=== PATIENT | male | born 1960 | race Caucasian/White ===

== ENCOUNTER 2023-12-09 15:27 | Outpatient (OUT) | payer SELFPAY | END 2023-12-09 15:28 | disposition home or self-care (01) | LOC: PST 15:28 | PROVIDERS: Visit Provider Urology | DX: Z01.818 Encounter for other preprocedural examination (principal); R33.9 Retention of urine, unspecified; D64.9 Anemia, unspecified; I25.10 Atherosclerotic heart disease of native coronary artery without angina pectoris; I12.9 Hypertensive chronic kidney disease with stage 1 through stage 4 chronic kidney disease, or unspecified chronic kidney disease; N18.9 Chronic kidney disease, unspecified; E11.22 Type 2 diabetes mellitus with diabetic chronic kidney disease ==

== ENCOUNTER 2023-12-19 07:04 | Day surgery (SDC) | payer MEDICARE, SELFPAY ==
[2023-12-19] VITALS (14 sets, daily range): BP systolic 132–175; BP diastolic 59–84; PULSE 68–94; RESP 15–21; TEMP 36–36.1; O2SAT 93–97; BMI 31.8
--- NOTE | 2023-12-19 07:00 | ECG_ITS ---
[facility] Test Date: 2023-12-19 Pat Name: MIKAYLA MORRIS Department: Room: - Gender: Male [employer]: : 1960 Requested By: JORGE HERNANDEZ Order Number: [id number] Reading MD: MAGDALENA LOPEZ Measurements Intervals [place] Rate: 71 P: 19 RI: 133 QRS: -65 QRSD: 143 T: 26 QT: 422 QTc: 459 Interpretive Statements SINUS RHYTHM RIGHT BUNDLE BRANCH BLOCK [120+ ms QRS DURATION, UPRIGHT V1, 40+ ms S IN I/aVL/V4/V5/V6] LEFT ANTERIOR FASCICULAR BLOCK [QRS AXIS <= -45, QR IN I, RS IN II] MINIMAL VOLTAGE CRITERIA FOR LVH, CONSIDER NORMAL VARIANT [MEETS CRITERIA IN ONE OF: R(aVL), S(V1), R(V5), R(V5/V6)+S(V1)] WARNING: DATA QUALITY MAY AFFECT INTERPRETATION No previous ECG available for comparison Electronically Signed On 12-19-2023 21:23:42 EST by MAGDALENA LOPEZ
--- OUTSIDE RECORDS SUMMARY | 2023-12-19 07:15 | XMS_ITS | CCD ---
Author Name Unknown Address [address] [place] [address] Organization [facility] Care Team Providers Care Screener Perfumer Name Role Phone Isis Rincon Perdomo Primary Care Provider Elijah Leon Primary Care Provider Jet Calvillo Unavailable Greyson Dominguez Primary Care Provider Elijah Leon Primary Care Provider [phone] Greyson Dominguez MD Primary Care Provider Greyson Dominguez MD Primary Care Provider Greyson Dominguez MD Primary Care Provider GREYSON DOMINGUEZ Primary Care Unavaila RANDY Mercado Attending Unavailab le Jet Calvillo DPM Unavailable Greyson Dominguez MD Primary Care Provider Greyson Dominguez MD Primary Care Provider Jet Calvillo DPM Unavailable Greyson Dominguez MD Primary Care Provider FATMATA COSBY Attending Unavailable GREYSON DOMINGUEZ Primary Care Unavaila FATMATA Burnette Admitting Unavailable FATMATA COSBY Attending Unavailable GREYSON DOMINGUEZ Primary Care Unavaila ble SHAFIEK, BOLES Admitting Unavailable SHAFIEK, BOLES Attending Unavailable ALBERTO, GREYSON BHATTI Primary Care Unavaila ble JET CALVILLO Referring Unavailable ALBERTO, GREYSON BHATTI Primary Care Unavaila ble [facility] Consulting Abdulkadir FAIRBANKS, RIANA LOPEZ Admitting Unavaila ble CODI, JOHNATHAN HILTON Attending Unavailable MIREYA, JORGE FERRIS Consulting Unavailable KUSURILEY, RAKESH LUCIA Consulting Unavailable SHAFIEK, BOLES Admitting Unavailable SHAFIEK, BOLES Attending Unavailable ALBERTO, GREYSON BHATTI Primary Care Unavaila ble SHAFIEK, BOLES Admitting Unavailable SHAFIEK, BOLES Attending Unavailable ALBERTO, GREYSON BHATTI Primary Care Unavaila ble SHAFIEK, BOLES Admitting Unavailable SHAFIEK, BOLES Attending Unavailable ALBERTO, GREYSON BHATTI Primary Care Unavaila ble SHAFIEK, BOLES Admitting Unavailable SHAFIEK, BOLES Attending Unavailable ALBERTO, GREYSON BHATTI Primary Care Unavaila ble SHAFIEK, BOLES Admitting Unavailable SHAFIEK, BOLES Attending Unavailable ALBERTO, GREYSON BHATTI Primary Care Unavaila ble KATHY, ASOK Referring Unavailable ALBERTO, GREYSON Primary Care Unavailable STOYA MAGDALENA~[id number], [facility] MAGDALENA~[id number] TANJA Attending Unavailable ALBERTO, GREYSON Primary Care Unavailable ALBERTO, GREYSON Primary Care Unavailable MAGDALENA MCCULLOUGH Attending Unavailable KATHY, ASOK Attending Unavailable ALBERTO, GREYSON Primary Care Unavailable Greyson Dominguez MD Primary Care Provider Greyson Dominguez MD Primary Care Provider CAROL SANON Attending Unavailabl DO PAUL Arguelles Emergency Provider [phone] GREYSON DOMINGUEZ Primary Care Provider [phone] DO PAUL HOWELL Emergency Provider GREYSON DOMINGUEZ Primary Care Provider [phone] DO CRISTIAN NYE Emergency Provider [phone] MD MARILIN BUCKLEY Other Provider Greyson Dominguez MD Primary Care Provider ZACHERY COOMBS Attending Unavailable BLAIR WILLINGHAM Admitting Unavailable ALBERTO, GREYSON Primary Care Unavailable BLADE, FLSAH C Consulting Unavailable BLADE, FLASH C Consulting Unavailable LEON, DEREN Consulting Unavailable LEON, DEREN Consulting Unavailable SAMAYOA-VINCENT, BRENDA E Consulting Unava ilable SAMAYOA-VINCENT, BRENDA E Consulting Unava ilable WUBISHET, TIN M Consulting Unavailable WUBISHET, TIN M Consulting Unavailable LEON, DEREN Referring Unavailable ALBERTO, GREYSON Primary Care Unavailable SUDHA MONSONUGBENGA F Referring Unavailable ALBERTO, GREYSON Primary Care Unavailable [facility], [facility] U Referring Unavailable ALBERTO, GREYSON Primary Care Unavailable ALBERTO, GREYSON Primary Care Unavailable Maureen HUITRONRA Admitting Unavailable NASREEN, MARCH U Attending Unavailable AMADO ALEXIS Referring Unavaila SHIN Rodriguez Consulting Unavailable SHIN EASON Consulting Unavailable URVASHI DONOVAN Consulting Unavailable URVASHI DONOVAN Consulting Unavailable DO JENSIE CORRALES Emergency Provider [phone] Zogolden DPJet Scott Unavailable Alberto GAMEZ, Greyson Bhatti Primary Care Provider PCP, NONE Referring Unavailable LOUIS POWER Attending Unavailable SHIN QUEEN Attending Unavailable GREYSON DOMINGUEZ Primary Care Unavaila anil Urban MD, Dr Farr Attending Physician [phone] Unavailable Primary Care Provider UnavailCRISTIAN Hu Attending Unavailable BESSIE, [facility] Primary Care Unavailable PAUL HOWELL Attending Unavailable PAUL HOWELL Primary Care Unavailable Micheal URBAN YORDAN Referring Unavailable URBANMicheal YORDAN Attending Unavailable URBANMicheal Attending Unavailable URBANMicheal Attending Unavailable URBAN L YORDAN Attending Unavailable URBANMicheal Attending Unavailable MARILIN BUCKLEY Attending Unavailable MARILIN BUCKLEY Referring Unavailable URBANMicheal Referring Unavailable URBANMicheal Attending Unavailable Micheal URBAN YORDAN Referring Unavailable URBANMicheal Attending Unavailable JENISE CORRALES Attending Unavailable CASH, HUM Primary Care Unavailable 2, SCRIPTING Attending Unavailable Daanthony, Elza Attending Unavailable SAUD BALDWIN Attending Unavailable EMELY Bean Attending Unavailable EMELY Bean Attending Unavailable EMELY Bean Attending Unavailable EMELY Bean Attending Unavailable MEGHA PARK Attending Unavailable MEGHA PARK Attending Unavailable MEGHA PARK Attending Unavailable MYA CARDENAS Attending Unavailable RICARDA, STEVEI A Primary Care Physician [phone] Ricarda, Itri A Unavailable Ricarda, Dr. Koroma A Primary Care Unavailable Dr. Koby Guillen Referring Unavailable Miki Bauer Attending Unavailable Jayme De Referring Unavailable Jayme De Attending Unavailable Dr. Lauren Chowdary Primary Care Unavailable Ricarda, Dr. Koroma A Primary Care Unavailable Micki Johnston Unavailable Unavailable Lauren Chowdary MD Primary Care Provider MIKI BAUER Attending Unavailable RICARDA, LAUREN A Primary Care Unavailable MIKI BAUER Attending Unavailable RICARDA, ITRI A Primary Care Unavailable JAYME DE Attending Unavailable RICARDA, LAUREN A Primary Care Unavailable MIKI BAUER Attending Unavailable RICARDA, STEVEI A Primary Care Unavailable NONE, XXXX Referring Unavailable Tanya Rubin X Attending Unavailable Scottie Bashar X Admitting Unavailable Kaden LOPSE Referring Unavailable Kaden OLPES Attending Unavailable Kaden LOPES Admitting Unavailable Akkina, Jose Referring Unavailable Akkina Jose Attending Unavailable Akkina, Jose Admitting Unavailable Al-Marrawi, Celid Yaser Attending Unavailabl e Al-Marrawi, Celid Yaser Attending Unavailabl e Al-Marrawi, Mhd Yaser Attending Unavailabl e Al-Marrawi, Mhd Yaser Admitting Unavailabl e Al-Marrawi, Mhd Yaser Referring Unavailabl e Al-Marrawi, Mhd Yaser Admitting Unavailabl e Al-Marrawi, Mhd Yaser Attending Unavailabl e Al-Marrawi, Mhd Yaser Attending Unavailabl e Al-Marrawi, Mhd Yaser Admitting Unavailabl e Kaden LOPES Attending Unavailable Corina RENNER Attending Unavailable Mark, Giang Consulting Unavailable William BAER Admitting Unavailable MD Padmaja Flores Consulting Unavailable Flores, Padmaja Consulting Unavailable Flores, Padmaja Consulting Unavailable Flores, Giang Consulting Unavailable Flores, Giang Consulting Unavailable Flores, Giang Consulting Unavailable Flores, Giang Consulting Unavailable Flores, Giang Consulting Unavailable Flores, Giang Consulting Unavailable Pako Moandrewhaf Consulting Unavailable MD Jayme De Consulting Unavailab le Traboulthea, Cosmef Consulting Unavailable Trabouldeepthii, Mourhaf Consulting Unavailable Trabouldeepthii, Mourhaf Consulting Unavailable Trabouldeepthii, Mourhaf Consulting Unavailable Traboulthea, Cosmef Consulting Unavailable Trabcara, Cosmef Consulting Unavailable Trabouldeepthii, Moandrewhaf Consulting Unavailable Jolene Gleason Attending Unavailable Kaden LOPES Attending Unavailable Paul Yanes Attending Unavailable Rebekah Patle Admitting Unavailable Akkina, Jose Consulting Unavailable MD Jose Cantu Consulting Unavailable Akkina, Jose Consulting Unavailable Akkina, Jose Consulting Unavailable Akkina, Jose Consulting Unavailable Akkina, Jose Consulting Unavailable Akkina, Jose Consulting Unavailable Akkina, Jose Consulting Unavailable Akkina, Jose Consulting Unavailable Rafi Castrejon Consulting Unavailable Masoud Castrejon Consulting Unavailable Lucía, Rafi S Consulting Unavailable Lucía, Rafi S Consulting Unavailable Blank, Rafi S Consulting Unavailable Blank, Rafi S Consulting Unavailable Blank, Rafi S Consulting Unavailable Blank, Rafi S Consulting Unavailable Blank, Rafi S Consulting Unavailable Lucía, Rafi Robles Consulting Unavailable Paul BENNETT Attending Unavailable Paul BENNETT Admitting Unavailable Rafi Blackman Consulting Unavailable DO Luisito KELLEY Admitting Unavailabl William Craig Attending Unavailable DO Rafi Blackman Consulting Unavailable BAKARI STOVER Consulting Unavailable Yehuda, Rafi Duffy Consulting Unavailable Blackman, Rafi T Consulting Unavailable Blackman, Rafi T Consulting Unavailable Blackman, Rafi T Consulting Unavailable Blackman, Rafi T Consulting Unavailable Blackman, Rafi T Consulting Unavailable Blackman, Rafi T Consulting Unavailable Blackman, Rafi T Consulting Unavailable Yehuda, Rafi Duffy Consulting Unavailable Giorgio Villasenor Attending Unavailable Brian Perla Attending Unavailabl e NONE, XXXX Referring Unavailable Al-Brian Quiñones Attending Unavailabl e Al-Marrazhanna, Brian Rivas Attending Unavailabl e KURUPMATEOEE K Admitting Unavailable KURUPMIKI K Attending Unavailable RICARDA, ITRI A Primary Care Unavailable KURUP MIKI K Admitting Unavailable KURUP, MIKI K Attending Unavailable LAUREN CHODWARY Primary Care Unavailable Allergies Allergy Classification Reported Allergen(s) Allergy Type Date of Onset Reaction(s) Facility Anti-Epileptic Agents (1 source) Phenytoin Drug Allergy 6 Low blood pressure, Rash, Unknown [facility] (20 sources) Phenytoin; Translations: [PHENYTOIN] Drug Allergy 6 Rash, Low blood pressure, Unknown, Unknown (qualifier value), Other [facility] (9 sources) Phenytoin; Translations: [PHENYTOIN SODIUM] Drug Allergy 5 [facility] (1 source) Phenytoin; Translations: [PHENYTOIN SODIUM EXTENDED] Drug Allergy 2 [facility] Repository (5 sources) Valproate; Translations: [DIVALPROEX] Drug Allergy 2 Unknown, Other [facility] (2 sources) Phenytoin; Translations: [Dilantin] Drug Allergy 2 Unknown [facility] Work Phone: (2 sources) Valproate; Translations: [Depakote] Drug Allergy 2 Unknown Dept of [facility] Work Phone: (1 source) Phenytoin Drug Allergy 2 [facility] Repository (13 sources) Valproate; Translations: [divalproex sodium] Drug Allergy Unknown (qualifier value) [facility] Medications Current Medications Medication Drug Class(es) Dates Sig (Normalized) Sig (Original) acetaminophen 325 mg oral tablet (20 sources) Start: 10-11-2023 take 2 tablets by mouth every six hours as needed acetaminophen 325 mg Tab 650 mg = 2 tab(s), Oral, q6hr, PRN Other (see comment), Refills(s) 0 Start Date: 10/11/23 Status: Ordered Start: 03-03-2023 take 2 tablets by mo uth every four hours as needed for pain acetaminophen 325 mg Tab 650 mg = 2 tab(s), Oral, q4hr, PRN Pain/Fever, Refills(s) 0 Start Date: 03/03/23 Status: Ordered Start: 12-12-2022 take 650 mg by mouth every six hours as needed for pain Acetaminophen Oral (discharge) [id number] RxNorm 2022-12-12 Oral 650 milligram every 6 hours prn fever or pain Active Start: 09-11-2022 End: 09-14-2022 take 4 g rectal route every twenty-four hours 650 mg, rectal, Every 4 hours PRN, general discomfort or temperature greater than 100.4 degrees F. *Do not exceed 4 grams in 24 hours*, Starting on Sat09/11/22 at 0338 Give DE if unable to administer by mouth or feeding tube. Start: 09-11-2022 End: 09-14-2022 take 4 g by mouth every twenty-four hours 650 mg, oral, Every 4 hours PRN, fever, general discomfort or temperature greater than 100.4 degrees F. May give rectal suppository if npo. *Do not exceed 4 grams in 24 hours*, Starting on Sat09/11/22 at 0338 Start: 09-11-2022 End: 09-14-2022 take 4 g by mouth every twenty-four hours 650 mg, oral, Every 4 hours PRN, general discomfort or temperature greater than 100.4 degrees F. May give rectal suppository if npo. *Do not exceed 4 grams in 24 hours*, Starting on Sat09/11/22 at 0338 Start: 09-10-2022 End: 09-10-2022 acetaminophen (Tylenol) tabl et 1,000 mg Start: 09-08-2022 take 2 capsules by m outh every six hours Acetaminophen (Tylenol) 325 mg Capsule Active 650 MG PO Q6H September 07, 2022 11:00pm Start: 05-02-2022 End: 06-29-2022 take 4 g rectal route every twenty-four hours 650 mg, rectal, Every 4 hours PRN, general discomfort or temperature greater than 100.4 degrees F. *Do not exceed 4 grams in 24 hours*, Starting on Sat05/02/22 at 2144 Give DE if unable to administer by mouth or feeding tube. Start: 05-02-2022 End: 06-29-2022 take 4 g by mouth every twenty-four hours 650 mg, oral, Every 4 hours PRN, fever, general discomfort or temperature greater than 100.4 degrees F. May give rectal suppository if npo. *Do not exceed 4 grams in 24 hours*, Starting on Sat05/02/22 at 2144 Start: 05-02-2022 End: 06-29-2022 take 4 g by mouth every twenty-four hours 650 mg, oral, Every 4 hours PRN, general discomfort or temperature greater than 100.4 degrees F. May give rectal suppository if npo. *Do not exceed 4 grams in 24 hours*, Starting on Sat05/02/22 at 2144 Start: 05-02-2022 End: 05-02-2022 take 650 mg by mouth once 650 mg, oral, Once, On Sat at 0025, For 1 dose Start: 01-09-2022 End: 01-17-2022 take 1 tablet by mouth every four hours as needed for pain and headache 650 mg, Oral, Every 4 hours PRN, mild pain, fever 100.4 F or greater, headaches, Starting on Sat01/09/22 at 1634 Start: 10-19-2020 End: 10-22-2020 take 1 tablet by mouth every four hours as needed 650 mg, Oral, Every 4 hours PRN, mild pain, fever 100.4 F or greater, headaches, Starting Sat10/19/20 at 1853 Start: 10-19-2020 End: 10-19-2020 acetaminophen (TYLENOL) tabl et 975 mg Start: 07-26-2020 End: 08-06-2020 take 1 tablet by mouth every four hours as needed 650 mg, Oral, Every 4 hours PRN, mild pain, fever 100.4 F or greater, headaches, Starting Sat07/26/20 at 1405 take 1 tablet by angela th every eight hours for pain acetaminophen (Tylenol 8 HOUR) 650 mg ER tablet Take 650 mg by mouth every 8 (eight) hours if needed for mild pain. Do not crush, chew, or split. 0 Active End: 01-17-2022 take 2 tablets by mouth every six hours as needed for pain and fever acetaminophen (TYLENOL) 325 MG tablet Take 650 mg by mouth every 6 (six) hours as needed for pain or fever . 0 Active acetaminophen 325 mg / HYDROcodone bitartrate 5 mg oral tablet (20 sources) Opioid Agonist Start: 03-03-2023 End: 05-03-2023 [place] 325 mg-5 mg oral tablet 1 tab(s), Oral, q4hr for pain for 3 day(s), 12 tab(s), Refill(s) 0 Start Date: 03/03/23 Stop Date: 03/06/23 Status: Ordered Start: 12-12-2022 take 1 tablet by angela th every four hours as needed for pain Hydrocodone-Acetaminophen Oral 5 mg-325 mg (discharge) [id number] RxNorm 2022-12-12 Oral 1 tablet every 4 hours prn pain Active Start: 09-10-2022 End: 09-14-2022 take 1 tablet by mouth every six hours as needed 1 tablet, oral, Every 6 hours PRN, sever e pain, moderate pain, Starting on 09/10/22 at 1310 Start: 09-08-2022 End: 09-14-2022 take 1 tablet by mouth every four hours Hydrocodone-Acetaminophen ([place]) 5-325 mg Tablet Active 1 TAB PO Q4H September 07, 2022 11:00pm Start: 05-04-2022 End: 05-16-2022 take 1 tablet by mouth twice daily as needed for pain 1 tablet, oral, 2 times daily PRN, sever e pain, Starting on Sat05/04/22 at 1547 Start: 05-15-2021 End: 05-02-2022 Start: 01-05-2021 HYDROcodone-ac etaminophen ([place]) 5-325 mg tablet Start: 08-15-2020 End: 08-15-2020 take 1 tablet by mouth every four hours as needed HYDROcodone-acetaminophen (NORCO) 5-325 mg per tablet 1 tablet Start: 07-26-2020 End: 01-17-2022 take 1 tablet by mouth every six hours for pain HYDROcodone-acetaminophen ([place]) 5-325 mg tablet Indications: Amputation, below knee, unilateral, traumatic, right, initial encounter Take 1 tablet by mouth every 6 (six) hours if needed for moderate pain. 20 tablet 0 05/15/2021 Active End: 10-17-2020 take 1 tablet by mouth every twenty-four hours HYDROcodone-acetaminophen (NORCO) 5-325 mg per tablet 1 Unspecified daily . 0 10/17/2020 Discontinued (Error) acetaminophen 325 mg / oxyCODONE hydrochloride 5 mg oral tablet (17 sources) Opioid Agonist Start: 01-17-2022 End: 09-10-2022 take 1 tablet by mouth every six hours as needed for pain oxyCODONE-acetaminophen (PERCOCET) 5-325 mg per tablet Take 1 tablet by mouth every 6 (six) hours as needed for pain . 0 01/17/2022 Active Start: 01-17-2022 oxyCODONE-acet aminophen (PERCOCET) 5-325 mg per tablet Start: 01-17-2022 aluminum hydroxide 80 mg/ml / magnesium hydroxide 80 mg/ml / simethicone 8 mg/ml oral suspension (5 sources) Start: 09-08-2022 take 1 mL by mouth once daily Alum-Mag Hydroxide-Simeth (Mag-Al Plus Extra Strength) 400-400-40 mg/5 mL Suspension Active 30 ML PO Daily September 07, 2022 11:00pm Start: 01-09-2022 End: 01-17-2022 take 30 mL by mouth every four hours as needed 30 mL, Oral, Every 4 hours PRN, indigestion, Starting on Sat01/09/22 at 1634 Start: 07-27-2020 End: 08-06-2020 aluminum-magnesium hydroxide-simethicone (MAALOX PLUS) 200-200-20 mg/5 mL suspension 30 mL amLODIPine 5 mg oral tablet (20 sources) Dihydropyridine Calcium Channel Alan Start: 09-08-2022 take 1 tablet by mouth once daily Amlodipine (Norvasc) 5 mg Tablet Active 5 MG PO Daily September 07, 2022 11:00pm Start: 05-02-2022 End: 06-29-2022 take 10 mg by mouth once daily 10 mg, oral, Daily RT, First dose on Sat05/03/22 at 0800 Start: 08-15-2020 End: 08-15-2020 amLODIPine (NORVASC) tablet 10 mg Start: 08-04-2020 End: 09-10-2022 take 1 tablet by mouth once daily amLODIPine (Norvasc) 10 mg tablet Take 10 mg by mouth 1 (one) time each day. 0 08/07/2020 09/10/2022 Discontinued (Pharmacy Med Rec) amoxicillin 500 mg oral capsule (6 sources) Penicillin-class Antibacterial Start: 10-11-2023 End: 10-21-2023 take 1 capsule by mouth three times daily amoxicillin 500 mg Cap 500 mg = 1 cap(s), Oral, TID, X 10 day(s), Refills(s) 0 Start Date: 10/11/23 Stop Date: 10/21/23 Status: Ordered Start: 03-29-2022 amoxicillin (A MOXIL) 500 MG capsule Artificial Tears (12 sources) Start: 03-03-2023 Artificial Tea rs 1 drop(s), OPTH, QID, Refill(s) 0 Start Date: 03/03/23 Status: Ordered aspirin 81 mg delayed release oral tablet (20 sources) Platelet Aggregation Inhibitor, Nonsteroidal Anti-inflammatory Drug Start: 03-03-2023 take 1 tablet by mouth once daily aspirin 81 mg Oral EC Tab 81 mg = 1 tab(s), Oral, Daily, Refills(s) 0 Start Date: 03/03/23 Status: Ordered Start: 12-12-2022 take 81 mg by mouth once daily Aspirin Oral (discharge) [id number] RxNorm 2022-12-12 Oral 81 milligram daily Active Start: 09-08-2022 take 81 mg by mouth once Aspir in Active 81 MG PO Once September 07, 2022 11:00pm Start: 05-02-2022 End: 06-29-2022 take 81 mg by mouth once daily 81 mg, oral, Daily, Fir st dose on Sat05/03/22 at 0900 Do not crush, chew, or split. Start: 01-09-2022 End: 01-17-2022 take 81 mg by mouth once daily 81 mg, Oral, Daily, Fir st dose on Sat01/09/22 at 1700 DO NOT CRUSH OR CHEW. Start: 10-31-2020 aspirin 81 mg chewable tablet aspirin 81 mg chewable tablet 81 mg. 0 10/31/2020 Active 0 10/31/2020 Active atorvastatin 80 mg oral tablet (20 sources) HMG-CoA Reductase Inhibitor Start: 03-01-2023 take 1 tablet by mouth at bedtime atorvastatin 80 mg Tab 80 mg = 1 tab(s), Oral, Bedtime, # 90 tab(s), Refills(s) 0 Start Date: 03/01/23 Status: Ordered Start: 12-12-2022 take 80 mg by mouth once daily Lipitor Oral (discharge) [id number] RxNorm 2022-12-12 Oral 80 milligram daily Active Start: 01-09-2022 End: 01-17-2022 take 80 mg by mouth once daily 80 mg, Oral, Nightly, F irst dose on Sat01/09/22 at 2100 Start: 01-03-2021 take 1 tablet by angela th at bedtime Atorvastatin (Lipitor) 80 mg Tablet Active 80 MG PO Bedtime September 07, 2022 11:00pm Start: 10-19-2020 End: 10-22-2020 take 80 mg by mouth once daily 80 mg, Oral, Nightly, F irst dose on Sat10/19/20 at 2100 Start: 08-15-2020 End: 08-15-2020 atorvastatin (LIPITOR) table t 20 mg End: 11-12-2023 take 1 tablet by mouth once daily atorvastatin (Lipitor) 10 mg tablet Take 1 tablet (10 mg) by mouth once daily. 0 11/12/2023 Discontinued (Other) End: 08-15-2020 take 1 tablet by mouth once daily atorvastatin (LIPITOR) 20 MG tablet Take 20 mg by mouth daily. 0 08/15/2020 Discontinued (Error) bisacodyl 10 mg rectal suppository (20 sources) Stimulant Laxative Start: 10-06-2023 take 10 mg rectal route once daily as needed for constipation Dulcolax 10 mg Supp 10 mg = 1 supp, Rectal, Daily, PRN for constipation, # 10 supp, Refills(s) 0 Start Date: 10/06/23 Status: Ordered Start: 01-18-2022 End: 01-18-2022 take 30 mL rectal route once bisacodyL (FLEET BISACODY L) 10 mg/30 mL enema Insert 30 mL (10 mg total) into the rectum 1 (one) time for 1 dose. 30 mL 0 01/18/2022 01/18/2022 Start: 07-27-2020 End: 08-06-2020 bisacodyL (DULCOLAX) supposi tory 10 mg take 10 mg rectal ro ludwin every twenty-four hours as needed bisacodyL (FLEET) 10 mg/30 mL Enem Insert 10 mg into the rectum once as needed . 0 Active blood-glucose meter Misc (20 sources) Start: 08-06-2020 blood-glucose meter Misc Check your sugars up to 4 times a day . 1 each 0 08/06/2020 Start: 08-06-2020 blood-glucose meter Misc Check your sugars up to 4 times a day . 1 each 0 08/06/2020 Active carboxymethylcellulose sodium 10 mg/ml ophthalmic solution (3 sources) Start: 09-08-2022 Carboxymethylcellulose Sodium Active 1 DRP OPTH 2 times per day September 07, 2022 11:00pm cefdinir 300 mg oral capsule (1 source) Cephalosporin Antibacterial Start: 03-04-2023 End: 03-16-2023 take 1 capsule by mouth every twelve hours cefdinir 300 mg Cap 300 mg = 1 cap(s), Oral, q12hr, X 12 day(s), # 24 cap(s), Refills(s) 0 Start Date: 03/04/23 Stop Date: 03/16/23 Status: Ordered cephalexin 500 mg oral capsule (20 sources) Cephalosporin Antibacterial Start: 10-15-2021 End: 10-22-2021 take 1 capsule by mouth four times daily cephalexin (KEFLEX) 500 mg capsule Take 1 capsule (500 mg total) by mouth 4 (four) times a day for 7 days. 28 each 0 10/15/2021 10/22/2021 Active Start: 10-22-2020 End: 11-02-2020 take 1 capsule by mouth twice daily cephALEXin (KEFLEX) 500 MG capsule Take 1 (one) capsule (500 mg total) by mouth 2 (two) times a day for 11 days . 22 capsule 0 10/22/2020 11/02/2020 Active Start: 10-22-2020 End: 10-22-2020 cephALEXin (KEFLEX) capsule 500 mg Start: 10-17-2020 End: 10-24-2020 take 1 capsule by mouth three times daily cephALEXin (KEFLEX) 500 MG capsule Take 1 (one) capsule (500 mg total) by mouth 3 (three) times a day for 7 days . 21 capsule 0 10/17/2020 10/19/2020 Discontinued Start: 08-06-2020 End: 09-05-2020 take 1 capsule by mouth four times daily cephALEXin (KEFLEX) 500 MG capsule Take 1 (one) capsule (500 mg total) by mouth 4 (four) times a day . 120 capsule 0 08/06/2020 09/05/2020 Active ciprofloxacin 500 mg oral tablet (2 sources) Quinolone Antimicrobial Start: 10-11-2023 End: 10-21-2023 take 1 tablet by mouth twice daily ciprofloxacin 500 mg Tab 500 mg = 1 tab(s), Oral, BID, X 10 day(s), # 20 tab(s), Refills(s) 0 Start Date: 10/11/23 Stop Date: 10/21/23 Status: Ordered clotrimazole 10 mg/ml topical cream (1 source) Azole Antifungal Start: 03-01-2023 End: 03-06-2023 clotrimazole Top 1% Crm 1 manuel, Topical, BID, 60 gram, Refill(s) 0 Start Date: 03/01/23 Stop Date: 03/06/23 Status: Ordered cyanocobalamin, vitamin B-12, (VITAMIN B-12 ORAL) (20 sources) take 1 tablet by mouth once daily cyanocobalamin, vitamin B-12, (VITAMIN B-12 ORAL) Take 1 tablet by mouth daily . 0 Active take 1 tablet by mouth once marlyn y cyanocobalamin, vitamin B-12, (VITAMIN B-12 ORAL) Take 1 tablet by mouth daily . 0 Suspended cyclobenzaprine hydrochloride 5 mg oral tablet (11 sources) Muscle Relaxant Start: 05-05-2023 take 1 tablet by mouth twice daily as needed for muscle spasms cyclobenzaprine 5 mg Tab 5 mg, Oral, BID, PRN Spasm, Refills(s) 0 Start Date: 05/05/23 Status: Ordered take 0.5 tablet by m out three times daily as needed for muscle spasms cyclobenzaprine (Flexeril) 10 mg tablet Take 0.5 tablets (5 mg) by mouth 3 times a day as needed for muscle spasms. 0 Active Cymbalta 30 mg Cap-DR (12 sources) Start: 03-01-2023 take 1 capsule by mouth once daily Cymbalta 30 mg Cap-DR = 1 cap(s), Oral, Daily, Refills(s) 0 Start Date: 03/01/23 Status: Ordered Cymbalta 60 mg Cap-DR (12 sources) Start: 03-01-2023 take 1 capsule by mouth once daily Cymbalta 60 mg Cap-DR = 1 cap(s), Oral, Daily, (do not crush or chew), # 30 cap(s), Refills(s) 0 Start Date: 03/01/23 Status: Ordered dextran 70 1 mg/ml / glycerin 2 mg/ml / hypromellose 3 mg/ml ophthalmic solution (1 source) Plasma Volume Controls Project Engineer, Non-Standardized Chemical Allergen Start: 03-03-2023 take 1 drop(s) into the eye(s) four times daily artificial tears, dextran-hypomel- glycerin, 0.1-0.3-0.2 % ophthalmic solution 1 drop(s), OPTH, QID, Refill(s) 0 0 03/03/2023 Active diclofenac sodium 0.01 mg/mg topical gel (19 sources) Nonsteroidal Anti-inflammatory Drug Start: 01-18-2022 End: 09-10-2022 diclofenac (VOLTAREN) 1 % topical gel docusate sodium 100 mg oral capsule (20 sources) Start: 03-01-2023 take 1 capsule by mouth twice daily docusate sodium 100 mg Cap 100 mg = 1 cap(s), Oral, BID, # 20 cap(s), Refills(s) 0 Start Date: 03/01/23 Status: Ordered Start: 12-12-2022 take 100 mg by mouth twice kayla ly Docusate Sodium Oral (discharge) [id number] RxNorm 2022-12-12 Oral 100 milligram 2 times per day Active Start: 09-08-2022 End: 09-14-2022 take 100 mg by mouth twice daily as needed for constipation 100 mg, oral, 2 times daily PRN, constipation prevention, Starting on Sat09/11/22 at 0338 Bowel Regimen - for prevention of constipation. Start: 05-31-2022 End: 06-29-2022 take 100 mg by mouth twice daily for constipation 100 mg, oral, 2 times daily, First dose (after last modification) on Sat05/31/22 at 0900 Bowel Regimen - for prevention of constipation. take 1 capsule by mo uth in the morning docusate sodium (Colace) 50 mg capsule Take 50 mg by mouth in the morning and 50 mg before bedtime. 0 Active doxycycline hyclate 100 mg oral tablet (4 sources) Tetracycline-class Drug Start: 07-03-2021 End: 05-02-2022 take 1 tablet by mouth twice daily doxycycline hyclate (VIBRA-TABS) 100 MG tablet Take 1 (one) tablet (100 mg total) by mouth 2 (two) times a day for 10 days . 20 tablet 0 01/17/2022 01/27/2022 Active DULoxetine 60 mg delayed release oral capsule (20 sources) Serotonin and Norepinephrine Reuptake Inhibitor Start: 03-01-2023 take 1 capsule by mouth once daily DULoxetine (Cymbalta) [address] capsule = 1 cap(s), Oral, Daily, (do not crush or chew), # 30 cap(s), Refills(s) 0 0 03/01/2023 Active Start: 12-12-2022 take 60 mg by mouth twice marlyn y Duloxetine Oral Delayed Release (discharge) [id number] RxNorm 2022-12-12 Oral Delayed Release 60 milligram 2 times per day Active Start: 05-02-2022 End: 06-29-2022 take 90 mg by mouth once daily 90 mg, oral, Nightly, F irst dose on Sat05/02/22 at 2200 Do not crush or chew. Start: 01-09-2022 End: 01-17-2022 take 90 mg by mouth at bedtime 90 mg, Oral, At bedtime , First dose on Sat01/09/22 at 2100 DO NOT CRUSH OR CHEW. Start: 12-31-2021 take 1 capsule by mo sdh once daily DULoxetine (Cymbalta) [address] capsule = 1 cap(s), Oral, Daily, Refills(s) 0 0 03/01/2023 Active End: 11-12-2023 take 1 capsule by mouth in the morning DULoxetine (Cymbalta) [address] capsule Take 20 mg by mouth in the morning and 20 mg before bedtime. Do not crush or chew. . 0 11/12/2023 Discontinued (Other) End: 05-02-2022 take 1 capsule by mouth once daily Cymbalta 60 MG Oral Capsule Delayed Release Particles TAKE 1 CAPSULE Daily Quantity: 0 Refills: 0 Ordered: 25-Apr-2023 DO Active DULoxetine 30 mg CDRS Take 30 mg by mouth at bedtime Along with 60 mg to make 90mg at bedtime . 0 Active End: 09-10-2022 take 3 capsules by mouth once daily DULoxetine (Cymbalta) [address] capsule Take 90 mg by mouth every night. 0 09/10/2022 Discontinued (Pharmacy Med Rec) ferrous sulfate 325 mg delayed release oral tablet (20 sources) Start: 05-05-2023 take 1 tablet by mouth once daily ferrous sulfate 325 mg oral enteric coated tablet 325 mg, Oral, Daily, Refills(s) 0 Start Date: 05/05/23 Status: Ordered Start: 05-03-2022 End: 06-29-2022 take 325 mg by mouth once daily at breakfast 325 mg, oral, Daily with breakfast, First dose on Blanca 05/03/22 at 0800 Do not crush, chew, or split. Indications: iron deficiency anemia Start: 01-14-2022 End: 02-26-2022 take 1 tablet by mouth once daily ferrous sulfate 325 (65 FE) MG tablet Take 1 tablet by mouth daily . 0 01/17/2022 Active End: 09-10-2022 take 1 tablet by mouth once daily ferrous sulfate 325 mg (65 mg iron) tablet Indications: iron deficiency anemia Take 65 mg by mouth 1 (one) time each day. 0 09/10/2022 Discontinued (Pharmacy Med Rec) fosfomycin 3000 mg powder for oral solution (1 source) Start: 04-30-2023 End: 04-30-2023 fosfomycin 3 g Oral Pwdr 3 gm, 1 EA, Oral, Once, 1 EA, Refill(s) 0, Give 1 dose on 04/30/2023 Start Date: 04/30/23 Stop Date: 04/30/23 Status: Ordered gabapentin 300 mg oral capsule (20 sources) Anti-epileptic Agent Start: 03-01-2023 take 1 capsule by mouth once daily at bedtime gabapentin 300 mg Cap 300 mg = 1 cap(s), Oral, Once a day (at bedtime), # 30 cap(s), Refills(s) 0 Start Date: 03/01/23 Status: Ordered Start: 05-06-2022 End: 05-18-2022 take 300 mg by mouth three times daily 300 mg, oral, 3 times daily, First dose (after last modification) on 05/06/22 at 2100 Start: 05-15-2021 End: 11-12-2023 take 100 mg by mouth once daily 100 mg, oral, Daily, F irst dose on 05/19/22 at 0900 Start: 10-22-2020 End: 09-14-2022 take 300 mg by mouth at bedtime Gabapentin Active 300 MG PO Bedtime September 07, 2022 11:00pm Start: 10-19-2020 End: 10-21-2020 take 300 mg by mouth every eight hours 300 mg, Oral, Every 8 hours scheduled, First dose on Sat10/19/20 at 2200 Start: 08-15-2020 End: 08-15-2020 gabapentin (NEURONTIN) capsu le 300 mg Start: 07-30-2020 End: 10-22-2020 gabapentin (NEURONTIN) 300 M G capsule Take 1 (one) capsule (300 mg total) by mouth every 8 (eight) hours (Days supply per fill: 30) . 90 capsule 0 08/06/2020 10/22/2020 Discontinued (Reorder) Gabapentin 300 M G TABS TAKE 1 TABLET Bedtime Quantity: 0 Refills: 0 Ordered: 25-Apr-2023 DO Active take 1 capsule by [facility] at bedtime gabapentin (NEURONTIN) 300 MG capsule Take 300 mg by mouth at bedtime . 0 Active glipiZIDE er 10 mg 24 hr extended release oral tablet (20 sources) Sulfonylurea Start: 12-31-2021 glipiZIDE (GLU COTROL XL) 10 mg 24 hr tablet Start: 01-03-2021 End: 09-10-2022 take 1 tablet by mouth once daily glipiZIDE XL (Glucotrol XL) 10 mg 24 hr tablet Take 10 mg by mouth 1 (one) time each day. 0 01/03/2021 09/10/2022 Discontinued (Pharmacy Med Rec) Start: 01-03-2021 glipiZIDE XL ( Glucotrol XL) 10 mg 24 hr tablet Start: 08-06-2020 End: 08-06-2020 take 1 tablet by mouth once daily in the morning glipiZIDE (GLUCOTROL XL) 10 MG 24 hr tablet Take 1 (one) tablet (10 mg total) by mouth every morning . 30 tablet 0 08/06/2020 08/06/2020 Discontinued (Stop Taking at Discharge) Glycerin (Adult) Suppository (discharge) (1 source) Start: 12-12-2022 Glycerin (Adult) Suppository (discharge) 0 RxNorm 2022-12-12 Suppository 1 suppository daily prn constipation Active 12 hr guaiFENesin 600 mg extended release oral tablet (18 sources) End: 09-10-2022 take 1 tablet by mouth twice daily as needed for congestion, then take 1 tablet by mouth every twelve hours as needed for congestion guaiFENesin (MUCINEX) 600 mg 12 hr tablet Take 600 mg by mouth 2 (two) times a day as needed for congestion . 0 Active hydrocortisone 10 mg/ml topical cream (18 sources) Corticosteroid End: 09-10-2022 hydrocortisone 1 % cream Apply topically 2 (two) times a day . 0 Active hypromellose 25 mg/ml ophthalmic solution (1 source) Start: 12-12-2022 take 1 drop(s) into the eye(s) twice daily as needed Artificial Tear (Gonioscopic) Ophthalmic Drops (discharge) [id number] RxNorm 2022-12-12 Ophthalmic Drops 1 drop 2 times per day prn dry eyes Active NovoLog (20 sources) Insulin Analog Start: 05-05-2023 NovoLog 6 unit(s), SubCutaneous, TIDAC, Hold for glucose less than 150, Refills(s) 0 Start Date: 05/05/23 Status: Ordered Start: 05-05-2023 NovoLog 6 unit (s), SubCutaneous, TIDAC, Refills(s) 0 Start Date: 05/05/23 Status: Ordered Start: 12-12-2022 Insulin Aspart Subcutaneous (discharge) [id number] RxNorm 2022-12-12 Subcutaneous 0 6 unites before meals/3x daily Active Parameters: 6 unites before meals/3x daily Start: 09-11-2022 End: 09-14-2022 0-14 Units, subcutaneous, 3 times daily with meals, First dose on Sat09/11/22 at 0800 Allow 4 hours between insulin aspart (NovoLOG) doses unless cleared by physician. Glucose results greater than 30 minutes old are considered invalid for administration of sliding scale or mealtime insulin. BG < 60 instructions: follow hypoglycemia protocol BG 60-150 instructions: 0 BG 151-200: 4 BG 201-250: 6 BG 251-300: 8 BG 301-350: 10 BG 351-400: 12 BG 401-450: 14 BG > 450 instructions: call MD Start: 09-11-2022 End: 09-14-2022 0-7 Units, subcutaneous, Nig htly, First dose on Sat09/11/22 at 0345 Bedtime average dose regimen (8 pm-12 am). Allow 4 hours between insulin aspart (NovoLOG) doses unless cleared by physician. Glucose results greater than 30 minutes old are considered invalid for administration of sliding scale or mealtime insulin. BG < 60 instructions: follow hypoglycemia protocol BG 60-150 instructions: 0 BG 151-200: 0 BG 201-250: 3 BG 251-300: 4 BG 301-350: 5 BG 351-400: 6 BG 401-450: 7 BG > 450 instructions: call Start: 09-10-2022 End: 09-11-2022 insulin aspart (NovoLOG) 100 unit/mL (3 mL) injection 0-6 Units Start: 09-08-2022 Insulin Aspart U-100 (Novolog Penfill U-100 Insulin) 100 unit/mL Cartridge Active 0 - 12 UNIT SQ Before meals and at bedtime September 07, 2022 11:00pm sliding scale coverage Start: 05-02-2022 End: 06-29-2022 0-14 Units, subcutaneous, 3 times daily with meals, First dose on Sat05/02/22 at 2200 Allow 4 hours between insulin aspart (NovoLOG) doses unless cleared by physician. Glucose results greater than 30 minutes old are considered invalid for administration of sliding scale or mealtime insulin. BG < 60 instructions: follow hypoglycemia protocol BG 60-150 instructions: 0 BG 151-200: 4 BG 201-250: 6 BG 251-300: 8 BG 301-350: 10 BG 351-400: 12 BG 401-450: 14 BG > 450 instructions: call Start: 05-02-2022 End: 06-29-2022 0-7 Units, subcutaneous, Nig htly, First dose on Sat05/02/22 at 2200 Bedtime average dose regimen (8 pm-12 am). Allow 4 hours between insulin aspart (NovoLOG) doses unless cleared by physician. Glucose results greater than 30 minutes old are considered invalid for administration of sliding scale or mealtime insulin. BG < 60 instructions: follow hypoglycemia protocol BG 60-150 instructions: 0 BG 151-200: 0 BG 201-250: 3 BG 251-300: 4 BG 301-350: 5 BG 351-400: 6 BG 401-450: 7 BG > 450 instructions: call Start: 03-14-2022 NovoLOG U-100 Insulin aspart 100 unit/mL injection Inject under the skin See administration instructions. Per Sliding Scale before meals and bedtime: 000-159 = 0 units 160-199 = 2 units 200-249 = 4 units 250-299 = 6 units 300-349 = 8 units 350-399 = 10 units If over 400 = 12 units and call PA 0 03/14/2022 Active Start: 03-14-2022 Start: 02-17-2022 NovoLOG U-100 Insulin aspart 100 unit/mL injection Insulin Glargine (20 sources) Insulin Analog Start: 10-11-2023 inject 10 [IU] by subcutaneous injection once daily insulin glargine 10 unit(s), SubCutaneous, Daily, Refills(s) 0 Start Date: 10/11/23 Status: Ordered Start: 10-11-2023 End: 10-11-2023 insulin glargine 100 units/m L SubQ Kaitlyn 10 mL 10 unit(s) = 0.1 mL, Injection-Insulin, SubCutaneous, Start date 10/11/23 9:00:00 AM EST, 10/06/23 11:04:00 EST Start Date: 10/11/23 Stop Date: 10/11/23 Status: Completed Start: 05-05-2023 inject 10 [IU] by gan bcutaneous injection once daily insulin glargine (Lantus U-100 Insulin) 100 unit/mL injection 10 unit(s), SubCutaneous, Daily, Refills(s) 0 0 05/05/2023 Active Start: 05-05-2023 inject 10 [IU] by gan bcutaneous injection once daily Lantus 100 units/mL Injection-Insulin 10 unit(s), SubCutaneous, Daily, Refills(s) 0 Start Date: 05/05/23 Status: Ordered Start: 03-01-2023 inject 10 [IU] by gan bcutaneous injection once daily Lantus Solostar Pen 100 units/mL subcutaneous solution 10 unit(s), SubCutaneous, Daily, May uptitrate as tolerated - prior dosing was 65u daily, # 15 mL, Refills(s) 3 Start Date: 03/01/23 Status: Ordered Start: 12-12-2022 Insulin Glargi ne Subcutaneous 100 unit/mL (discharge) [id number] RxNorm 2022-12-12 Subcutaneous 0 65 units every morning Active Parameters: 65 units every morning Start: 09-08-2022 inject 55 [IU] by gan bcutaneous injection once daily in the morning Insulin Glargine Active 55 UNIT SQ Every morning September 07, 2022 11:00pm Start: 01-15-2022 End: 01-17-2022 insulin glargine (LANTUS) in jection 24 Units Start: 01-09-2022 End: 01-15-2022 22 Units, Subcutaneous, Nigh tly, First dose on Sat01/09/22 at 2100 Do not hold basal insulin without notifying physician. If patient NPO and BG < 100 before procedure, administer half of the glargine insulin (Lantus) dose; if BG is >100 administer full dose. Do not mix with other insulins in a syringe. Do NOT hold basal insulin without notifying physician Start: 10-22-2020 End: 05-02-2022 insulin glargine (Lantus Kaitlyn ostar U-100 Insulin) 100 unit/mL (3 mL) injection pen Inject 22 Units under the skin daily. 0 10/22/2020 Active Start: 10-22-2020 End: 01-15-2022 insulin glargine (Basaglar K wikPen U-100 Insulin) 100 unit/mL (3 mL) InPn Inject 20 (twenty) Units under the skin nightly . 6 mL 0 10/22/2020 01/15/2022 Discontinued Start: 10-19-2020 End: 10-22-2020 insulin glargine (LANTUS) in jection 20 Units Start: 08-15-2020 End: 08-15-2020 insulin glargine (LANTUS) in jection 50 Units Start: 08-06-2020 End: 10-22-2020 inject 50 [IU] by subcutaneous injection once daily, then inject 100 [IU] by subcutaneous injection insulin glargine (Basaglar KwikPen U-100 Insulin) 100 unit/mL (3 mL) InPn Inject 50 (fifty) Units under the skin nightly . 15 mL 0 08/06/2020 10/22/2020 Discontinued (Reorder) Start: 07-26-2020 End: 08-06-2020 50 Units, Subcutaneous, Nigh tly, First dose on Sat07/26/20 at 2100 Do not hold basal insulin without notifying physician. If patient NPO and BG < 100 before procedure, administer half of the glargine insulin (Lantus) dose; if BG is >100 administer full dose. Do not mix with other insulins in a syringe. Do NOT hold basal insulin without notifying physician End: 08-06-2020 insulin glargine (Lantus,Chayo glee) 100 unit/mL injection Inject 55 Units under the skin 1 (one) time each day. 0 Active End: 07-26-2020 inject 30 [IU] by subcutaneous injection once daily insulin glargine (LANTUS) 100 unit/mL injection Inject 30 Units under the skin nightly. 0 07/26/2020 Discontinued (Error) insulin isophane, human 70 unt/ml / insulin, regular, human 30 unt/ml injectable suspension (1 source) Insulin insulin NPH and regular human (NovoLIN) 100 unit/mL (70-30) injection Inject under the skin 2 (two) times a day before meals. 0 Active isopropyl alcohol 0.7 ml/ml medicated pad (20 sources) Start: 0 alcohol swabs PadM Check your sugars up to 4 times a day . 100 each 11 08/06/2020 Active 24 hr isosorbide mononitrate 30 mg extended release oral tablet (13 sources) Nitrate Vasodilator Start: 3 take 1 tablet by mouth once daily in the morning isosorbide mononitrate 30 mg ER Tab 30 mg = 1 tab(s), Oral, qAM, # 30 tab(s), Refills(s) 0 Start Date: 03/26/23 Status: Ordered isosorbide dinitrate 30 mg oral tablet (1 source) Nitrate Vasodilator End: 4 isosorbide dinitrate (Isordil) 30 mg tablet Take 30 mg by mouth in the morning and 30 mg at noon and 30 mg in the evening and 30 mg before bedtime. 0 11/12/2023 Discontinued (Other) lamoTRIgine 25 mg oral tablet (9 sources) Mood Stabilizer, Anti-epileptic Agent Start: 3 take 25 mg by mouth twice daily lamotrigine 25 mg, Oral, BID, Refills(s) 0 Start Date: 10/06/23 Status: Ordered Lidocaine (20 sources) Antiarrhythmic, Amide Local Anesthetic Start: lidocaine 4% patch 1 patch(es), Topical, BID, Refill(s) 0 Start Date: 03/01/23 Status: Ordered Start: 12-12-2022 Lidocaine Topi franky Patch 4 % (discharge) [id number] RxNorm 2022-12-12 Topical Patch 0 apply 1 patch daily to lower back for pain Active Parameters: apply 1 patch daily to lower back for pain Start: 09-11-2022 End: 09-14-2022 1 application, Topical, As needed, mild pain, Starting on Sat09/11/22 at 0338 Apply as needed prior to IV initiation. Apply 30 minutes prior to procedure, but not more than 1 hour prior to procedure. Max dose 2.5 grams of cream per application site. Max application time 4 hours. Start: 09-10-2022 End: 09-14-2022 apply 1 dose topically once daily 1 patch, topical (to p), Administer over 12 Hours, Daily, First dose on 09/10/22 at 1315 Apply to affected area Start: 09-08-2022 apply 1 dose topically once da ashish Lidocaine Active 1 PATCH TOP Daily September 07, 2022 11:00pm Start: 05-02-2022 End: 06-29-2022 1 application, Topical, As needed, mild pain, Starting on Sat05/02/22 at 2144 Apply as needed prior to IV initiation. Apply 30 minutes prior to procedure, but not more than 1 hour prior to procedure. Max dose 2.5 grams of cream per application site. Max application time 4 hours. Start: 02-20-2022 End: 06-29-2022 apply 1 dose topically once daily 1 patch, topical (to p), Administer over 12 Hours, Daily, First dose on Sat05/03/22 at 0900 Apply to affected area Start: 02-12-2022 lidocaine (LMX ) 4 % cream Start: 01-29-2022 lidocaine (XYL OCAINE) 4 % (40 mg/mL) external solution Start: 10-15-2021 End: 10-15-2021 lidocaine 2 % mucosal jelly Start: 10-17-2020 End: 10-17-2020 lidocaine HCL (UROJET) 2 % applicator 1 application Lidocaine HCl 4 % PTCH USE DIRECTED Quantity: 0 Refills: 0 Ordered: 25-Apr-2023 DO Active apply 1 dose transde rmal route once, then apply 1 dose transdermal route every twelve hours lidocaine (LIDODERM) 5 % patch Place 1 patch on the skin every 12 (twelve) hours Remove & Discard patch within 12 hours or as directed by MD- to back . 0 Active lisinopril 20 mg oral tablet (2 sources) Angiotensin Converting Enzyme Inhibitor Start: 03-01-2023 lisinopril 20 mg Tab 20 mg = 1 tab(s), Oral, Daily, Hold this medication until 03/05 and resume if Cr is stable, # 30 tab(s), Refills(s) 0 Start Date: 03/01/23 Status: Ordered loperamide hydrochloride 2 mg oral tablet (20 sources) Opioid Agonist Start: 05-05-2023 loperamide (Im odium A-D) 2 mg tablet Take by mouth 4 (four) times a day as needed for diarrhea. 0 05/05/2023 Active Start: 05-05-2023 Immodium A-D 2 mg Tab 4 mg = 2 tab(s), Oral, q6hr, PRN Loose stool, Refills(s) 0 Start Date: 05/05/23 Status: Ordered take 1 tablet by angela four times daily as needed for diarrhea loperamide (IMODIUM A-D) 2 mg tablet Take 2 mg by mouth 4 (four) times a day as needed for diarrhea Max 4 tablets in 24 hours . 0 Active End: 09-10-2022 take 1 capsule by mouth every six hours as needed loperamide (Imodium) 2 mg capsule Take 2 mg by mouth every 6 (six) hours if needed. Do not exceed 4 tablets in 24 hours 0 09/10/2022 Discontinued (Pharmacy Med Rec) LORazepam 0.5 mg oral tablet (9 sources) Benzodiazepine Start: 10-11-2023 End: 10-14-2023 take 1 tablet by mouth twice daily as needed Ativan 0.5 mg Tab 0.5 mg = 1 tab(s), Oral, BID, PRN Agitation, X 3 day(s), # 6 tab(s), Refills(s) 0 Start Date: 10/11/23 Stop Date: 10/14/23 Status: Ordered Start: 12-12-2022 take 1 mg by mouth e very eight hours as needed for anxiety Ativan Oral (discharge) [id number] RxNorm 2022-12-12 Oral 1 milligram every 8 hours prn anxiety Active Start: 09-10-2022 End: 09-14-2022 take 1 tablet by mouth every eight hours for anxiety LORazepam (Ativan) 1 mg tablet Indications: PTSD (post-traumatic stress disorder) Take 1 tablet (1 mg total) by mouth every 8 (eight) hours if needed for anxiety. 30 tablet 0 09/14/2022 Active Start: 09-08-2022 take 1 tablet by angela th three times daily Lorazepam (Ativan) 1 mg Tablet Active 1 MG PO 3 times per day September 07, 2022 11:00pm take 1 tablet by angela th every six hours as needed LORazepam (Ativan) 0.5 mg tablet Take 1 tablet (0.5 mg) by mouth every 6 hours if needed for anxiety. 0 Active losartan potassium 100 mg oral tablet (17 sources) Angiotensin 2 Receptor Alan Start: 12-12-2022 take 100 mg by mouth once daily Losartan Oral (discharge) [id number] RxNo 2022-12-12 Oral 100 milligram daily Active Start: 09-08-2022 take 100 mg by mouth once marlyn y Losartan Active 100 MG PO Daily September 07, 2022 11:00pm Start: 07-27-2020 End: 05-02-2022 losartan (COZAAR) tablet 25 mg End: 09-14-2022 take 2 tablets by mouth once daily losartan (Cozaar) 50 mg tablet Indications: hold for sbp 120 and below Take 100 mg by mouth 1 (one) time each day. 0 09/14/2022 Discontinued (Stop Taking at Discharge) magnesium gluconate 550 mg oral tablet (1 source) Start: 12-12-2022 take 30 mL by mouth every twenty-four hours as needed for constipation Magnesium Oral (discharge) [id number] RxNorm 2022-12-12 Oral 400 milligram daily Active Parameters: 400 mg/5 ml give 30 ml every 24 hrs as needed for constipation Indication: constipation melatonin 5 mg oral tablet (20 sources) Start: 03-01-2023 take 1 tablet by angela th once daily at bedtime Melatonin 5 mg oral tablet 5 mg = 1 tab(s), Oral, Once a day (at bedtime), # 60 tab(s), Refills(s) 0 Start Date: 03/01/23 Status: Ordered Start: 12-12-2022 take 5 mg by mouth o nce daily at bedtime Melatonin Oral (discharge) [id number] RxNorm 2022-12-12 Oral 5 milligram every day at bedtime Active Start: 05-02-2022 End: 06-29-2022 take 6 mg by mouth once daily 6 mg, oral, Nightly, Fir st dose on Sat05/02/22 at 2200 Start: 01-10-2022 End: 09-10-2022 melatonin Tab 5 mg End: 11-12-2023 melatonin tablet Take by angela . 0 11/12/2023 Discontinued (Other) metFORMIN hydrochloride 500 mg oral tablet (7 sources) Biguanide Start: 03-01-2023 take 1 tablet by mouth twice daily metformin 500 mg Tab 500 mg = 1 tab(s), Oral, BID, # 60 tab(s), Refills(s) 0 Start Date: 03/01/23 Status: Ordered Start: 12-12-2022 take 500 mg by mouth twice daily Metformin Oral (discharge) [id number] RxNorm 2022-12-12 Oral 500 milligram 2 times per day Active Start: 09-08-2022 End: 09-14-2022 take 500 mg by mouth twice daily Metformin Active 500 MG PO 2 times per day September 07, 2022 11:00pm multivitamin-minerals (Centrum Silver) 0.4 mg-300 mcg- 250 mcg tablet (1 source) take 1 tablet by mouth once daily multivitamin-minerals (Centrum Silver) 0.4 mg-300 mcg- 250 mcg tablet Take 1 tablet by mouth 1 (one) time each day. 0 Active Multivitamins Oral Tablet (discharge) (1 source) Star t: 06-23 take 1 tablet by mouth once daily Multivitamins Oral Tablet (discharge) 0 RxNorm 2022-12-12 Oral Tablet 1 tablet daily Active NIFEdipine 30 mg oral tablet (9 sources) Dihydropyridine Calcium Channel Alan Star t: 120 06-23 take 1 tablet by mouth once daily NIFEdipine 30 mg ER Tab 30 mg = 1 tab(s), Oral, Daily, Refills(s) 0 Start Date: 10/11/23 Status: Ordered take 1 tablet by angela th once daily before mealtime NIFEdipine ER (Adalat CC) 30 mg 24 hr tablet Take 1 tablet (30 mg) by mouth once daily in the morning. Take before meals. Do not crush, chew, or split. 0 Active NOVOLOG U-100 INSULIN ASPART SUBQ (1 source) Start: 05-05-2023 NOVOLOG U-100 INSULIN ASPART SUBQ 6 unit(s), SubCutaneous, TIDAC, Refills(s) 0 0 05/05/2023 Active nystatin 100 unt/mg topical powder (11 sources) Polyene Antifungal Start: 05-08-2023 nystatin To p 100,000 units/g Pwdr 1 manuel, Topical, BID, 30 gm, Refill(s) 0 Start Date: 05/08/23 Status: Ordered nystatin (Mycost atin) cream Apply topically 2 (two) times a day. 0 Active omeprazole 20 mg oral tablet (5 sources) Proton Pump Inhibitor Start: 04-25-2023 take 20 mg by mouth once daily omeprazole 20 mg, Oral, Daily, Refills(s) 0 Start Date: 04/25/23 Status: Ordered Start: 04-25-2023 End: 11-12-2023 take 1 capsule by mouth once daily omeprazole (PriLOSEC) [address] capsule 20 mg, Oral, Daily, Refills(s) 0 0 04/25/2023 11/12/2023 Discontinued (Other) polyethylene glycol 3350 05128 mg powder for oral solution (20 sources) Osmotic Laxative Start: 12-12-2022 take 17 g by mouth once daily as needed for constipation Polyethylene Glycol Oral (discharge) [id number] RxNorm 2022-12-12 Oral 17 gram daily prn constipation Active Start: 09-10-2022 End: 09-14-2022 17 g, oral, Daily, First dos e on 09/10/22 at 1315 Start: 09-08-2022 Polyethylene G lycol 3350 (Miralax) 17 gram Powder In Packet Active 17 G PO 2 times per day September 07, 2022 11:00pm Start: 05-03-2022 End: 06-29-2022 17 g, oral, Daily PRN, const ipation, Starting on 06/03/22 at 1315 Start: 01-18-2022 End: 01-25-2022 polyethylene glycol (MIRALAX ) 17 gram packet Take 17 g by mouth 1 (one) time each day for 7 days. You can use 2-3 times daily until you have multiple large formed bowel movements then can cut back to once daily. 7 each 0 01/18/2022 01/25/2022 Active prednisoLONE acetate 10 mg/ml ophthalmic suspension (8 sources) Corticosteroid Start: 10-06-2023 prednisoLONE O pth acetate 1% Susp 5 mL 1 drop(s), Eye-Left, QID, Refill(s) 0, As prev. ordered Start Date: 10/06/23 Status: Ordered promethazine hydrochloride 25 mg oral tablet (6 sources) Phenothiazine Start: 04-25-2023 End: 11-12-2023 take 25 mg by mouth every six hours as needed for nausea promethazine 25 mg, Oral, q6hr, PRN as needed for nausea/vomiting, Refills(s) 0 Start Date: 04/25/23 Status: Ordered End: 11-12-2023 take 12.5 mg rectal route every six hours as needed promethazine (Phenergan) 12.5 mg suppository Insert 1 suppository (12.5 mg) into the rectum every 6 hours if needed for nausea or vomiting. 0 11/12/2023 Discontinued (Other) Senna Leaves (8 sources) Start: 10-06-2023 Senna 8.6 mg o ral tablet 8.6 mg, 1 tab(s), Oral, Daily for constipation, 100 tab(s), Refill(s) 0 Start Date: 10/06/23 Status: Ordered sodium chloride 0.154 meq/ml nasal spray (20 sources) Start: 03-01-2023 sodium chlorid e nasal 0.9% spray 1 spray(s), Nasal, BID, 45 mL, Refill(s) 0 Start Date: 03/01/23 Status: Ordered Start: 03-01-2023 sodium chlorid e 0.9 % aerosol,spray 1 spray(s), Nasal, BID, 45 mL, Refill(s) 0 0 03/01/2023 Active Start: 09-11-2022 End: 09-14-2022 3-15 mL, intravenous, As nee ded, line care, each shift and as needed, Starting on Sat09/11/22 at 0338 Start: 09-10-2022 End: 09-14-2022 sodium chloride 0.9 % bolus 250 mL Start: 05-03-2022 End: 05-03-2022 Starting on Sat05/03/22 at 2 014, For 1 dose Created by cabinet override Start: 05-02-2022 End: 06-29-2022 3-15 mL, intravenous, As nee ded, line care, each shift and as needed, Starting on Sat05/02/22 at 2144 Start: 05-02-2022 End: 06-29-2022 250 mL, intravenous, at 20 m L/hr, KVO, Line Care, Starting on Sat05/02/22 at 2144 If no maintenance IV fluid ordered, run a 250 mL bag of 0.9% NaCl with all IVPB. Start: 01-09-2022 End: 01-17-2022 sodium chloride (PF) (NS) fl ush 5 mL Start: 10-19-2020 End: 10-22-2020 sodium chloride (PF) (NS) fl ush 5 mL Start: 08-14-2020 End: 08-15-2020 sodium chloride (NS) 0.9 % b ladder irrigation solution 3,000 mL Start: 08-14-2020 End: 08-15-2020 sodium chloride (PF) (NS) fl ush 5 mL Start: 08-02-2020 End: 08-06-2020 sodium chloride (PF) (NS) fl ush 5 mL Start: 07-31-2020 End: 08-01-2020 sodium chloride 0.9% (NS) Start: 07-27-2020 End: 07-28-2020 sodium chloride 0.9 % (NS) infusion - ADS Override Pull Start: 07-26-2020 End: 07-27-2020 take 75 mL intravenous route every hour 75 mL/hr, Intravenous, Continuous, Starting Sat07/26/20 at 1500, For 24 hours Start: 07-26-2020 End: 07-26-2020 sodium chloride (PF) (NS) fl ush 5 mL sodium phosphate, dibasic 59 .3 mg/ml / sodium phosphate, monobasic 161 mg/ml enema (6 sources) Start: 12-12-2022 Fleet Enema (d ischarge) [id number] RxNorm 2022-12-12 Enema 118 milliliter daily prn constipation Active Start: 09-08-2022 Sodium Phospha jase (Fleet Enema) 19-7 gram/118 mL Enema Active 118 ML RECT Daily September 07, 2022 11:00pm sodium phosphate s (Fleet Enema) 19-7 gram/118 mL enema enema Insert 1 enema into the rectum See administration instructions. Insert 1 applicator rectally as needed for constipation. Administer if no BM in 12 hours following the glycerin suppository. Assess bowel sounds. If no results from enema go to Step #4. 0 Active sodium phosphate,mono-dibasic (ENEMA RECT) (2 sources) sodium phosphate,mono-dibasic (ENEMA RECT) Insert 1 enema into the rectum if needed (Constipation). Administer if no BM in 12 hours following glycerin suppository. Assess bowel sounds, if no results from enema go to step #4. 0 Active sulfamethoxazole 800 mg / trimethoprim 160 mg oral tablet (4 sources) Dihydrofolate Reductase Inhibitor Antibacterial, Sulfonamide Antimicrobial Star t: 09-04 End: 09-04 take 1 tablet by mouth once daily sulfamethoxazole-trimethop rim (Bactrim DS) 800-160 mg tablet Take 1 tablet by mouth 1 (one) time each day for 7 days. 7 tablet 0 09/14/2022 09/21/2022 Active Start: 09-14-2022 End: 09-14-2022 sulfamethoxazole-trimethopri m (Bactrim DS) 800-160 mg per tablet 160 mg Start: 06-22-2021 End: 05-02-2022 Start: 06-22-2021 sulfamethoxazo le-trimethoprim (Bactrim DS) 800-160 mg tablet vitamin b12 0.5 mg oral tablet (20 sources) Vitamin B12 Start: 03-01-2023 take 1 tablet by mouth once daily cyanocobalamin 500 mcg oral tablet 500 mcg = 1 tab(s), Oral, Daily, # 30 tab(s), Refills(s) 0 Start Date: 03/01/23 Status: Ordered Start: 12-12-2022 take 500 mg by mouth once daily Cyanocobalamin Oral (discharge) [id number] RxNorm 2022-12-12 Oral 500 microgram daily Active Start: 09-08-2022 End: 09-14-2022 take 500 ug by mouth once daily Cyanocobalamin (Vitamin B-12) Active 500 MCG PO Daily September 07, 2022 11:00pm Start: 10-27-2020 End: 06-29-2022 take 1 tablet by mouth once daily cyanocobalamin (VITAMIN B-12) 500 mcg tablet Take 1 tablet by mouth daily. 0 10/27/2020 Active Start: 07-26-2020 End: 08-06-2020 take 1000 ug by mouth once daily 1,000 mcg, Oral, Daily, First dose on Sat07/26/20 at 1500 Cyanocobalamin T ABS TAKE 1 TABLET DAILY DIRECTED. Quantity: 0 Refills: 0 Ordered: 25-Apr-2023 DO Active Completed/Discontinued Medications Medication Drug Class(es) Dates Sig (Normalized) Sig (Original) acetaminophen 250 mg / aspirin 250 mg / caffeine 65 mg oral tablet (20 sources) Platelet Aggregation Inhibitor, Nonsteroidal Anti-inflammatory Drug, Central Nervous System Stimulant, Methylxanthine End: 05-02-2022 End: 01-15-2022 take 1 tablet by mouth every six hours as needed for pain kvojudj-juxuxvnoldumn-zvsoyfvb (EXCEDRIN MIGRAINE) 250-250-65 mg per tablet Take 1 tablet by mouth every 6 (six) hours as needed for pain. 0 01/15/2022 Discontinued albuterol 0.83 mg/ml inhalant solution (1 source) beta2-Adrenergic Agonist Start: 10-21-2020 End: 10-22-2020 take 2.5 mg by inhalation every six hours as needed albuterol (PROVENTIL) 2.5 mg /3 mL (0.083 %) nebulizer solution 2.5 mg aluminum chloride 200 mg/ml topical solution (1 source) End: 07-26-2020 aluminum chloride (DRYSOL) 20 % external solution Apply topically as needed. 0 07/26/2020 Discontinued 20 ml aminophylline 25 mg/ml injection (1 source) Start: 10-21-2020 End: 10-22-2020 aminophylline injection 125 mg ascorbic acid 500 mg oral tablet (20 sources) Vitamin C Start: 07-26-2020 End: 05-02-2022 take 500 mg by mouth once daily 500 mg, Oral, Daily, First dose on Sat07/26/20 at 1500 take 2 tablets by mouth once kayla ly ascorbic acid (Vitamin C) 500 mg tablet Take 1,000 mg by mouth 1 (one) time each day. 0 Active calcium chloride 0.0014 meq/ ml / potassium chloride 0.004 meq/ml / sodium chloride 0.103 meq/ml / sodium lactate 0.028 meq/ml injectable solution (5 sources) Start: 01-12-2022 End: 01-13-2022 lactated Ringers infusion Start: 01-12-2022 End: 01-12-2022 lactated Ringers infusion - ADS Override Pull Start: 10-19-2020 End: 10-19-2020 lactated ringers bolus 2,052 mL Start: 08-05-2020 End: 08-06-2020 lactated Ringers infusion Start: 07-29-2020 End: 07-31-2020 lactated Ringers infusion ceFAZolin 2000 mg injection (4 sources) Cephalosporin Antibacterial Start: 01-09-2022 End: 01-16-2022 take 2000 mg intravenously every eight hours 2,000 mg, Intravenous, at 100 mL/hr, Every 8 hours, First dose on Sat01/09/22 at 2200 Indication: Skin/Soft Tissue Infection Start: 01-09-2022 End: 01-09-2022 ceFAZolin (ANCEF) IVPB 2 g (premix) Start: 10-19-2020 End: 10-22-2020 take 2000 mg intravenous route every eight hours ceFAZolin (ANCEF) IVPB 2 g (premix) cefTRIAXone (Rocephin) 1 g in sodium chloride 0.9 % 60 mL IVPB (1 source) Start: 09-12-2022 End: 09-13-2022 cefTRIAXone (Rocephin) 1 g in sodium chloride 0.9 % 60 mL IVPB cholecalciferol 0.025 mg oral tablet (3 sources) Vitamin D End: 05-02-2022 citalopram 20 mg oral tablet (3 sources) Serotonin Reuptake Inhibitor Start: 02-17-2021 End: 05-02-2022 Start: 02-17-2021 citalopram (Ce Shannan) 20 mg tablet Start: 01-07-2021 citalopram (Ce Shannan) 40 mg tablet collagenase 0.25 unt/mg topical ointment (5 sources) Collagen-specific Enzyme Start: 09-10-2022 End: 09-14-2022 collagenase 250 unit/gram ointment Start: 05-03-2022 End: 05-25-2022 apply 1 dose topically once daily Topical, Daily, First dose on [place] 05/03/22 at 1145 Start: 01-29-2021 End: 05-02-2022 End: 01-17-2022 collagenase (SANTYL) ointmen t Apply 1 application topically at bedtime Left foot . 0 01/17/2022 Discontinued (Stop Taking at Discharge) diphenhydrAMINE hydrochloride 25 mg oral tablet (1 source) Histamine-1 Receptor Antagonist Start: 07-27-2020 End: 08-06-2020 take 25 mg by mouth every six hours as needed diphenhydrAMINE (BENADRYL) oral solid 25 mg docusate sodium 50 mg / sennosides, chcf 8.6 mg oral tablet (13 sources) Start: 01-09-2022 End: 01-17-2022 take 1 tablet by mouth twice daily 1 tablet, Oral, 2 times daily, First dose on Sat01/09/22 at 2100 NOT for abdominal surgery patients. &nbsp ;Hold for loose stools. Do Not Crush or Chew if administering orally due to bitter taste. May be crushed if given via tube. Start: 07-26-2020 End: 09-05-2020 take 1 tablet by mouth twice daily senna-docusate (SENNA-S) 8.6-50 mg Take 1 (one) tablet by mouth 2 (two) times a day . 60 tablet 0 08/06/2020 08/15/2020 Discontinued doxazosin 4 mg oral tablet (10 sources) alpha-Adrenergic Alan Start: 09-01-2020 End: 05-02-2022 Drug or medicament (substance) (1 source) End: 05-02-2022 0.4 ml enoxaparin sodium 100 mg/ml prefilled syringe (6 sources) Low Molecular Weight Heparin Start: 05-22-2022 End: 06-29-2022 inject 40 mg by subcutaneous injection once daily 40 mg, subcutaneou s, Nightly, First dose on Sat05/22/22 at 2100 HIGH ALERT MEDICATION* * Start: 01-13-2022 End: 01-17-2022 enoxaparin (LOVENOX) syringe 40 mg Start: 01-10-2022 End: 01-11-2022 enoxaparin (LOVENOX) syringe 40 mg Start: 08-06-2020 End: 08-06-2020 enoxaparin (LOVENOX) syringe 40 mg Start: 07-30-2020 End: 08-04-2020 enoxaparin (LOVENOX) syringe 40 mg Start: 07-26-2020 End: 07-28-2020 enoxaparin (LOVENOX) syringe 40 mg ergocalciferol 1.25 mg oral capsule (20 sources) Provitamin D2 Compound Start: 03-01-2023 take 1 capsule by mouth once daily ergocalciferol 50,000 intl units Cap 50,000 International_Unit = 1 cap(s), Oral, Daily, # 4 cap(s), Refills(s) 0 Start Date: 03/01/23 Status: Ordered Start: 03-01-2023 ergocalciferol 50,000 intl units Cap 50,000 International_Unit = 1 cap(s), Oral, Saturday, # 4 cap(s), Refills(s) 0 Start Date: 03/01/23 Status: Ordered Start: 12-12-2022 take 1250 mg by mout h every week Ergocalciferol Oral (discharge) [id number] RxNorm 2022-12-12 Oral 1250 microgram every week Active Start: 09-15-2022 End: 09-14-2022 take 97959 [IU] by mouth every week 50,000 Units, oral, Weekly, First dose on Sat09/15/22 at 0900 Start: 09-08-2022 take 1250 ug by mout h every week Ergocalciferol (Vitamin D2) Active 1250 MCG PO Every Week September 07, 2022 11:00pm Start: 05-05-2022 End: 06-29-2022 take 28193 [IU] by mouth every week 50,000 Units, oral, Weekly, First dose on 05/05/22 at 0900 take 1 capsule by [facility] every week ergocalciferol (Vitamin D-2) 1.25 MG (07214 UT) capsule Take 1.25 mg by mouth 1 (one) time per week. 0 Active ergocalciferol ( VITAMIN D-2) 1,250 mcg (50,000 unit) capsule Take 50,000 Units by mouth every 7 (seven) days. 0 Active 2 ml famotidine 10 mg/ml injection (1 source) Histamine-2 Receptor Antagonist Start: 08-05-2020 End: 08-05-2020 20 mg, Intravenous, Once, 08/05/20 at 1245, For 1 dose, Pre-Procedure Aseptically dilute dose of famotidine injection with 0.9% NaCl to a total volume of either 5 ml or 10 ml and inject over 2 minutes. Start: 08-05-2020 End: 08-05-2020 20 mg, Intravenous, Once, Fr i 08/05/20 at 1245, For 1 dose, Pre-Procedure Aseptically dilute dose of famotidine injection with 0.9% NaCl to a total volume of either 5 ml or 10 ml and inject over 2 minutes. flu vacc [id number] 6mos up(PF) (FLUZONE QUAD/FLULAVAL QUAD/FLUARIX QUAD) syringe 0.5 mL (1 source) Start: 07-26-2020 End: 07-26-2020 inject 0.5 mL by intramuscular injection every twenty-four hours as needed flu vacc [id number] 6mos up(PF) (FLUZONE QUAD/FLULAVAL QUAD/FLUARIX QUAD) syringe 0.5 mL flurbiprofen sodium 0.3 mg/ml ophthalmic solution (7 sources) Nonsteroidal Anti-inflammatory Drug Start: 04-16-2022 End: 09-10-2022 1 drop, Both Eyes, 2 times daily, First dose on Sat05/02/22 at 2200 Indications: pain Start: 03-23-2022 flurbiprofen ( OCUFEN) 0.03 % ophthalmic solution 4 ml furosemide 10 mg/ml injection (4 sources) Loop Diuretic Start: 09-11-2022 End: 09-12-2022 furosemide (Lasix) injection 20 mg Start: 09-10-2022 End: 09-10-2022 furosemide (Lasix) injection 20 mg End: 01-17-2022 take 1 tablet by mouth twice daily furosemide (LASIX) 20 MG tablet Take 20 mg by mouth 2 (two) times a day . 0 01/17/2022 Discontinued (Stop Taking at Discharge) glimepiride 2 mg oral tablet (1 source) Sulfonylurea Start: 05-03-2022 End: 06-29-2022 take 2 mg by mouth once daily at breakfast 2 mg, oral, Daily with breakfast, First dose on [place] 05/03/22 at 0800 Glucose (1 source) Start: 09-11-2022 End: 09-14-2022 dextrose 50% solution 25 mL glycerin 2000 mg rectal suppository (14 sources) Non-Standardized Chemical Allergen Start: 09-10-2022 End: 09-14-2022 2 g (1 suppository), rectal, Daily PRN, constipation, Starting on 09/10/22 at 1313 Insert 1 suppository rectally as needed for constipation. Administer if no bowel movement within 12 hours after Milk of Magnesia Start: 09-08-2022 Glycerin (Adul t) Active 1 SUPP RECT Daily September 07, 2022 11:00pm Start: 09-08-2022 Glycerin (Adul t) Active 1 SUPP RECT Daily September 08, 2022 12:00am Start: 01-18-2022 End: 01-28-2022 glycerin (adult) suppository Insert 1 suppository (2 g total) into the rectum 1 (one) time each day if needed for constipation for up to 10 days. 10 each 0 01/18/2022 01/28/2022 Active glycerin 2 mg/ml / hypromellose 2 mg/ml / polyethylene glycol 400 10 mg/ml ophthalmic solution (2 sources) Non-Standardized Chemical Allergen End: 09-10-2022 peg [id number] n 1-0.2-0.2 % drops Indications: dry eye Administer 1 drop into both eyes if needed. 0 09/10/2022 Discontinued (Pharmacy Med Rec) haloperidol 1 mg oral tablet (5 sources) Typical Antipsychotic Start: 09-10-2022 End: 09-14-2022 take 0.5 mg by mouth three times daily 0.5 mg, oral, 3 times daily, First dose on Sat09/10/22 at 1600 Start: 09-08-2022 take 0.5 mg by mouth three times daily Haloperidol Active 0.5 MG PO 3 times per day September 07, 2022 11:00pm 1 ml heparin sodium, porcine 5000 unt/ml injection (1 source) Unfractionated Heparin, Anti-coagulant Start: 09-11-2022 End: 09-14-2022 inject 5000 [IU] by subcutaneous injection every twelve hours 5,000 Units, subcutaneous, Every 12 hours, First dose on Sat09/11/22 at 0345 HIGH ALERT MEDICATION Indications: Prophylaxis of Venous Thromboembolism hydrALAZINE hydrochloride 25 mg oral tablet (1 source) Arteriolar Vasodilator Start: 07-31-2020 End: 08-06-2020 take 1 tablet by mouth every six hours as needed hydrALAZINE (APRESOLINE) tablet 25 mg hydrOXYzine hydrochloride 25 mg oral tablet (4 sources) Antihistamine Start: 01-11-2022 End: 01-17-2022 hydrOXYzine (ATARAX) tablet 25 mg Start: 11-25-2020 End: 05-02-2022 Start: 11-25-2020 hydrOXYzine HC L (Atarax) 25 mg tablet ibuprofen 400 mg oral tablet (1 source) Nonsteroidal Anti-inflammatory Drug Start: 05-04-2022 End: 06-29-2022 take 400 mg by mouth every eight hours as needed for pain 400 mg, oral, Every 8 hours PRN, moderate pain, mild pain, Starting on Sat05/04/22 at 0428 3 ml insulin detemir 100 unt/ml pen injector (1 source) Insulin Analog Start: 05-03-2022 End: 06-29-2022 inject 22 [IU] by subcutaneous injection once daily in the morning 22 Units, subcutaneous, Every morning, First dose on Sat05/03/22 at 0700 Insulin Lispro (20 sources) Insulin Analog Start: 10-10-2023 End: 10-10-2023 Insulin Lispro Sliding Scale 0-10 Unit(s), Injection-Insu mao, SubCutaneous, Start date 10/10/23 4:30:00 PM EST Start Date: 10/10/23 Stop Date: 10/10/23 Status: Completed Start: 10-10-2023 End: 10-10-2023 Insulin Lispro Sliding Scale 0-10 Unit(s), Injection-Insulin, SubCutaneous, Start date 10/10/23 11:30:00 AM EST Start Date: 10/10/23 Stop Date: 10/10/23 Status: Completed Start: 04-26-2023 End: 04-26-2023 HumaLOG Sliding Scale 0-10 U nits, Injection-Insulin, SubCutaneous, Start date 04/26/23 16:30:00 EDT Start Date: 04/26/23 Stop Date: 04/26/23 Status: Completed Start: 04-25-2023 End: 04-25-2023 HumaLOG Sliding Scale 0-10 U nits, Injection-Insulin, SubCutaneous, Start date 04/25/23 21:00:00 EDT Start Date: 04/25/23 Stop Date: 04/25/23 Status: Completed Start: 03-03-2023 End: 03-03-2023 HumaLOG Sliding Scale 0-10 U nits, Injection-Insulin, SubCutaneous, Start date 03/03/23 21:00:00 EDT Start Date: 03/03/23 Stop Date: 03/03/23 Status: Completed Start: 03-03-2023 insulin lispro 0-10 Units, SubCutaneous, QIDACHS, Refills(s) 0 Start Date: 03/03/23 Status: Ordered Start: 03-03-2023 End: 03-03-2023 HumaLOG Sliding Scale 0-10 U nits, Injection-Insulin, SubCutaneous, Start date 03/03/23 11:30:00 EDT Start Date: 03/03/23 Stop Date: 03/03/23 Status: Completed Start: 03-02-2023 End: 03-02-2023 HumaLOG Sliding Scale 0-10 U nits, Injection-Insulin, SubCutaneous, Start date 03/02/23 16:30:00 EDT Start Date: 03/02/23 Stop Date: 03/02/23 Status: Completed Start: 01-15-2022 End: 01-17-2022 insulin lispro (AdmeLOG,Bianca LOG) injection 0-30 Units Start: 01-09-2022 End: 01-17-2022 inject 1 dose by subcutaneous injection once daily 0-15 Units, Subcutaneous, At bedtime, First dose on Sat01/09/22 at 2100 For Nightly Insulin Dose Coverage, use: CORRECTIVE (Only) for BG greater than 300 Nightly CORRECTIVE Dose Method: Specific Corrective Dose Nightly Specific CORRECTIVE dose (units of insulin): 2 For Downtime Calculator, use: Insulin SC NIGHTtime Start: 01-09-2022 End: 01-15-2022 inject 1 dose by subcutaneous injection three times daily before mealtime 0-30 Units, Subcutaneous, 3 times daily before meals, First dose on Sat01/09/22 at 1635 Dose should be given 10-15 minutes before a meal. If poor oral intake, nausea or blood glucose value < 80 before meal, give of the dose (rounded up to nearest unit) immediately after meal completed. If patient skipping meal, hold base prandial dose and continue to use corrective insulin as ordered. Once diet resumed, total base prandial + corrective doses may be given. Prandial Insulin Dosing Method: NO Prandial Dose - Corrective Scale ONLY Corrective Insulin Regimen (select desired scale to cover BG result): Conservative Scale For Downtime Calculator, use: Insulin SC MEALtime PREprandial Start: 10-19-2020 End: 10-22-2020 insulin lispro (HumaLOG) inj ection 0-15 Units Start: 08-16-2020 End: 05-02-2022 Start: 08-16-2020 End: 01-15-2022 insulin lispro (HumaLOG Kwik Pen Insulin) 100 unit/mL InPn For blood sugar 141-180 give 2 units subcutaneoulsy, for 181-220 give 4 units, for 221-260 give 6 units, and for 261-300 give 8 units. . 18 mL 0 08/16/2020 01/15/2022 Discontinued Start: 08-15-2020 End: 08-15-2020 insulin lispro (HumaLOG) inj ection 0-30 Units Start: 08-04-2020 End: 08-06-2020 insulin lispro (HumaLOG) inj ection 0-30 Units Start: 07-26-2020 End: 08-06-2020 inject 1 dose by subcutaneous injection once daily 0-15 Units, Subcutaneous, At bedtime, First dose on 9/22/20 at 2100 For Nightly Insulin Dose Coverage, use: CORRECTIVE (Only) for BG greater than 300 Nightly CORRECTIVE Dose Method: Specific Corrective Dose Nightly Specific CORRECTIVE dose (units of insulin): 2 For Downtime Calculator, use: Insulin SC NIGHTtime Start: 07-26-2020 End: 08-04-2020 inject 1 dose by subcutaneous injection three times daily before mealtime 0-30 Units, Subcutaneous, 3 times daily before meals, First dose on Sat07/26/20 at 1630 Dose should be given 10-15 minutes before a meal. If poor oral intake, nausea or blood glucose value < 80 before meal, give of the dose (rounded up to nearest unit) immediately after meal completed. If patient skipping meal, hold base prandial dose and continue to use corrective insulin as ordered. Once diet resumed, total base prandial + corrective doses may be given. Prandial Insulin Dosing Method: NO Prandial Dose - Corrective Scale ONLY Corrective Insulin Regimen (select desired scale to cover BG result): Normal Sensitivity Scale For Downtime Calculator, use: Insulin SC MEALtime PREprandial 5 ml iron sucrose 20 mg/ml injection (1 source) Parenteral Iron Replacement Start: 09-10-2022 End: 09-14-2022 iron sucrose (Venofer) injection 200 mg 1 ml ketorolac tromethamine 30 mg/ml injection (1 source) Nonsteroidal Anti-inflammatory Drug, Cyclooxygenase Inhibitor Start: 10-15-2021 End: 10-15-2021 ketorolac (TORADOL) injection 15 mg ammonium lactate 120 mg/ml topical cream (2 sources) Start: 09-10-2022 End: 09-14-2022 ammonium lactate (Amlactin) 12 % cream Start: 06-18-2022 End: 06-29-2022 apply 1 dose topically once daily Topical, Daily, Firs t dose on 06/18/22 at 1445 lactulose 667 mg/ml oral solution (1 source) Osmotic Laxative Start: 09-11-2022 End: 09-14-2022 lactulose 20 gram/30 mL oral solution 10 g linezolid 600 mg oral tablet (2 sources) Oxazolidinone Antibacterial Start: 01-23-2021 End: 05-02-2022 Start: 01-23-2021 linezolid (Zyv ox) 600 mg tablet magnesium citrate 58.2 mg/ml oral solution (1 source) Start: 01-18-2022 End: 01-18-2022 magnesium citrate solution 296 mL magnesium hydroxide 80 mg/ml oral suspension (20 sources) Start: 09-11-2022 End: 09-14-2022 take 30 mL by mouth once daily as needed for constipation 30 mL, oral, Daily PRN, constipation, Starting on Sat09/11/22 at 0338 1st line for treatment of constipation - give scheduled if no bowel movement in past 24 hours Start: 05-02-2022 End: 06-29-2022 take 30 mL by mouth once daily as needed for constipation 30 mL, oral, Daily PRN, constipation, Starting on Sat05/02/22 at 2144 1st line for treatment of constipation - give scheduled if no bowel movement in past 24 hours Start: 07-27-2020 End: 08-06-2020 magnesium hydroxide (MOM) 40 0 mg/5 mL suspension 2,400 mg magnesium hydrox paty (Milk of Magnesia) 400 mg/5 mL suspension Use as directed 0 Active Milk of Magnesia 400 MG/5ML Oral Suspension USE DIRECTED. Quantity: 0 Refills: 0 Ordered: 25-Apr-2023 DO Active magnesium hydrox paty (Milk of Magnesia) 400 mg/5 mL suspension Take 30 mL by mouth 1 (one) time each day if needed for constipation. Give if no BM in 3 days. Do not give more than 3 consecutive doses. Assess bowel sounds, if no results from MOM in 12 hours go to step #2. 0 Active metFORMIN hydrochloride 1000 mg / SITagliptin 50 mg oral tablet (16 sources) Biguanide, Dipeptidyl Peptidase 4 Inhibitor Start: 01-03-2021 End: 05-02-2022 Start: 01-03-2021 End: 01-15-2022 take 1 tablet by mouth once daily Janumet 50-1,000 mg tablet Take 1 tablet by mouth 1 (one) time each day. 0 01/03/2021 Active End: 08-06-2020 take 1 tablet by mouth twice daily sitagliptan-metFORMIN (JANUMET) 50-1,000 mg per tablet Take 1 tablet by mouth 2 (two) times a day. 0 08/06/2020 Discontinued (Stop Taking at Discharge) methocarbamol 500 mg oral tablet (1 source) Muscle Relaxant Start: 07-30-2020 End: 08-06-2020 methocarbamoL (ROBAXIN) tablet 500 mg 2 ml metoclopramide 5 mg/ml injection (1 source) Dopamine-2 Receptor Antagonist Start: 08-05-2020 End: 08-05-2020 10 mg, Intravenous, Once, 08/05/20 at 1245, For 1 dose, Pre-Procedure Start: 08-05-2020 End: 08-05-2020 10 mg, Intravenous, Once, Fr i 08/05/20 at 1245, For 1 dose, Pre-Procedure 24 hr metoprolol succinate 25 mg extended release oral tablet (20 sources) beta-Adrenergic Alan Start: 10-11-2023 End: 10-11-2023 metoprolol 25 mg ER Tab 25 mg = 1 tab(s), Tab-ER, Oral, Start date 10/11/23 9:00:00 AM EST, 10/06/23 11:05:00 EST Start Date: 10/11/23 Stop Date: 10/11/23 Status: Completed Start: 04-27-2023 End: 11-12-2023 take 1 tablet by mouth every twenty-four hours metoprolol succinate XL (Toprol-XL) 25 mg 24 hr tablet Take by mouth. Do not crush or chew. 0 04/27/2023 11/12/2023 Discontinued (Other) Start: 04-27-2023 End: 10-10-2023 take 1 tablet by mouth twice daily metoprolol 25 mg ER Tab 25 mg = 1 tab(s), Oral, BID, # 30 tab(s), Refills(s) 0, other reason (Rx) Start Date: 04/27/23 Status: Ordered Start: 04-27-2023 take 1 tablet by mouth once da ashish metoprolol 25 mg ER Tab 25 mg = 1 tab(s), Oral, Daily, # 30 tab(s), Refills(s) 0, other reason (Rx) Start Date: 04/27/23 Status: Ordered Start: 12-12-2022 End: 03-04-2023 metoprolol 100 mg ER Tab 100 mg = 1 tab(s), Tab-ER, Oral, Start date 03/04/23 9:00:00 EDT, Hold for sbp 110 or less or HR 55 or less, 03/01/23 15:31:00 EDT Start Date: 03/04/23 Stop Date: 03/04/23 Status: Completed Start: 09-08-2022 take 1 tablet by mouth once da ashish Metoprolol Succinate (Toprol Xl) 50 mg Tablet Extended Release 24 Hr Active 50 MG PO Daily September 07, 2022 11:00pm take 1 tablet by angela th twice daily metoprolol tartrate (Lopressor) 25 mg tablet Take 1 tablet (25 mg) by mouth 2 times a day. 0 Active metroNIDAZOLE 500 mg oral tablet (3 sources) Nitroimidazole Antimicrobial Start: 01-11-2022 End: 01-16-2022 metroNIDAZOLE (FLAGYL) tablet 500 mg Start: 01-09-2022 End: 01-11-2022 take 500 mg intravenously every eight hours 500 mg, Intravenous, at 200 mL/hr, Every 8 hours, First dose on Sat01/09/22 at 2200 DO NOT REFRIGERATE Indication: Other: (specify) Indication: diabetic foot infection midodrine hydrochloride 5 mg oral tablet (4 sources) alpha-Adrenergic Agonist Start: 12-13-2020 End: 05-02-2022 Start: 12-13-2020 midodrine (Pro amatine) 5 mg tablet Naloxone (7 sources) Opioid Antagonist Start: 09-11-2022 End: 09-14-2022 0.4 mg, intravenous, As need ed, respiratory depression, Starting on Sat09/11/22 at 0338 0.4 mg (1 mL) IVP over 30 seconds for respiratory rate less than 8 per minute: NOTIFY PHYSICIAN immediately. Repea t every 2 minutes as needed up to 10 mg total. Start: 05-02-2022 End: 06-29-2022 0.4 mg, intravenous, As need ed, respiratory depression, Starting on Sat05/02/22 at 2144 0.4 mg (1 mL) IVP over 30 seconds for respiratory rate less than 8 per minute: NOTIFY PHYSICIAN immediately. Repeat every 2 minutes as needed up to 10 mg total. Start: 01-17-2022 End: 02-26-2022 naloxone (NARCAN) 4 mg/actua tion Epes Administer 1 spray into one nostril for known or suspected opioid overdose. If patient worsens or does not respond, may repeat in 2-3 minutes. . 2 each 0 01/17/2022 02/26/2022 Discontinued (Discontinued by another clinician) naloxone (NARCAN) injection 0.1 mg (4 sources) Start: 01-12-2022 End: 01-17-2022 naloxone (NARCAN) injection 0.1 mg Start: 10-19-2020 End: 10-22-2020 naloxone (NARCAN) injection 0.1 mg Start: 08-05-2020 End: 08-06-2020 naloxone (NARCAN) injection 0.1 mg Start: 07-26-2020 End: 08-06-2020 naloxone (NARCAN) injection 0.1 mg nitrofurantoin, macrocrystals 50 mg oral capsule (3 sources) Nitrofuran Antibacterial End: 05-02-2022 nitroglycerin 0.4 mg sublingual tablet (2 sources) Nitrate Vasodilator Start: 09-11-2022 End: 09-14-2022 0.4 mg, sublingual, Every 5 min PRN, chest pain, Starting on Sat09/11/22 at 0338 Give every 5 minutes as needed for chest pain to a maximum of 3 doses. Notify MD and obtain EKG if no relief after 3 doses or chest pain recurs. HOLD and notify MD if SBP less than 90 mmHg. Do not give if nitroglycerin infusion running concurrently. Do not give within 24 hours of sildenafil citrate (Viagra) or vardenafil (Levitra) use, or within 48 hours of tadalafil (Cialis) use. Start: 05-02-2022 End: 06-29-2022 0.4 mg, sublingual, Every 5 min PRN, chest pain, Starting on Sat05/02/22 at 2144 Give every 5 minutes as needed for chest pain to a maximum of 3 doses. Notify MD and obtain EKG if no relief after 3 doses or chest pain recurs. HOLD and notify MD if SBP less than 90 mmHg. Do not give if nitroglycerin infusion running concurrently. Do not give within 24 hours of sildenafil citrate (Viagra) or vardenafil (Levitra) use, or within 48 hours of tadalafil (Cialis) use. 2 ml ondansetron 2 mg/ml injection (20 sources) Serotonin-3 Receptor Antagonist Start: 09-10-2022 End: 09-14-2022 4 mg, intravenous, Every 8 hours PRN, nausea, vomiting, Starting on Sat09/11/22 at 0338 [address] Line. If inadequate response within 60 minutes, proceed to next-line agent or contact provider if no further options ordered. Start: 05-02-2022 End: 06-29-2022 4 mg, intravenous, Every 8 h ours PRN, nausea, vomiting, Starting on Sat05/02/22 at 2144 1[address] Line. If inadequate response within 60 minutes, proceed to next-line agent or contact provider if no further options ordered. Start: 05-02-2022 End: 05-02-2022 take 4 mg by mouth once 4 mg, oral, Once, On 04/05 at 1520, For 1 dose Start: 01-18-2022 End: 09-10-2022 ondansetron ODT (ZOFRAN-ODT) 4 mg dispersible tablet Start: 07-26-2020 End: 08-06-2020 take 4 mg intravenous route every six hours as needed 4 mg, Intravenous, Every 6 hours PRN, nausea, vomiting, Starting Sat07/26/20 at 1405 ondansetron (ZOFRAN-ODT) disintegrating tablet 4 mg (2 sources) Start: 01-09-2022 End: 01-17-2022 take 1 tablet by mouth every six hours as needed for nausea and vomiting ondansetron (ZOFRAN-ODT) disintegrating tablet 4 mg Start: 10-19-2020 End: 10-22-2020 take 1 tablet by mouth every six hours as needed ondansetron (ZOFRAN-ODT) disintegrating tablet 4 mg oxybutynin chloride 5 mg oral tablet (20 sources) Cholinergic Muscarinic Antagonist Start: 05-02-2022 End: 06-29-2022 take 5 mg by mouth twice daily 5 mg, oral, 2 times daily, First dose on Sat05/02/22 at 2200 Start: 05-02-2022 End: 05-02-2022 take 10 mg by mouth once 10 mg, oral, Once, On Sat at 1520, For 1 dose Start: 12-31-2021 oxybutynin XL (DITROPAN-XL) 10 mg 24 hr tablet Start: 12-08-2020 oxybutynin XL (Ditropan-XL) 10 mg 24 hr tablet Start: 09-13-2020 End: 09-10-2022 take 1 tablet by mouth once daily oxybutynin XL (Ditropan-XL) 10 mg 24 hr tablet Take 10 mg by mouth 1 (one) time each day. 0 12/08/2020 09/10/2022 Discontinued (Pharmacy Med Rec) End: 09-13-2020 take 1 tablet by mouth three times daily oxybutynin (DITROPAN) 5 MG tablet Take 5 mg by mouth 3 (three) times a day . 0 09/13/2020 Discontinued oxyCODONE hydrochloride 5 mg oral tablet (3 sources) Opioid Agonist Start: 01-09-2022 End: 01-17-2022 take 5-10 mg by mouth every four hours as needed oxyCODONE (ROXICODONE) immediate release tablet 5-10 mg Start: 10-19-2020 End: 10-22-2020 take 1 tablet by mouth every six hours as needed oxyCODONE (ROXICODONE) immediate release tablet 5 mg Oxygen (2 sources) Start: 09-11-2022 End: 09-14-2022 inhalation, See admin instru ctions, Starting on Sat09/11/22 at 0338 Device: Nasal Cannula Rate in liters per minute: 2 Lpm Titrate to keep O2 Sat greater than or equal to: 90% Start: 05-02-2022 End: 06-29-2022 inhalation, See admin instru ctions, Starting on Sat05/02/22 at 2144 Device: Nasal Cannula Rate in liters per minute: 2 Lpm Titrate to keep O2 Sat greater than or equal to: 90% phenazopyridine hydrochloride 100 mg oral tablet (3 sources) Start: 10-19-2020 End: 10-21-2020 take 200 mg by mouth three times daily 200 mg, Oral, 3 times daily, First dose on Sat10/19/20 at 2100, For 48 hours Start: 10-17-2020 End: 10-22-2020 take 1 tablet by mouth three times daily phenazopyridine (PYRIDIUM) 200 MG tablet Take 1 (one) tablet (200 mg total) by mouth 3 (three) times a day for 3 days . 9 tablet 0 10/17/2020 10/22/2020 Discontinued (Stop Taking at Discharge) piperacillin 3000 mg / tazobactam 375 mg injection (2 sources) Penicillin-class Antibacterial, beta Lactamase Inhibitor Start: 01-16-2022 End: 01-17-2022 take 3.375 g intravenously every eight hours piperacillin-tazobactam (ZOSYN) IVPB 3.375 g (premix) Start: 07-26-2020 End: 08-06-2020 take 3.375 g intravenous route every eight hours piperacillin-tazobactam (ZOSYN) IVPB 3.375 g (premix) piperacillin-tazobactam (ZOS YN) 4.5 g in sodium chloride (NS) 0.9% 100 mL MBP (1 source) Start: 07-26-2020 End: 07-26-2020 piperacillin-tazobactam (ZOS YN) 4.5 g in sodium chloride (NS) 0.9% 100 mL MBP polyvinyl alcohol 0.014 ml/m l ophthalmic solution (2 sources) Start: 09-10-2022 End: 09-14-2022 1 drop, Both Eyes, 2 times daily PRN, dry eyes, Starting on Sat09/10/22 at 1310 predniSONE 20 mg oral tablet (2 sources) Start: 07-03-2021 End: 05-02-2022 Start: 07-03-2021 predniSONE (De ltasone) 20 mg tablet regadenoson (LEXISCAN) injection 0.4 mg (1 source) Start: 10-21-2020 End: 10-22-2020 regadenoson (LEXISCAN) injection 0.4 mg remove patch (4 sources) Start: 03-03-2023 remove patch 1 patch(es), Topical, Daily, 0 Start Date: 03/03/23 Status: Ordered rosuvastatin calcium 20 mg oral tablet (20 sources) HMG-CoA Reductase Inhibitor Start: 09-10-2022 End: 09-14-2022 take 40 mg by mouth once daily 40 mg, oral, Daily, First dose on Sat09/10/22 at 1315 Start: 05-03-2022 End: 06-29-2022 take 40 mg by mouth once daily 40 mg, oral, Daily, Fir st dose on [place] 05/03/22 at 0900 Start: 08-06-2020 End: 01-15-2022 take 1 tablet by mouth once daily in the evening rosuvastatin (Crestor) 40 MG tablet Take 1 (one) tablet (40 mg total) by mouth every evening . 30 tablet 0 08/06/2020 01/15/2022 Discontinued End: 08-06-2020 ROSUVASTATIN CALCIUM (CRESTO R ORAL) Take by mouth every evening. 0 08/06/2020 Discontinued ROSUVASTATIN FRANKY CIUM (CRESTOR ORAL) Take by mouth every evening. 0 Suspended sennosides, chcf 8.6 mg oral tablet (1 source) Start: 01-09-2022 End: 01-17-2022 take 1 tablet by mouth twice daily as needed for constipation 8.6 mg (1 tablet), Oral, 2 times daily PRN, constipation, Starting on Sat01/09/22 at 1634 simvastatin 40 mg oral tablet (1 source) HMG-CoA Reductase Inhibitor End: 07-26-2020 take 1 tablet by mouth every twenty-four hours simvastatin (ZOCOR) 40 MG tablet 1 Unspecified daily . 0 07/26/2020 Discontinued (Error) SITagliptin 50 mg oral tablet (20 sources) Dipeptidyl Peptidase 4 Inhibitor Start: 05-02-2022 End: 06-29-2022 take 100 mg by mouth once daily 100 mg, oral, Daily, First dose on [place] 05/03/22 at 0900 Indications: type 2 diabetes mellitus take 2 tablets by mo [facility] once daily sitagliptin (JANUVIA) 50 MG tablet Take 100 mg by mouth daily . 0 Active End: 09-10-2022 take 1 tablet by mouth once daily SITagliptin (Januvia) 100 mg tablet Indications: type 2 diabetes mellitus Take 100 mg by mouth 1 (one) time each day. 0 09/10/2022 Discontinued (Pharmacy Med Rec) [facility] daily SITagliptin (JANUVIA) 50 mg tablet Take 50 mg by mouth daily. 0 Active sodium zirconium cyclosilicate 75545 mg powder for oral suspension (1 source) Start: 09-10-2022 End: 09-10-2022 sodium zirconium cyclosilicate (Lokelma) packet 5 g tamsulosin hydrochloride 0.4 mg oral capsule (1 source) alpha-Adrenergic Alan End: 07-26-2020 tamsulosin (FLOMAX) 0.4 mg capsule tamsulosin 0.4 mg capsule 0 07/26/2020 Discontinued (Error) technetium (Tc-99m) sestamibi (CARDIOLITE) injection 29.1 millicurie (1 source) Start: 10-21-2020 End: 10-21-2020 technetium (Tc-99m) sestamibi (CARDIOLITE) injection 29.1 millicurie technetium (Tc-99m) sestamibi (CARDIOLITE) injection 9.5 millicurie (1 source) Start: 10-21-2020 End: 10-21-2020 technetium (Tc-99m) sestamibi (CARDIOLITE) injection 9.5 millicurie tiZANidine 2 mg oral tablet (19 sources) Central alpha-2 Adrenergic Agonist Start: 12-31-2021 End: 09-10-2022 take 1 tablet by mouth twice daily tiZANidine (Zanaflex) 2 mg tablet Indications: muscle spasm Take 2 mg by mouth 2 (two) times a day. 0 03/01/2022 09/10/2022 Discontinued (Pharmacy Med Rec) 24 hr tolterodine tartrate 2 mg extended release oral capsule (2 sources) Cholinergic Muscarinic Antagonist Start: 01-09-2022 End: 01-17-2022 take 2 mg by mouth once daily 2 mg, Oral, Daily, First dose on e 01/09/22 at 1635 DO NOT CRUSH OR CHEW. Start: 10-20-2020 End: 10-22-2020 take 2 mg by mouth once daily 2 mg, Oral, Daily, First dose on [place] 10/20/20 at 0900 DO NOT CRUSH OR CHEW. traZODone hydrochloride 50 mg oral tablet (2 sources) Serotonin Reuptake Inhibitor Start: 01-16-2022 End: 01-16-2022 traZODone (DESYREL) tablet 50 mg Start: 07-26-2020 End: 08-06-2020 take 50 mg by mouth once daily as needed for sleep 50 mg, Oral, Nightly PRN, sleep, Starting 07/26/20 at 1405 [] May repeat times 1 in 30 minutes if still awake. 24 hr divalproex sodium 500 mg extended release oral tablet (3 sources) Mood Stabilizer, Anti-epileptic Agent Start: 05-06-2022 End: 06-30-2023 take 1 tablet by mouth once daily divalproex (Depakote ER) 500 mg 24 hr tablet Take 1 tablet (500 mg total) by mouth 1 (one) time each day. Do not crush, chew, or split. 30 tablet 1 06/30/2022 09/10/2022 Discontinued (Pharmacy Med Rec) 250 ml vancomycin 5 mg/ml injection (3 sources) Glycopeptide Antibacterial Start: 01-13-2022 End: 01-15-2022 take 1250 mg intravenously every twenty-four hours vancomycin (VANCOCIN) 1250 mg in sterile water 250 mL IVPB (Xellia) Start: 01-09-2022 End: 01-12-2022 vancomycin (VANCOCIN) 1500 m g in sterile water 300 mL IVPB (Xellia) vancomycin (VANCOCIN) 1,500 mg in sodium chloride 0.9 % (NS) 500 mL IVPB (1 source) Start: 07-26-2020 End: 07-26-2020 vancomycin (VANCOCIN) 1,500 mg in sodium chloride 0.9 % (NS) 500 mL IVPB vancomycin (VANCOCIN) 1000 mg in sodium chloride (NS) 0.9% 250mL (vialmate) (1 source) Start: 01-15-2022 End: 01-17-2022 take 1000 mg intravenously every twenty-four hours vancomycin (VANCOCIN) 1000 mg in sodium chloride (NS) 0.9% 250mL (vialmate) vancomycin (VANCOCIN) 1250 mg in sodium chloride 0.9% (NS) 250 mL IVPB (2 sources) Start: 08-01-2020 End: 08-03-2020 take 1250 mg intravenous route every twenty-four hours vancomycin (VANCOCIN) 1250 mg in sodium chloride 0.9% (NS) 250 mL IVPB Start: 07-26-2020 End: 07-31-2020 take 1250 mg intravenous route every twelve hours vancomycin (VANCOCIN) 1250 mg in sodium chloride 0.9% (NS) 250 mL IVPB vancomycin per pharmacy 1 ea ch (1 source) Start: 07-26-2020 End: 07-26-2020 vancomycin per pharmacy 1 ea (1 source) Start: 05-02-2022 End: 06-29-2022 [Order 1 Start] Name: dextro se 50% solution 25 mL Signed Summary: 25 mL, intravenous, As needed, low blood sugar, blood glucose less than 60 mg/dL and IV access is available, Starting on Sat05/02/22 at 2144 For the patient who cannot eat or who has altered mentation or is unconscious. Recheck glucose every 30 minutes until above 70. Notify physician. [Order 1 End] [Order 2 Start] Name: glucagon injection 1 mg Signed Summary: 1 mg, intravenous, As needed, blood glucose less than 60 mg/dL, IV access is available, and dextrose 50% is unavailable, Starting on Sat05/02/22 at 2144 For the patient who cannot eat or who has altered mentation or is unconscious. Recheck glucose every 30 minutes until above 70. Notify physician. May repeat every 15 minutes as needed. If patient is not responding to treatment with glucagon, contact provider or pharmacy for other options. [Order 2 End] [Order 3 Start] Name: glucagon injection 1 mg Signed Summary: 1 mg, subcutaneous, As needed, blood glucose less than 60 mg/dL and no IV access, Starting on Sat05/02/22 at 2144 For the patient who cannot eat or who has altered mentation or is unconscious. After glucagon administration, start IV access. Notify physician. Re-assess glucose level every hour until two consecutive readings greater than 60 mg/dL. If persistently below 70 mg/dL after treatment, notify physician. [Order 3 End] Problems Active Problems Problem Classification Problem Date Documented Date Episodic/Chronic Acquired foot deformities (1 source) Left foot drop; Translations: [Foot drop, left foot] Episodic Acute and unspecified renal failure (13 sources) Acute injury of kidney; Translations: [Acute kidney failure, unspecified] Onset: 09-10-20 Resolved : 09-14-20 Episodic Acute cerebrovascular disease (18 sources) Cerebrovascular accident; Translations: [Cerebral infarction, unspecified] Onset: 05-02-20 Resolved : 09-14-20 22 05-02-2021 Chronic Administrative/socia l admission (4 sources) Lives in a assisted; Translations: [Problems related to living in residential institution] Onset: 11-12-19 24 11-12-2023 Episodic Anxiety disorders (18 sources) Posttraumatic stress disorder; Translations: [Post-traumatic stress disorder, unspecified] Onset: 05-02-20 Chronic Attention-deficit, conduct, and disruptive behavior disorders (1 source) Problem behavior; Translations: [Other symptoms and signs involving appearance and behavior] Episodic Cardiac dysrhythmias (1 source) Cardiac arrhythmia; Translations: [Cardiac arrhythmia, unspecified] Onset: 08-20-2008-20-2023 Chronic Chronic kidney disease (20 sources) Chronic kidney disease stage 3; Translations: [Chronic kidney disease, stage III (moderate)] Onset: 05-29-20 Chronic Chronic kidney disease (2 sources) Chronic kidney disease; Translations: [Chronic kidney disease, stage 3a (CMS/HCC)] Onset: 08-21-20 Chronic ulcer of skin (20 sources) Chronic ulcer of foot; Translations: [Non-pressure chronic ulcer of other part of left foot with unspecified severity] Onset: 05-02-20 Resolved : 05-15-2005-15-2021 Chronic Conduction disorders (14 sources) Liqlc-Qbemkzzne-Akocu pattern; Translations: [Pre-excitation syndrome] Onset: 05-02-20 Resolved : 09-14-2005-02-2021 Chronic Coronary atherosclerosis and other heart disease (13 sources) Coronary atherosclerosis; Translations: [Atherosclerotic heart disease of [place] coronary artery without angina pectoris] Onset: 03-01-20 Chronic Deficiency and other anemia (1 source) Anemia; Translations: [Anemia in other chronic diseases classified elsewhere] Onset: 04-25-20 Chronic Deficiency and other anemia (20 sources) Anemia; Translations: [Anemia, unspecified] Onset: 05-03-2005-15-2021 Episodic Deficiency and other anemia (4 sources) Chronic anemia; Translations: [Anemia, unspecified] Onset: 05-03-20 Episodic Deficiency and other anemia (1 source) Normocytic anemia; Translations: [Anemia, unspecified] Episodic Diabetes mellitus with complications (20 sources) Type 2 diabetes mellitus with ulcer; Translations: [Type 2 diabetes mellitus with foot ulcer] Onset: 02-08-20 Resolved : 09-14-20 Chronic Diabetes mellitus without complication (20 sources) Type 2 diabetes mellitus; Translations: [Type 2 diabetes mellitus without complications] Onset: 05-02-20 21 05-15-2021 Chronic Diabetes mellitus without complication (2 sources) Hyperglycemia; Translations: [Hyperglycemia, unspecified] 09-22-2022 Episodic Disorders of lipid metabolism (20 sources) Hypercholesterolemia; Translations: [Pure hypercholesterolemia, unspecified] Onset: 10-15-20 Resolved : 09-14-2007-25-2021 Chronic Esophageal disorders (20 sources) Gastroesophageal reflux disease; Translations: [Gastro-esophageal reflux disease without esophagitis] Onset: 05-03-20 Resolved : 09-14-2005-15-2021 Chronic Essential hypertension (20 sources) Hypertensive disorder; Translations: [Essential (primary) hypertension] Onset: 01-18-2005-15-2021 Chronic Fever of unknown origin (1 source) Fever; Translations: [Fever, unspecified] Onset: 03-02-20 Episodic Fluid and electrolyte disorders (14 sources) Hyponatremia; Translations: [Hypo-osmolality and or hyponatremia] Onset: 07-26-20 Resolved : 09-14-2007-25-2021 Episodic Genitourinary symptoms and ill-defined conditions (11 sources) Urogenital finding; Translations: [Presence of urogenital implants] Onset: 10-19-20 Resolved : 09-14-2007-25-2021 Chronic Genitourinary symptoms and ill-defined conditions (20 sources) Shin hematuria; Translations: [Retention of urine] Onset: 08-15-20 Resolved : 09-14-2008-15-2020 Episodic Impulse control disorders, NEC (1 source) Impulse control disorder Onset: 09-26-20 Chronic Impulse control disorders, NEC (1 source) Homicidal thoughts Onset: 09-24-20 Episodic Intestinal obstruction without hernia (1 source) Fecal impaction; Translations: [Fecal impaction] Episodic Mood disorders (20 sources) Depressive disorder; Translations: [Major depressive disorder, single episode, unspecified] Onset: 08-08-20 Resolved : 09-14-2005-02-2021 Chronic Nausea and vomiting (2 sources) Nausea; Translations: [Nausea] Onset: 03-01-2009-22-2022 Episodic Open wounds of extremities (20 sources) Amputated below knee; Translations: [Complete traumatic amputation at level between knee and ankle, unspecified lower leg, initial encounter] Onset: 08-03-20 Resolved : 09-14-20 22 07-25-2021 Chronic Open wounds of extremities (16 sources) Open wound of foot; Translations: [Open wound of right foot] Onset: 07-26-20 Resolved : 05-15-20 21 05-15-2021 Episodic Other aftercare (2 sources) Long-term current use of drug therapy; Translations: [Other long term care pharmacist (current) drug therapy] Onset: 03-01-20 Episodic Other aftercare (2 sources) Other custodial (current) drug therapy; Translations: [Other long term care pharmacist (current) drug therapy] Onset: 12-02-19 Episodic Other bone disease and musculoskeletal deformities (2 sources) Acquired absence of right leg below knee; Translations: [Acquired absence of right leg below knee (HC CODE)] Onset: 07-28-20 Chronic Other bone disease and musculoskeletal deformities (3 sources) Amputated right lower limb below knee; Translations: [Acquired absence of right leg below knee] Onset: 03-01-20 Chronic Other circulatory disease (1 source) H/O: artificial organ/tissue; Translations: [Presence of other vascular implants and grafts] Onset: 03-01-20 Chronic Other circulatory disease (1 source) Elevated blood pressure; Translations: [Elevated blood pressure reading] Episodic Other circulatory disease (6 sources) Orthostatic hypotension; Translations: [Orthostatic hypotension] Onset: 05-02-20 Resolved : 09-14-20 22 05-15-2021 Episodic Other circulatory disease (4 sources) History of cerebrovascular disease; Translations: [Personal history of transient ischemic attack (TIA), and cerebral infarction without residual deficits] Onset: 07-25-20 21 07-25-2021 Episodic Other circulatory disease (1 source) History of transient ischemic attack; Translations: [Personal history of transient ischemic attack (TIA), and cerebral infarction without residual deficits] Onset: 03-01-20 Episodic Other circulatory disease (1 source) Low blood pressure; Translations: [Hypotension, unspecified] Onset: 04-25-20 Episodic Other connective tissue disease (1 source) Muscle atrophy Onset: 10-22-20 Episodic Other diseases of bladder and urethra (4 sources) Overactive bladder; Translations: [Overactive bladder] Onset: 09-13-20 Resolved : 09-14-2007-25-2021 Chronic Other diseases of bladder and urethra (20 sources) Neurogenic bladder; Translations: [Neuromuscular dysfunction of bladder, unspecified] Onset: 07-25-20 21 07-25-2021 Chronic Other diseases of bladder and urethra (2 sources) Neurogenic dysfunction of the urinary bladder; Translations: [Neuromuscular dysfunction of bladder, unspecified] Onset: 03-01-20 Chronic Other diseases of bladder and urethra (1 source) Hypertrophy of bladder; Translations: [Bladder wall thickening] Episodic Other diseases of bladder and urethra (1 source) Mass of urinary bladder; Translations: [Mass of urinary bladder] Episodic Other diseases of kidney and ureters (1 source) Hydroureteronephrosis ; Translations: [Hydroureteronephrosis] Episodic Other diseases of kidney and ureters (2 sources) Renal impairment; Translations: [Disorder of kidney and ureter, unspecified] 09-09-2022 Episodic Other ear and sense organ disorders (1 source) Impacted cerumen, bilateral; Translations: [Impacted cerumen, bilateral] Onset: 10-15-20 Episodic Other eye disorders (2 sources) Hemorrhage of left vitreous body; Translations: [Vitreous hemorrhage] Onset: 08-21-20 23 08-21-2023 Chronic Other eye disorders (1 source) Hemorrhage of right vitreous body; Translations: [Vitreous hemorrhage, right eye] Onset: 09-13-2009-13-2023 Chronic Other eye disorders (2 sources) Vitreous hemorrhage, right eye; Translations: [Vitreous hemorrhage, right eye (CMS/HCC)] Onset: 09-13-20 Chronic Other injuries and conditions due to external causes (1 source) Local infection of wound; Translations: [Other injury of unspecified body region, initial encounter] Episodic Other injuries and conditions due to external causes (9 sources) Systemic inflammatory response syndrome; Translations: [Systemic inflammatory response syndrome (SIRS) of non-infectious origin without acute organ dysfunction] Onset: 10-05-20 Episodic Other nutritional; endocrine; and metabolic disorders (20 sources) Obesity; Translations: [Obesity, unspecified] Onset: 02-25-20 15 05-15-2021 Chronic Other nutritional; endocrine; and metabolic disorders (1 source) Morbid obesity Onset: 10-22-20 Chronic Other nutritional; endocrine; and metabolic disorders (1 source) H/O: diabetes mellitus; Translations: [H/O diabetes mellitus] Episodic Other screening for suspected conditions (not mental disorders or infectious disease) (20 sources) Electrocardiogram abnormal; Translations: [Abnormal electrocardiogram [ECG] [EKG]] Onset: 07-26-20 Resolved : 09-14-2010-21-2020 Episodic Other screening for suspected conditions (not mental disorders or infectious disease) (1 source) Elevated C-reactive protein; Translations: [Elevated C-reactive protein (CRP)] Peripheral and visceral atherosclerosis (14 sources) Peripheral vascular disease, unspecified; Translations: [Peripheral vascular disease, unspecified] Onset: 08-21-20 Chronic Personality disorders (6 sources) 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; 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] Onset: 09-08-20 Chronic Residual codes; unclassified (16 sources) Obstructive sleep apnea syndrome; Translations: [Obstructive sleep apnea (adult) (pediatric)] Onset: 01-18-2005-15-2021 Chronic Residual codes; unclassified (2 sources) Sleep apnea; Translations: [Sleep apnea, unspecified] Chronic Residual codes; unclassified (2 sources) Dependence on wheelchair; Translations: [Dependence on wheelchair] Onset: 11-12-1911-12-2023 Chronic Residual codes; unclassified (2 sources) Obstructive sleep apnea (adult) (pediatric); Translations: [Obstructive sleep apnea (adult) (pediatric)] Onset: 08-20-20 Chronic Residual codes; unclassified (2 sources) Dependence on wheelchair; Translations: [Dependence on wheelchair] Onset: 11-12-19 Chronic Residual codes; unclassified (1 source) Hallucinations; Translations: [Hallucinations, unspecified] 09-22-2022 Episodic Residual codes; unclassified (1 source) Patient encounter status; Translations: [Other specified health status] Onset: 04-25-20 Episodic Residual codes; unclassified (1 source) Device in situ; Translations: [Presence of other specified devices] Onset: 10-05-20 Episodic Retinal detachments; defects; vascular occlusion; and retinopathy (2 sources) Retinal edema; Translations: [Retinal edema] Onset: 09-13-20 Chronic Spondylosis; intervertebral disc disorders; other back problems (4 sources) Cervico-occipital neuralgia; Translations: [Occipital neuralgia] Onset: 05-06-20 Episodic Superficial injury; contusion (1 source) Abrasion, left foot, initial encounter; Translations: [Abrasion of skin of left foot] Onset: 03-01-20 Episodic Unclassified (20 sources) Open wound of left foot; Translations: [Open wound of left foot] Onset: 07-26-20 20 07-26-2020 Unclassified (4 sources) Protein level - finding; Translations: [Elevated troponin] Onset: 10-21-20 20 10-21-2020 Unclassified (1 source) Acute respiratory distress syndrome due to COVID-19 Onset: 11-27-19 Unclassified (10 sources) Amputated right lower limb below knee 05-06-2023 Unclassified (8 sources) History of amputation of right leg through tibia and fibula 10-05-2023 Past or Other Problems Problem Classification Problem Date Documented Date Episodic/Chronic Attention-deficit, conduct, and disruptive behavior disorders (4 sources) Aggressive behavior; Translations: [Other symptoms and signs involving appearance and behavior] Onset: 05-02-2022 Resolved: 09-14-2022 Episodic Bacterial infection; unspecified site (11 sources) Infection due to ESBL bacteria; Translations: [Bacteremia] Onset: 04-25-2023 04-29-2023 Episodic Comment on above: ESBL Proteus mirabil is in urine 04/25/2023 Blindness and vision defects (1 source) Visual hallucinations; Translations: [Visual hallucinations] Onset: 09-22-2022 Episodic Complication of device; implant or graft (3 sources) Disorders of urogenital prostheses or implants; Translations: [Unspecified complication of genitourinary prosthetic device, implant and graft, initial encounter] Onset: 04-26-2023 Episodic Fracture of lower limb (4 sources) Open fracture of calcaneus; Translations: [Unspecified fracture of right calcaneus, initial encounter for open fracture] Onset: 05-02-2021 Resolved: 05-15-2021 05-15-2021 Episodic Gangrene (4 sources) Gangrene of right foot; Translations: [Gangrene, not elsewhere classified] Onset: 05-02-2021 Resolved: 05-15-2021 05-15-2021 Episodic Genitourinary congenital anomalies (4 sources) Hypospadias, penile; Translations: [Hypospadias, penile] Onset: 08-15-2020 Resolved: 09-14-2022 07-25-2021 Chronic Headache; including migraine (3 sources) Chronic daily headache; Translations: [Chronic daily headache] Onset: 05-06-2022 Resolved: 05-28-2022 Episodic Infective arthritis and osteomyelitis (except that caused by tuberculosis or sexually transmitted disease) (5 sources) Osteomyelitis; Translations: [Osteomyelitis, unspecified] Onset: 05-02-2021 Resolved: 05-03-2021 05-03-2021 Chronic Malaise and fatigue (4 sources) Asthenia; Translations: [Weakness] Onset: 10-19-2020 Resolved: 09-14-2022 07-25-2021 Episodic Nonspecific chest pain (20 sources) Chest pain; Translations: [Chest pain, unspecified] Onset: 10-21-2020 Resolved: 09-14-2022 10-21-2020 Episodic Other aftercare (3 sources) Follow-up status; Translations: [Encounter for change or removal of nonsurgical wound dressing] Onset: 10-20-2020 Resolved: 09-14-2022 07-25-2021 Episodic Other bone disease and musculoskeletal deformities (20 sources) Absence of toe; Translations: [Amputated toe of right foot] Onset: 08-03-2016 08-03-2016 Episodic Other circulatory disease (3 sources) Elevated blood-pressure reading without diagnosis of hypertension; Translations: [Elevated blood-pressure reading, without diagnosis of hypertension] Onset: 07-26-2020 Resolved: 09-14-2022 07-25-2021 Episodic Other circulatory disease (8 sources) History of cerebrovascular accident; Translations: [Personal history of transient ischemic attack (TIA), and cerebral infarction without residual deficits] Onset: 11-01-2020 11-28-2021 Episodic Other diseases of kidney and ureters (3 sources) Hydronephrosis; Translations: [Unspecified hydronephrosis] Onset: 08-15-2020 Resolved: 09-14-2022 07-25-2021 Episodic Other ear and sense organ disorders (3 sources) Impacted cerumen; Translations: [Impacted cerumen, unspecified ear] Onset: 07-25-2021 Resolved: 09-14-2022 07-25-2021 Episodic Other ear and sense organ disorders (1 source) Impacted cerumen in right ear; Translations: [Impacted cerumen, right ear] Episodic Other endocrine disorders (4 sources) Hypoglycemia; Translations: [Hypoglycemia, unspecified] Onset: 05-03-2021 Resolved: 05-15-2021 05-15-2021 Chronic Other fractures (7 sources) Compression fracture of thoracic vertebra; Translations: [Wedge compression fracture of unspecified thoracic vertebra, initial encounter for closed fracture] Onset: 04-25-2021 11-28-2021 Episodic Other hematologic conditions (5 sources) Protein level - finding; Translations: [Other specified abnormalities of plasma proteins] Onset: 10-21-2020 07-25-2021 Episodic Other hematologic conditions (8 sources) Raised cardiac enzyme or marker; Translations: [Other specified abnormalities of plasma proteins] Onset: 10-21-2020 Resolved: 09-14-2022 10-21-2020 Episodic Other injuries and conditions due to external causes (3 sources) At risk for falls ; Translations: [History of falling] Onset: 10-27-2020 07-25-2021 Episodic Other nervous system disorders (4 sources) Neuropathy; Translations: [Polyneuropathy, unspecified] Onset: 07-25-2021 Resolved: 09-14-2022 Chronic Other nervous system disorders (3 sources) Abnormal gait; Translations: [Unspecified abnormalities of gait and mobility] Onset: 07-25-2021 Resolved: 09-14-2022 07-25-2021 Episodic Other nervous system disorders (3 sources) Impaired cognition; Translations: [Other symptoms and signs involving cognitive functions and awareness] Onset: 07-25-2021 Resolved: 09-14-2022 07-25-2021 Episodic Other nervous system disorders (3 sources) Impairment of balance; Translations: [Other abnormalities of gait and mobility] Onset: 07-25-2021 Resolved: 09-14-2022 07-25-2021 Episodic Other nutritional; endocrine; and metabolic disorders (3 sources) H/O: Disorder; Translations: [Personal history of other endocrine, nutritional and metabolic disease] Onset: 07-26-2020 Resolved: 09-14-2022 07-25-2021 Episodic Residual codes; unclassified (3 sources) At risk of venous thromboembolus; Translations: [Other specified personal risk factors, not elsewhere classified] Onset: 11-02-2020 Resolved: 09-14-2022 07-25-2021 Episodic Residual codes; unclassified (3 sources) Postprocedural state finding; Translations: [Other specified postprocedural states] Onset: 08-15-2020 Resolved: 09-14-2022 07-25-2021 Episodic Residual codes; unclassified (3 sources) Urinary catheter in situ; Translations: [Presence of other specified devices] Onset: 05-02-2022 Resolved: 05-28-2022 Episodic Retinal detachments; defects; vascular occlusion; and retinopathy (4 sources) Traction detachment of left retina; Translations: [Traction detachment of retina] Onset: 08-20-2023 08-21-2023 Episodic Screening and history of mental health and substance abuse codes (1 source) Encounter for general psychiatric examination, requested by authority; Translations: [Encounter for general psychiatric examination, requested by authority] Onset: 09-09-2022 Episodic Septicemia (except in labor) (17 sources) Sepsis; Translations: [Sepsis, unspecified organism] Onset: 10-19-2020 Resolved: 09-14-2022 10-19-2020 Episodic Skin and subcutaneous tissue infections (4 sources) Cellulitis; Translations: [Cellulitis, unspecified] Onset: 07-26-2020 Resolved: 09-14-2022 07-25-2021 Episodic Unclassified (1 source) Never smoked tobacco; Translations: [Never a smoker] Unclassified (1 source) Onset: 11-12-2023 11-12-2023 Urinary tract infections (11 sources) Pyelonephritis; Translations: [Tubulointerstitial nephritis] Onset: 10-19-2020 Resolved: 09-14-2022 07-25-2021 Episodic Results Test Name Value Interpretation Reference Range Facility Consent for Treatmenton Consent for Treatment [id number]#1.00TIF F Normal [facility] Office/Cl inic Noteon 12-13-2023 Heart and Vascular Office/Clinic Note Normal [facility] Comment on above: Result Comment: Elec tronically Signed By: Scottie GAMEZ, Tanya Malone\.br\Date and Time Signed: 12/13/23 13:23 EST Physician Orderon 12-13-2023 Physician Order [id number]#1.00TI FF Normal [facility] Physician Order [id number]#1.00TIF F Normal [facility] Reference Laboratory Testing Ordered By: Maira Galdamez on 12-13-2023 [facility] 24 h Invalid Interpretation Code [facility] [place] [place] SendOutsSS Urine Vol/Per Ref Labon [facility] 24 hour(s) Invalid Interpretation Code [facility] Comment on above: Order Comment: Order added by Discern Expert Performed By: #### 9 [id number] ####[id number] [place] [address] Urine Vol/Per Ref LabOrdered By: Maira Galdamez on 12-13-2023 Specimen volume Unsp time (U) 1150 mL Invalid Interpretation Code [facility] [place] SendOutsSS Comment on above: Order Comment: Order added by Discern Expert Performed By: #### 9 [id number] ####[facility] [address] [place] [address] Immunoglobs. A/E/G/Mon 12-11 IgA Quant duplt test Invalid Interpretation Code [facility] Comment on above: Order Comment: Pleas e fax results to [facility] [phone]. Performed By: #### 2 641370, 4950923, 78785900, 8416669, 65985369, 146186061, 36789452 ####[facility] [address] [place] [address] IgG Quant duplt test Invalid Interpretation Code [facility] Comment on above: Order Comment: Pleas e fax results to [facility] [phone]. Performed By: #### 2 410516, 1989615, 52111301, 3144651, 78650798, 815200604, 61875575 ####[facility] [address] [place] [address] IgM Quant dulpt test Invalid Interpretation Code [facility] Comment on above: Order Comment: Pleas e fax results to [address] [place] [address]. Performed By: #### 2 264870, 5664548, 16463748, 5363340, 23227617, 677093679, 02988538 ####[facility] [address] [place] [address] Consent for Treatmenton 0 Consent for Treatment [id number]#1.00TIF F Normal [facility] Free K+L Lt Chains,Qn,Son Immunoglobulin light chains.kappa.free (S) [Mass/Vol] 114.0 mg/L High 3.3-19.4 [facility] Comment on above: Order Comment: Pleas e fax results to [place] [address]. Performed By: #### 2 632662, 0085365, 25506543, 6247063, 59344702, 886291919, 15715189 ####[facility] [address] [place] [address] Immunoglobulin light chains.kappa.free/Immun oglobulin light chains.lambda.free (S) [Mass ratio] 2.34 High 0.26-1.65 [facility] Comment on above: Order Comment: Pleas e fax results to [place] [address]. Result Comment: Perf ormed at: [facility] [address] [place], [place] [id number] PhD Darryl Ramirez Performed By: #### 2 187432, 0880702, 42387236, 4940312, 80449955, 395732020, 38235857 ####[facility] [address] [place] [address] Immunoglobulin light chains.lambda.free [Mass/Vol] 48.8 mg/L High 5.7-26.3 [facility] Comment on above: Order Comment: Pleas e fax results to [facility] [phone]. Performed By: #### 2 954987, 3504457, 95170671, 2407433, 75013416, 706137414, 70969663 ####[facility] [address] [place] [address] TARAN and PE, Serumon 12-10-19 24 Albumin [Mass/Vol] 3.4 g/dL Invalid Interpretation Code 2.9-4.4 [facility] Comment on above: Order Comment: Pleas e fax results to [facility] [phone]. Performed By: #### 2 000823, 2728099, 95183093, 3735130, 99988698, 081333050, 48025356 ####[address] [address] Albumin/Globulin [Mass ratio] 1.0 {ratio} Invalid Interpretation Code 0.7-1.7 [facility] Comment on above: Order Comment: Pleas e fax results to [facility] [phone]. Performed By: #### 2 364349, 2602684, 67058382, 9965796, 46620610, 987799094, 38010884 ####[facility] [address] [place] [address] Alpha 1 globulin Elph [Mass/Vol] 0.2 g/dL Invalid Interpretation Code 0.0-0.4 [facility] Comment on above: Order Comment: Pleas e fax results to [facility] [phone]. Performed By: #### 2 475692, 0995696, 40908890, 7316833, 33025047, 665863410, 86358016 ####[facility] [address] [place] [address] Alpha 2 globulin Elph [Mass/Vol] 1.0 g/dL Invalid Interpretation Code 0.4-1.0 [facility] Comment on above: Order Comment: Pleas e fax results to [place] [address]. Performed By: #### 2 641382, 5012341, 12956411, 7983236, 38615033, 473103684, 56770282 ####[facility] [address] [place] [address] Beta globulin Elph [Mass/Vol] 1.0 g/dL Invalid Interpretation Code 0.7-1.3 [facility] Comment on above: Order Comment: Pleas e fax results to [place] [address]. Performed By: #### 2 742557, 4339553, 59925631, 2593494, 16726814, 575480815, 39151276 ####[facility] [address] [place] [address] Gamma globulin Elph [Mass/Vol] 1.4 g/dL Invalid Interpretation Code 0.4-1.8 [facility] Comment on above: Order Comment: Pleas e fax results to [place] [address]. Performed By: #### 2 890009, 6989473, 32348059, 3184116, 06735264, 647477084, 48429718 ####[facility] [address] [place] [address] Globulin (S) [Mass/Vol] 3.5 g/dL Invalid Interpretation Code 2.2-3.9 [facility] Comment on above: Order Comment: Pleas e fax results to [place] [address]. Performed By: #### 2 616644, 8891591, 03211593, 2268123, 17790646, 438956091, 37166026 ####[facility] [address] [place] [address] IgA [Mass/Vol] 346 mg/dL Invalid Interpretation Code 61-437 [facility] Comment on above: Order Comment: Pleas e fax results to [place] [address]. Performed By: #### 2 429600, 0213821, 15215276, 7980014, 78629777, 336276371, 37178707 ####[facility] [address] [place] [address] IgG [Mass/Vol] 1375 mg/dL Invalid Interpretation Code 635-5553 [facility] Comment on above: Order Comment: Pleas e fax results to [facility] [phone]. Performed By: #### 2 556432, 2980789, 17363265, 4662856, 02417578, 971426748, 74214670 ####[facility] [address] [place] [address] IgM [Mass/Vol] 92 mg/dL Invalid Interpretation Code 20-172 [facility] Comment on above: Order Comment: Pleas e fax results to [facility] [phone]. Performed By: #### 2 127900, 1075954, 02797594, 2700622, 90869597, 545266395, 88963730 ####[facility] [address] [place] [address] Interpretation IEP [Interp] Comment Invalid Interpretation Code [facility] Comment on above: Order Comment: Pleas e fax results to [facility] [phone]. Result Comment: No m onoclonality detected. Performed By: #### 2 160248, 2939077, 54388808, 4792287, 47193199, 940373179, 94493788 ####[facility] [address] [place] [address] Laboratory comment Heri (Report) Comment Invalid Interpretation Code [facility] Comment on above: Order Comment: Pleas e fax results to [facility] [phone]. Result Comment: Prot ein electrophoresis scan will follow via computer, mail, orcourier delivery.Performed at: [facility] [place], [place] [id number] PhD Darryl Ramirez Performed By: #### 2 910578, 3483441, 12881201, 1958812, 73322715, 421225724, 95523616 ####[facility] [address] [place] [address] Protein [Mass/Vol] 6.9 g/dL Invalid Interpretation Code 6.0-8.5 [facility] Comment on above: Order Comment: Pleas e fax results to [facility] [phone]. Performed By: #### 2 502961, 4341870, 02774566, 1739434, 87922928, 862062217, 79893428 ####[facility] [address] [place] [address] Protein.monoclonal Elph [Mass/Vol] Not Observed Invalid Interpretation Code Not Observed [facility] Comment on above: Order Comment: Pleas e fax results to [facility] [phone]. Performed By: #### 2 462758, 8426469, 44197105, 8764638, 75153354, 066082998, 94425609 ####[facility] [address] [place] [address] Immunoglobs. A/E/G/Mon 12-10 IgE Qn 34 International_Unit/mL Invalid Interpretation Code 6-495 [facility] Comment on above: Order Comment: Pleas e fax results to [facility] [phone]. Result Comment: Perf ormed at: [facility] [address] [id number] MD Guy Allen Performed By: #### 2 726557, 4356072, 70890985, 8852334, 86759154, 443335242, 67749626 ####[facility] [address] [place] [address] Oncology Noteon 12-10-2023 Oncology Note Normal [facility] Comment on above: Result Comment: Elec tronically Signed By: Memo WALKER, Carol Garcia.br\Date and Time Signed: 12/10/23 14:45 EST Oncology Progress Noteon Oncology Progress Note Normal [facility] Physician Orderon 12-10-2023 Physician Order [id number]#1.00TI FF Normal [facility] Outside Cardiovascularon Outside Cardiovascular [id number]#1.00TIF F Normal [facility] Outside Labson 12-09-2023 Outside Labs [id number]#1.00TIF F Normal [facility] Consultation Noteon 12-07-19 Consultation Note [id number]#1.00TIF F Normal [facility] Recordson 12-06 Penitentiary Records [id number]#1.00TIF F [facility] CBC w/ Auto Diffon 4 Basophil Absolute 0.0 E9/L Normal 0.0-0.2 [facility] Comment on above: Performed By: #### 2 552764, 8006021, 56596442, 8492254, 91682288, 060112648, 97460720 ####[facility] [address] [place] [address] Basophils/100 WBC (Bld) 0.3 % Normal 0.0-2.0 F [facility] Comment on above: Performed By: #### 2 447168, 3152417, 61353314, 6269037, 01595576, 053486986, 95472723 ####[facility] [address] [place] [address] Eos Absolute 0.3 E9/L Normal 0.0-0.5 [facility] Comment on above: Performed By: #### 2 687483, 6737341, 34310751, 6979349, 02862511, 521628265, 63640003 ####[facility] [address] [place] [address] Eosinophils/100 WBC (Bld) 4.2 % Normal 0.0-8.0 [facility] Comment on above: Performed By: #### 2 136330, 2441123, 06941205, 8909671, 58936490, 030748423, 52208119 ####[facility] [address] [place] [address] Erythrocyte distribution width (RBC) [Ratio] 13.5 % Normal 10.9-14.2 [facility] Comment on above: Performed By: #### 2 099657, 1259484, 92435292, 4087127, 67805655, 962680369, 60299617 ####[address] [place] [address] Hematocrit (Bld) [Volume fraction] 29.0 % Low 37.7-49.0 [facility] Comment on above: Performed By: #### 2 124798, 8999588, 92892845, 9425808, 28654360, 442310450, 61707290 ####[address] [place] [address] Hemoglobin (Bld) [Mass/Vol] 9.9 g/dL Low 13.5-17.5 [facility] Comment on above: Performed By: #### 2 893029, 1893591, 22992185, 8197342, 15777536, 399877269, 35731908 ####[address] [place] [address] Lymph Absolute 1.3 E9/L Normal 1.0-4.0 [facility] Comment on above: Performed By: #### 2 964402, 6334861, 20747022, 0025372, 78429954, 760876453, 07825754 ####[address] [place] [address] Lymphocytes/100 WBC (Bld) 17.5 % Normal 14.0-50.0 [facility] Comment on above: Performed By: #### 2 559278, 8025453, 29110403, 8770635, 62592722, 928885339, 48299996 ####[address] [place] [address] MCH (RBC) [Entitic mass] 31.0 pg Normal 27.0-34.0 [facility] Comment on above: Performed By: #### 2 441462, 5514287, 10452604, 3953718, 84718180, 826886850, 90816770 ####[address] [place] [address] MCHC (RBC) [Mass/Vol] 34.1 g/dL Normal 31.4-36.0 [facility] Comment on above: Performed By: #### 2 094152, 4048427, 10160269, 0990661, 32102948, 723455635, 18737015 ####[address] [address] MCV (RBC) [Entitic vol] 91.0 fL Normal 80.0-100.0 F [facility] Comment on above: Performed By: #### 2 388735, 2850010, 07229321, 7880334, 94213945, 081536301, 57759708 ####[address] [address] Rhea Absolute 0.6 E9/L Normal 0.2-1.0 [facility] Comment on above: Performed By: #### 2 897662, 4826065, 29186139, 3329778, 44951022, 821530155, 87639840 ####[address] [address] Monocytes/100 WBC (Bld) 8.3 % Normal 4.0-14.0 F [facility] Comment on above: Performed By: #### 2 067571, 4883221, 10219664, 9088786, 09927279, 220122173, 37412165 ####[address] [address] Neutro Absolute 5.3 E9/L Normal 2.0-7.5 [facility] Comment on above: Performed By: #### 2 832661, 2397748, 25525046, 6655293, 84903318, 539284455, 17145419 ####[facility] [address] [place] [address] Neutro Auto 69.7 % Normal 36.0-75.0 [facility] Comment on above: Performed By: #### 2 790279, 7649509, 02160655, 4471540, 77328717, 359780672, 73712108 ####[facility] [address] [place] [address] Platelet 306.0 E9/L Normal 150.0-500.0 [facility] Comment on above: Performed By: #### 2 579585, 3138374, 46343543, 3610449, 97370075, 687485454, 66352976 ####[facility] [address] [place] [address] Platelet mean volume (Bld) [Entitic vol] 6.3 fL Low 6.4-10.8 [facility] Comment on above: Performed By: #### 2 333575, 5948429, 89589386, 9170072, 32309532, 805165837, 03956259 ####[address] [place] [address] RBC 3.2 E12/L Low 4.3-5.9 [facility] Comment on above: Performed By: #### 2 790569, 1453285, 17275657, 1770833, 98961809, 010171359, 53560907 ####[facility] [address] [place] [address] WBC 7.6 E9/L Normal 4.0-11.0 [facility] Comment on above: Performed By: #### 2 347380, 9523332, 51317229, 3565247, 19431865, 027436165, 77455470 ####[facility] [address] [place] [address] CHEMISTRYOrdered By: SYSTEM SYSTEM on 12-04-2023 Albumin [Mass/Vol] 3.5 g/dL Normal 3.3 - 5.0 gm/dL Remisol Chem Albumin/Globulin [Mass ratio] 0.9 {ratio} Low 1.1 - 2.2 [facility] Chem Alk Phos 115 [iU]/d High 21 - 98 Int._Unit/L Remisol Chem ALT 9 [iU]/d Normal 6 - 46 Int._Unit/L Remisol Chem Anion gap [Moles/Vol] 10 mmol/L Normal 6 - 16 mEq/L R emisol Chem AST 12 [iU]/d Normal 5 - 43 Int._Unit/L Remisol Chem Bili Total 0.3 mg/dL Normal 0.0 - 1.1 mg/dL [facility] Chem Calcium [Mass/Vol] 8.9 mg/dL Normal 8.9 - 11. 1 mg/dL Rem[facility] Chem Chloride [Moles/Vol] 108 mmol/L Normal 101 - 1 11 mmol/L Rem[facility] Chem CO2 [Moles/Vol] 26 mmol/L Normal 21 - 31 mmol/L [facility] Chem Creatinine [Mass/Vol] 2.0 mg/dL High 0.5 - 1.3 mg/dL Remisol Chem eGFR 37 mL/min/1.73 m2 Low >=59mL/min /1 .73 m2 Remisol Chem Globulin (S) [Mass/Vol] 3.9 g/dL Normal 1.4 - 4.0 gm/dL [facility] Chem Glucose [Mass/Vol] 163 mg/dL Normal 55 - 199 mg/dL Rem[facility] Chem Potassium [Moles/Vol] 5.0 mmol/L Normal 3.5 - 5.3 mmol/L Remisol Chem Protein [Mass/Vol] 7.4 g/dL Normal 6.0 - 7.8 gm/dL Rem[facility] Chem Sodium [Moles/Vol] 139 mmol/L Normal 135 - 145 mmol/L Remisol Chem Urea nitrogen [Mass/Vol] 42 mg/dL High 5 - 21 mg/dL Remisol Chem Urea nitrogen/Creatinine [Mass ratio] 21 mg/mg High 10 - 20 Rem[facility] Chem CHEMISTRYOrdered By: Narcisa elizabeth on 12-04-2023 LDH 132 [iU]/d Normal 93 - 218 Int._Unit/L Remisol Chem CMPon 12-04-2023 Albumin [Mass/Vol] 3.5 g/dL Normal 3.3-5.0 [facility] Comment on above: Order Comment: Pleas e fax results to [facility] Hematology Oncology [phone]. Performed By: #### 2 741448, 9122440, 27320091, 7086612, 49156480, 148676137, 39086459 ####[facility] [address] [place] [address] Albumin/Globulin [Mass ratio] 0.9 {ratio} Low 1.1-2.2 [facility] Comment on above: Order Comment: Pleas e fax results to [facility] [phone]. Performed By: #### 2 391172, 0594798, 01210851, 1834334, 94611421, 053432285, 09710548 ####[facility] [address] [place] [address] Alk Phos 115 Int._Unit/L High 21-98 [facility] Comment on above: Order Comment: Pleas e fax results to [facility]ematology Oncology [phone]. Performed By: #### 2 327808, 8539553, 00553198, 2941770, 73014736, 535979187, 95724964 ####[facility] [address] [place] [address] ALT 9 Int._Unit/L Normal 6-46 [facility] Comment on above: Order Comment: Pleas e fax results to [facility] [phone]. Performed By: #### 2 735918, 4087837, 60466272, 9354309, 84962577, 326670072, 23772816 ####[facility] [address] [place] [address] Anion gap [Moles/Vol] 10 mmol/L Normal 6-16 [facility] Comment on above: Order Comment: Pleas e fax results to [facility] [phone]. Performed By: #### 2 207595, 4201832, 10512136, 5093901, 19555443, 359443076, 27722007 ####[facility] [address] [place] [address] AST 12 Int._Unit/L Normal 5-43 [facility] Comment on above: Order Comment: Pleas e fax results to [place] [address]. Performed By: #### 2 590411, 0642571, 63233147, 1097209, 40535336, 209834652, 37679627 ####[facility] [address] [place] [address] Bili Total 0.3 mg/dL Normal 0.0-1.1 [facility] Comment on above: Order Comment: Pleas e fax results to [place] [address]. Performed By: #### 2 439368, 8035289, 24656086, 6787684, 40025698, 875876584, 92516908 ####[facility] [address] [place] [address] BUN/Creat Ratio 21 No Units High 10-20 [facility] Comment on above: Order Comment: Pleas e fax results to [place] [address]. Performed By: #### 2 378964, 2796017, 32589455, 1006387, 59132198, 763200750, 85636312 ####[facility] [address] [place] [address] Calcium [Mass/Vol] 8.9 mg/dL Normal 8.9-11.1 [facility] Comment on above: Order Comment: Pleas e fax results to [place] [address]. Performed By: #### 2 747369, 2253709, 55900094, 1242846, 84338739, 818551529, 42276825 ####[facility] [address] [place] [address] Chloride [Moles/Vol] 108 mmol/L Normal 101-111 [facility] Comment on above: Order Comment: Pleas e fax results to [facility] [phone]. Performed By: #### 2 652507, 0002599, 30854968, 8322061, 43867219, 079087959, 50132784 ####[facility] [address] [place] [address] CO2 [Moles/Vol] 26 mmol/L Normal 21-31 [facility] Comment on above: Order Comment: Pleas e fax results to [facility] [phone]. Performed By: #### 2 425531, 6979035, 07645493, 7034736, 90336215, 876851912, 11695274 ####[facility] [address] [place] [address] Creatinine [Mass/Vol] 2.0 mg/dL High 0.5-1.3 [facility] Comment on above: Order Comment: Pleas e fax results to [place] [address]. Performed By: #### 2 948520, 8819510, 63736476, 6717879, 22432545, 450196514, 16826987 ####[facility] [address] [place] [address] Globulin (S) [Mass/Vol] 3.9 g/dL Normal 1.4-4.0 F [facility] Comment on above: Order Comment: Pleas e fax results to [facility] [phone]. Performed By: #### 2 920073, 6283801, 05383870, 7824619, 43928642, 674800384, 17608466 ####[facility] [address] [place] [address] Glucose [Mass/Vol] 163 mg/dL Normal 55-199 [facility] Comment on above: Order Comment: Pleas e fax results to [facility] [phone]. Performed By: #### 2 102220, 0318765, 72773830, 2984022, 43681829, 760410862, 95654777 ####[facility] [address] [place] [address] Potassium [Moles/Vol] 5.0 mmol/L Normal 3.5-5.3 [facility] Comment on above: Order Comment: Pleas e fax results to [facility] [phone]. Performed By: #### 2 944065, 1156954, 59131396, 2461060, 23653237, 239994529, 71153911 ####[facility] [address] [place] [address] Protein [Mass/Vol] 7.4 g/dL Normal 6.0-7.8 [facility] Comment on above: Order Comment: Pleas e fax results to [place] [address]. Performed By: #### 2 792719, 0392881, 46397766, 4333206, 76822259, 345821422, 65584918 ####[facility] [address] [place] [address] Sodium [Moles/Vol] 139 mmol/L Normal 135-145 [facility] Comment on above: Order Comment: Pleas e fax results to [place] [address]. Performed By: #### 2 387132, 9993555, 30100760, 7254957, 39478296, 097598244, 12237060 ####[facility] [address] [place] [address] Urea nitrogen [Mass/Vol] 42 mg/dL High 5-21 [facility] Comment on above: Order Comment: Pleas e fax results to [place] [address]. Performed By: #### 2 264170, 1944092, 31756254, 7844286, 55416023, 998026649, 46574623 ####[facility] [address] [place] [address] Consent for Treatmenton 11-06 Consent for Treatment [id number]#1.00TIF F Normal [facility] HEMATOLOGYOrdered By: SYSTEM SYSTEM on 12-04-2023 Basophil Absolute 0.0 E9/L Normal 0.0 - 0.2 E9/L Rem[facility] Heme Basophils/100 WBC (Bld) 0.3 % Normal 0.0 - 2.0 % [facility] Heme Eos Absolute 0.3 E9/L Normal 0.0 - 0.5 E9/L [facility] Heme Eosinophils/100 WBC (Bld) 4.2 % Normal 0.0 - 8.0 % Rem[facility] Heme Erythrocyte distribution width (RBC) [Ratio] 13.5 % Normal 10.9 - 14.2 % [facility] Heme Hematocrit (Bld) [Volume fraction] 29.0 % Low 37.7 - 49.0 % [facility] Heme Hemoglobin (Bld) [Mass/Vol] 9.9 g/dL Low 13.5 - 17.5 gm/dL [facility] Heme Lymph Absolute 1.3 E9/L Normal 1.0 - 4.0 E9/L [facility] Heme Lymphocytes/100 WBC (Bld) 17.5 % Normal 14.0 - 50.0 % [facility] Heme MCH (RBC) [Entitic mass] 31.0 pg Normal 27.0 - 34.0 pg [facility] Heme MCHC (RBC) [Mass/Vol] 34.1 g/dL Normal 31.4 - 36.0 gm/dL [facility] Heme MCV (RBC) [Entitic vol] 91.0 fL Normal 80.0 - 100.0 fL Rem[facility] Heme Rhea Absolute 0.6 E9/L Normal 0.2 - 1.0 E9/L [facility] Heme Monocytes/100 WBC (Bld) 8.3 % Normal 4.0 - 14.0 % [facility] Heme Neutro Absolute 5.3 E9/L Normal 2.0 - 7.5 E9/L [facility] Heme Neutro Auto 69.7 % Normal 36.0 - 75.0 % [facility] Platelet 306.0 E9/L Normal 150.0 - 500.0 E9/L [facility] Heme Platelet mean volume (Bld) [Entitic vol] 6.3 fL Low 6.4 - 10.8 fL Rem[facility] Heme RBC 3.2 E12/L Low 4.3 - 5.9 E12/L [facility] Heme WBC 7.6 E9/L Normal 4.0 - 11.0 E9/L Rem[facility] Heme LDHon 12-04-2023 LDH 132 Int._Unit/L Normal 93-218 [facility] Comment on above: Order Comment: Senait walsh fax results to [facility] H[facility]ology Oncology [phone]. Performed By: #### 2 461987, 0029723, 07003013, 2861178, 29701339, 030288374, 66879203 ####[facility] [address] [place] [address] Penitentiary Recordson 12-04 Penitentiary Records [id number]#1.00TIF F Normal [facility] Penitentiary Records [id number]#1.00TIF F Normal [facility] Physician Orderon 12-04-2023 Physician Order [id number]#1.00TIF F Normal [facility] eGFRon 12-04-2023 eGFR 37 mL/min/1.73 m2 Low >=59 [facility] Comment on above: Order Comment: Order added by Discern Expert. Performed By: #### 2 100975, 4982551, 34753836, 5783767, 73140494, 071851171, 52800399 ####[facility] [address] [place] [address] Renal Function Panelon 11-26 Albumin [Mass/Vol] 3.5 g/dL Normal 3.5-4.6 [facility] Comment on above: Order Comment: CALL doctor L0314 tel. [phone], Fax results to [facility] CALL doctor L0314 tel. [phone], Fax results to [facility] Performed By: #### R ENAL #### [facility] [address] [place] [address] Anion gap [Moles/Vol] 12 mmol/L Normal 9-15 [facility] Comment on above: Order Comment: CALL doctor L0314 tel. [phone], Fax results to [facility] CALL doctor L0314 tel. [phone], Fax results to [facility] Performed By: #### R ENAL #### [facility] [address] [place] [address] Calcium [Mass/Vol] 8.7 mg/dL Normal 8.5-9.9 [facility] Comment on above: Order Comment: CALL doctor L0314 tel. [phone], Fax results to [facility] CALL doctor L0314 tel. [phone], [facility]ax [facility] to [facility] Performed By: #### R ENAL #### [facility] [address] [place] [address] Chloride [Moles/Vol] 107 mmol/L Normal 95-107 [facility] Comment on above: Order Comment: CALL doctor L0314 tel. [phone], Fax results to [facility] CALL doctor L0314 tel. [phone], Fax results to [facility] Performed By: #### R ENAL #### [facility] [address] [place] [address] CO2 [Moles/Vol] 21 mmol/L Normal 20-31 [facility] Comment on above: Order Comment: CALL doctor L0314 tel. [phone], Fax results to [facility] CALL doctor L0314 tel. [phone], Fax results to [facility] Performed By: #### R ENAL #### [facility] [address] [place] [address] Creatinine [Mass/Vol] 2.20 mg/dL Critically high 0.70-1.20 [facility] Comment on above: Order Comment: CALL doctor L0314 tel. [phone], Fax results to [facility] CALL doctor L0314 tel. [phone], Fax results to [facility] Performed By: #### R ENAL #### [facility] [address] [place] [address] GFR 33.0 Low >60 [facility] Comment on above: Order Comment: CALL doctor L0314 tel. [phone], Fax results to [facility] CALL doctor L0314 tel. [phone], Fax results to [facility] Result Comment: Pedi atric calculator link https://www.kidney.org/professionals/kdoqi/gfr_calculatorped Effective Aug 06, 2022 These results are not intended for use in patients <18 years of age. eGFR results are calculated without a race factor using the 2020 CKD-EPI equation. Careful clinical correlation is recommended, particularly when comparing to results calculated using previous equations. The CKD-EPI equation is less accurate in patients with extremes of muscle mass, extra-renal metabolism of creatinine, excessive creatinine ingestion, or following therapy that affects renal tubular secretion. Performed By: #### R ENAL #### [facility] [address] [place] [address] Glucose [Mass/Vol] 181 mg/dL Critically high 70-99 M [facility] Comment on above: Order Comment: CALL doctor L0314 tel. [phone], Fax results to [facility] CALL doctor L0314 tel. [phone], Fax results to [facility] Performed By: #### R ENAL #### [facility] [address] [place] [address] Phosphate [Mass/Vol] 3.8 mg/dL Normal 2.3-4.8 [facility] Comment on above: Order Comment: CALL doctor L0314 tel. [phone], Fax results to [facility] CALL doctor L0314 tel. [phone], Fax results to [facility] Performed By: #### R ENAL #### [facility] [address] [place] [address] Potassium [Moles/Vol] 5.0 mmol/L Critically high 3.4-4.9 [facility] Comment on above: Order Comment: CALL doctor L0314 tel. [phone], Fax results to [facility] CALL doctor L0314 tel. [phone], [facility]ax [facility] to [facility] Performed By: #### R ENAL #### [facility] [address] [place] [address] Sodium [Moles/Vol] 140 mmol/L Normal 135-144 [facility] Comment on above: Order Comment: CALL doctor L0314 tel. [phone], Fax results to [facility] CALL doctor L0314 tel. [phone], Fax results to [facility] Performed By: #### R ENAL #### [facility] [address] [place] [address] Urea nitrogen [Mass/Vol] 42 mg/dL Critically high 8-23 [facility] Comment on above: Order Comment: CALL doctor L0314 tel. [phone], Fax results to [facility] CALL doctor L0314 tel. [phone], Fax results to [facility] Performed By: #### R ENAL #### [facility] [address] [place] [address] Formson 11-22-2023 Forms [id number]#1.00TIFF Normal [facility] Consent for Procedure/Surger yon 11-21-2023 Consent for Procedure/Surgery [id number]#1.00TIF F Normal [facility] Consent for Procedure/Surger yon 11-19-2023 Consent for Procedure/Surgery [id number]#1.00TI FF [facility] Consent for Treatmenton 11-04 Consent for Treatment [id number]#1.00TIF F [facility] IntraOperative Documentson 0 11-19-2023 IntraOperative Documents [id number]#1.00TI FF [facility] Main OR Intraoperative Recor don 11-19-2023 Main OR Intraoperative Record Normal [facility] Main OR Preoperative Recordo n 11-19-2023 Main OR Preoperative Record Normal [facility] Operative Reporton Operative Report Normal [facility] Comment on above: Result Comment: Elec tronically Signed By: DAVID GAMEZ, Kaden Carrillo.br\Date and Time Signed: 11/19/23 09:18 EST Patient Educationon 11-19-19 Patient Education Normal [facility] Outside Labson 11-18-2023 Outside Labs [id number]#1.00TI FF Normal [facility] Outside Labson 11-11-2023 Outside Labs [id number] 2021 [id number]#1.00TIF F Normal [facility] Outside Labs [id number]#1.00TI FF Normal [facility] Outside Labs [id number] 2021 [id number]#1.00TIF F Normal [facility] XR Bone Survey Completeon XR Bone Survey Complete Normal F [facility] Consent for Treatmenton Consent for Treatment [id number]#1.00TIF F Normal [facility] Outside Labson 11-07-2023 Outside Labs [id number] 2021 [id number]#1.00TIF F Normal [facility] Auto Diffon 11-06-2023 Basophils/100 WBC (Bld) 0.2 % Normal 0.0-2.0 F [facility] Comment on above: Order Comment: Order Added by Discern Expert. Performed By: #### 2 191373, 0618026, 70458419, 4024807 ####[facility] [address] [place] [address] Basophils/Leukocytes Auto (Bld) [Pure # fraction] 0.0 E9/L Normal 0.0-0.2 [facility] Comment on above: Order Comment: Order Added by Discern Expert. Performed By: #### 2 610761, 3547247, 73944521, 9492990 ####[facility] [address] [place] [address] Eosinophils/100 WBC (Bld) 5.8 % Normal 0.0-8.0 [facility] Comment on above: Order Comment: Order Added by Discern Expert. Performed By: #### 2 853905, 5904095, 48547336, 2076168 ####[facility] [address] [place] [address] Eosinophils/Leukocytes Auto (Bld) [Pure # fraction] 0.6 E9/L High 0.0-0.5 [facility] Comment on above: Order Comment: Order Added by Discern Expert. Performed By: #### 2 126949, 1428830, 80412678, 8969183 ####[facility] [address] [place] [address] Lymphocytes/100 WBC (Bld) 20.6 % Normal 14.0-50.0 [facility] Comment on above: Order Comment: Order Added by Discern Expert. Performed By: #### 2 994845, 9423522, 48698939, 9690932 ####[facility] [address] [place] [address] Lymphocytes/Leukocytes Auto (Bld) [Pure # fraction] 2.0 E9/L Normal 1.0-4.0 [facility] Comment on above: Order Comment: Order Added by Discern Expert. Performed By: #### 2 746498, 8187026, 52515475, 6182146 ####[facility] [address] [place] [address] Monocytes/100 WBC (Bld) 9.8 % Normal 4.0-14.0 [facility] Comment on above: Order Comment: Order Added by Discern Expert. Performed By: #### 2 286236, 1636339, 62384367, 6216288 ####[facility] [address] [place] [address] Monocytes/Leukocytes Auto (Bld) [Pure # fraction] 0.9 E9/L Normal 0.2-1.0 [facility] Comment on above: Order Comment: Order Added by Jimenez Expert. Performed By: #### 2 709631, 6759124, 52770132, 0827394 ####[facility] [address] [place] [address] Neutrophils/100 WBC (Bld) 63.6 % Normal 36.0-75.0 [facility] Comment on above: Order Comment: Order Added by Discern Expert. Performed By: #### 2 136083, 4123174, 37895458, 7764346 ####[facility] [address] [place] [address] Neutrophils/Leukocytes Auto (Bld) [Pure # fraction] 6.1 E9/L Normal 2.0-7.5 [facility] Comment on above: Order Comment: Order Added by Discern Expert. Performed By: #### 2 681558, 7545089, 39838993, 3349213 ####[address] [place] [address] CBC w/ Auto Diffon Erythrocyte distribution width (RBC) [Ratio] 13.3 % Normal 10.9-14.2 [facility] Comment on above: Performed By: #### 2 996533, 8015810, 71476874, 4224016 ####[address] [address] Hematocrit (Bld) [Volume fraction] 27.9 % Low 37.7-49.0 [facility] Comment on above: Performed By: #### 2 259086, 1394833, 58831818, 7646150 ####[address] [place] [address] Hemoglobin (Bld) [Mass/Vol] 9.6 g/dL Low 13.5-17.5 [facility] Comment on above: Performed By: #### 2 660097, 0507941, 71728892, 3908128 ####[address] [place] [address] MCH (RBC) [Entitic mass] 30.9 pg Normal 27.0-34.0 [facility] Comment on above: Performed By: #### 2 342200, 8561509, 93956619, 9910521 ####[address] [place] [address] MCHC (RBC) [Mass/Vol] 34.3 g/dL Normal 31.4-36.0 [facility] Comment on above: Performed By: #### 2 378400, 8357534, 75349231, 3274973 ####[address] [place] [address] MCV (RBC) [Entitic vol] 89.9 fL Normal 80.0-100.0 F [facility] Comment on above: Performed By: #### 2 303787, 2135833, 12653724, 3677369 ####[facility] [address] [place] [address] Platelet mean volume (Bld) [Entitic vol] 6.1 fL Low 6.4-10.8 [facility] Comment on above: Performed By: #### 2 011458, 3139039, 77488442, 0014517 ####[facility] [address] [place] [address] Platelets (Bld) [#/Vol] 291.0 E9/L Normal 150.0-500.0 [facility] Comment on above: Performed By: #### 2 662640, 0013560, 65992920, 9873867 ####[facility] [address] [place] [address] RBC (Bld) [#/Vol] 3.1 E12/L Low 4.3-5.9 [facility] Comment on above: Performed By: #### 2 917125, 7291579, 82015564, 7680523 ####[facility] [address] [place] [address] WBC corrected for nucl RBC Auto (Bld) [#/Vol] 9.6 E9/L Normal 4.0-11.0 [facility] Comment on above: Performed By: #### 2 212540, 8657323, 77534266, 2578953 ####[facility] [address] [place] [address] CHEMISTRYOrdered By: SYSTEM SYSTEM on 11-06-2023 Albumin [Mass/Vol] 3.6 g/dL Normal 3.3 - 5.0 gm/dL Remisol Chem Albumin/Globulin [Mass ratio] 1.0 {ratio} Low 1.1 - 2.2 Remisol Chem Alk Phos 95 [iU]/d Normal 21 - 98 Int._Unit/L Remisol Chem ALT 14 [iU]/d Normal 6 - 46 Int._Unit/L Remisol Chem Anion gap [Moles/Vol] 12 mmol/L Normal 6 - 16 mEq/L R emisol Chem AST 14 [iU]/d Normal 5 - 43 Int._Unit/L Remisol Chem Bili Total 0.3 mg/dL Normal 0.0 - 1.1 mg/dL Rem[facility] Chem Calcium [Mass/Vol] 8.7 mg/dL Low 8.9 - 11. 1 mg/dL Rem[facility] Chem Chloride [Moles/Vol] 108 mmol/L Normal 101 - 1 11 mmol/L Remisol Chem CO2 [Moles/Vol] 21 mmol/L Normal 21 - 31 mmol/L Remisol Chem Creatinine [Mass/Vol] 2.3 mg/dL High 0.5 - 1.3 mg/dL Remisol Chem eGFR 31 mL/min/1.73 m2 Low >=59mL/min /1 .73 m2 Remisol Chem Globulin (S) [Mass/Vol] 3.5 g/dL Normal 1.4 - 4.0 gm/dL Rem[facility] Chem Glucose [Mass/Vol] 215 mg/dL High 55 - 199 mg/dL Rem[facility] Chem Potassium [Moles/Vol] 4.7 mmol/L Normal 3.5 - 5.3 mmol/L Remisol Chem Protein [Mass/Vol] 7.1 g/dL Normal 6.0 - 7.8 gm/dL Rem[facility] Chem Sodium [Moles/Vol] 136 mmol/L Normal 135 - 145 mmol/L Remisol Chem Urea nitrogen [Mass/Vol] 52 mg/dL High 5 - 21 mg/dL Remisol Chem Urea nitrogen/Creatinine [Mass ratio] 23 mg/mg High 10 - 20 Remisol Chem CMPon 11-06-2023 Albumin/Globulin [Mass ratio] 1.0 {ratio} Low 1.1-2.2 [facility] Comment on above: Performed By: #### 2 483668, 6477793, 94020022, 1202623 ####[facility] [address] [place] [address] Globulin (S) [Mass/Vol] 3.5 g/dL Normal 1.4-4.0 F [facility] Comment on above: Performed By: #### 2 911185, 5554088, 51941228, 1350536 ####[facility] [address] [place] [address] Protein [Mass/Vol] 7.1 g/dL Normal 6.0-7.8 [facility] Comment on above: Performed By: #### 2 876364, 1528005, 73116954, 5597213 ####[facility] [address] [place] [address] Albumin [Mass/Vol] 3.6 g/dL Normal 3.3-5.0 [facility] Comment on above: Performed By: #### 2 735188, 6454451, 87881716, 4170445 ####[facility] [address] [place] [address] Alk Phos 95 Int._Unit/L Normal 21-98 [facility] Comment on above: Performed By: #### 2 418156, 6961500, 87038455, 3102191 ####[facility] [address] [place] [address] ALT 14 Int._Unit/L Normal 6-46 [facility] Comment on above: Performed By: #### 2 632824, 9600232, 66436911, 2410396 ####[facility] [address] [place] [address] Anion gap [Moles/Vol] 12 mmol/L Normal 6-16 [facility] Comment on above: Performed By: #### 2 621019, 5268194, 91806466, 2539033 ####[facility] [address] [place] [address] AST 14 Int._Unit/L Normal 5-43 [facility] Comment on above: Performed By: #### 2 309787, 2994054, 40438737, 7587100 ####[facility] [address] [place] [address] Bili Total 0.3 mg/dL Normal 0.0-1.1 [facility] Comment on above: Performed By: #### 2 513766, 4292930, [id number], [id number] ####[facility] [address] [place] [address] BUN/Creat Ratio 23 No Units High 10-20 [facility] Comment on above: Performed By: #### 2 283855, 9211777, 82153084, 2296293 ####[facility] [address] [place] [address] Calcium [Mass/Vol] 8.7 mg/dL Low 8.9-11.1 [facility] Comment on above: Performed By: #### 2 212732, 9249244, 55802608, 2691050 ####[facility] [address] [place] [address] Chloride [Moles/Vol] 108 mmol/L Normal 101-111 [facility] Comment on above: Performed By: #### 2 180552, 3307599, 39155278, 8893495 ####[facility] [address] [place] [address] CO2 [Moles/Vol] 21 mmol/L Normal 21-31 [facility] Comment on above: Performed By: #### 2 495204, 8191562, 36576976, 8641867 ####[facility] [address] [place] [address] Creatinine [Mass/Vol] 2.3 mg/dL High 0.5-1.3 [facility] Comment on above: Performed By: #### 2 823636, 0253217, 97120305, 7298620 ####[facility] [address] [place] [address] Glucose [Mass/Vol] 215 mg/dL High 55-199 [facility] Comment on above: Performed By: #### 2 170383, 2822406, 30846946, 3141957 ####[facility] [address] [place] [address] Potassium [Moles/Vol] 4.7 mmol/L Normal 3.5-5.3 [facility] Comment on above: Performed By: #### 2 217767, 4372718, 12039049, 3659668 ####[facility] [address] [place] [address] Sodium [Moles/Vol] 136 mmol/L Normal 135-145 [facility] Comment on above: Performed By: #### 2 058261, 4174063, 27273779, 2436143 ####[facility] [address] [place] [address] Urea nitrogen [Mass/Vol] 52 mg/dL High 5-21 [facility] Comment on above: Performed By: #### 2 232038, 3233096, 06543300, 9316264 ####[facility] [address] [place] [address] Consent for Treatmenton Consent for Treatment [id number]#1.00TIF F Normal [facility] HEMATOLOGYOrdered By: SYSTEM SYSTEM on 11-06-2023 Basophils/100 WBC (Bld) 0.2 % Normal 0.0 - 2.0 % [facility] Basophils/Leukocytes Auto (Bld) [Pure # fraction] 0.0 E9/L Normal 0.0 - 0.2 E9/L [facility] Eosinophils/100 WBC (Bld) 5.8 % Normal 0.0 - 8.0 % [facility] Eosinophils/Leukocytes Auto (Bld) [Pure # fraction] 0.6 E9/L High 0.0 - 0.5 E9/L [facility] Lymphocytes/100 WBC (Bld) 20.6 % Normal 14.0 - 50.0 % [facility] Lymphocytes/Leukocytes Auto (Bld) [Pure # fraction] 2.0 E9/L Normal 1.0 - 4.0 E9/L [facility] Monocytes/100 WBC (Bld) 9.8 % Normal 4.0 - 14.0 % [facility] Monocytes/Leukocytes Auto (Bld) [Pure # fraction] 0.9 E9/L Normal 0.2 - 1.0 E9/L [facility] Neutrophils/100 WBC (Bld) 63.6 % Normal 36.0 - 75.0 % [facility] Neutrophils/Leukocytes Auto (Bld) [Pure # fraction] 6.1 E9/L Normal 2.0 - 7.5 E9/L [facility] HEMATOLOGYOrdered By: Saud Harrington on 11-06-2023 Erythrocyte distribution width (RBC) [Ratio] 13.3 % Normal 10.9 - 14.2 % [facility] Hematocrit (Bld) [Volume fraction] 27.9 % Low 37.7 - 49.0 % [facility] Hemoglobin (Bld) [Mass/Vol] 9.6 g/dL Low 13.5 - 17.5 gm/dL [facility] MCH (RBC) [Entitic mass] 30.9 pg Normal 27.0 - 34.0 pg [facility] MCHC (RBC) [Mass/Vol] 34.3 g/dL Normal 31.4 - 36.0 gm/dL [facility] MCV (RBC) [Entitic vol] 89.9 fL Normal 80.0 - 100.0 fL [facility] Platelet mean volume (Bld) [Entitic vol] 6.1 fL Low 6.4 - 10.8 fL [facility] Platelets (Bld) [#/Vol] 291.0 E9/L Normal 150. 0 - 500.0 E9/L [facility] RBC (Bld) [#/Vol] 3.1 E12/L Low 4.3 - 5.9 E12/L [facility] WBC corrected for nucl RBC Auto (Bld) [#/Vol] 9.6 E9/L Normal 4.0 - 11.0 E9/L [facility] [place] [facility] Physician Orderon 11-06-2023 Physician Order [id number]#1.00TI FF Normal [facility] eGFRon 11-06-2023 eGFR 31 mL/min/1.73 m2 Low >=59 [facility] Comment on above: Order Comment: Order added by Discern Expert. Performed By: #### 2 544151, 6638115, 92011247, 5344933 ####[facility] [address] [place] [address] ONC - Otheron 10-31-2023 ONC - Other [id number]#1.00TIF F [facility] Insurance Correspondenceon 1 12-26-2022 Insurance Correspondence [id number]#1.00TIF F [facility] Physician Orderon 10-25-2023 Physician Order [id number]#1.00TIF F [facility] Insurance Correspondenceon 1 12-24-2022 Insurance Correspondence [id number]#1.00TIF F [facility] Insurance Correspondence Off iceon 10-23-2023 Insurance Correspondence Office [id number]#1.00TIFF [facility] Inpatient Clinical Summaryon 10-17-[address] [facility] Inpatient Patient Summaryon 10-17-2023 Inpatient Patient Summary Normal [facility] C Blood Charcoalon 3 Blood Culture Charcoal Normal [facility] Comment on above: Performed By: #### 1 [id number] ####[facility] [address] [place] [address] Blood Culture Charcoal Normal [facility] Comment on above: Performed By: #### 1 5156314 ####[facility] [address] [place] [address] Outside Labson 10-16-2023 Outside Labs [id number]#1.00TI FF Normal [facility] Oncology Progress Noteon Oncology Progress Note Normal [facility] Comment on above: Result Comment: dupl icate Oncology Progress Note Normal [facility] Physician Orderon 10-14-2023 Physician Order [id number]#1.00TI FF Normal [facility] C Blood Charcoalon 3 Blood Culture Charcoal Normal [facility] Comment on above: Performed By: #### 1 2493064 ####[facility] [address] [place] [address] Auto Diffon 10-11-2023 Basophils/100 WBC (Bld) 0.3 % Normal 0.0-2.0 [facility] Comment on above: Order Comment: Order Added by Discern Expert. Performed By: #### 1 8826506, 4175105, 7412536, 7592583 ####[address] [place] [address] Basophils/Leukocytes Auto (Bld) [Pure # fraction] 0.0 E9/L Normal 0.0-0.2 [facility] Comment on above: Order Comment: Order Added by Discern Expert. Performed By: #### 1 1729090, 0761172, 0921807, 2609060 ####[address] [address] Eosinophils/100 WBC (Bld) 4.8 % Normal 0.0-8.0 [facility] Comment on above: Order Comment: Order Added by Discern Expert. Performed By: #### 1 6255554, 9251421, 6401075, 5052488 ####[address] [address] Eosinophils/Leukocytes Auto (Bld) [Pure # fraction] 0.5 E9/L Normal 0.0-0.5 [facility] Comment on above: Order Comment: Order Added by Discern Expert. Performed By: #### 1 5184876, 3179919, 6972501, 4465715 ####[address] [address] Lymphocytes/100 WBC (Bld) 22.9 % Normal 14.0-50.0 [facility] Comment on above: Order Comment: Order Added by Discern Expert. Performed By: #### 1 3522642, 4970245, 6946186, 4370466 ####[address] [place] [address] Lymphocytes/Leukocytes Auto (Bld) [Pure # fraction] 2.3 E9/L Normal 1.0-4.0 [facility] Comment on above: Order Comment: Order Added by Discern Expert. Performed By: #### 1 8336241, 5107297, 4436120, 2675031 ####[facility] [address] [place] [address] Monocytes/100 WBC (Bld) 11.1 % Normal 4.0-14.0 [facility] Comment on above: Order Comment: Order Added by Discern Expert. Performed By: #### 1 8966647, 7674176, 0715648, 2277468 ####[facility] [address] [place] [address] Monocytes/Leukocytes Auto (Bld) [Pure # fraction] 1.1 E9/L High 0.2-1.0 [facility] Comment on above: Order Comment: Order Added by Jimenez Expert. Performed By: #### 1 1104104, 6397146, 8267560, 8531871 ####[address] [place] [address] Neutrophils/100 WBC (Bld) 60.9 % Normal 36.0-75.0 [facility] Comment on above: Order Comment: Order Added by Jimenez Expert. Performed By: #### 1 3498712, 9640023, 9484228, 7846101 ####[facility] [address] [place] [address] Neutrophils/Leukocytes Auto (Bld) [Pure # fraction] 6.1 E9/L Normal 2.0-7.5 [facility] Comment on above: Order Comment: Order Added by Discern Expert. Performed By: #### 1 8096451, 1398233, 5011427, 2784043 ####[facility] [address] [place] [address] BMPon 10-11-2023 Anion gap [Moles/Vol] 9 mmol/L Normal 6-16 [facility] Comment on above: Performed By: #### 1 3355521, 1622505, 5001725, 5777626 ####[facility] [address] [place] [address] Calcium [Mass/Vol] 8.2 mg/dL Low 8.9-11.1 [facility] Comment on above: Performed By: #### 1 8634893, 6937592, 1666080, 4313907 ####[facility] [address] [place] [address] Chloride [Moles/Vol] 108 mmol/L Normal 101-111 [facility] Comment on above: Performed By: #### 1 7476473, 7078534, 4681394, 2156484 ####[facility] [address] [place] [address] CO2 [Moles/Vol] 24 mmol/L Normal 21-31 [facility] Comment on above: Performed By: #### 1 6940129, 9792117, 0922301, 1860849 ####[facility] [address] [place] [address] Creatinine [Mass/Vol] 2.0 mg/dL High 0.5-1.3 [facility] Comment on above: Performed By: #### 1 1762894, 1745332, 9052904, 5004679 ####[facility] [address] [place] [address] Glucose [Mass/Vol] 171 mg/dL Normal 55-199 [facility] Comment on above: Result Comment: If t his glucose result represents a fasting glucose, interpretation should refer to the following reference range: 55-99 mg/dL Performed By: #### 1 7770261, 8625625, 8138004, 3379552 ####[facility] [address] [place] [address] Potassium [Moles/Vol] 4.4 mmol/L Normal 3.5-5.3 [facility] Comment on above: Performed By: #### 1 7902065, 8674935, 0972234, 9271324 ####[facility] [address] [place] [address] Sodium [Moles/Vol] 137 mmol/L Normal 135-145 [facility] Comment on above: Performed By: #### 1 7824588, 7100821, 4822808, 0199865 ####[facility] [address] [place] [address] Urea nitrogen [Mass/Vol] 32 mg/dL High 5-21 [facility] Comment on above: Performed By: #### 1 4846745, 0732695, 0469581, 3337133 ####[facility] [address] [place] [address] Urea nitrogen/Creatinine [Mass ratio] 16 No Units Normal 10-20 [facility] Comment on above: Performed By: #### 1 3511900, 1709012, 2652286, 0563356 ####[facility] [address] [place] [address] CBC w/ Auto Diffon 3 Erythrocyte distribution width (RBC) [Ratio] 13.1 % Normal 10.9-14.2 [facility] Comment on above: Performed By: #### 1 6570907, 2101477, 6858189, 5439858 ####[facility] [address] [place] [address] Hematocrit (Bld) [Volume fraction] 24.7 % Low 37.7-49.0 [facility] Comment on above: Performed By: #### 1 6241690, 2987619, 5156615, 3564792 ####[facility] [address] [place] [address] Hemoglobin (Bld) [Mass/Vol] 8.8 g/dL Low 13.5-17.5 [facility] Comment on above: Performed By: #### 1 7037137, 5511101, 7190509, 5443600 ####[facility] [address] [place] [address] MCH (RBC) [Entitic mass] 32.0 pg Normal 27.0-34.0 [facility] Comment on above: Performed By: #### 1 2698066, 8118904, 7995821, 6186481 ####[facility] [address] [place] [address] MCHC (RBC) [Mass/Vol] 35.8 g/dL Normal 31.4-36.0 [facility] Comment on above: Performed By: #### 1 7546732, 9421343, 3541502, 2405032 ####[facility] [address] [place] [address] MCV (RBC) [Entitic vol] 89.3 fL Normal 80.0-100.0 F [facility] Comment on above: Performed By: #### 1 5416164, 4982309, 0394672, 6834003 ####[facility] [address] [place] [address] Platelet mean volume (Bld) [Entitic vol] 6.7 fL Normal 6.4-10.8 [facility] Comment on above: Performed By: #### 1 6474538, 6264555, 8557710, 5645954 ####[place] [address] Platelets (Bld) [#/Vol] 241.0 E9/L Normal 150.0-500.0 [facility] Comment on above: Performed By: #### 1 4297830, 6203885, 9723433, 3840046 ####[address] RBC (Bld) [#/Vol] 2.8 E12/L Low 4.3-5.9 [facility] Comment on above: Performed By: #### 1 3206470, 8697033, 7116845, 2207863 ####[facility] [address] [place] [address] WBC corrected for nucl RBC Auto (Bld) [#/Vol] 10.1 E9/L Normal 4.0-11.0 [facility] Comment on above: Performed By: #### 1 6472657, 5043323, 5439691, 3969069 ####[facility] [address] [place] [address] CHEMISTRYOrdered By: Lab ROP User on 10-11-2023 Glucose [Mass/Vol] 155 mg/dL High 55 - 99 mg/dL [facility] [place] POC Subsection Comment on above: Result Comment: Eleno king RN/ POC Username AVNI PITT Invalid Interpretation Code [facility] [place] POC Subsection Sodium [Moles/Vol] 079122150160 mmol/L Invalid Interpretation Code [facility] [place] POC Subsection Sodium [Moles/Vol] 167275276 mmol/L Invalid Interpretation Code [facility] [place] POC Subsection CHEMISTRYOrdered By: Sandie ceron on 10-11-2023 Anion gap [Moles/Vol] 9 mmol/L Normal 6 - 16 mEq/L [facility] Remisol Calcium [Mass/Vol] 8.2 mg/dL Low 8.9 - 11. 1 mg/dL [facility] [place] Remisol Chloride [Moles/Vol] 108 mmol/L Normal 101 - 1 11 mmol/L [facility] [place] Remisol CO2 [Moles/Vol] 24 mmol/L Normal 21 - 31 mmol/L [facility] [place] Remisol Creatinine [Mass/Vol] 2.0 mg/dL High 0.5 - 1.3 mg/dL [facility] [place] Remisol Glucose [Mass/Vol] 171 mg/dL Normal 55 - 199 mg/dL [facility] [place] Remisol Comment on above: Interpretive Data: I f this glucose result represents a fasting glucose, interpretation should refer to the following reference range: 55-99 mg/dL Potassium [Moles/Vol] 4.4 mmol/L Normal 3.5 - 5.3 mmol/L [facility] [place] Remisol Sodium [Moles/Vol] 137 mmol/L Normal 135 - 145 mmol/L [facility] [place] Remisol Urea nitrogen [Mass/Vol] 32 mg/dL High 5 - 21 mg/dL [facility] [place] Remisol Urea nitrogen/Creatinine [Mass ratio] 16 mg/mg Normal 10 - 20 [facility] [place] Remisol CHEMISTRYOrdered By: SYSTEM SYSTEM on 10-11-2023 GFR/1.73 sq M.predicted among non-blacks MDRD (S/P/Bld) [Vol rate/Area] 37 mL/min/1.73 m2 Low >=59mL/min/1 .73 m2 [facility] [place] Chem S Comment on above: Interpretive Data: C hronic kidney disease could be indicated at eGFR's of less than 60 mL/min/1.73m2. Kidney failure is indicated at less than 15 mL/min/1.73m2. Capillary Glucose POCon 12-0 Glucose [Mass/Vol] 155 mg/dL High 55-99 [facility] Comment on above: Result Comment: Eleno king RN/MD Performed By: #### 2 [id number] ####[facility] [address] [place] [address] Coding Queryon 10-11-2023 Coding Query Normal [facility] Discharge Instructionson Discharge Instructions [id number]#1.00TIF F Normal [facility] Discharge Note-Nursingon Discharge Note-Nursing Normal Fi [facility] HEMATOLOGYOrdered By: SYSTEM SYSTEM on 10-11-2023 Basophils/100 WBC (Bld) 0.3 % Normal 0.0 - 2.0 % [facility] Basophils/Leukocytes Auto (Bld) [Pure # fraction] 0.0 E9/L Normal 0.0 - 0.2 E9/L [facility] Eosinophils/100 WBC (Bld) 4.8 % Normal 0.0 - 8.0 % [facility] Eosinophils/Leukocytes Auto (Bld) [Pure # fraction] 0.5 E9/L Normal 0.0 - 0.5 E9/L [facility] Lymphocytes/100 WBC (Bld) 22.9 % Normal 14.0 - 50.0 % [facility] Lymphocytes/Leukocytes Auto (Bld) [Pure # fraction] 2.3 E9/L Normal 1.0 - 4.0 E9/L [facility] Monocytes/100 WBC (Bld) 11.1 % Normal 4.0 - 14.0 % [facility] Monocytes/Leukocytes Auto (Bld) [Pure # fraction] 1.1 E9/L High 0.2 - 1.0 E9/L [facility] Neutrophils/100 WBC (Bld) 60.9 % Normal 36.0 - 75.0 % [facility] Neutrophils/Leukocytes Auto (Bld) [Pure # fraction] 6.1 E9/L Normal 2.0 - 7.5 E9/L [facility] HEMATOLOGYOrdered By: Monet Cantu on 10-11-2023 Erythrocyte distribution width (RBC) [Ratio] 13.1 % Normal 10.9 - 14.2 % [facility] Hematocrit (Bld) [Volume fraction] 24.7 % Low 37.7 - 49.0 % [facility] Hemoglobin (Bld) [Mass/Vol] 8.8 g/dL Low 13.5 - 17.5 gm/dL [facility] MCH (RBC) [Entitic mass] 32.0 pg Normal 27.0 - 34.0 pg [facility] MCHC (RBC) [Mass/Vol] 35.8 g/dL Normal 31.4 - 36.0 gm/dL [facility] MCV (RBC) [Entitic vol] 89.3 fL Normal 80.0 - 100.0 fL [facility] Platelet mean volume (Bld) [Entitic vol] 6.7 fL Normal 6.4 - 10.8 fL [facility] Platelets (Bld) [#/Vol] 241.0 E9/L Normal 150. 0 - 500.0 E9/L [facility] RBC (Bld) [#/Vol] 2.8 E12/L Low 4.3 - 5.9 E12/L [facility] WBC corrected for nucl RBC Auto (Bld) [#/Vol] 10.1 E9/L Normal 4.0 - 11.0 E9/L [facility] Insurance Correspondenceon 1 12-12-2022 Insurance Correspondence [id number]#1.00TI FF [facility] Insurance Correspondence Off iceon 10-11-2023 Insurance Correspondence Office [id number]#1.00TIF F [facility] Interdisciplinary Note - Reza e Manageron 10-11-2023 Interdisciplinary Note - Parking Lot Manager [facility] Comment on above: Result Comment: Elec tronically Signed By: Pat Reich\.br\Date and Time Signed: 10/11/23 10:53 EST Interdisciplinary Note - Hilario singon 10-11-2023 Interdisciplinary Note - Nursing [facility] Medication Listson Medication Lists [id number]#1.00TIF F [facility] Medication Lists [id number]#1.00TIF F [facility] Monitor Recordon 10-11-2023 Monitor Record [id number]#1.00TI FF [facility] Monitor Record [id number]#1.00TI FF [facility] Monitor Record [id number]#1.00TI FF [facility] Prescriptions/Work Noteson 1 12-12-2022 Prescriptions/Work Notes [id number]#1.00TIF F [facility] Progress Note-Nurseon 2022 Progress Note-Nurse Normal [facility] Progress Note-Physicianon Progress Note-Physician Normal [facility] Comment on above: Result Comment: Elec tronically Signed By: Ayad DE LA CRUZ, Monet Kwon\.br\Date and Time Signed: 10/09/23 14:10 EST\.br\Electronically Co-Signed By: Ted Sepulveda MD\.br\Date and Time Co-Signed: 10/11/23 15:34 EST Transfer Documentson 023 Transfer Documents [id number]#1.00TIF F [facility] Transfer Documents [id number]#1.00TIF F [facility] Transfer Documents [id number]#1.00TIF F [facility] eGFRon 10-11-2023 GFR/1.73 sq M.predicted among non-blacks MDRD (S/P/Bld) [Vol rate/Area] 37 mL/min/1.73 m2 Low >=59 [facility] Comment on above: Order Comment: Order added by Discern Expert. 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 Kidney failure is indicated at less than 15 mL/min/1.73m2. Performed By: #### 1 9621919, 1145433, 8692737, 6546478 ####[facility] [address] [place] [address] BMPon 10-10-2023 Anion gap [Moles/Vol] 6 mmol/L Normal 6-16 [facility] Comment on above: Performed By: #### 2 664920, 50391250, 310566864 ####[facility] [address] [place] [address] Calcium [Mass/Vol] 8.4 mg/dL Low 8.9-11.1 [facility] Comment on above: Performed By: #### 2 737863, 11806543, 719782739 ####[facility] [address] [place] [address] Chloride [Moles/Vol] 112 mmol/L High 101-111 [facility] Comment on above: Performed By: #### 2 574425, 12177966, 434110011 ####[facility] [address] [place] [address] CO2 [Moles/Vol] 24 mmol/L Normal 21-31 [facility] Comment on above: Performed By: #### 2 856096, 52839747, 171824069 ####[facility] [address] [place] [address] Creatinine [Mass/Vol] 2.1 mg/dL High 0.5-1.3 [facility] Comment on above: Performed By: #### 2 470776, 77678799, 800894765 ####[facility] [address] [place] [address] Glucose [Mass/Vol] 168 mg/dL Normal 55-199 [facility] Comment on above: Result Comment: If t his glucose result represents a fasting glucose, interpretation should refer to the following reference range: 55-99 mg/dL Performed By: #### 2 610681, 12026324, 206293213 ####[facility] [address] [place] [address] Potassium [Moles/Vol] 4.0 mmol/L Normal 3.5-5.3 [facility] Comment on above: Performed By: #### 2 321026, 14444587, 597847820 ####[facility] [address] [place] [address] Sodium [Moles/Vol] 138 mmol/L Normal 135-145 [facility] Comment on above: Performed By: #### 2 625935, 59505592, 975072873 ####[facility] [address] [place] [address] Urea nitrogen [Mass/Vol] 32 mg/dL High 5-21 [facility] Comment on above: Performed By: #### 2 290391, 29386876, 333460925 ####[facility] [address] [place] [address] Urea nitrogen/Creatinine [Mass ratio] 15 No Units Normal 10-20 [facility] Comment on above: Performed By: #### 2 094650, 55412033, 251855301 ####[facility] [address] [place] [address] CHEMISTRYOrdered By: Lab ROP User on 10-10-2023 Glucose [Mass/Vol] 177 mg/dL High 55 - 99 mg/dL [facility] POC Subsection POC Username JOSELYN ASHTON Invalid Interpretation Code [facility] [place] POC Subsection Sodium [Moles/Vol] 681174544360 mmol/L Invalid Interpretation Code [facility] [place] POC Subsection Sodium [Moles/Vol] 328259708 mmol/L Invalid Interpretation Code [facility] [facility] POC Subsection Glucose [Mass/Vol] 201 mg/dL High 55 - 99 mg/dL [facility] [place] POC Subsection Comment on above: Result Comment: Eleno king RN/ POC Username PUJA ARREOLA Invalid Interpretation Code [facility] [place] POC Subsection Sodium [Moles/Vol] 680515181372 mmol/L Invalid Interpretation Code [facility] [place] POC Subsection Sodium [Moles/Vol] 001948700 mmol/L Invalid Interpretation Code [facility] [place] POC Subsection CHEMISTRYOrdered By: SYSTEM SYSTEM on 10-10-2023 Cobalamin (Vitamin B12) [Mass/Vol] 466 pg/mL Normal 50 - 1500 pg/mL [facility] Remisol Ferritin [Mass/Vol] 451 ng/mL High 24 - 336 ng/mL [facility] Remisol Comment on above: Interpretive Data: N ORMALS MEN <30 YRS 16-132 ng/mL MEN >30 YRS 8-338 ng/mL WOMEN (PREMEN) 6-104 ng/mL WOMEN (POSTMEN) 12-210 ng/mL Folate [Mass/Vol] 11.6 ng/mL Normal >=6.7ng/mL [facility] Remisol Iron [Mass/Vol] 52 ug/dL Normal 35 - 153 mcg/dL [facility] Remisol Iron binding capacity [Mass/Vol] 213 ug/dL Low 250 - 400 mcg/dL [facility] LDH [Catalytic activity/Vol] 128 [iU]/d Normal 93 - 218 Int._Unit/L [facility]isol Transferrin [Mass/Vol] 152 mg/dL Low 200 - 370 mg/dL [facility] Anion gap [Moles/Vol] 6 mmol/L Normal 6 - 16 mEq/L [facility] Calcium [Mass/Vol] 8.4 mg/dL Low 8.9 - 11. 1 mg/dL [facility] Chloride [Moles/Vol] 112 mmol/L High 101 - 1 11 mmol/L [facility] CO2 [Moles/Vol] 24 mmol/L Normal 21 - 31 mmol/L [facility] Creatinine [Mass/Vol] 2.1 mg/dL High 0.5 - 1.3 mg/dL [facility] Remisol GFR/1.73 sq M.predicted among non-blacks MDRD (S/P/Bld) [Vol rate/Area] 35 mL/min/1.73 m2 Low >=59mL/min/1 .73 m2 [facility] Comment on above: Interpretive Data: C hronic kidney disease could be indicated at eGFR's of less than 60 mL/min/1.73m2. Kidney failure is indicated at less than 15 mL/min/1.73m2. Glucose [Mass/Vol] 168 mg/dL Normal 55 - 199 mg/dL [facility] [facility] [place] Comment on above: Interpretive Data: I f this glucose result represents a fasting glucose, interpretation should refer to the following reference range: 55-99 mg/dL Potassium [Moles/Vol] 4.0 mmol/L Normal 3.5 - 5.3 mmol/L [facility] [place] Remisol Sodium [Moles/Vol] 138 mmol/L Normal 135 - 145 mmol/L [facility] [place] [facility] Urea nitrogen [Mass/Vol] 32 mg/dL High 5 - 21 mg/dL [facility] [place] [facility] Urea nitrogen/Creatinine [Mass ratio] 15 mg/mg Normal 10 - 20 [facility] [place] [facility] CHEMISTRYOrdered By: Bonny Nails se on 10-10-2023 HbA1c (Bld) [Mass fraction] 8.4 % High <=5.9% [facility] [place] ChemAutoSS Capillary Glucose POCon 12-0 Glucose [Mass/Vol] 177 mg/dL High 55-99 [facility] Comment on above: Performed By: #### 2 [id number] ####[facility] [address] [place] [address] Glucose [Mass/Vol] 201 mg/dL High 55-99 [facility] Comment on above: Result Comment: Eleno ALEXIS Performed By: #### 2 [id number] ####[facility] [address] [place] [address] Glucose [Mass/Vol] 136 mg/dL High 55-99 [facility] Comment on above: Result Comment: Eleno ALEXIS Performed By: #### 2 [id number] ####[facility] [address] [place] [address] Glucose [Mass/Vol] 155 mg/dL High 55-99 [facility] Comment on above: Result Comment: Eleno ALEXIS Performed By: #### 2 [id number] ####[facility] [address] [place] [address] Ferritinon 10-10-2023 Ferritin [Mass/Vol] 451 ng/mL High 24-336 [facility] Comment on above: Result Comment: NORM ALS MEN <30 YRS 16-132 ng/mL MEN >30 YRS 8-338 ng/mL WOMEN (PREMEN) 6-104 ng/mL WOMEN (POSTMEN) 12-210 ng/mL Performed By: #### 2 960567, 8519893, 48396850, 1951926, 2797296, 3835302, 7923625 ####[facility] [address] [place] [address] Folateon 10-10-2023 Folate [Mass/Vol] 11.6 ng/mL Normal >=6.7 [facility] Comment on above: Performed By: #### 2 898850, 2497608, 75476391, 0707604, 4446332, 7014188, 0909688 ####[facility] [address] [place] [address] HEMATOLOGYOrdered By: Louis Trevizo on 10-10-2023 Reticulocytes/100 RBC (Bld) 1.3 % Normal 0.5 - 1.5 % [facility] [place] [facility] Comment on above: Result Comment: This Reticulocyte Count Has Been Corrected For Anemia Rc 10/10/2023 10:36:03 EST [id number] 10-10-2023 HbA1c (Bld) [Mass fraction] 8.4 % High <=5.9 [facility] Comment on above: Performed By: #### 2 773587, 23731435, [id number] ####[facility] [address] [place] [address] Interdisciplinary Note - Reza e Manageron 10-10-2023 Interdisciplinary Note - Parking Lot Manager Normal [facility] Comment on above: Result Comment: Elec tronically Signed By: Pat Reich\.br\Date and Time Signed: 10/10/23 13:58 EST Interdisciplinary Note - [place] n 10-10-2023 Interdisciplinary Note - OT Normal [facility] Interdisciplinary Note - PTo n 10-10-2023 Interdisciplinary Note - PT Normal [facility] Ironon 10-10-2023 Iron [Mass/Vol] 52 microgram/dL Normal 35-153 [facility] Comment on above: Performed By: #### 2 532856, 8522263, 07749542, 5622491, 9955184, 8617603, 3003225 ####[facility] [address] [place] [address] LDHon 10-10-2023 LDH [Catalytic activity/Vol] 128 Int._Unit/L Normal 93-218 [facility] Comment on above: Performed By: #### 2 950720, 4103265, 08519725, 3632664, 3751069, 8595711, 4753258 ####[facility] [address] [place] [address] Message from Medicareon 120 Message from Medicare [id number]#1.00T IFF Normal [facility] Monitor Recordon 10-10-2023 Monitor Record [id number] [id number]#1.00TI FF Normal [facility] Monitor Record [id number] [id number]#1.00TI FF Normal [facility] Monitor Record [id number] [id number]#1.00TI FF Normal [facility] Monitor Record [id number]#1.00TI FF Normal [facility] Progress Note-Physicianon Progress Note-Physician Normal [facility] Comment on above: Result Comment: Elec tronically Signed By: Rima MARIN\.br\Date and Time Signed: 10/10/23 12:57 EST\.br\Electronically Co-Signed By: Paul Yanes DO\.br\Date and Time Co-Signed: 10/10/23 14:25 EST Progress Note-Physician Normal [facility] Comment on above: Result Comment: Elec tronically Signed By: Ted Sepulveda MD\.br\Date and Time Signed: 10/10/23 11:39 EST Retic Counton 10-10-2023 Reticulocytes/100 RBC (Bld) 1.3 % Normal 0.5-1.5 [facility] Comment on above: Result Comment: This Reticulocyte Count Has Been Corrected For AnemiaRc 10/10/2023 10:36:03 EST Performed By: #### 2 645829, 9820547, 09212401, 7437226, 6653163, 6002723, 8495777 ####[facility] [address] [place] [address] TIBC Calculatedon 10-10-2023 Iron binding capacity [Mass/Vol] 213 microgram/dL Low 250-400 [facility] Comment on above: Performed By: #### 2 936522, 9734884, 81297336, 5376942, 8899229, 4960710, 1033418 ####[facility] [address] [place] [address] Transferrin [Mass/Vol] 152 mg/dL Low 200-370 [facility] Comment on above: Performed By: #### 2 533913, 1974996, 99193540, 0891696, 2011476, 9359658, 2248977 ####[facility] [address] [place] [address] Vit B12on 10-10-2023 Cobalamin (Vitamin B12) [Mass/Vol] 466 pg/mL Normal 50-1500 [facility] Comment on above: Performed By: #### 2 835797, 4321843, 00721176, 6655123, 4842462, 3567106, 5035462 ####[facility] [address] [place] [address] eGFRon 10-10-2023 GFR/1.73 sq M.predicted among non-blacks MDRD (S/P/Bld) [Vol rate/Area] 35 mL/min/1.73 m2 Low >=59 [facility] Comment on above: Order Comment: Order added by Discern Expert. 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 Kidney failure is indicated at less than 15 mL/min/1.73m2. Performed By: #### 2 748515, 31886395, 312873158 ####[address] [place] [address] Auto Diffon 10-09-2023 Basophils/100 WBC (Bld) 0.3 % Normal 0.0-2.0 [facility] Comment on above: Order Comment: Order Added by Discern Expert. Performed By: #### 2 258967, 0583944, 1165914, 67996698 ####[address] [address] Basophils/Leukocytes Auto (Bld) [Pure # fraction] 0.0 E9/L Normal 0.0-0.2 [facility] Comment on above: Order Comment: Order Added by Discern Expert. Performed By: #### 2 219914, 5226560, 9508551, 45823415 ####[address] [address] Eosinophils/100 WBC (Bld) 3.3 % Normal 0.0-8.0 [facility] Comment on above: Order Comment: Order Added by Discern Expert. Performed By: #### 2 207105, 3480910, 2245772, 73117440 ####[address] [address] Eosinophils/Leukocytes Auto (Bld) [Pure # fraction] 0.3 E9/L Normal 0.0-0.5 [facility] Comment on above: Order Comment: Order Added by Discern Expert. Performed By: #### 2 452498, 6411839, 8471246, 72431989 ####[address] [address] Lymphocytes/100 WBC (Bld) 14.6 % Normal 14.0-50.0 [facility] Comment on above: Order Comment: Order Added by Discern Expert. Performed By: #### 2 291910, 9114191, 7676194, 30599608 ####[address] [address] Lymphocytes/Leukocytes Auto (Bld) [Pure # fraction] 1.3 E9/L Normal 1.0-4.0 [facility] Comment on above: Order Comment: Order Added by Discern Expert. Performed By: #### 2 886129, 4496030, 9136463, 78229797 ####[facility] [address] [place] [address] Monocytes/100 WBC (Bld) 10.8 % Normal 4.0-14.0 [facility] Comment on above: Order Comment: Order Added by Discern Expert. Performed By: #### 2 931657, 3642016, 9033547, 98197915 ####[facility] [address] [place] [address] Monocytes/Leukocytes Auto (Bld) [Pure # fraction] 1.0 E9/L Normal 0.2-1.0 [facility] Comment on above: Order Comment: Order Added by Jimenez Expert. Performed By: #### 2 293427, 9795198, 0257770, 84513092 ####[address] [place] [address] Neutrophils/100 WBC (Bld) 71.0 % Normal 36.0-75.0 [facility] Comment on above: Order Comment: Order Added by Jimenez Expert. Performed By: #### 2 463964, 5186638, 6998613, 84195186 ####[facility] [address] [place] [address] Neutrophils/Leukocytes Auto (Bld) [Pure # fraction] 6.5 E9/L Normal 2.0-7.5 [facility] Comment on above: Order Comment: Order Added by Discern Expert. Performed By: #### 2 910703, 1026310, 8265954, 32519297 ####[facility] [address] [place] [address] BMPon 10-09-2023 Anion gap [Moles/Vol] 5 mmol/L Low 6-16 [facility] Comment on above: Performed By: #### 2 973260, 0997518, 2581966, 57306184 ####[facility] [address] [place] [address] Calcium [Mass/Vol] 8.4 mg/dL Low 8.9-11.1 [facility] Comment on above: Performed By: #### 2 661552, 9330858, 2346992, 56954688 ####[facility] [address] [place] [address] Chloride [Moles/Vol] 110 mmol/L Normal 101-111 [facility] Comment on above: Performed By: #### 2 523508, 5447193, 3998694, 24424875 ####[facility] [address] [facility] [place] [address] CO2 [Moles/Vol] 26 mmol/L Normal 21-31 [facility] Comment on above: Performed By: #### 2 174978, 5034210, 3526418, 48144256 ####[facility] [address] [place] [address] Creatinine [Mass/Vol] 1.8 mg/dL High 0.5-1.3 [facility] Comment on above: Performed By: #### 2 196596, 9467666, 0842075, 55422998 ####[facility] [address] [facility] [place] [address] Glucose [Mass/Vol] 162 mg/dL Normal 55-199 [facility] Comment on above: Result Comment: If t his glucose result represents a fasting glucose, interpretation should refer to the following reference range: 55-99 mg/dL Performed By: #### 2 703984, 0173003, 0612952, 77269449 ####[facility] [address] [place] [address] Potassium [Moles/Vol] 4.2 mmol/L Normal 3.5-5.3 [facility] Comment on above: Performed By: #### 2 137787, 7418339, 7106170, 73238288 ####[facility] [address] [place] [address] Sodium [Moles/Vol] 137 mmol/L Normal 135-145 [facility] Comment on above: Performed By: #### 2 419245, 2853861, 8239414, 15993082 ####[facility] [address] [place] [address] Urea nitrogen [Mass/Vol] 29 mg/dL High 5-21 [facility] Comment on above: Performed By: #### 2 866999, 4123354, 8514483, 76080755 ####[facility] [address] [place] [address] Urea nitrogen/Creatinine [Mass ratio] 16 No Units Normal 10-20 [facility] Comment on above: Performed By: #### 2 072119, 7444523, 3168006, 10701451 ####[facility] [address] [place] [address] C Blood Charcoalon 3 Blood Culture Charcoal Normal [facility] Comment on above: Performed By: #### 1 2810698 ####[facility] [address] [place] [address] C Woundon 3 Wound Culture Normal [facility] Comment on above: Performed By: #### 2 674166 ####[facility] [address] [place] [address] CBC w/ Auto Diffon 3 Erythrocyte distribution width (RBC) [Ratio] 12.9 % Normal 10.9-14.2 [facility] Comment on above: Performed By: #### 2 731087, 0279869, 8477435, 95289262 ####[facility] [address] [place] [address] Hematocrit (Bld) [Volume fraction] 24.1 % Low 37.7-49.0 [facility] Comment on above: Performed By: #### 2 036550, 7274867, 0710196, 24243274 ####[facility] [address] [place] [address] Hemoglobin (Bld) [Mass/Vol] 8.4 g/dL Low 13.5-17.5 [facility] Comment on above: Performed By: #### 2 625342, 3089011, 1448464, 14554682 ####[address] [place] [address] MCH (RBC) [Entitic mass] 31.0 pg Normal 27.0-34.0 [facility] Comment on above: Performed By: #### 2 566914, 8497248, 3434526, 36929597 ####[address] MCHC (RBC) [Mass/Vol] 34.9 g/dL Normal 31.4-36.0 [facility] Comment on above: Performed By: #### 2 401629, 9571874, 7897272, 64112770 ####[address] [address] MCV (RBC) [Entitic vol] 88.8 fL Normal 80.0-100.0 F [facility] Comment on above: Performed By: #### 2 031215, 7793530, 4036396, 16811692 ####[address] [address] Platelet mean volume (Bld) [Entitic vol] 7.4 fL Normal 6.4-10.8 [facility] Comment on above: Performed By: #### 2 563141, 0126133, 1197371, 86213421 ####[address] [address] Platelets (Bld) [#/Vol] 219.0 E9/L Normal 150.0-500.0 [facility] Comment on above: Performed By: #### 2 537469, 1972443, 8915700, 82563708 ####[address] [address] RBC (Bld) [#/Vol] 2.7 E12/L Low 4.3-5.9 [facility] Comment on above: Performed By: #### 2 475795, 2019063, 4329765, 82079618 ####[facility] [address] [place] [address] WBC corrected for nucl RBC Auto (Bld) [#/Vol] 9.1 E9/L Normal 4.0-11.0 [facility] Comment on above: Performed By: #### 2 136672, 7008737, 6680042, 19698566 ####[facility] [address] [place] [address] CHEMISTRYOrdered By: SYSTEM SYSTEM on 10-09-2023 Anion gap [Moles/Vol] 5 mmol/L Low 6 - 16 mEq/L [facility] Calcium [Mass/Vol] 8.4 mg/dL Low 8.9 - 11. 1 mg/dL [facility] Chloride [Moles/Vol] 110 mmol/L Normal 101 - 1 11 mmol/L [facility] CO2 [Moles/Vol] 26 mmol/L Normal 21 - 31 mmol/L [facility] Creatinine [Mass/Vol] 1.8 mg/dL High 0.5 - 1.3 mg/dL [facility] GFR/1.73 sq M.predicted among non-blacks MDRD (S/P/Bld) [Vol rate/Area] 42 mL/min/1.73 m2 Low >=59mL/min/1 .73 m2 [facility] [place] [facility] Comment on above: Interpretive Data: C hronic kidney disease could be indicated at eGFR's of less than 60 mL/min/1.73m2. Kidney failure is indicated at less than 15 mL/min/1.73m2. Glucose [Mass/Vol] 162 mg/dL Normal 55 - 199 mg/dL [facility] [place] [facility] Comment on above: Interpretive Data: I f this glucose result represents a fasting glucose, interpretation should refer to the following reference range: 55-99 mg/dL Potassium [Moles/Vol] 4.2 mmol/L Normal 3.5 - 5.3 mmol/L [facility] Sodium [Moles/Vol] 137 mmol/L Normal 135 - 145 mmol/L [facility] Urea nitrogen [Mass/Vol] 29 mg/dL High 5 - 21 mg/dL [facility] Urea nitrogen/Creatinine [Mass ratio] 16 mg/mg Normal 10 - 20 [facility] Capillary Glucose POCon 12-0 Glucose [Mass/Vol] 212 mg/dL High 55-99 [facility] Comment on above: Result Comment: Eleno ALEXIS Performed By: #### 2 [id number] ####[facility] [address] [place] [address] Glucose [Mass/Vol] 200 mg/dL High 55-99 [facility] Comment on above: Result Comment: Eleno ALEXIS Performed By: #### 2 74714360 ####[address] [place] [address] Glucose [Mass/Vol] 152 mg/dL High 55-99 [facility] Comment on above: Result Comment: Eleno ALEXIS Performed By: #### 2 78394587 ####[address] [address] Glucose [Mass/Vol] 152 mg/dL High 55-99 [facility] Comment on above: Result Comment: Eleno ALEXIS Performed By: #### 2 89065089 ####[address] [address] Copper Lvlon 10-09-2023 Copper [Mass/Vol] 109 microgram/dL Invalid Interpretation Code 69-132 [facility] Comment on above: Result Comment: This test was developed and its performance characteristicsdetermined by [employer] It has not been cleared or approvedby the Food and Drug Administration.Detection Limit = 5Performed at: Lab[address] [id number] MD Guy Allen Performed By: #### 2 372729, 70567663, 0757940, 5373722, 1447267, 4008243, 56153736, 3095209, 5234650, 2259523, 5699613, 8815413, 9708204, 36559633, 15751376, 157050223, 82968326, 35760936 ####[facility] [address] [place] [address] HEMATOLOGYOrdered By: SYSTEM SYSTEM on 10-09-2023 Basophils/100 WBC (Bld) 0.3 % Normal 0.0 - 2.0 % [facility] Basophils/Leukocytes Auto (Bld) [Pure # fraction] 0.0 E9/L Normal 0.0 - 0.2 E9/L [facility] Eosinophils/100 WBC (Bld) 3.3 % Normal 0.0 - 8.0 % [facility]eAuto[facility] Eosinophils/Leukocytes Auto (Bld) [Pure # fraction] 0.3 E9/L Normal 0.0 - 0.5 E9/L [facility] Lymphocytes/100 WBC (Bld) 14.6 % Normal 14.0 - 50.0 % [facility]eAuto[facility] Lymphocytes/Leukocytes Auto (Bld) [Pure # fraction] 1.3 E9/L Normal 1.0 - 4.0 E9/L [facility]eAuto[facility] Monocytes/100 WBC (Bld) 10.8 % Normal 4.0 - 14.0 % [facility]eAuto[facility] Monocytes/Leukocytes Auto (Bld) [Pure # fraction] 1.0 E9/L Normal 0.2 - 1.0 E9/L [facility] Neutrophils/100 WBC (Bld) 71.0 % Normal 36.0 - 75.0 % [facility] Neutrophils/Leukocytes Auto (Bld) [Pure # fraction] 6.5 E9/L Normal 2.0 - 7.5 E9/L [facility] HEMATOLOGYOrdered By: Brandon Cyr on 10-09-2023 Erythrocyte distribution width (RBC) [Ratio] 12.9 % Normal 10.9 - 14.2 % [facility] Hematocrit (Bld) [Volume fraction] 24.1 % Low 37.7 - 49.0 % [facility] Hemoglobin (Bld) [Mass/Vol] 8.4 g/dL Low 13.5 - 17.5 gm/dL [facility] MCH (RBC) [Entitic mass] 31.0 pg Normal 27.0 - 34.0 pg [facility] MCHC (RBC) [Mass/Vol] 34.9 g/dL Normal 31.4 - 36.0 gm/dL [facility] MCV (RBC) [Entitic vol] 88.8 fL Normal 80.0 - 100.0 fL [facility]eAuto[facility] Platelet mean volume (Bld) [Entitic vol] 7.4 fL Normal 6.4 - 10.8 fL [facility] [place] [facility] Platelets (Bld) [#/Vol] 219.0 E9/L Normal 150. 0 - 500.0 E9/L [facility] [place] [facility] RBC (Bld) [#/Vol] 2.7 E12/L Low 4.3 - 5.9 E12/L [facility] [place] [facility] WBC corrected for nucl RBC Auto (Bld) [#/Vol] 9.1 E9/L Normal 4.0 - 11.0 E9/L [facility] [place] [facility] Interdisciplinary Note - Reza e Manageron 10-09-2023 Interdisciplinary Note - Parking Lot Manager Normal [facility] Comment on above: Result Comment: Elec tronically Signed By: Monet Vasques\.br\Date and Time Signed: 10/09/23 13:00 EST Monitor Recordon 10-09-2023 Monitor Record [id number]#1.00TI FF Normal [facility] Monitor Record [id number] [id number]#1.00TI FF Normal [facility] Monitor Record [id number] [id number]#1.00TI FF Normal [facility] Monitor Record [id number] [id number]#1.00TI FF Normal [facility] Progress Note-Physicianon Progress Note-Physician Normal [facility] Comment on above: Result Comment: Elec tronically Signed By: Mary Soria MD\.br\Date and Time Signed: 10/09/23 11:49 EST eGFRon 10-09-2023 GFR/1.73 sq M.predicted among non-blacks MDRD (S/P/Bld) [Vol rate/Area] 42 mL/min/1.73 m2 Low >=59 [facility] Comment on above: Order Comment: Order added by Discern Expert. 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 Kidney failure is indicated at less than 15 mL/min/1.73m2. Performed By: #### 2 889002, 6375137, 1697907, 99974629 ####[facility] [address] [place] [address] BMPon 10-08-2023 Creatinine [Mass/Vol] 2.1 mg/dL High 0.5-1.3 [facility] Comment on above: Performed By: #### 1 0798179, 1650311, 22630513 ####[facility] [address] [place] [address] Urea nitrogen [Mass/Vol] 33 mg/dL High 5-21 [facility] Comment on above: Performed By: #### 1 8672300, 4336705, 57043700 ####[facility] [address] [address] Urea nitrogen/Creatinine [Mass ratio] 16 No Units Normal 10-20 [facility] Comment on above: Performed By: #### 1 3354528, 2677181, 49058004 ####[facility] [address] [place] [address] Anion gap [Moles/Vol] 9 mmol/L Normal 6-16 [facility] Comment on above: Performed By: #### 1 4257398, 8402782, 57154550 ####[facility] [address] [place] [address] Calcium [Mass/Vol] 8.5 mg/dL Low 8.9-11.1 [facility] Comment on above: Performed By: #### 1 6135912, 1346230, 37479156 ####[facility] [address] [place] [address] Chloride [Moles/Vol] 109 mmol/L Normal 101-111 [facility] Comment on above: Performed By: #### 1 3530038, 8987562, 56162655 ####[facility] [address] [place] [address] CO2 [Moles/Vol] 23 mmol/L Normal 21-31 [facility] Comment on above: Performed By: #### 1 8082309, 9224263, 19641443 ####[facility] [address] [place] [address] Glucose [Mass/Vol] 171 mg/dL Normal 55-199 [facility] Comment on above: Result Comment: If t his glucose result represents a fasting glucose, interpretation should refer to the following reference range: 55-99 mg/dL Performed By: #### 1 1604524, 1711091, 02269044 ####[facility] [address] [facility] [place] [address] Potassium [Moles/Vol] 4.4 mmol/L Normal 3.5-5.3 [facility] Comment on above: Performed By: #### 1 3144288, 5258982, 70976069 ####[facility] [address] [place] [address] Sodium [Moles/Vol] 137 mmol/L Normal 135-145 [facility] Comment on above: Performed By: #### 1 9392040, 1864583, 83581182 ####[facility] [address] [facility] [place] [address] Capillary Glucose POCon 12-0 Glucose [Mass/Vol] 185 mg/dL High 55-99 [facility] Comment on above: Result Comment: Eleno ALEXIS Performed By: #### 2 24553324 ####[facility] [address] [facility] [place] [address] Glucose [Mass/Vol] 194 mg/dL High 55-99 [facility] Comment on above: Result Comment: Eleno ALEXIS Performed By: #### 2 64172413 ####[facility] [address] [facility] [place] [address] Glucose [Mass/Vol] 187 mg/dL High 55-99 [facility] Comment on above: Result Comment: Eleno ALEXIS Performed By: #### 2 06518341 ####[facility] [address] [place] [address] Glucose [Mass/Vol] 153 mg/dL High 55-99 [facility] Comment on above: Result Comment: Eleno king RN/ Performed By: #### 2 15615731 ####[facility] [address] [place] [address] Glucose [Mass/Vol] 155 mg/dL High 55-99 [facility] Comment on above: Result Comment: Eleno king RN/ Performed By: #### 2 88488059 ####[facility] [address] [place] [address] Coding Queryon 10-08-2023 Coding Query Normal [facility] Coding Query Normal [facility] Coding Query Normal [facility] Consultation Noteon 10-08-20 Consultation Note Normal [facility] Comment on above: Result Comment: Elec tronically Signed By: Rafi Castrejon M.D\.br\Date and Time Signed: 10/08/23 14:58 EST Consultation Note Normal [facility] Comment on above: Result Comment: Elec tronically Signed By: Derick GAMEZ, Ted\.br\Date and Time Signed: 10/08/23 11:51 EST HEMATOLOGYOrdered By: Sandie rosales on 10-08-2023 Hematocrit (Bld) [Volume fraction] 23.4 % Low 37.7 - 49.0 % [facility] [place] [facility] Hemoglobin (Bld) [Mass/Vol] 8.0 g/dL Low 13.5 - 17.5 gm/dL [facility] [place] [facility] Hct & Hgbon 10-08-2023 Hematocrit (Bld) [Volume fraction] 23.4 % Low 37.7-49.0 [facility] Comment on above: Performed By: #### 1 1645941, 7505873, 47767282 ####[facility] [address] [place] [address] Hemoglobin (Bld) [Mass/Vol] 8.0 g/dL Low 13.5-17.5 [facility] Comment on above: Performed By: #### 1 5205760, 4837492, 16388954 ####[facility] [address] [place] [address] Insurance Correspondence Off iceon 10-08-2023 Insurance Correspondence Office [id number]#1.00TI FF [facility] Interdisciplinary Note - Reza e Manageron 10-08-2023 Interdisciplinary Note - Parking Lot Manager P tis asleep in bed, previously rounded with Tamika CARRION . pt has positive blood cultures and ID to see today. PT is from [facility] and plan to return at [place], No family present. contact information provided and white board updated. [facility] Comment on above: Result Comment: Elec tronically Signed By: Christine Palm RN\.br\Date and Time Signed: 10/08/23 11:05 EST Monitor Recordon 10-08-2023 Monitor Record [id number] 2019 [id number]#1.00TI FF [facility] Monitor Record [id number] 2019 [id number]#1.00TI FF [facility] Monitor Record [id number] 2019 [id number]#1.00TI FF [facility] Monitor Record [id number] 2019 [id number]#1.00TI FF [facility] Progress Note-Physicianon Progress Note-Physician [facility] Comment on above: Result Comment: Elec tronically Signed By: Nany DELATORRE\.br\Date and Time Signed: 10/06/23 11:31 EST\.br\Electronically Co-Signed By: Nany DELATORRE\.br\Date and Time Co-Signed: 10/08/23 14:24 EST\.br\Electronically Co-Signed By: Paul Yanes DO\.br\Date and Time Co-Signed: 10/08/23 15:22 EST Result Comment: Elec tronically Signed By: Nany DELATORRE\.br\Date and Time Signed: 10/08/23 14:23 EST\.br\Electronically Co-Signed By: Nany DELATORRE\.br\Date and Time Co-Signed: 10/08/23 14:26 EST\.br\Electronically Co-Signed By: Nany DELATORRE\.br\Date and Time Co-Signed: 10/08/23 14:27 EST\.br\Electronically Co-Signed By: Paul Yanes DO\.br\Date and Time Co-Signed: 10/08/23 15:22 EST eGFRon 10-08-2023 GFR/1.73 sq M.predicted among non-blacks MDRD (S/P/Bld) [Vol rate/Area] 35 mL/min/1.73 m2 Low >=59 [facility] Comment on above: Order Comment: Order added by Discern Expert. 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 Kidney failure is indicated at less than 15 mL/min/1.73m2. Performed By: #### 1 2603242, 6572885, 08393116 ####[facility] [address] [place] [address] AMIKACIN:SUSC:PT:ISOLATE:ORD QN:MICOrdered By: Kristan Gudino on 10-07-2023 Amikacin STEPHIE [Susc] 1+ Pseudomonas aeruginosa 2+ Enterococcus faecalis Scant growth of Proteus mirabilis 1+ Gram Positive Rods resembling diphtheroids [facility] Amikacin STEPHIE [Susc]Ordered B y: Kristan Gudino on 10-07-2023 Enterococcus faecalis Enterococcus faecalis [facility] GS 1+ White Blood Cells Occasional Gram Negative Rods Occasional Gram Positive Cocci [facility] Proteus mirabilis Proteus mirabilis [facility] Pseudomonas aeruginosa Pseudomonas aeruginosa [facility] BMPon 10-07-2023 Creatinine [Mass/Vol] 2.5 mg/dL High 0.5-1.3 [facility] Comment on above: Performed By: #### 2 936882, 18026906, 6745699, 9089088, 7289415973, 53480097 ####[facility] [address] [place] [address] Anion gap [Moles/Vol] 8 mmol/L Normal 6-16 [facility] Comment on above: Performed By: #### 2 610671, 97898472, 7576328, 7291430, 0829037301, 12091624 ####[facility] [address] [place] [address] Calcium [Mass/Vol] 8.0 mg/dL Low 8.9-11.1 [facility] Comment on above: Performed By: #### 2 604252, 77494632, 1474247, 0469459, 5420904779, 31846056 ####[facility] [address] [place] [address] Chloride [Moles/Vol] 112 mmol/L High 101-111 [facility] Comment on above: Performed By: #### 2 606482, 74213017, 9020715, 0852740, 2066737845, 41218115 ####[facility] [address] [place] [address] CO2 [Moles/Vol] 21 mmol/L Normal 21-31 [facility] Comment on above: Performed By: #### 2 878961, 79282742, 9152155, 1361676, 0825216615, 29167395 ####[facility] [address] [place] [address] Glucose [Mass/Vol] 233 mg/dL High 55-199 [facility] Comment on above: Result Comment: If t his glucose result represents a fasting glucose, interpretation should refer to the following reference range: 55-99 mg/dL Performed By: #### 2 224366, 90446274, 3711279, 9686856, 6519314249, 50019930 ####[facility] [address] [place] [address] Potassium [Moles/Vol] 4.6 mmol/L Normal 3.5-5.3 [facility] Comment on above: Performed By: #### 2 870485, 21439849, 6222159, 7026776, 1538359063, 27489461 ####[facility] [address] [place] [address] Sodium [Moles/Vol] 136 mmol/L Normal 135-145 [facility] Comment on above: Performed By: #### 2 359447, 58317099, 7688194, 3436543, 2425960756, 89388522 ####[facility] [address] [place] [address] Urea nitrogen [Mass/Vol] 45 mg/dL High 5-21 [facility] Comment on above: Performed By: #### 2 963744, 25955942, 8385579, 7978803, 1887443401, 53947511 ####[facility] [address] [place] [address] Urea nitrogen/Creatinine [Mass ratio] 18 No Units Normal 10-20 [facility] Comment on above: Performed By: #### 2 725862, 26090934, 7218711, 0287077, 3754848028, 47508676 ####[facility] [address] [place] [address] C Urineon 10-07-2023 Bacteria identified Cx Nom (U) Normal [facility] Comment on above: Performed By: #### 1 9416133, 7032909 ####[facility] [address] [place] [address] CBC w/Indiceson 10-07-2023 Erythrocyte distribution width (RBC) [Ratio] 13.4 % Normal 10.9-14.2 [facility] Comment on above: Performed By: #### 2 301635, 31667555, 6993381, 2099737, 8838607779, 39211349 ####[facility] [address] [place] [address] Hematocrit (Bld) [Volume fraction] 22.4 % Low 37.7-49.0 [facility] Comment on above: Performed By: #### 2 757702, 69957249, 7215015, 3294227, 5601908635, 25819875 ####[facility] [address] [place] [address] Hemoglobin (Bld) [Mass/Vol] 7.7 g/dL Low 13.5-17.5 [facility] Comment on above: Performed By: #### 2 087302, 23753840, 9716364, 8500289, 4407603350, 44870617 ####[facility] [address] [place] [address] MCH (RBC) [Entitic mass] 31.3 pg Normal 27.0-34.0 [facility] Comment on above: Performed By: #### 2 436866, 91555776, 3128812, 5653223, 8893989177, 25548415 ####[address] [place] [address] MCHC (RBC) [Mass/Vol] 34.3 g/dL Normal 31.4-36.0 [facility] Comment on above: Performed By: #### 2 782080, 44032614, 5796419, 5309792, 8695164759, 08346382 ####[address] [address] MCV (RBC) [Entitic vol] 91.2 fL Normal 80.0-100.0 [facility] Comment on above: Performed By: #### 2 080295, 70381822, 4463288, 0858018, 4192445372, 00504655 ####[address] [address] Platelet mean volume (Bld) [Entitic vol] 6.9 fL Normal 6.4-10.8 [facility] Comment on above: Performed By: #### 2 405474, 60156245, 2386670, 4482725, 7284655559, 96363148 ####[address] [place] [address] Platelets (Bld) [#/Vol] 168.0 E9/L Normal 150.0-500.0 [facility] Comment on above: Performed By: #### 2 870012, 01571605, 6886844, 5195907, 8046703584, 13905024 ####[facility] [address] [place] [address] RBC (Bld) [#/Vol] 2.5 E12/L Low 4.3-5.9 [facility] Comment on above: Performed By: #### 2 245554, 47247624, 2299168, 8744541, 0263455126, 27694725 ####[facility] [address] [place] [address] WBC corrected for nucl RBC Auto (Bld) [#/Vol] 13.4 E9/L High 4.0-11.0 [facility] Comment on above: Performed By: #### 2 330862, 62249756, 1253761, 8981095, 9250117968, 53164443 ####[facility] [address] [address] CHEMISTRYOrdered By: SYSTEM SYSTEM on 10-07-2023 CRP [Mass/Vol] 14.7 mg/dL High <=1.9mg/dL [facility]isol Procalcitonin [Mass/Vol] 66.56 ng/mL High 0.00 - 0.50 ng/mL [facility] Comment on above: Interpretive Data: < 0.5 ng/mL Low risk of severe sepsis and/or shock >2.0 ng/mL High risk of severe sepsis and/or shock Concentrations under 0.5 ng/mL do not exclude local infections or systemic infections in their initial stages (e.g.. under six hours from onset of illness). PCT concentrations between 0.5 and 2.0 ng/mL should be interpreted with consideration of the patient's history. In this range, it is recommended to retest PCT within 6 to 24 hours. CRPon 10-07-2023 CRP [Mass/Vol] 14.7 mg/dL High <=1.9 [facility] Comment on above: Performed By: #### 2 738686, 26763104, 3625898, 1335681, 7978935827, 43577942 ####[facility] [address] [place] [address] Capillary Glucose POCon 12-0 Glucose [Mass/Vol] 201 mg/dL High 55-99 [facility] Comment on above: Result Comment: Eleno ALEXIS Performed By: #### 2 55196424 ####[facility] [address] [place] [address] Glucose [Mass/Vol] 160 mg/dL High 55-99 [facility] Comment on above: Result Comment: Eleno ALEXIS Performed By: #### 2 23522051 ####[facility] [address] [place] [address] Glucose [Mass/Vol] 153 mg/dL High 55-99 [facility] Comment on above: Result Comment: Eleno ALEXIS Performed By: #### 2 51524393 ####[facility] [address] [place] [address] Glucose [Mass/Vol] 207 mg/dL High 55-99 [facility] Comment on above: Result Comment: Eleno ALEXIS Performed By: #### 2 06015514 ####[facility] [address] [place] [address] HEMATOLOGYOrdered By: Brandon Dill on 10-07-2023 Erythrocyte distribution width (RBC) [Ratio] 13.4 % Normal 10.9 - 14.2 % [facility] HemeAutoSS ESR (Bld) [Velocity] 100 mm/h High 0 - 19 mm/hr [facility] HemeAutoSS MCH (RBC) [Entitic mass] 31.3 pg Normal 27.0 - 34.0 pg [facility] HemeAutoSS MCHC (RBC) [Mass/Vol] 34.3 g/dL Normal 31.4 - 36.0 gm/dL [facility] HemeAutoSS MCV (RBC) [Entitic vol] 91.2 fL Normal 80.0 - 100.0 fL [facility] HemeAutoSS Platelet mean volume (Bld) [Entitic vol] 6.9 fL Normal 6.4 - 10.8 fL [facility] HemeAutoSS Platelets (Bld) [#/Vol] 168.0 E9/L Normal 150. 0 - 500.0 E9/L [facility] HemeAutoSS RBC (Bld) [#/Vol] 2.5 E12/L Low 4.3 - 5.9 E12/L [facility] [place] HemeAutoSS WBC corrected for nucl RBC Auto (Bld) [#/Vol] 13.4 E9/L High 4.0 - 11.0 E9/L [facility] [place] HemeAutoSS Hct & Hgbon 10-07-2023 Hematocrit (Bld) [Volume fraction] 22.9 % Low 37.7-49.0 [facility] Comment on above: Performed By: #### 1 5990718 ####[address] [address] Hemoglobin (Bld) [Mass/Vol] 7.6 g/dL Low 13.5-17.5 [facility] Comment on above: Performed By: #### 1 8462993 ####[address] [address] Hematocrit (Bld) [Volume fraction] 22.2 % Low 37.7-49.0 [facility] Comment on above: Performed By: #### 1 2368513 ####[address] [address] Hemoglobin (Bld) [Mass/Vol] 7.6 g/dL Low 13.5-17.5 [facility] Comment on above: Performed By: #### 1 4164046 ####[address] [address] Immunoglobs. A/E/G/Mon 10-07 IgA Quant duplt test Invalid Interpretation Code [facility] Comment on above: Performed By: #### 2 120224, 38693122, 9297447, 5319701, 1547568, 6068611, 37612282, 5757086, 9986298, 4549669, 3443942, 3864959, 5818661, 53675798, 01501099, 650898446, 13700824, 56607462 ####[address] [address] IgG Quant duplt test Invalid Interpretation Code [facility] Comment on above: Performed By: #### 2 806883, 59959920, 8979573, 3499911, 2895280, 3788480, 02033915, 6818102, 9825820, 2654111, 3325126, 0060582, 9354165, 96439646, 90997218, 654388986, 09170464, 69608942 ####[facility] [address] [place] [address] IgM Quant duplt test Invalid Interpretation Code [facility] Comment on above: Performed By: #### 2 192868, 42561584, 7675120, 5867327, 7273804, 8221897, 59286055, 0054074, 7808460, 7964764, 9653408, 3818270, 3704852, 18469992, 15334792, 099240268, 03128823, 06894252 ####[facility] [address] [place] [address] Insurance Correspondence Off iceon 10-07-2023 Insurance Correspondence Office [id number]#1.00TI FF [facility] Interdisciplinary Note - Reza e Manageron 10-07-2023 Interdisciplinary Note - Parking Lot Manager [facility] Comment on above: Result Comment: Elec tronically Signed By: Arpita WALKER, Christine\.br\Date and Time Signed: 10/07/23 11:23 EST Interdisciplinary Note - Hilario singon 10-07-2023 Interdisciplinary Note - Nursing [facility] Interdisciplinary Note - Soc ial Workeron 10-07-2023 Interdisciplinary Note - Hosiery Repairer [facility] Message from Medicareon 0 Message from Medicare 170... [id number]#1.00TI FF Normal [facility] Message from Medicare [id number]#1.00TI FF [facility] Monitor Recordon 10-07-2023 Monitor Record [id number]#1.00TI FF Normal [facility] Monitor Record [id number] 2009 [id number]#1.00TI FF Normal [facility] Monitor Record [id number] 2009 [id number]#1.00TI FF Normal [facility] Monitor Record [id number] 2009 [id number]#1.00TI FF Normal [facility] No Panel InformationOrdered By: ANGPROCESSSERVER MICROBIOLOGY on 10-07-2023 Blood Culture Charcoal No growth at 3 da ys. Final to follow at [address] [facility] Procalcitoninon 10-07-2023 Procalcitonin [Mass/Vol] 66.56 ng/mL High .00-.50 [facility] Comment on above: Result Comment: <0.5 ng/mL Low risk of severe sepsis and/or shock>2.0 ng/mL High risk of severe sepsis and/or shockConcentrations under 0.5 ng/mL do not exclude local infections or systemic infections in their initial stages (e.g.. under six hours from onset of illness). PCT concentrations between 0.5 and 2.0 ng/mL should be interpreted with consideration of the patient's history. In this range, it is recommended to retest PCT within 6 to 24 hours. Performed By: #### 2 561512, 55240147, 6607878, 4680004, 0106059566, 55840235 ####[facility] [address] [place] [address] Progress Note-Physicianon Progress Note-Physician Normal [facility] Comment on above: Result Comment: Elec tronically Signed By: Nany DELATORRE\.br\Date and Time Signed: 10/07/23 17:21 EST\.br\Electronically Co-Signed By: Paul Yanes DO\.br\Date and Time Co-Signed: 10/07/23 19:21 EST Sed Rate Automatedon 023 ESR (Bld) [Velocity] 100 mm/h High 0-19 [facility] Comment on above: Performed By: #### 2 709901, 94312284, 8811521, 5523725, 8013712932, 04351480 ####[facility] [address] [place] [address] US Renalon 10-07-2023 US Renal Normal [facility] XR Foot 3+ Views Lefton 12-0 XR Foot 3+ Views Left Normal [facility] eGFRon 10-07-2023 GFR/1.73 sq M.predicted among non-blacks MDRD (S/P/Bld) [Vol rate/Area] 28 mL/min/1.73 m2 Low >=59 [facility] Comment on above: Order Comment: Order added by Discern Expert. 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 Kidney failure is indicated at less than 15 mL/min/1.73m2. Performed By: #### 2 841995, 26605256, 5250764, 5200163, 2485155840, 94756401 ####[facility] [address] [place] [address] BMPon 10-06-2023 Creatinine [Mass/Vol] 3.1 mg/dL High 0.5-1.3 [facility] Comment on above: Performed By: #### 2 177928, 11525890 ####[facility] [address] [place] [address] Urea nitrogen [Mass/Vol] 53 mg/dL High 5-21 [facility] Comment on above: Performed By: #### 2 146625, 51481366 ####[facility] [address] [place] [address] Urea nitrogen/Creatinine [Mass ratio] 17 No Units Normal 10-20 [facility] Comment on above: Performed By: #### 2 194799, 61551211 ####[facility] [address] [place] [address] Anion gap [Moles/Vol] 8 mmol/L Normal 6-16 [facility] Comment on above: Performed By: #### 2 186400, 75475510 ####[facility] [address] [address] Calcium [Mass/Vol] 8.1 mg/dL Low 8.9-11.1 [facility] Comment on above: Performed By: #### 2 580131, 11165708 ####[facility] [address] [place] [address] Chloride [Moles/Vol] 112 mmol/L High 101-111 [facility] Comment on above: Performed By: #### 2 264924, 52980065 ####[facility] [address] [place] [address] CO2 [Moles/Vol] 22 mmol/L Normal 21-31 [facility] Comment on above: Performed By: #### 2 749194, 46351408 ####[facility] [address] [place] [address] Glucose [Mass/Vol] 210 mg/dL High 55-199 [facility] Comment on above: Result Comment: If t his glucose result represents a fasting glucose, interpretation should refer to the following reference range: 55-99 mg/dL Performed By: #### 2 463799, 00780674 ####[facility] [address] [place] [address] Potassium [Moles/Vol] 5.4 mmol/L High 3.5-5.3 [facility] Comment on above: Performed By: #### 2 216911, 24880151 ####[facility] [address] [place] [address] Sodium [Moles/Vol] 137 mmol/L Normal 135-145 [facility] Comment on above: Performed By: #### 2 560516, 81078012 ####[facility] [address] [place] [address] Capillary Glucose POCon 12-0 3-202 Glucose [Mass/Vol] 316 mg/dL High 55-99 [facility] Comment on above: Result Comment: Eleno king RN/ Performed By: #### 2 44372367 ####[facility] [address] [place] [address] Glucose [Mass/Vol] 250 mg/dL High 55-99 [facility] Comment on above: Result Comment: Eleno king RN/ Performed By: #### 2 10864623 ####[facility] [address] [place] [address] Glucose [Mass/Vol] 208 mg/dL High 55-99 [facility] Comment on above: Result Comment: Eleno king RN/ Performed By: #### 2 43705712 ####[facility] [address] [place] [address] Glucose [Mass/Vol] 207 mg/dL High 55-99 [facility] Comment on above: Result Comment: Eleno king RN/ Performed By: #### 2 88262197 ####[facility] [address] [place] [address] Interdisciplinary Note - Reza e Manageron 10-06-2023 Interdisciplinary Note - Parking Lot Manager [facility] Comment on above: Result Comment: Elec tronically Signed By: Pat Reich\.br\Date and Time Signed: 10/06/23 13:12 EST Interdisciplinary Note - Hilario singon 10-06-2023 Interdisciplinary Note - Nursing This nurse was not able to complete the patient adult history assessment at time. The patient is too drowsy and unable to answer questions properly. This nurse will let the patient rest and continue to monitor. Normal [facility] Monitor Recordon 10-06-2023 Monitor Record [id number] 1999 [id number]#1.00TI FF Normal [facility] Monitor Record [id number] 1999 [id number]#1.00TI FF [facility] Progress Note-Nurseon 2022 Progress Note-Nurse [facility] eGFRon 10-06-2023 GFR/1.73 sq M.predicted among non-blacks MDRD (S/P/Bld) [Vol rate/Area] 22 mL/min/1.73 m2 Low >=59 [facility] Comment on above: Order Comment: Order added by Discern Expert. 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 Kidney failure is indicated at less than 15 mL/min/1.73m2. Performed By: #### 2 233795, 04189773 ####[facility] [address] [place] [address] Auto Diffon 10-05-2023 Basophils/100 WBC (Bld) 0.1 % Normal 0.0-2.0 [facility] Comment on above: Order Comment: Order Added by Discern Expert. Performed By: #### 2 901190, 7220992, 30909400, 6101742, 53954432, 1693225, 9388121, 5593264, 29215501, 9894280, 1959622, 7241620 ####[facility] [address] [place] [address] Basophils/Leukocytes Auto (Bld) [Pure # fraction] 0.0 E9/L Normal 0.0-0.2 [facility] Comment on above: Order Comment: Order Added by Discern Expert. Performed By: #### 2 051897, 9733109, 85201803, 5500934, 33789713, 1846472, 1800160, 2836509, 47232886, 0270284, 6562861, 3606346 ####[facility] [address] [place] [address] Eosinophils/100 WBC (Bld) 0.4 % Normal 0.0-8.0 [facility] Comment on above: Order Comment: Order Added by Discern Expert. Performed By: #### 2 813583, 4249630, 19938870, 0622517, 47040385, 5357601, 1742116, 6694409, 73601505, 5322494, 0561584, 4752511 ####[facility] [address] [place] [address] Eosinophils/Leukocytes Auto (Bld) [Pure # fraction] 0.0 E9/L Normal 0.0-0.5 [facility] Comment on above: Order Comment: Order Added by Discern Expert. Performed By: #### 2 436281, 8243564, 11494696, 2369824, 16121192, 4031363, 8975536, 8112407, 60909115, 0847561, 6976465, 8836276 ####[facility] [address] [place] [address] Lymphocytes/100 WBC (Bld) 3.5 % Low 14.0-50.0 [facility] Comment on above: Order Comment: Order Added by Discern Expert. Performed By: #### 2 000496, 6392483, 10204634, 0236017, 62149066, 2815227, 1706920, 9785342, 12327286, 5544779, 0867415, 3153281 ####[address] [address] Lymphocytes/Leukocytes Auto (Bld) [Pure # fraction] 0.2 E9/L Low 1.0-4.0 [facility] Comment on above: Order Comment: Order Added by Discern Expert. Performed By: #### 2 907657, 6589581, 88682108, 4774782, 53926065, 4860867, 0373600, 1365098, 64243831, 6140759, 7934918, 6679278 ####[address] [place] [address] Monocytes/100 WBC (Bld) 0.8 % Low 4.0-14.0 [facility] Comment on above: Order Comment: Order Added by Discern Expert. Performed By: #### 2 085067, 8479395, 10010855, 9099474, 29020872, 4573251, 4848163, 9271393, 67054433, 9350781, 8191569, 1064052 ####[facility] [address] [place] [address] Monocytes/Leukocytes Auto (Bld) [Pure # fraction] 0.0 E9/L Low 0.2-1.0 [facility] Comment on above: Order Comment: Order Added by Discern Expert. Performed By: #### 2 778357, 7841037, 60442134, 3478883, 90975211, 2855468, 1809008, 7371910, 76738521, 6162368, 2408092, 4778438 ####[facility] [address] [place] [address] Neutrophils/100 WBC (Bld) 95.2 % High 36.0-75.0 [facility] Comment on above: Order Comment: Order Added by Discern Expert. Performed By: #### 2 198979, 9192643, 13554232, 8820026, 27369220, 8974783, 3589056, 0952706, 12955237, 6783777, 8094603, 0399064 ####[facility] [address] [place] [address] Neutrophils/Leukocytes Auto (Bld) [Pure # fraction] 5.3 E9/L Normal 2.0-7.5 [facility] Comment on above: Order Comment: Order Added by Discern Expert. Performed By: #### 2 027518, 0337043, 32346833, 5013335, 33919597, 0122549, 5825268, 4998439, 47871466, 8888466, 0215693, 7617698 ####[facility] [address] [place] [address] CBC w/ Auto Diffon 3 Erythrocyte distribution width (RBC) [Ratio] 13.4 % Normal 10.9-14.2 [facility] Comment on above: Performed By: #### 2 972551, 5428393, 22975855, 4594905, 12200361, 1067652, 9194837, 6041577, 24270396, 0956543, 5994865, 9605985 ####[facility] [address] [place] [address] Hematocrit (Bld) [Volume fraction] 30.3 % Low 37.7-49.0 [facility] Comment on above: Performed By: #### 2 683838, 9224587, 44018899, 6333470, 97288367, 5536810, 7834880, 1288286, 49033223, 3396813, 5413392, 9439206 ####[facility] [address] [place] [address] Hemoglobin (Bld) [Mass/Vol] 10.1 g/dL Low 13.5-17.5 [facility] Comment on above: Performed By: #### 2 417527, 5891906, 65403390, 4212691, 42644714, 0721477, 5809203, 3376318, 00751162, 3422681, 9309826, 8981452 ####[address] [place] [address] MCH (RBC) [Entitic mass] 30.7 pg Normal 27.0-34.0 [facility] Comment on above: Performed By: #### 2 304055, 0627961, 40127845, 7561708, 86649597, 4966973, 5847320, 8122392, 51942635, 0911521, 4102168, 9582911 ####[facility] [address] [place] [address] MCHC (RBC) [Mass/Vol] 33.3 g/dL Normal 31.4-36.0 [facility] Comment on above: Performed By: #### 2 162857, 8353869, 12935730, 5978765, 35223260, 8115826, 6776879, 6509596, 22989150, 9652086, 7597362, 4070699 ####[facility] [address] [place] [address] MCV (RBC) [Entitic vol] 92.2 fL Normal 80.0-100.0 [facility] Comment on above: Performed By: #### 2 306301, 4964282, 62042954, 2431482, 27217322, 8020825, 6137785, 0596217, 88400398, 9576181, 6952029, 1312217 ####[facility] [address] [place] [address] Platelet mean volume (Bld) [Entitic vol] 6.7 fL Normal 6.4-10.8 [facility] Comment on above: Performed By: #### 2 [id number], [id number], [id number], 8588812, 51507453, 9161911, 0196659, 1957525, 99351644, 4638005, 3057310, 1802146 ####[facility] [id number] [place] [address] Platelets (Bld) [#/Vol] 259.0 E9/L Normal 150.0-500.0 [facility] Comment on above: Performed By: #### 2 645710, 5194699, 16643960, 0033532, 40369782, 1313685, 4277277, 3561789, [id number], 2208743, 3567833, 9438314 ####[address] [address] RBC (Bld) [#/Vol] 3.3 E12/L Low 4.3-5.9 [facility] Comment on above: Performed By: #### 2 312541, 2323035, 03226796, 9023736, 73648908, 9775976, 9624887, 3383872, 25490103, 0852633, 0411600, 9713371 ####[address] [place] [address] WBC corrected for nucl RBC Auto (Bld) [#/Vol] 5.6 E9/L Normal 4.0-11.0 [facility] Comment on above: Performed By: #### 2 509705, 3249434, 22434936, 6492211, 97407180, 7310567, 6371219, 3917247, 40616247, 8389052, 3232438, 3824971 ####[address] [address] CEFEPIME:SUSC:PT:ISOLATE:ORD QN:MICOrdered By: Kristan Gudino on 10-05-2023 Cefepime STEPHIE [Susc] Staphylococcus epidermidis and Providencia stuartii In 1 of 1 blood culture bottles drawn. Isolated from pediatric bottle Preliminary gram stain result of gram positive cocci in clusters Result called to Nany AZUL by RONNA and results read back for confirmation on 10/06/2023 12:22:24 Gram negative rods called to Tamika Azar 10/07/2023 10:18:[address] [facility] CEFEPIME:SUSC:PT:ISOLATE:ORD QN:MICOrdered By: Rashida Yao on 10-05-2023 Cefepime STEPHIE [Susc] >100,000 cfu/ml Providencia rettgeri [facility] CHEMISTRYOrdered By: SYSTEM SYSTEM on 10-05-2023 Lactate [Mass/Vol] 1.8 mmol/L Normal 0.5 - 2.2 mmol/L [facility] Remisol Albumin [Mass/Vol] 3.2 g/dL Low 3.3 - 5.0 gm/dL [facility] Albumin/Globulin [Mass ratio] 0.8 {ratio} Low 1.1 - 2.2 [facility] ALP [Catalytic activity/Vol] 117 [iU]/d High 21 - 98 Int._Unit/L [facility] ALT No additional P-5'-P [Catalytic activity/Vol] 15 [iU]/d Normal 6 - 46 Int._Unit/L [facility] AST [Catalytic activity/Vol] 24 [iU]/d Normal 5 - 43 Int._Unit/L [facility] Bilirubin [Mass/Vol] 0.8 mg/dL Normal 0.0 - 1 .1 mg/dL [facility] Cobalamin (Vitamin B12) [Mass/Vol] 455 pg/mL Normal 50 - 1500 pg/mL [facility] Ferritin [Mass/Vol] 516 ng/mL High 24 - 336 ng/mL [facility] Comment on above: Interpretive Data: N ORMALS MEN <30 YRS 16-132 ng/mL MEN >30 YRS 8-338 ng/mL WOMEN (PREMEN) 6-104 ng/mL WOMEN (POSTMEN) 12-210 ng/mL Folate [Mass/Vol] 11.6 ng/mL Normal >=6.7ng/mL [facility] Globulin (S) [Mass/Vol] 4.0 g/dL Normal 1.4 - 4.0 gm/dL [facility] Iron [Mass/Vol] 32 ug/dL Low 35 - 153 mcg/dL [facility] Iron binding capacity [Mass/Vol] 239 ug/dL Low 250 - 400 mcg/dL [facility] Lactate [Mass/Vol] 3.1 mmol/L High 0.5 - 2.2 mmol/L [facility] Protein [Mass/Vol] 7.2 g/dL Normal 6.0 - 7.8 gm/dL [facility] Transferrin [Mass/Vol] 171 mg/dL Low 200 - 370 mg/dL [facility] Troponin I.cardiac [Mass/Vol] 19.40 pg/mL Normal 15.90 - 38.40 pg/mL [facility] Comment on above: Interpretive Data: T he 95% CI (Confidence Interval) PPV (Positive Predictive Value) for myocardial infarction in females is 38 pg/mL, in males 51 pg/mL. The results should be used in conjunction with clinical conditions of myocardial infarction. (Access High Sensitivity Troponin I Instructions For Use, Cindi Salem, June 2018) CMPon 10-05-2023 Albumin [Mass/Vol] 3.2 g/dL Low 3.3-5.0 [facility] Comment on above: Performed By: #### 2 457698, 4691728, 72578670, 8897674, 87526883, 3513444, 3812893, 0043163, 53161689, 9469629, 4846620, 1226496 ####[facility] [address] [place] [address] Albumin/Globulin (S) [Mass conc ratio] 0.8 Low 1.1-2.2 [facility] Comment on above: Performed By: #### 2 632232, 0774134, 77679555, 5767762, 88898775, 7629072, 3848021, 9985685, 08752815, 2600385, 0919324, 9341978 ####[facility] [address] [place] [address] ALP [Catalytic activity/Vol] 117 Int._Unit/L High 21-98 [facility] Comment on above: Performed By: #### 2 693921, 4994981, 25660066, 3033086, 30361732, 6592337, 1431094, 3067922, 25224661, 8665068, 1531398, 9195213 ####[facility] [address] [place] [address] ALT No additional P-5'-P [Catalytic activity/Vol] 15 Int._Unit/L Normal 6-46 [facility] Comment on above: Performed By: #### 2 607472, 0898280, 63939348, 3947591, 02111051, 0542998, 6727951, 5789081, 00035834, 1014219, 1149218, 5045694 ####[address] [address] AST [Catalytic activity/Vol] 24 Int._Unit/L Normal 5-43 [facility] Comment on above: Performed By: #### 2 632390, 1929933, 65913800, 5058090, 99075484, 8583390, 7593489, 5971626, 73758685, 0922415, 4051926, 3055014 ####[facility] [address] [place] [address] Bilirubin [Mass/Vol] 0.8 mg/dL Normal 0.0-1.1 [facility] Comment on above: Performed By: #### 2 816056, 5683988, 19517531, 0060089, 07892214, 8218355, 9322268, 7104208, 98570994, 5155350, 8153838, 8071031 ####[facility] [address] [place] [address] Creatinine [Mass/Vol] 3.1 mg/dL High 0.5-1.3 [facility] Comment on above: Performed By: #### 2 935389, 3622600, 79552561, 5063680, 97240580, 1128662, 8573063, 9991219, 65508626, 0238969, 3888867, 5270954 ####[facility] [address] [place] [address] Globulin (S) [Mass/Vol] 4.0 g/dL Normal 1.4-4.0 [facility] Comment on above: Performed By: #### 2 403055, 4753866, 34967869, 6962090, 31388180, 1016191, 3575213, 2229138, 57076192, 9143644, 7917351, 0737605 ####[facility] [address] [place] [address] Protein [Mass/Vol] 7.2 g/dL Normal 6.0-7.8 [facility] Comment on above: Performed By: #### 2 679660, 3210194, 68783645, 5577359, 52284507, 6174566, 9335334, 0867766, 26039033, 9912717, 1764634, 1916209 ####[facility] [address] [place] [address] Urea nitrogen [Mass/Vol] 52 mg/dL High 5-21 [facility] Comment on above: Performed By: #### 2 017960, 7471718, 48003432, 4514734, 15415775, 4562129, 5973697, 1313553, 43049549, 0298422, 4709694, 3879236 ####[facility] [address] [place] [address] Urea nitrogen/Creatinine [Mass ratio] 17 No Units Normal 10-20 [facility] Comment on above: Performed By: #### 2 075164, 8550064, 41494712, 3183765, 35351511, 5205603, 7636730, 4025972, 26332977, 6975317, 1998554, 4261972 ####[facility] [address] [place] [address] Anion gap [Moles/Vol] 14 mmol/L Normal 6-16 [facility] Comment on above: Performed By: #### 2 049503, 9127919, 11121243, 5740667, 45464237, 0036440, 7089034, 9634238, 90502621, 6969785, 8694774, 1132434 ####[facility] [address] [place] [address] Calcium [Mass/Vol] 8.6 mg/dL Low 8.9-11.1 [facility] Comment on above: Performed By: #### 2 259508, 2023100, 35151856, 4106575, 37556768, 5492062, 6116920, 0920230, 96545932, 2188994, 3455109, 4772770 ####[facility] [address] [place] [address] Chloride [Moles/Vol] 107 mmol/L Normal 101-111 [facility] Comment on above: Performed By: #### 2 450550, 8475983, 33541364, 2120767, 20726891, 7855548, 6552736, 1319071, 48443797, 7887790, 6073627, 2740314 ####[facility] [address] [place] [address] CO2 [Moles/Vol] 20 mmol/L Low 21-31 [facility] Comment on above: Performed By: #### 2 901532, 9446336, 26353851, 2419507, 87493114, 2686056, 7141332, 0516896, 20376723, 7478080, 1532839, 5902584 ####[facility] [address] [place] [address] Glucose [Mass/Vol] 247 mg/dL High 55-199 [facility] Comment on above: Result Comment: If t his glucose result represents a fasting glucose, interpretation should refer to the following reference range: 55-99 mg/dL Performed By: #### 2 853830, 6809400, 90480128, 6936421, 61642463, 3101504, 8860510, 4186601, 53050173, 8407476, 2814213, 1741174 ####[facility] [address] [place] [address] Potassium [Moles/Vol] 5.1 mmol/L Normal 3.5-5.3 [facility] Comment on above: Performed By: #### 2 952750, 8755226, 06103664, 4555327, 01834038, 2818831, 1474108, 6470597, 26417694, 9118998, 1460754, 5705748 ####[facility] [address] [place] [address] Sodium [Moles/Vol] 136 mmol/L Normal 135-145 [facility] Comment on above: Performed By: #### 2 228128, 5747650, 50887387, 3579529, 77714616, 3260721, 1477760, 4523416, 74894189, 6836123, 4653266, 5883917 ####[facility] [address] [place] [address] COAGULATIONOrdered By: Fernando Coy on 10-05-2023 aPTT Coag (PPP) [Time] 28.4 s Normal 25.1 - 36.5 second(s) [facility] Comment on above: Interpretive Data: P arameter 15 days - 4 weeks 1 - 5 months 6 - 11 months 1 - 5 years 6 - 10 years 11 - 17 years PTT Mean: 35.4 (27.6-45.6) Mean: 33.5 (24.8-40.7) Mean: 32.4 (25.1-40.7) Mean: 31.6 (24.0-39.2) Mean: 31.6 (26.9-38.7) Mean: 31.0 (24.6-38.4) Pediatric Reference ranges were obtained from a study by Mikey Franco et al. prepared from 1437 samples obtained at 7 different centers using the same coagulation reagent and instrumentation as [facility] [place]. Currently there are no coagulation studies available worldwide for children to 14 days, and no normal ranges. Heparin therapeutic range (represented by Anti-Factor Xa activity of 0.2 - 0.4 U/mL) corresponds to PTT of 56.6 - 109.0 sec. INR Coag (PPP) [Relative time] 1.1 {INR} Invalid Interpretation Code [facility] [place] [facility] Comment on above: Interpretive Data: I NR results are specifically intended to assess patients stabilized on long-term Anticoagulation therapy suggested INR s Less Intensive Anticoagulation 2.0 3.0 Conventional Range 3.0 4.5 PT Coag (PPP) [Time] 12.4 s Normal 9.4 - 1 2.5 second(s) [facility] [place] [facility] Comment on above: Interpretive Data: 1 5 days - 4 weeks 1 - 5 months 6 -11 months 1-5 years 6-10 years 11 -17 years Mean: 11.2 (9.5-12.6) Mean: 11.0 (9.7-12.8) Mean: 11.0 (9.8-13.0) Mean: 11.3 (9.9-13.4) Mean: 11.7 (10.0-14.6) Mean: 11.8 (10.0 - 14.1) Pediatric Reference ranges were obtained from a study by Mikey Franco et al. prepared from 1437 samples obtained at 7 different centers using the same coagulation reagent and instrumentation as [facility] [place]. Currently there are no coagulation studies available worldwide for children to 14 days, and no normal ranges. CT Pelvis w/o Contraston CT Pelvis w/o Contrast Normal [facility] Capillary Glucose POCon Glucose [Mass/Vol] 192 mg/dL High 55-99 [facility] Comment on above: Result Comment: Eleno ALEXIS Performed By: #### 2 [id number] ####[facility] [address] [place] [address] Glucose [Mass/Vol] 196 mg/dL High 55-99 [facility] Comment on above: Result Comment: Eleno ALEXIS Performed By: #### 2 [id number] ####[facility] [address] [place] [address] Glucose [Mass/Vol] 214 mg/dL High 55-99 [facility] Comment on above: Result Comment: Eleno king RN/ Performed By: #### 2 [id number] ####[facility] [address] [place] [address] Cefepime STEPHIE [Susc]Ordered B y: Kristan Gudino on 10-05-2023 [facility] Staphylococcus epidermidis Staphylococcus epidermidis [facility] Cefepime STEPHIE [Susc]Ordered B y: Rashida Yao on 10-05-2023 [facility]i [facility] Consent for Treatmenton Consent for Treatment [id number] IFF Normal [facility] Consultation Noteon 10-05-20 Consultation Note Normal [facility] Comment on above: Result Comment: Elec tronically Signed By: DAVID GAMEZ, Kaden Lee\.br\Date and Time Signed: 10/05/23 11:57 EST ED Clinical Summaryon 2022 ED Clinical Summary Normal [facility] ED Note-Nursingon 10-05-2023 ED Note-Nursing This RN went to [facility] pt with IM abx. Pt c/o feeling cold and shivering, looking pale. Pt. noted to be tachycardic. Temp checked- 39.[address] Valdes made aware. Normal [facility] ED Note-Nursing Dr. Collins to room t o attempt deflating catheter balloon without success. Dr. Lopes to consult patient in ED. Patient tolerated well. Patient continues to c/o pain 06/13. Normal [facility] ED Note-Nursing Dr. Lopes to return call. [facility] updated on poc at this time. Normal [facility] ED Note-Nursing Patient arrived with catheter in place, with no urine output in bag. RN x2 and ED physician attempted to deflate balloon, and reinsert. Unable to aspirate any saline out of balloon, unable to advance or pull back on catheter. Normal [facility] ED Note-Physicianon 10-05-20 ED Note-Physician Normal [facility] Comment on above: Result Comment: Elec tronically Signed By: Randy Valdes DO\.br\Date and Time Signed: 10/05/23 14:44 EST ED Patient Education Noteon 10-05-2023 ED Patient Education Note Normal [facility] ED Patient Summaryon 023 ED Patient Summary Normal [facility] Ferritinon 10-05-2023 Ferritin [Mass/Vol] 516 ng/mL High 24-336 [facility] Comment on above: Result Comment: NORM ALS MEN <30 YRS 16-132 ng/mL MEN >30 YRS 8-338 ng/mL WOMEN (PREMEN) 6-104 ng/mL WOMEN (POSTMEN) 12-210 ng/mL Performed By: #### 2 113583, 3948207, 51951022, 8038473, 01060414, 7448824, 0853716, 7636284, 71449512, 0330259, 3736002, 2824854 ####[facility] [address] [place] [address] Folateon 10-05-2023 Folate [Mass/Vol] 11.6 ng/mL Normal >=6.7 [facility] Comment on above: Performed By: #### 2 265527, 2030833, 83693901, 3180976, 05924839, 3244818, 1349143, 2298457, 76606062, 6169007, 3744592, 0000448 ####[facility] [address] [place] [address] HEMATOLOGYOrdered By: SYSTEM SYSTEM on 10-05-2023 Basophils/100 WBC (Bld) 0.1 % Normal 0.0 - 2.0 % [facility] HemeAutoSS Basophils/Leukocytes Auto (Bld) [Pure # fraction] 0.0 E9/L Normal 0.0 - 0.2 E9/L [facility] HemeAutoSS Eosinophils/100 WBC (Bld) 0.4 % Normal 0.0 - 8.0 % [facility] HemeAutoSS Eosinophils/Leukocytes Auto (Bld) [Pure # fraction] 0.0 E9/L Normal 0.0 - 0.5 E9/L [facility] HemeAutoSS Lymphocytes/100 WBC (Bld) 3.5 % Low 14.0 - 50.0 % [facility] HemeAutoSS Lymphocytes/Leukocytes Auto (Bld) [Pure # fraction] 0.2 E9/L Low 1.0 - 4.0 E9/L [facility] [facility] HemeAutoSS Monocytes/100 WBC (Bld) 0.8 % Low 4.0 - 14.0 % [facility] [place] HemeAutoSS Monocytes/Leukocytes Auto (Bld) [Pure # fraction] 0.0 E9/L Low 0.2 - 1.0 E9/L [facility] HemeAutoSS Neutrophils/100 WBC (Bld) 95.2 % High 36.0 - 75.0 % [facility] [place] HemeAutoSS Neutrophils/Leukocytes Auto (Bld) [Pure # fraction] 5.3 E9/L Normal 2.0 - 7.5 E9/L [facility] HemeAutoSS Influenza A&B Agon 3 Influenzae A Ag Negative Normal Negative [facility] Comment on above: Performed By: #### 1 [id number], [id number] ####[facility] [address] [place] [address] Influenzae B Ag Negative Normal Negative [facility] Comment on above: Result Comment: Test sensitivity and specificity vary for age group, specimen type, antigen types, and prevalence of disease. Test results must be evaluated in conjunction with other clinical data available to the physician. Individuals who received nasally administered Influenza A vaccine may have positive test results up to 3 days after vaccination. Performed By: #### 1 [id number], [id number] ####[facility] [address] [place] [address] Ironon 10-05-2023 Iron [Mass/Vol] 32 microgram/dL Low 35-153 [facility] Comment on above: Performed By: #### 2 948047, 5094728, 63831959, 2377077, 73089860, 8369424, 1197638, 7547945, 84143093, 9039463, 0025275, 0716894 ####[facility] [address] [place] [address] Lactic Acidon 10-05-2023 Lactate [Mass/Vol] 1.8 mmol/L Normal 0.5-2.2 [facility] Comment on above: Order Comment: Order added by EKS Rule. (FT_LACTIC_ACID_REFLEX) Adds reflex Lactic Acid 4 hours after initial if result is greater than or equal to 2.0. Performed By: #### 2 515860 ####[facility] [address] [place] [address] Lactate [Mass/Vol] 3.1 mmol/L High 0.5-2.2 [facility] Comment on above: Performed By: #### 2 326609, 3582050, 52692583, 2939894, 37518647, 1837513, 6364812, 4002595, 68953111, 2354860, 9769441, 9240994 ####[facility] [address] [place] [address] MICRO OTHER TESTSOrdered By: Johnathan Coy on 10-05-2023 Influenzae A Ag Negative (10/05/23 2:10 PM) Normal Negative [facility] Influenzae B Ag Negative 1 (10/05/23 2:10 PM) Normal Negative [facility] Comment on above: Interpretive Data: T est sensitivity and specificity vary for age group, specimen type, antigen types, and prevalence of disease. Test results must be evaluated in conjunction with other clinical data available to the physician. Individuals who received nasally administered Influenza A vaccine may have positive test results up to 3 days after vaccination. Rapid COV Int NEG Ctl Pass (10/05/23 2:10 PM) Normal [facility] Rapid COV Int POS Ctl Pass (10/05/23 2:10 PM) Normal [facility] SARS-CoV+SARS-CoV-2 (COVID-19) Ag IA.rapid Ql (Resp) Not Detected 18 (10/05/23 2:10 PM) Normal Not Detected [facility] Comment on above: Interpretive Data: Samuel he [employer] Veritor System for Rapid Detection of SARS-CoV-2 is a chromatographic digital immunoassay intended for the direct and qualitative detection of SARS-CoV-2 nucleocapsid antigens in nasal swabs from individuals who are suspected of COVID-19 by their healthcare provider within the first five days of the onset of symptoms. Negative results should be treated as presumptive, do not rule out SARS-CoV-2 infection and should not be used as the sole basis for treatment or patient management decisions, including infection control decisions. Negative results should be considered in the context of a patient s recent exposures, history and the presence of clinical signs and symptoms consistent with COVID-19, and confirmed with a molecular assay, if necessary, for patient management. For in vitro diagnostic use. In the [place], only for use under an Emergency Use Authorization. In the [place], this test has not been FDA cleared or approved; this test has been authorized by FDA under an EUA for use by authorized laboratories; use by laboratories certified under the CLIA, 42 U.S.C. 263a, that meet requirements to perform moderate, high, or waived complexity tests and at the Point of Care (POC), i.e., in patient care settings operating under a CLIA Certificate of Waiver, Certificate of Compliance, or Certificate of Accreditation. This test has been authorized only for the detection of proteins from SARS-CoV-2, not for any other viruses or pathogens; and, in the [facility], this test is only authorized for the duration of the declaration that circumstances exist justifying the authorization of emergency use of in vitro diagnostics for detection and/or diagnosis of the virus that causes COVID-19 under Section 564(b)(1) of the Act, 21 U.S.C. 360bbb-3(b)(1), unless the authorization is terminated or revoked sooner. No Panel InformationOrdered By: ANGPROCESSSERVER MICROBIOLOGY on 10-05-2023 Blood Culture Charcoal No growth at 6 da ys. Final to follow at [address] [facility] Recordson 10-05 [facility] Records [id number] FF Normal [facility] PT & PTTon 10-05-2023 aPTT Coag (PPP) [Time] 28.4 second(s) Normal 25.1-36.5 [facility] Comment on above: Result Comment: Para meter 15 days - 4 weeks 1 - 5 months 6 - 11 months 1 - 5 years 6 - 10 years 11 - 17 years PTT Mean: 35.4 (27.6-45.6) Mean: 33.5 (24.8-40.7) Mean: 32.4 (25.1-40.7) Mean: 31.6 (24.0-39.2) Mean: 31.6 (26.9-38.7) Mean: 31.0 (24.6-38.4) Pediatric Reference ranges were obtained from a study by Mikey Franco et al. prepared from 1437 samples obtained at 7 different centers using the same coagulation reagent and instrumentation as [facility]. Currently there are no coagulation studies available worldwide for children to 14 days, and no normal ranges. Heparin therapeutic range (represented by Anti-Factor Xa activity of 0.2 - 0.4 U/mL) corresponds to PTT of 56.6 - 109.0 sec. Performed By: #### 2 289634, 9315100, 26195925, 7774179, 36897064, 3188248, 2401152, 0896593, 75903393, 8937963, 9308472, 5740450 ####[facility] [address] [place] [address] INR Coag (PPP) [Relative time] 1.1 {INR} Invalid Interpretation Code [facility] Comment on above: Result Comment: INR results are specifically intended to assess patients stabilized on long-term Anticoagulation therapy suggested INR?s ?Less Intensive Anticoagulation? 2.0 ? 3.0Conventional Range 3.0 ? 4.5 Performed By: #### 2 825736, 3399909, 08438526, 6748030, 32102608, 1297146, 7872417, 5606872, 70502687, 5033257, 7978691, 7655729 ####[facility] [address] [place] [address] PT Coag (PPP) [Time] 12.4 second(s) Normal 9.4-12.5 [facility] Comment on above: Result Comment: 15 d ays - 4 weeks 1 - 5 months 6 -11 months 1-5 years 6-10 years 11 -17 years Mean: 11.2 (9.5-12.6) Mean: 11.0 (9.7-12.8) Mean: 11.0 (9.8-13.0) Mean: 11.3 (9.9-13.4) Mean: 11.7 (10.0-14.6) Mean: 11.8 (10.0 - 14.1) Pediatric Reference ranges were obtained from a study by Mikey Franco et al. prepared from 1437 samples obtained at 7 different centers using the same coagulation reagent and instrumentation as [facility]. Currently there are no coagulation studies available worldwide for children to 14 days, and no normal ranges. Performed By: #### 2 017884, 3357731, 53086114, 7484849, 56596958, 5928093, 2325843, 7928359, 97644392, 9769833, 4775736, 4487846 ####[address] [place] [address] Pre-Arrival Noteon 3 Pre-Arrival Note Normal [facility] RAD - Preliminary Cat Scan R eporton 10-05-2023 RAD - Preliminary Cat Scan Report [id number] FF Normal [facility] Rapid COVID Antigen ([facility])on 10-05-2023 Rapid COV Int NEG Ctl Pass Normal [facility] Comment on above: Performed By: #### 1 [id number], [id number] ####[address] [place] [address] Rapid COV Int POS Ctl Pass Normal [facility] Comment on above: Performed By: #### 1 [id number], [id number] ####[address] [place] [address] SARS-CoV+SARS-CoV-2 (COVID-19) Ag IA.rapid Ql (Resp) Not detected Normal Not Detected [facility] Comment on above: Result Comment: The [employer]? System for Rapid Detection of SARS-CoV-2 is a chromatographic digital immunoassay intended for the direct and qualitative detection of SARS-CoV-2 nucleocapsid antigens in nasal swabs from individuals who are suspected of COVID-19 by their healthcare provider within the first five days of the onset of symptoms. Negative results should be treated as presumptive, do not rule out SARS-CoV-2 infection and should not be used as the sole basis for treatment or patient management decisions, including infection control decisions. Negative results should be considered in the context of a patient?s recent exposures, history and the presence of clinical signs and symptoms consistent with COVID-19, and confirmed with a molecular assay, if necessary, for patient management. For in vitro diagnostic use. In the [facility], only for use under an Emergency Use Authorization. In the [place], this test has not been FDA cleared or approved; this test has been authorized by FDA under an EUA for use by authorized laboratories; use by laboratories certified under the CLIA, 42 U.S.C. ?263a, that meet requirements to perform moderate, high, or waived complexity tests and at the Point of Care (POC), i.e., in patient care settings operating under a CLIA Certificate of Waiver, Certificate of Compliance, or Certificate of Accreditation.This test has been authorized only for the detection of proteins from SARS-CoV-2, not for any other viruses or pathogens; and, in the [facility], this test is only authorized for the duration of the declaration that circumstances exist justifying the authorization of emergency use of in vitro diagnostics for detection and/or diagnosis of the virus that causes COVID-19 under Section 564(b)(1) of the Act, 21 U.S.C. ? 360bbb-3(b)(1), unless the authorization is terminated or revoked sooner. Performed By: #### 1 [id number], [id number] ####[facility] [address] [place] [address] TIBC Calculatedon 10-05-2023 Iron binding capacity [Mass/Vol] 239 microgram/dL Low 250-400 [facility] Comment on above: Performed By: #### 2 434076, 8235389, 71363701, 1370874, 21447579, 2344517, 0494535, 9794874, 95167995, 5278630, 1806410, 5694483 ####[facility] [address] [place] [address] Transferrin [Mass/Vol] 171 mg/dL Low 200-370 [facility] Comment on above: Performed By: #### 2 187630, 0446062, 16802018, 3937659, 70271347, 8729053, 2796014, 4695362, 82702088, 7844616, 9436075, 2309703 ####[address] [place] [address] Troponinon 10-05-2023 Troponin I.cardiac [Mass/Vol] 19.40 pg/mL Normal 15.90-38.40 [facility] Comment on above: Result Comment: The 95% CI (Confidence Interval) PPV (Positive Predictive Value) for myocardial infarction in females is 38 pg/mL, in males 51 pg/mL. The results should be used in conjunction with clinical conditions of myocardial infarction.(Access High Sensitivity Troponin I Instructions For Use, [employer], June 2018) Performed By: #### 2 980710, 6471895, 01015532, 5425958, 83718672, 7650305, 9460411, 1261065, 30703048, 9304812, 8654140, 9232061 ####[address] [address] UA With Cult Reflexon 2022 Bacteria LM Ql (Urine sed) 3+ /HPF Abnormal Trace [facility] Comment on above: Performed By: #### 1 7633397, 9579731 ####[address] [address] Bilirubin Ql (U) Negative Normal Negative [facility] Comment on above: Performed By: #### 1 0628234, 3056608 ####[address] [address] Clarity (U) CLOUDY Abnormal Clear [facility] Comment on above: Performed By: #### 1 7866490, 2891231 ####[address] [address] Color (U) STRAW Abnormal Yellow [facility] Comment on above: Performed By: #### 1 4968356, 3492554 ####[address] [address] Epithelial cells.squamous LM.HPF (Urine sed) [#/Area] 0-2 Normal 0-2 [facility] Comment on above: Performed By: #### 1 0447369, 4037298 ####[facility] [address] [place] [address] Glucose Test strip (U) [Mass/Vol] 2+ Abnormal Negative [facility] Comment on above: Performed By: #### 1 8786905, 9122252 ####[facility] [address] [place] [address] Hemoglobin Ql (U) 2+ Abnormal Negative [facility] Comment on above: Performed By: #### 1 6757314, 0975352 ####[address] [address] Ketones (U) [Mass/Vol] Negative Normal Negative [facility] Comment on above: Performed By: #### 1 3261499, 0408923 ####[address] [address] Fernwood.plasma/[place]. RBC (Bld) [Mass ratio] 4-20 Normal 0-3 [facility] Comment on above: Performed By: #### 1 0578627, 7977046 ####[address] [address] Nitrite Ql (U) Negative Normal Negative [facility] Comment on above: Performed By: #### 1 1013840, 7701710 ####[address] [address] pH (U) 8.5 [pH] Invalid Interpretation Code 5.0-9.0 [facility] Comment on above: Performed By: #### 1 9572684, 8131660 ####[address] [address] Protein (U) [Mass/Vol] 2+ Abnormal Negative [facility] Comment on above: Performed By: #### 1 6144549, 1939213 ####[address] [address] Specific gravity (U) [Rel density] 1.015 Invalid Interpretation Code 1.005-1.030 [facility] Comment on above: Performed By: #### 1 1762266, 3808936 ####[place] [address] Type of Urine collection method Todd Normal [facility] Comment on above: Performed By: #### 1 8872433, 6949420 ####[place] [address] Urobilinogen Qn (U) 0.2 {Génesis'U}/dL Normal 0.0-1.0 [facility] Comment on above: Performed By: #### 1 6842539, 9557470 ####[place] [address] WBC Auto Ql (U) 3+ Abnormal Negative [facility] Comment on above: Performed By: #### 1 2180312, 2102312 ####[place] [address] WBC LM.HPF (Urine sed) [#/Area] /[HPF] Abnormal 0-5 [facility] Comment on above: Performed By: #### 1 1671480, 8083929 ####[place] [address] URINALYSISOrdered By: Malcolm Coy on 10-05-2023 Bacteria LM Ql (Urine sed) 3+ /HPF Invalid Interpretation Code Trace/HPF [facility] UA Auto SS Bilirubin Ql (U) Negative (10/05/23 12:19 PM) Normal Negative [facility] UA Auto SS Clarity (U) Cloudy *ABN* (10/05/23 12:19 PM) Invalid Interpretation Code Clear [facility] UA Auto SS Color (U) Straw *ABN* (10/05/23 12:19 PM) Invalid Interpretation Code Yellow [facility] UA Auto SS Epithelial cells.squamous LM.HPF (Urine sed) [#/Area] 0-2 /HPF Normal 0-2/HPF [facility] UA Auto SS Glucose Test strip (U) [Mass/Vol] 2+ *ABN* (10/05/23 12:19 PM) Invalid Interpretation Code Negative [facility] UA Auto SS Hemoglobin Ql (U) 2+ *ABN* (10/05/23 12:19 PM) Invalid Interpretation Code Negative [facility] UA Auto SS Ketones (U) [Mass/Vol] Negative (10/05/23 12:19 PM) Normal Negative [facility] UA Auto SS Fernwood.plasma/[place]. RBC (Bld) [Mass ratio] 4-20 /HPF Normal 0-3/HPF [facility] UA Auto SS Nitrite Ql (U) Negative (10/05/23 12:19 PM) Normal Negative [facility] UA Auto SS pH (U) 8.5 *NA* (10/05/23 12:19 PM) Invalid Interpretation Code 5.0 - 9.0 [facility] UA Auto SS Protein (U) [Mass/Vol] 2+ *ABN* (10/05/23 12:19 PM) Invalid Interpretation Code Negative [facility] UA Auto SS Specific gravity (U) [Rel density] 1.015 *NA* (10/05/23 12:19 PM) Invalid Interpretation Code 1.005 - 1.030 [facility] UA Auto SS UA Spec Desc Todd (10/05/23 12:19 PM) Normal [facility] UA Auto SS Urobilinogen Qn (U) 0.1114989 {Génesis'U}/dL Normal 0.0 - 1.0 EU/dL [facility] UA Auto SS WBC Auto Ql (U) 3+ *ABN* (10/05/23 12:19 PM) Invalid Interpretation Code Negative [facility] UA Auto SS WBC LM.HPF (Urine sed) [#/Area] /[HPF] Invalid Interpretation Code 0-5/HPF [facility] UA Auto SS Vit B12on 10-05-2023 Cobalamin (Vitamin B12) [Mass/Vol] 455 pg/mL Normal 50-1500 [facility] Comment on above: Performed By: #### 2 676322, 7409172, 14022722, 7877350, 81701459, 7791711, 5184018, 7152638, 59073912, 7856920, 0144391, 6692707 ####[facility] [address] [place] [address] XR Chest Single Viewon 10-05 XR Chest Single View Normal [facility] eGFRon 10-05-2023 GFR/1.73 sq M.predicted among non-blacks MDRD (S/P/Bld) [Vol rate/Area] 22 mL/min/1.73 m2 Low >=59 [facility] Comment on above: Order Comment: Order added by Discern Expert. 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 Kidney failure is indicated at less than 15 mL/min/1.73m2. Performed By: #### 2 776743, 5572332, 78073105, 8888949, 74217433, 0550832, 6223350, 0845813, 89262065, 6432232, 7697649, 6020464 ####[facility] [address] [place] [address] Erythropoiet Lvlon 3 Erythropoietin (EPO) Qn 9.2 mIU/mL Invalid Interpretation Code 2.6-18.5 [facility] Comment on above: Result Comment: [employer] DxI 800 Immunoassay SystemValues obtained with different assay methods or kits cannot be usedinterchangeably. Results cannot be interpreted as absolute evidenceof the presence or absence of malignant disease.Performed at: [facility] [id number] PhD Darryl Ramirez Performed By: #### 2 700451, 68388679, 5783643, 3192479, 9014729, 1374027, 82178466, 9503707, 8928363, 9597243, 9517073, 1869924, 5136603, 63183428, 74723147, 246611105, 96750126, 93799857 ####[facility] [address] [place] [address] Free K+L Lt Chains,Qn,Son Immunoglobulin light chains.kappa.free (S) [Mass/Vol] 117.9 mg/L High 3.3-19.4 [facility] Comment on above: Performed By: #### 2 911290, 28900355, 2119435, 6201534, 3170133, 4581296, 22398574, 3239825, 1000319, 1584297, 5595804, 3341363, 6321925, 19147202, 36298124, 430563235, 28521117, 71157893 ####[address] [place] [address] Immunoglobulin light chains.kappa.free/Immun oglobulin light chains.lambda.free (S) [Mass ratio] 1.85 High 0.26-1.65 [facility] Comment on above: Result Comment: Perf ormed at: [facility] [address] [place], [place] [id number] PhD Darryl Ramirez Performed By: #### 2 925509, 89167639, 8751655, 4265150, 8127201, 4551212, 58000112, 1373962, 1453566, 3322380, 4759689, 9789999, 9478646, 45926734, 75825116, 662164300, 70688861, 03421727 ####[address] [place] [address] Immunoglobulin light chains.lambda.free [Mass/Vol] 63.6 mg/L High 5.7-26.3 [facility] Comment on above: Performed By: #### 2 055056, 27844980, 7008501, 2996580, 3562186, 2544521, 20686875, 9315995, 4630761, 2823507, 3733197, 9316631, 5573378, 19240493, 47254926, 478695873, 77385274, 69493938 ####[address] [place] [address] TARAN and PE, Serumon 10-04-20 23 Albumin [Mass/Vol] 3.0 g/dL Invalid Interpretation Code 2.9-4.4 [facility] Comment on above: Performed By: #### 2 400064, 31242680, 9409256, 4182245, 1152951, 0915128, 95140117, 2481616, 5199724, 3645962, 2028511, 9659780, 1691161, 29094495, 25354628, 663597265, 50732893, 15199105 ####[address] [place] [address] Albumin/Globulin [Mass ratio] 0.8 {ratio} Invalid Interpretation Code 0.7-1.7 [facility] Comment on above: Performed By: #### 2 670046, 44553835, 3860981, 4010827, 6516886, 1811025, 22787272, 7096938, 7942302, 6887229, 3925269, 0515341, 2821906, 57115227, 75101516, 256143981, 69674115, 24844822 ####[address] [address] Alpha 1 globulin Elph [Mass/Vol] 0.2 g/dL Invalid Interpretation Code 0.0-0.4 [facility] Comment on above: Performed By: #### 2 553996, 19718568, 3683217, 5625496, 3072875, 0686001, 49970031, 4791562, 4016737, 4486215, 0490595, 9079119, 0152456, 14318654, 07930817, 806327507, 83190837, 76721095 ####[address] [address] Alpha 2 globulin Elph [Mass/Vol] 1.0 g/dL Invalid Interpretation Code 0.4-1.0 [facility] Comment on above: Performed By: #### 2 173481, 30971179, 6072051, 0580503, 4397580, 1305845, 92734914, 0589874, 9585613, 5744171, 1457709, 5585210, 1114065, 64040092, 92197671, 732649622, 61804209, 64901357 ####[address] [address] Beta globulin Elph [Mass/Vol] 1.0 g/dL Invalid Interpretation Code 0.7-1.3 [facility] Comment on above: Performed By: #### 2 845882, 48007773, 3533582, 7926393, 3479896, 7578448, 37180024, 5537655, 6952227, 9935394, 5478183, 5042465, 8171567, 95944796, 26949241, 524811856, 74993341, 81722873 ####[facility] [address] [place] [address] Gamma globulin Elph [Mass/Vol] 1.5 g/dL Invalid Interpretation Code 0.4-1.8 [facility] Comment on above: Performed By: #### 2 064463, 70158040, 7105854, 2127293, 1995208, 2294343, 13201198, 0058338, 1347213, 3891034, 5565070, 7265354, 5389685, 66679329, 29404140, 343246555, 00201372, 21475524 ####[facility] [address] [place] [address] Globulin (S) [Mass/Vol] 3.8 g/dL Invalid Interpretation Code 2.2-3.9 [facility] Comment on above: Performed By: #### 2 862741, 29470663, 4430007, 3991972, 1390168, 0919870, 70496913, 4082776, 3342051, 4463039, 2165094, 6508196, 0645796, 08494180, 32676267, 696914015, 09216585, 94570087 ####[facility] [address] [place] [address] IgA [Mass/Vol] 370 mg/dL Invalid Interpretation Code 61-437 [facility] Comment on above: Performed By: #### 2 863093, 69848158, 6330763, 6290870, 5238850, 3660813, 62991496, 3131716, 3338034, 9509976, 8121148, 4966588, 2198492, 96664987, 43680558, 857056570, 45462745, 78143881 ####[facility] [address] [place] [address] IgG [Mass/Vol] 1580 mg/dL Invalid Interpretation Code 605-5182 [facility] Comment on above: Performed By: #### 2 795737, 11771309, 0955375, 6077410, 9554410, 0841360, 19707442, 6988613, 8128749, 0488829, 7910970, 8010676, 6044908, 11465660, 23271154, 485522837, 03090334, 78357340 ####[facility] [address] [place] [address] IgM [Mass/Vol] 98 mg/dL Invalid Interpretation Code 20172 [facility] Comment on above: Performed By: #### 2 494688, 96871539, 8399693, 5974881, 8512598, 6252526, 98641699, 9504684, 9125309, 1084659, 4509023, 3988187, 7958187, 89652638, 47165770, 666086363, 15991675, 28282006 ####[facility] [address] [place] [address] Interpretation IEP [Interp] Comment Invalid Interpretation Code [facility] Comment on above: Result Comment: No m onoclonality detected. Performed By: #### 2 606942, 83220662, 5930132, 6828245, 5211964, 7619663, 48483275, 1978369, 4562300, 0029599, 9821871, 0269580, 8540744, 69910179, 77085811, 107240596, 65808581, 97478689 ####[facility] [address] [place] [address] Laboratory comment Heri (Report) Comment Invalid Interpretation Code [facility] Comment on above: Result Comment: Prot ein electrophoresis scan will follow via computer, mail, orcourier delivery.Performed at: [facility] [place], [place] [id number] PhD Darryl Ramirez Performed By: #### 2 149846, 60084466, 3650429, 8342808, 6042388, 3164323, 32038644, 9540742, 7674809, 3759743, 3918953, 0780858, 0356461, 44901238, 94490631, 047695848, 23313251, 68082796 ####[facility] [address] [place] [address] Protein [Mass/Vol] 6.8 g/dL Invalid Interpretation Code 6.0-8.5 [facility] Comment on above: Performed By: #### 2 424412, 50659177, 1622321, 9052858, 4649146, 0496138, 74478702, 0718444, 3362664, 3867209, 1278911, 3885423, 7050220, 53590151, 25152992, 871956151, 38327041, 18146521 ####[facility] [address] [place] [address] Protein.monoclonal Elph [Mass/Vol] Not Observed Invalid Interpretation Code Not Observed [facility] Comment on above: Performed By: #### 2 615098, 09050990, 4032566, 3475687, 8830565, 1189839, 34192676, 5614230, 5152684, 7713424, 2734954, 4981036, 1580711, 58526279, 18009045, 503052430, 79160609, 74023219 ####[facility] [address] [place] [address] Immunoglobs. A/E/G/Mon 10-04 IgE Qn 45 International_Unit/mL Invalid Interpretation Code 6-495 [facility] Comment on above: Result Comment: Perf ormed at: [facility] [address] [id number] MD Guy Allen Performed By: #### 2 363454, 21517722, 7406540, 5171424, 2384445, 2032707, 63565333, 8931173, 4670108, 3577575, 3498925, 3115590, 2346727, 59049720, 39446446, 870826218, 71021405, 35872604 ####[facility] [address] [place] [address] Consenton 10-03-2023 Consent [id number] [id number]#1.00TI FF Normal [facility] ONC - Otheron 10-03-2023 ONC - Other [id number] [id number]#1.00TI FF Normal [facility] .Manual Abson 09-30-2023 Basophils/Leukocytes Manual cnt (Bld) [Pure # fraction] 0.1 E9/L Normal 0.0-0.2 [facility] Comment on above: Performed By: #### 2 420736, 05392270, 4171412, 5268186, 9422901, 5987295, 89995845, 4974393, 6681219, 4286899, 1192422, 8737009, 9737797, 86871022, 90217603, 986072861, 42618398, 95390047 ####[facility] [address] [place] [address] Eosinophils/Leukocytes Manual cnt (Bld) [Pure # fraction] 0.3 E9/L Normal 0.0-0.5 [facility] Comment on above: Performed By: #### 2 932337, 71198505, 0385672, 4419739, 0205355, 1778689, 41725258, 3408627, 0795719, 5136226, 6694859, 0758442, 7803148, 23407216, 42557003, 764676654, 82979862, 93045873 ####[address] [place] [address] Lymphocytes/Leukocytes Manual cnt (Bld) [Pure # fraction] 1.5 E9/L Normal 1.0-4.0 [facility] Comment on above: Performed By: #### 2 585229, 41512570, 4933578, 4163277, 6360763, 7648672, 34443864, 7192612, 2506137, 7192522, 7000492, 1920233, 5073855, 58319686, 63564622, 414421712, 11488913, 04871741 ####[address] [place] [address] Monocytes/Leukocytes Manual cnt (Bld) [Pure # fraction] 0.6 E9/L Normal 0.2-1.0 [facility] Comment on above: Performed By: #### 2 115778, 04411515, 2762891, 6835720, 0532603, 6525753, 84454375, 2342132, 0648460, 4068455, 8123348, 9821236, 0362946, 30587041, 59246152, 230479350, 13329202, 66899672 ####[address] [address] Neutrophils/Leukocytes Auto (Bld) [Pure # fraction] 4.4 E9/L Normal 2.0-7.5 [facility] Comment on above: Performed By: #### 2 877279, 04118741, 5625803, 7421833, 9431761, 6280755, 74389868, 3889706, 6350652, 6501555, 5549593, 7237934, 3279858, 43136975, 95885241, 124203580, 75095127, 06949695 ####[address] [address] CBC w/ Auto Diffon 3 Erythrocyte distribution width (RBC) [Ratio] 13.1 % Normal 10.9-14.2 [facility] Comment on above: Performed By: #### 2 337013, 87833544, 7084598, 0540916, 0379207, 6080662, 78783069, 6359118, 8927227, 9635329, 5285225, 1123774, 4115125, 95446980, 03776168, 943070114, 79850187, 22120459 ####[facility] [address] [place] [address] Hematocrit (Bld) [Volume fraction] 28.4 % Low 37.7-49.0 [facility] Comment on above: Performed By: #### 2 886468, 58988155, 0130005, 3133326, 4642830, 2845693, 70814677, 8821691, 2648558, 0325697, 2648089, 6272874, 8569169, 79153903, 21711803, 107545867, 70131987, 96955663 ####[facility] [address] [place] [address] Hemoglobin (Bld) [Mass/Vol] 9.8 g/dL Low 13.5-17.5 [facility] Comment on above: Performed By: #### 2 555600, 79552862, 3136523, 9648827, 1486800, 2093372, 93987274, 2828153, 4964448, 1304352, 0294772, 8336208, 5134060, 08132091, 70975277, 707034732, 69174570, 55285942 ####[facility] [address] [place] [address] MCH (RBC) [Entitic mass] 31.1 pg Normal 27.0-34.0 [facility] Comment on above: Performed By: #### 2 540549, 14529446, 2996269, 1902870, 4750024, 3044012, 12512455, 8201764, 4858562, 7930307, 1748915, 5136995, 9651369, 89037222, 66827636, 157302747, 93185915, 69300876 ####[facility] [address] [place] [address] MCHC (RBC) [Mass/Vol] 34.3 g/dL Normal 31.4-36.0 [facility] Comment on above: Performed By: #### 2 683274, 85404532, 8513434, 6912527, 6727826, 3971927, 32904297, 5585658, 3914769, 5272963, 7492911, 2168749, 5525627, 09032847, 85103148, 320877690, 59905127, 54983549 ####[address] [place] [address] MCV (RBC) [Entitic vol] 90.7 fL Normal 80.0-100.0 [facility] Comment on above: Performed By: #### 2 275645, 79087550, 2975295, 0404809, 6095545, 4184862, 70916432, 4359475, 1003405, 2274182, 3956392, 3597807, 6128701, 00383151, 77128678, 665393629, 76878179, 06295199 ####[address] [address] Platelet mean volume (Bld) [Entitic vol] 6.7 fL Normal 6.4-10.8 [facility] Comment on above: Performed By: #### 2 791523, 40035975, 7467933, 4859311, 9482630, 2235149, 52331043, 1945407, 0835473, 0104203, 8103674, 3194655, 0115801, 68598943, 61422477, 385284154, 10514954, 73407707 ####[address] [address] Platelets (Bld) [#/Vol] 279.0 E9/L Normal 150.0-500.0 [facility] Comment on above: Performed By: #### 2 362068, 03665638, 7088987, 4447801, 1215861, 4080225, 01837620, 1090864, 5282533, 9105186, 1449156, 7213410, 1972490, 14722684, 22084474, 711596372, 93198455, 05304656 ####[address] [place] [address] RBC (Bld) [#/Vol] 3.1 E12/L Low 4.3-5.9 [facility] Comment on above: Performed By: #### 2 504312, 08235302, 0353329, 0332806, 6364234, 3803861, 46741609, 8872135, 3273228, 7103624, 2616232, 0111982, 3630831, 34038827, 70028572, 181385003, 67791053, 40577967 ####[facility] [address] [place] [address] WBC corrected for nucl RBC Auto (Bld) [#/Vol] 6.9 E9/L Normal 4.0-11.0 [facility] Comment on above: Performed By: #### 2 436742, 74533273, 4139964, 2262438, 2585491, 1814517, 72259211, 0100788, 8873853, 5452074, 5333328, 3363797, 4539339, 57443924, 89880559, 462595374, 11685515, 95981580 ####[address] [address] CMPon 09-30-2023 Albumin [Mass/Vol] 3.2 g/dL Low 3.3-5.0 [facility] Comment on above: Performed By: #### 2 358269, 24128815, 0299766, 3995610, 4412889, 5756180, 88891443, 9786607, 6991988, 8353845, 1115673, 2380871, 5390565, 50056277, 01921862, 449855548, 64212168, 21242636 ####[address] [place] [address] Albumin/Globulin (S) [Mass conc ratio] 0.8 Low 1.1-2.2 [facility] Comment on above: Performed By: #### 2 904561, 45914102, 6927616, 7172274, 9775367, 0119784, 02717260, 6793230, 7167702, 5094281, 0572816, 4726668, 8559599, 81595710, 15847428, 470902157, 45184081, 79399079 ####[facility] [address] [place] [address] ALP [Catalytic activity/Vol] 104 Int._Unit/L High 21-98 [facility] Comment on above: Performed By: #### 2 334508, 53303865, 9901712, 8076469, 9020237, 2209847, 91305709, 5404073, 6073181, 3591800, 0780401, 4934100, 1513007, 71499829, 98611134, 280388592, 75237536, 97320303 ####[address] [address] ALT No additional P-5'-P [Catalytic activity/Vol] 16 Int._Unit/L Normal 6-46 [facility] Comment on above: Performed By: #### 2 442116, 66020546, 0520295, 9892952, 9418076, 4424220, 72478118, 3943265, 0058684, 3679946, 3065490, 0915760, 3067554, 83456116, 59089870, 406112927, 27642814, 46956573 ####[address] [address] Anion gap [Moles/Vol] 13 mmol/L Normal 6-16 [facility] Comment on above: Performed By: #### 2 776103, 11215464, 4625693, 5166688, 0857556, 5922609, 72032405, 4821233, 6221699, 7573385, 9074840, 8018381, 1539636, 75520869, 72906292, 598331859, 41127634, 61238145 ####[address] [address] AST [Catalytic activity/Vol] 19 Int._Unit/L Normal 5-43 [facility] Comment on above: Performed By: #### 2 437077, 80552124, 7225224, 8201724, 2934114, 2366057, 11257312, 0553242, 6014364, 4218658, 9216874, 4541600, 1238618, 24057175, 33810154, 502212405, 44628860, 57698621 ####[facility] [address] [place] [address] Bilirubin [Mass/Vol] 0.5 mg/dL Normal 0.0-1.1 [facility] Comment on above: Performed By: #### 2 941553, 72472832, 7015518, 2062962, 7230661, 6125215, 28746044, 6245987, 6381680, 1477082, 5238208, 5030999, 8014091, 04370939, 96341767, 799992940, 95531546, 68295889 ####[address] [place] [address] Calcium [Mass/Vol] 8.9 mg/dL Normal 8.9-11.1 [facility] Comment on above: Performed By: #### 2 142725, 68688455, 1562411, 3854057, 7809643, 7824333, 21345401, 0286304, 9932923, 5655794, 2698701, 4196813, 2632846, 98976838, 05056174, 466362408, 32206448, 28675027 ####[address] [place] [address] Chloride [Moles/Vol] 105 mmol/L Normal 101-111 [facility] Comment on above: Performed By: #### 2 077785, 34554719, 5220576, 8736630, 9293701, 5918513, 12479740, 9018653, 3118848, 7078481, 7175350, 8094722, 4619277, 25892782, 26223587, 985816834, 91694146, 34836789 ####[facility] [address] [place] [address] CO2 [Moles/Vol] 26 mmol/L Normal 21-31 [facility] Comment on above: Performed By: #### 2 785832, 95210249, 9448197, 6443062, 9175318, 4827916, 59968135, 8236494, 6373640, 4010575, 4270274, 8563144, 3360630, 77716790, 83563453, 470169000, 72033877, 43020007 ####[facility] [address] [place] [address] Creatinine [Mass/Vol] 2.0 mg/dL High 0.5-1.3 [facility] Comment on above: Performed By: #### 2 504603, 64658513, 5186843, 9714675, 2295192, 5718648, 36111677, 6951772, 1375729, 3782200, 6089781, 9681230, 0106334, 06801589, 03461440, 549417813, 98722874, 72196072 ####[facility] [address] [place] [address] Globulin (S) [Mass/Vol] 4.0 g/dL Normal 1.4-4.0 [facility] Comment on above: Performed By: #### 2 172327, 25978538, 3692430, 7476337, 8858724, 3877566, 84444976, 1301504, 0838909, 5255167, 9918462, 9124639, 5379388, 26937241, 73426902, 627693085, 59499671, 58762558 ####[facility] [address] [place] [address] Glucose [Mass/Vol] 228 mg/dL High 55-199 [facility] Comment on above: Result Comment: If t his glucose result represents a fasting glucose, interpretation should refer to the following reference range: 55-99 mg/dL Performed By: #### 2 107676, 78514624, 5569319, 0824040, 4256194, 3198064, 32075033, 2736568, 1193623, 5841277, 7082300, 3124991, 6067055, 56798399, 98885570, 685471636, 81666437, 83400554 ####[facility] [address] [place] [address] Potassium [Moles/Vol] 5.6 mmol/L High 3.5-5.3 [facility] Comment on above: Performed By: #### 2 804191, 94282956, 2903761, 5554738, 6056196, 2845550, 21228623, 9353989, 7179335, 6501976, 5475177, 8854369, 6575352, 70275264, 86740440, 219427998, 71219453, 43179076 ####[address] [place] [address] Protein [Mass/Vol] 7.2 g/dL Normal 6.0-7.8 [facility] Comment on above: Performed By: #### 2 228381, 31717037, 8033887, 1633213, 6510502, 2258005, 88634682, 7338143, 3527848, 9671723, 7791132, 8755377, 7810735, 65405566, 31630970, 588926205, 32771157, 84922498 ####[facility] [address] [place] [address] Sodium [Moles/Vol] 138 mmol/L Normal 135-145 [facility] Comment on above: Performed By: #### 2 217548, 93051160, 8523392, 0255490, 4766569, 2563533, 20024919, 3319078, 3939825, 9958726, 6341578, 7512388, 3024167, 59049748, 87242813, 707944371, 56887916, 43981092 ####[facility] [address] [place] [address] Urea nitrogen [Mass/Vol] 46 mg/dL High 5-21 [facility] Comment on above: Performed By: #### 2 616716, 20243370, 0867189, 6672421, 8382244, 7628582, 30676544, 8207490, 1167917, 8784486, 3478916, 7592462, 7020838, 11236626, 84304121, 357438482, 60788829, 25022490 ####[facility] [address] [place] [address] Urea nitrogen/Creatinine [Mass ratio] 23 No Units High 10-20 [facility] Comment on above: Performed By: #### 2 473710, 89221879, 3353421, 1186963, 7914731, 6915780, 29117146, 1614538, 6201598, 2099649, 2717625, 5673231, 1918157, 13202005, 12210777, 254558115, 86840993, 69966448 ####[facility] [address] [place] [address] Consent for Treatmenton 09-05 Consent for Treatment [id number]#1.00TIF F [facility] Consent for Treatment [id number]#1.00TIF F Normal [facility] Ferritinon 09-30-2023 Ferritin [Mass/Vol] 374 ng/mL High 24-336 [facility] Comment on above: Result Comment: NORM ALS MEN <30 YRS 16-132 ng/mL MEN >30 YRS 8-338 ng/mL WOMEN (PREMEN) 6-104 ng/mL WOMEN (POSTMEN) 12-210 ng/mL Performed By: #### 2 735978, 69610297, 7483514, 0845394, 9872131, 1970176, 56224726, 1732562, 3076605, 0231742, 6565668, 7988493, 9765924, 88055505, 67916660, 847578258, 62142246, 83472949 ####[facility] [address] [place] [address] Folateon 09-30-2023 Folate [Mass/Vol] 9.1 ng/mL Normal >=6.7 [facility] Comment on above: Performed By: #### 2 099567, 06278769, 5871988, 1399504, 2865113, 0552625, 84387057, 5074106, 0573642, 1581040, 9686193, 0681609, 1754875, 52014842, 20223355, 110122310, 31884156, 57029172 ####[address] [place] [address] Ironon 09-30-2023 Iron [Mass/Vol] 88 microgram/dL Normal 35-153 [facility] Comment on above: Performed By: #### 2 163809, 37949023, 9468733, 8420278, 0856539, 5194493, 67886979, 0054789, 0671870, 5605676, 1243341, 9989357, 1985720, 71528960, 99096090, 853286761, 42028617, 83807259 ####[address] [place] [address] Iron Saturationon 09-30-2023 Iron binding capacity [Mass/Vol] 246 microgram/dL Low 250-400 [facility] Comment on above: Performed By: #### 2 861056, 30054087, 2784759, 5644249, 5752411, 5675873, 80889574, 1108818, 8347729, 3668829, 9957782, 4867744, 7495143, 81170592, 64594308, 681402249, 48283435, 31760231 ####[address] [place] [address] Iron saturation [Mass fraction] 36 % Normal 20-50 [facility] Comment on above: Performed By: #### 2 700066, 12380340, 5005448, 4701574, 5851666, 7967751, 57993618, 2642326, 5252200, 7724195, 4944144, 5729395, 9315914, 34266541, 38721896, 103278513, 41201871, 06687511 ####[address] [place] [address] LDHon 09-30-2023 LDH [Catalytic activity/Vol] 122 Int._Unit/L Normal 93-218 [facility] Comment on above: Performed By: #### 2 855967, 18533377, 7961761, 9898901, 9465232, 0983913, 89474970, 7621344, 5699677, 7700773, 8951670, 3492285, 8394590, 39413112, 20358840, 449462946, 83424528, 36263359 ####[address] [address] Manual Diffon 09-30-2023 Band form neutrophils/100 WBC (Bld) 0 % Normal 0-10 [facility] Comment on above: Order Comment: Order Added by Discern Expert. Performed By: #### 2 874461, 98356853, 4147248, 9551242, 5558727, 9435440, 98062985, 9539112, 6732661, 8527261, 4792290, 7814270, 3807978, 67959864, 36449186, 215138097, 77767817, 75219528 ####[address] [place] [address] Basophils/100 WBC (Bld) 1 % Normal 0-2 [facility] Comment on above: Order Comment: Order Added by Discern Expert. Performed By: #### 2 008064, 38613029, 9621059, 1036516, 9111215, 8338076, 40206639, 4589431, 7599926, 0454125, 9467613, 8620144, 4651841, 03105361, 10081454, 923300580, 94276290, 81847326 ####[address] [place] [address] Eosinophils/100 WBC (Bld) 5 % Normal 0-8 [facility] Comment on above: Order Comment: Order Added by Discern Expert. Performed By: #### 2 702933, 23497306, 8273348, 0224832, 9850981, 2616057, 09810393, 8448929, 9841662, 5149674, 3120356, 3497631, 8124916, 61697890, 32726018, 364560465, 67432528, 81196644 ####[facility] [address] [place] [address] Lymphocytes/100 WBC (Bld) 20 % Normal 14-50 [facility] Comment on above: Order Comment: Order Added by Discern Expert. Performed By: #### 2 881045, 06625397, 4374420, 3615761, 0670951, 1851985, 16010550, 9783625, 6768336, 3924110, 1246191, 3215600, 6053319, 72591526, 22659565, 561513334, 69085407, 61035349 ####[facility] [address] [place] [address] Monocytes/100 WBC (Bld) 8 % Normal 4-14 [facility] Comment on above: Order Comment: Order Added by Discern Expert. Performed By: #### 2 288894, 49319407, 7688355, 9954230, 6515838, 6557509, 16146440, 9455675, 7669608, 2340058, 5600074, 9786328, 0265968, 59037817, 37298995, 774710725, 68917699, 82634654 ####[facility] [address] [place] [address] Morphology Heri (Bld) [Interp] Normal Normal [facility] Comment on above: Order Comment: Order Added by Discern Expert. Performed By: #### 2 693444, 54824639, 9346617, 3146043, 1731297, 0514997, 11006823, 3804073, 0824930, 1726268, 4503318, 2348927, 9360915, 50200008, 39085428, 392641039, 44839041, 77209828 ####[facility] [address] [place] [address] Segmented neutrophils/100 WBC (Bld) 64 % Normal 36-75 [facility] Comment on above: Order Comment: Order Added by Discern Expert. Performed By: #### 2 576702, 46562294, 7732422, 0531547, 7321055, 2473317, 42794305, 3894094, 6158265, 4719184, 1493346, 9169132, 2516229, 15771075, 22669000, 988841481, 72795537, 95994876 ####[facility] [address] [place] [address] Variant lymphocytes LM Ql (Bld) 2 % High <=0 [facility] Comment on above: Order Comment: Order Added by Discern Expert. Performed By: #### 2 630126, 53130112, 7536691, 6948678, 5777395, 2855418, 14024982, 9125802, 9284437, 0293380, 4443015, 2797997, 1752993, 18844536, 99857479, 097627962, 30908679, 63104795 ####[facility] [address] [place] [address] Oncology Noteon 09-30-2023 Oncology Note Normal [facility] Comment on above: Result Comment: Elec tronically Signed By: Jaylene WALKER, Savanna Robles\.br\Date and Time Signed: 09/30/23 16:47 EST Oncology Progress Noteon Oncology Progress Note Normal [facility] Outside Progress Noteon 09-05 Outside Progress Note [id number]#1.00TI FF Normal [facility] Retic Counton 09-30-2023 Reticulocytes/100 RBC (Bld) 0.7 % Normal 0.5-1.5 [facility] Comment on above: Result Comment: This Reticulocyte Count Has Been Corrected For Anemia Performed By: #### 2 450493, 87981047, 0756498, 8136101, 0548445, 6521557, 50795092, 9579041, 3137662, 3748225, 1320264, 6259610, 1573566, 12411356, 29084518, 748535747, 45943278, 59955920 ####[facility] [address] [place] [address] Transferrinon 09-30-2023 Transferrin [Mass/Vol] 176 mg/dL Low 200-370 [facility] Comment on above: Performed By: #### 2 948788, 66008969, 4685797, 2549308, 3439064, 7271978, 06041746, 7285167, 5745913, 4779426, 8407193, 6608020, 3992493, 79963705, 15498072, 554003624, 34301861, 19624633 ####[facility] [address] [place] [address] Vit B12on 09-30-2023 Cobalamin (Vitamin B12) [Mass/Vol] 526 pg/mL Normal 50-1500 [facility] Comment on above: Performed By: #### 2 550371, 69203110, 3159212, 4139745, 8939599, 5552037, 92904958, 9290622, 3965678, 8992931, 5214175, 9259122, 5930844, 68963045, 72769700, 802907209, 51656990, 58343505 ####[facility] [address] [place] [address] eGFRon 09-30-2023 GFR/1.73 sq M.predicted among non-blacks MDRD (S/P/Bld) [Vol rate/Area] 37 mL/min/1.73 m2 Low >=59 [facility] Comment on above: Order Comment: Order added by Discern Expert. 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 Kidney failure is indicated at less than 15 mL/min/1.73m2. Performed By: #### 2 667947, 46650766, 2612544, 8651037, 6075921, 4724664, 68814123, 8335393, 0818795, 9011328, 2168959, 4235436, 8332989, 41061193, 91993527, 904233847, 96746162, 23692029 ####[facility] [address] [place] [address] Consent for Treatmenton Consent for Treatment [id number]#1.00TIF F Normal [facility] US Renalon 09-06-2023 US Renal Normal [facility] Physician Orderon 08-21-2023 Physician Order [id number]#1.00TIF F Normal [facility] Physician Order [id number]#1.00TIF F [facility] Glucose Test strip manual (B ld) [Mass/Vol]on 08-20-2023 Glucose [Mass/Vol] 168 mg/dL High 74-99 [facility] Comment on above: Performed By: #### 2 341-6 #### JEF Burton ([id number]) [facility] ([facility]) [address] [place] [address] Glucose [Mass/Vol] 166 mg/dL High 74-99 [facility] Comment on above: Performed By: #### 2 341-6 #### JEF Burton ([id number]) [facility] ([facility]) [address] [place] [address] Ophthalmic Eye Examon 2022 Ophthalmic Eye Exam DOCUMENT REVIEWED BY : Miki Bauer DOCUMENT SIGNED ELECTRONICALLY BY Miki Bauer ON 07/22/2023 10:33:[address], [address] THIS DOCUMENT WAS CREATED ON: 07/22/2023 10:33:34 AM BY: Miki Man performed [id number] Exam Date: Saturday, July 22, 2023 PATIENT NAME: MIKAYLA PAPPAS DATE: 1960 AGE: 62 GENDER: Male RACE: PRIMARY CARE PHYSICIAN: Lauren Chowdary History Chief Complaint/Reason For Visit: 62yom new pt ref by [facility] due to retina hem OS. pt states unable to see out of left eye. HISTORY OF PRESENT ILLNESS: HPI was performed by Dr. Miki Bauer and scribed by Jc Bauer PAST MEDICAL HISTORY: OCULAR: Retina hem. PROCEDURES : none. SURGERIES: History of Lower extremity amputation above knee; History of Ablation SOCIAL HISTORY: ALCOHOL: No alcohol use STREET DRUGS: No illicit drug use DIET: No caffeine use FAMILY HISTORY: MOTHER: Family history of Hypertension, benign Father,Sibling:Family history of diabetes mellitus CURRENT MEDICATIONS: Colace 100 MG Oral Capsule - Capsule, TAKE 1 CAPSULE TWICE DAILY.[Reported] , Evaluate Cyanocobalamin TABS (No longer available) - Each, Tablet, TAKE 1 TABLET DAILY DIRECTED.[Reported] , Evaluate Cymbalta 30 MG Oral Capsule Delayed Release Particles - Capsule, Capsule Delayed Release Particles, TAKE 1 CAPSULE Daily[Reported] , Evaluate Cymbalta 60 MG Oral Capsule Delayed Release Particles - Capsule, Capsule Delayed Release Particles, TAKE 1 CAPSULE Daily[Reported] , Evaluate Ergocalciferol 1.25 MG (23871 UT) Oral Capsule - Capsule, TAKE 1 CAPSULE Daily[Reported] , Evaluate Gabapentin 300 MG TABS (No longer available) - Each, Tablet, TAKE 1 TABLET Bedtime[Reported] , Evaluate Isosorbide Mononitrate ER 30 MG Oral Tablet Extended Release 24 Hour - #90 Tablet, Tablet Extended Release 24 Hour, TAKE 1 TABLET DAILY.[Reported] , Evaluate: 19-Apr-2024 Lantus 100 UNIT/ML Subcutaneous Solution - 10 ML Vial, Solution, USE DIRECTED.[Reported] , Evaluate Lidocaine HCl 4 % PTCH (No longer available) - Each, Patch, USE DIRECTED[Reported] , Evaluate Lipitor 80 MG Oral Tablet - Tablet, TAKE 1 TABLET AT BEDTIME.[Reported] , Evaluate Lisinopril 20 MG Oral Tablet - #90 Tablet, TAKE 1 TABLET DAILY.[Reported] , Evaluate: 19-Apr-2024 metFORMIN HCl - 500 MG Oral Tablet - Tablet, TAKE 1 TABLET TWICE DAILY WITH MEALS.[Reported] , Evaluate Metoprolol Succinate ER 100 MG Oral Tablet Extended Release 24 Hour - #90 Tablet, Tablet Extended Release 24 Hour, Take 1 tablet daily[Reported] , Evaluate: 19-Apr-2024 Milk of Magnesia 400 MG/5ML Oral Suspension - Milliliter, Suspension, USE DIRECTED.[Reported] , Evaluate NovoLOG 100 UNIT/ML Injection Solution - 10 ML Vial, Solution, USE DIRECTED[Reported] , Evaluate Omeprazole 20 MG Oral Capsule Delayed Release - #90 Capsule, Capsule Delayed Release, TAKE 1 CAPSULE Daily[Reported] , Evaluate: 19-Apr-2024 Promethazine HCl - 25 MG Oral Tablet - Tablet, TAKE 1 TABLET EVERY 6 TO 8 HOURS NEEDED NAUSEA.[Reported] , Evaluate ALLERGIES: Depakote, Dilantin REVIEW OF SYSTEMS: GENERAL:HTN DM 2 18 yrs CARDIOVASCULAR:HTN ENDOCRINE:Diab All other Review Of Systems negative Exam ORIENTATION, MOOD AND AFFECT: Alert AND oriented x3 RIGHT EYE LEFT EYE UNCORRECTED VA CF@1' CF@1' PRESSURE METHOD: Tonopen Tonopen PRESSURES: 16 16 DATE-TIME: 07/22/2023 9:53:59 AM 07/22/2023 9:53:59 AM 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 [email or web address] CONFRONTATION VF Full to count fingers Full to count fingers EXTERNAL EYE EXAM: LID: Good Position Good Position PUPIL: PERRL/no APD PERRL/no APD ADNEXA: Normal Normal MUSCLE BALANCE: Ortho OCULAR MOTILITY: Full ANTERIOR SEGMENT EXAM: TEARFILM: Good Good CONJUNCTIVA: White and quiet White and quiet CORNEA: Clear Clear ANTERIOR CHAMBER: Deep and quiet Deep and quiet IRIS: Round and reactive Round and reactive LENS: Clear Clear ANTERIOR VITREOUS: Clear Clear FUNDUS EXAM: DILATION and NUMBING DROPS: Derick 2.5% AND Mydriacyl 1% OU 07/22/2023 09:51:42 AM CUP TO DISC: .3 .3 OPTIC DISC: Mackay and sharp Mackay and sharp VITREOUS: Clear Clear MACULA: edema vit hemorrahge no view haze 4+ VESSELS: Normal PERIPHERY: PRP dot blot edema 360 Impression 1 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 Infections, discomfort form sutures (more content not included)... Normal [facility] Insurance Correspondence Off iceon 06-11-2023 Insurance Correspondence Office [id number]#1.00CD :127 [facility] Coding Summary.on 06-04-2023 Coding Summary. [id number]#1.00CD :127 [facility] Insurance Correspondenceon 0 05-15-2023 Insurance Correspondence [id number]#1.00CD :127 [facility] Insurance Correspondence [id number]#1.00CD :127 [facility] Coding Queryon 05-12-[address] [facility] Blood Bank Slipon 05-09-2023 Blood Bank Slip [id number]#1.00C D:127 [facility] Consent for Blood Transfusio non 05-09-2023 Consent for Blood Transfusion [id number]#1.00C D:127 [facility] Discharge Instructionson Discharge Instructions [id number]#1.00C D:127 [facility] Message from Medicareon Message from Medicare [id number]#1.00C D:127 Normal [facility] Message from Medicare [id number]#1.00C D:127 Normal [facility] Progress Note-Physicianon Progress Note-Physician Normal F [facility] Comment on above: Result Comment: Elec tronically Signed By: MD Lockhart Ahmad F\.br\Date and Time Signed: 05/09/23 18:42 EDT Progress Note-Physician Normal F [facility] Comment on above: Result Comment: Elec tronically Signed By: MD Lockhart Ahmad F\.br\Date and Time Signed: 05/09/23 18:39 EDT Transfer Documentson 023 Transfer Documents [id number]#1.00C D:127 Normal [facility] Auto Diffon 05-08-2023 Basophils/100 WBC (Bld) 0.4 % Normal 0.0-2.0 [facility] Comment on above: Order Comment: Order Added by Discern Expert. Performed By: #### 2 554530, 3413948, 6313649, 8392182, 4932533, 81327197 ####[facility] [address] [place] [address] Basophils/Leukocytes Auto (Bld) [Pure # fraction] 0.0 E9/L Normal 0.0-0.2 [facility] Comment on above: Order Comment: Order Added by Discern Expert. Performed By: #### 2 761070, 8227097, 5421347, 5115780, 6100912, 74163082 ####[facility] [address] [place] [address] Eosinophils/100 WBC (Bld) 6.9 % Normal 0.0-8.0 [facility] Comment on above: Order Comment: Order Added by Discern Expert. Performed By: #### 2 363421, 0125851, 1263936, 7272033, 6549428, 85820780 ####[address] [address] Eosinophils/Leukocytes Auto (Bld) [Pure # fraction] 0.5 E9/L Normal 0.0-0.5 [facility] Comment on above: Order Comment: Order Added by Discern Expert. Performed By: #### 2 543360, 2863495, 7690088, 4086354, 6096804, 57043282 ####[address] [address] Lymphocytes/100 WBC (Bld) 14.8 % Normal 14.0-50.0 [facility] Comment on above: Order Comment: Order Added by Discern Expert. Performed By: #### 2 086122, 3072717, 8706306, 6095559, 1656977, 40852636 ####[address] [address] Lymphocytes/Leukocytes Auto (Bld) [Pure # fraction] 1.2 E9/L Normal 1.0-4.0 [facility] Comment on above: Order Comment: Order Added by Discern Expert. Performed By: #### 2 641707, 4160137, 9362920, 3186549, 2177558, 63721422 ####[address] [address] Monocytes/100 WBC (Bld) 12.2 % Normal 4.0-14.0 [facility] Comment on above: Order Comment: Order Added by Discern Expert. Performed By: #### 2 622939, 2873440, 5596436, 9923335, 8931626, 61361475 ####[address] [place] [address] Monocytes/Leukocytes Auto (Bld) [Pure # fraction] 1.0 E9/L Normal 0.2-1.0 [facility] Comment on above: Order Comment: Order Added by Discern Expert. Performed By: #### 2 430376, 6865092, 0943660, 7554389, 3148820, 77755610 ####[address] [place] [address] Neutrophils/100 WBC (Bld) 65.7 % Normal 36.0-75.0 [facility] Comment on above: Order Comment: Order Added by Discern Expert. Performed By: #### 2 433014, 5739561, 6312166, 1018715, 3223902, 26042895 ####[address] [place] [address] Neutrophils/Leukocytes Auto (Bld) [Pure # fraction] 5.2 E9/L Normal 2.0-7.5 [facility] Comment on above: Order Comment: Order Added by Discern Expert. Performed By: #### 2 686260, 8512486, 3000887, 7056750, 8951837, 52244735 ####[address] [address] BUNon 05-08-2023 Urea nitrogen [Mass/Vol] 26 mg/dL High 5-21 [facility] Comment on above: Performed By: #### 2 468460, 8697379, 0584290, 8666202, 6808600, 25393316 ####[address] [place] [address] CBC w/ Auto Diffon Erythrocyte distribution width (RBC) [Ratio] 14.1 % Normal 10.9-14.2 [facility] Comment on above: Performed By: #### 2 427818, 3138985, 9343794, 8502808, 7151327, 46836865 ####[address] [place] [address] Hematocrit (Bld) [Volume fraction] 25.7 % Low 37.7-49.0 [facility] Comment on above: Performed By: #### 2 322386, 9020652, 3894422, 8791064, 9823126, 92096060 ####[address] [place] [address] Hemoglobin (Bld) [Mass/Vol] 8.7 g/dL Low 13.5-17.5 [facility] Comment on above: Performed By: #### 2 232945, 3856429, 2075130, 7152090, 9202636, 82620689 ####[facility] [address] [place] [address] MCH (RBC) [Entitic mass] 30.6 pg Normal 27.0-34.0 [facility] Comment on above: Performed By: #### 2 663044, 1256266, 1670332, 9969722, 5352304, 53948976 ####[facility] [address] [place] [address] MCHC (RBC) [Mass/Vol] 33.8 g/dL Normal 31.4-36.0 [facility] Comment on above: Performed By: #### 2 326344, 1395120, 3536427, 9865119, 6290513, 39926763 ####[address] [address] MCV (RBC) [Entitic vol] 90.5 fL Normal 80.0-100.0 F [facility] Comment on above: Performed By: #### 2 063919, 1367794, 4709969, 1562104, 3238251, 96918290 ####[address] [address] Platelet mean volume (Bld) [Entitic vol] 7.0 fL Normal 6.4-10.8 [facility] Comment on above: Performed By: #### 2 841212, 0789102, 9023648, 4053535, 1440931, 58077836 ####[facility] [address] [place] [address] Platelets (Bld) [#/Vol] 227.0 E9/L Normal 150.0-500.0 [facility] Comment on above: Performed By: #### 2 908154, 5131454, 8823931, 5874132, 0968828, 95446199 ####[address] [address] RBC (Bld) [#/Vol] 2.8 E12/L Low 4.3-5.9 [facility] Comment on above: Performed By: #### 2 071661, 0331164, 1744013, 4814892, 5821355, 59122658 ####[facility] [address] [place] [address] WBC corrected for nucl RBC Auto (Bld) [#/Vol] 7.8 E9/L Normal 4.0-11.0 [facility] Comment on above: Performed By: #### 2 394676, 2976764, 1566298, 3541325, 8326911, 89027464 ####[facility] [address] [place] [address] Capillary Glucose POCon Glucose [Mass/Vol] 245 mg/dL High 55-99 [facility] Comment on above: Result Comment: Eleno king RN/ Performed By: #### 2 11429370 ####[facility] [address] [place] [address] Glucose [Mass/Vol] 163 mg/dL High 55-99 [facility] Comment on above: Result Comment: Eleno ALEXIS Performed By: #### 2 21625951 ####[facility] [address] [place] [address] Creatinineon 05-08-2023 Creatinine [Mass/Vol] 1.7 mg/dL High 0.5-1.3 [facility] Comment on above: Performed By: #### 2 325019, 8153754, 1029271, 0510021, 2549075, 50468606 ####[facility] [address] [place] [address] Discharge Note-Nursingon Discharge Note-Nursing Normal [facility] Inpatient Clinical Summaryon 05-08-2023 Inpatient Clinical Summary Normal [facility] Inpatient Patient Summaryon 05-08-2023 Inpatient Patient Summary Normal [facility] Insurance Correspondence Off iceon 05-08-2023 Insurance Correspondence Office [id number]#1.00CD: 127 Normal [facility] Interdisciplinary Note - Reza e Manageron 05-08-2023 Interdisciplinary Note - Parking Lot Manager Normal [facility] Comment on above: Result Comment: Elec tronically Signed By: Pat Reich\.br\Date and Time Signed: 05/08/23 13:38 EDT IntraOperative Documentson 0 05-08-2023 IntraOperative Documents [id number]#1.00C D:127 Normal [facility] Lyteson 05-08-2023 Anion gap [Moles/Vol] 12 mmol/L Normal 6-16 [facility] Comment on above: Performed By: #### 2 304081, 2555887, 9117735, 9806785, 2819647, 66527071 ####[facility] [address] [place] [address] Chloride [Moles/Vol] 105 mmol/L Normal 101-111 [facility] Comment on above: Performed By: #### 2 983219, 2056094, 3723618, 8366509, 5246799, 88963241 ####[facility] [address] [place] [address] CO2 [Moles/Vol] 25 mmol/L Normal 21-31 [facility] Comment on above: Performed By: #### 2 447325, 1014339, 4132152, 9701018, 4938832, 50366212 ####[facility] [address] [address] Potassium [Moles/Vol] 4.6 mmol/L Normal 3.5-5.3 [facility] Comment on above: Performed By: #### 2 [id number], [id number], [id number], [id number], [id number], [id number] ####[facility] [id number] [address] Sodium [Moles/Vol] 137 mmol/L Normal 135-145 [facility] Comment on above: Performed By: #### 2 [id number], [id number], [id number], [id number], [id number], [id number] ####[facility] [id number] [place] [address] Progress Note-Physicianon Progress Note-Physician Normal F [facility] Comment on above: Result Comment: Elec tronically Signed By: KEYUR GAMEZ, William\.br\Date and Time Signed: 05/08/23 11:41 EDT eGFRon 05-08-2023 GFR/1.73 sq M.predicted among non-blacks MDRD (S/P/Bld) [Vol rate/Area] 45 mL/min/1.73 m2 Low >=59 [facility] Comment on above: Order Comment: Order added by Discern Expert. 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 Kidney failure is indicated at less than 15 mL/min/1.73m2. Performed By: #### 2 896593, 1275899, 4886044, 6023677, 0977478, 68141077 ####[facility] [address] [place] [address] Auto Diffon 05-07-2023 Basophils/100 WBC (Bld) 0.3 % Normal 0.0-2.0 [facility] Comment on above: Order Comment: Order Added by Discern Expert. Performed By: #### 2 451750, 9101081, 7666535, 6123362, 9260490, 70368222 ####[facility] [address] [place] [address] Basophils/Leukocytes Auto (Bld) [Pure # fraction] 0.0 E9/L Normal 0.0-0.2 [facility] Comment on above: Order Comment: Order Added by Discern Expert. Performed By: #### 2 040148, 8633269, 5760896, 8624458, 8882051, 01805920 ####[facility] [address] [place] [address] Eosinophils/100 WBC (Bld) 4.3 % Normal 0.0-8.0 [facility] Comment on above: Order Comment: Order Added by Discern Expert. Performed By: #### 2 131448, 4579247, 3220313, 2181498, 5926215, 57312789 ####[facility] [address] [place] [address] Eosinophils/Leukocytes Auto (Bld) [Pure # fraction] 0.4 E9/L Normal 0.0-0.5 [facility] Comment on above: Order Comment: Order Added by Discern Expert. Performed By: #### 2 635581, 7552400, 0971641, 8919862, 7870830, 85369506 ####[facility] [address] [place] [address] Lymphocytes/100 WBC (Bld) 14.7 % Normal 14.0-50.0 [facility] Comment on above: Order Comment: Order Added by Jimenez Expert. Performed By: #### 2 120828, 0281886, 7931434, 4966873, 5059687, 55439024 ####[facility] [address] [place] [address] Lymphocytes/Leukocytes Auto (Bld) [Pure # fraction] 1.4 E9/L Normal 1.0-4.0 [facility] Comment on above: Order Comment: Order Added by Jimenez Expert. Performed By: #### 2 855816, 4691639, 0190477, 8604475, 0315987, 02688962 ####[facility] [address] [place] [address] Monocytes/100 WBC (Bld) 9.6 % Normal 4.0-14.0 [facility] Comment on above: Order Comment: Order Added by Jimenez Expert. Performed By: #### 2 549072, 7666980, 1106941, 4956913, 6884889, 85773371 ####[facility] [address] [place] [address] Monocytes/Leukocytes Auto (Bld) [Pure # fraction] 0.9 E9/L Normal 0.2-1.0 [facility] Comment on above: Order Comment: Order Added by Discern Expert. Performed By: #### 2 962407, 0833644, 8396672, 5649929, 2014449, 19557799 ####[address] [place] [address] Neutrophils/100 WBC (Bld) 71.1 % Normal 36.0-75.0 [facility] Comment on above: Order Comment: Order Added by Discern Expert. Performed By: #### 2 622279, 6407516, 7178827, 6761533, 8355597, 94392529 ####[facility] [address] [place] [address] Neutrophils/Leukocytes Auto (Bld) [Pure # fraction] 6.7 E9/L Normal 2.0-7.5 [facility] Comment on above: Order Comment: Order Added by Discern Expert. Performed By: #### 2 634171, 9884431, 0923113, 8787883, 1041243, 32006090 ####[address] [address] BUNon 05-07-2023 Urea nitrogen [Mass/Vol] 26 mg/dL High 5-21 [facility] Comment on above: Performed By: #### 2 968294, 4665832, 2623880, 5685482, 1153980, 65771987 ####[address] [place] [address] CBC w/ Auto Diffon Erythrocyte distribution width (RBC) [Ratio] 14.2 % Normal 10.9-14.2 [facility] Comment on above: Performed By: #### 2 165834, 6326406, 5282636, 1093896, 2814282, 49601156 ####[address] [place] [address] Hematocrit (Bld) [Volume fraction] 26.2 % Low 37.7-49.0 [facility] Comment on above: Performed By: #### 2 392066, 4198226, 8483955, 1527828, 3377744, 73061669 ####[facility] [address] [place] [address] Hemoglobin (Bld) [Mass/Vol] 8.8 g/dL Low 13.5-17.5 [facility] Comment on above: Performed By: #### 2 575388, 9252302, 8879585, 3368676, 7713349, 11006033 ####[address] [address] MCH (RBC) [Entitic mass] 30.7 pg Normal 27.0-34.0 [facility] Comment on above: Performed By: #### 2 793390, 2733948, 9134331, 8780095, 9391089, 42160515 ####[address] [address] MCHC (RBC) [Mass/Vol] 33.7 g/dL Normal 31.4-36.0 [facility] Comment on above: Performed By: #### 2 440322, 3485747, 1606822, 5630757, 6475708, 42132630 ####[address] [address] MCV (RBC) [Entitic vol] 90.9 fL Normal 80.0-100.0 [facility] Comment on above: Performed By: #### 2 568912, 6767189, 5939150, 4236049, 0727148, 29850760 ####[address] [address] Platelet mean volume (Bld) [Entitic vol] 7.0 fL Normal 6.4-10.8 [facility] Comment on above: Performed By: #### 2 821433, 4376717, 7075075, 7585112, 3269739, 59775999 ####[facility] [address] [place] [address] Platelets (Bld) [#/Vol] 213.0 E9/L Normal 150.0-500.0 [facility] Comment on above: Performed By: #### 2 905407, 2971919, 1095004, 9948012, 8193989, 36505369 ####[facility] [address] [place] [address] RBC (Bld) [#/Vol] 2.9 E12/L Low 4.3-5.9 [facility] Comment on above: Performed By: #### 2 848646, 2671173, 1133633, 5364557, 3879188, 64109732 ####[address] [address] WBC corrected for nucl RBC Auto (Bld) [#/Vol] 9.4 E9/L Normal 4.0-11.0 [facility] Comment on above: Performed By: #### 2 552297, 5231652, 3463200, 1063418, 0658544, 05861665 ####[address] [address] Capillary Glucose POCon 07-0 Glucose [Mass/Vol] 318 mg/dL High 55-99 [facility] Comment on above: Result Comment: Eleno ALEXIS Performed By: #### 2 01469450 ####[address] [address] Glucose [Mass/Vol] 171 mg/dL High 55-99 [facility] Comment on above: Result Comment: Eleno ALEXIS Performed By: #### 2 94581228 ####[address] [address] Glucose [Mass/Vol] 198 mg/dL High 55-99 [facility] Comment on above: Result Comment: Dominique debbie Meter Performed By: #### 2 55484432 ####[address] [place] [address] Glucose [Mass/Vol] 227 mg/dL High 55-99 [facility] Comment on above: Result Comment: Eleno ALEXIS Performed By: #### 2 84520279 ####[address] [place] [address] Coding Queryon 05-07-2023 Coding Query Normal [facility] Creatinineon 05-07-2023 Creatinine [Mass/Vol] 1.9 mg/dL High 0.5-1.3 [facility] Comment on above: Performed By: #### 2 731359, 3747476, 4274245, 2340585, 7762205, 50763599 ####[facility] [address] [place] [address] Interdisciplinary Note - Reza e Manageron 05-07-2023 Interdisciplinary Note - Parking Lot ManagerManager Medicare Rights form discussed with sister Scott. Pt is in bed sleeping. Normal [facility] Comment on above: Result Comment: Elec tronically Signed By: Monet Vasques\.mirela\Date and Time Signed: 05/07/23 11:50 EDT Lyteson 05-07-2023 Anion gap [Moles/Vol] 10 mmol/L Normal 6-16 [facility] Comment on above: Performed By: #### 2 010463, 8349046, 8716297, 3783695, 3382371, 26347295 ####[facility] [address] [place] [address] Chloride [Moles/Vol] 107 mmol/L Normal 101-111 [facility] Comment on above: Performed By: #### 2 733380, 5084433, 5990427, 8190611, 5444175, 13315821 ####[facility] [address] [place] [address] CO2 [Moles/Vol] 22 mmol/L Normal 21-31 [facility] Comment on above: Performed By: #### 2 071592, 1522575, 8108245, 1584535, 7676312, 50076982 ####[facility] [address] [place] [address] Potassium [Moles/Vol] 5.0 mmol/L Normal 3.5-5.3 [facility] Comment on above: Performed By: #### 2 320743, 8462020, 2170807, 1500421, 4174864, 27320104 ####[facility] [address] [place] [address] Sodium [Moles/Vol] 134 mmol/L Low 135-145 [facility] Comment on above: Performed By: #### 2 572998, 7854173, 9081620, 7122955, 1695755, 50699717 ####[facility] [address] [place] [address] Progress Note-Physicianon Progress Note-Physician Normal [facility] Comment on above: Result Comment: Elec tronically Signed By: Rafi Blackman DO\.br\Date and Time Signed: 05/07/23 13:46 EDT Progress Note-Physician Normal [facility] Comment on above: Result Comment: Elec tronically Signed By: William BAER MD\.br\Date and Time Signed: 05/07/23 09:18 EDT eGFRon 05-07-2023 GFR/1.73 sq M.predicted among non-blacks MDRD (S/P/Bld) [Vol rate/Area] 40 mL/min/1.73 m2 Low >=59 [facility] Comment on above: Order Comment: Order added by Discern Expert. 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 Kidney failure is indicated at less than 15 mL/min/1.73m2. Performed By: #### 2 926343, 0260070, 0370304, 8795897, 0964485, 01308714 ####[facility] [address] [place] [address] BMPon 05-06-2023 Anion gap [Moles/Vol] 7 mmol/L Normal 6-16 [facility] Comment on above: Performed By: #### 2 798575, 6556999, 87057788 ####[facility] [address] [place] [address] Calcium [Mass/Vol] 8.0 mg/dL Low 8.9-11.1 [facility] Comment on above: Performed By: #### 2 378996, 3550556, 71845086 ####[facility] [address] [place] [address] Chloride [Moles/Vol] 109 mmol/L Normal 101-111 [facility] Comment on above: Performed By: #### 2 099039, 4414799, 69535124 ####[facility] [address] [place] [address] CO2 [Moles/Vol] 22 mmol/L Normal 21-31 [facility] Comment on above: Performed By: #### 2 041710, 8921161, 05189248 ####[facility] [address] [place] [address] Creatinine [Mass/Vol] 1.7 mg/dL High 0.5-1.3 [facility] Comment on above: Performed By: #### 2 219128, 7854171, 07482292 ####[facility] [address] [place] [address] Glucose [Mass/Vol] 199 mg/dL Normal 55-199 [facility] Comment on above: Result Comment: If t his glucose result represents a fasting glucose, interpretation should refer to the following reference range: 55-99 mg/dL Performed By: #### 2 029638, 8558508, 01425514 ####[facility] [address] [place] [address] Potassium [Moles/Vol] 5.3 mmol/L Normal 3.5-5.3 [facility] Comment on above: Performed By: #### 2 800024, 1157067, 11204489 ####[facility] [address] [place] [address] Sodium [Moles/Vol] 133 mmol/L Low 135-145 [facility] Comment on above: Performed By: #### 2 129959, 6044553, 13914249 ####[facility] [address] [place] [address] Urea nitrogen [Mass/Vol] 27 mg/dL High 5-21 [facility] Comment on above: Performed By: #### 2 620466, 1357620, 49256420 ####[facility] [address] [place] [address] Urea nitrogen/Creatinine [Mass ratio] 16 No Units Normal 10-20 [facility] Comment on above: Performed By: #### 2 442838, 3156839, 94583003 ####[facility] [address] [place] [address] CBC w/Indiceson 05-06-2023 Erythrocyte distribution width (RBC) [Ratio] 14.5 % High 10.9-14.2 [facility] Comment on above: Performed By: #### 2 904116, 1185071, 42166994 ####[facility] [address] [place] [address] Hematocrit (Bld) [Volume fraction] 27.7 % Low 37.7-49.0 [facility] Comment on above: Performed By: #### 2 586823, 5405136, 49589971 ####[facility] [address] [place] [address] Hemoglobin (Bld) [Mass/Vol] 9.5 g/dL Low 13.5-17.5 [facility] Comment on above: Performed By: #### 2 426147, 7617255, 85981468 ####[facility] [address] [place] [address] MCH (RBC) [Entitic mass] 30.8 pg Normal 27.0-34.0 [facility] Comment on above: Performed By: #### 2 560060, 8042958, 93746695 ####[facility] [address] [place] [address] MCHC (RBC) [Mass/Vol] 34.1 g/dL Normal 31.4-36.0 [facility] Comment on above: Performed By: #### 2 975128, 1992820, 52717214 ####[facility] [address] [place] [address] MCV (RBC) [Entitic vol] 90.3 fL Normal 80.0-100.0 [facility] Comment on above: Performed By: #### 2 184028, 5983950, 97741828 ####[facility] [address] [place] [address] Platelet mean volume (Bld) [Entitic vol] 7.3 fL Normal 6.4-10.8 [facility] Comment on above: Performed By: #### 2 589016, 3580684, 12729327 ####[address] [address] Platelets (Bld) [#/Vol] 225.0 E9/L Normal 150.0-500.0 [facility] Comment on above: Performed By: #### 2 084947, 7872455, 40107696 ####[address] [address] RBC (Bld) [#/Vol] 3.1 E12/L Low 4.3-5.9 [facility] Comment on above: Performed By: #### 2 164982, 5214352, 64524394 ####[address] [address] WBC corrected for nucl RBC Auto (Bld) [#/Vol] 11.6 E9/L High 4.0-11.0 [facility] Comment on above: Performed By: #### 2 960762, 1274841, 97777635 ####[address] [address] Capillary Glucose POCon 07-0 -2022 Glucose [Mass/Vol] 291 mg/dL High 55-99 [facility] Comment on above: Result Comment: Eleno ALEXIS Performed By: #### 2 15053271 ####[facility] [address] [place] [address] Glucose [Mass/Vol] 278 mg/dL High 55-99 [facility] Comment on above: Result Comment: Eleno king RN/ Performed By: #### 2 73996065 ####[facility] [address] [place] [address] Glucose [Mass/Vol] 208 mg/dL High 55-99 [facility] Comment on above: Result Comment: Eleno king RN/ Performed By: #### 2 15793595 ####[facility] [address] [place] [address] Glucose [Mass/Vol] 195 mg/dL High 55-99 [facility] Comment on above: Result Comment: Dominique debbie Meter Performed By: #### 2 78505409 ####[facility] [address] [place] [address] Glucose [Mass/Vol] 230 mg/dL High 55-99 [facility] Comment on above: Result Comment: Dominique debbie Meter Performed By: #### 2 27514789 ####[facility] [address] [place] [address] Consent for Anesthesiaon Consent for Anesthesia [id number]#1.00CD: 127 Normal [facility] Consent for Procedure/Surger yon 05-06-2023 Consent for Procedure/Surgery [id number]#1.00CD: 127 Normal [facility] Consultation Noteon 05-06-20 23 Consultation Note Normal [facility] Comment on above: Result Comment: Elec tronically Signed By: Rafi Blackman DO\.br\Date and Time Signed: 05/06/23 09:39 EDT Ferritinon 05-06-2023 Ferritin [Mass/Vol] 1010 ng/mL High 24-336 [facility] Comment on above: Result Comment: NORM ALS MEN <30 YRS 16-132 ng/mL MEN >30 YRS 8-338 ng/mL WOMEN (PREMEN) 6-104 ng/mL WOMEN (POSTMEN) 12-210 ng/mL Performed By: #### 2 019016, 3120902, 1571149, 1060259, 1756882, 01363900, 4528950, 0664236, 2658204, 0150939, 45906745, 0121673 ####[facility] [address] [place] [address] Folateon 05-06-2023 Folate [Mass/Vol] 8.3 ng/mL Normal >=6.7 [facility] Comment on above: Performed By: #### 2 365350, 7490158, 1520614, 2547268, 4263904, 39869737, 9120672, 6701494, 1612734, 4121118, 40629494, 2569726 ####[facility] [address] [place] [address] Insurance Correspondence Off iceon 05-06-2023 Insurance Correspondence Office [id number]#1.00CD: 127 Normal [facility] Insurance Correspondence Office [id number]#1.00CD :127 Normal [facility] Interdisciplinary Note - Reza e Manageron 05-06-2023 Interdisciplinary Note - Parking Lot Manager [facility] Comment on above: Result Comment: Elec tronically Signed By: Pat Reich\.br\Date and Time Signed: 05/06/23 15:49 EDT Interdisciplinary Note - Hilario singon 05-06-2023 Interdisciplinary Note - Nursing [facility] Interdisciplinary Note - Everett n 05-06-2023 Interdisciplinary Note - OT [facility] Interdisciplinary Note - PTo n 05-06-2023 Interdisciplinary Note - PT [facility] Interdisciplinary Note - Soc ial Workeron 05-06-2023 Interdisciplinary Note - Hosiery Repairer System generated consult for advance directives received. Patient just completed advance directives at [facility] [place] on 04/26/23. These documents reflect his current wishes. SW will remain available. Normal [facility] IntraOperative Documentson 0 05-06-2023 IntraOperative Documents [id number]#1.00CD: 127 Normal [facility] Main OR Intraoperative Recor don 05-06-2023 Main OR Intraoperative Record Normal [facility] Operative Reporton Operative Report Normal [facility] Comment on above: Result Comment: Elec tronically Signed By: Rafi Blackman DO\.br\Date and Time Signed: 05/06/23 09:39 EDT Progress Note-Physicianon Progress Note-Physician Normal [facility] Comment on above: Result Comment: Elec tronically Signed By: KEYUR GAMEZ, William\.br\Date and Time Signed: 05/06/23 13:22 EDT Progress Note-Physician Normal F [facility] Comment on above: Result Comment: Elec tronically Signed By: Rafi Blackman DO\.br\Date and Time Signed: 05/06/23 07:20 EDT Vit B12on 05-06-2023 Cobalamin (Vitamin B12) [Mass/Vol] 821 pg/mL Normal 50-1500 [facility] Comment on above: Performed By: #### 2 271866, 2534237, 3416486, 6170571, 8992903, 39544927, 5820701, 1528115, 9565893, 8377761, 71893237, 0608288 ####[facility] [address] [place] [address] eGFRon 05-06-2023 GFR/1.73 sq M.predicted among non-blacks MDRD (S/P/Bld) [Vol rate/Area] 45 mL/min/1.73 m2 Low >=59 [facility] Comment on above: Order Comment: Order added by Discern Expert. 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 Kidney failure is indicated at less than 15 mL/min/1.73m2. Performed By: #### 2 364738, 5931476, 31951841 ####[facility] [address] [place] [address] ABO/Rhon 05-05-2023 ABO/Rh Positive Invalid Interpretation Code [facility] Comment on above: Performed By: #### 2 747884, 27660293, 70718819, 10236408 ####[facility] [address] [facility] [place] [address] ABO/Rh History Checkon 05-05 ABO/Rh History Check Type verified by se cond s Normal [facility] Comment on above: Performed By: #### 2 416323, 74130881, 18801723, 29945326 ####[facility] [address] [facility] [place] [address] ABO/Rh Retypeon 05-05-2023 ABO/Rh Retype Interp Positive Invalid Interpretation Code [facility] Comment on above: Performed By: #### 1 7208676 ####[facility] [address] [facility] [place] [address] ABSCon 05-05-2023 ABSC Gel Interp Negative Normal [facility] Comment on above: Performed By: #### 2 984017, 44940007, 91561937, 91343450 ####[facility] [address] [place] [address] Auto Diffon 05-05-2023 Basophils/100 WBC (Bld) 0.1 % Normal 0.0-2.0 [facility] Comment on above: Order Comment: Order Added by Discern Expert. Performed By: #### 1 4520121, 4855091, 4184157, 2734994, 2262767, 3976858, 8517719, 39364999, 3977239 ####[facility] [address] [place] [address] Basophils/Leukocytes Auto (Bld) [Pure # fraction] 0.0 E9/L Normal 0.0-0.2 [facility] Comment on above: Order Comment: Order Added by Discern Expert. Performed By: #### 1 1599733, 4875982, 1026954, 6847793, 9523614, 1348907, 8636008, 01640530, 7897818 ####[facility] [address] [place] [address] Eosinophils/100 WBC (Bld) 0.2 % Normal 0.0-8.0 [facility] Comment on above: Order Comment: Order Added by Discern Expert. Performed By: #### 1 7065543, 8709687, 6938906, 9889532, 0617188, 8146881, 2213753, 07025431, 4709400 ####[address] [place] [address] Eosinophils/Leukocytes Auto (Bld) [Pure # fraction] 0.0 E9/L Normal 0.0-0.5 [facility] Comment on above: Order Comment: Order Added by Discern Expert. Performed By: #### 1 8966961, 8671043, 2420188, 2699542, 7176025, 0379951, 4353361, 40828627, 9347121 ####[address] [place] [address] Lymphocytes/100 WBC (Bld) 5.3 % Low 14.0-50.0 [facility] Comment on above: Order Comment: Order Added by Discern Expert. Performed By: #### 1 2392564, 6679799, 2820321, 4846823, 6970616, 6908927, 1662463, 35254562, 3547405 ####[address] [address] Lymphocytes/Leukocytes Auto (Bld) [Pure # fraction] 0.9 E9/L Low 1.0-4.0 [facility] Comment on above: Order Comment: Order Added by Discern Expert. Performed By: #### 1 3141815, 5700515, 2941674, 4755785, 3003686, 1815614, 3315396, 16152625, 6808577 ####[address] [place] [address] Monocytes/100 WBC (Bld) 4.8 % Normal 4.0-14.0 [facility] Comment on above: Order Comment: Order Added by Discern Expert. Performed By: #### 1 3810502, 7778545, 2252253, 2863383, 9123658, 3416056, 5398060, 57555231, 7754103 ####[address] [place] [address] Monocytes/Leukocytes Auto (Bld) [Pure # fraction] 0.8 E9/L Normal 0.2-1.0 [facility] Comment on above: Order Comment: Order Added by Discern Expert. Performed By: #### 1 7626073, 4749200, 9214693, 4658239, 7716662, 7572478, 7752218, 11511122, 9875866 ####[facility] [address] [place] [address] Neutrophils/100 WBC (Bld) 89.6 % High 36.0-75.0 [facility] Comment on above: Order Comment: Order Added by Discern Expert. Performed By: #### 1 7601417, 9866936, 9267564, 1257688, 6557576, 8268102, 3297968, 31519740, 7095689 ####[address] [place] [address] Neutrophils/Leukocytes Auto (Bld) [Pure # fraction] 14.6 E9/L High 2.0-7.5 [facility] Comment on above: Order Comment: Order Added by Discern Expert. Performed By: #### 1 3094164, 5713357, 5420496, 5480295, 3538245, 0364241, 6386467, 18633940, 8139123 ####[facility] [address] [place] [address] BMPon 05-05-2023 Anion gap [Moles/Vol] 8 mmol/L Normal 6-16 [facility] Comment on above: Performed By: #### 2 266387, 5873725, 4772567, 6095923, 6619068, 68434191, 4447542, 5927483, 7572941, 6660235, 78668982, 7142409 ####[address] [place] [address] Calcium [Mass/Vol] 8.5 mg/dL Low 8.9-11.1 [facility] Comment on above: Performed By: #### 2 392879, 4578684, 3530592, 9874782, 2685181, 30050570, 1100188, 4346729, 5529932, 1004380, 69800004, 0449145 ####[facility] [address] [place] [address] Chloride [Moles/Vol] 110 mmol/L Normal 101-111 [facility] Comment on above: Performed By: #### 2 475318, 9034919, 5496257, 1035139, 3111911, 21197620, 2917843, 1033164, 6533825, 7253996, 76783028, 4651534 ####[facility] [address] [place] [address] CO2 [Moles/Vol] 24 mmol/L Normal 21-31 [facility] Comment on above: Performed By: #### 2 705822, 4515435, 4913519, 8348418, 0305235, 30742164, 2979197, 9119483, 9410026, 5412033, 86755446, 4336019 ####[facility] [address] [place] [address] Creatinine [Mass/Vol] 1.7 mg/dL High 0.5-1.3 [facility] Comment on above: Performed By: #### 2 458893, 0407128, 5039353, 0263334, 8503427, 53585025, 2118669, 5342257, 2133814, 3237826, 14880327, 4551672 ####[facility] [address] [place] [address] Glucose [Mass/Vol] 188 mg/dL Normal 55-199 [facility] Comment on above: Result Comment: If t his glucose result represents a fasting glucose, interpretation should refer to the following reference range: 55-99 mg/dL Performed By: #### 2 686199, 7826710, 9226682, 2561707, 7584498, 55409899, 7679193, 6085404, 2336031, 6096342, 92181571, 0748916 ####[facility] [address] [place] [address] Potassium [Moles/Vol] 5.9 mmol/L High 3.5-5.3 [facility] Comment on above: Performed By: #### 2 914397, 7111521, 3921328, 6625581, 1912375, 80128336, 5956122, 3024052, 8486748, 1960003, 85009763, 4822689 ####[facility] [address] [place] [address] Sodium [Moles/Vol] 136 mmol/L Normal 135-145 [facility] Comment on above: Performed By: #### 2 673032, 0459039, 9506548, 4242382, 0934173, 78045358, 7348016, 5574262, 5187939, 5542812, 49362400, 1439934 ####[facility] [address] [place] [address] Urea nitrogen [Mass/Vol] 30 mg/dL High 5-21 [facility] Comment on above: Performed By: #### 2 [id number], [id number], 0554768, 9455975, 9096632, [id number], 1355085, 4844191, 3805484, 5723152, [id number], [id number] ####[facility] [id number] [place] [address] Urea nitrogen/Creatinine [Mass ratio] 18 No Units Normal 10-20 [facility] Comment on above: Performed By: #### 2 [id number], [id number], [id number], 7003638, 8491368, 47857101, 9015902, 2657696, 7440174, 6920974, 01976119, 0187180 ####[facility] [address] [place] [address] Creatinine [Mass/Vol] 1.7 mg/dL High 0.5-1.3 [facility] Comment on above: Performed By: #### 1 7828701, 6743244, 7492669, 7794931, 3865819, 0218663, 9369121, 45015654, 7539027 ####[facility] [address] [place] [address] Urea nitrogen [Mass/Vol] 33 mg/dL High 5-21 [facility] Comment on above: Performed By: #### 1 1445093, 8753798, 3718250, 8525721, 4128344, 9737147, 0720628, 66190428, 1105256 ####[facility] [address] [place] [address] Urea nitrogen/Creatinine [Mass ratio] 19 No Units Normal 10-20 [facility] Comment on above: Performed By: #### 1 0965267, 2773053, 4575464, 6009143, 7929643, 6701595, 4973626, 50464936, 0359117 ####[facility] [address] [place] [address] Anion gap [Moles/Vol] 12 mmol/L Normal 6-16 [facility] Comment on above: Performed By: #### 1 0361439, 8134316, 2574337, 2872250, 0942295, 7157185, 3553406, 90294616, 3926205 ####[facility] [address] [place] [address] Calcium [Mass/Vol] 8.8 mg/dL Low 8.9-11.1 [facility] Comment on above: Performed By: #### 1 5214860, 9591637, 5185042, 9374690, 2554697, 4386685, 1893121, 97973335, 6558459 ####[facility] [address] [place] [address] Chloride [Moles/Vol] 106 mmol/L Normal 101-111 [facility] Comment on above: Performed By: #### 1 7320240, 3414684, 4619639, 5489937, 5054505, 2323122, 8847090, 82017145, 1287758 ####[facility] [address] [place] [address] CO2 [Moles/Vol] 22 mmol/L Normal 21-31 [facility] Comment on above: Performed By: #### 1 3377494, 5094085, 2160318, 3315438, 9368857, 0068827, 9412245, 23035628, 4267700 ####[facility] [address] [place] [address] Glucose [Mass/Vol] 239 mg/dL High 55-199 [facility] Comment on above: Result Comment: If t his glucose result represents a fasting glucose, interpretation should refer to the following reference range: 55-99 mg/dL Performed By: #### 1 6811966, 3020006, 5214403, 6770305, 9728201, 9987398, 7120773, 66373135, 6324233 ####[facility] [address] [place] [address] Potassium [Moles/Vol] 5.5 mmol/L High 3.5-5.3 [facility] Comment on above: Performed By: #### 1 9763465, 3633164, 6608653, 5204565, 7922543, 1260478, 3777484, 92599245, 9543509 ####[facility] [address] [place] [address] Sodium [Moles/Vol] 134 mmol/L Low 135-145 [facility] Comment on above: Performed By: #### 1 4214119, 3384526, 7851881, 1026841, 1150068, 7091215, 5308251, 54176899, 1459632 ####[facility] [address] [place] [address] Blood Bank ID#on 05-05-2023 BBID# [id number] Invalid Interpretation Code [facility] Comment on above: Performed By: #### 2 947377, 98797114, 45986895, 52236281 ####[facility] [address] [place] [address] CBC w/ Auto Diffon 3 Erythrocyte distribution width (RBC) [Ratio] 13.3 % Normal 10.9-14.2 [facility] Comment on above: Performed By: #### 1 1699281, 8868390, 3954464, 8758295, 8040625, 5430557, 0606750, 73962964, 1514175 ####[address] [place] [address] Hematocrit (Bld) [Volume fraction] 23.1 % Low 37.7-49.0 [facility] Comment on above: Performed By: #### 1 5472360, 4222627, 3862829, 6295795, 9267391, 8947249, 0937053, 38793590, 3927060 ####[address] [address] Hemoglobin (Bld) [Mass/Vol] 7.9 g/dL Low 13.5-17.5 [facility] Comment on above: Performed By: #### 1 4744032, 3046538, 5317675, 5412642, 4079283, 3332640, 6929009, 25890121, 7211743 ####[address] [address] MCH (RBC) [Entitic mass] 31.3 pg Normal 27.0-34.0 [facility] Comment on above: Performed By: #### 1 1154383, 7607764, 8794074, 6661141, 0173435, 2394704, 3446607, 70009217, 9804360 ####[address] [address] MCHC (RBC) [Mass/Vol] 34.2 g/dL Normal 31.4-36.0 [facility] Comment on above: Performed By: #### 1 5165295, 3502529, 4467942, 7639220, 8525055, 0674595, 1438404, 90936583, 4128479 ####[address] [place] [address] MCV (RBC) [Entitic vol] 91.6 fL Normal 80.0-100.0 [facility] Comment on above: Performed By: #### 1 8538923, 4943938, 9168895, 2894461, 2512328, 7535411, 3377075, 73247068, 4661254 ####[address] [place] [address] Platelet mean volume (Bld) [Entitic vol] 6.5 fL Normal 6.4-10.8 [facility] Comment on above: Performed By: #### 1 7069103, 2576278, 4118001, 5016735, 7168760, 4712275, 4284288, 39505922, 5280433 ####[address] [address] Platelets (Bld) [#/Vol] 315.0 E9/L Normal 150.0-500.0 [facility] Comment on above: Performed By: #### 1 9737076, 6745004, 9328546, 4182125, 3320623, 8014407, 1839566, 63215476, 3233243 ####[address] [address] RBC (Bld) [#/Vol] 2.5 E12/L Low 4.3-5.9 [facility] Comment on above: Performed By: #### 1 4736527, 1212017, 8598657, 1264591, 3500005, 2761631, 4378998, 93248859, 1359400 ####[address] [address] WBC corrected for nucl RBC Auto (Bld) [#/Vol] 16.2 E9/L High 4.0-11.0 [facility] Comment on above: Performed By: #### 1 4311950, 9101926, 4946721, 9941560, 6285976, 6223229, 4476505, 58951547, 6472377 ####[address] [address] CBC w/Indiceson 05-05-2023 Erythrocyte distribution width (RBC) [Ratio] 14.5 % High 10.9-14.2 [facility] Comment on above: Performed By: #### 2 702813, 8617096, 7047326, 2207433, 4528527, 95727392, 1397011, 1157686, 5475154, 8538846, 23193377, 3107964 ####[facility] [address] [place] [address] Hematocrit (Bld) [Volume fraction] 26.0 % Low 37.7-49.0 [facility] Comment on above: Performed By: #### 2 159952, 1522784, 5144074, 3176401, 0195600, 93709210, 5197874, 6682022, 4809404, 0509168, 76053880, 3931299 ####[facility] [address] [place] [address] Hemoglobin (Bld) [Mass/Vol] 9.0 g/dL Low 13.5-17.5 [facility] Comment on above: Performed By: #### 2 322579, 2156376, 6933362, 8358402, 9925093, 84451552, 8735620, 3776937, 2218873, 5231021, 30997122, 2473058 ####[facility] [address] [place] [address] MCH (RBC) [Entitic mass] 31.3 pg Normal 27.0-34.0 [facility] Comment on above: Performed By: #### 2 792010, 8078123, 4607431, 3419731, 7285839, 62237185, 0907630, 5647205, 1955234, 3938769, 12822681, 2201401 ####[facility] [address] [place] [address] MCHC (RBC) [Mass/Vol] 34.8 g/dL Normal 31.4-36.0 [facility] Comment on above: Performed By: #### 2 948756, 1516690, 0180721, 9960334, 8777317, 84985416, 1989609, 0445049, 4523503, 8925256, 14036150, 4765598 ####[facility] [address] [place] [address] MCV (RBC) [Entitic vol] 90.1 fL Normal 80.0-100.0 [facility] Comment on above: Performed By: #### 2 810174, 5636225, 0958023, 4965693, 2367912, 96035669, 2349106, 0999482, 2967261, 6051528, 19961275, 2551824 ####[facility] [address] [place] [address] Platelet mean volume (Bld) [Entitic vol] 6.7 fL Normal 6.4-10.8 [facility] Comment on above: Performed By: #### 2 611721, 1587202, 8481392, 5176260, 1303096, 88569912, 6697829, 9301856, 5354969, 4644063, 56540392, 1646390 ####[address] [address] Platelets (Bld) [#/Vol] 279.0 E9/L Normal 150.0-500.0 [facility] Comment on above: Performed By: #### 2 321792, 7282820, 9391744, 8028212, 0621225, 40972126, 3377068, 4022393, 3818902, 2092362, 97091289, 4062043 ####[facility] [address] [place] [address] RBC (Bld) [#/Vol] 2.9 E12/L Low 4.3-5.9 [facility] Comment on above: Performed By: #### 2 801915, 9733456, 1214812, 0690539, 2427568, 10740701, 4038558, 1002393, 1761909, 9088791, 37170271, 5838432 ####[facility] [address] [place] [address] WBC corrected for nucl RBC Auto (Bld) [#/Vol] 10.8 E9/L Normal 4.0-11.0 [facility] Comment on above: Performed By: #### 2 109274, 8483142, 4210824, 5184699, 8160612, 41114725, 0412791, 5976178, 3956304, 5232356, 84583424, 0562630 ####[facility] [address] [place] [address] CT Abdomen/Pelvis w/o Contra ston 05-05-2023 CT Abdomen/Pelvis w/o Contrast Normal [facility] CT Chest w/o Contraston CT Chest w/o Contrast Normal [facility] CT Head or Brain w/o Contras ton 05-05-2023 CT Head or Brain w/o Contrast Normal [facility] CT Spine Cervical w/o Contra ston 05-05-2023 CT Spine Cervical w/o Contrast Normal [facility] Capillary Glucose POCon Glucose [Mass/Vol] 239 mg/dL High 55-99 [facility] Comment on above: Result Comment: Eleno ALEXIS Performed By: #### 2 71899143 ####[facility] [address] [place] [address] Glucose [Mass/Vol] 185 mg/dL High 55-99 [facility] Comment on above: Result Comment: Eleno ALEXIS Performed By: #### 2 00456605 ####[facility] [address] [place] [address] Glucose [Mass/Vol] 167 mg/dL High 55-99 [facility] Comment on above: Result Comment: Eleno ALEXIS Performed By: #### 2 00867969 ####[facility] [address] [place] [address] Consent for Treatmenton Consent for Treatment [id number]#1.00CD :127 Normal [facility] ED Clinical Summaryon 2022 ED Clinical Summary Normal [facility] ED Note-Physicianon 05-05-20 ED Note-Physician Normal [facility] Comment on above: Result Comment: Elec tronically Signed By: Hubert Collins DO\Date and Time Signed: 05/05/23 00:47 EDT ED Patient Education Noteon 05-05-2023 ED Patient Education Note Normal [facility] ED Patient Summaryon 023 ED Patient Summary Normal [facility] ED Traumaon 05-05-2023 ED Trauma [id number]#1.00CD: 127 Normal [facility] Ethanolon 05-05-2023 Ethanol [Mass/Vol] mg/dL Normal <=7 [facility] Comment on above: Performed By: #### 2 776391 ####[facility] [address] [place] [address] Hep Func Panelon 05-05-2023 Bilirubin.indirect [Mass or moles/Vol] UTC Abnormal 0.1-0.9 [facility] Comment on above: Result Comment: Resu lt verified by Discern Rule. Performed result UTC (Unable to Calculate) was sent as an Alpha code due the inability to calculate a valid numeric value. Performed By: #### 1 1540229, 3352409, 7806742, 0207440, 5261445, 4445352, 5372219, 05787356, 1633499 ####[facility] [address] [place] [address] Albumin [Mass/Vol] 3.0 g/dL Low 3.3-5.0 [facility] Comment on above: Performed By: #### 1 3576305, 5787347, 0490468, 8170861, 4342067, 9845058, 7009376, 29208644, 3778465 ####[facility] [address] [place] [address] Albumin/Globulin (S) [Mass conc ratio] 0.7 Low 1.1-2.2 [facility] Comment on above: Performed By: #### 1 4193766, 9383504, 6289180, 2203621, 8562896, 3321264, 4459577, 87352602, 0422870 ####[address] [place] [address] ALP [Catalytic activity/Vol] 94 Int._Unit/L Normal 21-98 [facility] Comment on above: Performed By: #### 1 2130790, 8769899, 1934278, 4604723, 1183937, 6522080, 1596909, 89071222, 2610283 ####[address] [place] [address] ALT No additional P-5'-P [Catalytic activity/Vol] 17 Int._Unit/L Normal 6-46 [facility] Comment on above: Performed By: #### 1 5319408, 6005117, 0998761, 6603313, 8747834, 8286367, 5440519, 03316045, 8913126 ####[address] [address] AST [Catalytic activity/Vol] 23 Int._Unit/L Normal 5-43 [facility] Comment on above: Performed By: #### 1 8579921, 3003831, 6233374, 2146445, 4848850, 5621825, 1747038, 94758774, 0757132 ####[address] [place] [address] Bilirubin [Mass/Vol] 0.5 mg/dL Normal 0.0-1.1 [facility] Comment on above: Performed By: #### 1 3896819, 5665801, 5834661, 3613076, 3499372, 5355775, 8409738, 85499576, 6558485 ####[address] [place] [address] Globulin (S) [Mass/Vol] 4.5 g/dL High 1.4-4.0 [facility] Comment on above: Performed By: #### 1 5290658, 1900242, 0548142, 9898769, 8298165, 2253457, 8326730, 24745719, 0630678 ####[facility] [address] [place] [address] Protein [Mass/Vol] 7.5 g/dL Normal 6.0-7.8 [facility] Comment on above: Performed By: #### 1 7030309, 6593935, 6372860, 3440172, 1012533, 8934943, 3057406, 20672581, 4228544 ####[facility] [address] [place] [address] Bilirubin.direct [Mass/Vol] mg/dL Normal 0.1-0.4 [facility] Comment on above: Performed By: #### 1 4121478, 0917144, 6795350, 4015669, 6918856, 9029618, 4001366, 90214495, 4741267 ####[facility] [address] [place] [address] Interdisciplinary Note - Reza e Manageron 05-05-2023 Interdisciplinary Note - Parking Lot Manager Normal [facility] Comment on above: Result Comment: Elec tronically Signed By: Monet Vasques\.br\Date and Time Signed: 05/05/23 12:59 EDT Ironon 05-05-2023 Iron [Mass/Vol] 60 microgram/dL Normal 35-153 [facility] Comment on above: Performed By: #### 2 945402, 1195486, 2168762, 7679832, 4713215, 27752554, 6679997, 5928433, 7712950, 8271716, 44316102, 0628951 ####[facility] [address] [place] [address] Iron Saturationon 05-05-2023 Iron binding capacity [Mass/Vol] 214 microgram/dL Low 250-400 [facility] Comment on above: Performed By: #### 2 281583, 4292584, 8672250, 3216055, 1783996, 19219248, 1988160, 3711153, 2073565, 2579166, 92024233, 9911921 ####[facility] [address] [place] [address] Iron saturation [Mass fraction] 28 % Normal 20-50 [facility] Comment on above: Performed By: #### 2 174567, 0153351, 6544284, 1079955, 2366901, 73990809, 9696181, 0765445, 5085730, 3862464, 54183759, 3452209 ####[facility] [address] [place] [address] Lactic Acidon 05-05-2023 Lactate [Mass/Vol] 1.6 mmol/L Normal 0.5-2.2 [facility] Comment on above: Performed By: #### 1 4358124, 1902544, 0499322, 0727528, 0069423, 1401362, 1713814, 99805205, 6950615 ####[facility] [address] [place] [address] Lipase Levelon 05-05-2023 Lipase [Catalytic activity/Vol] 27 U/L Normal 13-58 [facility] Comment on above: Performed By: #### 1 4734464, 3347195, 6128303, 3962507, 6400835, 7877466, 9711361, 08668464, 0743189 ####[facility] [address] [place] [address] Magnesiumon 05-05-2023 Magnesium [Mass/Vol] 1.9 mg/dL Normal 1.3-2.4 [facility] Comment on above: Performed By: #### 2 405614, 0839138, 3231643, 5393931, 7778203, 93531948, 8136168, 3992320, 7234905, 7766099, 73143742, 0518246 ####[facility] [address] [place] [address] Main OR PACU I Recordon 07-0 Main OR PACU I Record Normal [facility] Monitor Recordon 05-05-2023 Monitor Record [id number]#1.00CD: 127 Normal [facility] Monitor Record [id number]#1.00CD: 127 Normal [facility] Operative Reporton Operative Report Normal [facility] Comment on above: Result Comment: Elec tronically Signed By: Rafi Blackman DO.mirela\Date and Time Signed: 05/05/23 13:40 EDT PT & PTTon 05-05-2023 aPTT Coag (PPP) [Time] 30.1 second(s) Normal 25.1-36.5 [facility] Comment on above: Result Comment: Para meter 15 days - 4 weeks 1 - 5 months 6 - 11 months 1 - 5 years 6 - 10 years 11 - 17 years PTT Mean: 35.4 (27.6-45.6) Mean: 33.5 (24.8-40.7) Mean: 32.4 (25.1-40.7) Mean: 31.6 (24.0-39.2) Mean: 31.6 (26.9-38.7) Mean: 31.0 (24.6-38.4) Pediatric Reference ranges were obtained from a study by Mikey Franco et al. prepared from 1437 samples obtained at 7 different centers using the same coagulation reagent and instrumentation as [facility] [place]. Currently there are no coagulation studies available worldwide for children to 14 days, and no normal ranges. Heparin therapeutic range (represented by Anti-Factor Xa activity of 0.2 - 0.4 U/mL) corresponds to PTT of 56.6 - 109.0 sec. Performed By: #### 1 5638009, 5259178, 6713485, 6426874, 9785956, 7403282, 2339802, 68577317, 3508878 ####[facility] [address] [place] [address] INR Coag (PPP) [Relative time] 1.1 {INR} Invalid Interpretation Code [facility] Comment on above: Result Comment: INR results are specifically intended to assess patients stabilized on long-term Anticoagulation therapy suggested INR?s ?Less Intensive Anticoagulation? 2.0 ? 3.0Conventional Range 3.0 ? 4.5 Performed By: #### 1 5753919, 0362599, 8591783, 6597096, 0903655, 4911564, 7396410, 52889639, 1225262 ####[facility] [address] [place] [address] PT Coag (PPP) [Time] 12.3 second(s) Normal 9.4-12.5 [facility] Comment on above: Result Comment: 15 d ays - 4 weeks 1 - 5 months 6 -11 months 1 ? 5 years 6 ? 10 years 11 -17 years Mean: 11.2 (9.5 ? 12.6) Mean: 11.0 (9.7 ? 12.8) Mean: 11.0 (9.8 ? 13.0) Mean: 11.3 (9.9 ? 13.4) Mean: 11.7 (10.0 ? 14.6) Mean: 11.8 (10.0 - 14.1) Pediatric Reference ranges were obtained from a study by Mikey Franco et al. prepared from 1437 samples obtained at 7 different centers using the same coagulation reagent and instrumentation as [facility] [place]. Currently there are no coagulation studies available worldwide for children to 14 days, and no normal ranges. Performed By: #### 1 1995942, 4915286, 1318023, 8811504, 0475877, 8813342, 5420304, 44440980, 9610380 ####[facility] [address] [place] [address] Pre-Arrival Noteon 3 Pre-Arrival Note Normal [facility] Progress Note-Physicianon Progress Note-Physician Normal [facility] Comment on above: Result Comment: Elec tronically Signed By: Corina RENNER MD\.br\Date and Time Signed: 05/05/23 09:33 EDT Progress Note-Physician Normal [facility] Comment on above: Result Comment: Elec tronically Signed By: Rafi Blackman DO\.br\Date and Time Signed: 05/05/23 07:50 EDT RAD - Preliminary Cat Scan R eporton 05-05-2023 RAD - Preliminary Cat Scan Report [id number]#1.00CD: 127 Normal [facility] RCOon 05-05-2023 # of Units 2 Invalid Interpretation Code [facility] Comment on above: Order Comment: antic ipated intraoperative blood loss in patient with known CAD and chronic anemia. Performed By: #### 1 2176014 ####[facility] [address] [place] [address] Date Required [id number] Invalid Interpretation Code [facility] Comment on above: Order Comment: antic ipated intraoperative blood loss in patient with known CAD and chronic anemia. Performed By: #### 1 4586805 ####[facility] [address] [place] [address] Order to Transfuse Yes Normal [facility] Comment on above: Order Comment: antic ipated intraoperative blood loss in patient with known CAD and chronic anemia. Performed By: #### 1 3409144 ####[facility] [address] [place] [address] Product Type None Required Invalid Interpretation Code [facility] Comment on above: Order Comment: antic ipated intraoperative blood loss in patient with known CAD and chronic anemia. Performed By: #### 1 0124723 ####[facility] [address] [place] [address] Retic Counton 05-05-2023 Reticulocytes/100 RBC (Bld) 1.0 % Normal 0.5-1.5 [facility] Comment on above: Result Comment: This Reticulocyte Count Has Been Corrected For Anemia Performed By: #### 2 376676, 6110485, 0114620, 8153487, 8425579, 68355526, 3532602, 1248765, 1891853, 5125985, 80511285, 9164728 ####[facility] [address] [place] [address] TSH With T4fr Reflexon 05-05 TSH Qn 2.36 m[IU]/L Normal 0.34-5.60 [facility] Comment on above: Order Comment: pt lozano s blood running will check back later [id number] 05/05/2023 06:09:08 EDT Performed By: #### 2 768448, 9202117, 9975046, 2589124, 9847397, 75510240, 1245967, 4703709, 2381876, 2551063, 69760012, 8113256 ####[facility] [address] [place] [address] Transferrinon 05-05-2023 Transferrin [Mass/Vol] 153 mg/dL Low 200-370 Fi [facility] Comment on above: Order Comment: Trans jennifer order added by Discern Rule: gl_ftmc_add_iron_trans . Performed By: #### 2 803178, 3011327, 0771819, 8548399, 5312865, 49388494, 2223730, 0454323, 2384740, 9246761, 95696186, 6565317 ####[facility] [address] [place] [address] Troponinon 05-05-2023 Troponin I.cardiac [Mass/Vol] 21.80 pg/mL Normal 15.90-38.40 [facility] Comment on above: Result Comment: The 95% CI (Confidence Interval) PPV (Positive Predictive Value) for myocardial infarction in females is 38 pg/mL, in males 51 pg/mL. The results should be used in conjunction with clinical conditions of myocardial infarction.(Access High Sensitivity Troponin I Instructions For Use, [employer], June 2018) Performed By: #### 1 2736182, 4929887, 5691962, 7251538, 5622146, 4851263, 7718676, 57458734, 7035368 ####[address] [place] [address] U Drug Screenon 05-05-2023 Opiates Screen Ql (U) Positive Abnormal Negative Fis [facility] Comment on above: Result Comment: Nega tive Cutoff: <300 ng/mL Performed By: #### 2 673414 ####[facility] [address] [place] [address] Amphetamines Screen method >1000 ng/mL Ql (U) Negative Normal Negative [facility] Comment on above: Result Comment: Nega tive Cutoff: <1000 ng/mL Performed By: #### 2 610773 ####[facility] [address] [place] [address] Barbiturates Screen Ql (U) Negative Normal Negative [facility] Comment on above: Result Comment: Nega tive Cutoff: <200 ng/mL Performed By: #### 2 605402 ####[facility] [address] [facility] [place] [address] Benzodiazepines Ql (U) Negative Normal Negative Fi [facility] Comment on above: Result Comment: Nega tive Cutoff: <200 ng/mL Performed By: #### 2 522078 ####[facility] [address] [place] [address] Cocaine Ql (U) Negative Normal Negative [facility] Comment on above: Result Comment: Nega tive Cutoff: <300 ng/mL Performed By: #### 2 521694 ####[facility] [address] [place] [address] Phencyclidine Screen method >25 ng/mL Ql (U) Negative Normal Negative [facility] Comment on above: Result Comment: Nega tive Cutoff: <25 ng/mLThese drug screen results are to be used for medical (i.e., treatment) purposes only. Unconfirmed drug screening results must not be used for non-medical purposes (e.g., employment testing, legal testing). Performed By: #### 2 374200 ####[facility] [address] [place] [address] Tetrahydrocannabinol Screen method >50 ng/mL Ql (U) Negative Normal Negative [facility] Comment on above: Result Comment: Nega tive Cutoff: <50 ng/mL Performed By: #### 2 332450 ####[facility] [address] [place] [address] XR Hip 1 View Left + Pelviso n 05-05-2023 XR Hip 1 View Left + Pelvis Normal [facility] XR Hip 2-3 Views Left + Pelv abdiaziz 05-05-2023 XR Hip 2-3 Views Left + Pelvis Normal [facility] eGFRon 05-05-2023 GFR/1.73 sq M.predicted among non-blacks MDRD (S/P/Bld) [Vol rate/Area] 45 mL/min/1.73 m2 Low >=59 [facility] Comment on above: Order Comment: Order added by Discern Expert. 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 Kidney failure is indicated at less than 15 mL/min/1.73m2. Performed By: #### 2 562717, 3535926, 5180862, 9632016, 9087740, 81775931, 3130260, 4962947, 8317485, 2696217, 65693870, 7100993 ####[facility] [address] [place] [address] GFR/1.73 sq M.predicted among non-blacks MDRD (S/P/Bld) [Vol rate/Area] 45 mL/min/1.73 m2 Low >=59 [facility] Comment on above: Order Comment: Order added by Discern Expert. 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 Kidney failure is indicated at less than 15 mL/min/1.73m2. Performed By: #### 1 0525622, [id number], [id number], [id number], [id number], [id number] ####[facility] [address] [place] [address] C Blood Charcoalon 3 Blood Culture Charcoal Normal [facility] Comment on above: Performed By: #### [id number] ####[facility] [address] [place] [address] Blood Culture Charcoal Normal [facility] Comment on above: Performed By: #### 1 [id number] ####[facility] [address] [place] [address] Outside Recordson 04-28-2023 Outside Records [id number]: 127 Normal [facility] Auto Diffon 04-27-2023 Basophils/100 WBC (Bld) 0.3 % Normal 0.0-2.0 [facility] Comment on above: Order Comment: Order Added by Discern Expert. Performed By: #### 2 783350, 0265711, 8502891, 20116774, 5721019 ####[facility] [address] [place] [address] Basophils/Leukocytes Auto (Bld) [Pure # fraction] 0.0 E9/L Normal 0.0-0.2 [facility] Comment on above: Order Comment: Order Added by Discern Expert. Performed By: #### 2 958824, 8101611, 8429765, 35474641, 3143230 ####[address] [place] [address] Eosinophils/100 WBC (Bld) 4.9 % Normal 0.0-8.0 [facility] Comment on above: Order Comment: Order Added by Discern Expert. Performed By: #### 2 618977, 3913033, 6584031, 46313205, 6305378 ####[address] [address] Eosinophils/Leukocytes Auto (Bld) [Pure # fraction] 0.4 E9/L Normal 0.0-0.5 [facility] Comment on above: Order Comment: Order Added by Discern Expert. Performed By: #### 2 327586, 9751869, 1709750, 00319608, 2476864 ####[address] [address] Lymphocytes/100 WBC (Bld) 21.6 % Normal 14.0-50.0 [facility] Comment on above: Order Comment: Order Added by Discern Expert. Performed By: #### 2 052345, 3084199, 9312645, 78612854, 1796149 ####[address] [place] [address] Lymphocytes/Leukocytes Auto (Bld) [Pure # fraction] 2.0 E9/L Normal 1.0-4.0 [facility] Comment on above: Order Comment: Order Added by Discern Expert. Performed By: #### 2 214860, 4320979, 1442255, 04507459, 6318897 ####[facility] [address] [place] [address] Monocytes/100 WBC (Bld) 9.2 % Normal 4.0-14.0 [facility] Comment on above: Order Comment: Order Added by Discern Expert. Performed By: #### 2 040107, 9179630, 2029793, 11644551, 2160573 ####[facility] [address] [place] [address] Monocytes/Leukocytes Auto (Bld) [Pure # fraction] 0.8 E9/L Normal 0.2-1.0 [facility] Comment on above: Order Comment: Order Added by Jimenez Expert. Performed By: #### 2 064706, 9830573, 1052214, 32055711, 9907295 ####[address] [address] Neutrophils/100 WBC (Bld) 64.0 % Normal 36.0-75.0 [facility] Comment on above: Order Comment: Order Added by Jimenez Expert. Performed By: #### 2 326092, 5648739, 5412148, 40977013, 8456138 ####[address] [place] [address] Neutrophils/Leukocytes Auto (Bld) [Pure # fraction] 5.8 E9/L Normal 2.0-7.5 [facility] Comment on above: Order Comment: Order Added by Jimenez Expert. Performed By: #### 2 289372, 3562519, 5714534, 24975588, 5903586 ####[address] [place] [address] BMPon 04-27-2023 Creatinine [Mass/Vol] 1.7 mg/dL High 0.5-1.3 [facility] Comment on above: Performed By: #### 2 084900, 3770866, 0967876, 47436804, 4753928 ####[facility] [address] [place] [address] Anion gap [Moles/Vol] 10 mmol/L Normal 6-16 [facility] Comment on above: Performed By: #### 2 020500, 9901887, 3940333, 61659255, 5312035 ####[facility] [address] [place] [address] Calcium [Mass/Vol] 8.4 mg/dL Low 8.9-11.1 [facility] Comment on above: Performed By: #### 2 485309, 5016213, 8471706, 85627779, 2550863 ####[facility] [address] [place] [address] Chloride [Moles/Vol] 111 mmol/L Normal 101-111 [facility] Comment on above: Performed By: #### 2 947023, 2889338, 8843527, 21373373, 0239122 ####[facility] [address] [facility] [place] [address] CO2 [Moles/Vol] 22 mmol/L Normal 21-31 [facility] Comment on above: Performed By: #### 2 993616, 8562273, 1273721, 61906587, 5946018 ####[facility] [address] [facility] [place] [address] Glucose [Mass/Vol] 156 mg/dL Normal 55-199 [facility] Comment on above: Result Comment: If t his glucose result represents a fasting glucose, interpretation should refer to the following reference range: 55-99 mg/dL Performed By: #### 2 469784, 4032472, 5469803, 14776311, 7488238 ####[facility] [address] [place] [address] Potassium [Moles/Vol] 4.9 mmol/L Normal 3.5-5.3 [facility] Comment on above: Performed By: #### 2 492821, 9388230, 9963349, 43363030, 5846712 ####[facility] [address] [place] [address] Sodium [Moles/Vol] 138 mmol/L Normal 135-145 [facility] Comment on above: Performed By: #### 2 156638, 7505086, 7231808, 44516655, 0310252 ####[facility] [address] [place] [address] Urea nitrogen [Mass/Vol] 42 mg/dL High 5-21 [facility] Comment on above: Performed By: #### 2 228524, 7645256, 4086727, 36629611, 2927259 ####[facility] [address] [place] [address] Urea nitrogen/Creatinine [Mass ratio] 25 No Units High 10-20 [facility] Comment on above: Performed By: #### 2 712058, 2677638, 0603716, 53657534, 1084485 ####[facility] [address] [place] [address] C Urineon 04-27-2023 Bacteria identified Cx Nom (U) Normal [facility] Comment on above: Performed By: #### 1 0767020, 7055186 ####[facility] [address] [place] [address] CBC w/ Auto Diffon Erythrocyte distribution width (RBC) [Ratio] 13.3 % Normal 10.9-14.2 [facility] Comment on above: Performed By: #### 2 002145, 9502377, 3195855, 72511384, 8853946 ####[facility] [address] [place] [address] Hematocrit (Bld) [Volume fraction] 23.0 % Low 37.7-49.0 [facility] Comment on above: Performed By: #### 2 676003, 5890695, 4602495, 34482837, 1160043 ####[facility] [address] [place] [address] Hemoglobin (Bld) [Mass/Vol] 8.1 g/dL Low 13.5-17.5 [facility] Comment on above: Performed By: #### 2 787043, 2821735, 6019330, 64510829, 2367504 ####[facility] [address] [place] [address] MCH (RBC) [Entitic mass] 31.9 pg Normal 27.0-34.0 [facility] Comment on above: Performed By: #### 2 786456, 5952865, 3620765, 17445556, 3933107 ####[facility] [address] [place] [address] MCHC (RBC) [Mass/Vol] 35.3 g/dL Normal 31.4-36.0 [facility] Comment on above: Performed By: #### 2 217215, 4034130, 3023551, 18230801, 3830430 ####[address] [address] MCV (RBC) [Entitic vol] 90.4 fL Normal 80.0-100.0 [facility] Comment on above: Performed By: #### 2 143707, 7284829, 6867919, 45208683, 0104266 ####[facility] [address] [place] [address] Platelet mean volume (Bld) [Entitic vol] 6.9 fL Normal 6.4-10.8 [facility] Comment on above: Performed By: #### 2 325994, 6907060, 3257942, 01425762, 5273354 ####[facility] [address] [place] [address] Platelets (Bld) [#/Vol] 372.0 E9/L Normal 150.0-500.0 [facility] Comment on above: Performed By: #### 2 970014, 3289978, 0548498, 12255412, 2382170 ####[facility] [address] [place] [address] RBC (Bld) [#/Vol] 2.5 E12/L Low 4.3-5.9 [facility] Comment on above: Performed By: #### 2 267473, 3145884, 3599999, 29728980, 0359336 ####[facility] [address] [place] [address] WBC corrected for nucl RBC Auto (Bld) [#/Vol] 9.1 E9/L Normal 4.0-11.0 [facility] Comment on above: Performed By: #### 2 331843, 6103444, 0183258, 11115368, 7069880 ####[facility] [address] [place] [address] CHEMISTRYOrdered By: Lab ROP User on 04-27-2023 Glucose [Mass/Vol] 166 mg/dL High 55 - 99 mg/dL [facility] POC Subsection Comment on above: Result Comment: Dominique debbie Meter POC Device SN [id number] Invalid Interpretation Code [facility] POC Subsection POC User ID [id number] Invalid Interpretation Code [facility] [place] [facility] POC Subsection POC Username LEONEL MULLINS Invalid Interpretation Code [facility] [place] POC Subsection CHEMISTRYOrdered By: SYSTEM SYSTEM on 04-27-2023 Anion gap [Moles/Vol] 10 mmol/L Normal 6 - 16 mEq/L F C Remisol Calcium [Mass/Vol] 8.4 mg/dL Low 8.9 - 11. 1 mg/dL [facility] Remisol Chloride [Moles/Vol] 111 mmol/L Normal 101 - 1 11 mmol/L [facility] [facility] Remisol CO2 [Moles/Vol] 22 mmol/L Normal 21 - 31 mmol/L [facility] [place] Remisol GFR/1.73 sq M.predicted among non-blacks MDRD (S/P/Bld) [Vol rate/Area] 45 mL/min/1.73 m2 Low >=59mL/min/1 .73 m2 [facility] Chem S Glucose [Mass/Vol] 156 mg/dL Normal 55 - 199 mg/dL FT Remisol Magnesium [Mass/Vol] 1.7 mg/dL Normal 1.3 - 2 .4 mg/dL [facility] Remisol Potassium [Moles/Vol] 4.9 mmol/L Normal 3.5 - 5.3 mmol/L [facility] Remisol Sodium [Moles/Vol] 138 mmol/L Normal 135 - 145 mmol/L FT Remisol Urea nitrogen [Mass/Vol] 42 mg/dL High 5 - 21 mg/dL FT Remisol Urea nitrogen/Creatinine [Mass ratio] 25 mg/mg High 10 - 20 [facility] [place] Remisol CHEMISTRYOrdered By: Bertin Cyr on 04-27-2023 Creatinine [Mass/Vol] 1.7 mg/dL High 0.5 - 1.3 mg/dL [facility] Remisol Capillary Glucose POCon 04-05 Glucose [Mass/Vol] 166 mg/dL High 55-99 [facility] Comment on above: Result Comment: Dominique debbie Meter Performed By: #### 2 [id number] ####[facility] [address] [place] [address] HEMATOLOGYOrdered By: SYSTEM SYSTEM on 04-27-2023 Basophils/100 WBC (Bld) 0.3 % Normal 0.0 - 2.0 % [facility] HemeAutoSS Basophils/Leukocytes Auto (Bld) [Pure # fraction] 0.0 E9/L Normal 0.0 - 0.2 E9/L [facility]Auto[facility] Eosinophils/100 WBC (Bld) 4.9 % Normal 0.0 - 8.0 % [facility]eAuto[facility] Eosinophils/Leukocytes Auto (Bld) [Pure # fraction] 0.4 E9/L Normal 0.0 - 0.5 E9/L [facility]eAuto[facility] Lymphocytes/100 WBC (Bld) 21.6 % Normal 14.0 - 50.0 % [facility]eAuto[facility] Lymphocytes/Leukocytes Auto (Bld) [Pure # fraction] 2.0 E9/L Normal 1.0 - 4.0 E9/L [facility]eAuto[facility] Monocytes/100 WBC (Bld) 9.2 % Normal 4.0 - 14.0 % [facility]Auto[facility] Monocytes/Leukocytes Auto (Bld) [Pure # fraction] 0.8 E9/L Normal 0.2 - 1.0 E9/L [facility] Neutrophils/100 WBC (Bld) 64.0 % Normal 36.0 - 75.0 % [facility]eAuto[facility] Neutrophils/Leukocytes Auto (Bld) [Pure # fraction] 5.8 E9/L Normal 2.0 - 7.5 E9/L [facility] HemeAutoSS HEMATOLOGYOrdered By: Monet Cantu on 04-27-2023 Erythrocyte distribution width (RBC) [Ratio] 13.3 % Normal 10.9 - 14.2 % [facility]eAuto[facility] Hematocrit (Bld) [Volume fraction] 23.0 % Low 37.7 - 49.0 % [facility]eAutoSS Hemoglobin (Bld) [Mass/Vol] 8.1 g/dL Low 13.5 - 17.5 gm/dL [facility]Auto[facility] MCH (RBC) [Entitic mass] 31.9 pg Normal 27.0 - 34.0 pg [facility]eAuto[facility] MCHC (RBC) [Mass/Vol] 35.3 g/dL Normal 31.4 - 36.0 gm/dL [facility]eAuto[facility] MCV (RBC) [Entitic vol] 90.4 fL Normal 80.0 - 100.0 fL [facility]Auto[facility] Platelet mean volume (Bld) [Entitic vol] 6.9 fL Normal 6.4 - 10.8 fL [facility] HemeAutoSS Platelets (Bld) [#/Vol] 372.0 E9/L Normal 150. 0 - 500.0 E9/L [facility] HemeAutoSS RBC (Bld) [#/Vol] 2.5 E12/L Low 4.3 - 5.9 E12/L [facility]eAuto[facility] WBC corrected for nucl RBC Auto (Bld) [#/Vol] 9.1 E9/L Normal 4.0 - 11.0 E9/L [facility] HemeAutoSS Inpatient Clinical Summaryon 04-27-2023 Inpatient Clinical Summary Normal [facility] Inpatient Patient Summaryon 04-27-2023 Inpatient Patient Summary Normal [facility] Inpatient Patient Summary Normal [facility] Inpatient Patient Summary Normal [facility] Interdisciplinary Note - Reza e Manageron 04-27-2023 Interdisciplinary Note - Parking Lot Manager Normal [facility] Comment on above: Result Comment: Elec tronically Signed By: Aripta WALKER, Christine\.mirela\Date and Time Signed: 04/27/23 13:14 EDT Magnesiumon 04-27-2023 Magnesium [Mass/Vol] 1.7 mg/dL Normal 1.3-2.4 [facility] Comment on above: Performed By: #### 2 200161, 7134910, 4538539, 04375881, 9784667 ####[facility] [address] [place] [address] Monitor Recordon 04-27-2023 Monitor Record [id number] :127 Normal [facility] eGFRon 04-27-2023 GFR/1.73 sq M.predicted among non-blacks MDRD (S/P/Bld) [Vol rate/Area] 45 mL/min/1.73 m2 Low >=59 [facility] Comment on above: Order Comment: Order added by Discern Expert. 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 Kidney failure is indicated at less than 15 mL/min/1.73m2. Performed By: #### 2 695386, 4766038, 7043047, 88769933, 3016869 ####[facility] [address] [place] [address] Auto Diffon 04-26-2023 Basophils/100 WBC (Bld) 0.2 % Normal 0.0-2.0 [facility] Comment on above: Order Comment: Order Added by Discern Expert. Performed By: #### 2 961887, 3271804, 2003987, 3104784, 53875074 ####[facility] [address] [place] [address] Basophils/Leukocytes Auto (Bld) [Pure # fraction] 0.0 E9/L Normal 0.0-0.2 [facility] Comment on above: Order Comment: Order Added by Discern Expert. Performed By: #### 2 837840, 6612248, 1673981, 4575222, 27962456 ####[facility] [address] [place] [address] Eosinophils/100 WBC (Bld) 4.9 % Normal 0.0-8.0 [facility] Comment on above: Order Comment: Order Added by Discern Expert. Performed By: #### 2 165922, 2584665, 2803794, 8853574, 98490124 ####[address] [place] [address] Eosinophils/Leukocytes Auto (Bld) [Pure # fraction] 0.5 E9/L Normal 0.0-0.5 [facility] Comment on above: Order Comment: Order Added by Discern Expert. Performed By: #### 2 241506, 4272799, 6993031, 3788793, 73517332 ####[address] [address] Lymphocytes/100 WBC (Bld) 15.9 % Normal 14.0-50.0 [facility] Comment on above: Order Comment: Order Added by Discern Expert. Performed By: #### 2 153633, 8874925, 8175933, 1853832, 41672505 ####[address] [address] Lymphocytes/Leukocytes Auto (Bld) [Pure # fraction] 1.6 E9/L Normal 1.0-4.0 [facility] Comment on above: Order Comment: Order Added by Discern Expert. Performed By: #### 2 441818, 4996635, 0105034, 8039417, 68069990 ####[address] [address] Monocytes/100 WBC (Bld) 9.8 % Normal 4.0-14.0 [facility] Comment on above: Order Comment: Order Added by Discern Expert. Performed By: #### 2 880219, 4690854, 9453523, 4669256, 65068395 ####[address] [place] [address] Monocytes/Leukocytes Auto (Bld) [Pure # fraction] 1.0 E9/L Normal 0.2-1.0 [facility] Comment on above: Order Comment: Order Added by Discern Expert. Performed By: #### 2 052886, 6079929, 6957608, 6045106, 60384750 ####[address] [address] Neutrophils/100 WBC (Bld) 69.2 % Normal 36.0-75.0 [facility] Comment on above: Order Comment: Order Added by Discern Expert. Performed By: #### 2 466006, 7496658, 0010994, 0003216, 27809201 ####[facility] [address] [place] [address] Neutrophils/Leukocytes Auto (Bld) [Pure # fraction] 6.8 E9/L Normal 2.0-7.5 [facility] Comment on above: Order Comment: Order Added by Discern Expert. Performed By: #### 2 682346, 9294999, 6956693, 9878121, 69454291 ####[facility] [address] [place] [address] BMPon 04-26-2023 Anion gap [Moles/Vol] 6 mmol/L Normal 6-16 [facility] Comment on above: Performed By: #### 2 731190, 0580115, 9312490, 2391893, 49138147 ####[facility] [address] [place] [address] Calcium [Mass/Vol] 8.4 mg/dL Low 8.9-11.1 [facility] Comment on above: Performed By: #### 2 738540, 2917005, 0879535, 3808978, 95246071 ####[facility] [address] [place] [address] Chloride [Moles/Vol] 111 mmol/L Normal 101-111 [facility] Comment on above: Performed By: #### 2 001217, 2043902, 4206074, 4366868, 64226200 ####[facility] [address] [place] [address] CO2 [Moles/Vol] 22 mmol/L Normal 21-31 [facility] Comment on above: Performed By: #### 2 558057, 5455095, 6719946, 2740309, 13224409 ####[facility] [address] [place] [address] Creatinine [Mass/Vol] 2.5 mg/dL High 0.5-1.3 [facility] Comment on above: Performed By: #### 2 311534, 7485855, 7134842, 3352085, 79801296 ####[facility] [address] [place] [address] Glucose [Mass/Vol] 196 mg/dL Normal 55-199 [facility] Comment on above: Result Comment: If t his glucose result represents a fasting glucose, interpretation should refer to the following reference range: 55-99 mg/dL Performed By: #### 2 526044, 4918222, 7831409, 0627844, 84473017 ####[facility] [address] [place] [address] Potassium [Moles/Vol] 6.0 mmol/L Abnormal 3.5-5.3 [facility] Comment on above: Result Comment: Crit ical Result verified by repeat analysis\Critical Result S_K:6.0 Called to NOE OLIVERA AT 3S by FELIX DILL And Read Back For Confirmation at: 04/26/2023 07:35 Performed By: #### 2 732682, 7602749, 0134801, 4601794, 29887818 ####[facility] [address] [place] [address] Sodium [Moles/Vol] 133 mmol/L Low 135-145 [facility] Comment on above: Performed By: #### 2 692464, 8312145, 6140139, 4901120, 38320322 ####[facility] [address] [place] [address] Urea nitrogen [Mass/Vol] 59 mg/dL High 5-21 [facility] Comment on above: Performed By: #### 2 284227, 1207864, 6894134, 4773455, 61850384 ####[facility] [address] [place] [address] Urea nitrogen/Creatinine [Mass ratio] 24 No Units High 10-20 [facility] Comment on above: Performed By: #### 2 100134, 3497525, 7884344, 5893462, 63318986 ####[facility] [address] [place] [address] Blood Gas Art, with Lorna Chinchilla, [place] 04-26-2023 a/A Ratio Art 71.70 % Normal >=0.80 [facility] Comment on above: Performed By: #### 4 80031918 ####[facility] [address] [place] [address] AaDO2 Art 29.9 mmHg High 5.0-15.0 [facility] Comment on above: Performed By: #### 4 74421940 ####[facility] [address] [place] [address] Allens Test Positive Normal [facility] Comment on above: Performed By: #### 4 88665538 ####[facility] [address] [place] [address] Base Excess Arterial -4.4 mmol/L Low >=2.8 [facility] Comment on above: Performed By: #### 4 92659808 ####[facility] [address] [place] [address] cCa2+ Art 4.94 mg/dL Normal 4.40-5.30 [facility] Comment on above: Performed By: #### 4 99835334 ####[facility] [address] [place] [address] cCl- Art 113.0 mmol/L High 101.0-111.0 [facility] Comment on above: Performed By: #### 4 85150958 ####[facility] [address] [place] [address] cGlu Art 216 mg/dL High 55-99 [facility] Comment on above: Performed By: #### 4 20180073 ####[facility] [address] [place] [address] cK+ Art 5.2 mmol/L Normal 3.5-5.3 [facility] Comment on above: Performed By: #### 4 21725183 ####[facility] [address] [place] [address] cLac Art .4 mmol/L Low .5-2.2 [facility] Comment on above: Performed By: #### 4 35149028 ####[facility] [address] [place] [address] fountain attendant+ Art 141.0 mmol/L Normal 135.0-145.0 [facility] Comment on above: Performed By: #### 4 00918026 ####[facility] [address] [place] [address] Drawn by randi moreno Invalid Interpretation Code [facility] Comment on above: Performed By: #### 4 65349782 ####[address] [place] [address] FCOHb Art 1.2 % Low 1.5-4.9 [facility] Comment on above: Result Comment: Refe rence rangeNonsmoker <1.5%Smoker <5.0%Heavy Smoker <9.0% Performed By: #### 4 70519374 ####[facility] [address] [place] [address] FIO2 BG 21.0 Invalid Interpretation Code [facility] Comment on above: Performed By: #### 4 30721331 ####[facility] [address] [place] [address] FMetHb Art 0.7 % Normal 0.0-1.9 [facility] Comment on above: Performed By: #### 4 78994594 ####[facility] [address] [place] [address] FO2Hb Art 94.4 % Normal 93.0-100.0 [facility] Comment on above: Performed By: #### 4 91757978 ####[facility] [address] [place] [address] HCO3 (Bld) [Moles/Vol] 20.7 mmol/L Low 22.0-26.0 F [facility] Comment on above: Performed By: #### 4 55025245 ####[facility] [address] [place] [address] Hemoglobin (Bld) [Mass/Vol] 7.8 g/dL Low 12.0-17.0 [facility] Comment on above: Performed By: #### 4 32644861 ####[address] [address] Oxygen saturation in Blood 96.3 % Normal 95.0-100.0 [facility] Comment on above: Performed By: #### 4 59533893 ####[address] [address] P CO2 Arterial 34.7 mmHg Low 35.0-45.0 [facility] Comment on above: Performed By: #### 4 70162318 ####[address] [address] P O2 Arterial 75.9 mmHg Low 80.0-100.0 [facility] Comment on above: Performed By: #### 4 83974450 ####[address] [address] pH Arterial 7.376 Normal 7.350-7.450 [facility] Comment on above: Performed By: #### 4 91307216 ####[address] [address] Sample Site R Radial Normal [facility] Comment on above: Performed By: #### 4 00058131 ####[address] [address] Sample Type Arterial Draw Normal [facility] Comment on above: Performed By: #### 4 94012147 ####[address] [address] CBC w/ Auto Diffon 3 Erythrocyte distribution width (RBC) [Ratio] 13.3 % Normal 10.9-14.2 [facility] Comment on above: Performed By: #### 2 797894, 3621179, 0376765, 4693856, 58785734 ####[facility] [address] [place] [address] Hematocrit (Bld) [Volume fraction] 21.7 % Low 37.7-49.0 [facility] Comment on above: Performed By: #### 2 910568, 9206971, 2085337, 5212666, 49222397 ####[facility] [address] [place] [address] Hemoglobin (Bld) [Mass/Vol] 7.6 g/dL Low 13.5-17.5 [facility] Comment on above: Performed By: #### 2 599777, 7314185, 4938597, 0464996, 04091115 ####[address] [address] MCH (RBC) [Entitic mass] 31.6 pg Normal 27.0-34.0 [facility] Comment on above: Performed By: #### 2 410184, 2796833, 3202409, 3801648, 66360806 ####[facility] [address] [place] [address] MCHC (RBC) [Mass/Vol] 34.8 g/dL Normal 31.4-36.0 [facility] Comment on above: Performed By: #### 2 167298, 9974177, 5979206, 0881552, 03112925 ####[address] [place] [address] MCV (RBC) [Entitic vol] 90.6 fL Normal 80.0-100.0 [facility] Comment on above: Performed By: #### 2 587697, 8541228, 5955289, 1144515, 96325781 ####[address] [place] [address] Platelet mean volume (Bld) [Entitic vol] 6.9 fL Normal 6.4-10.8 [facility] Comment on above: Performed By: #### 2 381781, 9079719, 5764433, 7336584, 70596830 ####[facility] [place] [address] Platelets (Bld) [#/Vol] 327.0 E9/L Normal 150.0-500.0 [facility] Comment on above: Performed By: #### 2 102564, 4404346, 9627864, 2754943, 12604930 ####[facility] [address] [place] [address] RBC (Bld) [#/Vol] 2.4 E12/L Low 4.3-5.9 [facility] Comment on above: Performed By: #### 2 586368, 2624282, 7643985, 2205873, 65087786 ####[facility] [address] [place] [address] WBC corrected for nucl RBC Auto (Bld) [#/Vol] 9.9 E9/L Normal 4.0-11.0 [facility] Comment on above: Performed By: #### 2 231944, 9915496, 4110108, 0067719, 20553358 ####[facility] [address] [place] [address] CHEMISTRYOrdered By: Lab ROP User on 04-26-2023 Glucose [Mass/Vol] 243 mg/dL High 55 - 99 mg/dL [facility] [place] Subsection POC Device SN [id number] Invalid Interpretation Code [facility] [place] [facility] Subsection POC User ID [id number] Invalid Interpretation Code [facility] [place] Subsection POC Username ALLYN STARR Invalid Interpretation Code [facility] [place] Subsection Glucose [Mass/Vol] 238 mg/dL High 55 - 99 mg/dL [facility] [place] Subsection Comment on above: Result Comment: Eleno king RN/ POC Device SN [id number] Invalid Interpretation Code [facility] [place] P[place] Subsection POC User ID [id number] Invalid Interpretation Code [facility] [place] POC Subsection POC Username JOSE M WEBB Invalid Interpretation Code [facility] [place] POC Subsection CHEMISTRYOrdered By: SYSTEM SYSTEM on 04-26-2023 Potassium [Moles/Vol] 5.1 mmol/L Normal 3.5 - 5.3 mmol/L [facility] [place] Remisol Anion gap [Moles/Vol] 6 mmol/L Normal 6 - 16 mEq/L F [facility] Remisol Calcium [Mass/Vol] 8.4 mg/dL Low 8.9 - 11. 1 mg/dL [facility] Chloride [Moles/Vol] 111 mmol/L Normal 101 - 1 11 mmol/L [facility] CO2 [Moles/Vol] 22 mmol/L Normal 21 - 31 mmol/L [facility] Creatinine [Mass/Vol] 2.5 mg/dL High 0.5 - 1.3 mg/dL [facility] GFR/1.73 sq M.predicted among non-blacks MDRD (S/P/Bld) [Vol rate/Area] 29 mL/min/1.73 m2 Low >=59mL/min/1 .73 m2 [facility] [place] Chem S Glucose [Mass/Vol] 196 mg/dL Normal 55 - 199 mg/dL [facility] Magnesium [Mass/Vol] 1.9 mg/dL Normal 1.3 - 2 .4 mg/dL [facility] [place] Remisol Potassium [Moles/Vol] 6.0 mmol/L Invalid Interpretation Code 3.5 - 5.3 mmol/L [facility] [place] Remisol Comment on above: Result Comment: Crit ical Result verified by repeat analysis\Critical Result S_K:6.0 Called to NOE OLIVERA AT 3S by FELIX DILL And Read Back For Confirmation at: 04/26/2023 07:35 Sodium [Moles/Vol] 133 mmol/L Low 135 - 145 mmol/L [facility] [place] Remisol Urea nitrogen [Mass/Vol] 59 mg/dL High 5 - 21 mg/dL [facility] [place] Remisol Urea nitrogen/Creatinine [Mass ratio] 24 mg/mg High 10 - 20 [facility] Capillary Glucose POCon 04-05 Glucose [Mass/Vol] 243 mg/dL High 55-99 [facility] Comment on above: Performed By: #### 2 [id number] ####[facility] [address] [place] [address] Glucose [Mass/Vol] 238 mg/dL High 55-99 [facility] Comment on above: Result Comment: Eleno king RN/ Performed By: #### 2 [id number] ####[facility] [address] [place] [address] Glucose [Mass/Vol] 199 mg/dL High 55-99 [facility] Comment on above: Result Comment: Eleno king RN/ Performed By: #### 2 [id number] ####[facility] [address] [place] [address] Glucose [Mass/Vol] 185 mg/dL High 55-99 [facility] Comment on above: Result Comment: Eleno king RN/ Performed By: #### 2 [id number] ####[facility] [address] [place] [address] FT Blood GasesOrdered By: Mirela Moreno on 04-26-2023 a/A Ratio Art 71.70 % Normal >=0.80% [facility] Resp Auto SS AaDO2 Art 29.9 mm[Hg] High 5.0 - 15.0 mmHg [facility] Resp Auto SS Allens Test Positive (04/26/23 11:12 AM) Normal [facility] Resp Auto SS Base Excess Arterial -4.4 mmol/L Low >=2.8mmol/L FT Resp Auto SS cCa2+ Art 4.94 mg/dL Normal 4.40 - 5.30 mg/dL [facility] Resp Auto SS cCl- Art 113.0 mmol/L High 101.0 - 111.0 mmol/L [facility] Resp Auto SS cGlu Art 216 mg/dL High 55 - 99 mg/dL [facility] Resp Auto SS cK+ Art 5.2 mmol/L Normal 3.5 - 5.3 mmol/L [facility] Resp Auto SS cLac Art 0.4 mmol/L Low 0.5 - 2.2 mmol/L [facility] Resp Auto SS fountain attendant+ Art 141.0 mmol/L Normal 135.0 - 145.0 mmol/L [facility] Resp Auto SS Drawn by randi moreno Invalid Interpretation Code [facility] Resp Auto SS FCOHb Art 1.2 % Low 1.5 - 4.9 % [facility] Resp Auto SS FIO2 BG 21.0 Invalid Interpretation Code [facility] Resp Auto SS FMetHb Art 0.7 % Normal 0.0 - 1.9 % [facility] Resp Auto SS FO2Hb Art 94.4 % Normal 93.0 - 100.0 % [facility] Resp Auto SS HCO3 (Bld) [Moles/Vol] 20.7 mmol/L Low 22.0 - 26.0 mmol/L [facility] [place] Resp Auto SS Hemoglobin (Bld) [Mass/Vol] 7.8 g/dL Low 12.0 - 17.0 gm/dL [facility] Resp Auto SS P CO2 Arterial 34.7 mm[Hg] Low 35.0 - 45.0 mmHg [facility] Resp Auto SS P O2 Arterial 75.9 mm[Hg] Low 80.0 - 100.0 mmHg [facility] Resp Auto SS pH Arterial 7.376 Normal 7.350 - 7.450 [facility] [place] Resp Auto SS Sample Site R Radial (04/26/23 11:12 AM) Normal [facility] [place] Resp Auto SS Sample Type Arterial Draw (04/26/23 11:12 AM) Normal [facility] [place] Resp Auto SS HEMATOLOGYOrdered By: SYSTEM SYSTEM on 04-26-2023 Basophils/100 WBC (Bld) 0.2 % Normal 0.0 - 2.0 % [facility] HemeAutoSS Basophils/Leukocytes Auto (Bld) [Pure # fraction] 0.0 E9/L Normal 0.0 - 0.2 E9/L [facility] HemeAutoSS Eosinophils/100 WBC (Bld) 4.9 % Normal 0.0 - 8.0 % [facility] HemeAutoSS Eosinophils/Leukocytes Auto (Bld) [Pure # fraction] 0.5 E9/L Normal 0.0 - 0.5 E9/L [facility] HemeAutoSS Lymphocytes/100 WBC (Bld) 15.9 % Normal 14.0 - 50.0 % [facility] HemeAutoSS Lymphocytes/Leukocytes Auto (Bld) [Pure # fraction] 1.6 E9/L Normal 1.0 - 4.0 E9/L [facility] HemeAutoSS Monocytes/100 WBC (Bld) 9.8 % Normal 4.0 - 14.0 % [facility] HemeAutoSS Monocytes/Leukocytes Auto (Bld) [Pure # fraction] 1.0 E9/L Normal 0.2 - 1.0 E9/L [facility] HemeAutoSS Neutrophils/100 WBC (Bld) 69.2 % Normal 36.0 - 75.0 % [facility] HemeAutoSS Neutrophils/Leukocytes Auto (Bld) [Pure # fraction] 6.8 E9/L Normal 2.0 - 7.5 E9/L [facility] HemeAutoSS HEMATOLOGYOrdered By: Monet Cantu on 04-26-2023 Erythrocyte distribution width (RBC) [Ratio] 13.3 % Normal 10.9 - 14.2 % [facility] HemeAutoSS Hematocrit (Bld) [Volume fraction] 21.7 % Low 37.7 - 49.0 % [facility] HemeAutoSS Hemoglobin (Bld) [Mass/Vol] 7.6 g/dL Low 13.5 - 17.5 gm/dL [facility] HemeAutoSS MCH (RBC) [Entitic mass] 31.6 pg Normal 27.0 - 34.0 pg [facility] HemeAutoSS MCHC (RBC) [Mass/Vol] 34.8 g/dL Normal 31.4 - 36.0 gm/dL [facility] HemeAutoSS MCV (RBC) [Entitic vol] 90.6 fL Normal 80.0 - 100.0 fL [facility] HemeAutoSS Platelet mean volume (Bld) [Entitic vol] 6.9 fL Normal 6.4 - 10.8 fL [facility] HemeAutoSS Platelets (Bld) [#/Vol] 327.0 E9/L Normal 150. 0 - 500.0 E9/L [facility] HemeAutoSS RBC (Bld) [#/Vol] 2.4 E12/L Low 4.3 - 5.9 E12/L [facility] HemeAutoSS WBC corrected for nucl RBC Auto (Bld) [#/Vol] 9.9 E9/L Normal 4.0 - 11.0 E9/L [facility] [place] HemeAutoSS Insurance Correspondence Off iceon 04-26-2023 Insurance Correspondence Office [id number]#1.00CD :127 Normal [facility] Interdisciplinary Note - Reza e Manageron 04-26-2023 Interdisciplinary Note - Parking Lot Manager Normal [facility] Comment on above: Result Comment: Elec tronically Signed By: Arpita WALKER, Christine\.mirela\Date and Time Signed: 04/26/23 10:50 EDT Interdisciplinary Note - Everett n 04-26-2023 Interdisciplinary Note - OT Normal [facility] Interdisciplinary Note - PTo n 04-26-2023 Interdisciplinary Note - PT Normal [facility] Interdisciplinary Note - Soc ial Workeron 04-26-2023 Interdisciplinary Note - Hosiery Repairer Normal [facility] Magnesiumon 04-26-2023 Magnesium [Mass/Vol] 1.9 mg/dL Normal 1.3-2.4 [facility] Comment on above: Performed By: #### 2 664999, 7748323, 1615238, 8646204, 93478325 ####[facility] [address] [place] [address] Message from Medicareon 04-05 Message from Medicare [id number]#1.00CD: 127 Normal [facility] Monitor Recordon 04-26-2023 Monitor Record [id number]#1.00CD :127 Normal [facility] Monitor Record [id number]#1.00CD :127 Normal [facility] Monitor Record [id number]#1.00CD :127 Normal [facility] Monitor Record [id number]#1.00CD :127 Normal [facility] Monitor Record [id number]#1.00CD :127 Normal [facility] Potassiumon 04-26-2023 Potassium [Moles/Vol] 5.1 mmol/L Normal 3.5-5.3 [facility] Comment on above: Performed By: #### 2 [id number] ####[facility] [address] [place] [address] Progress Note-Physicianon Progress Note-Physician Normal F [facility] Comment on above: Result Comment: Elec tronically Signed By: SABRINA GAMEZ, Paul Hung\.br\Date and Time Signed: 04/26/23 11:05 EDT eGFRon 04-26-2023 GFR/1.73 sq M.predicted among non-blacks MDRD (S/P/Bld) [Vol rate/Area] 29 mL/min/1.73 m2 Low >=59 [facility] Comment on above: Order Comment: Order added by Discern Expert. 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 Kidney failure is indicated at less than 15 mL/min/1.73m2. Performed By: #### 2 484270, 2738726, 7167940, 8766817, 03536988 ####[facility] [address] [place] [address] Auto Diffon 04-25-2023 Basophils/100 WBC (Bld) 0.4 % Normal 0.0-2.0 F [facility] Comment on above: Order Comment: Order Added by Discern Expert. Performed By: #### 2 298640, 1792438, 0448923, 29824657, 1097612, 82299926, 4846219, 8305737, 4538662, 8308071, 5846880, 57133394, 19706898 ####[address] [place] [address] Basophils/Leukocytes Auto (Bld) [Pure # fraction] 0.0 E9/L Normal 0.0-0.2 [facility] Comment on above: Order Comment: Order Added by Discern Expert. Performed By: #### 2 815479, 4070246, 1457415, 67325402, 7535022, 89922626, 6360273, 3688119, 8356873, 0715912, 4789801, 91239216, 66333255 ####[facility] [address] [place] [address] Eosinophils/100 WBC (Bld) 2.6 % Normal 0.0-8.0 [facility] Comment on above: Order Comment: Order Added by Discern Expert. Performed By: #### 2 627914, 6949857, 1607517, 30126306, 8679223, 74675810, 4372935, 8821980, 4787450, 9926126, 7308547, 92788228, 43494081 ####[facility] [address] [place] [address] Eosinophils/Leukocytes Auto (Bld) [Pure # fraction] 0.3 E9/L Normal 0.0-0.5 [facility] Comment on above: Order Comment: Order Added by Discern Expert. Performed By: #### 2 946963, 4907399, 1802843, 14650788, 0660931, 03156108, 5601385, 9463097, 7562847, 8741455, 0151811, 29401106, 52947035 ####[address] [place] [address] Lymphocytes/100 WBC (Bld) 12.3 % Low 14.0-50.0 [facility] Comment on above: Order Comment: Order Added by Discern Expert. Performed By: #### 2 876291, 1009199, 6103388, 08519775, 5443112, 91988867, 3309100, 5941067, 2778890, 0516210, 1445821, 90287342, 82695342 ####[address] [place] [address] Lymphocytes/Leukocytes Auto (Bld) [Pure # fraction] 1.4 E9/L Normal 1.0-4.0 [facility] Comment on above: Order Comment: Order Added by Discern Expert. Performed By: #### 2 951132, 1565513, 7177167, 59704570, 4785838, 58229057, 3142890, 4309584, 4474348, 4905624, 7567172, 20354676, 09686059 ####[address] [place] [address] Monocytes/100 WBC (Bld) 10.4 % Normal 4.0-14.0 F [facility] Comment on above: Order Comment: Order Added by Discern Expert. Performed By: #### 2 959558, 1300775, 0216155, 57562895, 4781201, 59122868, 9939998, 2471323, 8512358, 5804717, 2762266, 83051710, 19666580 ####[address] [place] [address] Monocytes/Leukocytes Auto (Bld) [Pure # fraction] 1.2 E9/L High 0.2-1.0 [facility] Comment on above: Order Comment: Order Added by Discern Expert. Performed By: #### 2 271761, 8957658, 7790011, 72146261, 6867429, 08395945, 6506103, 7439809, 4775372, 5729874, 5390053, 09696237, 24875341 ####[facility] [address] [place] [address] Neutrophils/100 WBC (Bld) 74.3 % Normal 36.0-75.0 [facility] Comment on above: Order Comment: Order Added by Discern Expert. Performed By: #### 2 371340, 8652722, 3539994, 27480160, 2259021, 13238690, 2698890, 5336194, 1717381, 2795099, 7132238, 40375145, 52835392 ####[address] [place] [address] Neutrophils/Leukocytes Auto (Bld) [Pure # fraction] 8.6 E9/L High 2.0-7.5 [facility] Comment on above: Order Comment: Order Added by Discern Expert. Performed By: #### 2 863663, 8901051, 6767977, 88724290, 1941708, 23379272, 3232170, 2567832, 7790986, 9263633, 9615884, 19994608, 96928933 ####[facility] [address] [place] [address] BMPon 04-25-2023 Creatinine [Mass/Vol] 2.9 mg/dL High 0.5-1.3 [facility] Comment on above: Performed By: #### 2 292586, 1788060, 4556072, 73900695, 0685139, 12226597, 7582363, 1786703, 0273155, 0786063, 7478170, 83345467, 24298647 ####[facility] [address] [place] [address] Urea nitrogen [Mass/Vol] 67 mg/dL High - [facility] Comment on above: Performed By: #### 2 762048, 1421742, 8199056, 79664356, 3958561, 65552802, 9206355, 3269878, 3525092, 8784423, 7038342, 71184698, 77744101 ####[facility] [address] [place] [address] Urea nitrogen/Creatinine [Mass ratio] 23 No Units High 10-20 [facility] Comment on above: Performed By: #### 2 996688, 2237148, 5132747, 48209552, 8639067, 33275859, 3088904, 4582880, 7614781, 7003854, 0667526, 42465170, 93781134 ####[facility] [address] [place] [address] Anion gap [Moles/Vol] 13 mmol/L Normal 6-16 [facility] Comment on above: Performed By: #### 2 543410, 3772504, 0883487, 19950569, 9657795, 25828857, 9925398, 1533989, 4372135, 7193222, 0976130, 08249174, 77321715 ####[facility] [address] [place] [address] Calcium [Mass/Vol] 8.3 mg/dL Low 8.9-11.1 [facility] Comment on above: Performed By: #### 2 536529, 3303696, 0558668, 67682828, 8331183, 84120477, 3637625, 0061301, 1126332, 4086103, 1132482, 48967814, 20516227 ####[facility] [address] [place] [address] Chloride [Moles/Vol] 107 mmol/L Normal 101-111 [facility] Comment on above: Performed By: #### 2 145911, 6197634, 8623356, 71071988, 9581891, 04121332, 7666626, 8803226, 7351575, 7448880, 7318398, 54998048, 67366846 ####[facility] [address] [place] [address] CO2 [Moles/Vol] 18 mmol/L Low 21-31 [facility] Comment on above: Performed By: #### 2 223080, 3084994, 3455590, 86956040, 2594156, 12307001, 1303116, 6337558, 4951161, 0104038, 2221584, 54679424, 60862083 ####[facility] [address] [place] [address] Glucose [Mass/Vol] 245 mg/dL High 55-199 [facility] Comment on above: Result Comment: If t his glucose result represents a fasting glucose, interpretation should refer to the following reference range: 55-99 mg/dL Performed By: #### 2 193729, 9257683, 1379287, 77730977, 6492672, 15005355, 8752550, 9717259, 9819492, 8108721, 5129853, 47706617, 18001354 ####[facility] [address] [place] [address] Potassium [Moles/Vol] 5.3 mmol/L Normal 3.5-5.3 [facility] Comment on above: Performed By: #### 2 841529, 2040678, 0086888, 27627728, 2714541, 28666636, 6107095, 7927729, 7016206, 8918497, 6382011, 73377126, 86648788 ####[facility] [address] [place] [address] Sodium [Moles/Vol] 133 mmol/L Low 135-145 [facility] Comment on above: Performed By: #### 2 269141, 5211573, 8168042, 20515893, 6561297, 01195714, 4196468, 0662167, 4536797, 4440378, 3759958, 13638823, 82889481 ####[facility] [address] [place] [address] CBC w/ Auto Diffon 3 Erythrocyte distribution width (RBC) [Ratio] 13.4 % Normal 10.9-14.2 [facility] Comment on above: Performed By: #### 2 852316, 4490034, 8904422, 06911398, 2829967, 44530347, 2089668, 2091608, 7146354, 0063261, 2891635, 43324462, 37708777 ####[facility] [address] [place] [address] Hematocrit (Bld) [Volume fraction] 22.2 % Low 37.7-49.0 [facility] Comment on above: Performed By: #### 2 003413, 8547548, 6710108, 53916900, 6360126, 43066080, 4906730, 3166305, 3440123, 9641959, 5595684, 34599802, 49075321 ####[address] [address] Hemoglobin (Bld) [Mass/Vol] 7.4 g/dL Low 13.5-17.5 [facility] Comment on above: Performed By: #### 2 799914, 7445959, 9408214, 91531968, 9754284, 85643705, 4182252, 4604597, 1639357, 3758866, 9849451, 00081919, 34741395 ####[facility] [address] [place] [address] MCH (RBC) [Entitic mass] 30.9 pg Normal 27.0-34.0 [facility] Comment on above: Performed By: #### 2 953496, 5855630, 3264392, 45974153, 3219945, 03886783, 3989208, 2743028, 8508490, 3095550, 9181257, 54547492, 46567987 ####[address] [place] [address] MCHC (RBC) [Mass/Vol] 33.3 g/dL Normal 31.4-36.0 [facility] Comment on above: Performed By: #### 2 093045, 6046492, 6237224, 58005715, 8204419, 15897864, 6244639, 2226391, 5022117, 5671512, 6103966, 18802068, 90709030 ####[facility] [address] [place] [address] MCV (RBC) [Entitic vol] 92.6 fL Normal 80.0-100.0 F [facility] Comment on above: Performed By: #### 2 345742, 3246751, 6068574, 65513666, 8227735, 41958523, 7131126, 4210485, 1071569, 2438037, 1687939, 34549169, 46967119 ####[facility] [address] [place] [address] Platelet mean volume (Bld) [Entitic vol] 7.0 fL Normal 6.4-10.8 [facility] Comment on above: Performed By: #### 2 756484, 7609852, 9070360, 54243754, 0128867, 90779303, 3029309, 3821181, 9415992, 5570981, 3396591, 88475776, 30572219 ####[facility] [address] [place] [address] Platelets (Bld) [#/Vol] 366.0 E9/L Normal 150.0-500.0 [facility] Comment on above: Performed By: #### 2 187298, 3352795, 0396802, 63867543, 0465244, 86405292, 2462371, 3443027, 2115610, 6231003, 9141308, 59360270, 62659856 ####[facility] [address] [place] [address] RBC (Bld) [#/Vol] 2.4 E12/L Low 4.3-5.9 [facility] Comment on above: Performed By: #### 2 122323, 5280487, 7724309, 47247546, 2372108, 52225003, 6384343, 1884089, 9807884, 0055909, 3062108, 87017145, 96194434 ####[facility] [address] [place] [address] WBC corrected for nucl RBC Auto (Bld) [#/Vol] 11.6 E9/L High 4.0-11.0 [facility] Comment on above: Performed By: #### 2 847833, 3271621, 7573286, 56288060, 1619623, 88558433, 5435029, 3045750, 8891768, 5382280, 3126702, 94944534, 12324095 ####[facility] [address] [place] [address] CEFTAZIDIME:SUSC:PT:ISOLATE: ORDQN:MICOrdered By: Kristan Gudino on 04-25-2023 cefTAZidime STEPHIE [Susc] >100,000 cfu/ml P roteus mirabilis ESBL ESBL Result called to Dr. Bennett by [facility] and results read back for confirmation on 04/27/2023 08:25:[address] [facility] CHEMISTRYOrdered By: SYSTEM SYSTEM on 04-25-2023 Troponin I.cardiac [Mass/Vol] 10.80 pg/mL Low 15.90 - 38.40 pg/mL FT Remisol Troponin I.cardiac [Mass/Vol] 12.20 pg/mL Low 15.90 - 38.40 pg/mL [facility] LDH [Catalytic activity/Vol] 122 [iU]/d Normal 93 - 218 Int._Unit/L [facility] Remisol Troponin I.cardiac [Mass/Vol] 11.70 pg/mL Low 15.90 - 38.40 pg/mL [facility] Remisol Anion gap [Moles/Vol] 13 mmol/L Normal 6 - 16 mEq/L F [facility] Remisol Calcium [Mass/Vol] 8.3 mg/dL Low 8.9 - 11. 1 mg/dL [facility]isol Chloride [Moles/Vol] 107 mmol/L Normal 101 - 1 11 mmol/L [facility] CO2 [Moles/Vol] 18 mmol/L Low 21 - 31 mmol/L [facility] Remisol Cobalamin (Vitamin B12) [Mass/Vol] 1100 pg/mL Normal 50 - 1500 pg/mL [facility] Remisol Creatinine [Mass/Vol] 2.9 mg/dL High 0.5 - 1.3 mg/dL [facility] Ferritin [Mass/Vol] 788 ng/mL High 24 - 336 ng/mL [facility] Folate [Mass/Vol] 9.7 ng/mL Normal >=6.7ng/mL [facility] Remisol GFR/1.73 sq M.predicted among non-blacks MDRD (S/P/Bld) [Vol rate/Area] 24 mL/min/1.73 m2 Low >=59mL/min/1 .73 m2 [facility] Chem S Glucose [Mass/Vol] 245 mg/dL High 55 - 199 mg/dL [facility] Remisol Iron [Mass/Vol] 49 ug/dL Normal 35 - 153 mcg/dL [facility] Rem[facility] Iron binding capacity [Mass/Vol] 198 ug/dL Low 250 - 400 mcg/dL [facility]isol Lactate [Mass/Vol] 1.2 mmol/L Normal 0.5 - 2.2 mmol/L [facility] Sodium [Moles/Vol] 133 mmol/L Low 135 - 145 mmol/L [facility]isol Transferrin [Mass/Vol] 141 mg/dL Low 200 - 370 mg/dL [facility]isol TSH Qn 2.18 m[IU]/L Normal 0.34 - 5.60 mcIU/mL [facility] Urea nitrogen [Mass/Vol] 67 mg/dL High 5 - 21 mg/dL [facility] Urea nitrogen/Creatinine [Mass ratio] 23 mg/mg High 10 - [address] [facility] [address] Abdomen/Pelvis w/o Contra ston 04-25-2023 CT Abdomen/Pelvis w/o Contrast Normal [facility] Capillary Glucose POCon 04-05 Glucose [Mass/Vol] 155 mg/dL High 55-99 [facility] Comment on above: Result Comment: Eleno king RN/ Performed By: #### 2 [id number] ####[facility] [address] [place] [address] Glucose [Mass/Vol] 166 mg/dL High 55-99 [facility] Comment on above: Result Comment: Eleno king RN/ Performed By: #### 2 [id number] ####[facility] [address] [place] [address] Consent for Treatmenton 04-05 Consent for Treatment [id number]#1.00CD: 127 Normal [facility] ED Clinical Summaryon 2022 ED Clinical Summary Normal [facility] ED Note-Physicianon 04-25-20 23 ED Note-Physician Normal [facility] Comment on above: Result Comment: Elec tronically Signed By: Carter Osborn PA-C\.br\Date and Time Signed: 04/25/23 14:36 EDT\.br\Electronically Co-Signed By: Zoe Sanon M.D.\.br\Date and Time Co-Signed: 04/25/23 15:00 EDT ED Patient Education Noteon 04-25-2023 ED Patient Education Note Normal [facility] ED Patient Summaryon 023 ED Patient Summary Normal [facility] Ferritinon 04-25-2023 Ferritin [Mass/Vol] 788 ng/mL High 24-336 [facility] Comment on above: Result Comment: NORM ALS MEN <30 YRS 16-132 ng/mL MEN >30 YRS 8-338 ng/mL WOMEN (PREMEN) 6-104 ng/mL WOMEN (POSTMEN) 12-210 ng/mL Performed By: #### 2 437575, 2917567, 4396818, 98521168, 2366789, 17119770, 4990528, 3932569, 5263375, 9310419, 5301282, 16420790, 54868496 ####[facility] [address] [place] [address] Folateon 04-25-2023 Folate [Mass/Vol] 9.7 ng/mL Normal >=6.7 [facility] Comment on above: Performed By: #### 2 197949, 9191108, 3101386, 70808906, 8222431, 74436609, 8054406, 8844621, 5990880, 9930254, 8187103, 32398797, 10935049 ####[facility] [address] [place] [address] HEMATOLOGYOrdered By: SYSTEM SYSTEM on 04-25-2023 Basophils/100 WBC (Bld) 0.4 % Normal 0.0 - 2.0 % [facility] HemeAutoSS Basophils/Leukocytes Auto (Bld) [Pure # fraction] 0.0 E9/L Normal 0.0 - 0.2 E9/L [facility] Eosinophils/100 WBC (Bld) 2.6 % Normal 0.0 - 8.0 % [facility] Eosinophils/Leukocytes Auto (Bld) [Pure # fraction] 0.3 E9/L Normal 0.0 - 0.5 E9/L [facility] Lymphocytes/100 WBC (Bld) 12.3 % Low 14.0 - 50.0 % [facility] Lymphocytes/Leukocytes Auto (Bld) [Pure # fraction] 1.4 E9/L Normal 1.0 - 4.0 E9/L [facility] Monocytes/100 WBC (Bld) 10.4 % Normal 4.0 - 14.0 % [facility] Monocytes/Leukocytes Auto (Bld) [Pure # fraction] 1.2 E9/L High 0.2 - 1.0 E9/L [facility] Neutrophils/100 WBC (Bld) 74.3 % Normal 36.0 - 75.0 % [facility] Neutrophils/Leukocytes Auto (Bld) [Pure # fraction] 8.6 E9/L High 2.0 - 7.5 E9/L [facility] HEMATOLOGYOrdered By: Thai Colby on 04-25-2023 Erythrocyte distribution width (RBC) [Ratio] 13.4 % Normal 10.9 - 14.2 % [facility] Hematocrit (Bld) [Volume fraction] 22.2 % Low 37.7 - 49.0 % [facility] Hemoglobin (Bld) [Mass/Vol] 7.4 g/dL Low 13.5 - 17.5 gm/dL [facility] MCH (RBC) [Entitic mass] 30.9 pg Normal 27.0 - 34.0 pg [facility] MCHC (RBC) [Mass/Vol] 33.3 g/dL Normal 31.4 - 36.0 gm/dL [facility] MCV (RBC) [Entitic vol] 92.6 fL Normal 80.0 - 100.0 fL [facility] Platelet mean volume (Bld) [Entitic vol] 7.0 fL Normal 6.4 - 10.8 fL [facility] Platelets (Bld) [#/Vol] 366.0 E9/L Normal 150. 0 - 500.0 E9/L [facility] RBC (Bld) [#/Vol] 2.4 E12/L Low 4.3 - 5.9 E12/L [facility] Reticulocytes/100 RBC (Bld) 1.2 % Normal 0.5 - 1.5 % [facility] Comment on above: Result Comment: This Reticulocyte Count Has Been Corrected For Anemia WBC corrected for nucl RBC Auto (Bld) [#/Vol] 11.6 E9/L High 4.0 - 11.0 E9/L [facility] Ironon 04-25-2023 Iron [Mass/Vol] 49 microgram/dL Normal 35-153 [facility] Comment on above: Performed By: #### 2 [id number], [id number], [id number], [id number], [id number], [id number], [id number], [id number], [id number], [id number], [id number], [id number], [id number] ####[id number] [place] [address] LDHon 04-25-2023 LDH [Catalytic activity/Vol] 122 Int._Unit/L Normal 93-218 [facility] Comment on above: Order Comment: add o n if possible Performed By: #### 2 [id number] ####[id number] [place] [address] Lactic Acidon 04-25-2023 Lactate [Mass/Vol] 1.2 mmol/L Normal 0.5-2.2 [facility] Comment on above: Performed By: #### 2 995063, 5192830, 5851549, 56710114, 8939099, 48419703, 1521064, 8619632, 0812878, 6094829, 1149191, 61626721, 65397039 ####[facility] [address] [place] [address] No Panel InformationOrdered By: [facility] MICRO[facility] on 04-25-2023 Blood Culture Charcoal No growth at 2 da ys. Final to follow at [address] [facility] Blood Culture Charcoal No growth at 2 da ys. Final to follow at [address] 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 Prescriptions will not be filled unless you are compliant with your follow up appointments or have a follow up appointment scheduled as per instruction of your physician. Refills should be requested at the time of your visit. Heart cath discussed with patient NTG Follow up in months Sent to ER The provider reviewed the following test(s) and result(s) with the patient: pharmacologic stress test Chief Complaint MIKAYLA PAPPAS is being seen for [facility] d/c march. History of Present Illness Patient is here for follow-up from recent hospitalization to review the results of his recent stress test. Patient is known to have history of Rqyhu-Vtybhayft-Uyvkl with prior ablation in [place]. He has a history of bipolar disorder and he is not a very good historian. He reports previous history of coronary artery disease and PCI but details lacking. He was in the hospital recently for some chest pain and his stress test shows an area of mild inferior wall ischemia elected for medical therapy considering his renal dysfunction. The patient brought from a local assisted. On presentation he appears somehow lethargic and minimally responsive. He was complaining of aches and pain. Accompanied staff indicated that the patient was given a [place] prior to his office visit. Patient blood pressure noted to be 80/60. The patient complaining of pain around his Todd catheter. Difficult to obtain information from the physician because of his general condition and the impact of [place]. Several blood pressure were taken the patient remains in the 80/60. We elected to send the patient to the emergency room considering unexplained hypotension. Assessment 1. Previous evaluation for chest pain with positive stress test for mild area of inferior wall ischemia. I reviewed treatment option with the patient during recent hospitalization and today and I elected for conservative management considering his renal dysfunction and the size of the ischemia in addition the patient is very inactive 2. Symptomatic hypotension of unclear etiology 3. Prior history of stroke 4. History of Cnkgs-Xpnkvynvk-Lvvvp and prior ablation in the [place] detail is lacking 5. Bilateral above-knee amputation 6. Diabetes mellitus 7. Hyperlipidemia 8. Bipolar disorder Plan 1. Concerning the patient has symptomatic hypotension we elected to send him to the emergency room. I discussed the case with the emergency room staff and the squad was called and the patient was transported in stable condition 2. I did review the results of his stress test and treatment option with him briefly and I continue to recommend conservative management considering his comorbidities and renal dysfunction and the size of ischemia 3. Follow-up after discharge Surgical History Problems History of Ablation History of Lower extremity amputation above knee Current Meds Medication NameInstruction Colace 100 MG Oral CapsuleTAKE 1 CAPSULE TWICE DAILY. Cyanocobalamin TABSTAKE 1 TABLET DAILY DIRECTED. Cymbalta 30 MG Oral Capsule Delayed Release ParticlesTAKE 1 CAPSULE Daily Cymbalta 60 MG Oral Capsule Delayed Release ParticlesTAKE 1 CAPSULE Daily Ergocalciferol 1.25 MG (37293 UT) Oral CapsuleTAKE 1 CAPSULE Daily Gabapentin 300 MG TABSTAKE 1 TABLET Bedtime Isosorbide Mononitrate ER 30 MG Oral Tablet Extended Release 24 HourTAKE 1 TABLET DAILY. Lantus 100 UNIT/ML Subcutaneous SolutionUSE DIRECTED. Lidocaine HCl 4 % PTCHUSE DIRECTED Lipitor 80 MG Oral TabletTAKE 1 TABLET AT BEDTIME. Lisinopril 20 MG Oral TabletTAKE 1 TABLET DAILY. metFORMIN HCl - 500 MG Oral TabletTAKE 1 TABLET TWICE DAILY WITH MEALS. Metoprolol Succinate ER 100 MG Oral Tablet Extended Release 24 HourTake 1 tablet daily Milk of Magnesia 400 MG/5ML Oral SuspensionUSE DIRECTED. NovoLOG 100 UNIT/ML Injection SolutionUSE DIRECTED Omeprazole 20 MG Oral Capsule Delayed ReleaseTAKE 1 CAPSULE Daily Promethazine HCl - 25 MG Oral TabletTAKE 1 TABLET EVERY 6 TO 8 HOURS NEEDED NAUSEA. Allergies Medication Depakote Adverse Reaction; Recorded By: Aleena Rice; 04/25/2023 10:42:38 AM Dilantin Adverse Reaction; Recorded By: Aleena Rice; 04/25/2023 10:42:38 AM Social History Problems Never a smoker No alcohol use No caffeine use No illicit drug use Review of Systems Constitution[employer] (more content not included)... Normal [facility] Pre-Arrival Noteon 3 Pre-Arrival Note Normal [facility] Retic Counton 04-25-2023 Reticulocytes/100 RBC (Bld) 1.2 % Normal 0.5-1.5 [facility] Comment on above: Result Comment: This Reticulocyte Count Has Been Corrected For Anemia Performed By: #### 2 080911, 4294287, 8806755, 42261111, 1975632, 12036581, 9850776, 9968770, 9330349, 6013732, 8053180, 02490588, 86768915 ####[facility] [address] [place] [address] TIBC Calculatedon 04-25-2023 Iron binding capacity [Mass/Vol] 198 microgram/dL Low 250-400 [facility] Comment on above: Performed By: #### 2 501488, 0369445, 7766393, 65025253, 1069564, 41866136, 6438874, 9098013, 0974189, 6374962, 0473658, 58575522, 05246576 ####[facility] [address] [place] [address] Transferrin [Mass/Vol] 141 mg/dL Low 200-370 [facility] Comment on above: Performed By: #### 2 592583, 0426968, 3870226, 29158810, 2519454, 92904961, 4507409, 8169817, 5417503, 9351268, 3948346, 19065502, 41411634 ####[facility] [address] [place] [address] TSH With T4fr Reflexon 04-25 TSH Qn 2.18 m[IU]/L Normal 0.34-5.60 [facility] Comment on above: Performed By: #### 2 210251, 0306800, 3003021, 99637431, 1928391, 41347247, 4304821, 7884675, 6494100, 9896470, 3209660, 78103033, 60831931 ####[facility] [address] [place] [address] Troponin 0 Hr.on 04-25-2023 Troponin I.cardiac [Mass/Vol] 14.30 pg/mL Low 15.90-38.40 [facility] Comment on above: Result Comment: The 95% CI (Confidence Interval) PPV (Positive Predictive Value) for myocardial infarction in females is 38 pg/mL, in males 51 pg/mL. The results should be used in conjunction with clinical conditions of myocardial infarction.(Access High Sensitivity Troponin I Instructions For Use, [employer], June 2018) Performed By: #### 2 349790, 1271615, 1362174, 35078710, 6351407, 20941502, 4158002, 7018565, 8617882, 2268878, 3741467, 74129717, 76328430 ####[facility] [address] [place] [address] Troponin 3 Hr.on 04-25-2023 Troponin I.cardiac [Mass/Vol] 11.70 pg/mL Low 15.90-38.40 [facility] Comment on above: Result Comment: The 95% CI (Confidence Interval) PPV (Positive Predictive Value) for myocardial infarction in females is 38 pg/mL, in males 51 pg/mL. The results should be used in conjunction with clinical conditions of myocardial infarction.(Access High Sensitivity Troponin I Instructions For Use, [employer], June 2018) Performed By: #### 1 7177597 ####[address] [place] [address] Troponin 6 Hr.on 04-25-2023 Troponin I.cardiac [Mass/Vol] 12.20 pg/mL Low 15.90-38.40 [facility] Comment on above: Result Comment: The 95% CI (Confidence Interval) PPV (Positive Predictive Value) for myocardial infarction in females is 38 pg/mL, in males 51 pg/mL. The results should be used in conjunction with clinical conditions of myocardial infarction.(Access High Sensitivity Troponin I Instructions For Use, [employer], June 2018) Performed By: #### 1 7480205 ####[address] [address] Troponin 9 Hr.on 04-25-2023 Troponin I.cardiac [Mass/Vol] 10.80 pg/mL Low 15.90-38.40 [facility] Comment on above: Result Comment: The 95% CI (Confidence Interval) PPV (Positive Predictive Value) for myocardial infarction in females is 38 pg/mL, in males 51 pg/mL. The results should be used in conjunction with clinical conditions of myocardial infarction.(Access High Sensitivity Troponin I Instructions For Use, [employer], June 2018) Performed By: #### 1 3239476 ####[address] [address] UA With Cult Reflexon 2022 Bacteria LM Ql (Urine sed) 3+ /HPF Abnormal Trace [facility] Comment on above: Performed By: #### 1 2619489, 1675553 ####[address] [address] Bilirubin Ql (U) Negative Normal Negative [facility] Comment on above: Performed By: #### 1 2490290, 9627970 ####[address] [address] Calcium oxalate crystals LM Ql (Urine sed) Present Normal [facility] Comment on above: Performed By: #### 1 4942876, 6049915 ####[address] [address] Clarity (U) CLOUDY Abnormal Clear [facility] Comment on above: Performed By: #### 1 3659466, 7120782 ####[facility] [address] [place] [address] Color (U) YELLOW Normal Yellow [facility] Comment on above: Performed By: #### 1 5323782, 8168152 ####[facility] [address] [place] [address] Crystals LM Ql (Urine sed) Present Normal [facility] Comment on above: Performed By: #### 1 3786278, 6951233 ####[facility] [address] [place] [address] Epithelial cells.squamous LM.HPF (Urine sed) [#/Area] 0-2 Normal 0-2 [facility] Comment on above: Performed By: #### 1 2998408, 0515597 ####[facility] [address] [place] [address] Glucose Test strip (U) [Mass/Vol] Negative Normal Negative [facility] Comment on above: Performed By: #### 1 5527488, 6344251 ####[facility] [address] [place] [address] Hemoglobin Ql (U) 2+ Abnormal Negative [facility] Comment on above: Performed By: #### 1 9044358, 2952880 ####[facility] [address] [place] [address] Ketones (U) [Mass/Vol] Negative Normal Negative Fi [facility] Comment on above: Performed By: #### 1 7458427, 2688558 ####[facility] [address] [place] [address] [place].plasma/[place]. RBC (Bld) [Mass ratio] 4-20 Normal 0-3 [facility] Comment on above: Performed By: #### 1 1899264, 7814521 ####[facility] [address] [place] [address] Mucus Ql (Urine sed) TRACE Normal [facility] Comment on above: Performed By: #### 1 0906793, 9325780 ####[facility] [address] [place] [address] Nitrite Ql (U) Negative Normal Negative [facility] Comment on above: Performed By: #### 1 5294124, 9823466 ####[address] [address] pH (U) 8.5 [pH] Invalid Interpretation Code 5.0-9.0 [facility] Comment on above: Performed By: #### 1 6359181, 5558053 ####[address] [address] Protein (U) [Mass/Vol] 2+ Abnormal Negative Fi [facility] Comment on above: Performed By: #### 1 0343690, 2961721 ####[place] [address] Specific gravity (U) [Rel density] 1.010 Invalid Interpretation Code 1.005-1.030 [facility] Comment on above: Performed By: #### 1 3391480, 9330776 ####[place] [address] Type of Urine collection method Todd Normal [facility] Comment on above: Performed By: #### 1 0397596, 1655645 ####[address] [address] Urobilinogen Qn (U) 0.2 {Génesis'U}/dL Normal 0.0-1.0 [facility] Comment on above: Performed By: #### 1 1499085, 1256408 ####[address] [address] WBC Auto Ql (U) 3+ Abnormal Negative [facility] Comment on above: Performed By: #### 1 2428271, 1275892 ####[address] [address] WBC LM.HPF (Urine sed) [#/Area] /[HPF] Abnormal 0-5 [facility] Comment on above: Performed By: #### 1 2124184, 9893484 ####[facility] [address] [place] [address] URINALYSISOrdered By: Yuli Baptiste on 04-25-2023 Bacteria LM Ql (Urine sed) 3+ /HPF Invalid Interpretation Code Trace/HPF [facility] UA Auto SS Bilirubin Ql (U) Negative (04/25/23 12:10 PM) Normal Negative [facility] UA Auto SS Calcium oxalate crystals LM Ql (Urine sed) Present (04/25/23 12:10 PM) Normal [facility] UA Auto SS Clarity (U) Cloudy *ABN* (04/25/23 12:10 PM) Invalid Interpretation Code Clear [facility] UA Auto SS Color (U) Yellow (04/25/23 12:10 PM) Normal Yellow [facility] UA Auto SS Crystals LM Ql (Urine sed) Present (04/25/23 12:10 PM) Normal [facility] UA Auto SS Epithelial cells.squamous LM.HPF (Urine sed) [#/Area] 0-2 /HPF Normal 0-2/HPF [facility] UA Auto SS Glucose Test strip (U) [Mass/Vol] Negative (04/25/23 12:10 PM) Normal Negative [facility] UA Auto SS Hemoglobin Ql (U) 2+ *ABN* (04/25/23 12:10 PM) Invalid Interpretation Code Negative [facility] UA Auto SS Ketones (U) [Mass/Vol] Negative (04/25/23 12:10 PM) Normal Negative [facility] UA Auto SS [place].plasma/[place]. RBC (Bld) [Mass ratio] 4-20 /HPF Normal 0-3/HPF [facility] UA Auto SS Mucus Ql (Urine sed) Trace (04/25/23 12:10 PM) Normal [facility] UA Auto SS Nitrite Ql (U) Negative (04/25/23 12:10 PM) Normal Negative [facility] UA Auto SS pH (U) 8.5 *NA* (04/25/23 12:10 PM) Invalid Interpretation Code 5.0 - 9.0 [facility] UA Auto SS Protein (U) [Mass/Vol] 2+ *ABN* (04/25/23 12:10 PM) Invalid Interpretation Code Negative [facility] UA Auto SS Specific gravity (U) [Rel density] 1.010 *NA* (04/25/23 12:10 PM) Invalid Interpretation Code 1.005 - 1.030 [facility] UA Auto SS UA Spec Desc Todd (04/25/23 12:10 PM) Normal [facility] [place] UA Auto SS Urobilinogen Qn (U) 0.9516156 {Génesis'U}/dL Normal 0.0 - 1.0 EU/dL [facility] [place] UA Auto SS WBC Auto Ql (U) 3+ *ABN* (04/25/23 12:10 PM) Invalid Interpretation Code Negative [facility] [place] UA Auto SS WBC LM.HPF (Urine sed) [#/Area] /[HPF] Invalid Interpretation Code 0-5/HPF [facility] [place] UA Auto SS Vit B12on 04-25-2023 Cobalamin (Vitamin B12) [Mass/Vol] 1100 pg/mL Normal 50-1500 [facility] Comment on above: Performed By: #### 2 928527, 7777393, 7363414, 45784426, 8708609, 30834654, 6398679, 1937357, 6423542, 7576529, 8475217, 38463799, 41162597 ####[facility] [address] [place] [address] XR Chest Single Viewon 04-25 XR Chest Single View Normal Fish er [facility] cefTAZidime STEPHIE [[facility]]Ordere d By: Kristan Gudino on 04-25-2023 Proteus mirabilis ESBL Proteus mirabilis ESBL [facility] eGFRon 04-25-2023 GFR/1.73 sq M.predicted among non-blacks MDRD (S/P/Bld) [Vol rate/Area] 24 mL/min/1.73 m2 Low >=59 [facility] Comment on above: Order Comment: Order added by Discern Expert. 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 Kidney failure is indicated at less than 15 mL/min/1.73m2. Performed By: #### 2 294161, 4573615, 2866993, 08428898, 8695985, 39304068, 9969482, 4127730, 6092272, 7226048, 1425544, 30620753, 77250424 ####[facility] [address] [place] [address] Stress EKG Tracingson 2022 Stress EKG Tracings [id number]#[id number]: 127 Normal [facility] Interdisciplinary Note - Soc ial Workeron 03-27-2023 Interdisciplinary Note - Hosiery Repairer Normal [facility] Auto Diffon 03-26-2023 Basophils/100 WBC (Bld) 0.2 % Normal 0.0-2.0 F [facility] Comment on above: Order Comment: Order Added by Discern Expert. Performed By: #### 2 217266, 5842184, 81003086, 6364285, 7683404, 6560168, 38533324, 21099852 ####[facility] [address] [place] [address] Basophils/Leukocytes Auto (Bld) [Pure # fraction] 0.0 E9/L Normal 0.0-0.2 [facility] Comment on above: Order Comment: Order Added by Discern Expert. Performed By: #### 2 510025, 6441255, 52459272, 3528517, 8008379, 1058358, 33903102, 28054418 ####[facility] [address] [place] [address] Eosinophils/100 WBC (Bld) 2.4 % Normal 0.0-8.0 [facility] Comment on above: Order Comment: Order Added by Discern Expert. Performed By: #### 2 625283, 3582785, 01655604, 4698944, 4408813, 4720059, 88497337, 73121641 ####[facility] [address] [place] [address] Eosinophils/Leukocytes Auto (Bld) [Pure # fraction] 0.2 E9/L Normal 0.0-0.5 [facility] Comment on above: Order Comment: Order Added by Discern Expert. Performed By: #### 2 869348, 7111995, 58955898, 6932194, 2118448, 9112860, 00409696, 34016351 ####[address] [place] [address] Lymphocytes/100 WBC (Bld) 16.9 % Normal 14.0-50.0 [facility] Comment on above: Order Comment: Order Added by Discern Expert. Performed By: #### 2 422652, 8882718, 14068965, 6875214, 4506540, 9561030, 74911542, 81320825 ####[address] [place] [address] Lymphocytes/Leukocytes Auto (Bld) [Pure # fraction] 1.6 E9/L Normal 1.0-4.0 [facility] Comment on above: Order Comment: Order Added by Discern Expert. Performed By: #### 2 750924, 2861786, 11642228, 7272307, 1770819, 4299907, 80833719, 26862149 ####[address] [place] [address] Monocytes/100 WBC (Bld) 10.4 % Normal 4.0-14.0 [facility] Comment on above: Order Comment: Order Added by Discern Expert. Performed By: #### 2 127337, 4783206, 10457057, 3708620, 1851379, 1785751, 57101433, 63542322 ####[address] [place] [address] Monocytes/Leukocytes Auto (Bld) [Pure # fraction] 1.0 E9/L Normal 0.2-1.0 [facility] Comment on above: Order Comment: Order Added by Discern Expert. Performed By: #### 2 524584, 6435656, 87630945, 0816690, 0660589, 5325718, 90090033, 04060445 ####[address] [place] [address] Neutrophils/100 WBC (Bld) 70.1 % Normal 36.0-75.0 [facility] Comment on above: Order Comment: Order Added by Discern Expert. Performed By: #### 2 632619, 1953624, 64701307, 1174217, 9349312, 5537042, 73988160, 28174521 ####[facility] [address] [place] [address] Neutrophils/Leukocytes Auto (Bld) [Pure # fraction] 6.6 E9/L Normal 2.0-7.5 [facility] Comment on above: Order Comment: Order Added by Discern Expert. Performed By: #### 2 679201, 4706627, 19690171, 1921718, 2705897, 6860945, 47419935, 44054680 ####[facility] [address] [place] [address] BMPon 03-26-2023 Creatinine [Mass/Vol] 1.8 mg/dL High 0.5-1.3 [facility] Comment on above: Performed By: #### 2 446952, 7994671, 63289108, 3975918, 0769460, 3319101, 39102187, 70404885 ####[facility] [address] [place] [address] Urea nitrogen [Mass/Vol] 33 mg/dL High 5-21 [facility] Comment on above: Performed By: #### 2 282571, 5726786, 44553177, 2020001, 1483324, 4460186, 26555562, 00293468 ####[facility] [address] [place] [address] Urea nitrogen/Creatinine [Mass ratio] 18 No Units Normal 10-20 [facility] Comment on above: Performed By: #### 2 644528, 2006511, 84438452, 8005747, 0917935, 7038728, 49848476, 49837309 ####[facility] [address] [place] [address] Anion gap [Moles/Vol] 13 mmol/L Normal 6-16 [facility] Comment on above: Performed By: #### 2 248493, 8805304, 83009683, 8460209, 9357564, 2936816, 95637345, 43789627 ####[facility] [address] [place] [address] Calcium [Mass/Vol] 8.6 mg/dL Low 8.9-11.1 [facility] Comment on above: Performed By: #### 2 479327, 7917671, 63792540, 3267376, 7722610, 0754022, 40114151, 02402277 ####[facility] [address] [place] [address] Chloride [Moles/Vol] 105 mmol/L Normal 101-111 [facility] Comment on above: Performed By: #### 2 247908, 3558698, 39600706, 8759134, 4098907, 0308759, 48353965, 15454165 ####[facility] [address] [place] [address] CO2 [Moles/Vol] 22 mmol/L Normal 21-31 [facility] Comment on above: Performed By: #### 2 170146, 6065225, 34048069, 8823188, 6239795, 7208079, 93716228, 54111634 ####[facility] [address] [place] [address] Glucose [Mass/Vol] 225 mg/dL High 55-199 [facility] Comment on above: Result Comment: If t his glucose result represents a fasting glucose, interpretation should refer to the following reference range: 55-99 mg/dL Performed By: #### 2 577024, 7923486, 99904209, 5892237, 0976606, 9819682, 82766974, 56394794 ####[facility] [address] [place] [address] Potassium [Moles/Vol] 5.0 mmol/L Normal 3.5-5.3 [facility] Comment on above: Performed By: #### 2 382716, 7178693, 05963615, 3851625, 6975366, 0192493, 29107368, 76522438 ####[address] [place] [address] Sodium [Moles/Vol] 135 mmol/L Normal 135-145 [facility] Comment on above: Performed By: #### 2 817145, 5327933, 97001729, 4348989, 9301599, 6800423, 86501105, 14765590 ####[address] [place] [address] CBC w/ Auto Diffon Erythrocyte distribution width (RBC) [Ratio] 13.4 % Normal 10.9-14.2 [facility] Comment on above: Performed By: #### 2 691796, 0210718, 95397528, 5227663, 2876933, 5810503, 53607327, 93092712 ####[address] [address] Hematocrit (Bld) [Volume fraction] 25.7 % Low 37.7-49.0 [facility] Comment on above: Performed By: #### 2 308765, 3955533, 32733603, 5460206, 1091702, 7894243, 50014350, 35509436 ####[address] [place] [address] Hemoglobin (Bld) [Mass/Vol] 8.9 g/dL Low 13.5-17.5 [facility] Comment on above: Performed By: #### 2 756824, 8332864, 25718051, 2883561, 3716343, 0809138, 88833513, 27274596 ####[address] [place] [address] MCH (RBC) [Entitic mass] 31.3 pg Normal 27.0-34.0 [facility] Comment on above: Performed By: #### 2 104224, 4846499, 44441647, 0257480, 5135267, 2124707, 18505666, 78282557 ####[facility] [address] [place] [address] MCHC (RBC) [Mass/Vol] 34.5 g/dL Normal 31.4-36.0 [facility] Comment on above: Performed By: #### 2 319896, 3785266, 39848982, 0075061, 8115280, 8404503, 95110480, 77108482 ####[address] [place] [address] MCV (RBC) [Entitic vol] 90.8 fL Normal 80.0-100.0 F [facility] Comment on above: Performed By: #### 2 754574, 1640574, 04649842, 2326203, 1239481, 1335935, 76050917, 88582875 ####[address] [address] Platelet mean volume (Bld) [Entitic vol] 7.4 fL Normal 6.4-10.8 [facility] Comment on above: Performed By: #### 2 834988, 7756706, 03923411, 7269127, 5298623, 0351009, 81840094, 02019494 ####[address] [address] Platelets (Bld) [#/Vol] 277.0 E9/L Normal 150.0-500.0 [facility] Comment on above: Performed By: #### 2 663243, 6006208, 95719728, 6724538, 4425179, 2718334, 82040739, 03984304 ####[address] [place] [address] RBC (Bld) [#/Vol] 2.8 E12/L Low 4.3-5.9 [facility] Comment on above: Performed By: #### 2 894852, 1370306, 94744473, 8125191, 8088714, 5511785, 36314994, 52059289 ####[facility] [place] [address] WBC corrected for nucl RBC Auto (Bld) [#/Vol] 9.4 E9/L Normal 4.0-11.0 [facility] Comment on above: Performed By: #### 2 508125, 7992367, 51862373, 6451516, 1103733, 9662214, 02670259, 13679559 ####[facility] [address] [place] [address] Consent for Treatmenton 03-05 Consent for Treatment [id number]#[id number]: 127 Normal [facility] Discharge Instructionson Discharge Instructions [id number]#[id number]:1 27 Normal [facility] ED Clinical Summaryon 2022 ED Clinical Summary Normal [facility] ED Note-Physicianon 03-26-20 ED Note-Physician Normal [facility] Comment on above: Result Comment: Elec tronically Signed By: Randy Valdes DO\.br\Date and Time Signed: 03/26/23 10:39 EDT ED Patient Education Noteon 03-26-2023 ED Patient Education Note Normal [facility] ED Patient Summaryon 023 ED Patient Summary Normal [facility] EMS Documentationon 03-26-20 EMS Documentation Please click on link to see report Normal [facility] Comment on above: Result Comment: Miss ing Attachment - attachment exceeds size limitation [id number] Can be viewed in source system Hep Func Panelon 03-26-2023 Albumin [Mass/Vol] 3.1 g/dL Low 3.3-5.0 [facility] Comment on above: Performed By: #### 2 342866, 5189781, 75731760, 6462438, 6826968, 4607678, 79832335, 13945760 ####[facility] [address] [place] [address] Albumin/Globulin (S) [Mass conc ratio] 0.8 Low 1.1-2.2 [facility] Comment on above: Performed By: #### 2 745263, 5474530, 03241888, 5472289, 6737942, 5139688, 57249443, 07867724 ####[facility] [address] [place] [address] ALP [Catalytic activity/Vol] 100 Int._Unit/L High 21-98 [facility] Comment on above: Performed By: #### 2 155303, 4717959, 80167498, 1340257, 3598170, 3290581, 96910936, 62448475 ####[address] [address] ALT No additional P-5'-P [Catalytic activity/Vol] 12 Int._Unit/L Normal 6-46 [facility] Comment on above: Performed By: #### 2 728098, 8881125, 49540311, 1599578, 5932516, 0838158, 59441489, 33549951 ####[address] [address] AST [Catalytic activity/Vol] 13 Int._Unit/L Normal 5-43 [facility] Comment on above: Performed By: #### 2 613609, 3929312, 88981137, 8462573, 9541043, 4597960, 45910102, 98189425 ####[facility] [address] [place] [address] Bilirubin [Mass/Vol] 0.8 mg/dL Normal 0.0-1.1 [facility] Comment on above: Performed By: #### 2 723039, 7729189, 59303779, 4337198, 0606184, 6382028, 39269770, 22999259 ####[facility] [address] [place] [address] Bilirubin.direct [Mass/Vol] 0.1 mg/dL Normal 0.1-0.4 [facility] Comment on above: Performed By: #### 2 235765, 2413613, 19521341, 5815832, 5824898, 3179272, 75202052, 66355541 ####[facility] [address] [place] [address] Bilirubin.indirect [Mass or moles/Vol] 0.7 mg/dL Normal 0.1-0.9 [facility] Comment on above: Performed By: #### 2 395307, 1205202, 29544582, 2596500, 7940926, 9548419, 75386833, 03703284 ####[address] [place] [address] Globulin (S) [Mass/Vol] 4.0 g/dL Normal 1.4-4.0 [facility] Comment on above: Performed By: #### 2 963080, 8475283, 46761791, 9721925, 7424365, 5714102, 12841599, 05362231 ####[address] [place] [address] Protein [Mass/Vol] 7.1 g/dL Normal 6.0-7.8 [facility] Comment on above: Performed By: #### 2 892402, 0526543, 89306772, 7970738, 3733154, 6388808, 97582166, 62264866 ####[address] [place] [address] Lipase Levelon 03-26-2023 Lipase [Catalytic activity/Vol] 37 U/L Normal 13-58 [facility] Comment on above: Performed By: #### 2 590936, 4107815, 35975393, 6279549, 8080342, 7289370, 39052287, 13977107 ####[address] [place] [address] Monitor Recordon 03-26-2023 Monitor Record [id number]#1.00CD :127 Normal [facility]itentiary Recordson 03-26 Penitentiary Records [id number]#1.00CD: 127 Normal [facility] PT & PTTon 03-26-2023 aPTT Coag (PPP) [Time] 32.5 second(s) Normal 25.1-36.5 [facility] Comment on above: Result Comment: Para meter 15 days - 4 weeks 1 - 5 months 6 - 11 months 1 - 5 years 6 - 10 years 11 - 17 years PTT Mean: 35.4 (27.6-45.6) Mean: 33.5 (24.8-40.7) Mean: 32.4 (25.1-40.7) Mean: 31.6 (24.0-39.2) Mean: 31.6 (26.9-38.7) Mean: 31.0 (24.6-38.4) Pediatric Reference ranges were obtained from a study by Mikey Franco et al. prepared from 1437 samples obtained at 7 different centers using the same coagulation reagent and instrumentation as [facility]. Currently there are no coagulation studies available worldwide for children to 14 days, and no normal ranges. Heparin therapeutic range (represented by Anti-Factor Xa activity of 0.2 - 0.4 U/mL) corresponds to PTT of 56.6 - 109.0 sec. Performed By: #### 2 835164, 8138533, 90323075, 8074998, 8092934, 4453672, 74813358, 65542653 ####[facility] [address] [place] [address] INR Coag (PPP) [Relative time] 1.0 {INR} Invalid Interpretation Code [facility] Comment on above: Result Comment: INR results are specifically intended to assess patients stabilized on long-term Anticoagulation therapy suggested INR?s ?Less Intensive Anticoagulation? 2.0 ? 3.0Conventional Range 3.0 ? 4.5 Performed By: #### 2 898594, 1518392, 39841783, 5475315, 1033804, 2182734, 33406591, 18326734 ####[facility] [address] [place] [address] PT Coag (PPP) [Time] 11.7 second(s) Normal 9.4-12.5 [facility] Comment on above: Result Comment: 15 d ays - 4 weeks 1 - 5 months 6 -11 months 1-5 years 6-10 years 11 -17 years Mean: 11.2 (9.5-12.6) Mean: 11.0 (9.7-12.8) Mean: 11.0 (9.8-13.0) Mean: 11.3 (9.9-13.4) Mean: 11.7 (10.0-14.6) Mean: 11.8 (10.0 - 14.1) Pediatric Reference ranges were obtained from a study by Mikey Franco et al. prepared from 1437 samples obtained at 7 different centers using the same coagulation reagent and instrumentation as [facility] [place] [facility]. Currently there are no coagulation studies available worldwide for children to 14 days, and no normal ranges. Performed By: #### 2 145561, 2144800, 56280380, 2940262, 4950871, 8901692, 13012417, 57076588 ####[facility] [address] [place] [address] Pre-Arrival Noteon 3 Pre-Arrival Note Normal [facility] Progress Note-Nurseon 2022 Progress Note-Nurse Pt states hes unhapp y with phillip. Pt navigator notified. he speaks with patient. Report called to phillip. Normal [facility] Transfer Documentson 023 Transfer Documents [id number]#1.00CD:1 27 Normal [facility] Troponin 0 Hr.on 03-26-2023 Troponin I.cardiac [Mass/Vol] 12.00 pg/mL Low 15.90-38.40 [facility] Comment on above: Result Comment: The 95% CI (Confidence Interval) PPV (Positive Predictive Value) for myocardial infarction in females is 38 pg/mL, in males 51 pg/mL. The results should be used in conjunction with clinical conditions of myocardial infarction.(Access High Sensitivity Troponin I Instructions For Use, Cindi Josy, June 2018) Performed By: #### 2 007516, 4209721, 45590645, 0433087, 0956702, 8367717, 08109205, 03024018 ####[facility] [address] [place] [address] Troponin 3 Hr.on 03-26-2023 Troponin I.cardiac [Mass/Vol] 12.10 pg/mL Low 15.90-38.40 [facility] Comment on above: Result Comment: The 95% CI (Confidence Interval) PPV (Positive Predictive Value) for myocardial infarction in females is 38 pg/mL, in males 51 pg/mL. The results should be used in conjunction with clinical conditions of myocardial infarction.(Access High Sensitivity Troponin I Instructions For Use, [employer], June 2018) Performed By: #### 1 2585145 ####[facility] [address] [place] [address] Troponin 6 Hr.on 03-26-2023 Troponin I.cardiac [Mass/Vol] 11.30 pg/mL Low 15.90-38.40 [facility] Comment on above: Result Comment: The 95% CI (Confidence Interval) PPV (Positive Predictive Value) for myocardial infarction in females is 38 pg/mL, in males 51 pg/mL. The results should be used in conjunction with clinical conditions of myocardial infarction.(Access High Sensitivity Troponin I Instructions For Use, [employer], June 2018) Performed By: #### 1 [id number] ####[address] [place] [address] XR Chest Single Viewon 03-26 XR Chest Single View Normal [facility] eGFRon 03-26-2023 GFR/1.73 sq M.predicted among non-blacks MDRD (S/P/Bld) [Vol rate/Area] 42 mL/min/1.73 m2 Low >=59 [facility] Comment on above: Order Comment: Order added by Discern Expert. 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 Kidney failure is indicated at less than 15 mL/min/1.73m2. Performed By: #### 2 818354, 2003509, 31172045, 6735255, 1531943, 8996307, 31821269, 98433681 ####[facility] [address] [place] [address] ED Note-Physicianon 03-21-20 ED Note-Physician Normal [facility] Comment on above: Result Comment: Elec tronically Signed By: Carter Osborn PA-C\.br\Date and Time Signed: 03/01/23 15:14 EDT\.br\Electronically Co-Signed By: Javi Valenzuela MD\.br\Date and Time Co-Signed: 03/21/23 07:47 EDT NM Myocardial Spect Rest/Str ess 2 Dayon 03-13-2023 NM Myocardial Spect Rest/Stress 2 Day Normal [facility] Insurance Correspondence Off ice03-11-2023 Insurance Correspondence Office [id number]#1.00CD :127 Normal [facility] C Blood Charcoalon Blood Culture Charcoal Normal [facility] Comment on above: Performed By: #### 1 9617860 ####[facility] [address] [place] [address] NM Myocardial Spect Part 2on 03-07-2023 NM Myocardial Spect Part 2 Normal [facility] Coding Summary.on 03-06-2023 Coding Summary. Normal [facility] Insurance Correspondence Off ice03-06-2023 Insurance Correspondence Office [id number]#1.00CD :127 Normal [facility] C Urineon 03-05-2023 Bacteria identified Cx Nom (U) Normal [facility] Comment on above: Performed By: #### 1 4403228, 8301923 ####[facility] [address] [place] [address] Coding Queryon 03-05-2023 Coding Query Normal [facility] Stress EKG Tracingson 2022 Stress EKG Tracings [id number]#1.00CD :127 Normal [facility] BMPon 03-04-2023 Anion gap [Moles/Vol] 9 mmol/L Normal 6-16 [facility] Comment on above: Performed By: #### 2 479712, 36735135, 60110490 ####[facility] [address] [place] [address] Calcium [Mass/Vol] 8.4 mg/dL Low 8.9-11.1 [facility] Comment on above: Performed By: #### 2 262877, 86394138, 20195266 ####[facility] [address] [place] [address] Chloride [Moles/Vol] 109 mmol/L Normal 101-111 [facility] Comment on above: Performed By: #### 2 078218, 10717123, 63723361 ####[facility] [address] [place] [address] CO2 [Moles/Vol] 23 mmol/L Normal 21-31 [facility] Comment on above: Performed By: #### 2 216923, 40517857, 26494550 ####[facility] [address] [place] [address] Creatinine [Mass/Vol] 1.6 mg/dL High 0.5-1.3 [facility] Comment on above: Performed By: #### 2 110603, 70474029, 31667461 ####[facility] [address] [facility] [place] [address] Glucose [Mass/Vol] 164 mg/dL Normal 55-199 [facility] Comment on above: Result Comment: If t his glucose result represents a fasting glucose, interpretation should refer to the following reference range: 55-99 mg/dL Performed By: #### 2 283461, 98045199, 17767651 ####[facility] [address] [place] [address] Potassium [Moles/Vol] 4.7 mmol/L Normal 3.5-5.3 [facility] Comment on above: Performed By: #### 2 177872, 44389095, 35523297 ####[facility] [address] [place] [address] Sodium [Moles/Vol] 136 mmol/L Normal 135-145 [facility] Comment on above: Performed By: #### 2 182869, 10935894, 27714104 ####[facility] [address] [place] [address] Urea nitrogen [Mass/Vol] 34 mg/dL High 5-21 [facility] Comment on above: Performed By: #### 2 781070, 19439586, 45211369 ####[facility] [address] [place] [address] Urea nitrogen/Creatinine [Mass ratio] 21 No Units High 10-20 [facility] Comment on above: Performed By: #### 2 193310, 14447788, 92834729 ####[facility] [address] [place] [address] CHEMISTRYOrdered By: Lab ROP User on 03-04-2023 Glucose [Mass/Vol] 171 mg/dL High 55 - 99 mg/dL [facility] POC Subsection Comment on above: Result Comment: Eleno ALEXIS POC Device SN [id number] Invalid Interpretation Code [facility] POC Subsection POC User ID [id number] Invalid Interpretation Code [facility] POC Subsection POC Username ROSSI GAONA Invalid Interpretation Code [facility] POC Subsection Glucose [Mass/Vol] 155 mg/dL High 55 - 99 mg/dL [facility] POC Subsection Comment on above: Result Comment: Eleno ALEXIS POC Device SN [id number] Invalid Interpretation Code [facility] POC Subsection POC User ID [id number] Invalid Interpretation Code [facility] POC Subsection POC Username ROSSI GAONA Invalid Interpretation Code [facility] POC Subsection CHEMISTRYOrdered By: SYSTEM SYSTEM on 03-04-2023 Anion gap [Moles/Vol] 9 mmol/L Normal 6 - 16 mEq/L F [facility] Remisol Calcium [Mass/Vol] 8.4 mg/dL Low 8.9 - 11. 1 mg/dL FT Remisol Chloride [Moles/Vol] 109 mmol/L Normal 101 - 1 11 mmol/L FT Remisol CO2 [Moles/Vol] 23 mmol/L Normal 21 - 31 mmol/L FT Remisol Creatinine [Mass/Vol] 1.6 mg/dL High 0.5 - 1.3 mg/dL [facility] Remisol GFR/1.73 sq M.predicted among non-blacks MDRD (S/P/Bld) [Vol rate/Area] 49 mL/min/1.73 m2 Low >=59mL/min/1 .73 m2 [facility] Chem S Glucose [Mass/Vol] 164 mg/dL Normal 55 - 199 mg/dL [facility] Remisol Potassium [Moles/Vol] 4.7 mmol/L Normal 3.5 - 5.3 mmol/L [facility] Remisol Sodium [Moles/Vol] 136 mmol/L Normal 135 - 145 mmol/L [facility] Remisol Urea nitrogen [Mass/Vol] 34 mg/dL High 5 - 21 mg/dL [facility] Remisol Urea nitrogen/Creatinine [Mass ratio] 21 mg/mg High 10 - 20 [facility] Remisol Capillary Glucose POCon 05-0 Glucose [Mass/Vol] 171 mg/dL High 55-99 [facility] Comment on above: Result Comment: Eleno king RN/ Performed By: #### 2 [id number] ####[facility] [address] [place] [address] Glucose [Mass/Vol] 155 mg/dL High 55-99 [facility] Comment on above: Result Comment: Eleno ALEXIS Performed By: #### 2 [id number] ####[facility] [address] [place] [address] Discharge Instructionson Discharge Instructions [id number]#1.00CD :127 Normal [facility] Discharge Note-Nursingon Discharge Note-Nursing Normal [facility] Echo Transthoracic Completeo n 03-04-2023 Echo Transthoracic Complete Normal [facility] HEMATOLOGYOrdered By: Saud Harrington on 03-04-2023 Hematocrit (Bld) [Volume fraction] 24.2 % Low 37.7 - 49.0 % [facility] HemeAutoSS Hemoglobin (Bld) [Mass/Vol] 8.3 g/dL Low 13.5 - 17.5 gm/dL [facility] HemeAutoSS Hct & Hgbon 03-04-2023 Hematocrit (Bld) [Volume fraction] 24.2 % Low 37.7-49.0 [facility] Comment on above: Performed By: #### 2 183153, 94166103, 93046299 ####[facility] [address] [place] [address] Hemoglobin (Bld) [Mass/Vol] 8.3 g/dL Low 13.5-17.5 [facility] Comment on above: Performed By: #### 2 269345, 72801440, 90365685 ####[facility] [address] [place] [address] Inpatient Clinical Summaryon 03-04-2023 Inpatient Clinical Summary Normal [facility] Inpatient Patient Summaryon 03-04-2023 Inpatient Patient Summary Normal [facility] Inpatient Patient Summary Normal [facility] Insurance Correspondenceon 0 03-04-2023 Insurance Correspondence [id number]#1.00CD :127 Normal [facility] Interdisciplinary Note - Reza e Manageron 03-04-2023 Interdisciplinary Note - Parking Lot Manager [facility] Comment on above: Result Comment: Elec tronically Signed By: Shan WALKER, Briana\.br\Date and Time Signed: 03/04/23 13:16 EDT Interdisciplinary Note - Hilario singon 03-04-2023 Interdisciplinary Note - Nursing [facility] Interdisciplinary Note - Soc ial Workeron 03-04-2023 Interdisciplinary Note - Hosiery Repairer [facility] Monitor Recordon 03-04-2023 Monitor Record [id number]#1.00CD :127 Normal [facility] Recordson 03-04 Penitentiary Records [id number]#1.00CD :127 Normal [facility] Progress Note-Physicianon Progress Note-Physician [facility] Comment on above: Result Comment: Elec tronically Signed By: Pako GAMEZ, Jayme\.mirela\Date and Time Signed: 03/04/23 13:18 EDT Transfer Documentson 023 Transfer Documents [id number]#1.00CD :127 Normal [facility] US Renalon 03-04-2023 US Renal Normal [facility] eGFRon 03-04-2023 GFR/1.73 sq M.predicted among non-blacks MDRD (S/P/Bld) [Vol rate/Area] 49 mL/min/1.73 m2 Low >=59 [facility] Comment on above: Order Comment: Order added by Discern Expert. 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 Kidney failure is indicated at less than 15 mL/min/1.73m2. Performed By: #### 2 589973, 75298571, 25458049 ####[facility] [address] [place] [address] BMPon 03-03-2023 Creatinine [Mass/Vol] 1.9 mg/dL High 0.5-1.3 [facility] Comment on above: Performed By: #### 2 396462, 48437570 ####[facility] [address] [place] [address] Urea nitrogen [Mass/Vol] 35 mg/dL High 5-21 [facility] Comment on above: Performed By: #### 2 120149, 88295834 ####[facility] [address] [place] [address] Urea nitrogen/Creatinine [Mass ratio] 18 No Units Normal 10-20 [facility] Comment on above: Performed By: #### 2 599545, 53580100 ####[facility] [address] [place] [address] Anion gap [Moles/Vol] 11 mmol/L Normal 6-16 [facility] Comment on above: Performed By: #### 2 495813, 29403363 ####[facility] [address] [place] [address] Calcium [Mass/Vol] 8.3 mg/dL Low 8.9-11.1 [facility] Comment on above: Performed By: #### 2 132585, 41214818 ####[facility] [address] [place] [address] Chloride [Moles/Vol] 107 mmol/L Normal 101-111 [facility] Comment on above: Performed By: #### 2 904730, 82316924 ####[facility] [address] [place] [address] CO2 [Moles/Vol] 22 mmol/L Normal 21-31 [facility] Comment on above: Performed By: #### 2 863314, 99870749 ####[facility] [address] [place] [address] Glucose [Mass/Vol] 255 mg/dL High 55-199 [facility] Comment on above: Result Comment: If t his glucose result represents a fasting glucose, interpretation should refer to the following reference range: 55-99 mg/dL Performed By: #### 2 232576, 20016420 ####[facility] [address] [place] [address] Potassium [Moles/Vol] 4.9 mmol/L Normal 3.5-5.3 [facility] Comment on above: Performed By: #### 2 064772, 01149509 ####[facility] [address] [place] [address] Sodium [Moles/Vol] 135 mmol/L Normal 135-145 [facility] Comment on above: Performed By: #### 2 285059, 74113847 ####[facility] [address] [place] [address] C Urineon 03-03-2023 Bacteria identified Cx Nom (U) Normal [facility] Comment on above: Performed By: #### 2 218932, 89020073 ####[facility] [address] [place] [address] CHEMISTRYOrdered By: Lab ROP User on 03-03-2023 Glucose [Mass/Vol] 210 mg/dL High 55 - 99 mg/dL [facility] POC Subsection Comment on above: Result Comment: Dominique lewis Meter POC Device SN [id number] Invalid Interpretation Code [facility] POC Subsection POC User ID [id number] Invalid Interpretation Code [facility] POC Subsection POC Username KIM SANDERS Invalid Interpretation Code [facility] POC Subsection CHEMISTRYOrdered By: SYSTEM SYSTEM on 03-03-2023 Anion gap [Moles/Vol] 11 mmol/L Normal 6 - 16 mEq/L F [facility] Remisol Calcium [Mass/Vol] 8.3 mg/dL Low 8.9 - 11. 1 mg/dL FT Remisol Chloride [Moles/Vol] 107 mmol/L Normal 101 - 1 11 mmol/L FT Remisol CO2 [Moles/Vol] 22 mmol/L Normal 21 - 31 mmol/L [facility] Remisol Creatinine [Mass/Vol] 1.9 mg/dL High 0.5 - 1.3 mg/dL [facility] Remisol GFR/1.73 sq M.predicted among non-blacks MDRD (S/P/Bld) [Vol rate/Area] 40 mL/min/1.73 m2 Low >=59mL/min/1 .73 m2 [facility] Chem S Glucose [Mass/Vol] 255 mg/dL High 55 - 199 mg/dL [facility] Remisol Potassium [Moles/Vol] 4.9 mmol/L Normal 3.5 - 5.3 mmol/L [facility] Remisol Sodium [Moles/Vol] 135 mmol/L Normal 135 - 145 mmol/L [facility] Remisol Urea nitrogen [Mass/Vol] 35 mg/dL High 5 - 21 mg/dL [facility] Remisol Urea nitrogen/Creatinine [Mass ratio] 18 mg/mg Normal 10 - 20 FT Remisol Creatinine [Mass/Vol] 2.0 mg/dL High 0.5 - 1.3 mg/dL [facility] Remisol GFR/1.73 sq M.predicted among non-blacks MDRD (S/P/Bld) [Vol rate/Area] 37 mL/min/1.73 m2 Low >=59mL/min/1 .73 m2 [facility] Chem S Potassium [Moles/Vol] 4.7 mmol/L Normal 3.5 - 5.3 mmol/L [facility] Remisol Capillary Glucose POCon 02-04 Glucose [Mass/Vol] 210 mg/dL High 55-[address] [place] [address] Comment on above: Result Comment: Dominique debbie Meter Performed By: #### 2 [id number] ####[facility] [address] [place] [address] Glucose [Mass/Vol] 253 mg/dL High [facility] Comment on above: Result Comment: Dominique debbie Meter Performed By: #### 2 [id number] ####[facility] [address] [place] [address] Glucose [Mass/Vol] 236 mg/dL [address] [facility] Comment on above: Result Comment: Eleno king RN/ Performed By: #### 2 [id number] ####[facility] [address] [place] [address] Glucose [Mass/Vol] 127 mg/dL [address] [facility] Comment on above: Result Comment: Eleno ALEXIS Performed By: #### 2 [id number] ####[facility] [address] [place] [address] Creatinineon 03-03-2023 Creatinine [Mass/Vol] 2.0 mg/dL High 0.5-1.3 [facility] Comment on above: Performed By: #### 2 336623, 19595934, 6057124 ####[facility] [address] [place] [address] Insurance Correspondence Off iceon 03-03-2023 Insurance Correspondence Office [id number]#1.00CD :127 Normal [facility] Insurance Correspondence Office [id number]#1.00CD :127 Normal [facility] Interdisciplinary Note - Reza e Manageron 03-03-2023 Interdisciplinary Note - Parking Lot Manager Normal [facility] Comment on above: Result Comment: Elec tronically Signed By: Arpita WALKER, Christine\.br\Date and Time Signed: 03/03/23 12:35 EDT Laboratory - Microbiology an d Antimicrobial susceptibilityOrdered By: Louis Trevizo on 03-03-2023 Bacteria identified Cx Nom (U) No growth to date [facility] Message from Medicareon 02-04 Message from Medicare [id number]#1.00CD :127 Normal [facility] Monitor Recordon 03-03-2023 Monitor Record [id number]#1.00CD :127 Normal [facility] Monitor Record [id number]#1.00CD :127 Normal [facility] Monitor Record [id number]#1.00CD :127 Normal [facility] Monitor Record [id number]#1.00CD :127 Normal [facility] Potassiumon 03-03-2023 Potassium [Moles/Vol] 4.7 mmol/L Normal 3.5-5.3 [facility] Comment on above: Performed By: #### 2 011046, [id number], 8412448 ####[facility] [address] [place] [address] Progress Note-Physicianon Progress Note-Physician Normal [facility] Comment on above: Result Comment: Elec tronically Signed By: Rima MARIN\.br\Date and Time Signed: 03/02/23 08:26 EDT\.br\Electronically Co-Signed By: Rima MARIN\.br\Date and Time Co-Signed: 03/02/23 08:27 EDT\.br\Electronically Co-Signed By: William BAER MD\.br\Date and Time Co-Signed: 03/03/23 08:44 EDT Progress Note-Physician Normal [facility] Comment on above: Result Comment: Elec tronically Signed By: Rima MARIN\.br\Date and Time Signed: 03/03/23 07:57 EDT\.br\Electronically Co-Signed By: Rima MARIN\.br\Date and Time Co-Signed: 03/03/23 08:36 EDT\.br\Electronically Co-Signed By: William BAER MD\.br\Date and Time Co-Signed: 03/03/23 08:44 EDT UA With Cult Reflexon 2022 Bacteria LM Ql (Urine sed) TRACE Normal Trace [facility] Comment on above: Order Comment: Urina ry Catheter Insertion triggered Urinalysis With Culture Reflex order by discern. Performed By: #### 1 [id number], 0257999 ####[address] [address] Bilirubin Ql (U) Negative Normal Negative [facility] Comment on above: Order Comment: Urina ry Catheter Insertion triggered Urinalysis With Culture Reflex order by discern. Performed By: #### 1 [id number], 3801588 ####[address] [address] Clarity (U) CLEAR Normal Clear [facility] Comment on above: Order Comment: Urina ry Catheter Insertion triggered Urinalysis With Culture Reflex order by discern. Performed By: #### 1 1520155, 6257750 ####[address] [address] Color (U) YELLOW Normal Yellow [facility] Comment on above: Order Comment: Urina ry Catheter Insertion triggered Urinalysis With Culture Reflex order by discern. Performed By: #### 1 3144428, 5676319 ####[address] [address] Epithelial cells.squamous LM.HPF (Urine sed) [#/Area] 0-2 Normal 0-2 [facility] Comment on above: Order Comment: Urina ry Catheter Insertion triggered Urinalysis With Culture Reflex order by discern. Performed By: #### 1 2098215, 8968513 ####[facility] [address] [place] [address] [place] [address] Glucose Test strip (U) [Mass/Vol] 1+ Abnormal Negative [facility] Comment on above: Order Comment: Urina ry Catheter Insertion triggered Urinalysis With Culture Reflex order by discern. Performed By: #### 1 7902227, 4685507 ####[facility] [address] [place] [address] Hemoglobin Ql (U) 3+ Abnormal Negative [facility] Comment on above: Order Comment: Urina ry Catheter Insertion triggered Urinalysis With Culture Reflex order by discern. Performed By: #### 1 9637624, 8438608 ####[address] [address] Ketones (U) [Mass/Vol] Negative Normal Negative [facility] Comment on above: Order Comment: Urina ry Catheter Insertion triggered Urinalysis With Culture Reflex order by discern. Performed By: #### 1 9771400, 1510366 ####[address] [address] [place].plasma/[place]. RBC (Bld) [Mass ratio] 4-20 Normal 0-3 [facility] Comment on above: Order Comment: Urina ry Catheter Insertion triggered Urinalysis With Culture Reflex order by discern. Performed By: #### 1 7885957, 8056462 ####[facility] [address] [place] [address] Nitrite Ql (U) Negative Normal Negative [facility] Comment on above: Order Comment: Urina ry Catheter Insertion triggered Urinalysis With Culture Reflex order by discern. Performed By: #### 1 3458035, 6931109 ####[address] [address] pH (U) 6.0 [pH] Invalid Interpretation Code 5.0-9.0 [facility] Comment on above: Order Comment: Urina ry Catheter Insertion triggered Urinalysis With Culture Reflex order by discern. Performed By: #### 1 1827934, 2899213 ####[facility] [address] [place] [address] Protein (U) [Mass/Vol] 2+ Abnormal Negative Fi [facility] Comment on above: Order Comment: Urina ry Catheter Insertion triggered Urinalysis With Culture Reflex order by discern. Performed By: #### 1 9839469, 1111265 ####[place] [address] Specific gravity (U) [Rel density] 1.020 Invalid Interpretation Code 1.005-1.030 [facility] Comment on above: Order Comment: Urina ry Catheter Insertion triggered Urinalysis With Culture Reflex order by discern. Performed By: #### 1 9072954, 7542384 ####[place] [address] Type of Urine collection method Todd Normal [facility] Comment on above: Order Comment: Urina ry Catheter Insertion triggered Urinalysis With Culture Reflex order by discern. Performed By: #### 1 3336983, 9208977 ####[place] [address] Urobilinogen Qn (U) 0.2 {Génesis'U}/dL Normal 0.0-1.0 [facility] Comment on above: Order Comment: Urina ry Catheter Insertion triggered Urinalysis With Culture Reflex order by discern. Performed By: #### 1 6087942, 5258721 ####[place] [address] WBC Auto Ql (U) 2+ Abnormal Negative [facility] Comment on above: Order Comment: Urina ry Catheter Insertion triggered Urinalysis With Culture Reflex order by discern. Performed By: #### 1 0862542, 4960276 ####[place] [address] WBC LM.HPF (Urine sed) [#/Area] 16-25 Abnormal 0-5 [facility] Comment on above: Order Comment: Urina ry Catheter Insertion triggered Urinalysis With Culture Reflex order by discern. Performed By: #### 1 6057191, 2259201 ####[place] [address] URINALYSISOrdered By: Thai Colby on 03-03-2023 Bacteria LM Ql (Urine sed) Trace /HPF Normal Trace/HPF [facility] UA Auto SS Bilirubin Ql (U) Negative (03/03/23 4:51 PM) Normal Negative [facility] UA Auto SS Clarity (U) Clear (03/03/23 4:51 PM) Normal Clear [facility] UA Auto SS Color (U) Yellow (03/03/23 4:51 PM) Normal Yellow [facility] UA Auto SS Epithelial cells.squamous LM.HPF (Urine sed) [#/Area] 0-2 /HPF Normal 0-2/HPF [facility] UA Auto SS Glucose Test strip (U) [Mass/Vol] 1+ *ABN* (03/03/23 4:51 PM) Invalid Interpretation Code Negative [facility] UA Auto SS Hemoglobin Ql (U) 3+ *ABN* (03/03/23 4:51 PM) Invalid Interpretation Code Negative [facility] UA Auto SS Ketones (U) [Mass/Vol] Negative (03/03/23 4:51 PM) Normal Negative [facility] UA Auto SS [place].plasma/[place]. RBC (Bld) [Mass ratio] 4-20 /HPF Normal 0-3/HPF [facility] UA Auto SS Nitrite Ql (U) Negative (03/03/23 4:51 PM) Normal Negative [facility] UA Auto SS pH (U) 6.0 *NA* (03/03/23 4:51 PM) Invalid Interpretation Code 5.0 - 9.0 [facility] UA Auto SS Protein (U) [Mass/Vol] 2+ *ABN* (03/03/23 4:51 PM) Invalid Interpretation Code Negative [facility] UA Auto SS Specific gravity (U) [Rel density] 1.020 *NA* (03/03/23 4:51 PM) Invalid Interpretation Code 1.005 - 1.030 [facility] UA Auto SS UA Spec Desc Todd (03/03/23 4:51 PM) Normal [facility] UA Auto SS Urobilinogen Qn (U) 0.7667425 {Génesis'U}/dL Normal 0.0 - 1.0 EU/dL [facility] UA Auto SS WBC Auto Ql (U) 2+ *ABN* (03/03/23 4:51 PM) Invalid Interpretation Code Negative [facility] UA Auto SS WBC LM.HPF (Urine sed) [#/Area] 16-25 /HPF Invalid Interpretation Code 0-5/HPF [facility] [place] UA Auto SS eGFRon 03-03-2023 GFR/1.73 sq M.predicted among non-blacks MDRD (S/P/Bld) [Vol rate/Area] 40 mL/min/1.73 m2 Low >=59 [facility] Comment on above: Order Comment: Order added by Discern Expert. 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 Kidney failure is indicated at less than 15 mL/min/1.73m2. Performed By: #### 2 108028, [id number] ####[facility] [address] [place] [address] GFR/1.73 sq M.predicted among non-blacks MDRD (S/P/Bld) [Vol rate/Area] 37 mL/min/1.73 m2 Low >=59 [facility] Comment on above: Order Comment: Order added by Jimenez Expert. 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 Kidney failure is indicated at less than 15 mL/min/1.73m2. Performed By: #### 2 947272, 63092201, 9615498 ####[facility] [address] [place] [address] Auto Diffon 03-02-2023 Basophils/100 WBC (Bld) 0.2 % Normal 0.0-2.0 F [facility] Comment on above: Order Comment: Order Added by Discern Expert. Performed By: #### 2 823624, 0661877, 7206758, 8561763, 75925425, [id number], 5038269 ####[facility] [address] [place] [address] Basophils/Leukocytes Auto (Bld) [Pure # fraction] 0.0 E9/L Normal 0.0-0.2 [facility] Comment on above: Order Comment: Order Added by Discern Expert. Performed By: #### 2 400616, 5996227, 5380767, 6111356, 34249401, 1852831201, 5689168 ####[address] [place] [address] Eosinophils/100 WBC (Bld) 0.3 % Normal 0.0-8.0 [facility] Comment on above: Order Comment: Order Added by Discern Expert. Performed By: #### 2 881679, 6834134, 1995197, 9244637, 15229722, 9622976396, 9041717 ####[address] [place] [address] Eosinophils/Leukocytes Auto (Bld) [Pure # fraction] 0.0 E9/L Normal 0.0-0.5 [facility] Comment on above: Order Comment: Order Added by Discern Expert. Performed By: #### 2 928070, 6725074, 8901276, 8264315, 85386439, 8780865353, 6633757 ####[address] [address] Lymphocytes/100 WBC (Bld) 7.1 % Low 14.0-50.0 [facility] Comment on above: Order Comment: Order Added by Discern Expert. Performed By: #### 2 612663, 0628911, 0065989, 7920760, 54756705, 6362156724, 2915777 ####[address] [address] Lymphocytes/Leukocytes Auto (Bld) [Pure # fraction] 0.5 E9/L Low 1.0-4.0 [facility] Comment on above: Order Comment: Order Added by Discern Expert. Performed By: #### 2 275792, 3771615, 8294134, 4820103, 67674504, 7134762612, 8971053 ####[address] [address] Monocytes/100 WBC (Bld) 7.3 % Normal 4.0-14.0 [facility] Comment on above: Order Comment: Order Added by Discern Expert. Performed By: #### 2 939168, 8697038, 5554915, 5029634, 52183693, 7097629543, 1523564 ####[facility] [address] [place] [address] Monocytes/Leukocytes Auto (Bld) [Pure # fraction] 0.6 E9/L Normal 0.2-1.0 [facility] Comment on above: Order Comment: Order Added by Discern Expert. Performed By: #### 2 364157, 6168298, 8340614, 8011510, 12423187, 8751326447, 1715204 ####[address] [place] [address] Neutrophils/100 WBC (Bld) 85.1 % High 36.0-75.0 [facility] Comment on above: Order Comment: Order Added by Discern Expert. Performed By: #### 2 760391, 4744304, 5437901, 6893113, 33793159, 5515409914, 6164983 ####[address] [address] Neutrophils/Leukocytes Auto (Bld) [Pure # fraction] 6.5 E9/L Normal 2.0-7.5 [facility] Comment on above: Order Comment: Order Added by Discern Expert. Performed By: #### 2 004686, 6306834, 4615785, 3563911, 44319035, 5938051460, 8192928 ####[address] [place] [address] BMPon 03-02-2023 Anion gap [Moles/Vol] 14 mmol/L Normal 6-16 [facility] Comment on above: Performed By: #### 2 832176, 7425919, 1149506, 9976636, 42334532, 6248769543, 7357840 ####[address] [place] [address] Calcium [Mass/Vol] 8.5 mg/dL Low 8.9-11.1 [facility] Comment on above: Performed By: #### 2 106657, 6032518, 5500430, 7638249, 38044749, 5391769051, 8060092 ####[facility] [address] [place] [address] Chloride [Moles/Vol] 108 mmol/L Normal 101-111 [facility] Comment on above: Performed By: #### 2 860323, 2866999, 4320711, 3870030, 06481051, 2223075169, 8118460 ####[facility] [address] [place] [address] CO2 [Moles/Vol] 19 mmol/L Low 21-31 [facility] Comment on above: Performed By: #### 2 050186, 2837566, 1227097, 6500388, 08424015, 8652668671, 3311661 ####[facility] [address] [place] [address] Creatinine [Mass/Vol] 1.9 mg/dL High 0.5-1.3 [facility] Comment on above: Performed By: #### 2 648552, 5456418, 7182507, 2879944, 79896146, 5502645844, 6740837 ####[facility] [address] [place] [address] Glucose [Mass/Vol] 122 mg/dL Normal 55-199 [facility] Comment on above: Result Comment: If t his glucose result represents a fasting glucose, interpretation should refer to the following reference range: 55-99 mg/dL Performed By: #### 2 338595, 8257154, 8828688, 5912695, 06643060, 7830009652, 1767995 ####[facility] [address] [place] [address] Potassium [Moles/Vol] 5.0 mmol/L Normal 3.5-5.3 [facility] Comment on above: Performed By: #### 2 745512, 5791761, 8835104, 6737338, 25328072, 2739026679, 7771642 ####[facility] [address] [place] [address] Sodium [Moles/Vol] 136 mmol/L Normal 135-145 [facility] Comment on above: Performed By: #### 2 598017, 2245414, 4948135, 4634450, 39284993, 8846810080, 5989279 ####[facility] [address] [place] [address] Urea nitrogen [Mass/Vol] 40 mg/dL High 5-21 [facility] Comment on above: Performed By: #### 2 190819, 0833057, 6713306, 4032392, 04146064, 4717353706, 4353923 ####[facility] [address] [place] [address] Urea nitrogen/Creatinine [Mass ratio] 21 No Units High 10-20 [facility] Comment on above: Performed By: #### 2 299178, 6925527, 9255664, 6543001, 17910649, 6703629321, 4690150 ####[facility] [address] [place] [address] CBC w/ Auto Diffon 3 Erythrocyte distribution width (RBC) [Ratio] 13.0 % Normal 10.9-14.2 [facility] Comment on above: Performed By: #### 2 786796, 3730686, 5772889, 9636918, 27565937, 6123958732, 7834056 ####[facility] [address] [place] [address] Hematocrit (Bld) [Volume fraction] 24.2 % Low 37.7-49.0 [facility] Comment on above: Performed By: #### 2 196573, 4967648, 6733637, 0556774, 56651477, 6420916526, 3101236 ####[facility] [address] [place] [address] Hemoglobin (Bld) [Mass/Vol] 8.2 g/dL Low 13.5-17.5 [facility] Comment on above: Performed By: #### 2 057465, 7403414, 5895292, 0087237, 91778965, 6649452104, 6369664 ####[facility] [address] [place] [address] MCH (RBC) [Entitic mass] 31.3 pg Normal 27.0-34.0 [facility] Comment on above: Performed By: #### 2 617831, 8805943, 1487476, 8775775, 53719698, 4241305918, 0997458 ####[facility] [address] [place] [address] MCHC (RBC) [Mass/Vol] 34.1 g/dL Normal 31.4-36.0 [facility] Comment on above: Performed By: #### 2 674252, 2249521, 8875293, 3379443, 27814215, 6579089890, 6873105 ####[address] [address] MCV (RBC) [Entitic vol] 91.9 fL Normal 80.0-100.0 F [facility] Comment on above: Performed By: #### 2 350035, 5819487, 0702701, 6305923, 29121306, 9973525982, 6748104 ####[address] [address] Platelet mean volume (Bld) [Entitic vol] 6.7 fL Normal 6.4-10.8 [facility] Comment on above: Performed By: #### 2 379641, 6480703, 1551194, 8206926, 26423223, 7535758781, 4962904 ####[facility] [address] [place] [address] Platelets (Bld) [#/Vol] 244.0 E9/L Normal 150.0-500.0 [facility] Comment on above: Performed By: #### 2 387232, 4104072, 5012657, 6590797, 18275143, 1165266376, 8170426 ####[facility] [address] [place] [address] RBC (Bld) [#/Vol] 2.6 E12/L Low 4.3-5.9 [facility] Comment on above: Performed By: #### 2 619969, 1590675, 7587230, 0863952, 89863994, 1710598087, 5820121 ####[facility] [address] [place] [address] WBC corrected for nucl RBC Auto (Bld) [#/Vol] 7.6 E9/L Normal 4.0-11.0 [facility] Comment on above: Performed By: #### 2 171549, 4719212, 0866780, 3582721, 96132904, 6856017246, 8873725 ####[facility] [address] [place] [address] CHEMISTRYOrdered By: SYSTEM SYSTEM on 03-02-2023 Anion gap [Moles/Vol] 14 mmol/L Normal 6 - 16 mEq/L F [facility] Remisol Calcium [Mass/Vol] 8.5 mg/dL Low 8.9 - 11. 1 mg/dL [facility] Remisol Chloride [Moles/Vol] 108 mmol/L Normal 101 - 1 11 mmol/L [facility] Remisol Cholesterol [Mass/Vol] 101 mg/dL Low 120 - 200 mg/dL [facility] Remisol Cholesterol in HDL [Mass/Vol] 20 mg/dL Invalid Interpretation Code [facility]isol Cholesterol in LDL [Mass/Vol] 47 mg/dL Normal <=129mg/dL [facility] Remisol Cholesterol in VLDL [Mass/Vol] 39 mg/dL Normal 7 - 40 mg/dL [facility]isol CO2 [Moles/Vol] 19 mmol/L Low 21 - 31 mmol/L [facility] Remisol Glucose [Mass/Vol] 122 mg/dL Normal 55 - 199 mg/dL [facility] Remisol Magnesium [Mass/Vol] 1.7 mg/dL Normal 1.3 - 2 .4 mg/dL [facility] Remisol Procalcitonin 0.18 ng/mL Normal 0.00 - 0.50 ng/mL [facility]isol Sodium [Moles/Vol] 136 mmol/L Normal 135 - 145 mmol/L [facility] Remisol Triglyceride [Mass/Vol] 196 mg/dL High <=149mg/dL F [facility] Remisol Urea nitrogen [Mass/Vol] 40 mg/dL High 5 - 21 mg/dL [facility] [place] Remisol Urea nitrogen/Creatinine [Mass ratio] 21 mg/mg High 10 - 20 [facility] [place] Remisol Capillary Glucose POCon 02-03 Glucose [Mass/Vol] 237 mg/dL High 55-99 [facility] Comment on above: Result Comment: Eleno king RN/MD Performed By: #### 2 [id number] ####[facility] [address] [place] [address] Glucose [Mass/Vol] 179 mg/dL High 55-99 [facility] Comment on above: Result Comment: Dominique debbie Meter Performed By: #### 2 08927701 ####[facility] [address] [place] [address] Glucose [Mass/Vol] 123 mg/dL High 55-99 [facility] Comment on above: Result Comment: Dominique debbie Meter Performed By: #### 2 [id number] ####[facility] [address] [place] [address] Glucose [Mass/Vol] 120 mg/dL High 55-99 [facility] Comment on above: Result Comment: Dominique debbie Meter Performed By: #### 2 53368617 ####[facility] [address] [place] [address] HEMATOLOGYOrdered By: SYSTEM SYSTEM on 03-02-2023 Basophils/100 WBC (Bld) 0.2 % Normal 0.0 - 2.0 % [facility] HemeAutoSS Basophils/Leukocytes Auto (Bld) [Pure # fraction] 0.0 E9/L Normal 0.0 - 0.2 E9/L [facility] HemeAutoSS Eosinophils/100 WBC (Bld) 0.3 % Normal 0.0 - 8.0 % [facility] HemeAutoSS Eosinophils/Leukocytes Auto (Bld) [Pure # fraction] 0.0 E9/L Normal 0.0 - 0.5 E9/L [facility] HemeAutoSS Lymphocytes/100 WBC (Bld) 7.1 % Low 14.0 - 50.0 % [facility] HemeAutoSS Lymphocytes/Leukocytes Auto (Bld) [Pure # fraction] 0.5 E9/L Low 1.0 - 4.0 E9/L [facility] HemeAutoSS Monocytes/100 WBC (Bld) 7.3 % Normal 4.0 - 14.0 % [facility] HemeAutoSS Monocytes/Leukocytes Auto (Bld) [Pure # fraction] 0.6 E9/L Normal 0.2 - 1.0 E9/L [facility] HemeAutoSS Neutrophils/100 WBC (Bld) 85.1 % High 36.0 - 75.0 % [facility] HemeAutoSS Neutrophils/Leukocytes Auto (Bld) [Pure # fraction] 6.5 E9/L Normal 2.0 - 7.5 E9/L [facility] HemeAutoSS HEMATOLOGYOrdered By: Raeann Holden on 03-02-2023 Erythrocyte distribution width (RBC) [Ratio] 13.0 % Normal 10.9 - 14.2 % [facility] HemeAutoSS Hematocrit (Bld) [Volume fraction] 24.2 % Low 37.7 - 49.0 % [facility] HemeAutoSS Hemoglobin (Bld) [Mass/Vol] 8.2 g/dL Low 13.5 - 17.5 gm/dL [facility] HemeAutoSS MCH (RBC) [Entitic mass] 31.3 pg Normal 27.0 - 34.0 pg [facility] HemeAutoSS MCHC (RBC) [Mass/Vol] 34.1 g/dL Normal 31.4 - 36.0 gm/dL [facility] HemeAutoSS MCV (RBC) [Entitic vol] 91.9 fL Normal 80.0 - 100.0 fL [facility] HemeAutoSS Platelet mean volume (Bld) [Entitic vol] 6.7 fL Normal 6.4 - 10.8 fL [facility] HemeAutoSS Platelets (Bld) [#/Vol] 244.0 E9/L Normal 150. 0 - 500.0 E9/L [facility] HemeAutoSS RBC (Bld) [#/Vol] 2.6 E12/L Low 4.3 - 5.9 E12/L [facility] HemeAutoSS WBC corrected for nucl RBC Auto (Bld) [#/Vol] 7.6 E9/L Normal 4.0 - 11.0 E9/L [facility] HemeAutoSS Interdisciplinary Note - Reza e Manageron 03-02-2023 Interdisciplinary Note - Parking Lot Manager Normal [facility] Comment on above: Result Comment: Elec tronically Signed By: Arpita WALKER, Christine\.mirela\Date and Time Signed: 03/02/23 11:51 EDT Interdisciplinary Note - [place] n 03-02-2023 Interdisciplinary Note - OT Normal [facility] Interdisciplinary Note - PTo n 03-02-2023 Interdisciplinary Note - PT Normal [facility] Lipid Panelon 03-02-2023 Cholesterol [Mass/Vol] 101 mg/dL Low 120-200 Fi [facility] Comment on above: Performed By: #### 2 156497, 3802254, 0910249, 1489075, 71715886, 6790445000, 7955560 ####[facility] [address] [place] [address] Cholesterol in HDL [Mass/Vol] 20 mg/dL Invalid Interpretation Code [facility] Comment on above: Result Comment: HDL > or equal to 60 mg/dL: Low cardiovascular riskHDL < 40 mg/dL : High cardiovascular risk Performed By: #### 2 694043, 7091234, 4973394, 9421094, 63496827, 2225220566, 2250537 ####[facility] [address] [place] [address] Cholesterol in LDL [Mass/Vol] 47 mg/dL Normal <=129 [facility] Comment on above: Performed By: #### 2 925033, 5998023, 3234526, 8982792, 26266309, 9937315604, 2290260 ####[facility] [address] [place] [address] Cholesterol in VLDL [Mass/Vol] 39 mg/dL Normal 7-40 [facility] Comment on above: Performed By: #### 2 567181, 4700806, 7760986, 4016114, 78443048, 4362528076, 0967250 ####[facility] [address] [place] [address] Triglyceride [Mass/Vol] 196 mg/dL High <=149 [facility] Comment on above: Performed By: #### 2 921928, 6989325, 7721802, 3081735, 63548247, 3214597723, 3404822 ####[facility] [address] [place] [address] MICRO OTHER TESTSOrdered By: Gladis Holden on 03-02-2023 Rapid COV Int NEG Ctl Pass (03/02/23 3:18 AM) Normal [facility] [place] Man Sero Rapid COV Int POS Ctl Pass (03/02/23 3:18 AM) Normal [facility] [place] Man Sero SARS-CoV+SARS-CoV-2 (COVID-19) Ag IA.rapid Ql (Resp) Not Detected (03/02/23 3:18 AM) Normal Not Detected [facility] [place] Man Sero Magnesiumon 03-02-2023 Magnesium [Mass/Vol] 1.7 mg/dL Normal 1.3-2.4 [facility] Comment on above: Performed By: #### 2 581459, 4120797, 5409152, 8202567, 96391611, 2720027069, 0700226 ####[facility] [address] [place] [address] Monitor Recordon 03-02-2023 Monitor Record [id number]#1.00CD :127 Normal [facility] Monitor Record [id number]#1.00CD :127 Normal [facility] No Panel InformationOrdered By: ANGPROCESSSERVER MICROBIOLOGY on 03-02-2023 Blood Culture Charcoal No growth at 2 da ys. Final to follow at [address] [facility] Blood Culture Charcoal No growth at 2 da ys. Final to follow at [address] [facility] Procalcitoninon 03-02-2023 Procalcitonin .18 ng/mL Normal .00-.50 [facility] Comment on above: Result Comment: <0.5 ng/mL Low risk of severe sepsis and/or shock>2.0 ng/mL High risk of severe sepsis and/or shockConcentrations under 0.5 ng/mL do not exclude local infections or systemic infections in their initial stages (e.g.. under six hours from onset of illness). PCT concentrations between 0.5 and 2.0 ng/mL should be interpreted with consideration of the patient's history. In this range, it is recommended to retest PCT within 6 to 24 hours. Performed By: #### 2 614030, 4648034, 0945667, 9208414, 85391154, 0475995676, 5787934 ####[facility] [address] [place] [address] Progress Note - Pharmacyon 0 03-02-2023 Progress Note - Pharmacy Normal [facility] Progress Note-Physicianon Progress Note-Physician Normal [facility] Comment on above: Result Comment: Elec tronically Signed By: Mark GAMEZ, Padmaja\.br\Date and Time Signed: 03/02/23 13:14 EDT Rapid COVID Antigen ([facility] [place])on 03-02-2023 Rapid COV Int NEG Ctl Pass Normal Fis [facility] Comment on above: Performed By: #### 2 [id number] ####[address] [place] [address] Rapid COV Int POS Ctl Pass Normal Fis [facility] Comment on above: Performed By: #### 2 [id number] ####[address] [address] SARS-CoV+SARS-CoV-2 (COVID-19) Ag IA.rapid Ql (Resp) Not detected Normal Not Detected [facility] Comment on above: Result Comment: [employer] Veritor? System for Rapid Detection of SARS-CoV-2 is a chromatographic digital immunoassay intended for the direct and qualitative detection of SARS-CoV-2 nucleocapsid antigens in nasal swabs from individuals who are suspected of COVID-19 by their healthcare provider within the first five days of the onset of symptoms. Negative results should be treated as presumptive, do not rule out SARS-CoV-2 infection and should not be used as the sole basis for treatment or patient management decisions, including infection control decisions. Negative results should be considered in the context of a patient?s recent exposures, history and the presence of clinical signs and symptoms consistent with COVID-19, and confirmed with a molecular assay, if necessary, for patient management. For in vitro diagnostic use. In the [facility], only for use under an Emergency Use Authorization. In the [place], this test has not been FDA cleared or approved; this test has been authorized by FDA under an EUA for use by authorized laboratories; use by laboratories certified under the CLIA, 42 U.S.C. ?263a, that meet requirements to perform moderate, high, or waived complexity tests and at the Point of Care (POC), i.e., in patient care settings operating under a CLIA Certificate of Waiver, Certificate of Compliance, or Certificate of Accreditation.This test has been authorized only for the detection of proteins from SARS-CoV-2, not for any other viruses or pathogens; and, in the [place], this test is only authorized for the duration of the declaration that circumstances exist justifying the authorization of emergency use of in vitro diagnostics for detection and/or diagnosis of the virus that causes COVID-19 under Section 564(b)(1) of the Act, 21 U.S.C. ? 360bbb-3(b)(1), unless the authorization is terminated or revoked sooner. Performed By: #### 2 [id number] ####[place] [address] ADMITTED TO INTENSIVE CARE UNIT FOR CONDITION OF INTEREST:FIND:PT: NO Normal [facility] Comment on above: Performed By: #### 2 [id number] ####[place] [address] EMPLOYED IN A HEALTHCARE SETTING:FIND:PT: NO Normal [facility] Comment on above: Performed By: #### 2 [id number] ####[place] [address] FIRST TEST FOR CONDITION OF INTEREST:FIND:PT: YES Normal [facility] Comment on above: Performed By: #### 2 [id number] ####[place] [address] HAS SYMPTOMS RELATED TO CONDITION OF INTEREST:FIND:PT: YES Normal [facility] Comment on above: Performed By: #### 2 [id number] ####[place] [address] HOSPITALIZED FOR CONDITION OF INTEREST:FIND:PT: YES Normal [facility] Comment on above: Performed By: #### 2 [id number] ####[facility] [address] [place] [address] STATUS:FIND:PT: NO Normal [facility] Comment on above: Performed By: #### 2 [id number] ####[address] [place] [address] RESIDES IN A CONGREGATE CARE SETTING:FIND:PT: YES Normal [facility] Comment on above: Performed By: #### 2 [id number] ####[address] [place] [address] XR Abdomen 1 Viewon 03-02-20 XR Abdomen 1 View Normal [facility] eGFRon 03-02-2023 GFR/1.73 sq M.predicted among non-blacks MDRD (S/P/Bld) [Vol rate/Area] 40 mL/min/1.73 m2 Low >=59 [facility] Comment on above: Order Comment: Order added by Discern Expert. 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 Kidney failure is indicated at less than 15 mL/min/1.73m2. Performed By: #### 2 330932, 8655936, 3327480, 5898394, 13468285, [id number], 4893100 ####[facility] [address] [place] [address] Auto Diffon 03-01-2023 Basophils/100 WBC (Bld) 0.3 % Normal 0.0-2.0 [facility] Comment on above: Order Comment: Order Added by Discern Expert. Performed By: #### 2 606075, 6743856, 4661037, 6113456, 9311597, 7199117, 9430587, 3659075, 80628117, 73105254, 0694274, 38276427 ####[facility] [address] [place] [address] Basophils/Leukocytes Auto (Bld) [Pure # fraction] 0.0 E9/L Normal 0.0-0.2 [facility] Comment on above: Order Comment: Order Added by Discern Expert. Performed By: #### 2 804681, 1195440, 2846217, 1552462, 8275430, 8518151, 2354575, 5605273, 35251449, 49997351, 1739120, 16084427 ####[facility] [address] [place] [address] Eosinophils/100 WBC (Bld) 2.6 % Normal 0.0-8.0 [facility] Comment on above: Order Comment: Order Added by Discern Expert. Performed By: #### 2 528352, 3023088, 9226886, 8633818, 7402147, 1990094, 1598036, 5081483, 16842069, 59115445, 5313363, 18400196 ####[address] [address] Eosinophils/Leukocytes Auto (Bld) [Pure # fraction] 0.2 E9/L Normal 0.0-0.5 [facility] Comment on above: Order Comment: Order Added by Discern Expert. Performed By: #### 2 372178, 0982864, 9630077, 6943744, 2034180, 6028034, 4466219, 7125496, 02880184, 15376885, 4574636, 99068131 ####[address] [place] [address] Lymphocytes/100 WBC (Bld) 14.1 % Normal 14.0-50.0 [facility] Comment on above: Order Comment: Order Added by Discern Expert. Performed By: #### 2 970987, 9819876, 8104900, 1645075, 7097483, 4894958, 4386070, 2709131, 53589469, 78379608, 3089966, 30482831 ####[address] [place] [address] Lymphocytes/Leukocytes Auto (Bld) [Pure # fraction] 1.2 E9/L Normal 1.0-4.0 [facility] Comment on above: Order Comment: Order Added by Discern Expert. Performed By: #### 2 008978, 7087574, 3200682, 3073650, 5636616, 0045934, 7896956, 8160077, 01785276, 23521340, 3722808, 63064122 ####[facility] [address] [place] [address] Monocytes/100 WBC (Bld) 11.2 % Normal 4.0-14.0 [facility] Comment on above: Order Comment: Order Added by Discern Expert. Performed By: #### 2 116711, 0458417, 4153988, 1317060, 1251422, 8380884, 8910948, 4547420, 35010573, 41728793, 3455835, 11283285 ####[address] [place] [address] Monocytes/Leukocytes Auto (Bld) [Pure # fraction] 0.9 E9/L Normal 0.2-1.0 [facility] Comment on above: Order Comment: Order Added by Discern Expert. Performed By: #### 2 783254, 7199770, 2894642, 5487387, 9929271, 6919968, 1028815, 6635074, 92764806, 36683965, 2315427, 36191332 ####[facility] [address] [place] [address] Neutrophils/100 WBC (Bld) 71.8 % Normal 36.0-75.0 [facility] Comment on above: Order Comment: Order Added by Discern Expert. Performed By: #### 2 790323, 1948024, 9063330, 2766141, 7888327, 7746484, 1729511, 8797963, 13370409, 07390613, 0132941, 63870174 ####[facility] [address] [place] [address] Neutrophils/Leukocytes Auto (Bld) [Pure # fraction] 6.0 E9/L Normal 2.0-7.5 [facility] Comment on above: Order Comment: Order Added by Discern Expert. Performed By: #### 2 309173, 9599041, 7084882, 2088946, 5271730, 4519125, 7852665, 5030535, 63223668, 90235541, 9176234, 49433554 ####[facility] [address] [place] [address] BMPon 03-01-2023 Creatinine [Mass/Vol] 1.7 mg/dL High 0.5-1.3 [facility] Comment on above: Performed By: #### 2 947602, 9497667, 4360195, 9550409, 0773139, 9640286, 5535593, 9759905, 61740955, 83383023, 7412937, 88820775 ####[facility] [address] [place] [address] Urea nitrogen [Mass/Vol] 39 mg/dL High 5-21 [facility] Comment on above: Performed By: #### 2 085331, 6869253, 9452246, 9085993, 5333978, 5283010, 0373152, 4527086, 97489077, 14350274, 8292343, 04947662 ####[facility] [address] [place] [address] Urea nitrogen/Creatinine [Mass ratio] 23 No Units High 10-20 [facility] Comment on above: Performed By: #### 2 930711, 2590121, 9282809, 2573397, 1931324, 8367721, 7139425, 5416344, 27530700, 02492977, 7847085, 97053307 ####[facility] [address] [place] [address] Anion gap [Moles/Vol] 13 mmol/L Normal 6-16 [facility] Comment on above: Performed By: #### 2 334797, 4029478, 7422814, 5870134, 2890833, 4496039, 4651757, 4620644, 88414109, 78625887, 5331020, 21413397 ####[facility] [address] [place] [address] Calcium [Mass/Vol] 9.0 mg/dL Normal 8.9-11.1 [facility] Comment on above: Performed By: #### 2 293898, 0580643, 6937710, 4165457, 3864567, 5161845, 7967777, 1155680, 86196035, 61219214, 1199885, 85483026 ####[facility] [address] [place] [address] Chloride [Moles/Vol] 106 mmol/L Normal 101-111 [facility] Comment on above: Performed By: #### 2 708347, 8374088, 6669120, 8994558, 1426508, 8187047, 7210272, 2030777, 20619645, 86382448, 1807633, 55963297 ####[facility] [address] [place] [address] CO2 [Moles/Vol] 22 mmol/L Normal 21-31 [facility] Comment on above: Performed By: #### 2 233155, 9910918, 8881159, 8893532, 3695887, 9111423, 8753025, 8754654, 50970007, 99299813, 5124674, 23092885 ####[facility] [address] [place] [address] Glucose [Mass/Vol] 195 mg/dL Normal 55-199 [facility] Comment on above: Result Comment: If t his glucose result represents a fasting glucose, interpretation should refer to the following reference range: 55-99 mg/dL Performed By: #### 2 021728, 4172198, 7241693, 6007905, 2304949, 1423077, 5888542, 6430412, 66382789, 56913091, 6271095, 96837346 ####[facility] [address] [place] [address] Potassium [Moles/Vol] 5.2 mmol/L Normal 3.5-5.3 [facility] Comment on above: Performed By: #### 2 239457, 3881475, 8124498, 1737324, 6783266, 8245914, 5997029, 8926578, 05205238, 81179936, 5904504, 84907801 ####[facility] [address] [place] [address] Sodium [Moles/Vol] 136 mmol/L Normal 135-145 [facility] Comment on above: Performed By: #### 2 612757, 4470756, 4889772, 1480859, 4539015, 3434048, 6048884, 7944308, 65424610, 58404046, 7183557, 91427788 ####[facility] [address] [place] [address] CBC w/ Auto Diffon Erythrocyte distribution width (RBC) [Ratio] 13.0 % Normal 10.9-14.2 [facility] Comment on above: Performed By: #### 2 675944, 3571061, 9491482, 1318938, 2706587, 0858459, 6975865, 6935466, 16563508, 59025293, 3813518, 56632537 ####[facility] [address] [place] [address] Hematocrit (Bld) [Volume fraction] 28.7 % Low 37.7-49.0 [facility] Comment on above: Performed By: #### 2 191175, 8563128, 3409426, 8566163, 7110816, 9764869, 4609476, 3384641, 18654663, 66522658, 3690255, 68334202 ####[facility] [address] [place] [address] Hemoglobin (Bld) [Mass/Vol] 9.5 g/dL Low 13.5-17.5 [facility] Comment on above: Performed By: #### 2 862057, 4843854, 0731376, 5610987, 5038120, 8384188, 6506852, 7404385, 94848656, 60771088, 4758001, 89290584 ####[facility] [address] [place] [address] MCH (RBC) [Entitic mass] 30.3 pg Normal 27.0-34.0 [facility] Comment on above: Performed By: #### 2 563912, 4473029, 4983484, 0435583, 8690120, 1685735, 2237490, 6555771, 66216611, 88904139, 3190029, 96257387 ####[facility] [address] [place] [address] MCHC (RBC) [Mass/Vol] 33.0 g/dL Normal 31.4-36.0 [facility] Comment on above: Performed By: #### 2 112543, 7170502, 4140748, 9815350, 8531984, 9491103, 9571525, 8550932, 67279698, 11248658, 7934322, 91123845 ####[facility] [address] [place] [address] MCV (RBC) [Entitic vol] 91.9 fL Normal 80.0-100.0 [facility] Comment on above: Performed By: #### 2 396012, 5368126, 0161901, 5907359, 9416325, 6899182, 6587076, 3510174, 41445506, 08596536, 6948803, 24922166 ####[facility] [address] [place] [address] Platelet mean volume (Bld) [Entitic vol] 6.4 fL Normal 6.4-10.8 [facility] Comment on above: Performed By: #### 2 369206, 8154503, 3104501, 1728404, 6598866, 7125600, 9395720, 1038457, 54524293, 90833846, 3263426, 35810669 ####[facility] [address] [place] [address] Platelets (Bld) [#/Vol] 289.0 E9/L Normal 150.0-500.0 [facility] Comment on above: Performed By: #### 2 602449, 6801752, 3796278, 8454340, 4569905, 4944053, 2058629, 4882146, 14931557, 63749403, 1349414, 04550621 ####[facility] [address] [place] [address] RBC (Bld) [#/Vol] 3.1 E12/L Low 4.3-5.9 [facility] Comment on above: Performed By: #### 2 596621, 1992865, 6153937, 7863954, 5049503, 7064063, 4215340, 5331006, 07080722, 68481669, 8504377, 53444238 ####[facility] [address] [place] [address] WBC corrected for nucl RBC Auto (Bld) [#/Vol] 8.3 E9/L Normal 4.0-11.0 [facility] Comment on above: Performed By: #### 2 663570, 9269865, 1804392, 8328394, 7623317, 7250388, 5899595, 3499524, 28989173, 80258789, 8341857, 93645654 ####[facility] [address] [place] [address] CHEMISTRYOrdered By: SYSTEM SYSTEM on 03-01-2023 Troponin I.cardiac [Mass/Vol] 16.70 pg/mL Normal 15.90 - 38.40 pg/mL [facility] Troponin I.cardiac [Mass/Vol] 16.00 pg/mL Normal 15.90 - 38.40 pg/mL [facility] Iron [Mass/Vol] 81 ug/dL Normal 35 - 153 mcg/dL [facility] Iron binding capacity [Mass/Vol] 259 ug/dL Normal 250 - 400 mcg/dL [facility] LDH [Catalytic activity/Vol] 157 [iU]/d Normal 93 - 218 Int._Unit/L [facility] Transferrin [Mass/Vol] 185 mg/dL Low 200 - 370 mg/dL [facility] Troponin I.cardiac [Mass/Vol] 15.80 pg/mL Low 15.90 - 38.40 pg/mL [facility] TSH Qn 2.64 m[IU]/L Normal 0.34 - 5.60 mcIU/mL [facility] Albumin [Mass/Vol] 3.2 g/dL Low 3.3 - 5.0 gm/dL [facility] Albumin/Globulin [Mass ratio] 0.8 {ratio} Low 1.1 - 2.2 [facility] ALP [Catalytic activity/Vol] 110 [iU]/d High 21 - 98 Int._Unit/L [facility] ALT No additional P-5'-P [Catalytic activity/Vol] 13 [iU]/d Normal 6 - 46 Int._Unit/L [facility] AST [Catalytic activity/Vol] 17 [iU]/d Normal 5 - 43 Int._Unit/L [facility] Bilirubin [Mass/Vol] 0.4 mg/dL Normal 0.0 - 1 .1 mg/dL [facility] Bilirubin.direct [Mass/Vol] mg/dL Normal 0.1 - 0.4 mg/dL [facility] Bilirubin.indirect [Mass or moles/Vol] Unable to Calculate mg/dL Invalid Interpretation Code 0.1 - 0.9 mg/dL [facility] Cobalamin (Vitamin B12) [Mass/Vol] 531 pg/mL Normal 50 - 1500 pg/mL [facility] Ferritin [Mass/Vol] 426 ng/mL High 24 - 336 ng/mL [facility] Folate [Mass/Vol] 13.6 ng/mL Normal >=6.7ng/mL [facility] Globulin (S) [Mass/Vol] 4.2 g/dL High 1.4 - 4.0 gm/dL [facility] Lipase [Catalytic activity/Vol] 37 U/L Normal 13 - 58 unit/L [facility] Protein [Mass/Vol] 7.4 g/dL Normal 6.0 - 7.8 gm/dL [facility] COAGULATIONOrdered By: Sandie De Los Santos on 03-01-2023 aPTT Coag (PPP) [Time] 34.0 s Normal 25.1 - 36.5 second(s) [facility] [place] Coag INR Coag (PPP) [Relative time] 1.0 {INR} Invalid Interpretation Code [facility] [place] Auto Coag PT Coag (PPP) [Time] 11.4 s Normal 9.4 - 1 2.5 second(s) [facility] [place] Auto Coag Capillary Glucose POCon 02-03 Glucose [Mass/Vol] 138 mg/dL High 55-99 [facility] Comment on above: Result Comment: Eleno king RN/ Performed By: #### 2 [id number] ####[facility] [address] [place] [address] Glucose [Mass/Vol] 136 mg/dL High 55-99 [facility] Comment on above: Result Comment: Eleno ALEXIS Performed By: #### 2 [id number] ####[facility] [address] [place] [address] Consent for Treatmenton 02-03 Consent for Treatment [id number]#[id number]: 127 Normal [facility] Consultation Noteon 03-01-20 Consultation Note Normal [facility] Comment on above: Result Comment: Elec tronically Signed By: Pako GAMEZ, Jayme\.br\Date and Time Signed: 03/01/23 17:06 EDT ED Clinical Summaryon 2022 ED Clinical Summary Normal [facility] ED Patient Education Noteon 03-01-2023 ED Patient Education Note Normal [facility] ED Patient Summaryon 023 ED Patient Summary Normal [facility] EMS Documentationon 03-01-20 EMS Documentation Normal [facility] EMS Documentation Normal [facility] Ferritinon 03-01-2023 Ferritin [Mass/Vol] 426 ng/mL High 24-336 [facility] Comment on above: Result Comment: NORM ALS MEN <30 YRS 16-132 ng/mL MEN >30 YRS 8-338 ng/mL WOMEN (PREMEN) 6-104 ng/mL WOMEN (POSTMEN) 12-210 ng/mL Performed By: #### 2 392910, 6521065, 6420056, 9087499, 9622110, 7658917, 2735572, 5903611, 76625210, 77033789, 1595323, 88079003 ####[facility] [address] [place] [address] Folateon 03-01-2023 Folate [Mass/Vol] 13.6 ng/mL Normal >=6.7 [facility] Comment on above: Performed By: #### 2 236499, 5317509, 7982346, 7077486, 4270194, 0800603, 7024932, 3435535, 49067711, 76362829, 3538202, 87886810 ####[facility] [address] [place] [address] HEMATOLOGYOrdered By: SYSTEM SYSTEM on 03-01-2023 Basophils/100 WBC (Bld) 0.3 % Normal 0.0 - 2.0 % [facility] Basophils/Leukocytes Auto (Bld) [Pure # fraction] 0.0 E9/L Normal 0.0 - 0.2 E9/L [facility] Eosinophils/100 WBC (Bld) 2.6 % Normal 0.0 - 8.0 % [facility]Auto[facility] Eosinophils/Leukocytes Auto (Bld) [Pure # fraction] 0.2 E9/L Normal 0.0 - 0.5 E9/L [facility] Lymphocytes/100 WBC (Bld) 14.1 % Normal 14.0 - 50.0 % [facility] Lymphocytes/Leukocytes Auto (Bld) [Pure # fraction] 1.2 E9/L Normal 1.0 - 4.0 E9/L [facility]Auto[facility] Monocytes/100 WBC (Bld) 11.2 % Normal 4.0 - 14.0 % [facility] Monocytes/Leukocytes Auto (Bld) [Pure # fraction] 0.9 E9/L Normal 0.2 - 1.0 E9/L [facility] Neutrophils/100 WBC (Bld) 71.8 % Normal 36.0 - 75.0 % [facility]Auto[facility] Neutrophils/Leukocytes Auto (Bld) [Pure # fraction] 6.0 E9/L Normal 2.0 - 7.5 E9/L [facility]eAuto[facility] HEMATOLOGYOrdered By: Thai Colby on 03-01-2023 Erythrocyte distribution width (RBC) [Ratio] 13.0 % Normal 10.9 - 14.2 % [facility] Hematocrit (Bld) [Volume fraction] 28.7 % Low 37.7 - 49.0 % [facility] Hemoglobin (Bld) [Mass/Vol] 9.5 g/dL Low 13.5 - 17.5 gm/dL [facility] MCH (RBC) [Entitic mass] 30.3 pg Normal 27.0 - 34.0 pg [facility] MCHC (RBC) [Mass/Vol] 33.0 g/dL Normal 31.4 - 36.0 gm/dL [facility] MCV (RBC) [Entitic vol] 91.9 fL Normal 80.0 - 100.0 fL [facility] Platelet mean volume (Bld) [Entitic vol] 6.4 fL Normal 6.4 - 10.8 fL [facility] HemeAutoSS Platelets (Bld) [#/Vol] 289.0 E9/L Normal 150. 0 - 500.0 E9/L [facility] RBC (Bld) [#/Vol] 3.1 E12/L Low 4.3 - 5.9 E12/L [facility] WBC corrected for nucl RBC Auto (Bld) [#/Vol] 8.3 E9/L Normal 4.0 - 11.0 E9/L [facility] HemeAutoSS HEMATOLOGYOrdered By: Monet Cantu on 03-01-2023 Reticulocytes/100 RBC (Bld) 0.8 % Normal 0.5 - 1.5 % [facility] Comment on above: Result Comment: This Reticulocyte Count Has Been Corrected For Anemia Hep Func Panelon 03-01-2023 Bilirubin.indirect [Mass or moles/Vol] UTC Abnormal 0.1-0.9 [facility] Comment on above: Result Comment: Resu lt verified by Discern Rule. Performed result UTC (Unable to Calculate) was sent as an Alpha code due the inability to calculate a valid numeric value. Performed By: #### 2 112124, 8476917, 9002904, 7519960, 3863234, 9988407, 2574371, 8722337, 82375603, 67316546, 2211687, 03247568 ####[facility] [address] [place] [address] Albumin [Mass/Vol] 3.2 g/dL Low 3.3-5.0 [facility] Comment on above: Performed By: #### 2 745311, 7065069, 2317560, 8613113, 6925723, 2269606, 1622513, 6792133, 32646675, 86460058, 9095745, 63421968 ####[address] [place] [address] Albumin/Globulin (S) [Mass conc ratio] 0.8 Low 1.1-2.2 [facility] Comment on above: Performed By: #### 2 040006, 9963192, 0464943, 7716814, 7091239, 2623935, 7542993, 0484637, 94310902, 77438256, 1342504, 52158106 ####[address] [place] [address] ALP [Catalytic activity/Vol] 110 Int._Unit/L High 21-98 [facility] Comment on above: Performed By: #### 2 626895, 0013705, 9515582, 0119289, 2259071, 2037501, 8245260, 0220174, 61932847, 30026093, 6900781, 71154178 ####[facility] [address] [place] [address] ALT No additional P-5'-P [Catalytic activity/Vol] 13 Int._Unit/L Normal 6-46 [facility] Comment on above: Performed By: #### 2 043068, 8908054, 2128710, 5578153, 3855694, 8476826, 9994696, 8818360, 40589451, 03719822, 6099168, 12161319 ####[address] [place] [address] AST [Catalytic activity/Vol] 17 Int._Unit/L Normal 5-43 [facility] Comment on above: Performed By: #### 2 950661, 3058463, 2569420, 9622180, 0271291, 6006377, 3069959, 6894660, 13170677, 79154084, 9097316, 16618223 ####[facility] [address] [place] [address] Bilirubin [Mass/Vol] 0.4 mg/dL Normal 0.0-1.1 [facility] Comment on above: Performed By: #### 2 549167, 6266836, 4959164, 7057267, 1995278, 0934664, 4980053, 8524770, 30463246, 91161444, 1085023, 71024389 ####[facility] [address] [place] [address] Globulin (S) [Mass/Vol] 4.2 g/dL High 1.4-4.0 [facility] Comment on above: Performed By: #### 2 957067, 1078869, 0186285, 3231854, 3547642, 3720424, 9127746, 8878670, 44114704, 35346824, 3175807, 95029248 ####[facility] [address] [place] [address] Protein [Mass/Vol] 7.4 g/dL Normal 6.0-7.8 [facility] Comment on above: Performed By: #### 2 715098, 9072525, 3134934, 0611829, 6229342, 2300704, 2138033, 8747082, 22842554, 07615488, 3970617, 52068556 ####[facility] [address] [place] [address] Bilirubin.direct [Mass/Vol] mg/dL Normal 0.1-0.4 [facility] Comment on above: Performed By: #### 2 876123, 0737082, 3083331, 3418651, 7006063, 8889552, 3791285, 2314437, 60219012, 48990410, 4528082, 43335300 ####[facility] [address] [place] [address] Ironon 03-01-2023 Iron [Mass/Vol] 81 microgram/dL Normal 35-153 [facility] Comment on above: Performed By: #### 1 0806570, 1866019, 8653807, 48841733, 44706981 ####[facility] [address] [place] [address] LDHon 03-01-2023 LDH [Catalytic activity/Vol] 157 Int._Unit/L Normal 93-218 [facility] Comment on above: Performed By: #### 1 5795623, 5115885, 3560658, 28411157, 58527286 ####[address] [place] [address] LEVOFLOXACIN:SUSC:PT:ISOLATE :ORDQN:MICOrdered By: Rashida Yao on 03-01-2023 levoFLOXacin STEPHIE [Susc] 75,000 cfu/ml Pr oteus mirabilis [facility] Lipase Levelon 03-01-2023 Lipase [Catalytic activity/Vol] 37 U/L Normal 13-58 [facility] Comment on above: Performed By: #### 2 856877, 9194345, 9265334, 4268938, 6689411, 4781950, 1689611, 0844648, 56829204, 63877326, 5425268, 14029150 ####[facility] [address] [place] [address] Monitor Recordon 03-01-2023 Monitor Record [id number]#1.00CD :127 Normal [facility] Monitor Record [id number]#1.00CD :127 Normal [facility] Recordson 03-01 Penitentiary Records [id number]#1.00CD: 127 Normal [facility] Outside Recordson 03-01-2023 Outside Records [id number]#1.00CD: 127 Normal [facility] PT & PTTon 03-01-2023 aPTT Coag (PPP) [Time] 34.0 second(s) Normal 25.1-36.5 [facility] Comment on above: Result Comment: Para meter 15 days - 4 weeks 1 - 5 months 6 - 11 months 1 - 5 years 6 - 10 years 11 - 17 years PTT Mean: 35.4 (27.6-45.6) Mean: 33.5 (24.8-40.7) Mean: 32.4 (25.1-40.7) Mean: 31.6 (24.0-39.2) Mean: 31.6 (26.9-38.7) Mean: 31.0 (24.6-38.4) Pediatric Reference ranges were obtained from a study by danielito Gutierrez al. prepared from 1437 samples obtained at 7 different centers using the same coagulation reagent and instrumentation as [facility] [place] [facility] [place]. Currently there are no coagulation studies available worldwide for children to 14 days, and no normal ranges. Heparin therapeutic range (represented by Anti-Factor Xa activity of 0.2 - 0.4 U/mL) corresponds to PTT of 56.6 - 109.0 sec. Performed By: #### 2 [id number], [id number], [id number], [id number], [id number], [id number], [id number], 3294786, [id number], [id number], [id number], [id number] ####[facility] [address] [place] [address] INR Coag (PPP) [Relative time] 1.0 {INR} Invalid Interpretation Code [facility] Comment on above: Result Comment: INR results are specifically intended to assess patients stabilized on long-term Anticoagulation therapy suggested INR?s ?Less Intensive Anticoagulation? 2.0 ? 3.0Conventional Range 3.0 ? 4.5 Performed By: #### 2 [id number], [id number], [id number], 4428031, 9446348, 0133253, 0248587, [id number], [id number], [id number], [id number], [id number] ####[facility] [address] [place] [address] PT Coag (PPP) [Time] 11.4 second(s) Normal 9.4-12.5 [facility] Comment on above: Result Comment: 15 d ays - 4 weeks 1 - 5 months 6 -11 months 1-5 years 6-10 years 11 -17 years Mean: 11.2 (9.5-12.6) Mean: 11.0 (9.7-12.8) Mean: 11.0 (9.8-13.0) Mean: 11.3 (9.9-13.4) Mean: 11.7 (10.0-14.6) Mean: 11.8 (10.0 - 14.1) Pediatric Reference ranges were obtained from a study by danielito Gutierrez al. prepared from 1437 samples obtained at 7 different centers using the same coagulation reagent and instrumentation as [facility] [place]. Currently there are no coagulation studies available worldwide for children to 14 days, and no normal ranges. Performed By: #### 2 389561, 2297026, 3852049, 9941124, 0844060, 3863011, 5062866, 1764452, 19971833, 90894819, 7610167, 08452005 ####[facility] [address] [place] [address] Pre-Arrival Noteon Pre-Arrival Note Normal [facility] Progress Note-Nurseon 2022 Progress Note-Nurse Patient arrived to [facility] with R upper arm PICC. Dressing was not intact and per [facility] Phillip last used on02/22. Per hospitalist orders, PICC line removed by this RN. Tip of PICC line intact. Dry dressing applied. Normal [facility] Progress Note-Nurse Normal Shila [facility] Retic Counton 03-01-2023 Reticulocytes/100 RBC (Bld) 0.8 % Normal 0.5-1.5 [facility] Comment on above: Result Comment: This Reticulocyte Count Has Been Corrected For Anemia Performed By: #### 2 617860, 4215109, 7289150, 8877260, 6128660, 5981392, 0361460, 3877952, 36715555, 05311086, 8140152, 19909779 ####[facility] [address] [place] [address] TIBC Calculatedon 03-01-2023 Iron binding capacity [Mass/Vol] 259 microgram/dL Normal 250-400 [facility] Comment on above: Performed By: #### 1 4263581, 4521106, 9978989, 54551791, 81637411 ####[facility] [address] [place] [address] Transferrin [Mass/Vol] 185 mg/dL Low 200-370 [facility] Comment on above: Performed By: #### 1 4507244, 6314734, 9421110, 07219556, 18293497 ####[facility] [address] [place] [address] TSH With T4fr Reflexon 03-01 TSH Qn 2.64 m[IU]/L Normal 0.34-5.60 [facility] Comment on above: Performed By: #### 1 6774593, 6958281, 0156146, 08945279, 46462235 ####[facility] [address] [place] [address] Troponin 0 Hr.on 03-01-2023 Troponin I.cardiac [Mass/Vol] 15.20 pg/mL Low 15.90-38.40 [facility] Comment on above: Result Comment: The 95% CI (Confidence Interval) PPV (Positive Predictive Value) for myocardial infarction in females is 38 pg/mL, in males 51 pg/mL. The results should be used in conjunction with clinical conditions of myocardial infarction.(Access High Sensitivity Troponin I Instructions For Use, Cindi Salem, June 2018) Performed By: #### 2 802342, 4794977, 2995581, 2196195, 2073638, 8379557, 0617943, 4143043, 03830359, 16098797, 6650551, 14524206 ####[facility] [address] [place] [address] Troponin 3 Hr.on 03-01-2023 Troponin I.cardiac [Mass/Vol] 15.80 pg/mL Low 15.90-38.40 [facility] Comment on above: Result Comment: The 95% CI (Confidence Interval) PPV (Positive Predictive Value) for myocardial infarction in females is 38 pg/mL, in males 51 pg/mL. The results should be used in conjunction with clinical conditions of myocardial infarction.(Access High Sensitivity Troponin I Instructions For Use, [employer], June 2018) Performed By: #### 1 4048647, 4393798, 7438775, 23269004, 19267386 ####[facility] [address] [place] [address] Troponin 6 Hr.on 03-01-2023 Troponin I.cardiac [Mass/Vol] 16.00 pg/mL Normal 15.90-38.40 [facility] Comment on above: Result Comment: The 95% CI (Confidence Interval) PPV (Positive Predictive Value) for myocardial infarction in females is 38 pg/mL, in males 51 pg/mL. The results should be used in conjunction with clinical conditions of myocardial infarction.(Plumzi High Sensitivity Troponin I Instructions For Use, [employer]June 2018) Performed By: #### 1 [id number] ####[facility] [address] [place] [address] Troponin 9 Hr.on 03-01-2023 Troponin I.cardiac [Mass/Vol] 16.70 pg/mL Normal 15.90-38.40 [facility] Comment on above: Result Comment: The 95% CI (Confidence Interval) PPV (Positive Predictive Value) for myocardial infarction in females is 38 pg/mL, in males 51 pg/mL. The results should be used in conjunction with clinical conditions of myocardial infarction.(Access High Sensitivity Troponin I Instructions For Use, [employer]June 2018) Performed By: #### 1 [id number] ####[facility] [address] [place] [address] UA With Cult Reflexon 2022 Bacteria LM Ql (Urine sed) 1+ /HPF Abnormal Trace [facility] Comment on above: Performed By: #### 2 256656, 12459120 ####[facility] [address] [place] [address] Bilirubin Ql (U) Negative Normal Negative [facility] Comment on above: Performed By: #### 2 123377, [id number] ####[facility] [address] [place] [address] Calcium oxalate crystals LM Ql (Urine sed) Present Normal [facility] Comment on above: Performed By: #### 2 788643, [id number] ####[address] [address] Clarity (U) SL CLOUDY Invalid Interpretation Code [facility] Comment on above: Performed By: #### 2 389479, 25305275 ####[address] [address] Color (U) YELLOW Normal Yellow [facility] Comment on above: Performed By: #### 2 245163, 95446974 ####[address] [address] Crystals LM Ql (Urine sed) Present Normal [facility] Comment on above: Performed By: #### 2 933711, 98783678 ####[address] [address] Epithelial cells.squamous LM.HPF (Urine sed) [#/Area] 0-2 Normal 0-2 [facility] Comment on above: Performed By: #### 2 533608, 74556017 ####[facility] [address] [place] [address] Glucose Test strip (U) [Mass/Vol] Negative Normal Negative [facility] Comment on above: Performed By: #### 2 247495, 51308136 ####[address] [address] Hemoglobin Ql (U) TRACE Abnormal Negative [facility] Comment on above: Performed By: #### 2 324994, 01311656 ####[address] [address] Ketones (U) [Mass/Vol] Negative Normal Negative [facility] Comment on above: Performed By: #### 2 772422, 29474300 ####[facility] [address] [place] [address] [place]wood.plasma/F[place]. RBC (Bld) [Mass ratio] 0-3 Normal 0-3 [facility] Comment on above: Performed By: #### 2 546785, 65566135 ####[facility] [address] [place] [address] Mucus Ql (Urine sed) 1+ Normal [facility] Comment on above: Performed By: #### 2 595321, 41521813 ####[address] [address] Nitrite Ql (U) Negative Normal Negative [facility] Comment on above: Performed By: #### 2 373020, 77146814 ####[place] [address]3757 pH (U) 8.5 [pH] Invalid Interpretation Code 5.0-9.0 [facility] Comment on above: Performed By: #### 2 314458, 04445853 ####[address] [address] Phosphate crystals amorphous LM Ql (Urine sed) Present Normal [facility] Comment on above: Performed By: #### 2 193069, 66987366 ####[address] [address] Protein (U) [Mass/Vol] 3+ Abnormal Negative [facility] Comment on above: Performed By: #### 2 489229, 84032112 ####[address] [address] Specific gravity (U) [Rel density] <=1.005 Invalid Interpretation Code 1.005-1.030 [facility] Comment on above: Performed By: #### 2 992795, 28840579 ####[address] [address] Type of Urine collection method Clean Catch Normal [facility] Comment on above: Performed By: #### 2 635686, 53861371 ####[facility] [address] [place] [address] Urobilinogen Qn (U) 0.2 {Génesis'U}/dL Normal 0.0-1.0 [facility] Comment on above: Performed By: #### 2 147278, 07670112 ####[facility] [address] [place] [address] WBC Auto Ql (U) 2+ Abnormal Negative [facility] Comment on above: Performed By: #### 2 019884, 62294102 ####[place] [address] WBC LM.HPF (Urine sed) [#/Area] 0-5 Normal 0-5 [facility] Comment on above: Performed By: #### 2 445766, 96736498 ####[facility] [address] [place] [address] URINALYSISOrdered By: Guzman rey on 03-01-2023 Bacteria LM Ql (Urine sed) 1+ /HPF Invalid Interpretation Code Trace/HPF FT UA Auto SS Bilirubin Ql (U) Negative (03/01/23 4:34 PM) Normal Negative [facility] [place] UA Auto SS Calcium oxalate crystals LM Ql (Urine sed) Present (03/01/23 4:34 PM) Normal [facility] [place] UA Auto SS Clarity (U) SL CLOUDY Invalid Interpretation Code FT UA Auto SS Color (U) Yellow (03/01/23 4:34 PM) Normal Yellow [facility] UA Auto SS Crystals LM Ql (Urine sed) Present (03/01/23 4:34 PM) Normal FT UA Auto SS Epithelial cells.squamous LM.HPF (Urine sed) [#/Area] 0-2 /HPF Normal 0-2/HPF FT UA Auto SS Glucose Test strip (U) [Mass/Vol] Negative (03/01/23 4:34 PM) Normal Negative FT UA Auto SS Hemoglobin Ql (U) Trace *ABN* (03/01/23 4:34 PM) Invalid Interpretation Code Negative FT UA Auto SS Ketones (U) [Mass/Vol] Negative (03/01/23 4:34 PM) Normal Negative [facility] UA Auto SS Fern[place].plasma/[place]. RBC (Bld) [Mass ratio] 0-3 /HPF Normal 0-3/HPF [facility] UA Auto SS Mucus Ql (Urine sed) 1+ (03/01/23 4:34 PM) Normal [facility] UA Auto SS Nitrite Ql (U) Negative (03/01/23 4:34 PM) Normal Negative [facility] UA Auto SS pH (U) 8.5 *NA* (03/01/23 4:34 PM) Invalid Interpretation Code 5.0 - 9.0 [facility] UA Auto SS Phosphate crystals amorphous LM Ql (Urine sed) Present (03/01/23 4:34 PM) Normal [facility] UA Auto SS Protein (U) [Mass/Vol] 3+ *ABN* (03/01/23 4:34 PM) Invalid Interpretation Code Negative [facility] UA Auto SS Specific gravity (U) [Rel density] <=1.005 *NA* (03/01/23 4:34 PM) Invalid Interpretation Code 1.005 - 1.030 [facility] UA Auto SS UA Spec Desc Clean Catch (03/01/23 4:34 PM) Normal [facility] UA Auto SS Urobilinogen Qn (U) 0.6250496 {Génesis'U}/dL Normal 0.0 - 1.0 EU/dL [facility] UA Auto SS WBC Auto Ql (U) 2+ *ABN* (03/01/23 4:34 PM) Invalid Interpretation Code Negative [facility] UA Auto SS WBC LM.HPF (Urine sed) [#/Area] 0-5 /HPF Normal 0-5/HPF [facility] UA Auto SS Vit B12on 03-01-2023 Cobalamin (Vitamin B12) [Mass/Vol] 531 pg/mL Normal 50-1500 [facility] Comment on above: Performed By: #### 2 927158, 8221700, 0716577, 3024603, 9617825, 4154952, 8370978, 6611412, 50282681, 02488207, 6482769, 52460757 ####[facility] [address] [place] [id number] XR Chest Single Viewon 03-01 XR Chest Single View Normal Fish er [facility] eGFRon 03-01-2023 GFR/1.73 sq M.predicted among non-blacks MDRD (S/P/Bld) [Vol rate/Area] 45 mL/min/1.73 m2 Low >=59 [facility] Comment on above: Order Comment: Order added by Discern Expert. 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 Kidney failure is indicated at less than 15 mL/min/1.73m2. Performed By: #### 2 709575, 5331764, 2760641, 1967339, 4359567, 8031788, 8128081, 4582600, 41911127, 22980139, 9265521, 38267165 ####[facility] [address] [place] [address] levoFLOXacin STEPHIE [Susc]Order ed By: Rashida Yao on 03-01-[address] [facility] Absolute immature granulocyt e countOrdered By: RENAE LOYD on 09-22-2022 Immature granulocytes (Bld) [#/Vol] 0.06 10:3/uL 0.01-0.2 [facility] Absolute lymphocyte countOrd ered By: RENAE LOYD on 09-22-2022 Lymphocytes Auto (Unsp spec) [#/Vol] 1.67 10:3/uL 1.5-4.0 [facility] Acetaminophen Levelon 2021 Acetaminophen Level < 5.0 Low 10.0-30.0 [facility] Comment on above: Result Comment: Less than measurable range. THERAPEUTIC: 10-30 UG/ML POSSIBLE TOXICITY: >100 UG/ML PROBABLE TOXICITY: >200 UG/ML Performed By: #### A ALBARO, JIMBO #### [facility] [address] [place] [address] , Adalberto Epperson M.D. FCAP, FASCP Acetaminophen [Mass/volume] in Serum or PlasmaOrdered By: RENAE LOYD on 09-22-2022 Acetaminophen [Mass/Vol] ug/mL Low 10.0-30.0 [facility] Comment on above: Less than measurable range.THERAPEUTIC: 10-30 UG/MLPOSSIBLE TOXICITY: >100 UG/MLPROBABLE TOXICITY: >200 UG/ML Alanine aminotransferase [En zymatic activity/volume] in Serum or PlasmaOrdered By: RENAE LOYD on 09-22-2022 ALT [Catalytic activity/Vol] 23 U/L 10-50 [facility] Bacteria [Presence] in Urine by AutomatedOrdered By: RENAE LOYD on 09-22-2022 Bacteria Auto Ql (U) Negative Negative [facility] Benzodiazepines Screen Ql (U )Ordered By: RENAE LOYD on 09-22-2022 Benzodiazepines Ql (U) Negative NEG [facility] Bilirubin Auto test strip (U ) [Mass/Vol]Ordered By: RENAE LOYD on 09-22-2022 Bilirubin (U) [Mass/Vol] Negative NEGATIVE [facility] Blood basophils count (numbe r/volume)Ordered By: RENAE LOYD on 09-22-2022 Basophils (Bld) [#/Vol] 0.01 10:3/uL 0.0-0.2 [facility] Blood eosinophils count (num guera/volume)Ordered By: RENAE LOYD on 09-22-2022 Eosinophils (Bld) [#/Vol] 0.21 10:3/uL 0.0-0.5 [facility] Blood erythrocytes count (nu mber/volume)Ordered By: RENAE LOYD on 09-22-2022 RBC (Bld) [#/Vol] 2.91 10:6/uL Low 4.40-5.90 [facility] Blood hemoglobin measurement (mass/volume)Ordered By: RENAE LOYD on 09-22-2022 Hemoglobin (Bld) [Mass/Vol] 8.9 g/dL Low 13.3-17.7 [facility] Blood leukocytes count (numb er/volume)Ordered By: RENAE LOYD on 09-22-2022 WBC (Bld) [#/Vol] 9.1 10:3/uL 3.9-10.[address] [facility] Blood nucleated erythrocytes count (number/volume)Ordered By: RENAE LOYD on 09-22-2022 Nucleated RBC (Bld) [#/Vol] 0.00 10:3/uL <0 [facility] Blood platelet countOrdered By: RENAE BHATTIJose on 09-22-2022 Platelets (Bld) [#/Vol] 246 10:3/uL 130-440 [facility] CBC With Differentialon 09-04 CBC Manual Diff NO Normal [facility] Comment on above: Performed By: #### H H #### [facility] [address] [place], [place] [id number] , Adalberto Epperson M.D. FCAP, FASCP Basophils, Absolute 0.01 10:3/uL Normal 0.0-0.2 [facility] Comment on above: Performed By: #### H H #### [address] [id number] , Adalberto Epperson M.D. FCAP, FASCP Eosinophils, Absolute 0.21 10:3/uL Normal 0.0-0.5 [facility] Comment on above: Performed By: #### H H #### [address] [id number] , Adalberto Epperson M.D. FCAP, FASCP Hematocrit (Bld) [Volume fraction] 26.7 % Low 40.0-52.0 [facility] Comment on above: Performed By: #### H H #### [address] [id number] , Adalberto Epperson M.D. FCAP, FASCP Hemoglobin (Bld) [Mass/Vol] 8.9 g/dL Low 13.3-17.7 [facility] Comment on above: Performed By: #### H H #### [address] [address] , Adalberto Epperson M.D. FCAP, FASCP Immature Granulocyte, Absolute 0.06 10:3/uL Normal 0.01-0.2 [facility] Comment on above: Performed By: #### H H #### [address] [address] , Adalberto Epperson M.D. FCAP, FASCP Immature granulocytes/100 WBC (Bld) 0.7 % Normal 0-0.9 [facility] Comment on above: Performed By: #### H H #### [address] [address] , Adalberto Epperson M.D. FCAP, FASCP [id number] 0.1 % Normal 0-1.0 [facility] Comment on above: Performed By: #### H H #### [address] [address] , Adalberto Epperson M.D. FCAP, FASCP [id number] 2.3 % Normal 0.0-3.0 [facility] Comment on above: Performed By: #### H H #### [address] [address]88[address] , Adalberto Epperson M.D. FCAP, FASCP [id number] 18.4 % Low 20.0-40.0 [facility] Comment on above: Performed By: #### H H #### [address] [id number] , Adalberto Epperson M.D. FCAP, FASCP [id number] 12.3 % High 4.0-10.0 [facility] Comment on above: Performed By: #### H H #### [address] [id number] , Adalberto Epperson M.D. FCAP, FASCP [id number] 6.00 10:3/uL Normal 2.0-7.0 [facility] Comment on above: Performed By: #### H H #### [address] [address]1768[address] , Adalberto Epperson M.D. FCAP, FASCP [id number] 1.11 10:3/uL High 0.2-0.8 [facility] Comment on above: Performed By: #### H H #### [address] [id number] , Adalberto Epperson M.D. FCAP, FASCP [id number] 0 /100WBC Normal -0 [facility] Comment on above: Performed By: #### H H #### [address] [id number] , Adalberto Epperson M.D. FCAP, FASCP Lymphocytes, Absolute 1.67 10:3/uL Normal 1.5-4.0 [facility] Comment on above: Performed By: #### H H #### [address] [id number] , Adalberto Epperson M.D. FCAP, FASCP MCH (RBC) [Entitic mass] 30.6 pg Normal 27.0-40.0 [facility] Comment on above: Performed By: #### H H #### [address] 05418[address] , Adalberto Epperson M.D. FCAP, FASCP Mean Corpusc Hgb Concentration 33.3 G/DL Normal 31.0-36.0 [facility] Comment on above: Performed By: #### H H #### [address] [id number] , Adalberto Epperson M.D. FCAP, FASCP Mean Corpuscular Volume 91.8 CU uM Normal 80.0-100.0 [facility] Comment on above: Performed By: #### H H #### [address] 9552850 , Adalberto Epperson M.D. FCAP, FASCP Neutrophils/100 WBC (Bld) 66.2 % High 54.0-62.0 [facility] Comment on above: Performed By: #### H H #### [address] 8254850 , Adalberto Epperson M.D. FCAP, FASCP Nucleated RBC's, Absolute 0.00 10:3/uL Normal -0 [facility] Comment on above: Performed By: #### H H #### [address] [id number] , Adalberto Epperson M.D. FCAP, FASCP Platelet Count 246 10:3/uL Normal 130-440 [facility] Comment on above: Performed By: #### H H #### [address] [id number] , Adalberto Epperson M.D. FCAP, FASCP Red Blood Cell Count 2.91 10:6/uL Low 4.40-5.90 [facility] Comment on above: Performed By: #### H H #### [address] [id number] , Adalberto Epperson M.D. FCAP, FASCP Red Cell Distribution 13.2 Normal 11.5-14.5 [facility] Comment on above: Performed By: #### H H #### [address] [id number] , Adalberto Epperson M.D. FCAP, FASCP White Blood Cell Count 9.1 10:3/uL Normal 3.9-10.6 [facility] Comment on above: Performed By: #### H H #### [facility] [address] [facility] [place] [address] , Adalberto Epperson M.D. FCAP, FASCP CT Head WOon 09-22-2022 CT Head WO [facility] SYST EM [facility] Name: MIKAYLA PAPPAS [address] [place] [address] Phys: [place] [address] : 1960 Age: 62 Acct: [id number] Loc: ER MRN/Unit No.: [id number] Status: REG ER Exam Date: 09/22/22 Accession Number: [id number] Exam: [id number] CT/CT Head WO CT Head WO EXAMINATION: CT HEAD WO 09/22/2022 COMPARISON STUDY: CT of the head without contrast 02/10/2008. HISTORY: Hallucinations. COMPARISON: None. TECHNIQUE: CT examination of the head without IV contrast. Coronal and sagittal reformations were performed. Dose reduction techniques were achieved by using automated exposure control and/or adjustment of mA and/or kV according to patient size and/or use of iterative reconstruction technique. FINDINGS: Intracranially, there is interval development of subcentimeter basal ganglia calcifications bilaterally, right more conspicuous than left, axial image #24. There is a posteriorly located prominent cystic abnormality, left larger than right which is unchanged. This measures 3.6 x 8.9 cm for example on image #21. There is interval development of calcifications in the distribution of the dentate nuclei, asymmetrically greater toward the left. There is no hemorrhage, midline shift or new abnormal extra-axial fluid collection suspected. Ventricular cisternal spaces are otherwise stable and within normal limits. There are a few subtle horizontally oriented and punctate calcified foci within the white matter tracts of the right frontal lobe. This is suggested on image #30 and more cranially on image 33. Mastoid air cells and middle ear cavities are clear. There is mild leftward nasal septal deviation. There is mucosal thickening associated with the ethmoid air cells. The frontal sinuses are aplastic. No acute calvarial fracture is noted. No orbital abnormality noted. There is thinning of the optic lenses now identified bilaterally. The upper parapharyngeal fat planes are grossly intact. There is infiltration of the subcutaneous fat involving the occipital scalp near the midline presumably from fibrosis. IMPRESSION: 1. Interval development of calcifications in the distribution of the basal ganglia regions bilaterally as well as the dentate nuclei of the cerebellar hemispheres since prior study from 2007. There are also subtle linear and punctate areas of calcification within the white matter tracts of the right frontal lobe. 2. 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 Differential consideration includes stable arachnoid cyst. 3. No hemorrhage, midline shift or dominant mass lesion otherwise identified. 4. Ethmoid sinusitis. CC: RENAE LOYD; GREYSON DOMINGUEZ Technologist: WALKER HUSAIN Dictated By: WISAM HENDRICKSON Signed Date/Time: 09/22/22, 5520 This report was electronically signed in another vendor system Normal [facility] Casts [#/area] in Urine sedi ment by Microscopy low power fieldOrdered By: RENAE LOYD on 09-22-2022 Casts LM.LPF (Urine sed) [#/Area] 0-5 /LPF 0-5 [facility] Cocaine Screen Ql (U)Ordered By: RENAE LOYD on 09-22-2022 Cocaine Ql (U) Negative NEG [facility] Complete blood count (CBC) w ith reflex manual white blood cell differentialOrdered By: RENAE LOYD on 09-22-2022 CBC W Reflex Manual Differential panel (Bld) No [facility] Comprehensive Metabolic Pane jerzy 09-22-2022 Albumin [Mass/Vol] 3.6 g/dL Low 4.0-4.9 [facility] Comment on above: Performed By: #### E , ADP #### [facility] [address] [place] [address] , Adalberto Epperson M.D. FCAP, FASCP ALP [Catalytic activity/Vol] 104 U/L Normal 40-129 [facility] Comment on above: Performed By: #### E , ADP #### [facility] [address] [place] [address] , Adalberto Epperson M.D. FCAP, FASCP ALT [Catalytic activity/Vol] 23 U/L Normal 10-50 [facility] Comment on above: Performed By: #### E , ADP #### [address] [address] , Adalberto Epperson M.D. FCAP, FASCP Anion gap [Moles/Vol] 10 mmol/L Normal 9-15 [facility] Comment on above: Performed By: #### E , ADP #### [address] [address] , Adalberto Epperson M.D. FCAP, FASCP AST [Catalytic activity/Vol] 41 U/L Normal 10-50 [facility] Comment on above: Result Comment: HEMO LYSIS PRESENT. INTERPRET RESULT WITH CAUTION. Performed By: #### E , ADP #### [address] [address] , Adalberto Epperson M.D. FCAP, FASCP Bilirubin [Mass/Vol] 0.2 mg/dL Normal 0.2-1.2 [facility] Comment on above: Performed By: #### E , ADP #### [address] [address] , Polina Pool, FASCP Calcium [Mass/Vol] 9.4 mg/dL Normal 8.8-10.2 [facility] Comment on above: Performed By: #### E , ADP #### [address] [address] , Adalberto Epperson M.D. FCAP, FASCP Chloride [Moles/Vol] 102 mmol/L Normal 98-107 [facility] Comment on above: Performed By: #### E , ADP #### [address] [address] , Adalberto Epperson M.D. FCAP, FASCP CO2 [Moles/Vol] 22 mmol/L Normal 22-29 [facility] Comment on above: Performed By: #### E , ADP #### [facility] [address] [place] [address] , Adalberto Epperson M.D. FCAP, FASCP Creatinine [Mass/Vol] 2.53 mg/dL High 0.67-1.17 [facility] Comment on above: Performed By: #### E , ADP #### [facility] [address] [place] [address] , Adalberto Epperson M.D. FCAP, FASCP GFR/1.73 sq M.predicted among non-blacks MDRD (S/P/Bld) [Vol rate/Area] 26 mL/min/{1.73_m2} Normal [facility] Comment on above: Result Comment: THE GFR IS ESTIMATED USING THE MDRD STUDY EQUATION. *NOTE* IF THE RACE OF THE PATIENT WAS UNKNOWN AT THE TIME OF REGISTRATION, AND THE PATIENT IS , MULTIPLY THE EGFR RESULT PROVIDED BY 1.21. EGFR <60.0 COULD BE ABNORMAL. Performed By: #### E , ADP #### [address] [address] , Polina PoolAP, FASCP Glucose [Mass/Vol] 183 mg/dL High 70-100 [facility] Comment on above: Result Comment: INTR EPRETATION FOR FASTING BLOOD GLUCOSE: 70-100 mg/dl NORMAL GLUCOSE TOLERANCE 100-125 mg/dl IMPAIRED FASTING GLUCOSE (PRE-DIABETES) >125 mg/dl DIABETES - ON MORE THAN ONE TESTING Performed By: #### E , ADP #### [facility] [address] [place] [address] , Adalberto Epperson M.D. FCAP, FASCP Potassium [Moles/Vol] 5.3 mmol/L High 3.6-5.0 [facility] Comment on above: Result Comment: HEMO LYSIS PRESENT. INTERPRET RESULT WITH CAUTION. Performed By: #### E , ADP #### [facility] [address], [place] [id number] , Adalberto Epperson M.D. FCAP, FASCP Protein [Mass/Vol] 7.7 g/dL Normal 6.4-8.3 [facility] Comment on above: Performed By: #### E , ADP #### [facility] [address], [place] [id number] , Adalberto Epperson M.D. FCAP, FASCP Sodium [Moles/Vol] 134 mmol/L Low 136-145 [facility] Comment on above: Performed By: #### E , ADP #### [address] [address] , Polina PoolAP, FASCP Urea nitrogen [Mass/Vol] 56.8 mg/dL High 8.0-23.0 [facility] Comment on above: Performed By: #### E , ADP #### [address] [address] , Polina PoolAP, FASCP Determination of erythrocyte mean corpuscular volume (MCV)Ordered By: RENAE LOYD on 09-22-2022 MCV (RBC) [Entitic vol] 91.8 CU uM 80.0-100.0 M [facility] Drug Screen Urine 11 panelon 09-22-2022 Alcohol Screen Urine Negative Normal NEG [facility] Comment on above: Performed By: #### H H #### [address] [address] , Polina PoolAP, FASCP Amphetamine Screen Urine Negative Normal NEG [facility] Comment on above: Performed By: #### H H #### [address] [address] , Adalberto Epperson M.D. FCAP, FASCP Barbiturate Screen Urine Negative Normal NEG [facility] Comment on above: Performed By: #### H H #### [facility] [address] [place] [address] , Polina PoolAP, FASCP Benzodiazapine Screen Urine Negative Normal NEG [facility] Comment on above: Performed By: #### H H #### [address] [address] , Adalberto Epperson M.D. FCAP, FASCP Cocaine Screen Urine Negative Normal NEG [facility] Comment on above: Performed By: #### H H #### [address] [address] , Polina PoolAP, FASCP Marijuana Screen Urine Negative Normal NEG [facility] Comment on above: Performed By: #### H H #### [address] [address] , Polina PoolAP, FASCP Methadone Screen Urine Negative Normal NEG [facility] Comment on above: Performed By: #### H H #### [address] [address] , Adalberto Epperson M.D. FCAP, FASCP Opiate Screen Urine PRESUMPTIVE POSTIVE Abnormal NEG [facility] Comment on above: Performed By: #### H H #### [address] [address] , Polina PoolAP, FASCP Oxycodone Urine Negative Normal NEG [facility] Comment on above: Performed By: #### H H #### [address] [address] , Adalberto Epperson M.D. FCAP, FASCP Phencyclidine Screen Urine Negative Normal NEG [facility] Comment on above: Performed By: #### H H #### [facility] [address] [place] [address] , Adalberto Epperson M.D. FCAP, FASCP Epithelial cells [#/area] in Urine sediment by Automated countOrdered By: RENAE LOYD on 09-22-2022 Epithelial cells Auto (Urine sed) [#/Area] 0-2 /HPF 0-2 [facility] Erythrocyte distribution wid th standard deviationOrdered By: RENAE LOYD on 09-22-2022 Erythrocyte distribution width (RBC) [Entitic vol] 13.2 fL 11.5-14.5 [facility] Erythrocyte mean corpuscular hemoglobin concentration measurement (mass/volume)Ordered By: RENAE LOYD on 09-22-2022 MCHC (RBC) [Mass/Vol] 33.3 g/dL 31-36 [facility] Erythrocytes [#/area] in Uri ne sediment by Automated countOrdered By: RENAE LOYD on 09-22-2022 RBC Auto (Urine sed) [#/Area] 5-10 /HPF High 0-2 [facility] Ethanol Bloodon 09-22-2022 Ethanol Blood Normal 0-100 [facility] Comment on above: Result Comment: Resu lt is less than minimum detection limit Performed By: #### E , ADP #### [facility] [address] [place] [address] , Adalberto Epperson M.D. FCAP, FASCP Ethanol [Mass/volume] in Ser um or PlasmaOrdered By: RENAE LOYD on 09-22-2022 Ethanol [Mass/Vol] See comment 0-100 [facility] Comment on above: Result is less than minimum detection limit Ethanol [Presence] in Urine by Screen methodOrdered By: RENAE LOYD on 09-22-2022 Ethanol Screen Ql (U) Negative NEG [facility] Hematocrit Auto (Bld) [Volum e fraction]Ordered By: RENAE LOYD on 09-22-2022 Hematocrit (Bld) [Volume fraction] 26.7 % Low 40.0-52.0 [facility] Immature granulocytes/100 WB C Auto (Bld)Ordered By: RENAE LOYD on 09-22-2022 Immature granulocytes/100 WBC (Bld) 0.7 % 0-0.9 [facility] Ketones Auto test strip (U) [Mass/Vol]Ordered By: RENAE LOYD on 09-22-2022 Ketones (U) [Mass/Vol] Negative NEGATIVE [facility] - Chemistry and C hemistry - challengeOrdered By: RENAE LOYD on 09-22-2022 GFR/1.73 sq M.predicted among non-blacks MDRD (S/P/Bld) [Vol rate/Area] 26 mL/min/{1.73_m2} [facility] Comment on above: EGFR <60.0 COULD BE ABNORMAL.THE GFR IS ESTIMATED USING THE MDRD STUDY EQUATION.*NOTE* IF THE RACE OF THE PATIENT WAS UNKNOWN AT THE TIME OFREGISTRATION, AND THE PATIENT IS , MULTIPLYTHE EGFR RESULT PROVIDED BY 1.21. Laboratory - Hematology and Cell countsOrdered By: RENAE LOYD on 09-22-2022 MCH (RBC) [Entitic mass] 30.6 pg 27-40 [facility] Leukocytes [#/area] in Urine sediment by Automated countOrdered By: RENAE LOYD on 09-22-2022 WBC Auto (Urine sed) [#/Area] 0-2 /HPF 0-5 [facility] Lymphocyte percentOrdered By : RENAE LOYD on 09-22-2022 Basophils/100 WBC (Bld) 0.1 % 0-1.0 [facility] Eosinophils/100 WBC (Bld) 2.3 % 0.0-3.0 [facility] Lymphocyte percent 6.00 10:3/uL 2.0-7.0 [facility] Lymphocyte percent 1.11 10:3/uL High 0.2-0.8 [facility] Lymphocyte percent 0 /100WBC <[address] [facility] Lymphocytes/100 WBC (Bld) 18.4 % Low 20.0-40.0 [facility] Monocytes/100 WBC (Bld) 12.3 % High 4.0-10.0 [facility] Phencyclidine Screen Ql (U)O rdered By: RENAE LOYD on 09-22-2022 Phencyclidine Ql (U) Negative NEG [facility] Protein Auto test strip (U) [Mass/Vol]Ordered By: RENAE LOYD on 09-22-2022 Protein (U) [Mass/Vol] mg/dL High NEGATIVE [facility] Salicylate Levelon Salicylate Level < 0.5 Low 3.0-10.0 [facility] Comment on above: Result Comment: Less than measurable range. Performed By: #### A CETA, JIMBO #### [facility] [address] [place] [address] , Adalberto Epperson M.D. FCAP, FASCP Screening urine opiates dete ctionOrdered By: RENAE LOYD on 09-22-2022 Opiates Screen Ql (U) Presumptive postiv e NG/DL High NEG [facility] Segmented neutrophils/100 WB C Auto (Bld)Ordered By: RENAE LOYD on 09-22-2022 Segmented neutrophils/100 WBC (Bld) 66.2 % High 54.0-62.0 [facility] Serum or plasma albumin day urement (mass/volume)Ordered By: RENAE LOYD on 09-22-2022 Albumin [Mass/Vol] 3.6 g/dL Low 4.0-4.[address] [facility] Serum or plasma alkaline jake sphatase measurement (enzymatic activity/volume)Ordered By: RENAE LOYD on 09-22-2022 ALP [Catalytic activity/Vol] 104 U/L 40-129 [facility] Serum or plasma anion gapOrd ered By: RENAE LOYD on 09-22-2022 Anion gap [Moles/Vol] 10 mmol/L 9-15 [facility] Serum or plasma aspartate am inotransferase measurement (enzymatic activity/volume)Ordered By: RENAE LOYD on 09-22-2022 AST [Catalytic activity/Vol] 41 U/L 10-50 [facility] Comment on above: HEMOLYSIS PRESENT. I NTERPRET RESULT WITH CAUTION. Serum or plasma calcium day urement (mass/volume)Ordered By: RENAE LOYD on 09-22-2022 Calcium [Mass/Vol] 9.4 mg/dL 8.8-10.[address] [facility] Serum or plasma carbon dioxi de, total measurement (moles/volume)Ordered By: RENAE LOYD on 09-22-2022 CO2 [Moles/Vol] 22 mmol/L 22-29 [facility] Serum or plasma chloride amalia surement (moles/volume)Ordered By: RENAE LOYD on 09-22-2022 Chloride [Moles/Vol] 102 mmol/L 98-107 [facility] Serum or plasma creatinine m easurement (mass/volume)Ordered By: RENAE LOYD on 09-22-2022 Creatinine [Mass/Vol] 2.53 mg/dL High 0.67-1.17 [facility] Serum or plasma glucose day urement (mass/volume)Ordered By: RENAE LOYD on 09-22-2022 Glucose [Mass/Vol] 183 mg/dL High 70-[address] [facility] Comment on above: INTREPRETATION FOR F ASTING BLOOD GLUCOSE: 70-100 mg/dl NORMAL GLUCOSE [id number] mg/dl IMPAIRED FASTING GLUCOSE (PRE-DIABETES)>125 mg/dl DIABETES - ON MORE THAN ONE TESTING Serum or plasma potassium me asurement (moles/volume)Ordered By: RENAE LOYD on 09-22-2022 Potassium [Moles/Vol] 5.3 mmol/L High 3.6-5.0 [facility] Comment on above: HEMOLYSIS PRESENT. I NTERPRET RESULT WITH CAUTION. Serum or plasma protein day urement (mass/volume)Ordered By: RENAE LOYD on 09-22-2022 Protein [Mass/Vol] 7.7 g/dL 6.4-8.[address] [facility] Serum or plasma salicylates measurement (mass/volume)Ordered By: RENAE LOYD on 09-22-2022 Salicylates [Mass/Vol] mg/dL Low 3.0-10.0 [facility] Comment on above: Less than measurable range. Serum or plasma sodium measu rement (moles/volume)Ordered By: RENAE LOYD on 09-22-2022 Sodium [Moles/Vol] 134 mmol/L Low 136-[address] [facility] Serum or plasma urea nitroge n measurement (mass/volume)Ordered By: RENAE LOYD on 09-22-2022 Urea nitrogen [Mass/Vol] 56.8 mg/dL High 8.0-23.0 [facility] Serum total bilirubin measur ement (mass/volume)Ordered By: RENAE LOYD on 09-22-2022 Bilirubin [Mass/Vol] 0.2 mg/dL 0.2-1.2 [facility] Specific gravity Auto test s trip (U) [Rel density]Ordered By: RENAE LOYD on 09-22-2022 Specific gravity (U) [Rel density] 1.019 1.005-1.035 [facility] Urinalysis Completeon 2021 Bacteria LM.HPF (Urine sed) [#/Area] Negative Normal Negative [facility] Comment on above: Performed By: #### H H #### [facility] [address] [place] [address] , Adalberto Epperson M.D. FCAP, FASCP Epithelial cells LM Ql (Urine sed) 0-2 Normal 0-2 [facility] Comment on above: Performed By: #### H H #### [address] [address] , Polina PoolAP, FASCP Is a Culture Indicated? NO CULTURE ORDERED Normal [facility] Comment on above: Performed By: #### H H #### [facility] [address] [place] [address] , Adalberto Epperson M.D. FCAP, FASCP Urine Casts 0-5 Normal 0-5 [facility] Comment on above: Performed By: #### H H #### [facility] [address] [place] [address] , Adalberto Epperson M.D. FCAP, FASCP Urine RBC 5-10 Abnormal 0-2 [facility] Comment on above: Performed By: #### H H #### [address] [place] [address] , Adalberto Epperson M.D. FCAP, FASCP Urine WBC 0-2 Normal 0-5 [facility] Comment on above: Performed By: #### H H #### [address] [place] [address] , Polina PoolAP, FASCP Bilirubin Ql (U) Negative Normal NEGATIVE [facility] Comment on above: Performed By: #### H H #### [address] [place] [address] , Adalberto Epperson M.D. FCAP, FASCP Character Urine CLEAR Normal [facility] Comment on above: Performed By: #### H H #### [address] [place] [address] , Polina PoolAP, FASCP Color (U) YELLOW Normal [facility] Comment on above: Performed By: #### H H #### [address] [place] [address] , Adalberto Epperson M.D. FCAP, FASCP Glucose Ql (U) 250 MG/DL Abnormal NEGATIVE [facility] Comment on above: Performed By: #### H H #### [address] [place] [address] , Adalberto Epperson M.D. FCAP, FASCP Hemoglobin Ql (U) MODERATE Abnormal NEGATIVE [facility] Comment on above: Performed By: #### H H #### [address] [place] [address] , Adalberto Epperson M.D. FCAP, FASCP Ketones Ql (U) Negative Normal NEGATIVE [facility] Comment on above: Performed By: #### H H #### [address] [id number] , Adalberto Epperson M.D. FCAP, FASCP Leukocyte esterase Test strip Ql (U) Negative Normal NEGATIVE [facility] Comment on above: Performed By: #### H H #### [address] [id number] , Adalberto Epperson M.D. FCAP, FASCP Nitrite Ql (U) Negative Normal NEGATIVE [facility] Comment on above: Performed By: #### H H #### [address] [id number] , Adalberto Epperson M.D. FCAP, FASCP pH (U) 5.5 [pH] Normal 5.0-8.5 [facility] Comment on above: Performed By: #### H H #### [address] [id number] , Adalberto Epperson M.D. FCAP, FASCP Protein Ql (U) >=300 Abnormal NEGATIVE [facility] Comment on above: Performed By: #### H H #### [address] [id number] , Adalberto Epperson M.D. FCAP, FASCP Specific gravity (U) [Rel density] 1.019 Normal 1.005-1.035 [facility] Comment on above: Performed By: #### H H #### [address] [id number] , Adalberto Epperson M.D. FCAP, FASCP Urobilinogen Qn (U) 0.2 {Génesis'U}/dL Normal 0-1.0 [facility] Comment on above: Performed By: #### H H #### [facility] [address] [place] [address] , Adalberto Epperson M.D. FCAP, FASCP Urinalysis complete W Reflex Culture panel - UrineOrdered By: RENAE LOYD on 09-22-2022 Urinalysis complete W Reflex Culture panel (U) No culture ordered [facility] Urine amphetamines detection by screening methodOrdered By: RENAE LOYD on 09-22-2022 Amphetamines Screen Ql (U) Negative NEG [facility] Urine barbiturates detection by screening methodOrdered By: RENAE LOYD on 09-22-2022 Barbiturates Screen Ql (U) Negative NEG [facility] Urine cannabinoids detection by screening methodOrdered By: RENAE LOYD on 09-22-2022 Cannabinoids Screen Ql (U) Negative NEG [facility] Urine clarityOrdered By: JUSTIN LOYD on 09-22-2022 Clarity (U) Clear [facility] Urine colorOrdered By: KRYSTLE LOYD on 09-22-2022 Color (U) Yellow [facility] Urine drug screen comment in terpretationOrdered By: RENAE LOYD on 09-22-2022 Drug screen comment (U) [Interp] : [facility] Comment on above: FOR SCREENING PURPOS ES ONLY! Urine glucose measurement by automated test strip (mass/volume)Ordered By: RENAE LOYD on 09-22-2022 Glucose Auto test strip (U) [Mass/Vol] 250 MG/DL High NEGATIVE [facility] Urine hemoglobin measurement by automated test strip (mass/volume)Ordered By: RENAE LOYD on 09-22-2022 Hemoglobin Auto test strip (U) [Mass/Vol] Moderate High NEGATIVE [facility] Urine leukocyte esterase det ection by automated test stripOrdered By: RENAE LOYD on 09-22-2022 Leukocyte esterase Auto test strip Ql (U) Negative NEGATIVE [facility] Urine methadone detection by screening methodOrdered By: RENAE LOYD on 09-22-2022 Methadone Screen Ql (U) Negative NEG [facility] Urine nitrite detection by a utomated test stripOrdered By: RENAE LOYD on 09-22-2022 Nitrite Auto test strip Ql (U) Negative NEGATIVE [facility] Urine oxycodone detectionOrd ered By: RENAE LOYD on 09-22-2022 oxyCODONE Ql (U) Negative NEG [facility] Urobilinogen Auto test strip (U) [Mass/Vol]Ordered By: RENAE LOYD on 09-22-2022 Urobilinogen Qn (U) 0.2 {Génesis'U}/dL 0-1.0 [facility] pH Auto test strip (U)Ordere d By: RENAE LOYD on 09-22-2022 pH (U) 5.5 [pH] 5.0-8.5 [facility] BASIC METABOLIC PANELon 09-04 ANION GAP IN SER/PLAS 11.8 unit/s Normal 8.0-22.0 [facility] Comment on above: Performed By: #### L [id number] #### [facility] [address] [place] [address] [place] Calcium [Mass/Vol] 8.8 mg/dL Normal 8.7-10.4 [facility] Comment on above: Performed By: #### L [id number] #### [facility] [address] [place] [address] [place] Chloride [Moles/Vol] 105 mmol/L Normal 99-109 [facility] Comment on above: Performed By: #### L [id number] #### [facility] [address] [place] [address] [place] CO2 [Moles/Vol] 22 mmol/L Normal 20-31 [facility] Comment on above: Performed By: #### L [id number] #### [facility] [address] [place] [address] [place] Creatinine [Mass/Vol] 1.9 mg/dL High 0.7-1.3 [facility] Comment on above: Performed By: #### L [id number] #### [facility] [address] [place] [address] [place] GLOMERULAR FILTRATION RATE ML/MIN/1.73 SQ M.PREDICTED 39.6 mL/min/1.73m*2 Normal [facility] Comment on above: Result Comment: CALCULATION BASED ON THE CHRONIC KIDNEY DISEASE EPIDEMIOLOGY COLLABORATION (CKD-EPI) EQUATION REFIT WITHOUT ADJUSTMENT FOR RACE. GFR LESS THAN 60 mL/min/1.73m2: SUGGESTIVE OF CHRONIC KIDNEY DISEASE. GFR LESS THAN 15 mL/min/1.73m2: SUGGESTIVE OF END STAGE RENAL DISEASE. Performed By: #### L [id number] #### [place] [id number] [address] Glucose [Mass/Vol] 282 mg/dL High 74-106 [facility] Comment on above: Result Comment: NOTE IF THIS IS A FASTING SPECIMEN THE FOLLOWING RANGES APPLY: NORMAL 70 TO 99 mg/dL PREDIABETIC 100 TO 125 mg/dL DIABETIC >= 126 mg/dL Performed By: #### L [id number] #### [address] OSMOLALITY (MOSM/KG) OF SER/PLAS BY CALCULATION 292 mosm/kg Normal 275-305 [facility] Comment on above: Performed By: #### L [id number] #### [place] [address] [place] Potassium [Moles/Vol] 4.8 mmol/L Normal 3.6-5.1 [facility] Comment on above: Performed By: #### L [id number] #### [address] [address] Sodium [Moles/Vol] 134 mmol/L Normal 132-146 [facility] Comment on above: Performed By: #### L [id number] #### [place] [id number] [place] Urea nitrogen [Mass/Vol] 50 mg/dL High 9-23 [facility] Comment on above: Performed By: #### L [id number] #### [facility] [address] [place] [address] UREA NITROGEN/CREATININE (MASS RATIO) IN SER/PLAS 26.3 unit/s High 6.0-20.0 [facility] Comment on above: Performed By: #### L [id number] #### [facility] [address] [place] [address] Basic metabolic 1998 panelon 09-14-2022 Anion gap [Moles/Vol] 11.8 mmol/L [facility] Calcium [Mass/Vol] 8.8 mg/dL 8.7 - 10. 4 mg/dL [facility] Chloride [Moles/Vol] 105 mmol/L 99 - 10 9 mmol/L [facility] CO2 [Moles/Vol] 22 mmol/L 20 - 31 mmol/L [facility] Creatinine [Mass/Vol] 1.9 mg/dL High 0.7 - 1.3 mg/dL [facility] GFR/1.73 sq M.predicted MDRD (S/P/Bld) [Vol rate/Area] 39.6 mL/min/{1.73_m2} mL/min/1.73m *2 [facility] Comment on above: CALCULATION BASED ON THE CHRONIC KIDNEY DISEASE EPIDEMIOLOGY COLLABORATION (CKD-EPI) EQUATION REFIT WITHOUT ADJUSTMENT FOR RACE. GFR LESS THAN 60 mL/min/1.73m2: SUGGESTIVE OF CHRONIC KIDNEY DISEASE. GFR LESS THAN 15 mL/min/1.73m2: SUGGESTIVE OF END STAGE RENAL DISEASE. Glucose [Mass/Vol] 282 mg/dL High 74 - 106 mg/dL [facility] Comment on above: NOTE IF THIS IS A FASTING SPECIMEN THE FOLLOWING RANGES APPLY: NORMAL 70 TO 99 mg/dL PREDIABETIC 100 TO 125 mg/dL DIABETIC >= 126 mg/dL Interpretation and review of laboratory results Abnormal [facility] Osmolality Calc [Osmolality] 292 mosm/kg 275 - 305 mosm/kg [facility] Potassium [Moles/Vol] 4.8 mmol/L 3.6 - 5.1 mmol/L [facility] Sodium [Moles/Vol] 134 mmol/L 132 - 146 mmol/L [facility] Urea nitrogen [Mass/Vol] 50 mg/dL High 9 - 23 mg/dL [facility] Urea nitrogen/Creatinine [Mass ratio] 26.3 mg/mg High [facility] CBC W Auto Differential pane l (Bld)on 09-14-2022 Basophils (Bld) [#/Vol] 0.0 10*3/uL 0.0 - 0.1 10*3/uL [facility] Basophils/100 WBC (Bld) 0.3 % 0.0 - 1.0 % [facility] Eosinophils (Bld) [#/Vol] 0.3 10*3/uL 0.1 - 0.3 10*3/uL [facility] Eosinophils/100 WBC (Bld) 3.9 % 1.0 - 4.0 % [facility] Erythrocyte distribution width (RBC) [Ratio] 14.0 % 11.5 - 14.5 % [facility] Hematocrit (Bld) [Volume fraction] 25.4 % Low 41.0 - 53.0 % [facility] Hemoglobin (Bld) [Mass/Vol] 8.7 g/dL Low 13.5 - 17.5 g/dL [facility] Interpretation and review of laboratory results Abnormal [facility] Lymphocytes (Bld) [#/Vol] 1.7 10*3/uL 1.0 - 3.5 10*3/uL [facility] Lymphocytes/100 WBC (Bld) 23.3 % Low 24.0 - 44.0 % [facility] MCH (RBC) [Entitic mass] 30.5 pg 26.0 - 34.0 pg [facility] MCHC (RBC) [Mass/Vol] 34.2 g/dL 31.0 - 37.0 g/dL [facility] MCV (RBC) [Entitic vol] 89.1 fL 80.0 - 100.0 fL [facility] Monocytes (Bld) [#/Vol] 1.1 10*3/uL High 0.1 - 1.0 10*3/uL [facility] Monocytes/100 WBC (Bld) 14.9 % High 1.0 - 7.0 % [facility] Neutrophils (Bld) [#/Vol] 4.2 10*3/uL 1.6 - 7.5 10*3/uL [facility] Neutrophils/100 WBC (Bld) 57.6 % 36.0 - 71.0 % [facility] Platelet mean volume (Bld) [Entitic vol] 6.9 fL Low 7.4 - 10.4 fL [facility] Platelets (Bld) [#/Vol] 265 10*3/uL 140 - 440 10*3/uL [facility] RBC (Bld) [#/Vol] 2.85 10*6/uL Low 4.50 - 5.9 0 10*6/uL [facility] WBC (Bld) [#/Vol] 7.3 10*3/uL 4.0 - 11.0 10*3/uL [facility] CBC WITH AUTO DIFFERENTIALon 09-14-2022 Basophils (Bld) [#/Vol] 0.0 10*3/uL Normal 0.0-0.1 [facility] Comment on above: Performed By: #### L [id number] #### [facility] [address] [place] [address] [place] Basophils/100 WBC (Bld) 0.3 % Normal 0.0-1.0 L [facility] Comment on above: Performed By: #### L [id number] #### [facility] [address] [place] [address] [place] Eosinophils (Bld) [#/Vol] 0.3 10*3/uL Normal 0.1-0.3 [facility] Comment on above: Performed By: #### L [id number] #### [facility] [address] [place] [address] Eosinophils/100 WBC (Bld) 3.9 % Normal 1.0-4.0 [facility] Comment on above: Performed By: #### L [id number] #### [facility] [address] [place] [address] Erythrocyte distribution width (RBC) [Ratio] 14.0 % Normal 11.5-14.5 [facility] Comment on above: Performed By: #### L [id number] #### [facility] [address] [place] [address] ERYTHROCYTE MEAN CORPUSCULAR HEMOGLOBIN CONCENTRATION (G/DL) BY AUTOMATED 34.2 g/dL Normal 31.0-37.0 [facility] Comment on above: Performed By: #### L [id number] #### [facility] [address] [place] [address] Hematocrit (Bld) [Volume fraction] 25.4 % Low 41.0-53.0 [facility] Comment on above: Performed By: #### L [id number] #### [facility] [address] [place] [address] Hemoglobin (Bld) [Mass/Vol] 8.7 g/dL Low 13.5-17.5 [facility] Comment on above: Performed By: #### L [id number] #### [facility] [address] [place] [address] Lymphocytes (Bld) [#/Vol] 1.7 10*3/uL Normal 1.0-3.5 [facility] Comment on above: Performed By: #### L [id number] #### [facility] [address] [place] [address] Lymphocytes/100 WBC (Bld) 23.3 % Low 24.0-44.0 [facility] Comment on above: Performed By: #### L [id number] #### [facility] [facility] [address] [place] [address] MCH (RBC) [Entitic mass] 30.5 pg Normal 26.0-34.0 [facility] Comment on above: Performed By: #### L [id number] #### [facility] [address] [place] [address] MCV (RBC) [Entitic vol] 89.1 fL Normal 80.0-100.0 [facility] Comment on above: Performed By: #### L [id number] #### [facility] [address] [place] [address] Monocytes (Bld) [#/Vol] 1.1 10*3/uL High 0.1-1.0 [facility] Comment on above: Performed By: #### L [id number] #### [facility] [address] [place] [address] Monocytes/100 WBC (Bld) 14.9 % High 1.0-7.0 [facility] Comment on above: Performed By: #### L [id number] #### [facility] [address] [place] [address] Neutrophils (Bld) [#/Vol] 4.2 10*3/uL Normal 1.6-7.5 [facility] Comment on above: Performed By: #### L [id number] #### [facility] [address] [place] [address] Neutrophils/100 WBC (Bld) 57.6 % Normal 36.0-71.0 [facility] Comment on above: Performed By: #### L [id number] #### [facility] [address] [place] [address] Platelet mean volume (Bld) [Entitic vol] 6.9 fL Low 7.4-10.4 [facility] Comment on above: Performed By: #### L [id number] #### [facility] [address] [place] [address] [place] PLATELETS (10*3/UL) IN BLOOD AUTOMATED COUNT 265 10*3/uL Normal 140-440 [facility] Comment on above: Performed By: #### L [id number] #### [facility] [address] RBC (Bld) [#/Vol] 2.85 10*6/uL Low 4.50-5.90 [facility] Comment on above: Performed By: #### L [id number] #### [facility] [address] [place] [address] WBC (Bld) [#/Vol] 7.3 10*3/uL Normal 4.0-11.0 [facility] Comment on above: Performed By: #### L [id number] #### [facility] [address] [place] [address] Glucose baseline (BldC) [Mas s/Vol]on 09-14-2022 Glucose [Mass/Vol] 250 mg/dL High [facility] [address] [facility] Comment on above: ACCEPT RESULTS Interpretation and review of laboratory results Abnormal [facility] POCT GLUCOSE METERon 022 Glucose [Mass/Vol] 250 mg/dL High 74-118 [facility] Comment on above: Result Comment: ACCE PT RESULTS Performed By: #### L [id number] #### [facility] [address] [place] [address] BASIC METABOLIC PANELon 09-04 ANION GAP IN SER/PLAS 10.8 unit/s Normal 8.0-22.0 [facility] Comment on above: Performed By: #### L [id number] #### [facility] [address] [place] [address] Calcium [Mass/Vol] 9.0 mg/dL Normal 8.7-10.4 [facility] Comment on above: Performed By: #### L [id number] #### [facility] [address] [place] [address] [place] Chloride [Moles/Vol] 106 mmol/L Normal 99-109 [facility] Comment on above: Performed By: #### L [id number] #### [facility] [address] [place] [address] [place] CO2 [Moles/Vol] 24 mmol/L Normal 20-31 [facility] Comment on above: Performed By: #### L [id number] #### [facility] [address] [place] [address] [facility] Creatinine [Mass/Vol] 2.0 mg/dL High 0.7-1.3 [facility] Comment on above: Performed By: #### L [id number] #### [facility] [place] [address] [place] GLOMERULAR FILTRATION RATE ML/MIN/1.73 SQ M.PREDICTED 37.3 mL/min/1.73m*2 Normal [facility] Comment on above: Result Comment: CALCULATION BASED ON THE CHRONIC KIDNEY DISEASE EPIDEMIOLOGY COLLABORATION (CKD-EPI) EQUATION REFIT WITHOUT ADJUSTMENT FOR RACE. GFR LESS THAN 60 mL/min/1.73m2: SUGGESTIVE OF CHRONIC KIDNEY DISEASE. GFR LESS THAN 15 mL/min/1.73m2: SUGGESTIVE OF END STAGE RENAL DISEASE. Performed By: #### L [id number] #### [address] [address] [place] Glucose [Mass/Vol] 209 mg/dL High 74-106 [facility] Comment on above: Result Comment: NOTE IF THIS IS A FASTING SPECIMEN THE FOLLOWING RANGES APPLY: NORMAL 70 TO 99 mg/dL PREDIABETIC 100 TO 125 mg/dL DIABETIC >= 126 mg/dL Performed By: #### L [id number] #### [address] [address] [place] OSMOLALITY (MOSM/KG) OF SER/PLAS BY CALCULATION 290 mosm/kg Normal 275-305 [facility] Comment on above: Performed By: #### L [id number] #### [id number] [place] [address] [place] Potassium [Moles/Vol] 4.8 mmol/L Normal 3.6-5.1 [facility] Comment on above: Performed By: #### L [id number] #### [facility] [address] Sodium [Moles/Vol] 136 mmol/L Normal 132-146 [facility] Comment on above: Performed By: #### L [id number] #### [facility] [address] Urea nitrogen [Mass/Vol] 47 mg/dL High 9-23 [facility] Comment on above: Performed By: #### L [id number] #### [facility] [address] [place] [address] UREA NITROGEN/CREATININE (MASS RATIO) IN SER/PLAS 23.5 unit/s High 6.0-20.0 [facility] Comment on above: Performed By: #### L [id number] #### [facility] [address] [place] [address] Basic metabolic 1998 panelon 09-13-2022 Anion gap [Moles/Vol] 10.8 mmol/L [facility] Calcium [Mass/Vol] 9.0 mg/dL 8.7 - 10. 4 mg/dL [facility] Chloride [Moles/Vol] 106 mmol/L 99 - 10 9 mmol/L [facility] CO2 [Moles/Vol] 24 mmol/L 20 - 31 mmol/L [facility] Creatinine [Mass/Vol] 2.0 mg/dL High 0.7 - 1.3 mg/dL [facility] GFR/1.73 sq M.predicted MDRD (S/P/Bld) [Vol rate/Area] 37.3 mL/min/{1.73_m2} mL/min/1.73m *2 [facility] Comment on above: CALCULATION BASED ON THE CHRONIC KIDNEY DISEASE EPIDEMIOLOGY COLLABORATION (CKD-EPI) EQUATION REFIT WITHOUT ADJUSTMENT FOR RACE. GFR LESS THAN 60 mL/min/1.73m2: SUGGESTIVE OF CHRONIC KIDNEY DISEASE. GFR LESS THAN 15 mL/min/1.73m2: SUGGESTIVE OF END STAGE RENAL DISEASE. Glucose [Mass/Vol] 209 mg/dL High 74 - 106 mg/dL [facility] Comment on above: NOTE IF THIS IS A FASTING SPECIMEN THE FOLLOWING RANGES APPLY: NORMAL 70 TO 99 mg/dL PREDIABETIC 100 TO 125 mg/dL DIABETIC >= 126 mg/dL Interpretation and review of laboratory results Abnormal [facility] Osmolality Calc [Osmolality] 290 mosm/kg 275 - 305 mosm/kg [facility] Potassium [Moles/Vol] 4.8 mmol/L 3.6 - 5.1 mmol/L [facility] Sodium [Moles/Vol] 136 mmol/L 132 - 146 mmol/L [facility] Urea nitrogen [Mass/Vol] 47 mg/dL High 9 - 23 mg/dL [facility] Urea nitrogen/Creatinine [Mass ratio] 23.5 mg/mg High [facility] Glucose baseline (BldC) [Mas s/Vol]on 09-13-2022 Glucose [Mass/Vol] 334 mg/dL High 74 - 118 [facility] Comment on above: ACCEPT RESULTS Interpretation and review of laboratory results Abnormal [facility] Glucose [Mass/Vol] 255 mg/dL High 74 - 118 [facility] Comment on above: ACCEPT RESULTS Interpretation and review of laboratory results Abnormal [facility] Glucose [Mass/Vol] 281 mg/dL High 74 - 118 [facility] Comment on above: ACCEPT RESULTS Interpretation and review of laboratory results Abnormal [facility] Glucose [Mass/Vol] 195 mg/dL High 74 - 118 [facility] Comment on above: ACCEPT RESULTS Interpretation and review of laboratory results Abnormal [facility] Glucose [Mass/Vol] 233 mg/dL High 74 - 118 [facility] Comment on above: ACCEPT RESULTS Interpretation and review of laboratory results Abnormal [facility] COVID PANEL (BIOFIRE)on 09-13-2022 ADENOVIRUS Negative Normal Negative or Not Detected [facility] Comment on above: Order Comment: A neg ative FilmArray panel does not exclude the possibility of viral or bacterial infection. Negative results should not be used as the sole basis for diagnosis, treatment, or other mangement decisions. Performed By: #### L [id number] #### [address] BORDETELLA PARAPERTUSSIS Negative Normal Negative or Not Detected [facility] Comment on above: Order Comment: A neg ative FilmArray panel does not exclude the possibility of viral or bacterial infection. Negative results should not be used as the sole basis for diagnosis, treatment, or other mangement decisions. Performed By: #### L [id number] #### [address] BORDETELLA PERTUSSIS Negative Normal Negative [facility] Comment on above: Order Comment: A neg ative FilmArray panel does not exclude the possibility of viral or bacterial infection. Negative results should not be used as the sole basis for diagnosis, treatment, or other mangement decisions. Performed By: #### L [id number] #### [address] CHLAMYDIA PNEUMONIAE Negative Normal Negative [facility] Comment on above: Order Comment: A neg ative FilmArray panel does not exclude the possibility of viral or bacterial infection. Negative results should not be used as the sole basis for diagnosis, treatment, or other mangement decisions. Performed By: #### L [id number] #### [facility] [address] [place] [address] CORONAVIRUS 229E Negative Normal Negative [facility] Comment on above: Order Comment: A neg ative FilmArray panel does not exclude the possibility of viral or bacterial infection. Negative results should not be used as the sole basis for diagnosis, treatment, or other mangement decisions. Performed By: #### L [id number] #### [facility] [address] [place] [address] CORONAVIRUS HKU1 Negative Normal Negative [facility] Comment on above: Order Comment: A neg ative FilmArray panel does not exclude the possibility of viral or bacterial infection. Negative results should not be used as the sole basis for diagnosis, treatment, or other mangement decisions. Performed By: #### L [id number] #### [facility] [address] [place] [address] CORONAVIRUS NL63 Not detected Normal Not Detected [facility] Comment on above: Order Comment: A neg ative FilmArray panel does not exclude the possibility of viral or bacterial infection. Negative results should not be used as the sole basis for diagnosis, treatment, or other mangement decisions. Performed By: #### L [id number] #### [facility] [address] [place] [address] CORONAVIRUS OC43 Negative Normal Negative [facility] Comment on above: Order Comment: A neg ative FilmArray panel does not exclude the possibility of viral or bacterial infection. Negative results should not be used as the sole basis for diagnosis, treatment, or other mangement decisions. Performed By: #### L [id number] #### [facility] [address] [place] [address] HUMAN METAPNEUMOVIRUS Negative Normal Negati ve or Not Detected [facility] Comment on above: Order Comment: A neg ative FilmArray panel does not exclude the possibility of viral or bacterial infection. Negative results should not be used as the sole basis for diagnosis, treatment, or other mangement decisions. Performed By: #### L [id number] #### [facility] [address] [place] [address] INFLUENZA A/H1 Negative Normal Negative or Not Detected [facility] Comment on above: Order Comment: A neg ative FilmArray panel does not exclude the possibility of viral or bacterial infection. Negative results should not be used as the sole basis for diagnosis, treatment, or other mangement decisions. Performed By: #### L [id number] #### [facility] [address] [place] [address] INFLUENZA A/H1-2009 Negative Normal Negative or Not Detected [facility] Comment on above: Order Comment: A neg ative FilmArray panel does not exclude the possibility of viral or bacterial infection. Negative results should not be used as the sole basis for diagnosis, treatment, or other mangement decisions. Performed By: #### L [id number] #### [facility] [address] [place] [address] INFLUENZA A/H3 Negative Normal Negative or Not Detected [facility] Comment on above: Order Comment: A neg ative FilmArray panel does not exclude the possibility of viral or bacterial infection. Negative results should not be used as the sole basis for diagnosis, treatment, or other mangement decisions. Performed By: #### L [id number] #### [facility] [address] [place] [address] [place] INFLUENZA B Negative Normal Negative [facility] Comment on above: Order Comment: A neg ative FilmArray panel does not exclude the possibility of viral or bacterial infection. Negative results should not be used as the sole basis for diagnosis, treatment, or other mangement decisions. Performed By: #### L [id number] #### [facility] [address] [place] [address] [place] MYCOPLASMA PNEUMONIAE Negative Normal [facility] Comment on above: Order Comment: A neg ative FilmArray panel does not exclude the possibility of viral or bacterial infection. Negative results should not be used as the sole basis for diagnosis, treatment, or other mangement decisions. Performed By: #### L [id number] #### [facility] [address] [place] [address] [place] PARAINFLUENZA VIRUS 1 Negative Normal Negative [facility] Comment on above: Order Comment: A neg ative FilmArray panel does not exclude the possibility of viral or bacterial infection. Negative results should not be used as the sole basis for diagnosis, treatment, or other mangement decisions. Performed By: #### L [id number] #### [facility] [address] [place] [address] [place] PARAINFLUENZA VIRUS 2 Negative Normal Negative [facility] Comment on above: Order Comment: A neg ative FilmArray panel does not exclude the possibility of viral or bacterial infection. Negative results should not be used as the sole basis for diagnosis, treatment, or other mangement decisions. Performed By: #### L [id number] #### [address] PARAINFLUENZA VIRUS 3 Negative Normal Negative [facility] Comment on above: Order Comment: A neg ative FilmArray panel does not exclude the possibility of viral or bacterial infection. Negative results should not be used as the sole basis for diagnosis, treatment, or other mangement decisions. Performed By: #### L [id number] #### [facility] [address] [place] [address] PARAINFLUENZA VIRUS 4 Negative Normal Negati ve or Not Detected [facility] Comment on above: Order Comment: A neg ative FilmArray panel does not exclude the possibility of viral or bacterial infection. Negative results should not be used as the sole basis for diagnosis, treatment, or other mangement decisions. Performed By: #### L [id number] #### [address] RESPIRATORY SYNCYTIAL VIRUS Negative Normal Negative or Not Detected [facility] Comment on above: Order Comment: A neg ative FilmArray panel does not exclude the possibility of viral or bacterial infection. Negative results should not be used as the sole basis for diagnosis, treatment, or other mangement decisions. Performed By: #### L [id number] #### [address] RHINO/ENTEROVIRUS Negative Normal Negative [facility] Comment on above: Order Comment: A neg ative FilmArray panel does not exclude the possibility of viral or bacterial infection. Negative results should not be used as the sole basis for diagnosis, treatment, or other mangement decisions. Performed By: #### L [id number] #### [facility] [address] [place] [address] SEVERE ACUTE RESPIRATORY SYNDROME COV-2 Negative Normal Negative [facility] Comment on above: Order Comment: A neg ative FilmArray panel does not exclude the possibility of viral or bacterial infection. Negative results should not be used as the sole basis for diagnosis, treatment, or other mangement decisions. Result Comment: This test is performed using RT-PCR for the detection of Severe Acute Respiratory Syndrome Coronavirus 2 (SARS-CoV-2) in the [employer] Respiratory Panel 2.1 assay and analyzed using the [employer]. Performed By: #### L [id number] #### [facility] [address] [place] [address] POCT GLUCOSE METERon 022 Glucose [Mass/Vol] 334 mg/dL High [address] [place] [address] Comment on above: Result Comment: ACCE PT RESULTS Performed By: #### L [id number] #### [facility] [address] [place] [address] [place] Glucose [Mass/Vol] 255 mg/dL High [address] [place] [address] Comment on above: Result Comment: ACCE PT RESULTS Performed By: #### L [id number] #### [facility] [address] [place] [address] [place] Glucose [Mass/Vol] 281 mg/dL High [address] [place] [address] Comment on above: Result Comment: ACCE PT RESULTS Performed By: #### L [id number] #### [facility] [address] [place] [address] [place] Glucose [Mass/Vol] 195 mg/dL High [address] [place] [address] Comment on above: Result Comment: ACCE PT RESULTS Performed By: #### L [id number] #### [facility] [address] [place] [address] [place] Glucose [Mass/Vol] 233 mg/dL High [address] [place] [address] Comment on above: Result Comment: ACCE PT RESULTS Performed By: #### L [id number] #### [facility] [address] [place] [address] Respiratory pathogens DNA an d RNA panel PAT+non-probe (Nph)Ordered By: Carly Sy on 09-13-2022 Adenovirus DNA PAT+probe Nom (Unsp spec) Negative Negative or Not Detected [facility] B. parapertussis DNA PAT+probe Ql (Unsp spec) Negative Negative or Not Detected [facility] B. pertussis toxin promoter region PAT+probe Ql (Nph) Negative Negative [facility] C. pneumoniae DNA PAT+probe Ql (Resp) Negative Negative [facility] FLUAV H1 2009 pand RNA PAT+probe Ql (Unsp spec) Negative Negative or Not Detected [facility] FLUAV H1 RNA PAT+probe Ql (Unsp spec) Negative Negative or Not Detected [facility] FLUAV H3 RNA PAT+probe Ql (Unsp spec) Negative Negative or Not Detected [facility] FLUBV RNA PAT+probe Ql (Unsp spec) Negative Negative [facility] HCoV 229E RNA PAT+probe Ql (Unsp spec) Negative Negative [facility] HCoV HKU1 RNA PAT+probe Ql (Unsp spec) Negative Negative [facility] HCoV NL63 RNA PAT+probe Ql (Unsp spec) Not detected Not Detected [facility] HCoV OC43 RNA PAT+probe Ql (Unsp spec) Negative Negative [facility] hMPV RNA PAT+probe Nom (Unsp spec) Negative Negative or Not Detected [facility] M. pneumoniae DNA PAT+probe Ql (Unsp spec) Negative [facility] Parainfluenza virus 1 RNA PAT+probe Ql (Unsp spec) Negative Negative [facility] Parainfluenza virus 2 RNA PAT+probe Ql (Unsp spec) Negative Negative [facility] Parainfluenza virus 3 RNA PAT+probe Ql (Unsp spec) Negative Negative [facility] Parainfluenza virus 4 RNA PAT+probe Ql (Unsp spec) Negative Negative or Not Detected [facility] Rhinovirus+Enterovirus RNA PAT+probe Ql (Upper resp) Negative Negative [facility] RSV RNA PAT+probe Ql (Resp) Negative Negative or Not Detected [facility] SARS-CoV-2 (COVID-19) RNA PAT+non-probe Ql (Nph) Negative Negative [facility] Comment on above: This test is performed using RT-PCR for the detection of Severe Acute Respiratory Syndrome Coronavirus 2 (SARS-CoV-2) in the [employer] Respiratory Panel 2.1 assay and analyzed using the [employer] FilmArray Torch. A negative FilmArray panel does not exclude the possibility of viral or bacterial infection. Negative results should not be used as the sole basis for diagnosis, treatment, or other mangement decisions. [facility] BASIC METABOLIC PANELon 11-0 ANION GAP IN SER/PLAS 11.2 unit/s Normal 8.0-22.0 [facility] Comment on above: Performed By: #### L [id number] #### [facility] [address] [place] [address] [place] Calcium [Mass/Vol] 8.9 mg/dL Normal 8.7-10.4 [facility] Comment on above: Performed By: #### L [id number] #### [facility] [address] [place] [address] [place] Chloride [Moles/Vol] 107 mmol/L Normal 99-109 [facility] Comment on above: Performed By: #### L [id number] #### [facility] [address] [place] [address] [place] CO2 [Moles/Vol] 25 mmol/L Normal 20-31 [facility] Comment on above: Performed By: #### L [id number] #### [facility] [address] [place] [address] [place] Creatinine [Mass/Vol] 1.9 mg/dL High 0.7-1.3 [facility] Comment on above: Performed By: #### L [id number] #### [facility] [address] [place] [id number] [place] GLOMERULAR FILTRATION RATE ML/MIN/1.73 SQ M.PREDICTED 39.6 mL/min/1.73m*2 Normal [facility] Comment on above: Result Comment: CALCULATION BASED ON THE CHRONIC KIDNEY DISEASE EPIDEMIOLOGY COLLABORATION (CKD-EPI) EQUATION REFIT WITHOUT ADJUSTMENT FOR RACE. GFR LESS THAN 60 mL/min/1.73m2: SUGGESTIVE OF CHRONIC KIDNEY DISEASE. GFR LESS THAN 15 mL/min/1.73m2: SUGGESTIVE OF END STAGE RENAL DISEASE. Performed By: #### L [id number] #### [facility] [address] [place] [address] [place] Glucose [Mass/Vol] 216 mg/dL High 74-106 [facility] Comment on above: Result Comment: NOTE IF THIS IS A FASTING SPECIMEN THE FOLLOWING RANGES APPLY: NORMAL 70 TO 99 mg/dL PREDIABETIC 100 TO 125 mg/dL DIABETIC >= 126 mg/dL Performed By: #### L [id number] #### [facility] [address] [place] [address] OSMOLALITY (MOSM/KG) OF SER/PLAS BY CALCULATION 293 mosm/kg Normal 275-305 [facility] Comment on above: Performed By: #### L [id number] #### [address] Potassium [Moles/Vol] 5.2 mmol/L High 3.6-5.1 [facility] Comment on above: Performed By: #### L [id number] #### [facility] [address] [place] [address] Sodium [Moles/Vol] 138 mmol/L Normal 132-146 [facility] Comment on above: Performed By: #### L AB15 #### [address] Urea nitrogen [Mass/Vol] 42 mg/dL High 9-23 [facility] Comment on above: Performed By: #### L AB15 #### [place] [address] [place] UREA NITROGEN/CREATININE (MASS RATIO) IN SER/PLAS 22.1 unit/s High 6.0-20.0 [facility] Comment on above: Performed By: #### L [id number] #### [facility] [address] [place] [address] [place] Bacteria identified Cx Nom ( U)Ordered By: Avni Choi on 09-12-2022 Bacteria identified Cx Nom (Unsp spec) 5,000 col/ml [facility] Comment on above: SKIN MARY. NO FURTH ER IDENTIFICATION & NO SENSITIVITY. [facility] Basic metabolic 1998 panelon 09-12-2022 Anion gap [Moles/Vol] 11.2 mmol/L [facility] Calcium [Mass/Vol] 8.9 mg/dL 8.7 - 10. 4 mg/dL [facility] Chloride [Moles/Vol] 107 mmol/L 99 - 10 9 mmol/L [facility] CO2 [Moles/Vol] 25 mmol/L 20 - 31 mmol/L [facility] Creatinine [Mass/Vol] 1.9 mg/dL High 0.7 - 1.3 mg/dL [facility] GFR/1.73 sq M.predicted MDRD (S/P/Bld) [Vol rate/Area] 39.6 mL/min/{1.73_m2} mL/min/1.73m *2 [facility] Comment on above: CALCULATION BASED ON THE CHRONIC KIDNEY DISEASE EPIDEMIOLOGY COLLABORATION (CKD-EPI) EQUATION REFIT WITHOUT ADJUSTMENT FOR RACE. GFR LESS THAN 60 mL/min/1.73m2: SUGGESTIVE OF CHRONIC KIDNEY DISEASE. GFR LESS THAN 15 mL/min/1.73m2: SUGGESTIVE OF END STAGE RENAL DISEASE. Glucose [Mass/Vol] 216 mg/dL High 74 - 106 mg/dL [facility] Comment on above: NOTE IF THIS IS A FASTING SPECIMEN THE FOLLOWING RANGES APPLY: NORMAL 70 TO 99 mg/dL PREDIABETIC 100 TO 125 mg/dL DIABETIC >= 126 mg/dL Interpretation and review of laboratory results Abnormal [facility] Osmolality Calc [Osmolality] 293 mosm/kg 275 - 305 mosm/kg [facility] Potassium [Moles/Vol] 5.2 mmol/L High 3.6 - 5.1 mmol/L [facility] Sodium [Moles/Vol] 138 mmol/L 132 - 146 mmol/L [facility] Urea nitrogen [Mass/Vol] 42 mg/dL High 9 - 23 mg/dL [facility] Urea nitrogen/Creatinine [Mass ratio] 22.1 mg/mg High [facility] CBCon 09-12-2022 Erythrocyte distribution width (RBC) [Ratio] 14.1 % Normal 11.5-14.5 [facility] Comment on above: Performed By: #### L [id number] #### [facility] [address] [place] [address] ERYTHROCYTE MEAN CORPUSCULAR HEMOGLOBIN CONCENTRATION (G/DL) BY AUTOMATED 34.4 g/dL Normal 31.0-37.0 [facility] Comment on above: Performed By: #### L [id number] #### [facility] [address] [place] [address] Hematocrit (Bld) [Volume fraction] 25.5 % Low 41.0-53.0 [facility] Comment on above: Performed By: #### L [id number] #### [facility] [address] [place] [address] Hemoglobin (Bld) [Mass/Vol] 8.8 g/dL Low 13.5-17.5 [facility] Comment on above: Performed By: #### L [id number] #### [facility] [address] [place] [address] MCH (RBC) [Entitic mass] 30.5 pg Normal 26.0-34.0 [facility] Comment on above: Performed By: #### L [id number] #### [facility] [address] [place] [address] MCV (RBC) [Entitic vol] 88.7 fL Normal 80.0-100.0 [facility] Comment on above: Performed By: #### L [id number] #### [facility] [address] [place] [address] Platelet mean volume (Bld) [Entitic vol] 7.4 fL Normal 7.4-10.4 [facility] Comment on above: Performed By: #### L [id number] #### [facility] [address] [place] [address] PLATELETS (10*3/UL) IN BLOOD AUTOMATED COUNT 264 10*3/uL Normal 140-440 [facility] Comment on above: Performed By: #### L [id number] #### [facility] [address] [place] [address] RBC (Bld) [#/Vol] 2.88 10*6/uL Low 4.50-5.90 [facility] Comment on above: Performed By: #### L [id number] #### [facility] [address] [place] [address] WBC (Bld) [#/Vol] 7.4 10*3/uL Normal 4.0-11.0 [facility] Comment on above: Performed By: #### L [id number] #### [facility] [address] [place] [address] CBC panel Auto (Bld)on 09-12 Erythrocyte distribution width (RBC) [Ratio] 14.1 % 11.5 - 14.5 % [facility] Hematocrit (Bld) [Volume fraction] 25.5 % Low 41.0 - 53.0 % [facility] Hemoglobin (Bld) [Mass/Vol] 8.8 g/dL Low 13.5 - 17.5 g/dL [facility] Interpretation and review of laboratory results Abnormal [facility] MCH (RBC) [Entitic mass] 30.5 pg 26.0 - 34.0 pg [facility] MCHC (RBC) [Mass/Vol] 34.4 g/dL 31.0 - 37.0 g/dL [facility] MCV (RBC) [Entitic vol] 88.7 fL 80.0 - 100.0 fL [facility] Platelet mean volume (Bld) [Entitic vol] 7.4 fL 7.4 - 10.4 fL [facility] Platelets (Bld) [#/Vol] 264 10*3/uL 140 - 440 10*3/uL [facility] RBC (Bld) [#/Vol] 2.88 10*6/uL Low 4.50 - 5.9 0 10*6/uL [facility] WBC (Bld) [#/Vol] 7.4 10*3/uL 4.0 - 11.0 10*3/uL [facility] Glucose baseline (BldC) [Mas s/Vol]on 09-12-2022 Glucose [Mass/Vol] 268 mg/dL High 74 - 118 [facility] Comment on above: ACCEPT RESULTS Interpretation and review of laboratory results Abnormal [facility] Glucose [Mass/Vol] 197 mg/dL High 74 - 118 [facility] Comment on above: ACCEPT RESULTS Interpretation and review of laboratory results Abnormal [facility] Glucose [Mass/Vol] 265 mg/dL High 74 - 118 [facility] Comment on above: ACCEPT RESULTS Interpretation and review of laboratory results Abnormal [facility] Glucose [Mass/Vol] 181 mg/dL High 74 - 118 [facility] Comment on above: ACCEPT RESULTS Interpretation and review of laboratory results Abnormal [facility] Light Green Topon 09-12-2022 Extra Tube Hold for add-ons. [facility] Comment on above: Auto resulted. [facility] POCT GLUCOSE METERon 022 Glucose [Mass/Vol] 268 mg/dL High 74-118 [facility] Comment on above: Result Comment: ACCE PT RESULTS Performed By: #### L [id number] #### [facility] [address] [place] [address] [place] Glucose [Mass/Vol] 197 mg/dL High 74-118 [facility] Comment on above: Result Comment: ACCE PT RESULTS Performed By: #### L [id number] #### [facility] [address] [place] [address] [place] Glucose [Mass/Vol] 265 mg/dL High 74-118 [facility] Comment on above: Result Comment: ACCE PT RESULTS Performed By: #### L [id number] #### [facility] [address] [place] [address] [place] Glucose [Mass/Vol] 181 mg/dL High 74-118 [facility] Comment on above: Result Comment: ACCE PT RESULTS Performed By: #### L [id number] #### [facility] [address] [place] [address] [place] BASIC METABOLIC PANELon 11-0 ANION GAP IN SER/PLAS 10.0 unit/s Normal 8.0-22.0 [facility] Comment on above: Performed By: #### L [id number] #### [facility] [address] [place] [address] [facility] Calcium [Mass/Vol] 8.7 mg/dL Normal 8.7-10.4 [facility] Comment on above: Performed By: #### L [id number] #### [facility] [address] [place] [address] [facility] Chloride [Moles/Vol] 109 mmol/L Normal 99-109 [facility] Comment on above: Performed By: #### L [id number] #### [facility] [address] [place] [address] [facility] CO2 [Moles/Vol] 24 mmol/L Normal 20-31 [facility] Comment on above: Performed By: #### L [id number] #### [facility] [address] [place] [address] [place] Creatinine [Mass/Vol] 1.9 mg/dL High 0.7-1.3 [facility] Comment on above: Performed By: #### L [id number] #### [facility] [address] [place] [address] [place] GLOMERULAR FILTRATION RATE ML/MIN/1.73 SQ M.PREDICTED 39.6 mL/min/1.73m*2 Normal [facility] Comment on above: Result Comment: CALCULATION BASED ON THE CHRONIC KIDNEY DISEASE EPIDEMIOLOGY COLLABORATION (CKD-EPI) EQUATION REFIT WITHOUT ADJUSTMENT FOR RACE. GFR LESS THAN 60 mL/min/1.73m2: SUGGESTIVE OF CHRONIC KIDNEY DISEASE. GFR LESS THAN 15 mL/min/1.73m2: SUGGESTIVE OF END STAGE RENAL DISEASE. Performed By: #### L [id number] #### [facility] [address] [place] [address] [place] Glucose [Mass/Vol] 181 mg/dL High 74-106 [facility] Comment on above: Result Comment: NOTE IF THIS IS A FASTING SPECIMEN THE FOLLOWING RANGES APPLY: NORMAL 70 TO 99 mg/dL PREDIABETIC 100 TO 125 mg/dL DIABETIC >= 126 mg/dL Performed By: #### L [id number] #### [address] OSMOLALITY (MOSM/KG) OF SER/PLAS BY CALCULATION 292 mosm/kg Normal 275-305 [facility] Comment on above: Performed By: #### L [id number] #### [facility] [address] [place] [address] Potassium [Moles/Vol] 5.0 mmol/L Normal 3.6-5.1 [facility] Comment on above: Performed By: #### L [id number] #### [address] Sodium [Moles/Vol] 138 mmol/L Normal 132-146 [facility] Comment on above: Performed By: #### L [id number] #### [facility] [address] [place] [address] Urea nitrogen [Mass/Vol] 46 mg/dL High 9-23 [facility] Comment on above: Performed By: #### L [id number] #### [facility] [address] [place] [address] [place] UREA NITROGEN/CREATININE (MASS RATIO) IN SER/PLAS 24.2 unit/s High 6.0-20.0 [facility] Comment on above: Performed By: #### L [id number] #### [facility] [address] [place] [address] Basic metabolic 1998 panelon 09-11-2022 Anion gap [Moles/Vol] 10.0 mmol/L [facility] Calcium [Mass/Vol] 8.7 mg/dL 8.7 - 10. 4 mg/dL [facility] Chloride [Moles/Vol] 109 mmol/L 99 - 10 9 mmol/L [facility] CO2 [Moles/Vol] 24 mmol/L 20 - 31 mmol/L [facility] Creatinine [Mass/Vol] 1.9 mg/dL High 0.7 - 1.3 mg/dL [facility] GFR/1.73 sq M.predicted MDRD (S/P/Bld) [Vol rate/Area] 39.6 mL/min/{1.73_m2} mL/min/1.73m *2 [facility] Comment on above: CALCULATION BASED ON THE CHRONIC KIDNEY DISEASE EPIDEMIOLOGY COLLABORATION (CKD-EPI) EQUATION REFIT WITHOUT ADJUSTMENT FOR RACE. GFR LESS THAN 60 mL/min/1.73m2: SUGGESTIVE OF CHRONIC KIDNEY DISEASE. GFR LESS THAN 15 mL/min/1.73m2: SUGGESTIVE OF END STAGE RENAL DISEASE. Glucose [Mass/Vol] 181 mg/dL High 74 - 106 mg/dL [facility] Comment on above: NOTE IF THIS IS A FASTING SPECIMEN THE FOLLOWING RANGES APPLY: NORMAL 70 TO 99 mg/dL PREDIABETIC 100 TO 125 mg/dL DIABETIC >= 126 mg/dL Interpretation and review of laboratory results Abnormal [facility] Osmolality Calc [Osmolality] 292 mosm/kg 275 - 305 mosm/kg [facility] Potassium [Moles/Vol] 5.0 mmol/L 3.6 - 5.1 mmol/L [facility] Sodium [Moles/Vol] 138 mmol/L 132 - 146 mmol/L [facility] Urea nitrogen [Mass/Vol] 46 mg/dL High 9 - 23 mg/dL [facility] Urea nitrogen/Creatinine [Mass ratio] 24.2 mg/mg High [facility] Blood type and Indirect anti body screen panel (Bld)on 09-11-2022 ABO group Nom (Bld) O Licki ng [facility] Blood group antibody screen GEL Ql Negative [facility] Rh Nom (Bld) Positive [facility] CBC W Auto Differential pane l (Bld)Ordered By: Britt Hammonds on 09-11-2022 Basophils (Bld) [#/Vol] 0.0 10*3/uL 0.0 - 0.1 10*3/uL [facility] Basophils/100 WBC (Bld) 0.2 % 0.0 - 1.0 % [facility] Eosinophils (Bld) [#/Vol] 0.3 10*3/uL 0.1 - 0.3 10*3/uL [facility] Eosinophils/100 WBC (Bld) 4.1 % High 1.0 - 4.0 % [facility] Erythrocyte distribution width (RBC) [Ratio] 14.5 % 11.5 - 14.5 % [facility] Hematocrit (Bld) [Volume fraction] 20.3 % Low 41.0 - 53.0 % [facility] Hemoglobin (Bld) [Mass/Vol] 6.8 g/dL Critically low 13.5 - 17.5 g/dL [facility] Interpretation and review of laboratory results Abnormal [facility] Lymphocytes (Bld) [#/Vol] 1.7 10*3/uL 1.0 - 3.5 10*3/uL [facility] Lymphocytes/100 WBC (Bld) 26.0 % 24.0 - 44.0 % [facility] MCH (RBC) [Entitic mass] 30.2 pg 26.0 - 34.0 pg [facility] MCHC (RBC) [Mass/Vol] 33.7 g/dL 31.0 - 37.0 g/dL [facility] MCV (RBC) [Entitic vol] 89.5 fL 80.0 - 100.0 fL [facility] Monocytes (Bld) [#/Vol] 1.0 10*3/uL 0.1 - 1.0 10*3/uL [facility] Monocytes/100 WBC (Bld) 14.8 % High 1.0 - 7.0 % [facility] Neutrophils (Bld) [#/Vol] 3.6 10*3/uL 1.6 - 7.5 10*3/uL [facility] Neutrophils/100 WBC (Bld) 54.9 % 36.0 - 71.0 % [facility] Platelet mean volume (Bld) [Entitic vol] 7.0 fL Low 7.4 - 10.4 fL [facility] Platelets (Bld) [#/Vol] 264 10*3/uL 140 - 440 10*3/uL [facility] RBC (Bld) [#/Vol] 2.27 10*6/uL Low 4.50 - 5.9 0 10*6/uL [facility] WBC (Bld) [#/Vol] 6.6 10*3/uL 4.0 - 11.0 10*3/uL [facility] CBC WITH AUTO DIFFERENTIALon 09-11-2022 Basophils (Bld) [#/Vol] 0.0 10*3/uL Normal 0.0-0.1 [facility] Comment on above: Performed By: #### L [id number] #### [facility] [address] [place] [address] [place] Basophils/100 WBC (Bld) 0.2 % Normal 0.0-1.0 L [facility] Comment on above: Performed By: #### L [id number] #### [facility] [address] [place] [address] [place] Eosinophils (Bld) [#/Vol] 0.3 10*3/uL Normal 0.1-0.3 [facility] Comment on above: Performed By: #### L [id number] #### [facility] [address] [place] [address] [place] Eosinophils/100 WBC (Bld) 4.1 % High 1.0-4.0 [facility] Comment on above: Performed By: #### L [id number] #### [facility] [address] [place] [address] Erythrocyte distribution width (RBC) [Ratio] 14.5 % Normal 11.5-14.5 [facility] Comment on above: Performed By: #### L [id number] #### [facility] [address] [place] [address] ERYTHROCYTE MEAN CORPUSCULAR HEMOGLOBIN CONCENTRATION (G/DL) BY AUTOMATED 33.7 g/dL Normal 31.0-37.0 [facility] Comment on above: Performed By: #### L [id number] #### [facility] [address] [place] [address] Hematocrit (Bld) [Volume fraction] 20.3 % Low 41.0-53.0 [facility] Comment on above: Performed By: #### L [id number] #### [facility] [address] [place] [address] Hemoglobin (Bld) [Mass/Vol] 6.8 g/dL Invalid Interpretation Code 13.5-17.5 [facility] Comment on above: Performed By: #### L [id number] #### [facility] [address] [place] [address] Lymphocytes (Bld) [#/Vol] 1.7 10*3/uL Normal 1.0-3.5 [facility] Comment on above: Performed By: #### L [id number] #### [facility] [address] [place] [address] Lymphocytes/100 WBC (Bld) 26.0 % Normal 24.0-44.0 [facility] Comment on above: Performed By: #### L [id number] #### [facility] [address] [place] [address] MCH (RBC) [Entitic mass] 30.2 pg Normal 26.0-34.0 [facility] Comment on above: Performed By: #### L [id number] #### [facility] [address] [place] [id number] MCV (RBC) [Entitic vol] 89.5 fL Normal 80.0-100.0 [facility] Comment on above: Performed By: #### L [id number] #### [facility] [address] [place] [address] [place] Monocytes (Bld) [#/Vol] 1.0 10*3/uL Normal 0.1-1.0 [facility] Comment on above: Performed By: #### L [id number] #### [facility] [address] [place] [address] [place] Monocytes/100 WBC (Bld) 14.8 % High 1.0-7.0 [facility] Comment on above: Performed By: #### L [id number] #### [facility] [address] [place] [address] [place] Neutrophils (Bld) [#/Vol] 3.6 10*3/uL Normal 1.6-7.5 [facility] Comment on above: Performed By: #### L [id number] #### [facility] [address] [place] [address] [facility] Neutrophils/100 WBC (Bld) 54.9 % Normal 36.0-71.0 [facility] Comment on above: Performed By: #### L [id number] #### [facility] [address] [place] [address] [place] Platelet mean volume (Bld) [Entitic vol] 7.0 fL Low 7.4-10.4 [facility] Comment on above: Performed By: #### L [id number] #### [facility] [address] [place] [address] [place] PLATELETS (10*3/UL) IN BLOOD AUTOMATED COUNT 264 10*3/uL Normal 140-440 [facility] Comment on above: Performed By: #### L [id number] #### [facility] [address] [place] [address] [place] RBC (Bld) [#/Vol] 2.27 10*6/uL Low 4.50-5.90 [facility] Comment on above: Performed By: #### L [id number] #### [facility] [address] [place] [address] [place] WBC (Bld) [#/Vol] 6.6 10*3/uL Normal 4.0-11.0 [facility] Comment on above: Performed By: #### L [id number] #### [facility] [address] Culture Urineon 09-11-2022 Culture Urine Bacteria Ur Cult: QUANTITY: Greater than 100,000 colonies/mL. PROTEUS MIRABILIS: Isolated OrganismID: 1.1 Antibiotic INTERP STEPHIE Status Ampicillin S F Unasyn S F Piperacillin/Tazobactam S F Meropenem S F Cefazolin S F Ceftriaxone S F Cefepime S F Levofloxacin S F Gentamicin S F Tobramycin S F Trimeth/Sulfa S F Nitrofurantoin R F Tetracycline R F Normal [facility] Comment on above: Performed By: #### H H #### [facility] [address] [id number] , Adalberto Epperson M.D. FCAP, FASCP Glucose baseline (BldC) [Mas s/Vol]on 09-11-2022 Glucose [Mass/Vol] 311 mg/dL High 74 - 118 [facility] Comment on above: ACCEPT RESULTS Interpretation and review of laboratory results Abnormal [facility] Glucose [Mass/Vol] 209 mg/dL High 74 - 118 [facility] Comment on above: ACCEPT RESULTS Interpretation and review of laboratory results Abnormal [facility] Glucose [Mass/Vol] 231 mg/dL High 74 - 118 [facility] Comment on above: ACCEPT RESULTS Interpretation and review of laboratory results Abnormal [facility] Glucose [Mass/Vol] 176 mg/dL High 74 - 118 [facility] Comment on above: ACCEPT RESULTS Interpretation and review of laboratory results Abnormal [facility] MAGNESIUMon 09-11-2022 Magnesium [Mass/Vol] 2.2 mg/dL Normal 1.5-2.3 [facility] Comment on above: Performed By: #### L [id number] #### [facility] [place] [id number] [facility] Magnesiumon 09-11-2022 Magnesium [Mass/Vol] 2.2 mg/dL 1.5 - 2 .3 mg/dL [facility] Magnesium [Mass/Vol]on 09-11 Interpretation and review of laboratory results Normal [facility] No Panel Informationon 09-11 Extra Tube Hold for add-ons. [facility] Comment on above: Auto resulted. [facility] POCT GLUCOSE METERon 022 Glucose [Mass/Vol] 311 mg/dL High [address] [place] [address] Comment on above: Result Comment: ACCE PT RESULTS Performed By: #### L [id number] #### [facility] [address] [place] [address] [place] Glucose [Mass/Vol] 209 mg/dL [address] Comment on above: Result Comment: ACCE PT RESULTS Performed By: #### L [id number] #### [facility] [address] [place] [address] [place] Glucose [Mass/Vol] 231 mg/dL [address] Comment on above: Result Comment: ACCE PT RESULTS Performed By: #### L [id number] #### [facility] [address] [place] [address] [place] Glucose [Mass/Vol] 176 mg/dL [address] Comment on above: Result Comment: ACCE PT RESULTS Performed By: #### L [id number] #### [facility] [address] [place] [address] [place] Prepare RBC: 1 Units Noon ABO and Rh group Nom (Bld) Blood group O Rh(D) positive [facility] ABO and Rh group Nom (Bld) 5100 [facility] ORD BLOOD BANK BLOOD EXPIRATION DATE [facility] ORD BLOOD BANK DISPENSE STATUS IS [facility] ORD BLOOD BANK PRODUCT CODE [id number] [facility] ORD BLOOD BANK UNIT NUMBER [id number] [facility] TYPE AND SCREENon 09-11-2022 ABO group Nom (Bld) O Normal [facility] Comment on above: Performed By: #### L [id number] #### [facility] [address] [place], [place] [address] RH TYPE Positive Normal [facility] Comment on above: Performed By: #### L [id number] #### [facility] [address] [place] [id number] [facility] Urine culture routineOrdered By: ROSANNE VARELA on 09-11-2022 Bacteria identified Cx Nom (U) Proteus Mirabilis Abnormal [facility] 25-hydroxyvitamin D3 [Mass/V ol]on 09-10-2022 Interpretation and review of laboratory results Normal [facility] Vitamin D+Metabolites [Mass/Vol] 44.7 ng/mL 30.0 - 100.0 ng/mL [facility] Comment on above: Vitamin D Status: Deficient = Vitamin D 25(OH) Less than 20.0 ng/mL Insufficient = Vitamin D 25(OH) 20.0 to 29.9 ng/mL Sufficient: Vitamin D 25(OH) 30.0-100.0 ng/dL Upper Safety Limit: Vitamin D 25(OH) Greater than 100.0 ng/mL [facility] BASIC METABOLIC PANELon 0 ANION GAP IN SER/PLAS 12.1 unit/s Normal 8.0-22.0 [facility] Comment on above: Performed By: #### L [id number] #### [facility] [address] [place] [phone] Calcium [Mass/Vol] 8.9 mg/dL Normal 8.7-10.4 [facility] Comment on above: Performed By: #### L [id number] #### [facility] [address] [place] [address] [facility] Chloride [Moles/Vol] 107 mmol/L Normal 99-109 [facility] Comment on above: Performed By: #### L [id number] #### [facility] [address] [place] [address] [facility] CO2 [Moles/Vol] 24 mmol/L Normal 20-31 [facility] Comment on above: Performed By: #### L [id number] #### [facility] [address] [place] [address], [place] [address] Creatinine [Mass/Vol] 2.0 mg/dL High 0.7-1.3 [facility] Comment on above: Performed By: #### L AB15 #### [address] [address] [place] GLOMERULAR FILTRATION RATE ML/MIN/1.73 SQ M.PREDICTED 37.3 mL/min/1.73m*2 Normal [facility] Comment on above: Result Comment: CALCULATION BASED ON THE CHRONIC KIDNEY DISEASE EPIDEMIOLOGY COLLABORATION (CKD-EPI) EQUATION REFIT WITHOUT ADJUSTMENT FOR RACE. GFR LESS THAN 60 mL/min/1.73m2: SUGGESTIVE OF CHRONIC KIDNEY DISEASE. GFR LESS THAN 15 mL/min/1.73m2: SUGGESTIVE OF END STAGE RENAL DISEASE. Performed By: #### L [id number] #### [address] [address] [facility] Glucose [Mass/Vol] 195 mg/dL High 74-106 [facility] Comment on above: Result Comment: NOTE IF THIS IS A FASTING SPECIMEN THE FOLLOWING RANGES APPLY: NORMAL 70 TO 99 mg/dL PREDIABETIC 100 TO 125 mg/dL DIABETIC >= 126 mg/dL Performed By: #### L [id number] #### [address] [address] [place] OSMOLALITY (MOSM/KG) OF SER/PLAS BY CALCULATION 294 mosm/kg Normal 275-305 [facility] Comment on above: Performed By: #### L [id number] #### [address] [address] [place] Potassium [Moles/Vol] 5.1 mmol/L Normal 3.6-5.1 [facility] Comment on above: Performed By: #### L [id number] #### [facility] [address] [place] [address] [place] Sodium [Moles/Vol] 138 mmol/L Normal 132-146 [facility] Comment on above: Performed By: #### L [id number] #### [facility] [address] [place] [address] [place] Urea nitrogen [Mass/Vol] 50 mg/dL High 9-23 [facility] Comment on above: Performed By: #### L [id number] #### [facility] [address] [place] [address] [place] UREA NITROGEN/CREATININE (MASS RATIO) IN SER/PLAS 25.0 unit/s High 6.0-20.0 [facility] Comment on above: Performed By: #### L [id number] #### [facility] [address] [place] [address] [place] ANION GAP IN SER/PLAS 11.6 unit/s Normal 8.0-22.0 [facility] Comment on above: Performed By: #### L [id number] #### [facility] [address] [place] [address] [place] Calcium [Mass/Vol] 9.0 mg/dL Normal 8.7-10.4 [facility] Comment on above: Performed By: #### L [id number] #### [facility] [address] [place] [address] [place] Chloride [Moles/Vol] 107 mmol/L Normal 99-109 [facility] Comment on above: Performed By: #### L [id number] #### [facility] [address] [place] [address] [place] CO2 [Moles/Vol] 23 mmol/L Normal 20-31 [facility] Comment on above: Performed By: #### L [id number] #### [facility] [address] [place] [address] [place] Creatinine [Mass/Vol] 2.1 mg/dL High 0.7-1.3 [facility] Comment on above: Performed By: #### L [id number] #### [address] [address] [place] GLOMERULAR FILTRATION RATE ML/MIN/1.73 SQ M.PREDICTED 35.2 mL/min/1.73m*2 Normal [facility] Comment on above: Result Comment: CALCULATION BASED ON THE CHRONIC KIDNEY DISEASE EPIDEMIOLOGY COLLABORATION (CKD-EPI) EQUATION REFIT WITHOUT ADJUSTMENT FOR RACE. GFR LESS THAN 60 mL/min/1.73m2: SUGGESTIVE OF CHRONIC KIDNEY DISEASE. GFR LESS THAN 15 mL/min/1.73m2: SUGGESTIVE OF END STAGE RENAL DISEASE. Performed By: #### L [id number] #### [address] [address] [facility] Glucose [Mass/Vol] 248 mg/dL High 74-106 [facility] Comment on above: Result Comment: NOTE IF THIS IS A FASTING SPECIMEN THE FOLLOWING RANGES APPLY: NORMAL 70 TO 99 mg/dL PREDIABETIC 100 TO 125 mg/dL DIABETIC >= 126 mg/dL Performed By: #### L [id number] #### [facility] [address] [place] [address] [place] OSMOLALITY (MOSM/KG) OF SER/PLAS BY CALCULATION 295 mosm/kg Normal 275-305 [facility] Comment on above: Performed By: #### L [id number] #### [facility] [address] [place] [address] [place] Potassium [Moles/Vol] 5.6 mmol/L High 3.6-5.1 [facility] Comment on above: Performed By: #### L [id number] #### [facility] [place] [address] [place] Sodium [Moles/Vol] 136 mmol/L Normal 132-146 [facility] Comment on above: Performed By: #### L [id number] #### [facility] [address] Urea nitrogen [Mass/Vol] 53 mg/dL High 9-23 [facility] Comment on above: Performed By: #### L [id number] #### [facility] [address] [place] [address] [place] UREA NITROGEN/CREATININE (MASS RATIO) IN SER/PLAS 25.2 unit/s High 6.0-20.0 [facility] Comment on above: Performed By: #### L [id number] #### [facility] [address] Basic metabolic 1998 panelon 09-10-2022 Anion gap [Moles/Vol] 12.1 mmol/L [facility] Calcium [Mass/Vol] 8.9 mg/dL 8.7 - 10. 4 mg/dL [facility] Chloride [Moles/Vol] 107 mmol/L 99 - 10 9 mmol/L [facility] CO2 [Moles/Vol] 24 mmol/L 20 - 31 mmol/L [facility] Creatinine [Mass/Vol] 2.0 mg/dL High 0.7 - 1.3 mg/dL [facility] GFR/1.73 sq M.predicted MDRD (S/P/Bld) [Vol rate/Area] 37.3 mL/min/{1.73_m2} mL/min/1.73m *2 [facility] Comment on above: CALCULATION BASED ON THE CHRONIC KIDNEY DISEASE EPIDEMIOLOGY COLLABORATION (CKD-EPI) EQUATION REFIT WITHOUT ADJUSTMENT FOR RACE. GFR LESS THAN 60 mL/min/1.73m2: SUGGESTIVE OF CHRONIC KIDNEY DISEASE. GFR LESS THAN 15 mL/min/1.73m2: SUGGESTIVE OF END STAGE RENAL DISEASE. Glucose [Mass/Vol] 195 mg/dL High 74 - 106 mg/dL [facility] Comment on above: NOTE IF THIS IS A FASTING SPECIMEN THE FOLLOWING RANGES APPLY: NORMAL 70 TO 99 mg/dL PREDIABETIC 100 TO 125 mg/dL DIABETIC >= 126 mg/dL Interpretation and review of laboratory results Abnormal [facility] Osmolality Calc [Osmolality] 294 mosm/kg 275 - 305 mosm/kg [facility] Potassium [Moles/Vol] 5.1 mmol/L 3.6 - 5.1 mmol/L [facility] Sodium [Moles/Vol] 138 mmol/L 132 - 146 mmol/L [facility] Urea nitrogen [Mass/Vol] 50 mg/dL High 9 - 23 mg/dL [facility] Urea nitrogen/Creatinine [Mass ratio] 25.0 mg/mg High [facility] CBC WITH AUTO DIFFERENTIALon 09-10-2022 Basophils (Bld) [#/Vol] 0.0 10*3/uL Normal 0.0-0.1 [facility] Comment on above: Performed By: #### L [id number] #### [facility] [address] [place] [address] Basophils/100 WBC (Bld) 0.2 % Normal 0.0-1.0 L [facility] Comment on above: Performed By: #### L [id number] #### [facility] [address] [place] [address] Eosinophils (Bld) [#/Vol] 0.2 10*3/uL Normal 0.1-0.3 [facility] Comment on above: Performed By: #### L [id number] #### [facility] [address] [place] [address] Eosinophils/100 WBC (Bld) 2.2 % Normal 1.0-4.0 [facility] Comment on above: Performed By: #### L [id number] #### [facility] [address] [place] [address] Erythrocyte distribution width (RBC) [Ratio] 14.8 % High 11.5-14.5 [facility] Comment on above: Performed By: #### L [id number] #### [facility] [address] [place] [address] ERYTHROCYTE MEAN CORPUSCULAR HEMOGLOBIN CONCENTRATION (G/DL) BY AUTOMATED 33.8 g/dL Normal 31.0-37.0 [facility] Comment on above: Performed By: #### L [id number] #### [facility] [address] [place] [address] Hematocrit (Bld) [Volume fraction] 23.2 % Low 41.0-53.0 [facility] Comment on above: Performed By: #### L [id number] #### [address] Hemoglobin (Bld) [Mass/Vol] 7.8 g/dL Low 13.5-17.5 [facility] Comment on above: Performed By: #### L [id number] #### [address] Lymphocytes (Bld) [#/Vol] 1.2 10*3/uL Normal 1.0-3.5 [facility] Comment on above: Performed By: #### L [id number] #### [facility] [address] [place] [address] Lymphocytes/100 WBC (Bld) 14.1 % Low 24.0-44.0 [facility] Comment on above: Performed By: #### L [id number] #### [facility] [address] [place] [address] MCH (RBC) [Entitic mass] 30.3 pg Normal 26.0-34.0 [facility] Comment on above: Performed By: #### L [id number] #### [address] MCV (RBC) [Entitic vol] 89.6 fL Normal 80.0-100.0 L [facility] Comment on above: Performed By: #### L [id number] #### [facility] [address] [place] [address] [place] Monocytes (Bld) [#/Vol] 0.9 10*3/uL Normal 0.1-1.0 [facility] Comment on above: Performed By: #### L [id number] #### [facility] [address] [place] [address] [place] Monocytes/100 WBC (Bld) 10.1 % High 1.0-7.0 [facility] Comment on above: Performed By: #### L [id number] #### [facility] [address] [place] [address] [place] Neutrophils (Bld) [#/Vol] 6.4 10*3/uL Normal 1.6-7.5 [facility] Comment on above: Performed By: #### L [id number] #### [facility] [address] [place] [address] [place] Neutrophils/100 WBC (Bld) 73.4 % High 36.0-71.0 [facility] Comment on above: Performed By: #### L [id number] #### [facility] [address] [place] [address] [place] Platelet mean volume (Bld) [Entitic vol] 6.8 fL Low 7.4-10.4 [facility] Comment on above: Performed By: #### L [id number] #### [facility] [address] [place] [address] [place] PLATELETS (10*3/UL) IN BLOOD AUTOMATED COUNT 297 10*3/uL Normal 140-440 [facility] Comment on above: Performed By: #### L [id number] #### [facility] [address] [place] [address] [place] RBC (Bld) [#/Vol] 2.58 10*6/uL Low 4.50-5.90 [facility] Comment on above: Performed By: #### L [id number] #### [facility] [address] [place] [address] [place] WBC (Bld) [#/Vol] 8.7 10*3/uL Normal 4.0-11.0 [facility] Comment on above: Performed By: #### L [id number] #### [facility] COVID/FLU-SOFIAon 09-10-2022 SARS-CoV-2 (COVID-19) RNA PAT+probe Ql (Unsp spec) JOEL SARS ANTIGEN CLINLRR Status = F Presumptive Negative RAPID INFLUENZA A AGN CLINLRR Status = F Negative RAPID INFLUENZA B AGN CLINLRR Status = F Negative Normal Negative [facility] Comment on above: Order Comment: This test has not been FDA cleared or approved; this test has been authorized by the FDA under an Emergency Use Authorization (EUA). Authorization for use is approved until the public health emergency is terminated or the EUA is revoked by the FDA. Performed By: #### L [id number] #### [facility] [address] [place] [address] FOLATEon 09-10-2022 FOLATE (NG/ML) IN SER/PLAS 19.9 ng/mL Normal 5.4-24 [facility] Comment on above: Performed By: #### L [id number] #### [facility] [address] [place] [address] Folateon 09-10-2022 Folate [Mass/Vol] 19.9 ng/mL 5.4 - 24 ng/mL [facility] Glucose baseline (BldC) [Mas s/Vol]on 09-10-2022 Glucose [Mass/Vol] 319 mg/dL High 74 - 118 [facility] Comment on above: ACCEPT RESULTS Interpretation and review of laboratory results Abnormal [facility] Glucose [Mass/Vol] 241 mg/dL High 74 - 118 [facility] Comment on above: ACCEPT RESULTS Interpretation and review of laboratory results Abnormal [facility] Glucose [Mass/Vol] 247 mg/dL High 74 - 118 [facility] Comment on above: ACCEPT RESULTS Interpretation and review of laboratory results Abnormal [facility] Glucose [Mass/Vol] 209 mg/dL High 74 - 118 [facility] Comment on above: ACCEPT RESULTS Interpretation and review of laboratory results Abnormal [facility] Glucose [Mass/Vol] 213 mg/dL High 74 - 118 [facility] Comment on above: ACCEPT RESULTS Interpretation and review of laboratory results Abnormal [facility] IRON + TRANSFERRIN + TIBCon 09-10-2022 IRON (UG/DL) IN SER/PLAS 30.0 ug/dL Low 65-175 [facility] Comment on above: Performed By: #### L [id number] #### [facility] [address] [place] [address] IRON BINDING CAPACITY (UG/DL) IN SER/PLAS 270.0 ug/dL Normal 250-425 [facility] Comment on above: Performed By: #### L [id number] #### [facility] [address] [place] [address] IRON SATURATION (%) IN SER/PLAS 11.1 % Low 20.0-50.0 [facility] Comment on above: Performed By: #### L [id number] #### [facility] [address] [place] [address] Magnesium [Mass/Vol] 192.1 mg/dL Low 215-365 [facility] Comment on above: Performed By: #### L [id number] #### [facility] [address] [place] [address] Iron + transferrin + TIBCon 09-10-2022 Interpretation and review of laboratory results Abnormal [facility] Iron [Mass/Vol] 30.0 ug/dL Low 65 - 175 ug/dL [facility] Iron binding capacity [Mass/Vol] 270.0 ug/dL 250 - 425 ug/dL [facility] Iron saturation [Mass fraction] 11.1 % Low 20.0 - 50.0 % [facility] Transferrin [Mass/Vol] 192.1 mg/dL Low 215 - 365 mg/dL [facility] No Panel Informationon 09-10 Interpretation and review of laboratory results Normal [facility] PHOSPHORUSon 09-10-2022 Magnesium [Mass/Vol] 4.4 mg/dL Normal 2.4-5.1 [facility] Comment on above: Performed By: #### L [id number] #### [facility] [address] [place] [address] [facility] POCT GLUCOSE METERon 022 Glucose [Mass/Vol] 319 mg/dL High [address] [place] [address] Comment on above: Result Comment: ACCE PT RESULTS Performed By: #### L [id number] #### [facility] [address] [place] [address] [place] Glucose [Mass/Vol] 241 mg/dL High [address] [place] [address] Comment on above: Result Comment: ACCE PT RESULTS Performed By: #### L [id number] #### [facility] [address] [place] [address] [place] Glucose [Mass/Vol] 247 mg/dL High [address] [place] [address] Comment on above: Result Comment: ACCE PT RESULTS Performed By: #### L [id number] #### [facility] [address] [place] [address] [place] Glucose [Mass/Vol] 209 mg/dL High [address] [place] [address] Comment on above: Result Comment: ACCE PT RESULTS Performed By: #### L [id number] #### [facility] [address] [place] [address] [place] Glucose [Mass/Vol] 213 mg/dL High [address] [place] [address] Comment on above: Result Comment: ACCE PT RESULTS Performed By: #### L [id number] #### [facility] [address] [place] [address] [place] Phosphate [Moles/Vol]on Interpretation and review of laboratory results Normal [facility] Phosphate [Mass/Vol] 4.4 mg/dL 2.4 - 5 .1 mg/dL [facility] TOXICOLOGY SCREEN URINE, JESSICA Jerzy 09-10-2022 Amphetamines Ql (U) Negative Normal Cutoff 1 000 ng/mL [facility] Comment on above: Performed By: #### L [id number] #### [facility] [address] [place] [address] [place] BARBITURATES PRESENCE IN URINE BY SCREEN METHOD Negative Normal Cutoff 200 ng/mL [facility] Comment on above: Performed By: #### L [id number] #### [facility] [address] [place] [address] BENZODIAZEPINE (PRESENCE) IN URINE BY SCREEN METHOD Negative Normal Cutoff 200 ng/mL [facility] Comment on above: Performed By: #### L [id number] #### [facility] [address] [place] [address] CANNABINOID (PRESENCE) IN URINE BY SCREEN METHOD Negative Normal Cutoff 50ng/mL [facility] Comment on above: Performed By: #### L [id number] #### [facility] [address] [place] [address] Cocaine Ql (U) Negative Normal Cutoff 300 ng/mL [facility] Comment on above: Performed By: #### L [id number] #### [facility] [address] [place] [address] Creatinine (U) [Mass/Vol] 60.9 mg/dL Normal [facility] Comment on above: Performed By: #### L [id number] #### [facility] [address] [place] [address] FENTANYL QUALITATIVE URINE Negative Normal Cutoff 1 ng/mL [facility] Comment on above: Performed By: #### L [id number] #### [facility] [address] [place] [address] METHADONE (PRESENCE) IN URINE BY SCREEN METHOD Negative Normal Cutoff 300 ng/mL [facility] Comment on above: Performed By: #### L [id number] #### [facility] [address] [place] [address] OPIATES (PRESENCE) IN URINE BY SCREEN METHOD Negative Normal Cutoff 300 ng/mL [facility] Comment on above: Performed By: #### L [id number] #### [facility] [address] [place] [id number] oxyCODONE Ql (U) Negative Normal Cutoff 300 ng/mL [facility] Comment on above: Performed By: #### L [id number] #### [facility] [address] [place] [id number] Phencyclidine Ql (U) Negative Normal Cutoff 25 ng/mL [facility] Comment on above: Performed By: #### L [id number] #### [facility] [address] [place] [address] TOXICOLOGY SCREEN, SERUMon 1 11-10-2021 Acetaminophen [Mass/Vol] 4 ug/mL Normal 10-30 [facility] Comment on above: Result Comment: THERAPUTIC RANGE IS 10-30 mcg/mL. LEVELS GREATER THAN 150 mcg/mL AT 4 HOURS POST INGESTION ARE POTENTIALLY TOXIC. PLEASE REFER TO [facility] NOMOGRAM FOR LEVELS AT 4 TO 24 HOURS POST INGESTION. Performed By: #### L [id number] #### [facility] [address] [place] [address] ETHANOL (MG/DL) IN SER/PLAS <10.0 Normal <=10.0 [facility] Comment on above: Result Comment: SERUM ALCOHOL REFERENCE VALUES: Less than 10 mg/dL is Negative Greater than 300 mg/dL could be toxic FOR MEDICAL USE ONLY Performed By: #### L [id number] #### [address] SALICYLATES (MG/DL) IN SER/PLAS <3.0 Normal <=29.9 [facility] Comment on above: Result Comment: THERAPEUTIC RANGE = 4.0 TO 10.0 mg/dL RHEUMATOID ARTHRISTIC THERAPEUTIC RANGE = 15-30 mg/dL GREATER THAN 30 mg/dL COULD BE TOXIC Performed By: #### L [id number] #### [facility] [address] [place] [address] URINALYSIS WITH MICROSCOPICo n 09-10-2022 BACTERIA (#/HPF) IN URINE 1+ /HPF Abnormal None [facility] Comment on above: Performed By: #### L [id number] #### [facility] [address] [place] [address] BILIRUBIN, TOTAL PRESENCE IN URINE Negative Normal Negative [facility] Comment on above: Performed By: #### L [id number] #### [facility] [address] [place] [address] Clarity (U) Cloudy Normal Clear [facility] Comment on above: Performed By: #### L [id number] #### [facility] [address] [place] [address] Color (U) Yellow Normal Yellow [facility] Comment on above: Performed By: #### L [id number] #### [facility] [address] [place] [address] Glucose (U) [Mass/Vol] 250 mg/dL Abnormal Negative [facility] Comment on above: Performed By: #### L [id number] #### [facility] [address] [place] [address] HEMOGLOBIN PRESENCE IN URINE Moderate Abnormal Negative [facility] Comment on above: Performed By: #### L [id number] #### [facility] [address] [place] [address] HYALINE CASTS (#/HPF) IN URINE SEDIMENT BY MICROSCOPY 0-5 Normal None [facility] Comment on above: Performed By: #### L [id number] #### [facility] [address] [place] [address] Ketones Ql (U) Negative Normal Negative [facility] Comment on above: Performed By: #### L [id number] #### [facility] [address] [place] [address] LEUKOCYTE ESTERASE PRESENCE IN URINE BY TEST STRIP Small Abnormal Negative [facility] Comment on above: Performed By: #### L [id number] #### [facility] [address] [place] [address] [place] NITRITE PRESENCE IN URINE Negative Normal Negative [facility] Comment on above: Performed By: #### L [id number] #### [facility] [address] [place] [address] pH (U) 5.5 [pH] Normal 4.5-8.0 [facility] Comment on above: Performed By: #### L [id number] #### [facility] [address] [place] [address] Protein (U) [Mass/Vol] mg/dL Abnormal Negative [facility] Comment on above: Performed By: #### L [id number] #### [facility] [address] [place] [address] [place] RBC (#/HPF) IN URINE SEDIMENT 20-40 Abnormal None [facility] Comment on above: Performed By: #### L [id number] #### [facility] [address] [place] [address] Specific gravity (U) [Rel density] 1.018 unit/s Normal [facility] Comment on above: Performed By: #### L [id number] #### [address] SQUAMOUS EPITHELIAL CELLS (#/HPF) IN URINE SEDIMENT Occasional Normal [facility] Comment on above: Performed By: #### L [id number] #### [facility] [address] [place] [address] UROBILINOGEN (MG/DL) IN URINE 0.2 mg/dL Normal 0.2 - 1.0 [facility] Comment on above: Performed By: #### L [id number] #### [address] WBC (LEUKOCYTE) (#/HPF) IN URINE SEDIMENT 10-20 Abnormal None [facility] Comment on above: Performed By: #### L [id number] #### [facility] [address] [place] [address] [place] YEAST, (#/HPF) IN URINE 2+ /HPF Abnormal None [facility] Comment on above: Performed By: #### L [id number] #### [facility] [address] [place] [address] URINE CULTUREon 09-10-2022 Bacteria identified Cx Nom (U) CULTURE CLINLRR Status = F 5,000 col/ml SKIN MARY. NO FURTHER IDENTIFICATION & NO SENSITIVITY. Normal [facility] Comment on above: Performed By: #### L [id number] #### [facility] [address] [place] [address] VITAMIN B12 (COBALAMIN)on Cobalamin (Vitamin B12) [Mass/Vol] 867.0 pg/mL Normal >=300.0 [facility] Comment on above: Result Comment: >300 pg/mL = NORMAL RESULT: DEFICIENCY UNLIKELY 200-300 pg/mL = BORDERLINE RESULT: DEFICIENCY IS POSSIBLE <200 pg/mL = LOW: CONSISTENT WITH DEFICIENCY Performed By: #### L [id number] #### [facility] [address] [place] [address] VITAMIN D 25 HYDROXYon 09-10 VITAMIN D 25(OH), TOTAL 44.7 ng/mL Normal 30.0-100.0 [facility] Comment on above: Result Comment: Vitamin D Status: Deficient = Vitamin D 25(OH) Less than 20.0 ng/mL Insufficient = Vitamin D 25(OH) 20.0 to 29.9 ng/mL Sufficient: Vitamin D 25(OH) 30.0-100.0 ng/dL Upper Safety Limit: Vitamin D 25(OH) Greater than 100.0 ng/mL Performed By: #### L [id number] #### [facility] [address] [place] [id number] Vitamin B12on 09-10-2022 Cobalamin (Vitamin B12) [Mass/Vol] 867.0 pg/mL >=300.0 [facility] Comment on above: >300 pg/mL = NORMAL RESULT: DEFICIENCY UNLIKELY 200-300 pg/mL = BORDERLINE RESULT: DEFICIENCY IS POSSIBLE <200 pg/mL = LOW: CONSISTENT WITH DEFICIENCY 4PLEX Influenza Aon 09-09-20 4PLEX Influenza A FLUAV RNA Nph Ql PAT+non-probe: NEGATIVE: Influenza A viral RNA NOT detected. INTERP: NEGATIVE FLUBV RNA Nph Ql PAT+non-probe: NEGATIVE: INFLUENZA B viral RNA NOT detected. INTERP: NEGATIVE RSV RNA Nph Ql PAT+non-probe: NEGATIVE: Respiratory Syncitial Virus viral RNA NOT detected. INTERP: NEGATIVE SARS-CoV-2 RNA Resp Ql PAT+probe: NEGATIVE for SARS-CoV-2 (CoVID-19). A negative result does not preclude SARS-CoV-2 (CoVID-19) infection and should not be used as the sole basis for treatment or other patient management decisions. Negative results must be combined with clinical observations, patient history, and epidemiological information. A false negative result may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 5.2 mmol/L High 3.6-5.0 [facility] Serum or plasma protein day urement (mass/volume)Ordered By: ROSANNE VARELA on 09-09-2022 Protein [Mass/Vol] 6.4 g/dL 6.4-8.[address] [facility] Serum or plasma sodium measu rement (moles/volume)Ordered By: ROSANNE VARELA on 09-09-2022 Sodium [Moles/Vol] 137 mmol/L 136-[address] [facility] Serum or plasma unsaturated iron binding capacity measurement (mass/volume)Ordered By: CRISTIAN NYE on 09-09-2022 Iron binding capacity.unsaturated [Mass/Vol] 212 UG/DL 112-347 [facility] Serum or plasma urea nitroge n measurement (mass/volume)Ordered By: ROSANNE VARELA on 09-09-2022 Urea nitrogen [Mass/Vol] 57.1 mg/dL High 8.0-23.0 [facility] Serum total bilirubin measur ement (mass/volume)Ordered By: ROSANNE VARELA on 09-09-2022 Bilirubin [Mass/Vol] 0.2 mg/dL 0.2-1.2 [facility] Specific gravity Auto test s trip (U) [Rel density]Ordered By: ROSANNE VARELA on 09-09-2022 Specific gravity (U) [Rel density] 1.013 1.005-1.035 [facility] TSH ser/plasOrdered By: ERENDIRA VARELA on 09-09-2022 TSH Qn 2.8800 uIU/mL 0.270-4.200 [facility] Thyroid Stimulating Hormoneo n 09-09-2022 Thyroid Stimulating Hormone 2.8800 uIU/mL Normal 0.270-4.200 [facility] Comment on above: Performed By: #### T , ADP #### [facility] [address] [id number] , Adalberto Epperson M.D. FCAP, FASCP Toxicology screen, serumon 1 11-09-2021 Acetaminophen [Mass/Vol] 4 ug/mL 10 - 30 mcg/mL [facility] Comment on above: THERAPUTIC RANGE IS 10-30 mcg/mL. LEVELS GREATER THAN 150 mcg/mL AT 4 HOURS POST INGESTION ARE POTENTIALLY TOXIC. PLEASE REFER TO LISA NOMOGRAM FOR LEVELS AT 4 TO 24 HOURS POST INGESTION. Ethanol [Mass/Vol] mg/dL <=10.0 mg/dL [facility] Comment on above: SERUM ALCOHOL REFERENCE VALUES: Less than 10 mg/dL is Negative Greater than 300 mg/dL could be toxic FOR MEDICAL USE ONLY Interpretation and review of laboratory results Normal [facility] Salicylates [Mass/Vol] mg/dL <=29.9 mg/dL [facility] Comment on above: THERAPEUTIC RANGE = 4.0 TO 10.0 mg/dL RHEUMATOID ARTHRISTIC THERAPEUTIC RANGE = 15-30 mg/dL GREATER THAN 30 mg/dL COULD BE TOXIC Urinalysis Completeon 2021 Bacteria LM.HPF (Urine sed) [#/Area] Negative Normal Negative [facility] Comment on above: Performed By: #### U .2 #### [address] [id number] , Adalberto Epperson M.D. FCAP, FASCP Epithelial cells LM Ql (Urine sed) 0-2 Normal 0-2 [facility] Comment on above: Performed By: #### U .2 #### [facility] [address] [place] [id number] , Polina Pool, FASCP Is a Culture Indicated? CULTURE ORDERED Normal [facility] Comment on above: Result Comment: URIN E CULTURE HAS BEEN SET UP Performed By: #### U .2 #### [facility] [address] [place] [address] , Adalberto Epperson M.D. FCAP, FASCP Urine Casts 0-5 Normal 0-5 [facility] Comment on above: Performed By: #### U .2 #### [facility] [address] [place] [address] , Adalberto Epperson M.D. FCAP, FASCP Urine RBC 2-5 Abnormal 0-2 [facility] Comment on above: Performed By: #### U .2 #### [facility] [address] [place] [address] , Adalberto Epperson M.D. FCAP, FASCP Urine WBC INNUMERABLE Abnormal 0-5 [facility] Comment on above: Performed By: #### U .2 #### [address] [id number] , Adalberto Epperson M.D. FCAP, FASCP Epithelial cells LM Ql (Urine sed) 2-5 Abnormal 0-2 [facility] Comment on above: Performed By: #### U .2 #### [address] [id number] , Polina Pool, FASCP Is a Culture Indicated? CULTURE ORDERED Normal [facility] Comment on above: Result Comment: URIN E CULTURE HAS BEEN SET UP Performed By: #### U .2 #### [address] [id number] , Polina Pool, FASCP Urine Amorphous Crystal Present Abnormal Not Present [facility] Comment on above: Performed By: #### U .2 #### [address] [place] [address] , Polina PoolAP, FASCP Urine Bacteria 4+ Abnormal Negative [facility] Comment on above: Performed By: #### U .2 #### [address] [place] [address] , Polina Pool, FASCP Urine Casts 0-5 Normal 0-5 [facility] Comment on above: Performed By: #### U .2 #### [address] [place] [id number] , Adalberto J. Macatol, M.D. FCAP, FASCP Urine RBC 2-5 Abnormal 0-2 [facility] Comment on above: Performed By: #### U .2 #### [facility] [address], [place] [id number] , Adalberto Epperson M.D. FCAP, FASCP Urine WBC 2-5 Abnormal 0-5 [facility] Comment on above: Performed By: #### U .2 #### [facility] [address] [place] [address] , Adalberto Epperson M.D. FCAP, FASCP Urinalysis complete W Reflex Culture panel - UrineOrdered By: ROSANNE VARELA on 09-09-2022 Urinalysis complete W Reflex Culture panel (U) Culture ordered [facility] Comment on above: URINE CULTURE HAS BE EN SET UP Urinalysis complete panel (U )Ordered By: Renu Goddard on 09-09-2022 Bacteria LM.HPF (Urine sed) [#/Area] 1+ Abnormal None /HPF [facility] Bilirubin Ql (U) Negative Negative [facility] Clarity (U) Cloudy Clear [facility] Color (U) Yellow Yellow [facility] Epithelial cells.squamous LM.HPF (Urine sed) [#/Area] Occasional None /LPF [facility] Glucose Ql (U) 250 Abnormal Negative mg/dL [facility] Hemoglobin Ql (U) Moderate Abnormal Negative [facility] Hyaline casts Auto (Urine sed) [#/Area] 0-5 None /LPF [facility] Interpretation and review of laboratory results Abnormal [facility] Ketones (U) [Mass/Vol] Negative Negat rod mg/dL [facility] Leukocyte esterase Test strip Ql (U) Small Abnormal Negative [facility] Nitrite Auto test strip Ql (U) Negative Negative [facility] pH (U) 5.5 [pH] 4.5 - 8.0 [facility] Protein (U) [Mass/Vol] mg/dL Abnormal Negat rod mg/dL [facility] RBC LM.HPF (Urine sed) [#/Area] 20-40 Abnormal None /HPF [facility] Specific gravity (U) [Rel density] 1.018 [facility] Urobilinogen Ql (U) 0.2 mg/dL 0.2 - 1.0 [facility] WBC LM.HPF (Urine sed) [#/Area] 10-20 Abnormal None /HPF [facility] Yeast LM Ql (Urine sed) 2+ Abnormal None /HPF L [facility] Urine amorphous crystals det ection by computer assisted methodOrdered By: ROSANNE VARELA on 09-09-2022 Crystals.amorphous Computer assisted Ql (U) Present Abnormal Not Present [facility] Urine clarityOrdered By: RICK VARELA on 09-09-2022 Clarity (U) Clear [facility] Urine colorOrdered By: GABE VARELA on 09-09-2022 Color (U) Yellow [facility] Urine glucose measurement by automated test strip (mass/volume)Ordered By: ROSANNE VARELA on 09-09-2022 Glucose Auto test strip (U) [Mass/Vol] Negative NEGATIVE [facility] Urine hemoglobin measurement by automated test strip (mass/volume)Ordered By: ROSANNE VARELA on 09-09-2022 Hemoglobin Auto test strip (U) [Mass/Vol] Moderate High NEGATIVE [facility] Urine leukocyte esterase det ection by automated test stripOrdered By: ROSANNE VARELA on 09-09-2022 Leukocyte esterase Auto test strip Ql (U) Moderate High NEGATIVE [facility] Urine nitrite detection by a utomated test stripOrdered By: ROSANNE VARELA on 09-09-2022 Nitrite Auto test strip Ql (U) Negative NEGATIVE [facility] Urobilinogen Auto test strip (U) [Mass/Vol]Ordered By: ROSANNE VARELA on 09-09-2022 Urobilinogen Qn (U) 0.2 {Génesis'U}/dL 0-1.0 [facility] pH Auto test strip (U)Ordere d By: ROSANNE VARELA on 09-09-2022 pH (U) 6.0 [pH] 5.0-8.5 [facility] PATIENT INSTRUCTIONSon 08-27 Program Coordinator [employer] Authentication Interface Message Text - prescription for prosthesis and office note will be faxed to [employer] - return to see me as needed for prosthetic, therapy, or equipment needs Normal Provider Locations PROGRESS NOTESon 08-27-2022 Program Coordinator [employer] Authentication Interface Message Text ESTABLISHED PATIENT PROSTHETICS VISIT 08/27/2022 TELEHEALTH Mikayla Pappas : 1960 ASSESSMENT Encounter Diagnoses Name Primary? ? S/P below knee amputation, right (HC CODE) Yes Discussion To review, Mikayla Pappas is a 62 year old male referred for evaluation of prosthetic needs. 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 Mikayla Pappas demonstrates an ability and willingness to ambulate at a K1 level. His current activities include requiring assistance with most ADLs but able to tolerate ome standing in the parallel bars, and he is highly motivated to be independent of ADLs, ambulate on his own, and move back home, which he did prior to his amputation. He has the ability to transfer and ambulate at a fixed stacie on level surfaces. Mikayla Pappas is in need of a socket replacement at this time. He has had a significant weight gain; his socket is too small and he can no longer wear this. No modifications can be made for this to fit functionally and be safe. Without a replacement socket, he will be at increased risk of further deconditioning and reduced functional independence and mobility. ? Prosthetic components include the following: - ultralight materials (L5940) - medically necessary to minimize energy expenditure while maintaining a strong and structurally sound prosthetic socket. This will allow Mikayla to walk longer distances and wear his prosthesis for longer duration. This will help reduce the burden on walking. This is particularly important given deconditioning following amputation, his history of diabetes with neuropathy, and heel tightness of his contralateral limb. - A flexible inner socket with external frame (L5645) is necessary to accommodate limb volume fluctuations, to relieve soft tissue bunching posteriorly when the patient's knee is flexed, and provide lower rigid trimlines while maintaining comfort and structural safety. The flexible inner socket adds to the adjustability of the socket by maintaining total contact with the limb when modifications are necessary. - custom molded distal end pad (L5668) - recommended to provide extra cushion and protection to his distal tibia. This will allow for additional relief to be added to this area if he experiences negative volume fluctuations in the future. - a locking mechanism (L5671) is necessary for suspension. A pull cord lock release will allow for ease of doffing independently given Mikayla has limited hand strength on the right side. This is intuitive for users and reduces the overall bulk of the prosthesis. He will also hear audile clicks as the pin engages the locking mechanism. Recommend an endoskeletal definitive replacement socket with a hybrid PTB/PTSB socket design, flexible inner, distal end cushion/pad, lock and pin suspension with a pull cord release mechanism, Bulldog lock, and locking liners. His existing componentry and foot will be re-utilized as they are n good condition and clinically appropriate at his time. - he is extremely motivated to progress with prosthetic fabrication with a goal of maximizing functional activities PLAN Coordination of Care ? Diagnostic and treatment records were reviewed regarding physician hospital notes, physician office notes ? Prescription written for prosthesis as described above. Patient Instructions - prescription for prosthesis and office note will be faxed to [employer] - return to see me as needed for prosthetic, therapy, or equipment needs Counseling ? Treatment options were discussed with the patient. ? All of the patient's questions concerning their medical condition and treatment were answered. ? Counseling and/or coordination of care dominated more than 50 percent of this physician/patient and/or family encounter, for a total time of > 20 minutes for an established patient. Follow up ? The patient was instructed to return to the office as needed. No follow up appointment is currently scheduled. Accompanied for the interview and examination by prosthetic liaabdiaziz Rain. Electronically signed by: Caorl Sanon MD, 08/27/2022 10:21 AM H and H MD Carol Mendez MD [address], [address], [place] [address] [address] [facility], [place] [address] SUBJECTIVE Reason for Visit Chief Complaint Patient presents with ? Follow-up S/p R BKA History of Present Illness Mikayla Pappas is a 62 year old male referred by [facility] for prosthetics evaluation. He was seen today utilizing telehealth (more content not included)... Normal Provider Locations Glucose baseline (BldC) [Mas s/Vol]on 06-29-2022 Glucose [Mass/Vol] 161 mg/dL High 74 - 118 [facility] Interpretation and review of laboratory results Abnormal [facility] Glucose [Mass/Vol] 119 mg/dL High 74 - 118 [facility] Interpretation and review of laboratory results Abnormal [facility] Glucose [Mass/Vol] 104 mg/dL 74 - 118 [facility] Interpretation and review of laboratory results Normal [facility] COVID PANEL (BIOFIRE)on 06-29-2022 [facility] Negative Normal Negative [facility] Comment on above: Order Comment: A neg ative FilmArray panel does not exclude the possibility of viral or bacterial infection. Negative results should not be used as the sole basis for diagnosis, treatment, or other mangement decisions. Performed By: #### L AB15 #### [facility] [address] [place] [address] [place] BORDETELLA PARAPERTUSSIS Negative Normal Negative [facility] Comment on above: Order Comment: A neg ative FilmArray panel does not exclude the possibility of viral or bacterial infection. Negative results should not be used as the sole basis for diagnosis, treatment, or other mangement decisions. Performed By: #### L AB15 #### [facility] [address] [place] [address] [place] BORDETELLA PERTUSSIS Negative Normal Negative [facility] Comment on above: Order Comment: A neg ative FilmArray panel does not exclude the possibility of viral or bacterial infection. Negative results should not be used as the sole basis for diagnosis, treatment, or other mangement decisions. Performed By: #### L AB15 #### [facility] [address] [place] [address] [place] CHLAMYDIA PNEUMONIAE Negative Normal Negative [facility] Comment on above: Order Comment: A neg ative FilmArray panel does not exclude the possibility of viral or bacterial infection. Negative results should not be used as the sole basis for diagnosis, treatment, or other mangement decisions. Performed By: #### L AB15 #### [facility] [address] [place] [address] [place] CORONAVIRUS [id number] Negative Normal Negative [facility] Comment on above: Order Comment: A neg ative FilmArray panel does not exclude the possibility of viral or bacterial infection. Negative results should not be used as the sole basis for diagnosis, treatment, or other mangement decisions. Performed By: #### L AB15 #### [facility] [address] [place] [address] [place] CORONAVIRUS HKU1 Negative Normal Negative [facility] Comment on above: Order Comment: A neg ative FilmArray panel does not exclude the possibility of viral or bacterial infection. Negative results should not be used as the sole basis for diagnosis, treatment, or other mangement decisions. Performed By: #### L AB15 #### [facility] [address] [place] [address] [place] CORONAVIRUS [id number] Not detected Normal Not Detected [facility] Comment on above: Order Comment: A neg ative FilmArray panel does not exclude the possibility of viral or bacterial infection. Negative results should not be used as the sole basis for diagnosis, treatment, or other mangement decisions. Performed By: #### L AB15 #### [facility] [address] [place] [address] [place] CORONAVIRUS OC43 Negative Normal Negative [facility] Comment on above: Order Comment: A neg ative FilmArray panel does not exclude the possibility of viral or bacterial infection. Negative results should not be used as the sole basis for diagnosis, treatment, or other mangement decisions. Performed By: #### L AB15 #### [facility] [address] [place] [id number] [place] HUMAN METAPNEUMOVIRUS Negative Normal Negative [facility] Comment on above: Order Comment: A neg ative FilmArray panel does not exclude the possibility of viral or bacterial infection. Negative results should not be used as the sole basis for diagnosis, treatment, or other mangement decisions. Performed By: #### L AB15 #### [facility] [address] [place] [address] INFLUENZA A/H1 Negative Normal Negative [facility] Comment on above: Order Comment: A neg ative FilmArray panel does not exclude the possibility of viral or bacterial infection. Negative results should not be used as the sole basis for diagnosis, treatment, or other mangement decisions. Performed By: #### L AB15 #### [facility] [address] [place] [address] INFLUENZA A/H1-2009 Negative Normal Negative [facility] Comment on above: Order Comment: A neg ative FilmArray panel does not exclude the possibility of viral or bacterial infection. Negative results should not be used as the sole basis for diagnosis, treatment, or other mangement decisions. Performed By: #### L AB15 #### [facility] [address] [place] [address] INFLUENZA A/H3 Negative Normal Negative [facility] Comment on above: Order Comment: A neg ative FilmArray panel does not exclude the possibility of viral or bacterial infection. Negative results should not be used as the sole basis for diagnosis, treatment, or other mangement decisions. Performed By: #### L AB15 #### [facility] [address] [place] [address] INFLUENZA B Negative Normal Negative [facility] Comment on above: Order Comment: A neg ative FilmArray panel does not exclude the possibility of viral or bacterial infection. Negative results should not be used as the sole basis for diagnosis, treatment, or other mangement decisions. Performed By: #### L AB15 #### [facility] [address] [place] [address] MYCOPLASMA PNEUMONIAE Negative Normal [facility] Comment on above: Order Comment: A neg ative FilmArray panel does not exclude the possibility of viral or bacterial infection. Negative results should not be used as the sole basis for diagnosis, treatment, or other mangement decisions. Performed By: #### L AB15 #### [facility] [address] [place] [address] PARAINFLUENZA VIRUS 1 Negative Normal Negative [facility] Comment on above: Order Comment: A neg ative FilmArray panel does not exclude the possibility of viral or bacterial infection. Negative results should not be used as the sole basis for diagnosis, treatment, or other mangement decisions. Performed By: #### L AB15 #### [facility] [address] [place] [id number] [place] PARAINFLUENZA VIRUS 2 Negative Normal Negative [facility] Comment on above: Order Comment: A neg ative FilmArray panel does not exclude the possibility of viral or bacterial infection. Negative results should not be used as the sole basis for diagnosis, treatment, or other mangement decisions. Performed By: #### L AB15 #### [facility] [address] [place] [address] [place] PARAINFLUENZA VIRUS 3 Negative Normal Negative [facility] Comment on above: Order Comment: A neg ative FilmArray panel does not exclude the possibility of viral or bacterial infection. Negative results should not be used as the sole basis for diagnosis, treatment, or other mangement decisions. Performed By: #### L AB15 #### [facility] [address] [place] [id number] [place] PARAINFLUENZA VIRUS 4 Negative Normal Negative [facility] Comment on above: Order Comment: A neg ative FilmArray panel does not exclude the possibility of viral or bacterial infection. Negative results should not be used as the sole basis for diagnosis, treatment, or other mangement decisions. Performed By: #### L AB15 #### [facility] [address] [place] [address] [place] RESPIRATORY SYNCYTIAL VIRUS Negative Normal Negative or Not Detected [facility] Comment on above: Order Comment: A neg ative FilmArray panel does not exclude the possibility of viral or bacterial infection. Negative results should not be used as the sole basis for diagnosis, treatment, or other mangement decisions. Performed By: #### L AB15 #### [facility] [address] [place] [address] [place] RHINO/ENTEROVIRUS Negative Normal Negative [facility] Comment on above: Order Comment: A neg ative FilmArray panel does not exclude the possibility of viral or bacterial infection. Negative results should not be used as the sole basis for diagnosis, treatment, or other mangement decisions. Performed By: #### L [id number] #### [facility] [address] [place] [address] SEVERE ACUTE RESPIRATORY SYNDROME COV-2 Negative Normal Negative [facility] Comment on above: Order Comment: A neg ative FilmArray panel does not exclude the possibility of viral or bacterial infection. Negative results should not be used as the sole basis for diagnosis, treatment, or other mangement decisions. Result Comment: This test is performed using RT-PCR for the detection of Severe Acute Respiratory Syndrome Coronavirus 2 (SARS-CoV-2) in the Healint Respiratory Panel 2.1 assay and analyzed using the [employer] FilmArray Torch. Performed By: #### L [id number] #### [facility] [address] [place] [address] POCT GLUCOSE METERon 022 Glucose [Mass/Vol] 161 mg/dL High 74-118 [facility] Comment on above: Result Comment: ACCE PT RESULTS Performed By: #### L [id number] #### [facility] [address] [place] [address] [place] Glucose [Mass/Vol] 119 mg/dL High 74-118 [facility] Comment on above: Result Comment: ACCE PT RESULTS Performed By: #### L [id number] #### [facility] [address] [place] [address] [place] Glucose [Mass/Vol] 104 mg/dL Normal 74-[address] [place] [address] Comment on above: Performed By: #### L [id number] #### [facility] [address] [place] [address] Respiratory pathogens DNA an d RNA panel PAT+non-probe (Nph)Ordered By: Renaldo Wong on 06-29-2022 Adenovirus Negative Negative [facility] B. pertussis toxin promoter region PAT+probe Ql (Nph) Negative Negative [facility] Bordetella Parapertussis Negative Negative [facility] C. pneumoniae DNA PAT+probe Ql (Resp) Negative Negative [facility] FLUBV RNA PAT+probe Ql (Unsp spec) Negative Negative [facility] HCoV 229E RNA PAT+probe Ql (Unsp spec) Negative Negative [facility] HCoV HKU1 RNA PAT+probe Ql (Unsp spec) Negative Negative [facility] HCoV NL63 RNA PAT+probe Ql (Unsp spec) Not detected Not Detected [facility] HCoV OC43 RNA PAT+probe Ql (Unsp spec) Negative Negative [facility] Human Metapneumovirus Negative Negative [facility] Influenza A/H1 Negative Negative [facility] Influenza A/H1-2009 Negative Negative [facility] Influenza A/H3 Negative Negative [facility] Mycoplasma pneumo Negative [facility] Parainfluenza virus 1 RNA PAT+probe Ql (Unsp spec) Negative Negative [facility] Parainfluenza virus 2 RNA PAT+probe Ql (Unsp spec) Negative Negative [facility] Parainfluenza virus 3 RNA PAT+probe Ql (Unsp spec) Negative Negative [facility] Parainfluenza Virus 4 Negative Negative [facility] Rhinovirus+Enterovirus RNA PAT+probe Ql (Upper resp) Negative Negative [facility] RSV RNA PAT+probe Ql (Resp) Negative Negative or Not Detected [facility] SARS-CoV-2 (COVID-19) RNA PAT+non-probe Ql (Nph) Negative Negative [facility] Glucose baseline (BldC) [Mas s/Vol]on 06-28-2022 Glucose [Mass/Vol] 191 mg/dL High 74 - 118 [facility] Interpretation and review of laboratory results Abnormal [facility] Glucose [Mass/Vol] 113 mg/dL 74 - 118 [facility] Interpretation and review of laboratory results Normal [facility] Glucose [Mass/Vol] 157 mg/dL High 74 - 118 [facility] Interpretation and review of laboratory results Abnormal [facility] Glucose [Mass/Vol] 147 mg/dL High 74 - 118 [facility] Interpretation and review of laboratory results Abnormal [facility] POCT GLUCOSE METERon 022 Glucose [Mass/Vol] 191 mg/dL High 74-118 [facility] Comment on above: Result Comment: ACCE PT RESULTS Performed By: #### L [id number] #### [facility] [address] [place] [address] [place] Glucose [Mass/Vol] 113 mg/dL Normal 74-118 [facility] Comment on above: Result Comment: ACCE PT RESULTS Performed By: #### L [id number] #### [facility] [address] [place] [address] [place] Glucose [Mass/Vol] 157 mg/dL High 74-118 [facility] Comment on above: Result Comment: ACCE PT RESULTS Performed By: #### L [id number] #### [facility] [address] [place] [address] [place] Glucose [Mass/Vol] 147 mg/dL High 74-118 [facility] Comment on above: Result Comment: ACCE PT RESULTS Performed By: #### L [id number] #### [facility] [address] [place], [place] [id number] [place] Glucose baseline (BldC) [Mas s/Vol]on 06-27-2022 Glucose [Mass/Vol] 152 mg/dL High 74 - 118 [facility] Interpretation and review of laboratory results Abnormal [facility] Glucose [Mass/Vol] 157 mg/dL High 74 - 118 [facility] Interpretation and review of laboratory results Abnormal [facility] Glucose [Mass/Vol] 148 mg/dL High 74 - 118 [facility] Interpretation and review of laboratory results Abnormal [facility] Glucose [Mass/Vol] 156 mg/dL High 74 - 118 [facility] Interpretation and review of laboratory results Abnormal [facility] POCT GLUCOSE METERon 022 Glucose [Mass/Vol] 152 mg/dL High 74-118 [facility] Comment on above: Result Comment: ACCE PT RESULTS Performed By: #### L [id number] #### [facility] [address] [place] [address] [place] Glucose [Mass/Vol] 157 mg/dL High 74-118 [facility] Comment on above: Result Comment: ACCE PT RESULTS Performed By: #### L [id number] #### [facility] [place] [address] [place] Glucose [Mass/Vol] 148 mg/dL High 74-118 [facility] Comment on above: Result Comment: ACCE PT RESULTS Performed By: #### L [id number] #### [facility] [address] [place] [address] [place] Glucose [Mass/Vol] 156 mg/dL High 74-118 [facility] Comment on above: Result Comment: ACCE PT RESULTS Performed By: #### L [id number] #### [facility] [address] [place] [address] [place] Glucose baseline (BldC) [Mas s/Vol]on 06-26-2022 Glucose [Mass/Vol] 125 mg/dL High 74 - 118 [facility] Interpretation and review of laboratory results Abnormal [facility] Glucose [Mass/Vol] 162 mg/dL High 74 - 118 [facility] Interpretation and review of laboratory results Abnormal [facility] Glucose [Mass/Vol] 188 mg/dL High 74 - 118 [facility] Interpretation and review of laboratory results Abnormal [facility] Glucose [Mass/Vol] 114 mg/dL 74 - 118 [facility] Interpretation and review of laboratory results Normal [facility] POCT GLUCOSE METERon 022 Glucose [Mass/Vol] 125 mg/dL High 74-118 [facility] Comment on above: Result Comment: ACCE PT RESULTS Performed By: #### L [id number] #### [facility] [address] [place] [address] [place] Glucose [Mass/Vol] 162 mg/dL High 74-118 [facility] Comment on above: Result Comment: ACCE PT RESULTS Performed By: #### L [id number] #### [facility] [address] [place] [address] [place] Glucose [Mass/Vol] 188 mg/dL High 74-118 [facility] Comment on above: Result Comment: ACCE PT RESULTS Performed By: #### L [id number] #### [facility] [address] [place] [address] [place] Glucose [Mass/Vol] 114 mg/dL Normal 74-118 [facility] Comment on above: Result Comment: ACCE PT RESULTS Performed By: #### L [id number] #### [facility] [place] [address] [place] Glucose baseline (BldC) [Mas s/Vol]on 06-25-2022 Glucose [Mass/Vol] 122 mg/dL High 74 - 118 [facility] Interpretation and review of laboratory results Abnormal [facility] Glucose [Mass/Vol] 163 mg/dL High 74 - 118 [facility] Interpretation and review of laboratory results Abnormal [facility] Glucose [Mass/Vol] 125 mg/dL High 74 - 118 [facility] Interpretation and review of laboratory results Abnormal [facility] Glucose [Mass/Vol] 114 mg/dL 74 - 118 [facility] Interpretation and review of laboratory results Normal [facility] Glucose [Mass/Vol] 110 mg/dL 74 - 118 [facility] Interpretation and review of laboratory results Normal [facility] POCT GLUCOSE METERon 022 Glucose [Mass/Vol] 122 mg/dL High 74-118 [facility] Comment on above: Result Comment: ACCE PT RESULTS Performed By: #### L [id number] #### [facility] [address] [place] [address] [place] Glucose [Mass/Vol] 163 mg/dL High 74-118 [facility] Comment on above: Result Comment: ACCE PT RESULTS Performed By: #### L [id number] #### [facility] [address] [place] [address] [place] Glucose [Mass/Vol] 125 mg/dL High 74-118 [facility] Comment on above: Result Comment: ACCE PT RESULTS Performed By: #### L [id number] #### [facility] [place] [address] [place] Glucose [Mass/Vol] 114 mg/dL Normal 74-118 [facility] Comment on above: Result Comment: ACCE PT RESULTS Performed By: #### L [id number] #### [facility] [address] [place] [address] [place] Glucose [Mass/Vol] 110 mg/dL Normal 74-118 [facility] Comment on above: Result Comment: ACCE PT RESULTS Performed By: #### L [id number] #### [facility] [address] [place] [address] [place] Glucose [Mass/Vol] 194 mg/dL High 74-118 [facility] Comment on above: Result Comment: ACCE PT RESULTS Performed By: #### L [id number] #### [facility] [address] [place] [address] [place] Glucose baseline (BldC) [Mas s/Vol]on 06-24-2022 Glucose [Mass/Vol] 194 mg/dL High 74 - 118 [facility] Interpretation and review of laboratory results Abnormal [facility] Glucose [Mass/Vol] 143 mg/dL High 74 - 118 [facility] Interpretation and review of laboratory results Abnormal [facility] Glucose [Mass/Vol] 160 mg/dL High 74 - 118 [facility] Interpretation and review of laboratory results Abnormal [facility] Glucose [Mass/Vol] 113 mg/dL 74 - 118 [facility] Interpretation and review of laboratory results Normal [facility] POCT GLUCOSE METERon 022 Glucose [Mass/Vol] 143 mg/dL High 74-118 [facility] Comment on above: Result Comment: ACCE PT RESULTS Performed By: #### L [id number] #### [facility] [address] [place] [address] [place] Glucose [Mass/Vol] 160 mg/dL High 74-118 [facility] Comment on above: Result Comment: ACCE PT RESULTS Performed By: #### L [id number] #### [facility] [address] [place] [address] [place] Glucose [Mass/Vol] 113 mg/dL Normal 74-118 [facility] Comment on above: Result Comment: ACCE PT RESULTS Performed By: #### L [id number] #### [facility] [address] [place] [address] [place] Glucose baseline (BldC) [Mas s/Vol]on 06-23-2022 Glucose [Mass/Vol] 219 mg/dL High 74 - 118 [facility] Interpretation and review of laboratory results Abnormal [facility] Glucose [Mass/Vol] 151 mg/dL High 74 - 118 [facility] Interpretation and review of laboratory results Abnormal [facility] Glucose [Mass/Vol] 165 mg/dL High 74 - 118 [facility] Interpretation and review of laboratory results Abnormal [facility] Glucose [Mass/Vol] 98 mg/dL 74 - 118 [facility] Interpretation and review of laboratory results Normal [facility] POCT GLUCOSE METERon 022 Glucose [Mass/Vol] 219 mg/dL High 74-118 [facility] Comment on above: Result Comment: ACCE PT RESULTS Performed By: #### L [id number] #### [facility] [address] [place] [address] [place] Glucose [Mass/Vol] 151 mg/dL High 74-118 [facility] Comment on above: Result Comment: ACCE PT RESULTS Performed By: #### L [id number] #### [facility] [address] [place] [address] [place] Glucose [Mass/Vol] 165 mg/dL High 74-118 [facility] Comment on above: Result Comment: ACCE PT RESULTS Performed By: #### L [id number] #### [facility] [address] [place] [address] [place] Glucose [Mass/Vol] 98 mg/dL Normal 74-118 [facility] Comment on above: Result Comment: ACCE PT RESULTS Performed By: #### L [id number] #### [facility] [address] [place] [address] [place] Glucose [Mass/Vol] 154 mg/dL High 74-118 [facility] Comment on above: Result Comment: ACCE PT RESULTS Performed By: #### L [id number] #### [facility] [address] [place] [address] [place] Glucose baseline (BldC) [Mas s/Vol]on 06-22-2022 Glucose [Mass/Vol] 154 mg/dL High 74 - 118 [facility] Interpretation and review of laboratory results Abnormal [facility] Glucose [Mass/Vol] 177 mg/dL High 74 - 118 [facility] Interpretation and review of laboratory results Abnormal [facility] Glucose [Mass/Vol] 161 mg/dL High 74 - 118 [facility] Interpretation and review of laboratory results Abnormal [facility] Glucose [Mass/Vol] 137 mg/dL High 74 - 118 [facility] Interpretation and review of laboratory results Abnormal [facility] POCT GLUCOSE METERon 022 Glucose [Mass/Vol] 177 mg/dL High 74-118 [facility] Comment on above: Result Comment: ACCE PT RESULTS Performed By: #### L [id number] #### [facility] [address] Glucose [Mass/Vol] 161 mg/dL High 74-118 [facility] Comment on above: Result Comment: ACCE PT RESULTS Performed By: #### L [id number] #### [facility] [address] [place] [address] Glucose [Mass/Vol] 137 mg/dL High 74-118 [facility] Comment on above: Result Comment: ACCE PT RESULTS Performed By: #### L [id number] #### [facility] [address] [place] [address] Glucose baseline (BldC) [Mas s/Vol]on 06-21-2022 Glucose [Mass/Vol] 132 mg/dL High 74 - 118 [facility] Interpretation and review of laboratory results Abnormal [facility] Glucose [Mass/Vol] 222 mg/dL High 74 - 118 [facility] Interpretation and review of laboratory results Abnormal [facility] Glucose [Mass/Vol] 133 mg/dL High 74 - 118 [facility] Interpretation and review of laboratory results Abnormal [facility] Glucose [Mass/Vol] 98 mg/dL 74 - 118 [facility] Interpretation and review of laboratory results Normal [facility] POCT GLUCOSE METERon 022 Glucose [Mass/Vol] 132 mg/dL High 74-118 [facility] Comment on above: Result Comment: ACCE PT RESULTS Performed By: #### L [id number] #### [facility] [address] [place] [address] [place] Glucose [Mass/Vol] 222 mg/dL High 74-118 [facility] Comment on above: Result Comment: ACCE PT RESULTS Performed By: #### L [id number] #### [facility] [address] [place] [address] [place] Glucose [Mass/Vol] 133 mg/dL High 74-118 [facility] Comment on above: Result Comment: ACCE PT RESULTS Performed By: #### L [id number] #### [facility] [address] [place] [address] [place] Glucose [Mass/Vol] 98 mg/dL Normal 74-118 [facility] Comment on above: Result Comment: ACCE PT RESULTS Performed By: #### L [id number] #### [facility] [address] [place] [address] [place] Glucose [Mass/Vol] 173 mg/dL High 74-118 [facility] Comment on above: Result Comment: ACCE PT RESULTS Performed By: #### L [id number] #### [facility] [address] [place] [address] [place] Glucose baseline (BldC) [Mas s/Vol]on 06-20-2022 Glucose [Mass/Vol] 173 mg/dL High 74 - 118 [facility] Interpretation and review of laboratory results Abnormal [facility] Glucose [Mass/Vol] 179 mg/dL High 74 - 118 [facility] Interpretation and review of laboratory results Abnormal [facility] Glucose [Mass/Vol] 154 mg/dL High 74 - 118 [facility] Interpretation and review of laboratory results Abnormal [facility] Glucose [Mass/Vol] 121 mg/dL High 74 - 118 [facility] Interpretation and review of laboratory results Abnormal [facility] POCT GLUCOSE METERon 022 Glucose [Mass/Vol] 179 mg/dL High 74-118 [facility] Comment on above: Result Comment: ACCE PT RESULTS Performed By: #### L [id number] #### [facility] [address] [place] [address] [place] Glucose [Mass/Vol] 154 mg/dL High 74-118 [facility] Comment on above: Result Comment: ACCE PT RESULTS Performed By: #### L [id number] #### [facility] [address] [place] [address] [place] Glucose [Mass/Vol] 121 mg/dL High 74-118 [facility] Comment on above: Result Comment: ACCE PT RESULTS Performed By: #### L [id number] #### [facility] [address] [place] [address] S. pyogenes Ag IA.rapid Ql ( Throat)Ordered By: Micaela Rand on 06-20-2022 Bacteria identified Cx Nom (Unsp spec) 4+ Normal microbiota [facility] Glucose baseline (BldC) [Mas s/Vol]on 06-19-2022 Glucose [Mass/Vol] 185 mg/dL High 74 - 118 [facility] Interpretation and review of laboratory results Abnormal [facility] Glucose [Mass/Vol] 164 mg/dL High 74 - 118 [facility] Interpretation and review of laboratory results Abnormal [facility] Glucose [Mass/Vol] 140 mg/dL High 74 - 118 [facility] Interpretation and review of laboratory results Abnormal [facility] Glucose [Mass/Vol] 86 mg/dL 74 - 118 [facility] Interpretation and review of laboratory results Normal [facility] POCT GLUCOSE METERon 022 Glucose [Mass/Vol] 185 mg/dL High 74-118 [facility] Comment on above: Result Comment: ACCE PT RESULTS Performed By: #### L [id number] #### [facility] [address] [place] [address] [place] Glucose [Mass/Vol] 164 mg/dL High 74-118 [facility] Comment on above: Result Comment: ACCE PT RESULTS Performed By: #### L [id number] #### [facility] [address] [place] [address] [facility] Glucose [Mass/Vol] 140 mg/dL High 74-118 [facility] Comment on above: Result Comment: ACCE PT RESULTS Performed By: #### L [id number] #### [facility] [address] [place] [address] [facility] Glucose [Mass/Vol] 86 mg/dL Normal 74-118 [facility] Comment on above: Result Comment: ACCE PT RESULTS Performed By: #### L [id number] #### [facility] [address] [place] [address] BASIC METABOLIC PANELon 06-04 ANION GAP IN SER/PLAS 9.4 unit/s Normal 8.0-22.0 [facility] Comment on above: Performed By: #### L [id number] #### [facility] [address] [place] [address] [place] Calcium [Mass/Vol] 9.2 mg/dL Normal 8.7-10.4 [facility] Comment on above: Performed By: #### L [id number] #### [facility] [address] [place] [address] [place] Chloride [Moles/Vol] 110 mmol/L High 99-109 [facility] Comment on above: Performed By: #### L [id number] #### [facility] [address] [place] [address] [place] CO2 [Moles/Vol] 27 mmol/L Normal 20-31 [facility] Comment on above: Performed By: #### L [id number] #### [facility] [address] [place] [address] [place] Creatinine [Mass/Vol] 1.5 mg/dL High 0.7-1.3 [facility] Comment on above: Performed By: #### L [id number] #### [facility] [address] [place] [address] [place] GLOMERULAR FILTRATION RATE ML/MIN/1.73 SQ M.PREDICTED 53.0 mL/min/1.73m*2 Normal [facility] Comment on above: Result Comment: CALCULATION BASED ON THE CHRONIC KIDNEY DISEASE EPIDEMIOLOGY COLLABORATION (CKD-EPI) EQUATION REFIT WITHOUT ADJUSTMENT FOR RACE. GFR LESS THAN 60 mL/min/1.73m2: SUGGESTIVE OF CHRONIC KIDNEY DISEASE. GFR LESS THAN 15 mL/min/1.73m2: SUGGESTIVE OF END STAGE RENAL DISEASE. Performed By: #### L [id number] #### [address] [address] [facility] Glucose [Mass/Vol] 87 mg/dL Normal 74-106 [facility] Comment on above: Result Comment: NOTE IF THIS IS A FASTING SPECIMEN THE FOLLOWING RANGES APPLY: NORMAL 70 TO 99 mg/dL PREDIABETIC 100 TO 125 mg/dL DIABETIC >= 126 mg/dL Performed By: #### L [id number] #### [address] [address] [place] OSMOLALITY (MOSM/KG) OF SER/PLAS BY CALCULATION 293 mosm/kg Normal 275-305 [facility] Comment on above: Performed By: #### L [id number] #### [facility] [address] [place] [address] [place] Potassium [Moles/Vol] 4.4 mmol/L Normal 3.6-5.1 [facility] Comment on above: Performed By: #### L AB15 #### [facility] [place] [address] [place] Sodium [Moles/Vol] 142 mmol/L Normal 132-146 [facility] Comment on above: Performed By: #### L [id number] #### [facility] [address] Urea nitrogen [Mass/Vol] 41 mg/dL High 9-23 [facility] Comment on above: Performed By: #### L [id number] #### [facility] [address] [place] [address] [place] UREA NITROGEN/CREATININE (MASS RATIO) IN SER/PLAS 27.3 unit/s High 6.0-20.0 [facility] Comment on above: Performed By: #### L [id number] #### [facility] [address] Basic metabolic 1998 panelon 06-18-2022 Anion gap [Moles/Vol] 9.4 mmol/L [facility] Calcium [Mass/Vol] 9.2 mg/dL 8.7 - 10. 4 mg/dL [facility] Chloride [Moles/Vol] 110 mmol/L High 99 - 10 9 mmol/L [facility] CO2 [Moles/Vol] 27 mmol/L 20 - 31 mmol/L [facility] Creatinine [Mass/Vol] 1.5 mg/dL High 0.7 - 1.3 mg/dL [facility] GFR/1.73 sq M.predicted MDRD (S/P/Bld) [Vol rate/Area] 53.0 mL/min/{1.73_m2} mL/min/1.73m *2 [facility] Glucose [Mass/Vol] 87 mg/dL 74 - 106 mg/dL [facility] Interpretation and review of laboratory results Abnormal [facility] Osmolality Calc [Osmolality] 293 mosm/kg 275 - 305 mosm/kg [facility] Potassium [Moles/Vol] 4.4 mmol/L 3.6 - 5.1 mmol/L [facility] Sodium [Moles/Vol] 142 mmol/L 132 - 146 mmol/L [facility] Urea nitrogen [Mass/Vol] 41 mg/dL High 9 - 23 mg/dL [facility] Urea nitrogen/Creatinine [Mass ratio] 27.3 mg/mg High [facility] CBCon 06-18-2022 Erythrocyte distribution width (RBC) [Ratio] 14.4 % Normal 11.5-14.5 [facility] Comment on above: Performed By: #### L [id number] #### [facility] [address] [place] [address] ERYTHROCYTE MEAN CORPUSCULAR HEMOGLOBIN CONCENTRATION (G/DL) BY AUTOMATED 34.8 g/dL Normal 31.0-37.0 [facility] Comment on above: Performed By: #### L [id number] #### [facility] [address] [place] [address] Hematocrit (Bld) [Volume fraction] 24.9 % Low 41.0-53.0 [facility] Comment on above: Performed By: #### L [id number] #### [facility] [address] [place] [address] Hemoglobin (Bld) [Mass/Vol] 8.7 g/dL Low 13.5-17.5 [facility] Comment on above: Performed By: #### L [id number] #### [facility] [address] [place] [address] MCH (RBC) [Entitic mass] 30.0 pg Normal 26.0-34.0 [facility] Comment on above: Performed By: #### L [id number] #### [facility] [address] [place] [address] MCV (RBC) [Entitic vol] 86.3 fL Normal 80.0-100.0 [facility] Comment on above: Performed By: #### L [id number] #### [facility] [address] [place] [address] [place] Platelet mean volume (Bld) [Entitic vol] 7.0 fL Low 7.4-10.4 [facility] Comment on above: Performed By: #### L [id number] #### [facility] [address] [place], [place] [id number] [place] PLATELETS (10*3/UL) IN BLOOD AUTOMATED COUNT 203 10*3/uL Normal 140-440 [facility] Comment on above: Performed By: #### L [id number] #### [facility] [address] RBC (Bld) [#/Vol] 2.89 10*6/uL Low 4.50-5.90 [facility] Comment on above: Performed By: #### L [id number] #### [facility] [address] [place] [address] WBC (Bld) [#/Vol] 7.6 10*3/uL Normal 4.0-11.0 [facility] Comment on above: Performed By: #### L [id number] #### [facility] [address] [place] [address] CBC panel Auto (Bld)on 06-18 Erythrocyte distribution width (RBC) [Ratio] 14.4 % 11.5 - 14.5 % [facility] Hematocrit (Bld) [Volume fraction] 24.9 % Low 41.0 - 53.0 % [facility] Hemoglobin (Bld) [Mass/Vol] 8.7 g/dL Low 13.5 - 17.5 g/dL [facility] Interpretation and review of laboratory results Abnormal [facility] MCH (RBC) [Entitic mass] 30.0 pg 26.0 - 34.0 pg [facility] MCHC (RBC) [Mass/Vol] 34.8 g/dL 31.0 - 37.0 g/dL [facility] MCV (RBC) [Entitic vol] 86.3 fL 80.0 - 100.0 fL [facility] Platelet mean volume (Bld) [Entitic vol] 7.0 fL Low 7.4 - 10.4 fL [facility] Platelets (Bld) [#/Vol] 203 10*3/uL 140 - 440 10*3/uL [facility] RBC (Bld) [#/Vol] 2.89 10*6/uL Low 4.50 - 5.9 0 10*6/uL [facility] WBC (Bld) [#/Vol] 7.6 10*3/uL 4.0 - 11.0 10*3/uL [facility] Glucose baseline (BldC) [Mas s/Vol]on 06-18-2022 Glucose [Mass/Vol] 172 mg/dL High 74 - 118 [facility] Interpretation and review of laboratory results Abnormal [facility] Glucose [Mass/Vol] 141 mg/dL High 74 - 118 [facility] Interpretation and review of laboratory results Abnormal [facility] Glucose [Mass/Vol] 213 mg/dL High 74 - 118 [facility] Interpretation and review of laboratory results Abnormal [facility] Glucose [Mass/Vol] 140 mg/dL High 74 - 118 [facility] Interpretation and review of laboratory results Abnormal [facility] COVID PANEL (BIOFIRE)on 06-18-2022 ADENOVIRUS Negative Normal Negative [facility] Comment on above: Order Comment: A neg ative FilmArray panel does not exclude the possibility of viral or bacterial infection. Negative results should not be used as the sole basis for diagnosis, treatment, or other mangement decisions. Performed By: #### L [id number] #### [facility] [address] [place] [address] BORDETELLA PARAPERTUSSIS Negative Normal Negative [facility] Comment on above: Order Comment: A neg ative FilmArray panel does not exclude the possibility of viral or bacterial infection. Negative results should not be used as the sole basis for diagnosis, treatment, or other mangement decisions. Performed By: #### L [id number] #### [facility] [address] [place] [address] [place] BORDETELLA PERTUSSIS Negative Normal Negative [facility] Comment on above: Order Comment: A neg ative FilmArray panel does not exclude the possibility of viral or bacterial infection. Negative results should not be used as the sole basis for diagnosis, treatment, or other mangement decisions. Performed By: #### L [id number] #### [facility] [address] [place] [address] [place] CHLAMYDIA PNEUMONIAE Negative Normal Negative [facility] Comment on above: Order Comment: A neg ative FilmArray panel does not exclude the possibility of viral or bacterial infection. Negative results should not be used as the sole basis for diagnosis, treatment, or other mangement decisions. Performed By: #### L [id number] #### [facility] [address] [place] [address] [place] CORONAVIRUS [id number] Negative Normal Negative [facility] Comment on above: Order Comment: A neg ative FilmArray panel does not exclude the possibility of viral or bacterial infection. Negative results should not be used as the sole basis for diagnosis, treatment, or other mangement decisions. Performed By: #### L [id number] #### [facility] [address] [place] [address] CORONAVIRUS HKU1 Negative Normal Negative [facility] Comment on above: Order Comment: A neg ative FilmArray panel does not exclude the possibility of viral or bacterial infection. Negative results should not be used as the sole basis for diagnosis, treatment, or other mangement decisions. Performed By: #### L [id number] #### [facility] [address] [place] [address] CORONAVIRUS NL63 Not detected Normal Not Detected [facility] Comment on above: Order Comment: A neg ative FilmArray panel does not exclude the possibility of viral or bacterial infection. Negative results should not be used as the sole basis for diagnosis, treatment, or other mangement decisions. Performed By: #### L [id number] #### [facility] [address] [place] [address] [place] CORONAVIRUS OC43 Negative Normal Negative [facility] Comment on above: Order Comment: A neg ative FilmArray panel does not exclude the possibility of viral or bacterial infection. Negative results should not be used as the sole basis for diagnosis, treatment, or other mangement decisions. Performed By: #### L [id number] #### [facility] [address] [place] [address] [place] HUMAN METAPNEUMOVIRUS Negative Normal Negative [facility] Comment on above: Order Comment: A neg ative FilmArray panel does not exclude the possibility of viral or bacterial infection. Negative results should not be used as the sole basis for diagnosis, treatment, or other mangement decisions. Performed By: #### L [id number] #### [facility] [address] [place] [address] [place] INFLUENZA A/H1 Negative Normal Negative [facility] Comment on above: Order Comment: A neg ative FilmArray panel does not exclude the possibility of viral or bacterial infection. Negative results should not be used as the sole basis for diagnosis, treatment, or other mangement decisions. Performed By: #### L [id number] #### [facility] [address] [place] [address] INFLUENZA A/H1-2009 Negative Normal Negative [facility] Comment on above: Order Comment: A neg ative FilmArray panel does not exclude the possibility of viral or bacterial infection. Negative results should not be used as the sole basis for diagnosis, treatment, or other mangement decisions. Performed By: #### L [id number] #### [facility] [address] [place] [address] INFLUENZA A/H3 Negative Normal Negative [facility] Comment on above: Order Comment: A neg ative FilmArray panel does not exclude the possibility of viral or bacterial infection. Negative results should not be used as the sole basis for diagnosis, treatment, or other mangement decisions. Performed By: #### L [id number] #### [facility] [address] [place] [address] INFLUENZA B Negative Normal Negative [facility] Comment on above: Order Comment: A neg ative FilmArray panel does not exclude the possibility of viral or bacterial infection. Negative results should not be used as the sole basis for diagnosis, treatment, or other mangement decisions. Performed By: #### L [id number] #### [facility] [address] [place] [address] MYCOPLASMA PNEUMONIAE Negative Normal [facility] Comment on above: Order Comment: A neg ative FilmArray panel does not exclude the possibility of viral or bacterial infection. Negative results should not be used as the sole basis for diagnosis, treatment, or other mangement decisions. Performed By: #### L [id number] #### [facility] [address] [place] [address] PARAINFLUENZA VIRUS 1 Negative Normal Negative [facility] Comment on above: Order Comment: A neg ative FilmArray panel does not exclude the possibility of viral or bacterial infection. Negative results should not be used as the sole basis for diagnosis, treatment, or other mangement decisions. Performed By: #### L [id number] #### [facility] [address] [place] [address] PARAINFLUENZA VIRUS 2 Negative Normal Negative [facility] Comment on above: Order Comment: A neg ative FilmArray panel does not exclude the possibility of viral or bacterial infection. Negative results should not be used as the sole basis for diagnosis, treatment, or other mangement decisions. Performed By: #### L [id number] #### [facility] [address] [place] [address] PARAINFLUENZA VIRUS 3 Negative Normal Negative [facility] Comment on above: Order Comment: A neg ative FilmArray panel does not exclude the possibility of viral or bacterial infection. Negative results should not be used as the sole basis for diagnosis, treatment, or other mangement decisions. Performed By: #### L [id number] #### [address] PARAINFLUENZA VIRUS 4 Negative Normal Negative [facility] Comment on above: Order Comment: A neg ative FilmArray panel does not exclude the possibility of viral or bacterial infection. Negative results should not be used as the sole basis for diagnosis, treatment, or other mangement decisions. Performed By: #### L [id number] #### [facility] [address] [place] [address] RESPIRATORY SYNCYTIAL VIRUS Negative Normal Negative or Not Detected [facility] Comment on above: Order Comment: A neg ative FilmArray panel does not exclude the possibility of viral or bacterial infection. Negative results should not be used as the sole basis for diagnosis, treatment, or other mangement decisions. Performed By: #### L [id number] #### [facility] [address] [place] [address] RHINO/ENTEROVIRUS Positive Abnormal Negative [facility] Comment on above: Order Comment: A neg ative FilmArray panel does not exclude the possibility of viral or bacterial infection. Negative results should not be used as the sole basis for diagnosis, treatment, or other mangement decisions. Result Comment: Due to genetic similarity between Human Rhinovirus and Enterovirus, the FilmArray RP cannot reliably differentiate them. A positive result should be followed up by an alternate method if clinically indicated. Contact the microbiology department if further testing is required. Performed By: #### L [id number] #### [facility] [address] [place] [address] SEVERE ACUTE RESPIRATORY SYNDROME COV-2 Negative Normal Negative [facility] Comment on above: Order Comment: A neg ative FilmArray panel does not exclude the possibility of viral or bacterial infection. Negative results should not be used as the sole basis for diagnosis, treatment, or other mangement decisions. Result Comment: This test is performed using RT-PCR for the detection of Severe Acute Respiratory Syndrome Coronavirus 2 (SARS-CoV-2) in the [employer] Respiratory Panel 2.1 assay and analyzed using the [employer] FilmArray Torch. Performed By: #### L [id number] #### [facility] [address] [place] [address] POCT GLUCOSE METERon 022 Glucose [Mass/Vol] 172 mg/dL High [facility]118 [facility] Comment on above: Result Comment: ACCE PT RESULTS Performed By: #### L [id number] #### [facility] [address] [place] [address] Glucose [Mass/Vol] 141 mg/dL High [address] [place] [address] Comment on above: Result Comment: ACCE PT RESULTS Performed By: #### L [id number] #### [facility] [address] [place] [address] Glucose [Mass/Vol] 213 mg/dL High [address] [place] [address] Comment on above: Result Comment: ACCE PT RESULTS Performed By: #### L [id number] #### [facility] [address] [place] [address] Glucose [Mass/Vol] 140 mg/dL High 74-118 [facility] Comment on above: Result Comment: ACCE PT RESULTS Performed By: #### L [id number] #### [facility] [address] [place] [address] RAPID STREP SCREENon 022 S. pyogenes Ag IA Ql (Unsp spec) STREP A ANTIGEN CLINLRR Status = F Negative CULTURE CLINLRR Status = F 468 NORMAL MICROBIOTA 4+ Normal microbiota Normal Negative [facility] Comment on above: Performed By: #### L [id number] #### [facility] [address] [place] [address] Respiratory pathogens DNA an d RNA panel PAT+non-probe (Nph)on 06-18-2022 Adenovirus Negative Negative [facility] B. pertussis toxin promoter region PAT+probe Ql (Nph) Negative Negative [facility] Bordetella Parapertussis Negative Negative [facility] C. pneumoniae DNA PAT+probe Ql (Resp) Negative Negative [facility] FLUBV RNA PAT+probe Ql (Unsp spec) Negative Negative [facility] HCoV 229E RNA PAT+probe Ql (Unsp spec) Negative Negative [facility] HCoV HKU1 RNA PAT+probe Ql (Unsp spec) Negative Negative [facility] HCoV NL63 RNA PAT+probe Ql (Unsp spec) Not detected Not Detected [facility] HCoV OC43 RNA PAT+probe Ql (Unsp spec) Negative Negative [facility] Human Metapneumovirus Negative Negative [facility] Influenza A/H1 Negative Negative [facility] Influenza A/H1-2009 Negative Negative [facility] Influenza A/H3 Negative Negative [facility] Interpretation and review of laboratory results Abnormal [facility] Mycoplasma pneumo Negative [facility] Parainfluenza virus 1 RNA PAT+probe Ql (Unsp spec) Negative Negative [facility] Parainfluenza virus 2 RNA PAT+probe Ql (Unsp spec) Negative Negative [facility] Parainfluenza virus 3 RNA PAT+probe Ql (Unsp spec) Negative Negative [facility] Parainfluenza Virus 4 Negative Negative [facility] Rhinovirus+Enterovirus RNA PAT+probe Ql (Upper resp) Positive Abnormal Negative [facility] RSV RNA PAT+probe Ql (Resp) Negative Negative or Not Detected [facility] SARS-CoV-2 (COVID-19) RNA PAT+non-probe Ql (Nph) Negative Negative [facility] S. pyogenes Ag IA.rapid Ql ( Throat)on 06-18-2022 Interpretation and review of laboratory results Normal [facility] S. pyogenes Ag Ql (Unsp spec) Negative Negative [facility] XR CHEST 1 VIEWon 06-18-2022 XR CHEST 1 VIEW XR CHEST 1 VIEW HEART/MEDIASTINUM/MAXWELL: Borderline cardiac enlargement. LUNGS: Low lung volumes. Linear lingular scarring/atelectasis. No pleural effusion or pneumothorax BONES: No acute skeletal abnormality. LINES/TUBES: None. OTHER FINDINGS: No free subdiaphragmatic air. IMPRESSION: 1. Linear lingular scarring/atelectasis. Low lung volumes. 2. Borderline cardiac enlargement, may be exaggerated by AP portable technique. Manjit Arce MD Normal [facility] XR Chest GE 4 Viewson 2021 [facility] (narrative) [facility] XR Chest GE 4 ViewsOrdered B y: Manjit Arce on 06-18-2022 [facility] Work Phone: Glucose baseline (BldC) [Mas s/Vol]on 06-17-2022 Glucose [Mass/Vol] 162 mg/dL High 74 - 118 [facility] Interpretation and review of laboratory results Abnormal [facility] Glucose [Mass/Vol] 146 mg/dL High 74 - 118 [facility] Interpretation and review of laboratory results Abnormal [facility] Glucose [Mass/Vol] 144 mg/dL High 74 - 118 [facility] Interpretation and review of laboratory results Abnormal [facility] Glucose [Mass/Vol] 107 mg/dL 74 - 118 [facility] Interpretation and review of laboratory results Normal [facility] POCT GLUCOSE METERon 022 Glucose [Mass/Vol] 162 mg/dL High 74-118 [facility] Comment on above: Result Comment: ACCE PT RESULTS Performed By: #### L [id number] #### [facility] [address] [place] [address] Glucose [Mass/Vol] 146 mg/dL High 74-118 [facility] Comment on above: Result Comment: ACCE PT RESULTS Performed By: #### L [id number] #### [facility] [address] [place] [address] [place] Glucose [Mass/Vol] 144 mg/dL High 74-118 [facility] Comment on above: Result Comment: ACCE PT RESULTS Performed By: #### L [id number] #### [facility] [address] [place] [address] [place] Glucose [Mass/Vol] 107 mg/dL Normal 74-118 [facility] Comment on above: Result Comment: ACCE PT RESULTS Performed By: #### L [id number] #### [facility] [address] [place] [address] [place] Glucose baseline (BldC) [Mas s/Vol]on 06-16-2022 Glucose [Mass/Vol] 122 mg/dL High 74 - 118 [facility] Interpretation and review of laboratory results Abnormal [facility] Glucose [Mass/Vol] 162 mg/dL High 74 - 118 [facility] Interpretation and review of laboratory results Abnormal [facility] Glucose [Mass/Vol] 106 mg/dL 74 - 118 [facility] Interpretation and review of laboratory results Normal [facility] Glucose [Mass/Vol] 211 mg/dL High 74 - 118 [facility] Interpretation and review of laboratory results Abnormal [facility] POCT GLUCOSE METERon 022 Glucose [Mass/Vol] 122 mg/dL High 74-118 [facility] Comment on above: Result Comment: ACCE PT RESULTS Performed By: #### L [id number] #### [facility] [address] [place] [address] [place] Glucose [Mass/Vol] 162 mg/dL High 74-118 [facility] Comment on above: Result Comment: ACCE PT RESULTS Performed By: #### L [id number] #### [facility] [address] [place] [address] [place] Glucose [Mass/Vol] 106 mg/dL Normal 74-118 [facility] Comment on above: Result Comment: ACCE PT RESULTS Performed By: #### L [id number] #### [facility] [address] [place] [address] [place] Glucose [Mass/Vol] 211 mg/dL High 74-118 [facility] Comment on above: Result Comment: ACCE PT RESULTS Performed By: #### L [id number] #### [facility] [address] [place] [address] [place] Glucose baseline (BldC) [Mas s/Vol]on 06-15-2022 Glucose [Mass/Vol] 148 mg/dL High 74 - 118 [facility] Interpretation and review of laboratory results Abnormal [facility] Glucose [Mass/Vol] 145 mg/dL High 74 - 118 [facility] Interpretation and review of laboratory results Abnormal [facility] Glucose [Mass/Vol] 150 mg/dL High 74 - 118 [facility] Interpretation and review of laboratory results Abnormal [facility] Glucose [Mass/Vol] 122 mg/dL High 74 - 118 [facility] Interpretation and review of laboratory results Abnormal [facility] POCT GLUCOSE METERon 022 Glucose [Mass/Vol] 148 mg/dL High 74-118 [facility] Comment on above: Result Comment: ACCE PT RESULTS Performed By: #### L [id number] #### [facility] [address] [place] [address] [place] Glucose [Mass/Vol] 145 mg/dL High 74-118 [facility] Comment on above: Result Comment: ACCE PT RESULTS Performed By: #### L [id number] #### [facility] [address] [place] [address] [place] Glucose [Mass/Vol] 150 mg/dL High 74-118 [facility] Comment on above: Result Comment: ACCE PT RESULTS Performed By: #### L [id number] #### [facility] [address] [place] [address] [place] Glucose [Mass/Vol] 122 mg/dL High 74-118 [facility] Comment on above: Result Comment: ACCE PT RESULTS Performed By: #### L [id number] #### [facility] [address] [place] [address] [place] Glucose baseline (BldC) [Mas s/Vol]on 06-14-2022 Glucose [Mass/Vol] 185 mg/dL High 74 - 118 [facility] Interpretation and review of laboratory results Abnormal [facility] Glucose [Mass/Vol] 132 mg/dL High 74 - 118 [facility] Interpretation and review of laboratory results Abnormal [facility] Glucose [Mass/Vol] 165 mg/dL High 74 - 118 [facility] Interpretation and review of laboratory results Abnormal [facility] Glucose [Mass/Vol] 116 mg/dL 74 - 118 [facility] Interpretation and review of laboratory results Normal [facility] POCT GLUCOSE METERon 022 Glucose [Mass/Vol] 185 mg/dL High 74-118 [facility] Comment on above: Result Comment: ACCE PT RESULTS Performed By: #### L [id number] #### [facility] [address] [place] [address] Glucose [Mass/Vol] 132 mg/dL High 74-118 [facility] Comment on above: Result Comment: ACCE PT RESULTS Performed By: #### L [id number] #### [facility] [address] [place] [address] [place] Glucose [Mass/Vol] 165 mg/dL High 74-118 [facility] Comment on above: Result Comment: ACCE PT RESULTS Performed By: #### L [id number] #### [facility] [address] [place] [address] [place] Glucose [Mass/Vol] 116 mg/dL Normal 74-118 [facility] Comment on above: Result Comment: ACCE PT RESULTS Performed By: #### L [id number] #### [facility] [address] [place], [place] [id number] [place] Glucose baseline (BldC) [Mas s/Vol]on 06-13-2022 Glucose [Mass/Vol] 193 mg/dL High 74 - 118 [facility] Interpretation and review of laboratory results Abnormal [facility] Glucose [Mass/Vol] 145 mg/dL High 74 - 118 [facility] Interpretation and review of laboratory results Abnormal [facility] Glucose [Mass/Vol] 175 mg/dL High 74 - 118 [facility] Interpretation and review of laboratory results Abnormal [facility] Glucose [Mass/Vol] 151 mg/dL High 74 - 118 [facility] Interpretation and review of laboratory results Abnormal [facility] POCT GLUCOSE METERon 022 Glucose [Mass/Vol] 193 mg/dL High 74-118 [facility] Comment on above: Result Comment: ACCE PT RESULTS Performed By: #### L [id number] #### [facility] [address] [place] [address] [place] Glucose [Mass/Vol] 145 mg/dL High 74-118 [facility] Comment on above: Result Comment: ACCE PT RESULTS Performed By: #### L [id number] #### [facility] [address] [place] [address] [place] Glucose [Mass/Vol] 175 mg/dL High 74-118 [facility] Comment on above: Result Comment: ACCE PT RESULTS Performed By: #### L [id number] #### [facility] [address] [place] [address] [place] Glucose [Mass/Vol] 151 mg/dL [facility] 74-118 [facility] Comment on above: Result Comment: ACCE PT RESULTS Performed By: #### L [id number] #### [facility] [address] [place] [address] [place] Glucose baseline (BldC) [Mas s/Vol]on 06-12-2022 Glucose [Mass/Vol] 131 mg/dL High 74 - 118 [facility] Interpretation and review of laboratory results Abnormal [facility] Glucose [Mass/Vol] 169 mg/dL High 74 - 118 [facility] Interpretation and review of laboratory results Abnormal [facility] Glucose [Mass/Vol] 177 mg/dL High 74 - 118 [facility] Interpretation and review of laboratory results Abnormal [facility] Glucose [Mass/Vol] 148 mg/dL High 74 - 118 [facility] Interpretation and review of laboratory results Abnormal [facility] Glucose [Mass/Vol] 189 mg/dL High 74 - 118 [facility] Interpretation and review of laboratory results Abnormal [facility] POCT GLUCOSE METERon 022 Glucose [Mass/Vol] 131 mg/dL High [address] Comment on above: Result Comment: ACCE PT RESULTS Performed By: #### L [id number] #### [facility] [address] [place] [address] [place] Glucose [Mass/Vol] 169 mg/dL [address] Comment on above: Result Comment: ACCE PT RESULTS Performed By: #### L [id number] #### [facility] [address] [place] [address] [place] Glucose [Mass/Vol] 177 mg/dL [address] Comment on above: Result Comment: ACCE PT RESULTS Performed By: #### L [id number] #### [facility] [place] [address] [place] Glucose [Mass/Vol] 148 mg/dL [address] Comment on above: Result Comment: ACCE PT RESULTS Performed By: #### L [id number] #### [facility] [place] [address] [place] Glucose [Mass/Vol] 189 mg/dL [address] Comment on above: Result Comment: ACCE PT RESULTS Performed By: #### L [id number] #### [facility] [address] [place] [address] [place] Glucose baseline (BldC) [Mas s/Vol]on 06-11-2022 Glucose [Mass/Vol] 160 mg/dL High [address] [place] [address] Interpretation and review of laboratory results Abnormal [facility] Glucose [Mass/Vol] 177 mg/dL High 74 118 [facility] Interpretation and review of laboratory results Abnormal [facility] Glucose [Mass/Vol] 157 mg/dL High 74 - 118 [facility] Interpretation and review of laboratory results Abnormal [facility] POCT GLUCOSE METERon 022 Glucose [Mass/Vol] 160 mg/dL High 74-118 [facility] Comment on above: Result Comment: ACCE PT RESULTS Performed By: #### L [id number] #### [facility] [address] Glucose [Mass/Vol] 177 mg/dL High 74-118 [facility] Comment on above: Result Comment: ACCE PT RESULTS Performed By: #### L [id number] #### [facility] [address] [place] [address] Glucose [Mass/Vol] 157 mg/dL High 74-118 [facility] Comment on above: Result Comment: ACCE PT RESULTS Performed By: #### L [id number] #### [facility] [address] [place] [address] [place] Glucose baseline (BldC) [Mas s/Vol]on 06-10-2022 Glucose [Mass/Vol] 135 mg/dL High 74 - 118 [facility] Interpretation and review of laboratory results Abnormal [facility] Glucose [Mass/Vol] 118 mg/dL 74 - 118 [facility] Interpretation and review of laboratory results Normal [facility] Glucose [Mass/Vol] 80 mg/dL 74 - 118 [facility] Interpretation and review of laboratory results Normal [facility] Glucose [Mass/Vol] 182 mg/dL High 74 - 118 [facility] Interpretation and review of laboratory results Abnormal [facility] Glucose [Mass/Vol] 100 mg/dL 74 - 118 [facility] Interpretation and review of laboratory results Normal [facility] POCT GLUCOSE METERon 022 Glucose [Mass/Vol] 135 mg/dL High 74-118 [facility] Comment on above: Result Comment: ACCE PT RESULTS Performed By: #### L [id number] #### [facility] [address] [place] [address] [place] Glucose [Mass/Vol] 118 mg/dL Normal 74-118 [facility] Comment on above: Result Comment: ACCE PT RESULTS Performed By: #### L [id number] #### [facility] [address] [place] [address] [place] Glucose [Mass/Vol] 80 mg/dL Normal 74-118 [facility] Comment on above: Result Comment: ACCE PT RESULTS Performed By: #### L [id number] #### [facility] [address] [place] [address] [place] Glucose [Mass/Vol] 182 mg/dL High 74-118 [facility] Comment on above: Result Comment: ACCE PT RESULTS Performed By: #### L [id number] #### [facility] [address] [place] [address] [place] Glucose [Mass/Vol] 100 mg/dL Normal 74-118 [facility] Comment on above: Result Comment: ACCE PT RESULTS Performed By: #### L [id number] #### [facility] [address] [place] [address] [place] Glucose [Mass/Vol] 128 mg/dL High 74-118 [facility] Comment on above: Result Comment: ACCE PT RESULTS Performed By: #### L [id number] #### [facility] [address] [place] [address] [place] Glucose baseline (BldC) [Mas s/Vol]on 06-09-2022 Glucose [Mass/Vol] 128 mg/dL High 74 - 118 [facility] Interpretation and review of laboratory results Abnormal [facility] Glucose [Mass/Vol] 89 mg/dL 74 - 118 [facility] Interpretation and review of laboratory results Normal [facility] Glucose [Mass/Vol] 200 mg/dL High 74 - 118 [facility] Interpretation and review of laboratory results Abnormal [facility] Glucose [Mass/Vol] 119 mg/dL High 74 - 118 [facility] Interpretation and review of laboratory results Abnormal [facility] POCT GLUCOSE METERon 022 Glucose [Mass/Vol] 89 mg/dL Normal 74-118 [facility] Comment on above: Result Comment: ACCE PT RESULTS Performed By: #### L [id number] #### [facility] [address] [place] [address] [place] Glucose [Mass/Vol] 200 mg/dL High 74-118 [facility] Comment on above: Result Comment: ACCE PT RESULTS Performed By: #### L [id number] #### [facility] [address] [place] [address] [place] Glucose [Mass/Vol] 119 mg/dL High 74-118 [facility] Comment on above: Result Comment: ACCE PT RESULTS Performed By: #### L [id number] #### [facility] [address] [place] [address] [place] Glucose baseline (BldC) [Mas s/Vol]on 06-08-2022 Glucose [Mass/Vol] 177 mg/dL High 74 - 118 [facility] Interpretation and review of laboratory results Abnormal [facility] Glucose [Mass/Vol] 157 mg/dL High 74 - 118 [facility] Interpretation and review of laboratory results Abnormal [facility] Glucose [Mass/Vol] 142 mg/dL High 74 - 118 [facility] Interpretation and review of laboratory results Abnormal [facility] POCT GLUCOSE METERon 022 Glucose [Mass/Vol] 177 mg/dL High 74-118 [facility] Comment on above: Result Comment: ACCE PT RESULTS Performed By: #### L [id number] #### [facility] [address] [place] [address] [place] Glucose [Mass/Vol] 157 mg/dL High 74-118 [facility] Comment on above: Result Comment: ACCE PT RESULTS Performed By: #### L [id number] #### [facility] [address] [place] [address] [place] Glucose [Mass/Vol] 142 mg/dL High 74-118 [facility] Comment on above: Result Comment: ACCE PT RESULTS Performed By: #### L [id number] #### [facility] [address] [place] [address] [place] Glucose baseline (BldC) [Mas s/Vol]on 06-07-2022 Glucose [Mass/Vol] 146 mg/dL High 74 - 118 [facility] Interpretation and review of laboratory results Abnormal [facility] Glucose [Mass/Vol] 168 mg/dL High 74 - 118 [facility] Interpretation and review of laboratory results Abnormal [facility] Glucose [Mass/Vol] 103 mg/dL 74 - 118 [facility] Interpretation and review of laboratory results Normal [facility] POCT GLUCOSE METERon 022 Glucose [Mass/Vol] 146 mg/dL High 74-118 [facility] Comment on above: Result Comment: ACCE PT RESULTS Performed By: #### L [id number] #### [facility] [address] [place] [address] [place] Glucose [Mass/Vol] 168 mg/dL High 74-118 [facility] Comment on above: Result Comment: ACCE PT RESULTS Performed By: #### L [id number] #### [facility] [address] [place] [address] [place] Glucose [Mass/Vol] 103 mg/dL Normal 74-118 [facility] Comment on above: Result Comment: ACCE PT RESULTS Performed By: #### L [id number] #### [facility] [address] [place] [address] [place] Glucose baseline (BldC) [Mas s/Vol]on 06-06-2022 Glucose [Mass/Vol] 213 mg/dL High 74 - 118 [facility] Interpretation and review of laboratory results Abnormal [facility] Glucose [Mass/Vol] 88 mg/dL 74 - 118 [facility] Interpretation and review of laboratory results Normal [facility] Glucose [Mass/Vol] 163 mg/dL High 74 - 118 [facility] Interpretation and review of laboratory results Abnormal [facility] Glucose [Mass/Vol] 100 mg/dL 74 - 118 [facility] Interpretation and review of laboratory results Normal [facility] POCT GLUCOSE METERon 022 Glucose [Mass/Vol] 213 mg/dL High 74-118 [facility] Comment on above: Result Comment: ACCE PT RESULTS Performed By: #### L [id number] #### [facility] [address] [place] [address] [place] Glucose [Mass/Vol] 88 mg/dL Normal 74-118 [facility] Comment on above: Result Comment: ACCE PT RESULTS Performed By: #### L [id number] #### [facility] [address] [place] [address] [place] Glucose [Mass/Vol] 163 mg/dL High 74-118 [facility] Comment on above: Result Comment: ACCE PT RESULTS Performed By: #### L [id number] #### [facility] [address] [place] [address] [place] Glucose [Mass/Vol] 100 mg/dL Normal 74-118 [facility] Comment on above: Result Comment: ACCE PT RESULTS Performed By: #### L [id number] #### [facility] [address] [place] [address] [place] Glucose baseline (BldC) [Mas s/Vol]on 06-05-2022 Glucose [Mass/Vol] 178 mg/dL High 74 - 118 [facility] Interpretation and review of laboratory results Abnormal [facility] Glucose [Mass/Vol] 111 mg/dL 74 - 118 [facility] Interpretation and review of laboratory results Normal [facility] Glucose [Mass/Vol] 148 mg/dL High 74 - 118 [facility] Interpretation and review of laboratory results Abnormal [facility] Glucose [Mass/Vol] 94 mg/dL 74 - 118 [facility] Interpretation and review of laboratory results Normal [facility] POCT GLUCOSE METERon 022 Glucose [Mass/Vol] 178 mg/dL High 74-118 [facility] Comment on above: Result Comment: ACCE PT RESULTS Performed By: #### L [id number] #### [facility] [address] [place] [address] [place] Glucose [Mass/Vol] 111 mg/dL Normal 74-118 [facility] Comment on above: Result Comment: ACCE PT RESULTS Performed By: #### L [id number] #### [facility] [address] [place] [address] [place] Glucose [Mass/Vol] 148 mg/dL High 74-118 [facility] Comment on above: Result Comment: ACCE PT RESULTS Performed By: #### L [id number] #### [facility] [address] [place] [address] [place] Glucose [Mass/Vol] 94 mg/dL Normal 74-118 [facility] Comment on above: Result Comment: ACCE PT RESULTS Performed By: #### L [id number] #### [facility] [address] [place] [address] [place] Glucose baseline (BldC) [Mas s/Vol]on 06-04-2022 Glucose [Mass/Vol] 124 mg/dL High 74 - 118 [facility] Interpretation and review of laboratory results Abnormal [facility] Glucose [Mass/Vol] 166 mg/dL High 74 - 118 [facility] Interpretation and review of laboratory results Abnormal [facility] Glucose [Mass/Vol] 127 mg/dL High 74 - 118 [facility] Interpretation and review of laboratory results Abnormal [facility] Glucose [Mass/Vol] 151 mg/dL High 74 - 118 [facility] Interpretation and review of laboratory results Abnormal [facility] POCT GLUCOSE METERon 022 Glucose [Mass/Vol] 124 mg/dL High 74-118 [facility] Comment on above: Result Comment: ACCE PT RESULTS Performed By: #### L [id number] #### [facility] [address] [place] [address] [place] Glucose [Mass/Vol] 166 mg/dL High 74-118 [facility] Comment on above: Result Comment: ACCE PT RESULTS Performed By: #### L [id number] #### [facility] [address] [place] [address] [place] Glucose [Mass/Vol] 127 mg/dL High 74-118 [facility] Comment on above: Result Comment: ACCE PT RESULTS Performed By: #### L [id number] #### [facility] [address] [place] [address] [place] Glucose [Mass/Vol] 151 mg/dL High 74-118 [facility] Comment on above: Result Comment: ACCE PT RESULTS Performed By: #### L [id number] #### [facility] [address] [place] [address] [place] Glucose baseline (BldC) [Mas s/Vol]on 06-03-2022 Glucose [Mass/Vol] 105 mg/dL 74 - 118 [facility] Interpretation and review of laboratory results Normal [facility] Glucose [Mass/Vol] 109 mg/dL 74 - 118 [facility] Interpretation and review of laboratory results Normal [facility] Glucose [Mass/Vol] 192 mg/dL High 74 - 118 [facility] Interpretation and review of laboratory results Abnormal [facility] Glucose [Mass/Vol] 104 mg/dL 74 - 118 [facility] Interpretation and review of laboratory results Normal [facility] POCT GLUCOSE METERon 022 Glucose [Mass/Vol] 105 mg/dL Normal 74-118 [facility] Comment on above: Result Comment: ACCE PT RESULTS Performed By: #### L [id number] #### [facility] [address] [place] [address] [place] Glucose [Mass/Vol] 109 mg/dL Normal 74-118 [facility] Comment on above: Result Comment: ACCE PT RESULTS Performed By: #### L [id number] #### [facility] [address] [place] [address] [place] Glucose [Mass/Vol] 192 mg/dL High 74-118 [facility] Comment on above: Result Comment: ACCE PT RESULTS Performed By: #### L [id number] #### [facility] [address] [place] [address] [place] Glucose [Mass/Vol] 104 mg/dL Normal 74-118 [facility] Comment on above: Result Comment: ACCE PT RESULTS Performed By: #### L [id number] #### [facility] [address] [place] [address] [place] Glucose baseline (BldC) [Mas s/Vol]on 06-02-2022 Glucose [Mass/Vol] 115 mg/dL 74 - 118 [facility] Interpretation and review of laboratory results Normal [facility] Glucose [Mass/Vol] 128 mg/dL High 74 - 118 [facility] Interpretation and review of laboratory results Abnormal [facility] Glucose [Mass/Vol] 146 mg/dL High 74 - 118 [facility] Interpretation and review of laboratory results Abnormal [facility] Glucose [Mass/Vol] 122 mg/dL High 74 - 118 [facility] Interpretation and review of laboratory results Abnormal [facility] POCT GLUCOSE METERon 022 Glucose [Mass/Vol] 115 mg/dL Normal 74-118 [facility] Comment on above: Result Comment: ACCE PT RESULTS Performed By: #### L [id number] #### [facility] [address] [place] [address] [place] Glucose [Mass/Vol] 128 mg/dL High 74-118 [facility] Comment on above: Result Comment: ACCE PT RESULTS Performed By: #### L [id number] #### [facility] [address] [place] [address] [place] Glucose [Mass/Vol] 146 mg/dL High 74-118 [facility] Comment on above: Result Comment: ACCE PT RESULTS Performed By: #### L [id number] #### [facility] [address] [place] [address] [place] Glucose [Mass/Vol] 122 mg/dL High 74-118 [facility] Comment on above: Result Comment: ACCE PT RESULTS Performed By: #### L [id number] #### [facility] [address] [place] [address] [place] Glucose baseline (BldC) [Mas s/Vol]on 06-01-2022 Glucose [Mass/Vol] 113 mg/dL 74 - 118 [facility] Interpretation and review of laboratory results Normal [facility] Glucose [Mass/Vol] 88 mg/dL 74 - 118 [facility] Interpretation and review of laboratory results Normal [facility] Glucose [Mass/Vol] 101 mg/dL 74 - 118 [facility] Interpretation and review of laboratory results Normal [facility] Glucose [Mass/Vol] 120 mg/dL High 74 - 118 [facility] Interpretation and review of laboratory results Abnormal [facility] Glucose [Mass/Vol] 123 mg/dL High 74 - 118 [facility] Interpretation and review of laboratory results Abnormal [facility] POCT GLUCOSE METERon 022 Glucose [Mass/Vol] 113 mg/dL Normal 74-118 [facility] Comment on above: Result Comment: ACCE PT RESULTS Performed By: #### L [id number] #### [facility] [address] [place] [address] [place] Glucose [Mass/Vol] 88 mg/dL Normal 74-118 [facility] Comment on above: Result Comment: ACCE PT RESULTS Performed By: #### L [id number] #### [facility] [address] [place] [address] [place] Glucose [Mass/Vol] 101 mg/dL Normal 74-118 [facility] Comment on above: Result Comment: ACCE PT RESULTS Performed By: #### L [id number] #### [facility] [address] [place] [address] [place] Glucose [Mass/Vol] 120 mg/dL High 74-118 [facility] Comment on above: Result Comment: ACCE PT RESULTS Performed By: #### L [id number] #### [facility] [place] [address] [place] Glucose [Mass/Vol] 123 mg/dL High 74-118 [facility] Comment on above: Result Comment: ACCE PT RESULTS Performed By: #### L [id number] #### [facility] [address] [place] [address] [place] Glucose [Mass/Vol] 116 mg/dL Normal 74-118 [facility] Comment on above: Result Comment: ACCE PT RESULTS Performed By: #### L [id number] #### [facility] [address] [place] [address] [place] Glucose baseline (BldC) [Mas s/Vol]on 05-31-2022 Glucose [Mass/Vol] 116 mg/dL 74 - 118 [facility] Interpretation and review of laboratory results Normal [facility] Glucose [Mass/Vol] 145 mg/dL High 74 - 118 [facility] Interpretation and review of laboratory results Abnormal [facility] Glucose [Mass/Vol] 198 mg/dL High 74 - 118 [facility] Interpretation and review of laboratory results Abnormal [facility] Glucose [Mass/Vol] 150 mg/dL High 74 - 118 [facility] Interpretation and review of laboratory results Abnormal [facility] Glucose [Mass/Vol] 99 mg/dL 74 - 118 [facility] Interpretation and review of laboratory results Normal [facility] POCT GLUCOSE METERon 022 Glucose [Mass/Vol] 145 mg/dL High 74-118 [facility] Comment on above: Result Comment: ACCE PT RESULTS Performed By: #### L [id number] #### [facility] [address] [place] [address] [place] Glucose [Mass/Vol] 198 mg/dL High 74-118 [facility] Comment on above: Result Comment: ACCE PT RESULTS Performed By: #### L [id number] #### [facility] [address] [place] [address] [place] Glucose [Mass/Vol] 150 mg/dL High 74-118 [facility] Comment on above: Result Comment: ACCE PT RESULTS Performed By: #### L [id number] #### [facility] [address] [place] [address] [place] Glucose [Mass/Vol] 99 mg/dL Normal 74-118 [facility] Comment on above: Result Comment: ACCE PT RESULTS Performed By: #### L [id number] #### [facility] [address] [place] [address] [facility] BASIC METABOLIC PANELon 05-05 ANION GAP IN SER/PLAS 10.3 unit/s Normal 8.0-22.0 [facility] Comment on above: Performed By: #### L [id number] #### [facility] [address] [place] [address] [place] Calcium [Mass/Vol] 8.9 mg/dL Normal 8.7-10.4 [facility] Comment on above: Performed By: #### L [id number] #### [facility] [address] [place] [address] [place] Chloride [Moles/Vol] 109 mmol/L Normal 99-109 [facility] Comment on above: Performed By: #### L [id number] #### [facility] [address] [place] [address] [place] CO2 [Moles/Vol] 26 mmol/L Normal 20-31 [facility] Comment on above: Performed By: #### L [id number] #### [facility] [address] [place] [address] [place] Creatinine [Mass/Vol] 1.5 mg/dL High 0.7-1.3 [facility] Comment on above: Performed By: #### L [id number] #### [facility] [address] [place] [address] [place] GLOMERULAR FILTRATION RATE ML/MIN/1.73 SQ M.PREDICTED 53.0 mL/min/1.73m*2 Normal [facility] Comment on above: Result Comment: CALCULATION BASED ON THE CHRONIC KIDNEY DISEASE EPIDEMIOLOGY COLLABORATION (CKD-EPI) EQUATION REFIT WITHOUT ADJUSTMENT FOR RACE. GFR LESS THAN 60 mL/min/1.73m2: SUGGESTIVE OF CHRONIC KIDNEY DISEASE. GFR LESS THAN 15 mL/min/1.73m2: SUGGESTIVE OF END STAGE RENAL DISEASE. Performed By: #### L [id number] #### [facility] [address] [place] [address] [place] Glucose [Mass/Vol] 82 mg/dL Normal 74-106 [facility] Comment on above: Result Comment: NOTE IF THIS IS A FASTING SPECIMEN THE FOLLOWING RANGES APPLY: NORMAL 70 TO 99 mg/dL PREDIABETIC 100 TO 125 mg/dL DIABETIC >= 126 mg/dL Performed By: #### L [id number] #### [id number] [place] [address] [place] OSMOLALITY (MOSM/KG) OF SER/PLAS BY CALCULATION 290 mosm/kg Normal 275-305 [facility] Comment on above: Performed By: #### L [id number] #### [facility] [address] [place] [address] [place] Potassium [Moles/Vol] 4.3 mmol/L Normal 3.6-5.1 [facility] Comment on above: Performed By: #### L [id number] #### [facility] [address] [place] [address] [place] Sodium [Moles/Vol] 141 mmol/L Normal 132-146 [facility] Comment on above: Performed By: #### L [id number] #### [facility] [address] [place] [id number] [place] Urea nitrogen [Mass/Vol] 40 mg/dL High 9-23 [facility] Comment on above: Performed By: #### L [id number] #### [facility] [address] [place] [address] [place] UREA NITROGEN/CREATININE (MASS RATIO) IN SER/PLAS 26.7 unit/s High 6.0-20.0 [facility] Comment on above: Performed By: #### L [id number] #### [facility] [address] [place] [address] [facility] Basic metabolic 1998 panelon 05-30-2022 Anion gap [Moles/Vol] 10.3 mmol/L [facility] Calcium [Mass/Vol] 8.9 mg/dL 8.7 - 10. 4 mg/dL [facility] Chloride [Moles/Vol] 109 mmol/L 99 - 10 9 mmol/L [facility] CO2 [Moles/Vol] 26 mmol/L 20 - 31 mmol/L [facility] Creatinine [Mass/Vol] 1.5 mg/dL High 0.7 - 1.3 mg/dL [facility] GFR/1.73 sq M.predicted MDRD (S/P/Bld) [Vol rate/Area] 53.0 mL/min/{1.73_m2} mL/min/1.73m *2 [facility] Glucose [Mass/Vol] 82 mg/dL 74 - 106 mg/dL [facility] Interpretation and review of laboratory results Abnormal [facility] Osmolality Calc [Osmolality] 290 mosm/kg 275 - 305 mosm/kg [facility] Potassium [Moles/Vol] 4.3 mmol/L 3.6 - 5.1 mmol/L [facility] Sodium [Moles/Vol] 141 mmol/L 132 - 146 mmol/L [facility] Urea nitrogen [Mass/Vol] 40 mg/dL High 9 - 23 mg/dL [facility] Urea nitrogen/Creatinine [Mass ratio] 26.7 mg/mg High [facility] Glucose baseline (BldC) [Mas s/Vol]on 05-30-2022 Glucose [Mass/Vol] 154 mg/dL High 74 - 118 [facility] Interpretation and review of laboratory results Abnormal [facility] Glucose [Mass/Vol] 105 mg/dL 74 - 118 [facility] Interpretation and review of laboratory results Normal [facility] Glucose [Mass/Vol] 199 mg/dL High 74 - 118 [facility] Interpretation and review of laboratory results Abnormal [facility] Glucose [Mass/Vol] 85 mg/dL 74 - 118 [facility] Interpretation and review of laboratory results Normal [facility] POCT GLUCOSE METERon 022 Glucose [Mass/Vol] 154 mg/dL High 74-118 [facility] Comment on above: Result Comment: ACCE PT RESULTS Performed By: #### L [id number] #### [facility] [address] [place] [address] [place] Glucose [Mass/Vol] 105 mg/dL Normal 74-118 [facility] Comment on above: Result Comment: ACCE PT RESULTS Performed By: #### L [id number] #### [facility] [address] [place] [address] [place] Glucose [Mass/Vol] 199 mg/dL High 74-118 [facility] Comment on above: Result Comment: ACCE PT RESULTS Performed By: #### L [id number] #### [facility] [address] [place] [address] [place] Glucose [Mass/Vol] 85 mg/dL Normal 74-118 [facility] Comment on above: Result Comment: ACCE PT RESULTS Performed By: #### L [id number] #### [facility] [address] [place] [address] [place] Glucose baseline (BldC) [Mas s/Vol]on 05-29-2022 Glucose [Mass/Vol] 162 mg/dL High 74 - 118 [facility] Interpretation and review of laboratory results Abnormal [facility] Glucose [Mass/Vol] 128 mg/dL High 74 - 118 [facility] Interpretation and review of laboratory results Abnormal [facility] Glucose [Mass/Vol] 166 mg/dL High 74 - 118 [facility] Interpretation and review of laboratory results Abnormal [facility] Glucose [Mass/Vol] 87 mg/dL 74 - 118 [facility] Interpretation and review of laboratory results Normal [facility] POCT GLUCOSE METERon 022 Glucose [Mass/Vol] 162 mg/dL High 74-118 [facility] Comment on above: Result Comment: ACCE PT RESULTS Performed By: #### L [id number] #### [facility] [address] [place] [address] [place] Glucose [Mass/Vol] 128 mg/dL High 74-118 [facility] Comment on above: Result Comment: ACCE PT RESULTS Performed By: #### L [id number] #### [facility] [address] [place] [address] [place] Glucose [Mass/Vol] 166 mg/dL High 74-118 [facility] Comment on above: Result Comment: ACCE PT RESULTS Performed By: #### L [id number] #### [facility] [address] [place] [address] [place] Glucose [Mass/Vol] 87 mg/dL Normal 74-118 [facility] Comment on above: Result Comment: ACCE PT RESULTS Performed By: #### L [id number] #### [facility] [address] [place] [address] [place] Glucose baseline (BldC) [Mas s/Vol]on 05-28-2022 Glucose [Mass/Vol] 216 mg/dL High 74 - 118 [facility] Interpretation and review of laboratory results Abnormal [facility] Glucose [Mass/Vol] 145 mg/dL High 74 - 118 [facility] Interpretation and review of laboratory results Abnormal [facility] Glucose [Mass/Vol] 118 mg/dL 74 - 118 [facility] Interpretation and review of laboratory results Normal [facility] Glucose [Mass/Vol] 160 mg/dL High 74 - 118 [facility] Interpretation and review of laboratory results Abnormal [facility] POCT GLUCOSE METERon 022 Glucose [Mass/Vol] 216 mg/dL High 74-118 [facility] Comment on above: Result Comment: ACCE PT RESULTS Performed By: #### L [id number] #### [facility] [address] [place] [address] [place] Glucose [Mass/Vol] 145 mg/dL High 74-118 [facility] Comment on above: Result Comment: ACCE PT RESULTS Performed By: #### L [id number] #### [facility] [address] [place] [address] [place] Glucose [Mass/Vol] 118 mg/dL Normal 74-118 [facility] Comment on above: Result Comment: ACCE PT RESULTS Performed By: #### L [id number] #### [facility] [address] [place] [address] [place] Glucose [Mass/Vol] 160 mg/dL High 74-118 [facility] Comment on above: Result Comment: ACCE PT RESULTS Performed By: #### L [id number] #### [facility] [address] [place] [address] [place] Glucose baseline (BldC) [Mas s/Vol]on 05-27-2022 Glucose [Mass/Vol] 147 mg/dL High 74 - 118 [facility] Interpretation and review of laboratory results Abnormal [facility] Glucose [Mass/Vol] 194 mg/dL High 74 - 118 [facility] Interpretation and review of laboratory results Abnormal [facility] Glucose [Mass/Vol] 174 mg/dL High 74 - 118 [facility] Interpretation and review of laboratory results Abnormal [facility] Glucose [Mass/Vol] 119 mg/dL High 74 - 118 [facility] Interpretation and review of laboratory results Abnormal [facility] POCT GLUCOSE METERon 022 Glucose [Mass/Vol] 147 mg/dL High 74-118 [facility] Comment on above: Result Comment: ACCE PT RESULTS Performed By: #### L [id number] #### [facility] [address] [place] [address] [place] Glucose [Mass/Vol] 194 mg/dL High 74-118 [facility] Comment on above: Result Comment: ACCE PT RESULTS Performed By: #### L [id number] #### [facility] [address] [place] [address] [place] Glucose [Mass/Vol] 174 mg/dL High 74-118 [facility] Comment on above: Result Comment: ACCE PT RESULTS Performed By: #### L [id number] #### [facility] [address] [place] [address] [place] Glucose [Mass/Vol] 119 mg/dL High 74-118 [facility] Comment on above: Result Comment: ACCE PT RESULTS Performed By: #### L [id number] #### [facility] [address] [place] [address] [place] Glucose baseline (BldC) [Mas s/Vol]on 05-26-2022 Glucose [Mass/Vol] 186 mg/dL High 74 - 118 [facility] Interpretation and review of laboratory results Abnormal [facility] Glucose [Mass/Vol] 170 mg/dL High 74 - 118 [facility] Interpretation and review of laboratory results Abnormal [facility] Glucose [Mass/Vol] 176 mg/dL High 74 - 118 [facility] Interpretation and review of laboratory results Abnormal [facility] Glucose [Mass/Vol] 146 mg/dL High 74 - 118 [facility] Interpretation and review of laboratory results Abnormal [facility] POCT GLUCOSE METERon 022 Glucose [Mass/Vol] 186 mg/dL High 74-118 [facility] Comment on above: Result Comment: ACCE PT RESULTS Performed By: #### L [id number] #### [facility] [address] [place] [address] [place] Glucose [Mass/Vol] 170 mg/dL High 74-118 [facility] Comment on above: Result Comment: ACCE PT RESULTS Performed By: #### L [id number] #### [facility] [address] [place] [address] [place] Glucose [Mass/Vol] 176 mg/dL High 74-118 [facility] Comment on above: Result Comment: ACCE PT RESULTS Performed By: #### L [id number] #### [facility] [address] [place] [address] [place] Glucose [Mass/Vol] 146 mg/dL High 74-118 [facility] Comment on above: Result Comment: ACCE PT RESULTS Performed By: #### L [id number] #### [facility] [address] [place] [address] [place] Glucose baseline (BldC) [Mas s/Vol]on 05-25-2022 Glucose [Mass/Vol] 217 mg/dL High 74 - 118 [facility] Interpretation and review of laboratory results Abnormal [facility] Glucose [Mass/Vol] 135 mg/dL High 74 - 118 [facility] Interpretation and review of laboratory results Abnormal [facility] Glucose [Mass/Vol] 92 mg/dL 74 - 118 [facility] Interpretation and review of laboratory results Normal [facility] Glucose [Mass/Vol] 175 mg/dL High 74 - 118 [facility] Interpretation and review of laboratory results Abnormal [facility] POCT GLUCOSE METERon 022 Glucose [Mass/Vol] 217 mg/dL High 74-118 [facility] Comment on above: Result Comment: ACCE PT RESULTS Performed By: #### L [id number] #### [facility] [address] [place] [address] [place] Glucose [Mass/Vol] 135 mg/dL High 74-118 [facility] Comment on above: Result Comment: ACCE PT RESULTS Performed By: #### L [id number] #### [facility] [address] [place] [address] [place] Glucose [Mass/Vol] 92 mg/dL Normal 74-118 [facility] Comment on above: Result Comment: ACCE PT RESULTS Performed By: #### L [id number] #### [facility] [address] [place] [address] [place] Glucose [Mass/Vol] 175 mg/dL High 74-118 [facility] Comment on above: Result Comment: ACCE PT RESULTS Performed By: #### L [id number] #### [facility] [address] [place] [address] [place] Glucose baseline (BldC) [Mas s/Vol]on 05-24-2022 Glucose [Mass/Vol] 162 mg/dL High 74 - 118 [facility] Interpretation and review of laboratory results Abnormal [facility] Glucose [Mass/Vol] 149 mg/dL High 74 - 118 [facility] Interpretation and review of laboratory results Abnormal [facility] Glucose [Mass/Vol] 128 mg/dL High 74 - 118 [facility] Interpretation and review of laboratory results Abnormal [facility] Glucose [Mass/Vol] 171 mg/dL High 74 - 118 [facility] Interpretation and review of laboratory results Abnormal [facility] Glucose [Mass/Vol] 134 mg/dL High 74 - 118 [facility] Interpretation and review of laboratory results Abnormal [facility] POCT GLUCOSE METERon 022 Glucose [Mass/Vol] 162 mg/dL High 74-118 [facility] Comment on above: Result Comment: ACCE PT RESULTS Performed By: #### L [id number] #### [facility] [address] [place] [address] [place] Glucose [Mass/Vol] 149 mg/dL High 74-118 [facility] Comment on above: Result Comment: ACCE PT RESULTS Performed By: #### L [id number] #### [facility] [address] [place] [address] [place] Glucose [Mass/Vol] 128 mg/dL High 74-118 [facility] Comment on above: Result Comment: ACCE PT RESULTS Performed By: #### L [id number] #### [facility] [address] [place] [address] [facility] Glucose [Mass/Vol] 171 mg/dL High 74-118 [facility] Comment on above: Result Comment: ACCE PT RESULTS Performed By: #### L [id number] #### [facility] [address] [place] [address] [facility] Glucose [Mass/Vol] 134 mg/dL High 74-118 [facility] Comment on above: Result Comment: ACCE PT RESULTS Performed By: #### L [id number] #### [facility] [address] [place] [address] [facility] BASIC METABOLIC PANELon 07-2 ANION GAP IN SER/PLAS 9.5 unit/s Normal 8.0-22.0 [facility] Comment on above: Performed By: #### P [id number] #### [facility] [address] [place] [address] [facility] Calcium [Mass/Vol] 8.8 mg/dL Normal 8.7-10.4 [facility] Comment on above: Performed By: #### P [id number] #### [facility] [address] [place] [address] [facility] Chloride [Moles/Vol] 107 mmol/L Normal 99-109 [facility] Comment on above: Performed By: #### P [id number] #### [facility] [address] [place] [address] [facility] CO2 [Moles/Vol] 27 mmol/L Normal 20-31 [facility] Comment on above: Performed By: #### P [id number] #### [facility] [address] [place] [address] [facility] Creatinine [Mass/Vol] 1.4 mg/dL High 0.7-1.3 [facility] Comment on above: Performed By: #### P [id number] #### [facility] [address] [place] [address] [facility] GLOMERULAR FILTRATION RATE ML/MIN/1.73 SQ M.PREDICTED 57.5 mL/min/1.73m*2 Normal [facility] Comment on above: Result Comment: CALCULATION BASED ON THE CHRONIC KIDNEY DISEASE EPIDEMIOLOGY COLLABORATION (CKD-EPI) EQUATION REFIT WITHOUT ADJUSTMENT FOR RACE. GFR LESS THAN 60 mL/min/1.73m2: SUGGESTIVE OF CHRONIC KIDNEY DISEASE. GFR LESS THAN 15 mL/min/1.73m2: SUGGESTIVE OF END STAGE RENAL DISEASE. Performed By: #### P [id number] #### [facility] [address] [place] [address] [place] Glucose [Mass/Vol] 117 mg/dL High 74-106 [facility] Comment on above: Result Comment: NOTE IF THIS IS A FASTING SPECIMEN THE FOLLOWING RANGES APPLY: NORMAL 70 TO 99 mg/dL PREDIABETIC 100 TO 125 mg/dL DIABETIC >= 126 mg/dL Performed By: #### P [id number] #### [facility] [address] [place] [address] [place] OSMOLALITY (MOSM/KG) OF SER/PLAS BY CALCULATION 288 mosm/kg Normal 275-305 [facility] Comment on above: Performed By: #### P [id number] #### [facility] [place] [address] [place] Potassium [Moles/Vol] 4.5 mmol/L Normal 3.6-5.1 [facility] Comment on above: Performed By: #### P [id number] #### [facility] [place] [address] [place] Sodium [Moles/Vol] 139 mmol/L Normal 132-146 [facility] Comment on above: Performed By: #### P [id number] #### [facility] [address] [place] [address] [place] Urea nitrogen [Mass/Vol] 39 mg/dL High 9-23 [facility] Comment on above: Performed By: #### P [id number] #### [facility] [address] UREA NITROGEN/CREATININE (MASS RATIO) IN SER/PLAS 27.9 unit/s High 6.0-20.0 [facility] Comment on above: Performed By: #### P [id number] #### [facility] [address] Basic metabolic 1998 panelon 05-23-2022 Anion gap [Moles/Vol] 9.5 mmol/L [facility] Calcium [Mass/Vol] 8.8 mg/dL 8.7 - 10. 4 mg/dL [facility] Chloride [Moles/Vol] 107 mmol/L 99 - 10 9 mmol/L [facility] CO2 [Moles/Vol] 27 mmol/L 20 - 31 mmol/L [facility] Creatinine [Mass/Vol] 1.4 mg/dL High 0.7 - 1.3 mg/dL [facility] GFR/1.73 sq M.predicted MDRD (S/P/Bld) [Vol rate/Area] 57.5 mL/min/{1.73_m2} mL/min/1.73m *2 [facility] Glucose [Mass/Vol] 117 mg/dL High 74 - 106 mg/dL [facility] Interpretation and review of laboratory results Abnormal [facility] Osmolality Calc [Osmolality] 288 mosm/kg 275 - 305 mosm/kg [facility] Potassium [Moles/Vol] 4.5 mmol/L 3.6 - 5.1 mmol/L [facility] Sodium [Moles/Vol] 139 mmol/L 132 - 146 mmol/L [facility] Urea nitrogen [Mass/Vol] 39 mg/dL High 9 - 23 mg/dL [facility] Urea nitrogen/Creatinine [Mass ratio] 27.9 mg/mg High [facility] CBC W Auto Differential pane l (Bld)on 05-23-2022 Basophils (Bld) [#/Vol] 0.0 10*3/uL 0.0 - 0.1 10*3/uL [facility] Basophils/100 WBC (Bld) 0.6 % 0.0 - 1.0 % [facility] Eosinophils (Bld) [#/Vol] 0.3 10*3/uL 0.1 - 0.3 10*3/uL [facility] Eosinophils/100 WBC (Bld) 3.0 % 1.0 - 4.0 % [facility] Erythrocyte distribution width (RBC) [Ratio] 14.6 % High 11.5 - 14.5 % [facility] Hematocrit (Bld) [Volume fraction] 25.9 % Low 41.0 - 53.0 % [facility] Hemoglobin (Bld) [Mass/Vol] 9.0 g/dL Low 13.5 - 17.5 g/dL [facility] Interpretation and review of laboratory results Abnormal [facility] Lymphocytes (Bld) [#/Vol] 1.7 10*3/uL 1.0 - 3.5 10*3/uL [facility] Lymphocytes/100 WBC (Bld) 20.2 % Low 24.0 - 44.0 % [facility] MCH (RBC) [Entitic mass] 29.7 pg 26.0 - 34.0 pg [facility] MCHC (RBC) [Mass/Vol] 34.7 g/dL 31.0 - 37.0 g/dL [facility] MCV (RBC) [Entitic vol] 85.5 fL 80.0 - 100.0 fL [facility] Monocytes (Bld) [#/Vol] 1.1 10*3/uL High 0.1 - 1.0 10*3/uL [facility] Monocytes/100 WBC (Bld) 12.9 % High 1.0 - 7.0 % [facility] Neutrophils (Bld) [#/Vol] 5.3 10*3/uL 1.6 - 7.5 10*3/uL [facility] Neutrophils/100 WBC (Bld) 63.3 % 36.0 - 71.0 % [facility] Platelet mean volume (Bld) [Entitic vol] 6.5 fL Low 7.4 - 10.4 fL [facility] Platelets (Bld) [#/Vol] 191 10*3/uL 140 - 440 10*3/uL [facility] RBC (Bld) [#/Vol] 3.03 10*6/uL Low 4.50 - 5.9 0 10*6/uL [facility] WBC (Bld) [#/Vol] 8.4 10*3/uL 4.0 - 11.0 10*3/uL [facility] CBC WITH AUTO DIFFERENTIALon 05-23-2022 Basophils (Bld) [#/Vol] 0.0 10*3/uL Normal 0.0-0.1 [facility] Comment on above: Performed By: #### P [id number] #### [facility] [address] [place] [address] Basophils/100 WBC (Bld) 0.6 % Normal 0.0-1.0 L [facility] Comment on above: Performed By: #### P [id number] #### [facility] [address] [place] [address] Eosinophils (Bld) [#/Vol] 0.3 10*3/uL Normal 0.1-0.3 [facility] Comment on above: Performed By: #### P [id number] #### [facility] [address] [place] [address] Eosinophils/100 WBC (Bld) 3.0 % Normal 1.0-4.0 [facility] Comment on above: Performed By: #### P [id number] #### [facility] [address] [place] [address] Erythrocyte distribution width (RBC) [Ratio] 14.6 % High 11.5-14.5 [facility] Comment on above: Performed By: #### P [id number] #### [facility] [address] [place] [address] ERYTHROCYTE MEAN CORPUSCULAR HEMOGLOBIN CONCENTRATION (G/DL) BY AUTOMATED 34.7 g/dL Normal 31.0-37.0 [facility] Comment on above: Performed By: #### P [id number] #### [facility] [address] [place] [address] Hematocrit (Bld) [Volume fraction] 25.9 % Low 41.0-53.0 [facility] Comment on above: Performed By: #### P [id number] #### [facility] [address] [place] [address] Hemoglobin (Bld) [Mass/Vol] 9.0 g/dL Low 13.5-17.5 [facility] Comment on above: Performed By: #### P [id number] #### [facility] [address] [place] [address] Lymphocytes (Bld) [#/Vol] 1.7 10*3/uL Normal 1.0-3.5 [facility] Comment on above: Performed By: #### P [id number] #### [facility] [address] [place] [address] Lymphocytes/100 WBC (Bld) 20.2 % Low 24.0-44.0 [facility] Comment on above: Performed By: #### P [id number] #### [facility] [address] [place] [address] MCH (RBC) [Entitic mass] 29.7 pg Normal 26.0-34.0 [facility] Comment on above: Performed By: #### P [id number] #### [facility] [address] [place] [address] MCV (RBC) [Entitic vol] 85.5 fL Normal 80.0-100.0 L [facility] Comment on above: Performed By: #### P [id number] #### [facility] [address] [place] [address] Monocytes (Bld) [#/Vol] 1.1 10*3/uL High 0.1-1.0 [facility] Comment on above: Performed By: #### P [id number] #### [facility] [address] [place] [address] [place] Monocytes/100 WBC (Bld) 12.9 % High 1.0-7.0 L [facility] Comment on above: Performed By: #### P [id number] #### [facility] [address] [place] [address] Neutrophils (Bld) [#/Vol] 5.3 10*3/uL Normal 1.6-7.5 [facility] Comment on above: Performed By: #### P [id number] #### [facility] [address] [place] [address] Neutrophils/100 WBC (Bld) 63.3 % Normal 36.0-71.0 [facility] Comment on above: Performed By: #### P [id number] #### [facility] [address] [place] [address] Platelet mean volume (Bld) [Entitic vol] 6.5 fL Low 7.4-10.4 [facility] Comment on above: Performed By: #### P [id number] #### [facility] [address] [place] [address] PLATELETS (10*3/UL) IN BLOOD AUTOMATED COUNT 191 10*3/uL Normal 140-440 [facility] Comment on above: Performed By: #### P [id number] #### [facility] [address] [place] [address] RBC (Bld) [#/Vol] 3.03 10*6/uL Low 4.50-5.90 [facility] Comment on above: Performed By: #### P [id number] #### [facility] [address] [place] [address] WBC (Bld) [#/Vol] 8.4 10*3/uL Normal 4.0-11.0 [facility] Comment on above: Performed By: #### P [id number] #### [facility] [address] [place] [address] Glucose baseline (BldC) [Mas s/Vol]on 05-23-2022 Glucose [Mass/Vol] 130 mg/dL High 74 - 118 [facility] Interpretation and review of laboratory results Abnormal [facility] Glucose [Mass/Vol] 188 mg/dL High 74 - 118 [facility] Interpretation and review of laboratory results Abnormal [facility] Glucose [Mass/Vol] 117 mg/dL 74 - 118 [facility] Interpretation and review of laboratory results Normal [facility] POCT GLUCOSE METERon 022 Glucose [Mass/Vol] 130 mg/dL High 74-118 [facility] Comment on above: Result Comment: ACCE PT RESULTS Performed By: #### L [id number] #### [facility] [address] [place] [address] [place] Glucose [Mass/Vol] 188 mg/dL High 74-118 [facility] Comment on above: Result Comment: ACCE PT RESULTS Performed By: #### L [id number] #### [facility] [address] [place] [address] [place] Glucose [Mass/Vol] 117 mg/dL Normal 74-118 [facility] Comment on above: Result Comment: ACCE PT RESULTS Performed By: #### L [id number] #### [facility] [address] [place] [address] [facility] VAS VENOUS LOWER EXTREMITY L EFTon 05-23-2022 VAS VENOUS LOWER EXTREMITY LEFT VAS VENOUS LOWER EXTREMITY LEFT INDICATIONS: Left thigh pain, chronic left foot wound FINDINGS: Left lower extremity venous imaging was performed utilizing B-mode imaging and color/spectral Doppler. The common femoral, femoral, and popliteal veins show good compressibility and color flow. The common femoral, femoral, and popliteal veins show good phasic spectral flow with distal augmentation. The profunda vein shows good color flow. The gastrocnemius veins are compressible behind the knee. The great saphenous and small saphenous veins are compressible where visualized. Suboptimal 2d visualization of the posterior tibial and peroneal vein- color flow images obtained. Contralateral common femoral vein appears to be patent with good spectral and color flow. PRELIMINARY FINDINGS -- Negative for DVT CONCLUSION: 1. No evidence of deep vein thrombosis or superficial thrombophlebitis in the visualized veins of the left lower extremity. 2. No evidence of deep vein thrombosis in the contralateral common femoral vein. 3. Suboptimal visualization of the tibial and peroneal veins. Vessels only visualized in color flow. No evidence of deep vein thrombosis. Normal [facility] CPACS [facility] VAS VENOUS LOWER EXTREMITY L EFTOrdered By: Paul Gaona on 05-23-2022 [facility] Work Phone: Glucose baseline (BldC) [Mas s/Vol]on 05-22-2022 Glucose [Mass/Vol] 221 mg/dL High 74 - 118 [facility] Interpretation and review of laboratory results Abnormal [facility] Glucose [Mass/Vol] 180 mg/dL High 74 - 118 [facility] Interpretation and review of laboratory results Abnormal [facility] Glucose [Mass/Vol] 131 mg/dL High 74 - 118 [facility] Interpretation and review of laboratory results Abnormal [facility] Glucose [Mass/Vol] 100 mg/dL 74 - 118 [facility] Interpretation and review of laboratory results Normal [facility] POCT GLUCOSE METERon 022 Glucose [Mass/Vol] 221 mg/dL High 74-118 [facility] Comment on above: Result Comment: ACCE PT RESULTS Performed By: #### P [id number] #### [facility] Glucose [Mass/Vol] 180 mg/dL High 74-118 [facility] Comment on above: Result Comment: ACCE PT RESULTS Performed By: #### P [id number] #### [facility] [address] Glucose [Mass/Vol] 131 mg/dL High 74-118 [facility] Comment on above: Result Comment: ACCE PT RESULTS Performed By: #### P [id number] #### [facility] [address] Glucose [Mass/Vol] 100 mg/dL Normal 74-[address] [place] [address] Comment on above: Result Comment: ACCE PT RESULTS Performed By: #### P [id number] #### [facility] [address] [place] [address] VAS VENOUS LOWER EXTREMITY L EFTon 05-22-2022 Radiology Study observation (narrative) [facility] Glucose baseline (BldC) [Mas s/Vol]on 05-21-2022 Glucose [Mass/Vol] 179 mg/dL High 74 - 118 [facility] Interpretation and review of laboratory results Abnormal [facility] Glucose [Mass/Vol] 149 mg/dL High 74 - 118 [facility] Interpretation and review of laboratory results Abnormal [facility] Glucose [Mass/Vol] 190 mg/dL High 74 - 118 [facility] Interpretation and review of laboratory results Abnormal [facility] Glucose [Mass/Vol] 126 mg/dL High 74 - 118 [facility] Interpretation and review of laboratory results Abnormal [facility] POCT GLUCOSE METERon 022 Glucose [Mass/Vol] 179 mg/dL High 74-118 [facility] Comment on above: Result Comment: ACCE PT RESULTS Performed By: #### P [id number] #### [facility] [address] [place] [address] Glucose [Mass/Vol] 149 mg/dL High 74-118 [facility] Comment on above: Result Comment: ACCE PT RESULTS Performed By: #### P [id number] #### [facility] [address] [place] [address] [place] Glucose [Mass/Vol] 190 mg/dL High 74-118 [facility] Comment on above: Result Comment: ACCE PT RESULTS Performed By: #### P [id number] #### [facility] [address] [place] [address] [place] Glucose [Mass/Vol] 126 mg/dL High 74-118 [facility] Comment on above: Result Comment: ACCE PT RESULTS Performed By: #### P [id number] #### [facility] [address] [place] [address] [place] Glucose baseline (BldC) [Mas s/Vol]on 05-20-2022 Glucose [Mass/Vol] 122 mg/dL High 74 - 118 [facility] Interpretation and review of laboratory results Abnormal [facility] Glucose [Mass/Vol] 133 mg/dL High 74 - 118 [facility] Interpretation and review of laboratory results Abnormal [facility] Glucose [Mass/Vol] 137 mg/dL High 74 - 118 [facility] Interpretation and review of laboratory results Abnormal [facility] Glucose [Mass/Vol] 165 mg/dL High 74 - 118 [facility] Interpretation and review of laboratory results Abnormal [facility] POCT GLUCOSE METERon 022 Glucose [Mass/Vol] 122 mg/dL High 74-118 [facility] Comment on above: Result Comment: ACCE PT RESULTS Performed By: #### P [id number] #### [facility] [address] [place] [address] [place] Glucose [Mass/Vol] 133 mg/dL High 74-118 [facility] Comment on above: Result Comment: ACCE PT RESULTS Performed By: #### P [id number] #### [facility] [address] [place] [address] [place] Glucose [Mass/Vol] 137 mg/dL High 74-118 [facility] Comment on above: Result Comment: ACCE PT RESULTS Performed By: #### P [id number] #### [facility] [address] [place] [address] [place] Glucose [Mass/Vol] 165 mg/dL High 74-118 [facility] Comment on above: Result Comment: ACCE PT RESULTS Performed By: #### P [id number] #### [facility] [address] [place] [address] BASIC METABOLIC PANELon 05-04 ANION GAP IN SER/PLAS 10.3 unit/s Normal 8.0-22.0 [facility] Comment on above: Performed By: #### P [id number] #### [facility] [address] [place] [address] [place] Calcium [Mass/Vol] 8.9 mg/dL Normal 8.7-10.4 [facility] Comment on above: Performed By: #### P [id number] #### [facility] [address] [place] [address] [place] Chloride [Moles/Vol] 109 mmol/L Normal 99-109 [facility] Comment on above: Performed By: #### P [id number] #### [facility] [address] [place], [place] [id number] [place] CO2 [Moles/Vol] 26 mmol/L Normal 20-31 [facility] Comment on above: Performed By: #### P [id number] #### [facility] [place] [address] [facility] Creatinine [Mass/Vol] 1.4 mg/dL High 0.7-1.3 [facility] Comment on above: Performed By: #### P [id number] #### [facility] [place] [address] [place] GLOMERULAR FILTRATION RATE ML/MIN/1.73 SQ M.PREDICTED 57.5 mL/min/1.73m*2 Normal [facility] Comment on above: Result Comment: CALCULATION BASED ON THE CHRONIC KIDNEY DISEASE EPIDEMIOLOGY COLLABORATION (CKD-EPI) EQUATION REFIT WITHOUT ADJUSTMENT FOR RACE. GFR LESS THAN 60 mL/min/1.73m2: SUGGESTIVE OF CHRONIC KIDNEY DISEASE. GFR LESS THAN 15 mL/min/1.73m2: SUGGESTIVE OF END STAGE RENAL DISEASE. Performed By: #### P [id number] #### [address] [address] [facility] Glucose [Mass/Vol] 107 mg/dL High 74-106 [facility] Comment on above: Result Comment: NOTE IF THIS IS A FASTING SPECIMEN THE FOLLOWING RANGES APPLY: NORMAL 70 TO 99 mg/dL PREDIABETIC 100 TO 125 mg/dL DIABETIC >= 126 mg/dL Performed By: #### P [id number] #### [address] [address] [place] OSMOLALITY (MOSM/KG) OF SER/PLAS BY CALCULATION 292 mosm/kg Normal 275-305 [facility] Comment on above: Performed By: #### P [id number] #### [facility] [address] [place] [address] [place] Potassium [Moles/Vol] 4.3 mmol/L Normal 3.6-5.1 [facility] Comment on above: Performed By: #### P [id number] #### [facility] [address] [place], [place] [address] Sodium [Moles/Vol] 141 mmol/L Normal 132-146 [facility] Comment on above: Performed By: #### P [id number] #### [facility] [address] [place] [address] [place] Urea nitrogen [Mass/Vol] 42 mg/dL High 9-23 [facility] Comment on above: Performed By: #### P [id number] #### [facility] [address] [place] [address] [place] UREA NITROGEN/CREATININE (MASS RATIO) IN SER/PLAS 30.0 unit/s High 6.0-20.0 [facility] Comment on above: Performed By: #### P [id number] #### [facility] [address] [place], [place] [address] Basic metabolic 1998 panelon 05-19-2022 Anion gap [Moles/Vol] 10.3 mmol/L [facility] Calcium [Mass/Vol] 8.9 mg/dL 8.7 - 10. 4 mg/dL [facility] Chloride [Moles/Vol] 109 mmol/L 99 - 10 9 mmol/L [facility] CO2 [Moles/Vol] 26 mmol/L 20 - 31 mmol/L [facility] Creatinine [Mass/Vol] 1.4 mg/dL High 0.7 - 1.3 mg/dL [facility] GFR/1.73 sq M.predicted MDRD (S/P/Bld) [Vol rate/Area] 57.5 mL/min/{1.73_m2} mL/min/1.73m *2 [facility] Glucose [Mass/Vol] 107 mg/dL High 74 - 106 mg/dL [facility] Interpretation and review of laboratory results Abnormal [facility] Osmolality Calc [Osmolality] 292 mosm/kg 275 - 305 mosm/kg [facility] Potassium [Moles/Vol] 4.3 mmol/L 3.6 - 5.1 mmol/L [facility] Sodium [Moles/Vol] 141 mmol/L 132 - 146 mmol/L [facility] Urea nitrogen [Mass/Vol] 42 mg/dL High 9 - 23 mg/dL [facility] Urea nitrogen/Creatinine [Mass ratio] 30.0 mg/mg High [facility] CBCon 05-19-2022 Erythrocyte distribution width (RBC) [Ratio] 14.5 % Normal 11.5-14.5 [facility] Comment on above: Performed By: #### P [id number] #### [facility] [address] [place] [address] ERYTHROCYTE MEAN CORPUSCULAR HEMOGLOBIN CONCENTRATION (G/DL) BY AUTOMATED 34.4 g/dL Normal 31.0-37.0 [facility] Comment on above: Performed By: #### P [id number] #### [facility] [address] [place] [address] Hematocrit (Bld) [Volume fraction] 26.5 % Low 41.0-53.0 [facility] Comment on above: Performed By: #### P [id number] #### [facility] [address] [place] [address] Hemoglobin (Bld) [Mass/Vol] 9.1 g/dL Low 13.5-17.5 [facility] Comment on above: Performed By: #### P [id number] #### [facility] [address] [place] [address] MCH (RBC) [Entitic mass] 29.4 pg Normal 26.0-34.0 [facility] Comment on above: Performed By: #### P [id number] #### [facility] [address] [place] [address] MCV (RBC) [Entitic vol] 85.7 fL Normal 80.0-100.0 L [facility] Comment on above: Performed By: #### P [id number] #### [facility] [address] [place] [address] Platelet mean volume (Bld) [Entitic vol] 7.0 fL Low 7.4-10.4 [facility] Comment on above: Performed By: #### P [id number] #### [facility] [address] [place] [address] PLATELETS (10*3/UL) IN BLOOD AUTOMATED COUNT 204 10*3/uL Normal 140-440 [facility] Comment on above: Performed By: #### P [id number] #### [facility] [address] [place] [address] RBC (Bld) [#/Vol] 3.10 10*6/uL Low 4.50-5.90 [facility] Comment on above: Performed By: #### P [id number] #### [facility] [address] [place] [address] WBC (Bld) [#/Vol] 7.5 10*3/uL Normal 4.0-11.0 [facility] Comment on above: Performed By: #### P [id number] #### [facility] [address] [place] [address] CBC panel Auto (Bld)on 05-19 Erythrocyte distribution width (RBC) [Ratio] 14.5 % 11.5 - 14.5 % [facility] Hematocrit (Bld) [Volume fraction] 26.5 % Low 41.0 - 53.0 % [facility] Hemoglobin (Bld) [Mass/Vol] 9.1 g/dL Low 13.5 - 17.5 g/dL [facility] Interpretation and review of laboratory results Abnormal [facility] MCH (RBC) [Entitic mass] 29.4 pg 26.0 - 34.0 pg [facility] MCHC (RBC) [Mass/Vol] 34.4 g/dL 31.0 - 37.0 g/dL [facility] MCV (RBC) [Entitic vol] 85.7 fL 80.0 - 100.0 fL [facility] Platelet mean volume (Bld) [Entitic vol] 7.0 fL Low 7.4 - 10.4 fL [facility] Platelets (Bld) [#/Vol] 204 10*3/uL 140 - 440 10*3/uL [facility] RBC (Bld) [#/Vol] 3.10 10*6/uL Low 4.50 - 5.9 0 10*6/uL [facility] WBC (Bld) [#/Vol] 7.5 10*3/uL 4.0 - 11.0 10*3/uL [facility] Glucose baseline (BldC) [Mas s/Vol]on 05-19-2022 Glucose [Mass/Vol] 154 mg/dL High 74 - 118 [facility] Interpretation and review of laboratory results Abnormal [facility] Glucose [Mass/Vol] 179 mg/dL High 74 - 118 [facility] Interpretation and review of laboratory results Abnormal [facility] Glucose [Mass/Vol] 134 mg/dL High 74 - 118 [facility] Interpretation and review of laboratory results Abnormal [facility] POCT GLUCOSE METERon 022 Glucose [Mass/Vol] 154 mg/dL High 74-118 [facility] Comment on above: Result Comment: ACCE PT RESULTS Performed By: #### P [id number] #### [facility] [address] [place] [address] Glucose [Mass/Vol] 179 mg/dL High 74-118 [facility] Comment on above: Result Comment: JEREMIAS ALVAREZ NOTIFY RN Performed By: #### P [id number] #### [facility] [address] [place] [address] Glucose [Mass/Vol] 134 mg/dL High 74-118 [facility] Comment on above: Result Comment: ACCE PT RESULTS Performed By: #### P [id number] #### [facility] [address] [place] [address] [place] Glucose baseline (BldC) [Mas s/Vol]on 05-18-2022 Glucose [Mass/Vol] 147 mg/dL High 74 - 118 [facility] Interpretation and review of laboratory results Abnormal [facility] Glucose [Mass/Vol] 139 mg/dL High 74 - 118 [facility] Interpretation and review of laboratory results Abnormal [facility] Glucose [Mass/Vol] 241 mg/dL High 74 - 118 [facility] Interpretation and review of laboratory results Abnormal [facility] Glucose [Mass/Vol] 122 mg/dL High 74 - 118 [facility] Interpretation and review of laboratory results Abnormal [facility] POCT GLUCOSE METERon 022 Glucose [Mass/Vol] 147 mg/dL High 74-118 [facility] Comment on above: Result Comment: ACCE PT RESULTS Performed By: #### P [id number] #### [facility] [address] [place] [address] [place] Glucose [Mass/Vol] 139 mg/dL High 74-118 [facility] Comment on above: Result Comment: ACCE PT RESULTS Performed By: #### P [id number] #### [facility] [address] [place] [address] [place] Glucose [Mass/Vol] 241 mg/dL [facility] 74-118 [facility] Comment on above: Result Comment: ACCE PT RESULTS Performed By: #### P [id number] #### [facility] [address] [place] [address] [place] Glucose [Mass/Vol] 122 mg/dL [facility] [address] [facility] Comment on above: Result Comment: ACCE PT RESULTS Performed By: #### P [id number] #### [facility] [address] [place] [address] [place] Glucose baseline (BldC) [Mas s/Vol]on 05-17-2022 Glucose [Mass/Vol] 181 mg/dL High 74 - 118 [facility] Interpretation and review of laboratory results Abnormal [facility] Glucose [Mass/Vol] 170 mg/dL High 74 - 118 [facility] Interpretation and review of laboratory results Abnormal [facility] Glucose [Mass/Vol] 195 mg/dL High 74 - 118 [facility] Interpretation and review of laboratory results Abnormal [facility] Glucose [Mass/Vol] 135 mg/dL High 74 - 118 [facility] Interpretation and review of laboratory results Abnormal [facility] POCT GLUCOSE METERon 022 Glucose [Mass/Vol] 181 mg/dL High 74-118 [facility] Comment on above: Result Comment: ACCE PT RESULTS Performed By: #### P [id number] #### [facility] [address] [place] [address] [place] Glucose [Mass/Vol] 170 mg/dL High 74-118 [facility] Comment on above: Result Comment: ACCE PT RESULTS Performed By: #### P [id number] #### [facility] [address] [place] [address] [place] Glucose [Mass/Vol] 195 mg/dL High 74-118 [facility] Comment on above: Result Comment: ACCE PT RESULTS Performed By: #### P [id number] #### [facility] [address] [place] [address] [place] Glucose [Mass/Vol] 135 mg/dL High 74-118 [facility] Comment on above: Result Comment: ACCE PT RESULTS Performed By: #### P [id number] #### [facility] [address] [place] [address] [place] Glucose baseline (BldC) [Mas s/Vol]on 05-16-2022 Glucose [Mass/Vol] 201 mg/dL High 74 - 118 [facility] Interpretation and review of laboratory results Abnormal [facility] Glucose [Mass/Vol] 134 mg/dL High 74 - 118 [facility] Interpretation and review of laboratory results Abnormal [facility] Glucose [Mass/Vol] 185 mg/dL High 74 - 118 [facility] Interpretation and review of laboratory results Abnormal [facility] Glucose [Mass/Vol] 92 mg/dL 74 - 118 [facility] Interpretation and review of laboratory results Normal [facility] POCT GLUCOSE METERon 022 Glucose [Mass/Vol] 201 mg/dL High 74-118 [facility] Comment on above: Result Comment: ACCE PT RESULTS Performed By: #### P [id number] #### [facility] [address] [place] [address] [place] Glucose [Mass/Vol] 134 mg/dL High 74-118 [facility] Comment on above: Result Comment: ACCE PT RESULTS Performed By: #### P [id number] #### [facility] [address] [place] [address] [place] Glucose [Mass/Vol] 185 mg/dL High 74-118 [facility] Comment on above: Result Comment: ACCE PT RESULTS Performed By: #### P [id number] #### [facility] [address] [place] [address] [place] Glucose [Mass/Vol] 92 mg/dL Normal 74-118 [facility] Comment on above: Result Comment: ACCE PT RESULTS Performed By: #### P [id number] #### [facility] [address] [place] [address] [place] Glucose [Mass/Vol] 164 mg/dL High 74-118 [facility] Comment on above: Result Comment: ACCE PT RESULTS Performed By: #### P [id number] #### [facility] [address] [place] [address] [place] Glucose baseline (BldC) [Mas s/Vol]on 05-15-2022 Glucose [Mass/Vol] 164 mg/dL High 74 - 118 [facility] Interpretation and review of laboratory results Abnormal [facility] Glucose [Mass/Vol] 132 mg/dL High 74 - 118 [facility] Interpretation and review of laboratory results Abnormal [facility] Glucose [Mass/Vol] 196 mg/dL High 74 - 118 [facility] Interpretation and review of laboratory results Abnormal [facility] Glucose [Mass/Vol] 110 mg/dL 74 - 118 [facility] Interpretation and review of laboratory results Normal [facility] POCT GLUCOSE METERon 022 Glucose [Mass/Vol] 132 mg/dL High 74-118 [facility] Comment on above: Result Comment: ACCE PT RESULTS Performed By: #### P [id number] #### [facility] [address] [place] [address] [place] Glucose [Mass/Vol] 196 mg/dL High 74-118 [facility] Comment on above: Result Comment: ACCE PT RESULTS Performed By: #### P [id number] #### [facility] [address] [place] [address] [facility] Glucose [Mass/Vol] 110 mg/dL Normal 74-118 [facility] Comment on above: Result Comment: ACCE PT RESULTS Performed By: #### P [id number] #### [facility] [address] [place] [address] BASIC METABOLIC PANELon 05-04 ANION GAP IN SER/PLAS 9.3 unit/s Normal 8.0-22.0 [facility] Comment on above: Performed By: #### P [id number] #### [facility] [address] [place] [id number] Calcium [Mass/Vol] 8.6 mg/dL Low 8.7-10.4 [facility] Comment on above: Performed By: #### P [id number] #### [facility] [address] [place] [address] [facility] Chloride [Moles/Vol] 106 mmol/L Normal 99-109 [facility] Comment on above: Performed By: #### P [id number] #### [facility] [address] [place] [id number] CO2 [Moles/Vol] 26 mmol/L Normal 20-31 [facility] Comment on above: Performed By: #### P [id number] #### [facility] [address] [place] [address] [facility] Creatinine [Mass/Vol] 1.6 mg/dL High 0.7-1.3 [facility] Comment on above: Performed By: #### P [id number] #### [facility] [address] [place] [address] [place] GLOMERULAR FILTRATION RATE ML/MIN/1.73 SQ M.PREDICTED 49.0 mL/min/1.73m*2 Normal [facility] Comment on above: Result Comment: CALCULATION BASED ON THE CHRONIC KIDNEY DISEASE EPIDEMIOLOGY COLLABORATION (CKD-EPI) EQUATION REFIT WITHOUT ADJUSTMENT FOR RACE. GFR LESS THAN 60 mL/min/1.73m2: SUGGESTIVE OF CHRONIC KIDNEY DISEASE. GFR LESS THAN 15 mL/min/1.73m2: SUGGESTIVE OF END STAGE RENAL DISEASE. Performed By: #### P [id number] #### [facility] [address] Glucose [Mass/Vol] 170 mg/dL High 74-106 [facility] Comment on above: Result Comment: NOTE IF THIS IS A FASTING SPECIMEN THE FOLLOWING RANGES APPLY: NORMAL 70 TO 99 mg/dL PREDIABETIC 100 TO 125 mg/dL DIABETIC >= 126 mg/dL Performed By: #### P [id number] #### [facility] [address] [place] [address] [place] OSMOLALITY (MOSM/KG) OF SER/PLAS BY CALCULATION 289 mosm/kg Normal 275-305 [facility] Comment on above: Performed By: #### P [id number] #### [facility] [place] [address] [place] Potassium [Moles/Vol] 4.3 mmol/L Normal 3.6-5.1 [facility] Comment on above: Performed By: #### P [id number] #### [facility] [address] [place] [address] [place] Sodium [Moles/Vol] 137 mmol/L Normal 132-146 [facility] Comment on above: Performed By: #### P [id number] #### [facility] [place] [address] [place] Urea nitrogen [Mass/Vol] 45 mg/dL High 9-23 [facility] Comment on above: Performed By: #### P [id number] #### [facility] [address] [place] [address] [place] UREA NITROGEN/CREATININE (MASS RATIO) IN SER/PLAS 28.1 unit/s High 6.0-20.0 [facility] Comment on above: Performed By: #### P [id number] #### [facility] [address] Basic metabolic 1998 panelon 05-14-2022 Anion gap [Moles/Vol] 9.3 mmol/L [facility] Calcium [Mass/Vol] 8.6 mg/dL Low 8.7 - 10. 4 mg/dL [facility] Chloride [Moles/Vol] 106 mmol/L 99 - 10 9 mmol/L [facility] CO2 [Moles/Vol] 26 mmol/L 20 - 31 mmol/L [facility] Creatinine [Mass/Vol] 1.6 mg/dL High 0.7 - 1.3 mg/dL [facility] GFR/1.73 sq M.predicted MDRD (S/P/Bld) [Vol rate/Area] 49.0 mL/min/{1.73_m2} mL/min/1.73m *2 [facility] Glucose [Mass/Vol] 170 mg/dL High 74 - 106 mg/dL [facility] Interpretation and review of laboratory results Abnormal [facility] Osmolality Calc [Osmolality] 289 mosm/kg 275 - 305 mosm/kg [facility] Potassium [Moles/Vol] 4.3 mmol/L 3.6 - 5.1 mmol/L [facility] Sodium [Moles/Vol] 137 mmol/L 132 - 146 mmol/L [facility] Urea nitrogen [Mass/Vol] 45 mg/dL High 9 - 23 mg/dL [facility] Urea nitrogen/Creatinine [Mass ratio] 28.1 mg/mg High [facility] Glucose baseline (BldC) [Mas s/Vol]on 05-14-2022 Glucose [Mass/Vol] 225 mg/dL High 74 - 118 [facility] Interpretation and review of laboratory results Abnormal [facility] Glucose [Mass/Vol] 136 mg/dL High 74 - 118 [facility] Interpretation and review of laboratory results Abnormal [facility] Glucose [Mass/Vol] 168 mg/dL High 74 - 118 [facility] Interpretation and review of laboratory results Abnormal [facility] Glucose [Mass/Vol] 138 mg/dL High 74 - 118 [facility] Interpretation and review of laboratory results Abnormal [facility] POCT GLUCOSE METERon 022 Glucose [Mass/Vol] 225 mg/dL High 74-118 [facility] Comment on above: Result Comment: ACCE PT RESULTS Performed By: #### P [id number] #### [facility] [address] [place] [address] Glucose [Mass/Vol] 136 mg/dL High [address] [place] [address] Comment on above: Result Comment: ACCE PT RESULTS Performed By: #### P [id number] #### [facility] [address] [place] [address] [place] Glucose [Mass/Vol] 168 mg/dL High [address] [place] [address] Comment on above: Result Comment: ACCE PT RESULTS Performed By: #### P [id number] #### [facility] [address] [place] [address] [place] Glucose [Mass/Vol] 138 mg/dL [address] Comment on above: Result Comment: ACCE PT RESULTS Performed By: #### P [id number] #### [facility] [address] [place] [address] [place] Anti-neutrophilic cytoplasmi c antibodyon 05-13-2022 Neutrophil cytoplasmic Ab Ql (S) Negative NEGATIVE [facility] BASIC METABOLIC PANELon 05-04 ANION GAP IN SER/PLAS 12.7 unit/s Normal 8.0-22.0 [facility] Comment on above: Performed By: #### P [id number] #### [facility] [address] [place] [address] Calcium [Mass/Vol] 8.9 mg/dL Normal 8.7-10.4 [facility] Comment on above: Performed By: #### P [id number] #### [facility] [address] [place] [address] [place] Chloride [Moles/Vol] 104 mmol/L Normal 99-109 [facility] Comment on above: Performed By: #### P [id number] #### [facility] [address] [place] [address] [place] CO2 [Moles/Vol] 26 mmol/L Normal 20-31 [facility] Comment on above: Performed By: #### P [id number] #### [facility] [address] [place] [address] [facility] Creatinine [Mass/Vol] 1.5 mg/dL High 0.7-1.3 [facility] Comment on above: Performed By: #### P [id number] #### [facility] [address] [place] [address] [place] GLOMERULAR FILTRATION RATE ML/MIN/1.73 SQ M.PREDICTED 53.0 mL/min/1.73m*2 Normal [facility] Comment on above: Result Comment: CALCULATION BASED ON THE CHRONIC KIDNEY DISEASE EPIDEMIOLOGY COLLABORATION (CKD-EPI) EQUATION REFIT WITHOUT ADJUSTMENT FOR RACE. GFR LESS THAN 60 mL/min/1.73m2: SUGGESTIVE OF CHRONIC KIDNEY DISEASE. GFR LESS THAN 15 mL/min/1.73m2: SUGGESTIVE OF END STAGE RENAL DISEASE. Performed By: #### P [id number] #### [facility] [address] [place] [address] [place] Glucose [Mass/Vol] 187 mg/dL High 74-106 [facility] Comment on above: Result Comment: NOTE IF THIS IS A FASTING SPECIMEN THE FOLLOWING RANGES APPLY: NORMAL 70 TO 99 mg/dL PREDIABETIC 100 TO 125 mg/dL DIABETIC >= 126 mg/dL Performed By: #### P [id number] #### [facility] [place] [address] [place] OSMOLALITY (MOSM/KG) OF SER/PLAS BY CALCULATION 291 mosm/kg Normal 275-305 [facility] Comment on above: Performed By: #### P [id number] #### [facility] [address] Potassium [Moles/Vol] 4.7 mmol/L Normal 3.6-5.1 [facility] Comment on above: Performed By: #### P [id number] #### [facility] [address] [place] [address] Sodium [Moles/Vol] 138 mmol/L Normal 132-146 [facility] Comment on above: Performed By: #### P [id number] #### [facility] [address] [place] [address] Urea nitrogen [Mass/Vol] 42 mg/dL High 9-23 [facility] Comment on above: Performed By: #### P [id number] #### [facility] [address] [place] [address] UREA NITROGEN/CREATININE (MASS RATIO) IN SER/PLAS 28.0 unit/s High 6.0-20.0 [facility] Comment on above: Performed By: #### P [id number] #### [facility] [address] [place] [address] Basic metabolic 1998 panelon 05-13-2022 Anion gap [Moles/Vol] 12.7 mmol/L [facility] Calcium [Mass/Vol] 8.9 mg/dL 8.7 - 10. 4 mg/dL [facility] Chloride [Moles/Vol] 104 mmol/L 99 - 10 9 mmol/L [facility] CO2 [Moles/Vol] 26 mmol/L 20 - 31 mmol/L [facility] Creatinine [Mass/Vol] 1.5 mg/dL High 0.7 - 1.3 mg/dL [facility] GFR/1.73 sq M.predicted MDRD (S/P/Bld) [Vol rate/Area] 53.0 mL/min/{1.73_m2} mL/min/1.73m *2 [facility] Glucose [Mass/Vol] 187 mg/dL High 74 - 106 mg/dL [facility] Interpretation and review of laboratory results Abnormal [facility] Osmolality Calc [Osmolality] 291 mosm/kg 275 - 305 mosm/kg [facility] Potassium [Moles/Vol] 4.7 mmol/L 3.6 - 5.1 mmol/L [facility] Sodium [Moles/Vol] 138 mmol/L 132 - 146 mmol/L [facility] Urea nitrogen [Mass/Vol] 42 mg/dL High 9 - 23 mg/dL [facility] Urea nitrogen/Creatinine [Mass ratio] 28.0 mg/mg High [facility] CBC W Auto Differential pane l (Bld)on 05-13-2022 Basophils (Bld) [#/Vol] 0.0 10*3/uL 0.0 - 0.1 10*3/uL [facility] Basophils/100 WBC (Bld) 0.3 % 0.0 - 1.0 % [facility] Eosinophils (Bld) [#/Vol] 0.2 10*3/uL 0.1 - 0.3 10*3/uL [facility] Eosinophils/100 WBC (Bld) 3.8 % 1.0 - 4.0 % [facility] Erythrocyte distribution width (RBC) [Ratio] 14.6 % High 11.5 - 14.5 % [facility] Hematocrit (Bld) [Volume fraction] 27.8 % Low 41.0 - 53.0 % [facility] Hemoglobin (Bld) [Mass/Vol] 9.5 g/dL Low 13.5 - 17.5 g/dL [facility] Interpretation and review of laboratory results Abnormal [facility] Lymphocytes (Bld) [#/Vol] 1.1 10*3/uL 1.0 - 3.5 10*3/uL [facility] Lymphocytes/100 WBC (Bld) 17.3 % Low 24.0 - 44.0 % [facility] MCH (RBC) [Entitic mass] 29.6 pg 26.0 - 34.0 pg [facility] MCHC (RBC) [Mass/Vol] 34.2 g/dL 31.0 - 37.0 g/dL [facility] MCV (RBC) [Entitic vol] 86.5 fL 80.0 - 100.0 fL [facility] Monocytes (Bld) [#/Vol] 0.8 10*3/uL 0.1 - 1.0 10*3/uL [facility] Monocytes/100 WBC (Bld) 12.0 % High 1.0 - 7.0 % [facility] Neutrophils (Bld) [#/Vol] 4.3 10*3/uL 1.6 - 7.5 10*3/uL [facility] Neutrophils/100 WBC (Bld) 66.6 % 36.0 - 71.0 % [facility] Platelet mean volume (Bld) [Entitic vol] 6.8 fL Low 7.4 - 10.4 fL [facility] Platelets (Bld) [#/Vol] 243 10*3/uL 140 - 440 10*3/uL [facility] RBC (Bld) [#/Vol] 3.22 10*6/uL Low 4.50 - 5.9 0 10*6/uL [facility] WBC (Bld) [#/Vol] 6.4 10*3/uL 4.0 - 11.0 10*3/uL [facility] CBC WITH AUTO DIFFERENTIALon 05-13-2022 Basophils (Bld) [#/Vol] 0.0 10*3/uL Normal 0.0-0.1 [facility] Comment on above: Performed By: #### P [id number] #### [facility] [address] [place] [address] [place] Basophils/100 WBC (Bld) 0.3 % Normal 0.0-1.0 L [facility] Comment on above: Performed By: #### P [id number] #### [facility] [place] [address] [facility] Eosinophils (Bld) [#/Vol] 0.2 10*3/uL Normal 0.1-0.3 [facility] Comment on above: Performed By: #### P [id number] #### [facility] [address] [place] [address] Eosinophils/100 WBC (Bld) 3.8 % Normal 1.0-4.0 [facility] Comment on above: Performed By: #### P [id number] #### [facility] [address] [place] [address] Erythrocyte distribution width (RBC) [Ratio] 14.6 % High 11.5-14.5 [facility] Comment on above: Performed By: #### P [id number] #### [facility] [address] [place] [address] ERYTHROCYTE MEAN CORPUSCULAR HEMOGLOBIN CONCENTRATION (G/DL) BY AUTOMATED 34.2 g/dL Normal 31.0-37.0 [facility] Comment on above: Performed By: #### P [id number] #### [facility] [address] [place] [address] Hematocrit (Bld) [Volume fraction] 27.8 % Low 41.0-53.0 [facility] Comment on above: Performed By: #### P [id number] #### [facility] [address] [place] [address] Hemoglobin (Bld) [Mass/Vol] 9.5 g/dL Low 13.5-17.5 [facility] Comment on above: Performed By: #### P [id number] #### [facility] [address] [place] [address] Lymphocytes (Bld) [#/Vol] 1.1 10*3/uL Normal 1.0-3.5 [facility] Comment on above: Performed By: #### P [id number] #### [facility] [address] [place] [address] Lymphocytes/100 WBC (Bld) 17.3 % Low 24.0-44.0 [facility] Comment on above: Performed By: #### P [id number] #### [facility] [address] [place] [address] MCH (RBC) [Entitic mass] 29.6 pg Normal 26.0-34.0 [facility] Comment on above: Performed By: #### P [id number] #### [facility] [address] [place] [address] MCV (RBC) [Entitic vol] 86.5 fL Normal 80.0-100.0 L [facility] Comment on above: Performed By: #### P [id number] #### [facility] [address] [place] [address] Monocytes (Bld) [#/Vol] 0.8 10*3/uL Normal 0.1-1.0 [facility] Comment on above: Performed By: #### P [id number] #### [facility] [address] [place] [address] Monocytes/100 WBC (Bld) 12.0 % High 1.0-7.0 L [facility] Comment on above: Performed By: #### P [id number] #### [facility] [address] [place] [address] Neutrophils (Bld) [#/Vol] 4.3 10*3/uL Normal 1.6-7.5 [facility] Comment on above: Performed By: #### P [id number] #### [facility] [address] [place] [address] Neutrophils/100 WBC (Bld) 66.6 % Normal 36.0-71.0 [facility] Comment on above: Performed By: #### P [id number] #### [facility] [address] [place] [address] Platelet mean volume (Bld) [Entitic vol] 6.8 fL Low 7.4-10.4 [facility] Comment on above: Performed By: #### P [id number] #### [facility] [address] [place] [address] [place] PLATELETS (10*3/UL) IN BLOOD AUTOMATED COUNT 243 10*3/uL Normal 140-440 [facility] Comment on above: Performed By: #### P [id number] #### [facility] [address] [place] [address] [place] RBC (Bld) [#/Vol] 3.22 10*6/uL Low 4.50-5.90 [facility] Comment on above: Performed By: #### P [id number] #### [facility] [address] [place] [id number] WBC (Bld) [#/Vol] 6.4 10*3/uL Normal 4.0-11.0 [facility] Comment on above: Performed By: #### P [id number] #### [facility] [address] [place] [address] Glucose baseline (BldC) [Mas s/Vol]on 05-13-2022 Glucose [Mass/Vol] 186 mg/dL High 74 - 118 [facility] Interpretation and review of laboratory results Abnormal [facility] Glucose [Mass/Vol] 97 mg/dL 74 - 118 [facility] Interpretation and review of laboratory results Normal [facility] Glucose [Mass/Vol] 253 mg/dL High 74 - 118 [facility] Interpretation and review of laboratory results Abnormal [facility] Glucose [Mass/Vol] 80 mg/dL 74 - 118 [facility] Interpretation and review of laboratory results Normal [facility] POCT GLUCOSE METERon 022 Glucose [Mass/Vol] 186 mg/dL High 74-118 [facility] Comment on above: Result Comment: ACCE PT RESULTS Performed By: #### P [id number] #### [facility] [address] [place] [id number] Glucose [Mass/Vol] 97 mg/dL Normal 74-118 [facility] Comment on above: Result Comment: ACCE PT RESULTS Performed By: #### P [id number] #### [facility] [address] [place] [address] [facility] Glucose [Mass/Vol] 253 mg/dL High 74-118 [facility] Comment on above: Result Comment: ACCE PT RESULTS Performed By: #### P [id number] #### [facility] [address] [place] [address] [place] Glucose [Mass/Vol] 80 mg/dL Normal 74-118 [facility] Comment on above: Result Comment: ACCE PT RESULTS Performed By: #### P [id number] #### [facility] [address] [place] [address] [place] Glucose [Mass/Vol] 165 mg/dL High 74-118 [facility] Comment on above: Result Comment: ACCE PT RESULTS Performed By: #### P [id number] #### [facility] [address] [place] [address] [place] POCT GLUCOSE METERon 022 Glucose [Mass/Vol] 96 mg/dL Normal 74-118 [facility] Comment on above: Result Comment: ACCE PT RESULTS Performed By: #### P [id number] #### [facility] [address] [place] [address] [place] Glucose [Mass/Vol] 163 mg/dL High 74-118 [facility] Comment on above: Result Comment: ACCE PT RESULTS Performed By: #### P [id number] #### [facility] [address] [place] [address] [place] Glucose [Mass/Vol] 101 mg/dL Normal 74-[address] [place] [address] Comment on above: Result Comment: ACCE PT RESULTS Performed By: #### P [id number] #### [facility] [address] [place] [address] [place] Glucose [Mass/Vol] 195 mg/dL High 74-118 [facility] Comment on above: Result Comment: ACCE PT RESULTS Performed By: #### P [id number] #### [facility] [address] [place] [address] [place] POCT GLUCOSE METERon 022 Glucose [Mass/Vol] 139 mg/dL High 74-118 [facility] Comment on above: Result Comment: ACCE PT RESULTS Performed By: #### P [id number] #### [facility] [address] [place] [address] [place] Glucose [Mass/Vol] 166 mg/dL High 74-118 [facility] Comment on above: Result Comment: ACCE PT RESULTS Performed By: #### P [id number] #### [facility] [address] [place] [address] [place] Glucose [Mass/Vol] 133 mg/dL High 74-118 [facility] Comment on above: Result Comment: ACCE PT RESULTS Performed By: #### P [id number] #### [facility] [address] [place] [address] [facility] Glucose [Mass/Vol] 176 mg/dL High 74-118 [facility] Comment on above: Result Comment: ACCE PT RESULTS Performed By: #### P [id number] #### [facility] [address] [place], [place] [address] BASIC METABOLIC PANELon 07-0 -2021 ANION GAP IN SER/PLAS 8.5 unit/s Normal 8.0-22.0 [facility] Comment on above: Performed By: #### P [id number] #### [facility] [address] [place] [address] [facility] Calcium [Mass/Vol] 8.9 mg/dL Normal 8.7-10.4 [facility] Comment on above: Performed By: #### P [id number] #### [facility] [address] [place] [address] [place] Chloride [Moles/Vol] 107 mmol/L Normal 99-109 [facility] Comment on above: Performed By: #### P [id number] #### [facility] [address] [place] [address] [facility] CO2 [Moles/Vol] 28 mmol/L Normal 20-31 [facility] Comment on above: Performed By: #### P [id number] #### [facility] [address] [place] [address] [place] Creatinine [Mass/Vol] 1.6 mg/dL High 0.7-1.3 [facility] Comment on above: Performed By: #### P [id number] #### [facility] [address] [place] [address] [place] GLOMERULAR FILTRATION RATE ML/MIN/1.73 SQ M.PREDICTED 49.0 mL/min/1.73m*2 Normal [facility] Comment on above: Result Comment: CALCULATION BASED ON THE CHRONIC KIDNEY DISEASE EPIDEMIOLOGY COLLABORATION (CKD-EPI) EQUATION REFIT WITHOUT ADJUSTMENT FOR RACE. GFR LESS THAN 60 mL/min/1.73m2: SUGGESTIVE OF CHRONIC KIDNEY DISEASE. GFR LESS THAN 15 mL/min/1.73m2: SUGGESTIVE OF END STAGE RENAL DISEASE. Performed By: #### P [id number] #### [facility] [address] Glucose [Mass/Vol] 83 mg/dL Normal 74-106 [facility] Comment on above: Result Comment: NOTE IF THIS IS A FASTING SPECIMEN THE FOLLOWING RANGES APPLY: NORMAL 70 TO 99 mg/dL PREDIABETIC 100 TO 125 mg/dL DIABETIC >= 126 mg/dL Performed By: #### P [id number] #### [facility] [address] [place] [address] [place] OSMOLALITY (MOSM/KG) OF SER/PLAS BY CALCULATION 289 mosm/kg Normal 275-305 [facility] Comment on above: Performed By: #### P [id number] #### [facility] [address] [place] [address] [place] Potassium [Moles/Vol] 4.5 mmol/L Normal 3.6-5.1 [facility] Comment on above: Performed By: #### P [id number] #### [facility] [place] [address] [place] Sodium [Moles/Vol] 139 mmol/L Normal 132-146 [facility] Comment on above: Performed By: #### P [id number] #### [facility] [place] [address] [place] Urea nitrogen [Mass/Vol] 48 mg/dL High 9-23 [facility] Comment on above: Performed By: #### P [id number] #### [facility] [address] [place] [address] [place] UREA NITROGEN/CREATININE (MASS RATIO) IN SER/PLAS 30.0 unit/s High 6.0-20.0 [facility] Comment on above: Performed By: #### P [id number] #### [facility] [address] [place] [address] POCT GLUCOSE METERon 022 Glucose [Mass/Vol] 98 mg/dL Normal 74-118 [facility] Comment on above: Result Comment: ACCE PT RESULTS Performed By: #### P [id number] #### [facility] [address] [place] [address] [place] Glucose [Mass/Vol] 154 mg/dL High 74-118 [facility] Comment on above: Result Comment: ACCE PT RESULTS Performed By: #### P [id number] #### [facility] [address] [place] [address] [place] Glucose [Mass/Vol] 89 mg/dL Normal 74-118 [facility] Comment on above: Result Comment: ACCE PT RESULTS Performed By: #### P [id number] #### [facility] [address] [place] [address] POCT GLUCOSE METERon 022 Glucose [Mass/Vol] 110 mg/dL Normal 74-118 [facility] Comment on above: Result Comment: ACCE PT RESULTS Performed By: #### P [id number] #### [facility] [address] [place] [address] [place] Glucose [Mass/Vol] 132 mg/dL High 74-118 [facility] Comment on above: Result Comment: ACCE PT RESULTS Performed By: #### L [id number] #### [facility] [address] [place] [address] [place] Glucose [Mass/Vol] 171 mg/dL High 74-118 [facility] Comment on above: Result Comment: ACCE PT RESULTS Performed By: #### L [id number] #### [facility] [address] [place] [address] [place] Glucose [Mass/Vol] 104 mg/dL Normal 74-118 [facility] Comment on above: Result Comment: ACCE PT RESULTS Performed By: #### L [id number] #### [facility] [address] [place] [address] [place] POCT GLUCOSE METERon 022 Glucose [Mass/Vol] 180 mg/dL High 74-118 [facility] Comment on above: Result Comment: ACCE PT RESULTS Performed By: #### L [id number] #### [facility] [address] [place] [address] [place] Glucose [Mass/Vol] 120 mg/dL High 74-118 [facility] Comment on above: Result Comment: ACCE PT RESULTS Performed By: #### L [id number] #### [facility] [address] [place] [address] [place] Glucose [Mass/Vol] 122 mg/dL High 74-118 [facility] Comment on above: Result Comment: ACCE PT RESULTS Performed By: #### L [id number] #### [facility] [address] [place] [address] [place] Glucose [Mass/Vol] 126 mg/dL High 74-118 [facility] Comment on above: Result Comment: ACCE PT RESULTS Performed By: #### L [id number] #### [facility] [address] [place] [address] [place] POCT GLUCOSE METERon 022 Glucose [Mass/Vol] 155 mg/dL High 74-118 [facility] Comment on above: Result Comment: ACCE PT RESULTS Performed By: #### L [id number] #### [facility] [address] [place] [address] [place] Glucose [Mass/Vol] 139 mg/dL High 74-118 [facility] Comment on above: Result Comment: ACCE PT RESULTS Performed By: #### L [id number] #### [facility] [address] [place] [address] [place] Glucose [Mass/Vol] 115 mg/dL Normal 74-118 [facility] Comment on above: Result Comment: ACCE PT RESULTS Performed By: #### L [id number] #### [facility] [address] [place] [address] Glucose [Mass/Vol] 92 mg/dL Normal 74-118 [facility] Comment on above: Result Comment: ACCE PT RESULTS Performed By: #### L [id number] #### [facility] [address] [place] [address] C-REACTIVE PROTEINon 022 C REACTIVE PROTEIN (MG/DL) IN SER/PLAS <0.4 Normal <=1.0 [facility] Comment on above: Performed By: #### L [id number] #### [facility] [address] [place] [address] COMPREHENSIVE METABOLIC PANE Jerzy 05-06-2022 Albumin [Mass/Vol] 4.0 g/dL Normal 3.2-4.8 [facility] Comment on above: Performed By: #### L [id number] #### [facility] [address] [place] [address] ALBUMIN/GLOBULIN (G/G RATIO) IN SER/PLAS 1.3 unit/s Normal 0.9-2.0 [facility] Comment on above: Performed By: #### L [id number] #### [facility] [address] [place] [address] ALP [Catalytic activity/Vol] 108 U/L Normal 40-121 [facility] Comment on above: Performed By: #### L [id number] #### [facility] [address] [place] [address] ALT [Catalytic activity/Vol] 11 U/L Normal 11-50 [facility] Comment on above: Performed By: #### L [id number] #### [facility] [address] [place] [address] [place] ANION GAP IN SER/PLAS 15.7 unit/s Normal 8.0-22.0 [facility] Comment on above: Performed By: #### L [id number] #### [facility] [address] [place] [address] AST [Catalytic activity/Vol] 15 U/L Normal <=39 [facility] Comment on above: Performed By: #### L [id number] #### [facility] [address] [place] [address] AST/ALT RATIO 1.4 unit/s Normal 0.0-2.0 [facility] Comment on above: Performed By: #### L [id number] #### [facility] [address] [place] [address] Bilirubin [Mass/Vol] 0.2 mg/dL Normal 0.2-1.2 [facility] Comment on above: Performed By: #### L [id number] #### [facility] [address] [place] [address] Calcium [Mass/Vol] 8.9 mg/dL Normal 8.7-10.4 [facility] Comment on above: Performed By: #### L [id number] #### [facility] [address] [place] [address] Chloride [Moles/Vol] 105 mmol/L Normal 99-109 [facility] Comment on above: Performed By: #### L [id number] #### [facility] [address] [place] [address] CO2 [Moles/Vol] 24 mmol/L Normal 20-31 [facility] Comment on above: Performed By: #### L [id number] #### [facility] [address] [place] [address] Creatinine [Mass/Vol] 1.6 mg/dL High 0.7-1.3 [facility] Comment on above: Performed By: #### L [id number] #### [facility] [address] [place] [address] Globulin (S) [Mass/Vol] 3.1 g/dL Normal L [facility] Comment on above: Performed By: #### L [id number] #### [facility] [address] [place] [address] GLOMERULAR FILTRATION RATE ML/MIN/1.73 SQ M.PREDICTED 49.0 mL/min/1.73m*2 Normal [facility] Comment on above: Result Comment: CALCULATION BASED ON THE CHRONIC KIDNEY DISEASE EPIDEMIOLOGY COLLABORATION (CKD-EPI) EQUATION REFIT WITHOUT ADJUSTMENT FOR RACE. GFR LESS THAN 60 mL/min/1.73m2: SUGGESTIVE OF CHRONIC KIDNEY DISEASE. GFR LESS THAN 15 mL/min/1.73m2: SUGGESTIVE OF END STAGE RENAL DISEASE. Performed By: #### L [id number] #### [address] Glucose [Mass/Vol] 136 mg/dL High 74-106 [facility] Comment on above: Result Comment: NOTE IF THIS IS A FASTING SPECIMEN THE FOLLOWING RANGES APPLY: NORMAL 70 TO 99 mg/dL PREDIABETIC 100 TO 125 mg/dL DIABETIC >= 126 mg/dL Performed By: #### L [id number] #### [address] OSMOLALITY (MOSM/KG) OF SER/PLAS BY CALCULATION 292 mosm/kg Normal 275-305 [facility] Comment on above: Performed By: #### L [id number] #### [address] [id number] Potassium [Moles/Vol] 4.7 mmol/L Normal 3.6-5.1 [facility] Comment on above: Performed By: #### L [id number] #### [address] [address] [facility] Protein [Mass/Vol] 7.1 g/dL Normal 5.7-8.2 [facility] Comment on above: Performed By: #### L [id number] #### [address] [address] [place] Sodium [Moles/Vol] 140 mmol/L Normal 132-146 [facility] Comment on above: Performed By: #### L [id number] #### [facility] [address] Urea nitrogen [Mass/Vol] 43 mg/dL High 9-23 [facility] Comment on above: Performed By: #### L [id number] #### [facility] [address] [place] [address] [place] UREA NITROGEN/CREATININE (MASS RATIO) IN SER/PLAS 26.9 unit/s High 6.0-20.0 [facility] Comment on above: Performed By: #### L [id number] #### [facility] [address] HEAD WO CONTRASTon 2021 CT HEAD WO CONTRAST CT HEAD WO CONTRAST CT BRAIN WITHOUT CONTRAST: CLINICAL INDICATION: Headache. COMPARISON: None available in PACS. TECHNIQUE: Helical axial CT images were obtained through the brain from the skull base to the vertex without contrast. All CT scans at this facility use dose modulation, iterative reconstruction, and weight based dosing when appropriate to reduce radiation dose to as low as reasonably achievable. FINDINGS: VENTRICLES AND SULCI: The ventricles, cortical sulci and cisternal spaces are unremarkable. BRAIN: No acute intracranial hemorrhage, mass, mass effect or midline shift is identified. Kinney-white matter differentiation is preserved. No large, well established, hypoattenuating acute territorial infarct is identified. EXTRA-AXIAL SPACES: There are no extra-axial collections. There is enlargement of the subarachnoid space in the inferior posterior portions of the cranial fossa suggestive of a michelle cisterna magnum. CALVARIUM: The calvarium is intact. FACE: The visualized paranasal sinuses and mastoid air cells are clear. Orbits are unremarkable. SOFT TISSUES: The extracranial soft tissues are unremarkable. IMPRESSION: 1. No acute intracranial process is identified. Normal [facility] POCT GLUCOSE METERon 022 Glucose [Mass/Vol] 143 mg/dL High 74-118 [facility] Comment on above: Result Comment: ACCE PT RESULTS Performed By: #### L [id number] #### [facility] [address] [place] [address] [place] Glucose [Mass/Vol] 136 mg/dL High 74-118 [facility] Comment on above: Result Comment: ACCE PT RESULTS Performed By: #### L [id number] #### [facility] [address] [place] [address] [place] Glucose [Mass/Vol] 199 mg/dL High 74-118 [facility] Comment on above: Result Comment: ACCE PT RESULTS Performed By: #### L [id number] #### [facility] [address] [place] [address] [place] Glucose [Mass/Vol] 131 mg/dL High 74-118 [facility] Comment on above: Result Comment: ACCE PT RESULTS Performed By: #### L [id number] #### [facility] [address] [place] [address] [place] SEDIMENTATION RATE, AUTOMATE Don 05-06-2022 ERYTHROCYTE SEDIMENTATION RATE 70 mm High 19 [facility] Comment on above: Performed By: #### L [id number] #### [facility] [address] [place] [address] [facility] POCT GLUCOSE METERon 022 Glucose [Mass/Vol] 159 mg/dL High 74-118 [facility] Comment on above: Result Comment: ACCE PT RESULTS Performed By: #### L [id number] #### [facility] [address] [place] [address] [place] Glucose [Mass/Vol] 127 mg/dL High 74-118 [facility] Comment on above: Result Comment: ACCE PT RESULTS Performed By: #### L [id number] #### [facility] [address] [place] [address] [place] Glucose [Mass/Vol] 147 mg/dL High 74-118 [facility] Comment on above: Result Comment: ACCE PT RESULTS Performed By: #### L [id number] #### [facility] [address] [place] [address] [place] Glucose [Mass/Vol] 128 mg/dL High 74-118 [facility] Comment on above: Result Comment: ACCE PT RESULTS Performed By: #### L [id number] #### [facility] [address] [place] [address] [place] POCT GLUCOSE METERon 022 Glucose [Mass/Vol] 149 mg/dL High 74-118 [facility] Comment on above: Result Comment: ACCE PT RESULTS Performed By: #### L [id number] #### [facility] [address] [place] [address] [place] Glucose [Mass/Vol] 127 mg/dL High 74-118 [facility] Comment on above: Result Comment: ACCE PT RESULTS Performed By: #### L [id number] #### [facility] [address] [place] [address] [place] Glucose [Mass/Vol] 134 mg/dL High 74-118 [facility] Comment on above: Result Comment: ACCE PT RESULTS Performed By: #### L [id number] #### [facility] [address] [place] [address] [place] Glucose [Mass/Vol] 111 mg/dL Normal 74-118 [facility] Comment on above: Result Comment: ACCE PT RESULTS Performed By: #### L [id number] #### [facility] [address] [place] [address] POCT GLUCOSE METERon 022 Glucose [Mass/Vol] 113 mg/dL Normal 74-118 [facility] Comment on above: Result Comment: ACCE PT RESULTS Performed By: #### L [id number] #### [facility] [address] [place] [address] [place] Glucose [Mass/Vol] 137 mg/dL High 74-118 [facility] Comment on above: Result Comment: ACCE PT RESULTS Performed By: #### L [id number] #### [facility] [address] [place] [address] [place] Glucose [Mass/Vol] 125 mg/dL High 74-118 [facility] Comment on above: Result Comment: ACCE PT RESULTS Performed By: #### P [id number] #### [facility] [address] [place] [address] [place] Glucose [Mass/Vol] 111 mg/dL Normal 74-118 [facility] Comment on above: Result Comment: ACCE PT RESULTS Performed By: #### P [id number] #### [facility] [address] [place] [address] Glucose [Mass/Vol] 185 mg/dL High 74-118 [facility] Comment on above: Result Comment: ACCE PT RESULTS Performed By: #### P [id number] #### [facility] [address] [place] [address] Glucose [Mass/Vol] 245 mg/dL High 74-118 [facility] Comment on above: Result Comment: ACCE PT RESULTS Performed By: #### P [id number] #### [facility] [address] [place] [address] BASIC METABOLIC PANELon 04-05 ANION GAP IN SER/PLAS 9.0 unit/s Normal 8.0-22.0 [facility] Comment on above: Performed By: #### L [id number] #### [facility] [address] [place] [address] Calcium [Mass/Vol] 9.1 mg/dL Normal 8.7-10.4 [facility] Comment on above: Performed By: #### L [id number] #### [facility] [address] [place] [address] Chloride [Moles/Vol] 106 mmol/L Normal 99-109 [facility] Comment on above: Performed By: #### L [id number] #### [facility] [address] [place] [address] CO2 [Moles/Vol] 30 mmol/L Normal 20-31 [facility] Comment on above: Performed By: #### L [id number] #### [facility] [address] [place] [address] Creatinine [Mass/Vol] 1.3 mg/dL Normal 0.7-1.3 [facility] Comment on above: Performed By: #### L [id number] #### [facility] [address] [place] [address] GLOMERULAR FILTRATION RATE ML/MIN/1.73 SQ M.PREDICTED 62.9 mL/min/1.73m*2 Normal [facility] Comment on above: Result Comment: CALCULATION BASED ON THE CHRONIC KIDNEY DISEASE EPIDEMIOLOGY COLLABORATION (CKD-EPI) EQUATION REFIT WITHOUT ADJUSTMENT FOR RACE. GFR LESS THAN 60 mL/min/1.73m2: SUGGESTIVE OF CHRONIC KIDNEY DISEASE. GFR LESS THAN 15 mL/min/1.73m2: SUGGESTIVE OF END STAGE RENAL DISEASE. Performed By: #### L [id number] #### [facility] [address] [place] [address] [facility] Glucose [Mass/Vol] 127 mg/dL High 74-106 [facility] Comment on above: Result Comment: NOTE IF THIS IS A FASTING SPECIMEN THE FOLLOWING RANGES APPLY: NORMAL 70 TO 99 mg/dL PREDIABETIC 100 TO 125 mg/dL DIABETIC >= 126 mg/dL Performed By: #### L [id number] #### [place] [address] [place] [address] [place] OSMOLALITY (MOSM/KG) OF SER/PLAS BY CALCULATION 291 mosm/kg Normal 275-305 [facility] Comment on above: Performed By: #### L [id number] #### [facility] [address] [place] [address] [place] Potassium [Moles/Vol] 5.0 mmol/L Normal 3.6-5.1 [facility] Comment on above: Performed By: #### L [id number] #### [facility] [address] [place] [address] [place] Sodium [Moles/Vol] 140 mmol/L Normal 132-146 [facility] Comment on above: Performed By: #### L [id number] #### [facility] [address] [place] [address] Urea nitrogen [Mass/Vol] 40 mg/dL High 9-23 [facility] Comment on above: Performed By: #### L [id number] #### [facility] [address] [place] [address] UREA NITROGEN/CREATININE (MASS RATIO) IN SER/PLAS 30.8 unit/s High 6.0-20.0 [facility] Comment on above: Performed By: #### L [id number] #### [facility] [address] [place] [address] CBC WITH AUTO DIFFERENTIALon 05-02-2022 Basophils (Bld) [#/Vol] 0.0 10*3/uL Normal 0.0-0.1 [facility] Comment on above: Performed By: #### L [id number] #### [facility] [address] [place] [address] Basophils/100 WBC (Bld) 0.2 % Normal 0.0-1.0 [facility] Comment on above: Performed By: #### L [id number] #### [facility] [address] [place] [address] Eosinophils (Bld) [#/Vol] 0.3 10*3/uL Normal 0.1-0.3 [facility] Comment on above: Performed By: #### L [id number] #### [facility] [address] [place] [address] Eosinophils/100 WBC (Bld) 2.7 % Normal 1.0-4.0 [facility] Comment on above: Performed By: #### L [id number] #### [facility] [address] [place] [address] Erythrocyte distribution width (RBC) [Ratio] 14.7 % High 11.5-14.5 [facility] Comment on above: Performed By: #### L [id number] #### [facility] [address] [place] [address] ERYTHROCYTE MEAN CORPUSCULAR HEMOGLOBIN CONCENTRATION (G/DL) BY AUTOMATED 34.6 g/dL Normal 31.0-37.0 [facility] Comment on above: Performed By: #### L [id number] #### [facility] [address] [place] [address] Hematocrit (Bld) [Volume fraction] 26.1 % Low 41.0-53.0 [facility] Comment on above: Performed By: #### L [id number] #### [facility] [address] [place] [address] Hemoglobin (Bld) [Mass/Vol] 9.0 g/dL Low 13.5-17.5 [facility] Comment on above: Performed By: #### L [id number] #### [facility] [address] [place] [address] Lymphocytes (Bld) [#/Vol] 1.9 10*3/uL Normal 1.0-3.5 [facility] Comment on above: Performed By: #### L [id number] #### [facility] [address] [place] [address] Lymphocytes/100 WBC (Bld) 19.7 % Low 24.0-44.0 [facility] Comment on above: Performed By: #### L [id number] #### [facility] [address] [place] [address] MCH (RBC) [Entitic mass] 30.1 pg Normal 26.0-34.0 [facility] Comment on above: Performed By: #### L [id number] #### [facility] [address] [place] [address] MCV (RBC) [Entitic vol] 87.1 fL Normal 80.0-100.0 [facility] Comment on above: Performed By: #### L [id number] #### [facility] [address] [place] [address] Monocytes (Bld) [#/Vol] 1.0 10*3/uL Normal 0.1-1.0 [facility] Comment on above: Performed By: #### L [id number] #### [facility] [address] [place] [address] [place] Monocytes/100 WBC (Bld) 10.4 % High 1.0-7.0 L [facility] Comment on above: Performed By: #### L [id number] #### [facility] [address] [place] [id number] Neutrophils (Bld) [#/Vol] 6.5 10*3/uL Normal 1.6-7.5 [facility] Comment on above: Performed By: #### L [id number] #### [facility] [address] [place] [address] Neutrophils/100 WBC (Bld) 67.0 % Normal 36.0-71.0 [facility] Comment on above: Performed By: #### L [id number] #### [facility] [address] [place] [address] Platelet mean volume (Bld) [Entitic vol] 6.2 fL Low 7.4-10.4 [facility] Comment on above: Performed By: #### L [id number] #### [facility] [address] [place] [address] [place] PLATELETS (10*3/UL) IN BLOOD AUTOMATED COUNT 254 10*3/uL Normal 140-440 [facility] Comment on above: Performed By: #### L [id number] #### [facility] [address] [place] [id number] RBC (Bld) [#/Vol] 3.00 10*6/uL Low 4.50-5.90 [facility] Comment on above: Performed By: #### L [id number] #### [facility] [address] [place] [address] [facility] WBC (Bld) [#/Vol] 9.6 10*3/uL Normal 4.0-11.0 [facility] Comment on above: Performed By: #### L [id number] #### [facility] [address] [place] [address] [facility] COVID/FLU-SOFIAon 05-02-2022 SARS-CoV-2 (COVID-19) RNA PAT+probe Ql (Unsp spec) JOEL SARS ANTIGEN CLINLRR Status = F Presumptive Negative RAPID INFLUENZA A AGN CLINLRR Status = F Negative RAPID INFLUENZA B AGN CLINLRR Status = F Negative Normal Negative [facility] Comment on above: Order Comment: This test has not been FDA cleared or approved; this test has been authorized by the FDA under an Emergency Use Authorization (EUA). Authorization for use is approved until the public health emergency is terminated or the EUA is revoked by the FDA. Performed By: #### L [id number] #### [facility] [address] [place] [address] POCT GLUCOSE METERon 022 Glucose [Mass/Vol] 126 mg/dL High 74-118 [facility] Comment on above: Result Comment: ACCE PT RESULTS Performed By: #### P [id number] #### [facility] [address] [place] [address] Glucose [Mass/Vol] 134 mg/dL High 74-118 [facility] Comment on above: Result Comment: ACCE PT RESULTS Performed By: #### P [id number] #### [facility] [address] [place] [address] URINALYSIS WITH MICROSCOPICo n 05-02-2022 BACTERIA (#/HPF) IN URINE 2+ /HPF Abnormal None [facility] Comment on above: Performed By: #### L [id number] #### [facility] [address] [place] [address] BILIRUBIN, TOTAL PRESENCE IN URINE Negative Normal Negative [facility] Comment on above: Performed By: #### L [id number] #### [facility] [address] [place] [address] [place] Clarity (U) Clear Normal Clear [facility] Comment on above: Performed By: #### L [id number] #### [facility] [address] [place] [address] [place] Color (U) Yellow Normal Yellow [facility] Comment on above: Performed By: #### L [id number] #### [facility] [address] [place] [address] [place] Glucose (U) [Mass/Vol] Negative Normal Negative [facility] Comment on above: Performed By: #### L [id number] #### [facility] [address] [place] [address] HEMOGLOBIN PRESENCE IN URINE Moderate Abnormal Negative [facility] Comment on above: Performed By: #### L [id number] #### [facility] [address] [place] [address] HYALINE CASTS (#/HPF) IN URINE SEDIMENT BY MICROSCOPY 0-5 Normal None [facility] Comment on above: Performed By: #### L [id number] #### [facility] [address] [place] [address] Ketones Ql (U) Negative Normal Negative [facility] Comment on above: Performed By: #### L [id number] #### [facility] [address] [place] [address] LEUKOCYTE ESTERASE PRESENCE IN URINE BY TEST STRIP Negative Normal Negative [facility] Comment on above: Performed By: #### L [id number] #### [facility] [address] [place] [address] NITRITE PRESENCE IN URINE Positive Abnormal Negative [facility] Comment on above: Performed By: #### L [id number] #### [facility] [address] [place] [address] pH (U) 7.5 [pH] Normal 4.5-8.0 [facility] Comment on above: Performed By: #### L [id number] #### [facility] [address] [place] [address] [place] Protein (U) [Mass/Vol] mg/dL Abnormal Negative [facility] Comment on above: Performed By: #### L [id number] #### [facility] [address] [place] [address] [place] RBC (#/HPF) IN URINE SEDIMENT 10-20 Abnormal None [facility] Comment on above: Performed By: #### L [id number] #### [facility] [address] [place] [address] Specific gravity (U) [Rel density] 1.016 unit/s Normal [facility] Comment on above: Performed By: #### L [id number] #### [facility] UROBILINOGEN (MG/DL) IN URINE 0.2 mg/dL Normal 0.2 - 1.0 [facility] Comment on above: Performed By: #### L [id number] #### [facility] [address] [place] [address] WBC (LEUKOCYTE) (#/HPF) IN URINE SEDIMENT 3-5 Normal None [facility] Comment on above: Performed By: #### L [id number] #### [facility] [address] [place] [address] URINE CULTUREon 05-02-2022 Bacteria identified Cx Nom (U) CULTURE CLINLRR Status = F Probable contaminants, suggest recollection >100,000 col/mL MULTIPLE ORGANISM TYPES PRESENT INCLUDING GRAM NEGATIVE BACILLI. PROBABLE CONTAMINATION WITH NO FURTHER IDENTIFICATION & NO SENSITIVITY. REPEAT CULTURE WITH CAREFULLY COLLECTED SPECIMEN IF CLINICALLY INDICATED. CULTURE WILL BE TEMPORARILY HELD FOR WORKUP UPON DOCTOR 'S REQUEST. Normal [facility] Comment on above: Performed By: #### L [id number] #### [facility] [address] [place] [address] PolysomnographyOrdered By: Margaret Jacques on 04-27-2022 [facility] No Panel Informationon 04-09 Ramana Jaramillo DPM 04/09/2022 12:18 PM Debridement Wound 01/29/22 1 Pressure Injury Heel Left Consent obtained? verbal Consent given by: patient Risks discussed? procedural risks discussed Immediately prior to the procedure a time out was called Performed by: physician Debridement type: surgical Level of debridement: subcutaneous tissue Pain control: lidocaine 4% Post-debridement measurements Length (cm): 1.6 Width (cm): 1.8 Depth (cm): 0.7 Percent debrided: 100% Surface Area (cm^2): 2.9 Area debrided (cm^2): 2.9 Volume (cm^3): 2 Devitalized tissue debrided: biofilm and slough Instrument(s) utilized: curette Bleeding: small Hemostasis obtained with: pressure Procedural pain (0-10): 0 Post-procedural pain: 0 Response to treatment: procedure was tolerated well [facility] Debridementon 03-19-20 22 Ramana Jaramillo DPM 03/19/2022 10:11 AM Debridement Wound 01/29/22 1 Pressure Injury Heel Left Consent obtained? verbal Consent given by: patient Risks discussed? procedural risks discussed Immediately prior to the procedure a time out was called Performed by: physician Debridement type: surgical Level of debridement: muscle Pain control: lidocaine 4% Post-debridement measurements Length (cm): 2 Width (cm): 2.2 Depth (cm): 0.7 Percent debrided: 100% Surface Area (cm^2): 4.4 Area debrided (cm^2): 4.4 Volume (cm^3): 3.1 Devitalized tissue debrided: biofilm and exudate Instrument(s) utilized: curette Bleeding: medium Hemostasis obtained with: pressure Procedural pain (0-10): insensate Post-procedural pain: insensate Response to treatment: procedure was tolerated well [facility] Wound Debridementon 02-27-20 22 HAYDEN Kaye 02/26/2022 10:58 AM Debridement Wound 01/29/22 1 Pressure Injury Heel Left Consent obtained? verbal Consent given by: patient Risks discussed? procedural risks discussed Performed by: physician Debridement type: surgical Level of debridement: muscle Pain control: lidocaine 4% Pre-debridement measurements Length (cm): 3.5 Width (cm): 3 Depth (cm): 1 Surface Area (cm^2): 10.5 Volume (cm^3): 10.5 Post-debridement measurements Length (cm): 3.6 Width (cm): 3.1 Depth (cm): 1.1 Percent debrided: 100% Surface Area (cm^2): 11.16 Area debrided (cm^2): 11.16 Volume (cm^3): 12.28 Devitalized tissue debrided: biofilm, necrotic debris and slough Instrument(s) utilized: curette Bleeding: medium Hemostasis obtained with: pressure Procedural pain (0-10): insensate Post-procedural pain: insensate Response to treatment: procedure was tolerated well [facility] Wound Debridementon 02-13-20 22 Ramana Jaramillo, [place] 02/12/2022 4:40 PM Debridement Wound 01/29/22 1 Pressure Injury Heel Left Consent obtained? verbal Consent given by: patient Risks discussed? procedural risks discussed Immediately prior to the procedure a time out was called Performed by: physician Debridement type: surgical Level of debridement: subcutaneous tissue Pain control: lidocaine 4% Pre-debridement measurements Length (cm): 3.8 Width (cm): 3 Depth (cm): 1 Surface Area (cm^2): 11.4 Volume (cm^3): 11.4 Post-debridement measurements Length (cm): 4 Width (cm): 3.1 Depth (cm): 1 Percent debrided: 100% Surface Area (cm^2): 12.4 Area debrided (cm^2): 12.4 Volume (cm^3): 12.4 Devitalized tissue debrided: biofilm and slough Instrument(s) utilized: blade Bleeding: small Hemostasis obtained with: pressure Procedural pain (0-10): insensate Post-procedural pain: insensate Response to treatment: procedure was tolerated well [facility] Wound Debridementon 01-30-20 22 Ramana Jaramillo DPM 02/02/2022 9:34 AM Debridement Wound 01/29/22 1 Pressure Injury Heel Left Consent obtained? verbal Consent given by: patient Risks discussed? procedural risks discussed Immediately prior to the procedure a time out was called Performed by: physician Debridement type: surgical Level of debridement: muscle Pain control: lidocaine 4% Pre-debridement measurements Length (cm): 4.3 Width (cm): 3.2 Depth (cm): 1.2 Surface Area (cm^2): 13.76 Volume (cm^3): 16.51 Post-debridement measurements Length (cm): 4.4 Width (cm): 3.3 Depth (cm): 1.3 Percent debrided: 100% Surface Area (cm^2): 14.52 Area debrided (cm^2): 14.52 Volume (cm^3): 18.88 Devitalized tissue debrided: biofilm, necrotic debris and slough Instrument(s) utilized: blade Bleeding: small Hemostasis obtained with: pressure Procedural pain (0-10): insensate Post-procedural pain: insensate Response to treatment: procedure was tolerated well [facility] Bacteria identified Anaer cx Nom (Unsp spec)on 01-17-2022 [facility] Bacteria identified Anaer cx Nom (Unsp spec)Ordered By: Hoda Fraser on 01-17-2022 [facility] Bone Anaerobic Cultureon Bacteria identified Anaer cx Nom (Unsp spec) No Anaerobic Growth at 5 Days [facility] Bone Anaerobic CultureOrdere d By: Hoda Fraser on 01-17-2022 Bacteria identified Anaer cx Nom (Unsp spec) No Anaerobic Growth at 5 Days [facility] COVID-19, MOLECULARon 2021 SARS-CoV-2 (COVID-19) RNA PAT+probe Ql (Unsp spec) Not detected Normal Not Detected [facility] Comment on above: Order Comment: This test was performed under the FDA's Emergency Use Authorization (EUA). Testing was performed using the Tavo Elvia SARS-CoV-2 RT-PCR AND Influenza A/B Nucleic Acid Test on the Elvia Jewell System. This test has not been approved for use in asymptomatic patients and its performance in this patient population has not been evaluated. Negative results do not rule out the presence of SARS-CoV-2, influenza A, and/or influenza B. Fact sheets for the EUA can be found at the following links: For Healthcare Providers: https://www.fda.gov/media/395271/download For Patients: https://www.fda.gov/media/862397/download Performed By: #### L [id number] #### [facility] [address] [place], [place] [address] Elijah Trotter M.D. [id number] COVID-19, MolecularOrdered B y: Conor Florence on 01-17-2022 SARS-CoV-2 (COVID-19) RNA PAT+probe Ql (Resp) Not detected Not Detected [facility] Creatinine [Mass/Vol]on 01-02 GFR/1.73 sq M.predicted CKD-EPI (S/P/Bld) [Vol rate/Area] 69 >=60 mL/min/1.73 m2 [facility] Interpretation and review of laboratory results Normal [facility] The eGFR should be u sed for monitoring renal function only and not for medication dosing. [facility] Creatinine, serumon 01-18-20 Creatinine [Mass/Vol] 1.15 mg/dL 0.50 - 1.30 [facility] Glucose (Bld) [Mass/Vol]on 0 01-17-2022 Glucose [Mass/Vol] 255 mg/dL High 65 - 99 mg/dL [facility] Interpretation and review of laboratory results Abnormal [facility] Glucose [Mass/Vol] 212 mg/dL High 65 - 99 mg/dL [facility] Interpretation and review of laboratory results Abnormal [facility] SARS-CoV-2 (COVID-19) RNA NA A+probe Ql (Resp)Ordered By: Conor Florence on 01-17-2022 Interpretation and review of laboratory results Normal [facility] This test was perfor med under the FDA's Emergency Use Authorization (EUA). Testing was performed using the Tavo Elvia SARS-CoV-2 RT-PCR & Influenza A/B Nucleic Acid Test on the Elvia Jewell System. This test has not been approved for use in asymptomatic patients and its performance in this patient population has not been evaluated. Negative results do not rule out the presence of SARS-CoV-2, influenza A, and/or influenza B. Fact sheets for the EUA can be found at the following links: For Healthcare Providers: https://www.fda.gov/medi a/700382/download For Patients: https://www.fda.gov/medi a/639427/download [facility] Surgical Site Anaerobic Cult ureon 01-17-2022 Bacteria identified Anaer cx Nom (Unsp spec) No Anaerobic Growth at 5 Days [facility] Creatinine [Mass/Vol]on 01-02 GFR/1.73 sq M.predicted CKD-EPI (S/P/Bld) [Vol rate/Area] 80 >=60 mL/min/1.73 m2 [facility] Interpretation and review of laboratory results Normal [facility] The eGFR should be u sed for monitoring renal function only and not for medication dosing. [facility] Creatinine, serumon 01-17-20 Creatinine [Mass/Vol] 1.01 mg/dL 0.50 - 1.30 [facility] Glucose (Bld) [Mass/Vol]on 0 01-16-2022 Glucose [Mass/Vol] 195 mg/dL High 65 - 99 mg/dL [facility] Interpretation and review of laboratory results Abnormal [facility] Glucose [Mass/Vol] 336 mg/dL High 65 - 99 mg/dL [facility] Interpretation and review of laboratory results Abnormal [facility] Glucose [Mass/Vol] 159 mg/dL High 65 - 99 mg/dL [facility] Interpretation and review of laboratory results Abnormal [facility] Glucose [Mass/Vol] 183 mg/dL High 65 - 99 mg/dL [facility] Interpretation and review of laboratory results Abnormal [facility] Glucose [Mass/Vol] 220 mg/dL High 65 - 99 mg/dL [facility] Interpretation and review of laboratory results Abnormal [facility] Bacteria identified Aer cx N om (Bone)on 01-15-2022 Interpretation and review of laboratory results Abnormal [facility] Microscopic observation Gram stain Nom (Unsp spec) Moderate WBC [facility] Microscopic observation Gram stain Nom (Unsp spec) Many RBC [facility] Microscopic observation Gram stain Nom (Unsp spec) Positive [facility] Microscopic observation Gram stain Nom (Unsp spec) Negative [facility] Microscopic observation Gram stain Nom (Unsp spec) No Organisms Seen [facility] Microscopic observation Gram stain Nom (Unsp spec) No WBC Seen [facility] Basic metabolic 2000 panelon 01-15-2022 Anion gap [Moles/Vol] 15 mmol/L 10 - 2 0 mmol/L [facility] Calcium [Mass/Vol] 9.0 mg/dL 8.4 - 10. 2 mg/dL [facility] Chloride [Moles/Vol] 103 mmol/L 98 - 10 8 mmol/L [facility] Creatinine [Mass/Vol] 1.05 mg/dL 0.50 - 1.30 [facility] GFR/1.73 sq M.predicted CKD-EPI (S/P/Bld) [Vol rate/Area] 77 >=60 mL/min/1.73 m2 [facility] Glucose [Mass/Vol] 165 mg/dL High 65 - 99 mg/dL [facility] HCO3 [Moles/Vol] 22 mmol/L 21 - 32 mmol/L [facility] Interpretation and review of laboratory results Abnormal [facility] Potassium [Moles/Vol] 4.8 mmol/L 3.5 - 5.1 mmol/L [facility] Sodium [Moles/Vol] 135 mmol/L 135 - 145 mmol/L [facility] Urea nitrogen [Mass/Vol] 34 mg/dL High 8 - 25 mg/dL [facility] Urea nitrogen/Creatinine [Mass ratio] 32.4 mg/mg High [facility] The eGFR should be u sed for monitoring renal function only and not for medication dosing. [facility] Bone Aerobic Cultureon 01-15 Bacteria identified Aer cx Nom (Bone) Moderate Growth Staphylococcus aureus Abnormal [facility] Comment on above: See susceptibility f rom same source/different date: 01/09/22 Methicillin Resistant Staphylococcus aureus (MRSA) Bacteria identified Aer cx Nom (Bone) Light Growth Normal Skin Mary [facility] Bacteria identified Aer cx Nom (Bone) Few Growth Normal Skin [facility] CBC Auto Differentialon 01-02 Basophils (Bld) [#/Vol] 0.03 10*3/uL [facility] Basophils/100 WBC (Bld) 0.3 % [facility] Eosinophils (Bld) [#/Vol] 0.32 10*3/uL [facility] Eosinophils/100 WBC (Bld) 3.1 % [facility] Erythrocyte distribution width (RBC) [Entitic vol] 14.0 % 11.6 - 14.8 % [facility] Hematocrit (Bld) [Volume fraction] 22.9 % Low 41.0 - 53.0 % [facility] Hemoglobin (Bld) [Mass/Vol] 7.4 g/dL Low 13.5 - 17.5 g/dL [facility] Immature granulocytes (Bld) [#/Vol] 0.17 10*3/uL [facility] Immature granulocytes/100 WBC (Bld) 1.70 % [facility] Comment on above: The IG parameter is the percentage of metamyelocytes, myelocytes and promyelocytes. An immature granulocyte count (IG) of 1% or more suggests the possibility of infection, an IG count of 3% is very likely related to an infection. Interpretation and review of laboratory results Abnormal [facility] Lymphocytes (Bld) [#/Vol] 2.18 10*3/uL [facility] Lymphocytes/100 WBC (Bld) 21.3 % [facility] MCH (RBC) [Entitic mass] 29.4 pg 26.0 - 34.0 pg [facility] MCHC (RBC) [Mass/Vol] 32.3 g/dL 31.0 - 37.0 g/dL [facility] MCV (RBC) [Entitic vol] 90.9 fL 80.0 - 100.0 fL [facility] Monocytes (Bld) [#/Vol] 1.28 10*3/uL High [facility] Monocytes/100 WBC (Bld) 12.5 % [facility] Neutrophils (Bld) [#/Vol] 6.27 10*3/uL [facility] Neutrophils/100 WBC (Bld) 61.1 % [facility] Nucleated RBC (Bld) [#/Vol] 0.00 10*3/uL [facility] Nucleated RBC/100 WBC (Bld) [Ratio] 0.0 % [facility] Platelet mean volume (Bld) [Entitic vol] 8.9 fL Low 9.4 - 12.4 fL [facility] Platelets (Bld) [#/Vol] 327 10*3/uL [facility] RBC (Bld) [#/Vol] 2.52 10*6/uL Low [facility] WBC (Bld) [#/Vol] 10.25 10*3/uL [facility] Glucose (Bld) [Mass/Vol]on 0 01-15-2022 Glucose [Mass/Vol] 129 mg/dL High 65 - 99 mg/dL [facility] Interpretation and review of laboratory results Abnormal [facility] Glucose [Mass/Vol] 196 mg/dL High 65 - 99 mg/dL [facility] Interpretation and review of laboratory results Abnormal [facility] Glucose [Mass/Vol] 189 mg/dL High 65 - 99 mg/dL [facility] Interpretation and review of laboratory results Abnormal [facility] Glucose [Mass/Vol] 164 mg/dL High 65 - 99 mg/dL [facility] Interpretation and review of laboratory results Abnormal [facility] Surgical Site Aerobic Cultur jairo 01-15-2022 Bacteria identified Aer cx Nom (Unsp spec) Few Growth (4-10 colonies per plate) Coagulase Negative Staphylococcus Abnormal [facility] Interpretation and review of laboratory results Abnormal [facility] Microscopic observation Gram stain Nom (Unsp spec) Moderate WBC [facility] Microscopic observation Gram stain Nom (Unsp spec) Many RBC [facility] Microscopic observation Gram stain Nom (Unsp spec) No Organisms Seen [facility] Basic metabolic 2000 panelOr dered By: Jorge Kimble on 01-14-2022 Anion gap [Moles/Vol] 18 mmol/L 10 - 2 0 mmol/L [facility] Calcium [Mass/Vol] 8.6 mg/dL 8.4 - 10. 2 mg/dL [facility] Chloride [Moles/Vol] 104 mmol/L 98 - 10 8 mmol/L [facility] Creatinine [Mass/Vol] 1.26 mg/dL 0.50 - 1.30 [facility] GFR/1.73 sq M.predicted CKD-EPI (S/P/Bld) [Vol rate/Area] 62 >=60 mL/min/1.73 m2 [facility] Glucose [Mass/Vol] 190 mg/dL High 65 - 99 mg/dL [facility] HCO3 [Moles/Vol] 21 mmol/L 21 - 32 mmol/L [facility] Interpretation and review of laboratory results Abnormal [facility] Potassium [Moles/Vol] 5.2 mmol/L High 3.5 - 5.1 mmol/L [facility] Sodium [Moles/Vol] 138 mmol/L 135 - 145 mmol/L [facility] Urea nitrogen [Mass/Vol] 40 mg/dL High 8 - 25 mg/dL [facility] Urea nitrogen/Creatinine [Mass ratio] 31.7 mg/mg High [facility] The eGFR should be u sed for monitoring renal function only and not for medication dosing. [facility] CBC Auto Differentialon 01-02 Basophils (Bld) [#/Vol] 0.02 10*3/uL [facility] Basophils/100 WBC (Bld) 0.2 % [facility] Eosinophils (Bld) [#/Vol] 0.25 10*3/uL [facility] Eosinophils/100 WBC (Bld) 2.7 % [facility] Erythrocyte distribution width (RBC) [Entitic vol] 14.1 % 11.6 - 14.8 % [facility] Hematocrit (Bld) [Volume fraction] 22.8 % Low 41.0 - 53.0 % [facility] Hemoglobin (Bld) [Mass/Vol] 7.3 g/dL Low 13.5 - 17.5 g/dL [facility] Immature granulocytes (Bld) [#/Vol] 0.11 10*3/uL [facility] Immature granulocytes/100 WBC (Bld) 1.20 % [facility] Comment on above: The IG parameter is the percentage of metamyelocytes, myelocytes and promyelocytes. An immature granulocyte count (IG) of 1% or more suggests the possibility of infection, an IG count of 3% is very likely related to an infection. Interpretation and review of laboratory results Abnormal [facility] Lymphocytes (Bld) [#/Vol] 2.42 10*3/uL [facility] Lymphocytes/100 WBC (Bld) 25.9 % [facility] MCH (RBC) [Entitic mass] 29.4 pg 26.0 - 34.0 pg [facility] MCHC (RBC) [Mass/Vol] 32.0 g/dL 31.0 - 37.0 g/dL [facility] MCV (RBC) [Entitic vol] 91.9 fL 80.0 - 100.0 fL [facility] Monocytes (Bld) [#/Vol] 1.10 10*3/uL High [facility] Monocytes/100 WBC (Bld) 11.8 % [facility] Neutrophils (Bld) [#/Vol] 5.46 10*3/uL [facility] Neutrophils/100 WBC (Bld) 58.2 % [facility] Nucleated RBC (Bld) [#/Vol] 0.00 10*3/uL [facility] Nucleated RBC/100 WBC (Bld) [Ratio] 0.0 % [facility] Platelet mean volume (Bld) [Entitic vol] 8.9 fL Low 9.4 - 12.4 fL [facility] Platelets (Bld) [#/Vol] 304 10*3/uL [facility] RBC (Bld) [#/Vol] 2.48 10*6/uL Low [facility] eah WBC (Bld) [#/Vol] 9.36 10*3/uL [facility] eah [facility] Glucose (Bld) [Mass/Vol]on 0 01-14-2022 Glucose [Mass/Vol] 230 mg/dL High 65 - 99 mg/dL [facility] Interpretation and review of laboratory results Abnormal [facility] Glucose [Mass/Vol] 146 mg/dL High 65 - 99 mg/dL [facility] Interpretation and review of laboratory results Abnormal [facility] Glucose [Mass/Vol] 261 mg/dL High 65 - 99 mg/dL [facility] Interpretation and review of laboratory results Abnormal [facility] Glucose [Mass/Vol] 159 mg/dL High 65 - 99 mg/dL [facility] Interpretation and review of laboratory results Abnormal [facility] Vancomycin Level, TroughOrde red By: Efrain Hector on 01-14-2022 Vancomycin trough [Mass/Vol] 20.1 ug/mL Critically high [facility] Vancomycin trough [Mass/Vol] Ordered By: Efrain Hector on 01-14-2022 Interpretation and review of laboratory results Abnormal [facility] Wound Anaerobic CultureOrder ed By: Gaurav Montalvo on 01-14-2022 Bacteria identified Anaer cx Nom (Wound) No Anaerobic Growth at 5 Days [facility] Bacteria identified Cx Nom ( Bld)on 03-12-2022 Interpretation and review of laboratory results Normal [facility] Interpretation and review of laboratory results Normal [facility] Blood Culture Aerobic/Anaero bicon 01-13-2022 Bacteria identified Cx Nom (Bld) No Growth After 4 Days [facility] Bacteria identified Cx Nom (Bld) No Growth After 4 Days [facility] Creatinine [Mass/Vol]on 01-02 GFR/1.73 sq M.predicted CKD-EPI (S/P/Bld) [Vol rate/Area] 58 Low >=60 mL/min/1.73 m2 [facility] Interpretation and review of laboratory results Abnormal [facility] The eGFR should be u sed for monitoring renal function only and not for medication dosing. [facility] Creatinine, serumon 01-14-20 22 Creatinine [Mass/Vol] 1.33 mg/dL High 0.50 - 1.30 [facility] Glucose (Bld) [Mass/Vol]on 0 01-13-2022 Glucose [Mass/Vol] 212 mg/dL High 65 - 99 mg/dL [facility] Interpretation and review of laboratory results Abnormal [facility] Glucose [Mass/Vol] 190 mg/dL High 65 - 99 mg/dL [facility] Interpretation and review of laboratory results Abnormal [facility] Glucose [Mass/Vol] 205 mg/dL High 65 - 99 mg/dL [facility] Interpretation and review of laboratory results Abnormal [facility] Glucose [Mass/Vol] 240 mg/dL High 65 - 99 mg/dL [facility] Interpretation and review of laboratory results Abnormal [facility] Glucose [Mass/Vol] 339 mg/dL High 65 - 99 mg/dL [facility] Interpretation and review of laboratory results Abnormal [facility] No Panel Informationon 01-13 1. Acute osteomyelitis in the plantar calcaneus adjacent to the ulcer. 2. Acute osteomyelitis in the 5th metatarsal head and neck and proximal 5th phalanx adjacent to the ulcer. 3. No soft tissue abscess. 4. Nonspecific increased signal in the distal phalanx of the 1st, 2nd and 3rd digits. This could be due to artifact. This finding can also be seen with Raynaud's phenomenon or frostbite injury. 5. Intramuscular edema and atrophy in the plantar foot musculature compatible with neuropathy. /[facility] Workstation ID: [id number] [facility]: MRI OF THE LEFT HINDFOOT WITHOUT CONTRAST; MRI OF THE LEFT FOOT WITHOUT CONTRAST 01/09/2022 TECHNIQUE: Multiplanar, multisequence MRI of the left hindfoot was performed without the administration of intravenous contrast.; Multiplanar, multisequence MRI of the left foot was performed without the administration of intravenous contrast. COMPARISON: 07/26/2020. HISTORY: ORDERING SYSTEM PROVIDED HISTORY: Please include foot and heel. Concern for possible OM at 5th MT, probes deeply to periosteum. Dry well-adhered eschar to calcaneus with no deep probe. No gross purulence on exam; TECHNOLOGIST PROVIDED HISTORY: Illness/Other Acuity: Unknown Reason for Exam: Diabetic ulcer of left foot associated with diabetes mellitus of other type, with other ulcer severity, unspecified part of foot ([facility]) Type of Encounter: Ongoing Additional signs and symptoms: Diabetic ulcer of left foot associated with diabetes mellitus of other type, with other ulcer severity, unspecified part of foot ([facility]) ORDERING SYSTEM PROVIDED DIAGNOSIS CODES: E11.628 Diabetic foot infection ([facility]) L08.9 Diabetic foot infection ([facility]) T14.8XXA Wound infection L08.9 Wound infection; ORDERING SYSTEM PROVIDED HISTORY: Concern for possible OM at 5th MT, probes deeply to periostum. Dry well-adhered eschar to calcaneus with no deep probe. No gross purulence on exam; FINDINGS: Motion artifact is present. Hindfoot: Plantar heel ulceration is present on the posterior lateral aspect of the heel soft tissues. No surrounding abscess or fluid collection in the heel soft tissues. Adjacent to the ulcer crater, there is focal marrow edema in the plantar aspect of the calcaneus with associated decreased T1 signal extending for a length of approximately 2 x 1.5 cm with a depth of up to 1 cm concerning for acute osteomyelitis in the plantar calcaneus. Bone marrow signal in the talus, distal tibia and distal fibula is maintained. Bone marrow signal in the cuboid and midfoot bones is maintained. No discrete evidence of tendon tear or tenosynovitis. Superficial soft tissue edema is noted in the ankle. Intramuscular edema is present with muscle atrophy involving the plantar musculature of the foot likely representing neuropathy. No evidence of joint effusion. Forefoot: Plantar lateral forefoot ulcer is present adjacent to the 5th MTP joint with surrounding cellulitis. There is edema along the ulcer crater without discrete fluid collection or drainable abscess. Marrow edema is present in the 5th metatarsal head and neck. Marrow edema throughout the proximal phalanx 5th digit. Findings are compatible with acute osteomyelitis given the proximity to the ulcer. Bone marrow signal in the 4th digit and 4th metatarsal is maintained. Increased signal is noted in the distal phalanx of the 1st, 2nd and 3rd digit which is nonspecific. This could be due to inhomogeneous fat suppression and artifact. Hammertoe deformity of the 2nd through 4th digits. The MTP joints are maintained. No joint effusion. Dorsal superficial soft tissue edema in the foot. Lew Steiner MD - 01/13/2022 EXAMINATION: MRI OF THE LEFT HINDFOOT WITHOUT CONTRAST; MRI OF THE LEFT FOOT WITHOUT CONTRAST 01/09/2022 TECHNIQUE: Multiplanar, multisequence MRI of the left hindfoot was performed without the administration of intravenous contrast.; Multiplanar, multisequence MRI of the left foot was performed without the administration of intravenous contrast. COMPARISON: 07/26/2020. HISTORY: ORDERING SYSTEM PROVIDED HISTORY: Please include foot and heel. Concern for possible OM at 5th MT, probes deeply to periosteum. Dry well-adhered eschar to calcaneus with no deep probe. No gross purulence on exam; TECHNOLOGIST PROVIDED HISTORY: Illness/Other Acuity: Unknown Reason for Exam: Diabetic ulcer of left foot associated with diabetes mellitus of other type, with other ulcer severity, unspecified part of foot ([facility]) Type of Encounter: Ongoing Additional signs and symptoms: Diabetic ulcer of left foot associated with diabetes mellitus of other type, with other ulcer severity, unspecified part of foot ([facility]) ORDERING SYSTEM PROVIDED DIAGNOSIS CODES: E11.628 Diabetic foot infection ([facility]) L08.9 Diabetic foot infection ([facility]) T14.8XXA Wound infection L08.9 Wound infection; ORDERING SYSTEM PROVIDED HISTORY: Concern for possible OM at 5th MT, probes deeply to periostum. Dry well-adhered eschar to calcaneus with no deep probe. No gross purulence on exam; FINDINGS: Motion artifact is present. Hindfoot: Plantar heel ulceration is present on the posterior lateral aspect of the heel soft tissues. No surrounding abscess or fluid collection in the heel soft tissues. Adjacent to the ulcer crater, there is focal marrow edema in the plantar aspect of the calcaneus with associated decreased T1 signal extending for a length of approximately 2 x 1.5 cm with a depth of up to 1 cm concerning for acute osteomyelitis in the plantar calcaneus. Bone marrow signal in the talus, distal tibia and distal fibula is maintained. Bone marrow signal in the cuboid and midfoot bones is maintained. No discrete evidence of tendon tear or tenosynovitis. Superficial soft tissue edema is noted in the ankle. Intramuscular edema is present with muscle atrophy involving the plantar musculature of the foot likely representing neuropathy. No evidence of joint effusion. Forefoot: Plantar lateral forefoot ulcer is present adjacent to the 5th MTP joint with surrounding cellulitis. There is edema along the ulcer crater without discrete fluid collection or drainable abscess. Marrow edema is present in the 5th metatarsal head and neck. Marrow edema throughout the proximal phalanx 5th digit. Findings are compatible with acute osteomyelitis given the proximity to the ulcer. Bone marrow signal in the 4th digit and 4th metatarsal is maintained. Increased signal is noted in the distal phalanx of the 1st, 2nd and 3rd digit which is nonspecific. This could be due to inhomogeneous fat suppression and artifact. Hammertoe deformity of the 2nd through 4th digits. The MTP joints are maintained. No joint effusion. Dorsal superficial soft tissue edema in the foot. IMPRESSION: 1. Acute osteomyelitis in the plantar calcaneus adjacent to the ulcer. 2. Acute osteomyelitis in the 5th metatarsal head and neck and proximal 5th phalanx adjacent to the ulcer. 3. No soft tissue abscess. 4. Nonspecific increased signal in the distal phalanx of the 1st, 2nd and 3rd digits. This could be due to artifact. This finding can also be seen with Raynaud's phenomenon or frostbite injury. 5. Intramuscular edema and atrophy in the plantar foot musculature compatible with neuropathy. [facility] Workstation ID: [id number] [facility] No Panel InformationOrdered By: Lew Hong on 01-13-2022 [facility] Work Phone: Wound Aerobic Cultureon 01-02 Bacteria identified Aer cx Nom (Wound) Moderate Growth Staphylococcus aureus Abnormal [facility] Comment on above: Methicillin Resist ant Staphylococcus aureus (MRSA) Bacteria identified Aer cx Nom (Wound) Moderate Growth Normal Skin Mary [facility] Interpretation and review of laboratory results Abnormal [facility] Microscopic observation Gram stain Nom (Wound) Positive [facility] Gram stain Nom (Wound) Negative [facility] Microscopic observation Gram stain Nom (Wound) Few WBC [facility] Microscopic observation Gram stain Nom (Wound) Many [facility] Basic metabolic 2000 panelon 01-12-2022 Anion gap [Moles/Vol] 15 mmol/L 10 - 2 0 mmol/L [facility] Calcium [Mass/Vol] 9.2 mg/dL 8.4 - 10. 2 mg/dL [facility] Chloride [Moles/Vol] 105 mmol/L 98 - 10 8 mmol/L [facility] Creatinine [Mass/Vol] 1.06 mg/dL 0.50 - 1.30 [facility] GFR/1.73 sq M.predicted CKD-EPI (S/P/Bld) [Vol rate/Area] 76 >=60 mL/min/1.73 m2 [facility] Glucose [Mass/Vol] 126 mg/dL High 65 - 99 mg/dL [facility] HCO3 [Moles/Vol] 21 mmol/L 21 - 32 mmol/L [facility] Interpretation and review of laboratory results Abnormal [facility] Potassium [Moles/Vol] 4.2 mmol/L 3.5 - 5.1 mmol/L [facility] Sodium [Moles/Vol] 137 mmol/L 135 - 145 mmol/L [facility] Urea nitrogen [Mass/Vol] 34 mg/dL High 8 - 25 mg/dL [facility] Urea nitrogen/Creatinine [Mass ratio] 32.1 mg/mg High [facility] The eGFR should be u sed for monitoring renal function only and not for medication dosing. [facility] CBC panel Auto (Bld)on 01-12 Erythrocyte distribution width (RBC) [Entitic vol] 13.5 % 11.6 - 14.8 % [facility] Hematocrit (Bld) [Volume fraction] 22.9 % Low 41.0 - 53.0 % [facility] Hemoglobin (Bld) [Mass/Vol] 7.7 g/dL Low 13.5 - 17.5 g/dL [facility] Interpretation and review of laboratory results Abnormal [facility] MCH (RBC) [Entitic mass] 29.3 pg 26.0 - 34.0 pg [facility] MCHC (RBC) [Mass/Vol] 33.6 g/dL 31.0 - 37.0 g/dL [facility] MCV (RBC) [Entitic vol] 87.1 fL 80.0 - 100.0 fL [facility] Nucleated RBC (Bld) [#/Vol] 0.00 10*3/uL [facility] Nucleated RBC/100 WBC (Bld) [Ratio] 0.0 % [facility] Platelet mean volume (Bld) [Entitic vol] 8.5 fL Low 9.4 - 12.4 fL [facility] Platelets (Bld) [#/Vol] 296 10*3/uL [facility] RBC (Bld) [#/Vol] 2.63 10*6/uL Low [facility]alth WBC (Bld) [#/Vol] 8.90 10*3/uL [facility] Glucose (Bld) [Mass/Vol]on 0 01-12-2022 Glucose [Mass/Vol] 410 mg/dL Critically high 65 - 9 9 mg/dL [facility] Interpretation and review of laboratory results Abnormal [facility] Critical result acte d upon time of test. Test performed at bedside. [facility] Glucose [Mass/Vol] 179 mg/dL High 65 - 99 mg/dL [facility] Interpretation and review of laboratory results Abnormal [facility] Glucose [Mass/Vol] 129 mg/dL High 65 - 99 mg/dL [facility] Interpretation and review of laboratory results Abnormal [facility] Glucose [Mass/Vol] 114 mg/dL High 65 - 99 mg/dL [facility] Interpretation and review of laboratory results Abnormal [facility] INR Coag (PPP) [Relative javi e]on 01-12-2022 Interpretation and review of laboratory results Abnormal [facility] PT Coag (PPP) [Time] 15.4 s [facility] During the induction phase of oral anticoagulation, the INR may not reflect the anticoagulation status of the patient. Therapeutic ranges for INR's are: Most clinical situations: INR 2.0-3.0 Mechanical Prosthetic Valve: INR 2.5-3.5 Critical: INR >5.0 [facility] PT/INRon 01-12-2022 INR Coag (PPP) [Relative time] 1.3 {INR} High [facility] Vancomycin Level, TroughOrde red By: Linsey Nino on 01-12-2022 Vancomycin trough [Mass/Vol] 26.7 ug/mL Critically high [facility] Vancomycin trough [Mass/Vol] Ordered By: Linsey Nino on 01-12-2022 Interpretation and review of laboratory results Abnormal [facility] Basic metabolic 2000 panelon 01-11-2022 Anion gap [Moles/Vol] 16 mmol/L 10 - 2 0 mmol/L [facility] Calcium [Mass/Vol] 9.0 mg/dL 8.4 - 10. 2 mg/dL [facility] Chloride [Moles/Vol] 102 mmol/L 98 - 10 8 mmol/L [facility] Creatinine [Mass/Vol] 1.09 mg/dL 0.50 - 1.30 [facility] GFR/1.73 sq M.predicted CKD-EPI (S/P/Bld) [Vol rate/Area] 73 >=60 mL/min/1.73 m2 [facility] Glucose [Mass/Vol] 95 mg/dL 65 - 99 mg/dL [facility] HCO3 [Moles/Vol] 23 mmol/L 21 - 32 mmol/L [facility] Interpretation and review of laboratory results Abnormal [facility] Potassium [Moles/Vol] 4.6 mmol/L 3.5 - 5.1 mmol/L [facility] Sodium [Moles/Vol] 136 mmol/L 135 - 145 mmol/L [facility] Urea nitrogen [Mass/Vol] 35 mg/dL High 8 - 25 mg/dL [facility] Urea nitrogen/Creatinine [Mass ratio] 32.1 mg/mg High [facility] The eGFR should be u sed for monitoring renal function only and not for medication dosing. [facility] CBC Auto Differentialon 01-02 Basophils (Bld) [#/Vol] 0.03 10*3/uL [facility] Basophils/100 WBC (Bld) 0.3 % [facility] Eosinophils (Bld) [#/Vol] 0.39 10*3/uL [facility] Eosinophils/100 WBC (Bld) 4.4 % [facility] Erythrocyte distribution width (RBC) [Entitic vol] 13.5 % 11.6 - 14.8 % [facility] Hematocrit (Bld) [Volume fraction] 24.0 % Low 41.0 - 53.0 % [facility] Hemoglobin (Bld) [Mass/Vol] 7.8 g/dL Low 13.5 - 17.5 g/dL [facility] Immature granulocytes (Bld) [#/Vol] 0.07 10*3/uL [facility] Immature granulocytes/100 WBC (Bld) 0.80 % [facility] Comment on above: The IG parameter is the percentage of metamyelocytes, myelocytes and promyelocytes. An immature granulocyte count (IG) of 1% or more suggests the possibility of infection, an IG count of 3% is very likely related to an infection. Interpretation and review of laboratory results Abnormal [facility] Lymphocytes (Bld) [#/Vol] 1.65 10*3/uL [facility] Lymphocytes/100 WBC (Bld) 18.6 % [facility] MCH (RBC) [Entitic mass] 29.5 pg 26.0 - 34.0 pg [facility] MCHC (RBC) [Mass/Vol] 32.5 g/dL 31.0 - 37.0 g/dL [facility] MCV (RBC) [Entitic vol] 90.9 fL 80.0 - 100.0 fL [facility] Monocytes (Bld) [#/Vol] 0.95 10*3/uL High [facility] Monocytes/100 WBC (Bld) 10.7 % [facility] Neutrophils (Bld) [#/Vol] 5.78 10*3/uL [facility] Neutrophils/100 WBC (Bld) 65.2 % [facility] Nucleated RBC (Bld) [#/Vol] 0.00 10*3/uL [facility] Nucleated RBC/100 WBC (Bld) [Ratio] 0.0 % [facility] Platelet mean volume (Bld) [Entitic vol] 8.7 fL Low 9.4 - 12.4 fL [facility] Platelets (Bld) [#/Vol] 311 10*3/uL [facility] RBC (Bld) [#/Vol] 2.64 10*6/uL Low [facility] eah WBC (Bld) [#/Vol] 8.87 10*3/uL [facility] eah [facility] Glucose (Bld) [Mass/Vol]on 0 01-11-2022 Glucose [Mass/Vol] 197 mg/dL High 65 - 99 mg/dL [facility] Interpretation and review of laboratory results Abnormal [facility] Glucose [Mass/Vol] 188 mg/dL High 65 - 99 mg/dL [facility] Interpretation and review of laboratory results Abnormal [facility] Glucose [Mass/Vol] 122 mg/dL High 65 - 99 mg/dL [facility] Interpretation and review of laboratory results Abnormal [facility] Glucose [Mass/Vol] 104 mg/dL High 65 - 99 mg/dL [facility] Interpretation and review of laboratory results Abnormal [facility] Basic metabolic 2000 panelon 01-10-2022 Anion gap [Moles/Vol] 19 mmol/L 10 - 2 0 mmol/L [facility] Calcium [Mass/Vol] 9.3 mg/dL 8.4 - 10. 2 mg/dL [facility] Chloride [Moles/Vol] 104 mmol/L 98 - 10 8 mmol/L [facility] Creatinine [Mass/Vol] 1.19 mg/dL 0.50 - 1.30 [facility] GFR/1.73 sq M.predicted CKD-EPI (S/P/Bld) [Vol rate/Area] 66 >=60 mL/min/1.73 m2 [facility] Glucose [Mass/Vol] 82 mg/dL 65 - 99 mg/dL [facility] HCO3 [Moles/Vol] 22 mmol/L 21 - 32 mmol/L [facility] Interpretation and review of laboratory results Abnormal [facility] Potassium [Moles/Vol] 4.7 mmol/L 3.5 - 5.1 mmol/L [facility] Sodium [Moles/Vol] 140 mmol/L 135 - 145 mmol/L [facility] Urea nitrogen [Mass/Vol] 40 mg/dL High 8 - 25 mg/dL [facility] Urea nitrogen/Creatinine [Mass ratio] 33.6 mg/mg High [facility] The eGFR should be u sed for monitoring renal function only and not for medication dosing. [facility] CBC panel Auto (Bld)on 01-10 Erythrocyte distribution width (RBC) [Entitic vol] 13.4 % 11.6 - 14.8 % [facility] Hematocrit (Bld) [Volume fraction] 25.2 % Low 41.0 - 53.0 % [facility] Hemoglobin (Bld) [Mass/Vol] 8.0 g/dL Low 13.5 - 17.5 g/dL [facility] Interpretation and review of laboratory results Abnormal [facility] MCH (RBC) [Entitic mass] 28.3 pg 26.0 - 34.0 pg [facility] MCHC (RBC) [Mass/Vol] 31.7 g/dL 31.0 - 37.0 g/dL [facility] MCV (RBC) [Entitic vol] 89.0 fL 80.0 - 100.0 fL [facility] Nucleated RBC (Bld) [#/Vol] 0.00 10*3/uL [facility] Nucleated RBC/100 WBC (Bld) [Ratio] 0.0 % [facility] Platelet mean volume (Bld) [Entitic vol] 9.7 fL 9.4 - 12.4 fL [facility] Platelets (Bld) [#/Vol] 305 10*3/uL [facility] RBC (Bld) [#/Vol] 2.83 10*6/uL Low [facility] [#/Vol] 9.98 10*3/uL [facility] Glucose (Bld) [Mass/Vol]on 0 01-10-2022 Glucose [Mass/Vol] 192 mg/dL High 65 - 99 mg/dL [facility] Interpretation and review of laboratory results Abnormal [facility] Glucose [Mass/Vol] 104 mg/dL High 65 - 99 mg/dL [facility] Interpretation and review of laboratory results Abnormal [facility] Glucose [Mass/Vol] 154 mg/dL High 65 - 99 mg/dL [facility] Interpretation and review of laboratory results Abnormal [facility] Glucose [Mass/Vol] 140 mg/dL High 65 - 99 mg/dL [facility] Interpretation and review of laboratory results Abnormal [facility] Lavender TopOrdered By: Zachery Rhodes on 01-10-2022 Extra Tube Hold for add-ons. [facility] Comment on above: Auto resulted. [facility] Lipid 1996 panelon 2 Cholesterol [Mass/Vol] 122 mg/dL 100 - 199 mg/dL [facility] Cholesterol in HDL [Mass/Vol] 31 mg/dL Low 40 - 59 [facility] Cholesterol in LDL [Mass/Vol] 66 mg/dL 10 - 130 mg/dL [facility] Comment on above: National Cholesterol Education Program Guidelines: LDL Cholesterol Optimal: <100 mg/dL Near Optimal/above Optimal: 100-129 mg/dL Borderline High: 130-159 mg/dL High: 160-189 mg/dL Very High: greater than or equal to 190 mg/dL Cholesterol non HDL [Mass/Vol] 91 mg/dL [facility] Comment on above: National Cholesterol Education Program Guidelines: NON HDL Cholesterol Desirable: <130 mg/dL Borderline High: 130-159 mg/dL High: 160-189 mg/dL Very High: > or = 190 mg/dL Cholesterol.total/Roma sterol in HDL [Mass ratio] 3.9 {ratio} ratio [facility] Comment on above: Males Cholesterol/HD L Ratio: Average risk: 5.0 1/2 average risk: 3.4 2 x average risk: 9.6 Interpretation and review of laboratory results Abnormal [facility] Triglyceride [Mass/Vol] 124 mg/dL 30 - 150 mg/dL [facility] US ANKLE/BRACHIAL INDICES EX TREMITY LIMITEDon 01-10-2022 US ANKLE/BRACHIAL INDICES EXTREMITY LIMITED Patient Info Name: MIKAYLA PAPPAS Age: 61 years : 1960 Gender: Male Exam Date: 01/09/2022 4:43 PM Patient Status: Inpatient Clay Roaster: Nicolas Verduzco RVT, RD Referring Physician: JET CALVILLO ; Indications - Weakly palpable DP, non palpable PT. Dry eschar to heel Procedure Description 10813 Limited bilateral noninvasive physiologic studies of upper or lower extremity arteries with bidirectional Doppler/PVR waveform analysis at 1-2 levels. Conclusions * Right. * Right below knee amputation. * Left. * Left ankle brachial index is normal. ANUP is 1.24. * Left toe brachial index is normal. . Doppler Lt Posterior Tibial: Biphasic Lt Dorsalis Pedis: Biphasic PVR Lt Ankle: Normal Lt Digit: Normal Rt Brachial: 126 Lt Brachial: 134 Lt Posterior Tibial: 166 Lt Dorsalis Pedis: 140 Lt Digit: 122 1.24 1.04 0.91 . Report Signatures Finalized by Fatmata Cosby MD, MS, RPVI on 01/10/2022 07:33 AM [facility] US DOPPLER CAROTIDon 022 US DOPPLER CAROTID Patient Info Name: MIKAYLA PAPPAS Age: 61 years : 1960 Gender: Male Exam Date: 01/10/2022 2:10 PM Patient Status: Inpatient Clay Roaster: Jorge Reynolds RVT, RDWA Referring Physician: JET CLAVILLO ; Attending Physician: [facility] Indications - carotid bruit Procedure Description 61262 Duplex examination using B-mode, color and spectral Doppler of extracranial arteries; complete bilateral study. NASCET criteria is used when performing imaging correlation with carotid duplex interpretation. Conclusions * Right. * 1-49% stenosis of the proximal right internal carotid artery. * Right vertebral artery is patent with antegrade flow. * No evidence of stenosis in the right subclavian artery. * Left. * 1-49% stenosis of the proximal left internal carotid artery. * Left vertebral artery is patent with antegrade flow. * No evidence of stenosis in the left subclavian artery. Measurements Name Value Right PSV Right Prox CCA PSV 112 cm/s Right Mid CCA PSV 128 cm/s Right Distal CCA PSV 105 cm/s Right Prox ICA PSV 97 cm/s Right Mid ICA PSV 95 cm/s Right Distal ICA PSV 88 cm/s Right ECA PSV 117 cm/s Right Vert PSV 57 cm/s Right Prox SCA PSV 216 cm/s Rt ICA/CCA Ratio 0.9 Measurements Name Value Right EDV Right Prox CCA EDV 20 cm/s Right Mid CCA EDV 21 cm/s Right Distal CCA EDV 18 cm/s Right Prox ICA EDV 21 cm/s Right Mid ICA EDV 28 cm/s Right Distal ICA EDV 23 cm/s Right ECA EDV 12 cm/s Right Vert EDV 19 cm/s Measurements Name Value Left PSV Left Prox CCA PSV 150 cm/s Left Mid CCA PSV 143 cm/s Left Distal CCA PSV 132 cm/s Left Prox ICA PSV 100 cm/s Left Mid ICA PSV 107 cm/s Left Distal ICA PSV 109 cm/s Left ECA PSV 104 cm/s Left Vert PSV 60 cm/s Left Prox SCA PSV 120 cm/s Lt ICA/CCA Ratio 0.8 Measurements Name Value Left EDV Left Prox CCA EDV 30 cm/s Left Mid CCA EDV 28 cm/s Left Distal CCA EDV 23 cm/s Left Prox ICA EDV 20 cm/s Left Mid ICA EDV 34 cm/s Left Distal ICA EDV 31 cm/s Left ECA EDV 13 cm/s Left Vert EDV 16 cm/s Right Findings * There is mild heterogeneous plaque in the proximal right internal carotid artery that suggests a mild (1-49%) stenosis. Left Findings * There is mild heterogeneous plaque in the proximal left internal carotid artery that suggests a mild (1-49%) stenosis. . Report Signatures Finalized by Fatmata Cosby MD, MS, RPVI on 01/10/2022 08:01 PM [facility] US DUPLEX ARTERIAL LEGS BRICE Garcia 01-10-2022 US DUPLEX ARTERIAL LEGS BILATERAL Patient Info Name: MIKAYLA PAPPAS Age: 61 years : 1960 Gender: Male Exam Date: 01/09/2022 4:01 PM Patient Status: Inpatient Clay Roaster: Eden Alexander, SUJATHA, RDMS Referring Physician: JET CALVILLO ; Indications - Weakly palpable DP, non palpable PT. Dry eschar to heel Procedure Description 95389 Duplex scan of lower extremity arteries or arterial bypass grafts using B-mode, color and spectral Doppler; complete bilateral study. Conclusions * Right. * No evidence of hemodynamically significant stenosis of the right lower extremity. * Right below knee amputation. * Left. * A significant stenosis (50-99%) is noted in the left proximal anterior tibial artery (ratio 4.8) . Measurements Name Value Right PSV Right Distal EIA PSV 200 cm/s Right Mid LABELING ASSOCIATE PSV 149 cm/s Right Prox Profunda PSV 141 cm/s Right Prox SFA PSV 115 cm/s Right Mid SFA PSV 97 cm/s Right Distal SFA PSV 73 cm/s Right Prox Pop A PSV 84 cm/s Right Mid Pop A PSV 54 cm/s Right Distal Pop A PSV 58 cm/s Left Arterial Measurements Name Value Left PSV Left Distal EIA PSV 187 cm/s Left Mid LABELING ASSOCIATE PSV 163 cm/s Left Prox Profunda PSV 145 cm/s Left Prox SFA PSV 126 cm/s Left Mid SFA PSV 127 cm/s Left Distal SFA PSV 114 cm/s Left Prox Pop A PSV 110 cm/s Left Mid Pop A PSV 99 cm/s Left Distal Pop A PSV 105 cm/s Left Prox KIM PSV 503 cm/s Left Mid KIM PSV 93 cm/s Left Distal KIM PSV 81 cm/s Left Prox Jeannette A PSV 84 cm/s Left Mid Jeannette A PSV 96 cm/s Left Distal Jeannette A PSV 105 cm/s Left Prox YOUTH LIAISON OFFICER PSV 136 cm/s Left Mid YOUTH LIAISON OFFICER PSV 110 cm/s Left Distal YOUTH LIAISON OFFICER PSV 117 cm/s Left ANUP 1.24 . Report Signatures Finalized by Fatmata Cosby MD, MS, RPVI on 01/10/2022 07:36 AM [facility] US Doppler ankle/brachial in dexon 01-10-2022 Patient Info Name: MIKAYLA PAPPAS Age: 61 years : 1960 Gender: Male Exam Date: 01/09/2022 4:43 PM Patient Status: Inpatient Clay Roaster: Nicolas Verduzco RVT, RDCS Referring Physician: JET CALVILLO ; Indications - Weakly palpable DP, non palpable PT. Dry eschar to heel Procedure Description 64103 Limited bilateral noninvasive physiologic studies of upper or lower extremity arteries with bidirectional Doppler/PVR waveform analysis at 1-2 levels. Conclusions * Right. * Right below knee amputation. * Left. * Left ankle brachial index is normal. ANUP is 1.24. * Left toe brachial index is normal. . Doppler Lt Posterior Tibial: Biphasic Lt Dorsalis Pedis: Biphasic PVR Lt Ankle: Normal Lt Digit: Normal Rt Brachial: 126 Lt Brachial: 134 Lt Posterior Tibial: 166 Lt Dorsalis Pedis: 140 Lt Digit: 122 1.24 1.04 0.91 . Report Signatures Finalized by Fatmata Cosby MD, MS, RPVI on 01/10/2022 07:33 AM [facility] Fatmata Cosby MD - 01/10/2022 Patient Info Name: MIKAYLA PAPPAS Age: 61 years : 1960 Gender: Male Exam Date: 01/09/2022 4:43 PM Patient Status: Inpatient Clay Roaster: Nicolas Verduzco RVT, RD Referring Physician: JET CALVILLO ; Indications - Weakly palpable DP, non palpable PT. Dry eschar to heel Procedure Description 52462 Limited bilateral noninvasive physiologic studies of upper or lower extremity arteries with bidirectional Doppler/PVR waveform analysis at 1-2 levels. Conclusions * Right. * Right below knee amputation. * Left. * Left ankle brachial index is normal. ANUP is 1.24. * Left toe brachial index is normal. . Doppler Lt Posterior Tibial: Biphasic Lt Dorsalis Pedis: Biphasic PVR Lt Ankle: Normal Lt Digit: Normal Rt Brachial: 126 Lt Brachial: 134 Lt Posterior Tibial: 166 Lt Dorsalis Pedis: 140 Lt Digit: 122 1.24 1.04 0.91 . Report Signatures Finalized by Fatmata Cosby MD, MS, RPVI on 01/10/2022 07:33 AM [facility] US Doppler ankle/brachial in dexOrdered By: Fatmata Cosby on 01-10-2022 [facility] Work Phone: Ultrasound duplex arterial l eghéctor rebollar 01-10-2022 Patient Info Name: MIKAYLA PAPPAS Age: 61 years : 1960 Gender: Male Exam Date: 01/09/2022 4:01 PM Patient Status: Inpatient Clay Roaster: Eden Alexander RVT, RDWA Referring Physician: JET CALVILLO ; Indications - Weakly palpable DP, non palpable PT. Dry eschar to heel Procedure Description 97952 Duplex scan of lower extremity arteries or arterial bypass grafts using B-mode, color and spectral Doppler; complete bilateral study. Conclusions * Right. * No evidence of hemodynamically significant stenosis of the right lower extremity. * Right below knee amputation. * Left. * A significant stenosis (50-99%) is noted in the left proximal anterior tibial artery (ratio 4.8) . Measurements Name Value Right PSV Right Distal EIA PSV 200 cm/s Right Mid LABELING ASSOCIATE PSV 149 cm/s Right Prox Profunda PSV 141 cm/s Right Prox SFA PSV 115 cm/s Right Mid SFA PSV 97 cm/s Right Distal SFA PSV 73 cm/s Right Prox Pop A PSV 84 cm/s Right Mid Pop A PSV 54 cm/s Right Distal Pop A PSV 58 cm/s Left Arterial Measurements Name Value Left PSV Left Distal EIA PSV 187 cm/s Left Mid LABELING ASSOCIATE PSV 163 cm/s Left Prox Profunda PSV 145 cm/s Left Prox SFA PSV 126 cm/s Left Mid SFA PSV 127 cm/s Left Distal SFA PSV 114 cm/s Left Prox Pop A PSV 110 cm/s Left Mid Pop A PSV 99 cm/s Left Distal Pop A PSV 105 cm/s Left Prox KIM PSV 503 cm/s Left Mid KIM PSV 93 cm/s Left Distal KIM PSV 81 cm/s Left Prox Jeannette A PSV 84 cm/s Left Mid Jeannette A PSV 96 cm/s Left Distal Jeannette A PSV 105 cm/s Left Prox YOUTH LIAISON OFFICER PSV 136 cm/s Left Mid YOUTH LIAISON OFFICER PSV 110 cm/s Left Distal YOUTH LIAISON OFFICER PSV 117 cm/s Left ANUP 1.24 . Report Signatures Finalized by Fatmata Cosby MD, MS, RPVI on 01/10/2022 07:36 AM [facility] Fatmata Nickerson MD - 01/10/2022 Patient Info Name: MIKAYLA PAPPAS Age: 61 years : 1960 Gender: Male Exam Date: 01/09/2022 4:01 PM Patient Status: Inpatient Clay Roaster: Eden Alexander RVT, RUST Referring Physician: JET CALVILLO ; Indications - Weakly palpable DP, non palpable PT. Dry eschar to heel Procedure Description 65332 Duplex scan of lower extremity arteries or arterial bypass grafts using B-mode, color and spectral Doppler; complete bilateral study. Conclusions * Right. * No evidence of hemodynamically significant stenosis of the right lower extremity. * Right below knee amputation. * Left. * A significant stenosis (50-99%) is noted in the left proximal anterior tibial artery (ratio 4.8) . Measurements Name Value Right PSV Right Distal EIA PSV 200 cm/s Right Mid LABELING ASSOCIATE PSV 149 cm/s Right Prox Profunda PSV 141 cm/s Right Prox SFA PSV 115 cm/s Right Mid SFA PSV 97 cm/s Right Distal SFA PSV 73 cm/s Right Prox Pop A PSV 84 cm/s Right Mid Pop A PSV 54 cm/s Right Distal Pop A PSV 58 cm/s Left Arterial Measurements Name Value Left PSV Left Distal EIA PSV 187 cm/s Left Mid LABELING ASSOCIATE PSV 163 cm/s Left Prox Profunda PSV 145 cm/s Left Prox SFA PSV 126 cm/s Left Mid SFA PSV 127 cm/s Left Distal SFA PSV 114 cm/s Left Prox Pop A PSV 110 cm/s Left Mid Pop A PSV 99 cm/s Left Distal Pop A PSV 105 cm/s Left Prox KIM PSV 503 cm/s Left Mid KIM PSV 93 cm/s Left Distal KIM PSV 81 cm/s Left Prox Jeannette A PSV 84 cm/s Left Mid Jeannette A PSV 96 cm/s Left Distal Jeannette A PSV 105 cm/s Left Prox YOUTH LIAISON OFFICER PSV 136 cm/s Left Mid YOUTH LIAISON OFFICER PSV 110 cm/s Left Distal YOUTH LIAISON OFFICER PSV 117 cm/s Left ANUP 1.24 . Report Signatures Finalized by Fatmata Cosby MD, MS, RPVI on 01/10/2022 07:36 AM [facility] Ultrasound duplex carotidon 01-10-2022 Patient Info Name: MIKAYLA PAPPAS Age: 61 years : 1960 Gender: Male Exam Date: 01/10/2022 2:10 PM Patient Status: Inpatient Clay Roaster: Jorge Reynolds, SUJATHA, MS Referring Physician: JET CALVILLO ; Attending Physician: [facility] Indications - carotid bruit Procedure Description 67999 Duplex examination using B-mode, color and spectral Doppler of extracranial arteries; complete bilateral study. NASCET criteria is used when performing imaging correlation with carotid duplex interpretation. Conclusions * Right. * 1-49% stenosis of the proximal right internal carotid artery. * Right vertebral artery is patent with antegrade flow. * No evidence of stenosis in the right subclavian artery. * Left. * 1-49% stenosis of the proximal left internal carotid artery. * Left vertebral artery is patent with antegrade flow. * No evidence of stenosis in the left subclavian artery. Measurements Name Value Right PSV Right Prox CCA PSV 112 cm/s Right Mid CCA PSV 128 cm/s Right Distal CCA PSV 105 cm/s Right Prox ICA PSV 97 cm/s Right Mid ICA PSV 95 cm/s Right Distal ICA PSV 88 cm/s Right ECA PSV 117 cm/s Right Vert PSV 57 cm/s Right Prox SCA PSV 216 cm/s Rt ICA/CCA Ratio 0.9 Measurements Name Value Right EDV Right Prox CCA EDV 20 cm/s Right Mid CCA EDV 21 cm/s Right Distal CCA EDV 18 cm/s Right Prox ICA EDV 21 cm/s Right Mid ICA EDV 28 cm/s Right Distal ICA EDV 23 cm/s Right ECA EDV 12 cm/s Right Vert EDV 19 cm/s Measurements Name Value Left PSV Left Prox CCA PSV 150 cm/s Left Mid CCA PSV 143 cm/s Left Distal CCA PSV 132 cm/s Left Prox ICA PSV 100 cm/s Left Mid ICA PSV 107 cm/s Left Distal ICA PSV 109 cm/s Left ECA PSV 104 cm/s Left Vert PSV 60 cm/s Left Prox SCA PSV 120 cm/s Lt ICA/CCA Ratio 0.8 Measurements Name Value Left EDV Left Prox CCA EDV 30 cm/s Left Mid CCA EDV 28 cm/s Left Distal CCA EDV 23 cm/s Left Prox ICA EDV 20 cm/s Left Mid ICA EDV 34 cm/s Left Distal ICA EDV 31 cm/s Left ECA EDV 13 cm/s Left Vert EDV 16 cm/s Right Findings * There is mild heterogeneous plaque in the proximal right internal carotid artery that suggests a mild (1-49%) stenosis. Left Findings * There is mild heterogeneous plaque in the proximal left internal carotid artery that suggests a mild (1-49%) stenosis. . Report Signatures Finalized by Fatmata Cosby MD, MS, RPVI on 01/10/2022 08:01 PM [facility] Harjeet, Fatmata Zamarripa MD - 01/10/2022 Patient Info Name: MIKAYLA PAPPAS Age: 61 years : 1960 Gender: Male Exam Date: 01/10/2022 2:10 PM Patient Status: Inpatient Clay Roaster: Jorge Reynolds, SUJATHA, RDMS Referring Physician: JET CALVILLO ; Attending Physician: [facility] Indications - carotid bruit Procedure Description 61432 Duplex examination using B-mode, color and spectral Doppler of extracranial arteries; complete bilateral study. NASCET criteria is used when performing imaging correlation with carotid duplex interpretation. Conclusions * Right. * 1-49% stenosis of the proximal right internal carotid artery. * Right vertebral artery is patent with antegrade flow. * No evidence of stenosis in the right subclavian artery. * Left. * 1-49% stenosis of the proximal left internal carotid artery. * Left vertebral artery is patent with antegrade flow. * No evidence of stenosis in the left subclavian artery. Measurements Name Value Right PSV Right Prox CCA PSV 112 cm/s Right Mid CCA PSV 128 cm/s Right Distal CCA PSV 105 cm/s Right Prox ICA PSV 97 cm/s Right Mid ICA PSV 95 cm/s Right Distal ICA PSV 88 cm/s Right ECA PSV 117 cm/s Right Vert PSV 57 cm/s Right Prox SCA PSV 216 cm/s Rt ICA/CCA Ratio 0.9 Measurements Name Value Right EDV Right Prox CCA EDV 20 cm/s Right Mid CCA EDV 21 cm/s Right Distal CCA EDV 18 cm/s Right Prox ICA EDV 21 cm/s Right Mid ICA EDV 28 cm/s Right Distal ICA EDV 23 cm/s Right ECA EDV 12 cm/s Right Vert EDV 19 cm/s Measurements Name Value Left PSV Left Prox CCA PSV 150 cm/s Left Mid CCA PSV 143 cm/s Left Distal CCA PSV 132 cm/s Left Prox ICA PSV 100 cm/s Left Mid ICA PSV 107 cm/s Left Distal ICA PSV 109 cm/s Left ECA PSV 104 cm/s Left Vert PSV 60 cm/s Left Prox SCA PSV 120 cm/s Lt ICA/CCA Ratio 0.8 Measurements Name Value Left EDV Left Prox CCA EDV 30 cm/s Left Mid CCA EDV 28 cm/s Left Distal CCA EDV 23 cm/s Left Prox ICA EDV 20 cm/s Left Mid ICA EDV 34 cm/s Left Distal ICA EDV 31 cm/s Left ECA EDV 13 cm/s Left Vert EDV 16 cm/s Right Findings * There is mild heterogeneous plaque in the proximal right internal carotid artery that suggests a mild (1-49%) stenosis. Left Findings * There is mild heterogeneous plaque in the proximal left internal carotid artery that suggests a mild (1-49%) stenosis. . Report Signatures Finalized by Fatmata Cosby MD, MS, RPVI on 01/10/2022 08:01 PM [facility] Radiology Study observation (narrative) [facility] XR CHEST PA/APon 01-10-2022 XR CHEST PA/AP EXAMINATION: ONE XRAY VIEW OF THE CHEST 01/10/2022 12:01 pm COMPARISON: 10/19/2020 HISTORY: ORDERING SYSTEM PROVIDED HISTORY: Pre-op evaluation; TECHNOLOGIST PROVIDED HISTORY: Illness/Other Acuity: Acute Reason for Exam: Pre-op evaluation Cancer History: unk Surgery, Radiation History: unk Type of Encounter: Initial Additional signs and symptoms: unk ORDERING SYSTEM PROVIDED DIAGNOSIS CODES: E11.628 Diabetic foot infection ([facility]) L08.9 Diabetic foot infection ([facility]) T14.8XXA Wound infection L08.9 Wound infection E13.621 Diabetic ulcer of left foot associated with diabetes mellitus of other type, with other ulcer severity, unspecified part of foot ([facility]) L97.528 Diabetic ulcer of left foot associated with diabetes mellitus of other type, with other ulcer severity, unspecified part of foot ([facility]) E11.610 Type 2 diabetes mellitus with diabetic neuropathic arthropathy, with long-term current use of insulin (HCC) Z79.4 Type 2 diabetes mellitus with diabetic neuropathic arthropathy, with long-term current use of insulin ([facility]) R33.9 Urinary retention D64.9 Normocytic anemia Z86.73 History of CVA (cerebrovascular accident) E78.5 Hyperlipidemia, unspecified hyperlipidemia type I10 Essential hypertension F32.A Depression, unspecified depression type G47.33 LORENA (obstructive sleep apnea) FINDINGS: Poor inspiration. Cardiomegaly. Normal pulmonary vasculature. No focal consolidation, pleural effusion, pneumothorax. IMPRESSION: Low lung volume portable chest radiograph with grossly clear lungs. Workstation ID: [id number] Dictated by: TREVOR WILL on SatJan 10, 2022 1:36:22 PM EST Transcribed by: TREVOR WILL on SatJan 10, 2022 1:36:22 PM EST Finalized by: TREVOR WILL on SatJan 10, 2022 1:36:22 PM EST [facility] Comment on above: Order Comment: Injur y/Trauma or Illness?:Illness/Other How long have you had these symptoms (acute/chronic)?:Acute Reason for exam?:Pre-op evaluation History of cancer?:unk Surgeries, chemotherapy, or radiation?:unk Type of Exam?:Initial Additional signs and symptoms?:unk XR Chest 1 Viewon 01-10-2022 Low lung volume portable chest radiograph with grossly clear lungs. Workstation ID: [id number] GE RIS EXAMINATION: ONE XRAY VIEW OF THE CHEST 01/10/2022 12:01 pm COMPARISON: 10/19/2020 HISTORY: ORDERING SYSTEM PROVIDED HISTORY: Pre-op evaluation; TECHNOLOGIST PROVIDED HISTORY: Illness/Other Acuity: Acute Reason for Exam: Pre-op evaluation Cancer History: unk Surgery, Radiation History: unk Type of Encounter: Initial Additional signs and symptoms: unk ORDERING SYSTEM PROVIDED DIAGNOSIS CODES: E11.628 Diabetic foot infection (HCC) L08.9 Diabetic foot infection (HCC) T14.8XXA Wound infection L08.9 Wound infection E13.621 Diabetic ulcer of left foot associated with diabetes mellitus of other type, with other ulcer severity, unspecified part of foot (HCC) L97.528 Diabetic ulcer of left foot associated with diabetes mellitus of other type, with other ulcer severity, unspecified part of foot (HCC) E11.610 Type 2 diabetes mellitus with diabetic neuropathic arthropathy, with long-term current use of insulin (HCC) Z79.4 Type 2 diabetes mellitus with diabetic neuropathic arthropathy, with long-term current use of insulin (HCC) R33.9 Urinary retention D64.9 Normocytic anemia Z86.73 History of CVA (cerebrovascular accident) E78.5 Hyperlipidemia, unspecified hyperlipidemia type I10 Essential hypertension F32.A Depression, unspecified depression type G47.33 LORENA (obstructive sleep apnea) FINDINGS: Poor inspiration. Cardiomegaly. Normal pulmonary vasculature. No focal consolidation, pleural effusion, pneumothorax. Trevor Ennis MD - 01/10/2022 EXAMINATION: ONE XRAY VIEW OF THE CHEST 01/10/2022 12:01 pm COMPARISON: 10/19/2020 HISTORY: ORDERING SYSTEM PROVIDED HISTORY: Pre-op evaluation; TECHNOLOGIST PROVIDED HISTORY: Illness/Other Acuity: Acute Reason for Exam: Pre-op evaluation Cancer History: unk Surgery, Radiation History: unk Type of Encounter: Initial Additional signs and symptoms: unk ORDERING SYSTEM PROVIDED DIAGNOSIS CODES: E11.628 Diabetic foot infection (HCC) L08.9 Diabetic foot infection (HCC) T14.8XXA Wound infection L08.9 Wound infection E13.621 Diabetic ulcer of left foot associated with diabetes mellitus of other type, with other ulcer severity, unspecified part of foot (HCC) L97.528 Diabetic ulcer of left foot associated with diabetes mellitus of other type, with other ulcer severity, unspecified part of foot ([facility]) E11.610 Type 2 diabetes mellitus with diabetic neuropathic arthropathy, with long-term current use of insulin ([facility]) Z79.4 Type 2 diabetes mellitus with diabetic neuropathic arthropathy, with long-term current use of insulin ([facility]) R33.9 Urinary retention D64.9 Normocytic anemia Z86.73 History of CVA (cerebrovascular accident) E78.5 Hyperlipidemia, unspecified hyperlipidemia type I10 Essential hypertension F32.A Depression, unspecified depression type G47.33 LORENA (obstructive sleep apnea) FINDINGS: Poor inspiration. Cardiomegaly. Normal pulmonary vasculature. No focal consolidation, pleural effusion, pneumothorax. IMPRESSION: Low lung volume portable chest radiograph with grossly clear lungs. Workstation ID: [id number] [facility] Radiology Study observation (narrative) [place] XR Chest 1 ViewOrdered By: Amber Will on 01-10-2022 [facility] Work Phone: B12/Folateon 01-09-2022 Cobalamin (Vitamin B12) [Mass/Vol] 932 pg/mL 232 - 1245 pg/mL [facility] Folate [Mass/Vol] 12.4 ng/mL 3.1 - 17.5 ng/mL [facility] Comment on above: Deficient <2.2 Borderline 2.2 - 3.0 Excessive >17.5 Interpretation and review of laboratory results Normal [facility] Basic metabolic 2000 panelon 01-09-2022 Anion gap [Moles/Vol] 17 mmol/L 10 - 2 0 mmol/L [facility] Calcium [Mass/Vol] 9.5 mg/dL 8.4 - 10. 2 mg/dL [facility] Chloride [Moles/Vol] 100 mmol/L 98 - 10 8 mmol/L [facility] Creatinine [Mass/Vol] 1.30 mg/dL 0.50 - 1.30 [facility] GFR/1.73 sq M.predicted CKD-EPI (S/P/Bld) [Vol rate/Area] 59 Low >=60 mL/min/1.73 m2 [facility] Glucose [Mass/Vol] 199 mg/dL High 65 - 99 mg/dL [facility] HCO3 [Moles/Vol] 26 mmol/L 21 - 32 mmol/L [facility] Potassium [Moles/Vol] 4.8 mmol/L 3.5 - 5.1 mmol/L [facility] Sodium [Moles/Vol] 138 mmol/L 135 - 145 mmol/L [facility] Urea nitrogen [Mass/Vol] 48 mg/dL High 8 - 25 mg/dL [facility] Urea nitrogen/Creatinine [Mass ratio] 36.9 mg/mg High [facility] The eGFR should be u sed for monitoring renal function only and not for medication dosing. [facility] CBC Auto Differentialon Basophils (Bld) [#/Vol] 0.02 10*3/uL [facility] Basophils/100 WBC (Bld) 0.2 % [facility] Eosinophils (Bld) [#/Vol] 0.42 10*3/uL [facility] Eosinophils/100 WBC (Bld) 3.7 % [facility] Erythrocyte distribution width (RBC) [Entitic vol] 13.4 % 11.6 - 14.8 % [facility] Hematocrit (Bld) [Volume fraction] 25.8 % Low 41.0 - 53.0 % [facility] Hemoglobin (Bld) [Mass/Vol] 8.4 g/dL Low 13.5 - 17.5 g/dL [facility] Immature granulocytes (Bld) [#/Vol] 0.14 10*3/uL [facility] Immature granulocytes/100 WBC (Bld) 1.20 % [facility] Comment on above: The IG parameter is the percentage of metamyelocytes, myelocytes and promyelocytes. An immature granulocyte count (IG) of 1% or more suggests the possibility of infection, an IG count of 3% is very likely related to an infection. Interpretation and review of laboratory results Abnormal [facility] Lymphocytes (Bld) [#/Vol] 1.92 10*3/uL [facility] Lymphocytes/100 WBC (Bld) 17.0 % [facility] MCH (RBC) [Entitic mass] 29.0 pg 26.0 - 34.0 pg [facility] MCHC (RBC) [Mass/Vol] 32.6 g/dL 31.0 - 37.0 g/dL [facility] MCV (RBC) [Entitic vol] 89.0 fL 80.0 - 100.0 fL [facility] Monocytes (Bld) [#/Vol] 1.14 10*3/uL High [facility] Monocytes/100 WBC (Bld) 10.1 % [facility] Neutrophils (Bld) [#/Vol] 7.65 10*3/uL High [facility] Neutrophils/100 WBC (Bld) 67.8 % [facility] Nucleated RBC (Bld) [#/Vol] 0.00 10*3/uL [facility] Nucleated RBC/100 WBC (Bld) [Ratio] 0.0 % [facility] Platelet mean volume (Bld) [Entitic vol] 8.5 fL Low 9.4 - 12.4 fL [facility] Platelets (Bld) [#/Vol] 316 10*3/uL [facility] RBC (Bld) [#/Vol] 2.90 10*6/uL Low [facility] ealth WBC (Bld) [#/Vol] 11.29 10*3/uL [facility] COVID-19, MOLECULARon 2021 SARS-CoV-2 (COVID-19) RNA PAT+probe Ql (Unsp spec) Not detected Normal Not Detected [facility] Comment on above: Order Comment: This test was performed under the FDA's Emergency Use Authorization (EUA). Testing was performed using the [employer] Elvia SARS-CoV-2 RT-PCR AND Influenza A/B Nucleic Acid Test on the Elvia [employer]ell System. This test has not been approved for use in asymptomatic patients and its performance in this patient population has not been evaluated. Negative results do not rule out the presence of SARS-CoV-2, influenza A, and/or influenza B. Fact sheets for the EUA can be found at the following links: For Healthcare Providers: https://www.fda.gov/media/361604/download For Patients: https://www.fda.gov/media/306527/download Performed By: #### L [id number] #### C LAB [facility] [address] [place], [place] [address] Elijah Trotter M.D. [id number] COVID-19, MolecularOrdered B y: Ashley Galvin on 01-09-2022 SARS-CoV-2 (COVID-19) RNA PAT+probe Ql (Resp) Not detected Not Detected [facility] CRP, Inflammationon 01-10-20 CRP [Mass/Vol] 28.4 mg/L High 0.0 - 10.0 mg/L [facility] ESR Westergren method (Bld) [Velocity]Ordered By: Alona Kumar on 01-09-2022 ESR (Bld) [Velocity] 74 mm/h High [facility] Interpretation and review of laboratory results Abnormal [facility] Glucose (Bld) [Mass/Vol]on 0 01-09-2022 Glucose [Mass/Vol] 154 mg/dL High 65 - 99 mg/dL [facility] Interpretation and review of laboratory results Abnormal [facility] Glucose [Mass/Vol] 240 mg/dL High 65 - 99 mg/dL [facility] Interpretation and review of laboratory results Abnormal [facility] HbA1c (Bld) [Mass fraction]o n 01-09-2022 Average glucose Estimated from glycated hemoglobin (Bld) [Mass/Vol] 146 mg/dL High 74 - 114 mg/dL [facility] Interpretation and review of laboratory results Abnormal [facility] Hemoglobin A1con 01-09-2022 HbA1c (Bld) [Mass fraction] 6.7 % High 4.2 - 5.6 % [facility] Iron Study with Ferritinon 0 01-09-2022 Ferritin [Mass/Vol] 423 ng/mL High 30 - 400 ng/mL [facility] Interpretation and review of laboratory results Abnormal [facility] Iron [Mass/Vol] 36 ug/dL Low [facility] Iron binding capacity [Mass/Vol] 225 [facility] Iron saturation [Mass fraction] 16 % Low 20 - 50 % [facility] Lactate [Moles/Vol]on 2021 Interpretation and review of laboratory results Normal [facility] Lactic Acid, Plasmaon 2021 Lactate [Moles/Vol] 1.1 mmol/L 0.6 - 2. 0 mmol/L [facility] Light Blue Topon 01-09-2022 Extra Tube Hold for add-ons. [facility] Comment on above: Auto resulted. [facility] MR FOOT LEFT WITHOUT CONTRAS Ton 01-09-2022 MR FOOT LEFT WITHOUT CONTRAST EXAMINATION: MRI OF THE LEFT HINDFOOT WITHOUT CONTRAST; MRI OF THE LEFT FOOT WITHOUT CONTRAST 01/09/2022 TECHNIQUE: Multiplanar, multisequence MRI of the left hindfoot was performed without the administration of intravenous contrast.; Multiplanar, multisequence MRI of the left foot was performed without the administration of intravenous contrast. COMPARISON: 07/26/2020. HISTORY: ORDERING SYSTEM PROVIDED HISTORY: Please include foot and heel. Concern for possible OM at 5th MT, probes deeply to periosteum. Dry well-adhered eschar to calcaneus with no deep probe. No gross purulence on exam; TECHNOLOGIST PROVIDED HISTORY: Illness/Other Acuity: Unknown Reason for Exam: Diabetic ulcer of left foot associated with diabetes mellitus of other type, with other ulcer severity, unspecified part of foot ([facility]) Type of Encounter: Ongoing Additional signs and symptoms: Diabetic ulcer of left foot associated with diabetes mellitus of other type, with other ulcer severity, unspecified part of foot ([facility]) ORDERING SYSTEM PROVIDED DIAGNOSIS CODES: E11.628 Diabetic foot infection ([facility]) L08.9 Diabetic foot infection ([facility]) T14.8XXA Wound infection L08.9 Wound infection; ORDERING SYSTEM PROVIDED HISTORY: Concern for possible OM at 5th MT, probes deeply to periostum. Dry well-adhered eschar to calcaneus with no deep probe. No gross purulence on exam; FINDINGS: Motion artifact is present. Hindfoot: Plantar heel ulceration is present on the posterior lateral aspect of the heel soft tissues. No surrounding abscess or fluid collection in the heel soft tissues. Adjacent to the ulcer crater, there is focal marrow edema in the plantar aspect of the calcaneus with associated decreased T1 signal extending for a length of approximately 2 x 1.5 cm with a depth of up to 1 cm concerning for acute osteomyelitis in the plantar calcaneus. Bone marrow signal in the talus, distal tibia and distal fibula is maintained. Bone marrow signal in the cuboid and midfoot bones is maintained. No discrete evidence of tendon tear or tenosynovitis. Superficial soft tissue edema is noted in the ankle. Intramuscular edema is present with muscle atrophy involving the plantar musculature of the foot likely representing neuropathy. No evidence of joint effusion. Forefoot: Plantar lateral forefoot ulcer is present adjacent to the 5th MTP joint with surrounding cellulitis. There is edema along the ulcer crater without discrete fluid collection or drainable abscess. Marrow edema is present in the 5th metatarsal head and neck. Marrow edema throughout the proximal phalanx 5th digit. Findings are compatible with acute osteomyelitis given the proximity to the ulcer. Bone marrow signal in the 4th digit and 4th metatarsal is maintained. Increased signal is noted in the distal phalanx of the 1st, 2nd and 3rd digit which is nonspecific. This could be due to inhomogeneous fat suppression and artifact. Hammertoe deformity of the 2nd through 4th digits. The MTP joints are maintained. No joint effusion. Dorsal superficial soft tissue edema in the foot. IMPRESSION: 1. Acute osteomyelitis in the plantar calcaneus adjacent to the ulcer. 2. Acute osteomyelitis in the 5th metatarsal head and neck and proximal 5th phalanx adjacent to the ulcer. 3. No soft tissue abscess. 4. Nonspecific increased signal in the distal phalanx of the 1st, 2nd and 3rd digits. This could be due to artifact. This finding can also be seen with Raynaud's phenomenon or frostbite injury. 5. Intramuscular edema and atrophy in the plantar foot musculature compatible with neuropathy. [facility] Workstation ID: [id number] Dictated by: LEW HONG on SatJan 10, 2022 7:19:28 AM EST Transcribed by: ANDREW CHOI on SatJan 10, 2022 7:24:45 AM EST Finalized by: LEW HONG on SatJan 13, 2022 9:08:45 PM EST [facility] Comment on above: Order Comment: Injur y/Trauma or Illness?:Illness/Other How long have you had these symptoms (acute/chronic)?:Chronic Reason for exam?:Diabetic ulcer of left foot associated with diabetes mellitus of other type, with other ulcer severity, unspecified part of foot Type of Exam?:Ongoing Additional signs and symptoms?:Diabetic ulcer of left foot associated with diabetes mellitus of other type, with other ulcer severity, unspecified part of foot MR Foot Left Without Contras ton 01-09-2022 Radiology Study observation (narrative) [facility] HEEL LEFT WITHOUT CONTRAS Ton 01-09-2022 MR HEEL LEFT WITHOUT CONTRAST EXAMINATION: MRI OF THE LEFT HINDFOOT WITHOUT CONTRAST; MRI OF THE LEFT FOOT WITHOUT CONTRAST 01/09/2022 TECHNIQUE: Multiplanar, multisequence MRI of the left hindfoot was performed without the administration of intravenous contrast.; Multiplanar, multisequence MRI of the left foot was performed without the administration of intravenous contrast. COMPARISON: 07/26/2020. HISTORY: ORDERING SYSTEM PROVIDED HISTORY: Please include foot and heel. Concern for possible OM at 5th MT, probes deeply to periosteum. Dry well-adhered eschar to calcaneus with no deep probe. No gross purulence on exam; TECHNOLOGIST PROVIDED HISTORY: Illness/Other Acuity: Unknown Reason for Exam: Diabetic ulcer of left foot associated with diabetes mellitus of other type, with other ulcer severity, unspecified part of foot ([facility]) Type of Encounter: Ongoing Additional signs and symptoms: Diabetic ulcer of left foot associated with diabetes mellitus of other type, with other ulcer severity, unspecified part of foot ([facility]) ORDERING SYSTEM PROVIDED DIAGNOSIS CODES: E11.628 Diabetic foot infection ([facility]) L08.9 Diabetic foot infection ([facility]) T14.8XXA Wound infection L08.9 Wound infection; ORDERING SYSTEM PROVIDED HISTORY: Concern for possible OM at 5th MT, probes deeply to periostum. Dry well-adhered eschar to calcaneus with no deep probe. No gross purulence on exam; FINDINGS: Motion artifact is present. Hindfoot: Plantar heel ulceration is present on the posterior lateral aspect of the heel soft tissues. No surrounding abscess or fluid collection in the heel soft tissues. Adjacent to the ulcer crater, there is focal marrow edema in the plantar aspect of the calcaneus with associated decreased T1 signal extending for a length of approximately 2 x 1.5 cm with a depth of up to 1 cm concerning for acute osteomyelitis in the plantar calcaneus. Bone marrow signal in the talus, distal tibia and distal fibula is maintained. Bone marrow signal in the cuboid and midfoot bones is maintained. No discrete evidence of tendon tear or tenosynovitis. Superficial soft tissue edema is noted in the ankle. Intramuscular edema is present with muscle atrophy involving the plantar musculature of the foot likely representing neuropathy. No evidence of joint effusion. Forefoot: Plantar lateral forefoot ulcer is present adjacent to the 5th MTP joint with surrounding cellulitis. There is edema along the ulcer crater without discrete fluid collection or drainable abscess. Marrow edema is present in the 5th metatarsal head and neck. Marrow edema throughout the proximal phalanx 5th digit. Findings are compatible with acute osteomyelitis given the proximity to the ulcer. Bone marrow signal in the 4th digit and 4th metatarsal is maintained. Increased signal is noted in the distal phalanx of the 1st, 2nd and 3rd digit which is nonspecific. This could be due to inhomogeneous fat suppression and artifact. Hammertoe deformity of the 2nd through 4th digits. The MTP joints are maintained. No joint effusion. Dorsal superficial soft tissue edema in the foot. IMPRESSION: 1. Acute osteomyelitis in the plantar calcaneus adjacent to the ulcer. 2. Acute osteomyelitis in the 5th metatarsal head and neck and proximal 5th phalanx adjacent to the ulcer. 3. No soft tissue abscess. 4. Nonspecific increased signal in the distal phalanx of the 1st, 2nd and 3rd digits. This could be due to artifact. This finding can also be seen with Raynaud's phenomenon or frostbite injury. 5. Intramuscular edema and atrophy in the plantar foot musculature compatible with neuropathy. [facility] Workstation ID: [id number] Dictated by: LEW HONG on SatJan 10, 2022 7:19:28 AM EST Transcribed by: ANDREW CHOI on SatJan 10, 2022 7:24:45 AM EST Finalized by: LEW HONG on SatJan 13, 2022 9:08:45 PM EST [facility] Comment on above: Order Comment: Injur y/Trauma or Illness?:Illness/Other How long have you had these symptoms (acute/chronic)?:Unknown Reason for exam?:Diabetic ulcer of left foot associated with diabetes mellitus of other type, with other ulcer severity, unspecified part of foot ([facility]) Type of Exam?:Ongoing Additional signs and symptoms?:Diabetic ulcer of left foot associated with diabetes mellitus of other type, with other ulcer severity, unspecified part of foot ([facility]) MR Heel Left Without Contras ton 01-09-2022 Radiology Study observation (narrative) [facility] No Panel Informationon 03-08 -2022 Extra Tube Hold for add-ons. [facility] Comment on above: Auto resulted. [facility] Interpretation and review of laboratory results Abnormal [facility] SARS-CoV-2 (COVID-19) RNA NA A+probe Ql (Resp)Ordered By: Ashley Galvin on 01-09-2022 Interpretation and review of laboratory results Normal [facility] This test was perfor med under the FDA's Emergency Use Authorization (EUA). Testing was performed using the [employer] SARS-CoV-2 RT-PCR & Influenza A/B Nucleic Acid Test on the [employer] System. This test has not been approved for use in asymptomatic patients and its performance in this patient population has not been evaluated. Negative results do not rule out the presence of SARS-CoV-2, influenza A, and/or influenza B. Fact sheets for the EUA can be found at the following links: For Healthcare Providers: https://www.fda.gov/medi a/422090/download For Patients: https://www.fda.gov/medi a/296321/download [facility] US Doppler ankle/brachial in dexon 01-09-2022 Radiology Study observation (narrative) [facility] Ultrasound duplex arterial l egs bilaton 01-09-2022 Radiology Study observation (narrative) [facility] XR FOOT LEFT 3+ VIEWS (STAND LYDIA)on 01-09-2022 XR FOOT LEFT 3+ VIEWS (STANDARD) EXAMINATION: THREE XRAY VIEWS OF THE LEFT FOOT 01/09/2022 1:39 pm COMPARISON: Left foot radiographs 07/26/2020. HISTORY: ORDERING SYSTEM PROVIDED HISTORY: heel ulcer; TECHNOLOGIST PROVIDED HISTORY: Injury/Trauma Acuity: Acute Reason for Exam: WOUND Cancer History: unk Surgery, Radiation History: unk Type of Encounter: Initial Mechanism of Injury: WOUND FINDINGS: Normal midfoot alignment is maintained. No fracture or dislocation. The joint spaces are grossly preserved. There is a chronic appearing marginal erosion along the lateral aspect of the 2nd metatarsal head new from 07/26/2020. No other erosion identified. Atherosclerotic vascular calcifications are seen. Nonspecific forefoot soft tissue swelling. Suspected shallow soft tissue ulceration of the heel on the lateral view. No soft tissue gas or radiopaque foreign body. IMPRESSION: 1. Suspected shallow soft tissue ulceration of the heel with forefoot soft tissue swelling. No radiographic evidence of osteomyelitis of the calcaneus. 2. Chronic appearing erosion along the lateral aspect of the 2nd metatarsal head new from 07/26/2020. If there is a nearby soft tissue ulceration osteomyelitis is not excluded. Alternatively, this raises the possibility of gout or less likely an inflammatory arthritis. Workstation ID: [id number] Dictated by: MAXWELL MORELAND on SatJan 09, 2022 2:30:27 PM EST Transcribed by: MAXWELL MORELAND on SatJan 09, 2022 2:30:27 PM EST Finalized by: MAXWELL MORELAND on SatJan 09, 2022 2:30:27 PM EST [facility] Comment on above: Order Comment: Injur y/Trauma or Illness?:Injury/Trauma How long have you had these symptoms (acute/chronic)?:Acute Reason for exam?:WOUND History of cancer?:unk Surgeries, chemotherapy, or radiation?:unk Type of Exam?:Initial Mechanism of injury?:WOUND XR Foot Left 3+ Views (Stand lydia)on 01-09-2022 1. Suspected shallow soft tissue ulceration of the heel with forefoot soft tissue swelling. No radiographic evidence of osteomyelitis of the calcaneus. 2. Chronic appearing erosion along the lateral aspect of the 2nd metatarsal head new from 07/26/2020. If there is a nearby soft tissue ulceration osteomyelitis is not excluded. Alternatively, this raises the possibility of gout or less likely an inflammatory arthritis. Workstation ID: [id number] Xunlei EXAMINATION: THREE XRAY VIEWS OF THE LEFT FOOT 01/09/2022 1:39 pm COMPARISON: Left foot radiographs 07/26/2020. HISTORY: ORDERING SYSTEM PROVIDED HISTORY: heel ulcer; TECHNOLOGIST PROVIDED HISTORY: Injury/Trauma Acuity: Acute Reason for Exam: WOUND Cancer History: unk Surgery, Radiation History: unk Type of Encounter: Initial Mechanism of Injury: WOUND FINDINGS: Normal midfoot alignment is maintained. No fracture or dislocation. The joint spaces are grossly preserved. There is a chronic appearing marginal erosion along the lateral aspect of the 2nd metatarsal head new from 07/26/2020. No other erosion identified. Atherosclerotic vascular calcifications are seen. Nonspecific forefoot soft tissue swelling. Suspected shallow soft tissue ulceration of the heel on the lateral view. No soft tissue gas or radiopaque foreign body. Xunlei Maxwell Moreland MD - 01/09/2022 EXAMINATION: THREE XRAY VIEWS OF THE LEFT FOOT 01/09/2022 1:39 pm COMPARISON: Left foot radiographs 07/26/2020. HISTORY: ORDERING SYSTEM PROVIDED HISTORY: heel ulcer; TECHNOLOGIST PROVIDED HISTORY: Injury/Trauma Acuity: Acute Reason for Exam: WOUND Cancer History: unk Surgery, Radiation History: unk Type of Encounter: Initial Mechanism of Injury: WOUND FINDINGS: Normal midfoot alignment is maintained. No fracture or dislocation. The joint spaces are grossly preserved. There is a chronic appearing marginal erosion along the lateral aspect of the 2nd metatarsal head new from 07/26/2020. No other erosion identified. Atherosclerotic vascular calcifications are seen. Nonspecific forefoot soft tissue swelling. Suspected shallow soft tissue ulceration of the heel on the lateral view. No soft tissue gas or radiopaque foreign body. IMPRESSION: 1. Suspected shallow soft tissue ulceration of the heel with forefoot soft tissue swelling. No radiographic evidence of osteomyelitis of the calcaneus. 2. Chronic appearing erosion along the lateral aspect of the 2nd metatarsal head new from 07/26/2020. If there is a nearby soft tissue ulceration osteomyelitis is not excluded. Alternatively, this raises the possibility of gout or less likely an inflammatory arthritis. Workstation ID: [id number] [facility] Radiology Study observation (narrative) [facility] XR Foot Left 3+ Views (Stand lydia)Ordered By: Maxwell Moreland on 01-09-2022 [facility] Work Phone: Ip Diabetes Eye Examon 12-05 Diabetes: Annual Retina Eye Exam Positive [facility] Basic metabolic 2000 panelon 10-15-2021 Anion gap [Moles/Vol] 6 mmol/L Normal 6-18 Angela [facility] Comment on above: Performed By: #### 2 4321-2 #### [facility] [address] [place] [address] Calcium [Mass/Vol] 10.1 mg/dL Normal 8.9-10.3 [facility] Comment on above: Performed By: #### 2 4321-2 #### [facility] [address] [place] [address] Chloride [Moles/Vol] 98 mmol/L Normal 98-107 [facility] Comment on above: Performed By: #### 2 4321-2 #### [facility] [address] [place] [address] CO2 [Moles/Vol] 32 mmol/L Normal 22-32 [facility] Comment on above: Performed By: #### 2 4321-2 #### [facility] [address] [place] [address] Creatinine [Mass/Vol] 0.97 mg/dL Normal 0.60-1.30 Angela [facility] Comment on above: Performed By: #### 2 4321-2 #### [facility] [address] [place] [address] GFR/1.73 sq M.predicted among non-blacks MDRD (S/P/Bld) [Vol rate/Area] 84 mL/min/{1.73_m2} Normal [facility] Comment on above: Performed By: #### 2 4321-2 #### [facility] [address] [place] [address] Glucose [Mass/Vol] 78 mg/dL Normal 70-99 [facility] Comment on above: Performed By: #### 2 4321-2 #### [facility] [address] [place] [address] Potassium [Moles/Vol] 4.4 mmol/L Normal 3.6-5.1 Angela [facility] Comment on above: Performed By: #### 2 4321-2 #### [facility] [address] [place] [address] Sodium [Moles/Vol] 136 mmol/L Normal 136-145 [facility] Comment on above: Performed By: #### 2 4321-2 #### [facility] [address] [place] [address] Urea nitrogen [Mass/Vol] 35 mg/dL High 8-20 [facility] Comment on above: Performed By: #### 2 4321-2 #### [facility] [place] [address] Urea nitrogen/Creatinine [Mass ratio] 36.1 mg/mg High 12.0-20.0 [facility] Comment on above: Performed By: #### 2 4321-2 #### [facility] [address] [place] [address] Anion gap [Moles/Vol] 6 mmol/L [facility] Calcium [Mass/Vol] 10.1 mg/dL 8.9 - 10. 3 mg/dL [facility] Chloride [Moles/Vol] 98 mmol/L 98 - 10 7 mmol/L [facility] CO2 [Moles/Vol] 32 mmol/L 22 - 32 mmol/L [facility] Creatine [Mass/Vol] 0.97 mg/dL 0.60 - 1 .30 mg/dL [facility] GFR/1.73 sq M.predicted MDRD (S/P/Bld) [Vol rate/Area] 84 mL/min/{1.73_m2} mL/min/1.73m 2 [facility] Glucose [Mass/Vol] 78 mg/dL 70 - 99 mg/dL [facility] Interpretation and review of laboratory results Abnormal [facility] Potassium [Moles/Vol] 4.4 mmol/L 3.6 - 5.1 mmol/L [facility] Sodium [Moles/Vol] 136 mmol/L 136 - 145 mmol/L [facility] Urea nitrogen [Mass/Vol] 35 mg/dL High 8 - 20 mg/dL [facility] Urea nitrogen/Creatinine [Mass ratio] 36.1 mg/mg High [facility] [employer] Hemogram and platelets WO di fferential panel (Bld)on 10-15-2021 Basophils (Bld) [#/Vol] 0.00 10*3/uL Normal 0.00-0.20 [facility] Comment on above: Performed By: #### 2 4317-0 #### [facility] [address] [place] [address] Basophils/100 WBC (Bld) 0.4 % Normal 0.0-2.0 [facility] Comment on above: Performed By: #### 2 4317-0 #### [facility] [address] [place] [address] Eosinophils (Bld) [#/Vol] 0.20 10*3/uL Normal 0.00-0.70 [facility] Comment on above: Performed By: #### 2 4317-0 #### [facility] [address] [place] [address] Eosinophils/100 WBC (Bld) 1.8 % Normal 0.0-7.0 [facility] Comment on above: Performed By: #### 2 4317-0 #### [facility] [address] [place] [address] Erythrocyte distribution width (RBC) [Ratio] 16.0 % High 11.0-14.8 [facility] Comment on above: Performed By: #### 2 4317-0 #### [facility] [address] [place] [address] Hematocrit (Bld) [Volume fraction] 27.8 % Low 39.0-49.0 [facility] Comment on above: Performed By: #### 2 4317-0 #### [facility] [address] [place] [address] Hemoglobin (Bld) [Mass/Vol] 9.5 g/dL Low 13.5-17.5 [facility] Comment on above: Performed By: #### 2 4317-0 #### [facility] [address] [place] [address] Lymphocytes (Bld) [#/Vol] 1.70 10*3/uL Normal 1.00-4.80 [facility] Comment on above: Performed By: #### 2 4317-0 #### [facility] [address] [place] [address] Lymphocytes/100 WBC (Bld) 14.7 % Low 22.0-44.0 [facility] Comment on above: Performed By: #### 2 4317-0 #### [facility] [address] [place] [address] MCH 29.1 pcg Normal 27.0-34.0 [facility] Comment on above: Performed By: #### 2 4317-0 #### [facility] [address] [place] [address] MCHC (RBC) [Mass/Vol] 34.1 g/dL Normal 32.0-36.0 Angela [facility] Comment on above: Performed By: #### 2 4317-0 #### [facility] [address] [place] [address] MCV (RBC) [Entitic vol] 85.3 fL Normal 80.0-97.0 M [facility] Comment on above: Performed By: #### 2 4317-0 #### [facility] [address] [place] [address] Monocytes (Bld) [#/Vol] 1.20 10*3/uL High 0.00-0.90 [facility] Comment on above: Performed By: #### 2 4317-0 #### [facility] [address] [place] [address] Monocytes/100 WBC (Bld) 10.3 % Normal 4.0-23.0 M [facility] Comment on above: Performed By: #### 2 4317-0 #### [facility] [address] [place] [address] Neutrophils Absolute 8.40 K/mcL High 1.80-7.70 [facility] Comment on above: Performed By: #### 2 4317-0 #### [facility] [address] [place] [address] Neutrophils/100 WBC (Bld) 72.8 % High 40.0-70.0 [facility] Comment on above: Performed By: #### 2 4317-0 #### [facility] [address] [place] [address] Platelet mean volume (Bld) [Entitic vol] 6.5 fL Normal 6.2-12.1 [facility] Comment on above: Performed By: #### 2 4317-0 #### [facility] [address] [place] [address] Platelets (Bld) [#/Vol] 330 10*3/uL Normal 142-424 [facility] Comment on above: Performed By: #### 2 4317-0 #### [facility] [address] [place] [address] RBC (Bld) [#/Vol] 3.26 10*6/uL Low 4.30-5.70 [facility] Comment on above: Performed By: #### 2 4317-0 #### [facility] [address] [place] [address] WBC (Bld) [#/Vol] 11.6 10*3/uL High 4.6-10.2 [facility] Comment on above: Performed By: #### 2 4317-0 #### [facility] [address] [place] [address] Basophils (Bld) [#/Vol] 0.00 10*3/uL [facility] Basophils/100 WBC (Bld) 0.4 % 0.0 - 2.0 % [facility] Eosinophils (Bld) [#/Vol] 0.20 10*3/uL [facility] Eosinophils/100 WBC (Bld) 1.8 % 0.0 - 7.0 % [facility] Erythrocyte distribution width (RBC) [Ratio] 16.0 % High 11.0 - 14.8 % [facility] Hematocrit (Bld) [Volume fraction] 27.8 % Low 39.0 - 49.0 % [facility] Hemoglobin (Bld) [Mass/Vol] 9.5 g/dL Low 13.5 - 17.5 g/dL [facility] Interpretation and review of laboratory results Abnormal [facility] Lymphocytes (Bld) [#/Vol] 1.70 10*3/uL [facility] Lymphocytes/100 WBC (Bld) 14.7 % Low 22.0 - 44.0 % [facility] MCH (RBC) [Entitic mass] 29.1 pg [facility] MCHC (RBC) [Mass/Vol] 34.1 g/dL 32.0 - 36.0 g/dL [facility] MCV (RBC) [Entitic vol] 85.3 fL [facility] Monocytes (Bld) [#/Vol] 1.20 10*3/uL High [facility] Monocytes/100 WBC (Bld) 10.3 % 4.0 - 23.0 % [facility] Neutrophils (Bld) [#/Vol] 8.40 10*3/uL High [facility] Neutrophils/100 WBC (Bld) 72.8 % High 40.0 - 70.0 % [facility] Platelet mean volume (Bld) [Entitic vol] 6.5 fL [facility] Platelets (Bld) [#/Vol] 330 10*3/uL [facility] RBC (Bld) [#/Vol] 3.26 10*6/uL Low [facility] WBC (Bld) [#/Vol] 11.6 10*3/uL High [facility] Urinalysis dipstick W Reflex Culture panel (U)on 10-15-2021 Bacteria, Urine Rare Abnormal None [facility] Comment on above: Performed By: #### 5 7019-2 #### [facility] [address] [place] [address] Bilirubin, Urine Negative Normal Negative [facility] Comment on above: Performed By: #### 5 7019-2 #### [facility] [address] [place] [address] Blood, Urine Negative Normal Negative [facility] Comment on above: Performed By: #### 7019-2 #### [facility] [place] [facility] [address] [facility] [place] [address] Clarity (U) Clear Normal Clear [facility] Comment on above: Performed By: #### 7019-2 #### [facility] [place] ([facility] [address] [facility] [place] [address] Color (U) Yellow Normal Yellow [facility] Comment on above: Performed By: #### 70-2 #### [facility] [place] ([facility] [address] [facility] [place] [address] Glucose Ql (U) Normal Normal Normal [facility] Comment on above: Performed By: #### 70-2 #### [facility] [place] ([facility] [address] [place] [address] Ketones Ql (U) Negative Normal Negative [facility] Comment on above: Performed By: #### 70-2 #### [facility] [place] ([facility] [address] [place] [address] Leukocytes, Urine 250 WBCs/mcL Abnormal Negative [facility] Comment on above: Performed By: #### 7019-2 #### [facility] [place] ([facility] [address] [place] [address] Nitrite, Urine Negative Normal Negative [facility] Comment on above: Performed By: #### 7019-2 #### [facility] [place] ([facility] [address] [place] [address] pH (U) 7.0 [pH] Normal 5.0-8.0 [facility] Comment on above: Performed By: #### 7019-2 #### [facility] [place] ([facility] [address] [place] [address] Protein (U) [Mass/Vol] 100 mg/dL Abnormal Negative [facility] Comment on above: Performed By: #### 7019-2 #### [facility] [place] ([facility] [address] [place] [address] RBC LM.HPF (Urine sed) [#/Area] 8 /[HPF] High 0-5 [facility] Comment on above: Performed By: #### 5 7019-2 #### [facility] [place] ([facility] LAB [address] [place] [address] Specific [place] Urine 1.012 Normal 1.002-1.030 M ount [facility] Comment on above: Performed By: #### 5 7019-2 #### [facility] [place] ([facility] LAB [address] [place] [address] Urobilinogen, Urine Normal Normal Normal [facility] Comment on above: Performed By: #### 5 7019-2 #### [facility] [place] ([facility] LAB [address] [place] [address] WBC LM.HPF (Urine sed) [#/Area] 32 /[HPF] High 0-5 [facility] Comment on above: Performed By: #### 5 7019-2 #### [facility] [place] ([facility] LAB [address] [place] [address] Bacteria identified Cx Nom (U) 1 ORGANISM 338 Abnormal >691859 CFU/mL Proteus mirabilis The organism value for this result has been updated. These results have been appended to the previously preliminary verified report. -- 1 ORGANISM Antibiotic Result Intrp Ampicillin Susc Islt <=2 ug/ml Susceptible Ampicillin+Sulbac Susc Islt <=2 ug/ml Susceptible ceFAZolin Susc Islt <=4 ug/ml Susceptible cefTRIAXone Susc Islt <=0.25 ug/ml Susceptible Imipenem Susc Islt 4 ug/ml Resistant Gentamicin Susc Islt <=1 ug/ml Susceptible Ciprofloxacin Susc Islt <=0.25 ug/ml Susceptible Nitrofurantoin Susc Islt 128 ug/ml Resistant TMP SMX Susc Islt <=20 ug/ml Susceptible Invalid Interpretation Code [facility] Comment on above: Performed By: #### 5 7019-2 #### [facility] ([facility] LAB [address] [place] [address] Bacteria LM.HPF (Urine sed) [#/Area] Rare Abnormal None /HPF [facility] Bilirubin Ql (U) Negative Negative mg/dL [facility] Clarity (U) Clear Clear [facility] Color (U) Yellow Yellow [facility] Glucose Ql (U) Normal Normal mg/dL [facility] Hemoglobin Ql (U) Negative Negative [facility] Interpretation and review of laboratory results Abnormal [facility] Ketones (U) [Mass/Vol] Negative Negat rod mg/dL [facility] Leukocyte esterase Test strip Ql (U) 250 Abnormal Negative WBCs/mcL [facility] Nitrite Ql (U) Negative Negative [facility] pH (U) 7.0 [pH] 5.0 - 8.0 [facility] Protein (U) [Mass/Vol] 100 mg/dL Abnormal Negat rod mg/dL [facility] RBC LM.HPF (Urine sed) [#/Area] 8 /[HPF] High [facility] Specific gravity (U) [Rel density] 1.012 [facility] Urobilinogen (U) [Mass/Vol] Normal Normal mg/dL [facility] WBC LM.HPF (Urine sed) [#/Area] 32 /[HPF] High [facility] Health Culture Urine + Susceptibili [facility] 07-11-2021 Bacteria identified Cx Nom (U) [facility] Microbiology PROCEDURE: Culture Urine + Susceptibility SOURCE: Urine Indwelling BODY SITE: Catheter COLLECTED DATE/TIME: 07/11/2021 02:30 EDT RECEIVED DATE/TIME: 07/11/2021 02:30 EDT START DATE/TIME: 07/11/2021 02:30 EDT FREE TEXT SOURCE: URINE INDWELLING CATHETER INTERFACED REPORTS Final Report [] Verified Date/Time/Personnel: 07/13/2021 03:44 EDT CONTRIBUTOR_SYSTEM, CO_PN >100,000 CFU/ML PROTEUS MIRABILIS Preliminary Report [] Verified Date/Time/Personnel: 07/12/2021 06:18 EDT CONTRIBUTOR_SYSTEM, CO_PN >100,000 CFU/ML PROTEUS MIRABILIS SENSITIVITY TO FOLLOW SUSCEPTIBILITY RESULTS Proteus mirabilis Antibiotic STEPHIE Interp STEPHIE Dilution Ampicillin Susceptible <=2 Cefazolin Susceptible <=4 Ciprofloxacin Susceptible <=0.25 Gentamicin Susceptible <=1 Imipenem Resistant 4 Nitrofurantoin Resistant 256 Trimethoprim/ Susceptible <=20 Sulfamethoxazole Normal [facility] Comment on above: Performed By: #### 6 9405-9, 67921-5v3, 57642-2, 54585-4, 17052-0 #### [place] [address], [place] ED Pat [facility] 07-11-2021 ED Pat [facility] Emergency Room [address] [place], [place] [address] Emergency Department Discharge Instructions MIKAYLA PAPPAS , Please provide this information to your Primary Care/Specialist Name : MIKAYLA PAPPAS Current Date : 07/11/2021 04:48:35 : 1960 Primary Care Physician : Marilin Gracia DO Diagnosis: Follow-Up Instructions: MIKAYLA PAPPAS has been given these follow-up instructions: FOLLOW-UP APPOINTMENTS: Provider: Specialty: Address: Date: Marilin Gracia DO Internal Medicine [address] [place] [address] [phone] (1) 1 to 2 days Comment: Call for an Appointment Laboratory Orders: Name: Status: Urine Dipstick POCT for Docking Process Completed Urine Dipstick POCT (Uploaded) Completed Culture Urine + Susceptibility Ordered Radiology Orders: None Ordered Diagnostic Tests: None Ordered Procedure(s) and Patient Education(s) : Todd Catheter Care, Adult EMERGENCY SERVICES MEDICATION LIST Lista de Medicaciones de los Servicios de Emergencia Name MIKAYLA PAPPAS MRN ([facility])-[id number] PLEASE READ THE FOLLOWING REGARDING YOUR MEDICATIONS Based on the information available during your visit we have given you the medication instructions below. Continue taking medications you took prior to your visit unless you have been told to change. Please share this information with your own doctor. Carry a list of your medications with you in case of an emergency. Update it when medications are stopped, doses are changed, or new medications (including pogu-bzj-prahrqz products) are added. If you have any questions, check with your doctor. Por la informaci??n disponible rubens gan visita, las instrucciones de medicaci??n aparecen debajo. Favor de continuar tomando las medicaciones Ud. lew?? antes de gan visita por lo menos que hay cambios. Favor de compartir esta informaci??n con gan medico. Lleva medardo lista de medicaciones consigo por dina de emergenc??a. Actualiza la lista cuando Ud. james de randolph las medicaciones, si cambian las dosis, o si hay nuevas medicaciones a??adidas (incluyendo medicaciones vendidas sin prescripci??n). Favor de preguntar a gan medico por cualquier damion. THESE ARE THE MEDICATIONS YOU SHOULD BE TAKING ascorbic acid (Vitamin C 500 mg oral tablet) 1 Tab(s) By Mouth once a day. aspirin (aspirin 81 mg oral tablet, chewable) 1 Tab(s) By Mouth once a day. new med. atorvastatin (atorvastatin 80 mg oral tablet) 1 Tab(s) By Mouth Bedtime. citalopram (citalopram 20 mg oral tablet) 1 Tab(s) By Mouth once a day for 30 Days. Refills: 0. cyanocobalamin (cyanocobalamin 500 mcg oral tablet) 1 Tab(s) By Mouth once a day. doxazosin (doxazosin 4 mg oral tablet) 1 Tab(s) By Mouth once a day. gabapentin (gabapentin 300 mg oral capsule) 1 Capsule By Mouth Bedtime. insulin glargine (insulin glargine 100 unit/ml subcutaneous solution) 20 Unit(s) Subcutaneous Bedtime., Do NOT mix with any other insulin product insulin lispro (Insulin Lispro KwikPen 100 units/mL injectable solution) ac TID Sliding Scale 141-180= 2 units 181- 220= 4 units 221-260= 6 units 261- 300= 8 units. MetFORMIN-SitaGLIPtin (Janumet 50 mg/1000 mg oral tablet) 1 Tab(s) By Mouth once a day. oxybutynin (oxybutynin 10 mg oral tablet, extended release) 1 Tab(s) By Mouth once a day. MEDICATIONS GIVEN DURING MEDICAL VISIT hydromorphone 1 mg last dose given on 07/11/2021 at 02:18 Route: IV Push Administer over 2-5 minutes (for IVP) ondansetron 4 mg last dose given on 07/11/2021 at 02:18 Route: IV Push Administer over 2 minutes (for IV Push) lidocaine topical 1 Appl last dose given on 07/11/2021 at 02:18 Route: Topical NON-MEDICATION PRESCRIPTION SCHEDULING PHONE NUMBER: MEDICATION CHANGE DETAILS (Not your Final Home Medication List) During the course of your visit, your home medication list was updated with the most current information. The details of those changes are shown below: NEW MEDICATIONS None UPDATED MEDICATIONS None UNCHANGED MEDICATIONS Other Medications ascorbic acid (Vitamin C 500 mg oral tablet) 1 Tab(s) By Mouth once a day. Comment aspirin (aspirin 81 mg oral tablet, chewable) 1 Tab(s) By Mouth once a day. new med. Comment atorvastatin (atorvastatin 80 mg oral tablet) 1 Tab(s) By Mouth Bedtime. Comment citalopram (citalopram 20 mg oral tablet) 1 Tab(s) By Mouth once a day for 30 Days. Refills: 0. Comment cyanocobalamin (cyanocobalamin 500 mcg oral tablet) 1 Tab(s) By Mouth once a day. Comment doxazosin (doxazosin 4 mg oral tablet) 1 Tab(s) By Mouth once a day. Comment gabapentin (gabapentin 300 m (more content not included)... Normal [facility] Urinalysis macro (dipstick) panel (U)on 07-11-2021 Appearance (U) Cloudy Abnormal CLEAR [facility] Comment on above: Performed By: #### 6 9405-9, 61177-3s2, 19505-0, 35653-5, 11816-3 #### [facility] [address] [place], [place] Bilirubin (U) [Mass/Vol] Negative Normal Negative [facility] Comment on above: Performed By: #### 6 9405-9, 22497-1t4, 58261-4, 06417-5, 06139-3 #### [facility] [address] [place], [place] Color (U) Yellow Normal YELLOW [facility] Comment on above: Performed By: #### 6 9405-9, 50672-6l6, 16100-0, 56707-1, 08529-2 #### [facility] [address] [place], [place] Glucose Test strip (U) [Mass/Vol] 500MG/DL Abnormal Negative [facility] Comment on above: Performed By: #### 6 9405-9, 03489-1i9, 07528-5, 37502-0, 79596-8 #### [facility] [address] [place], [place] Ketones Ql (U) Negative Normal Negative [facility] Comment on above: Performed By: #### 6 9405-9, 05302-9b0, 29440-0, 78871-0, 74248-4 #### [facility] [address] [place], [place] Leukocyte esterase Test strip Ql (U) Large Abnormal Negative [facility] Comment on above: Performed By: #### 6 9405-9, 08471-8s5, 36461-2, 42107-0, 79680-2 #### [facility] [address] [place], [place] Nitrite Ql (U) Positive Abnormal Negative [facility] Comment on above: Performed By: #### 6 9405-9, 57808-4n7, 47703-2, 31265-8, 21021-6 #### [facility] [address] [place], [place] pH (U) 8.5 [pH] Normal 4.5-8.0 [facility] Comment on above: Performed By: #### 6 9405-9, 46450-2o9, 35350-3, 85081-1, 45056-6 #### [facility] [address] [place], [place] Protein Ql (U) >=300 Abnormal Negative [facility] Comment on above: Performed By: #### 6 9405-9, 83888-8v4, 35792-0, 68057-9, 07151-6 #### [facility] [address] [place], [place] RBC (U) [#/Vol] Trace-in Abnormal Negative [facility] Comment on above: Performed By: #### 6 9405-9, 73545-1c0, 45636-0, 30183-6, 62464-8 #### [facility] [address] [place], [place] Specific gravity (U) [Rel density] 1.015 Normal 1.002-1.030 [facility] Comment on above: Performed By: #### 6 9405-9, 38388-8y0, 90431-2, 93105-3, 83220-2 #### [facility] [address] [place], [place] Urobilinogen Qn (U) 0.896541 {Génesis'U}/dL Normal 0.2 -1.0 [facility] Comment on above: Performed By: #### 6 9405-9, 26839-1x0, 92942-3, 16805-5, 13525-1 #### [facility] [address] [place], [place] Basic metabolic 2000 panelon 04-24-2021 Anion gap [Moles/Vol] 7.0 mmol/L Normal 6.0-18.0 [facility] Comment on above: Performed By: #### 6 9405-9, 83532-7x4, 25618-2, 92456-2, 30906-0 #### [facility] [address] [place], [place] Calcium [Mass/Vol] 9.3 mg/dL Normal 8.9-10.3 [facility] Comment on above: Performed By: #### 6 9405-9, 28979-2a6, 76458-4, 92936-5, 06631-8 #### [facility] [address] [place], [place] Chloride [Moles/Vol] 101 mmol/L Normal 98-107 [facility] Comment on above: Performed By: #### 6 9405-9, 57019-9o8, 83767-4, 46774-9, 78731-1 #### [facility] [address] [place], [place] CO2 [Moles/Vol] 27 mmol/L Normal 22-32 [facility] Comment on above: Performed By: #### 6 9405-9, 95288-3z5, 51150-3, 01906-3, 59436-6 #### [facility] [address] [place], [place] Creatinine [Mass/Vol] 0.71 mg/dL Normal 0.60-1.30 [facility] Comment on above: Performed By: #### 6 9405-9, 11781-1i9, 00710-1, 63980-1, 50125-5 #### [facility] [address] [place], [place] Glucose [Mass/Vol] 153 mg/dL High 70-99 [facility] Comment on above: Result Comment: U pdated ADA Reference Range A normal fasting glucose concentration is less than 100 mg/dL. An impaired fasting glucose concentration is 100-125 mg/dL. A provisional diagnosis of diabetes mellitus can be made when a fasting glucose concentration is greater than 125 mg/dL. Performed By: #### 6 9405-9, 87160-1d0, 23756-6, 32777-5, 28417-7 #### [facility] [address] [place], [place] Potassium [Moles/Vol] 4.8 mmol/L Normal 3.6-5.1 [facility] Comment on above: Performed By: #### 6 9405-9, 28423-3p4, 46944-7, 21294-0, 10201-9 #### [facility] [address] [place], [place] Sodium [Moles/Vol] 135 mmol/L Low 136-145 [facility] Comment on above: Performed By: #### 6 9405-9, 92871-9x6, 49607-3, 87749-8, 68755-7 #### [facility] [address] [place], [place] Urea nitrogen (BldV) [Mass/Vol] 28 mg/dL High 8-20 [facility] Comment on above: Performed By: #### 6 9405-9, 00751-9b9, 58635-3, 12258-8, 90478-3 #### [facility] [address] [place], [place] CBC W Auto Differential pane l (Bld)on 04-24-2021 Basophils (Bld) [#/Vol] 0.00 thou/mcL Normal 0.00-0.20 [facility] Comment on above: Performed By: #### 5 7021-8 #### [place] [address] [place], [place] Basophils/100 WBC (Bld) 0.2 % Normal 0.0-2.0 M [facility] Comment on above: Performed By: #### 5 7021-8 #### [address] Eosinophils (Bld) [#/Vol] 0.10 thou/mcL Normal 0.00-0.70 [facility] Comment on above: Performed By: #### 5 7021-8 #### [facility] [address] [place], [place] Eosinophils/100 WBC (Bld) 0.6 % Normal 0.0-7.0 [facility] Comment on above: Performed By: #### 5 7021-8 #### [facility] [address] [place] [address] Erythrocyte distribution width (RBC) [Entitic vol] 13.4 % Normal 11.0-14.8 [facility] Comment on above: Performed By: #### 5 7021-8 #### [address] Hematocrit (Bld) [Volume fraction] 30.0 % Low 39.0-49.0 [facility] Comment on above: Performed By: #### 7021-8 #### [address] Hemoglobin (Bld) [Mass/Vol] 10.2 g/dL Low 13.5-17.5 [facility] Comment on above: Performed By: #### 5 7021-8 #### [address] Lymphocytes (Bld) [#/Vol] 1.10 thou/mcL Normal 1.00-4.80 [facility] Comment on above: Performed By: #### 5 7021-8 #### [address] Lymphocytes/100 WBC (Bld) 8.2 % Low 22.0-44.0 [facility] Comment on above: Performed By: #### 5 7021-8 #### [facility] [address] [place] [address] MCH (RBC) [Entitic mass] 30.5 Picograms Normal 27.0-34.0 [facility] Comment on above: Performed By: #### 5 7021-8 #### [facility] [address] [place] [address] MCHC (RBC) [Mass/Vol] 34.0 g/dL Normal 32.0-36.0 [facility] Comment on above: Performed By: #### 5 7021-8 #### [facility] [address] [place], [place] MCV (RBC) [Entitic vol] 89.9 fL Normal 80.0-97.0 M [facility] Comment on above: Performed By: #### 5 7021-8 #### [facility] [address] [place], [place] Monocytes (Bld) [#/Vol] 1.20 thou/mcL High 0.00-0.90 [facility] Comment on above: Performed By: #### 5 7021-8 #### [address] Monocytes/100 WBC (Bld) 8.6 % Normal 0.0-12.0 [facility] Comment on above: Performed By: #### 5 7021-8 #### [facility] [address] [place] [address] Neutrophils (Bld) [#/Vol] 11.30 thou/mcL High 1.80-7.70 [facility] Comment on above: Performed By: #### 5 7021-8 #### [address] Neutrophils/100 WBC (Bld) 82.4 % High 40.0-70.0 [facility] Comment on above: Performed By: #### 5 7021-8 #### [facility] [address] [place], [place] Platelet mean volume (Bld) [Entitic vol] 6.6 fL Normal 6.2-12.1 [facility] Comment on above: Performed By: #### 5 7021-8 #### [facility] [address] [place], [place] Platelets (Bld) [#/Vol] 367 thou/mcL Normal 142-424 [facility] Comment on above: Performed By: #### 5 7021-8 #### [facility] [address] [place], [place] RBC (Bld) [#/Vol] 3.34 million/mcL Low 4.30-5.70 M ount [facility] [place] Comment on above: Performed By: #### 5 7021-8 #### [facility] [address] [place], [place] WBC (Bld) [#/Vol] 13.7 thou/mcL High 4.6-10.2 [facility] Comment on above: Performed By: #### 5 7021-8 #### [facility] [address] [place], [place] CT Abd and Pelvis w Contrast on 04-24-2021 CT Abd and Pelvis w Contrast EXAMINATION TYPE: CT Abd and Pelvis w Contrast DATE OF EXAM ORDERED: 04/24/2021 3:56 PM HISTORY: Abdominal and Pelvic Pain, COMPARISON: 10/27/2020 TECHNIQUE: Images were acquired with contrast from the lung bases through the pelvis. Axial coronal images were acquired. FINDINGS: The lung bases are clear. The liver, spleen, gallbladder, pancreas, and adrenal glands are grossly unremarkable. There is a 7.5 cm cyst extending from the upper pole of the right kidney. No renal stones or obstruction of the ureters. There is large amount of stool throughout the colon including the rectum. The appendix is normal in size. There is a Todd catheter within the urinary bladder. Wall of the urinary bladder appears thickened. There is compression of the superior endplate of T12 by 20%. This is a new finding. IMPRESSION: 1. There is a large amount stool throughout colon findings in the rectum suggestive of impaction 2. Thickening of the wall of the urinary bladder also noted previously. This can be related to infection or tumor. 3. There is a compression fracture at T12 which has developed since 10/27/2020 [facility] thanks you for the opportunity to care for your patient. Workstation ID: [id number] FINAL REPORT Dictated By: Charlene Ivan MD 04/24/2021 15:58 Assigned Physician: Charlene Ivan MD Reviewed and Electronically Signed By: Charlene Ivan MD 04/24/2021 16:03 Transcribed by: CHET 04/24/2021 15:58 Technologist: ROBERTO JUAREZ [facility] [address] [place] [id number] Emergency Department Discharge Instructions MIKAYLA PAPPAS , Please provide this information to your Primary Care/Specialist Name : MIKAYLA PAPPAS Current Date : 04/24/2021 19:27:22 : 1960 Primary Care Physician : Greyson Dominguez MD Diagnosis: Follow-Up Instructions: MIKAYLA PAPPAS has been given these follow-up instructions: FOLLOW-UP APPOINTMENTS: Provider: Specialty: Address: Date: Greyson Dominguez MD Family Practice [address] [place], [place] [id number] (3) Follow-up as needed Laboratory Orders: Name: Status: Basic Metabolic Panel Completed CBC with Differential Completed Magnesium Level Completed Urinalysis with Microscopic Automatic Completed Hepatic Function Panel Completed GFRaa Completed GFRbb Completed Urinalysis Microscopic Completed Radiology Orders: Name: Status: CT Abd and Pelvis w Contrast Completed Diagnostic Tests: None Ordered Procedure(s) and Patient Education(s) : Constipation, Adult, Ppao-nj-Bjst EMERGENCY SERVICES MEDICATION LIST Lista de Medicaciones de los Servicios de Emergencia Name MIKAYLA PAPPAS PLEASE READ THE FOLLOWING REGARDING YOUR MEDICATIONS Based on the information available during your visit we have given you the medication instructions below. Continue taking medications you took prior to your visit unless you have been told to change. Please share this information with your own doctor. Carry a list of your medications with you in case of an emergency. Update it when medications are stopped, doses are changed, or new medications (including spmh-amf-navrbcc products) are added. If you have any questions, check with your doctor. Por la informaci??n disponible rubens gan visita, las instrucciones de medicaci??n aparecen debajo. Favor de continuar tomando las medicaciones Ud. lew?? antes de gan visita por lo menos que hay cambios. Favor de compartir esta informaci??n con gan medico. Lleva medardo lista de medicaciones consigo por dina de emergenc??a. Actualiza la lista cuando Ud. james de randolph las medicaciones, si cambian las dosis, o si hay nuevas medicaciones a??adidas (incluyendo medicaciones vendidas sin prescripci??n). Favor de preguntar a gan medico por cualquier damion. THESE ARE THE MEDICATIONS YOU SHOULD BE TAKING ascorbic acid (Vitamin C 500 mg oral tablet) 1 Tab(s) By Mouth once a day. aspirin (aspirin 81 mg oral tablet, chewable) 1 Tab(s) By Mouth once a day. new med. atorvastatin (atorvastatin 80 mg oral tablet) 1 Tab(s) By Mouth Bedtime. citalopram (citalopram 20 mg oral tablet) 1 Tab(s) By Mouth once a day for 30 Days. Refills: 0. cyanocobalamin (cyanocobalamin 500 mcg oral tablet) 1 Tab(s) By Mouth once a day. doxazosin (doxazosin 4 mg oral tablet) 1 Tab(s) By Mouth once a day. gabapentin (gabapentin 300 mg oral capsule) 1 Capsule By Mouth Bedtime. insulin glargine (insulin glargine 100 unit/ml subcutaneous solution) 20 Unit(s) Subcutaneous Bedtime., Do NOT mix with any other insulin product insulin lispro (Insulin Lispro KwikPen 100 units/mL injectable solution) ac TID Sliding Scale 141-180= 2 units 181- 220= 4 units 221-260= 6 units 261- 300= 8 units. MetFORMIN-SitaGLIPtin (Janumet 50 mg/1000 mg oral tablet) 1 Tab(s) By Mouth once a day. oxybutynin (oxybutynin 10 mg oral tablet, extended release) 1 Tab(s) By Mouth once a day. polyethylene glycol 3350 (MiraLax oral powder for reconstitution) 17 gram By Mouth once a day for 7 Days. Refills: 0. MEDICATIONS GIVEN DURING MEDICAL VISIT morphine 4 mg last dose given on 04/24/2021 at 13:39 Route: IV Push Sodium Chloride 0.9% 1,000 mL last dose given on 04/24/2021 at 13:39 Route: Intravenous Bolus, Infuse over 60 mins NON-MEDICATION PRESCRIPTION SCHEDULING PHONE NUMBER: MEDICATION CHANGE DETAILS (Not your Final Home Medication List) During the course of your visit, your home medication list was updated with the most current information. The details of those changes are shown below: NEW MEDICATIONS Printed Prescriptions polyethylene glycol 3350 (MiraLax oral powder for reconstitution) 17 gram By Mouth once a day for 7 Days. Refills: 0. Comment UPDATED MEDICATIONS None UNCHANGED MEDICATIONS Other Medications ascorbic acid (Vitamin C 500 mg oral tablet) 1 Tab(s) By Mouth once a day. Comment aspirin (aspirin 81 mg oral tablet, chewable) 1 Tab(s) By Mouth once a day. new med. Comment atorvastatin (atorvastatin 80 mg oral tablet) 1 Tab(s) By Mouth Bedtime. Comment citalopram (citalopram 20 mg oral tablet) 1 Tab(s) By Mouth once a day for 30 Days. Refills: 0. Comment (more content not included)... Normal [facility] GFR/1.73 sq M.predicted (S/P /Bld) [Vol rate/Area]on 04-24-2021 GFR/1.73 sq M.predicted among blacks MDRD (S/P/Bld) [Vol rate/Area] mL/min/{1.73_m2} Normal [facility] Comment on above: Result Comment: The MDRD equation has not been validated for those over 70 years, women, patients with serious co-morbid conditions, or with extremes of body size, muscle mass of nutritional status. Performed By: #### 6 9405-9, 31433-9i3, 87054-9, 62715-5, 13420-3 #### [facility] [address] [place], [place] GFRbbon 04-24-2021 GFR/1.73 sq M.predicted among non-blacks MDRD (S/P/Bld) [Vol rate/Area] mL/min/{1.73_m2} Normal [facility] Comment on above: Performed By: #### 6 9405-9, 87639-3a7, 06119-9, 79310-6, 50813-7 #### [place] [address] [place], [place] Hepatic function 2000 panelo n 04-24-2021 Albumin [Mass/Vol] 3.5 g/dL Normal 3.5-4.8 [facility] Comment on above: Performed By: #### 6 9405-9, 93568-9j8, 25220-4, 05454-2, 46590-0 #### [facility] [address] [place], [place] ALP [Catalytic activity/Vol] 95 Units/L High 32-91 [facility] Comment on above: Performed By: #### 6 9405-9, 63429-1u2, 39705-1, 17905-1, 11405-7 #### [facility] [address] [place], [place] ALT [Catalytic activity/Vol] 9 Units/L Normal 7-52 [facility] Comment on above: Result Comment: Plea se note: Change in reference range for ALT occurred on 09/15/20 at [facility] [place], [facility] [place], and [facility]. Performed By: #### 6 9405-9, 54663-4d5, 85266-5, 53752-7, 58354-4 #### [facility] [address] [place], [place] AST [Catalytic activity/Vol] 12 Units/L Low 15-41 [facility] Comment on above: Performed By: #### 6 9405-9, 16287-3p4, 34357-5, 01490-0, 31719-1 #### [facility] [address] [place], [place] Bilirubin [Mass/Vol] 0.5 mg/dL Normal 0.3-1.2 [facility] Comment on above: Performed By: #### 6 9405-9, 48633-5a8, 66549-0, 45927-7, 27625-1 #### [facility] [address] [place], [place] Bilirubin.direct [Mass/Vol] 0.1 mg/dL Normal 0.1-0.5 [facility] Comment on above: Performed By: #### 6 9405-9, 92908-3d3, 06593-2, 48984-7, 81505-8 #### [facility] [address] [place], [place] Bilirubin.indirect [Mass/Vol] 0.4 mg/dL Normal 0.0-1.0 [facility] Comment on above: Performed By: #### 6 9405-9, 33751-5e7, 76378-8, 46031-2, 87130-9 #### [facility] [address] [place], [place] Protein [Mass/Vol] 7.5 g/dL Normal 6.1-7.9 [facility] Comment on above: Performed By: #### 6 9405-9, 10097-8g8, 20567-3, 47876-3, 62113-2 #### [facility] [address] [place], [place] Magnesium Levelon 04-24-2021 Magnesium [Mass/Vol] 1.9 mg/dL Normal 1.8-2.5 [facility] Comment on above: Performed By: #### 6 9405-9, 64234-9i3, 06937-0, 63476-3, 13169-9 #### [facility] [address] [place], [place] Microscopic method Nom (U)on 04-24-2021 Bacteria LM.HPF (Urine sed) [#/Area] MODERATE Abnormal NONE/HPF [facility] Comment on above: Performed By: #### 5 20-0, 63205-0 #### [place] Mucus Ql (Urine sed) RARE Abnormal NONE/LPF [facility] Comment on above: Performed By: #### 5 20-0, 54236-3 #### [place] RBC LM.HPF (Urine sed) [#/Area] 10 /[HPF] High 0-5 [facility] Comment on above: Performed By: #### 5 20-0, 69204-9 #### [place] WBC LM.HPF (Urine sed) [#/Area] 48 /[HPF] High 0-5 [facility] Comment on above: Performed By: #### 5 7019-0, 06576-4 #### [place] Urinalysis dipstick W Reflex Microscopic panel (U)on 04-24-2021 Appearance (U) CLEAR Normal CLEAR [facility] Comment on above: Performed By: #### 5 7019-0, 19104-8 #### [place] Bilirubin (U) [Mass/Vol] Negative Normal NEGATIVE-NEG [facility] Comment on above: Performed By: #### 5 7019-0, 52444-1 #### [place] Color (U) YELLOW Normal YELLOW [facility] Comment on above: Performed By: #### 5 20-0, 86524-5 #### [place] Glucose Test strip (U) [Mass/Vol] NORMAL Normal NORMAL [facility] Comment on above: Performed By: #### 5 20-0, 13110-1 #### [place] Hemoglobin Ql (U) 10/UL Abnormal NEGATIVE-N EG [facility] Comment on above: Performed By: #### 5 7020-0, 18547-3 #### [place] Ketones (U) [Mass/Vol] Negative Normal NEGAT ROD-NEG [facility] Comment on above: Performed By: #### 5 7020-0, 98390-8 #### [place] Leukocyte esterase Test strip Ql (U) 500/UL Abnormal NEGATIVE-NEG [facility] Comment on above: Performed By: #### 5 7020-0, 11717-4 #### [place] Nitrite Test strip (U) [Mass/Vol] Negative Normal NEGATIVE-NEG [facility] Comment on above: Performed By: #### 5 20-0, 16361-9 #### [place] pH (U) 7.0 [pH] Normal 4.5-8.0 [facility] Comment on above: Performed By: #### 5 7020-0, 32889-4 #### [place] Protein (U) [Mass/Vol] 100 mg/dL Abnormal NEGAT ROD-NEG [facility] Comment on above: Performed By: #### 5 7020-0, 52999-0 #### [place] Specific gravity (U) [Rel density] 1.028 Normal 1.002-1.030 [facility] Comment on above: Performed By: #### 5 7020-0, 23891-7 #### [place] Urobilinogen (U) [Mass/Vol] NORMAL Normal NORMAL [facility] Comment on above: Performed By: #### 5 7020-0, 95200-6 #### [place] COVID-19/Influenza A,B [facility] 10-22-2020 Influenza A Not Detected Not Detected [facility] Influenza B Not Detected Not Detected [facility] Interpretation and review of laboratory results [facility] SARS-CoV-2 Not Detected Not Detected [facility] This test was perfor med under the FDA's Emergency Use Authorization (EUA). Testing was performed using the [employer]avo elvia SARS-CoV-2 & Influenza A/B Nucleic Acid Test on the elvia Jewell System. This test has not been approved for use in asymptomatic patients and its performance in this patient population has not been evaluated. Negative results do not rule out the presence of SARS-CoV-2, influenza A, and/or influenza B. Fact sheets for the EUA can be found at the following links: For Healthcare Providers: https://www.fda.gov/medi a/152172/download For Patients: https://www.fda.gov/medi a/268705/download [facility] POC Glucoseon 10-22-2020 Glucose [Mass/Vol] 226 mg/dL High 65 - 99 mg/dL [facility] Interpretation and review of laboratory results Abnormal [facility] Glucose [Mass/Vol] 222 mg/dL High 65 - 99 mg/dL [facility] Interpretation and review of laboratory results Abnormal [facility] Glucose [Mass/Vol] 215 mg/dL High 65 - 99 mg/dL [facility] Interpretation and review of laboratory results Abnormal [facility] ECHOCARDIOGRAM COMPLETEon EF 55 % [facility] Interface, Rad In Heart[facility] Xper Echopacs - 10/21/2020 12:52 PM EST Patient Info Name: MIKAYLA PAPPAS Age: 60 years : 1960 Gender: Male Ht: 172 cm Wt: 83 kg BSA: 2.01 m2 HR: 71 bpm BP: 127 / 83 mmHg Technical Quality: Fair Exam Date: 10/21/2020 12:11 PM Patient Status: Outpatient Department Editor: Kaden Quinones, SUNSHINE, SUJATHA Exam Type: ECHOCARDIOGRAM COMPLETE Study Info Indications - - Abnormal ekg [facility] Referring Physician: WINTER Caldera; [id number] BMI: 28.06 kg/m2 Summary 1. Left ventricular systolic function is normal with an ejection fraction by Biplane Method of Discs of 55 %. 2. There is trivial to small sized pericardial effusion. History/Risk Factors Hypertension: Yes Dyslipidemia: Yes Obesity: Yes Diabetes Mellitus: Type II Procedure(s): Complete two-dimensional, color flow and Doppler transthoracic echocardiogram is performed. Left Ventricle Left ventricular chamber dimension is normal. Left ventricular systolic function is normal with an ejection fraction by Biplane Method of Discs of 55 %. Normal left ventricular mass. Left ventricular segmental wall motion is grossly normal, however endocardial definition is limited. The left ventricular diastolic function is normal. Right Ventricle Right ventricular chamber dimension is normal. Right ventricular systolic function is normal. Left Atria Left atrial chamber dimension is normal. Right Atria Right atrial chamber dimension is normal. Pericardium/Pleural There is trivial to small sized pericardial effusion. Inferior Vena Cava Normal inferior vena cava with >50% collapse upon inspiration consistent with normal right atrial pressure. Aorta The aortic measurements are indexed to age and body surface area. The aortic root is normal measuring 3.50 cm with an index of 1.74 cm/m2. The proximal ascending aorta is normal measuring Empty with an index of Empty. Left Ventricular Outflow Tract Name Value Normal LVOT 2D LVOT Diameter 2.10 cm LVOT Doppler LVOT Peak Velocity 0.80 m/s Pulmonic Valve Name Value Normal PV Doppler PV Peak Velocity 1.28 m/s Mitral Valve Name Value Normal MV Doppler MV Decel [place] 572.00 cm/s2 MV PHT 59 ms MV Area (PHT) 3.74 cm2 4.00-5.00 MV Diastolic Function MV E Peak Velocity 1.16 m/s MV A Peak Velocity 0.88 m/s MV E/A 1.32 MV Decel Time 203 ms MV Annular TDI MV Septal e' Velocity 6.20 cm/s >=8.00 MV E/e' (Septal) 18.71 <=8.00 MV Lateral e' Velocity 8.27 cm/s >=10.00 MV E/e' (Lateral) 14.03 <=8.00 MV e' Average 7.24 MV E/e' (Average) 16.37 Aorta Name Value Normal Ascending Aorta Ao Root Diameter (2D) 3.50 cm 3.10-3.70 Ao Root Diam Index (2D) 1.74 cm/m2 1.50-1.90 Aortic Valve Name Value Normal AV 2D/MM AV Cusp Sep (MM) 2.00 cm AV Doppler AV Peak Velocity 1.4 m/s AV Area (Cont Eq Denilson) 1.94 cm2 LVOT Vmax/AV Vmax 0.56 AV Regurgitation 2D LVOT Area 3.46 cm2 Ventricles Name Value Normal LV Dimensions 2D/MM IVS Diastolic Thickness (2D) 0.89 cm 0.60-1.00 LVID Diastole (2D) 4.59 cm 4.20-5.80 LVIW Diastolic Thickness (2D) 1.22 cm 0.60-1.00 LVID Systole (2D) 3.45 cm 2.50-4.00 LVOT Diameter 2.10 cm LV Mass (2D Cubed) 170 g 88-224 LV Mass Index (2D Cubed) 85 g/m2 49-115 Relative Wall Thickness (2D) 0.53 <=0.42 LV Fractional Shortening/Ejection Fraction 2D/MM LV Fractional Shortening (2D) 25 % 25-43 LV Diastolic Volume (4C MOD) 67 ml LV Diastolic Volume (2C MOD) 83 ml LV Diastolic Volume (BP MOD) 76.90 ml 62.00-150.00 LV Diastolic Volume Index (BP MOD) 38.25 ml/m2 34.00-74.00 LV Systolic Volume (BP MOD) 36.70 ml 21.00-61.00 LV Systolic Volume Index (BP MOD) 18.26 ml/m2 11.00-31.00 LV EF (BP MOD) 55 % 55-70 LV Diastolic Length (4C) 7.53 cm LV Systolic Length (4C) 6.27 cm LV End Diastolic Volume (BP A-L) 80 ml LV End Systolic Volume (BP A-L) 37 ml LV EF (BP A-L) 54 % LV Stroke Volume (4C MOD) 36.20 ml RV Dimensions 2D/MM TAPSE 1.99 cm >=1.70 RV Systolic Function RV s' Velocity 0.15 m/s 0.10-0.19 Atria Name Value Normal LA Dimensions LA Volume (BP MOD) 47.30 ml LA Volume Index (BP MOD) 23.53 ml/m2 16.00-34.00 Report Signatures Finalized by Rafi Ham MD on 10/21/2020 12:51 PM [facility] Patient Info Name: MIKAYLA PAPPAS Age: 60 years : 1960 Gender: Male Ht: 172 cm Wt: 83 kg BSA: 2.01 m2 HR: 71 bpm BP: 127 / 83 mmHg Technical Quality: Fair Exam Date: 10/21/2020 12:11 PM Patient Status: Outpatient Department Editor: Kaden Quinones RDCS, RVT Exam Type: ECHOCARDIOGRAM COMPLETE Study Info Indications - - Abnormal ekg Attending Physician: [facility] Referring Physician: WINTER Caldera; [id number] BMI: 28.06 kg/m2 Summary 1. Left ventricular systolic function is normal with an ejection fraction by Biplane Method of Discs of 55 %. 2. There is trivial to small sized pericardial effusion. History/Risk Factors Hypertension: Yes Dyslipidemia: Yes Obesity: Yes Diabetes Mellitus: Type II Procedure(s): Complete two-dimensional, color flow and Doppler transthoracic echocardiogram is performed. Left Ventricle Left ventricular chamber dimension is normal. Left ventricular systolic function is normal with an ejection fraction by Biplane Method of Discs of 55 %. Normal left ventricular mass. Left ventricular segmental wall motion is grossly normal, however endocardial definition is limited. The left ventricular diastolic function is normal. Right Ventricle Right ventricular chamber dimension is normal. Right ventricular systolic function is normal. Left Atria Left atrial chamber dimension is normal. Right Atria Right atrial chamber dimension is normal. Pericardium/Pleural There is trivial to small sized pericardial effusion. Inferior Vena Cava Normal inferior vena cava with >50% collapse upon inspiration consistent with normal right atrial pressure. Aorta The aortic measurements are indexed to age and body surface area. The aortic root is normal measuring 3.50 cm with an index of 1.74 cm/m2. The proximal ascending aorta is normal measuring Empty with an index of Empty. Left Ventricular Outflow Tract Name Value Normal LVOT 2D LVOT Diameter 2.10 cm LVOT Doppler LVOT Peak Velocity 0.80 m/s Pulmonic Valve Name Value Normal PV Doppler PV Peak Velocity 1.28 m/s Mitral Valve Name Value Normal MV Doppler MV Decel [place] 572.00 cm/s2 MV PHT 59 ms MV Area (PHT) 3.74 cm2 4.00-5.00 MV Diastolic Function MV E Peak Velocity 1.16 m/s MV A Peak Velocity 0.88 m/s MV E/A 1.32 MV Decel Time 203 ms MV Annular TDI MV Septal e' Velocity 6.20 cm/s >=8.00 MV E/e' (Septal) 18.71 <=8.00 MV Lateral e' Velocity 8.27 cm/s >=10.00 MV E/e' (Lateral) 14.03 <=8.00 MV e' Average 7.24 MV E/e' (Average) 16.37 Aorta Name Value Normal Ascending Aorta Ao Root Diameter (2D) 3.50 cm 3.10-3.70 Ao Root Diam Index (2D) 1.74 cm/m2 1.50-1.90 Aortic Valve Name Value Normal AV 2D/MM AV Cusp Sep (MM) 2.00 cm AV Doppler AV Peak Velocity 1.4 m/s AV Area (Cont Eq Denilson) 1.94 cm2 LVOT Vmax/AV Vmax 0.56 AV Regurgitation 2D LVOT Area 3.46 cm2 Ventricles Name Value Normal LV Dimensions 2D/MM IVS Diastolic Thickness (2D) 0.89 cm 0.60-1.00 LVID Diastole (2D) 4.59 cm 4.20-5.80 LVIW Diastolic Thickness (2D) 1.22 cm 0.60-1.00 LVID Systole (2D) 3.45 cm 2.50-4.00 LVOT Diameter 2.10 cm LV Mass (2D Cubed) 170 g 88-224 LV Mass Index (2D Cubed) 85 g/m2 49-115 Relative Wall Thickness (2D) 0.53 <=0.42 LV Fractional Shortening/Ejection Fraction 2D/MM LV Fractional Shortening (2D) 25 % 25-43 LV Diastolic Volume (4C MOD) 67 ml LV Diastolic Volume (2C MOD) 83 ml LV Diastolic Volume (BP MOD) 76.90 ml 62.00-150.00 LV Diastolic Volume Index (BP MOD) 38.25 ml/m2 34.00-74.00 LV Systolic Volume (BP MOD) 36.70 ml 21.00-61.00 LV Systolic Volume Index (BP MOD) 18.26 ml/m2 11.00-31.00 LV EF (BP MOD) 55 % 55-70 LV Diastolic Length (4C) 7.53 cm LV Systolic Length (4C) 6.27 cm LV End Diastolic Volume (BP A-L) 80 ml LV End Systolic Volume (BP A-L) 37 ml LV EF (BP A-L) 54 % LV Stroke Volume (4C MOD) 36.20 ml RV Dimensions 2D/MM TAPSE 1.99 cm >=1.70 RV Systolic Function RV s' Velocity 0.15 m/s 0.10-0.19 Atria Name Value Normal LA Dimensions LA Volume (BP MOD) 47.30 ml LA Volume Index (BP MOD) 23.53 ml/m2 16.00-34.00 Report Signatures Finalized by Rafi Ham MD on 10/21/2020 12:51 PM [facility] MYOCARDIAL PERFUSION MULT I SPECTon 10-21-2020 Stress Nuc Stress EF 54 % [facility] Patient Info Name: MIKAYLA PAPPAS Age: 60 years : 1960 Gender: Male Ht: 173 cm Wt: 83 kg BSA: 2.01 m2 HR: 65 bpm BP: 105 / 56 mmHg Heart Rhythm: Sinus Rhythm Exam Date: 10/21/2020 10:19 AM Patient Status: Outpatient Window Air Conditioner Installer: Karla Jensen, MAC(N), TALENT ENGINEER Exam Type: NM MYOCARDIAL PERFUSION MULTI SPECT Study Info Indications - Chest pain Attending Physician: [facility] Nuclear Physician: Zachary Matos MD [id number] Stress Staff: Petty Rubi Primary Nurse: Liz Hazel RN Supervising Stress Physician: Jese Cannon MD BMI: 27.82 kg/m2 Summary 1. Negative Lexiscan stress EKG. 2. Normal SPECT myocardial perfusion imaging study. No inducible ischemia identified. Normal left ventricular systolic function, with calculated ejection fraction 54 %. History/Risk Factors Hypertension: Yes Dyslipidemia: Yes Obesity: Yes Diabetes Mellitus: Type II History/Risk Factors sleep apnea, GERD. Stress ECG Details Protocol: LEXISCAN Rest HR: 63 bpm Peak HR: 76 bpm Rest Sys BP: 105 mmHg Peak Sys BP: 105 mmHg Max Pred HR: 161 bpm % Max Pred HR: 47 % Target HR: 137 bpm Max RPP: 7,980 bpm*mmHg BP Response: Normal blood pressure response Termination Reason: At the end of protocol Cardiac Symptoms: Dyspnea Total Time: 4 min : 0 sec Rest Ren BP: 56 mmHg Peak Ren BP: 56 mmHg Total Dose: 0.4 mg Resting ECG Sinus rhythm, RBBB, left axis deviation. Stress ECG No abnormal ST/T wave changes with exercise. Arrhythmias No arrhythmias were observed during the examination. Stress Summary Negative Lexiscan stress EKG. Radiopharmaceutical: Tc-99m Sestamibi Administered By: Neda Walters BS, CNMT Camera Used: Siemens Threadflip Radiopharmaceutical: Tc-99m Sestamibi Administered By: Neda Walters BS, CNMT Camera Used: Siemens [employer] Image Protocol Protocol: Rest/Stress 1 Day Rest Radiopharmaceutical Dose: 9.5 mCi Imaging Date & Time: 10/21/2020 11:00 AM Patient Position: supine Stress Radiopharmaceutical Dose: 29.1 mCi Imaging Date & Time: 10/21/2020 11:00 AM Patient Position: supine Injection to Imaging Time: 60 min Injection to Imaging Time: 60 min Injection Date & Time: 10/21/2020 10:00 AM Injection Date & Time: 10/21/2020 11:15 AM SPECT Results Perfusion Findings Normal left ventricular size. The stress/rest left ventricular cavity ratio (Transient Ischemic Dilatation ratio) = 1.09 . SPECT images demonstrate homogeneous tracer distribution throughout the myocardium. Summed Difference Score: 0 Summed Stress Score: 0 Summed Rest Score: 0 Functional Results Name Value Normal Stress Stress LV Ejection Fraction 54 % 55-70 Stress LV End Systolic Volume 53.00 ml Stress LV End Diastolic Volume 116.00 ml Transient Ischemic Dilatation 1.09 Functional Findings Overall left ventricular systolic function was normal without regional wall motion abnormalities. Gated SPECT imaging reveals normal myocardial wall thickening. Post stress left ventricular ejection fraction is normal, 54 %. Left ventricular cavity size is normal. Report Signatures MPI SPECT Finalized by Zachary Matos MD on 10/21/2020 12:22 PM Stress Finalized by Jese Cannon MD on 10/21/2020 12:11 PM [facility] Interface, Rad In [employer] - 10/21/2020 12:22 PM EST Patient Info Name: MIKAYLA PAPPAS Age: 60 years : 1960 Gender: Male Ht: 173 cm Wt: 83 kg BSA: 2.01 m2 HR: 65 bpm BP: 105 / 56 mmHg Heart Rhythm: Sinus Rhythm Exam Date: 10/21/2020 10:19 AM Patient Status: Outpatient Window Air Conditioner Installer: Karla Jensen ARRT(N), TALENT ENGINEER Exam Type: NM MYOCARDIAL PERFUSION MULTI SPECT Study Info Indications - Chest pain Attending Physician: [facility] Nuclear Physician: Zachary Matos MD [id number] Stress Staff: Petty Rubi Primary Nurse: Liz Hazel RN Supervising Stress Physician: Jese Cannon MD BMI: 27.82 kg/m2 Summary 1. Negative Lexiscan stress EKG. 2. Normal SPECT myocardial perfusion imaging study. No inducible ischemia identified. Normal left ventricular systolic function, with calculated ejection fraction 54 %. History/Risk Factors Hypertension: Yes Dyslipidemia: Yes Obesity: Yes Diabetes Mellitus: Type II History/Risk Factors sleep apnea, GERD. Stress ECG Details Protocol: LEXISCAN Rest HR: 63 bpm Peak HR: 76 bpm Rest Sys BP: 105 mmHg Peak Sys BP: 105 mmHg Max Pred HR: 161 bpm % Max Pred HR: 47 % Target HR: 137 bpm Max RPP: 7,980 bpm*mmHg BP Response: Normal blood pressure response Termination Reason: At the end of protocol Cardiac Symptoms: Dyspnea Total Time: 4 min : 0 sec Rest Ren BP: 56 mmHg Peak Ren BP: 56 mmHg Total Dose: 0.4 mg Resting ECG Sinus rhythm, RBBB, left axis deviation. Stress ECG No abnormal ST/T wave changes with exercise. Arrhythmias No arrhythmias were observed during the examination. Stress Summary Negative Lexiscan stress EKG. Radiopharmaceutical: Tc-99m Sestamibi Administered By: Neda Walters BS, SOUTH Camera Used: Siemens Threadflip Radiopharmaceutical: Tc-99m Sestamibi Administered By: Neda Walters BS, SOUTH Camera Used: Siemens Threadflip Image Protocol Protocol: Rest/Stress 1 Day Rest Radiopharmaceutical Dose: 9.5 mCi Imaging Date & Time: 10/21/2020 11:00 AM Patient Position: supine Stress Radiopharmaceutical Dose: 29.1 mCi Imaging Date & Time: 10/21/2020 11:00 AM Patient Position: supine Injection to Imaging Time: 60 min Injection to Imaging Time: 60 min Injection Date & Time: 10/21/2020 10:00 AM Injection Date & Time: 10/21/2020 11:15 AM SPECT Results Perfusion Findings Normal left ventricular size. The stress/rest left ventricular cavity ratio (Transient Ischemic Dilatation ratio) = 1.09 . SPECT images demonstrate homogeneous tracer distribution throughout the myocardium. Summed Difference Score: 0 Summed Stress Score: 0 Summed Rest Score: 0 Functional Results Name Value Normal Stress Stress LV Ejection Fraction 54 % 55-70 Stress LV End Systolic Volume 53.00 ml Stress LV End Diastolic Volume 116.00 ml Transient Ischemic Dilatation 1.09 Functional Findings Overall left ventricular systolic function was normal without regional wall motion abnormalities. Gated SPECT imaging reveals normal myocardial wall thickening. Post stress left ventricular ejection fraction is normal, 54 %. Left ventricular cavity size is normal. Report Signatures MPI SPECT Finalized by Zachary Matos MD on 10/21/2020 12:22 PM Stress Finalized by Jese Cannon MD on 10/21/2020 12:11 PM [facility] Otheron 10-21-2020 Interpretation and review of laboratory results Abnormal [facility] POC Glucoseon 10-21-2020 Glucose [Mass/Vol] 192 mg/dL High 65 - 99 mg/dL [facility] Interpretation and review of laboratory results Abnormal [facility] Glucose [Mass/Vol] 118 mg/dL High 65 - 99 mg/dL [facility] Glucose [Mass/Vol] 123 mg/dL High 65 - 99 mg/dL [facility] Glucose [Mass/Vol] 266 mg/dL High 65 - 99 mg/dL [facility] Interpretation and review of laboratory results Abnormal [facility] Urine Aerobic Cultureon 10-04 Bacteria identified Aer cx Nom (Unsp spec) >100,000 CFU/mL Escherichia coli Abnormal [facility] Interpretation and review of laboratory results Abnormal [facility] CBCon 10-20-2020 Erythrocyte distribution width (RBC) [Entitic vol] 12.7 % 11.6 - 14.8 % [facility] Hematocrit (Bld) [Volume fraction] 32.3 % Low 41 - 53 % [facility] Hemoglobin (Bld) [Mass/Vol] 10.6 g/dL Low 13.5 - 17.5 g/dL [facility] Interpretation and review of laboratory results Abnormal [facility] MCH (RBC) [Entitic mass] 29.3 pg 26 - 34 pg [facility] MCHC (RBC) [Mass/Vol] 32.8 g/dL 31 - 37 g/dL [facility] MCV (RBC) [Entitic vol] 89.2 fL 80 - 100 fL [facility] Nucleated RBC (Bld) [#/Vol] 0.00 10*3/uL [facility] Nucleated RBC/100 WBC (Bld) [Ratio] 0.0 % [facility] Platelet mean volume (Bld) [Entitic vol] 10.1 fL 9.4 - 12.4 fL [facility] Platelets (Bld) [#/Vol] 201 10*3/uL [facility] RBC (Bld) [#/Vol] 3.62 10*6/uL Low [facility] W[facility] (Bld) [#/Vol] 9.49 10*3/uL [facility] ealth ECG 12-LEADon 10-20-2020 Atrial Rate 85 BPM [facility] P [place] 55 degrees [facility] P-R Interval 122 ms [facility] Q-T Interval 402 ms [facility] QRS Duration 136 ms [facility] QTC Calculation (Bezet) 478 ms [facility] R [place] -59 degrees [facility] T [place] 45 degrees [facility] Urea nitrogen [Mass/Vol] Normal sinus rhythm Right bundle branch block Left anterior fascicular block Bifascicular block Minimal voltage criteria for LVH, may be normal variant ( R in aVL ) Abnormal ECG When compared with ECG of 26-JUL-2020 14:55, Nonspecific T wave abnormality now evident in Lateral leads Confirmed by Physician, ED ([id number]), department editor RAKESH LUNA ([id number]) on 10/20/2020 10:04:58 AM [facility] Ventricular Rate 85 BPM [facility] POC Glucoseon 10-20-2020 Glucose [Mass/Vol] 257 mg/dL High 65 - 99 mg/dL [facility] Interpretation and review of laboratory results Abnormal [facility] Glucose [Mass/Vol] 238 mg/dL High 65 - 99 mg/dL [facility] Interpretation and review of laboratory results Abnormal [facility] Glucose [Mass/Vol] 137 mg/dL High 65 - 99 mg/dL [facility] Interpretation and review of laboratory results Abnormal [facility] Glucose [Mass/Vol] 221 mg/dL High 65 - 99 mg/dL [facility] Interpretation and review of laboratory results Abnormal [facility] TROPONINon 10-20-2020 Interpretation and review of laboratory results Abnormal [facility] Troponin T.cardiac [Mass/Vol] Possible acute cardiac injury. [facility] Troponin T.cardiac [Mass/Vol] 182 ng/L Critically high <=22 [facility] Interpretation and review of laboratory results Abnormal [facility] Troponin T.cardiac [Mass/Vol] 184 ng/L Critically high <=22 [facility] Troponin T.cardiac [Mass/Vol] Possible acute cardiac injury. [facility] CBC WITH AUTO DIFFERENTIALon 10-19-2020 Basophils (Bld) [#/Vol] 0.02 10*3/uL [facility] Basophils/100 WBC (Bld) 0.2 % [facility] Eosinophils (Bld) [#/Vol] 0.01 10*3/uL [facility] Eosinophils/100 WBC (Bld) 0.1 % [facility] Erythrocyte distribution width (RBC) [Entitic vol] 12.7 % 11.6 - 14.8 % [facility] Hematocrit (Bld) [Volume fraction] 38.1 % Low 41 - 53 % [facility] Hemoglobin (Bld) [Mass/Vol] 13.0 g/dL Low 13.5 - 17.5 g/dL [facility] Immature granulocytes (Bld) [#/Vol] 0.07 10*3/uL [facility] Immature granulocytes/100 WBC (Bld) 0.50 % [facility] Comment on above: The IG parameter is the percentage of metamyelocytes, myelocytes and promyelocytes. An immature granulocyte count (IG) of 1% or more suggests the possibility of infection, an IG count of 3% is very likely related to an infection. Interpretation and review of laboratory results Abnormal [facility] Lymphocytes (Bld) [#/Vol] 0.68 10*3/uL Low [facility] Lymphocytes/100 WBC (Bld) 5.3 % [facility] MCH (RBC) [Entitic mass] 29.4 pg 26 - 34 pg [facility] MCHC (RBC) [Mass/Vol] 34.1 g/dL 31 - 37 g/dL [facility] MCV (RBC) [Entitic vol] 86.2 fL 80 - 100 fL [facility] Monocytes (Bld) [#/Vol] 0.89 10*3/uL [facility] Monocytes/100 WBC (Bld) 6.9 % [facility] Neutrophils (Bld) [#/Vol] 11.20 10*3/uL High [facility] Neutrophils/100 WBC (Bld) 87.0 % [facility] Nucleated RBC (Bld) [#/Vol] 0.00 10*3/uL [facility] Nucleated RBC/100 WBC (Bld) [Ratio] 0.0 % [facility] Platelet mean volume (Bld) [Entitic vol] 9.7 fL 9.4 - 12.4 fL [facility] Platelets (Bld) [#/Vol] 213 10*3/uL [facility] RBC (Bld) [#/Vol] 4.42 10*6/uL Low [facility] ealth WBC (Bld) [#/Vol] 12.87 10*3/uL [facility] Metabolic Pane [facility] 10-19-2020 Albumin [Mass/Vol] 4.0 g/dL 3.2 - 5.2 g/dL [facility] ALP [Catalytic activity/Vol] 82 U/L 40 - 150 U/L [facility] ALT [Catalytic activity/Vol] 10 U/L 0 - 40 U/L [facility] Anion gap [Moles/Vol] 15 mmol/L 10 - 2 0 mmol/L [facility] AST [Catalytic activity/Vol] 17 U/L 0 - 45 U/L [facility] Bilirubin [Mass/Vol] 1.2 mg/dL 0 - 1.3 mg/dL [facility] Calcium [Mass/Vol] 9.1 mg/dL 8.4 - 10. 2 mg/dL [facility] Chloride [Moles/Vol] 100 mmol/L 98 - 10 8 mmol/L [facility] Creatinine [Mass/Vol] 0.96 mg/dL 0.50 - 1.30 [facility] GFR/1.73 sq M predicted among non-blacks MDRD (S/P/Bld) [Vol rate/Area] The eGFR should be used for monitoring renal function only and not for medication dosing. [facility] GFR/1.73 sq M.predicted CKD-EPI (S/P/Bld) [Vol rate/Area] 86 >=60 mL/min/1.73 m2 [facility] Glucose [Mass/Vol] 267 mg/dL High 65 - 99 mg/dL [facility] HCO3 [Moles/Vol] 26 mmol/L 21 - 32 mmol/L [facility] Interpretation and review of laboratory results Abnormal [facility] Potassium [Moles/Vol] 3.8 mmol/L 3.5 - 5.1 mmol/L [facility] Protein [Mass/Vol] 7.9 g/dL 6 - 8 g/dL [facility] Sodium [Moles/Vol] 137 mmol/L 135 - 145 mmol/L [facility] Urea nitrogen [Mass/Vol] 19 mg/dL 8 - 25 mg/dL [facility] Urea nitrogen/Creatinine [Mass ratio] 19.8 mg/mg [facility] EKGon 10-19-2020 Ordered by an unspecified provider. [facility] Lactic Acid, Plasmaon 2019 Interpretation and review of laboratory results Normal [facility] Lactate [Moles/Vol] 1.5 mmol/L 0.6 - 2 mmol/L [facility] Otheron 10-19-2020 Extra Tube Hold for add-ons. [facility] Comment on above: Auto resulted. POC Glucoseon 10-19-2020 Glucose [Mass/Vol] 227 mg/dL High 65 - 99 mg/dL [facility] Interpretation and review of laboratory results Abnormal [facility] PT/INRon 10-19-2020 INR Coag (PPP) [Relative time] 1.2 {INR} High [facility] Interpretation and review of laboratory results Abnormal [facility] PT Coag (PPP) [Time] 14.6 s [facility] During the induction phase of oral anticoagulation, the INR may not reflect the anticoagulation status of the patient. Therapeutic ranges for INR's are: Most clinical situations: INR 2.0-3.0 Mechanical Prosthetic Valve: INR 2.5-3.5 Critical: INR >5.0 [facility] URINALYSISon 10-19-2020 Bacteria Auto Ql (U) Many Abnormal None Se en /hpf [facility] Bilirubin Ql (U) Negative Negative [facility] th Clarity Refractometry automated (U) Cloudy Abnormal Clear [facility] Color (U) Red Abnormal Colorless, Yellow [facility] Glucose Auto test strip (U) [Mass/Vol] 150 Abnormal Negative mg/dL [facility] Hemoglobin Auto test strip Ql (U) Large Abnormal Negative [facility] Interpretation and review of laboratory results Abnormal [facility] Ketones (U) [Mass/Vol] Negative Negat rod mg/dL [facility] Leukocyte esterase Auto test strip Ql (U) Small Abnormal Negative [facility] Nitrite Auto test strip Ql (U) Negative Negative [facility] pH (U) 7.0 [pH] [facility] Protein (U) [Mass/Vol] 100 Abnormal Negat rod mg/dL [facility] RBC Auto (Urine sed) [#/Area] >180 High [facility] Specific gravity (U) [Rel density] 1.016 [facility] Urobilinogen (U) [Mass/Vol] <2.0 <2.0 mg/dL [facility] WBC Auto (Urine sed) [#/Area] >180 High [facility] Microscopic examinat ion is performed on all urinalysis samples and only positive findings are reported. The test for blood on the chemical analytic portion of urinalysis may also be positive due to hemoglobinuria and myoglobinuria and if red blood cells are present they are quantified by microscopic examination. [facility] XR Chest 1 Viewon 10-19-2020 EXAMINATION: ONE XRA Y VIEW OF THE CHEST 10/19/2020 5:06 pm COMPARISON: 02/10/2008 radiograph HISTORY: ORDERING SYSTEM PROVIDED HISTORY: cough, sob; TECHNOLOGIST PROVIDED HISTORY: Illness/Other Acuity: Acute Reason for Exam: cough, sob Cancer History: unk Surgery, Radiation History: unk Type of Encounter: Initial Additional signs and symptoms: none ORDERING SYSTEM PROVIDED DIAGNOSIS CODES: N12 Pyelonephritis R31.0 Hematuria, gross Z96.[address] prior to arrival R53.1 Weakness generalized FINDINGS: The heart, mediastinum and pulmonary vascularity are normal. The lungs are well expanded and clear. There are no skeletal abnormalities in the chest. [facility] Interface, Rad In David ji Speechq - 10/19/2020 5:24 PM EST EXAMINATION: ONE XRAY VIEW OF THE CHEST 10/19/2020 5:06 pm COMPARISON: 02/10/2008 radiograph HISTORY: ORDERING SYSTEM PROVIDED HISTORY: cough, sob; TECHNOLOGIST PROVIDED HISTORY: Illness/Other Acuity: Acute Reason for Exam: cough, sob Cancer History: unk Surgery, Radiation History: unk Type of Encounter: Initial Additional signs and symptoms: none ORDERING SYSTEM PROVIDED DIAGNOSIS CODES: N12 Pyelonephritis R31.0 Hematuria, gross Z96.[address] prior to arrival R53.1 Weakness generalized FINDINGS: The heart, mediastinum and pulmonary vascularity are normal. The lungs are well expanded and clear. There are no skeletal abnormalities in the chest. IMPRESSION: No significant findings in the chest. Workstation ID: [email or web address] [facility] No significant findi ngs in the chest. Workstation ID: [email or web address] [facility] BMPon 10-17-2020 Anion gap [Moles/Vol] 15 mmol/L 10 - 2 0 mmol/L [facility] Calcium [Mass/Vol] 9.4 mg/dL 8.4 - 10. 2 mg/dL [facility] Chloride [Moles/Vol] 99 mmol/L 98 - 10 8 mmol/L [facility] Creatinine [Mass/Vol] 1.17 mg/dL 0.50 - 1.30 [facility] Creatinine [Mass/Vol] 1.2 mg/dL 0.5 - 1.3 mg/dL [facility] Comment on above: iStat method was use d to obtain this Creatinine result. GFR/1.73 sq M predicted among non-blacks MDRD (S/P/Bld) [Vol rate/Area] The eGFR should be used for monitoring renal function only and not for medication dosing. [facility] GFR/1.73 sq M.predicted CKD-EPI (S/P/Bld) [Vol rate/Area] 68 >=60 mL/min/1.73 m2 [facility] Glucose [Mass/Vol] 240 mg/dL High 65 - 99 mg/dL [facility] HCO3 [Moles/Vol] 28 mmol/L 21 - 32 mmol/L [facility] Interpretation and review of laboratory results Abnormal [facility] Potassium [Moles/Vol] 3.6 mmol/L 3.5 - 5.1 mmol/L [facility] Sodium [Moles/Vol] 138 mmol/L 135 - 145 mmol/L [facility] Urea nitrogen [Mass/Vol] 21 mg/dL 8 - 25 mg/dL [facility] Urea nitrogen/Creatinine [Mass ratio] 17.9 mg/mg [facility] CBC WITH AUTO DIFFERENTIALon 10-17-2020 Basophils (Bld) [#/Vol] 0.01 10*3/uL [facility] Basophils/100 WBC (Bld) 0.1 % [facility] Eosinophils (Bld) [#/Vol] 0.17 10*3/uL [facility] Eosinophils/100 WBC (Bld) 2.5 % [facility] Erythrocyte distribution width (RBC) [Entitic vol] 12.5 % 11.6 - 14.8 % [facility] Hematocrit (Bld) [Volume fraction] 34.6 % Low 41 - 53 % [facility] Hemoglobin (Bld) [Mass/Vol] 11.8 g/dL Low 13.5 - 17.5 g/dL [facility] Immature granulocytes (Bld) [#/Vol] 0.01 10*3/uL [facility] Immature granulocytes/100 WBC (Bld) 0.10 % [facility] Comment on above: The IG parameter is the percentage of metamyelocytes, myelocytes and promyelocytes. An immature granulocyte count (IG) of 1% or more suggests the possibility of infection, an IG count of 3% is very likely related to an infection. Interpretation and review of laboratory results Abnormal [facility] Lymphocytes (Bld) [#/Vol] 2.07 10*3/uL [facility] Lymphocytes/100 WBC (Bld) 29.9 % [facility] MCH (RBC) [Entitic mass] 29.4 pg 26 - 34 pg [facility] MCHC (RBC) [Mass/Vol] 34.1 g/dL 31 - 37 g/dL [facility] MCV (RBC) [Entitic vol] 86.3 fL 80 - 100 fL [facility] Monocytes (Bld) [#/Vol] 0.78 10*3/uL [facility] Monocytes/100 WBC (Bld) 11.3 % [facility] Neutrophils (Bld) [#/Vol] 3.89 10*3/uL [facility] Neutrophils/100 WBC (Bld) 56.1 % [facility] Nucleated RBC (Bld) [#/Vol] 0.00 10*3/uL [facility] Nucleated RBC/100 WBC (Bld) [Ratio] 0.0 % [facility] Platelet mean volume (Bld) [Entitic vol] 9.3 fL Low 9.4 - 12.4 fL [facility] Platelets (Bld) [#/Vol] 227 10*3/uL [facility] RBC (Bld) [#/Vol] 4.01 10*6/uL Low [facility] [#/Vol] 6.93 10*3/uL [facility] ealt COVID-19/Influenza A,B Molec ularon 10-17-2020 Influenza A Not Detected Not Detected [facility] Influenza B Not Detected Not Detected [facility] Interpretation and review of laboratory results Normal [facility] SARS-CoV-2 Not Detected Not Detected [facility] This test was perfor med under the FDA's Emergency Use Authorization (EUA). Testing was performed using the [employer] elvia SARS-CoV-2 & Influenza A/B Nucleic Acid Test on the elvia Jewell System. This test has not been approved for use in asymptomatic patients and its performance in this patient population has not been evaluated. Negative results do not rule out the presence of SARS-CoV-2, influenza A, and/or influenza B. Fact sheets for the EUA can be found at the following links: For Healthcare Providers: https://www.fda.gov/medi a/660934/download For Patients: https://www.fda.gov/medi a/229866/download [facility] CT KIDNEY STONEon 10-17-2020 Markedly distended bladder and moderate bilateral hydroureteronephrosis. Consider bladder outlet obstruction. Workstation ID: [id number] [facility] EXAMINATION: STONE PROTOCOL CT OF THE ABDOMEN AND PELVIS 10/17/2020 TECHNIQUE: CT of the abdomen and pelvis was performed without the administration of intravenous contrast. Multiplanar reformatted images are provided for review. Dose modulation, iterative reconstruction, and/or weight based adjustment of the mA/kV was utilized to reduce the radiation dose to as low as reasonably achievable. COMPARISON: 08/14/2020. HISTORY: ORDERING SYSTEM PROVIDED HISTORY: Flank pain, kidney stone suspected; TECHNOLOGIST PROVIDED HISTORY: Illness/Other Acuity: Acute Reason for Exam: lower back pain and urinary frequency/urgency x2 days Type of Encounter: Initial Additional signs and symptoms: lower back pain and urinary frequency/urgency x2 days FINDINGS: LOWER CHEST: Visualized portion of the lower chest demonstrates no acute abnormality. KIDNEYS AND URINARY TRACT: No renal calculi are identified. There is a large upper pole right renal cyst, stable. This does not require imaging follow up. There is bilateral moderate hydroureteronephrosis. Bladder is markedly distended with a calculated volume of approximately 1500 cc. Bladder wall is likely diffusely thickened. No nodularity. ORGANS: Visualized portions of the unenhanced liver, spleen, pancreas, gallbladder, and adrenal glands demonstrate no acute abnormality. GI/BOWEL: No bowel obstruction. No evidence of acute appendicitis. PELVIS: Bladder as indicated above. There may have been prior TURP. PERITONEUM/RETROPERITONE UM: No lymphadenopathy is noted. BONES/SOFT TISSUES: The osseous structures demonstrate no acute abnormality. [facility], Rad In Fu ji Speechq - 10/17/2020 3:56 AM EST EXAMINATION: STONE PROTOCOL CT OF THE ABDOMEN AND PELVIS 10/17/2020 TECHNIQUE: CT of the abdomen and pelvis was performed without the administration of intravenous contrast. Multiplanar reformatted images are provided for review. Dose modulation, iterative reconstruction, and/or weight based adjustment of the mA/kV was utilized to reduce the radiation dose to as low as reasonably achievable. COMPARISON: 08/14/2020. HISTORY: ORDERING SYSTEM PROVIDED HISTORY: Flank pain, kidney stone suspected; TECHNOLOGIST PROVIDED HISTORY: Illness/Other Acuity: Acute Reason for Exam: lower back pain and urinary frequency/urgency x2 days Type of Encounter: Initial Additional signs and symptoms: lower back pain and urinary frequency/urgency x2 days FINDINGS: LOWER CHEST: Visualized portion of the lower chest demonstrates no acute abnormality. KIDNEYS AND URINARY TRACT: No renal calculi are identified. There is a large upper pole right renal cyst, stable. This does not require imaging follow up. There is bilateral moderate hydroureteronephrosis. Bladder is markedly distended with a calculated volume of approximately 1500 cc. Bladder wall is likely diffusely thickened. No nodularity. ORGANS: Visualized portions of the unenhanced liver, spleen, pancreas, gallbladder, and adrenal glands demonstrate no acute abnormality. GI/BOWEL: No bowel obstruction. No evidence of acute appendicitis. PELVIS: Bladder as indicated above. There may have been prior TURP. PERITONEUM/RETROPERITONE UM: No lymphadenopathy is noted. BONES/SOFT TISSUES: The osseous structures demonstrate no acute abnormality. IMPRESSION: Markedly distended bladder and moderate bilateral hydroureteronephrosis. Consider bladder outlet obstruction. Workstation ID: [id number] [facility] POC Urinalysis Dipstickon Bilirubin Ql (U) Negative Negative [facility] Glucose Ql (U) 500 Abnormal Normal, Negative mg/dL [facility] Hemoglobin Ql (U) Small Abnormal Negative [facility] Interpretation and review of laboratory results Abnormal [facility] Ketones Ql (U) Negative Negative mg/dL [facility] Leukocyte esterase Test strip Ql (U) Small Abnormal Negative [facility] Nitrite Ql (U) Negative Negative [facility] pH (U) 6.0 [pH] [facility] Protein Ql (U) 30 Abnormal Negative mg/dL [facility] Specific gravity (U) [Rel density] 1.010 [facility] Urobilinogen Qn (U) 0.2 mg/dL <2.0, 0. 2, Normal, Negative, 1.0, 2.0, <1.0 [facility] COVID-19, Molecularon 2019 Interpretation and review of laboratory results Normal [facility] SARS-CoV-2 Not Detected Not Detected [facility] Comment on above: This test was perfor med under the FDA's Emergency Use Authorization (EUA). Testing was performed using the [employer] ID NOW COVID-19 assay on the ID NOW platform. This test has not been approved for use in asymptomatic patients and its performance in this patient population has not been evaluated. Negative results do not rule out the presence of SARS-CoV-2/COVID-19. Fact sheets for the EUA can be found at the following links: For Healthcare Providers: https://www.fda.gov/media/890909/download For Patients: https://www.fda.gov/media/078752/download CT Abdomen Pelvis Without Co ntraston 08-15-2020 Interface, Rad In Fu ji Speechq - 08/15/2020 12:35 AM EDT EXAMINATION: CT OF THE ABDOMEN AND PELVIS WITHOUT CONTRAST 08/14/2020 TECHNIQUE: CT of the abdomen and pelvis was performed without the administration of intravenous contrast. Multiplanar reformatted images are provided for review. Dose modulation, iterative reconstruction, and/or weight based adjustment of the mA/kV was utilized to reduce the radiation dose to as low as reasonably achievable. COMPARISON: None. HISTORY: ORDERING SYSTEM PROVIDED HISTORY: abdominal pain, gross hematuria; TECHNOLOGIST PROVIDED HISTORY: Illness/Other Acuity: Acute Reason for Exam: abdominal pain, gross hematuria Type of Encounter: Initial Additional signs and symptoms: no FINDINGS: Lower Chest: Small right pleural effusion. Organs: Within the limitations of a noncontrast examination, the liver, gallbladder, spleen, pancreas, and adrenal glands demonstrate no acute abnormality. There is bilateral hydroureteronephrosis without nephrolithiasis. There is a 6.5 x 7.9 cm simple appearing right renal cyst. GI/Bowel: Stomach is partially distended. The small bowel is nondilated. Colon is normal in caliber. Pelvis: There is diffuse urinary bladder wall thickening with adjacent stranding and fluid. No vesicular stone. Prostate is normal in size. Peritoneum/Retroperitone um: Trace ascites. No pneumoperitoneum. Abdominal aorta is normal in caliber. Shotty retroperitoneal lymph nodes. Bones/Soft Tissues: No acute osseous abnormality. IMPRESSION: 1. Extensive urinary bladder wall thickening, which could be infectious or due to underlying neoplasm. Clinical correlation is recommended. There is associated bilateral hydroureteronephrosis. No nephrolithiasis. 2. Small right pleural effusion. Workstation ID: [id number] [employer] 1. Extensive urinary bladder wall thickening, which could be infectious or due to underlying neoplasm. Clinical correlation is recommended. There is associated bilateral hydroureteronephrosis. No nephrolithiasis. 2. Small right pleural effusion. Workstation ID: [id number] [facility] EXAMINATION: CT OF T ABDOMEN AND PELVIS WITHOUT CONTRAST 08/14/2020 TECHNIQUE: CT of the abdomen and pelvis was performed without the administration of intravenous contrast. Multiplanar reformatted images are provided for review. Dose modulation, iterative reconstruction, and/or weight based adjustment of the mA/kV was utilized to reduce the radiation dose to as low as reasonably achievable. COMPARISON: None. HISTORY: ORDERING SYSTEM PROVIDED HISTORY: abdominal pain, gross hematuria; TECHNOLOGIST PROVIDED HISTORY: Illness/Other Acuity: Acute Reason for Exam: abdominal pain, gross hematuria Type of Encounter: Initial Additional signs and symptoms: no FINDINGS: Lower Chest: Small right pleural effusion. Organs: Within the limitations of a noncontrast examination, the liver, gallbladder, spleen, pancreas, and adrenal glands demonstrate no acute abnormality. There is bilateral hydroureteronephrosis without nephrolithiasis. There is a 6.5 x 7.9 cm simple appearing right renal cyst. GI/Bowel: Stomach is partially distended. The small bowel is nondilated. Colon is normal in caliber. Pelvis: There is diffuse urinary bladder wall thickening with adjacent stranding and fluid. No vesicular stone. Prostate is normal in size. Peritoneum/Retroperitone um: Trace ascites. No pneumoperitoneum. Abdominal aorta is normal in caliber. Shotty retroperitoneal lymph nodes. Bones/Soft Tissues: No acute osseous abnormality. [facility] POC Glucoseon 08-15-2020 Glucose [Mass/Vol] 219 mg/dL High 65 - 99 mg/dL [facility] Interpretation and review of laboratory results Abnormal [facility] BMPon 08-14-2020 Anion gap [Moles/Vol] 13 mmol/L 10 - 2 0 mmol/L [facility] Calcium [Mass/Vol] 9.2 mg/dL 8.4 - 10. 2 mg/dL [facility] Chloride [Moles/Vol] 104 mmol/L 98 - 10 8 mmol/L [facility] Creatinine [Mass/Vol] 1.05 mg/dL 0.50 - 1.30 [facility] GFR/1.73 sq M predicted among non-blacks MDRD (S/P/Bld) [Vol rate/Area] The eGFR should be used for monitoring renal function only and not for medication dosing. [facility] GFR/1.73 sq M.predicted CKD-EPI (S/P/Bld) [Vol rate/Area] 77 >=60 mL/min/1.73 m2 [facility] Glucose [Mass/Vol] 230 mg/dL High 65 - 99 mg/dL [facility] HCO3 [Moles/Vol] 26 mmol/L 21 - 32 mmol/L [facility] Interpretation and review of laboratory results Abnormal [facility] Potassium [Moles/Vol] 3.8 mmol/L 3.5 - 5.1 mmol/L [facility] Sodium [Moles/Vol] 139 mmol/L 135 - 145 mmol/L [facility] Urea nitrogen [Mass/Vol] 21 mg/dL 8 - 25 mg/dL [facility] Urea nitrogen/Creatinine [Mass ratio] 20.0 mg/mg [facility] CBC WITH AUTO DIFFERENTIALon 08-14-2020 Basophils (Bld) [#/Vol] 0.04 10*3/uL [facility] Basophils/100 WBC (Bld) 0.4 % [facility] Eosinophils (Bld) [#/Vol] 0.23 10*3/uL [facility] Eosinophils/100 WBC (Bld) 2.6 % [facility] Erythrocyte distribution width (RBC) [Entitic vol] 12.5 % 11.6 - 14.8 % [facility] Hematocrit (Bld) [Volume fraction] 33.4 % Low 41 - 53 % [facility] Hemoglobin (Bld) [Mass/Vol] 11.4 g/dL Low 13.5 - 17.5 g/dL [facility] Immature granulocytes (Bld) [#/Vol] 0.02 10*3/uL [facility] Immature granulocytes/100 WBC (Bld) 0.20 % [facility] Comment on above: The IG parameter is the percentage of metamyelocytes, myelocytes and promyelocytes. An immature granulocyte count (IG) of 1% or more suggests the possibility of infection, an IG count of 3% is very likely related to an infection. Interpretation and review of laboratory results Abnormal [facility] Lymphocytes (Bld) [#/Vol] 2.00 10*3/uL [facility] Lymphocytes/100 WBC (Bld) 22.3 % [facility] MCH (RBC) [Entitic mass] 30.6 pg 26 - 34 pg [facility] MCHC (RBC) [Mass/Vol] 34.1 g/dL 31 - 37 g/dL [facility] MCV (RBC) [Entitic vol] 89.8 fL 80 - 100 fL [facility] Monocytes (Bld) [#/Vol] 1.00 10*3/uL High [facility] Monocytes/100 WBC (Bld) 11.1 % [facility] Neutrophils (Bld) [#/Vol] 5.69 10*3/uL [facility] Neutrophils/100 WBC (Bld) 63.4 % [facility] Nucleated RBC (Bld) [#/Vol] 0.00 10*3/uL [facility] Nucleated RBC/100 WBC (Bld) [Ratio] 0.0 % [facility] Platelet mean volume (Bld) [Entitic vol] 8.6 fL Low 9.4 - 12.4 fL [facility] Platelets (Bld) [#/Vol] 296 10*3/uL [facility] RBC (Bld) [#/Vol] 3.72 10*6/uL Low [facility] WBC (Bld) [#/Vol] 8.98 10*3/uL [facility] URINALYSISon 08-14-2020 Bacteria Auto Ql (U) None Seen None Se en /hpf [facility] Bilirubin Ql (U) Negative Negative [facility] automated (U) Cloudy Abnormal Clear [facility] Color (U) Red Abnormal Colorless, Yellow [facility] Glucose Auto test strip (U) [Mass/Vol] 150 Abnormal Negative mg/dL [facility] Hemoglobin Auto test strip Ql (U) Large Abnormal Negative [facility] Interpretation and review of laboratory results Abnormal [facility] Ketones (U) [Mass/Vol] Negative Negat rod mg/dL [facility] Leukocyte esterase Auto test strip Ql (U) Negative Negative [facility] Nitrite Auto test strip Ql (U) Negative Negative [facility] pH (U) 8.0 [pH] High [facility] Protein (U) [Mass/Vol] mg/dL Abnormal Negat rod mg/dL [facility] RBC Auto (Urine sed) [#/Area] >180 High [facility] Specific gravity (U) [Rel density] 1.020 [facility] Urobilinogen (U) [Mass/Vol] <2.0 <2.0 mg/dL [facility] WBC Auto (Urine sed) [#/Area] 4 [facility] Microscopic examinat ion is performed on all urinalysis samples and only positive findings are reported. The test for blood on the chemical analytic portion of urinalysis may also be positive due to hemoglobinuria and myoglobinuria and if red blood cells are present they are quantified by microscopic examination. [facility] Basic Metabolic Panelon 10-0 -2020 Anion gap [Moles/Vol] 15 mmol/L 10 - 2 0 mmol/L [facility] Calcium [Mass/Vol] 8.8 mg/dL 8.4 - 10. 2 mg/dL [facility] Chloride [Moles/Vol] 107 mmol/L 98 - 10 8 mmol/L [facility] Creatinine [Mass/Vol] 1.41 mg/dL High 0.50 - 1.30 [facility] GFR/1.73 sq M predicted among non-blacks MDRD (S/P/Bld) [Vol rate/Area] The eGFR should be used for monitoring renal function only and not for medication dosing. [facility] GFR/1.73 sq M.predicted CKD-EPI (S/P/Bld) [Vol rate/Area] 55 Low >=60 mL/min/1.73 m2 [facility] Glucose [Mass/Vol] 86 mg/dL 65 - 99 mg/dL [facility] HCO3 [Moles/Vol] 25 mmol/L 21 - 32 mmol/L [facility] Interpretation and review of laboratory results Abnormal [facility] Potassium [Moles/Vol] 4.1 mmol/L 3.5 - 5.1 mmol/L [facility] Sodium [Moles/Vol] 143 mmol/L 135 - 145 mmol/L [facility] Urea nitrogen [Mass/Vol] 14 mg/dL 8 - 25 mg/dL [facility] Urea nitrogen/Creatinine [Mass ratio] 9.9 mg/mg Low [facility] CBCon 08-06-2020 Erythrocyte distribution width (RBC) [Entitic vol] 12.2 % 11.6 - 14.8 % [facility] Hematocrit (Bld) [Volume fraction] 30.3 % Low 41 - 53 % [facility] Hemoglobin (Bld) [Mass/Vol] 9.7 g/dL Low 13.5 - 17.5 g/dL [facility] Interpretation and review of laboratory results Abnormal [facility] MCH (RBC) [Entitic mass] 29.6 pg 26 - 34 pg [facility] MCHC (RBC) [Mass/Vol] 32.0 g/dL 31 - 37 g/dL [facility] MCV (RBC) [Entitic vol] 92.4 fL 80 - 100 fL [facility] Nucleated RBC (Bld) [#/Vol] 0.00 10*3/uL [facility] Nucleated RBC/100 WBC (Bld) [Ratio] 0.0 % [facility] Platelet mean volume (Bld) [Entitic vol] 8.5 fL Low 9.4 - 12.4 fL [facility] Platelets (Bld) [#/Vol] 330 10*3/uL [facility] RBC (Bld) [#/Vol] 3.28 10*6/uL Low [facility] WBC (Bld) [#/Vol] 7.51 10*3/uL [facility] Glucoseon 08-06-2020 Glucose [Mass/Vol] 116 mg/dL High 65 - 99 mg/dL [facility] Interpretation and review of laboratory results Abnormal [facility] Glucose [Mass/Vol] 91 mg/dL 65 - 99 mg/dL [facility] Interpretation and review of laboratory results Normal [facility] Basic Metabolic Panelon Anion gap [Moles/Vol] 14 mmol/L 10 - 2 0 mmol/L [facility] Calcium [Mass/Vol] 8.9 mg/dL 8.4 - 10. 2 mg/dL [facility] Chloride [Moles/Vol] 107 mmol/L 98 - 10 8 mmol/L [facility] Creatinine [Mass/Vol] 1.19 mg/dL 0.50 - 1.30 [facility] GFR/1.73 sq M predicted among non-blacks MDRD (S/P/Bld) [Vol rate/Area] The eGFR should be used for monitoring renal function only and not for medication dosing. [facility] GFR/1.73 sq M.predicted CKD-EPI (S/P/Bld) [Vol rate/Area] 67 >=60 mL/min/1.73 m2 [facility] Glucose [Mass/Vol] 115 mg/dL High 65 - 99 mg/dL [facility] HCO3 [Moles/Vol] 24 mmol/L 21 - 32 mmol/L [facility] Interpretation and review of laboratory results Abnormal [facility] Potassium [Moles/Vol] 4.0 mmol/L 3.5 - 5.1 mmol/L [facility] Sodium [Moles/Vol] 141 mmol/L 135 - 145 mmol/L [facility] Urea nitrogen [Mass/Vol] 13 mg/dL 8 - 25 mg/dL [facility] Urea nitrogen/Creatinine [Mass ratio] 10.9 mg/mg [facility] CBCon 08-05-2020 Erythrocyte distribution width (RBC) [Entitic vol] 12.3 % 11.6 - 14.8 % [facility] Hematocrit (Bld) [Volume fraction] 31.3 % Low 41 - 53 % [facility] Hemoglobin (Bld) [Mass/Vol] 10.1 g/dL Low 13.5 - 17.5 g/dL [facility] Interpretation and review of laboratory results Abnormal [facility] MCH (RBC) [Entitic mass] 30.0 pg 26 - 34 pg [facility] MCHC (RBC) [Mass/Vol] 32.3 g/dL 31 - 37 g/dL [facility] MCV (RBC) [Entitic vol] 92.9 fL 80 - 100 fL [facility] Nucleated RBC (Bld) [#/Vol] 0.00 10*3/uL [facility] Nucleated RBC/100 WBC (Bld) [Ratio] 0.0 % [facility] Platelet mean volume (Bld) [Entitic vol] 8.7 fL Low 9.4 - 12.4 fL [facility] Platelets (Bld) [#/Vol] 348 10*3/uL [facility] RBC (Bld) [#/Vol] 3.37 10*6/uL Low [facility] WBC (Bld) [#/Vol] 7.74 10*3/uL [facility] POC Glucoseon 08-05-2020 Glucose [Mass/Vol] 121 mg/dL High 65 - 99 mg/dL [facility] Interpretation and review of laboratory results Abnormal [facility] Glucose [Mass/Vol] 106 mg/dL High 65 - 99 mg/dL [facility] Interpretation and review of laboratory results Abnormal [facility] Glucose [Mass/Vol] 86 mg/dL 65 - 99 mg/dL [facility] Interpretation and review of laboratory results Normal [facility] Glucose [Mass/Vol] 87 mg/dL 65 - 99 mg/dL [facility] Interpretation and review of laboratory results Normal [facility] Glucose [Mass/Vol] 113 mg/dL High 65 - 99 mg/dL [facility] Interpretation and review of laboratory results Abnormal [facility] PT/INRon 08-05-2020 INR Coag (PPP) [Relative time] 1.1 {INR} [facility] Interpretation and review of laboratory results Normal [facility] PT Coag (PPP) [Time] 14.2 s [facility] During the induction phase of oral anticoagulation, the INR may not reflect the anticoagulation status of the patient. Therapeutic ranges for INR's are: Most clinical situations: INR 2.0-3.0 Mechanical Prosthetic Valve: INR 2.5-3.5 Critical: INR >5.0 [facility] POC Glucoseon 08-04-2020 Glucose [Mass/Vol] 202 mg/dL High 65 - 99 mg/dL [facility] Interpretation and review of laboratory results Abnormal [facility] Glucose [Mass/Vol] 162 mg/dL High 65 - 99 mg/dL [facility] Interpretation and review of laboratory results Abnormal [facility] Glucose [Mass/Vol] 87 mg/dL 65 - 99 mg/dL [facility] Interpretation and review of laboratory results Normal [facility] Glucose [Mass/Vol] 150 mg/dL High 65 - 99 mg/dL [facility] Interpretation and review of laboratory results Abnormal [facility] Creatinine, Serumon 08-03-20 Creatinine [Mass/Vol] 1.20 mg/dL 0.50 - 1.30 [facility] GFR/1.73 sq M predicted among non-blacks MDRD (S/P/Bld) [Vol rate/Area] The eGFR should be used for monitoring renal function only and not for medication dosing. [facility] GFR/1.73 sq M.predicted CKD-EPI (S/P/Bld) [Vol rate/Area] 66 >=60 mL/min/1.73 m2 [facility] Interpretation and review of laboratory results Normal [facility] POC Glucoseon 08-03-2020 Glucose [Mass/Vol] 184 mg/dL High 65 - 99 mg/dL [facility] Interpretation and review of laboratory results Abnormal [facility] Glucose [Mass/Vol] 232 mg/dL High 65 - 99 mg/dL [facility] Interpretation and review of laboratory results Abnormal [facility] Glucose [Mass/Vol] 146 mg/dL High 65 - 99 mg/dL [facility] Interpretation and review of laboratory results Abnormal [facility] Glucose [Mass/Vol] 119 mg/dL High 65 - 99 mg/dL [facility] Interpretation and review of laboratory results Abnormal [facility] Wound Anaerobic Cultureon Bacteria identified Anaer cx Nom (Wound) No Anaerobic Growth at 5 Days [facility] Creatinine, Serumon 08-02-20 20 Creatinine [Mass/Vol] 1.15 mg/dL 0.50 - 1.30 [facility] GFR/1.73 sq M predicted among non-blacks MDRD (S/P/Bld) [Vol rate/Area] The eGFR should be used for monitoring renal function only and not for medication dosing. [facility] GFR/1.73 sq M.predicted CKD-EPI (S/P/Bld) [Vol rate/Area] 70 >=60 mL/min/1.73 m2 [facility] Interpretation and review of laboratory results Normal [facility] POC Glucoseon 08-02-2020 Glucose [Mass/Vol] 187 mg/dL High 65 - 99 mg/dL [facility] Interpretation and review of laboratory results Abnormal [facility] Glucose [Mass/Vol] 170 mg/dL High 65 - 99 mg/dL [facility] Interpretation and review of laboratory results Abnormal [facility] Glucose [Mass/Vol] 126 mg/dL High 65 - 99 mg/dL [facility] Interpretation and review of laboratory results Abnormal [facility] Glucose [Mass/Vol] 110 mg/dL High 65 - 99 mg/dL [facility] Interpretation and review of laboratory results Abnormal [facility] TISSUE EXAMon 08-02-2020 Case Report Surgical Pathology Report Case: [id number] Authorizing Provider: Jet Calvillo DPM Collected: 07/29/2020 02:42 PM Ordering Location: [facility] Received: 08/01/2020 05:37 AM Center Periop Pathologist: Abigail Oviedo, MD Specimens: A) - Foot, Left, first metatarsal left foot B) - Foot, Left, left medial cuneiform C) - Foot, Left, left foot second [facility]atarsal [facility] Clinical information [id number] yMDAw [id number] JkBcPmuhvYXdBRWjRkYqa1fk c113tPWdd5fgHDQdOeV7nRKb ZOSxlPFaG090z5nfa7jrfnQq pZR8EIYqQZX9PJdtbqLowjZ7 VVuwhCZvKfA2PJyguaFdXPdx kpYfjdXfWlw4ZCBuK736RRI1 uEfvy3xyRHO2QHRfSFSzQiDs Cr4ypWGgN651IQGnPACWIFXm sSv3RAWutyWainKmqMJJs997 C301e4xkSRVzveLyqQkFvfui w3fdE412SFVbuOXukeVgFgSr TDKhpMTngTU2BHNmIP9uivdh QzHlCH3twhuiRqWaCU9wiya0 SFB4HExnUPCrOaA0JKElzHAp IMQpgOvaBFawo340VYD2HJqa h0kuj4olmMGlAqp1KHPrTeJa CopcMUgjx5Abn6kjZMFxzg3o HDQ1qWZaeXsgw4H3yYXgLLNy hLCxrmLcVDRmYoV1UPpzOW0x nd96NGKvHOF2kq7ibCUhyBsi imBmgQBaLMkaH3XyKSKpz664 LBIrR4CzAPRht5J5izOaZxMj EEDmvXO3enP7QEXtXEj4qJLh aiV7qpMevCPfQ1rytR86RuDr bTFuJ3GjsD09ZvSxxFPjB0Id sL9sKWMnXS0envhyw2paJXH1 YTpoHHKfREN5NxTjVUQiz7Vv aivkNISpv5EhU6AfvJkoE70j hBawL63gJNTvuUpdaL9vnLjv wW1pIzBoFrHyWBzzvZvqvATb blxmMFxmczIwXGxhbmcxMDMz PUstF0jlWzPgQNZphVesXLtv t6OrPFEbOJVnCkBfYRAsgECe v053BGOfY6YhZGWkqf2= [facility] Pathology report final diagnosis Narrative n1hbxHAvWAVyqQFiGfDoFNIu XLCqf7rfOUSazDNyMxIwFmKe NrKwJbgdjKJpUALsAdQbi4cx c117oFWdg8twBLTdAjQ8oKId GIScbYCuI571WBCsRZwja1cv i1DvFMAmfMEob0J4CIXGtkks lGw6q7rdAuXxDoSqzFFtWYyj Y7qyxtJkpYBvHNWyDUm5tX17 DCQqdX6hxGFmFBynylZdJtU5 WLjxPNFfJdQ7OWYidMBrBUQf B0klHELiQOciZHIiXFastCDm PLL1kGxsd9X6oJDzkZAocWjj ViGsAxPnHQUBx1PjXEb7nNeu N0ZoEQPfOsN1wFEgKZQcUCkt HBOhEEBiqbG3qJ07IXkigoN7 dVMzs1Abk25se692vT4uaEHt EPL6XNBmPJHgdXJpSQLwKEE6 AVDsgDUeK5x2VjZxsTSkP7I2 KkLhnPZoG8ClVOZaTH0hweql EER8VWatUJCoWOC7WlKpBZGw d8HpxiuiGY6eT1Cna7C8qS3c aPInJLUqtVPfOwIdEBQbpx5k aCOiELdel9ZeAKA0beK3kJDu nYXcRTXtJS69Mxlww3CdEzbm RXH5XXSavyWki0KuGEW1yx0h pYUpyBbwihGqnUApTHhrB3Ep YSPob063XBFgV2RlCPQhj4B8 iuVeNmTkCEExqDR1tnR5EAJa AFr7rETfvrW8veLcyGTiC5aj aU29ZqBldFPsX5HliI50BuYj oMXuN4LihW9ePJNtLP9xfcpo i6yrORG5YXvvCUIjXVL1GhOl UROok2VxpbzhSGWln6IoN6Rg oEftJ92qiAazF70bFSXwaNjr aG4wvTnqzG3hQdGoWoMmJIlx LLDtANClvUWfTOV7zAHyobDh dHgzNjBcbHRycGFyXHFsXHdp EIR0nCNuargxpBLiidpiCKji rqQyPLspihdtXNOpUOlpT9dw EoGvVPMgqUieUVowp0DgNKCp XGNmMlxmczIyXGJccGFyXHBs YWluXGYyXGZzMjJcbGFuZzEw MzNcaGljaFxmMlxkYmNoXGYy UMdvS4wtGbSiB9ZuNSPcWmPc oWGiF1grRwWHWyPveGbpdU5f OdUkCpQcIdalHI1lJHEdQ9mf hNAjZNNvYMWeO6tpQvDbgF7g aFxmMVxjZjJcZnMyMlxiIEJv zzPnHFiqGvYxZu8nuLYdwVCa pLEnALCjcZFwm8IkVZJwfL0c r5x4MRxioQCqfnzkSxmkqzRa MRustxdkIYReEUghH4qoEyRt WEAigDruDrnvn5BhINPjNVUt YhtthoGqMEw1ieJsWFGeRKCh XGBcfVvltF9vBcVjXmPwTmoi GN3kWQRjF6ixzXWiEMPzKLVu Q2koJpXfzU3axJoaWIdaIuWb ZnMyMlxiXHBhclxwYXJcbGk3 XnAyhImhbN9vVyLiHcLhQHoq bGFpblxmMVxmczIyXGxhbmcx BTQpVKobM9wbYwGmNRUbyWrw VExdq0TyYDOrRXXrMzkhxvRm GZKdUq4cNXG9xMYyJG7wszO8 WQWpe3H2onHpYaZssILyaoaq VNllUnkdzT5xcHrnmnucd9Iq P5IkqRs1XTBeCxQce0JkeMQq vF2blQJlQO1vxCPevTwwsXr2 aXMuICBccGFyXGxpMFxwbGFp qkujYNiodzX3EAKjVKutRFFw XGZzMjJcbGFuZzEwMzNcaGlj bLvsZimrHtKhKTMvVVjpW6rx VaDxH5HvVVWbDeFpwMExV0mf JwwrQWAnFd1iNRMvGFylKSDv XGZzMjJcbGFuZzEwMzNcaGlj nWsmFOriIfPbKYTjQHrlV6nq OaAjS7MoOVGqBvWiXkWHf15w JZLuSJK3JT8bWDjwfLUpaD1v rEEcuc2nDXRhh8CknBkjDICa YWluXGYyXGZzMjJcbGFuZzEw MzNcaGljaFxmMlxkYmNoXGYy VLklH4qnWuFkL3TlIQGgGrLz pGNgL8yhZtQtKEAcWLpkaBCm blxmMVxmczIyXGxhbmcxMDMz BUrsD3qdMxOoSUWauRxnEHzd n1HhOKLpIACgGnpshhAzQFWz cGFyXHBhclxsaTcyMFxwbGFp gsykFDlzcbA2AZLbZQayUHWb XGZzMjJcbGFuZzEwMzNcaGlj qThtSYlrWrReKRYjBHqpY5au ZbIrF5IfWAXaDkZjIdRXh30t IKzrcHqggm6gw3KtG4xbzUVq qPV0uC1jk9lsWrZtcXXiP9Ob AA2jD3G5sIAgZEFzegMud8Mx f131SUbckErkYmCecUInJIcv BZkqvISukacoZEhqrlH6ZGBg YWluXGYxXGZzMjJcbGFuZzEw MzNcaGljaFxmMVxkYmNoXGYx XLorI2qaExFrI6YrQQEjRtPu YlxwYXJccGFyZFxwbGFpblxm WTjwaeD2EYWuROpuJIJeBILq MjJcbGFuZzEwMzNcaGljaFxm SNwmZpJrNEIcPGfaS4jpXrCz R1IsJJRvKnSkSjMRUXFpLKnt XGYyXGZzMjJcbGFuZzEwMzNc aGljaFxmMlxkYmNoXGYyXGxv Q0gzKbYaX4WkDDQoZbKviVOn X5usUeAfDMokjWBuymyaXCuc zjNlUJcshiyoPJAdYDeoV5gf InIpKUCzpCgmZNrgg8WiCOFm WMJfVwkrurNxCBEdQh1yHOmw mBYazBAus498OMVkK19lHGHu VVRkaQTbe0CaJIAtcG0dt3o9 IFxwbGFpblxmMlxmczIyXGxh fkncGOPsLXqfT7ajVgJnLAVq pFxcFnfaj7JrFOQaWUNsMsul lnLfHXv9jvGqIBMiZYAeBQVc sPwmyH0rJpVsGcBoNxfqFD5n CONfB5hnvJQlLWZaJJTyR0ik WuNjeP2kdUahYVgpLvThHaRc SwdcKRKecovzLPNzoBy6UpQd gYctcAmqbV0oOrOsDsJlMVyl bGFpblxmMVxmczIyXGxhbmcx IGEwDBxpG8jzKfFkIABqpJuj HPenz0EjKXRrYBDcUemjimIs EQVsNb8sVES1xLIsAH3qAZAv SRCwZpsvWYTfbNryrS1ofXTb Z9dzwnmnNMKwEMwktBd2ANHc e7Vca2F0WI6scWYzxTKlse7i CGJcorleGBXrArqphi7gADwl z3BfBOLfWCAbxSEkv9FaDKYv o6Y7HAS2nUDkUDYevCAnNJKy s0LxauUujvCjnWjoXIXcX7R4 GRQbzzYkG5dxb79uQpDdeqIf BY5eCZDua88wKPlqMTUoxIKe LUoliYHaauaxSLroetJ8EENf YWluXGYxXGZzMjJcbGFuZzEw MzNcaGljaFxmMVxkYmNoXGYx CObjS6ghRyNuK9WtVKKwHiXh EtzzBWDbmHtamQ4oJjRaBmZk MSteMH9rUHBrG9xvgBNaDOOs VCFgI8blHcZkdA9jbWsvXHeo mcXiJHiGWw6jMpuvGKAttUWr XHFsXHBsYWluXGYwXGZzMjRc dLohfQ1zYuDjMxUdQQxpLL3r QMIpA6kwmBEtWUMhGJVuJ8aw DtLizM8iwPnsPWjtthYzKFDm clxwYXJ9 [facility] Pathology report gross observation Narrative w1uupATeGFLneAWcGiHvONLi WSIje0jkCBIjiXHrTeLzViOk VsVvPqkrxMUrIJZxOdYgu2ck o363aOPeh8cvZWNzLgL0uJPh BSAquHExF225FTWvWFttve8u DH3uEAUrlPJmi3Y4SJEAxlxi cFh4j3peMjIzZbD2vKIaTEnt V8bqloNnoBUbFCQnDBz3lHjx SoJwONWmp2Fcff7dPIUscQTz w2H1BRMCfnmisXo0dRjmR74d e9J7PueiT9ftQSNyGIayNBIg BDwszBFdRHR9NOQgNKL4AWpq kmKhzoB2VUbxqOWvTfL7SSca ueJbVnGoSHlxSONbMiI7VOWd pLRnWMHrM766GNC7wHduc2hy QDM7TXZcTLUlNeSmZf1kmKHg T001LMNmGWYOGWDbeXp7ZLNj woWdnoStkKROk378Q055g4kr MVGxmxYcvYrVlieia0haP685 XHBhcGVydzEyMjQwXHBhcGVy vWN2UTGoOB2pbfezOvOtSM7v vvivWqUdHI4khtq9NRS3BLjg YRSsVeC1VZIkfJJxBFVefIlo JGirk127BMS8TYuyr4zkc5jz dOPqWkr2RNKoVvYsHlexOHrw n7Nlv8naJPXhyc1nPTY8xEXu kXckp9E1aJIxZRKnhLDxabUm UNJoIrX8NPjvKX6sWW3aDOSa bE8gpwfrQRNhQoImambwKFSm eVbgpkInEd4jaYqkZGD3PIjh E3pjlY1oIjH5BOthJ8sjyM8k XJk8EZnhgCW5HOKymN4yPF4o wqfdz8mmNpQhJC2qjeuzi4io NrQjRL7ktns0s2bvDXF6CPpc WRLoKuU3gkC8MYIntNOiUXCj xLmeAPuca916IZQ5MJrxDcub YWdlXHBnbmNvbnRccGduZGVj XHBsYWluXHBsYWluXGYwXGZz MjBccGFyZFxwbGFpblxmMFxm czIwXHBsYWluXGYxXGZzMjBc bGFuZzEwMzNcaGljaFxmMVxk TgIzGLYrJBkdO3nmYtZiU7Fs AZLrZjCgcUYeC0dvF1JeK1vr CV2iTP0tYFImT4NmixMgAMpi PDZzsu2lzGkcMCiqDeAbHKRw IlxwbGFpblxmMVxmczIwXGxh otrjHBCpFUhxR0uwXqTsXCYq oNhgRKmnk7XnHOJrKQVbVAmn luMkVQIci9OpF5O3UODaVNwp w8ipSEFwFCuzq1IqQOmVRVOK FM1TNO2exEX1SMgUY6OIR9pM aLP2BIIveHW0UXFCCA1RlIlS TREuPaLuZSytzGwaoC50GZCk YUXvtQLxGFnoI444LYIkXIep XGYxXGZzMjBcbGFuZzEwMzNc aGljaFxmMVxkYmNoXGYxXGxv Y9sqEwVoS9KtHAShJxOxbPXp uRSowNVFmGCfuA8wNGCnRCaa BWtfzvwzdNtjjY8iWaCmJfZg JUadAL1dWNTwR9nxfICgYLPw AHPiE6muYyKhgT0jsEchGPjq OqRaObBfEMfyig98YOF7i2zd dBCuMSskQwcvvSAymsJ2YOqA FKQWGNaEFhRsFD6aFXtDTrgT ZjK2YrbnDZH7AHzRNvgOSpn1 jRROSLzsGeyaAXQ1fRQ7eXyk HkqhiiGdbDTmGdOsiZ1rbMkl jM6xBdYmXyByCEhtWV5kQWUq E4pizZTuHXEtXBXeW9fpRtZu oQ6ikEqzIUeoLuIvNjReOKgd vFYzkCNaNUSwKLArXKCpL64j mVCkCTCqkOrywZ2hFwDwRuNn ICYjq447LAJnQCY6AXQioYHc kSBlNBHynGSrc9SsCXOfGFhl XGYxXGZzMjBcbGFuZzEwMzNc aGljaFxmMVxkYmNoXGYxXGxv E2uzOqLjE2EmFPLtMzJdaENe O8isLqxviJKwqtbhGrityhPz ZVNyzyJbDVxlqKopbn40NN1s KCxwKI79sZLpTNMukFulqqBj gRVqjNAkz107BNZfz0Q3IKSk z7OzLZDzRXGgmAQli1VwBRGs XP36IKYfAAukwkfukSToBwQx L13qzM8fRHpuxPV7KDDmBZNJ aAkdLT0oJYNcOpCzbaGuPGBd fJEmSpuhVZZfr58tDVuuwBPu giqtH7mbiwHiYJhqldptTYYw DGkhE5kdKiYqHECxqIjrV0ti v0EuIHMmDEWrUTcvjkZkCWTc J6fyahS3rKlkSMBkJXYjsXTj XHBhclxwbGFpblxmMVxmczIw LQlnziqlVKZmMKzsP1isBpTc WPVpgQojJHizg5HjBLCgDEVu ORbrwoMxJSs9nyDgCDAmTBFt bWVuXHBsYWluXGYyXGZzMjAg MOLklFduuV5mMnGvYrTtZNfu VH3cAKHgV8rbyGFjWSVfCQMw M1ouLnQflH8dpBpqGBguMfRh ZnMyMFxsdHJjaCAuICBSZWNl lWBiURHdorBpx7FlXKwswrBa SBDazGTjRYLmfLnvnF3mTnAj HpFeQQniKN0cRMDbI3qicBIs AQQjLPXpL3qtMkLweS8kkRdh DWygXvZsWxQzQRufrs17UHG1 a0jbuQCtXBjoWpuakZMufpL8 HSgWMXNAPMjYZfTgKP5gGZpL TktCRUdJTnwzODAwMXwxfERC ABrWK9v9KJKOPH7nGWtyWbs3 ZFm4d3vlvNImh4n2DAznYKS6 fVxwbGFpblxmMVxmczIwXGxh ktqmAIBeQHzqA0ksEnStQSQq rMvdQZdgh2BgCUSjZXXkJBcz vsMvNJHfc2JnA7QoBhune6yc K2XgALHEsbCwc8I7MYUgVNpp XGYxXGZzMjBcbGFuZzEwMzNc aGljaFxmMVxkYmNoXGYxXGxv K5izPzMeB5RuOVSsZeBpoLJs lRVrzHatBioftNR3DWoeHiyn jY1phKRRMXMDDwoWUfvzsxBf VZ1NIL7MLX9HlQR1UDAuaNC7 BDKYCZ4SqLhMBDCgSdLjFQgy lNskcB23FIAnDOCroLCkXLad C718VNPcXFtvWLMjXAEtNcIp bGFuZzEwMzNcaGljaFxmMVxk AhHkRHUoFSfaJ4riBbHyZ3Am JEUiOvXscHBzE1heTcTnkuDl ZGVzaWduYXRlZCAiXHBsYWlu OVCzMQWeCoPqRj3rsHmnlPNy dFxwbGFpblxmMVxmczIwXGxh drrkJVGmCZggE8gmFvFqSIHh lWoyKUpyf8UtVTOuWXExLQhh xiCrYSz0suIpGQYgmTnifT7i ZjJcZnMyMCAgYXJlIHRocmVl FQTriiZ9iiZ6UF2dU8DegJlw T8yjnS1ydvczXArcZDGaLQTc hmVmG3CrNTUpjU3jdCTmOIDt Ud4xgNZ6mTYrhAAoMrQgY15m bnRzIHRoYXQgYWdncmVnYXRl PLRiRAZjTtB2AHWkZOU1WOWo CtAaxO1tUUTzmNRxBzLkSISr vFVsDTAnT8KjV9kgpUFoqAhz odbkfWKvuuaoH5vokzZhDDbu cptiRWLwRRycI7ekErFnZFWp pFdzV4xjl8HwOKLzNSYkQBgz rlRtYLSzL6ylipV8sSzpKNKz ICBccGFyXHBhclxwbGFpblxm MVxmczIwXGxhbmcxMDMzXGhp P2adYkKqPBYntMcnMKwfn9Xh MBUvANXdUShiqxGyZFc1rmFr IFNwZWNpbWVuIFxwbGFpblxm JfmdmrXxEVJxqAspjB3aVgPw ThCzFWfeHX6lCBPnK7yazSCi WAMpDFDhY9xiAiMndV2gyBdn MVxjZjFcZnMyMFxsdHJjaCAu HVHMHRGnhPJhQBNufdHxl9Lf YWxpbiBsYWJlbGVkICJccGxh tN4gFaUxZfPvIIldFZ6eCSEe R7qafVOoQOCqKXXkB4qgTkKn kE4wpYsuRUvsBfLsRqCmLBbi pr50NTT7l0turBHkIDraXuzr fTUpmlD8UHnIAAFJJNnTDiCz WP2hORhUChpMNNmJIugwPHVg YRohsNPTBYkOG9e6PRGTQQ2z ZMjqCrk2RBv3q6tzrQVsb8d2 EOcdANF7bSskgJUpdneqXJog ceYgJEcipwjeKJBpIKvrK5xy HxXsMOGouAbpSCyiy2UzNTPo BFMyFEcaovPrAQYrm9VyU6Xr Jkmuv9fnO1SePMUBccCfa1V1 XHBsYWluXGYxXGZzMjBcbGFu ZzEwMzNcaGljaFxmMVxkYmNo DUEwKJhkK9vyRyMdC9BrRLWv MjBccHJvdGVjdHtcZmllbGR7 XGhlCedoaK1tuWMBVSMZAjtE EclwgwUdPW9ZSJ5RSJ9MpJX1 HHKhvJF8CXNSAC4BlMnCWULt NfByOZwtbYsmtZ28XGLvQNRn iAZqFPrcO171ZJVqUMxdHNUr XGZzMjBcbGFuZzEwMzNcaGlj tZklCZaoApXpPATlPKelT7ri AxAkS4WxIFQaQwJfaBTiE0vf IiBhbmQgZGVzaWduYXRlZCAi UQEfMZnjMORjHUDoTiLrFx8d yMcmbSQraPrtz8Qdl92iKJ2o dFxwbGFpblxmMVxmczIwXGxh vcpqTGKwJWqrV4qxBoWcUFHu cPhhUPsfz8IlTAZsKTCvZVgj vwClVGk2kjHvFLEwjCaqzA5n XmNgScJfLRDfVVDcVB94tOWn nDpwKOhndLrdmk59CR4vEDys TT84vFQzEYGllFbyepQcbRUz rTIwd021GSKmGSCwr7S7CWNx h6L2GDKwfnFakQVkaDHhrTqo qBNbR8lxJEvjwGXqwR3aIQ4d SSvvBU82ETzdMI0mEKDfDyPe TIloDF0qVEybOHR8ELMyGQSs OAxqeYIwF0U0yD9tHxnujEKo ayuoI8pyuxLfLTnoqtwvQXOo RWwgM2pdYmSkVBYstJkqP4bf w6XbGEUoEQPsXSjvjxZyWRXz U4qzgvG6xXqeAUNcIKMpuYUu PTBegoLKK8FwGxFIN61fC3ju WARiaNwxdBaviY7dHbUqVwCn MFxwbGFpblxmMlxmczIwICBc dUJhMPsor1WcKWP4OM2fqpL6 pE2gFVDtizEvvt0nTSSxmDbe Gzm6CKSysMFbNI8ozCrsAVhw gBRXg1XkbVUdzNCqOHO7UvFz I8gfltQnpgr3JCOaqfCkUQMs DVVlB05pyW1eaQSxNC5JETZj LcZ1DIZtif8= [facility] Pathology report microscopic observation Narrative Other stain s5mihDNnYXEhrCGhYlYvDADa SEUpz8jfRGJanNJrHbOsUcUs AdLuLdgglDAcDQFqNhZbd9kz l246xJZtx6fbDFAhIfG4oCNv PTXljZZoI735HAEsLEgqv1su k9ZcIDNwgIPlc5I4FXOGrygh aEt6wXddC33pp9T9EzhvA5bv QFYhDHYdL4FpCK5hGCFxZpt8 PEL8MEE4QHJfYXIqO9WcPN4x DCIgdVEmNFb7a5xeeEdqANNt CDQ6o6qqBTrmlcOmTW5ver8f hUm2e3jlxfOoVEAvYYKpxGNW VJZyQ3VfpViuSc2umWf8jUyt MwptAAH1Glf3KR5bnc80sxq9 qQaaGNOmfgeqMsQ4HGytUTUt tgdzTBw5KUjdSZAdpDM4WNUz kTXqB2WcHXOfRE1qgem4KWV1 DZboQTUwAlX6PIOenMBhBTTf zPvqSRbtg889QLX6ZtXxSI2a B0Mzg1G6kA0kyWMaXGLsdBQx UfCpYQSxil9diJRvXSisw6Zi VAO7trD7nJKhhOEwNPHgOW79 Tlqom9NtUtfyRLB6VOXwfwHp b2Akh9tnZxDrtrGkQ3djM7Vd YHNuSBYhQNSuYqUimaZlv4Be y7ZfiUHszSc8n4jfLXElYGIr lNqap9blJAS3CLUkL6T9sPBt k4jtIGwoZKFsqME4jdE4HIJy dEMqW5HwjP6iSGNvUX6pmlv7 c1nfJSR6FSpcVSGnMsP5atO6 PKQqfKAfJTXsiSozMKiur192 HCM0GyLoWUMte8GkK0ByuRrw N77gdLgeH24dTVXzgAvcnF5o xLapsO7eBbGqDlCnHXhytJur bGFpblxmMVxmczIwXGxhbmcx DDYxKXxxT7ocEcPeEZDocLgs SPmxi9YkFPQoYSAhZoToBOcp rz6tI63xaZYgGMdraUbwPRGd w00eyREqyKJmOy3dbEAeTfwj YXJ9 [facility] Basic Metabolic Panelon 07-06-2019 Anion gap [Moles/Vol] 12 mmol/L 10 - 2 0 mmol/L [facility] Calcium [Mass/Vol] 8.7 mg/dL 8.4 - 10. 2 mg/dL [facility] Chloride [Moles/Vol] 106 mmol/L 98 - 10 8 mmol/L [facility] Creatinine [Mass/Vol] 1.19 mg/dL 0.50 - 1.30 [facility] GFR/1.73 sq M predicted among non-blacks MDRD (S/P/Bld) [Vol rate/Area] The eGFR should be used for monitoring renal function only and not for medication dosing. [facility] GFR/1.73 sq M.predicted CKD-EPI (S/P/Bld) [Vol rate/Area] 67 >=60 mL/min/1.73 m2 [facility] Glucose [Mass/Vol] 139 mg/dL High 65 - 99 mg/dL [facility] HCO3 [Moles/Vol] 24 mmol/L 21 - 32 mmol/L [facility] Interpretation and review of laboratory results Abnormal [facility] Potassium [Moles/Vol] 3.7 mmol/L 3.5 - 5.1 mmol/L [facility] Sodium [Moles/Vol] 138 mmol/L 135 - 145 mmol/L [facility] Urea nitrogen [Mass/Vol] 12 mg/dL 8 - 25 mg/dL [facility] Urea nitrogen/Creatinine [Mass ratio] 10.1 mg/mg [facility] Otheron 08-01-2020 Interpretation and review of laboratory results Abnormal [facility] POC Glucoseon 08-01-2020 Glucose [Mass/Vol] 217 mg/dL High 65 - 99 mg/dL [facility] Interpretation and review of laboratory results Abnormal [facility] Glucose [Mass/Vol] 193 mg/dL High 65 - 99 mg/dL [facility] Interpretation and review of laboratory results Abnormal [facility] Glucose [Mass/Vol] 133 mg/dL High 65 - 99 mg/dL [facility] Glucose [Mass/Vol] 110 mg/dL High 65 - 99 mg/dL [facility] Vancomycin Level, Randomon 0 08-01-2020 Vancomycin [Mass/Vol] 15.5 mcg/mL [facility] No established refer ence range. [facility] Basic Metabolic Panelon 07-06 Anion gap [Moles/Vol] 14 mmol/L 10 - 2 0 mmol/L [facility] Calcium [Mass/Vol] 8.7 mg/dL 8.4 - 10. 2 mg/dL [facility] Chloride [Moles/Vol] 105 mmol/L 98 - 10 8 mmol/L [facility] Creatinine [Mass/Vol] 1.38 mg/dL High 0.50 - 1.30 [facility] GFR/1.73 sq M.predicted CKD-EPI (S/P/Bld) [Vol rate/Area] 56 Low >=60 mL/min/1.73 m2 [facility] HCO3 [Moles/Vol] 22 mmol/L 21 - 32 mmol/L [facility] Potassium [Moles/Vol] 3.8 mmol/L 3.5 - 5.1 mmol/L [facility] Sodium [Moles/Vol] 137 mmol/L 135 - 145 mmol/L [facility] Urea nitrogen [Mass/Vol] 13 mg/dL 8 - 25 mg/dL [facility] Urea nitrogen/Creatinine [Mass ratio] 9.4 mg/mg Low [facility] Creatinine, Serumon 07-31-20 20 Creatinine [Mass/Vol] 1.29 mg/dL 0.50 - 1.30 [facility] GFR/1.73 sq M.predicted CKD-EPI (S/P/Bld) [Vol rate/Area] 61 >=60 mL/min/1.73 m2 [facility] Interpretation and review of laboratory results Normal [facility] Creatinine, Urine, Randomon 07-31-2020 Creatinine (U) [Mass/Vol] 44.2 mg/dL [facility] No established refer ence range. [facility] Metabolic Panelon 07-31-2020 Glucose [Mass/Vol] 158 mg/dL High 65 - 99 mg/dL [facility] GFR/1.73 sq M predicted among non-blacks MDRD (S/P/Bld) [Vol rate/Area] The eGFR should be used for monitoring renal function only and not for medication dosing. [facility] Otheron 07-31-2020 Interpretation and review of laboratory results Abnormal [facility] POC Glucoseon 07-31-2020 Interpretation and review of laboratory results Abnormal [facility] Glucose [Mass/Vol] 173 mg/dL High 65 - 99 mg/dL [facility] Interpretation and review of laboratory results Abnormal [facility] Glucose [Mass/Vol] 179 mg/dL High 65 - 99 mg/dL [facility] Interpretation and review of laboratory results Abnormal [facility] Glucose [Mass/Vol] 123 mg/dL High 65 - 99 mg/dL [facility] Sodium, Urine, Randomon 07-06 Sodium (U) [Moles/Vol] 38 mmol/L [facility] No established refer ence range. [facility] URINALYSISon 07-31-2020 Bacteria Auto Ql (U) None Seen None Se en /hpf [facility] Bilirubin Ql (U) Negative Negative [facility] th Clarity Refractometry automated (U) Clear Clear [facility] Color (U) Colorless Colorless, Yellow [facility] Glucose Auto test strip (U) [Mass/Vol] Negative Negative mg/dL [facility] Hemoglobin Auto test strip Ql (U) Negative Negative [facility] Interpretation and review of laboratory results Normal [facility] Ketones (U) [Mass/Vol] Negative Negat rod mg/dL [facility] Leukocyte esterase Auto test strip Ql (U) Negative Negative [facility] Nitrite Auto test strip Ql (U) Negative Negative [facility] pH (U) 5.0 [pH] [facility] Protein (U) [Mass/Vol] Negative Negat rod mg/dL [facility] RBC Auto (Urine sed) [#/Area] 1 [facility] Specific gravity (U) [Rel density] 1.007 [facility] Urobilinogen (U) [Mass/Vol] <2.0 <2.0 mg/dL [facility] WBC Auto (Urine sed) [#/Area] <1 [facility] Microscopic examinat ion is performed on all urinalysis samples and only positive findings are reported. The test for blood on the chemical analytic portion of urinalysis may also be positive due to hemoglobinuria and myoglobinuria and if red blood cells are present they are quantified by microscopic examination. [facility] Vancomycin Level, Troughon 0 07-31-2020 Interpretation and review of laboratory results Abnormal [facility] Vancomycin trough [Mass/Vol] 27.3 ug/mL Critically high [facility] WOUND AEROBIC CULTUREon 07-06 Bacteria identified Aer cx Nom (Wound) Rare Growth Normal Skin Mary [facility] Microscopic observation Gram stain Nom (Wound) No WBC Seen [facility] h Microscopic observation Gram stain Nom (Wound) No Organisms Seen [facility] Creatinine, Serumon 07-30-20 20 Creatinine [Mass/Vol] 1.01 mg/dL 0.50 - 1.30 [facility] GFR/1.73 sq M predicted among non-blacks MDRD (S/P/Bld) [Vol rate/Area] The eGFR should be used for monitoring renal function only and not for medication dosing. [facility] GFR/1.73 sq M.predicted CKD-EPI (S/P/Bld) [Vol rate/Area] 82 >=60 mL/min/1.73 m2 [facility] Interpretation and review of laboratory results Normal [facility] POC Glucoseon 07-30-2020 Glucose [Mass/Vol] 203 mg/dL High 65 - 99 mg/dL [facility] Interpretation and review of laboratory results Abnormal [facility] Glucose [Mass/Vol] 171 mg/dL High 65 - 99 mg/dL [facility] Interpretation and review of laboratory results Abnormal [facility] Glucose [Mass/Vol] 145 mg/dL High 65 - 99 mg/dL [facility] Interpretation and review of laboratory results Abnormal [facility] Glucose [Mass/Vol] 199 mg/dL High 65 - 99 mg/dL [facility] Interpretation and review of laboratory results Abnormal [facility] Basic Metabolic Panelon 07-06 Anion gap [Moles/Vol] 13 mmol/L 10 - 2 0 mmol/L [facility] Calcium [Mass/Vol] 9.2 mg/dL 8.4 - 10. 2 mg/dL [facility] Chloride [Moles/Vol] 105 mmol/L 98 - 10 8 mmol/L [facility] Creatinine [Mass/Vol] 0.94 mg/dL 0.50 - 1.30 [facility] GFR/1.73 sq M predicted among non-blacks MDRD (S/P/Bld) [Vol rate/Area] The eGFR should be used for monitoring renal function only and not for medication dosing. [facility] GFR/1.73 sq M.predicted CKD-EPI (S/P/Bld) [Vol rate/Area] 89 >=60 mL/min/1.73 m2 [facility] Glucose [Mass/Vol] 209 mg/dL High 65 - 99 mg/dL [facility] HCO3 [Moles/Vol] 24 mmol/L 21 - 32 mmol/L [facility] Interpretation and review of laboratory results Abnormal [facility] Potassium [Moles/Vol] 3.8 mmol/L 3.5 - 5.1 mmol/L [facility] Sodium [Moles/Vol] 138 mmol/L 135 - 145 mmol/L [facility] Urea nitrogen [Mass/Vol] 15 mg/dL 8 - 25 mg/dL [facility] Urea nitrogen/Creatinine [Mass ratio] 16.0 mg/mg [facility] CBCon 07-29-2020 Erythrocyte distribution width (RBC) [Entitic vol] 11.9 % 11.6 - 14.8 % [facility] Hematocrit (Bld) [Volume fraction] 31.8 % Low 41 - 53 % [facility] Hemoglobin (Bld) [Mass/Vol] 10.5 g/dL Low 13.5 - 17.5 g/dL [facility] Interpretation and review of laboratory results Abnormal [facility] MCH (RBC) [Entitic mass] 29.6 pg 26 - 34 pg [facility] MCHC (RBC) [Mass/Vol] 33.0 g/dL 31 - 37 g/dL [facility] MCV (RBC) [Entitic vol] 89.6 fL 80 - 100 fL [facility] Nucleated RBC (Bld) [#/Vol] 0.00 10*3/uL [facility] Nucleated RBC/100 WBC (Bld) [Ratio] 0.0 % [facility] Platelet mean volume (Bld) [Entitic vol] 9.0 fL Low 9.4 - 12.4 fL [facility] Platelets (Bld) [#/Vol] 298 10*3/uL [facility] RBC (Bld) [#/Vol] 3.55 10*6/uL Low [facility] eah WBC (Bld) [#/Vol] 6.37 10*3/uL [facility] ealt POC Glucoseon 07-29-2020 Glucose [Mass/Vol] 195 mg/dL High 65 - 99 mg/dL [facility] Interpretation and review of laboratory results Abnormal [facility] Glucose [Mass/Vol] 117 mg/dL High 65 - 99 mg/dL [facility] Interpretation and review of laboratory results Abnormal [facility] Glucose [Mass/Vol] 105 mg/dL High 65 - 99 mg/dL [facility] Interpretation and review of laboratory results Abnormal [facility] Glucose [Mass/Vol] 107 mg/dL High 65 - 99 mg/dL [facility] Interpretation and review of laboratory results Abnormal [facility] Glucose [Mass/Vol] 89 mg/dL 65 - 99 mg/dL [facility] Interpretation and review of laboratory results Normal [facility] Glucose [Mass/Vol] 191 mg/dL High 65 - 99 mg/dL [facility] Interpretation and review of laboratory results Abnormal [facility] PT/INRon 07-29-2020 INR Coag (PPP) [Relative time] 1.2 {INR} [facility] Interpretation and review of laboratory results Abnormal [facility] PT Coag (PPP) [Time] 14.7 s [facility] During the induction phase of oral anticoagulation, the INR may not reflect the anticoagulation status of the patient. Therapeutic ranges for INR's are: Most clinical situations: INR 2.0-3.0 Mechanical Prosthetic Valve: INR 2.5-3.5 Critical: INR >5.0 [facility] XR OR Fluoroscopy Timeon This is an auto finalized result. Please refer to patient chart for further information. [facility] Basic Metabolic Panelon 07-06 Anion gap [Moles/Vol] 12 mmol/L 10 - 2 0 mmol/L [facility] Calcium [Mass/Vol] 9.1 mg/dL 8.4 - 10. 2 mg/dL [facility] Chloride [Moles/Vol] 101 mmol/L 98 - 10 8 mmol/L [facility] Creatinine [Mass/Vol] 1.02 mg/dL 0.50 - 1.30 [facility] GFR/1.73 sq M predicted among non-blacks MDRD (S/P/Bld) [Vol rate/Area] The eGFR should be used for monitoring renal function only and not for medication dosing. [facility] GFR/1.73 sq M.predicted CKD-EPI (S/P/Bld) [Vol rate/Area] 81 >=60 mL/min/1.73 m2 [facility] Glucose [Mass/Vol] 123 mg/dL High 65 - 99 mg/dL [facility] HCO3 [Moles/Vol] 25 mmol/L 21 - 32 mmol/L [facility] Interpretation and review of laboratory results Abnormal [facility] Potassium [Moles/Vol] 3.8 mmol/L 3.5 - 5.1 mmol/L [facility] Sodium [Moles/Vol] 134 mmol/L Low 135 - 145 mmol/L [facility] Urea nitrogen [Mass/Vol] 18 mg/dL 8 - 25 mg/dL [facility] Urea nitrogen/Creatinine [Mass ratio] 17.6 mg/mg [facility] CBCon 07-28-2020 Erythrocyte distribution width (RBC) [Entitic vol] 12.0 % 11.6 - 14.8 % [facility] Hematocrit (Bld) [Volume fraction] 32.0 % Low 41 - 53 % [facility] Hemoglobin (Bld) [Mass/Vol] 10.4 g/dL Low 13.5 - 17.5 g/dL [facility] Interpretation and review of laboratory results Abnormal [facility] MCH (RBC) [Entitic mass] 29.5 pg 26 - 34 pg [facility] MCHC (RBC) [Mass/Vol] 32.5 g/dL 31 - 37 g/dL [facility] MCV (RBC) [Entitic vol] 90.7 fL 80 - 100 fL [facility] Nucleated RBC (Bld) [#/Vol] 0.00 10*3/uL [facility] Nucleated RBC/100 WBC (Bld) [Ratio] 0.0 % [facility] Platelet mean volume (Bld) [Entitic vol] 9.4 fL 9.4 - 12.4 fL [facility] Platelets (Bld) [#/Vol] 302 10*3/uL [facility] RBC (Bld) [#/Vol] 3.53 10*6/uL Low [facility] WBC (Bld) [#/Vol] 7.26 10*3/uL [facility]LEADon 07-28-2020 Atrial Rate 67 BPM [facility] P [place] 44 degrees [facility] P-R Interval 126 ms [facility] Q-T Interval 446 ms [facility] QRS Duration 128 ms [facility] QTC Calculation (Bezet) 471 ms [facility] R [place] -55 degrees [facility] T [place] 5 degrees [facility] Urea nitrogen [Mass/Vol] Normal sinus rhythm Right bundle branch block Left anterior fascicular block Bifascicular block Minimal voltage criteria for LVH, may be normal variant Abnormal ECG When compared with ECG of 02-AUG-2016 08:13, No significant change was found Confirmed by AARON GUERRA MD ([id number]) on 07/28/2020 10:50:37 AM [facility] Ventricular Rate 67 BPM [facility] POC Glucoseon 07-28-2020 Glucose [Mass/Vol] 235 mg/dL High 65 - 99 mg/dL [facility] Interpretation and review of laboratory results Abnormal [facility] Glucose [Mass/Vol] 173 mg/dL High 65 - 99 mg/dL [facility] Interpretation and review of laboratory results Abnormal [facility] Glucose [Mass/Vol] 149 mg/dL High 65 - 99 mg/dL [facility] Interpretation and review of laboratory results Abnormal [facility] Glucose [Mass/Vol] 103 mg/dL High 65 - 99 mg/dL [facility] Interpretation and review of laboratory results Abnormal [facility] Vancomycin Level, Troughon 0 07-28-2020 Interpretation and review of laboratory results Normal [facility] Vancomycin trough [Mass/Vol] 16.5 ug/mL [facility] CBCon 07-27-2020 Erythrocyte distribution width (RBC) [Entitic vol] 12.0 % 11.6 - 14.8 % [facility] Hematocrit (Bld) [Volume fraction] 30.8 % Low 41 - 53 % [facility] Hemoglobin (Bld) [Mass/Vol] 10.3 g/dL Low 13.5 - 17.5 g/dL [facility] Interpretation and review of laboratory results Abnormal [facility] MCH (RBC) [Entitic mass] 29.9 pg 26 - 34 pg [facility] MCHC (RBC) [Mass/Vol] 33.4 g/dL 31 - 37 g/dL [facility] MCV (RBC) [Entitic vol] 89.5 fL 80 - 100 fL [facility] Nucleated RBC (Bld) [#/Vol] 0.00 10*3/uL [facility] Nucleated RBC/100 WBC (Bld) [Ratio] 0.0 % [facility] Platelet mean volume (Bld) [Entitic vol] 9.3 fL Low 9.4 - 12.4 fL [facility] Platelets (Bld) [#/Vol] 290 10*3/uL [facility] RBC (Bld) [#/Vol] 3.44 10*6/uL Low [facility] WBC (Bld) [#/Vol] 8.46 10*3/uL [facility] Comprehensive Metabolic Pane jerzy 07-27-2020 Albumin [Mass/Vol] 3.0 g/dL Low 3.2 - 5.2 g/dL [facility] ALP [Catalytic activity/Vol] 64 U/L 40 - 150 U/L [facility] ALT [Catalytic activity/Vol] 7 U/L 0 - 40 U/L [facility] Anion gap [Moles/Vol] 16 mmol/L 10 - 2 0 mmol/L [facility] AST [Catalytic activity/Vol] 11 U/L 0 - 45 U/L [facility] Bilirubin [Mass/Vol] 0.5 mg/dL 0 - 1.3 mg/dL [facility] Calcium [Mass/Vol] 8.9 mg/dL 8.4 - 10. 2 mg/dL [facility] Chloride [Moles/Vol] 101 mmol/L 98 - 10 8 mmol/L [facility] Creatinine [Mass/Vol] 0.83 mg/dL 0.50 - 1.30 [facility] GFR/1.73 sq M predicted among non-blacks MDRD (S/P/Bld) [Vol rate/Area] The eGFR should be used for monitoring renal function only and not for medication dosing. [facility] GFR/1.73 sq M.predicted CKD-EPI (S/P/Bld) [Vol rate/Area] 97 >=60 mL/min/1.73 m2 [facility] Glucose [Mass/Vol] 167 mg/dL High 65 - 99 mg/dL [facility] HCO3 [Moles/Vol] 24 mmol/L 21 - 32 mmol/L [facility] Interpretation and review of laboratory results Abnormal [facility] Potassium [Moles/Vol] 3.7 mmol/L 3.5 - 5.1 mmol/L [facility] Protein [Mass/Vol] 6.6 g/dL 6 - 8 g/dL [facility] Sodium [Moles/Vol] 137 mmol/L 135 - 145 mmol/L [facility] Urea nitrogen [Mass/Vol] 14 mg/dL 8 - 25 mg/dL [facility] Urea nitrogen/Creatinine [Mass ratio] 16.9 mg/mg [facility] Hemoglobin A1con 07-27-2020 Average glucose Estimated from glycated hemoglobin mass conc (Bld) 341 mg/dL High 74 - 114 mg/dL [facility] HbA1c (Bld) [Mass fraction] 13.5 % High 4.2 - 5.6 % [facility] Magnesium 07-27-2020 Interpretation and review of laboratory results Normal [facility] Magnesium [Mass/Vol] 1.9 mg/dL 1.6 - 2 .4 mg/dL [facility] Otheron 07-27-2020 Interface, Rad In David Lariosq - 07/27/2020 8:21 AM EDT EXAMINATION: MRI OF THE LEFT FOOT WITHOUT CONTRAST; MRI OF THE LEFT HINDFOOT WITHOUT CONTRAST 07/26/2020 TECHNIQUE: Multiplanar multisequence MRI of the left foot was performed without the administration of intravenous contrast.; Multiplanar multisequence MRI of the left hindfoot was performed without the administration of intravenous contrast. COMPARISON: Radiographs dated 07/26/2020. HISTORY: ORDERING SYSTEM PROVIDED HISTORY: eval osteomyelitis; TECHNOLOGIST PROVIDED HISTORY: Illness/Other Acuity: Unknown Reason for Exam: eval osteomyelitis Type of Encounter: Unknown Additional signs and symptoms: eval osteomyelitis ORDERING SYSTEM PROVIDED DIAGNOSIS CODES: S91.302A Open wound of left foot, initial encounter FINDINGS: Left foot: The Lisfranc ligament is intact. Midfoot alignment is within normal limits. There is no evidence of acute fracture or dislocation. A soft tissue ulcer is noted about the dorsal aspect of the foot at the level of the 1st metatarsal base and proximal shaft. This ulcer measures 2.2 cm in transverse dimension, 1.4 cm in AP dimension and 0.8 cm in depth. The defect approximates the tendon sheath of the extensor hallucis longus. There is edema within subcutaneous tissues. What appears to be packing material is present. There is slightly decreased T1 marrow signal within the adjacent metatarsal base and proximal shaft. No additional suspicious marrow signal abnormality is identified. Dorsal subcutaneous edema is noted diffusely. There is skin thickening adjacent to the ulcer site. There is a small amount of fluid within the extensor hallucis tendon sheath. Intrinsic foot musculature edema is noted. There is a plantar ulceration at the level of the 2nd MTP joint. This measures approximately 9 mm in AP dimension. There is a minimal amount of subcutaneous edema. A fluid collection is not identified. There is no underlying marrow changes. The flexor tendon is intact. Subcutaneous edema is noted about the 1st, 2nd and 3rd toes. Hallux sesamoids are located intact. The MTP joints are intact. Left heel: The Achilles tendon is mildly thickened. There is increased T2 signal within the distal Achilles tendon. Achilles insertional enthesophyte formation is noted. There is a small plantar calcaneal heel spur. There is minimal edema within the calcaneus bordering the sinus tarsi. Subcutaneous edema noted diffusely. There is no talar dome osteochondral lesion. There is longitudinal split tearing of the peroneus brevis tendon. There is a small amount of fluid in the peroneal tendon sheath. There is no evidence of acute ligamentous injury. IMPRESSION: 1. Kehyucxj-wk-knowd dorsal ulcer at the level the left 1st metatarsal base and shaft. Adjacent skin thickening and subcutaneous edema, likely cellulitis. No abscess. Suspected early osteomyelitis of the 1st metatarsal base and proximal shaft. 2. Small plantar ulceration at the 2nd MTP joint. No abscess or osteomyelitis. 3. No evidence of osteomyelitis at the heel. [facility]/[employer] Workstation ID: [id number] [facility] EXAMINATION: MRI OF THE LEFT FOOT WITHOUT CONTRAST; MRI OF THE LEFT HINDFOOT WITHOUT CONTRAST 07/26/2020 TECHNIQUE: Multiplanar multisequence MRI of the left foot was performed without the administration of intravenous contrast.; Multiplanar multisequence MRI of the left hindfoot was performed without the administration of intravenous contrast. COMPARISON: Radiographs dated 07/26/2020. HISTORY: ORDERING SYSTEM PROVIDED HISTORY: eval osteomyelitis; TECHNOLOGIST PROVIDED HISTORY: Illness/Other Acuity: Unknown Reason for Exam: eval osteomyelitis Type of Encounter: Unknown Additional signs and symptoms: eval osteomyelitis ORDERING SYSTEM PROVIDED DIAGNOSIS CODES: S91.302A Open wound of left foot, initial encounter FINDINGS: Left foot: The Lisfranc ligament is intact. Midfoot alignment is within normal limits. There is no evidence of acute fracture or dislocation. A soft tissue ulcer is noted about the dorsal aspect of the foot at the level of the 1st metatarsal base and proximal shaft. This ulcer measures 2.2 cm in transverse dimension, 1.4 cm in AP dimension and 0.8 cm in depth. The defect approximates the tendon sheath of the extensor hallucis longus. There is edema within subcutaneous tissues. What appears to be packing material is present. There is slightly decreased T1 marrow signal within the adjacent metatarsal base and proximal shaft. No additional suspicious marrow signal abnormality is identified. Dorsal subcutaneous edema is noted diffusely. There is skin thickening adjacent to the ulcer site. There is a small amount of fluid within the extensor hallucis tendon sheath. Intrinsic foot musculature edema is noted. There is a plantar ulceration at the level of the 2nd MTP joint. This measures approximately 9 mm in AP dimension. There is a minimal amount of subcutaneous edema. A fluid collection is not identified. There is no underlying marrow changes. The flexor tendon is intact. Subcutaneous edema is noted about the 1st, 2nd and 3rd toes. Hallux sesamoids are located intact. The MTP joints are intact. Left heel: The Achilles tendon is mildly thickened. There is increased T2 signal within the distal Achilles tendon. Achilles insertional enthesophyte formation is noted. There is a small plantar calcaneal heel spur. There is minimal edema within the calcaneus bordering the sinus tarsi. Subcutaneous edema noted diffusely. There is no talar dome osteochondral lesion. There is longitudinal split tearing of the peroneus brevis tendon. There is a small amount of fluid in the peroneal tendon sheath. There is no evidence of acute ligamentous injury. [facility] 1. [id number] dorsal ulcer at the level the left 1st metatarsal base and shaft. Adjacent skin thickening and subcutaneous edema, likely cellulitis. No abscess. Suspected early osteomyelitis of the 1st metatarsal base and proximal shaft. 2. Small plantar ulceration at the 2nd MTP joint. No abscess or osteomyelitis. 3. No evidence of osteomyelitis at the heel. [facility] Workstation ID: [id number] [facility] Interpretation and review of laboratory results Abnormal [facility] POC Glucoseon 07-27-2020 Glucose [Mass/Vol] 208 mg/dL High 65 - 99 mg/dL [facility] Interpretation and review of laboratory results Abnormal [facility] Glucose [Mass/Vol] 209 mg/dL High 65 - 99 mg/dL [facility] Interpretation and review of laboratory results Abnormal [facility] Glucose [Mass/Vol] 164 mg/dL High 65 - 99 mg/dL [facility] Interpretation and review of laboratory results Abnormal [facility] Glucose [Mass/Vol] 162 mg/dL High 65 - 99 mg/dL [facility] Interpretation and review of laboratory results Abnormal [facility] PT/INRon 07-27-2020 INR Coag (PPP) [Relative time] 1.2 {INR} High [facility] PT Coag (PPP) [Time] 14.5 s High [facility] During the induction phase of oral anticoagulation, the INR may not reflect the anticoagulation status of the patient. Therapeutic ranges for INR's are: Most clinical situations: INR 2.0-3.0 Mechanical Prosthetic Valve: INR 2.5-3.5 Critical: INR >5.0 [facility] Tech Limits: Interpretation: Right: The right ankle brachial index is 1.22. The right great toe brachial index is 0.93. Triphasic Doppler waveforms of the right lower extremity. Pulsatile PPG waveforms in the right great toe. Left: The left ankle brachial index is 1.27. The left great toe brachial index is 0.55. Biphasic Doppler waveforms of the left posterior tibial artery. Pulsatile PPG waveforms in the left great toe. Impression: Right: This exam reveals normal perfusion of the right lower extremity. Normal toe brachial index of the right lower extremity. Left: This exam reveals normal perfusion of the left lower extremity. Mildly decreased left toe brachial index. Comparison: Comments: Thank you for referring to the [facility]. [facility] Interface, Rad In LETSGROOPpacs - 07/27/2020 10:39 AM EDT Tech Limits: Interpretation: Right: The right ankle brachial index is 1.22. The right great toe brachial index is 0.93. Triphasic Doppler waveforms of the right lower extremity. Pulsatile PPG waveforms in the right great toe. Left: The left ankle brachial index is 1.27. The left great toe brachial index is 0.55. Biphasic Doppler waveforms of the left posterior tibial artery. Pulsatile PPG waveforms in the left great toe. Impression: Right: This exam reveals normal perfusion of the right lower extremity. Normal toe brachial index of the right lower extremity. Left: This exam reveals normal perfusion of the left lower extremity. Mildly decreased left toe brachial index. Comparison: Comments: Thank you for referring to the [facility]. [facility] Ultrasound duplex arterial l eg lefton 07-27-2020 Interface, Rad In [facility] X[facility] Echopacs - 07/27/2020 10:39 AM EDT Tech Limits: Interpretation: Right: The right ankle brachial index is 1.22. Left: No evidence of significant velocity increases of the left lower extremity. Biphasic Doppler waveforms of the left proximal popliteal,mid popliteal, distal popliteal, proximal peroneal,mid peroneal and distal peroneal arteries. The left ankle brachial index is 1.27. Impression: Right: Left: No evidence of hemodynamically significant stenosis visualized in the left lower extremity. Comparison: Comments: [facility] Limits: Interpretation: Right: The right ankle brachial index is 1.22. Left: No evidence of significant velocity increases of the left lower extremity. Biphasic Doppler waveforms of the left proximal popliteal,mid popliteal, distal popliteal, proximal peroneal,mid peroneal and distal peroneal arteries. The left ankle brachial index is 1.27. Impression: Right: Left: No evidence of hemodynamically significant stenosis visualized in the left lower extremity. Comparison: Comments: [facility] 07-26-2020 Anion gap [Moles/Vol] 14 mmol/L 10 - 2 0 mmol/L [facility] Calcium [Mass/Vol] 9.0 mg/dL 8.4 - 10. 2 mg/dL [facility] Chloride [Moles/Vol] 97 mmol/L Low 98 - 10 8 mmol/L [facility] Creatinine [Mass/Vol] 0.79 mg/dL 0.50 - 1.30 [facility] GFR/1.73 sq M predicted among non-blacks MDRD (S/P/Bld) [Vol rate/Area] The eGFR should be used for monitoring renal function only and not for medication dosing. [facility] GFR/1.73 sq M.predicted CKD-EPI (S/P/Bld) [Vol rate/Area] 99 >=60 mL/min/1.73 m2 [facility] Glucose [Mass/Vol] 339 mg/dL High 65 - 99 mg/dL [facility] HCO3 [Moles/Vol] 24 mmol/L 21 - 32 mmol/L [facility] Potassium [Moles/Vol] 3.8 mmol/L 3.5 - 5.1 mmol/L [facility] Sodium [Moles/Vol] 131 mmol/L Low 135 - 145 mmol/L [facility] Urea nitrogen [Mass/Vol] 21 mg/dL 8 - 25 mg/dL [facility] Urea nitrogen/Creatinine [Mass ratio] 26.6 mg/mg High [facility] CBC WITH AUTO DIFFERENTIALon 07-26-2020 Basophils (Bld) [#/Vol] 0.02 10*3/uL [facility] Basophils/100 WBC (Bld) 0.2 % [facility] Eosinophils (Bld) [#/Vol] 0.17 10*3/uL [facility] Eosinophils/100 WBC (Bld) 2.0 % [facility] Erythrocyte distribution width (RBC) [Entitic vol] 11.6 % 11.6 - 14.8 % [facility] Hematocrit (Bld) [Volume fraction] 31.5 % Low 41 - 53 % [facility] Hemoglobin (Bld) [Mass/Vol] 10.9 g/dL Low 13.5 - 17.5 g/dL [facility] Immature granulocytes (Bld) [#/Vol] 0.03 10*3/uL [facility] Immature granulocytes/100 WBC (Bld) 0.40 % [facility] Comment on above: The IG parameter is the percentage of metamyelocytes, myelocytes and promyelocytes. An immature granulocyte count (IG) of 1% or more suggests the possibility of infection, an IG count of 3% is very likely related to an infection. Interpretation and review of laboratory results Abnormal [facility] Lymphocytes (Bld) [#/Vol] 1.86 10*3/uL [facility] Lymphocytes/100 WBC (Bld) 22.2 % [facility] MCH (RBC) [Entitic mass] 30.0 pg 26 - 34 pg [facility] MCHC (RBC) [Mass/Vol] 34.6 g/dL 31 - 37 g/dL [facility] MCV (RBC) [Entitic vol] 86.8 fL 80 - 100 fL [facility] Monocytes (Bld) [#/Vol] 0.94 10*3/uL High [facility] Monocytes/100 WBC (Bld) 11.2 % [facility] Neutrophils (Bld) [#/Vol] 5.37 10*3/uL [facility] Neutrophils/100 WBC (Bld) 64.0 % [facility] Nucleated RBC (Bld) [#/Vol] 0.00 10*3/uL [facility] Nucleated RBC/100 WBC (Bld) [Ratio] 0.0 % [facility] Platelet mean volume (Bld) [Entitic vol] 9.5 fL 9.4 - 12.4 fL [facility] Platelets (Bld) [#/Vol] 286 10*3/uL [facility] RBC (Bld) [#/Vol] 3.63 10*6/uL Low [facility]ld[facility] [#/Vol] 8.39 10*3/uL [facility] eah COVID-19, Molecularon 2019 Interpretation and review of laboratory results Normal [facility] SARS-CoV-2 Not Detected Not Detected [facility] Comment on above: This test was perfor med under the FDA's Emergency Use Authorization (EUA). Testing was performed using the [employer] ID NOW COVID-19 assay on the ID NOW platform. This test has not been approved for use in asymptomatic patients and its performance in this patient population has not been evaluated. Negative results do not rule out the presence of SARS-CoV-2/COVID-19. Fact sheets for the EUA can be found at the following links: For Healthcare Providers: https://www.fda.gov/media/474575/download For Patients: https://www.fda.gov/media/150793/download CRP, Inflammationon 07-26-20 20 CRP [Mass/Vol] 41.3 mg/L [facility] 0 - 10 [facility] 2019 Interpretation and review of laboratory results Normal [facility] Lactate [Moles/Vol] 0.9 mmol/L 0.6 - 2 mmol/L [facility] Otheron 07-26-2020 Interpretation and review of laboratory results Abnormal [facility] POC Glucoseon 07-26-2020 Glucose [Mass/Vol] 196 mg/dL High 65 - 99 mg/dL [facility] Interpretation and review of laboratory results Abnormal [facility] Glucose [Mass/Vol] 286 mg/dL High 65 - 99 mg/dL [facility] Interpretation and review of laboratory results Abnormal [facility] Glucose [Mass/Vol] 285 mg/dL High 65 - 99 mg/dL [facility] Interpretation and review of laboratory results Abnormal [facility] Sedimentation Rateon 020 ESR (Bld) [Velocity] 103 mm/h High [facility] Interpretation and review of laboratory results Abnormal [facility] XR FOOT LEFT 3+ VIEWS (STAND LYDIA)on 07-26-2020 Interface, Rad In Fu ji Speechq - 07/26/2020 5:18 AM EDT EXAMINATION: THREE XRAY VIEWS OF THE LEFT FOOT 07/26/2020 4:59 am COMPARISON: None. HISTORY: ORDERING SYSTEM PROVIDED HISTORY: severe infection, h/o DM; TECHNOLOGIST PROVIDED HISTORY: Illness/Other Acuity: Acute Reason for Exam: severe infection Cancer History: unk Surgery, Radiation History: unk Type of Encounter: Initial Additional signs and symptoms: severe infection FINDINGS: There is forefoot soft tissue swelling. No acute fracture or dislocation. Question plantar soft tissue ulceration. Tarsometatarsal joints are grossly well aligned. No joint effusion. IMPRESSION: 1. No acute bony abnormality of the foot or evidence of acute osteomyelitis. 2. Forefoot soft tissue swelling. Possible plantar soft tissue ulceration. Workstation ID: [id number] [email or web address] EXAMINATION: THREE X RAY VIEWS OF THE LEFT FOOT 07/26/2020 4:59 am COMPARISON: None. HISTORY: ORDERING SYSTEM PROVIDED HISTORY: severe infection, h/o DM; TECHNOLOGIST PROVIDED HISTORY: Illness/Other Acuity: Acute Reason for Exam: severe infection Cancer History: unk Surgery, Radiation History: unk Type of Encounter: Initial Additional signs and symptoms: severe infection FINDINGS: There is forefoot soft tissue swelling. No acute fracture or dislocation. Question plantar soft tissue ulceration. Tarsometatarsal joints are grossly well aligned. No joint effusion. [facility] 1. No acute bony abnormality of the foot or evidence of acute osteomyelitis. 2. Forefoot soft tissue swelling. Possible plantar soft tissue ulceration. Workstation ID: [id number] [facility] Vital Signs Date Time Vital Sign Value Performing Clinician Mirna garcia 12-13-2023 09:30-0500 Blood Pressure Location [facility] 12-13-2023 09:30-0500 Diastolic blood pressure 77 mm[Hg] [facility] 12-13-2023 09:30-0500 Heart rate 80 /min [facility] 12-13-2023 09:30-0500 SaO2% (BldA) [Mass fraction] 99 % [facility] 12-13-2023 09:30-0500 Systolic blood pressure 134 mm[Hg] Tanya Rubin [facility] 11-12-2023 10:31-0500 Diastolic blood pressure 42 mm[Hg] Jayme De MD Work Phone: [facility] 11-12-2023 10:31-0500 Heart rate 70 /min Jayme Marquis Work Phone: [facility] 11-12-2023 10:31-0500 Systolic blood pressure 98 mm[Hg] Jayme De MD Work Phone: [facility] 10-11-2023 10:00-0500 Hourly Rounding mad [facility] 10-11-2023 10:00-0500 [facility] 10-11-2023 09:42-0500 Hourly Rounding Ahmad [facility] 10-11-2023 09:42-0500 Promise to Return Ahmad [facility] 10-11-2023 08:45-0500 Hourly Rounding mad [facility] 10-11-2023 08:45-0500 Promise to Return mad [facility] 10-11-2023 08:12-0500 gluc 155 mg/dL mad [facility] 10-11-2023 08:09-0500 Diastolic blood pressure 69 mm[Hg[facility]-11-[facility] 08:09-0500 Heart rate 63 /min mad [facility] 10-11-2023 08:09-0500 Systolic blood pressure 152 mm[Hg] mad [facility] 10-11-2023 07:52-0500 Heart rate 59 /[facility] 10-11-2023 07:52-0500 SaO2% (BldA) [Mass fraction] 97 % [facility] 10-11-2023 07:51-0500 Diastolic blood pressure 69 mm[Hg] [facility] 10-11-2023 07:51-0500 Mean blood pressure 96 mm[Hg] Fortinoveronica [facility] 10-11-2023 07:51-0500 Systolic blood pressure 152 mm[Hg] Miguel [facility] 10-11-2023 00:30-0500 [facility] 10-11-2023 00:30-0500 Body temperature 97.88 [degF] [facility] 10-11-2023 00:30-0500 Diastolic blood pressure 63 mm[Hg] bladeveronica [facility] 10-11-2023 00:30-0500 Heart rate 72 /min [facility] 10-11-2023 00:30-0500 Respiratory rate 16 /min [facility] 10-11-2023 00:30-0500 SaO2% (BldA) [Mass fraction] 97 % [facility] 10-11-2023 00:30-0500 Systolic blood pressure 125 mm[Hg] bladeveronica [facility] 10-10-2023 21:47-0500 Heart rate 69 /min [facility] 10-10-2023 21:00-0500 Body temperature 98.24 [degF] weston [facility] 10-10-2023 21:00-0500 SaO2% (BldA) [Mass fraction] 95 % [facility] 10-10-2023 17:39-0500 gluc 201 mg/dL [facility] 10-10-2023 17:07-0500 Heart rate 66 /min [facility] 10-10-2023 17:06-0500 Mean blood pressure 73 mm[Hg] [facility] 10-10-2023 12:10-0500 gluc 136 mg/dL [facility] 10-10-2023 11:56-0500 Respiratory rate 18 /min [facility] 10-10-2023 11:55-0500 Mean blood pressure 78 mm[Hg] Miguel [facility]bl[facility] 10-10-2023 11:55-0500 Body temperature 97.7 [degF] [facility] 10-10-2023 08:16-0500 Body temperature 96.98 [degF] [facility] 10-10-2023 08:16-0500 Heart rate 69 /min [facility] 10-10-2023 01:01-0500 Blood Pressure [facility] 10-10-2023 01:01-0500 Mean blood pressure 87 mm[Hg] Miguel [facility] 10-09-2023 19:00-0500 Mean blood pressure 89 mm[Hg] Miguel [facility]bladed [facility] 10-09-2023 06:34-0500 Mean blood pressure 107 mm[Hg] Miguel [facility]bladed [facility] 10-08-2023 16:00-0500 Heart rate 66 /min [facility] 10-07-2023 16:03-0500 Body temperature 98.42 [degF] [facility] 10-07-2023 11:36-0500 Body temperature 97.88 [degF] [facility] 10-05-2023 18:30-0500 Heart rate 97 /min [facility] 10-05-2023 16:57-0500 Respiratory rate 20 /min [facility] 10-05-2023 16:23-0500 Respiratory rate 16 /min [facility] 10-05-2023 15:43-0500 Respiratory rate 16 /min [facility] 10-05-2023 01:34-0500 Heart rate 71 /min [facility] 09-30-2023 13:00-0500 Blood Pressure Location Mhd Al-Marrawi [facility] 09-30-2023 13:00-0500 Body temperature 98.24 [degF] d Al-Marrawi [facility] 09-30-2023 13:00-0500 Diastolic blood pressure 62 mm[Hg] Mhd [facility] 09-30-2023 13:00-0500 Heart rate 59 /min d Al-Marraw[facility] 09-30-2023 13:00-0500 Mean blood pressure 83 mm[Hg] d Al-Marrawi [facility] 09-30-2023 13:00-0500 Respiratory rate 18 /min d Al-Marrawi [facility] 09-30-2023 13:00-0500 SaO2% (BldA) [Mass fraction] 99 % Mhd [facility] 09-30-2023 13:00-0500 Systolic blood pressure 126 mm[Hg] d Al-Marrawi [facility] 04-27-2023 13:00-0400 Hourly Rounding [facility] 04-27-2023 12:00-0400 Hourly Rounding [facility] 04-27-2023 11:06-0400 Blood Pressure Location [facility] 04-27-2023 11:06-0400 Diastolic blood pressure 78 mm[Hg] [facility] 04-27-2023 11:06-0400 Mean blood pressure 101 mm[Hg] [facility] 04-27-2023 11:06-0400 Systolic blood pressure 148 mm[Hg] [facility] 04-27-2023 11:00-0400 Body temperature 98.06 [degF] [facility] 04-27-2023 11:00-0400 gluc 251 mg/dL [facility] 04-27-2023 11:00-0400 Heart rate 75 /min [facility] 04-27-2023 11:00-0400 Hourly Rounding [facility] 04-27-2023 11:00-0400 SaO2% (BldA) [Mass fraction] 93 % [facility] 04-27-2023 10:41-0400 Promise to Return [facility] 04-27-2023 09:29-0400 Promise to Return [facility] 04-27-2023 08:29-0400 Promise to Return [facility] 04-27-2023 07:44-0400 Heart rate 64 /min [facility] 04-27-2023 07:44-0400 SaO2% (BldA) [Mass fraction] 97 % [facility] 04-27-2023 07:41-0400 Diastolic blood pressure 75 mm[Hg] [facility] 04-27-2023 07:41-0400 Mean blood pressure 105 mm[Hg] [facility] 04-27-2023 07:41-0400 Systolic blood pressure 163 mm[Hg] [facility] 04-27-2023 07:41-0400 Body temperature 97.34 [degF] [facility] 04-27-2023 07:00-0400 Respiratory rate 18 /min [facility] 04-27-2023 05:15-0400 Body temperature 97.52 [degF] [facility] 04-27-2023 05:15-0400 Diastolic blood pressure 78 mm[Hg] [facility] 04-27-2023 05:15-0400 Heart rate 60 /min [facility] 04-27-2023 05:15-0400 Mean blood pressure 98 mm[Hg] [facility] 04-27-2023 05:15-0400 SaO2% (BldA) [Mass fraction] 98 % [facility] 04-27-2023 05:15-0400 Systolic blood pressure 138 mm[Hg] [facility] 04-27-2023 00:01-0400 Mean blood pressure 95 mm[Hg] [facility] 04-26-2023 17:50-0400 gluc 238 mg/dL [facility] 04-26-2023 16:47-0400 Mean blood pressure 115 mm[Hg] [facility] 04-26-2023 14:00-0400 Heart rate 60 /min [facility] 04-26-2023 14:00-0400 Respiratory rate 16 /min [facility] 04-26-2023 11:58-0400 Mean blood pressure 101 mm[Hg] [facility] 04-26-2023 11:12-0400 SaO2% (BldA) [Mass fraction] 96.3 % [facility] 04-25-2023 21:33-0400 gluc 155 mg/dL [facility] 04-25-2023 19:00-0400 Respiratory rate 18 /min [facility] 04-25-2023 17:15-0400 Blood Pressure Location [facility] 04-25-2023 17:15-0400 Heart rate 56 /min [facility] 03-04-2023 15:22-0400 Hourly Rounding William BAER [facility] 03-04-2023 15:22-0400 Promise to Return Hasan AMIR [facility] 03-04-2023 14:22-0400 Hourly Rounding Hasan AMIR [facility] 03-04-2023 14:22-0400 Promise to Return Hasan AMIR [facility] 03-04-2023 10:48-0400 Diastolic blood pressure 84 mm[Hg] Hasan AMIR [facility] 03-04-2023 10:48-0400 Heart rate 60 /min Hasan AMIR [facility] 03-04-2023 10:48-0400 Systolic blood pressure 154 mm[Hg] Hasan AMIR [facility] 03-04-2023 10:44-0400 Hourly Rounding Hasan AMIR [facility] 03-04-2023 10:44-0400 Promise to Return Hasan AMIR [facility] 03-04-2023 08:02-0400 SaO2% (BldA) [Mass fraction] 96 % Hasan AMIR [facility] 03-04-2023 00:34-0400 Body temperature 98.06 [degF] Hasan AMIR [facility] 03-04-2023 00:34-0400 Diastolic blood pressure 78 mm[Hg] Hasan AMIR [facility] 03-04-2023 00:34-0400 Heart rate 55 /min Hasan AMIR [facility] 03-04-2023 00:34-0400 Mean blood pressure 104 mm[Hg] Hasan AMIR [facility] 03-04-2023 00:34-0400 SaO2% (BldA) [Mass fraction] 97 % Hasan AMIR [facility] 03-04-2023 00:34-0400 Systolic blood pressure 156 mm[Hg] Hasan AMIR [facility] 03-03-2023 20:35-0400 gluc 210 mg/dL [facility] 03-03-2023 20:00-0400 Body temperature 98.42 [degF] [facility] 03-03-2023 20:00-0400 Diastolic blood pressure 76 mm[Hg] [facility] 03-03-2023 20:00-0400 Heart rate 65 /min [facility] 03-03-2023 20:00-0400 Mean blood pressure 102 mm[Hg] [facility] 03-03-2023 20:00-0400 SaO2% (BldA) [Mass fraction] 96 % [facility] 03-03-2023 20:00-0400 Systolic blood pressure 155 mm[Hg] [facility] 03-03-2023 17:50-0400 Heart rate 62 /min [facility] 03-03-2023 17:50-0400 Respiratory rate 18 /min [facility] 03-03-2023 17:50-0400 Mean blood pressure 99 mm[Hg] [facility] 03-03-2023 17:50-0400 Body temperature 98.06 [degF] [facility] 03-03-2023 12:38-0400 gluc 236 mg/dL [facility] 03-03-2023 11:00-0400 Blood Pressure Location [facility] 03-03-2023 11:00-0400 Mean blood pressure 100 mm[Hg] [facility] 03-03-2023 09:49-0400 Heart rate 67 /min [facility] 03-03-2023 08:02-0400 Mean blood pressure 105 mm[Hg] [facility] 03-03-2023 01:12-0400 Blood Pressure Location [facility] 03-02-2023 21:39-0400 Blood Pressure Location [facility] 03-02-2023 16:58-0400 gluc 179 mg/dL [facility] 03-02-2023 16:19-0400 Mean blood pressure 86 mm[Hg] [facility] 03-02-2023 11:35-0400 Heart rate 70 /min [facility] 03-01-2023 15:57-0400 Heart rate 69 /min [facility] 03-01-2023 14:27-0400 Respiratory rate 20 /min [facility] 03-01-2023 14:00-0400 Respiratory rate 14 /min [facility] 03-01-2023 13:00-0400 Respiratory rate 12 /min [facility] 03-01-2023 11:01-0400 Heart rate 83 /min [facility] 12-12-2022 09:28-0500 Body temperature 96.8 [degF] Dr Yordan Urban MD Mobile Phone: [facility] Work Phone: 12-12-2022 09:28-0500 Body weight [address] Yordan Urban MD Mobile Phone: [facility] [facility] Work Phone: 12-12-2022 09:28-0500 Diastolic blood pressure 69 mm[Hg] Dr Yordan Urban MD Mobile Phone: [facility] [employer] [facility] Work Phone: 12-12-2022 09:28-0500 Heart rate 71 /min Dr Yordan Urban MD Mobile Phone: [facility] [employer] [facility] Work Phone: 12-12-2022 09:28-0500 Respiratory rate 16 /min Dr Yordan Urban MD Mobile Phone: [facility] [facility] Work Phone: 12-12-2022 09:28-0500 Systolic blood pressure 138 mm[Hg] Dr Yordan Urban MD Mobile Phone: [facility] [facility] Work Phone: 09-22-2022 09:06-0500 Diastolic blood pressure 51 mm[Hg] DO PAUL HOWELL Work Phone: [facility] 09-22-2022 09:06-0500 Systolic blood pressure 138 mm[Hg] DO PAUL HOWELL Work Phone: [facility] 09-22-2022 07:58-0500 Heart rate 62 /min DO PAUL HOWELL Work Phone: [facility] 09-22-2022 07:58-0500 Respiratory rate 19 /min DO PAUL HOWELL Work Phone: [facility] 09-22-2022 07:58-0500 SaO2% (BldA) [Mass fraction] 98 % DO PAUL HOWELL Work Phone: [facility] 09-22-2022 05:20-0500 Body height 167.64 cm DO PAUL HOWELL Work Phone: [facility] 09-22-2022 05:20-0500 Body mass index (BMI) [Ratio] 35.5 kg/m2 DO PAUL HOWELL Work Phone: [facility] 09-22-2022 05:20-0500 Body temperature 98.4 [degF] DO PAUL HOWELL Work Phone: [facility] 09-22-2022 05:20-0500 Body weight 99.79 kg DO PAUL HOWELL Work Phone: [facility] 09-14-2022 08:33-0500 SaO2% (BldA) [Mass fraction] 92 % Adalberto Andrade DO Work Phone: [facility] 09-14-2022 07:48-0500 Body temperature 97.81 [degF] Adalberto Andrade DO Work Phone: [facility] 09-14-2022 07:48-0500 Diastolic blood pressure 69 mm[Hg] Adalberto Andrade DO Work Phone: [facility] 09-14-2022 07:48-0500 Heart rate 71 /min Adalberto Andrade DO Work Phone: [facility] 09-14-2022 07:48-0500 Respiratory rate 12 /min Adalberto Andrade DO Work Phone: [facility] 09-14-2022 07:48-0500 Systolic blood pressure 153 mm[Hg] Adalberto Andrade DO Work Phone: [facility] 09-14-2022 04:15-0500 Body mass index (BMI) [Ratio] 37.52 kg/m2 Adalberto Andrade DO Work Phone: [facility] 09-14-2022 04:15-0500 Body weight 111.9 kg Adalberto Andrade DO Work Phone: [facility] 09-10-2022 06:35-0500 Body height 172.7 cm Adalberto Andrade DO Work Phone: [facility] 09-09-2022 09:24-0500 Diastolic blood pressure 52 mm[Hg] DO PAUL HALLMER Work Phone: [facility] 09-09-2022 09:24-0500 Heart rate 77 /min DO PAUL HALLMER Work Phone: [facility] 09-09-2022 09:24-0500 Respiratory rate 18 /min DO PAUL HALLMER Work Phone: [facility] 09-09-2022 09:24-0500 SaO2% (BldA) [Mass fraction] 97 % DO PAUL LYNDA Work Phone: [facility] 09-09-2022 09:24-0500 Systolic blood pressure 148 mm[Hg] DO PAUL LYNDA Work Phone: [facility] 09-09-2022 06:00-0500 Body temperature 97.9 [degF] DO PAUL LYNDA Work Phone: [facility] 09-08-2022 23:57-0400 Body height 172.72 cm DO PAUL LYNDA Work Phone: [facility] 09-08-2022 23:57-0400 Body mass index (BMI) [Ratio] 36 kg/m2 DO PAUL LYNDA Work Phone: [facility] 09-08-2022 23:57-0400 Body weight 107.5 kg DO PAUL HOWELL Work Phone: [facility] 09-08-2022 16:02-0400 Diastolic blood pressure 54 mm[Hg] DO PAUL HOWELL Work Phone: [facility] 09-08-2022 16:02-0400 Heart rate 77 /min DO PAUL HOWELL Work Phone: [facility] 09-08-2022 16:02-0400 Respiratory rate 20 /min DO PAUL HOWELL Work Phone: [facility] 09-08-2022 16:02-0400 SaO2% (BldA) [Mass fraction] 97 % DO PAUL HOWELL Work Phone: [facility] 09-08-2022 16:02-0400 Systolic blood pressure 157 mm[Hg] DO PAUL HOWELL Work Phone: [facility] 09-08-2022 15:06-0400 Body temperature 98 [degF] DO PAUL HOWELL Work Phone: [facility] 09-08-2022 14:58-0400 Body height 172.72 cm DO PAUL HOWELL Work Phone: [facility] 09-08-2022 14:58-0400 Body mass index (BMI) [Ratio] 35.9 kg/m2 DO PAUL HOWELL Work Phone: [facility] 09-08-2022 14:58-0400 Body weight 107.05 kg DO PAUL HOWELL Work Phone: [facility] 06-29-2022 19:21-0400 Body temperature 98.8 [degF] Ant rAredondo DO Work Phone: [facility] 06-29-2022 19:21-0400 Diastolic blood pressure 73 mm[Hg] Ant Arredondo DO Work Phone: [facility] [employer] 06-29-2022 19:21-0400 Heart rate 87 /min Ant Arnulfo DO Work Phone: [facility] [employer] 06-29-2022 19:21-0400 Respiratory rate 20 /min Ant Arnulfo DO Work Phone: [facility] 06-29-2022 19:21-0400 Systolic blood pressure 159 mm[Hg] Ant Arnulfo DO Work Phone: [facility] [employer] 06-29-2022 08:44-0400 SaO2% (BldA) [Mass fraction] 94 % Ant Arnulfo DO Work Phone: [facility] [employer] [facility] 06-29-2022 03:14-0400 Body mass index (BMI) [Ratio] 35.43 kg/m2 Ant Arnulfo DO Work Phone: [facility] [employer] [facility] 06-29-2022 03:14-0400 Body weight 105.7 kg Ant Arnulfo DO Work Phone: [facility] [employer] 05-01-2022 23:08-0400 Body height 172.7 cm Ant Arnulfo DO Work Phone: [facility] [employer] [facility] 04-27-2022 15:09-0400 Diastolic blood pressure 78 mm[Hg] Fatmata Cosby MD Work Phone: [facility] 04-27-2022 15:09-0400 Systolic blood pressure 136 mm[Hg] Fatmata Cosby MD Work Phone: [facility] 04-27-2022 15:06-0400 Body temperature 98.6 [degF] Fatmata Cosby MD Work Phone: [facility] 04-27-2022 15:06-0400 Heart rate 79 /min Fatmata Cosby MD Work Phone: [facility] 04-27-2022 15:06-0400 SaO2% (BldA) [Mass fraction] 99 % Fatmata Cosby MD Work Phone: [facility] 04-09-2022 09:07-0400 Body temperature 98.01 [degF] Ramana Jaramillo DPM Work Phone: [facility] 04-09-2022 09:07-0400 Diastolic blood pressure 59 mm[Hg] Boles Shafiek DPM Work Phone: [facility] 04-09-2022 09:07-0400 Heart rate 71 /min Boles Shafiek DPM Work Phone: [facility] 04-09-2022 09:07-0400 Respiratory rate 16 /min Boles Shafiek DPM Work Phone: [facility] 04-09-2022 09:07-0400 SaO2% (BldA) [Mass fraction] 97 % Boles Shafiek DPM Work Phone: [facility] 04-09-2022 09:07-0400 Systolic blood pressure 114 mm[Hg] Boles Shafiek DPM Work Phone: [facility] 03-19-2022 09:19-0400 Body mass index (BMI) [Ratio] 32.54 kg/m2 Boles Shafiek DPM Work Phone: [facility] 03-19-2022 09:19-0400 Body temperature 97.9 [degF] Boles Shafiek DPM Work Phone: [facility] 03-19-2022 09:19-0400 Body weight 97.07 kg Boles Shafiek DPM Work Phone: [facility] 03-19-2022 09:19-0400 Diastolic blood pressure 77 mm[Hg] Boles Shafiek DPM Work Phone: [facility] 03-19-2022 09:19-0400 Heart rate 76 /min Boles Shafiek DPM Work Phone: [facility] 03-19-2022 09:19-0400 Respiratory rate 18 /min Boles Shafiek DPM Work Phone: [facility] 03-19-2022 09:19-0400 SaO2% (BldA) [Mass fraction] 91 % Boles Shafiek DPM Work Phone: [facility] 03-19-2022 09:19-0400 Systolic blood pressure 126 mm[Hg] Boles Shafiek DPM Work Phone: [facility] 03-02-2022 14:06-0400 Diastolic blood pressure 73 mm[Hg] Fatmata Cosby MD Work Phone: [facility] 03-02-2022 14:06-0400 Systolic blood pressure 130 mm[Hg] Fatmata Cosby MD Work Phone: [facility] 03-02-2022 13:49-0400 Body temperature 97.59 [degF] Fatmata Cosby MD Work Phone: [facility] 03-02-2022 13:49-0400 Heart rate 79 /min Fatmata Cosby MD Work Phone: [facility] 03-02-2022 13:49-0400 SaO2% (BldA) [Mass fraction] 100 % Fatmata Cosby MD Work Phone: [facility] 02-26-2022 09:18-0400 Body temperature 98.29 [degF] Boles Shafiek DPM Work Phone: [facility] 02-26-2022 09:18-0400 Diastolic blood pressure 80 mm[Hg] Boles Shafiek DPM Work Phone: [facility] 02-26-2022 09:18-0400 Heart rate 76 /min Boles Shafiek DPM Work Phone: [facility] 02-26-2022 09:18-0400 Respiratory rate 18 /min Boles Shafiek DPM Work Phone: [facility] 02-26-2022 09:18-0400 Systolic blood pressure 148 mm[Hg] Boles Shafiek DPM Work Phone: [facility] 02-21-2022 13:22-0400 Body height 172.7 cm Lamin Stringer MD Work Phone: [facility] 02-21-2022 13:22-0400 Body mass index (BMI) [Ratio] 29.19 kg/m2 Lamin Stringer MD Work Phone: [facility] 02-21-2022 13:22-0400 Body weight 87.09 kg Lamin Stringer MD Work Phone: [facility] 02-21-2022 13:22-0400 Diastolic blood pressure 60 mm[Hg] Lamin Stringer MD Work Phone: [facility] 02-21-2022 13:22-0400 Heart rate 78 /min Lamin Stringer MD Work Phone: [facility] 02-21-2022 13:22-0400 SaO2% (BldA) [Mass fraction] 98 % Lamin Stringer MD Work Phone: [facility] 02-21-2022 13:22-0400 Systolic blood pressure 141 mm[Hg] Lamin Stringer MD Work Phone: [facility] 02-12-2022 10:22-0400 Body temperature 97.7 [degF] Boles Shafiek DPM Work Phone: [facility] 02-12-2022 10:22-0400 Diastolic blood pressure 77 mm[Hg] Boles Shafiek DPM Work Phone: [facility] 02-12-2022 10:22-0400 Heart rate 65 /min Boles Shafiek DPM Work Phone: [facility] 02-12-2022 10:22-0400 Respiratory rate 17 /min Boles Shafiek DPM Work Phone: [facility] 02-12-2022 10:22-0400 SaO2% (BldA) [Mass fraction] 100 % Boles Shafiek DPM Work Phone: [facility] 02-12-2022 10:22-0400 Systolic blood pressure 123 mm[Hg] Boles Shafiek DPM Work Phone: [facility] 01-29-2022 10:48-0400 Body height 172.7 cm Boles Shafiek DPM Work Phone: [facility] 01-29-2022 10:48-0400 Body mass index (BMI) [Ratio] 29.65 kg/m2 Boles Shafiek DPM Work Phone: [facility] 01-29-2022 10:48-0400 Body weight 88.45 kg Boles Shafiek DPM Work Phone: [facility] 01-29-2022 10:24-0400 Body temperature 97.81 [degF] Boles Shafiek DPM Work Phone: [facility] 01-29-2022 10:24-0400 Diastolic blood pressure 66 mm[Hg] Boles Shafiek DPM Work Phone: [facility] 01-29-2022 10:24-0400 Heart rate 78 /min Boles Shafiek DPM Work Phone: [facility] 01-29-2022 10:24-0400 Respiratory rate 18 /min Boles Shafiek DPM Work Phone: [facility] 01-29-2022 10:24-0400 Systolic blood pressure 129 mm[Hg] Boles Shafiek DPM Work Phone: [facility] 01-18-2022 21:00-0400 Body temperature 98.29 [degF] Magdalena Marquis Work Phone: [facility] 01-18-2022 21:00-0400 Diastolic blood pressure 83 mm[Hg] Magdalena Mccullough MD Work Phone: [facility] 01-18-2022 21:00-0400 Heart rate 91 /min Magdalena Marquis Work Phone: [facility] 01-18-2022 21:00-0400 Respiratory rate 20 /min Magdalena Marquis Work Phone: [facility] 01-18-2022 21:00-0400 SaO2% (BldA) [Mass fraction] 100 % Magdalena Mccullough MD Work Phone: [facility] 01-18-2022 21:00-0400 Systolic blood pressure 133 mm[Hg] Magdalena Mccullough MD Work Phone: [facility] 01-18-2022 20:58-0400 Body height 172.7 cm Magdalena Marquis Work Phone: [facility] 01-18-2022 20:58-0400 Body mass index (BMI) [Ratio] 27.37 kg/m2 Magdalena Mccullough MD Work Phone: [facility] 01-18-2022 20:58-0400 Body weight 81.65 kg Magdalena Marquis Work Phone: [facility] 01-17-2022 07:56-0400 Body temperature 97.81 [degF] Garth Torrez MD Work Phone: [facility] 01-17-2022 07:56-0400 Diastolic blood pressure 69 mm[Hg] aGrth Torrez MD Work Phone: [facility] 01-17-2022 07:56-0400 Heart rate 66 /min Garth Torrez MD Work Phone: [facility] 01-17-2022 07:56-0400 Respiratory rate 15 /min Garth Torrez MD Work Phone: [facility] 01-17-2022 07:56-0400 SaO2% (BldA) [Mass fraction] 97 % Garth Torrez MD Work Phone: [facility] 01-17-2022 07:56-0400 Systolic blood pressure 130 mm[Hg] Garth Torrez MD Work Phone: [facility] 01-09-2022 17:38-0500 Body height 172.7 cm Garth Torrez MD Work Phone: [facility] 01-09-2022 17:38-0500 Body mass index (BMI) [Ratio] 27.37 kg/m2 Garth Torrez MD Work Phone: [facility] 01-09-2022 17:38-0500 Body weight 81.65 kg Garth Torrez MD Work Phone: [facility] 10-15-2021 13:26-0500 Diastolic blood pressure 78 mm[Hg] Magdalena Stoyak DO Work Phone: [facility] [employer] 10-15-2021 13:26-0500 Heart rate 78 /min Magdalena Stoyak DO Work Phone: [facility] [employer] 10-15-2021 13:26-0500 Respiratory rate 18 /min Magdalena Stoyak DO Work Phone: [facility] [employer] 10-15-2021 13:26-0500 SaO2% (BldA) [Mass fraction] 96 % Magdalena Stoyak DO Work Phone: [facility] [employer] 10-15-2021 13:26-0500 Systolic blood pressure 138 mm[Hg] Magdalena Stoyak DO Work Phone: [facility] [employer] 10-15-2021 09:44-0500 Body height 172.7 cm Magdalena Stoyak DO Work Phone: [facility] [employer] 10-15-2021 09:44-0500 Body mass index (BMI) [Ratio] 26.91 kg/m2 Magdalena Stoyak DO Work Phone: [facility] [employer] 10-15-2021 09:44-0500 Body temperature 97.9 [degF] Magdalena Stoyak DO Work Phone: [facility] [employer] 10-15-2021 09:44-0500 Body weight 80.29 kg Magdalnea Stoyak DO Work Phone: [facility] [employer] 07-25-2021 09:45-0400 Body temperature 97.3 [degF] Paul Gaona DO Work Phone: [facility] 07-25-2021 09:45-0400 Diastolic blood pressure 84 mm[Hg] Paul Gaona DO Work Phone: [facility] [employer] 07-25-2021 09:45-0400 Heart rate 83 /min Paul Gaona DO Work Phone: [facility] [employer] 07-25-2021 09:45-0400 Respiratory rate 14 /min Paul Gaona DO Work Phone: [facility] [employer] 07-25-2021 09:45-0400 SaO2% (BldA) [Mass fraction] 98 % Paul Gaona DO Work Phone: [facility] 07-25-2021 09:45-0400 Systolic blood pressure 132 mm[Hg] Paul Gaona DO Work Phone: [facility] [employer] 06-12-2021 10:14-0400 Body temperature 98.01 [degF] Paul Gaona DO Work Phone: [facility] [employer] 06-12-2021 10:14-0400 Diastolic blood pressure 70 mm[Hg] Paul Gaona DO Work Phone: [facility] 06-12-2021 10:14-0400 Heart rate 77 /min Paul Gaona DO Work Phone: [facility] 06-12-2021 10:14-0400 Respiratory rate 14 /min Paul Gaona DO Work Phone: [facility] 06-12-2021 10:14-0400 SaO2% (BldA) [Mass fraction] 98 % Paul Gaona DO Work Phone: [facility] 06-12-2021 10:14-0400 Systolic blood pressure 122 mm[Hg] Paul Mazin DO Work Phone: [facility] 01-11-2021 11:09-0500 Body temperature 98.29 [degF] Yanick Umanzor MD Work Phone: [facility] [employer] 01-11-2021 11:09-0500 Body weight 81.65 kg Yanick Umanzor MD Work Phone: [facility] [employer] 01-11-2021 11:09-0500 Diastolic blood pressure 49 mm[Hg] Yanick Umanzor MD Work Phone: [facility] 01-11-2021 11:09-0500 Heart rate 94 /min Yanick Umanzor MD Work Phone: [facility] 01-11-2021 11:09-0500 Respiratory rate 18 /min Yanick Umanzor MD Work Phone: [facility] 01-11-2021 11:09-0500 SaO2% (BldA) [Mass fraction] 99 % Yanick Umanzor MD Work Phone: [facility] 01-11-2021 11:09-0500 Systolic blood pressure 77 mm[Hg] Yanick Umanzor MD Work Phone: [facility] 10-22-2020 15:41-0500 Body Temperature 98.71 [degF] [facility] 10-22-2020 15:41-0500 BP Diastolic 63 mm[Hg] [facility] 10-22-2020 15:41-0500 BP Systolic 131 mm[Hg] [facility] 10-22-2020 15:41-0500 Pulse (Heart Rate) 83 /min [facility] 10-22-2020 15:41-0500 Pulse Oximetry 95 % [facility] 10-22-2020 15:41-0500 Respiratory Rate 16 /min [facility] 10-21-2020 12:22-0500 Diastolic blood pressure 116 ml [facility] 10-21-2020 12:22-0500 Systolic blood pressure 53 ml [facility] 10-19-2020 21:35-0500 BMI (Body Mass Index) 27.92 kg/m2 [facility] 10-19-2020 21:35-0500 Body weight 83.3 kg [facility] 10-19-2020 21:35-0500 Height 172.7 cm [facility] 10-17-2020 05:42-0500 BP Diastolic 74 mm[Hg] Franco Basil [facility] 10-17-2020 05:42-0500 BP Systolic 148 mm[Hg] [facility] 10-17-2020 05:42-0500 Pulse (Heart Rate) 65 /min [facility] 10-17-2020 05:42-0500 Pulse Oximetry 99 % [facility] 10-17-2020 05:42-0500 Respiratory Rate 18 /min [facility] 10-17-2020 03:00-0500 BMI (Body Mass Index) 28.89 kg/m2 [facility] 10-17-2020 03:00-0500 Body Temperature 98.1 [degF] [facility] 10-17-2020 03:00-0500 Body weight 86.18 kg [facility] 10-17-2020 03:00-0500 Height 172.7 cm [facility] 09-13-2020 10:25-0500 BMI (Body Mass Index) 29.65 kg/m2 [facility] 09-13-2020 10:25-0500 Body weight 88.45 kg [facility] 09-13-2020 10:25-0500 BP Diastolic 76 mm[Hg] [facility] 09-13-2020 10:25-0500 BP Systolic 121 mm[Hg] [facility] 09-13-2020 10:25-0500 Height 172.7 cm [facility] 09-13-2020 10:25-0500 Pulse (Heart Rate) 83 /min [facility] 08-15-2020 04:54-0400 Body Temperature 98.01 [degF] [facility] 04:54-0400 BP Diastolic 74 mm[Hg] [facility] 08-15-2020 04:54-0400 BP Systolic 152 mm[Hg] [facility] 08-15-2020 04:54-0400 Pulse (Heart Rate) 80 /min Edenlynn Troy [facility] 08-15-2020 04:54-0400 Pulse Oximetry 95 % Eden Troy [facility] 08-15-2020 04:54-0400 Respiratory Rate 18 /min [facility] 08-14-2020 22:30-0400 BMI (Body Mass Index) 29.8 kg/m2 [facility] 08-14-2020 22:30-0400 Body weight 88.91 kg Eden Troy [facility] 08-14-2020 22:30-0400 Height 172.7 cm Eden Troy [facility] 08-13-2020 12:30-0400 Body Temperature 97.59 [degF] Barry Rodrigues [facility] 08-13-2020 12:30-0400 BP Diastolic 78 mm[Hg] Barry Rodrigues [facility] 08-13-2020 12:30-0400 BP [facility]stolic 132 mm[Hg] [facility] 12:30-0400 Pulse ([facility] Rate) 88 /[facility]-13-[facility] 12:30-0400 Pulse [facility] 97 % [facility] 08-13-2020 12:30-0400 [facility] Rate 16 /[facility] 08-12-2020 16:04-0400 Body Temperature 98.29 [degF] Mary Turpin [facility] 08-12-2020 16:04-0400 BP Di[facility] 72 mm[Hg] [facility] 16:04-0400 BP [facility]stolic 155 mm[Hg[facility]-12[facility] 16:04-0400 Pulse (Heart Rate) 78 /min Mary Turpin [facility] 08-12-2020 16:04-0400 Pulse [facility]ximetry 95 % [facility]-12-2020 16:04-0400 Respiratory Rate 16 /min Mary Turpin [facility] 08-10-2020 11:41-0400 Body Temperature 99.19 [degF] Srinivasan Casas [facility] 08-10-2020 11:41-0400 BP Diastolic 60 mm[Hg] Srinivasan Rodríguezllan [facility] 08-10-2020 11:41-0400 BP Systolic 138 mm[Hg] Srinivasan Yessenia [facility] 08-10-2020 11:41-0400 Pulse (Heart Rate) 93 /min Srinivasan Casas [facility] 08-10-2020 11:41-0400 Pulse Oximetry 96 % Srinivasan Casas [facility] 08-10-2020 11:41-0400 Respiratory Rate 17 /min Srinivasan Casas [facility] 08-09-2020 10:41-0400 Body Temperature 98.4 [degF] Renu Avelar [facility] 08-09-2020 10:41-0400 BP Diastolic 68 mm[Hg] Renu Avelar [facility] 08-09-2020 10:41-0400 BP Systolic 125 mm[Hg] Renu Avelar [facility] 08-09-2020 10:41-0400 Pulse (Heart Rate) 70 /min Renu Avelar [facility] [facility] 08-09-2020 10:41-0400 Respiratory Rate 16 /min Renu Avelar [facility] 08-06-2020 08:18-0400 Body Temperature 98.1 [degF] Generic [facility] 08-06-2020 08:18-0400 BP Diastolic 65 mm[Hg] Generic [facility] 08-06-2020 08:18-0400 BP Systolic 111 mm[Hg] Generic [facility] 08-06-2020 08:18-0400 Pulse Oximetry 93 % Generic [facility] 08-06-2020 08:18-0400 Respiratory Rate 16 /min Generic [facility] 08-06-2020 07:49-0400 Pulse (Heart Rate) 71 /min Generic [facility] 07-29-2020 12:49-0400 BMI (Body Mass Index) 29.8 kg/m2 Generic [facility] 07-29-2020 12:49-0400 Body weight 88.91 kg Generic [facility] 07-29-2020 12:49-0400 Height 172.7 cm [facility] 07-26-2020 12:58-0400 BP Diastolic 78 mm[Hg] Adalberto Espino [facility] 07-26-2020 12:58-0400 BP Systolic 146 mm[Hg] Adalberto Espino [facility] 07-26-2020 12:58-0400 Pulse (Heart Rate) 78 /min Adalberto Espino [facility] 07-26-2020 12:58-0400 Pulse Oximetry 99 % Adalberto Espino [facility] 07-26-2020 12:58-0400 Respiratory Rate 16 /min Adalberto Espino [facility] 07-26-2020 04:30-0400 BMI (Body Mass Index) 30.41 kg/m2 Adalberto Espino [facility] 07-26-2020 04:30-0400 Body Temperature 99.1 [degF] [facility]-26-2020 04:30-0400 Body weight 90.72 kg [facility] 07-26-2020 04:30-0400 Height 172.7 cm Adalberto Espino [facility] h Encounters Encounter Date Encounter Type Care Provider Facility Start: 12-13-2023 End: 12-14-2023 ambulatory Mhd Yaser Al-Marrawi Facility:[facility] [place] Start: 12-13-2023 End: 12-13-2023 Lab Drop off Mhd Yaser Al-Marrawi [facility] Start: 12-13-2023 End: 12-14-2023 ambulatory XXXX NONE Facility:[facility] [place] Start: 12-13-2023 End: 12-13-2023 Patient encounter procedure Tanya Rubin [facility] Start: 12-10-2023 ambulatory [facility] Start: 12-10-2023 End: 12-11-2023 ambulatory Mhd Yaser Al-Marrawi Facility:[facility] [place] Start: 12-04-2023 End: 12-05-2023 ambulatory Mhd Yaser Al-Marrawi Facility:[facility] [place] Start: 12-04-2023 End: 12-04-2023 Patient encounter procedure Mhd Yaser Al-Marrawi [facility] Start: 12-02-2023 End: 12-02-2023 ambulatory [facility] Ambulatory Start: 11-21-2023 ambulatory Jolene Gleason Facility:[facility] Start: 11-19-2023 End: 11-20-2023 ambulatory Kaden LOPES Facility:[facility] [place] Start: 11-12-2023 End: 11-12-2023 ambulatory [facility] Ambulatory Start: 11-12-2023 End: 11-12-2023 Office outpatient visit 25 minutes Jayme De MD Work Phone: [facility] Comment on above: Chest pain, unspecif ied type (Primary Dx); Essential hypertension; Mixed hyperlipidemia; Abnormal stress test; WPW (Zcikr-Kxpzvaqir-Jnaov syndrome); Stage 3a chronic kidney disease (CMS/HCC); Cerebrovascular accident (CVA), unspecified mechanism (CMS/HCC); LORENA (obstructive sleep apnea); halfway resident; Wheelchair dependent Start: 11-07-2023 End: 11-08-2023 ambulatory Mhd Yaser Al-Marrawi Facility:[facility] [place] Start: 11-07-2023 End: 11-07-2023 Patient encounter procedure Mhd Yaser Al-Marrawi [facility] Start: 11-06-2023 End: 11-07-2023 ambulatory Mhd Yaser Al-Marrawi Facility:[facility] [place] Start: 11-06-2023 End: 11-06-2023 Patient encounter procedure Mhd Yaser Al-Marrawi [facility] Start: 10-22-2023 Patient encounter procedure Rafy Steiner APRN.COMPUTER ASSEMBLER Work Phone: [facility] Start: 10-22-2023 Progress Note Rafy SINGH RN.COMPUTER ASSEMBLER Work Phone: [facility] Start: 10-14-2023 End: 10-15-2023 ambulatory Mhd Yaser Al-Marrawi Facility:[facility] [place] Start: 10-14-2023 End: 10-14-2023 Patient encounter procedure Mhd Yaser Al-Marrawi [facility] Start: 10-14-2023 Progress Note Lauren Chowdary Work Phone: [employer] Mechan[employer] Supervisor Start: 10-11-2023 End: 11-06-2023 Pre-admission assessment Kaden LOPES [facility] Start: 10-07-2023 End: 10-11-2023 Evaluation and management of inpatient Paul Yanes Facility:[facility] [place] Start: 10-05-2023 End: 10-11-2023 Evaluation and management of inpatient Rebekah Patel [facility] Start: 09-30-2023 End: 10-01-2023 ambulatory Mhd Yaser AlMarrawi Facility:[facility] [place] Start: 09-30-2023 End: 10-01-2023 ambulatory XXXX NONE Facility:[facility] [place] Start: 09-30-2023 End: 09-30-2023 Patient encounter procedure Mhd [facility] Start: 09-23-2023 ambulatory XXXX NONE Facility:[facility] Start: 09-20-2023 Patient encounter procedure Itri A Ricarda Work Phone: [facility] Start: 09-20-2023 Progress Note Itri A Ricarda Work Phone: [facility] Start: 09-13-2023 End: 09-13-2023 ambulatory [facility] Ambulatory Start: 09-06-2023 End: 09-07-2023 ambulatory Jose Akkina Facility:[facility] [place] Start: 09-06-2023 End: 09-06-2023 Patient encounter procedure Jose Akkina [facility] Start: 08-29-2023 Patient encounter procedure Rafy Steiner APRN.COMPUTER ASSEMBLER Work Phone: [facility] Start: 08-29-2023 Progress Note Rafy SINGH RN.COMPUTER ASSEMBLER Work Phone: [facility] Start: 08-20-2023 End: 08-20-2023 ambulatory [facility] Start: 08-05-2023 End: 08-05-2023 ambulatory [facility] Ambulatory Start: 07-25-2023 Patient encounter procedure Itri A Ricarda Work Phone: [facility] Start: 07-25-2023 Progress Note Itri Amber Ricarda Work Phone: [employer] [facility] Super[employer] Start: 07-22-[address] Lauren Chowdary Facilit y:[id number] Start: 07-22-2023 Patient encounter procedure Itri A Ricarda Work Phone: [place] [phone] Work Phone: Start: 06-05-2023 Patient encounter procedure Rafy Steiner APRN.COMPUTER ASSEMBLER Work Phone: [facility] Start: 06-05-2023 Progress Note Rafy SINGH RN.COMPUTER ASSEMBLER Work Phone: [facility] Start: 05-20-2023 Patient encounter procedure Itri A Ricarda Work Phone: [facility] Start: 05-20-2023 Progress Note Itri A Ricarda Work Phone: [facility] Start: 05-14-2023 Patient encounter procedure Rafy Steiner APRN.COMPUTER ASSEMBLER Work Phone: [facility] Start: 05-14-2023 Progress Note Rafy SINGH RN.COMPUTER ASSEMBLER Work Phone: [facility] Start: 05-09-2023 Patient encounter procedure Itri A Ricarda Work Phone: [facility] Start: 05-09-2023 Progress Note Itri A Ricarda Work Phone: [facility] Start: 05-05-2023 End: 05-08-2023 Evaluation and management of inpatient Rafi Blackman Facility:[facility] [place] Start: 05-02-2023 Patient encounter procedure Rafy Steiner APRN.COMPUTER ASSEMBLER Work Phone: [facility] Start: 05-02-2023 Progress Note Rafy SINGH RN.COMPUTER ASSEMBLER Work Phone: [facility] Start: 04-26-2023 End: 04-27-2023 Evaluation and management of inpatient Paul BENENTT Facility:[facility] [place] Start: 04-26-[address] Lauren Chowdary Facilit y: Start: 04-25-2023 Patient encounter procedure Rafy Steiner QUENCHING CAR OPERATOR.COMPUTER ASSEMBLER Work Phone: [facility] Start: 04-25-2023 Progress Note Rafy SINGH RN.COMPUTER ASSEMBLER Work Phone: [facility] Start: 04-25-2023 ambulatory Jayme De Facnoah lity: Start: 04-25-2023 End: 04-27-2023 Evaluation and management of inpatient Paul BENNETT [facility] Start: 04-16-2023 Patient encounter procedure Rafy Steiner APRN.COMPUTER ASSEMBLER Work Phone: [facility] Start: 04-16-2023 Progress Note Rafy SINGH RN.COMPUTER ASSEMBLER Work Phone: [facility] Start: 03-28-2023 Patient encounter procedure Rafy Steiner APRN.COMPUTER ASSEMBLER Work Phone: [facility] Start: 03-28-2023 Progress Note Rafy SINGH RN.COMPUTER ASSEMBLER Work Phone: [facility] Start: 03-26-2023 End: 03-26-2023 Emergency department patient visit Giorgio Villasenor Facility:[facility] [place] Start: 03-12-2023 Patient encounter procedure Rafy Steiner QUENCHING CAR OPERATOR.COMPUTER ASSEMBLER Work Phone: [facility] Start: 03-12-2023 Progress Note Rafy SINGH RN.COMPUTER ASSEMBLER Work Phone: [facility] Start: 03-07-2023 Patient encounter procedure Lauren Chowdary Work Phone: [facility] Start: 03-07-2023 Progress Note Lauren Chowdary Work Phone: [employer] Super[employer] Start: 03-04-[address] Lauren Chowdary Facility: Start: 03-04-[address] Lauren Chowdary Facility: Start: 03-02-2023 End: 03-04-2023 Evaluation and management of inpatient Corina RENNER Facility:[facility] [place] Start: 03-02-[address] Lauren Chowdary Facility: Start: 03-01-[address] Lauren Chowdary Facility: Start: 03-01-2023 End: 03-04-2023 Evaluation and management of inpatient William BAER [facility] Start: 03-01-[address] Lauren Chowdary Facility: Start: 02-28-2023 Patient encounter procedure Rafy Steiner APRN.COMPUTER ASSEMBLER Work Phone: [facility] Start: 02-28-2023 Progress Note Rafy SINGH RN.COMPUTER ASSEMBLER Work Phone: [facility] Start: 02-26-2023 Patient encounter procedure Rafy Steiner APRN.COMPUTER ASSEMBLER Work Phone: [facility] Start: 02-26-2023 Progress Note Rafy SINGH RN.COMPUTER ASSEMBLER Work Phone: [facility] Start: 02-19-2023 Patient encounter procedure Rafy Steiner APRN.COMPUTER ASSEMBLER Work Phone: [facility] Start: 02-19-2023 Progress Note Rafy SINGH RN.COMPUTER ASSEMBLER Work Phone: [facility] Start: 02-12-2023 Patient encounter procedure Rafy Steiner APRN.COMPUTER ASSEMBLER Work Phone: [facility] Start: 02-12-2023 Progress Note Rafy SINGH RN.COMPUTER ASSEMBLER Work Phone: [facility] Start: 02-05-2023 Patient encounter procedure Rafy Steiner APRN.COMPUTER ASSEMBLER Work Phone: [facility] Start: 02-05-2023 Progress Note Rafy SINGH RN.COMPUTER ASSEMBLER Work Phone: [facility] Start: 01-22-2023 Patient encounter procedure Rafy Steiner APRN.COMPUTER ASSEMBLER Work Phone: [facility] Start: 01-22-2023 Progress Note Rafy SINGH RN.COMPUTER ASSEMBLER Work Phone: [facility] Start: 01-17-2023 Patient encounter procedure Rafy Steiner QUENCHING CAR OPERATOR.COMPUTER ASSEMBLER Work Phone: [facility] Start: 01-17-2023 Progress Note Rafy SINGH RN.COMPUTER ASSEMBLER Work Phone: [facility] Start: 01-15-2023 Patient encounter procedure Rafy Steiner QUENCHING CAR OPERATOR.COMPUTER ASSEMBLER Work Phone: [facility] Start: 01-15-2023 Progress Note Rafy SINGH RN.COMPUTER ASSEMBLER Work Phone: [facility] Start: 01-01-2023 Patient encounter procedure Itri A Ricarda Work Phone: [facility] Start: 01-01-2023 Progress Note Itri A Ricarda Work Phone: [employer] Start: 12-31-2022 Patient encounter procedure Rafy Steiner APRN.COMPUTER ASSEMBLER Work Phone: [facility] Start: 12-31-2022 Progress Note Rafy SINGH RN.COMPUTER ASSEMBLER Work Phone: [facility] Start: 12-13-2022 ambulatory [facility] Facility :[facility] Start: 12-10-2022 Evaluation and management of inpatient MEGHA [facility] Ambulatory Start: 12-10-2022 Office outpatient ne w 30 minutes [facility] Start: 12-06-2022 ambulatory [facility] Facility :[facility] Start: 12-03-2022 Evaluation and management of inpatient MEGHA [facility] Ambulatory Start: 11-30-2022 ambulatory Micheal URBAN Facility :[facility] Start: 11-27-2022 Evaluation and management of inpatient MEGHA PARK [facility] Ambulatory Start: 10-25-2022 ambulatory Micheal FARR URBAN Facility :[facility] Start: 10-25-2022 Evaluation and management of inpatient EMELY Bean [facility] Ambulatory Start: 10-18-2022 ambulatory Micheal URBAN Facility :[facility] Start: 10-18-2022 Evaluation and management of inpatient EMELY Bean [facility] Ambulatory Start: 10-15-2022 End: 10-15-2022 ambulatory [facility] Start: 10-11-2022 ambulatory Micheal URBAN Facility :[facility] Start: 10-11-2022 Evaluation and management of inpatient EMELY Bean [facility] Ambulatory Start: 09-27-2022 ambulatory Micheal FARR URBAN Facility :[facility] Start: 09-27-2022 Evaluation and management of inpatient EMELY Bean [facility] Ambulatory Start: 09-25-2022 Orders Only Jb Jennings LPN [facility] Comment on above: PAD (peripheral fany ry disease) (HCC) (Primary Dx) Start: 09-22-2022 End: 09-22-2022 Emergency department patient visit JENISE CORRALES Facility:[facility] Start: 09-22-2022 Evaluation and management of inpatient SAUD BALDWIN [facility] Ambulatory Start: 09-22-2022 End: 09-22-2022 Emergency department patient visit DO PAUL HOWELL Work Phone: [facility] Start: 09-09-2022 End: 09-14-2022 Evaluation and management of inpatient GREYSON [facility] Start: 09-09-2022 End: 09-09-2022 ambulatory MARILIN BUCKLEY Facility:[facility] Start: 09-09-2022 End: 09-14-2022 Evaluation and management of inpatient Adalberto Andrade DO Work Phone: [facility] Comment on above: Acute kidney injury (CMS/HCC) (Primary Dx); Chronic anemia; Behavior concern; PTSD (post-traumatic stress disorder); Occipital neuralgia of left side; Stage 3a chronic kidney disease Start: 09-09-2022 End: 09-09-2022 Emergency department patient visit CRISTIAN NYE Facility:[facility] Start: 09-09-2022 Evaluation and management of inpatient Background Luis [facility] Ambulatory Start: 09-08-2022 End: 09-09-2022 Emergency department patient visit DO PAUL HOWELL Work Phone: [facility] Start: 09-08-2022 End: 09-08-2022 Emergency department patient visit PAUL HOWELL Facility:[facility] Start: 09-08-2022 Evaluation and management of inpatient SCRIPTING 2 [facility] Ambulatory Start: 09-08-2022 End: 09-08-2022 Emergency department patient visit DO PAUL HOWELL Work Phone: [facility] Start: 08-27-2022 ambulatory CAROL SANON [facility] Start: 08-21-2022 Telephone encounter Mesha Carty MA, MCM [place] Start: 06-18-2022 Evaluation and management of inpatient MAY U NASREEN [facility] Start: 05-22-2022 Evaluation and management of inpatient OLUGBENGA F IONA [facility] Start: 05-06-2022 Evaluation and management of inpatient ZAID LEON [facility] Start: 05-03-2022 Telephone encounter Rocio Clark [facility] Start: 05-02-2022 End: 06-29-2022 Evaluation and management of inpatient ZACHERY COOMBS [facility] Start: 05-01-2022 End: 06-29-2022 Emergency department patient visit Ant Arredondo DO Work Phone: [facility] Start: 04-30-2022 End: 04-30-2022 ambulatory RAMANA [facility] Start: 04-27-2022 End: 04-27-2022 ambulatory FATMATA COSBY [facility] Ambulatory Start: 04-27-2022 End: 04-27-2022 Office outpatient visit 15 minutes Fatmata Cosby MD Work Phone: [facility] Comment on above: PAD (peripheral fany ry disease) ([facility]) (Primary Dx) Start: 04-26-2022 End: 04-26-2022 ambulatory ASOK KATHY [facility] Start: 04-25-2022 End: 04-26-2022 Patient encounter procedure [facility] Comment on above: Sleep apnea, unspeci fied type; LORENA (obstructive sleep apnea); Primary hypertension; Type 2 diabetes mellitus with right diabetic foot ulcer ([facility]/HCC); Cerebrovascular accident (CVA), unspecified mechanism (CMS/HCC) Start: 04-09-2022 End: 04-09-[address] [facility] Start: 04-09-2022 End: 04-09-2022 Patient encounter procedure Ramana Jaramillo DPM Work Phone: [facility] Comment on above: Stage IV pressure ul cer of left heel ([facility]) Start: 04-09-2022 End: 04-09-2022 Postop follow up visit related to original px Ramana Jaramillo DPM Work Phone: [facility] Comment on above: Stage IV pressure ul cer of left heel ([facility]) Start: 03-19-2022 End: 03-19-2022 ambulatory RAMANA [facility] Start: 03-19-2022 End: 03-19-2022 Postop follow up visit related to original px Ramana Jaramillo DPM Work Phone: [facility] Comment on above: Decubitus ulcer of l eft heel, stage 4 ([facility]) (Primary Dx); Diabetic ulcer of left foot associated with diabetes mellitus of other type, with other ulcer severity, unspecified part of foot ([facility]) Start: 03-02-2022 End: 03-02-2022 ambulatory FATMATA COSBY [facility] Ambulatory Start: 03-02-2022 End: 03-02-2022 Office outpatient visit 15 minutes Fatmata Cosby MD Work Phone: [facility] Comment on above: PAD (peripheral fany ry disease) (HCC) (Primary Dx) Start: 02-28-2022 Telephone encounter Asomargaret Pabongu aircraft captain MD Work Phone: [facility] Comment on above: Schedule Sleep studi es Start: 02-26-2022 End: 02-26-[address] [facility] Start: 02-26-2022 End: 02-26-2022 Patient encounter procedure Ramana Jaramillo DPM Work Phone: [facility] Comment on above: Decubitus ulcer of l eft heel, stage 4 (HCC) (Primary Dx); Diabetic ulcer of left foot associated with diabetes mellitus of other type, with other ulcer severity, unspecified part of foot (HCC) Start: 02-21-2022 End: 02-21-2022 ambulatory LAMIN STRINGER [facility] Start: 02-21-2022 End: 02-21-2022 Office outpatient new 45 minutes Lamin Stringer MD Work Phone: [facility] Comment on above: Sleep apnea, unspeci fied type (Primary Dx) Start: 02-21-2022 End: 02-21-2022 Patient encounter procedure Lamin Stringer MD Work Phone: [facility] Start: 02-12-2022 End: 02-12-[address] [facility] Start: 02-12-2022 End: 02-12-2022 Patient encounter procedure Ramana Jaramillo DPM Work Phone: [facility] Wound [facility] Comment on above: Decubitus ulcer of l eft heel, stage 4 (HCC) (Primary Dx); Diabetic ulcer of left foot associated with diabetes mellitus of other type, with other ulcer severity, unspecified part of foot (HCC) Start: 01-29-2022 End: 01-29-[address] [facility] Start: 01-29-2022 End: 01-29-2022 Postop follow up visit related to original px Ramana Jaramillo DPM Work Phone: [facility] Comment on above: Decubitus ulcer of l eft heel, stage 4 (HCC) (Primary Dx) Start: 01-18-2022 End: 01-19-2022 Emergency department patient visit GREYSON DOMINGUEZ [facility] Start: 01-18-2022 End: 01-18-2022 Emergency department patient visit Magdalena Mccullough MD Work Phone: [facility] Emergency Room Comment on above: Fecal impaction (CMS /HCC) (Primary Dx) Start: 01-18-2022 End: 01-18-2022 Evaluation and management of inpatient Magdalena Mccullough MD Work Phone: [facility] Emergency Room Start: 01-09-2022 End: 01-17-2022 Evaluation and management of inpatient Garth Torrez MD Work Phone: [facility] Oncology/Surgery Start: 12-30-2021 End: 12-30-2021 ambulatory GREYSON BARRETOER [facility] Start: 12-22-2021 Chart abstracting Britt Strong RN [facility] Start: 10-15-2021 End: 10-15-2021 Emergency department patient visit TANJA NICHOLS~[id number] TANJA NICHOLS~[id number] [facility] Start: 10-15-2021 End: 10-15-2021 Emergency department patient visit Magdalena Nuno DO Work Phone: [facility] Emergency Room Comment on above: Complication of Fole y catheter, initial encounter (CMS/HCC) (Primary Dx); Chronic anemia; Urinary tract infection associated with indwelling urethral catheter, initial encounter (CMS/HCC) Start: 10-15-2021 End: 10-15-2021 Evaluation and management of inpatient Magdalena Mcneillmargaret [place] Work Phone: [facility] Emergency Room Start: 07-25-2021 End: 07-25-2021 Postop follow up visit related to original px Paul Gaona DO Work Phone: [facility] Vascular Surgery Comment on above: Diabetic ulcer of ot her part of left foot associated with diabetes mellitus due to underlying condition, limited to breakdown of skin (Primary Dx) Start: 06-12-2021 End: 06-12-2021 Postop follow up visit related to original px Paul Balbuena Mazin [place] Work Phone: [facility] Vascular Surgery Comment on above: Type 2 diabetes prabha itus with right diabetic foot ulcer (Primary Dx); Diabetic autonomic neuropathy associated with type 2 diabetes mellitus; Foot drop, left; Neuropathy Start: 01-11-2021 End: 01-11-2021 Office outpatient visit 15 minutes Yanick Umanzor MD Work Phone: [facility] Comment on above: Impacted cerumen of right ear (Primary Dx) Start: 10-27-2020 End: 10-27-2020 Home visit Stacey Cruz [facility] Comment on above: SN HH NON ADMIT VISI T Start: 10-20-2020 End: 10-20-2020 Admission to [facility] Start: 10-20-2020 ambulatory [facility] Start: 10-19-2020 End: 10-22-2020 Evaluation and management of inpatient Eden Troy Work Phone: [facility] Comment on above: Pyelonephritis (Prim bam Dx); Hematuria, gross; Todd catheter in place prior to arrival; Weakness generalized Start: 10-17-2020 End: 10-17-2020 Emergency department patient visit Francoviola Bergman Basil Work Phone: [facility] Comment on above: Urinary retention (P rimary Dx) Start: 09-13-2020 End: 09-13-2020 Office outpatient new 45 minutes Jamarcus Manley Work Phone: [facility] Comment on above: Overactive bladder ( Primary Dx); Mass of urinary bladder Start: 08-26-2020 End: 08-26-2020 Home visit Joy Sanchez [facility] Comment on above: POTTERY STRIPER TELEPHONE DISCIP LINE DISCHARGE Start: 08-16-2020 End: 08-16-2020 Home visit Gladis Vogt [facility] Comment on above: YOUTH LIAISON OFFICER MISSED VISIT VACUUM PLASTIC FORMING MACHINE OPERATOR HH MISSED VISIT Start: 08-14-2020 End: 08-15-2020 Emergency department patient visit Eden Troy Work Phone: [facility] Comment on above: Hematuria, gross (Pr imary Dx); Bladder wall thickening; Hydroureteronephrosis; Penile hypospadias Start: 08-13-2020 End: 08-13-2020 Home visit Barry Rodrigues [facility] Comment on above: SN HH ROUTINE VISIT Start: 08-12-2020 End: 08-12-2020 Home visit Zuly Cardenas [facility] Comment on above: SN MISSED VISIT PT ROUTINE VISIT Start: 08-11-2020 End: 08-11-2020 Home visit Zuly Cardenas [facility] Comment on above: CASE COMMUNICATION Start: 08-10-2020 End: 08-10-2020 Home visit Srinivasan Casas [facility] Comment on above: SN HH INITIAL EVAL Start: 08-09-2020 End: 08-09-2020 [facility] Comment on above: CASE COMMUNICATION PT OASIS START OF CA RE Start: 2020 End: 2020 [facility] above: CASE COMMUNICATION Start: 07-26-2020 End: 08-06-2020 Evaluation and management of inpatient [facility] Work Phone: [facility] Comment on above: Open wound of left f oot, initial encounter (Primary Dx) Start: 07-26-2020 End: 07-26-2020 Emergency department patient visit Adalberto Mckee Srinivas Work Phone: [facility] Comment on above: Cellulitis, unspecif ied cellulitis site (Primary Dx); Open wound of foot, unspecified laterality, initial encounter; Elevated blood pressure reading; H/O diabetes mellitus; Anemia, unspecified type; Hyponatremia; Hyperglycemia; Elevated C-reactive protein (CRP) Procedures Date Procedure Procedure Detail Performing Clinician Start: 12-02-2023 CASE REQUEST OPERATI NG ROOM MIKI TRENT Start: 12-02-2023 OCT, RETINA - OU - B OTH EYES [facility] Start: 09-13-2023 OCT, RETINA - OU - B OTH EYES [facility] Start: 08-20-2023 DISCHARGE PATIENT [facility] Start: 08-20-2023 Glucose [Mass/volume ] in Serum or Plasma MIKI BAUER Start: 08-20-2023 Glucose [Mass/volume ] in Serum or Plasma MIKI BAUER Start: 08-20-2023 PLACE IN OUTPATIENT/HOSPITAL AMBULATORY SURGERY MIKI BAUER Start: 08-20-2023 Retinal structure (b desi structure) Mhd Minda Comment on above: Retinal surgery Start: 08-05-2023 Follow-up visit Follow-up MIKI TRENTMICHAEL Start: 09-22-2022 CT of head without contrast DO PAUL HOWELL Work Phone: Start: 09-14-2022 Gluc bld gluc mntr d ev cleared fda spec home use March Nasreen GAMEZ Work Phone: Start: 09-14-2022 Basic metabolic pane l calcium total Dequan Duran MD Work Phone: Start: 09-13-2022 Gluc bld gluc mntr d ev cleared fda spec home use Dequan Duran MD Work Phone: Start: 09-13-2022 Sars-cov-2 detection by dna/rna Dequan Duran MD Work Phone: Start: 09-13-2022 Gluc bld gluc mntr d ev cleared fda spec home use Dequan Duran MD Work Phone: Start: 09-13-2022 Gluc bld gluc mntr d ev cleared fda spec home use Dequan Duran MD Work Phone: Start: 09-13-2022 Gluc bld gluc mntr d ev cleared fda spec home use Dequan Duran MD Work Phone: Start: 09-13-2022 Gluc bld gluc mntr d ev cleared fda spec home use Haven Parekh MD Work Phone: Start: 09-13-2022 Basic metabolic pane l calcium total Shin Eason MD Work Phone: Start: 09-12-2022 Gluc bld gluc mntr d ev cleared fda spec home use Haven Parekh MD Work Phone: Start: 09-12-2022 Gluc bld gluc mntr d ev cleared fda spec home use Haven Parekh MD Work Phone: Start: 09-12-2022 Gluc bld gluc mntr d ev cleared fda spec home use Haven Parekh MD Work Phone: Start: 09-12-2022 Gluc bld gluc mntr d ev cleared fda spec home use Haven Parekh MD Work Phone: Start: 09-11-2022 End: 09-11-2022 Basic metabolic panel calcium total Haven Parekh MD Work Phone: Start: 09-11-2022 EXTRA TUBES Haven harvey MD Work Phone: Start: 09-11-2022 LIGHT GREEN TOP Haven Parekh MD Work Phone: Start: 09-11-2022 Gluc bld gluc mntr d ev cleared fda spec home use Haven Parekh MD Work Phone: Start: 09-11-2022 Gluc bld gluc mntr d ev cleared fda spec home use Haven Parekh MD Work Phone: Start: 09-11-2022 End: 09-11-2022 TRANSFUSE RED BLOOD CELLS Haven mays MD Work Phone: Start: 09-11-2022 RBC leukocytes reduced Haven Paerkh MD Work Phone: Start: 09-11-2022 Gluc bld gluc mntr d ev cleared fda spec home use Haven Parekh MD Work Phone: Start: 09-11-2022 Antibody screen [facility] Comment on above: Performed By: #### L [id number] #### [facility] [address] [place] [address] Start: 09-11-2022 GOLD SST TOP Haven harvey MD Work Phone: Start: 09-11-2022 LIGHT GREEN TOP Haven Parekh MD Work Phone: Start: 09-11-2022 EXTRA TUBES Haven harvey MD Work Phone: Start: 09-11-2022 LAVENDER TOP Haven harvey MD Work Phone: Start: 09-11-2022 Blood typing serologic abo Haven Parekh MD Work Phone: Start: 09-11-2022 Gluc bld gluc mntr d ev cleared fda spec home use March U Nasreen GAMEZ Work Phone: Start: 09-11-2022 Basic metabolic pane l calcium total March U Nasreen GAMEZ Work Phone: Start: 09-10-2022 Gluc bld gluc mntr d ev cleared fda spec home use March U Nasreen GAMEZ Work Phone: Start: 09-10-2022 Gluc bld gluc mntr d ev cleared fda spec home use March U Nasreen GAMEZ Work Phone: Start: 09-10-2022 Gluc bld gluc mntr d ev cleared fda spec home use March U Nasreen GAMEZ Work Phone: Start: 09-10-2022 End: 09-10-2022 Basic metabolic panel calcium total March U Nasreen GAMEZ Work Phone: Start: 09-10-2022 Gluc bld gluc mntr d ev cleared fda spec home use March U Nasreen GAMEZ Work Phone: Start: 09-10-2022 Cyanocobalamin vitam in b-12 March U Nasreen GAMEZ Work Phone: Start: 09-09-2022 Basic metabolic pane l calcium total Jorge Ojeda QUENCHING CAR OPERATOR-WEB MANAGER Work Phone: Start: 09-09-2022 COVID/FLU-JEOL Jorge Ojeda QUENCHING CAR OPERATOR-WEB MANAGER Work Phone: Start: 09-09-2022 Culture bacterial quanttative colony count urine Eliajh Munguia MD Work Phone: Start: 09-09-2022 Drug tst prsmv instr mnt chem analyzers pr date Jorge Ojeda QUENCHING CAR OPERATOR-WEB MANAGER Work Phone: Start: 09-09-2022 TOXICOLOGY SCREEN, SERUM Jorge Ojeda QUENCHING CAR OPERATOR-WEB MANAGER Work Phone: Start: 08-27-2022 Follow-up visit Follow-up CAROL SANON Start: 06-29-2022 Gluc bld gluc mntr d ev cleared fda spec home use Zachery Coombs MD Work Phone: Start: 06-29-2022 Sars-cov-2 detection by dna/rna Zachery Coombs MD Work Phone: Start: 06-29-2022 Gluc bld gluc mntr d ev cleared fda spec home use Zachery Coombs MD Work Phone: Start: 06-29-2022 Gluc bld gluc mntr d ev cleared fda spec home use Zachery Coombs MD Work Phone: Start: 06-28-2022 Gluc bld gluc mntr d ev cleared fda spec home use Zachery Coombs MD Work Phone: Start: 06-28-2022 Gluc bld gluc mntr d ev cleared fda spec home use Zachery Coombs MD Work Phone: Start: 06-28-2022 Gluc bld gluc mntr d ev cleared fda spec home use Zachery Coombs MD Work Phone: Start: 06-28-2022 Gluc bld gluc mntr d ev cleared fda spec home use Zachery Coombs MD Work Phone: Start: 06-27-2022 Gluc bld gluc mntr d ev cleared fda spec home use Zachery Coombs MD Work Phone: Start: 06-27-2022 Gluc bld gluc mntr d ev cleared fda spec home use Zachery Coombs MD Work Phone: Start: 06-27-2022 Gluc bld gluc mntr d ev cleared fda spec home use Zachery Coombs MD Work Phone: Start: 06-27-2022 Gluc bld gluc mntr d ev cleared fda spec home use Zachery Coombs MD Work Phone: Start: 06-26-2022 Gluc bld gluc mntr d ev cleared fda spec home use Zachery Coombs MD Work Phone: Start: 06-26-2022 Gluc bld gluc mntr d ev cleared fda spec home use Zachery Coombs MD Work Phone: Start: 06-26-2022 Gluc bld gluc mntr d ev cleared fda spec home use Zachery Coombs MD Work Phone: Start: 06-26-2022 Gluc bld gluc mntr d ev cleared fda spec home use Zachery Coombs MD Work Phone: Start: 06-25-2022 Gluc bld gluc mntr d ev cleared fda spec home use Zachery Coombs MD Work Phone: Start: 06-25-2022 Gluc bld gluc mntr d ev cleared fda spec home use Zachery Coombs MD Work Phone: Start: 06-25-2022 Gluc bld gluc mntr d ev cleared fda spec home use Zachery Coombs MD Work Phone: Start: 06-25-2022 End: 06-25-2022 Gluc bld gluc mntr dev cleared fda spec home use Zachery Coombs MD Work Phone: Start: 06-24-2022 Gluc bld gluc mntr d ev cleared fda spec home use Zachery Coombs MD Work Phone: Start: 06-24-2022 Gluc bld gluc mntr d ev cleared fda spec home use Zachery Coombs MD Work Phone: Start: 06-24-2022 Gluc bld gluc mntr d ev cleared fda spec home use Zachery Coombs MD Work Phone: Start: 06-24-2022 Gluc bld gluc mntr d ev cleared fda spec home use Zachery Coombs MD Work Phone: Start: 06-23-2022 Gluc bld gluc mntr d ev cleared fda spec home use Zachery Coombs MD Work Phone: Start: 06-23-2022 Gluc bld gluc mntr d ev cleared fda spec home use Zachery Coombs MD Work Phone: Start: 06-23-2022 Gluc bld gluc mntr d ev cleared fda spec home use Zachery Coombs MD Work Phone: Start: 06-23-2022 Gluc bld gluc mntr d ev cleared fda spec home use Zachery Coombs MD Work Phone: Start: 06-22-2022 Gluc bld gluc mntr d ev cleared fda spec home use Zachery Coombs MD Work Phone: Start: 06-22-2022 Gluc bld gluc mntr d ev cleared fda spec home use Zachery Coombs MD Work Phone: Start: 06-22-2022 Gluc bld gluc mntr d ev cleared fda spec home use Zachery Coombs MD Work Phone: Start: 06-22-2022 Gluc bld gluc mntr d ev cleared fda spec home use Zachery Coombs MD Work Phone: Start: 06-21-2022 Gluc bld gluc mntr d ev cleared fda spec home use Zachery Coombs MD Work Phone: Start: 06-21-2022 Gluc bld gluc mntr d ev cleared fda spec home use Zachery Coombs MD Work Phone: Start: 06-21-2022 Gluc bld gluc mntr d ev cleared fda spec home use Zachery Coombs MD Work Phone: Start: 06-21-2022 Gluc bld gluc mntr d ev cleared fda spec home use Zachery Coombs MD Work Phone: Start: 06-20-2022 Gluc bld gluc mntr d ev cleared fda spec home use Blair Perdomo MD Work Phone: Start: 06-20-2022 Gluc bld gluc mntr d ev cleared fda spec home use Blair Perdomo MD Work Phone: Start: 06-20-2022 Gluc bld gluc mntr d ev cleared fda spec home use Blair Perdomo MD Work Phone: Start: 06-20-2022 Gluc bld gluc mntr d ev cleared fda spec home use Blair Perdomo MD Work Phone: Start: 06-19-2022 Gluc bld gluc mntr d ev cleared fda spec home use March U Nasreen GAMEZ Work Phone: Start: 06-19-2022 Gluc bld gluc mntr d ev cleared fda spec home use March U Nasreen GAMEZ Work Phone: Start: 06-19-2022 Gluc bld gluc mntr d ev cleared fda spec home use March U Nasreen GAMEZ Work Phone: Start: 06-19-2022 Gluc bld gluc mntr d ev cleared fda spec home use March U Nasreen GAMEZ Work Phone: Start: 06-18-2022 Gluc bld gluc mntr d ev cleared fda spec home use March U Nasreen GAMEZ Work Phone: Start: 06-18-2022 Gluc bld gluc mntr d ev cleared fda spec home use March U Nasreen GAMEZ Work Phone: Start: 06-18-2022 Gluc bld gluc mntr d ev cleared fda spec home use March U Nasreen GAMEZ Work Phone: Start: 06-18-2022 Radiologic exam ches t single view March U Nasreen GAMEZ Work Phone: Start: 06-18-2022 Cul prsmptv pthgnc organism scrn w/colony estimj March U Nasreen GAMEZ Work Phone: Start: 06-18-2022 Sars-cov-2 detection by dna/rna March U Nasreen GAMEZ Work Phone: Start: 06-18-2022 Gluc bld gluc mntr d ev cleared fda spec home use March U Nasreen GAMEZ Work Phone: Start: 06-18-2022 Basic metabolic pane l calcium total March U Nasreen GAMEZ Work Phone: Start: 06-17-2022 Gluc bld gluc mntr d ev cleared fda spec home use March U Nasreen GAMEZ Work Phone: Start: 06-17-2022 Gluc bld gluc mntr d ev cleared fda spec home use March U Nasreen GAMEZ Work Phone: Start: 06-17-2022 WOUND OSTOMY EVAL AN D TREAT March U Nasreen GAMEZ Work Phone: Start: 06-17-2022 Gluc bld gluc mntr d ev cleared fda spec home use March U Nasreen GAMEZ Work Phone: Start: 06-17-2022 Gluc bld gluc mntr d ev cleared fda spec home use March U Nasreen GAMEZ Work Phone: Start: 06-16-2022 Gluc bld gluc mntr d ev cleared fda spec home use March U Nasreen GAMEZ Work Phone: Start: 06-16-2022 Gluc bld gluc mntr d ev cleared fda spec home use March U Nasreen GAMEZ Work Phone: Start: 06-16-2022 Gluc bld gluc mntr d ev cleared fda spec home use March U Nasreen GAMEZ Work Phone: Start: 06-16-2022 Gluc bld gluc mntr d ev cleared fda spec home use March U Nasreen GAMEZ Work Phone: Start: 06-15-2022 Gluc bld gluc mntr d ev cleared fda spec home use March U Nasreen GAMEZ Work Phone: Start: 06-15-2022 Gluc bld gluc mntr d ev cleared fda spec home use March U Nasreen GAMEZ Work Phone: Start: 06-15-2022 Gluc bld gluc mntr d ev cleared fda spec home use March U Nasreen GAMEZ Work Phone: Start: 06-15-2022 Gluc bld gluc mntr d ev cleared fda spec home use March U Nasreen GAMEZ Work Phone: Start: 06-14-2022 Gluc bld gluc mntr d ev cleared fda spec home use March U Nasreen GAMEZ Work Phone: Start: 06-14-2022 Gluc bld gluc mntr d ev cleared fda spec home use March U Nasreen GAMEZ Work Phone: Start: 06-14-2022 Gluc bld gluc mntr d ev cleared fda spec home use March U Nasreen GAMEZ Work Phone: Start: 06-14-2022 Gluc bld gluc mntr d ev cleared fda spec home use March U Nasreen GAMEZ Work Phone: Start: 06-13-2022 Gluc bld gluc mntr d ev cleared fda spec home use March U Nasreen GAMEZ Work Phone: Start: 06-13-2022 Gluc bld gluc mntr d ev cleared fda spec home use March U Nasreen GAMEZ Work Phone: Start: 06-13-2022 Gluc bld gluc mntr d ev cleared fda spec home use March U Nasreen GAMEZ Work Phone: Start: 06-13-2022 Gluc bld gluc mntr d ev cleared fda spec home use March U Nasreen GAMEZ Work Phone: Start: 06-12-2022 Gluc bld gluc mntr d ev cleared fda spec home use Maureen Huitron MD Work Phone: Start: 06-12-2022 Gluc bld gluc mntr d ev cleared fda spec home use Maureen Huitron MD Work Phone: Start: 06-12-2022 Gluc bld gluc mntr d ev cleared fda spec home use Maureen Huitron MD Work Phone: Start: 06-12-2022 Gluc bld gluc mntr d ev cleared fda spec home use Maureen Huitron MD Work Phone: Start: 06-12-2022 Gluc bld gluc mntr d ev cleared fda spec home use Maureen Huitron MD Work Phone: Start: 06-11-2022 Gluc bld gluc mntr d ev cleared fda spec home use Maureen Huitron MD Work Phone: Start: 06-11-2022 Gluc bld gluc mntr d ev cleared fda spec home use Maureen Huitron MD Work Phone: Start: 06-11-2022 Gluc bld gluc mntr d ev cleared fda spec home use Maureen Huitron MD Work Phone: Start: 06-10-2022 Gluc bld gluc mntr d ev cleared fda spec home use Maureen Huitron MD Work Phone: Start: 06-10-2022 Gluc bld gluc mntr d ev cleared fda spec home use Maureen Huitron MD Work Phone: Start: 06-10-2022 Gluc bld gluc mntr d ev cleared fda spec home use Maureen Huitron MD Work Phone: Start: 06-10-2022 Gluc bld gluc mntr d ev cleared fda spec home use Maureen Huitron MD Work Phone: Start: 06-10-2022 Gluc bld gluc mntr d ev cleared fda spec home use Maureen Huitron MD Work Phone: Start: 06-09-2022 Gluc bld gluc mntr d ev cleared fda spec home use Maureen Huitron MD Work Phone: Start: 06-09-2022 Gluc bld gluc mntr d ev cleared fda spec home use Maureen Huitron MD Work Phone: Start: 06-09-2022 Gluc bld gluc mntr d ev cleared fda spec home use Maureen Huitron MD Work Phone: Start: 06-09-2022 Gluc bld gluc mntr d ev cleared fda spec home use Maureen Huitron MD Work Phone: Start: 06-08-2022 Gluc bld gluc mntr d ev cleared fda spec home use Kevin Patel MD Work Phone: Start: 06-08-2022 Gluc bld gluc mntr d ev cleared fda spec home use Kevin Patel MD Work Phone: Start: 06-08-2022 Gluc bld gluc mntr d ev cleared fda spec home use Kevin Patel MD Work Phone: Start: 06-07-2022 Gluc bld gluc mntr d ev cleared fda spec home use Shin Eason MD Work Phone: Start: 06-07-2022 Gluc bld gluc mntr d ev cleared fda spec home use Shin Eason MD Work Phone: Start: 06-07-2022 Gluc bld gluc mntr d ev cleared fda spec home use Shin Eason MD Work Phone: Start: 06-06-2022 Gluc bld gluc mntr d ev cleared fda spec home use Tin Carnes MD Work Phone: Start: 06-06-2022 Gluc bld gluc mntr d ev cleared fda spec home use Tin Carnes MD Work Phone: Start: 06-06-2022 Gluc bld gluc mntr d ev cleared fda spec home use Tin Carnes MD Work Phone: Start: 06-06-2022 Gluc bld gluc mntr d ev cleared fda spec home use Tin Carnes MD Work Phone: Start: 06-05-2022 Gluc bld gluc mntr d ev cleared fda spec home use Karen A Hayde DO Work Phone: Start: 06-05-2022 Gluc bld gluc mntr d ev cleared fda spec home use Karen A Hayde DO Work Phone: Start: 06-05-2022 Gluc bld gluc mntr d ev cleared fda spec home use Karen A Hayde DO Work Phone: Start: 06-05-2022 Gluc bld gluc mntr d ev cleared fda spec home use Karen A Hayde DO Work Phone: Start: 06-04-2022 Gluc bld gluc mntr d ev cleared fda spec home use Karen A Hayde DO Work Phone: Start: 06-04-2022 Gluc bld gluc mntr d ev cleared fda spec home use Karen A Hayde DO Work Phone: Start: 06-04-2022 Gluc bld gluc mntr d ev cleared fda spec home use Karen A Hayde DO Work Phone: Start: 06-04-2022 Gluc bld gluc mntr d ev cleared fda spec home use Karen A Hayde DO Work Phone: Start: 06-03-2022 Gluc bld gluc mntr d ev cleared fda spec home use Karen A Hayde DO Work Phone: Start: 06-03-2022 Gluc bld gluc mntr d ev cleared fda spec home use Karen A Hayde DO Work Phone: Start: 06-03-2022 Gluc bld gluc mntr d ev cleared fda spec home use Karen A Hayde DO Work Phone: Start: 06-03-2022 Gluc bld gluc mntr d ev cleared fda spec home use Karen Amber Lock DO Work Phone: Start: 06-02-2022 Gluc bld gluc mntr d ev cleared fda spec home use Karen Amber Rayos DO Work Phone: Start: 06-02-2022 Gluc bld gluc mntr d ev cleared fda spec home use Karen Amber Rayos DO Work Phone: Start: 06-02-2022 End: 06-02-2022 Gluc bld gluc mntr dev cleared fda spec home use Karen Amber Rayos DO Work Phone: Start: 06-01-2022 Gluc bld gluc mntr d ev cleared fda spec home use Karennella Lock DO Work Phone: Start: 06-01-2022 Gluc bld gluc mntr d ev cleared fda spec home use Karennella Lock DO Work Phone: Start: 06-01-2022 Gluc bld gluc mntr d ev cleared fda spec home use Karennella Lock DO Work Phone: Start: 06-01-2022 End: 06-01-2022 Gluc bld gluc mntr dev cleared fda spec home use Karennella Lock DO Work Phone: Start: 05-31-2022 Gluc bld gluc mntr d ev cleared fda spec home use Karennella Lock DO Work Phone: Start: 05-31-2022 Gluc bld gluc mntr d ev cleared fda spec home use Karen Amber Rayos DO Work Phone: Start: 05-31-2022 Gluc bld gluc mntr d ev cleared fda spec home use Karen Amber Rayos DO Work Phone: Start: 05-31-2022 Gluc bld gluc mntr d ev cleared fda spec home use Karen Amber Rayos DO Work Phone: Start: 05-31-2022 Gluc bld gluc mntr d ev cleared fda spec home use Karen A Hayde DO Work Phone: Start: 05-30-2022 Gluc bld gluc mntr d ev cleared fda spec home use Karen A Hayde DO Work Phone: Start: 05-30-2022 Gluc bld gluc mntr d ev cleared fda spec home use Karen A Hayde DO Work Phone: Start: 05-30-2022 Gluc bld gluc mntr d ev cleared fda spec home use Karen A Hayde DO Work Phone: Start: 05-30-2022 Gluc bld gluc mntr d ev cleared fda spec home use Karen A Hayde DO Work Phone: Start: 05-30-2022 Basic metabolic pane l calcium total Karen A Hayde DO Work Phone: Start: 05-29-2022 Gluc bld gluc mntr d ev cleared fda spec home use Karen A Hayde DO Work Phone: Start: 05-29-2022 Gluc bld gluc mntr d ev cleared fda spec home use Karen A Hayde DO Work Phone: Start: 05-29-2022 Gluc bld gluc mntr d ev cleared fda spec home use Karen A Hayde DO Work Phone: Start: 05-29-2022 Gluc bld gluc mntr d ev cleared fda spec home use Karen A Hayde DO Work Phone: Start: 05-28-2022 Gluc bld gluc mntr d ev cleared fda spec home use Karen A Hayde DO Work Phone: Start: 05-28-2022 Gluc bld gluc mntr d ev cleared fda spec home use Karen A Hayde DO Work Phone: Start: 05-28-2022 Gluc bld gluc mntr d ev cleared fda spec home use Karen A Hayde DO Work Phone: Start: 05-28-2022 Gluc bld gluc mntr d ev cleared fda spec home use Karen Lock DO Work Phone: Start: 05-27-2022 Gluc bld gluc mntr d ev cleared fda spec home use Kvng Monson MD Work Phone: Start: 05-27-2022 Gluc bld gluc mntr d ev cleared fda spec home use Kvng Monson MD Work Phone: Start: 05-27-2022 Gluc bld gluc mntr d ev cleared fda spec home use Kvng Monson MD Work Phone: Start: 05-27-2022 Gluc bld gluc mntr d ev cleared fda spec home use Kvng Monson MD Work Phone: Start: 05-26-2022 Gluc bld gluc mntr d ev cleared fda spec home use Kvng Monson MD Work Phone: Start: 05-26-2022 Gluc bld gluc mntr d ev cleared fda spec home use Kvng Monson MD Work Phone: Start: 05-26-2022 Gluc bld gluc mntr d ev cleared fda spec home use Kvng Monson MD Work Phone: Start: 05-26-2022 Gluc bld gluc mntr d ev cleared fda spec home use Kvng Monson MD Work Phone: Start: 05-25-2022 Gluc bld gluc mntr d ev cleared fda spec home use Kvng Monson MD Work Phone: Start: 05-25-2022 Gluc bld gluc mntr d ev cleared fda spec home use Kvng Monson MD Work Phone: Start: 05-25-2022 WOUND OSTOMY EVAL AN D TREAT Kvng Monson MD Work Phone: Start: 05-25-2022 Gluc bld gluc mntr d ev cleared fda spec home use Kvng Monson MD Work Phone: Start: 05-25-2022 Gluc bld gluc mntr d ev cleared fda spec home use Kvng Monson MD Work Phone: Start: 05-24-2022 Gluc bld gluc mntr d ev cleared fda spec home use Kvng Monson MD Work Phone: Start: 05-24-2022 Gluc bld gluc mntr d ev cleared fda spec home use Kvng Monson MD Work Phone: Start: 05-24-2022 Gluc bld gluc mntr d ev cleared fda spec home use Kvng Monson MD Work Phone: Start: 05-24-2022 Gluc bld gluc mntr d ev cleared fda spec home use Kvng Monson MD Work Phone: Start: 05-24-2022 Gluc bld gluc mntr d ev cleared fda spec home use Kvng Monson MD Work Phone: Start: 05-23-2022 Gluc bld gluc mntr d ev cleared fda spec home use Kvng Monson MD Work Phone: Start: 05-23-2022 Gluc bld gluc mntr d ev cleared fda spec home use Kvng Monson MD Work Phone: Start: 05-23-2022 Gluc bld gluc mntr d ev cleared fda spec home use Kvng Monson MD Work Phone: Start: 05-23-2022 Basic metabolic pane l calcium total Kvng Monson MD Work Phone: Start: 05-22-2022 Gluc bld gluc mntr d ev cleared fda spec home use Kvng Monson MD Work Phone: Start: 05-22-2022 Dup-scan xtr veins unilateral/limited study Kvng Monson MD Work Phone: Start: 05-22-2022 Gluc bld gluc mntr d ev cleared fda spec home use Kvng Monson MD Work Phone: Start: 05-22-2022 Gluc bld gluc mntr d ev cleared fda spec home use Kvng Monson MD Work Phone: Start: 05-22-2022 Gluc bld gluc mntr d ev cleared fda spec home use Kvng Monson MD Work Phone: Start: 05-21-2022 Gluc bld gluc mntr d ev cleared fda spec home use Kvng Monson MD Work Phone: Start: 05-21-2022 Gluc bld gluc mntr d ev cleared fda spec home use Kvng Monson MD Work Phone: Start: 05-21-2022 Gluc bld gluc mntr d ev cleared fda spec home use Kvng Monson MD Work Phone: Start: 05-21-2022 Gluc bld gluc mntr d ev cleared fda spec home use Kvng Monson MD Work Phone: Start: 05-20-2022 Gluc bld gluc mntr d ev cleared fda spec home use May U Nasreen GAMEZ Work Phone: Start: 05-20-2022 Gluc bld gluc mntr d ev cleared fda spec home use May U Nasreen GAMEZ Work Phone: Start: 05-20-2022 End: 05-20-2022 Gluc bld gluc mntr dev cleared fda spec home use May U Nasreen GAMEZ Work Phone: Start: 05-19-2022 Gluc bld gluc mntr d ev cleared fda spec home use May U Nasreen GAMEZ Work Phone: Start: 05-19-2022 Gluc bld gluc mntr d ev cleared fda spec home use March U Nasreen GAMEZ Work Phone: Start: 05-19-2022 Basic metabolic pane l calcium total March U Nasreen GAMEZ Work Phone: Start: 05-19-2022 Gluc bld gluc mntr d ev cleared fda spec home use March U Nasreen GAMEZ Work Phone: Start: 05-18-2022 Gluc bld gluc mntr d ev cleared fda spec home use March U Nasreen GAMEZ Work Phone: Start: 05-18-2022 Gluc bld gluc mntr d ev cleared fda spec home use March U Nasreen GAMEZ Work Phone: Start: 05-18-2022 Gluc bld gluc mntr d ev cleared fda spec home use March U Nasreen GAMEZ Work Phone: Start: 05-18-2022 Gluc bld gluc mntr d ev cleared fda spec home use March U Nasreen GAMEZ Work Phone: Start: 05-17-2022 Gluc bld gluc mntr d ev cleared fda spec home use March U Nasreen GAMEZ Work Phone: Start: 05-17-2022 Gluc bld gluc mntr d ev cleared fda spec home use March U Nasreen GAMEZ Work Phone: Start: 05-17-2022 Gluc bld gluc mntr d ev cleared fda spec home use March U Nasreen GAMEZ Work Phone: Start: 05-17-2022 Gluc bld gluc mntr d ev cleared fda spec home use March U Nasreen GAMEZ Work Phone: Start: 05-16-2022 Gluc bld gluc mntr d ev cleared fda spec home use March U Nasreen GAMEZ Work Phone: Start: 05-16-2022 Gluc bld gluc mntr d ev cleared fda spec home use March U Nasreen GAMEZ Work Phone: Start: 05-16-2022 Gluc bld gluc mntr d ev cleared fda spec home use March U Nasreen GAMEZ Work Phone: Start: 05-16-2022 Gluc bld gluc mntr d ev cleared fda spec home use March U Nasreen GAMEZ Work Phone: Start: 05-15-2022 Gluc bld gluc mntr d ev cleared fda spec home use March U Nasreen GAMEZ Work Phone: Start: 05-15-2022 Gluc bld gluc mntr d ev cleared fda spec home use March U Nasreen GAMEZ Work Phone: Start: 05-15-2022 Gluc bld gluc mntr d ev cleared fda spec home use March U Nasreen GAMEZ Work Phone: Start: 05-15-2022 Gluc bld gluc mntr d ev cleared fda spec home use March U Nasreen GAMEZ Work Phone: Start: 05-14-2022 Gluc bld gluc mntr d ev cleared fda spec home use March U Nasreen GAMEZ Work Phone: Start: 05-14-2022 Gluc bld gluc mntr d ev cleared fda spec home use March U Nasreen GAMEZ Work Phone: Start: 05-14-2022 Gluc bld gluc mntr d ev cleared fda spec home use March U Nasreen GAMEZ Work Phone: Start: 05-14-2022 Gluc bld gluc mntr d ev cleared fda spec home use March U Nasreen GAMEZ Work Phone: Start: 05-14-2022 Basic metabolic pane l calcium total Shin Eason MD Work Phone: Start: 05-13-2022 Gluc bld gluc mntr d ev cleared fda spec home use Marilin Leon DO Work Phone: Start: 05-13-2022 Gluc bld gluc mntr d ev cleared fda spec home use Marilin Leon DO Work Phone: Start: 05-13-2022 End: 05-13-2022 Basic metabolic panel calcium total Marilin Queenonthorace PARIS Work Phone: Start: 05-13-2022 Gluc bld gluc mntr d ev cleared fda spec home use Marilin Donovanz Work Phone: Start: 05-12-2022 Gluc bld gluc mntr d ev cleared fda spec home use Marilin Donovanz DO Work Phone: Start: 05-12-2022 Gluc bld gluc mntr d ev cleared fda spec home use Marilin Donovanz DO Work Phone: Start: 05-12-2022 Gluc bld gluc mntr d ev cleared fda spec home use Marilin Donovanz DO Work Phone: Start: 05-12-2022 Gluc bld gluc mntr d ev cleared fda spec home use Marilin Queenontz Work Phone: Start: 05-11-2022 Gluc bld gluc mntr d ev cleared fda spec home use Shin Eason MD Work Phone: Start: 05-11-2022 Gluc bld gluc mntr d ev cleared fda spec home use Shin Eason MD Work Phone: Start: 05-11-2022 Gluc bld gluc mntr d ev cleared fda spec home use Shin Eason MD Work Phone: Start: 05-11-2022 Gluc bld gluc mntr d ev cleared fda spec home use Shin Eason MD Work Phone: Start: 05-10-2022 End: 05-10-2022 Basic metabolic panel calcium total Shin Eason MD Work Phone: Start: 05-09-2022 Gluc bld gluc mntr d ev cleared fda spec home use Shin Eason MD Work Phone: Start: 05-09-2022 Gluc bld gluc mntr d ev cleared fda spec home use Shin Eason MD Work Phone: Start: 05-09-2022 Gluc bld gluc mntr d ev cleared fda spec home use Shin Eason MD Work Phone: Start: 05-09-2022 Gluc bld gluc mntr d ev cleared fda spec home use Shin Eason MD Work Phone: Start: 05-08-2022 Gluc bld gluc mntr d ev cleared fda spec home use May U Nasreen GAMEZ Work Phone: Start: 05-08-2022 Gluc bld gluc mntr d ev cleared fda spec home use May U Nasreen GAMEZ Work Phone: Start: 05-08-2022 HC WBC ANTIBODY IDENTIFICATION - LEUKOCYTE AB/ANTI NEUTROPHIL Brenda Malloy MD Work Phone: Start: 05-08-2022 Rheumatoid factor quantitative Brenda Malloy MD Work Phone: Start: 05-08-2022 Gluc bld gluc mntr d ev cleared fda spec home use May U Nasreen GAMEZ Work Phone: Start: 05-08-2022 Gluc bld gluc mntr d ev cleared fda spec home use May U Nasreen GAMEZ Work Phone: Start: 05-07-2022 Gluc bld gluc mntr d ev cleared fda spec home use May U Nasreen GAMEZ Work Phone: Start: 05-07-2022 Gluc bld gluc mntr d ev cleared fda spec home use May U Nasreen GAMEZ Work Phone: Start: 05-07-2022 End: 05-07-2022 Gluc bld gluc mntr dev cleared fda spec home use March U Nasreen GAMEZ Work Phone: Start: 05-06-2022 Gluc bld gluc mntr d ev cleared fda spec home use May U Nasreen GAMEZ Work Phone: Start: 05-06-2022 Ct head/brain w/o co ntrast material Zaid Leon MD Work Phone: Start: 05-06-2022 C-reactive protein Arie Malloy MD Work Phone: Start: 05-06-2022 End: 05-06-2022 Comprehensive metabolic panel Zaid Leon MD Work Phone: Start: 05-06-2022 Gluc bld gluc mntr d ev cleared fda spec home use March U Nasreen GAMEZ Work Phone: Start: 05-06-2022 Gluc bld gluc mntr d ev cleared fda spec home use March U Nasreen GAMEZ Work Phone: Start: 05-05-2022 Gluc bld gluc mntr d ev cleared fda spec home use March U Nasreen GAMEZ Work Phone: Start: 05-05-2022 Gluc bld gluc mntr d ev cleared fda spec home use March U Nasreen GAMEZ Work Phone: Start: 05-05-2022 Gluc bld gluc mntr d ev cleared fda spec home use March U Nasreen GAMEZ Work Phone: Start: 05-05-2022 Gluc bld gluc mntr d ev cleared fda spec home use March U Nasreen GAMEZ Work Phone: Start: 05-04-2022 Gluc bld gluc mntr d ev cleared fda spec home use March U Nasreen GAMEZ Work Phone: Start: 05-04-2022 Gluc bld gluc mntr d ev cleared fda spec home use March U Nasreen GAMEZ Work Phone: Start: 05-04-2022 Gluc bld gluc mntr d ev cleared fda spec home use March U Nasreen GAMEZ Work Phone: Start: 05-04-2022 Gluc bld gluc mntr d ev cleared fda spec home use March U Nasreen AGMEZ Work Phone: Start: 05-03-2022 Gluc bld gluc mntr d ev cleared fda spec home use March U Nasreen GAMEZ Work Phone: Start: 05-03-2022 Gluc bld gluc mntr d ev cleared fda spec home use March U Nasreen GAMEZ Work Phone: Start: 05-03-2022 Gluc bld gluc mntr d ev cleared fda spec home use March U Nasreen GAMEZ Work Phone: Start: 05-03-2022 Gluc bld gluc mntr d ev cleared fda spec home use March U Nasreen GAMEZ Work Phone: Start: 05-03-2022 Gluc bld gluc mntr d ev cleared fda spec home use Blair Perdomo MD Work Phone: Start: 05-02-2022 Gluc bld gluc mntr d ev cleared fda spec home use Blair Perdomo MD Work Phone: Start: 05-02-2022 WOUND OSTOMY EVAL AN D TREAT Blair Perdomo MD Work Phone: Start: 05-02-2022 End: 05-02-2022 Gluc bld gluc mntr dev cleared fda spec home use Seun Medina DO Work Phone: Start: 05-02-2022 Gluc bld gluc mntr d ev cleared fda spec home use Rufus Baker MD Work Phone: Start: 05-02-2022 Culture bacterial quanttative colony count urine Blair Perdomo MD Work Phone: Start: 05-02-2022 Drug tst prsmv instr mnt chem analyzers pr date Ant Arredondo DO Work Phone: Start: 05-02-2022 Basic metabolic pane l calcium total Ant Arredondo DO Work Phone: Start: 05-02-2022 HC POC [id number] SARS ( COVID) + FLU A & B Ant Arredondo DO Work Phone: Start: 04-27-2022 POLYSOMNOGRAPHY Lamin Rey MD Work Phone: Start: 04-09-2022 Debridement subcutan eous tissue 20 sq cm/< Boles Shafiek DPM Work Phone: Start: 03-19-2022 Debridement muscle & fascia 20 sq cm/< Boles Shafiek DPM Work Phone: Start: 02-26-2022 Debridement muscle & fascia 20 sq cm/< Boles Shafiek DPM Work Phone: Start: 02-12-2022 Debridement subcutan eous tissue 20 sq cm/< Boles Shafiek DPM Work Phone: Start: 02-05-2022 Ophthalmic examinati on and evaluation Fatmata Cosby MD Work Phone: Start: 01-29-2022 Debridement muscle & fascia 20 sq cm/< Boles Shafiek DPM Work Phone: Start: 01-17-2022 SARS-CoV-2 (COVID-19 ) RNA [Presence] in Respiratory specimen by PAT with probe detection Johnathan Zepeda DO Work Phone: Start: 01-17-2022 Glucose measurement [facility] Work Phone: Start: 01-17-2022 Glucose measurement [facility] Work Phone: Start: 01-17-2022 Creatinine blood Juju Russell [facility],PharmD Work Phone: Start: 01-16-2022 Glucose measurement [facility] Work Phone: Start: 01-16-2022 Glucose measurement [facility] Work Phone: Start: 01-16-2022 Glucose measurement [facility] Work Phone: Start: 01-16-2022 Glucose measurement [facility] Work Phone: Start: 01-16-2022 Glucose measurement [facility] Work Phone: Start: 01-16-2022 Creatinine blood Juju Russell [facility],PharmD Work Phone: Start: 01-15-2022 [facility]: Start: 01-15-2022 Glucose measurement [facility] Work Phone: Start: 01-15-2022 Glucose measurement [facility] Work Phone: Start: 01-15-2022 [facility] Work [facility]: Start: 01-15-2022 Basic metabolic pane l calcium total Adalberto Adetayo Adegboye DO Work Phone: Start: 01-14-2022 Drug screen quantita tive vancomycin Carl Lott [facility],Pharm[facility] Start: 01-14-2022 Glucose measurement [facility] Work Phone: Start: 01-14-2022 Glucose measurement [facility] Work Phone: Start: 01-14-2022 Glucose measurement [facility] Work Phone: Start: 01-14-2022 Glucose measurement [facility] Work Phone: Start: 01-14-2022 Basic metabolic pane l calcium total Adalberto Adetayo Adegboye DO Work Phone: Start: 01-13-2022 Glucose measurement [facility] Work Phone: Start: 01-13-2022 Glucose measurement [facility] Work Phone: Start: 01-13-2022 Glucose measurement [facility] Work Phone: Start: 01-13-2022 Glucose measurement [facility] Work Phone: Start: 01-13-2022 Creatinine blood Juju Russell [facility],Pharm[facility] Work Phone: Start: 01-13-2022 Glucose measurement [facility] Work Phone: Start: 01-13-2022 Adult depression scr eening assessment Boles Shafiek DPM Work Phone: Start: 01-12-2022 Glucose measurement [facility] Work Phone: Start: 01-12-2022 Drug screen quantita tive vancomycin Norman Lopez [facility],Pharm[facility] Work Phone: Start: 01-12-2022 Glucose measurement [facility] Work Phone: Start: 01-12-2022 End: 01-12-2022 Cul bact xcpt urine blood/stool aerobic isol Boles Shafiek DPM Work Phone: Start: 01-12-2022 End: 01-12-2022 AMPUTATION TOE(S) Boles Shafiek DPM Work Phone: Start: 01-12-2022 End: 01-12-2022 INCISION AND DRAINAGE FOOT/ANKLE Boles Shafiek DPM Work Phone: Start: 01-12-2022 Glucose measurement [facility] Work Phone: Start: 01-12-2022 Glucose measurement [facility] Work Phone: Start: 01-12-2022 Basic metabolic pane l calcium total Cedric Tan DPM Work Phone: Start: 01-11-2022 Glucose measurement [facility] Work Phone: Start: 01-11-2022 Glucose measurement [facility] Work Phone: Start: 01-11-2022 Glucose measurement [facility] Work Phone: Start: 01-11-2022 Glucose measurement [facility] Work Phone: Start: 01-11-2022 Basic metabolic pane l calcium total Adalberto Doylee DO Work Phone: Start: 01-10-2022 Glucose measurement [facility] Work Phone: Start: 01-10-2022 Glucose measurement [facility] Work Phone: Start: 01-10-2022 Duplex scan extracra nial art compl bi study Christine Marisa PA-C Work Phone: Start: 01-10-2022 Radiologic exam ches t single view Adalberto Wheatleygboye DO Work Phone: Start: 01-10-2022 Glucose measurement [facility] Work Phone: Start: 01-10-2022 Glucose measurement [facility] Work Phone: Start: 01-10-2022 Basic metabolic pane l calcium total Francapau Earl WEB MANAGER Work Phone: Start: 01-10-2022 Lipid panel Christine Eliazar veloz PA-C Work Phone: Start: 01-09-2022 Glucose measurement [facility] Work Phone: Start: 01-09-2022 End: 01-09-2022 Mri lower extrem oth/thn jt w/o contr matrl Cedric Tan DPM Work Phone: Start: 01-09-2022 Dup-scan lxtr art/ar tl bpgs compl bi study Cedric Tan DPM Work Phone: Start: 01-09-2022 Glucose measurement [facility] Work Phone: Start: 01-09-2022 Non-invas physiologi c std extremity art 2 level Cedric Tan DPM Work Phone: Start: 01-09-2022 VENTURI MASK OXYGEN [facility] Padma Earl WEB MANAGER Work Phone: Start: 01-09-2022 Cul bact xcpt urine blood/stool aerobic isol Cedric Tan DP Work Phone: Start: 01-09-2022 Cyanocobalamin vitam in b-12 Franca Earl WEB MANAGER Work Phone: Start: 01-09-2022 SARS-CoV-2 (COVID-19 ) RNA [Presence] in Respiratory specimen by PAT with probe detection Garth Torrez MD Work Phone: Start: 01-09-2022 Radex foot complete minimum 3 views Jef Barclay [facility] Work Phone: Start: 01-09-2022 Culture bacterial bl ood aerobic w/id isolates Jef Barclay [facility] Work Phone: Start: 01-09-2022 Basic metabolic pane l calcium total Jef Barclay [facility] Work Phone: Start: 01-09-2022 C-reactive protein Chri ken Barclay [facility] Work Phone: Start: 01-09-2022 STORY TOP Garth Torrez MD Work Phone: Start: 01-09-2022 LAVENDER TOP Garth Torrez MD Work Phone: Start: 01-09-2022 LIGHT BLUE TOP Garth Torrez MD Work Phone: Start: 01-09-2022 MINT GREEN TOP Garht Torrez MD Work Phone: Start: 01-09-2022 RAINBOW DRAW Garth Torrez MD Work Phone: Start: 12-05-2021 DIABETES EYE EXAM Barry Subramanian MD Work Phone: Start: 10-15-2021 Culture bacterial quanttative colony count urine Magdalena Nuno DO Work Phone: Start: 10-15-2021 Basic metabolic pane l calcium total Magdalena Nuno DO Work Phone: Start: 10-15-2021 CBC W Auto Different ial panel - Blood Magdalena Nuno DO Work Phone: Start: 06-19-2021 Ophthalmic examinati on and evaluation Ramana Jaramillo DPM Work Phone: Start: 10-22-2020 Glucose [Mass/volume ] in Blood Padmini Shin [place] Work Phone: Start: 10-22-2020 Glucose [Mass/volume ] in Blood Padmini Shin [place] Work Phone: Start: 10-22-2020 Glucose [Mass/volume ] in Blood [facility] Work Phone: Start: 10-22-2020 COVID-19/INFLUENZA A ,B MOLECULAR Carlynisabella Nguyen Work Phone: Start: 10-21-2020 Glucose [Mass/volume ] in Blood [facility] Work Phone: Start: 10-21-2020 Glucose [Mass/volume ] in Blood [facility] Work Phone: Start: 10-21-2020 Glucose [Mass/volume ] in Blood [facility] Work Phone: Start: 10-21-2020 Echocardiography Marco Quintana Work Phone: Start: 10-21-2020 Radionuclide myocard ial perfusion study Marco Quintana Work Phone: Start: 10-21-2020 Glucose [Mass/volume ] in Blood [facility] Work Phone: Start: 10-20-2020 Glucose [Mass/volume ] in Blood [facility] Work Phone: Start: 10-20-2020 Glucose [Mass/volume ] in Blood [facility] Work Phone: Start: 10-20-2020 Glucose [Mass/volume ] in Blood [facility] Work Phone: Start: 10-20-2020 Glucose [Mass/volume ] in Blood [facility] Work Phone: Start: 10-20-2020 Complete blood count (hemogram) panel - Blood by Automated count Padminisonia Ann [employer] Work Phone: Start: 10-20-2020 Troponin measurement De rebecca Nguyen Work Phone: Start: 10-19-2020 Glucose [Mass/volume ] in Blood [facility] Work Phone: Start: 10-19-2020 End: 10-19-2020 12 lead ECG Draw Frame Tender Generic Start: 10-19-2020 Radiologic exam ches t single view Olga Lidiaisabella Jones Work Phone: Start: 10-19-2020 Bacteria identified in Blood by Culture Eden Troy Work Phone: Start: 10-19-2020 Bacteria identified in Unspecified specimen by Aerobe culture Olga Lidia Jones Work Phone: Start: 10-19-2020 Complete blood count with white cell differential, automated Olga Lidia K Nirmalarye Work Phone: Start: 10-19-2020 Complete blood count with white cell differential, manual Olga Lidia K Nirmalaryradha Work Phone: Start: 10-19-2020 Comprehensive metabo lic 2000 panel - Serum or Plasma Olga Lidia Jones Work Phone: Start: 10-19-2020 STORY TOP Eden pretty Work Phone: Start: 10-19-2020 INR in Platelet poor plasma by Coagulation assay Padmini Shin [employer] Work Phone: Start: 10-19-2020 Lactate [Moles/volum e] in Serum or Plasma Eden Troy Work Phone: Start: 10-19-2020 LAVENDER TOP Eden SAntonino pretty Work Phone: Start: 10-19-2020 LIGHT BLUE TOP Eden Troy Work Phone: Start: 10-19-2020 MINT GREEN TOP Eden Troy Work Phone: Start: 10-19-2020 PINK TOP Eden lundch Work Phone: Start: 10-19-2020 RAINBOW DRAW Eden S. Margaret lundch Work Phone: Start: 10-19-2020 Troponin measurement De rebecca Shaikh Wendy Work Phone: Start: 10-19-2020 Urinalysis Olga Lidia Margaret chamorro Work Phone: Start: 10-19-2020 URINE STORY CONTAINER Me kvng Troy Work Phone: Start: 10-19-2020 URINE YELLOW CONTAINER Eden Troy Work Phone: Start: 10-17-2020 COVID-19/INFLUENZA A ,B MOLECULAR Franco Gracia Work Phone: Start: 10-17-2020 CT of urinary tract Tyrone Gracia Work Phone: Start: 10-17-2020 Basic metabolic 2000 panel - Serum or Plasma Franco Gracia Work Phone: Start: 10-17-2020 Complete blood count with white cell differential, automated Franco Gracia Work Phone: Start: 10-17-2020 Complete blood count with white cell differential, manual Franco Gracia Work Phone: Start: 09-13-2020 Urinalysis macro (dipstick) panel - Urine Jamarcus Manley Work Phone: Start: 08-15-2020 Glucose [Mass/volume ] in Blood [facility] Start: 08-15-2020 COVID-19, MOLECULAR Cat Troy Work Phone: Start: 08-14-2020 Ct abdomen & pelvis w/o contrast material Eden Troy Work Phone: Start: 08-14-2020 Basic metabolic 2000 panel - Serum or Plasma Eden Troy Work Phone: Start: 08-14-2020 Complete blood count with white cell differential, automated Eden Troy Work Phone: Start: 08-14-2020 Complete blood count with white cell differential, manual Eden Troy Work Phone: Start: 08-14-2020 Urinalysis Eden pretty Work Phone: Start: 08-06-2020 Glucose [Mass/volume ] in Blood Patrick Madrigalqui Work Phone: Start: 08-06-2020 Glucose [Mass/volume ] in Blood [facility] Work Phone: Start: 08-06-2020 Basic metabolic 2000 panel - Serum or Plasma Tung ObsEva Work Phone: Start: 08-06-2020 Complete blood count (hemogram) panel - Blood by Automated count Tung Siddharth Work Phone: Start: 08-05-2020 Glucose [Mass/volume ] in Blood [facility] Work Phone: Start: 08-05-2020 Glucose [Mass/volume ] in Blood [facility] Work Phone: Start: 08-05-2020 Glucose [Mass/volume ] in Blood [facility] Work Phone: Start: 08-05-2020 Glucose [Mass/volume ] in Blood [facility] Work Phone: Start: 08-05-2020 Glucose [Mass/volume ] in Blood [facility] Work Phone: Start: 08-05-2020 Basic metabolic 2000 panel - Serum or Plasma Tung Siddharth Work Phone: Start: 08-05-2020 Complete blood count (hemogram) panel - Blood by Automated count Tung Siddharth Work Phone: Start: 08-05-2020 INR in Platelet poor plasma by Coagulation assay Tung Siddharth Work Phone: Start: 08-04-2020 Glucose [Mass/volume ] in Blood [facility] Work Phone: Start: 08-04-2020 Glucose [Mass/volume ] in Blood [facility] Work Phone: Start: 08-04-2020 Glucose [Mass/volume ] in Blood [facility] Work Phone: Start: 08-04-2020 Glucose [Mass/volume ] in Blood [facility] Work Phone: Start: 08-03-2020 Glucose [Mass/volume ] in Blood [facility] Work Phone: Start: 08-03-2020 Glucose [Mass/volume ] in Blood [facility] Work Phone: Start: 08-03-2020 Glucose [Mass/volume ] in Blood [facility] Work Phone: Start: 08-03-2020 Glucose [Mass/volume ] in Blood [facility] Work Phone: Start: 08-03-2020 Creatinine [Mass/vol ume] in Serum or Plasma Shawn Xiao Start: 08-02-2020 Glucose [Mass/volume ] in Blood [facility] Work Phone: Start: 08-02-2020 Glucose [Mass/volume ] in Blood [facility] Work Phone: Start: 08-02-2020 Glucose [Mass/volume ] in Blood [facility] Work Phone: Start: 08-02-2020 Glucose [Mass/volume ] in Blood [facility] Work Phone: Start: 08-02-2020 Creatinine [Mass/vol ume] in Serum or Plasma Shawn Xiao Start: 08-01-2020 Glucose [Mass/volume ] in Blood [facility] Work Phone: Start: 08-01-2020 Glucose [Mass/volume ] in Blood [facility] Work Phone: Start: 08-01-2020 Glucose [Mass/volume ] in Blood [facility] Work Phone: Start: 08-01-2020 Glucose [Mass/volume ] in Blood [facility] Work Phone: Start: 08-01-2020 Basic metabolic 2000 panel - Serum or Plasma Mirta Mills Work Phone: Start: 08-01-2020 Vancomycin [Mass/vol ume] in Serum or Plasma Clairjose Davey Start: 07-31-2020 Glucose [Mass/volume ] in Blood [facility] Work Phone: Start: 07-31-2020 Glucose [Mass/volume ] in Blood [facility] Work Phone: Start: 07-31-2020 Creatinine [Mass/vol ume] in Urine Mirta Mills Work Phone: Start: 07-31-2020 Sodium [Moles/volume ] in Urine Mirta Mills Work Phone: Start: 07-31-2020 Urinalysis Mirta Mills Work Phone: Start: 07-31-2020 Vancomycin [Mass/vol ume] in Serum or Plasma --trough Shawn Xiao Start: 07-31-2020 Glucose [Mass/volume ] in Blood [facility] Work Phone: Start: 07-31-2020 Glucose [Mass/volume ] in Blood [facility] Work Phone: Start: 07-31-2020 Basic metabolic 2000 panel - Serum or Plasma Mirta Mills Work Phone: Start: 07-31-2020 Creatinine [Mass/vol ume] in Serum or Plasma Shawn Xiao Start: 07-30-2020 Glucose [Mass/volume ] in Blood [facility] Work Phone: Start: 07-30-2020 Glucose [Mass/volume ] in Blood [facility] Work Phone: Start: 07-30-2020 Glucose [Mass/volume ] in Blood [facility] Work Phone: Start: 07-30-2020 Creatinine [Mass/vol ume] in Serum or Plasma Shawn Xiao Start: 07-30-2020 Glucose [Mass/volume ] in Blood [facility] Work Phone: Start: 07-29-2020 XR OR FLUOROSCOPY TIME Jet Calvillo Work Phone: Start: 07-29-2020 Aerobic microbial culture Jet Calvillo Work Phone: Start: 07-29-2020 Culture bacterial an y source anaerobic iso&id Jet Calvillo Work Phone: Start: 07-29-2020 Procedure on tissue specimen Jet Calvillo Work Phone: Start: 07-29-2020 End: 07-29-2020 INCISION AND DRAINAGE FOOT/ANKLE Jet Calvillo Work Phone: Start: 07-29-2020 End: 07-29-2020 Glucose [Mass/volume] in Blood Generic [facility] Work Phone: Start: 07-29-2020 Basic metabolic 2000 panel - Serum or Plasma Mirta Mills Work Phone: Start: 07-29-2020 Complete blood count (hemogram) panel - Blood by Automated count Mirta Mills Work Phone: Start: 07-29-2020 INR in Platelet poor plasma by Coagulation assay Nate Cazares Work Phone: Start: 07-28-2020 Glucose [Mass/volume ] in Blood Generic [facility] Work Phone: Start: 07-28-2020 Glucose [Mass/volume ] in Blood Generic [facility] Work Phone: Start: 07-28-2020 Glucose [Mass/volume ] in Blood Generic [facility] Work Phone: Start: 07-28-2020 Glucose [Mass/volume ] in Blood Generic [facility] Work Phone: Start: 07-28-2020 Basic metabolic 2000 panel - Serum or Plasma Mirta Mills Work Phone: Start: 07-28-2020 Complete blood count (hemogram) panel - Blood by Automated count Mirta Mills Work Phone: Start: 07-28-2020 Vancomycin [Mass/vol ume] in Serum or Plasma --trough Azul Ortiz Start: 07-27-2020 Glucose [Mass/volume ] in Blood Generic [facility] Work Phone: Start: 07-27-2020 Glucose [Mass/volume ] in Blood Generic [facility] Work Phone: Start: 07-27-2020 Glucose [Mass/volume ] in Blood Generic [facility] Work Phone: Start: 07-27-2020 Non-invas physiologi c std extremity art 2 level Patrick Mayo Work Phone: Start: 07-27-2020 Dup-scan lxtr art/ar tl bpgs uni/lmtd study Patrick Mayo Work Phone: Start: 07-27-2020 Glucose [Mass/volume ] in Blood Generic [facility] Work Phone: Start: 07-27-2020 Complete blood count (hemogram) panel - Blood by Automated count Patrick Mayo Work Phone: Start: 07-27-2020 Comprehensive metabo lic 2000 panel - Serum or Plasma Patrick Mayo Work Phone: Start: 07-27-2020 Hemoglobin A1c/Hemoglobin.total in Blood Patrick Mayo Work Phone: Start: 07-27-2020 INR in Platelet poor plasma by Coagulation assay Patrick Mayo Work Phone: Start: 07-27-2020 Magnesium [Mass/volu me] in Serum or Plasma Patrick Mayo Work Phone: Start: 07-26-2020 End: 07-26-2020 Mri lower extrem oth/thn jt w/o contr matrl Tung Siddharth Work Phone: Start: 07-26-2020 End: 07-26-2020 Glucose [Mass/volume] in Blood Generic [facility] Work Phone: Start: 07-26-2020 Glucose [Mass/volume ] in Blood Generic [facility] Work Phone: Start: 07-26-2020 12 lead ECG Patrick Strong venecia CarusoMayo Work Phone: Start: 07-26-2020 COVID-19, MOLECULAR Mat jayce Rafi Espino Work Phone: Start: 07-26-2020 Aerobic microbial culture Adalberto Espino Work Phone: Start: 07-26-2020 X-ray of left foot Nico mervatcharlene Espino Work Phone: Start: 07-26-2020 End: 07-26-2020 Bacteria identified in Blood by Culture Adalberto Espino Work Phone: Start: 07-26-2020 Basic metabolic 2000 panel - Serum or Plasma Adalberto Espino Work Phone: Start: 07-26-2020 C reactive protein [Mass/volume] in Serum or Plasma Adalberto Espino Work Phone: Start: 07-26-2020 Complete blood count with white cell differential, automated Adalberto Espino Work Phone: Start: 07-26-2020 Complete blood count with white cell differential, manual Adalberto Espino Work Phone: Start: 07-26-2020 Erythrocyte sediment ation rate by Westergren method Adalberto Espino Work Phone: Start: 07-26-2020 Lactate [Moles/volum e] in Serum or Plasma Adalberto Espino Work Phone: Start: 07-26-2020 3 comp foot exam completed Generic [facility] Amputation above-knee Lauren Chowdary Work Phone: 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 Start: 2026 Pneumococcal Vaccine: 65+ Years (1 of 1 - PPSV23) Pneumococcal Vaccine: 65+ Years (1 of 1 - PPSV23) [facility] Start: 2026 Pneumococcal Vaccine: Ped or At-Risk (2 of 2 - PPSV23) Pneumococcal Vaccine: Ped or At-Risk (2 of 2 - PPSV23) [facility] Start: 2026 Pneumococcal Vaccine: Pediatrics (0 to 5 Years) and At-Risk Patients (6 to 64 Years) (2 of 2 - PPSV23) Pneumococcal Vaccine: Pediatrics (0 to 5 Years) and At-Risk Patients (6 to 64 Years) (2 of 2 - PPSV23) [facility] Start: 10-18-2024 DTaP,Tdap,and Td Vaccines (2 - Td or Tdap) DTaP,Tdap,and Td Vaccines (2 - Td or Tdap) [facility] Start: 10-18-2024 DTaP/Tdap/Td Vaccines (2 - Td or Tdap) DTaP/Tdap/Td Vaccines (2 - Td or Tdap) [facility] Start: 10-18-2024 DTaP/Tdap/Td Vaccines (2 - Td) DTaP/Tdap/Td Vaccines (2 - Td) [facility] Start: 10-18-2024 Tetanus vaccination Tetanus: Every 10yrs [facility] Start: 10-18-2024 [facility] Start: 09-13-2024 Glaucoma screening Diabetes: Retinopathy Screening [facility] Start: 08-19-2024 End: 08-19-2024 Patient encounter procedure 08/19/2024 10:30 AM EDT Office Visit [facility] [address] [place] [address] Jayme De MD [address] [facility] [address] [place] [address] [facility] Start: 01-15-2024 ambulatory Facility:[facility] Start: 12-19-2023 ambulatory Facility:[id number] Start: 12-02-2023 End: 12-02-2023 Patient encounter procedure 12/02/2023 2:15 PM EST Office Visit [facility] [address] [place] [address] [place] [address] [place] [address] [facility] Start: 11-12-2023 FUV, Provider: Jayme De, Status: Pen, Time: 10:10 AM FUV, Provider: Jayme De, Status: Pen, Time: 10:10 AM [facility] Work Phone: Start: 07-05-2023 Influenza vaccination Influenza Vaccine (#1) [facility] Start: 06-18-2023 Hypertension/CHF/CAD Annual BMP Blood Test Hypertension/CHF/CAD Annual BMP Blood Test [facility] Start: 05-06-2023 Hypertension/CHF/CAD Annual BMP Blood Test Hypertension/CHF/CAD Annual BMP Blood Test [facility] Start: 02-05-2023 Glaucoma screening Ophthalmology Exam [facility] Start: 02-05-2023 Ophthalmic examination and evaluation Ophthalmology Exam [facility] Start: 01-15-2023 Hypertension/CHF/CAD Annual BMP Blood Test Hypertension/CHF/CAD Annual BMP Blood Test [facility] Start: 01-13-2023 Depression screening using PHQ-9 (Patient Health Questionnaire 9) score Depression Screening (PHQ-2/9) [facility] Start: 12-05-2022 Diabetes: Annual Retina Eye Exam Diabetes: Annual Retina Eye Exam [facility] Start: 10-26-2022 End: 10-26-2022 Patient encounter procedure 10/26/2022 Office Visit Vascular Surgery Fatmata Cosby MD [address] [address] [facility] Start: 10-23-2022 End: 10-23-2022 Patient encounter procedure 10/23/2022 Appointment Cardiology Fatmata Cosby MD [address] [facility] [address] [place] [address] [facility] Start: 10-15-2022 Hypertension/CHF/CAD Annual BMP Blood Test Hypertension/CHF/CAD Annual BMP Blood Test [facility] Start: 09-25-2022 End: 03-25-2024 Duplex scan of lower limb arteries Ultrasound duplex arterial legs bilat Vascular Ultrasound Routine PAD (peripheral artery disease) (HCC) Expected: 09/25/2022 (Approximate), Expires: 03/25/2024 [facility] Work Phone: Comment on above: Expected: 09/25/2022 (Approximate), Expi res: 03/25/2024 Start: 09-25-2022 End: 03-25-2024 US Doppler ankle/brachial index US Doppler ankle/brachial index Vascular Ultrasound Routine PAD (peripheral artery disease) (HCC) Expected: 09/25/2022 (Approximate), Expires: 03/25/2024 [facility] Comment on above: Expected: 09/25/2022 (Approximate), Expi res: 03/25/2024 Start: 09-09-2022 Referral to psychiatrist Mary Jamison [facility] Start: 07-12-2022 Hemoglobin A1c measurement [facility] Start: 07-05-2022 Influenza vaccination [facility] Start: 07-05-2022 [facility] Start: 06-19-2022 Ophthalmic examination and evaluation Ophthalmology Exam [facility] Start: 05-02-2022 End: 05-02-2022 Patient encounter procedure 05/02/2022 Procedure visit Sleep [facility] Start: 05-02-2022 Diabetic foot examination [facility] Start: 04-30-2022 End: 04-30-2022 Patient encounter procedure 04/30/2022 Office Visit Wound Care Ramana Jaramillo DPM [address] [place] [address] [facility] Start: 04-25-2022 End: 04-25-2022 Patient encounter procedure 04/25/2022 Procedure visit Sleep [facility] Start: 04-13-2022 End: 04-13-2022 Patient encounter procedure 04/13/2022 Office Visit Vascular Surgery Fatmata Cosby MD [address] [address] [facility] Start: 04-09-2022 End: 04-09-2022 Patient encounter procedure 04/09/2022 Office Visit Wound Care Ramana Jaramillo DPM [address] [place] [phone] [facility] Start: 03-19-2022 End: 03-19-2022 Patient encounter procedure 03/19/2022 Office Visit Wound Care Ramana Jaramillo DPM [address] [place] [address] [facility] Start: 03-02-2022 End: 03-02-2022 Patient encounter procedure 03/02/2022 Office Visit Vascular Surgery Fatmata Cosby MD [address] [address] [facility] Start: 02-26-2022 End: 02-26-2022 Patient encounter procedure 02/26/2022 Office Visit Wound Care Ramana Jaramillo DPM [address] [place] [phone] [facility] Start: 02-12-2022 End: 02-12-2022 Patient encounter procedure 02/12/2022 Office Visit Wound Care Ramana Jaramillo, HAYDENM [address] [place] [phone] [facility] Start: 11-01-2021 Hemoglobin A1c measurement Diabetes: Hemoglobin A1C [facility] Start: 07-31-2021 COVID-19 Vaccine (3 - Booster for Moderna series) COVID-19 Vaccine (3 - Booster for Moderna series) [facility] Start: 07-31-2021 [facility] Start: 07-26-2021 Diabetic foot examination Foot Exam [facility] Start: 07-25-2021 End: 07-25-2021 Patient encounter procedure 07/25/2021 Office Visit Vascular Surgery Paul Gaona, [address] [address] [facility] Start: 07-05-2021 Influenza vaccination Influenza Vaccine (#1) [facility] Start: 04-25-2021 COVID-19 Vaccine (3 - Booster for Moderna series) COVID-19 Vaccine (3 - Booster for Moderna series) [facility] Start: 01-24-2021 HbA1c (Bld) [Mass fraction] A1C [facility] Start: 12-13-2020 End: 12-13-2020 Office Visit 12/13/2020 Office Visit Urology Jamarcus Manley MD [address] [place] [address] [phone] [facility] Start: 08-19-2020 End: 08-19-2020 Appointment [facility] Home Health Start: 08-16-2020 End: 08-16-2020 Home Care Visit [facility] Home [facility] Start: 08-15-2020 End: 08-15-2020 Home Care Visit 08/15/2020 Home Care Visit Home Health Services Joy Sanchez LISW [facility] Start: 08-13-2020 End: 08-13-2020 Home Care Visit 08/13/2020 Home Care Visit Home Health Services Barry Rodrigues RN [facility] Start: 08-12-2020 End: 08-13-2020 Home Care Visit [facility] Start: 08-11-2020 End: 08-11-2020 Home Care Visit 08/11/2020 Home Care Visit Home Health Services Joy Sanchez LIS[facility] Start: 08-10-2020 End: 08-10-2020 Home Care Visit 08/10/2020 Home Care Visit Home Health Services Srinivasan Casas RN [facility] Start: 08-09-2020 End: 08-09-2020 Appointment 08/09/2020 Appointment Home Health Services Renu Avelar, GRISEL [facility] Start: 08-09-2020 End: 08-09-2020 Initial consult 08/09/2020 Initial consult Endocrinology Randy Lujan MD [facility] [address] [address] [phone] [facility] Start: 07-05-2020 Influenza vaccination given Sequential Influenza Vaccine (#1) [facility] Start: 11-19-2019 Adolescent depression screening assessment Depression Screening [facility] Start: 11-19-2019 Diabetes: Annual Retina Eye Exam Diabetes: Annual Retina Eye Exam [facility] Start: 11-19-2019 Diabetic foot examination Diabetes: Annual Foot Exam [facility] Start: 11-19-2019 Hemoglobin A1c measurement Diabetes: Blood Sugar Control Test (HGBA1C) [facility] Start: 11-19-2019 Hepatitis C screening Hepatitis C Screening [facility] Start: 11-19-2019 HIV screening HIV Screening [facility] Start: 11-19-2019 Lipid panel Cholesterol Screening (Lipid Panel) [facility] Start: 11-19-2019 Screening for malignant neoplasm of colon Colorectal Cancer Screening: Colonoscopy [facility] Start: 11-19-2019 Social Influencers of Health Screening Social Influencers of Health Screening [facility] Start: 11-19-2019 Urine screening for protein Diabetes: Annual Urine Protein Test (Microalbumin) [facility] Start: 07-23-2017 Pneumococcal Vaccine: Ped or At-Risk (2 - PCV) Pneumococcal Vaccine: Ped or At-Risk (2 - PCV) [facility] Start: 07-23-2017 Pneumococcal Vaccine: Pediatrics (0 to 5 Years) and At-Risk Patients (6 to 64 Years) (2 - PCV) Pneumococcal Vaccine: Pediatrics (0 to 5 Years) and At-Risk Patients (6 to 64 Years) (2 - PCV) [facility] Start: 07-23-2017 [facility] Start: 11-15-2014 DTaP/Tdap/Td Vaccines (2 - Tdap) DTaP/Tdap/Td Vaccines (2 - Tdap) [facility] Start: 2011 Administration of herpes zoster vaccine Zoster Vaccines (1 of 2) [facility] Start: 2011 Screening for malignant neoplasm of colon [facility] Start: 2011 Zoster Vaccines (1 of 2) Zoster Vaccines (1 of 2) [facility] Start: 2011 [facility] Start: 1983 DTaP/Tdap/Td Vaccines (1 - Tdap) DTaP/Tdap/Td Vaccines (1 - Tdap) [facility] Start: 1980 Hepatitis B Vaccines (1 of 3 - Risk 3-dose series) Hepatitis B Vaccines (1 of 3 - Risk 3-dose series) [facility] Start: 1980 Urine screening for protein [facility] Start: 1979 Hepatitis C antibody, confirmatory test Hepatitis C Screening [facility] Start: 1979 Hepatitis C screening Hepatitis C Screening [facility] Start: 1976 HIV screening HIV Screening [facility] Start: 1973 Adolescent depression screening assessment Depression Screening (PHQ9) [facility] Start: 1973 COVID-19 Vaccine (1) COVID-19 Vaccine (1) [facility] Start: 1971 Albumin DL <= 20 mg/L (U) [Mass/Vol] Urine Microalbumin [facility] Start: 1971 Diabetic foot examination [facility] Start: 1971 Microalbumin measurement, urine, quantitative Urine Microalbumin [facility] Start: 1971 Ophthalmic examination and evaluation [facility] Start: 1971 Preventive dental service [facility] Start: 1971 Urine screening for protein Urine Microalbumin [facility] Start: 1967 Pneumococcal Vaccine: Pediatrics (0 to 5 Years) and At-Risk Patients (6 to 64 Years) (1 - PCV) Pneumococcal Vaccine: Pediatrics (0 to 5 Years) and At-Risk Patients (6 to 64 Years) (1 - PCV) [facility] Start: 1966 COVID-19 Vaccine (1) COVID-19 Vaccine (1) [facility] Start: 1964 History and physical examination, annual for health maintenance Wellness Visit [facility] Start: 1962 MMR Vaccines (1 of 1 - Standard series) MMR Vaccines (1 of 1 - Standard series) [facility] Start: 02-06-1962 COVID-19 Vaccine (#1) COVID-19 Vaccine (#1) [facility] Start: 1961 Cyanocobalamin vitamin b-12 Vitamin B-12 [facility] Start: 1961 Diabetes: Celiac Disease Screening Diabetes: Celiac Disease Screening [facility] Start: 1961 Hemoglobin A1c measurement Diabetes: Hemoglobin A1C [facility] Start: 1961 Hepatitis B Vaccines (1 of 3 - 3-dose series) Hepatitis B Vaccines (1 of 3 - 3-dose series) [facility] Start: 1961 Hepatitis C screening [facility] Start: 1961 HIV screening [facility] Start: 1961 Lipid panel [facility] Start: 1961 Medicare Annual Wellness Visit Medicare Annual Wellness Visit (AWV) [facility] Start: 1961 Prostate specific antigen measurement PSA Level [facility] Start: 1961 Screening for malignant neoplasm of colon [facility] Start: 1961 Thyroid stimulating hormone measurement TSH Level [facility] Aerobic microbial culture Wound Aerobic Culture Microbiology Routine 07/26/2020 5:30 AM EDT [facility] Bacteria identified Cx Nom (Bld) [facility] Bacteria identified in Urine by Culture Culture urine Microbiology STAT 10/15/2021 10:47 AM EST [facility] Work Phone: Bacteria identified in Urine by Culture [facility] Bacteria identified in Urine by Culture Urine Culture [facility] Ear Cerumen Removal Ear Cerumen Removal Procedures Routine Impacted cerumen of right ear Ordered: 01/11/2021 [facility] Comment on above: Ordered: 01/11/2021 Patient referral [facility] Work Phone: End: 02-21-2023 Polysomnography Polysom[facility]ography [facility] Routine Sleep apnea, unspecified type 1 Occurrences starting 02/21/2022 until 02/21/2023 [facility] Work Phone: Comment on above: 1 Occurrences starting 02/21/2022 until 02/21/2023 End: 02-21-2023 Polysomnography with PAP Polysomnography with PAP Sleep Center Routine Sleep apnea, unspecified type 1 Occurrences starting 02/21/2022 until 02/21/2023 [facility] Comment on above: 1 Occurrences starting 02/21/2022 until 02/21/2023 End: 02-21-2023 [id number], qualitative RT-PCR [id number], qualitative RT-PCR Microbiology Routine Sleep apnea, unspecified type 1 Occurrences starting 02/21/2022 until 02/21/2023 [facility] Comment on above: 1 Occurrences starting 02/21/2022 until 02/21/2023 End: 07-26-2020 Wound Anaerobic Culture Wound Anaerobic Culture Microbiology Routine Once for 1 Occurrences starting 07/26/2020 until 07/26/2020 [facility] Comment on above: Once for 1 Occurrences starting 07/26/20 until 07/26/2020 Wound Anaerobic Culture Wound An aerobic Culture Microbiology Routine 07/26/2020 5:30 AM EDT [facility] Immunizations Immunization Date Immunization Notes Care Provider Sheldon sauceda 07-26-2020 influenza, injectabl e, quadrivalent, preservative free Generic [facility] 07-26-2020 influenza virus vaccine, unspecified formulation Paul Gaona DO Work Phone: [facility] 07-23-2016 influenza, injectabl e, quadrivalent, preservative free Paul Gaona DO Work Phone: [facility] 07-23-2016 pneumococcal polysaccharide vaccine, 23 valent Paul Gaona DO Work Phone: [facility] 07-20-2015 influenza, seasonal, injectable Paul Gaona DO Work Phone: [facility] 10-18-2014 influenza, seasonal, injectable Paul Gaona DO Work Phone: [facility] 10-18-2014 tetanus toxoid, reduced diphtheria toxoid, and acellular pertussis vaccine, adsorbed Paul Gaona DO Work Phone: [facility] 08-11-2013 influenza, seasonal, injectable Paul Gaona DO Work Phone: [facility] 2012 influenza, seasonal, injectable Paul Gaona DO Work Phone: [facility] 10-17-2011 influenza, seasonal, injectable Paul Gaona DO Work Phone: [facility] NEGATED: Highlighted row has not occurred!06-25-2022 Ant Arredondo DO Work Phone: [facility] Comment on above: Deferred: Patient Re fused - patient does not want this morning Payers Date Payer Category Payer Self-pay 2022 Medicare [id number] 2022 Medicare [id number] 2021 Medicaid [id number] [address].[facility] 2020 Medicaid [id number] 2020 Medicaid [id number] [id number] 2020 Medicaid [id number] 2019 Unknown [facility] OPT[employer] PPO [id number] 2019-Present [id number] 2019 Unknown [id number] 2016 Unknown [id number] 1961 Unknown [id number] 2.16.840.1.870606.3.579.2.900 1961 Unknown [id number] 2.16.840.1.797255.3.579.2.903 1961 Unknown [id number] 2.16.840.1.355166.3.579.2.903 1961 Unknown [id number] 2.16.840.1.431590.3.579.2.902 1961 Unknown [id number] 2.16.840.1.118798.3.579.2.902 1961 Unknown [id number] 2.16.840.1.328416.3.579.2.902 1961 Unknown [id number] 2.16.840.1.335723.3.579.2.902 1961 Unknown [id number] 2.16.840.1.435492.3.579.2.902 1961 Unknown [id number] 2.16.840.1.097657.3.579.2.902 1961 Unknown [id number] 2.16.840.1.934797.3.579.2.902 1961 Unknown [id number] 2.16.840.1.270814.3.579.2.1143 1961 Unknown [id number] 2.16.840.1.514305.3.579.2.1143 1961 Unknown [id number] 2.16.840.1.924262.3.579.2.1143 1961 Unknown [id number] 2.16.840.1.760052.3.579.2.1143 1961 Unknown [id number] 2.16.840.1.357212.3.579.2.297 1961 Unknown [id number] 2.16.840.1.836061.3.579.2.903 1961 Unknown [id number] 2.16.840.1.476957.3.579.2.356 1961 Unknown [id number] 2.16.840.1.174692.3.579.2.356 1961 Unknown [id number] 2.16.840.1.731151.3.579.2.356 1961 Unknown [id number] 2.16.840.1.728491.3.579.2.356 1961 Unknown [id number] 2.16.840.1.612621.3.579.2.356 1961 Unknown [id number] 2.16.840.1.151747.3.579.2.356 1961 Unknown [id number] 2.16.840.1.855093.3.579.2.356 1961 Unknown [id number] 2.16.840.1.862510.3.579.2.356 1961 Unknown [id number] 2.16.840.1.737496.3.579.2.356 1961 Unknown [id number] 2.16.840.1.831243.3.579.2.1244 1961 Unknown [id number] 2.16.840.1.180467.3.579.2.1244 1961 Unknown [id number] 2.16.840.1.179689.3.579.2.1244 1961 Unknown [id number] 2.16.840.1.680317.3.579.2.1244 1961 Unknown [id number] 2.16.840.1.599435.3.579.2.727 1961 Unknown [id number] 2.16.840.1.926143.3.579.2.727 1961 Unknown [id number] 2.16.840.1.499914.3.579.2.72 1961 Unknown [id number] 2.16.840.1.806908.3.579.2.72 1960 Unknown [id number] 2.16.840.1.838922.3.579.2.72 1960 Unknown [id number] 2.16.840.1.066677.3.579.2.72 1960 Unknown [id number] 2.16.840.1.906110.3.579.2. 1961 Unknown [id number] 2.16.840.1.947257.3.579.2. 1960 Unknown [id number] 2.16.840.1.570477.3.579.2. 1961 Unknown [id number] 2.16.840.1.886240.3.579.2.72 1960 Unknown [id number] 2.16.840.1.926959.3.579.2. 1960 Unknown [id number] 2.16.840.1.676866.3.579.2. 1961 Unknown [id number] 2.16.840.1.424915.3.579.2. 1961 Unknown [id number] 2.16.840.1.687506.3.579.2.72 1961 Unknown [id number] 2.16.840.1.431328.3.579.2. 1961 Unknown [id number] 2.16.840.1.740225.3.579.2.72 1961 Unknown [id number] 2.16.840.1.685325.3.579.2.727 1961 Unknown [id number] 2.16.840.1.636140.3.579.2.727 1961 Unknown [id number] 2.16840.1.899468.3.579.2.727 1961 Unknown [id number] 2.16840.1.382655.3.579.2.727 1961 Unknown [id number] 2.840.1.200592.3.579.2.1245 1960 Unknown [id number] 2.840.1.914373.3.579.2.1245 Medicare [employer] Medicare Advantage [facility] [id number] Medicare Medicare [id number] Unknown [id number] 2.16840.1.019516.3.579.2.246 Unknown [id number] 2.840.1.987465.3.579.2.512 Unknown [id number] 2.840.1.094683.3.579.2.512 Unknown [id number] 2.840.1.350123.3.579.2.512 Unknown [id number] 2.840.1.708858.3.579.2.512 Unknown [id number] 2.840.1.572745.3.579.2.512 Unknown [id number] 2.16840.1.337130.3.579.2.512 Unknown [id number] 2.16840.1.682915.3.579.2.512 Unknown [id number] 2.16840.1.408906.3.579.2.512 Unknown [id number] 2.16840.1.887563.3.579.2.512 Unknown [id number] 2.16840.1.294362.3.579.2.512 Unknown [id number] 2.16.840.1.332858.3.579.2.512 Unknown Social History Date Type Detail Facility Start: 07-26-2020 End: 12-13-2023 Tobacco smoking status NHIS Never smoker [facility] Comment on above: Denies. DENIES Start: 07-26-2020 End: 09-13-2023 Tobacco use and exposure Never used [facility] Start: 07-26-2020 End: 04-30-2022 Alcohol intake Current non-drinker of alcohol (finding) [facility] Start: 1960 Sex Assigned At Not on file [facility] Start: 12-30-2021 End: 11-12-2023 Exposure to SARS-CoV-2 (event) Not sure [facility] Start: 06-12-2021 End: 09-10-2022 Alcohol intake Ex-drinker (finding) [facility] Start: 1960 End: 1960 Sex Assigned At Male [facility] Start: 10-15-2021 End: 02-21-2022 Alcohol intake Current drinker of alcohol (finding) [facility] Start: 10-15-2021 End: 09-13-2023 Alcohol intake [facility] Start: 10-15-2021 History SDOH Alcohol Comment occasionally [facility] Start: 01-11-2021 End: 09-08-2022 Tobacco smoking status HIIS Unknown if ever smoked [facility] Start: 09-08-2022 Unknown If Ever Smoked [facility] Start: 09-08-2022 No [facility] Start: 09-09-2022 Never Smoked [facility] Tobacco smoking status No Smoking Status Entered [facility] Start: 09-13-2023 Sex Assigned At Male [facility] Tobacco [facility] Comment on above: Denies. Tobacco smoking status Never [facility] Comment on above: Denies. DENIES Start: 11-12-2023 Alcohol intake Lifetime non-d ousmane (finding) [facility] Work Phone: Medical Equipment Procedure Code Equipment Code Equipment Origin al Text Equipment Identifier Dates Implant [id number] Start : 08-05-2020 Matrix 5 X 5cm W ound 6-Layer Cytal - [id number] Start: 08-05-2020 Check your sugar s up to 4 times a day . [id number] Start: 08-06-2020 Check your sugar s up to 4 times a day . [id number] Start: 08-06-2020 Change pen needl es daily as needed up to 4 times. . [id number] Start: 08-06-2020 [id number] FDA Start: 05-05-2021 HIP BIPOLAR ARTHROPLASTY Blackman DO, Rafi T 05/05/23 Unknown Hip L FDA Start: 05-05-2023 HIP BIPOLAR ARTHROPLASTY Blackman DO, Rafi T 05/05/23 Unknown Hip L FDA Start: 05-05-2023 HIP BIPOLAR ARTHROPLASTY Blcakman DO, Rafi T 05/05/23 Unknown Hip L FDA Start: 05-05-2023 HIP BIPOLAR ARTHROPLASTY Blackman DO, Rafi T 05/05/23 Unknown Hip L FDA Start: 05-05-2023 HIP BIPOLAR ARTHROPLASTY Blackman DO, Rafi T 05/05/23 Unknown Hip L FDA Start: 05-05-2023 HIP BIPOLAR ARTHROPLASTY Blackman DO, Rafi T 05/05/23 Unknown Hip L FDA Start: 05-05-2023 HIP BIPOLAR ARTHROPLASTY Blackman DO, Rafi T 05/05/23 Unknown Hip L FDA Start: 05-05-2023 HIP BIPOLAR ARTHROPLASTY Blackman DO, Rafi T 05/05/23 Unknown Hip L FDA Start: 05-05-2023 HIP BIPOLAR ARTHROPLASTY Blackman DO, Rafi T 05/05/23 Unknown Hip L FDA Start: 05-05-2023 HIP BIPOLAR ARTHROPLASTY Blackman DO, Rafi T 05/05/23 Unknown Hip L FDA Start: 05-05-2023 HIP BIPOLAR ARTHROPLASTY Blackman DO, Rafi T 05/05/23 Unknown Hip L FDA Start: 05-05-2023 HIP BIPOLAR ARTHROPLASTY Blackman DO, Rafi T 05/05/23 Unknown Hip L FDA Start: 05-05-2023 HIP BIPOLAR ARTHROPLASTY Blackman DO, Rafi T 05/05/23 Unknown Hip L FDA Start: 05-05-2023 HIP BIPOLAR ARTHROPLASTY Blackman DO, Rafi T 05/05/23 Unknown Hip L FDA Start: 05-05-2023 HIP BIPOLAR ARTHROPLASTY Blackman DO, Rafi T 05/05/23 Unknown Hip L FDA Start: 05-05-2023 HIP BIPOLAR ARTHROPLASTY Blackman DO, Rafi T 05/05/23 Unknown Hip L FDA Start: 05-05-2023 HIP BIPOLAR ARTHROPLASTY Blackman DO, Rafi T 05/05/23 Unknown Hip L FDA Start: 05-05-2023 HIP BIPOLAR ARTHROPLASTY Blackman DO, Rafi T 05/05/23 Unknown Hip L FDA Start: 05-05-2023 HIP BIPOLAR ARTHROPLASTY Blackman DO, Rafi T 05/05/23 Unknown Hip L FDA Start: 05-05-2023 HIP BIPOLAR ARTHROPLASTY Blackman DO, Rafi T 05/05/23 Unknown Hip L FDA Start: 05-05-2023 HIP BIPOLAR ARTHROPLASTY Blackman DO, Rafi T 05/05/23 Unknown Hip L FDA Start: 05-05-2023 HIP BIPOLAR ARTHROPLASTY Blackman DO, Rafi T 05/05/23 Unknown Hip L FDA Start: 05-05-2023 HIP BIPOLAR ARTHROPLASTY Blackman DO, Rafi T 05/05/23 Unknown Hip L FDA Start: 05-05-2023 HIP BIPOLAR ARTHROPLASTY Blackman DO, Rafi T 05/05/23 Unknown Hip L FDA Start: 05-05-2023 HIP BIPOLAR ARTHROPLASTY Blackman DO, Rafi T 05/05/23 Unknown Hip L FDA Start: 05-05-2023 HIP BIPOLAR ARTHROPLASTY Blackman DO, Rafi T 05/05/23 Unknown Hip L FDA Start: 05-05-2023 HIP BIPOLAR ARTHROPLASTY Blackman DO, Rafi T 05/05/23 Unknown Hip L FDA Start: 05-05-2023 HIP BIPOLAR ARTHROPLASTY Blackman DO, Rafi T 05/05/23 Unknown Hip L FDA Start: 05-05-2023 HIP BIPOLAR ARTHROPLASTY Blackman DO, Rafi T 05/05/23 Unknown Hip L FDA Start: 05-05-2023 HIP BIPOLAR ARTHROPLASTY Blackman DO, Rafi T 05/05/23 Unknown Hip L FDA Start: 05-05-2023 Goals Date Patient Goal Desired Activity /State Comment on above: Formatting of this n ote might be different from the original. Heel wound so I can wear prosthetic on R leg and go back to work Functional Status Date Assessment Result Facility 12-13-2023 Functional Status No [facility] 10-05-2023 Functional Status N/A [facility] 10-05-2023 Functional Status [facility] 04-25-2023 Functional Status No [facility] 04-25-2023 Functional Status [facility] 03-01-2023 Functional Status N/A [facility] 03-01-2023 Functional Status [facility] Mental Status Date Assessment Result Facility 09-22-2022 Cognitive function Person;Place;Time [facility] Work Phone: 09-09-2022 Cognitive function Person;Place;Time [facility] Work Phone: 09-08-2022 Cognitive function Person;Place;Time [facility] Work Phone: Clinical Notes 01-11-2021 to 11-21-2023 Jayme De MD - 11/12/2023 10:10 AM ESTPatient Rafy Barcenas APRN.COMPUTER ASSEMBLER - 10/22/2023 12:00 AM Lauren Culp - 10/14/2023 12:00 AM EST Note Date & Type Note Facility 11-21-2023 Note HNO ID: [id number] Author: LAUREN CHOWDARY, ? Service: ? Author Type: Physician Type: Progress Notes Filed: 11/22/2023 03:58 Note Text: [facility] NOTE NAME: LATA PAPPAS NO.: [id number] DATE OF SERVICE: 11/21/2023 [facility] DATE OF : 1960 Follow up of multiple medical chronic issues. He is currently napping in bed, but is arousable. He has no specific complaints. He does spend most of his time in bed. Nursing reports no new problems. He was recently seen by the cardiology service and his medications have been adjusted. He currently denies any shortness of breath or chest pain. MEDICATIONS: Reviewed. EXAMINATION: Afebrile, vital signs stable. HEENT: Intact. Lungs: Clear. Heart: Regular. Abdomen: Soft, obese, nontender. Extremities: Status post right BKA. He does have mild edema to his left distal extremity. IMPRESSIONS: 1. Hypertension. Blood pressures within a fair range. 2. Neurogenic bladder - continue indwelling Todd catheter. 3. Peripheral vascular disease - monitor for signs of ischemia or cyanosis. 4. Diabetes mellitus type 2. Blood sugars within a fair range. He does have a diabetic foot ulcer, which is being treated. 5. Bipolar disorder - continue to monitor his mood and behavior. 6. Recent COVID infection - resolved. Maintain current course of therapy. DICTATED BY: MD MIGUEL Balderas/Judi JOB# [id number] cc:DR [facility] 11-19-2023 Note [id number] 11-12-2023 History of Present illness Narrative Subjective Mikayla Pappas is a 63 y.o. male Chief Complaint Follow-up HPI Patient is here for follow-up continue management for previous evaluation for chest pain. He moved to the area last year. He reported history of questionable coronary artery disease with remote PCI details lacking history of Aazvz-Iryvyyzis-Jchnh and prior ablation. When he was in the hospital he was evaluated for chest pain. Stress test which showed inferior ischemia. Following lengthy discussion with him he elected for conservative management considering he is very sedentary. When I saw him in the office the last time he was hypotensive and apparently this was turned out to be related to urine tract infection and some narcotic he received. He reported he was in the hospital for few days. He recently been doing reasonably well without any recent complaint. He denies chest pain. He is a wheelchair-bound because peripheral vascular disease. I reviewed the results of his stress test again with him and he continues to be in preference for medical management. Assessment 1. Previous evaluation for chest pain with positive stress test for mild area of inferior wall ischemia. He report questionable PCI in the [place] details lacking. I reviewed treatment option with the patient during recent hospitalization and today and I elected for conservative management considering his renal dysfunction and the size of the ischemia in addition the patient is very inactive and currently in the assisted 2. Hypertension controlled 3. Prior history of stroke 4. History of Zhtrv-Gbqdqambj-Jhkxp and prior ablation in the [place] detail is lacking 5. Peripheral vascular disease with prior right above-knee amputation 6. Diabetes mellitus 7. Hyperlipidemia 8. Bipolar disorder Plan 1. Reviewed with him his recent hospitalization record and lab work will review treatment option again 2. I did review the results of his stress test and treatment option with him briefly and I continue to recommend conservative management considering his comorbidities and renal dysfunction and the size of ischemia 3. Will continue with medical management and aggressive risk Factor modification 4. I educated him about angina advised him to notify me change in cardiac status or symptoms 5. He is currently in the assisted I advised him to continue to monitor blood pressure notify me if blood pressure continue to un low 6. Follow-up in 9-month Review of Systems Cardiovascular: Positive for palpitations. Respiratory: Positive for shortness of breath. Neurological: Positive for dizziness. Visit Vitals BP (!) 98/42 (BP Location: Left arm, Patient Position: Sitting) Pulse 70 Smoking Status Never Objective Physical Exam Constitutional: Appearance: Normal appearance. He is normal weight. HENT: Nose: Nose normal. Neck: Vascular: No carotid bruit. Cardiovascular: Rate and Rhythm: Normal rate. Pulses: Normal pulses. Heart sounds: Normal heart sounds. Pulmonary: Effort: Pulmonary effort is normal. Abdominal: General: Bowel sounds are normal. Palpations: Abdomen is soft. Genitourinary: Rectum: Normal. Musculoskeletal: General: Normal range of motion. Cervical back: Normal range of motion. Right lower leg: No edema. Left lower leg: No edema. Comments: Right BKA Skin: General: Skin is warm and dry. Neurological: General: No focal deficit present. Mental Status: He is alert. Psychiatric: Mood and Affect: Mood normal. Behavior: Behavior normal. Thought Content: Thought content normal. Judgment: Judgment normal. Current Medications Current Outpatient Medications: acetaminophen (Tylenol 8 HOUR) 650 mg ER tablet, Take 650 mg by mouth every 8 (eight) hours if needed for mild pain. Do not crush, chew, or split., Disp: , Rfl: artificial tears, ivzrhgg-wqwuahh-jeonpxgk, 0.1-0.3-0.2 % ophthalmic solution, 1 drop(s), OPTH, QID, Refill(s) 0, Disp: , Rfl: atorvastatin (Lipitor) 80 mg tablet, 80 mg = 1 tab(s), Oral, Bedtime, # 90 tab(s), Refills(s) 0, Disp: , Rfl: cyanocobalamin (Vitamin B-12) 500 mcg tablet, 500 mcg = 1 tab(s), Oral, Daily, # 30 tab(s), Refills(s) 0, Disp: , Rfl: cyclobenzaprine (Flexeril) 10 mg tablet, Take 0.5 tablets (5 mg) by mouth 3 times a day as needed for muscle spasms., Disp: , Rfl: docusate sodium (Colace) 50 mg capsule, Take 50 mg by mouth in the morning and 50 mg before bedtime., Disp: , Rfl: DULoxetine (Cymbalta) [address] capsule, = 1 cap(s), Oral, Daily, Refills(s) 0, Disp: , Rfl: DULoxetine (Cymbalta) [address] capsule, = 1 cap(s), Oral, Daily, (do not crush or chew), # 30 cap(s), Refills(s) 0, Disp: , Rfl: ergocalciferol (Vitamin D-2) 1.25 MG (33714 UT) capsule, Take 1.25 mg by mouth 1 (one) time per week., Disp: , Rfl: ferrous sulfate 325 (65 Fe) MG tablet, Take 325 mg by mouth in the morning. Take with meals., Disp: , Rfl: gabapentin (Neurontin) 300 mg capsule, 300 mg = 1 cap(s), Oral, Once a day (at bedtime), # 30 cap(s), Refills(s) 0, Disp: , Rfl: insulin glargine (Lantus U-100 Insulin) 100 unit/mL injection, 10 unit(s), SubCutaneous, Daily, Refills(s) 0, Disp: , Rfl: insulin NPH and regular human (NovoLIN) 100 unit/mL (70-30) injection, Inject under the skin 2 (two) times a day before meals., Disp: , Rfl: isosorbide mononitrate ER (Imdur) 30 mg 24 hr tablet, 30 mg = 1 tab(s), Oral, qAM, # 30 tab(s), Refills(s) 0, Disp: , Rfl: lamoTRIgine (LaMICtal) 25 mg tablet, Take 1 tablet (25 mg) by mouth 2 times a day., Disp: , Rfl: loperamide (Imodium A-D) 2 mg tablet, Take by mouth 4 (four) times a day as needed for diarrhea., Disp: , Rfl: LORazepam (Ativan) 0.5 mg tablet, Take 1 tablet (0.5 mg) by mouth every 6 hours if needed for anxiety., Disp: , Rfl: magnesium hydroxide (Milk of Magnesia) 400 mg/5 mL suspension, Use as directed, Disp: , Rfl: melatonin 5 mg tablet, 5 mg = 1 tab(s), Oral, Once a day (at bedtime), # 60 tab(s), Refills(s) 0, Disp: , Rfl: metoprolol tartrate (Lopressor) 25 mg tablet, Take 1 tablet (25 mg) by mouth 2 times a day., Disp: , Rfl: NIFEdipine ER (Adalat CC) 30 mg 24 hr tablet, Take 1 tablet (30 mg) by mouth once daily in the morning. Take before meals. Do not crush, chew, or split., Disp: , Rfl: NOVOLOG U-100 INSULIN ASPART SUBQ, 6 unit(s), SubCutaneous, TIDAC, Refills(s) 0, Disp: , Rfl: nystatin (Mycostatin) cream, Apply topically 2 (two) times a day., Disp: , Rfl: sodium chloride 0.9 % aerosol,spray, 1 spray(s), Nasal, BID, 45 mL, Refill(s) 0, Disp: , Rfl: Assessment/Plan 1. Chest pain, unspecified type Follow Up In Cardiology 2. Essential hypertension Follow Up In Cardiology 3. Mixed hyperlipidemia Follow Up In Cardiology 4. Abnormal stress test 5. WPW (Cmtza-Ohjxggcut-Ozhqs syndrome) 6. Stage 3a chronic kidney disease (CMS/HCC) 7. Cerebrovascular accident (CVA), unspecified mechanism (CMS/HCC) 8. LORENA (obstructive sleep apnea) 9. halfway resident 10. Wheelchair dependent Scribe Attestation By signing my name below, [email or web address] , Scribe attest that this documentation has been prepared under the direction and in the presence of Jayme De MD. documented in this encounter [facility] Work Phone: 11-12-2023 Instructions Jaylin Hammond LPN - 11/12/2023 10:10 AM EST Please bring all medicines, vitamins, and herbal supplements with you when you come to the office. Prescriptions will not be filled unless you are compliant with your follow up appointments or have a follow up appointment scheduled as per instruction of your physician. Refills should be requested at the time of your visit. 9 months Same meds documented in this encounter [facility] Work Phone: 10-22-2023 Note HNO ID: [id number] Author: Rafy Steiner APRN.COMPUTER ASSEMBLER Service: ? Author Type: Nurse Specialist Type: Progress Notes Filed: 10/24/2023 7:19 AM Note Text: [facility] CORRECTION NOTE NAME: LATA PAPPAS NO.: [id number] DATE OF SERVICE: 10/22/2023 [facility] DATE OF : 1960 REASON FOR VISIT: The patient is a resident of [facility]. This is a skilled visit for bacteremia with chronic kidney disease and other medical concerns. Prior to patient assessment staff reported the patient tested positive for COVID and was placed in isolation. Prior to entering the room donned full PPE, entered patient's room and found the patient dozing in bed. The patient does not appear to be in distress or discomfort and is easily aroused. The patient states overall does not feel bad. The patient states does have some weakness and fatigue. He states he does have occasional cough, but nothing bothersome. Cough has been ongoing prior to diagnosis of COVID. The patient states no shortness of breath. No fever, chills, or nausea. The patient states he has been eating well and bowels have been moving. States has been drinking fluids. Denies urinary symptoms. MEDICATIONS: Have been reviewed. PHYSICAL EXAMINATION: Temp 97.8, blood pressure 124/75, pulse 62, respirations 18, pulse ox 97% on room air, weight 220 pounds. Respiratory: Respirations are easy and unlabored with patient at rest. Lung sounds are clear. Heart: Heart rate and rhythm regular. Abdomen: Soft and nontender with palpation. Bowel sounds present x4. Genitourinary: Todd catheter is intact. It is draining clear yellow urine. Extremities: Left lower extremity dressing is dry and intact. No edema is noted. IMPRESSION AND PLAN: 1. COVID-19. The patient will have lab work. Continue to encourage fluids. Monitor respiratory status. 2. Bacteremia, currently on amoxicillin, end date October 23, 2023. 3. Chronic kidney disease, monitoring lab work, lab to be performed October 22, 2023. 4. Neurogenic bladder, continue Todd catheter. The patient is being evaluated for suprapubic catheter. 5. Diabetic foot ulcer. The patient follows with wound services and dressings per wound directive. 6. Bipolar disorder. No behavioral issues have been reported per staff. On lamotrigine, Cymbalta. 7. Anxiety and depression, on Cymbalta and Ativan every 12 hours as needed. 8. Generalized weakness, continue with therapy services as needed. DICTATED BY: MURALI Plaza/Judi JOB# [id number] cc: [facility] 10-22-2023 History of Present illness Narrative [facility] NOTE NAME: LATA PAPPAS NO.: [id number] DATE OF SERVICE: 10/22/2023 [facility] DATE OF : 1960 REASON FOR VISIT: The patient is a resident of [facility]. This is a skilled visit for bacteremia with chronic kidney disease and other medical concerns. Prior to patient assessment staff reported the patient tested positive for COVID and was placed in isolation. Prior to entering the room donned full PPE, entered patient's room and found the patient dozing in bed. The patient does not appear to be in distress or discomfort and is easily aroused. The patient states overall does not feel bad. The patient states does have some weakness and fatigue. He states he does have occasional cough, but nothing bothersome. Cough has been ongoing prior to diagnosis of COVID. The patient states no shortness of breath. No fever, chills, or nausea. The patient states he has been eating well and bowels have been moving. States has been drinking fluids. Denies urinary symptoms. MEDICATIONS: Have been reviewed. PHYSICAL EXAMINATION: Temp 97.8, blood pressure 124/75, pulse 62, respirations 18, pulse ox 97% on room air, weight 220 pounds. Respiratory: Respirations are easy and unlabored with patient at rest. Lung sounds are clear. Heart: Heart rate and rhythm regular. Abdomen: Soft and nontender with palpation. Bowel sounds present x4. Genitourinary: Todd catheter is intact. It is draining clear yellow urine. Extremities: Left lower extremity dressing is dry and intact. No edema is noted. IMPRESSION AND PLAN: 1. COVID-19. The patient will have lab work. Continue to encourage fluids. Monitor respiratory status. 2. Bacteremia, currently on amoxicillin, end date October 23, 2023. 3. Chronic kidney disease, monitoring lab work, lab to be performed October 22, 2023. 4. Neurogenic bladder, continue Todd catheter. The patient is being evaluated for suprapubic catheter. 5. Diabetic foot ulcer. The patient follows with wound services and dressings per wound directive. 6. Bipolar disorder. No behavioral issues have been reported per staff. On lamotrigine, Cymbalta. 7. Anxiety and depression, on Cymbalta and Ativan every 12 hours as needed. 8. Generalized weakness, continue with therapy services as needed. DICTATED BY: MURALI Plaza/Judi JOB# [id number] cc:DR [facility] documented in this encounter [facility] 10-14-2023 Note HNO ID: [id number] Author: Lauren Chowdary Service: ? Author Type: Physician Type: Progress Notes Filed: 10/15/2023 5:49 PM Note Text: [facility] HOME NOTE NAME: JESSILATA NO.: [id number] DATE OF SERVICE: 10/14/2023 [facility] DATE OF : 1960 New patient history and physical HISTORY OF PRESENT ILLNESS: The patient is a 63-year-old male who was admitted back to us from [facility] with a diagnosis of acute urinary tract infection with urosepsis and bacteremia, systemic inflammatory response syndrome, acute kidney injury on top of chronic kidney disease, chronic open diabetic left heel wound, neurogenic bladder requiring chronic indwelling Todd catheter, chronic kidney disease, anemia of chronic disease, diabetes mellitus type 2, posttraumatic stress disorder, previous CVA, Qyiip-Aqqpklhnq-Xpxwo syndrome with previous radioablation therapy, peripheral vascular disease with previous right uehto-ihq-swap amputation, history of aggressive behavior, homicidal ideation, previous Todd infection, major depressive disorder with bipolar disorder, obesity, previous surgical repair of left hip fracture secondary to accidental mechanical fall, April 2023, and generalized weakness and debility. He was initially admitted to the hospital after developing catheter issues. His catheter had accidentally fallen out and was unable to be reinserted at the assisted. However, upon arrival to the hospital, evaluation revealed findings consistent with acute urinary tract infection with urosepsis and bacteremia along with systemic inflammatory response syndrome. He was started on appropriate IV antibiotic therapy. I do not have full details regarding his hospitalization. He was also noted to have acute kidney injury on top of chronic kidney disease, for which he was given appropriate IV fluids and hydration. His condition was eventually stabilized and improved then he is now admitted back to our facility for continued therapy and long-term care. REVIEW OF SYSTEMS: He is currently resting in bed. He is actually alert and responsive. He has no complaints at this time. He is unable to give me full details regarding his recent hospitalization or past medical history. He currently denies any pain or discomfort. He has had no change in his vision or hearing, or actual syncope. He currently denies being short of breath. No history of chronic obstructive pulmonary disease, asthma, bronchitis or recent pneumonia. He has had a previous COVID infection. He does have a history of Ztdlv-Txyfdnhgk-Tyccm with previous radioablation therapy. He has had no recent chest pain. Appetite has been fair. No bleeding ulcers, hepatitis or melena. He has had a prior stroke with no significant residual. No seizure activity. He does have hypertension and hyperlipidemia. He is a diabetic type 2 with previous chronic and diabetic left heel wound. He is status post previous right hcceh-cnj-fcci amputation for underlying peripheral vascular disease. FAMILY HISTORY: Significant for hypertension. SOCIAL/FUNCTIONAL HISTORY: He does not smoke or abuse alcohol. He has been a long-term resident here. 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 MEDICATIONS: Amoxicillin 500 mg t.i.d. for 10 days, Cipro 500 mg b.i.d. for 10 days, nifedipine ER 30 mg daily, NovoLog insulin 6 units subcu before meals, glargine insulin 10 units subcu daily, lorazepam p.r.n., prednisolone eyedrops 4 times a day, atorvastatin 80 mg at h.s., cyanocobalamin 500 mcg daily, docusate 100 mg b.i.d., duloxetine 90 mg daily, ergocalciferol 50,000 units weekly, ferrous sulfate 325 mg daily, gabapentin 300 mg at bedtime, lispro sliding scale coverage, isosorbide/mononitrate 30 mg daily, lamotrigine 25 mg t.i.d., melatonin h.s., metoprolol ER 25 mg b.i.d., artificial tears 4 times a day and sodium chloride nasal spray b.i.d. ALLERGIES: DEPAKOTE AND DILANTIN. EXAMINATION: Afebrile, vital signs stable. He is in no distress. He appears chronically ill. He does appear pale. HEENT: Extraocular movements intact, sclerae nonicteric. Ears intact. Lungs are clear. Heart: Regular. Abdomen: Soft, nontender. Bowel sounds present. Extremities: He is status post right wvgqv-bez-wngm amputation. He does have a dressing to his left foot that is clean and dry. He does have generalized weakness. IMPRESSION: 1. Acute urinary tract infection with sepsis and bacteremia and systemic inflammatory response syndrome - the patient will finish current course of antibiotic therapy. Monitor his urinary symptoms closely. 2. Acute kidney injury on top of chronic kidney disease - continue to monitor renal function and fluid balance closely. We will obtain followup BMP. 3. Neurogenic bladder requiring chronic indwelling Todd catheter - the patient states that he was told that he will be kam (more content not included)... [facility] 10-14-2023 Note [facility] Comment on above: Result Comment: Elec tronically Signed By: LETA QUINTERO-BCRima\.br\Date and Time Signed: 10/14/23 09:21 EST\.br\Electronically Co-Signed By: Paul Yanes DO\.br\Date and Time Co-Signed: 10/17/23 17:19 EST 10-14-2023 History of Present illness Narrative [facility] NOTE NAME: LATA PAPPAS NO.: [id number] DATE OF SERVICE: 10/14/2023 [facility] DATE OF : 1960 New patient history and physical HISTORY OF PRESENT ILLNESS: The patient is a 63-year-old male who was admitted back to us from [facility] with a diagnosis of acute urinary tract infection with urosepsis and bacteremia, systemic inflammatory response syndrome, acute kidney injury on top of chronic kidney disease, chronic open diabetic left heel wound, neurogenic bladder requiring chronic indwelling Todd catheter, chronic kidney disease, anemia of chronic disease, diabetes mellitus type 2, posttraumatic stress disorder, previous CVA, Ocsfz-Clrclubme-Xiibc syndrome with previous radioablation therapy, peripheral vascular disease with previous right rnhll-sgi-xjys amputation, history of aggressive behavior, homicidal ideation, previous Todd infection, major depressive disorder with bipolar disorder, obesity, previous surgical repair of left hip fracture secondary to accidental mechanical fall, April 2023, and generalized weakness and debility. He was initially admitted to the hospital after developing catheter issues. His catheter had accidentally fallen out and was unable to be reinserted at the assisted. However, upon arrival to the hospital, evaluation revealed findings consistent with acute urinary tract infection with urosepsis and bacteremia along with systemic inflammatory response syndrome. He was started on appropriate IV antibiotic therapy. I do not have full details regarding his hospitalization. He was also noted to have acute kidney injury on top of chronic kidney disease, for which he was given appropriate IV fluids and hydration. His condition was eventually stabilized and improved then he is now admitted back to our facility for continued therapy and long-term care. REVIEW OF SYSTEMS: He is currently resting in bed. He is actually alert and responsive. He has no complaints at this time. He is unable to give me full details regarding his recent hospitalization or past medical history. He currently denies any pain or discomfort. He has had no change in his vision or hearing, or actual syncope. He currently denies being short of breath. No history of chronic obstructive pulmonary disease, asthma, bronchitis or recent pneumonia. He has had a previous COVID infection. He does have a history of Ugqft-Gtidzgqic-Yeywe with previous radioablation therapy. He has had no recent chest pain. Appetite has been fair. No bleeding ulcers, hepatitis or melena. He has had a prior stroke with no significant residual. No seizure activity. He does have hypertension and hyperlipidemia. He is a diabetic type 2 with previous chronic and diabetic left heel wound. He is status post previous right kyhyj-fdj-jnhk amputation for underlying peripheral vascular disease. FAMILY HISTORY: Significant for hypertension. SOCIAL/FUNCTIONAL HISTORY: He does not smoke or abuse alcohol. He has been a long-term resident here. 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 MEDICATIONS: Amoxicillin 500 mg t.i.d. for 10 days, Cipro 500 mg b.i.d. for 10 days, nifedipine ER 30 mg daily, NovoLog insulin 6 units subcu before meals, glargine insulin 10 units subcu daily, lorazepam p.r.n., prednisolone eyedrops 4 times a day, atorvastatin 80 mg at h.s., cyanocobalamin 500 mcg daily, docusate 100 mg b.i.d., duloxetine 90 mg daily, ergocalciferol 50,000 units weekly, ferrous sulfate 325 mg daily, gabapentin 300 mg at bedtime, lispro sliding scale coverage, isosorbide/mononitrate 30 mg daily, lamotrigine 25 mg t.i.d., melatonin h.s., metoprolol ER 25 mg b.i.d., artificial tears 4 times a day and sodium chloride nasal spray b.i.d. ALLERGIES: DEPAKOTE AND DILANTIN. EXAMINATION: Afebrile, vital signs stable. He is in no distress. He appears chronically ill. He does appear pale. HEENT: Extraocular movements intact, sclerae nonicteric. Ears intact. Lungs are clear. Heart: Regular. Abdomen: Soft, nontender. Bowel sounds present. Extremities: He is status post right ygdbb-gyb-dmkp amputation. He does have a dressing to his left foot that is clean and dry. He does have generalized weakness. IMPRESSION: 1. Acute urinary tract infection with sepsis and bacteremia and systemic inflammatory response syndrome - the patient will finish current course of antibiotic therapy. Monitor his urinary symptoms closely. 2. Acute kidney injury on top of chronic kidney disease - continue to monitor renal function and fluid balance closely. We will obtain followup BMP. 3. Neurogenic bladder requiring chronic indwelling Todd catheter - the patient states that he was told that he will be schedule for a suprapubic catheter in the near future. The patient will follow up with Urology as an outpatient. 4. Chronic diabetic left foot wound - continue with current wound care. We will monitor this closely and make adjustments as needed. 5. Bipolar disorder with anxiety and depression - continue to monitor his mood and behavior closely. He has been followed by [facility]. 6. Functional assessment - he does have generalized weakness. He will be receiving rehab services for overall strengthening and conditioning. Overall condition and prognosis is quite guarded. We will obtain followup labs including CBC and BMP. He is here for long-term care. DICTATED BY: MD MIGUEL Balderas/Judi JOB# [id number] cc:DR [facility] documented in this encounter [facility] 10-11-2023 Evaluation + Plan note Extrac loida from: Title:Discharge Note Author:GILLETTE AGACNP-BC, Re nee Date:10/11/23 Hemodynamically stable condi tion Discharge To, Anticipated II - Intermediate Care/ECF Discharge Status: Improved Discharge Instructions Given: To patient Discharge disposition: SNF Prescriptions reviewed with Patient 49 minutes spent in discharge time with patient, collaborating MD, nursing staff, CRM, Discharge Diet(s): Calorie Controlled- 2000 Calorie Diet, Fat Modified- 50 gram, Low Sodium- 2000 mg (10/09/23 11:44:00) Prescriptions Ativan 0.5 mg Tab, 0.5 mg= 1 tab(s), Oral, BID, PRN ciprofloxacin 500 mg Tab, 500 mg= 1 tab(s), Oral, BID isosorbide mononitrate 30 mg ER Tab, 30 mg= 1 tab(s), Oral, qAM metoprolol 25 mg ER Tab, 25 mg= 1 tab(s), Oral, BID nystatin Top 100,000 units/g Pwdr, 1 manuel, Topical, BID Home acetaminophen 325 mg Tab, 650 mg= 2 tab(s), Oral, q6hr, PRN amoxicillin 500 mg Cap, 500 mg= 1 cap(s), Oral, TID Artificial Tears, 1 drop(s), OPTH, QID atorvastatin 80 mg Tab, 80 mg= 1 tab(s), Oral, Bedtime cyanocobalamin 500 mcg oral tablet, 500 mcg= 1 tab(s), Oral, Daily cyclobenzaprine 5 mg Tab, 5 mg, Oral, BID, PRN Cymbalta 30 mg Cap-DR, 1 cap(s), Oral, Daily Cymbalta 60 mg Cap-DR, 1 cap(s), Oral, Daily docusate sodium 100 mg Cap, 100 mg= 1 cap(s), Oral, BID Dulcolax 10 mg Supp, 10 mg= 1 supp, Rectal, Daily, PRN ergocalciferol 50,000 intl units Cap, 13186 International_Unit= 1 cap(s), Oral, Daily ferrous sulfate 325 mg oral enteric coated tablet, 325 mg, Oral, Daily gabapentin 300 mg Cap, 300 mg= 1 cap(s), Oral, Once a day (at bedtime) Immodium A-D 2 mg Tab, 4 mg= 2 tab(s), Oral, q6hr, PRN insulin glargine, 10 unit(s), SubCutaneous, Daily insulin lispro, 0-10 Units, SubCutaneous, QIDACHS lamotrigine, 25 mg, Oral, BID Melatonin 5 mg oral tablet, 5 mg= 1 tab(s), Oral, Once a day (at bedtime) NIFEdipine 30 mg ER Tab, 30 mg= 1 tab(s), Oral, Daily NovoLog, 6 unit(s), SubCutaneous, TIDAC prednisoLONE Opth acetate 1% Susp 5 mL, 1 drop(s), Eye-Left, QID Senna 8.6 mg oral tablet, 8.6 mg= 1 tab(s), Oral, Daily, PRN sodium chloride nasal 0.9% spray, 1 spray(s), Nasal, BID With When Contact Information Kaden LOPES In 3 days 10/08/2023 EST [facility] [address], [place] [address]- Business (1) Additional Instructions: [facility]: Tab- [phone] Within 2 to 4 days Additional Instructions: Jose Cantu Within 1 to 2 weeks [facility] [address] [place] [address]- Business (1) Additional Instructions: Tanya Rubin Within 7 to 10 days [address] [place] [address]- [phone] Business (1) Additional Instructions: ITRI RICARDA In 3 days [address] [place] [address]- Business (1) Additional Instructions: Todd Catheter Care, [place] [place] [place]Custom) Extracted from: Title:APSO Note Author:Rima MARIN ate:10/10/23 1. SIRS (systemic inflammato ry response syndrome) (R65.10: Systemic inflammatory response syndrome (SIRS) of non-infectious origin without acute organ dysfunction) 2/2 bacteremia - unknown etiology -Wound and urine cx. do not match blood cx. - CXR: No acute process -PT/OT - pending -Tx. as below 2. Bacteremia (R78.81: Bacteremia) 10/05: Bl. cx. Providencia stuartii 10/07: repeat bl. c.x - NGTD -Consult ID: -Cipro 400mg BID, amox. 500mg TID - renally adjusted doses 3. Acute UTI (N39.0: Urinary tract infection, site not specified) Complicated UTI 2/2 chronic todd -Todd changed: 10/05 - in ED by urology -Urine cx. - Providencia rettgeri -Atb. as above 4. Acute kidney injury superimposed on CKD (N17.9: Acute kidney failure, unspecified) Likely 2/2 dehydration, UTI, urinary retention, ? ATN -CKD stage III/IV, Baseline Cr 1.7 - 1.9 -Renal US: no acute process, chronic cyst -Consult nephrology: -Corrected w/ atb, todd change -Trend BMP -Avoid nephrotoxic medications as much as possible 5. Open wound of left heel (S91.302A: Unspecified open wound, left foot, initial encounter) L foot xray: No acute process -Wound cx. Pseudomonas, enterococcus, proteus -Consult wound care: plan apprec. -F/U in wound clinic at d/c 6. Neurogenic bladder (N31.9: Neuromuscular dysfunction of bladder, unspecified) -Chronic todd 7. Chronic indwelling Todd catheter (Z97.8: Presence of other specified devices) CT pelvis: Abnormally positioned Todd catheter with balloon inflated in the penile urethra, possible cystitis. Per prev. provider note: -See by urology in ED w/ todd changed -Will likely need suprapubic cath. as outpt. 8. Hyperlactatemia (E87.20: Acidosis, unspecified) Resolved 9. Pressure sore (L89.90: Pressure ulcer of unspecified site, unspecified stage) Stage I on R/L buttocks - POA -Consult wound care - plan apprec. 10. Anemia (D64.9: Anemia, unspecified) Likely anemia of chronic disease -Baseline hgb. level - 8 - 9 -Ferrous sulfate -Hemoccult stool - pending -Anemia panel reviewed, no indication for IV iron or B12 tx. -Avoid heparin products -No acute bleeding noted, hemodynamically stable -Trend labs 11. HTN (hypertension), benign (I10: Essential (primary) hypertension) 12/06: add nifedipine per nephro -Imdur, metoprolol, nifedipine, 12. HLD (hyperlipidemia) (E78.5: Hyperlipidemia, unspecified) -Atorvastatin 13. T2DM (type 2 diabetes mellitus) (E11.9: Type 2 diabetes mellitus without complications) W/ peripheral neuropathy Accuchecks AC/HS w/ SSI prn -A1c - pending -Home regimen: gabapentin, aspart 6u TIDAC, glargine 15u daily -Gabapentin, Glargine 10u daily - uptitrate as rina. -Hypoglycemic protocol -Consult dye house wheel operator - pending 14. Bipolar disorder (F31.9: Bipolar disorder, unspecified) Stable, no SI/HI -Lamotrigine 15. Anxiety and depression (F41.9: Anxiety disorder, unspecified) -Duloxetine, ativan 16. Obesity (E66.9: Obesity, unspecified) BMI 34 -Educated on need for lifestyle modifications with goal of weight loss as obesity has a negative impact on co-morbid conditions. 17. Hx of right BKA (Z89.511: Acquired absence of right leg below knee) Supportive care 18. On deep vein thrombosis (DVT) prophylaxis (Z79.899: Other custodial (current) drug therapy) -Avoid heparin products 2/2 anemia -SCDs, early ambulation Orders: gabapentin, 300 mg = 1 cap(s), Cap, Oral, Once a day (at bedtime), Routine, Start date 10/10/23 21:00:00 EST, 10/10/23 8:00:00 EST lamotrigine, 25 mg = 1 tab(s), Tab, Oral, BID, Routine, Start date 10/10/23 9:00:00 EST, 10/10/23 8:00:00 EST ocular lubricant, 1 drop(s), Soln-Opth, OPTH, BID, NOW, Start date 10/10/23 9:01:00 EST Below the Knee Intermittent Pneumatic Compression Device Communication Order Physician to Pharmacy [F] Consult to Dietitian Adult Ferritin Folate Level HgbA1c Iron Level Lactate Dehydrogenase Occupational Therapy Evaluate Patient, Develop a Plan of Care and Implement Plan Physical Therapy Additional Tx Physical Therapy Evaluate Patient, Develop a Plan of Care and Implement Plan Reticulocyte Count Stool Occult Blood TIBC Calculated Vitamin B12 Level -Plan discussed w/ patient, nursing staff and CRM. This report was transcribed using voice recognition software. Every effort was made to ensure accuracy, however, inadvertently computerized bilingual spanish inbound sales mistakes may be present. Extracted from: Title:Progress Note * Author:Derick GAMEZ, Ted Kaiden e:10/10/23 Impression and Plan 1. BAILEE - due to urinary retention and UTI. may also have a component of volume mediated changes. With fluids and new todd catheter, kidney function has returned back to baseline. No need for emergent HD. Kidney ultrasound did not show any hydronephrosis. continue to avoid nephrotoxic agents 2. CKD stage 3-4 - baseline cr in the 1.7-1.9. Will see where the cr will level out at 3. UTI with chronic todd catheter - ucx growing Providenci and Bcx growing staph. s/p ceftriaxone, now on cipro and amoxicillin 4. HTN - nifedipine 30 mg once a day Extracted from: Title:Progress Note * Author:Ayad DE LA CRUZ, Monet Kitchen. Date:10/09/23 Impression and Plan 1. BAILEE - due to urinary retention and UTI. may also have a component of volume mediated changes. With fluids and new todd catheter, kidney function has returned back to baseline. No need for emergent HD. Kidney ultrasound did not show any hydronephrosis. continue to avoid nephrotoxic agents 2. CKD stage 3-4 - baseline cr in the 1.7-1.9. Will see where the cr will level out at 3. UTI with chronic todd catheter - ucx growing Providenci and Bcx growing GPC and GNR. continue on ceftriaxone 4. HTN - nifedipine 30 mg once a day started this morning. Extracted from: Title:APSO Note Author:Mary Soria MD Date: 10/09/23 1. SIRS (systemic inflammato ry response syndrome) (R65.10: Systemic inflammatory response syndrome (SIRS) of non-infectious origin without acute organ dysfunction) Due to bacteremia, source unknown. Blood, wound and urine cultures all resulted and none match up with the blood cx. On Ceftriaxone. Will transition to oral Abx, see below #2 2. Bacteremia (R78.81: Bacteremia) Currently on Rocephin. Blood cx + Providencia stuartii (susceptible to Levaquin) ID consult reviewed. Providencia in the blood does not meds match the Providencia in the urine. Heel culture reveals Pseudomonas, Enterococcus, Proteus. Discussed cultures with ID. Recommended oral Cipro 750mg BID and Amox 500mg TID (pharmacy to adjust doses renally) 3. Acute UTI (N39.0: Urinary tract infection, site not specified) Due to chronic indwelling Todd catheter Urine cx: Providencia rettgeri (susceptible to levaquin) 4. Open wound of left heel (S91.302A: Unspecified open wound, left foot, initial encounter) Culture reveals Pseudomonas, Enterococcus, Proteus Will need outpatient Wound Clinic referral. Case management checking with nursing facility. 5. Hyperlactatemia (E87.20: Acidosis, unspecified) Resolved. 6. Neurogenic bladder (N31.9: Neuromuscular dysfunction of bladder, unspecified) s/p chronic indwelling Todd catheter 7. Chronic indwelling Todd catheter (Z97.8: Presence of other specified devices) Seen by urology in the ED & had Todd changed by urologist. Will likely need a suprapubic catheter placed as an outpatient. 8. Acute kidney injury superimposed on CKD (N17.9: Acute kidney failure, unspecified) Multifactorial. Due to dehydration, UTI and urinary retention with possibility of ATN Improved. Creatinine currently 1.8, which is around baseline. Has CKD stage 3-4 at baseline Renal US - no hydro Nephrology consult reviewed. 9. Pressure sore (L89.90: Pressure ulcer of unspecified site, unspecified stage) Stage 1. No open areas. To right and left buttocks. Seen by Wound on 10/07. 10. HTN (hypertension), benign (I10: Essential (primary) hypertension) Started on Nifedipine daily. 11. T2DM (type 2 diabetes mellitus) (E11.9: Type 2 diabetes mellitus without complications) Probably uncontrolled. No prior A1C in past 2 years 12. HLD (hyperlipidemia) (E78.5: Hyperlipidemia, unspecified) Statin 13. Bipolar disorder (F31.9: Bipolar disorder, unspecified) Cymbalta, Lamictal 14. Anxiety and depression (F41.9: Anxiety disorder, unspecified) Ativan 15. Anemia (D64.9: Anemia, unspecified) Hb 8.4, no indication for transfusion 16. Obesity (E66.9: Obesity, unspecified) BMI 34 17. Hx of right BKA (Z89.511: Acquired absence of right leg below knee) Orders: amoxicillin, 500 mg = 1 cap(s), Cap, Oral, TID, NOW, Start date 10/09/23 11:19:00 EST ciprofloxacin, 500 mg = 1 tab(s), Tab, Oral, BID, NOW, Start date 10/09/23 11:18:00 EST zolpidem, 5 mg = 1 tab(s), Tab, Oral, Once a day (at bedtime) PRN Sleep, Routine, Start date 10/09/23 11:42:00 EST, 10/09/23 11:42:00 EST Extracted from: Title:Infection Admission H&P * Author:Rafi Castrejon M.D Date:10/08/23 Impression and Plan Diagnosis Bacteremia ? source Wound vs Urine [chronic todd]. Orders His Providencia in his blood does not match the Providencia species in his urine. Awaiting left heel culture to be finalized. Either way he needs to maintain on antibiotics as he is currently on ceftriaxone. The coagulase-negative staph in the blood culture is likely contaminant. Plain x-ray as above. Wound care with Aquacel Ag and cleansing has already been ordered. Follow-up blood cultures. Once cultures finalized as long as wounds or signs of improvement perhaps we can transition to oral option.. Extracted from: Title:APSO Note Author:Karyna DELATORRE Date:10/08/23 PLAN 1. SIRS (systemic inflammatory response syndrome) (R65.10: Systemic inflammatory response syndrome (SIRS) of non-infectious origin without acute organ dysfunction) -not sepsis, probably early sepsis, source likely from urinary tract as a result of some necrotizing tissue that was noted during the Todd cath replacement as is documented by Urology -blood, wound and urine cultures sent: all positive see below -Hyperlactemia likely multifactorial 2/2 SIRS, BAILEE on CKD -Ceftriaxone IV 2g daily 2. Acute UTI (N39.0: Urinary tract infection, site not specified) Complication of Todd catheter (T83.9XXA: Unspecified complication of genitourinary prosthetic device, implant and graft, initial encounter) Acute UTI 2/2 chronic indwelling cath -Seen by urology in the ED & had Todd changed by urologist -Likely will have suprapubic cath placed by Urology as outpatient per . Urine culture positive for Providencia Rettgeri 3. Neurogenic bladder (N31.9: Neuromuscular dysfunction of bladder, unspecified) See #1 4. Chronic indwelling Todd catheter (Z97.8: Presence of other specified devices) See #1 5. Acute kidney injury superimposed on CKD (N17.9: Acute kidney failure, unspecified) Likely multifactorial, including ATN and some dehydration Creatinine improving down to 2.1 today follows w/ baseline CR 1.7 -Maintenance fluids for now -Consult nephrology appreciated. -Strict Is and Os -Renal US reviewed. -As above 6. Bacteremia (R78.81: Bacteremia) Initial blood cultures returned positive 1 set for Providencia stuartii other set neg. Per micro does not appear contam. Repeat blood cultures sent 10/07 pending Consult ID pending. 7. Open wound of left heel (S91.302A: Unspecified open wound, left foot, initial encounter) Stage 2-? 3 left heel wound POA Consult wound care and follow protocol for now. .Wound culture returning positive for multiple species Await ID consult Continue Meropenem for now. 8. Pressure sore (L89.90: Pressure ulcer of unspecified site, unspecified stage) Stage 2 Wound consult. Follow wound protocol Was POA 9. Hx of right BKA (Z89.511: Acquired absence of right leg below knee) -Supportive care -Back to facility at later time 10. T2DM (type 2 diabetes mellitus) (E11.9: Type 2 diabetes mellitus without complications) -Sliding scale, DM diet -Glargine at later time 11. HLD (hyperlipidemia) (E78.5: Hyperlipidemia, unspecified) Statin 12. Bipolar disorder (F31.9: Bipolar disorder, unspecified) Cymbalta, Lamictal 13. Anxiety and depression (F41.9: Anxiety disorder, unspecified) Ativan 14. Anemia (D64.9: Anemia, unspecified) -No s/s of bleeding Hgb did drop to 7.6 type cross and transfuse <7.0 current 8.0 trended upwards. -Likely 2/2 to chronic disease -check iron panel, b12 and folate 15. 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 Will convert to inpt status as pt will require >2 midnight stays for further work up and treatment of above. Pt w/worsening renal function that requires nephrology consultation and recommendations. Extracted from: Title:Inpatient Consultation-Floor Code* Author: Ted Sepulveda MD Date:10/08/23 Impression and Plan 1. BAILEE - due to urinary retention and UTI. may also have a component of volume mediated changes. With fluids and new todd catheter, kidney function has return almost back to baseline. No need for emergent HD. Kidney ultrasound did not show any hydronephrosis. continue to avoid nephrotoxic agents 2. CKD stage 3-4 - baseline cr in the 1.7-1.9. Will see where the cr will level out at 3. UTI with chronic todd catheter - ucx growing Providenci and Bcx growing GPC and GNR. continue on ceftriaxone 4. HTN - will start on nifedipine 30 mg once a day Extracted from: Title:APSO Note Author:SAMEERA ROPERHILDAKaryna Date:10/07/23 PLAN 1. SIRS (systemic inflammatory response syndrome) (R65.10: Systemic inflammatory response syndrome (SIRS) of non-infectious origin without acute organ dysfunction) -not sepsis, probably early sepsis, source likely from urinary tract as a result of some necrotizing tissue that was noted during the Todd cath replacement as is documented by Urology -blood and urine cultures sent: both positive see below. -Hyperlactemia likely multifactorial 2/2 SIRS, BAILEE on CKD -Ceftriaxone IV 2g daily Pt w/bacteremia today see #6 Repeat blood cultures pending 10/07 Wound culture to left foot pending. 2. Complication of Todd catheter (T83.9XXA: Unspecified complication of genitourinary prosthetic device, implant and graft, initial encounter) -Seen by urology in the ED & had Todd changed by urologist -Likely will have suprapubic cath placed by Urology 3. Neurogenic bladder (N31.9: Neuromuscular dysfunction of bladder, unspecified) See #1 4. Chronic indwelling Todd catheter (Z97.8: Presence of other specified devices) See #1 5. Acute kidney injury superimposed on CKD (N17.9: Acute kidney failure, unspecified) Likely multifactorial, including ATN and some dehydration--improved some today. Creatinine has trended up to 3.1 today follows w/ baseline CR 1.7 -Maintenance fluids for now -Consult nephrology pending. -Strict Is and Os -Renal US 6 to 7 cm right upper pole renal cyst. Hydronephrosis 6. Bacteremia (R78.81: Bacteremia) Cultures obtained on admission are growing gram-positive cocci in clusters. Nonfermenting gram-negative rods which matches urine culture of Providencia Rettgeri. Patient is currently on ceftriaxone Consult ID pending. 6. Hyperlactatemia (E87.20: Acidosis, unspecified) Resolved w/IVF 7. Open wound of left heel (S91.302A: Unspecified open wound, left foot, initial encounter) Stage 2-? 3 left heel wound POA Consult wound care and follow protocol for now. Wound culture pending. Xray left foot pending. ? osteo Elevated CRP/Sed rate + procal Consult ID pending. 8. Pressure sore (L89.90: Pressure ulcer of unspecified site, unspecified stage) Stage 2 Wound consult. Follow wound protocol Was POA 9. Hx of right BKA (Z89.511: Acquired absence of right leg below knee) -Supportive care -Back to facility at later time 10. T2DM (type 2 diabetes mellitus) (E11.9: Type 2 diabetes mellitus without complications) -Sliding scale, DM diet -Glargine at later time 11. HLD (hyperlipidemia) (E78.5: Hyperlipidemia, unspecified) Statin 12. Bipolar disorder (F31.9: Bipolar disorder, unspecified) Cymbalta, Lamictal 13. Anxiety and depression (F41.9: Anxiety disorder, unspecified) Ativan 14. Anemia (D64.9: Anemia, unspecified) -No s/s of bleeding--globin has dropped to 7.6 10.1 and 24 hours. Did receive 6 L of fluid on admission. ? Dilutional -type and screen and transfuse if hemoglobin drops below 7.0 -Likely 2/2 to chronic disease 15. 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 Will convert to inpt status as pt will require >2 midnight stays for further work up and treatment of above. Pt w/worsening renal function that requires nephrology consultation and recommendations. Extracted from: Title:APSO Note Author:Karyna DELATORRE Date:10/06/23 PLAN 1. SIRS (systemic inflammatory response syndrome) (R65.10: Systemic inflammatory response syndrome (SIRS) of non-infectious origin without acute organ dysfunction) -not sepsis, probably early sepsis, source likely from urinary tract as a result of some necrotizing tissue that was noted during the Todd cath replacement as is documented by Urology -blood and urine cultures sent: will follow cultures and adjust PRN -Hyperlactemia likely multifactorial 2/2 SIRS, BAILEE on CKD -Ceftriaxone IV 2g daily 2. Complication of Todd catheter (T83.9XXA: Unspecified complication of genitourinary prosthetic device, implant and graft, initial encounter) -Seen by urology in the ED & had Todd changed by urologist -Likely will have suprapubic cath placed by Urology 3. Neurogenic bladder (N31.9: Neuromuscular dysfunction of bladder, unspecified) See #1 4. Chronic indwelling Todd catheter (Z97.8: Presence of other specified devices) See #1 5. Acute kidney injury superimposed on CKD (N17.9: Acute kidney failure, unspecified) Likely multifactorial, including ATN and some dehydration Creatinine has trended up to 3.1 today follows w/ baseline CR 1.7 -Maintenance fluids for now -Consult nephrology pending. -Strict Is and Os -Renal US -As above 6. Hyperlactatemia (E87.20: Acidosis, unspecified) Resolved w/IVF 7. Open wound of left heel (S91.302A: Unspecified open wound, left foot, initial encounter) Stage 2-? 3 left heel wound POA Consult wound care and follow protocol for now. 8. Pressure sore (L89.90: Pressure ulcer of unspecified site, unspecified stage) Stage 2 Wound consult. Follow wound protocol Was POA 9. Hx of right BKA (Z89.511: Acquired absence of right leg below knee) -Supportive care -Back to facility at later time 10. T2DM (type 2 diabetes mellitus) (E11.9: Type 2 diabetes mellitus without complications) -Sliding scale, DM diet -Glargine at later time 11. HLD (hyperlipidemia) (E78.5: Hyperlipidemia, unspecified) Statin 12. Bipolar disorder (F31.9: Bipolar disorder, unspecified) Cymbalta, Lamictal 13. Anxiety and depression (F41.9: Anxiety disorder, unspecified) Ativan 14. Anemia (D64.9: Anemia, unspecified) -No s/s of bleeding Trending Hgb levels as Hgb did drop to 7.6 however now up to 8.0 Type and cross and transfuse <7.0 -Likely 2/2 to chronic disease -check iron panel, b12 and folate 15. 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 Will convert to inpt status as pt will require >2 midnight stays for further work up and treatment of above. Pt w/worsening renal function that requires nephrology consultation and recommendations. Orders: atorvastatin, 80 mg = 2 tab(s), Tab, Oral, Bedtime, Routine, Start date 10/06/23 21:00:00 EST, 10/06/23 11:03:00 EST bisacodyl, 10 mg = 1 supp, Supp, Rectal, Daily PRN Constipation, Routine, Start date 10/06/23 11:03:00 EST, 10/06/23 11:03:00 EST cyanocobalamin, 500 mcg = 0.5 tab(s), Tab, Oral, Daily, Routine, Start date 10/07/23 9:00:00 EST, 10/06/23 11:03:00 EST docusate, 100 mg = 1 cap(s), Cap, Oral, BID, Routine, Start date 10/06/23 21:00:00 EST, 10/06/23 11:04:00 EST duloxetine, = 1 cap(s), Cap-EC, Oral, Daily, NOW, Start date 10/06/23 11:04:00 EST, 10/06/23 11:04:00 EST duloxetine, 30 mg = 1 cap(s), Cap-DR, Oral, Daily, NOW, Start date 10/06/23 11:04:00 EST, 10/06/23 11:04:00 EST ergocalciferol, 50,000 International_Unit = 1 cap(s), Cap, Oral, Daily, Routine, Start date 10/07/23 9:00:00 EST, 10/06/23 11:04:00 EST ferrous sulfate, 325 mg = 1 tab(s), Tab, Oral, Daily, Routine, Start date 10/07/23 9:00:00 EST, 10/06/23 11:04:00 EST insulin glargine, 10 unit(s), Injection-Insulin, SubCutaneous, Daily, NOW, Start date 10/06/23 11:04:00 EST, 10/06/23 11:04:00 EST isosorbide mononitrate, 30 mg = 1 tab(s), Tab-ER, Oral, qAM, NOW, Start date 10/06/23 11:05:00 EST, 10/06/23 11:05:00 EST lorazepam, 0.5 mg = 1 tab(s), Tab, Oral, BID PRN Agitation, Routine, Start date 10/06/23 11:05:00 EST, 10/06/23 11:05:00 EST melatonin, 5 mg, Tab, Oral, Once a day (at bedtime), Routine, Start date 10/06/23 21:00:00 EST, 10/06/23 11:05:00 EST metoprolol, 25 mg = 1 tab(s), Tab-ER, Oral, BID, NOW, Start date 10/06/23 11:05:00 EST, 10/06/23 11:05:00 EST nystatin topical, 1 manuel, Powder, Topical, BID, Routine, Start date 10/06/23 21:00:00 EST Sodium Chloride 0.9% intravenous solution 1,000 mL, 1,000 mL, IV, 75 mL/hr, for 1 dose(s), Stop date 10/07/23 0:33:00 EST, Routine, Start date 10/06/23 11:16:00 EST, 13.3 hour(s), Total volume (mL): 1,000, 100 kg, 2.19, m2 Basic Metabolic Panel Communication Order Consult to Wound Care Dressing Care/Change eGFR Extra Lav Tube Extracted from: Title:Admission H & P Author:Jorge GAMEZ, mad Date:10/05/23 63-year-old male with multip le comorbidities who was admitted after having a complication of his Todd cath he has SIRS potentially early sepsis there is does not quite meet sepsis criteria at this time. He was seen by urology who per their note appears to be planning for suprapubic cath. He is being admitted for SIRS. Assessment/Plan Complication of Todd cath Neurogenic bladder Chronic indwelling cath -Seen by urology in the ED & had todd changed by urologist -Likely will have suprapubic cath placed by Urology -They are on the case SIRS Hyperlactemia -not sepsis, probably early sepsis, source likely from urinary tract as a result of some necrotizing tissue that was noted during the Todd cath replacement as is documented by Urology -blood and urine cultures sent: will follow cultures and adjust PRN -LR, hyperlactemia lilekly multifacotrial 2/2 SIRS, BAILEE on CKD -CTX 2g daily BAILEE on CKD -Liley multifactorial, including ATN and some dehydration -Maintenance fluids for now, pressures are good -Strict Is and Os -Renal US -As above History Right BKA Prosthetic leg Resident of assisted living -Supportive care -Back to facility at later time Type 2 diabetes Hyperlipidemia Obesity -Sliding scale, DM diet -Glargine at later time Anxiety and depression Bipolar -Patient denies any suicide ideation, present ideation, suicidal plan or homicidal plan -Resume home medications Anemia -No s/s of bleeding -Likely 2/2 to chronic disease -check iron panel, b12 and folate Time: 55 mins Admit: Obs Plan: As above Extracted from: Title:Urology Consult Note Author:DAVID GAMEZ, Annalee Lee Date:10/05/23 Impression and Plan Impression: #1. This gentleman had a malplaced catheter with the Todd balloon inflated in the proximal penile urethra. 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 2. 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 He would greatly benefit from suprapubic tube placement. Plan: #1. He is getting 2 g of Rocephin IV in the ER. 2. I had a significant discussion with him about suprapubic tube placement. He understands the pros with this procedure. He is desirous to go forward. I instructed him that we would work on getting him scheduled to get this done within the next month or 2. Over 30 minutes of clinical time was spent talking with the ER doctors, nursing staff, reviewing the patient's CT and chart and doing his cystoscopy and catheter over a wire. Thank you for letting me take part in his care. Extracted from: Title:ED Note Author:Hubert Collins DO Date :10/05/23 Complication of Todd cathet er (T83.9XXA: Unspecified complication of genitourinary prosthetic device, implant and graft, initial encounter) Orders: HYDROmorphone, 0.5 mg = 0.5 mL, Injection, IntraMuscular, Once, Stop date 10/05/23 5:18:00 EST, STAT, Start date 10/05/23 5:18:00 EST, 10/05/23 5:18:00 EST morphine, 4 mg = 1 mL, Injection, IntraMuscular, Once, Stop date 10/05/23 2:17:00 EST, STAT, Start date 10/05/23 2:17:00 EST, 10/05/23 2:17:00 EST morphine, 2 mg = 0.5 mL, Injection, IntraMuscular, Once, Stop date 10/05/23 4:08:00 EST, STAT, Start date 10/05/23 4:08:00 EST, 10/05/23 4:08:00 EST Consult to Urology CT Pelvis w/o Contrast UA With Cult Reflex Addendum by Randy Valdes DO on October 05, 2023 11:48:54 EST pt signed out to me by the prior physician. the pt was seen by Dr. lopes and the catheter was removed. Pt is treated with Rocephin and d/c home to follow up with Urology in the outpt setting. Addendum by Randy Valdes DO on October 05, 2023 14:43:42 EST Upon getting the patient ready to be discharged repeat vitals were obtained patient is found to be febrile and tachycardic. Cultures were obtained lactate is positive. Patient likely has sepsis from UTI. He was treated with IV Rocephin here also given IV fluid bolus. He was given IV Tylenol. Heart rate has improved and vital signs are stable with stable blood pressure. Ultimately case discussed with hospitalist patient is admitted for additional evaluation and treatment. Additional diagnoses: Sepsis, UTI, BAILEE Future Appointments Appointment Date:10/14/2023 02:30:00 PM Scheduled Provider: Location:.ONCOLOGY Appointment Type:ONC Video Visit 30 (FT) Appointment Date:10/29/2023 10:15:00 AM Scheduled Provider: Location:[facility] Appointment Type:Urology CALL PAT FT Appointment Date:11/05/2023 08:00:00 AM Scheduled Provider: Location:[facility] Surgical [facility] Appointment Type:Urology FT Appointment Date:11/21/2023 09:30:00 AM Scheduled Provider:Jolene Gleason MD Location:[facility] Appointment Type:URO New Patient Future Scheduled Tests Radiology* US Retroperitoneal Complete 09/06/[address] [facility]12-02-2023 Hospital Discharge instructions Patient Education 10/05/2023 18:15:42 Todd Catheter Care, Male-[facility] [place]Custom[place] Todd Catheter Care, Male A Todd catheter is a soft, flexible tube that is placed into the bladder to drain urine. The catheter has a balloon to hold it inside the bladder. A Todd catheter may be inserted if: You leak urine or are not able to control when you urinate (urinary incontinence). You are not able to urinate when you need to (urinary retention). You had prostate surgery or surgery on the genitals. You have certain medical conditions, such as multiple sclerosis, dementia, or a spinal cord injury. To Prevent Infection: 1. Wash your hands with soap and water before and after handling your catheter. 2. Using mild soap and warm water on a clean washcloth; twice a day. Clean the area on your body closest to the catheter insertion site using a circular motion, moving away from the catheter. Never wipe toward the catheter because this could sweep bacteria up into theurethra and cause infection. Remove all traces of soap. Pat the area dry with a clean towel and reposition the foreskin. No tub baths. No lotions, powders, or sprays unless directed by your physician. 3. Keep the tube secure. Do not let the tube pull or catch when you are moving around. Attach the catheter to your leg so there is no tension on the catheter. Use adhesive tape or a leg strap. If you are using adhesive tape, remove any sticky residue left behind by the previous tape you used. 4. Replace wet leg straps with dry ones. 5. Wear cotton underwear to absorb moisture and keep hide or skin buffer. 6. Keep the drainage bag below the level of the bladder, but keep it off the floor. 7. Check throughout the day to be sure the catheter is working and urine is draining freely. Make sure the tubing does not become kinked or looped. 8. Do not pull on the catheter or try to remove it. Pulling could damage internal tissues. TAKING CARE OF THE DRAINAGE BAGS You will be given two drainage bags to take home. One is a large overnight drainage bag, and the other is a smaller leg bag that fits underneath clothing. You may wear the overnight bag at any time, but you should never wear the smaller leg bag at night, unless directed by your physician. Follow the instructions below for how to empty and change your drainage bags. Emptying the Drainage Bag You must empty your drainage bag when it is ? full. 1. Wash your hands with soap and water before and after handling your catheter. 2. Keep the drainage bag below your hips, below the level of your bladder. This stops urine from going back into the tubing and into your bladder. 3. Hold the dirty bag over the toilet or a clean container. 4. Open the pour spout at the bottom of the bag and empty the urine into the toilet or container. Do not let the pour spout touch the toilet, container, or any other surface. Doing so can place bacteria on the bag, which can cause an infection. 5. Clean the pour spout with a gauze pad or cotton ball that has rubbing alcohol on it. 6. Close the pour spout. 7. Attach the bag to your leg with adhesive tape or a leg strap. Changing the Drainage Bag 1. Wash your hands with soap and water before and after handling your catheter. 2. Pinch off the rubber catheter so that urine does not spill out. 3. Disconnect the catheter tube from the drainage tube at the connection valve. Do not let the tubes touch any surface. 4. Clean the end of the catheter tube with an alcohol wipe. Use a different alcohol wipe to clean the end of the drainage tube. 5. Connect the catheter tube to the drainage tube of the clean drainage bag. 6. Attach the new bag to the leg with adhesive tape or a leg strap. Avoid attaching the new bag tootightly. 7. Place a cap on the drainage bag not in use and store in a clean towel. SEEK MEDICAL CARE IF: Your urine is cloudy or smells. Your catheter starts to leak. Your catheter falls out or is pulled out. You have pain, swelling, redness, or pus where the catheter enters the body. You have pain in the abdomen, legs, lower back, or bladder. You have a fever of 100.4 F (38 C) or higher You see pink, red, dark, coffee colored, or pus-like urine. You have nausea, vomiting, or chills. You are not feeling better in 2 to 3 days or you are feeling worse. You are not draining urine into the bag or your bladder feels full. MAKE SURE YOU: Understand the reason you have the catheter. Understand and follow these instructions to care for the catheter. Will watch your condition. Drink 6-8 glasses of water or liquids per day to keep your urine clear. Avoid Caffeinated drinks. They can irritate the bladder and cause bladder spasms. Keep your follow up appointments and call with any concerns. Follow Up Care 10/05/2023 01:28:25 With:[facility]: Tab- [phone] Address:Unknown When:2 to 4 days With:Jose Cantu Address: [facility] [address] [place] [address] Business (1) When:1 to 2 weeks With:Tanya Rubin Address: [address] [place] [phone] Business (1) When:7 to 10 days With:Kaden LOPES Address: [facility] [address], [place] [address]- Business (1) When:10/08/2023 11:49:13 With:LAUREN CHOWDARY Address: [address] [place] [address] Business (1) When:Within 3 Day(s) [facility]12-02-2023 NoteWilson HealthComment on above:Result Comment: Electronically Signed By: Jorge GAMEZ, Rebekah\.br\Date and Time Signed: 10/05/23 15:38 [id number] Hospital Discharge instructions Follow Up Care 09/30/2023 13:53:00 With:Brian Perla Address: [facility] [place] [facility] [address] [place] [phone] Business (1) When: Unknown Comments:Obtain 24 hour urine for UPEP and skeletal bone survey. If abnormal then need BMBx for myeloma evalaution and amyloidosis eval as well.Myeloma labs, LDH, CBCD, CMP end of November 2023 and RTC with margaret marshall [facility]11-17-2023 NoteHNO ID: [id number] Author: Lauren Chowdary Service: ? Author Type: Physician Type: Progress Notes Filed: 09/23/2023 5:09 PM Note Text: [facility] CORRECTION NOTE NAME: LATA PAPPAS NO.: [id number] DATE OF SERVICE: 09/20/2023 [facility] DATE OF : 1960 Followup of multiple medical chronic issues He is currently resting in bed. He seems fairly comfortable. He denies any shortness of breath or chest pain. Meds reviewed. EXAMINATION: Afebrile, vital signs stable. HEENT: Intact. Lungs: Clear. Heart: Regular. Abdomen: Soft, nontender. Extremities: He is status post right BKA. Dressing present to his left foot that is clean and dry. IMPRESSION: 1. Diabetes mellitus type 2 - blood sugars are being monitored. 2. Peripheral vascular disease - continue to monitor circulation. 3. Hypertension - blood pressures within a good range. 4. Neurogenic bladder - continue indwelling Todd catheter. 5. Bipolar disorder - continue to monitor mood and behavior. Maintain current treatment. DICTATED BY: MD MIGUEL Balderas/Judi JOB# [id number] cc: [facility]11-17-2023 History of Present illness Narrative* Lauren Chowdary - 09/20/2023 12:00 AM EST [facility] CORRECTION NOTE NAME: LATA PAPPAS NO.: [id number] DATE OF SERVICE: 09/20/2023 [facility] DATE OF : 1960 Followup of multiple medical chronic issues He is currently resting in bed. He seems fairly comfortable. He denies any shortness of breath or chest pain. Meds reviewed. EXAMINATION: Afebrile, vital signs stable. HEENT: Intact. Lungs: Clear. Heart: Regular. Abdomen: Soft, nontender. Extremities: He is status post right BKA. Dressing present to his left foot that is clean and dry. IMPRESSION: 1. Diabetes mellitus type 2 - blood sugars are being monitored. 2. Peripheral vascular disease - continue to monitor circulation. 3. Hypertension - blood pressures within a good range. 4. Neurogenic bladder - continue indwelling Todd catheter. 5. Bipolar disorder - continue to monitor mood and behavior. Maintain current treatment. DICTATED BY: MD Jorge Balderas JOB# [id number] cc: [facility] Dis[facility] instructions Follow Up Care 08/29/2023 15:55:06 With:Brian Perla Address: [facility] [place] [facility] [place] [address] [phone] Business (1) When: Unknown Comments:labs today for CBCD, CMP, LDH, Retic, Erythropoietin, iron studies, B12, folate, copper, and myeloma labs.FOBT and UA with microscopic exam can be done at [facility].Referral to urology for evaluation for todd cath custodial use as last urology eval was in 2019.Phone or virtual visit in [address] [facility]10-26-2023 NoteHNO ID: [id number] Author: Rafy Steiner APRN.COMPUTER ASSEMBLER Service: ? Author Type: Nurse Specialist Type: Progress Notes Filed: 09/02/2023 7:19 AM Note Text: [facility] CORRECTION NOTE NAME: LATA PAPPAS NO.: [id number] DATE OF SERVICE: 08/29/2023 [facility] DATE OF : 1960 REASON FOR VISIT: The patient is a resident of [facility]. This is a monthly visit for multiple medical issues. For patient assessment found patient sitting on wheelchair. Patient does not appear to be in distress or discomfort. The patient states for the past 3 weeks has been having soreness to the right ear and decreased hearing. The patient states does have a history of cerumen impaction and feels as though this is occurring again. The patient states no fever or chills. No drainage from the ear. The patient states no cough, shortness of breath, or nausea, states he eats well and bowels have been moving. States has been drinking fluids. The patient does have Todd catheter, states no urinary symptoms. MEDICATIONS: Have been reviewed. PHYSICAL EXAMINATION: Temp 97.7, blood pressure 160/88, pulse 71, respirations 18, pulse ox 97% on room air, weight 228.8 pounds. Respiratory: Respirations are easy and unlabored with patient at rest. Lung sounds are clear. Heart: Heart rate and rhythm regular. Abdomen: Soft and nontender with palpation. Bowel sounds present x4. Genitourinary: Todd catheter is intact, it is draining clear yellow urine. Extremities: Left lower extremity fracture boot is intact. No swelling is identified. EENT: Using otoscope visualized bilateral ears. Right auditory canal without redness or draiange. Unable to visualize tympany due to cerumen impaction. Left auditory canal without reness or draiange. Unable to visualize tympany due to occlusion cermun. IMPRESSION AND PLAN: 1. Hypertension. The patient's record review shows patient has been having hypertensive episodes, increasing metoprolol tartrate 25 mg b.i.d., monitor blood pressures closely. 2. Cerumen impaction. Debrox x5 days, then irrigate. 3. Peripheral vascular disease, monitor for ischemia or cyanosis. 4. Diabetes. The patient does have a hyperglycemic reading of 265. The patient has been having consistent elevated blood sugars, on Lantus, NovoLog routine sliding scale, we will increase Lantus. 5. History of left hip fracture, the patient has no complaints of pain at this time. 6. Neurogenic bladder, continue Todd catheter. 7. Bipolar disorder. The patient does follow with psychiatric services, is in the lockdown unit, on Cymbalta, lamotrigine, lorazepam as needed. DICTATED BY: MURALI Plaza JOB# [id number] cc: [facility]10-26-2023 History of Present illness Narrative* Rafy Steiner, XIMENA.COMPUTER ASSEMBLER - 08/29/2023 12:00 AM EDT [facility] HOME NOTE NAME: LATA PAPPAS NO.: [id number] DATE OF SERVICE: 08/29/2023 [facility] DATE OF : 1960 REASON FOR VISIT: The patient is a resident of [facility]. This is a monthly visit for multiple medical issues. For patient assessment found patient sitting on wheelchair. Patient does not appear to be in distress or discomfort. The patient states for the past 3 weeks has been having soreness to the right ear and decreased hearing. The patient states does have a history of cerumen impaction and feels as though this is occurring again. The patient states no fever or chills. No drainage from the ear. The patient states no cough, shortness of breath, or nausea, states he eats well and bowels have been moving. States has been drinking fluids. The patient does have Todd catheter, states no urinary symptoms. MEDICATIONS: Have been reviewed. PHYSICAL EXAMINATION: Temp 97.7, blood pressure 160/88, pulse 71, respirations 18, pulse ox 97% on room air, weight 228.8 pounds. Respiratory: Respirations are easy and unlabored with patient at rest. Lung sounds are clear. Heart: Heart rate and rhythm regular. Abdomen: Soft and nontender with palpation. Bowel sounds present x4. Genitourinary: Todd catheter is intact, it is draining clear yellowurine. Extremities: Left lower extremity fracture boot is intact. No swelling is identified. EENT: Using otoscope visualized bilateral ears. Right auditory canal without redness or draiange. Unable to visualize tympany due to cerumen impaction. Left auditory canal without reness or draiange. Unableto visualize tympany due to occlusion cermun. IMPRESSION AND PLAN: 1. Hypertension. The patient's record review shows patient has been having hypertensive episodes, increasing metoprolol tartrate 25 mg b.i.d., monitor blood pressures closely. 2. Cerumen impaction. Debrox x5 days, then irrigate. 3. Peripheral vascular disease, monitor for ischemia or cyanosis. 4. Diabetes. The patient does have a hyperglycemic reading of 265. The patient has been having consistent elevated blood sugars, on Lantus, NovoLog routine sliding scale, we will increase Lantus. 5. History of left hip fracture, the patient has no complaints of pain at this time. 6. Neurogenic bladder, continue Todd catheter. 7. Bipolar disorder. The patient does follow with psychiatric services, is in the lockdown unit, on Cymbalta, lamotrigine, lorazepam as needed. DICTATED BY: MURALI Plaza JOB# [id number] cc:DR [facility] documented in this encounterCincinnati [facility]09-[facility]23 NoteHNO ID: [id number] Author: Lauren Chowdary Service: ? Author Type: Physician Type: Progress Notes Filed: 07/26/2023 4:39 PM Note Text: [facility] NOTE NAME: MIKAYLA PAPPASCHERELLE NO.: [id number] DATE OF SERVICE: 07/25/2023 [facility] DATE OF : 1960 Follow up multiple medical chronic issues. He is currently lying in bed with his eyes closed as usual. He does not appear to be in any distress. Nursing reports no new problems. He is not verbalizing much. MEDICATIONS: Reviewed. EXAMINATION: Afebrile, vital signs stable. HEENT: Intact. Lungs: Clear. Heart: Regular. Abdomen: Soft, nontender. Extremities: Mild edema on the left side. He does have a dressing that is clean and dry. He is status post right BKA. IMPRESSION: 1. Hypertension. Blood pressures is within a fair range. 2. Peripheral vascular disease - monitor for any signs of ischemia or cyanosis. 3. Diabetes mellitus type 2- blood sugars have been within a fair range. 4. Recent left hip fracture repair - continue supportive care. 5. Neurogenic bladder - maintain current indwelling Todd catheter. 6. Bipolar disorder - continue to monitor his mood and behavior. He does need lots of encouragement. Maintain current course of therapy. DICTATED BY: MD MIGUEL Balderas/Judi JOB# [id number] cc:DR [facility]09-21-2023 History of Present illness Narrative* Lauren Chowdary - 07/25/2023 12:00 AM EDT [facility] NOTE NAME: LATA PAPPAS NO.: [id number] DATE OF SERVICE: 07/25/2023 [facility] DATE OF : 1960 Follow up multiple medical chronic issues. He is currently lying in bed with his eyes closed as usual. He does not appear to be in any distress. Nursing reports no new problems. He is not verbalizing much. MEDICATIONS: Reviewed. EXAMINATION: Afebrile, vital signs stable. HEENT: Intact. Lungs: Clear. Heart: Regular. Abdomen: Soft, nontender. Extremities: Mild edema on the left side. He does have a dressing that is clean and dry. He is status post right BKA. IMPRESSION: 1. Hypertension. Blood pressures is within a fair range. 2. Peripheral vascular disease - monitor for any signs of ischemia or cyanosis. 3. Diabetes mellitus type 2- blood sugars have been within a fair range. 4. Recent left hip fracture repair - continue supportive care. 5. Neurogenic bladder - maintain current indwelling Todd catheter. 6. Bipolar disorder - continue to monitor his mood and behavior. He does need lots of encouragement. Maintain current course of therapy. DICTATED BY: MD MIGUEL Balderas/Judi JOB# [id number] cc: [facility] documented in this encounterCincinnati [facility]08-02-2023 NoteHNO ID: [id number] Author: Rafy Steiner APRN.COMPUTER ASSEMBLER Service: ? Author Type: Nurse Specialist Type: Progress Notes Filed: 06/09/2023 7:49 PM Note Text: [facility] CORRECTION NOTE NAME: LATA PAPPAS NO.: [id number] DATE OF SERVICE: 06/05/2023 [facility] DATE OF : 1960 REASON FOR VISIT: The patient is a resident of [facility]. This is a monthly visit for multiple medical issues. For the patient's assessment, found the patient sitting in dining area, watching television. The patient does not appear to be in distress or discomfort. The patient states does have pain to the left hip with therapy services only. States pain resolves with rest. States no other complaints of cough, shortness of breath. No fever, chills, nausea. States appetite is good and bowels have been moving. The patient does have Todd catheter. States has been drinking fluids. Denies urinary symptoms. MEDICATIONS: Medications have been reviewed. PHYSICAL EXAMINATION: Temp 97.3, blood pressure 136/82, pulse 86, respirations 18, pulse ox 97% on room air. Weight 206.8 pounds. Respiratory: Respirations are easy and unlabored with the patient at rest. Lung sounds clear. Heart: Heart rate and rhythm are regular. Abdomen: Soft, nontender with palpation. Bowel sounds present x4. Genitourinary: Todd catheter is intact, it is draining slightly cloudy, yellow urine. Extremities: Left lower extremity mildly edematous. Dressing is dry and intact. IMPRESSION AND PLAN: 1. Fracture left hip subsequent encounter with routine healing. The patient continues to do therapy services. The patient will continue to follow with Orthopedic services. Currently on gabapentin, cyclobenzaprine, Tylenol. 2. Neurogenic bladder. The patient continues with Todd catheter. 3. Recurrent urinary tract infection. No urinary symptoms at this time. 4. Diabetes. The patient has glycemic reading of 321 today. On Humalog per sliding scale. NovoLog routine and Lantus. 5. Hypertension. The patient is normotensive at this time. Continue antihypertensives. 6. Peripheral vascular/peripheral artery disease. Continue to monitor ischemia or cyanosis. 7. Bipolar disorder. The patient follows with Psychiatric services as needed. On lamotrigine, Cymbalta. Continue to monitor moods and behavior. DICTATED BY: MURALI Plaza JOB# [id number] cc:DR [facility]08-02-2023 History of Present illness Narrative* Rafy Steiner APRN.COMPUTER ASSEMBLER - 06/05/2023 12:00 AM EDT [facility] NOTE NAME: ALEXANDRALATA NO.: [id number] DATE OF SERVICE: 06/05/2023 [facility] DATE OF : 1960 REASON FOR VISIT: The patient is a resident of [facility]. This is a monthly visit for multiple medical issues. For the patient's assessment, found the patient sitting in dining area, watching television. The patient does not appear to be in distress or discomfort. The patient states does have pain to the lefthip with therapy services only. States pain resolves with rest. States no other complaints of cough, shortness of breath. No fever, chills, nausea. States appetite is good and bowels have been moving. The patient does have Todd catheter. States has been drinking fluids. Denies urinary symptoms. MEDICATIONS: Medications have been reviewed. PHYSICAL EXAMINATION: Temp 97.3, blood pressure 136/82, pulse 86, respirations 18, pulse ox 97% on room air. Weight 206.8 pounds. Respiratory: Respirations are easy and unlabored with the patient at rest. Lung sounds clear. Heart: Heart rate and rhythm are regular. Abdomen: Soft, nontender with palpation. Bowel sounds present x4. Genitourinary: Todd catheter is intact, it is draining slightly cloudy, yellow urine. Extremities: Left lower extremity mildly edematous. Dressing is dry and intact. IMPRESSION AND PLAN: 1. Fracture left hip subsequent encounter with routine healing. The patient continues to do therapyservices. The patient will continue to follow with Orthopedic services. Currently on gabapentin, cyclobenzaprine, Tylenol. 2. Neurogenic bladder. The patient continues with Todd catheter. 3. Recurrent urinary tract infection. No urinary symptoms at this time. 4. Diabetes. The patient has glycemic reading of 321 today. On Humalog per sliding scale. NovoLog routine and Lantus. 5. Hypertension. The patient is normotensive at this time. Continue antihypertensives. 6. Peripheral vascular/peripheral artery disease. Continue to monitor ischemia or cyanosis. 7. Bipolar disorder. The patient follows with Psychiatric services as needed. On lamotrigine, Cymbalta. Continue to monitor moods and behavior. DICTATED BY: MURALI Plaza/Judi JOB# [id number] cc: [facility] documented in this encounterCincinnati [facility]07-20-2023 NoteHNO ID: [id number] Author: Rafy Steiner APRN.COMPUTER ASSEMBLER Service: ? Author Type: Nurse Specialist Type: Progress Notes Filed: 05/24/2023 9:48 AM Note Text: [facility] CORRECTION NOTE NAME: LATA PAPPAS NO.: [id number] DATE OF SERVICE: 05/23/2023 [facility] DATE OF : 1960 REASON FOR VISIT: The patient is a resident of [facility]. This is a skilled visit for fracture left hip and subsequent encounter with repair and other medical concerns. Upon entering the room, found patient calm, alert, in low-Smalls's position with therapy at bedside. The patient does not appear to be in distress or discomfort. Therapy states patient is doing well with her services and has been progressing. The patient states does have some pain to the left thigh with therapy services and states the pain is controlled and has no pain at this time. The patient does complain of cough, states no shortness of breath. States cough is productive. The patient states he has poor vision at this time, but states that he is to see Retinology Services on May 27, 2023. The patient states no fever, chills, or nausea. States has been eating does complain of constipation. States bowels moved a few days ago, but still complains of feeling bloated and constipated. The patient states has been drinking fluids. Denies urinary symptoms. MEDICATIONS: Have been reviewed. PHYSICAL EXAMINATION: Temp 97.3, blood pressure 136/82, pulse 86, respirations 18, pulse ox 97% on room air and weight 218.6 pounds. Respirations are easy and unlabored with patient at rest. Lung sounds are clear. Heart rate and rhythm regular. Abdomen is soft, nontender with palpation. Bowel sounds present x4. Extremities: left lower extremity very mildly edematous. Posterior left foot dressing is dry and intact. Musculoskeletal: The patient does have limited range of motion to the left lower extremity, but is able to lift it off the bed. Mild swelling. No bruising, no erythema, and no abnormal drainage is identified to the left hip. Surgical incision area and dressing is dry and intact. Full sensorium as stated distal to the foot. The patient states does have neuropathy on a normal basis to the foot. States no unusual neuropathy. Left pedal pulses palpable. IMPRESSION: 1. Fracture, left hip, subsequent encounter with routine healing. The patient will continue to follow with Orthopedic Services, on acetaminophen. Continue to monitor for neurovascular compromise. The patient is working well with Therapy Services. 2. Neurogenic bladder. The patient continues with Todd catheter. 3. Recurrent urinary tract infection. No urinary symptoms are identified at this visit. 4. Diabetes. The patient has fair glycemic control. Last blood sugar 168, on Novolog routine. Sliding scale Lantus. 5. Hypertension. The patient has fair blood pressure control. Continue antihypertensives. 6. Peripheral vascular/peripheral artery disease. Continue to monitor for ischemia, cyanosis, or on aspirin. 7. Bipolar disorder. The patient does complain of intermittent episodes of depression. The patient will be seeing Psychiatric Services, on lamotrigine. DICTATED BY: MURALI Plaza/Judi JOB# [id number] cc:DR [facility]07-17-2023 NoteHNO ID: [id number] Author: Lauren Chowdary Service: ? Author Type: Physician Type: Progress Notes Filed: 05/21/2023 3:19 PM Note Text: [facility] CORRECTION NOTE NAME: MIKAYLA PAPPASJOANNACELIA NO.: [id number] DATE OF SERVICE: 05/20/2023 [facility] DATE OF : 1960 Followup skilled care/multiple medical chronic issues He is currently lying in bed with his eyes closed. He appears to be sleeping. He is in no distress. Nursing reports no new problems. He has had no shortness of breath or chest pain. Meds reviewed. EXAMINATION: Afebrile, vital signs stable. HEENT: Intact. Lungs: Clear. Heart: Regular. Abdomen: Soft, obese, nontender. Extremities: No edema. He is status post previous right [id number] amputation. IMPRESSION: 1. Status post recent surgical repair of left femoral neck fracture secondary to fall - continue current rehab services. 2. Neurogenic bladder with chronic indwelling Todd catheter and recurrent urinary tract infection - continue to monitor urinary symptoms closely. 3. Diabetes mellitus type 2 - blood sugars have been within a fair range. 4. Hypertension - blood pressures are controlled. 5. Peripheral vascular disease - monitor for any signs of ischemia or cyanosis. 6. Depressive disorder with bipolar disorder - monitor his mood and behavior. Maintain current course of therapy. DICTATED BY: MD MIGUEL Balderas/Judi JOB# [id number] cc: [facility]07-17-2023 History of Present illness Narrative* Lauren Chowdary - 05/20/2023 12:00 AM EDT [facility] CORRECTION NOTE NAME: LATA PAPPAS NO.: [id number] DATE OF SERVICE: 05/20/2023 [facility] DATE OF : 1960 Followup skilled care/multiple medical chronic issues He is currently lying in bed with his eyes closed. He appears to be sleeping. He is in no distress.Nursing reports no new problems. He has had no shortness of breath or chest pain. Meds reviewed. EXAMINATION: Afebrile, vital signs stable. HEENT: Intact. Lungs: Clear. Heart: Regular. Abdomen: Soft, obese, nontender. Extremities: No edema. He is status post previous right [id number] amputation. IMPRESSION: 1. Status post recent surgical repair of left femoral neck fracture secondary to fall - continue current rehab services. 2. Neurogenic bladder with chronic indwelling Todd catheter and recurrent urinary tract infection - continue to monitor urinary symptoms closely. 3. Diabetes mellitus type 2 - blood sugars have been within a fair range. 4. Hypertension - blood pressures are controlled. 5. Peripheral vascular disease - monitor for any signs of ischemia or cyanosis. 6. Depressive disorder with bipolar disorder - monitor his mood and behavior. Maintain current course of therapy. DICTATED BY: MD Jorge Balderas JOB# [id number] cc: [facility] documented in this encounterC[facility]innati [facility]07-11-2023 NoteHNO ID: [id number] Author: Rafy Steiner APRN.COMPUTER ASSEMBLER Service: ? Author Type: Nurse Specialist Type: Progress Notes Filed: 05/16/2023 1:29 PM Note Text: [facility] CORRECTION NOTE NAME: LATA PAPPAS NO.: [id number] DATE OF SERVICE: 05/14/2023 [facility] DATE OF : 1960 REASON FOR VISIT: The patient is a resident of [facility]. This is a skilled visit for fracture of the left hip subsequent encounter with routine healing and other medical concerns. Upon entering room, found the patient sleeping in supine position. The patient does not appear to be in distress od discomfort, is easily aroused. Abductor pillow was noted to be intact. The patient states has pain to the left hip pain, is being controlled with current medication regimen. States full sensorium on the left lower extremity. The patient states no cough, shortness of breath. No fever, chills, or nausea. States she has been eating fairly well. States bowels have been moving. The patient does have a Todd catheter. States has been drinking fluids. Denies urinary symptoms. MEDICATIONS: Medications have been reviewed. PHYSICAL EXAMINATION: Temp 97.3, blood pressure 136/82, pulse 86, respirations 18, pulse ox 97% on room air. Weight 218.6 pounds. Respiratory: Respirations are easy and unlabored with the patient at rest. Lung sounds clear. Heart: Heart rate and rhythm are regular. Abdomen: Soft, nontender with palpation. Bowel sounds present x4. Genitourinary: Todd catheter is intact. It is draining clear yellow urine. Extremities: The patient does have limited range of motion to left lower extremity, full sensorium stated. Left pedal pulse faint, positive. Edema is noted to left lower extremity. Left hip incision, dressing is dry and intact and left undisturbed at this time. Left foot dressing is dry and intact. LAB DATA: Labs reviewed May 09, 2023. CBC abnormals - hemoglobin 8.7, hematocrit 28.9, RBC 2.86, MCV 101.0, MCHC 30.1, eosinophil percentage 8.1, eosinophil absolute 0.62, monocyte percentage 13.5, monocyte absolute 1.03. IMPRESSION AND PLAN: 1. Fracture left hip subsequent encounter with routine healing. On cyclobenzaprine, acetaminophen. Continue abductor pillow. Continue to follow with orthopedic services. Continue to follow with physical therapy. Cool compress to the left hip as needed q.2 hours x20 minutes. 2. Anemia. On ferrous sulfate. Hemoglobin 8.7. 3. Diabetes. The patient has glycemic reading of 299. On Lantus, Humalog per sliding scale. 4. Neurogenic bladder. Indwelling Todd catheter continues. 5. Urinary tract infection. No urinary symptoms identified. 6. Hypertension. The patient has fair blood pressure control. Continue antihypertensive. 7. Orthostatic hypotension. Continue to encourage fluids, position the patient slowly. 8. Peripheral vascular/peripheral artery disease. On aspirin. Continue to monitor ischemia or cyanosis. DICTATED BY: MURALI Plaza/Judi JOB# [id number] cc: [facility]07-11-2023 History of Present illness Narrative* Rafy Steiner APRN.COMPUTER ASSEMBLER - 05/14/2023 12:00 AM EDT [facility] HOME NOTE NAME: ALEXANDRA JESUSANGIE NO.: [id number] DATE OF SERVICE: 05/14/2023 [facility] DATE OF : 1960 REASON FOR VISIT: The patient is a resident of [facility]. This is a skilled visit for fracture of the left hip subsequent encounter with routine healing and other medical concerns. Upon entering room, found the patient sleeping in supine position. The patient does not appear to be in distress od discomfort, is easily aroused. Abductor pillow was noted to be intact. The patient states has pain to the left hip pain, is being controlled with current medication regimen. States full sensorium on the left lower extremity. The patient states no cough, shortness of breath. No fever, chills, or nausea. States she has been eating fairly well. States bowels have been moving. The patient does have a Todd catheter. States has been drinking fluids. Denies urinary symptoms. MEDICATIONS: Medications have been reviewed. PHYSICAL EXAMINATION: Temp 97.3, blood pressure 136/82, pulse 86, respirations 18, pulse ox 97% on room air. Weight 218.6 pounds. Respiratory: Respirations are easy and unlabored with the patient at rest. Lung sounds clear. Heart: Heart rate and rhythm are regular. Abdomen: Soft, nontender with palpation. Bowel sounds present x4. Genitourinary: Todd catheter is intact. It is draining clear yellow urine. Extremities: The patient does have limited range of motion to left lower extremity, full sensorium stated. Left pedal pulse faint, positive. Edema is noted to left lower extremity. Left hip incision, dressing is dry and intact and left undisturbed at this time. Left foot dressing is dry andintact. LAB DATA: Labs reviewed May 09, 2023. CBC abnormals - hemoglobin 8.7, hematocrit 28.9, RBC 2.86, MCV 101.0, MCHC 30.1, eosinophil percentage 8.1, eosinophil absolute 0.62, monocyte percentage 13.5, monocyte absolute 1.03. IMPRESSION AND PLAN: 1. Fracture left hip subsequent encounter with routine healing. On cyclobenzaprine, acetaminophen. Continue abductor pillow. Continue to follow with orthopedic services. Continue to follow with physical therapy. Cool compress to the left hip as needed q.2 hours x20 minutes. 2. Anemia. On ferrous sulfate. Hemoglobin 8.7. 3. Diabetes. The patient has glycemic reading of 299. On Lantus, Humalog per sliding scale. 4. Neurogenic bladder. Indwelling Todd catheter continues. 5. Urinary tract infection. No urinary symptoms identified. 6. Hypertension. The patient has fair blood pressure control. Continue antihypertensive. 7. Orthostatic hypotension. Continue to encourage fluids, position the patient slowly. 8. Peripheral vascular/peripheral artery disease. On aspirin. Continue to monitor ischemia or cyanosis. DICTATED BY: MURALI Plaza JOB# [id number] cc:DR [facility] documented in this encounterCincinnati [facility]07-09-2023 [facility]:Result Comment: Electronically Signed By: KEYUR GAMEZ, William\.br\Date and Time Signed: 05/12/23 12:55 [id number] NoteHNO ID: [id number] Author: Lauren Chowdary Service: ? Author Type: Physician Type: Progress Notes Filed: 05/10/2023 6:59 PM Note Text: [facility] CORRECTION NOTE NAME: LATA PAPPAS NO.: [id number] DATE OF SERVICE: 05/09/2023 [facility] DATE OF : 1960 Readmission History and Physical HISTORY OF PRESENT ILLNESS: The patient is a 62-year-old male who was admitted back to us from [facility] with a diagnosis of status-post surgical repair of acute left femoral neck fracture secondary to accidental mechanical fall, recent ESBL Proteus mirabilis urinary tract infection with chronic indwelling Todd catheter for neurogenic bladder, hypertension, chronic kidney disease, anemia of chronic disease, diabetes mellitus type 2, posttraumatic stress disorder, previous CVA, 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 He was initially admitted to the hospital after experiencing an accidental mechanical fall resulting in severe left hip pain. Evaluation did reveal findings consistent with a femoral neck fracture for which she did undergo surgical repair. I do not have full details regarding his recent hospitalization. His condition was stabilized and he is now admitted back to our facility for continued therapy and long-term care. REVIEW OF SYSTEMS: The patient is currently lying in bed. His eyes are closed. He will barely open his eyes and respond to my questions. He is unable to give me any details regarding his recent fall or hospitalization or past medical history. He initially states that this is the kind of behavior he normally exhibits where he basically ignores everyone. No reports of any shortness of breath. He has no documented history of COPD, asthma, bronchitis, or recent pneumonia. He has had previous COVID infection. He does have a history of Ouzrv-Artjuvhje-[place]aruk with previous radioablation therapy. He has had no recent chest pain or angina. His oral intake has been fair. No history of bleeding ulcers, hepatitis, or melena. No prior seizures. He has had prior strokes with no obvious significant residual. He does have history of hypertension. He is also diabetic type 2 with a previous left heel ulcer. He is status post previous right below-knee amputation with underlying peripheral vascular disease. FAMILY HISTORY: Significant for hypertension. SOCIAL/FUNCTIONAL HISTORY: He does not smoke or abuse alcohol. He has been a long-term resident here. 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 MEDICATIONS: Aspirin 325 mg b.i.d., Colace b.i.d., cyanocobalamin 500 mcg daily, Cymbalta 90 mg daily, ergocalciferol 50,000 units weekly, ferrous sulfate 325 mg daily, gabapentin 300 mg at bedtime, Humalog sliding scale coverage, isosorbide mononitrate 30 mg daily, Lantus insulin 10 units subcu daily, Lipitor 60 mg at bedtime, melatonin at bedtime, metoprolol tartrate 25 mg daily, NovoLog insulin 60 units subcu before meals, Percocet p.r.n., Prilosec 20 mg daily, and saline nasal spray b.i.d. ALLERGIES: DEPAKOTE AND DILANTIN. EXAMINATION: Afebrile, his vital signs are stable. He is in no distress. He appears chronically ill. He is somewhat obese. HEENT: Eyes are closed. Ears are intact. Lungs: Clear. Heart: Regular. Abdomen: Soft, obese, and nontender. Extremities: No edema. He is status post right jatrp-uot-prgq amputation. Nursing indicates that his hip incision is intact. He does have generalized weakness. IMPRESSION: 1. Status post surgical repair of acute left femoral neck fracture secondary to accidental fall - patient will continue to receive daily incisional wound care. He is on aspirin for deep venous thrombosis prophylaxis. We will obtain follow up CBC to rule out postoperative blood loss anemia on top of underlying chronic anemia. He will follow up with Orthopedics as an outpatient as indicated. 2. Diabetes mellitus type 2 - maintain current diabetic management. Monitor blood sugars closely. 3. Neurogenic bladder with chronic indwelling catheter with recent ESBL Proteus mirabilis urinary tract infection - continue to monitor urinary symptoms closely. 4. Hypertension - monitor blood pressures closely and make adjustment as needed. He recently did have orthostatic hypotension. We will make adjustment as indicated. 5. Peripheral vascular disease with previous right oyyna-dvq-ycnd amputation - continue to monitor for any signs of ischemia or cyanosis. 6. Bipolar disorder - we will continue to monitor his mood and behavior closely. He has been followed by [facility]. 7. Functional assessment - he will be receiving r (more content not included)...[facility]07-06-2023 History of Present illness Narrative* Lauren Amber Ricarda - 05/09/2023 12:00 AM EDT [facility] NOTE NAME: LATA PAPPAS NO.: [id number] DATE OF SERVICE: 05/09/2023 [facility] DATE OF : 1960 Readmission History and Physical HISTORY OF PRESENT ILLNESS: The patient is a 62-year-old male who was admitted back to us from [facility] with a diagnosis of status-post surgical repair of acute left femoral neck fracture secondary to accidental mechanical fall, recent ESBL Proteus mirabilis urinary tract infection with chronic indwelling Todd catheter for neurogenic bladder, hypertension, chronic kidney disease, anemia of chronic disease, diabetes mellitus type 2, posttraumatic stress disorder, previous CVA, Tfddj-Exfuooara-Jbasm syndrome with previous radioablation therapy, peripheral vascular disease with previous right vghyn-wql-wwvb amputation, history of aggressive behavior and homicidal ideation, previous Todd infection, major depressive disorder with bipolar disorder, obesity, and generalized weakness. He was initially admitted to the hospital after experiencing an accidental mechanical fallresulting in severe left hip pain. Evaluation did reveal findings consistent with a femoral neck fra cture for which she did undergo surgical repair. I do not have full details regarding his recent hospitalization. His condition was stabilized and he is now admitted back to our facility for continued therapy and long-term care. REVIEW OF SYSTEMS: The patient is currently lying in bed. His eyes are closed. He will barely open his eyes and respond to my questions. He is unable to give me any details regarding his recent fall or hospitalization or past medical history. He initially states that this is the kind of behavior henormally exhibits where he basically ignores everyone. No reports of any shortness of breath. He has no documented history of COPD, asthma, bronchitis, or recent pneumonia. He has had previous COVID infection. He does have a history of Khjnz-Vpujqhgpv-Acrgi with previous radioablation therapy. He has had no recent chest pain or angina. His oral intake has been fair. No history of bleeding ulcers,hepatitis, or melena. No prior seizures. He has had prior strokes with no obvious significant residual. He does have history of hypertension. He is also diabetic type 2 with a previous left heel ulcer. He is status post previous right below-knee amputation with underlying peripheral vascular disease. FAMILY HISTORY: Significant for hypertension. SOCIAL/FUNCTIONAL HISTORY: He does not smoke or abuse alcohol. He has been a long-term resident here. 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 MEDICATIONS: Aspirin 325 mg b.i.d., Colace b.i.d., cyanocobalamin 500 mcg daily, Cymbalta 90 mg daily, ergocalciferol 50,000 units weekly, ferrous sulfate 325 mg daily, gabapentin 300 mg at bedtime, Humalog sliding scale coverage, isosorbide mononitrate 30 mg daily, Lantus insulin 10 units subcu daily, Lipitor 60 mg at bedtime, melatonin at bedtime, metoprolol tartrate 25 mg daily, NovoLog insulin 60 units subcu before meals, Percocet p.r.n., Prilosec 20 mg daily, and saline nasal spray b.i.d. ALLERGIES: DEPAKOTE AND DILANTIN. EXAMINATION: Afebrile, his vital signs are stable. He is in no distress. He appears chronically ill. He is somewhat obese. HEENT: Eyes are closed. Ears are intact. Lungs: Clear. Heart: Regular. Abdomen: Soft, obese, and nontender. Extremities: No edema. He is status post right zmnhb-wug-odal amputation. Nursing indicates that his hip incision is intact. He does have generalized weakness. IMPRESSION: 1. Status post surgical repair of acute left femoral neck fracture secondary to accidental fall - patient will continue to receive daily incisional wound care. He is on aspirin for deep venous thrombosis prophylaxis. We will obtain follow up CBC to rule out postoperative blood loss anemia on top ofunderlying chronic anemia. He will follow up with Orthopedics as an outpatient as indicated. 2. Diabetes mellitus type 2 - maintain current diabetic management. Monitor blood sugars closely. 3. Neurogenic bladder with chronic indwelling catheter with recent ESBL Proteus mirabilis urinary tract infection - continue to monitor urinary symptoms closely. 4. Hypertension - monitor blood pressures closely and make adjustment as needed. He recently did have orthostatic hypotension. We will make adjustment as indicated. 5. Peripheral vascular disease with previous right robwr-dzy-egct amputation - continue to monitor for any signs of ischemia or cyanosis. 6. Bipolar disorder - we will continue to monitor his mood and behavior closely. He has been followed by Psychiatric Services. 7. Functional assessment - he will be receiving rehabilitation services for overall strengthening and conditioning as tolerated. His overall condition and prognosis is quite guarded. We will obtain follow up laboratories including CBC and BMP. He is here for long-term care. DICTATED BY: MD MIGUEL Balderas/Judi JOB# [id number] cc: [facility] documented in this encounterC[facility]Result Comment: Electronically Signed By: Paul BENNETT MD\.br\Date and Time Signed: 05/07/23 07:24 [id number] [facility]:Result Comment: Electronically Signed By: Luisito KELLEY DO\.br\Date and Time Signed: 05/05/23 01:49 [id number] NoteHNO ID: [id number] Author: Rafy Steiner APRN.COMPUTER ASSEMBLER Service: ? Author Type: Nurse Specialist Type: Progress Notes Filed: 05/06/2023 6:59 AM Note Text: [facility] NOTE NAME: LATA PAPPAS NO.: [id number] DATE OF SERVICE: 05/02/2023 [facility] DATE OF : 1960 REASON FOR VISIT: The patient is a resident of [facility]. This is a skilled visit for urinary tract infection with neurogenic bladder and other medical concerns. Upon entering room, found the patient sleeping in bed. The patient does not appear to be in distress or discomfort. The patient is arousable. States has no complaints at this time. No pain, cough, shortness of breath. No fever, chills, or nausea. Eats and drinks well. He states no urinary symptoms. States bowels are moving. Did discuss power wheelchair with the patient. The patient is agreeable with power wheelchair. MEDICATIONS: Medications have been reviewed. PHYSICAL EXAMINATION: Temp 98.0, blood pressure 128/74, pulse 82, respirations 18, pulse ox 99% on room air. Weight 210.6 pounds. Respiratory: Respirations are easy and unlabored with the patient at rest. Lungs sounds are clear. Heart: Heart rate and rhythm regular. Abdomen: Soft, nontender with palpation. Bowel sounds present x4. Genitourinary: Todd catheter is intact, it is draining clear, pale yellow urine. Extremities: Left lower extremity nonedematous. Posterior left foot wound is dry. No erythema identified. Face to face performed for needs for power-assisted wheelchair for the patient to be independent in ADLs and MRADLs as the patient cannot sufficiently use cane or walker due to required absence to the right lower knee. Power wheelchair will aid in the quality of patient's ADLs, as well as social skills. IMPRESSION AND PLAN: 1. Urinary tract infection. The patient was treated in hospital. Finished fosfomycin. No urinary complaints at this time. 2. neurogenic bladder. Continue Todd catheter. 3. Chronic kidney disease with abnormal electrolytes and hyperkalemia. Labs pending today. 4. Coronary artery disease without angina. No coronary concerns were identified. On Lipitor, metoprolol. 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 Heart rate regular, within normal limits. 6. Hypotension. The patient is normotensive at this time. Continue current fluids. 7. Diabetes. The patient has hyperglycemic reading of 374. Currently on Humalog per sliding scale only. We will reinitiate Lantus. We will add Forxiga. DICTATED BY: MURALI Plaza/Judi JOB# [id number] cc: [facility]06-29-2023 History of Present illness Narrative* Rafy Steiner APRN.COMPUTER ASSEMBLER - 05/02/2023 12:00 AM EDT [facility] NOTE NAME: LATA PAPPAS NO.: [id number] DATE OF SERVICE: 05/02/2023 [facility] DATE OF : 1960 REASON FOR VISIT: The patient is a resident of [facility]. This is a skilled visit for urinary tract infection with neurogenic bladder and other medical concerns. Upon entering room, found the patient sleeping in bed. The patient does not appear to be in distress or discomfort. The patient is arousable. States has no complaints at this time. No pain, cough, shortness of breath. No fever, chills, or nausea. Eats and drinks well. He states no urinary symptoms.States bowels are moving. Did discuss power wheelchair with the patient. The patient is agreeable with power wheelchair. MEDICATIONS: Medications have been reviewed. PHYSICAL EXAMINATION: Temp 98.0, blood pressure 128/74, pulse 82, respirations 18, pulse ox 99% on room air. Weight 210.6 pounds. Respiratory: Respirations are easy and unlabored with the patient at rest. Lungs sounds are clear. Heart: Heart rate and rhythm regular. Abdomen: Soft, nontender with palpation. Bowel sounds present x4. Genitourinary: Todd catheter is intact, it is draining clear, pale yellow urine. Extremities: Left lower extremity nonedematous. Posterior left foot wound is dry. Noerythema identified. Face to face performed for needs for power-assisted wheelchair for the patient to be independent inADLs and MRADLs as the patient cannot sufficiently use cane or walker due to required absence to the right lower knee. Power wheelchair will aid in the quality of patient's ADLs, as well as social skills. IMPRESSION AND PLAN: 1. Urinary tract infection. The patient was treated in hospital. Finished fosfomycin. No urinary complaints at this time. 2. neurogenic bladder. Continue Todd catheter. 3. Chronic kidney disease with abnormal electrolytes and hyperkalemia. Labs pending today. 4. Coronary artery disease without angina. No coronary concerns were identified. On Lipitor, metoprolol. 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 Heart rate regular, within normal limits. 6. Hypotension. The patient is normotensive at this time. Continue current fluids. 7. Diabetes. The patient has hyperglycemic reading of 374. Currently on Humalog per sliding scale only. We will reinitiate Lantus. We will add Forxiga. DICTATED BY: MURALI Plaza JOB# [id number] cc:[facility] documented in this encounterCincinnati [facility]06-26-2023 NoteHNO ID: [id number] Author: Lauren Chowdary Service: ? Author Type: Physician Type: Progress Notes Filed: 04/30/2023 6:39 PM Note Text: [facility] CORRECTION NOTE NAME: MIKAYLA PAPPASJOANNACELIA NO.: [id number] DATE OF SERVICE: 04/29/2023 [facility] DATE OF : 1960 Readmission History and Physical HISTORY OF PRESENT ILLNESS: The patient is a 62-year-old male who is admitted back to us from [facility] with a diagnosis of ESBL Proteus mirabilis urinary tract infection, electrolyte imbalance with hyperkalemia, acute hypotension with history of hypertension, acute on chronic kidney injury secondary to volume depletion, anemia of chronic disease, neurogenic bladder requiring chronic indwelling Todd catheter, diabetes mellitus type 2, posttraumatic stress disorder, right bundle-branch block, previous CVA, Mfdqj-Ghcfbhnot-Mwfrz syndrome with previous radioablation therapy, peripheral vascular disease with previous right wsqmq-hlz-umau amputation, history of aggressive behavior and homicidal ideation, previous COVID infection, major depressive disorder, bipolar disorder, obesity, history of diabetic heel ulcer, and generalized weakness. He was initially admitted to the hospital after developing hypotension. Evaluation did reveal findings consistent with an acute catheter associated ESBL Proteus mirabilis urinary tract infection for which he was initially started on appropriate IV antibiotic therapy. His catheter apparently had been changed approximately 1 week prior, but was not in the right position and therefore had to be exchanged with a three-way catheter with improvement in symptoms. Laboratory testing also initially revealed acute kidney injury on top of chronic kidney disease, which improved after appropriate IV hydration and exchange of his Todd catheter. He was also treated for hyperkalemia. There was concern that his infection may actually represent colonization. He was given a dose of fosfomycin in the hospital with a repeat dose to be given this week. His condition stabilized and improved and he is now admitted back to our facility for continued therapy and long-term care. His blood pressure medications were also adjusted with discontinuation of his lisinopril and metformin due to his kidney function and hyperkalemia. REVIEW OF SYSTEMS: The patient is currently resting in bed. He is napping, but is somewhat arousable. He is not verbalizing much. He is unable to provide any details regarding his recent hospitalization. He currently denies any pain or discomfort. Nursing states he has had a quiet night. He has had no obvious change in his vision or hearing. He denies being short of breath. He has no documented history of COPD, asthma, or bronchitis. He has been treated for COVID. He does not smoke. He also has no document history of prior heart attacks, heart surgeries or pacemakers. He does not complain of any chest discomfort. 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 He does have a right bundle-branch block. Also, history of hypertension, though once again he presented with hypotension. No history of bleeding ulcers, hepatitis, or melena. No prior seizures. He has had prior strokes with no obvious significant residual. He is diabetic type 2 with previous left diabetic heel ulcer. He is status post previous right qebcr-zpv-ssfh amputation with underlying peripheral vascular disease. FAMILY HISTORY: Significant for hypertension. SOCIAL/FUNCTIONAL HISTORY: He denies smoking or alcohol abuse. 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 MEDICATIONS: Fosfomycin 3 g 1 dose on April 30, 2023, metoprolol 25 mg daily, aspirin 81 mg daily, atorvastatin 80 mg at h.s., cyanocobalamin 500 mcg daily, docusate b.i.d., duloxetine 30 mg daily, duloxetine 60 mg daily for a total of 90 mg daily, ergocalciferol 50,000 units daily, gabapentin 300 mg daily, lispro insulin with meals, isosorbide mononitrate 30 mg daily, melatonin at h.s., omeprazole 20 mg daily, and sodium chloride nasal spray b.i.d. ALLERGIES: DEPAKOTE AND DILANTIN. EXAMINATION: Afebrile, his vital signs are stable. He is in no distress. He appears chronically ill. HEENT: Extraocular movements intact, sclerae nonicteric. Ears intact. Lungs: Clear. Heart: Regular. Abdomen: Soft, obese, nontender. Bowel sounds present. Extremities: He is status post right ecpns-fsk-zbun amputation. He does have generalized weakness. IMPRESSIONS: 1. Acute ESBL Proteus catheter associated urinary tract infection - the patient will get another course of fosfomycin after receiving initial treatment while in the hospital. Continue to monitor urinary symptoms closely. He is at a risk for recurrent infections due to his chronic indwelling catheter for neurogenic bladder. 2. Acute kidney injury on top of chronic k (more content not included)...[facility] 04-27-2023 Evaluation + Plan noteExtracted from: Title:Discharge Note Author:SABRINA GAMEZ, Paul Marrero te:04/27/23 Discharged to - intermediate unit Discharge Status: Improved Discharge Instructions Given: To patient Discharge disposition: Home Prescriptions reviewed with Patient 39 Minute in discharge time Discharge Diet(s): Low Sodium- 2000 mg (04/27/23 09:53:00) Prescriptions fosfomycin 3 g Oral Pwdr, 3 gm= 1 EA, Oral, Once isosorbide mononitrate 30 mg ER Tab, 30 mg= 1 tab(s), Oral, qAM metoprolol 25 mg ER Tab, 25 mg= 1 tab(s), Oral, Daily Home acetaminophen 325 mg Tab, 650 mg= 2 tab(s), Oral, q4hr, PRN Artificial Tears, 1 drop(s), OPTH, QID aspirin 81 mg Oral EC Tab, 81 mg= 1 tab(s), Oral, Daily atorvastatin 80 mg Tab, 80 mg= 1 tab(s), Oral, Bedtime cyanocobalamin 500 mcg oral tablet, 500 mcg= 1 tab(s), Oral, Daily Cymbalta 30 mg Cap-DR, 1 cap(s), Oral, Daily Cymbalta 60 mg Cap-DR, 1 cap(s), Oral, Daily docusate sodium 100 mg Cap, 100 mg= 1 cap(s), Oral, BID ergocalciferol 50,000 intl units Cap, 8[address]23 International_Unit= 1 cap(s), Oral, Daily gabapentin 300 mg Cap, 300 mg= 1 cap(s), Oral, Once a day (at bedtime) insulin lispro, 0-10 Units, SubCutaneous, QIDACHS Melatonin 5 mg oral tablet, 5 mg= 1 tab(s), Oral, Once a day (at bedtime) omeprazole, 20 mg, Oral, Daily promethazine, 25 mg, Oral, q6hr, PRN remove patch, 1 patch(es), Topical, Daily sodium chloride nasal 0.9% spray, 1 spray(s), Nasal, BID With When Contact Information Jose Pepe Within 1 to 2 weeks [facility] [address] [place] [address]- Business (1) Additional Instructions: Call for followup appointment Call physician if symptoms worsen [facility]TR[facility] RICARDA Within 7 to 10 days [address] [place] [address]- Business (1) Additional Instructions: Call for followup appointment Call physician if symptoms worsen Hyperkalemia Indwelling Urinary Catheter Care, Adult ESBL Infection Extracted from: Title:APSO Note Author:SABRINA GAMEZ, Paul P Date: 62-year-old male with past m edical history of CAD, Lkreo-Nkzzhrffq-Iaysg syndrome, hypertension, hyperlipidemia, history of CVA x2 on aspirin, insulin-dependent diabetes mellitus, right BKA with prosthetic legs, neurogenic bladder status post Todd catheter, depression, anxiety, bipolar disorder, obesity presented from [facility] for hypotension. 1. UTI (urinary tract infection) (N39.0: Urinary tract infection, site not specified) UTI present on admission secondary to indwelling Todd catheter Continue with ceftriaxone No need for CBI right now good urine output Ordered: ceftriaxone + Sodium Chloride 0.9% intravenous solution 50 mL, 1,000 mg = 1 EA, Injection, IV Piggyback, Daily, Routine, Start date 04/26/23 9:00:00 EDT, 100 mL/hr, Infuse over 30 minute(s) Initial Hospital Care/Day High 75 Minutes 32165 2. Hypotension (I95.9: Hypotension, unspecified) Blood pressure has improved significantly Continue to monitor Avoid nephrotoxic agent With patient being sleepy we will get a blood gas Ordered: Initial Hospital Care/Day High 75 Minutes 41365 3. Bbmio-dw-aueuwwq kidney injury (N17.9: Acute kidney failure, unspecified) Kidney function has not improved Patient now having hyperkalemia Hyperkalemia has been treated EKG showing no acute changes We will continue with Lokelma Another liter of normal saline ordered Monitor urine output closely Ordered: Initial Hospital Care/Day High 75 Minutes 89211 4. Chronic kidney disease, unspecified (N18.9: Chronic kidney disease, unspecified) Baseline creatinine around 1.6-1.9 Ordered: Initial Hospital Care/Day High 75 Minutes 47341 5. Anemia of chronic disease (D63.8: Anemia in other chronic diseases classified elsewhere) Monitor No need for transfusion today Ordered: Lactate Dehydrogenase Stool Occult Blood 6. HLD (hyperlipidemia) (E78.5: Hyperlipidemia, unspecified) Atorvastatin 7. Hx of right BKA (Z89.511: Acquired absence of right leg below knee) Fall precaution PT OT evaluation 8. T2DM (type 2 diabetes mellitus) (E11.9: Type 2 diabetes mellitus without complications) Accu-Chek with sliding scale insulin Ordered: insulin lispro, 0-10 Units, Injection-Insulin, SubCutaneous, QIDACHS, Routine, Start date 04/25/23 16:30:00 EDT Diabetic/Calorie Control Diet Routine Capillary Glucose POC 9. CAD (coronary atherosclerotic disease) (I25.10: Atherosclerotic heart disease of [place] coronary artery without angina pectoris) We will resume his antiplatelet medication due to bleeding being controlled 10. Sequential compression device (SCD) in place on patient (Z78.9: Other specified health status) SCDs Orders: acetaminophen, 650 mg = 2 tab(s), Tab, Oral, q6hr PRN Pain, Routine, Start date 04/25/23 14:07:00 EDT, 04/25/23 14:07:00 EDT Al hydroxide/Mg hydroxide/simethicone, 30 mL, Susp-Oral, Oral, q6hr PRN Indigestion, STAT, Start date 04/25/23 14:07:00 EDT aspirin, 81 mg = 1 tab(s), Tab-EC, Oral, Daily, Routine, Start date 04/27/23 9:00:00 EDT, 04/26/23 11:04:00 EDT atorvastatin, 80 mg = 2 tab(s), Tab, Oral, Bedtime, Routine, Start date 04/25/23 21:00:00 EDT, 04/25/23 15:11:00 EDT calcium gluconate + Sodium Chloride 0.9% intravenous solution 50 mL, 1 gram = 50 mL, Soln-IV, IV Piggyback, Once, Stop date 04/26/23 7:37:00 EDT, STAT, Start date 04/26/23 7:37:00 EDT, 100 mL/hr, Infuse over 30 minute(s) docusate, 100 mg = 1 cap(s), Cap, Oral, BID, Routine, Start date 04/25/23 21:00:00 EDT, 04/25/23 15:11:00 EDT duloxetine, 30 mg = 1 cap(s), Cap-DR, Oral, Daily, Routine, Start date 04/26/23 9:00:00 EDT duloxetine, 60 mg = 1 cap(s), Cap-DR, Oral, Daily, Routine, Start date 04/26/23 9:00:00 EDT gabapentin, 300 mg = 1 cap(s), Cap, Oral, Once a day (at bedtime), Routine, Start date 04/25/23 21:00:00 EDT, 04/25/23 15:11:00 EDT glucose, 50 mL, Soln-IV, IV Push, Once, Stop date 04/26/23 8:00:00 EDT, Routine, Start date 04/26/23 8:00:00 EDT hydrALAZINE, 10 mg = 0.5 mL, Injection, IV Push, q6hr PRN Other (see comment), Routine, Start date 04/25/23 14:07:00 EDT, 04/25/23 14:07:00 EDT insulin regular, 5 unit(s) = 0.05 mL, Injection-Insulin, IV Push, Once, Stop date 04/26/23 7:37:00 EDT, STAT, Start date 04/26/23 7:37:00 EDT melatonin, 6 mg = 2 tab(s), Tab, Oral, Once a day (at bedtime), Routine, Start date 04/25/23 21:00:00 EDT ondansetron, 4 mg = 2 mL, Injection, IV Push, q6hr PRN Nausea, Routine, Start date 04/25/23 14:07:00 EDT, 04/25/23 14:07:00 EDT sodium bicarbonate, 50 mEq, 50 mL, Soln-IV, IV Push, Once, Stop date 04/26/23 7:37:00 EDT, STAT, Start date 04/26/23 7:37:00 EDT Sodium Chloride 0.9% intravenous solution, 1,000 mL, Soln-IV, IV, Once, Stop date 04/26/23 8:00:00 EDT, Routine, Start date 04/26/23 8:00:00 EDT, mL/hr, Infuse over 61, minute(s) Sodium Chloride 0.9% intravenous solution 1,000 mL, 1,000 mL, IV, 75 mL/hr, for 1 dose(s), Stop date 04/26/23 3:16:00 EDT, Routine, Start date 04/25/23 13:59:00 EDT, 13.3 hour(s), Total volume (mL): 1,000, 99.4 kg, 2.18, m2 Sodium Chloride 0.9% intravenous solution 1,000 mL, 1,000 mL, IV, 75 mL/hr, for 1 dose(s), Stop date 04/26/23 23:16:00 EDT, Routine, Start date 04/26/23 9:59:00 EDT, 13.3 hour(s), Total volume (mL): 1,000, 99.4 kg, 2.18, m2 sodium chloride nasal, 1 spray(s), [place], Nasal, BID, Routine, Start date 04/25/23 21:00:00 EDT sodium zirconium cyclosilicate, 10 gm, Powder-Recon, Oral, TID for 4 dose(s), Stop date 04/27/23 13:59:00 EDT, Routine, Start date 04/26/23 8:00:00 EDT, 04/26/23 7:37:00 EDT Ambulate with Assistance Automated Diff Basic Metabolic Panel Below the Knee Intermittent Pneumatic Compression Device Blood Gas Art, with Lytes, Gluc, Lact Capillary Glucose POC Capillary Glucose POC Capillary Glucose POC Cardiac Monitoring CBC w/ Auto Diff ECG 12 Lead Adult eGFR Evaluate Need For Continued Telemetry Extra SST Tube Incentive Spirometry Intake and Output Magnesium Level Notify Provider Vital Signs Notify Provider Vital Signs Occupational Therapy Evaluate Patient, Develop a Plan of Care and Implement Plan Physical Therapy Evaluate Patient, Develop a Plan of Care and Implement Plan Place in Status Place in Status Potassium Level Precautions Pulse Oximetry Referral to Resource Center Vital Signs Weight Plan discussed with patient at bedside Convert patient to inpatient stay as anticipate he will require greater than 2 midnight stay for management of above. High level of MDM based on addressing above issues This report was transcribed using voice recognition software. Every effort was made to ensure accuracy, however, inadvertently computerized bilingual spanish inbound sales mistakes may be present. Paul Bennett Hospitalist Extracted from: Title:Admission H & P Author:Paul BENNETT MD ate:04/25/23 62-year-old male with past m edical history of CAD, Yjdye-Ielnwogml-Qbgam syndrome, hypertension, hyperlipidemia, history of CVA x2 on aspirin, insulin-dependent diabetes mellitus, right BKA with prosthetic legs, neurogenic bladder status post Todd catheter, depression, anxiety, bipolar disorder, obesity presented from [facility] for hypotension. 1. UTI (urinary tract infection) (N39.0: Urinary tract infection, site not specified) Catheter associated UTI present on admission Ceftriaxone daily Catheter changed out the three-way catheter in order to do CBI if needed Follow-up culture result Previously sensitive Proteus to ceftriaxone Admit under observation care as I do not anticipate that patient will require greater than 2 midnight stay Ordered: ceftriaxone + Sodium Chloride 0.9% intravenous solution 50 mL, 1,000 mg = 1 EA, Injection, IV Piggyback, Daily, Routine, Start date 04/26/23 9:00:00 EDT, 100 mL/hr, Infuse over 30 minute(s) 2. Hypotension (I95.9: Hypotension, unspecified) Blood pressure has already improved Hold antihypertensive medication IV fluids as ordered Monitor blood pressure and frequent vital signs 3. Vhaso-dd-ktclgyg kidney injury (N17.9: Acute kidney failure, unspecified) Acute kidney injury secondary to Todd catheter not draining Todd catheter has been replaced Monitor kidney function and urine output closely May require CBI 4. Chronic kidney disease, unspecified (N18.9: Chronic kidney disease, unspecified) Avoid nephrotoxic agent 5. Anemia of chronic disease (D63.8: Anemia in other chronic diseases classified elsewhere) Has some component of acute blood loss anemia on top of anemia of chronic disease Hold antiplatelet medication with hematuria Monitor closely Anemia work-up Ordered: Lactate Dehydrogenase Stool Occult Blood 6. HLD (hyperlipidemia) (E78.5: Hyperlipidemia, unspecified) Atorvastatin 7. Hx of right BKA (Z89.511: Acquired absence of right leg below knee) Slightly weaker due to hypotension and acute kidney injury Walks with prosthetic PT OT evaluation 8. T2DM (type 2 diabetes mellitus) (E11.9: Type 2 diabetes mellitus without complications) Sliding scale insulin Accu-Chek ADA diet Hold metformin Ordered: insulin lispro, 0-10 Units, Injection-Insulin, SubCutaneous, QIDACHS, Routine, Start date 04/25/23 16:30:00 EDT Diabetic/Calorie Control Diet Routine Capillary Glucose POC 9. CAD (coronary atherosclerotic disease) (I25.10: Atherosclerotic heart disease of [place] coronary artery without angina pectoris) Atorvastatin Holding blood pressure medication or antiplatelet medication due to significant hematuria 10. Sequential compression device (SCD) in place on patient (Z78.9: Other specified health status) SCDs Orders: acetaminophen, 650 mg = 2 tab(s), Tab, Oral, q6hr PRN Pain, Routine, Start date 04/25/23 14:07:00 EDT, 04/25/23 14:07:00 EDT Al hydroxide/Mg hydroxide/simethicone, 30 mL, Susp-Oral, Oral, q6hr PRN Indigestion, STAT, Start date 04/25/23 14:07:00 EDT atorvastatin, 80 mg = 2 tab(s), Tab, Oral, Bedtime, Routine, Start date 04/25/23 21:00:00 EDT, 04/25/23 15:11:00 EDT docusate, 100 mg = 1 cap(s), Cap, Oral, BID, Routine, Start date 04/25/23 21:00:00 EDT, 04/25/23 15:11:00 EDT duloxetine, 30 mg = 1 cap(s), Cap-DR, Oral, Daily, Routine, Start date 04/26/23 9:00:00 EDT, 04/25/23 15:11:00 EDT duloxetine, = 1 cap(s), Cap-EC, Oral, Daily, Routine, Start date 04/26/23 9:00:00 EDT, 04/25/23 15:11:00 EDT gabapentin, 300 mg = 1 cap(s), Cap, Oral, Once a day (at bedtime), Routine, Start date 04/25/23 21:00:00 EDT, 04/25/23 15:11:00 EDT hydrALAZINE, 10 mg = 0.5 mL, Injection, IV Push, q6hr PRN Other (see comment), Routine, Start date 04/25/23 14:07:00 EDT, 04/25/23 14:07:00 EDT melatonin, 5 mg, Tab, Oral, Once a day (at bedtime), Routine, Start date 04/25/23 21:00:00 EDT, 04/25/23 15:11:00 EDT ondansetron, 4 mg = 2 mL, Injection, IV Push, q6hr PRN Nausea, Routine, Start date 04/25/23 14:07:00 EDT, 04/25/23 14:07:00 EDT Sodium Chloride 0.9% intravenous solution 1,000 mL, 1,000 mL, IV, 75 mL/hr, for 1 dose(s), Stop date 04/26/23 3:16:00 EDT, Routine, Start date 04/25/23 13:59:00 EDT, 13.3 hour(s), Total volume (mL): 1,000, 99.4 kg, 2.18, m2 sodium chloride nasal, 1 spray(s), [place], Nasal, BID, Routine, Start date 04/25/23 21:00:00 EDT Ambulate with Assistance Basic Metabolic Panel Below the Knee Intermittent Pneumatic Compression Device Cardiac Monitoring CBC w/ Auto Diff Evaluate Need For Continued Telemetry Incentive Spirometry Intake and Output Magnesium Level Notify Provider Vital Signs Notify Provider Vital Signs Occupational Therapy Evaluate Patient, Develop a Plan of Care and Implement Plan Oxygen Protocol Physical Therapy Evaluate Patient, Develop a Plan of Care and Implement Plan Place in Status Precautions Pulse Oximetry Vital Signs Weight Plan discussed with patient at bedside ed 13 High Level of MDM based on addressing above issues This report was transcribed using voice recognition software. Every effort was made to ensure accuracy, however, inadvertently computerized bilingual spanish inbound sales mistakes may be present. Paul Bennett Hospitalist Extracted from: Title:ED Note Author:Carter Osborn PA-C te:04/25/23 1. UTI (urinary tract infect ion) (N39.0: Urinary tract infection, site not specified) 2. Hypotension (I95.9: Hypotension, unspecified) 3. Bbkhn-xu-jzmbwpi kidney injury (N17.9: Acute kidney failure, unspecified) 4. Chronic kidney disease, unspecified (N18.9: Chronic kidney disease, unspecified) 5. Anemia of chronic disease (D63.8: Anemia in other chronic diseases classified elsewhere) Orders: ceftriaxone + Sodium Chloride 0.9% intravenous solution 50 mL, 1,000 mg = 1 EA, IV Piggyback, Once, Stop date 04/25/23 13:39:00 EDT, STAT, Start date 04/25/23 13:39:00 EDT, 100 mL/hr, Infuse over 30 minute(s), 04/25/23 13:39:00 EDT HYDROmorphone, 0.5 mg = 0.5 mL, Injection, IV Push, Once, Stop date 04/25/23 14:27:00 EDT, STAT, Start date 04/25/23 14:27:00 EDT, 04/25/23 14:27:00 EDT ondansetron, 4 mg = 2 mL, Injection, IV Push, Once, Stop date 04/25/23 14:27:00 EDT, STAT, Start date 04/25/23 14:27:00 EDT, 04/25/23 14:27:00 EDT Sodium Chloride 0.9% intravenous solution 1,000 mL, 1,000 mL, IV, 20 mL/hr, STAT, Start date 04/25/23 11:54:00 EDT, 50 hour(s), Total volume (mL): 1,000, 103.8 kg, 2.23, m2 Automated Diff Basic Metabolic Panel Blood Culture Charcoal Blood Culture Charcoal CBC w/ Auto Diff CT Abdomen/Pelvis w/o Contrast ED Physician consult Hospitalist for continued care eGFR Ferritin Folate Level Iron Level Lactic Acid Reticulocyte Count TIBC Calculated Troponin 0 Hr. Troponin 3 Hr. Troponin 6 Hr. Troponin 9 Hr. TSH With T4fr Reflex UA With Cult Reflex Urine Culture Vitamin B12 Level XR Chest Single View Diagnostic Tests Pending * Stool Occult Blood 04/25/[address] [facility]06-24-2023 Hospital Discharge instructions Patient Education 04/27/2023 09:54:07 Hyperkalemia Hyperkalemia Hyperkalemia occurs when the level of potassium in the blood is too high. Potassium is an importantmineral (electrolyte) that helps the muscles and nerves function normally. It affects how the heartworks, and it helps keep fluids and minerals balanced in the body. If there is too much potassium in your blood, it can affect your heart's ability to function normally. Potassium is normally removed (excreted) from the body by the kidneys. Hyperkalemia can result fromvarious conditions. It can range from mild to severe. What are the causes? This condition may be caused by: Taking in too much potassium. This can happen if: ?You use salt substitutes. They contain large amounts of potassium. ?You take potassium supplements. ?You eat too many foods that are high in potassium if you have kidney disease. Excreting too little potassium. This can happen if: ?Your kidneys are not working properly. Kidney (renal) disease, including short- term or long-term renal failure, is a common cause of hyperkalemia. ?You are taking medicines that lower your excretion of potassium, such as SPENCER inhibitors, angiotensin II receptor blockers (ARBs), or potassium-sparing diuretics, such as spironolactone. ?You have [place]'s disease. ?You have a urinary tract blockage, such as kidney stones. ?You are on treatment to mechanically clean your blood (dialysis) and you skip a treatment. Your cells releasing a high amount of potassium into the blood. This can happen with: ?Injury to muscles (rhabdomyolysis) or other tissues. Most potassium is stored in your muscles. ?Severe lewis, injuries, or infections. ?Acidic blood plasma (acidosis). Acidosis can result from many diseases, such as uncontrolled diabetes. What increases the risk? You are more likely to develop this condition if you have alcoholism or if you use drugs heavily. What are the signs or symptoms? In many cases, there are no symptoms. However, when your potassium level becomes high enough, you may have symptoms such as: An irregular or very slow heartbeat. Nausea. Tiredness (fatigue). Confusion. Tingling of your skin or numbness of your hands or feet. Muscle cramps. Muscle weakness. Not being able to move (paralysis). How is this diagnosed? This condition may be diagnosed based on: Your symptoms and medical history. Your health care provider will ask about your use of xdwh-hes-sdbsybp and prescription medicines. A physical exam. Blood tests. An electrocardiogram (ECG). How is this treated? Treatment depends on the cause and severity of your condition. Treatment may need to be done in thehospital setting. Treatment may include: Receiving a sugar solution (glucose) through an IV along with insulin to shift potassium out of your blood and into your cells. Taking a medicine called albuterol to shift potassium out of your blood and into your cells. Taking medicines to remove the potassium from your body. Having dialysis to remove the potassium from your body. Taking calcium to protect your heart from the effects of high potassium, such as irregular rhythms (arrhythmias). Follow these instructions at home: Take yubw-see-zytjopz and prescription medicines only as told by your health care provider. Do not take any supplements, natural food products, herbs, or vitamins without reviewing them with your health care provider. Certain supplements and natural food products contain high amounts of potassium. If you drink alcohol, limit how much you have as told by your health care provider. Do not use illegal drugs. If you need help quitting, ask your health care provider. If you have kidney disease, you may need to follow a low-potassium diet. A dietitian can help you learn which foods have high or low amounts of potassium. Keep all follow-up visits. This is important. Contact a health care provider if: You have an irregular or very slow heartbeat. You feel light-headed. You feel weak. You are nauseous. You have tingling or numbness in your hands or feet. Get help right away if: You have shortness of breath. You have chest pain or discomfort. You faint. You have muscle paralysis. These symptoms may be an emergency. Get help right away. Call 911. Do not wait to see if the symptoms will go away. Do not drive yourself to the hospital. Summary Hyperkalemia occurs when the level of potassium in your blood is too high. This condition may be caused by taking in too much potassium, excreting too little potassium, or releasing a high amount of potassium from your cells into your blood. Hyperkalemia can result from many underlying conditions, especially chronic kidney disease, or fromtaking certain medicines. Treatment of hyperkalemia may include medicine to shift potassium out of your blood and into your cells or to remove the potassium from your body. If you have kidney disease, you may need to follow a low-potassium diet. A dietitian can help you learn which foods have high or low amounts of potassium. This information is not intended to replace advice given to you by your health care provider. Make sure you discuss any questions you have with your health care provider. Document Revised: 07/05/2022 Document Reviewed: 07/05/2022 [employer] Patient Education 2022 [employer]. 04/27/2023 09:54:07 Indwelling Urinary Catheter Care, Adult Indwelling Urinary Catheter Care, Adult An indwelling urinary catheter is a thin, flexible tube that is placed into the bladder to help drain urine out of the body. The catheter is inserted into the urethra. The urethra is the part of the body that drains urine from the bladder. Urine drains from the catheter into a drainage bag outside of the body. Taking good care of your catheter will keep it working properly and help to prevent problems from developing. What are the risks? Bacteria may get into your bladder and cause a urinary tract infection. Urine flow can become blocked. This can happen if the catheter is not working correctly, or if you have sediment or a blood clot in your bladder or catheter. Tissue near the catheter may become irritated and may bleed. How to wear your catheter and your drainage bag Supplies needed Adhesive tape or a leg strap. Alcohol wipe or soap and water (if you use tape). A clean towel (if you use tape). Overnight drainage bag. Smaller drainage bag (leg bag). Wearing your catheter and bag Use adhesive tape or a leg strap to attach your catheter to your leg. Make sure the catheter is not pulled tight. If a leg strap gets wet, replace it with a dry one. If you use adhesive tape: 1.Use an alcohol wipe or soap and water to wash off any stickiness on your skin where you had tape before. 2.Use a clean towel to pat-dry the area. 3.Apply the new tape. You should have received a large overnight drainage bag and a smaller leg bag that fits underneath clothing. You may wear the overnight bag at any time, but you should not wear the leg bag at night. Make sure the overnight drainage bag is always lower than the level of your bladder, but do not letit touch the floor. Before you go to sleep, hang the bag inside a wastebasket that is covered by a clean plastic bag. Secure the leg bag according to diesel automotive technician's instructions. This may be above or below the knee, depending on the length of the tubing. Make sure that: ?The leg bag is below the bladder. ?The tubing does not have loops or too much tension. How to care for the skin around the catheter Supplies needed A clean washcloth. Water and mild soap. A clean towel. Caring for your skin and catheter Every day, use a clean washcloth and soapy water to clean the skin around your catheter. 1.Wash your hands with soap and water. 2.Wet a washcloth in warm water and mild soap. 3.Clean the skin around your urethra. ?If you are female: ?Use one hand to gently spread the folds of skin around your vagina (labia). ?With the washcloth in your other hand, wipe the inner side of your labia on each side. Do this in a yqznb-ko-onnn direction. ?If you are male: ?Use one hand to pull back any skin that covers the end of your penis (foreskin). ?With the washcloth in your other hand, wipe your penis in small circles. Start wiping at the tip of your penis, then move outward from the catheter. ?Move the foreskin back in place, if needed. 4.With your free hand, hold the catheter close to where it enters your body. Keep holding the catheter during cleaning so it does not get pulled out. 5.Use your other hand to clean the catheter with the washcloth. ?Only wipe downward on the catheter, toward the bag. ?Do not wipe upward toward your body, because that may push bacteria into your urethra and cause infection. 6.Use a clean towel to pat-dry the catheter and the skin around it. Make sure to wipe off all soap. 7.Wash your hands with soap and water. Shower every day. Do not take baths. Do not use cream, ointment, or lotion on the area where the catheter enters your body, unless your health care provider tells you to do that. Do not use powders, sprays, or lotions on your genital area. Check your skin around the catheter every day for signs of infection. Check for: ?Redness, swelling, or pain. ?Fluid or blood. ?Warmth. ?Pus or a bad smell. How to empty the drainage bag Supplies needed Rubbing alcohol. Gauze pad or cotton ball. Adhesive tape or a leg strap. Emptying the bag Empty your drainage bag (your overnight drainage bag or your leg bag) when it is ? full, or at least 2 3 times a day. Clean the drainage bag according to the diesel automotive technician's instructions or as told byyour health care provider. 1.Wash your hands with soap and water. 2.Detach the drainage bag from your leg. 3.Hold the drainage bag over the toilet or a clean container. Make sure the drainage bag is lower than your hips and bladder. This stops urine from going back into the tubing and into your bladder. 4.Open the pour spout at the bottom of the bag. 5.Empty the urine into the toilet or container. Do not let the pour spout touch any surface. This precaution is important to prevent bacteria from getting in the bag and causing infection. 6.Apply rubbing alcohol to a gauze pad or cotton ball. 7.Use the gauze pad or cotton ball to clean the pour spout. 8.Close the pour spout. 9.Attach the bag to your leg with adhesive tape or a leg strap. 10.Wash your hands with soap and water. How to change the drainage bag Supplies needed: Alcohol wipes. A clean drainage bag. Adhesive tape or a leg strap. Changing the bag Replace your drainage bag with a clean bag if it leaks, starts to smell bad, or looks dirty. 1.Wash your hands with soap and water. 2.Detach the dirty drainage bag from your leg. 3.Pinch the catheter with your fingers so that urine does not spill out. 4.Disconnect the catheter tube from the drainage tube at the connection valve. Do not let the tubestouch any surface. 5.Clean the end of the catheter tube with an alcohol wipe. Use a different alcohol wipe to clean the end of the drainage tube. 6.Connect the catheter tube to the drainage tube of the clean bag. 7.Attach the clean bag to your leg with adhesive tape or a leg strap. Avoid attaching the new bag too tightly. 8.Wash your hands with soap and water. General instructions Never pull on your catheter or try to remove it. Pulling can damage your internal tissues. Always wash your hands before and after you handle your catheter or drainage bag. Use a mild, fragrance-free soap. If soap and water are not available, use hand quality lab technician. Always make sure there are no twists, bends, or kinks in the catheter tube. Always make sure there are no leaks in the catheter or drainage bag. Drink enough fluid to keep your urine pale yellow. Do not take baths, swim, or use a hot tub. If you are female, wipe from front to back after having a bowel movement. Contact a health care provider if: Your catheter gets clogged. Your catheter starts to leak. You have signs of infection at the catheter site, such as: ?Redness, swelling, or pain where the catheter enters your body. ?Fluid, blood, pus, or a bad smell coming from the area where the catheter enters your body. ?The area where the catheter enters your body feels warm to the touch. You have signs of a urinary tract infection, such as: ?Fever or chills. ?Urine smells unusually bad. ?Cloudy urine. ?Pain in your abdomen, legs, lower back, or bladder. ?Nausea or vomiting. Get help right away if: You see blood in the catheter. Your urine is pink or red. Your bladder feels full. Your urine is not draining into the bag. Your catheter gets pulled out. Summary An indwelling urinary catheter is a thin, flexible tube that is placed into the bladder to help drain urine out of the body. The catheter is inserted into the part of the body that drains urine from the bladder (urethra). Take good care of your catheter to keep it working properly and help prevent problems from developing. Always wash your hands before and after you handle your catheter or drainage bag. Never pull on your catheter or try to remove it. This information is not intended to replace advice given to you by your health care provider. Make sure you discuss any questions you have with your health care provider. Document Revised: 06/21/2022 Document Reviewed: 06/21/2022 [employer] Patient Education 2022 [employer]. 04/27/2023 09:54:07 ESBL Infection ESBL Infection ESBL (extended-spectrum beta-lactamase) is an enzyme that is made by some types of bacteria. This enzyme breaks down some antibiotic medicines, making them unable to kill the bacteria or treat the infection. The two most common types of bacteria that make ESBL in the stomach and intestines (gastrointestinal tract, or GI tract) are E. coli and Klebsiella pneumoniae. These types of bacteria help break down food so it can be used by the body for energy. Normally, they do not cause infection unlessthere are too many bacteria, or unless the bacteria travel to other parts of the body where they are not normally found. ESBL infections are hard to treat. Bacteria that make ESBL are sometimes called super bugs because they are very hard to get rid of. Lab tests must be done to find the type of ESBL bacteria that iscausing the infection and the right antibiotic medicine that will treat it. What are the causes? This condition is caused by certain types of bacteria that make ESBL enzymes as a way to survive the effects of antibiotics. This type of infection is most commonly caused by E. coli and Klebsiella pneumoniae bacteria, which make the ESBL enzymes. ESBL bacteria can live outside the body, on the skin, or on other surfaces. People who are infectedwith ESBL bacteria may shed the bacteria in their stool (feces) or in body fluids such as urine or blood. These bacteria can be spread to surfaces, such as bedding, medical equipment, countertops, and bathroom fixtures. The bacteria can also be spread by direct contact with hands or body fluids that have the bacteria on or in them (are contaminated). What increases the risk? You may be more likely to develop this condition if: You are now or have recently been admitted to a hospital, assisted, or other health care facility. You have another illness or a weakened disease-fighting system (immune system). You have drains or tubes placed in your body. You have used antibiotics before. You have sores or open wounds. You have traveled to a place where ESBL germs are more commonly found. What are the signs or symptoms? Conditions that can be caused by ESBL-producing bacteria include diarrhea, skin infections, pneumonia, and urinary tract infections (UTIs). Symptoms depend on the location and type of infection and may include: Fever. Chills. Needing to urinate often or feeling burning with urination. Reddened, warm skin around the site of infection. Diarrhea, extra gas, or bloating. Nausea, vomiting, or loss of appetite. Not knowing the time of day, where you are, or who you are (feeling disoriented). How is this diagnosed? This condition is diagnosed with a physical exam and lab testing. You may have a blood, urine, or stool sample taken. Samples can be looked at under a microscope by trained health care providers who can determine the type of bacteria growing in the samples. These samples can also be tested to see if certain antibiotic medicines can kill the bacteria. How is this treated? ESBL infections can be treated after the right antibiotic medicine is found that can kill the bacteria. Antibiotic medicines may be given at home or in the hospital. Some of these medicines can be taken by mouth, and others must be given through an IV. Follow these instructions at home: Take your antibiotic medicine as told by your health care provider. Do not stop taking the antibiotic even if you start to feel better. This is important. Rest. Practice ways to keep clean (good hygiene). Prevent spread. Keep all follow-up visits. This is important. How is this prevented? Preventing ESBL infections in hospitals To prevent the spread of ESBL infections, health care providers will: Wash their hands with soap and water for at least 20 seconds, or clean their hands with an alcohol-based hand quality lab technician, before they enter or leave your room. Clean and disinfect your room and the medical equipment that is being used for your care. Put a sign on your door to let visitors and health care providers know to use safety measures (contact precautions) when they care for you. This means health care providers will: ?Put you in a private room. ?Put on a gown with long sleeves and wear gloves when they care for you, and then remove the glovesand gown before leaving your room. ?Ask your visitors to wear a gown and gloves, if the visitors will help care for you. ?Ask your visitors to wash or sanitize their hands before they enter or leave your room. ?Ask you not to leave your room to visit other parts of the hospital. Preventing ESBL infections at home You can help to prevent the spread of ESBL bacteria by: Reminding health care providers, cleaning staff, and visitors to wash their hands with soap and water for at least 20 seconds, or clean their hands with an alcohol-based hand quality lab technician, before they enter or leave your room. Taking antibiotics exactly as told by your health care provider. Washing your hands with soap and water for at least 20 seconds, or cleaning your hands with an alcohol-based hand quality lab technician, after you do any of these things: ?Use the bathroom. ?Touch or come in contact with your stool or body fluids. ?Touch medical equipment or surfaces that may have come in contact with your stool or body fluids. ?Touch or care for wounds or open sores. ?Touch or care for tubes or drains that are placed in your body. Preventing the spread of ESBL infections to visitors Visitors are at risk for infection if they come in contact with unclean surfaces or equipment, or with your stool or body fluids, while they are in your room. The risk of infection is higher if visitors then touch openings in their own bodies, such as their eyes, nose, mouth, or a sore. Doing that can let the bacteria enter their bodies. Casual contact, such as hugging or touching, will not spread ESBL. Summary ESBL is an enzyme that is made by some types of bacteria. ESBL infections are hard to treat. Bacteria that make ESBL are sometimes called super bugs because they are very hard to get rid of. Lab tests must be done to find the type of ESBL bacteria that is causing the infection and the right antibiotic medicine that will treat it. You can help stop the spread of ESBL infection by washing your hands often with soap and water for at least 20 seconds or cleaning your hands with an alcohol- based hand quality lab technician, especially after using the bathroom. This information is not intended to replace advice given to you by your health care provider. Make sure you discuss any questions you have with your health care provider. Document Revised: 03/04/2021 Document Reviewed: 03/04/2021 [employer] Patient Education 2022 [employer] Follow Up Care 04/25/2023 11:46:17 With:Jose Cantu Address: [address] [address]- Business (1) When:1 to 2 weeks Comments:Call for followup appointmentCall physician if symptoms worsen With:LAUREN CHOWDARY Address: [address] [place] [address] [place] [address]- Business (1) When:7 to 10 days Comments:Call for followup appointmentCall physician if symptoms worsen [facility]06-22-2023 NoteWilson HealthComment on above:Result Comment: Electronically Signed By: Paul BENNETT MD\.mirela\Date and Time Signed: 04/25/23 15:21 [id number] NoteHNO ID: [id number] Author: Rafy Steiner APRN.COMPUTER ASSEMBLER Service: ? Author Type: Nurse Specialist Type: Progress Notes Filed: 04/29/2023 10:09 AM Note Text: [facility] CORRECTION NOTE NAME: LATA PAPPAS NO.: [id number] DATE OF SERVICE: 04/25/2023 [facility]. DATE OF : 1960 REASON FOR VISIT: The patient is a resident of [facility]. This is a visit for chronic kidney disease and anemia and other medical concerns. The patient had lab work performed 2 days ago, continue monitoring renal functions and falling hemoglobin. The patient did have a urinalysis performed. Culture and sensitivity is not yet resulted. Found patient in the hallway, the patient appears to be uncomfortable and is wincing in pain. The patient states he had catheter changed 2 days ago. States has been having burning around the penis and spasming from the bladder ever since. During the course of the evaluation the patient is notably screaming out in pain occasionally. The patient states he has no fever or chills. States has been drinking fluids. The patient states no bleeding episodes, states bowels are moving. Denies black, tarry stools or bloody stools. The patient states appetite has been fair. No fever, chills, or nausea. MEDICATIONS: Have been reviewed. PHYSICAL EXAMINATION: Temp 98.0, blood pressure 128/74, pulse 82, respirations 18, pulse ox 99% on room air, weight 210.6 pounds. Respiratory: Respirations are easy and unlabored with patient at rest. Lung sounds are clear. Heart: Heart rate and rhythm regular. Abdomen: Soft, no tenderness stated with palpation. Bowel sounds present x4. No bladder distention noted with palpation. Genitourinary: Todd catheter is intact and does appear freely floating within the bladder. There is no discharge from the tip of the penis. No blood from the penis. No penile swelling is identified. IMPRESSION AND PLAN: 1. Obstructive uropathy. Staff has been asked to change catheter, which has been changed 2 days ago. Due to patient having increased pain and spasming after bladder replacement, the patient was given Flexeril x1 now and Tylenol order has been placed and patient was given [place] x1 now for complaints of pain. The patient will continue with Tylenol. The patient will continue with Flexeril as needed and Tylenol as needed and again the patient awaiting urine culture and sensitivity. 2. Diabetes, metformin has been discontinued for GFR of 26, increase Lantus 20 units daily. 3. Iron deficiency anemia, ferrous sulfate daily. 4. Chronic kidney disease. We will follow with nephrology services consulted due to worsening renal functions. Labs reviewed, April 23, 2023, basic metabolic panel abnormals BUN 62, creatinine 2.53, glucose 250, sodium 131, potassium 5.2. All other labs within normal range. CBC abnormals, white blood cell count 10.10, RBC 2.55, hemoglobin 7.9, hematocrit 25.0, MCV 98.0, MCHC 31.6. All other labs within normal range. Iron study abnormals, iron 49, iron binding capacity 224. All other labs within normal range. Folate and vitamin B12 normal. DICTATED BY: MURALI Plaza/Judi JOB# [id number] cc:DR [facility]06-22-2023 History of Present illness Narrative* Rafy Steiner APRN.COMPUTER ASSEMBLER - 04/25/2023 12:00 AM EDT [facility] NOTE NAME: LATA PAPPAS NO.: [id number] DATE OF SERVICE: 04/25/2023 [facility]. DATE OF : 1960 REASON FOR VISIT: The patient is a resident of [facility] [place]. This is a visit for chronic kidney disease and anemia and other medical concerns. The patient had lab work performed 2 days ago, continue monitoring renal functions and falling hemoglobin. The patient did have aurinalysis performed. Culture and sensitivity is not yet resulted. Found patient in the hallway, the patient appears to be uncomfortable and is wincing in pain. The patient states he had catheter changed 2 days ago. States has been having burning around the penis and spasming from the bladder ever since. During the course of the evaluation the patient is notably screaming out in pain occasionally. The patient states he has no fever or chills. States has been drinking fluids. The patient states no bleeding episodes, states bowels are moving. Denies black, tarry stools or bloody stools. The patient states appetite has been fair. No fever, chills, or nausea. MEDICATIONS: Have been reviewed. PHYSICAL EXAMINATION: Temp 98.0, blood pressure 128/74, pulse 82, respirations 18, pulse ox 99% on room air, weight 210.6 pounds. Respiratory: Respirations are easy and unlabored with patient at rest. Lung sounds are clear. Heart: Heart rate and rhythm regular. Abdomen: Soft, no tenderness stated with palpation. Bowel sounds present x4. No bladder distention noted with palpation. Genitourinary: Todd catheter is intact and does appear freely floating within the bladder. There is no discharge from the tip of the penis. No blood from the penis. No penile swelling is identified. IMPRESSION AND PLAN: 1. Obstructive uropathy. Staff has been asked to change catheter, which has been changed 2 days ago. Due to patient having increased pain and spasming after bladder replacement, the patient was givenFlexeril x1 now and Tylenol order has been placed and patient was given [place] x1 now for complaintsof pain. The patient will continue with Tylenol. The patient will continue with Flexeril as needed and Tylenol as needed and again the patient awaiting urine culture and sensitivity. 2. Diabetes, metformin has been discontinued for GFR of 26, increase Lantus 20 units daily. 3. Iron deficiency anemia, ferrous sulfate daily. 4. Chronic kidney disease. We will follow with nephrology services consulted due to worsening renal functions. Labs reviewed, April 23, 2023, basic metabolic panel abnormals BUN 62, creatinine 2.53, glucose 250,sodium 131, potassium 5.2. All other labs within normal range. CBC abnormals, white blood cell count 10.10, RBC 2.55, hemoglobin 7.9, hematocrit 25.0, MCV 98.0, MCHC 31.6. All other labs within normal range. Iron study abnormals, iron 49, iron binding capacity 224. All other labs within normal range. Folate and vitamin B12 normal. DICTATED BY: MURALI Plaza/Judi JOB# [id number] cc: [facility] NoteHNO ID: [id number] Author: Rafy Steiner APRN.COMPUTER ASSEMBLER Service: ? Author Type: Nurse Specialist Type: Progress Notes Filed: 04/18/2023 7:09 AM Note Text: [facility] CORRECTION NOTE NAME: LATA PAPPAS NO.: [id number] DATE OF SERVICE: 04/16/2023 [facility] DATE OF : 1960 REASON FOR VISIT: The patient is resident of [facility]. This is a followup visit for diabetes and other medical concerns. Upon entering room, found the patient sleeping in low-Smalls's position. The patient does not appear to be in distress or discomfort, is easily aroused. Prior to the patient's assessment, staff reports he patient has normal blood sugars in the morning that seemed to escalate throughout the day. The patient does voice concerns of this stating he does not understand why his blood sugars continue to elevate. The patient is noted to have sugary sweet drinks sitting in front of patient. The patient states he does not know they are sugary drinks, and only eats and drinks what he is being given. The patient states no pain. No shortness of breath. Does have slight occasional nonproductive cough. No fever, chills. States his appetite has been fair, but bowels have been moving. The patient states has been drinking fluid. The patient does have a Todd catheter. Denies urinary symptoms. MEDICATIONS: Medications have been reviewed. PHYSICAL EXAMINATION: Temp 97.8, blood pressure 122/78, pulse 80, respirations 18, pulse ox 99% on room air. Weight 210.6 pounds. Respiratory: Respirations are easy and unlabored with the patient at rest. Lung sounds are clear. Heart: Heart rate and rhythm regular. Abdomen: Soft. No tenderness stated with palpation. Bowel sounds present x4. Genitourinary: Todd catheter is intact, it is draining clear dilute yellow urine. Extremities: Left lower extremity nonedematous posterior foot. Wound to the posterior foot is dry. No erythema is identified. IMPRESSION AND PLAN: 1. Diabetes. Increasing Lantus, encouraged diabetic diet. The patient is also on metformin and NovoLog routine. 2. Ulcer, left foot. Continue wound care. 3. Gastroesophageal reflux disease. Is currently on Prilosec. 4. Hypertension. The patient has good blood pressure control. Continue antihypertensives. 5. Depression with bipolar disorder. The patient is following with Psychiatric services. Is on Cymbalta. 6. Obstructive uropathy. Continue Todd catheter. DICTATED BY: MURALI Plaza/Judi JOB# [id number] cc: [facility]06-13-2023 History of Present illness Narrative* Rafy Steiner APRN.COMPUTER ASSEMBLER - 04/16/2023 12:00 AM EDT [facility] NOTE NAME: LATA PAPPAS NO.: [id number] DATE OF SERVICE: 04/16/2023 [facility] DATE OF : 1960 REASON FOR VISIT: The patient is resident of [facility]. This is a followup visit for diabetes and other medical concerns. Upon entering room, found the patient sleeping in low-Smalls's position. The patient does not appear to be in distress or discomfort, is easily aroused. Prior to the patient's assessment, staff reports he patient has normal blood sugars in the morning that seemed to escalate throughout the day. The patient does voice concerns of this stating he does not understand why his blood sugars continue to elevate. The patient is noted to have sugary sweet drinks sitting in front of patient. The patient states he does not know they are sugary drinks, and only eats and drinks what he is being given. The patient states no pain. No shortness of breath. Doeshave slight occasional nonproductive cough. No fever, chills. States his appetite has been fair, but bowels have been moving. The patient states has been drinking fluid. The patient does have a Foleycatheter. Denies urinary symptoms. MEDICATIONS: Medications have been reviewed. PHYSICAL EXAMINATION: Temp 97.8, blood pressure 122/78, pulse 80, respirations 18, pulse ox 99% on room air. Weight 210.6 pounds. Respiratory: Respirations are easy and unlabored with the patient at rest. Lung sounds are clear. Heart: Heart rate and rhythm regular. Abdomen: Soft. No tenderness stated with palpation. Bowel sounds present x4. Genitourinary: Todd catheter is intact, it is draining clear dilute yellow urine. Extremities: Left lower extremity nonedematous posterior foot. Wound to the posterior foot is dry. No erythema is identified. IMPRESSION AND PLAN: 1. Diabetes. Increasing Lantus, encouraged diabetic diet. The patient is also on metformin and NovoLog routine. 2. Ulcer, left foot. Continue wound care. 3. Gastroesophageal reflux disease. Is currently on Prilosec. 4. Hypertension. The patient has goodblood pressure control. Continue antihypertensives. 5. Depression with bipolar disorder. The patient is following with Psychiatric services. Is on Cymbalta. 6. Obstructive uropathy. Continue Todd catheter. DICTATED BY: MURALI Plaza/Judi JOB# [id number] cc:DR [facility] documented in this encounterC[facility]06-[facility]23 NoteHNO ID: [id number] Author: Rafy Steiner APRN.COMPUTER ASSEMBLER Service: ? Author Type: Nurse Specialist Type: Progress Notes Filed: 04/15/2023 7:49 AM Note Text: [facility] NOTE NAME: LATA PAPPAS NO.: [id number] DATE OF SERVICE: 04/11/2023 [facility] DATE OF : 1960 REASON FOR VISIT: The patient is a resident of [facility]. This is a monthly visit for multiple medical issues. Upon entering the room, found patient sleeping in low Smalls's position. The patient does not appear to be in distress or discomfort. The patient is arousable. The patient does acknowledge my presence but appears to be disinterested in assessment process. States has no pain, no cough, but does not again participate in the assessment process and does not answer many questions. Staff reports patient has been up and active, but is sporadic with his activities. Staff reports scab fell off to the left foot and an open wound has developed. MEDICATIONS: Have been reviewed. PHYSICAL EXAMINATION: Temp 97.8, blood pressure 122/78, pulse 80, respirations 18, pulse ox 99% on room air and weight 210.6 pounds. Respirations are easy and unlabored with patient at rest. Lung sounds are clear. Heart rate and rhythm regular. Abdomen is soft, nontender with palpation. Bowel sounds present x4. Extremities: Left lower extremity nonedematous. At the posterior aspect of the foot to the distal portion of the foot, there is noted to be an open area, slightly depressed. Wound bed is red. No erythema. No purulent drainage. No purulent odor and no foul odors are identified. IMPRESSION: 1. Gastroesophageal reflux disease. Staff reports no further episodes of vomiting. The patient is currently on Prilosec. 2. Diabetes. The patient has a glycemic reading of 172, on metformin, Lantus, and NovoLog per sliding scale. 3. Pressure ulcer, left foot. Staff is performing wound care. Monitor closely for worsening condition, signs of infection. 4. Hypertension. The patient has good blood pressure control. Continue antihypertensives. 5. Depression with bipolar disorder. The patient does have occasional behavioral issues and outbursts. Does take Cymbalta. 6. Obstructive uropathy. Continue Todd catheter. DICTATED BY: MURALI Plaza JOB# [id number] cc: [facility]05-25-2023 NoteHNO ID: [id number] Author: Rafy Steiner APRN.COMPUTER ASSEMBLER Service: ? Author Type: Nurse Specialist Type: Progress Notes Filed: 04/02/2023 7:19 AM Note Text: [facility] CORRECTION NOTE NAME: LATA PAPPAS NO.: [id number] DATE OF SERVICE: 03/28/2023 [facility] DATE OF : 1960 REASON FOR VISIT: The patient is a resident of [facility]. This is an acute visit for vomiting. The patient was sent to [facility] emergency room 2 days ago after having chest pain, treated and seen by Cardiology services and returned back to [place]. Upon entering room, found the patient dozing in bed. The patient does not appear to be in distress or discomfort. The patient is easily aroused. When entering room, found the patient dozing in bed. The patient is noted to have a dried red substance in the sheets. The patient is easily aroused. The patient states vomited last night. States vomited approximately 5 times. The patient states did have pork and beans and cranberry juice for dinner last night. The patient states he does feel anxious, followed by episodes of chest pain, then he becomes nauseated and vomits. The patient states no nausea at this time. The patient states no pain. No cough, shortness of breath, fever, chills. States his bowels are moving. States feels as though his bowels are formed and brown. Has been drinking fluids. Denies urinary symptoms. MEDICATIONS: Medications have been reviewed. PHYSICAL EXAMINATION: Temp 97.5, blood pressure 117/70, pulse 69, respirations 16, pulse ox 97% on room air. Weight 229 pounds. Respiratory: Respirations are easy and unlabored with the patient at rest. Lung sounds are clear. Heart: Heart rate and rhythm regular. Abdomen: Soft, nontender with palpation. Bowel sounds present x4. Genitourinary: Todd catheter is intact. It is draining clear yellow urine. Extremities: Left lower extremity nonedematous. Right lower extremity, the patient is a right [id number] amputee. IMPRESSION AND PLAN: 1. Vomiting. The patient does appear to be having episodes of reflux disease with nonradiating chest discomfort and vomiting. The patient does have promethazine for vomiting, adding Prilosec, adding Mylanta as needed. We will continue to monitor. 2. Diabetes. The patient has good glycemic control. Last blood sugar 124. On Lantus, metformin, NovoLog routine. DICTATED BY: MURALI Plaza/Judi JOB# [id number] cc: [facility]05-25-2023 History of Present illness Narrative* Rafy Steiner APRN.COMPUTER ASSEMBLER - 03/28/2023 12:00 AM EDT [facility] CORRECTION NOTE NAME: LATA PAPPAS NO.: [id number] DATE OF SERVICE: 03/28/2023 [facility] DATE OF : 1960 REASON FOR VISIT: The patient is a resident of [facility]. This is an acute visit for vomiting. The patient was sent to [facility] emergency room 2 days ago after having chest pain, treated and seen by Cardiology services and returned back to [place]. Upon entering room, found the patient dozing in bed. The patient does not appear to be in distress or discomfort. The patient is easily aroused. When entering room, found the patient dozing in bed. The patient is noted to have a dried red substance in the sheets. The patient is easily aroused. The patient states vomited last night. States vomited approximately 5 times. The patient states did have pork and beans and cranberry juice for dinner last night. The patient states he does feel anxious, followed by episodes of chest pain, then he becomes nauseated and vomits. The patient states no nausea at this time. The patient states no pain. No cough, shortness of breath, fever, chills. States his bowels are moving. States feels as though his bowels are formed and brown. Has been drinking fluids. Denies urinary symptoms. MEDICATIONS: Medications have been reviewed. PHYSICAL EXAMINATION: Temp 97.5, blood pressure 117/70, pulse 69, respirations 16, pulse ox 97% on room air. Weight 229 pounds. Respiratory: Respirations are easy and unlabored with the patient at rest. Lung sounds are clear. Heart: Heart rate and rhythm regular. Abdomen: Soft, nontender with palpation. Bowel sounds present x4. Genitourinary: Todd catheter is intact. It is draining clear yellow urine. Extremities: Left lower extremity nonedematous. Right lower extremity, the patient is a jncdrjyjfj-uri-ktie amputee. IMPRESSION AND PLAN: 1. Vomiting. The patient does appear to be having episodes of reflux disease with nonradiating chest discomfort and vomiting. The patient does have promethazine for vomiting, adding Prilosec, adding Mylanta as needed. We will continue to monitor. 2. Diabetes. The patient has good glycemic control. Last blood sugar 124. On Lantus, metformin, NovoLog routine. DICTATED BY: MURALI Plaza JOB# [id number] cc: [facility] documented in this encounterC[facility]23 NoteHNO ID: [id number] Author: Lauren Chowdary Service: ? Author Type: Physician Type: Progress Notes Filed: 03/20/2023 5:49 PM Note Text: [facility] CORRECTION NOTE NAME: LATA PAPPAS NO.: [id number] DATE OF SERVICE: 03/19/2023 [facility] DATE OF : 1960 Followup of multiple medical chronic issues, also acute visit. Mikayla is currently up in bed. He continues to complain of problems with his vision. He denies any shortness of breath or chest pain. He did recently complete a course of treatment for his urinary tract infection. Nursing reports no new problems. MEDICATIONS: Reviewed. EXAMINATION: Afebrile, vital signs are stable. HEENT: Intact. Lungs: Clear. Heart: Regular. Abdomen: Soft, obese, nontender. Extremities: With trace left lower extremity edema. Status post right BKA. IMPRESSION: 1. Visual problems - what appears to be acute on chronic. Mikayla states that he has an appointment to follow up with his own packager hand. 2. Diabetes mellitus type 2 - continue to monitor blood sugars. 3. Hypertension - blood pressures within a fair range. 4. Peripheral vascular disease - monitor for signs of ischemia or cyanosis. 5. Bipolar disorder - we will monitor his mood and behavior. Maintain current course of therapy. DICTATED BY: MD MIGUEL Balderas/Judi JOB# [id number] cc: [facility]05-09-2023 NoteHNO ID: [id number] Author: Rafy Steiner APRN.COMPUTER ASSEMBLER Service: ? Author Type: Nurse Specialist Type: Progress Notes Filed: 03/14/2023 7:59 AM Note Text: [facility] CORRECTION NOTE NAME: LATA PAPPAS NO.: [id number] DATE OF SERVICE: 03/12/2023 [facility] DATE OF : 1960 REASON FOR VISIT: The patient is a resident of [facility]. This is a skilled visit for chest pain, urinary tract infection, and other medical concerns. The patient was evaluated in hospital after complaints of chest pain. The patient was found to have urinary tract infection and treated in hospital setting. The patient was returned to [facility]. Upon entering room, found the patient calm, alert, sitting up in bed, watching television. The patient does not appear to be in distress or discomfort. The patient states he has no pain. The patient states no shortness of breath. States does have a cough and some nasal drainage. No fever, chills, or nausea. On asking, the patient how he eats, the patient states does see well when he likes the food, but does not like the food much. The patient states his bowels are moving. Moves bowel movements every other day. States has been drinking fluids. The patient does have a Otdd catheter. Denies urinary symptoms. MEDICATIONS: Medications have been reviewed. PHYSICAL EXAMINATION: Temp 97.8, blood pressure 123/92, pulse 89, respirations 24, pulse ox 95% on room air. Weight 229.2 pounds. Respiratory: Respirations are easy and unlabored with the patient at rest. Lung sounds clear. Heart: Heart rate and rhythm are regular. Abdomen: Soft, nontender with palpation. Bowel sounds present x4. Genitourinary. Todd catheter is intact. It is draining clear yellow urine. Extremities: Left lower extremity - nonedematous, scab to the posterior foot has resolved. The patient is a right msmad-ibm-pkvi amputee. IMPRESSION AND PLAN: 1. Chest pain. The patient has no coronary concerns at this time. On lisinopril, Lipitor, metoprolol. 2. Urinary tract infection. The patient is on no antibiotic therapy. The patient has no urinary symptoms. 3. Chronic kidney disease. Creatinine 1.75, GFR 48. 4. Peripheral vascular disease. Continue to monitor for ischemia or cyanosis. 5. Bipolar disorder. The patient is calm, cooperative with examination. The patient follows with Psychiatric services as needed. On Cymbalta. 6. Diabetes. The patient has glycemic reading of 172. On Lantus, metformin, NovoLog routine. DICTATED BY: MURALI Plaza/Judi JOB# [id number] cc: [facility]05-09-2023 History of Present illness Narrative* Rafy Steiner APRN.COMPUTER ASSEMBLER - 03/12/2023 12:00 AM EDT [facility] NOTE NAME: LATA PAPPAS NO.: [id number] DATE OF SERVICE: 03/12/2023 [facility] DATE OF : 1960 REASON FOR VISIT: The patient is a resident of [facility]. This is a skilled visit for chest pain, urinary tract infection, and other medical concerns. The patient was evaluated in hospital after complaints of chest pain. The patient was found to have urinary tract infection and treated in hospital setting. The patient was returned to [facility]. Upon entering room, found the patient calm, alert, sitting up in bed, watching television. The patient does not appear to be in distress or discomfort. The patient states he has no pain. The patient states no shortness of breath. States does have a cough and some nasal drainage. No fever, chills, or nausea. On asking, the patient how he eats, the patient states does see well when he likes the food, but does not like the food much. The patient states his bowels are moving. Moves bowel movements every other day. States has been drinking fluids. The patient does have a Todd catheter. Denies urinary symptoms. MEDICATIONS: Medications have been reviewed. PHYSICAL EXAMINATION: Temp 97.8, blood pressure 123/92, pulse 89, respirations 24, pulse ox 95% on room air. Weight 229.2 pounds. Respiratory: Respirations are easy and unlabored with the patient at rest. Lung sounds clear. Heart: Heart rate and rhythm are regular. Abdomen: Soft, nontender with palpation. Bowel sounds present x4. Genitourinary. Todd catheter is intact. It is draining clear yellow urine. Extremities: Left lower extremity - nonedematous, scab to the posterior foot has resolved. The patient is a right dueby-qom-ccay amputee. IMPRESSION AND PLAN: 1. Chest pain. The patient has no coronary concerns at this time. On lisinopril, Lipitor, metoprolol. 2. Urinary tract infection. The patient is on no antibiotic therapy. The patient has no urinary symptoms. 3. Chronic kidney disease. Creatinine 1.75, GFR 48. 4. Peripheral vascular disease. Continue to monitor for ischemia or cyanosis. 5. Bipolar disorder. The patient is calm, cooperative with examination. The patient follows with Psychiatric services as needed. On Cymbalta. 6. Diabetes. The patient has glycemic reading of 172. On Lantus, metformin, NovoLog routine. DICTATED BY: MURALI Plaza JOB# [id number] cc:DR Eden Arana [place] documented in this encounterCincinnati [facility]05-04-2023 NoteHNO ID: [id number] Author: Lauren Chowdary Service: ? Author Type: Physician Type: Progress Notes Filed: 03/08/2023 5:09 PM Note Text: [facility] CORRECTION NOTE NAME: LATA PAPPAS NO.: [id number] DATE OF SERVICE: 03/07/2023 [facility] DATE OF : 1960 Readmission History and Physical HISTORY OF PRESENT ILLNESS: The patient is a 62-year-old male who is admitted back to us from [facility] with a diagnosis of acute chest pain, acute urinary tract infection with history of neurogenic bladder requiring chronic indwelling Todd catheter, acute kidney injury, diabetes mellitus type 2 with recent diabetic left foot/heel ulcer, hypertension with history of orthostatic hypotension, posttraumatic stress disorder, right bundle-branch block, previous CVA, 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 He was initially admitted to the hospital after complaining of severe chest pain. Initial evaluation was unremarkable. His troponin levels were negative x4. He was seen by the cardiology service and recommendation was made for a Lexiscan and echogram. He was treated for an acute catheter associated urinary tract infection. He does have chronic indwelling Todd catheter due to neurogenic bladder. He was also found to have possible acute kidney injury on top of chronic kidney disease. His condition was stabilized and improved and he is now admitted back to our facility for continued therapy and long-term care. REVIEW OF SYSTEMS: He is currently resting in bed. He is alert and responsive. He has had no further chest discomfort. His main concern is that he has been constipated. However, he denies any nausea, vomiting, or abdominal pain. His appetite has been fair. He has had no change in his vision or hearing or actual syncope. He currently denies being short of breath. He has no documented history of COPD, asthma, bronchitis or recent pneumonia. He has been treated for COVID in the past. He denies smoking history. He has no documented history of prior heart attacks, heart surgeries or pacemaker. He does have history of Nozjp-Brrwejjbr-Jdzic syndrome and is status post previous radioablation therapy. He does have right bundle-branch block. He does have hypertension. No history of bleeding ulcers, hepatitis, or melena. No prior seizure history. He has had history of strokes, with no significant residual. He is diabetic type 2 with recent left diabetic heel ulcer. He is status post previous right lepgj-odv-bdgz amputation with underlying peripheral arterial disease. FAMILY HISTORY: Significant for hypertension. SOCIAL/FUNCTIONAL HISTORY: He denies smoking or alcohol abuse. He previously worked in [employer]. MEDICATIONS: Colace b.i.d., cyanocobalamin 500 mcg daily, Cymbalta 30 mg daily in the morning, 60 mg at h.s., ergocalciferol 50,000 units weekly, gabapentin 300 mg at bedtime, Lantus insulin 65 units subcu daily, Lipitor 80 mg daily, lisinopril 20 mg daily, melatonin at h.s., metformin 500 mg b.i.d., metoprolol succinate 100 mg daily, NovoLog insulin 6 units subcu before meals, saline nasal spray b.i.d. and [place] p.r.n. ALLERGIES: DEPAKOTE AND DILANTIN. EXAMINATION: Afebrile, vital signs stable. He is in no distress. He appears chronically ill. HEENT: Extraocular movements intact, sclerae nonicteric. Ears intact. Lungs: Clear. Heart: Regular. Abdomen: Soft, obese, nontender. Bowel sounds present. Extremities: With trace left lower extremity edema. He is status post right BKA. He does have generalized weakness. IMPRESSIONS: 1. Chest pain - appears to be atypical and noncardiac. However, he just completed his Lexiscan test, the results of which are pending at this time. We will monitor cardiac status closely. We will follow up with cardiology as an outpatient as indicated. 2. Urinary tract infection - patient did receive a course of antibiotic therapy while in the hospital. Monitor his symptoms closely. He does have indwelling Todd catheter for neurogenic bladder. 3. Possible acute kidney injury on top of chronic kidney disease - we will continue to monitor his fluid balance and renal function closely. We will obtain followup BMP. 4. Peripheral vascular disease with previous right below-knee amputation - monitor circulation closely for any signs of ischemia or cyanosis. 5. Bipolar disorder - monitor his mood and behavior closely. 6. Diabetes mellitus type 2 with diabetic neuropathy - maintain current diabetic regimen, monitor blood sugars closely and make adjustments as needed. His overall condition and progn (more content not included)...[facility]05-04-2023 History of Present illness Narrative* Lauren Chowdary - 03/07/2023 12:00 AM EDT [facility] NOTE NAME: LATA PAPPAS NO.: [id number] DATE OF SERVICE: 03/07/2023 [facility] DATE OF : 1960 Readmission History and Physical HISTORY OF PRESENT ILLNESS: The patient is a 62-year-old male who is admitted back to us from [facility] with a diagnosis of acute chest pain, acute urinary tract infection with history of neurogenic bladder requiring chronic indwelling Todd catheter, acute kidney injury, diabetesmellitus type 2 with recent diabetic left foot/heel ulcer, hypertension with history of orthostatichypotension, posttraumatic stress disorder, right bundle-branch block, previous CVA, Axqwk-Nkjphhyve-Jmdcl syndrome with previous radioablation therapy, peripheral vascular disease with previous right tflbo-ccg-mgml amputation, history of aggressive behavior and homicidal ideation, chronic kidney disease, previous COVID infection, major depressive disorder, chronic anemia, bipolar disorder, obesity, generalized weakness. He was initially admitted to the hospital after complaining of severe chest pain. Initial evaluation was unremarkable. His troponin levels were negative x4. He was seen by the cardiology service and recommendation was made for a Lexiscan and echogram. He was treated for an acute catheter associated urinary tract infection. He does have chronic indwelling Todd catheter due to neurogenic bladder. He was also found to have possible acute kidney injury on top of chronic kidney disease. His condition was stabilized and improved and he is now admitted back to our facility for continued therapy and long-term care. REVIEW OF SYSTEMS: He is currently resting in bed. He is alert and responsive. He has had no further chest discomfort. His main concern is that he has been constipated. However, he denies any nausea,vomiting, or abdominal pain. His appetite has been fair. He has had no change in his vision or hearing or actual syncope. He currently denies being short of breath. He has no documented history of COPD, asthma, bronchitis or recent pneumonia. He has been treated for COVID in the past. He denies smoking history. He has no documented history of prior heart attacks, heart surgeries or pacemaker. 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 He does have right bundle-branch block. He does have hypertension. No history of bleeding ulcers, hepatitis, or melena. No prior seizure history. He has had history of strokes, with no significant residual. He is diabetic type 2 with recent left diabetic heel ulcer. He is status post previous right eqigx-ppd-qkqp amputation with underlying peripheral arterial disease. FAMILY HISTORY: Significant for hypertension. SOCIAL/FUNCTIONAL HISTORY: He denies smoking or alcohol abuse. He previously worked in [employer]. MEDICATIONS: Colace b.i.d., cyanocobalamin 500 mcg daily, Cymbalta 30 mg daily in the morning, 60 mg at h.s., ergocalciferol 50,000 units weekly, gabapentin 300 mg at bedtime, Lantus insulin 65 unitssubcu daily, Lipitor 80 mg daily, lisinopril 20 mg daily, melatonin at h.s., metformin 500 mg b.i.d., metoprolol succinate 100 mg daily, NovoLog insulin 6 units subcu before meals, saline nasal sprayb.i.d. and [place] p.r.n. ALLERGIES: DEPAKOTE AND DILANTIN. EXAMINATION: Afebrile, vital signs stable. He is in no distress. He appears chronically ill. HEENT:Extraocular movements intact, sclerae nonicteric. Ears intact. Lungs: Clear. Heart: Regular. Abdomen: Soft, obese, nontender. Bowel sounds present. Extremities: With trace left lower extremity edema.He is status post right BKA. He does have generalized weakness. IMPRESSIONS: 1. Chest pain - appears to be atypical and noncardiac. However, he just completed his Lexiscan test, the results of which are pending at this time. We will monitor cardiac status closely. We will follow up with cardiology as an outpatient as indicated. 2. Urinary tract infection - patient did receive a course of antibiotic therapy while in the hospital. Monitor his symptoms closely. He does have indwelling Todd catheter for neurogenic bladder. 3. Possible acute kidney injury on top of chronic kidney disease - we will continue to monitor his fluid balance and renal function closely. We will obtain followup BMP. 4. Peripheral vascular disease with previous right below-knee amputation - monitor circulation closely for any signs of ischemia or cyanosis. 5. Bipolar disorder - monitor his mood and behavior closely. 6. Diabetes mellitus type 2 with diabetic neuropathy - maintain current diabetic regimen, monitor blood sugars closely and make adjustments as needed. His overall condition and prognosis is quite guarded. We will obtain followup labs including CBC and BMP. He is here for long-term care. DICTATED BY: MD MIGUEL Balderas/Judi JOB# [id number] cc:DR [facility] documented in this encounterCincinnati [facility]05-02-2023 NoteWilson HealthComment on above:Result Comment: Electronically Signed By: Rima SORENSON\.br\Date and Time Signed: 03/05/23 15:25 EDT\.br\Electronically Co- Signed By: JUD GAMEZ, Corina\.br\Date and Time Co-Signed: 03/06/23 17:29 EDT 03-04-2023 Evaluation + Plan noteExtracted from: Title:Discharge Note Author:Kathy MARIN Date:03/04/23 Hemodynamically stable condi tion Discharge To, Anticipated II - [facility] Discharged to - Extended care facility Discharge Status: Improved Discharge Instructions Given: To patient Discharge disposition: Home Prescriptions reviewed with Patient 65 minutes spent in discharge time with patient, cardiology, SNF, collaborating MD, nursing staff, [facility] Discharge Diet(s): Calorie Controlled- 2000 Calorie Diet, Fat Modified- 50 gram, Low Sodium- 2000 mg, Other: 2000-calorie ADA diet, 2 L fluid restriction, 2 g sodium, low-fat, 2 g potassium, no caffeine diet (03/03/23 13:57:00) Prescriptions cefdinir 300 mg Cap, 300 mg= 1 cap(s), Oral, q12hr [place] 325 mg-5 mg oral tablet, 1 tab(s), Oral, q4hr, PRN Home acetaminophen 325 mg Tab, 650 mg= 2 tab(s), Oral, q4hr, PRN Artificial Tears, 1 drop(s), OPTH, QID aspirin 81 mg Oral EC Tab, 81 mg= 1 tab(s), Oral, Daily atorvastatin 80 mg Tab, 80 mg= 1 tab(s), Oral, Bedtime clotrimazole Top 1% Crm, 1 manuel, Topical, BID cyanocobalamin 500 mcg oral tablet, 500 mcg= 1 tab(s), Oral, Daily Cymbalta 30 mg Cap-DR, 1 cap(s), Oral, Daily Cymbalta 60 mg Cap-DR, 1 cap(s), Oral, Daily docusate sodium 100 mg Cap, 100 mg= 1 cap(s), Oral, BID ergocalciferol 50,000 intl units Cap, 17862 International_Unit= 1 cap(s), Oral, Saturday gabapentin 300 mg Cap, 300 mg= 1 cap(s), Oral, Once a day (at bedtime) insulin lispro, 0-10 Units, SubCutaneous, QIDACHS Lantus Solostar Pen 100 units/mL subcutaneous solution, 10 unit(s), SubCutaneous, Daily lidocaine 4% patch, 1 patch(es), Topical, BID lisinopril 20 mg Tab, 20 mg= 1 tab(s), Oral, Daily Melatonin 5 mg oral tablet, 5 mg= 1 tab(s), Oral, Once a day (at bedtime) metformin 500 mg Tab, 500 mg= 1 tab(s), Oral, BID metoprolol 100 mg ER Tab, 100 mg= 1 tab(s), Oral, Daily remove patch, 1 patch(es), Topical, Daily sodium chloride nasal 0.9% spray, 1 spray(s), Nasal, BID With When Contact Information Arrange with stress lab for patient to return for 2nd part of stress test this week before discharge per Dr. Bryan Additional Instructions: Please contact Nuclear Med for an out patient stress test Additional Instructions: [facility] will provide transportation Jayme De Within 1 week [facility] [address] [place] [address]- Business (1) Additional Instructions: LAUREN CHOWDARY In 0 days [id number] [place] [address] [facility] (1) Additional Instructions: Nonspecific Chest Pain, Adult, Vrjz-tk-Seen Extracted from: Title:Progress Note * Author:Pako GAMEZ, Omar hawk Date:03/04/23 Impression and Plan 1. Episode of chest pain on background of history of coronary artery disease and remote PCI. Details lacking. Patient reports the stent was done remotely. This was done in [place]. Initial evaluation with cardiac enzyme and EKG appears to be negative 2. History of multiple stroke 3. History of Qyhnd-Jjzlyqbal-Gxvng status post ablation in [place] many years ago 4. Bifascicular block 5. Diabetes mellitus 6. 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 Bipolar disorder 8. Probably mild chronic kidney disease 9. Hyperlipidemia 10. Hypertension Plan 1. Continue home medication plus aspirin. The patient appears to be in good pharmacologic therapy 2. Patient echo showed normal LV systolic function. Stress test was done but only stress images available. Does demonstrate mild inferior defect. Will need rest images to determine the presence or absence of ischemia. My suspicion this is would like to be a soft tissue attenuation 3. I believe the patient is stable and can be discharged home. Will need to come back for rest images this week. Nuclear medicine to arrange Extracted from: Title:APSO Note Author:LETA QUINTERO-Rima RICCI ate:03/03/23 Diet: Low potassium, 2 L flu id restriction, ADA 2000-calorie diet per SNF 1. Chest pain (R07.9: Chest pain, unspecified) Tele admission -12 lead ECG reviewed: RSR, RBBB -CXR reviewed: No acute process -Trop. neg x 4 sets -Atorvastatin, lisinopril, metoprolol, metformin, -Add asa, -Consult cardiology - [facility]: -03/02: plan for inpt. lexiscan MPI and echo on 03/04 -GI cocktail x 1, pantoprazole -IV morphine, SL ngt prn CP -Lipid panel - Cholesterol 101, triglycerides 196, HDL 20, LDL direct 47, VLDL 39 -YAMIL score: 4 Ordered: Sbsq Hospital Care/Day High 50 Minutes [id number] 2. UTI (urinary tract infection) (N39.0: Urinary tract infection, site not specified) -Urine cx. - pending -IV vanco- rx. to dose - 03/03 -> transitioned to IV ceftriaxone given neg prelim bl. cx. -03/02: pt refused to todd changed -> will allow to change today with T3 3. Acute kidney injury (N17.9: Acute kidney failure, unspecified) CKD stage - unknown, Baseline Cr - unknown -Awaiting labs from [facility] - nrsng. instructed again today to please obtain and call me when avail. -Hold lisinopril -Renal US - pending -Consult nephrology - pending -IVF x2L given -Trend BMP -Avoid nephrotoxic medications as much as possible 4. Neurogenic bladder (N31.9: Neuromuscular dysfunction of bladder, unspecified) Chronic todd 5. Nausea & vomiting (R11.2: Nausea with vomiting, unspecified) In the setting of CP -> returned during HS -KUB: no acute process -03/03: tolerating diet w/o complaints -IVF, IV anti-emetics prn 6. Abrasion of left foot (S90.812A: Abrasion, left foot, initial encounter) Pt. states ongoing x 2 weeks - states it is improving -Improved today (noted to have underlying scar) -Bacitracin 7. S/P PICC central line placement (Z95.828: Presence of other vascular implants and grafts) 03/01: Per ED nursing note patient arrived from [facility] with right upper extremity midline PICC which was found to have no Hep-Lock hub or On, line not clamped, nursing spoke with SNF staff who could not indicate how long line had been open and believed last documented use was 02/22 and unable to state how long it had been in place. From chart review inserted potentially on 02/14 due to need for hyperkalemia tx. -Dr. Rafy Steiner (promotions specialist for Dr. Chowdary) - d/c line - he will d/w SNF administration -IV atb as above 8. Fever (R50.9: Fever, unspecified) MaxT 38.9 -IV Vanco was initially used for concern of bacteremia - see above -COVID Ag - neg -CXR: No acute process -N/V -> KUB - no acute process - no N/V overnight -Denies diarrhea -Bl. cx: prelim neg. 9. Anemia (D64.9: Anemia, unspecified) Baseline hgb. level - unknown - awaiting SNF records -Anemia panel reviewed - no indication for iron tx. -No acute bleeding noted, hemodynamically stable -Trend labs 10. CAD in [place] artery (I25.10: Atherosclerotic heart disease of [place] coronary artery without angina pectoris) -Atorvastatin, metformin, metoprolol, -Hold lisinopril 11. HTN (hypertension) (I10: Essential (primary) hypertension) -Hold lisinopril -Metoprolol 12. HLD (hyperlipidemia) (E78.5: Hyperlipidemia, unspecified) -Atorvastatin 13. Insulin dependent type 2 diabetes mellitus (E11.9: Type 2 diabetes mellitus without complications) Accuchecks AC/HS w/ SSI prn -Home regimen: Gabapentin, Lantus 65 units a.m., lispro 6u TIDWM, metformin -Hold metformin while inpatient -Hold Lantus until p.o. intake improves -Hypoglycemic protocol 14. Bipolar disorder (F31.9: Bipolar disorder, unspecified) with underlying depression & anxiety -Cymbalta -Chronic fluid restriction 2L daily 2/2 impulsive intake per SNF staff 15. Obesity (E66.9: Obesity, unspecified) BMI 34 -Educated on need for lifestyle modifications with goal of weight loss as obesity has a negative impact on co-morbid conditions 16. History of CVA in adulthood (Z86.73: Personal history of transient ischemic attack (TIA), and cerebral infarction without residual deficits) Chronic LUE/LLE weakness -Return to SNF 17. Hx of right BKA (Z89.511: Acquired absence of right leg below knee) Return to SNF at d/c 18. On deep vein thrombosis (DVT) prophylaxis (Z79.899: Other long term care pharmacist (current) drug therapy) -Heparin sq with early ambulation Orders: acetaminophen-codeine, 1 tab(s), Tab, Oral, Once, Stop date 03/03/23 8:00:00 EDT, Routine, Start date 03/03/23 8:00:00 EDT, 1 hour prior to todd change today ceftriaxone + Sodium Chloride 0.9% intravenous solution 50 mL, 1,000 mg = 1 EA, Injection, IV Piggyback, Daily for 10 day(s), Stop date 03/13/23 8:59:00 EDT, Routine, Start date 03/03/23 9:00:00 EDT, 100 mL/hr, Infuse over 30 minute(s) magnesium sulfate + Dextrose 5% in Water intravenous solution 100 mL, 1 gram = 100 mL, Soln-IV, IV Piggyback, Once, Stop date 03/02/23 8:00:00 EDT, Routine, Start date 03/02/23 8:00:00 EDT, 100 mL/hr, Infuse over 60 minute(s) ocular lubricant, 1 drop(s), Soln-Opth, OPTH, QID, Routine, Start date 03/02/23 9:00:00 EDT polyethylene glycol 3350, 17 gram = 1 EA, Powder-Recon, Oral, Once, Stop date 03/03/23 8:00:00 EDT, Routine, Start date 03/03/23 8:00:00 EDT, 03/03/23 7:51:00 EDT Sodium Chloride 0.9% intravenous solution, Soln-IV, Misc, Once, Stop date 03/02/23 11:23:53 EDT, Physician Stop, 03/02/23 11:23:53 EDT Sodium Chloride 0.9% intravenous solution 1,000 mL, 1,000 mL, IV, 75 mL/hr, for 1 dose(s), Stop date 03/03/23 3:40:00 EDT, Routine, Start date 03/02/23 14:23:00 EDT, 13.3 hour(s), Total volume (mL): 1,000, 104 kg, 2.24, m2 Sodium Chloride 0.9% intravenous solution 500 mL, 500 mL, IV, 20 mL/hr, Other (see comment), Routine, Start date 03/02/23 11:25:00 EDT, 25 hour(s), Total volume (mL): 500, 104 kg, 2.24, m2 vancomycin + Generic Diluent 300 mL, 1,500 mg = 300 mL, Soln-IV, IV Piggyback, Once, Stop date 03/02/23 9:00:00 EDT, Start date 03/02/23 9:00:00 EDT, 200 mL/hr, Infuse over 90 minute(s) Basic Metabolic Panel Communication Order Communication Order Communication Order Communication Order Communication Order Physician to Nursing Communication Order Physician to Nursing Communication Order Physician to Nursing Consult to Nephrology eGFR eGFR Extra Lav Tube Occupational Therapy Evaluate Patient, Develop a Plan of Care and Implement Plan Physical Therapy Evaluate Patient, Develop a Plan of Care and Implement Plan Potassium Level Procalcitonin Urinary Catheter Insertion US Renal XR Abdomen 1 View -Plan discussed w/ patient, nursing staff and CRM. This report was transcribed using voice recognition software. Every effort was made to ensure accuracy, however, inadvertently computerized bilingual spanish inbound sales mistakes may be present. Extracted from: Title:Progress Note * Author:Padmaja Flores MD Date:03/02/23 Patient: MIKAYLA PAPPAS Age: 62 years Sex: Male : 1960 Associated Diagnoses: None Author: Padmaja Flores MD Subjective Patient remained chest pain-free. Vital signs are normal. Cardiac enzymes are normal, EKG showed sinus rhythm with right bundle branch block and left anterior fascicular block with no acute ischemic changes. When questioned the patient denies any previous history of coronary interventions. He reports no previous myocardial infarction's. He does not recall having previous cardiac catheterizations. All what he remember about his cardiac care is the ablation for WPW in 1990. The patient will benefit from Lexiscan MPI and echocardiogram which will be scheduled for Saturday as an inpatient. Currently has no fever. His UA shows no UTI. Health Status Allergies: Allergic Reactions (All) Severity Not Documented Depakote- Unknown. Dilantin- Unknown. Current medications: Home Medications (18) Active atorvastatin 80 mg Tab 80 mg = 1 tab(s), Oral, Bedtime clotrimazole Top 1% Crm 1 manuel, Topical, BID cyanocobalamin 500 mcg oral tablet 500 mcg = 1 tab(s), Oral, Daily Cymbalta 30 mg Cap-DR 1 cap(s), Oral, Daily Cymbalta 60 mg Cap-DR 1 cap(s), Oral, Daily docusate sodium 100 mg Cap 100 mg = 1 cap(s), Oral, BID ergocalciferol 50,000 intl units Cap 50,000 International_Unit = 1 cap(s), Oral, day gabapentin 300 mg Cap 300 mg = 1 cap(s), Oral, Once a day (at bedtime) Lantus Solostar Pen 100 units/mL subcutaneous solution 65 unit(s), SubCutaneous, Daily lidocaine 4% patch 1 patch(es), Topical, BID lisinopril 20 mg Tab 20 mg = 1 tab(s), Oral, Daily Melatonin 5 mg oral tablet 5 mg = 1 tab(s), Oral, Once a day (at bedtime) metformin 500 mg Tab 500 mg = 1 tab(s), Oral, BID metoprolol 100 mg ER Tab 100 mg = 1 tab(s), Oral, Daily mupirocin Top 2% Oint 1 manuel, Topical, BID [place] 325 mg-5 mg oral tablet 1 tab(s), PRN, Oral, q4hr NovoLOG FlexPen 100 units/mL injectable solution 6 unit(s), SubCutaneous, TIDAC sodium chloride nasal 0.9% spray 1 spray(s), Nasal, BID , Medications (25) Active Scheduled: (20) aspirin 81 mg Oral EC Tab [F] 81 mg 1 tab(s), Oral, Daily atorvastatin 40 mg Tab [F] 80 mg 2 tab(s), Oral, Bedtime bacitracin topical 500 units/g Oint Packet [F] 1 manuel, Topical, BID cyanocobalamin 1000 mcg Tab [F] 500 mcg 0.5 tab(s), Oral, Daily docusate sodium 100 mg Cap [F] 100 mg 1 cap(s), Oral, BID DULoxetine 30 mg Cap-DR [F] 30 mg 1 cap(s), Oral, Daily DULoxetine 60 mg Cap-DR [F] 60 mg 1 cap(s), Oral, Daily ergocalciferol 50,000 intl units Cap [F] 50,000 unit(s) 1 cap(s), Oral, Saturday gabapentin 300 mg Cap [F] 300 mg 1 cap(s), Oral, Once a day (at bedtime) heparin 5,000 units/mL Inj [F] 5,000 unit(s) 1 mL, SubCutaneous, BID insulin lispro (Humalog) 100 units/mL SubQ Inj [F] 0-10 Units, SubCutaneous, QIDACHS lidocaine Top 5% film [F] 1 patch(es), Topical, Bedtime melatonin 3 mg Tab [F] 6 mg 2 tab(s), Oral, Once a day (at bedtime) metoprolol 100 mg ER Tab [F] 100 mg 1 tab(s), Oral, Daily ocular lubricant preserved Kaitlyn [F] 1 drop(s), OPTH, QID Remove Patch 1 patch(es), Topical, Daily Sodium Chloride 0.9% 500 mL 500 mL, IV sodium chloride nasal 0.65% [place] [F] 1 spray(s), Nasal, BID vancomycin + Generic Diluent 250 mL 1,250 mg 250 mL, IV Piggyback, q24hr vancomycin PHARMACY TO DOSE [F] PHARMACY TO DOSE, IV, As Directed Continuous: (0) PRN: (5) acetaminophen 325 mg Tab UD [F] 650 mg 2 tab(s), Oral, q4hr acetaminophen-HYDROcodone 325 mg-5 mg Tab [F] 1 tab(s), Oral, q6hr dextrose 50% IV Kaitlyn 50 mL Abboject [F] 50 mL, IV Push, Once nitroglycerin 0.4 mg sublingual Tab [F] 0.4 mg 1 tab(s), SubLingual, q5min ondansetron 2 mg/mL Inj [F] 4 mg 2 mL, IV Push, q6hr Problem list: All Problems At risk for falls / [id number] / Possible Histories Past Medical History: No active or resolved past medical history items have been selected or recorded. Family History: Dementia Mother Hypertension Mother Diabetes mellitus type 1 Father Stroke Mother Alzheimer's disease Mother Procedure history: No active procedure history items have been selected or recorded. Social History Social & Psychosocial Habits Alcohol 03/01/2023Risk Assessment: Denies Alcohol Use Substance Abuse 03/01/2023Risk Assessment: Denies Substance Abuse Tobacco 03/01/2023Risk Assessment: Denies Tobacco Use . Objective Vital Signs (last 24 hrs) Last Charted Temp OralH 38.2DegC (MAR 02 11:00) Heart Rate Fovigo87 bpm (MAR 02 11:35) Resp Rate 20 br/min (MAR 01 14:27) SBPH 141mmHg (MAR 02 11:35) DBP65 mmHg (MAR 02 11:35) OyX470 % (MAR 02 11:00) Dqlvff940.9 kg (MAR 02 06:17) BMI33.49 (MAR 01 15:57) Review / Management Results review: Lab results 03/02/2023 11:46 EDT Glucose Cap 123 mg/dL GA POC Device SN [id number] POC User ID [id number] POC Username ELIDIA JACOBSON 03/02/2023 8:31 EDT Glucose Cap 120 mg/dL GA POC Device SN [id number] POC User ID [id number] POC Username ELIDIA JACOBSON 03/02/2023 5:13 EDT WBC 7.6 E9/L RBC 2.6 E12/L LOW HGB 8.2 gm/dL LOW Hct 24.2 % LOW MCV 91.9 fL MCH 31.3 pg MCHC 34.1 gm/dL RDW 13.0 % Platelet 244.0 E9/L MPV 6.7 fL Neutro Auto 85.1 % HI Lymph Auto 7.1 % LOW Rhea Auto 7.3 % Eos Auto 0.3 % Basophil Auto 0.2 % Neutro Absolute 6.5 E9/L Lymph Absolute 0.5 E9/L LOW Rhea Absolute 0.6 E9/L Eos Absolute 0.0 E9/L Basophil Absolute 0.0 E9/L Glucose Lvl 122 mg/dL BUN 40 mg/dL HI Creatinine 1.9 mg/dL HI eGFR 40 mL/min/1.73 m2 LOW BUN/Creat Ratio 21 HI Sodium Lvl 136 mmol/L Potassium Lvl 5.0 mmol/L Chloride 108 mmol/L CO2 19 mmol/L LOW AGAP 14 mEq/L Calcium Lvl 8.5 mg/dL LOW Magnesium 1.7 mg/dL Chol 101 mg/dL LOW Trig 196 mg/dL HI HDL 20 mg/dL NA LDL Direct 47 mg/dL VLDL 39 mg/dL 03/02/2023 3:18 EDT Rapid COVID Ag Not Detected Rapid COV Int NEG Ctl Pass Rapid COV Int POS Ctl Pass 03/01/2023 20:12 EDT Glucose Cap 138 mg/dL GA POC Device SN [id number] POC User ID [id number] POC Username POC Username 03/01/2023 19:39 EDT Troponin 16.70 pg/mL 03/01/2023 16:59 EDT Troponin 16.00 pg/mL 03/01/2023 16:41 EDT Glucose Cap 136 mg/dL GA POC Device SN [id number] POC User ID [id number] POC Username POC Username 03/01/2023 16:34 EDT UA Spec Desc Clean Catch UA Color Yellow UA Clarity SL CLOUDY UA Spec Grav <=1.005 UA pH 8.5 UA Protein 3+ UA Glucose Negative UA Ketones Negative UA Bili Negative UA Blood Trace UA Nitrite Negative UA Urobilinogen 0.2 EU/dL UA Leuk Est 2+ UA RBC 0-3 /HPF UA Squam Epithelial 0-2 /HPF UA WBC 0-5 /HPF UA Bacteria 1+ /HPF UA CA Ox Crystal Present UA Trip Jake Natacha Present UA Amoprh Phos Natacha Present UA Mucous 1+ Urine Culture POS (In Progress) 03/01/2023 13:48 EDT Iron 81 mcg/dL Transferrin 185 mg/dL LOW TIBC 259 mcg/dL LDH 157 Int._Unit/L TSH 2.64 mcIU/mL Troponin 15.80 pg/mL LOW 03/01/2023 11:09 EDT WBC 8.3 E9/L RBC 3.1 E12/L LOW HGB 9.5 gm/dL LOW Hct 28.7 % LOW MCV 91.9 fL MCH 30.3 pg MCHC 33.0 gm/dL RDW 13.0 % Platelet 289.0 E9/L MPV 6.4 fL Neutro Auto 71.8 % Lymph Auto 14.1 % Rhea Auto 11.2 % Eos Auto 2.6 % Basophil Auto 0.3 % Neutro Absolute 6.0 E9/L Lymph Absolute 1.2 E9/L Rhea Absolute 0.9 E9/L Eos Absolute 0.2 E9/L Basophil Absolute 0.0 E9/L Reticulocyte 0.8 % PT 11.4 second(s) INR 1.0 NA PTT 34.0 second(s) Glucose Lvl 195 mg/dL BUN 39 mg/dL HI Creatinine 1.7 mg/dL HI eGFR 45 mL/min/1.73 m2 LOW BUN/Creat Ratio 23 HI Sodium Lvl 136 mmol/L Potassium Lvl 5.2 mmol/L Chloride 106 mmol/L CO2 22 mmol/L AGAP 13 mEq/L Calcium Lvl 9.0 mg/dL Alk Phos 110 Int._Unit/L HI ALT 13 Int._Unit/L AST 17 Int._Unit/L Total Protein 7.4 gm/dL Albumin Lvl 3.2 gm/dL LOW Globulin 4.2 gm/dL HI A/G Ratio 0.8 LOW Bili Total 0.4 mg/dL Bili Direct <0.1 mg/dL Bili Indirect Unable to Calculate mg/dL Lipase Lvl 37 unit/L Troponin 15.20 pg/mL LOW Vitamin B12 Lvl 531 pg/mL Folate Lvl 13.6 ng/mL Ferritin Lvl 426 ng/mL HI . Impression and Plan 1 atypical chest pain in a diabetic patient with no acute ischemic changes and no troponin rise. There is no previous history of coronary artery disease that he remembers. Patient will be scheduled for inpatient Lexiscan Cardiolite stress test 2 day protocol due to his size along with an echocardiogram. Continue aspirin and statin. 2 disability due to previous strokes with no history of atrial fibrillation 3 severe PAD status post right below-knee amputation 2020. Continue aspirin and statin, patient is non-smoker. Aggressive diabetes management 4 remote history of WPW ablation with no recurrences. 5 obesity Addendum by López Flores MD on March 02, 2023 13:14 EDT Physical examination: Alert and oriented in no distress. HEENT: Normocephalic atraumatic, pupils equal round and reactive Neck: No JVD or bruit Respiratory: Clear lungs with no rales or wheezing Cardiac examination: Regular rate and rhythm with no gallop murmurs or rub Abdomen: Soft and benign with no tenderness and normal bowel sounds Extremities: Right below-knee amputation, no edema in the left lower extremity Extracted from: Title:APSO Note Author:Rima MARIN ate:03/02/23 Diet: Low potassium, 2 L flu id restriction, ADA 2000-calorie diet per SNF 1. Chest pain (R07.9: Chest pain, unspecified) Tele admission -12 lead ECG reviewed: RSR, RBBB -CXR reviewed: No acute process -Trop. neg x 4 sets -Atorvastatin, lisinopril, metoprolol, metformin, -Add asa, -Consult cardiology - NO -no further work-up, outpatient Lexiscan. -GI cocktail x 1, pantoprazole -IV morphine, SL ngt prn CP -Lipid panel - Cholesterol 101, triglycerides 196, HDL 20, LDL direct 47, VLDL 39 -YAMIL score: 4 Ordered: Initial Hospital Care/Day High 75 Minutes [id number] 2. Acute kidney injury (N17.9: Acute kidney failure, unspecified) CKD stage - unknown, Baseline Cr - unknown -Awaiting labs from SNF -Hold lisinopril -Renal US & PVR - if Cr worsens -Consult nephrology - if Cr worsens -IVF x 1 liter then re-eval. -Trend BMP -Avoid nephrotoxic medications as much as possible 3. Nausea & vomiting (R11.2: Nausea with vomiting, unspecified) In the setting of CP -> returned during HS -KUB: pending -IVF, IV anti-emetics prn 4. Abrasion of left foot (S90.812A: Abrasion, left foot, initial encounter) Pt. states ongoing x 2 weeks - states it is improving -Improved today (noted to have underlying scar) -Bacitracin 5. S/P PICC central line placement (Z95.828: Presence of other vascular implants and grafts) 03/01: Per ED nursing note patient arrived from SNF with right upper extremity midline PICC which was found to have no Hep-Lock hub or On, line not clamped, nursing spoke with SNF staff who could not indicate how long line had been open and believed last documented use was 02/22 and unable to state how long it had been in place. From chart review inserted potentially on 02/14 due to need for hyperkalemia tx. -Dr. Rafy Steiner (promotions specialist for Dr. Chowdary) - d/c line - he will d/w SNF administration 6. Fever (R50.9: Fever, unspecified) MaxT 38.9 - no clear source yet - ? PICC line -COVID Ag - neg -CXR: No acute process -N/V -> KUB - pending -Denies diarrhea -UA: pending -Bl. cx: pending 7. Anemia (D64.9: Anemia, unspecified) Baseline hgb. level - unknown - awaiting SNF records -Anemia panel reviewed - no indication for iron tx. -No acute bleeding noted, hemodynamically stable -Trend labs 8. CAD in [place] artery (I25.10: Atherosclerotic heart disease of [place] coronary artery without angina pectoris) -Atorvastatin, metformin, metoprolol, -Hold lisinopril 9. HTN (hypertension) (I10: Essential (primary) hypertension) -Hold lisinopril -Metoprolol 10. HLD (hyperlipidemia) (E78.5: Hyperlipidemia, unspecified) -Atorvastatin 11. Neurogenic bladder (N31.9: Neuromuscular dysfunction of bladder, unspecified) Chronic todd 12. Insulin dependent type 2 diabetes mellitus (E11.9: Type 2 diabetes mellitus without complications) Accuchecks AC/HS w/ SSI prn -Home regimen: Gabapentin, Lantus 65 units a.m., lispro 6u TIDWM, metformin -Hold metformin while inpatient -Hold Lantus until p.o. intake improves -Hypoglycemic protocol 13. Bipolar disorder (F31.9: Bipolar disorder, unspecified) with underlying depression & anxiety -Cymbalta -Chronic fluid restriction 2L daily 2/2 impulsive intake per SNF staff 14. Obesity (E66.9: Obesity, unspecified) BMI 34 -Educated on need for lifestyle modifications with goal of weight loss as obesity has a negative impact on co-morbid conditions 15. History of CVA in adulthood (Z86.73: Personal history of transient ischemic attack (TIA), and cerebral infarction without residual deficits) Chronic LUE/LLE weakness -Return to SNF 16. Hx of right BKA (Z89.511: Acquired absence of right leg below knee) Return to SNF at d/c 17. On deep vein thrombosis (DVT) prophylaxis (Z79.899: Other custodial (current) drug therapy) -Heparin sq with early ambulation Orders: acetaminophen-hydrocodone, 1 tab(s), Tab, Oral, q6hr PRN Pain for 5 day(s), Stop date 03/06/23 15:28:00 EDT, Routine, Start date 03/01/23 15:29:00 EDT Al hydroxide/Mg hydroxide/simethicone, 30 mL, Susp-Oral, Oral, Once, Stop date 03/01/23 15:00:00 EDT, Routine, Start date 03/01/23 15:00:00 EDT aspirin, 81 mg = 1 tab(s), Tab-EC, Oral, Daily, Routine, Start date 03/02/23 9:00:00 EDT, 03/01/23 14:22:00 EDT atorvastatin, 80 mg = 2 tab(s), Tab, Oral, Bedtime, Routine, Start date 03/01/23 21:00:00 EDT, 03/01/23 15:29:00 EDT atropine/hyoscyamine/PB/scopolamine, 10 mL, Elixir, Oral, Once, Stop date 03/01/23 15:00:00 EDT, Routine, Start date 03/01/23 15:00:00 EDT bacitracin topical, 1 manuel, Ointment, Topical, BID, Routine, Start date 03/01/23 21:00:00 EDT cyanocobalamin, 500 mcg = 0.5 tab(s), Tab, Oral, Daily, Routine, Start date 03/02/23 9:00:00 EDT, 03/01/23 15:30:00 EDT docusate, 100 mg = 1 cap(s), Cap, Oral, BID, Routine, Start date 03/01/23 21:00:00 EDT, 03/01/23 15:30:00 EDT duloxetine, 60 mg = 1 cap(s), Cap-DR, Oral, Daily, Routine, Start date 03/02/23 9:00:00 EDT duloxetine, 30 mg = 1 cap(s), Cap-DR, Oral, Daily, Routine, Start date 03/02/23 9:00:00 EDT ergocalciferol, 50,000 unit(s) = 1 cap(s), Cap, Oral, Saturday, Routine, Start date 03/02/23 9:00:00 EDT gabapentin, 300 mg = 1 cap(s), Cap, Oral, Once a day (at bedtime), Routine, Start date 03/01/23 21:00:00 EDT, 03/01/23 15:30:00 EDT glucose, 50 mL, Soln-IV, IV Push, Once PRN Blood glucose, Routine, Start date 03/01/23 14:58:00 EDT heparin, 5,000 unit(s) = 1 mL, Injection, SubCutaneous, BID, Routine, Start date 03/01/23 21:00:00 EDT, 03/01/23 14:22:00 EDT insulin lispro, 0-10 Units, Injection-Insulin, SubCutaneous, QIDACHS, Routine, Start date 03/01/23 16:30:00 EDT lidocaine topical, 1 patch(es), Patch, Topical, Bedtime, Routine, Start date 03/01/23 21:00:00 EDT, Low back lidocaine topical, 200 mg, 10 mL, Soln-Oral, Oral, Once, Stop date 03/01/23 15:00:00 EDT, Routine, Start date 03/01/23 15:00:00 EDT magnesium sulfate + Dextrose 5% in Water intravenous solution 100 mL, 1 gram = 100 mL, Soln-IV, IV Piggyback, Once, Stop date 03/02/23 8:00:00 EDT, Routine, Start date 03/02/23 8:00:00 EDT, 100 mL/hr, Infuse over 60 minute(s) melatonin, 6 mg = 2 tab(s), Tab, Oral, Once a day (at bedtime), Routine, Start date 03/01/23 21:00:00 EDT, 03/01/23 15:31:00 EDT metoprolol, 100 mg = 1 tab(s), Tab-ER, Oral, Daily, Routine, Start date 03/02/23 9:00:00 EDT, Hold for sbp 110 or less or HR 55 or less nitroglycerin, 0.4 mg = 1 tab(s), Tab, SubLingual, q5min PRN Chest pain for 3 dose(s), Stop date Limited # of times, Routine, Start date 03/01/23 14:22:00 EDT, 03/01/23 14:22:00 EDT ocular lubricant, 1 drop(s), Soln-Opth, OPTH, QID, Routine, Start date 03/02/23 9:00:00 EDT remove patch, 1 patch(es), Patch, Topical, Daily, 03/02/23 9:00:00 EDT Sodium Chloride 0.9% intravenous solution 1,000 mL, 1,000 mL, IV, 75 mL/hr, for 1 dose(s), Stop date 03/02/23 3:39:00 EDT, Routine, Start date 03/01/23 14:22:00 EDT, 13.3 hour(s), Total volume (mL): 1,000, 104 kg, 2.24, m2 sodium chloride nasal, 1 spray(s), [place], Nasal, BID, Routine, Start date 03/01/23 21:00:00 EDT vancomycin, PHARMACY TO DOSE, Injection, IV, As Directed, Routine, Start date 03/02/23 7:41:00 EDT vancomycin + Generic Diluent 300 mL, 1,500 mg = 300 mL, Soln-IV, IV Piggyback, Once, Stop date 03/02/23 9:00:00 EDT, Start date 03/02/23 9:00:00 EDT, 200 mL/hr, Infuse over 90 minute(s) Ambulate with Assistance Automated Diff Basic Metabolic Panel Below the Knee Intermittent Pneumatic Compression Device Cardiac Monitoring CBC w/ Auto Diff Chest Pain, AMI Quality Measures Communication Order Communication Order Physician to Nursing Communication Order Physician to Nursing Consult to Cardiology Diabetic/Calorie Control Diet Elevate Head of Bed Evaluate Need For Continued Telemetry Hypoglycemia Protocol Responsive Patient Hypoglycemia Protocol Unresponsive Patient Intake and Output Lipid Panel Magnesium Level Notify Provider Vital Signs Notify Provider Vital Signs Occupational Therapy Evaluate Patient, Develop a Plan of Care and Implement Plan Oxygen Protocol Physical Therapy Evaluate Patient, Develop a Plan of Care and Implement Plan Precautions Pulse Oximetry Resuscitation Status - Full Routine Capillary Glucose POC YAMIL Risk Score Turn Patient Vital Signs Weight XR Abdomen 1 View -Plan discussed w/ patient, nursing staff and CRM. -Disposition: Transition to inpt. status as he will require IVF, IV antiemetics, KUB, and ongoing eval. of fever of unknown source this a.m. and therefore will require > 2MN stays for tx. of above This report was transcribed using voice recognition software. Every effort was made to ensure accuracy, however, inadvertently computerized bilingual spanish inbound sales mistakes may be present. Extracted from: Title:Cardiovascular Admission H&P * Author:Mora marroquin MD, Jayme Date:03/01/23 Impression and Plan 1. Episode of chest pain on background of history of coronary artery disease and remote PCI. Details lacking. This was done in [place]. Initial evaluation with cardiac enzyme and EKG appears to be negative 2. History of multiple stroke 3. 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 Bifascicular block 5. Diabetes mellitus 6. 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 Bipolar disorder 8. Probably mild chronic kidney disease 9. Hyperlipidemia 10. Hypertension Plan 1. Continue home medication plus aspirin. The patient appears to be in good pharmacologic therapy 2. Continue serial enzymes and EKG 3. If all enzymes are negative and no further symptoms I believe outpatient Lexiscan myocardial fusion study appears to be appropriate next step 4. Continue with aggressive approach for secondary prevention Extracted from: Title:Admission H & P Author:Jesus MARIN Date:03/01/23 Diet: Low potassium, 2 L flu id restriction, ADA 1999-calorie diet per SNF 1. Chest pain (R07.9: Chest pain, unspecified) Tele admission -12 lead ECG reviewed: RSR, RBBB -CXR reviewed: No acute process -Atorvastatin, lisinopril, metoprolol, metformin, -Add asa, -Consult cardiology - NO[facility] - pending -No indication for heparin gtt. -GI cocktail x 1, pantoprazole -IV morphine, SL ngt prn CP -Trend troponin levels x 4 sets - pending -Lipid panel - pending -YAMIL score: 4 2. Acute kidney injury (N17.9: Acute kidney failure, unspecified) CKD stage - unknown, Baseline Cr - unknown -Awaiting labs from SNF -Hold lisinopril -UA - pending -Renal US & PVR - if Cr worsens -Consult nephrology - if Cr worsens -IVF x 1 liter then re-eval. -Trend BMP -Avoid nephrotoxic medications as much as possible 3. Nausea & vomiting (R11.2: Nausea with vomiting, unspecified) In the setting of CP -> Resolved at present -IVF, IV anti-emetics prn 4. Abrasion of left foot (S90.812A: Abrasion, left foot, initial encounter) Pt. states ongoing x 2 weeks - states it is improving -Bacitracin 5. S/P PICC central line placement (Z95.828: Presence of other vascular implants and grafts) 03/01: Per nursing note patient arrived from SNF with right upper extremity midline PICC which was found to have no Hep-Lock hub or On, line not clamped, nursing spoke with SNF staff who could not indicate how long line had been open and believed last documented use was 02/22 and unable to state how long it had been in place. From chart review inserted potentially on 02/14 due to need for hyperkalemia tx. -Dr. Rafy Steiner (promotions specialist for Dr. Chowdary) - d/c line - he will d/w SNF administration 6. Anemia (D64.9: Anemia, unspecified) Baseline hgb. level - unknown - awaiting SNF records -Anemia panel - pending -No acute bleeding noted, hemodynamically stable -Trend labs 7. CAD in [place] artery (I25.10: Atherosclerotic heart disease of [place] coronary artery without angina pectoris) -Atorvastatin, metformin, metoprolol, -Hold lisinopril, 8. HTN (hypertension) (I10: Essential (primary) hypertension) -Hold lisinopril -Metoprolol 9. HLD (hyperlipidemia) (E78.5: Hyperlipidemia, unspecified) -Atorvastatin 10. Neurogenic bladder (N31.9: Neuromuscular dysfunction of bladder, unspecified) Chronic todd 11. Insulin dependent type 2 diabetes mellitus (E11.9: Type 2 diabetes mellitus without complications) Accuchecks AC/HS w/ SSI prn -Home regimen: Gabapentin, Lantus 65 units a.m., lispro 6u TIDWM, metformin -Hold metformin while inpatient -Hold Lantus until p.o. intake improves -Hypoglycemic protocol 12. Bipolar disorder (F31.9: Bipolar disorder, unspecified) with underlying depression & anxiety -Cymbalta -Chronic fluid restriction 2L daily 2/2 impulsive intake per SNF staff 13. Obesity (E66.9: Obesity, unspecified) BMI 34 -Educated on need for lifestyle modifications with goal of weight loss as obesity has a negative impact on co-morbid conditions. 14. History of CVA in adulthood (Z86.73: Personal history of transient ischemic attack (TIA), and cerebral infarction without residual deficits) Chronic LUE/LLE weakness -Return to SNF 15. Hx of right BKA (Z89.511: Acquired absence of right leg below knee) Return to SNF at d/c 16. On deep vein thrombosis (DVT) prophylaxis (Z79.899: Other custodial (current) drug therapy) -Heparin sq with early ambulation Orders: Al hydroxide/Mg hydroxide/simethicone, 30 mL, Susp-Oral, Oral, Once, Stop date 03/01/23 15:00:00 EDT, Routine, Start date 03/01/23 15:00:00 EDT aspirin, 81 mg = 1 tab(s), Tab-EC, Oral, Daily, Routine, Start date 03/02/23 9:00:00 EDT, 03/01/23 14:22:00 EDT atropine/hyoscyamine/PB/scopolamine, 10 mL, Elixir, Oral, Once, Stop date 03/01/23 15:00:00 EDT, Routine, Start date 03/01/23 15:00:00 EDT bacitracin topical, 1 manuel, Ointment, Topical, BID, Routine, Start date 03/01/23 21:00:00 EDT glucose, 50 mL, Soln-IV, IV Push, Once PRN Blood glucose, Routine, Start date 03/01/23 14:58:00 EDT heparin, 5,000 unit(s) = 1 mL, Injection, SubCutaneous, BID, Routine, Start date 03/01/23 21:00:00 EDT, 03/01/23 14:22:00 EDT insulin lispro, 0-10 Units, Injection-Insulin, SubCutaneous, QIDACHS, Routine, Start date 03/01/23 16:30:00 EDT lidocaine topical, 200 mg, 10 mL, Soln-Oral, Oral, Once, Stop date 03/01/23 15:00:00 EDT, Routine, Start date 03/01/23 15:00:00 EDT nitroglycerin, 0.4 mg = 1 tab(s), Tab, SubLingual, q5min PRN Chest pain for 3 dose(s), Stop date Limited # of times, Routine, Start date 03/01/23 14:22:00 EDT, 03/01/23 14:22:00 EDT Sodium Chloride 0.9% intravenous solution 1000 mL, 1,000 mL, IV, 75 mL/hr, for 1 dose(s), Stop date 03/02/23 3:39:00 EDT, Routine, Start date 03/01/23 14:22:00 EDT, 13.3 hour(s), Total volume (mL): 1,000, 104 kg, 2.24, m2 Ambulate with Assistance Below the Knee Intermittent Pneumatic Compression Device Cardiac Monitoring CBC w/ Auto Diff Chest Pain, AMI Quality Measures Communication Order Communication Order Physician to Nursing Consult to Cardiology Diabetic/Calorie Control Diet Elevate Head of Bed Evaluate Need For Continued Telemetry Hypoglycemia Protocol Responsive Patient Hypoglycemia Protocol Unresponsive Patient Intake and Output Lipid Panel Magnesium Level Notify Provider Vital Signs Notify Provider Vital Signs Occupational Therapy Evaluate Patient, Develop a Plan of Care and Implement Plan Oxygen Protocol Physical Therapy Evaluate Patient, Develop a Plan of Care and Implement Plan Precautions Pulse Oximetry Resuscitation Status - Full Routine Capillary Glucose POC YAMIL Risk Score Turn Patient Vital Signs Weight -Plan discussed w/ patient, nursing staff and CRM. -Disposition: Patient will likely be greater than 2 midnight stays for treatment of above. This report was transcribed using voice recognition software. Every effort was made to ensure accuracy, however, inadvertently computerized bilingual spanish inbound sales mistakes may be present. [facility]04-30-2023 Hospital Discharge instructions Patient Education 03/03/2023 16:28:06 Nonspecific Chest Pain, Adult, Yupp-da-Erxg Nonspecific Chest Pain Chest pain can be caused by many different conditions. Some causes of chest pain can be life-threatening. These will require treatment right away. Serious causes of chest pain include: Heart attack. A tear in the body's main blood vessel. Redness and swelling (inflammation) around your heart. Blood clot in your lungs. Other causes of chest pain may not be so serious. These include: Heartburn. Anxiety or stress. Damage to bones or muscles in your chest. Lung infections. Chest pain can feel like: Pain or discomfort in your chest. Crushing, pressure, aching, or squeezing pain. Burning or tingling. Dull or sharp pain that is worse when you move, cough, or take a deep breath. Pain or discomfort that is also felt in your back, neck, jaw, shoulder, or arm, or pain that spreads to any of these areas. It is hard to know whether your pain is caused by something that is serious or something that is not so serious. So it is important to see your doctor right away if you have chest pain. Follow these instructions at home: Medicines Take [id number] and prescription medicines only as told by your doctor. If you were prescribed an antibiotic medicine, take it as told by your doctor. Do not stop taking the antibiotic even if you start to feel better. Lifestyle Rest as told by your doctor. Do not use any products that contain nicotine or tobacco, such as cigarettes, e- cigarettes, and chewing tobacco. If you need help quitting, ask your doctor. Do not drink alcohol. Make lifestyle changes as told by your doctor. These may include: ?Getting regular exercise. Ask your doctor what activities are safe for you. ?Eating a heart-healthy diet. A diet and director of food and nutrition services (dietitian) can help you to learn healthy eating options. ?Staying at a healthy weight. ?Treating diabetes or high blood pressure, if needed. ?Lowering your stress. Activities such as yoga and relaxation techniques can help. General instructions Pay attention to any changes in your symptoms. Tell your doctor about them or any new symptoms. Avoid any activities that cause chest pain. Keep all follow-up visits as told by your doctor. This is important. You may need more testing if your chest pain does not go away. Contact a doctor if: Your chest pain does not go away. You feel depressed. You have a fever. Get help right away if: Your chest pain is worse. You have a cough that gets worse, or you cough up blood. You have very bad (severe) pain in your belly (abdomen). You pass out (faint). You have either of these for no clear reason: ?Sudden chest discomfort. ?Sudden discomfort in your arms, back, neck, or jaw. You have shortness of breath at any time. You suddenly start to sweat, or your skin gets clammy. You feel sick to your stomach (nauseous). You throw up (vomit). You suddenly feel lightheaded or dizzy. You feel very weak or tired. Your heart starts to beat fast, or it feels like it is skipping beats. These symptoms may be an emergency. Do not wait to see if the symptoms will go away. Get medical help right away. Call your local emergency services (911 in the [place] Do not drive yourself to the hospital. Summary Chest pain can be caused by many different conditions. The cause may be serious and need treatment right away. If you have chest pain, see your doctor right away. Follow your doctor's instructions for taking medicines and making lifestyle changes. Keep all follow-up visits as told by your doctor. This includes visits for any further testing if your chest pain does not go away. Be sure to know the signs that show that your condition has become worse. Get help right away if you have these symptoms. This information is not intended to replace advice given to you by your health care provider. Make sure you discuss any questions you have with your health care provider. Document Revised: 01/04/2022 Document Reviewed: 01/04/2022 [employer] Patient Education 2022 [employer]. Follow Up Care 03/01/2023 11:00:55 With:Arrange with stress lab for patient to return for 2nd part of stress test this week before discharge per Dr. Bryan Address:Unknown When: Unknown With:Please contact [facility] for an out patient stress test Address:Unknown When: Unknown Comments:[facility] provide transportation With:Jayme De Address: [facility] [address] [place] [address]- Business (1) When:1 week With:LAUREN CHOWDARY Address: [address] [place] [address]- Business (1) When: Unknown [facility]04-28-2023 NoteFishJohns Hopkins HospitalComment on above:Result Comment: Electronically Signed By: Rima MARIN\.br\Date and Time Signed: 03/01/23 15:29 EDT\.br\Electronically Co-Signed By: Rima MARIN\.br\Date and Time Co-Signed: 03/01/23 15:37 EDT\.br\Electronically Co-Signed By: William BAER MD\.br\Date and Time Co-Signed: 03/01/23 16:30 [id number] NoteHNO ID: [id number] Author: Rafy Steiner APRN.COMPUTER ASSEMBLER Service: ? Author Type: Nurse Specialist Type: Progress Notes Filed: 03/04/2023 6:59 AM Note Text: [facility] NOTE NAME: LATA PAPPAS NO.: [id number] DATE OF SERVICE: 02/28/2023 [facility] DATE OF : 1960 REASON FOR VISIT: The patient is a resident of [facility]. This is a skilled visit for chronic kidney disease and other medical concerns. Upon entering the room found patient calm, alert, lying in bed, watching television. The patient does not appear to be in distress or discomfort. The patient states his only complaint is left eye blurred vision. The patient states typically sees retinology services and gets an injection in the left eye to correct this. The patient states no other complaints. The patient did have orders to follow up with his retinologist in [place]. The facility is unable to transport to [place]. The patient states no pain, cough, shortness of breath. No fever, chills or nausea. States he has been eating fairly well and bowels have been moving. States has been drinking fluids. The patient is on Todd catheter. The patient states no urinary symptoms. Medications have been reviewed. PHYSICAL EXAMINATION: Temperature is 98.0, blood pressure 136/73, pulse 79, respirations 18, pulse ox 98% on room air. Weight 228.8 pounds. Respiratory: Respirations are easy and unlabored with patient at rest. Lungs sounds are clear. Heart: Heart rate and rhythm regular. Abdomen: Soft, nontender with palpation. Bowel sounds present x4. Genitourinary: Todd catheter is intact. It is draining clear yellow urine. Extremities: Left lower extremity is nonedematous. Continued skin flaking and mild redness to the anterior foot. Posterior foot at the heel area, left heel area does have a scabbed area. No drainage, no erythema is identified to either areas. IMPRESSION AND PLAN: 1. Chronic kidney disease. Laboratory work performed on February 26, 2023. 2. Hyperkalemia. Again, patient will have laboratory work performed on February 28, 2023. 3. Hypertension. The patient has fair blood pressure control. Lisinopril was held and metoprolol continues. 4. Diabetic foot ulcer. Continue to monitor for signs of infection. 5. Depression, on Cymbalta. The patient will follow Psychiatric Services as needed. 6. Constipation. The patient states bowels are moving appropriately now. DICTATED BY: MURALI Plaza JOB# [id number] cc: [facility]04-27-2023 History of Present illness Narrative* Rafy Steiner APRN.COMPUTER ASSEMBLER - 02/28/2023 12:00 AM EDT [facility] NOTE NAME: LATA PAPPAS NO.: [id number] DATE OF SERVICE: 02/28/2023 [facility] DATE OF : 1960 REASON FOR VISIT: The patient is a resident of [facility]. This is a skilled visit for chronic kidney disease and other medical concerns. Upon entering the room found patient calm, alert, lying in bed, watching television. The patient does not appear to be in distress or discomfort. The patient states his only complaint is left eye blurred vision. The patient states typically sees retinology services and gets an injection in the left eye to correct this. The patient states no other complaints. The patient did have orders to follow up with his retinologist in [place]. The facility is unable to transport to [place]. The patient states no pain, cough, shortness of breath. No fever, chills or nausea. States he has been eating fairly well and bowels have been moving. States has been drinking fluids. The patient is on Todd catheter. The patient states no urinary symptoms. Medications have been reviewed. PHYSICAL EXAMINATION: Temperature is 98.0, blood pressure 136/73, pulse 79, respirations 18, pulse ox 98% on room air. Weight 228.8 pounds. Respiratory: Respirations are easy and unlabored with patient at rest. Lungs sounds are clear. Heart: Heart rate and rhythm regular. Abdomen: Soft, nontender with palpation. Bowel sounds present x4. Genitourinary: Todd catheter is intact. It is draining clear yellow urine. Extremities: Left lower extremity is nonedematous. Continued skin flaking and mild redness to the anterior foot. Posterior foot at the heel area, left heel area does have a scabbed area. No drainage, no erythema is identified to either areas. IMPRESSION AND PLAN: 1. Chronic kidney disease. Laboratory work performed on February 26, 2023. 2. Hyperkalemia. Again, patient will have laboratory work performed on February 28, 2023. 3. Hypertension. The patient has fair blood pressure control. Lisinopril was held and metoprolol continues. 4. Diabetic foot ulcer. Continue to monitor for signs of infection. 5. Depression, on Cymbalta. The patient will follow Psychiatric Services as needed. 6. Constipation. The patient states bowels are moving appropriately now. DICTATED BY: MURALI Plaza JOB# [id number] cc:DR Eden Osman [facility] documented [facility] NoteHNO ID: [id number] Author: Rafy Steiner APRN.COMPUTER ASSEMBLER Service: ? Author Type: Nurse Specialist Type: Progress Notes Filed: 02/28/2023 8:29 AM Note Text: [facility] NOTE NAME: LATA PAPPAS NO.: [id number] DATE OF SERVICE: 02/26/2023 [facility] DATE OF : 1960 REASON FOR VISIT: The patient is a resident of [facility]. This is a skilled visit. Upon entering the room, found patient sleeping in bed. Patient's does not appear to be in distress or discomfort, is easily aroused. The patient states last night developed nausea and felt gaggy. The patient states no vomiting. The patient states usually has bowel movement every other day. The patient states has had no bowel movement for the past 2 days, although record review does show patient had a medium bowel movement yesterday. The patient has had infrequent bowel movements. The patient states has been eating well. States has been drinking fluids. Denies urinary symptoms. The patient states no pain at this time. Medications have been reviewed. PHYSICAL EXAMINATION: Temperature is 98.0, blood pressure 128/81, pulse 76, respirations 18, and pulse ox 98% on room air. Weight 228.2 pounds. Respiratory: Respirations are easy and labored with patient at rest. Lung sounds are clear. Heart: Heart rate and rhythm regular. Abdomen: Rounded and slightly firm. Bowel sounds hypoactive. Genitourinary: Todd catheter is intact. It is draining clear yellow urine. Extremities: Left lower extremity is nonedematous. Posterior foot does have a small scabbed area. No erythema is identified. Anterior portion of the left foot continues with a reddened area. The area is slightly raised and it is non-blanchable. IMPRESSION: 1. Chronic kidney disease. BMP to be performed on February 27, 2023. We will hold lisinopril x3 days for blood pressures and then continue twice daily. 2. Hyperkalemia. Again, patient will have laboratory work performed tomorrow. The patient is on low potassium diet. Losartan and potassium has been discontinued. 3. Diabetic foot ulcer. Continue to monitor area closely. 4. Hypertension. The patient has fair blood pressure control on metoprolol. Lisinopril will be held for 3 days. 5. Depression. The patient follows with psychiatric services as needed, on Cymbalta. 6. Constipation. Milk of Mag x1. DICTATED BY: MURALI Plaza/Judi JOB# [id number] cc: [facility]04-25-2023 History of Present illness Narrative* Rafy Steiner APRN.COMPUTER ASSEMBLER - 02/26/2023 12:00 AM EDT [facility] NOTE NAME: LATA PAPPAS NO.: [id number] DATE OF SERVICE: 02/26/2023 [facility] DATE OF : 1960 REASON FOR VISIT: The patient is a resident of [facility]. This is a skilled visit. Upon entering the room, found patient sleeping in bed. Patient's does not appear to be in distress or discomfort, is easily aroused. The patient states last night developed nausea and felt gaggy. The patient states no vomiting. The patient states usually has bowel movement every other day. The patient states has had no bowel movement for the past 2 days, although record review does show patient had a medium bowel movement yesterday. The patient has had infrequent bowel movements. The patient states has been eating well. States has been drinking fluids. Denies urinary symptoms. The patient states no pain at this time. Medications have been reviewed. PHYSICAL EXAMINATION: Temperature is 98.0, blood pressure 128/81, pulse 76, respirations 18, and pulse ox 98% on room air. Weight 228.2 pounds. Respiratory: Respirations are easy and labored with patient at rest. Lung sounds are clear. Heart: Heart rate and rhythm regular. Abdomen: Rounded and slightly firm. Bowel sounds hypoactive. Genitourinary: Todd catheter is intact. It is draining clear yellow urine. Extremities: Left lower extremity is nonedematous. Posterior foot does have a small scabbed area. No erythema is identified. Anterior portion of the left foot continues with a reddened area. The area is slightly raised and it is non-blanchable. IMPRESSION: 1. Chronic kidney disease. BMP to be performed on February 27, 2023. We will hold lisinopril x3 days for blood pressures and then continue twice daily. 2. Hyperkalemia. Again, patient will have laboratory work performed tomorrow. The patient is on lowpotassium diet. Losartan and potassium has been discontinued. 3. Diabetic foot ulcer. Continue to monitor area closely. 4. Hypertension. The patient has fair blood pressure control on metoprolol. Lisinopril will be held for 3 days. 5. Depression. The patient follows with psychiatric services as needed, on Cymbalta. 6. Constipation. Milk of Mag x1. DICTATED BY: MURALI Plaza JOB# [id number] cc: [facility] documented in this encounterC[facility] NoteHNO ID: [id number] Author: Rafy Steiner APRN.COMPUTER ASSEMBLER Service: ? Author Type: Nurse Specialist Type: Progress Notes Filed: 02/24/2023 6:49 PM Note Text: [facility] CORRECTION NOTE NAME: LATA PAPPAS NO.: [id number] DATE OF SERVICE: 02/22/2023 [facility] DATE OF : 1960 REASON FOR VISIT: The patient is a resident of [facility]. This is a skilled visit for chronic kidney disease and other medical concerns. Upon entering room, found the patient sleeping in semi-Smalls's position. The patient does not appear to be in distress or discomfort. Prior to patient's assessment, staff reported on-call had to be notified after the patient was having worsening renal functions and the patient was placed on IV fluids. The patient is difficult to arouse, but does arouse. The patient states had a poor night's sleep and this is why he is so sleepy. The patient states feels as though he is not drinking enough fluids. When asking the patient, how much he drinks, the patient does not answer. The patient states no pain, no flank pain. No cough, no shortness of breath. No fever, chills, or nausea. States he has no urinary symptoms. States bowels have been moving and has had a fairly good appetite. MEDICATIONS: Medications have been reviewed. PHYSICAL EXAMINATION: Temp 98.0, blood pressure 136/72, pulse 88, respirations 18, pulse ox 98% on room air. Weight 228.8 pounds. Respiratory: Respirations are easy and unlabored with the patient at rest. Lung sounds are clear. Heart: Heart rate and rhythm regular. Abdomen: Soft, nontender with palpation. Bowel sounds present x4. Genitourinary: Todd catheter is intact. It is draining a slightly cloudy, yellow urine. Extremities: Left lower extremity is mildly edematous to the anterior left foot and the left posterior foot is crusted over without evidence of infection, no redness, erythema, or abnormal drainage is identified. LAB DATA: Labs reviewed February 19, 2023. Metabolic panel abnormals - calcium 8.6, BUN 39, chloride 109, creatinine 1.93, glucose 153, all other labs within normal range. CBC with diff abnormals - hematocrit 26.7, hemoglobin 8.1, RBCs 2.62, MCV 101.9, MCHC 30.3, WBC 9.58, neutrophil absolute 6.34, lymphocyte percentage 8.7, monocyte absolute 1.14, mean platelet volume 9.2. Urinalysis with reflex February 19, 2023, - abnormals glucose trace, urine pH 8.50, protein 3+, nitrites +1, urine bacteria, occasional. Urine triple phosphate present IMPRESSION AND PLAN: 1. Chronic kidney disease. The patient has slightly worsening renal functions, creatinine increased from 1.57 to 1.93 and slightly increased BUN. GFR decreased at 36 from 45. The patient is receiving 1 L of fluids. The patient will have a renal ultrasound performed. Repeat BMP performed February 27, 2023. Continue encourage fluids. 2. Leukocytosis, improved from 11.38 to 9.59. No complaints of infectious process at this time. 3. Hyperkalemia. Potassium 4.9. 4. Dehydration. Continue to encourage fluids. 5. Diabetic foot ulcer. Continue monitor closely. No signs of infection at this time. 6. Hypertension. The patient has good blood pressure control. On metoprolol, lisinopril. 7. Depression. The patient does follow with psychiatric services. On Cymbalta. DICTATED BY: MURALI Plaza/Judi JOB# [id number] cc: [facility]04-18-2023 NoteHNO ID: [id number] Author: Rafy Steiner APRN.COMPUTER ASSEMBLER Service: ? Author Type: Nurse Specialist Type: Progress Notes Filed: 02/22/2023 7:09 AM Note Text: [facility] CORRECTION NOTE NAME: LATA PPAPAS NO.: [id number] DATE OF SERVICE: 02/19/2023 [facility] DATE OF : 1960 REASON FOR VISIT: The patient is resident of [facility]. This is a skilled visit for diabetic foot ulcer, and other medical concerns. The patient has been having ongoing evaluation after patient was found to have elevated potassium. The patient was also found to have an elevated white blood cell count. For patient assessment, found patient sitting in commons area. The patient does not appear to be in distress or discomfort. The patient has also been treated for dehydration. Reviewed laboratory work with patient. The patient states has no complaints of pain, cough, shortness of breath. No fever, chills, or nausea. has been eating well and bowels have been moving, but does have episodes of constipation. is trying to drink more fluids. does not believe he has any urinary symptoms. The patient does have a Todd catheter in. MEDICATIONS: Have been reviewed. PHYSICAL EXAMINATION: Temp 98.0, blood pressure 142/80, pulse 84, respirations 18, pulse ox 98% on room air and weight 228.8 pounds. Respirations are easy and unlabored with patient at rest. Lung sounds are clear. Heart rate and rhythm regular. Abdomen is soft, nontender with palpation. Bowel sounds present x4. Extremities: Left lower extremity open area of the posterior foot is crusted over. There is no swelling, erythema. No drainage identified. The anterior left foot rash-like area is fading. No erythema or abnormal drainage identified. Genitourinary: Todd catheter is intact. It is draining a slightly cloudy, light yellow urine. IMPRESSION: 1. Leukocytosis. Urinalysis will be performed. We will continue to monitor closely. 2. Hyperkalemia. Potassium 5.2, Kayexalate 15 g. We will continue, repeat and monitor. 3. Dehydration. BUN 37, creatinine 1.57. The patient did have a L of fluids. We will continue to push fluids. 4. Diabetic foot ulcer. Continue dressing changes as needed. The patient will continue to follow with wound services as needed. Wound appears to be improved. 5. Hypertension. The patient was changed from losartan to lisinopril. 6. Depression, on Cymbalta. 7. History of orthostatic hypotension. Again, continue to encourage fluids. DICTATED BY: MURALI Plaza/Judi JOB# [id number] cc: [facility]04-18-2023 History of Present illness Narrative* Rafy Steiner APRN.COMPUTER ASSEMBLER - 02/19/2023 12:00 AM EDT [facility] HOME NOTE NAME: LATA PAPPAS NO.: [id number] DATE OF SERVICE: 02/19/2023 [facility] DATE OF : 1960 REASON FOR VISIT: The patient is resident of [facility]. This is a skilled visit for diabetic foot ulcer, and other medical concerns. The patient has been having ongoing evaluation after patient was found to have elevated potassium. The patient was also found to have an elevated white blood cell count. For patient assessment, found patient sitting in commons area. The patient does not appear to be in distress or discomfort. The patient has also been treated for dehydration. Reviewed laboratory work with patient. The patient states has no complaints of pain, cough, shortness of breath. No fever, chills, or nausea. has been eating well and bowels have been moving, but does have episodes of constipation. is trying to drink more fluids. does not believe he has any urinary symptoms. The patient does have a Todd catheter in. MEDICATIONS: Have been reviewed. PHYSICAL EXAMINATION: Temp 98.0, blood pressure 142/80, pulse 84, respirations 18, pulse ox 98% on room air and weight 228.8 pounds. Respirations are easy and unlabored with patient at rest. Lung sounds are clear. Heart rate and rhythm regular. Abdomen is soft, nontender with palpation. Bowel sounds present x4. Extremities: Left lower extremity open area of the posterior foot is crusted over. There is no swelling, erythema. No drainage identified. The anterior left foot rash-like area is fading. No erythema or abnormal drainage identified. Genitourinary: Todd catheter is intact. It is draining a slightly cloudy, light yellow urine. IMPRESSION: 1. Leukocytosis. Urinalysis will be performed. We will continue to monitor closely. 2. Hyperkalemia. Potassium 5.2, Kayexalate 15 g. We will continue, repeat and monitor. 3. Dehydration. BUN 37, creatinine 1.57. The patient did have a L of fluids. We will continue to push fluids. 4. Diabetic foot ulcer. Continue dressing changes as needed. The patient will continue to follow with wound services as needed. Wound appears to be improved. 5. Hypertension. The patient was changed from losartan to lisinopril. 6. Depression, on Cymbalta. 7. History of orthostatic hypotension. Again, continue to encourage fluids. DICTATED BY: MURALI Plaza/Judi JOB# [id number] cc: [facility] NoteHNO ID: [id number] Author: Rafy Steiner APRN.WILLIE Service: ? Author Type: Nurse Specialist Type: Progress Notes Filed: 02/20/2023 7:19 AM Note Text: [facility] NOTE NAME: MIKAYLA PAPPASJOANNACELIA NO.: [id number] DATE OF SERVICE: 02/15/2023 [facility] DATE OF : 1960 REASON FOR VISIT: Patient is a resident of [facility]. This is a skilled visit for hyperkalemia, dehydration and other medical concerns. Patient had 1 L of fluids after patient was having increased BUN. Upon entering room found patient sleeping in bed. Patient does not appear to be in distress or discomfort and is easily aroused. Patient states, I feel all right . States he has no pain, no cough, no shortness of breath. No fever, chills or nausea. States he has been eating well and his bowels have been moving regularly and normally. States has been drinking fluids. Patient does have a Todd catheter. Patient denies urinary symptoms. Patient states no pain to the left lower extremity. MEDICATIONS: Reviewed. EXAMINATION: Temp 98.0, blood pressure 142/80, pulse 84, respirations 18, pulse ox 98% on room air. Weight 228.8 pounds. Respiratory: Respirations are easy and unlabored with patient at rest. Lung sounds clear. Heart: Heart rate and rhythm regular. Abdomen: Soft, nontender with palpation. Bowel sounds present x4. Extremities: Left lower extremity is nonedematous. The lateral heel does have a crusted over open area on top of the foot. Does have a reddened flat area with rough surface. No drainage. No erythema identified. Genitourinary: Todd catheter is intact. It is draining clear yellow urine. LAB DATA: Labs reviewed from February 12, 2023. Basic metabolic panel abnormals. BUN 46, chloride 109, glucose 132, potassium 6.0. CBC white blood cells 10.01, RBC 2.88, hemoglobin 9.0, hematocrit 28.3, MCV 98.3, MCHC 31.8, mean corpuscle volume 9.10. IMPRESSION AND PLAN: 1. Hyperkalemia. Kayexalate x1 given. Losartan has been discontinued. Lisinopril added 20 mg. Repeat potassium on February 16, 2023. 2. Dehydration. Patient will receive another liter of normal saline. Repeat labs on February 18, 2023. 3. Diabetic foot ulcer. Continue wound care. No evidence of infection at this time. 4. Hypertension. Losartan discontinued and replaced with lisinopril due to hyperkalemia, on metoprolol Continue monitor blood pressure closely. 5. Depression. Patient does follow with psychiatric services, on Cymbalta. 6. Orthostatic hypotension. Patient is receiving another liter of fluids. Position patient slowly. DICTATED BY: MURALI Plaza JOB# [id number] cc: [facility]04-11-2023 NoteHNO ID: [id number] Author: Rafy Steiner APRN.COMPUTER ASSEMBLER Service: ? Author Type: Nurse Specialist Type: Progress Notes Filed: 02/18/2023 7:39 AM Note Text: [facility] CORRECTION NOTE NAME: LATA PAPPAS NO.: [id number] DATE OF SERVICE: 02/12/2023 [facility] DATE OF : 1960 REASON FOR VISIT: The patient is a resident of [facility]. This is a skilled visit for diabetic foot ulcer and other medical concerns. Upon entering room, found the patient sleeping in semi-Smalls's position. The patient does not appear to be in distress or discomfort. The patient appears to be sleeping much most times when I entered the room. Staff does report the patient spends most of the time up and about and sleeps well in through the day and in through the afternoon. He does get up and staff has no concerns for him. The patient states he has no complaints at this time. No pain. No cough. No shortness of breath. No fever, chills, or nausea. States he has been eating well, and bowels have been moving. States has been drinking fluids. Denies urinary symptoms. MEDICATIONS: Medications have been reviewed. PHYSICAL EXAMINATION: Temp 98.0, blood pressure 142/80, pulse 84, respirations 18, pulse ox 98% on room air. Weight 228.6 pounds. Respiratory: Respirations are easy and unlabored with the patient at rest. Lung sounds are clear. Heart: Heart rate and rhythm regular. Abdomen: Soft, nontender with palpation. Bowel sounds present x4. Genitourinary: Todd catheter is intact. It is draining clear yellow urine. Extremities: The patient has right above-knee amputee. Left lower extremity lateral foot ulcer is crusted over. No redness, swelling, or abnormal drainage identified. There is a red, slightly raised area to the anterior left foot. No pain or itching is identified per the patient. IMPRESSION AND PLAN: 1. Diabetic foot ulcer. The patient is healing well. 2. Hypertension. The patient has fair blood pressure control. Continue antihypertensives. 3. Depression. On Cymbalta. The patient follows with Psychiatric services as needed. 4. Orthostatic hypotension. Reposition the patient slowly. Laboratory work to be performed February 13, 2023. DICTATED BY: MURALI Plaza JOB# [id number] cc: [facility]04-11-2023 History of Present illness Narrative* Rafy Steiner APRN.COMPUTER ASSEMBLER - 02/12/2023 12:00 AM EDT [facility] HOME NOTE NAME: LATA PAPPAS NO.: [id number] DATE OF SERVICE: 02/12/2023 [facility] DATE OF : 1960 REASON FOR VISIT: The patient is a resident of [facility]. This is a skilled visit for diabetic foot ulcer and other medical concerns. Upon entering room, found the patient sleeping in semi-Smalls's position. The patient does not appear to be in distress or discomfort. The patient appears to be sleeping much most times when I entered the room. Staff does report the patient spends most of the time up and about and sleeps well in through the day and in through the afternoon. He does get up and staff has no concerns for him. The patient states he has no complaints at this time. No pain. No cough. No shortness of breath. No fever,chills, or nausea. States he has been eating well, and bowels have been moving. States has been drinking fluids. Denies urinary symptoms. MEDICATIONS: Medications have been reviewed. PHYSICAL EXAMINATION: Temp 98.0, blood pressure 142/80, pulse 84, respirations 18, pulse ox 98% on room air. Weight 228.6 pounds. Respiratory: Respirations are easy and unlabored with the patient at rest. Lung sounds are clear. Heart: Heart rate and rhythm regular. Abdomen: Soft, nontender with palpation. Bowel sounds present x4. Genitourinary: Todd catheter is intact. It is draining clear yellow urine. Extremities: The patient has right above-knee amputee. Left lower extremity lateral foot ulcer is crusted over. No redness, swelling, or abnormal drainage identified. There is a red, slightlyraised area to the anterior left foot. No pain or itching is identified per the patient. IMPRESSION AND PLAN: 1. Diabetic foot ulcer. The patient is healing well. 2. Hypertension. The patient has fair blood pressure control. Continue antihypertensives. 3. Depression. On Cymbalta. The patient follows with Psychiatric services as needed. 4. Orthostatic hypotension. Reposition the patient slowly. Laboratory work to be performed February 13, 2023. DICTATED BY: MURALI Plaza JOB# [id number] cc: [facility]23 NoteHNO ID: [id number] Author: Rafy Steiner APRN.WILLIE Service: ? Author Type: Nurse Specialist Type: Progress Notes Filed: 02/10/2023 7:39 PM Note Text: [facility] CORRECTION NOTE NAME: LATA PAPPAS NO.: [id number] DATE OF SERVICE: 02/05/2023 [facility] DATE OF : 1960 REASON FOR VISIT: The patient is a resident of [facility]. This is a skilled visit for diabetic foot ulcer with hypertension and other medical concerns. Upon entering the room, found patient sleeping in low-smalls's position. The patient does not appear to be in distress or discomfort. The patient states has occasional pain to the left heel, but has no other complaints. Denies trauma to the left heel. States no complaints of pain at present. No cough, no shortness of breath. No fever, chills, or nausea. States he has been eating and drinking well. Denies bowel or bladder dysfunction. The patient does have a Todd catheter in with the assessment process. The patient is found not to be in his afternoon meal. The patient states just has not gotten to this as of yet. Staff reports no concerns with the patient at this time. MEDICATIONS: Have been reviewed. PHYSICAL EXAMINATION: Temp 97.4, blood pressure 141/71, pulse 85, respirations 18, pulse ox 98% on room air and weight 224 pounds. Respirations are easy and unlabored with patient at rest. Lung sounds are clear. Heart rate and rhythm regular. Abdomen is soft, no tenderness stated with palpation. Bowel sounds present x4. Genitourinary: Todd catheter is intact. It is draining a clear yellow urine. Extremities: Left lower extremity nonedematous. There is a red rash-like area noted to the anterior portion of the left foot. Left heel is noted to be soft and there is a scabbed over area with offloading left heel identified. No erythema. No abnormal drainage is identified. IMPRESSION: 1. Diabetic foot ulcer. Continue to offload left heel. Continue to monitor closely. Bactroban to the anterior left foot. If worsens, we will consider oral antibiotic. 2. Hypertension. The patient has fair blood pressure control. Continue antihypertensives. 3. Depression. The patient will follow with psychiatric services as needed, on Cymbalta. 4. Orthostatic hypotension. Position patient closely. The patient continues with elevated BUN and chloride is elevated. The patient has been ordered for push fluids. Labs reviewed, January 31, 2023. Basic metabolic panel: BUN 38, chloride 108, glucose 109. All other labs within normal range. DICTATED BY: MURALI Plaza JOB# [id number] cc:[facility]04-04-2023 History of Present illness Narrative* Rafy Steiner APRN.COMPUTER ASSEMBLER - 02/05/2023 12:00 AM EDT [facility] NOTE NAME: MIKAYLA PAPPASJOANNACELIA NO.: [id number] DATE OF SERVICE: 02/05/2023 [facility] DATE OF : 1960 REASON FOR VISIT: The patient is a resident of [facility]. This is a skilled visit for diabetic foot ulcer with hypertension and other medical concerns. Upon entering [facility], found patient sleeping in low- smalls's position. The patient does not appear to be in distress or discomfort. The patient states has occasional pain to the left heel, but has no other complaints. Denies trauma to the left heel. States no complaints of pain at present. No cough, no shortness of breath. No fever, chills, or nausea. States he has been eating and drinking well. Denies bowel or bladder dysfunction. The patient does have a Todd catheter in with the assessment process. The patient is found not to be in his afternoon meal. The patient states just has not gotten to this as of yet. Staff reports no concerns with the patient at this time. MEDICATIONS: Have been reviewed. PHYSICAL EXAMINATION: Temp 97.4, blood pressure 141/71, pulse 85, respirations 18, pulse ox 98% on room air and weight 224 pounds. Respirations are easy and unlabored with patient at rest. Lung sounds are clear. Heart rate and rhythm regular. Abdomen is soft, no tenderness stated with palpation. Bowel sounds present x4. Genitourinary: Todd catheter is intact. It is draining a clear yellow urine.Extremities: Left lower extremity nonedematous. There is a red rash-like area noted to the anteriorportion of the left foot. Left heel is noted to be soft and there is a scabbed over area with offloading left heel identified. No erythema. No abnormal drainage is identified. IMPRESSION: 1. Diabetic foot ulcer. Continue to offload left heel. Continue to monitor closely. Bactroban to the anterior left foot. If worsens, we will consider oral antibiotic. 2. Hypertension. The patient has fair blood pressure control. Continue antihypertensives. 3. Depression. The patient will follow with psychiatric services as needed, on Cymbalta. 4. Orthostatic hypotension. Position patient closely. The patient continues with elevated BUN and chloride is elevated. The patient has been ordered for push fluids. Labs reviewed, January 31, 2023. Basic metabolic panel: BUN 38, chloride 108, glucose 109. All other labs within normal range. DICTATED BY: MURALI Plaza/Judi JOB# [id number] cc: [facility] documented in this encounterC[facility]03-28-2023 NoteHNO ID: [id number] Author: Rafy Steiner APRN.COMPUTER ASSEMBLER Service: ? Author Type: Nurse Specialist Type: Progress Notes Filed: 01/31/2023 7:39 AM Note Text: [facility] CORRECTION NOTE NAME: LATA PAPPAS NO.: [id number] DATE OF SERVICE: 01/29/2023 [facility] DATE OF : 1960 REASON FOR VISIT: The patient is a resident of [facility]. This is a skilled visit for diabetic foot ulcer and other medical concerns. Upon entering the room, found patient resting in bed. The patient does not appear to be in distress or discomfort. The patient is noted to have left posterior foot Randy's foot board. The patient is easily aroused and educated patient on keeping the foot off the foot board to help the healing process of the left posterior foot and prevent future pressure sores. The patient states his only complaint is a lump to the left posterior thigh. The patient states no pain. The patient states no cough, shortness of breath. No fever, chills, or nausea. States he has been eating well. Bowels have been moving. States has been drinking fluids. The patient does have a Todd catheter. The patient denies urinary symptoms. Medications have been reviewed. PHYSICAL EXAMINATION: Temperature is 97.4, blood pressure 141/71, pulse 85, respirations 18, and pulse ox 98% on room air. Weight 224 pounds. Respiratory: Respirations are easy and unlabored with patient at rest. Lung sounds are clear. Heart: Heart rate and rhythm regular. Abdomen: Soft, nontender to palpation. Bowel sounds present x4. Genitourinary: Todd catheter is intact and it is draining slightly cloudy, yellow urine. Extremities: Left lower extremity is nonedematous. Left posterior foot, open area is crusted over. No erythema or abnormal drainage. No foul odors are identified. Skin: Left posterior thigh, there is a small resolving folliculitis noticed. The area is red with a small scab and appears to have small amount of light brown bruising around the wound. No erythema or abnormal drainage is identified. IMPRESSION: 1. Diabetic foot ulcer. Last Accu-Chek was 87. Continue dressing changes. Keep the left posterior foot offloaded from foot rail. 2. Hypertension. The patient has fair blood pressure control. Continue antihypertensives. 3. Depression. The patient appears to be in fairly good spirits, on Cymbalta and Ativan. Follow with Psychiatric Services as needed. 4. Orthostatic vital signs. Continue to encourage fluids. Reposition patient slowly. 5. Folliculitis. Cleanse area with normal saline, dried completely. Apply bacitracin and dry sterile dressing twice daily until resolved. DICTATED BY: MURALI Plaza/Judi JOB# [id number] cc: [facility]03-21-2023 NoteHNO ID: [id number] Author: Rafy Steiner APRN.COMPUTER ASSEMBLER Service: ? Author Type: Nurse Specialist Type: Progress Notes Filed: 01/24/2023 8:09 AM Note Text: [facility] CORRECTION NOTE NAME: LATA PAPPAS NO.: [id number] DATE OF SERVICE: 01/22/2023 [facility] DATE OF : 1960 REASON FOR VISIT: The patient is a resident of [facility]. This is a skilled visit for diabetic foot without foot ulcer, subsequent encounter and other medical concerns. Upon entering the room, found patient calm, alert, sitting up in bed, watching television. The patient does not appear to be in distress or discomfort. The patient states no complaints at this time. The patient was evaluated late last week for near syncopal episode. The patient states has had no further episodes. The patient states he has no pain, no cough, no shortness of breath. No fever, chills, or nausea. States appetite is good and bowels have been moving. States has been drinking fluids. Denies urinary symptoms. MEDICATIONS: Have been reviewed. PHYSICAL EXAMINATION: Temp 97.4, blood pressure 141/71, pulse 85, respirations 18, pulse ox 98% on room air and weight 224 pounds. Respirations are easy and unlabored with patient at rest. Lung sounds are clear. Heart rate and rhythm regular. Abdomen is soft, nontender with palpation. Bowel sounds present x4. Extremities: Left lower extremity nonedematous. Dressing, dry and intact. No erythema or abnormal drainage is identified. Genitourinary: Todd catheter is intact. It is draining a clear, pale yellow urine. LABORATORY DATA: Reviewed January 18, 2023. Complete blood count: Abnormals, RBC 2.72, hemoglobin 8.6, hematocrit 25.9, MCV 95.2, and MPV 9.3. All other labs within normal range. Basic metabolic panel: BUN 32, potassium 5.3. All other labs within normal range. IMPRESSION: 1. Diabetic foot with ulcer, currently on Lantus, Novolog and metformin. Continue dressing change as ordered. Continue Wound Services. 2. Hyperkalemia. Potassium 5.3, and multivitamins discontinued. Placed on low potassium diet. Repeat labs tomorrow. 3. Hypertension. Blood pressure 141/71 on losartan and metoprolol. 4. Depression. No behavioral issues have been identified. The patient follows with Psychiatric Services as needed on Cymbalta and Ativan as needed. 5. Orthostatic hypotension. The patient is taking fluids. Continue position. The patient carefully slowly went up and about. DICTATED BY: MURALI Plaza/Judi JOB# [id number] cc: [facility] History of Present illness Narrative* Rafy Steiner APRN.COMPUTER ASSEMBLER - 01/22/2023 12:00 AM EDT [facility] NOTE NAME: LATA PAPPAS NO.: [id number] DATE OF SERVICE: 01/22/2023 [facility] DATE OF : 1960 REASON FOR VISIT: The patient is a resident of [facility]. This is a skilled visit for diabetic foot without foot ulcer, subsequent encounter and other medical concerns. Upon entering the room, found patient calm, alert, sitting up in bed, watching television. The patient does not appear to be in distress or discomfort. The patient states no complaints at this time. The patient was evaluated late last week for near syncopal episode. The patient states has had no further episodes. The patient states he has no pain, no cough, no shortness of breath. No fever, chills, or nausea. States appetite is good and bowels have been moving. States has been drinking fluids. Denies urinary symptoms. MEDICATIONS: Have been reviewed. PHYSICAL EXAMINATION: Temp 97.4, blood pressure 141/71, pulse 85, respirations 18, pulse ox 98% on room air and weight 224 pounds. Respirations are easy and unlabored with patient at rest. Lung sounds are clear. Heart rate and rhythm regular. Abdomen is soft, nontender with palpation. Bowel sounds present x4. Extremities: Left lower extremity nonedematous. Dressing, dry and intact. No erythema orabnormal drainage is identified. Genitourinary: Todd catheter is intact. It is draining a clear, pale yellow urine. LABORATORY DATA: Reviewed January 18, 2023. Complete blood count: Abnormals, RBC 2.72, hemoglobin 8.6, hematocrit 25.9, MCV 95.2, and MPV 9.3. All other labs within normal range. Basic metabolic panel: BUN 32, potassium 5.3. All other labs within normal range. IMPRESSION: 1. Diabetic foot with ulcer, currently on Lantus, Novolog and metformin. Continue dressing change as ordered. Continue Wound Services. 2. Hyperkalemia. Potassium 5.3, and multivitamins discontinued. Placed on low potassium diet. Repeat labs tomorrow. 3. Hypertension. Blood pressure 141/71 on losartan and metoprolol. 4. Depression. No behavioral issues have been identified. The patient follows with Psychiatric Services as needed on Cymbalta and Ativan as needed. 5. Orthostatic hypotension. The patient is taking fluids. Continue position. The patient carefully slowly went up and about. DICTATED BY: MURALI Plaza JOB# [id number] cc:DR [facility] documented in this encounterC[facility]innati [facility]23 NoteHNO ID: [id number] Author: Rafy Steiner APRN.COMPUTER ASSEMBLER Service: ? Author Type: Nurse Specialist Type: Progress Notes Filed: 01/21/2023 7:09 AM Note Text: [facility] CORRECTION NOTE NAME: LATA PAPPAS NO.: [id number] DATE OF SERVICE: 01/17/2023 [facility] DATE OF : 1960 REASON FOR VISIT: The patient is a resident of [facility]. This is an acute visit for near syncopal episode. Staff reported the patient was up with therapy when he developed blank stare and was not acting right. Sat back down, at that time the patient's blood pressure was in the 170s/70s. The staff did do an Accu-Chek 138. The patient was brought back to his room and blood pressure returned to a more normalized state of 124/76, heart rate 66, and pulse ox of 95%. Per patient assessment, found the patient sitting in wheelchair watching television in the community room. The patient does not appear to be in distress or discomfort. When asking the patient what happened, the patient can recall all the events that happened. States he was up walking with therapy services when he developed slight lightheadedness. The patient states he did sit down. He remembers all parties talking to him. The patient states did he not have chest pain, did not become short of breath. The patient denied unilateral weakness, and continues denying any abnormal neurologic symptoms. The patient states he has been eating and drinking. The patient is noted to have quite dilute urine in Todd urine bag. The patient states he only drinks 2 glasses of water a day. MEDICATIONS: Have been reviewed. PHYSICAL EXAMINATION: Temperature 97.4, blood pressure 142/81, pulse 85, respirations 18, pulse ox 98% on room air, weight 224 pounds. Respiratory: Respirations are easy and unlabored with patient at rest. Lung sounds are clear. Heart: Heart rate and rhythm regular. Abdomen: Soft and nontender with palpation. Bowel sounds present x4. Extremities: Left lower extremity dressing is dry and intact and fractured. He was noted to be on right lower extremity. The patient is right above the knee amputee. Genitourinary: Todd catheter is intact and is draining a pale yellow, clear urine. IMPRESSION AND PLAN: 1. Syncopal episode. The patient has no complaints at this time. The patient will have orthostatic vital signs performed, lab work to be performed tomorrow. Continue to monitor patient closely, continue to monitor neurologic status. DICTATED BY: MURALI Plaza/Judi JOB# [id number] cc: [facility]03-16-2023 History of Present illness Narrative* Rafy Steiner APRN.COMPUTER ASSEMBLER - 01/17/2023 12:00 AM EDT [facility] NOTE NAME: LATA PAPPAS NO.: [id number] DATE OF SERVICE: 01/17/2023 [facility] DATE OF : 1960 REASON FOR VISIT: The patient is a resident of [facility]. This is an acute visit for near syncopal episode. Staff reported the patient was up with therapy when he developed blank stare and was not acting right. Sat back down, at that time the patient's blood pressure was in the 170s/70s. The staff did do an Accu-Chek 138. The patient was brought back to his room and blood pressure returned to a more normalized state of 124/76, heart rate 66, and pulse ox of 95%. Per patient assessment, found the patient sitting in wheelchair watching television in the community room. The patient does not appear to be in distress or discomfort. When asking the patient what happened, the patient can recall all the events that happened. States he was up walking with therapy services when he developed slight lightheadedness. The patient states he did sit down. He remembers all parties talking to him. The patient states did he not have chest pain, did not become short of breath. The patient denied unilateral weakness, and continues denying any abnormal neurologic symptoms. The patient states he has been eating and drinking. The patient is noted to have quite dilute urine in Todd urine bag. The patient states he only drinks 2 glasses of water a day. MEDICATIONS: Have been reviewed. PHYSICAL EXAMINATION: Temperature 97.4, blood pressure 142/81, pulse 85, respirations 18, pulse ox 98% on room air, weight 224 pounds. Respiratory: Respirations are easy and unlabored with patient atrest. Lung sounds are clear. Heart: Heart rate and rhythm regular. Abdomen: Soft and nontender withpalpation. Bowel sounds present x4. Extremities: Left lower extremity dressing is dry and intact and fractured. He was noted to be on right lower extremity. The patient is right above the knee amputee. Genitourinary: Todd catheter is intact and is draining a pale yellow, clear urine. IMPRESSION AND PLAN: 1. Syncopal episode. The patient has no complaints at this time. The patient will have orthostatic vital signs performed, lab work to be performed tomorrow. Continue to monitor patient closely, continue to monitor neurologic status. DICTATED BY: MURALI Plaza/Judi JOB# [id number] cc: [facility] documented in this encounterCincinnati [facility]03-14-2023 NoteHNO ID: [id number] Author: Rafy Steiner APRN.COMPUTER ASSEMBLER Service: ? Author Type: Nurse Specialist Type: Progress Notes Filed: 01/17/2023 7:59 AM Note Text: [facility] CORRECTION NOTE NAME: LATA PAPPAS NO.: [id number] DATE OF SERVICE: 01/15/2023 [facility] DATE OF : 1960 REASON FOR VISIT: The patient is a resident of [facility]. This is a skilled visit for diabetic foot ulcer and other medical concerns. Upon entering the room I found the patient sleeping in supine position. The patient does not appear to be in distress or discomfort. The patient is easily aroused. The patient states he had a poor night's sleep. The patient states he did have a sleep study at another facility, but they never provide sleep apnea machine. The patient states he would like sleep apnea study performed for possible CPAP. The patient also states he is due for injections to the eyes and would like to see a retinologist, Dr. Shepherd in [place]. The patient states no pain, no cough, no shortness of breath. No fever, chills, or nausea. States he has been eating and drinking well. States bowels are moving. No urinary symptoms. MEDICATIONS: Have been reviewed. PHYSICAL EXAMINATION: Temp 97.4, blood pressure 142/81, pulse 85, respirations 18, pulse ox 98% on room air, weight 224 pounds. Respiratory: Respirations are easy and unlabored with patient at rest. Lung sounds are clear. Heart: Heart rate and rhythm regular. Abdomen: Soft and nontender with palpation. Bowel sounds present x4. Extremities: Nonedematous to the left lower extremity. Right lower extremity, the patient is a right above-knee amputee. Dressings to the right foot wound, left heel improved wound and is closing, left distal posterior foot wound is healing, neither of which without redness, swelling, erythema, or abnormal drainage. IMPRESSION AND PLAN: 1. Diabetic foot ulcer, continue dressing changes as ordered. 2. Diabetes, on metformin, Lantus, and NovoLog. 3. Neuropathy. Does have [place] for pain, does take gabapentin. 4. Cerebrovascular disease, late effect cerebral infarction, continue to monitor neurologic status. The patient appears baseline from previous. 5. Orthostatic hypotension. Continue to encourage fluids, reposition patient slowly. 6. Chronic kidney disease, continue to encourage fluids. 7. Generalized weakness, continue therapy services. DICTATED BY: MURALI Plaza JOB# [id number] cc:DR Eden [facility]03-14-2023 History of Present illness Narrative* Rafy Steiner APRN.COMPUTER ASSEMBLER - 01/15/2023 12:00 AM EDT [facility] NOTE NAME: MIKAYLA PAPPASCHERELLE NO.: [id number] DATE OF SERVICE: 01/15/2023 [facility] DATE OF : 1960 REASON FOR VISIT: The patient is a resident of [facility]. This is a skilled visit for diabetic foot ulcer and other medical concerns. Upon entering the room I found the patient sleeping in supine position. The patient does not appear to be in distress or discomfort. The patient is easily aroused. The patient states he had a poor night's sleep. The patient states he did have a sleep study at another facility, but they never provide sleep apnea machine. The patient states he would like sleep apnea study performed for possible CPAP. The patient also states he is duefor injections to the eyes and would like to see a retinologist, Dr. Shepherd in [place]. The patient states no pain, no cough, no shortness of breath. No fever, chills, or nausea. States he has been eating and drinking well. States bowels are moving. No urinary symptoms. MEDICATIONS: Have been reviewed. PHYSICAL EXAMINATION: Temp 97.4, blood pressure 142/81, pulse 85, respirations 18, pulse ox 98% on room air, weight 224 pounds. Respiratory: Respirations are easy and unlabored with patient at rest. Lung sounds are clear. Heart: Heart rate and rhythm regular. Abdomen: Soft and nontender with palpation. Bowel sounds present x4. Extremities: Nonedematous to the left lower extremity. Right lower extremity, the patient is a right above-knee amputee. Dressings to the right foot wound, left heel improved wound and is closing, left distal posterior foot wound is healing, neither of which without redness, swelling, erythema, or abnormal drainage. IMPRESSION AND PLAN: 1. Diabetic foot ulcer, continue dressing changes as ordered. 2. Diabetes, on metformin, Lantus, and NovoLog. 3. Neuropathy. Does have [place] for pain, does take gabapentin. 4. Cerebrovascular disease, late effect cerebral infarction, continue to monitor neurologic status. The patient appears baseline from previous. 5. Orthostatic hypotension. Continue to encourage fluids, reposition patient slowly. 6. Chronic kidney disease, continue to encourage fluids. 7. Generalized weakness, continue therapy services. DICTATED BY: MURALI Plaza JOB# [id number] cc: [facility] documented in this encounterC[facility]innati [facility]03-09-2023 NoteHNO ID: [id number] Author: Rafy Steiner APRN.COMPUTER ASSEMBLER Service: ? Author Type: Nurse Specialist Type: Progress Notes Filed: 01/14/2023 7:29 AM Note Text: [facility] CORRECTION NOTE NAME: LATA PAPPAS NO.: [id number] DATE OF SERVICE: 01/10/2023 [facility] DATE OF : 1960 REASON FOR VISIT: The patient is a resident of [facility]. This is a skilled visit for diabetes with diabetic foot ulcer and other medical concerns. For the patient's assessment, found the patient in dining room, watching television. The patient is noted to be sitting in wheelchair. The patient does not appear to be in distress or discomfort. The patient states overall feels very good. The patient states today did have 1 episode of vomiting, but states that he feels as though he went to therapy right after eating and feels as though this made him vomit. The patient states he has no nausea. The patient states no pain. No cough, shortness of breath. No fever, chills. States usually appetite is very good. Bowels have been moving. States has been drinking fluids. The patient does have a Todd catheter and states he has no urinary symptoms. MEDICATIONS: Medications have been reviewed. PHYSICAL EXAMINATION: Temp 97.4, blood pressure 142/81, pulse 85, respirations 18, pulse ox 98% on room air. Weight 224 pounds. Respiratory: Respirations are easy and unlabored with the patient at rest. Lung sounds clear. Heart: Heart rate and rhythm regular. Abdomen: Soft, nontender with palpation. Bowel sounds present x4. Extremities: Left lower extremity nonedematous. Dressing is dry and intact. Wound to the left heel and left posterior foot is without erythema and abnormal drainage, no foul odors are identified and postoperative shoe is noted to be intact. Right lower extremity, the patient is right cglpb-sae-qdgt amputee. DATA: Labs reviewed January 02, 2023. Hemoglobin A1c 6.7, BUN 38, glucose 173, all other labs within normal range. On January 07, 2023, complete blood count abnormals - white blood cell 9.27, RBC 2.87, hemoglobin 8.9, hematocrit 27.2, MCV 24.8, all other labs within normal range. IMPRESSION AND PLAN: 1. Diabetes. Hemoglobin A1c 6.7, glucose 173. The patient will have Accu-Cheks a.c. and at bedtime. Continue on Lantus, metformin. We will continue to monitor closely. 2. Diabetic foot ulcer with neuropathy. Continue with dressing changes. Continue monitor wound closely. No infectious process is identified at this time. The patient is currently on gabapentin. 3. Cerebrovascular disease late effect cerebral infarction. Continue to monitor neurologic status. 4. Hypertension with orthostatic hypotension. Currently on losartan, metoprolol. Position the patient slowly and continue to encourage fluids. 5. Chronic kidney disease. GFR 39, creatinine 1.77. 6. Generalized weakness. The patient is working with therapy services. DICTATED BY: MURALI Plaza/Judi JOB# [id number] cc:DR [facility] NoteHNO ID: [id number] Author: Lauren Chowdary Service: ? Author Type: Physician Type: Progress Notes Filed: 01/02/2023 6:59 PM Note Text: [facility] NOTE NAME: LATA PAPPAS NO.: [id number] DATE OF SERVICE: 01/01/2023 [facility] DATE OF : 1960 NEW PATIENT HISTORY AND PHYSICAL HISTORY OF PRESENT ILLNESS: Patient is a 62-year-old male, who is transferred to from [facility] facility with a diagnoses of diabetes mellitus type 2 with diabetic left heel ulcer, hypertension with history of orthostatic hypotension, posttraumatic stress disorder, right bundle-branch block, previous CVA, Amy-Parkinson White syndrome with previous radioablation therapy, peripheral vascular disease, previous right rcqvo-lal-ieie amputation, history of aggressive behavior and homicidal ideation, chronic kidney disease, previous COVID infection, major depressive disorder, chronic anemia, bipolar disorder, obesity and generalized weakness. He is currently resting in bed. He is alert and responsive. He apparently had been at the other facility for the past 6 months. He currently denies any pain or discomfort. He has had no change in his vision or hearing or actual syncope. No documented history of COPD, asthma, bronchitis or recent pneumonia. He has been treated for COVID before. He denies smoking. He does not have any documented cardiac history. No chest pain, angina, previous heart attacks, heart surgeries or pacemakers. However, he does have history of Qghwx-Auonymxek-Jybjr and did undergo a previous radioablation therapy, also history of right bundle-branch block. He does have hypertension. His appetite has been good. No bleeding ulcers, hepatitis or melena. He has had a previous stroke, which reportedly did not leave him with any significant residual. No seizures. He is diabetic type 2 with a left diabetic heel ulcer. He is also status post previous right yjpqo-gef-vubp amputation. He does have peripheral arterial disease. FAMILY HISTORY: Significant for hypertension. SOCIAL/FUNCTIONAL HISTORY: He denies smoking or alcohol abuse. He previously worked in [employer]. MEDICATIONS: Ativan p.r.n., Colace b.i.d., cyanocobalamin 500 mcg daily, Cymbalta 90 mg daily, ergocalciferol 54180 units weekly, Lantus insulin 65 units subcu q.a.m., Lipitor 80 mg at bedtime, melatonin at h.s., metformin 500 mg b.i.d., metoprolol succinate 100 mg daily, multivitamin daily, NovoLog insulin 6 units subcu before meals and saline nasal spray. ALLERGIES: DEPAKOTE, DILANTIN. EXAMINATION: Afebrile, vital signs stable. He is in no distress. He appears chronically ill. HEENT: Extraocular movements intact. Sclerae nonicteric. Ears intact. Lungs: Clear. Heart: Regular. Abdomen: Soft, overweight, nontender. Extremities with no significant edema. He does have dressing to his left foot and heel that is clean and dry. He is status post BKA. He does have generalized weakness. IMPRESSION: 1. Diabetes mellitus type 2 with diabetic left heel ulcer and also diabetic neuropathy. We will maintain current diabetic regimen. Monitor blood sugars. We will check hemoglobin A1c level. Continue with current wound care, which he reports has been improving. 2. Previous cerebrovascular accident-will will monitor closely for signs of recurrence or extension. He currently is not receiving any antiplatelet therapy. I will begin aspirin 81 mg daily. 3. Hypertension with history of orthostatic hypotension-continue to monitor blood pressures and make adjustments as needed. 4. History of bipolar disorder/depression with posttraumatic stress disorder and previous homicidal ideation. We will continue to monitor his mood and behavior closely. Maintain current treatment. He will follow closely by psychiatric sec services. 5. Chronic kidney disease-we will monitor his renal function and fluid balance closely. Once again we will obtain follow up BMP. 6. Functional assessment-he does have generalized weakness. He will be receiving rehab services for overall strengthening and conditioning. Overall condition and prognosis is somewhat guarded. We will obtain follow up labs including CBC, BMP and hemoglobin A1c level. Patient is also requesting that his gabapentin be resumed which we will reorder. He may require long-term care. DICTATED BY: MD MIGUEL Balderas/Judi JOB# [id number] cc: [facility]02-28-2023 History of Present illness Narrative* Lauren Chowdary - 01/01/2023 12:00 AM EST [facility] NOTE NAME: LATA PAPPAS NO.: [id number] DATE OF SERVICE: 01/01/2023 [facility] DATE OF : 1960 NEW PATIENT HISTORY AND PHYSICAL HISTORY OF PRESENT ILLNESS: Patient is a 62-year-old male, who is transferred to us from [facility] facility with a diagnoses of diabetes mellitus type 2 with diabetic left heel ulcer, hypertension with history of orthostatic hypotension, posttraumatic stress disorder, right bundle-branch block, previous CVA, Amy-Parkinson White syndrome with previous radioablation therapy, peripheral vascular disease, previous right bcddz-oxy-meua amputation, history of aggressive behavior and homicidal ideation, chronic kidney disease, previous COVID infection, major depressive disorder,chronic anemia, bipolar disorder, obesity and generalized weakness. He is currently resting in bed.He is alert and responsive. He apparently had been at the other facility for the past 6 months. He currently denies any pain or discomfort. He has had no change in his vision or hearing or actual syncope. No documented history of COPD, asthma, bronchitis or recent pneumonia. He has been treated forCOVID before. He denies smoking. He does not have any documented cardiac history. No chest pain, angina, previous heart attacks, heart surgeries or pacemakers. However, he does have history of Viegm-Tssqoqvip-Etzrh and did undergo a previous radioablation therapy, also history of right bundle-branch block. He does have hypertension. His appetite has been good. No bleeding ulcers, hepatitis or melena. He has had a previous stroke, which reportedly did not leave him with any significant residual.No seizures. He is diabetic type 2 with a left diabetic heel ulcer. He is also status post previousright ftldb-cku-lkjq amputation. He does have peripheral arterial disease. FAMILY HISTORY: Significant for hypertension. SOCIAL/FUNCTIONAL HISTORY: He denies smoking or alcohol abuse. He previously worked in [employer]. MEDICATIONS: Ativan p.r.n., Colace b.i.d., cyanocobalamin 500 mcg daily, Cymbalta 90 mg daily, ergocalciferol 42058 units weekly, Lantus insulin 65 units subcu q.a.m., Lipitor 80 mg at bedtime, melatonin at h.s., metformin 500 mg b.i.d., metoprolol succinate 100 mg daily, multivitamin daily, NovoLog insulin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 foam 4x4. Leg wrapped withKerlix and SPENCER wrap. Patient tolerated well. * Farideh Bhakta RN - 05/03/2022 11:10 AM EDT Patient sitting up in bed working with physical therapy. Patient complains about pain near his todd catheter. 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 Site is red and foul-smelling purulent drainage noted coming from urethra. documented in this [facility]08-26-2022 Hospital course Narrative* Zachery Coombs MD - 06/29/2022 5:36 PM EDT Discharge Diagnosis 1. Posttraumatic stress disorder in addition to depressive disorder with reported homicidal ideation and aggressive behavior on admission but not anymore. Seen and evaluated by the psychiatrist. Doing well since he was started on Depakote. 2. Wound at the dorsal aspect of the foot. Continue current care. Reported on admission. Most likely secondary to reaction to foot strap at the assisted 3. Type 2 diabetes mellitus. Continue monitor blood sugar numbers on regular basis with insulin sliding scale. Has been well controlled 4. Urinary retention with chronic Todd catheter. To be exchanged every 4 weeks. It was done less than 3 weeks ago. 5. Occipital neuralgia. Already seen by the neurologist. Continue current management Hospital Course The patient was admitted because of behavioral disturbances, he is known to have posttraumatic stress disorder. Reported suicidal ideation at the arrival. Seen and evaluated by the psychiatrist. Started on Depakote for behavioral problem. 500 mg twice a day. He has been doing relatively well since.No other significant problem was identified except chronic urinary retention with Todd catheter. Th e Todd catheter should be exchanged every 4 weeks. To be discharged to [facility] for inpatient rehabilitation. Test Results Pending At Discharge Pending Labs Order Current Status [facility] COVID PANEL (BIOFIRE) In process Pertinent Physical Exam At Time of Discharge Physical Exam General Appearance: awake, alert, oriented, in no acute distress Skin: skin color, texture, turgor are normal, chronic skin lesion at the dorsal aspect of the left foot Head/Face: NCAT Eyes: Pupils- PERRL Ears: External- normal and Hearing- bilateral- normal to conversation Mouth/Throat: Mucosa moist, no lesions Neck: neck- supple, no mass, non-tender Lungs: Normal expansion. Clear to auscultation. No rales, rhonchi, or wheezing. Heart: Heart sounds are normal. Regular rate and rhythm without murmur, gallop or rub. Abdomen: Soft, non-tender, normal bowel sounds Musculoskeletal: Strength normal, no cyanosis, clubbing or edema, right below- knee amputation Neurologic: Alert and oriented x 3, strength and sensation grossly normal Issues Requiring Follow-Up 1. Monitor patient's progress 2. Monitor blood sugar numbers Outpatient Follow-Up No future appointments. Time Discharging 30 minutes Your medication list START taking these medications Instructions Last Dose Given Next Dose Due divalproex 500 mg 24 hr tablet Commonly known as: Depakote ER Start taking on: June 30, 2022 Take 1 tablet (500 mg total) by mouth 1 (one) time each day. Do not crush, chew, or split. CONTINUE taking these medications Instructions Last Dose Given Next Dose Due acetaminophen 325 mg tablet Commonly known as: Tylenol amLODIPine 10 mg tablet Commonly known as: Norvasc aspirin 81 mg EC tablet atorvastatin 80 mg tablet Commonly known as: Lipitor cyanocobalamin 500 mcg tablet Commonly known as: Vitamin B-12 diclofenac 1 % topical gel Commonly known as: Voltaren docusate sodium 100 mg capsule Commonly known as: Colace DULoxetine [address] capsule Commonly known as: Cymbalta ergocalciferol 1,250 mcg (50,000 unit) capsule Commonly known as: Vitamin D-2 ferrous sulfate 325 mg (65 mg iron) tablet Fleet Enema 19-7 gram/118 mL enema enema Generic drug: sodium phosphates flurbiprofen 0.03 % ophthalmic solution Commonly known as: Ocufen gabapentin 300 mg capsule Commonly known as: Neurontin Take 1 capsule (300 mg total) by mouth every night. gabapentin 100 mg capsule Commonly known as: Neurontin Take 1 capsule (100 mg total) by mouth 1 (one) time each day. glipiZIDE XL 10 mg 24 hr tablet Commonly known as: Glucotrol XL glycerin suppository Commonly known as: Adult guaiFENesin 600 mg 12 hr tablet Commonly known as: Mucinex hydrocortisone 1 % cream insulin glargine 100 unit/mL injection Commonly known as: Lantus,Semglee lidocaine 5 % patch Commonly known as: Lidoderm loperamide 2 mg capsule Commonly known as: Imodium magnesium hydroxide 400 mg/5 mL suspension Commonly known as: Milk of Magnesia melatonin 5 mg tablet NovoLOG U-100 Insulin aspart 100 unit/mL injection Generic drug: insulin aspart ondansetron ODT 4 mg disintegrating tablet Commonly known as: Zofran ODT oxybutynin XL 10 mg 24 hr tablet Commonly known as: Ditropan-XL oxyCODONE-acetaminophen 5-325 mg tablet Commonly known as: Percocet peg 457-xlvstucmsokp-zegortao 1-0.2-0.2 % drops polyethylene glycol 17 gram/dose powder Commonly known as: Glycolax SITagliptin 100 mg tablet Commonly known as: Januvia tiZANidine 2 mg tablet Commonly known as: Zanaflex Where to Get Your Medications These medications were sent to [facility] [id number] - [facility] [place] - [address] [place] [address] divalproex 500 mg 24 hr tablet [facility] Miscellaneous Notes* Case Management - CLAY Valle - 06/29/2022 3:09 PM EDT [facility] indicates that she can see in their system that there is an openpending request for authorization and that the documentation was uploaded yesterday on 06/28/22. PEE notes that the facility indicates the request for authorization was initiated much earlier than that (06/21 or 06/22) and that PEE has had requests for updates per request of the insurer multiple times in that span. She will reach out to the team working on the authorization to determine if there is anything else that is needed, will update this SW if she learns anything new. * Case Management - CLAY Valle - 06/29/2022 2:52 PM EDT PEE attempted to reach Narcisa at [facility] again, no answer/vm. PEE updated Lanette at [facility]. * Case Management - CLAY Valle - 06/29/2022 12:26 PM EDT PEE reached out to [facility] to determine if patient has a adult day care worker assigned as precert wasinitiated on 06/21/22 and no determination has been rendered as of 06/29/22. Patient does have a carecoordinator (Narcisa Kitchen [phone]). PEE left for Narcisa to request return call to assist in facilit ating getting patient to the next appropriate level of care. * Case Management - Millicent Rashid RN - 06/28/2022 7:04 PM EDT R1 RETURNED OU RECOMMENDATION * Case Management - Tonya Calabrese RN - 06/28/2022 3:10 PM EDT Resubmitted to for review * Case Management - CLAY Valle - 06/28/2022 8:28 AM EDT PEE spoke with Lanette at [facility] who continues to work to obtain insurance authorization to admit patient. PEE will re-send requested information. PEE did confirm that this patient has been continually hospitalized in an acute care hospital for the past 56 days and thus has only one Historyand Physical which the attending physician did amend with an update last week. The patient has had a new physician progress note each day for the past 56 days, thus no additional H&P would be completed as is standard practice for a patient who is hospitalized. [facility] and is awaiting insurance authorization to return to a different SNF setting due to disruption in placement. He has continued to work with PT/OT throughout his hospital stay, would benefit from further therapy to work toward independence in transfers and wheelchair mobility. His needs currently cannot be met in a community setting as he requires significant hands on assist to transferto a chair/wheelchair and in/out of bed. He does have a prosthetic leg but has not yet progressed to be able to use this successfully. Patient is medically ready for discharge, only awaiting insurance authorization to transition to SNF level care. * Case Management - CLAY Valle - 06/27/2022 12:04 PM EDT PEE faxed the last 24 hours of notes to [facility] to assist in facilitating precert per her request. * Case Management - Tonya Calabrese RN - 06/26/2022 3:36 PM EDT r1 recommends ou * Case Management - CLAY Valle - 06/26/2022 2:07 PM EDT PEE spoke with Lanette at [facility]. They are still awaiting insurance determination, just wanted to confirm plan is still to dc to them once approved. SW confirmed this is the plan. * Case Management - Tonya Calabrese RN - 06/26/2022 1:08 PM EDT Resubmitted to r1 * Case Management - CLAY Valle - 06/26/2022 10:39 AM EDT PEE received message from [facility]. No determination as yet from [facility]. * Care Plan - Aleena Scott RN - 06/24/2022 8:22 PM EDT Mikayla Pappas 510/510-2 How does patient get up? 2 assist to chair with walker Oxygen Needs: room air Discharging today? no Identify possible barriers to meeting goals/advancing plan of care: End of Shift Summary: Waiting pre-cert * Care Plan - Pat Dominguez RN - 06/24/2022 6:12 PM EDT Mikayla Al-2 How does patient get up? 1-2 assist Oxygen Needs: room air Discharging today? no Identify possible barriers to meeting goals/advancing plan of care: weakness End of Shift Summary: discharge arrangements pending * Care Plan - Regine Choi LPN - 06/24/2022 1:14 AM EDT Mikayla Al-Lucian How does patient get up? x2 assist Oxygen Needs: room air Discharging today? no Identify possible barriers to meeting goals/advancing plan of care: weakness End of Shift Summary: waiting for precert, pt had temp of 100.7 and was given prn tylenol at 0344 * Care Plan - Pat Dominguez RN - 06/23/2022 6:58 PM EDT Mikayla Al-2 How does patient get up? Oxygen Needs: room air Discharging today? Pending precert Identify possible barriers to meeting goals/advancing plan of care: weakness End of Shift Summary: * Care Plan - Aleena Scott RN - 06/23/2022 1:01 AM EDT Mikayla Al-2 How does patient get up? 2 assist with walker Oxygen Needs: room air Discharging today? possibly Identify possible barriers to meeting goals/advancing plan of care: End of Shift Summary: * Care Plan - Radha Guy RN - 06/22/2022 6:38 PM EDT Mikayla Pappas 510/510-2 How does patient get up? 2 assist Oxygen Needs: room air Discharging today? no Identify possible barriers to meeting goals/advancing plan of care: awaiting precert to F End of Shift Summary: planning on going to [facility] once precert finished. Alert and oriented. RA. Dressing to L foot. R BKA. * Case Management - CLAY Valle - 06/22/2022 12:37 PM EDT PEE spoke with admissions at [facility] today, provided COVID vaccination information. Patient has been offered a booster and is willing to do this prior to dc. Awaiting precert. PEE has secure mailed the updated OT eval note and the updated H&P to [facility] as well. Plan: 1. [facility]. Awaiting precert. 2. Wheelchair transport anticipated. * Case Management - CLAY Valle - 06/22/2022 8:07 AM EDT PEE requested new OT order as OT was discontinued earlier in stay, will send updated assessment to [facility] when available. Physician completed addendum to original H&P, will forward thisas well. PEE reached out to [facility] to determine if patient currently has the sitting tolerance to ride in a for the 1 hr 20m trip to [place]. He indicates patient has been sitting up inchair here for several hours daily, should be able to tolerate that distance. PEE continues to follow. * Care Plan - Aleena Scott RN - 06/21/2022 10:07 PM EDT Mikayla Pappas 510/510-2 How does patient get up? 2 assist to chair with walker Oxygen Needs: room air Discharging today? no Identify possible barriers to meeting goals/advancing plan of care: End of Shift Summary: * Care Plan - Jairon Scott RN - 06/21/2022 4:47 PM EDT Mikayla Pappas 510/510-2 How does patient get up? Up x 2 Oxygen Needs: RA Discharging today? No Identify possible barriers to meeting goals/advancing plan of care: Precert End of Shift Summary: Patient stable throughout shift. Pending precert at [facility]. Will need transport set up at discharge. * Case Management - CLAY Valle - 06/21/2022 3:07 PM EDT PEE secure mailed updated clinical to [facility] at [facility]. * Case Management - CLAY Valle - 06/21/2022 12:19 PM EDT PEE received acceptance from [facility]/[employer] [facility] for [facility] in [place]. They will submit for insurance auth today, await determination. PEE did reach out to the original facility to request copy of the original PAS, will forward to [facility] once received. PEE met with patient to inform him of finding an accepting facility. He remains agreeable. Will require transport at id, is currently wc bound due to R BKA. * Case Management - CLAY Valle - 06/21/2022 7:42 AM EDT PEE received notification that the faxed referral never went through to [facility]. PEE attempted to fax again without success, has left vm for Meliza in Admissions to determine if the referral can beemailed securely to her. SW also learned that the fax to [employer] did not go through. SW spoke with her this morning, secure emailed the referral to [email or web address] and awaiting review. * Care Plan - Regine Choi LPN - 06/21/2022 1:43 AM EDT Mikayla Pappas 510/510-2 How does patient get up? X2 assist Oxygen Needs: room air Discharging today? no Identify possible barriers to meeting goals/advancing plan of care: needing placement End of Shift Summary: waiting for ECF placement * Care Plan - Radha Guy RN - 06/20/2022 4:25 PM EDT Mikayla Pappas 510/510-2 How does patient get up? 1-2 kuldeep Oxygen Needs: room air Discharging today? no Identify possible barriers to meeting goals/advancing plan of care: ecf placement End of Shift Summary: no changes, continue current care. Awaiting ecf placement and approval * Case Management - CLAY Valle - 06/20/2022 3:17 PM EDT PEE spoke with [employer] regarding potential referral. She requests info be faxedfor review, likely for consideration at their [facility]. SW noted that they are welcome to do an onsite if desired. She will review and update this SW. * Case Management - CLAY Valle - 06/20/2022 3:01 PM EDT PEE left vm for Meliza at [facility] to determine if they were able to re-review and whether they may be willing to consider. * Care Plan - Regine Choi LPN - 06/20/2022 12:55 AM EDT Mikayla Sreekanth Pappas 510/510-2 How does patient get up? Heavy x2 assist Oxygen Needs: room air Discharging today? no Identify possible barriers to meeting goals/advancing plan of care: still waiting for placement End of Shift Summary: pt still pending placement for ECF * Case Management - CLAY Valle - 06/19/2022 2:28 PM EDT SW informed by Marianna that patient is asking about getting set up with a walker. SW met with patient to check in and [facility] and was told he can get set up with a walker and a wheelchair as long as we get an order from a physician. SW confirmed, then noted that the issueis that I cannot set up the equipment for someone going from here to a facility as the facility will arrange when he is ready to transition to the community. He states that he's been thinking that ifwe cannot find an accepting facility that he will discharge himself and find an apartment where he can stay. SW explained that this is not a feasible option at this time as he is not able to safely transfer himself from a bed to chair without hands on assist and would be unsafe in an apartment byhimself. SW had reviewed today's PT note, aware patient requires Mod A and heavy bracing against the bed to stand/pivot transfer, poor eccentric control, very unsteady with transfers. In addition, ifpatient discharges himself without a place to stay arranged, he will not get into an apartment same day and has not taken any steps to secure housing. He is not a candidate for a alf environment given his functional limitations at the current time. SW did inform him that if he has a friend orfamily member with whom he wants to stay and who can provide the level of assist he needs that PEE would then work on setting up the necessary DME but in the meantime, PEE continues to work on finding an accepting facility for patient for rehab at id. Patient does plan to ask a friend to bring in hisprosthetic leg so that therapy can work with him with this if that is not otherwise contraindicated. No change in planning at this time. * Care Plan - Regine Choi LPN - 06/18/2022 10:24 PM EDT Mikayla Pappas 510/510-2 How does patient get up? Heavy x2 assist Oxygen Needs: room air Discharging today? no Identify possible barriers to meeting goals/advancing plan of care: still waiting for placement End of Shift Summary: pt still pending placement for ECF * Care Plan - Joselyn Sharp RN - 06/18/2022 8:00 PM EDT Mikayla Pappas 510/510-2 How does patient get up? Max x2 Oxygen Needs: room air Discharging today? Waiting placement Identify possible barriers to meeting goals/advancing plan of care: rt BKA limits activity End of Shift Summary: c/o sore throat, cough and nasal congestion--positive to rhinovirus * Case Management - CLAY Valle - 06/18/2022 1:57 PM EDT PEE attempted to reach Jennifer at [facility] for an update on status of referral, however staffindicates she is unavailable. PEE left message requesting return call. PEE did then leave a for admissions at [facility] ([phone]) to request a return call regarding a possible refe rral. PEE did then speak with Meliza at [facility], explained that I was wondering if they could re-review a case they had previously declined. SW noted that patient has been behaviorally stable forhis entire 48 day stay here, no aggression, no combative behaviors, cooperative with care, pleasantwith staff, noted that we are very open to an onsite assessment if they would like to consider. They are willing to review and will update this SW. * Care Plan - Lucia Avelar RN - 06/18/2022 4:58 AM EDT Mikayla Pappas 510/510-2 How does patient get up? x2 Oxygen Needs: none Discharging today? no Identify possible barriers to meeting goals/advancing plan of care: waiting for placement End of Shift Summary: denies needs throughout shift * Care Plan - Lucía Roberts LPN - 06/17/2022 11:52 PM EDT Mikayla Pappas 510/510-2 How does patient get up? 2 assist Oxygen Needs: No Discharging today? No Identify possible barriers to meeting goals/advancing plan of care: Awaiting placement End of Shift Summary: * Care Plan - Mya Harvey RN - 06/17/2022 5:30 PM EDT Mikayla Pappas 510/510-2 How does patient get up? Bedrest Oxygen Needs: No Discharging today? No Identify possible barriers to meeting goals/advancing plan of care: Waiting on placement to ECF. Wound to left foot End of Shift Summary: Wound Nurse Clinic consult ordered for left foot. Pt is waiting on placement to ECF. * Care Plan - Meera Titus LPN - 06/16/2022 3:51 AM EDT Mikayla Pappas 510/510-2 How does patient get up? X 2 Oxygen Needs: RA Discharging today? NO Identify possible barriers to meeting goals/advancing plan of care: PTSD/Aggressive Behavior, End of Shift Summary: From [facility] awaiting to hear from [facility] (long- term), Chronic Todd, NoIV in place, R BKA * Care Plan - Puja Grijalva RN - 06/15/2022 5:29 PM EDT Mikayla Pappas 510/510-2 How does patient get up? x2 Oxygen Needs: no Discharging today? no Identify possible barriers to meeting goals/advancing plan of care: placement End of Shift Summary: RBKA. Todd catheter * Care Plan - Vaishnavi Escobar RN - 06/15/2022 4:01 AM EDT Mikayla Pappas 510/510-2 How does patient get up? X2 to pivot to chair Oxygen Needs: RA Discharging today? No Identify possible barriers to meeting goals/advancing plan of care: Awaiting accepting facility. End of Shift Summary: Patient resting comfortably throughout the duration of the shift. Mood and behavior WNL Problem: Safety - Adult Goal: Free from fall injury Outcome: Progressing Flowsheets (Taken 06/08/2022 1255 by Phi Ford RN) Free from fall injury: Assess patient frequently for physical needs Identify cognitive and physical deficits and behaviors that affect risk of falls [place] fall precautions as indicated by assessment Educate patient/family on patient safety, including physical limitations Instruct patient to call for assistance with activity based on assessment Consider OT/PT consult to assist with strengthening/mobility Modify environment to reduce risk of injury Problem: Chronic Conditions and Co-morbidities Goal: Patient's chronic conditions and co-morbidity symptoms are monitored and maintained or improved Outcome: Progressing Flowsheets (Taken 06/08/2022 1255 by Phi Ford RN) Patient's chronic conditions are monitored and maintained or improved: Monitor and assess patient's chronic conditions and comorbid symptoms for stability, deterioration,or improvement Collaborate with multidisciplinary team to address chronic and comorbid conditions and prevent exacerbation or deterioration Update acute care plan with appropriate goals if chronic or comorbid symptoms are exacerbated and prevent overall improvement and discharge Problem: Potential for Compromised Skin Integrity Goal: Skin Integrity is Maintained or Improved Outcome: Progressing Flowsheets (Taken 06/08/2022 1255 by Phi Ford, RN) Skin integrity is maintained or improved: Assess and monitor skin integrity Collaborate with interdisciplinary team and initiate plans and interventions as needed Relieve pressure to bony prominences Keep skin clean and dry Encourage use of lotion/moisturizer on skin Collaborate with wound, ostomy, and continence nurse Identify patients at risk for skin breakdown on admission and per policy Turn patient Avoid shearing Alternate a full bath with partial baths for elderly Monitor patient's hygiene practices * Case Management - Meliza Walters - 06/14/2022 10:35 PM EDT R1 returns recommendation of OU * Care Plan - Helen Rangel RN - 06/14/2022 4:32 PM EDT Mikayla Pappas 510/510-2 How does patient get up? Up x 1-2 Oxygen Needs: room air Discharging today? no Identify possible barriers to meeting goals/advancing plan of care: waiting placement for discharge End of Shift Summary: no behavioral issues noted this shift, patient calm/cooperative. Waiting placement. Chronic todd, right BKA. * Case Management - CLAY Valle - 06/14/2022 3:55 PM EDT SW left message for Jennifer at [facility] to check status of referral, await return call. * Care Plan - Lucía Roberts LPN - 06/14/2022 12:27 AM EDT Mikayla Pappas 510/510-2 How does patient get up? 2 assist Oxygen Needs: No Discharging today? No Identify possible barriers to meeting goals/advancing plan of care: End of Shift Summary: Awaiting ECF placement * Care Plan - Radha Guy RN - 06/13/2022 6:12 PM EDT Mikayla Pappas /510-2 How does patient get up? Oxygen Needs: RA Discharging today? no Identify possible barriers to meeting goals/advancing plan of care: awaiting ECF End of Shift Summary: no changes or events today * Care Plan - Jorge Thornton RN - 06/13/2022 9:58 AM EDT Mikayla Pappas 510/510-2 How does patient get up? X2 with walker Oxygen Needs: No Discharging today? No, awaiting placement Identify possible barriers to meeting goals/advancing plan of care: Awaiting placement End of Shift Summary: Awaiting placement. Diabetic diet, chems AC/HS. Chronic todd. * Care Plan - Aleena Scott RN - 06/13/2022 12:56 AM EDT Mikayla Pappas 510/510-2 How does patient get up? 2 assist with walker Oxygen Needs: room air Discharging today? no Identify possible barriers to meeting goals/advancing plan of care: placement End of Shift Summary: Waiting for placement Problem: Discharge Planning Goal: Discharge to home or other facility with appropriate resources Outcome: Not Progressing Flowsheets (Taken 06/08/2022 1255 by Phi Ford, DENISE) Discharge to home or other facility with appropriate resources: Identify barriers to discharge with patient and caregiver Arrange for needed discharge resources and transportation as appropriate Identify discharge learning needs (meds, wound care, etc) Refer to discharge planning if patient needs post-hospital services based on physician order or complex needs related to functional status, cognitive ability or social support system * Care Plan - Shell Smith RN - 06/12/2022 6:29 PM EDT Mikayla Pappas 510/510-2 How does patient get up? Up x standby Oxygen Needs: room air Discharging today? Identify possible barriers to meeting goals/advancing plan of care: End of Shift Summary: awaiting placement, pt remains stale throughout shift Problem: Discharge Planning Goal: Discharge to home or other facility with appropriate resources Outcome: Not Progressing Flowsheets (Taken 06/08/2022 1255 by Phi Ford RN) Discharge to home or other facility with appropriate resources: Identify barriers to discharge with patient and caregiver Arrange for needed discharge resources and transportation as appropriate Identify discharge learning needs (meds, wound care, etc) Refer to discharge planning if patient needs post-hospital services based on physician order or complex needs related to functional status, cognitive ability or social support system * Care Plan - Aleena Scott RN - 06/12/2022 12:06 AM EDT Mikayla Pappas 510/510-2 How does patient get up? 2 assist with walker Oxygen Needs: room air Discharging today? no Identify possible barriers to meeting goals/advancing plan of care: End of Shift Summary: Chronic todd. Allveyn to left foot ( changed HS). Waiting placement * Care Plan - Puja Grijalva RN - 06/11/2022 5:54 PM EDT Mikayla Pappas 510/510-2 How does patient get up? x2 Oxygen Needs: no Discharging today? no Identify possible barriers to meeting goals/advancing plan of care: placement End of Shift Summary: uneventful shift. * Case Management - CLAY Valle - 06/11/2022 3:39 PM EDT PEE spoke with Jennifer in Admissions at [facility] in [place] (, fax [phone]), discussed potential referral and details. She requests that SW fax the referral for review. She does note that they have had trouble getting [employer] to approve long-term care authorizations (she is aware he should initially skill) and that if they would accept that they may require that he disenroll prior to them being able to accept him. SW would have to discuss with patient to determineif he is willing and discuss with [employer] to determine if she knows the process for this. In addition, if patient is not up to date on boosters, they may require that [facility] She will check on this and let SW know. PEE will check with prior facility to determine if he may have received a booster while there. PEE did note that if they would want to do an onsite that we are more than willing to accommodate thisas well. Awaiting review and determination on issues of insurance and vaccination. Addendum: PEE spoke with [facility]. Patient has no booster on record with them. * Care Plan - Aleena Scott RN - 06/11/2022 3:39 AM EDT Mikayla Pappas 510/510-2 How does patient get up? 2 assist Oxygen Needs: room air Discharging today? no Identify possible barriers to meeting goals/advancing plan of care: ECF placement End of Shift Summary: Daily dressing change * Care Plan - Aleena Scott RN - 06/10/2022 5:56 AM EDT Mikayla Wang/Felipe-2 How does patient get up? 2 assist Oxygen Needs: room air Discharging today? Identify possible barriers to meeting goals/advancing plan of care: End of Shift Summary: * Care Plan - Regine Choi LPN - 06/09/2022 6:14 AM EDT Mikayla Al-2 How does patient get up? X2 assist Oxygen Needs: room air Discharging today? No Identify possible barriers to meeting goals/advancing plan of care: having to wait for placement End of Shift Summary: Patient continues to wait for needed ECF placement. Patient denies any other needs. * Care Plan - Phi Ford RN - 06/08/2022 12:57 PM EDT Mikayla Al-Lucian How does patient get up? X2 assist Oxygen Needs: room air Discharging today? No Identify possible barriers to meeting goals/advancing plan of care: pain End of Shift Summary: Patient continues to wait for needed ECF placement. Patient denies any other needs. * Mariusz Dillard - Regine Choi LPN - 06/08/2022 6:46 AM EDT Mikayla Al-2 How does patient get up? X2 assist Oxygen Needs: room air Discharging today? no Identify possible barriers to meeting goals/advancing plan of care: ecf placement End of Shift Summary: still waiting for ecf placement * Care Plan - Jairon Osullivan RN - 06/07/2022 4:55 PM EDT Mikayla Al-2 How does patient get up? X1 to chair Oxygen Needs: none Discharging today? no Identify possible barriers to meeting goals/advancing plan of care: End of Shift Summary: waiting for placement * Case Management - CLAY Valle - 06/07/2022 3:21 PM EDT SW reached out to [facility] ([phone]) to initiate referral. Admissions worker is gone for the day and they request a call back in the morning. * Case Management - Tonya Calabrese RN - 06/07/2022 1:25 PM EDT Submitted to for review * Care Plan - Ana M Muhammad RN - 06/07/2022 5:52 AM EDT Mikayla Wang/510-2 How does patient get up? Oxygen Needs: ra Discharging today? Identify possible barriers to meeting goals/advancing plan of care: Difficult placement. End of Shift Summary: uneventful shift. * Care Plan - Regine Choi LPN - 06/06/2022 6:24 AM EDT Mikayla Pappas 510/510-2 How does patient get up? X2 uses w/c Oxygen Needs: room air Discharging today? Waiting for ECF placement Identify possible barriers to meeting goals/advancing plan of care: End of Shift Summary: still pending placement for ecf * Care Plan - Ivette Perry RN - 06/05/2022 6:33 PM EDT Mikayla Wang/510-2 How does patient get up? X2 Oxygen Needs: Discharging today? Waiting for ECF placement Identify possible barriers to meeting goals/advancing plan of care: End of Shift Summary: * Case Management - CLAY Valle - 06/05/2022 4:20 PM EDT SW received follow up call from [facility]. Their behavioral units have no availability currently. SW will continue to explore options as able. * Case Management - CLAY Valle - 06/05/2022 10:55 AM EDT SW left vm for Brice Galdamez requesting update on his calls to their outlying facilities and determine if they are willing to consider or do an onsite assessment. * Care Plan - Lucía Roberts LPN - 06/05/2022 2:25 AM EDT Mikayla Wang/Felipe-2 How does patient get up? 2-3 assist Oxygen Needs: Room Air Discharging today? Identify possible barriers to meeting goals/advancing plan of care: End of Shift Summary: Awaiting ECF * Care Plan - Pat Dominguez RN - 06/03/2022 6:45 PM EDT Mikayla Wang/510-2 How does patient get up? 2-3 assist Oxygen Needs: room air Discharging today? no Identify possible barriers to meeting goals/advancing plan of care: End of Shift Summary: pleasant and cooperative with care this shift * Care Plan - Na So RN - 06/03/2022 1:47 AM EDT Mikayla Pappas 510/510-2 How does patient get up? 2 max assist Oxygen Needs: None Discharging today? No Identify possible barriers to meeting goals/advancing plan of care: cognition End of Shift Summary: * Care Plan - Puja Grijalva RN - 06/02/2022 6:29 PM EDT Mikayla Pappas 510/510-2 How does patient get up? x2 Oxygen Needs: no Discharging today? no Identify possible barriers to meeting goals/advancing plan of care: placement End of Shift Summary: replaced todd catheter today * Care Plan - Lucía Roberts LPN - 06/02/2022 1:34 AM EDT Mikayla Pappas 510/510-2 How does patient get up? 2 assist Oxygen Needs: no Discharging today? no Identify possible barriers to meeting goals/advancing plan of care: End of Shift Summary: * Case Management - CLAY Valle - 05/31/2022 2:59 PM EDT PEE spoke with Brice at [facility]. He does not know if the local facility would be an option buthas a couple of partner facilities in the [place] and [place] areas that may be willing to consider. PEE initiated referral, await review. * Case Management - CLAY Valle - 05/31/2022 2:19 PM EDT PEE received follow up call from [facility]. Patient assessment went well, however admin is unwilling to accept at this time. SW will continue to follow and reach out to additional facilities in [facility] to find placement. * Case Management - CLAY Valle - 05/31/2022 1:34 PM EDT SW spoke with [facility]. She is awaiting admin availability to review case and obtain a determination. * Care Plan - Regine Choi LPN - 05/31/2022 5:48 AM EDT Mikayla Wang/Felipe-2 How does patient get up? 1-2 w/c Oxygen Needs: none Discharging today? unknown Identify possible barriers to meeting goals/advancing plan of care: ECF placement End of Shift Summary: Patient will have an intake assessment from [facility] here on 05/31/2022. * Care Plan - Jorge Merrill RN - 05/30/2022 5:15 PM EDT Mikayla Wang/510-2 How does patient get up? Max assist Oxygen Needs: none Discharging today? no Identify possible barriers to meeting goals/advancing plan of care: ECF placement End of Shift Summary: Patient will have an intake assessment from [facility] here on 05/31/2022. * Case Management - CLAY Valle - 05/30/2022 3:01 PM EDT SW met with patient, informed him of plan for an onsite eval with [facility] tomorrow around 10am. He is agreeable. Physician is aware as well. If they are able to accept, patient indicates a friend can pick pulling machine tender his belongings at his prior facility to bring to his new facility. * Case Management - CLAY Valle - 05/30/2022 1:34 PM EDT SW received update from Rocio/[facility]. They plan to do an onsite eval around 10am tomorrow to determine if they may accept referral. PEE continues to follow. * Care Plan - Aleena Scott RN - 05/29/2022 11:25 PM EDT Mikayla Pappas 510/510-2 How does patient get up? Up to chair Oxygen Needs: room air Discharging today? no Identify possible barriers to meeting goals/advancing plan of care: placement End of Shift Summary: * Care Plan - Jorge Merrill RN - 05/29/2022 6:05 PM EDT Mikayla Pappas 510/510-2 How does patient get up? Max assist Oxygen Needs: Room air Discharging today? No Identify possible barriers to meeting goals/advancing plan of care: Patient continues to await ECF placement End of Shift Summary: * Case Management - CLAY Valle - 05/29/2022 11:39 AM EDT PEE spoke with Rocio at [facility], reviewed case, noted extended length of stay with no behavioral issues and that they are welcome to do an onsite if they are willing to consider patient. She will review for consideration and let SW know. PEE did note that patient has had a worsening in functional status, is now a 2-3 person max assist to try to transfer to a chair (was typically up in his wcat baseline) and may skill for a short period before transitioning to long- term care. * Care Plan - Pat Dominguez RN - 05/28/2022 6:47 PM EDT Mikayla Pappas 510/510-2 How does patient get up? Max assist Oxygen Needs: room air Discharging today? no Identify possible barriers to meeting goals/advancing plan of care: decreased mobility End of Shift Summary: no significant needs or complaints this shift * Case Management - CLAY Valle - 05/28/2022 3:23 PM EDT PEE received return call from Narcisa [facility]. Her facilities are declining due to the notation of homicidal ideation upon admission (patient was subsequently cleared by psychiatry). This rules out another 10 facilities falling under this corporation. Patient has been declined by at least 80 facilities at this point. PEE will continue to call facilities but anticipates that difficulty placing patientwill continue. * Case Management - CLAY Valle - 05/28/2022 12:55 PM EDT PEE reached out to [facility] [place] to request review of referral. She requests that SW fax to Emma Chung and PEE did inform her that they had already declined patient. She will review and discuss with Rashad to determine if they can reconsider. PEE did note that patient has been here for 27 days at this point, no behavioral difficulties, compliant with care. PEE did re-send referral information, await review. * Care Plan - Na So RN - 05/28/2022 4:32 AM EDT Mikayla Pappas 510/510-2 How does patient get up? Max 2 assist Oxygen Needs: No Discharging today? No Identify possible barriers to meeting goals/advancing plan of care: None End of Shift Summary: * Care Plan - Mandy Bingham RN - 05/27/2022 12:16 PM EDT Mikayla Wang/510-2 How does patient get up? RBKA Oxygen Needs: RA Discharging today? No Identify possible barriers to meeting goals/advancing plan of care: End of Shift Summary: Pt stable * Care Plan - Na So RN - 05/27/2022 4:11 AM EDT Mikayla Wang/510-2 How does patient get up? 2 Max assist Oxygen Needs: None Discharging today? No Identify possible barriers to meeting goals/advancing plan of care: Mental health End of Shift Summary: * Care Plan - Jairon Osullivan RN - 05/26/2022 4:58 PM EDT Mikayla Wang/510-2 How does patient get up? x1 Oxygen Needs: none Discharging today? no Identify possible barriers to meeting goals/advancing plan of care: End of Shift Summary: waiting for bed/placement * Care Plan - Na So RN - 05/26/2022 4:59 AM EDT Mikayla Wang/Felipe-2 How does patient get up? Bedrest Oxygen Needs: None Discharging today? No Identify possible barriers to meeting goals/advancing plan of care: Condition End of Shift Summary: * Care Plan - Pat Dominguez RN - 05/25/2022 6:47 PM EDT Mikayla Pappas 510/510-2 How does patient get up? Max assist Oxygen Needs: room air Discharging today? no Identify possible barriers to meeting goals/advancing plan of care: decreased mobility End of Shift Summary: patient with complaints of discomfort and nausea this shift. * Case Management - JONO Abad - 05/25/2022 4:11 PM EDT PEE called Maria Teresa with [facility] who states she is unable to accept pt. PEE asked Maria Teresa about her sister facilities to see if they could assist with placement. She states that she has sent the referral on to them, but they will call SW if they are able to assist. PEE will continue to work on trying to find an accepting facility for pt. * Care Plan - Aleena Scott RN - 05/25/2022 1:14 AM EDT Mikayla Pappas 510/510-2 How does patient get up? 2 assist Oxygen Needs: room air Discharging today? no Identify possible barriers to meeting goals/advancing plan of care: placement End of Shift Summary: Daily dressing change to left foot. * Care Plan - Allie Barrientos RN - 05/24/2022 4:29 PM EDT Mikayla Pappas 510/510-2 How does patient get up? Two plus assist Oxygen Needs: room air Discharging today? none Identify possible barriers to meeting goals/advancing plan of care: weakness End of Shift Summary: stable * Case Management - Tonya Calabrese RN - 05/24/2022 3:12 PM EDT Resubmitted to * Care Plan - Lucía Roberts LPN - 05/23/2022 11:47 PM EDT Mikayla Wang/Felipe-2 How does patient get up? 2 assist Oxygen Needs: No Discharging today? No Identify possible barriers to meeting goals/advancing plan of care: End of Shift Summary: Awaiting ECF * Care Plan - Regine Choi LPN - 05/23/2022 2:50 AM EDT Mikayla Wang/Felipe-2 How does patient get up? 1-2 assist uses w/c Oxygen Needs: room air Discharging today? no Identify possible barriers to meeting goals/advancing plan of care: placement needs End of Shift Summary: still pending placement to ECF * Care Plan - Laquita Mccarthy LPN - 05/22/2022 12:49 PM EDT Mikayla Wang/Felipe-2 How does patient get up? With a sana Oxygen Needs: RA Discharging today? no Identify possible barriers to meeting goals/advancing plan of care: placement End of Shift Summary: Patient has been cooperative and calm this shift. Follows direction and does not refuse care or medications. * Care Plan - Regine Choi LPN - 05/22/2022 1:41 AM EDT Mikayal Wang/Felipe-2 How does patient get up? X2 assist Oxygen Needs: room air Discharging today? no Identify possible barriers to meeting goals/advancing plan of care: still pending placement End of Shift Summary: still pending placement to an ECF * Care Plan - Laquita Mccarthy LPN - 05/21/2022 6:24 PM EDT Mikayla Wang/510-2 How does patient get up? With assist Oxygen Needs: RA Discharging today? No Identify possible barriers to meeting goals/advancing plan of care: Finding placement End of Shift Summary: patient did well this shift. Cooperative and calm. * Case Management - JONO Abad - 05/21/2022 2:32 PM EDT PEE called Maria Teresa with [facility] to check on status of referral. She states they arestill reviewing and will call SW if they have any questions. PEE will continue to follow. * Case Management - Julissa Felton RN - 05/21/2022 12:01 PM EDT Resent case to R1 for extended observation and further recommendations on level of care. * Care Plan - Aleena Scott RN - 05/21/2022 5:00 AM EDT Mikayla Wang/510-2 How does patient get up? 1-2 assist Oxygen Needs: room air Discharging today? no Identify possible barriers to meeting goals/advancing plan of care: placement End of Shift Summary: Chronic todd. Air mattress placed for prevention. Daily dressing changes * Care Plan - Luz Marina Wong RN - 05/19/2022 3:41 PM EDT Mikayla Wang/510-2 How does patient get up? Assist; can be combative Oxygen Needs: room air Discharging today? No; awaiting precert Identify possible barriers to meeting goals/advancing plan of care: placement is a problem due to pt's ptsd and violent tendencies. End of Shift Summary: stable; had a great day; talkative. * Care Plan - Rosa Santiago RN - 05/18/2022 4:20 PM EDT Problem: Pain - Adult Goal: Verbalizes/displays adequate comfort level or baseline comfort level Outcome: Progressing Flowsheets (Taken 05/18/2022206 by Violetta Moreland RN) Verbalizes/displays adequate comfort level or baseline comfort level: Encourage patient to monitor pain and request assistance Assess pain using appropriate pain scale Implement non-pharmacological measures as appropriate and evaluate response Administer analgesics based on type and severity of pain and evaluate response Problem: Safety - Adult Goal: Free from fall injury Outcome: Progressing Flowsheets (Taken 05/18/2022206 by Violetta Moreland RN) Free from fall injury: Assess patient frequently for physical needs Identify cognitive and physical deficits and behaviors that affect risk of falls [place] fall precautions as indicated by assessment Modify environment to reduce risk of injury Goal: Absence of infection during hospitalization Outcome: Progressing Flowsheets (Taken 05/18/2022206 by Violetta Moreland RN) Absence of infection during hospitalization: Assess and monitor for signs and symptoms of infection Monitor lab/diagnostic results Monitor all insertion sites i.e., indwelling lines, tubes and drains Administer medications as ordered Problem: Discharge Planning Goal: Discharge to home or other facility with appropriate resources Outcome: Progressing Flowsheets (Taken 05/18/2022206 by Violetta Moreland RN) Discharge to home or other facility with appropriate resources: Identify barriers to discharge with patient and caregiver Arrange for needed discharge resources and transportation as appropriate Identify discharge learning needs (meds, wound care, etc) Problem: Chronic Conditions and Co-morbidities Goal: Patient's chronic conditions and co-morbidity symptoms are monitored and maintained or improved Outcome: Progressing Flowsheets (Taken 05/18/2022206 by Violetta Moreland RN) Patient's chronic conditions are monitored and maintained or improved: Monitor and assess patient's chronic conditions and comorbid symptoms for stability, deterioration,or improvement Collaborate with multidisciplinary team to address chronic and comorbid conditions and prevent exacerbation or deterioration Update acute care plan with appropriate goals if chronic or comorbid symptoms are exacerbated and prevent overall improvement and discharge Problem: Knowledge Deficit Goal: Patient/family/caregiver demonstrates understanding of disease process, treatment plan, medications, and discharge instructions Outcome: Progressing Flowsheets (Taken 05/18/2022206 by Violetta Moreland RN) Patient/family/caregiver demonstrates understanding of disease process, treatment plan, medications, and discharge instructions: Complete learning assessment and assess knowledge base Provide teaching at level of understanding Problem: Potential for Compromised Skin Integrity Goal: Skin Integrity is Maintained or Improved Outcome: Progressing Flowsheets (Taken 05/18/2022206 by Violetta Moreland RN) Skin integrity is maintained or improved: Assess and monitor skin integrity Turn patient Avoid shearing Relieve pressure to bony prominences Keep skin clean and dry Goal: Nutritional status is improving Outcome: Progressing Flowsheets (Taken 05/18/2022206 by Violetta Moreland RN) Nutritional status is improving: Monitor and assess patient for malnutrition (ex- brittle hair, bruises, dry skin, pale skin and conjunctiva, muscle wasting, smooth red tongue, and disorientation) Collaborate with interdisciplinary team and initiate plan and interventions as ordered Monitor patient's weight and dietary intake as ordered or per policy Allow adequate time for meals Problem: Urinary Incontinence Goal: Perineal skin integrity is maintained or improved Outcome: Progressing Flowsheets (Taken 05/18/2022206 by Violetta Moreland RN) Perineal skin integrity is maintained or improved: Apply skin protectant Develop skin care regimen Keep skin clean and dry Assess genitourinary system, perineal skin, labs (urinalysis), and history of incontinence to include past management, aggravating, and alleviating factors Problem: PT Misc Goal: STG - Misc 1 Outcome: Progressing Goal: STG - Misc 2 Outcome: Progressing Mikayla Pappas 510/510-2 How does patient get up? Sana lift Oxygen Needs: N/A Discharging today? No Identify possible barriers to meeting goals/advancing plan of care: Awaiting acceptance to a care home care facility. End of Shift Summary: Patient has been comfortable so far this shift. In good spirits and understands placement waiting. * Case Management - CLAY Valle - 05/18/2022 2:13 PM EDT SW received return call from Karla at [facility] and they have declined the referral. * Case Management - JONO Abad - 05/18/2022 2:06 PM EDT PEE called referral and left voice mail for Bere with [facility] and Franca with [facility] in [place]. PEE then called referral to Maria Teresa with [facility] at [phone]. She asked referral to be faxed to [phone]. She states there are 17 sister facilities throughout [place] and she will send the referrals to other facilities if she can not manage pt at her facility. PEE will continue to follow. * Care Plan - Violetta Moreland RN - 05/18/2022 4:41 AM EDT Mikayla Pappas 510/510-2 How does patient get up? 2 assist Oxygen Needs: None Discharging today? No Identify possible barriers to meeting goals/advancing plan of care: End of Shift Summary: Awaiting placement. * Case Management - CLAY Valle - 05/17/2022 3:00 PM EDT PEE spoke with Aida at [place]. They have declined the referral. PEE then spoke with Rafi at [facility] and he indicates they did not receive the fax yesterday. SW re-faxed to their e-fax rather than their hard fax which is currently down. PEE did meet with patient again to update him regarding lack of progress on placement. Patient again asked about returning to [facility] and SW explained again that they will not accept him back due to the behavior he demonstrated leading to his transfer to the ED. SW explained that while he has not demonstrated any aggression here that we cannot force a facility to accept. Patient does not understand why this SW has not found an accepting facility and SW noted that it is due to the behaviors which resulted in him coming to the ED. He then asked if SW has to tell facilities about that and SW explained that it is clearly reflected in the medical record which is part of the referral process, so yes, any potential placement will be aware. SW continues to follow. * Care Plan - Puja Grijalva RN - 05/16/2022 7:05 PM EDT Miakyla Pappas 510/510-2 How does patient get up? X1-2? Oxygen Needs: no Discharging today? no Identify possible barriers to meeting goals/advancing plan of care: placement End of Shift Summary: todd-chronic. Awaiting placement * Care Plan - Violetta Moreland RN - 05/16/2022 3:32 AM EDT Mikayla Pappas 510/510-2 How does patient get up? Oxygen Needs: None Discharging today? No Identify possible barriers to meeting goals/advancing plan of care: End of Shift Summary: waiting for placement * Case Management - CLAY Valle - 05/15/2022 11:19 AM EDT PEE has not received response other than denials from any prior referrals. PEE has spoken with Aida at [facility] in [place], initiated referral as they do have a male behavioral unit. Theywill review but she indicates that with the patient's stated history of threats/aggression that it is unlikely they will accept. She will update this SW. PEE did then also initiate referral to Karla at [facility] in [place], faxed info, awaiting review. SW will continue to make follow up calls and new referral calls as able. Per review of chart, patient has been appropriate and cooperative with care thus far throughout stay here, no episodes of aggression or threats. * Care Plan - Na So RN - 05/15/2022 7:33 AM EDT Mikayla Wang/510-2 How does patient get up? Oxygen Needs: Discharging today? Identify possible barriers to meeting goals/advancing plan of care: End of Shift Summary: * Case Management - Brenna Guevara RN - 05/14/2022 5:19 PM EDT Resubmitted to - OU recommendation received. * Care Plan - Regine Choi LPN - 05/14/2022 3:52 AM EDT Mikayla Wang/Felipe-2 How does patient get up? W/c Oxygen Needs: room air Discharging today? Pending placement Identify possible barriers to meeting goals/advancing plan of care: placement needs End of Shift Summary: still pending placement at ECF * Care Plan - Aleena Isaac RN - 05/13/2022 4:26 PM EDT Mikayla Wang/Felipe-2 How does patient get up? WC bound Oxygen Needs: RA Discharging today? No Identify possible barriers to meeting goals/advancing plan of care: Placement issues End of Shift Summary: Uneventful shift. DC pending placement issues. * Care Plan - Regine Choi LPN - 05/13/2022 5:45 AM EDT Mikayla Pappas 510/510-2 How does patient get up? Wheelchair bound Oxygen Needs: room air Discharging today? pending placement Identify possible barriers to meeting goals/advancing plan of care: placement needs End of Shift Summary: still pending placement * Care Plan - Roberto Miller RN - 05/12/2022 6:16 PM EDT Mikayla Pappas 510/510-2 How does patient get up? Wheelchair bound Oxygen Needs: na Discharging today? na Identify possible barriers to meeting goals/advancing plan of care: End of Shift Summary: Dressing change to the left foot completed today. Otherwise, uneventful day. * Care Plan - Savanna Tan RN - 05/12/2022 6:18 AM EDT Mikayla Pappas 510/510-2 How does patient get up? bedrest Oxygen Needs: none Discharging today? no Identify possible barriers to meeting goals/advancing plan of care: ecf placement End of Shift Summary: no changes during shift. Problem: Discharge Planning Goal: Discharge to home or other facility with appropriate resources Outcome: Not Progressing Flowsheets (Taken 05/08/20222226 by Violetta Moreland RN) Discharge to home or other facility with appropriate resources: Identify barriers to discharge with patient and caregiver Arrange for needed discharge resources and transportation as appropriate Identify discharge learning needs (meds, wound care, etc) * Case Management - CLAY Valle - 05/11/2022 12:42 PM EDT PEE met with patient, updated him on the referral process for ECF and explained that PEE does not anticipate acceptance in the imminent future but that we are continuing to make referrals. Patient asked why so many facilities are denying him. SW explained that since he was sent in after threatening staff and residents at his prior facility that this is a red flag for many facilities since the population of most nursing and rehab centers is elderly and frail. SW informed him that we are trying to focus on facilities that work with individuals who have behavioral issues for this reason and noted that PEE is unsure where in [place] an accepting facility will be found. SW continues to follow. * Case Management - CLAY Valle - 05/11/2022 7:24 AM EDT SW received denial from [facility] and [facility]. These facilities do not feelable to meet this patient's needs at this time. * Care Plan - Savanna Tan RN - 05/11/2022 6:26 AM EDT Mikayla Pappas 510/510-2 How does patient get up? bed bound Oxygen Needs: none Discharging today? N/a Identify possible barriers to meeting goals/advancing plan of care: ecf placement End of Shift Summary: no changes during night. Problem: Discharge Planning Goal: Discharge to home or other facility with appropriate resources Outcome: Not Progressing Flowsheets (Taken 05/08/20222226 by Violetta Moreland RN) Discharge to home or other facility with appropriate resources: Identify barriers to discharge with patient and caregiver Arrange for needed discharge resources and transportation as appropriate Identify discharge learning needs (meds, wound care, etc) * Case Management - CLAY Valle - 05/10/2022 11:42 AM EDT SW left a vm for Daisha at [facility] requesting return call to discuss potential referral. PEE thenspoke with [employer] ([facility] and [facility]), reviewed referral, faxed info. She will review to determine if either facility may be able to accept. SW left a vm for Frances at [facility] to request return call to discuss potential referral. SW spoke with Skyla at [facility] and they do not take patients with significant behaviors. SW left vm for Franca at [facility] to determine if they have a behavioral unit (they are noted as such on the [facility] custodial care website, but SW is uncertain this is accurate). PEE then spoke with [facility] regarding [place] and she indicates that no [facility] facility will take the patient (this rules out 61 different facilities throughout the [facility]). SW left a follow up message for Narcisa at [facility] and faxed the referral info, awaiting response. In summary, patient has been declined from the following 66 facilities: -[facility] -[facility] (61 facilities including [facility], [facility], [place], [facility], [facility], [facility], [facility]) -[facility] -[facility] -[facility] -[facility] Calls or referrals pending to: -[facility] -[facility] -[facility] -[facility] had declined due to lack of bed availability and may be revisited if no other options present themselves. PEE will continue to expand the search throughout the [facility]. PEE is aware that there was initially hope of placing patient in [facility] due to him having established providers in [place], however patient is likely to have to establish care providers wherever placement is found due to the dearth of providers willing to consider accepting patient. * Care Plan - Regine Choi LPN - 05/10/2022 8:20 AM EDT Mikayla Pappas 510/510-2 How does patient get up? Up x1 Oxygen Needs: room air Discharging today? no Identify possible barriers to meeting goals/advancing plan of care: waiting for placement End of Shift Summary: still pending placement * Care Plan - Shell Smith RN - 05/09/2022 5:06 PM EDT Mikayla Pappas 510/510-2 How does patient get up? Up x 1 Oxygen Needs: Discharging today? Identify possible barriers to meeting goals/advancing plan of care: End of Shift Summary: Awaiting discharge placement. Dressing changes completed on shift. Problem: Pain - Adult Goal: Verbalizes/displays adequate comfort level or baseline comfort level Outcome: Not Progressing Flowsheets (Taken 05/08/20222226 by Violetta Moreland RN) Verbalizes/displays adequate comfort level or baseline comfort level: Encourage patient to monitor pain and request assistance Assess pain using appropriate pain scale Administer analgesics based on type and severity of pain and evaluate response Implement non-pharmacological measures as appropriate and evaluate response * Care Plan - Violetta Moreland RN - 05/08/2022 10:28 PM EDT Mikayla Pappas 510/510-2 How does patient get up? Has not been up Oxygen Needs: None Discharging today? No Identify possible barriers to meeting goals/advancing plan of care: End of Shift Summary: awaiting placement. * Care Plan - Rosa Santiago RN - 05/08/2022 11:50 AM EDT Problem: Pain - Adult Goal: Verbalizes/displays adequate comfort level or baseline comfort level Outcome: Progressing Problem: Safety - Adult Goal: Free from fall injury Outcome: Progressing Goal: Absence of infection during hospitalization Outcome: Progressing Problem: Discharge Planning Goal: Discharge to home or other facility with appropriate resources Outcome: Progressing Problem: Chronic Conditions and Co-morbidities Goal: Patient's chronic conditions and co-morbidity symptoms are monitored and maintained or improved Outcome: Progressing Problem: Knowledge Deficit Goal: Patient/family/caregiver demonstrates understanding of disease process, treatment plan, medications, and discharge instructions Outcome: Progressing Problem: Potential for Compromised Skin Integrity Goal: Skin Integrity is Maintained or Improved Outcome: Progressing Goal: Nutritional status is improving Outcome: Progressing Problem: Urinary Incontinence Goal: Perineal skin integrity is maintained or improved Outcome: Progressing Mikayla Pappas 510/510-2 How does patient get up? Sana/Wheelchair bound Oxygen Needs: N/A Discharging today? Possibly Identify possible barriers to meeting goals/advancing plan of care: Finding ECF placement End of Shift Summary: Patient awaiting placament * Case Management - Tonya Calabrese RN - 05/08/2022 10:13 AM EDT r1 rec OU * Case Management - Tonya Calabrese RN - 05/08/2022 7:58 AM EDT r1 remains pending * Care Plan - Angi Mejia RN - 05/08/2022 6:13 AM EDT Mikayla Pappas 510/510-2 How does patient get up? Wheelchair bound Oxygen Needs: room air Discharging today? Identify possible barriers to meeting goals/advancing plan of care: foot wound End of Shift Summary: waiting to see what facility will accept patient * Result Encounter Note - Zaid Leon MD - 05/07/2022 3:23 PM EDT He needs a Rheumatology consult. * Result Encounter Note - Zaid Leon MD - 05/07/2022 3:22 PM EDT No acute. Will treat his symptoms. * Case Management - Tonya Calabrese RN - 05/07/2022 1:28 PM EDT Resubmitted to for review * Care Plan - Dionne Helm RN - 05/07/2022 7:34 AM EDT Mikayla Pappas 510/510-2 How does patient get up? sana Oxygen Needs: Discharging today? Identify possible barriers to meeting goals/advancing plan of care: End of Shift Summary: * Care Plan - Puja Grijalva RN - 05/07/2022 6:13 AM EDT Mikayla Pappas 510/510-2 How does patient get up? Sana/wheelchair Oxygen Needs: RA Discharging today? no Identify possible barriers to meeting goals/advancing plan of care: placement End of Shift Summary: from [facility], needs psych evaluation for placement. Slept all night. Chronic todd * Care Plan - Radha Guy RN - 05/06/2022 5:55 PM EDT Mikayla Pappas 510/510-2 How does patient get up? Per pt, he was a sana to at [facility] *has R BKA Oxygen Needs: RA Discharging today? no Identify possible barriers to meeting goals/advancing plan of care: discharge planning End of Shift Summary: Pt awaiting ECF placement. Neuro consulted today for headaches, CT head and labs ordered. Pt started on Depakote. Daily dressing change to L foot. * Care Plan - Violetta Moreland RN - 05/06/2022 6:53 AM EDT Mikayla Pappas 510/510-2 How does patient get up? Oxygen Needs: None Discharging today? no Identify possible barriers to meeting goals/advancing plan of care: awaiting placement End of Shift Summary: * Care Plan - Laquita Mccarthy LPN - 05/05/2022 5:49 PM EDT Mikayla Pappas 510/510-2 How does patient get up? With assistance Oxygen Needs: RA Discharging today? No Identify possible barriers to meeting goals/advancing plan of care: Placement End of Shift Summary: Patient has been pleasant this shift. * Care Plan - Violetta Moreland RN - 05/05/2022 2:02 AM EDT Mikayla Pappas 510/510-2 How does patient get up? Oxygen Needs: None Discharging today? No Identify possible barriers to meeting goals/advancing plan of care: End of Shift Summary: awaiting placement * Case Management - CLAY Valle - 05/04/2022 10:41 AM EDT PEE received notification from Irlanda at [facility]. They do not accept patient's insurance. * Case Management - CLAY Valle - 05/04/2022 9:39 AM EDT PEE received notification that [facility] has declined referral. * Care Plan - Nitza Martinez RN - 05/04/2022 6:39 AM EDT Mikayla Pappas 510/510-2 How does patient get up? saloni Skinner Oxygen Needs: room air Discharging today? unsure Identify possible barriers to meeting goals/advancing plan of care: ECF placement End of Shift Summary: * Case Management - Brenna Guevara RN - 05/03/2022 10:07 PM EDT Sent to R1- OU recommendation received. * Care Plan - Farideh Bhakta RN - 05/03/2022 5:28 PM EDT Mikayla Pappas 510/510-2 How does patient get up? 1-2 assist with walker Oxygen Needs: room air Discharging today? no Identify possible barriers to meeting goals/advancing plan of care: awaiting precert for an ECF- will be difficult due to violent history End of Shift Summary: Patient here awaiting ECF placement. Patient calm and pleasant. [facility] of Present illness Narrative* Zachery Coombs MD - 06/29/2022 3:06 PM EDT Subjective The patient was seen and evaluated by me today. No significant changes since the last time he was evaluated. Posttraumatic stress disorder with behavioral disturbances documented in admission but notanymore. Pending ECF placement. To be discharged whenever the arrangement is completed No lab exists for component: LABALBU Objective Physical Exam Last Recorded Vitals Blood pressure 137/77, pulse 67, temperature 36.4 C (97.6 F), temperature source Oral, resp. rate 22, height 1.727 m (5' 8 ), weight 106 kg (233 lb 0.4 oz), SpO2 94 %. Physical Exam General Appearance: awake, alert, oriented, in no acute distress Skin: skin color, texture, turgor are normal, chronic skin lesion at the dorsal aspect of the left foot Head/Face: NCAT Eyes: Pupils- PERRL Ears: External- normal and Hearing- bilateral- normal to conversation Mouth/Throat: Mucosa moist, no lesions Neck: neck- supple, no mass, non-tender Lungs: Normal expansion. Clear to auscultation. No rales, rhonchi, or wheezing. Heart: Heart sounds are normal. Regular rate and rhythm without murmur, gallop or rub. Abdomen: Soft, non-tender, normal bowel sounds Musculoskeletal: Strength normal, no cyanosis, clubbing or edema, right below- knee amputation Neurologic: Alert and oriented x 3, strength and sensation grossly normal Assessment/Plan Principal Problem: PTSD (post-traumatic stress disorder) Active Problems: Type 2 diabetes mellitus Hypertension Anemia Chronic ulcer of left foot Occipital neuralgia of left side Chronic kidney disease, stage III (moderate) 1. Posttraumatic stress disorder in addition to depressive disorder with reported homicidal ideation and aggressive behavior on admission but not anymore. Pending ECF placement. To be discharged to ECF whenever the arrangement is completed. 2. Wound at the dorsal aspect of the foot. Continue current care. Reported on admission. Most likely secondary to reaction to foot strap at the assisted 3. Type 2 diabetes mellitus. Continue monitor blood sugar numbers on regular basis with insulin sliding scale. Has been well controlled 4. Urinary retention with chronic Todd catheter. To be exchanged every 4 weeks. It was done less than 3 weeks ago. 5. Occipital neuralgia. Already seen by the neurologist. Continue current management * Jorge Hernandez, OT - 06/29/2022 10:53 AM EDT Occupational Therapy Occupational Therapy Treatment Patient Name: Mikayla Pappas Today's Date: 06/29/2022 Subjective Subjective: RN consent to see patient for OT tx. Patient agreeable to tx. After tx in room in recliner call light/tray table within reach alarm on hooked to patient. Problem List Patient Active Problem List Diagnosis Type 2 diabetes mellitus with right diabetic foot ulcer Depression Type 2 diabetes mellitus WPW (Atptz-Kmzbabadc-Nbwko syndrome) Stroke ([facility]/HCC) Hypertension Orthostatic hypotension Right bundle branch block Obesity LORENA (obstructive sleep apnea) Diabetic neuropathy GERD (gastroesophageal reflux disease) Anemia Chronic ulcer of left foot Abnormal EKG Abnormal gait Amputated below knee (CMS/HCC) Amputated toe of right foot At risk for falls At risk for venous thromboembolism (VTE) Cellulitis, unspecified Chest pain Elevated blood-pressure reading, without diagnosis of hypertension Elevated C-reactive protein (CRP) Elevated troponin Encounter for change or removal of nonsurgical wound dressing Gross hematuria Hypercholesterolemia Hyperglycemia due to type 2 diabetes mellitus ([facility]/HCC) Hypo-osmolality and hyponatremia Hypospadias, penile Impacted cerumen Impaired cognition Impairment of balance Neurogenic bladder Neuropathy Other specified postprocedural states Overactive bladder Personal history of other endocrine, nutritional and metabolic disease Personal history of transient ischemic attack (TIA), and cerebral infarction without residual deficits Presence of urogenital implants Recurrent major depression in remission Sepsis Tubulo-interstitial nephritis, not specified as acute or chronic Unspecified hydronephrosis Urinary tract infection, site not specified Weakness PTSD (post-traumatic stress disorder) Occipital neuralgia of left side Chronic kidney disease, stage III (moderate) Pain: 0/10 Objective General Visit Information: OT Last Visit OT Received On: 06/29/22 General Treatment Duration (min): 13 Minutes Response to Previous Treatment: Patient with no complaints from previous session Family/Caregiver Present: No ADL Assessment: Grooming Grooming Level of Assistance: Setup Grooming Where Assessed: Chair Grooming Comments: Patient brushed hair, washed face and hands with setup seated in recliner. Bathing Grooming Level of Assistance: Setup UE Bathing Level of Assistance: Setup UE Bathing Where Assessed: Chair UE Bathing Comments: Patient completed UB bathing with setup overall seated in recliner. Verbal cues to initiate tasks. Able to attend to tasks once initiated. LE Bathing Level of Assistance: Minimum assistance LE Bathing Where Assessed: Chair LE Bathing Comments: Patient washed LLE/ upper part of RLE (R BKA). Reports already washing bottom-anticipate A carli/buttocks area due to per notes min/Mod A sit to stand for balance. Dressing UE Dressing Level of Assistance: Setup UE Dressing Where Assessed: Chair UE Dressing Comments: Setup overall to doff gown and don new gown. IADL Assessment: Splinting and Casting: Treatment: Patient received in room in recliner. Tx details as above. All tx for inc overall activity tolerance/endurance and inc indp ADLS/IADLs. Verbal cues to initiate tasks and stay awake throughout. Able to attend to tasks after initiated. Assessment/Plan Continue w/ OT POC. Goals: Multi-Disciplinary Problems (from Occupational Therapy) Active Problems Problem: Balance Start Date: 06/22/22 Goal Start Date End Date LTG - Patient will demonstrate Intervention to enhance balance for safe completion of daily activities 06/22/22 -- Problem: Dressings Lower Extremities Start Date: 06/22/22 Goal Start Date End Date LTG - Patient will utilize adaptive techniques/equipment to dress lower body 06/22/22 -- Problem: Grooming Start Date: 06/22/22 Goal Start Date End Date LTG - Patient will complete daily grooming tasks 06/22/22 -- Timed Code Treatment Minutes Self Care/Home Management (ADLs) Time Entry: 13 Untimed Code Treatment Minutes Total Treatment Time Start Time: 1053 Stop Time: 1106 Time Calculation (min): 13 min The skills of this therapist were necessary for the patient to work toward completing their goals during today s therapy session. In the event of this patient s discharge [facility] prior to completingtherapy services, this note will stand as the current OT Discharge Summary. * Marco Kelley PTA - 06/29/2022 8:56 AM EDT Physical Therapy Physical Therapy Treatment Patient Name: Mikayla Pappas Today's Date: 06/29/2022 Subjective Pt was cleared to participate in PT today by nursing. Pt resting in bed upon arrival to room and agrees to participate in PT today with encouragement. Upon completion of session pt sits inrecliner at bedside with LE elevated, alarm on, call light/phone and all other needs in reach. Patient Active Problem List Diagnosis Type 2 diabetes mellitus with right diabetic foot ulcer Depression Type 2 diabetes mellitus WPW (Fkaib-Dnwexfhdj-Epywg syndrome) Stroke (CMS/HCC) Hypertension Orthostatic hypotension Right bundle branch block Obesity LORENA (obstructive sleep apnea) Diabetic neuropathy GERD (gastroesophageal reflux disease) Anemia Chronic ulcer of left foot Abnormal EKG Abnormal gait Amputated below knee (CMS/HCC) Amputated toe of right foot At risk for falls At risk for venous thromboembolism (VTE) Cellulitis, unspecified Chest pain Elevated blood-pressure reading, without diagnosis of hypertension Elevated C-reactive protein (CRP) Elevated troponin Encounter for change or removal of nonsurgical wound dressing Gross hematuria Hypercholesterolemia Hyperglycemia due to type 2 diabetes mellitus (CMS/HCC) Hypo-osmolality and hyponatremia Hypospadias, penile Impacted cerumen Impaired cognition Impairment of balance Neurogenic bladder Neuropathy Other specified postprocedural states Overactive bladder Personal history of other endocrine, nutritional and metabolic disease Personal history of transient ischemic attack (TIA), and cerebral infarction without residual deficits Presence of urogenital implants Recurrent major depression in remission Sepsis Tubulo-interstitial nephritis, not specified as acute or chronic Unspecified hydronephrosis Urinary tract infection, site not specified Weakness PTSD (post-traumatic stress disorder) Occipital neuralgia of left side Chronic kidney disease, stage III (moderate) Pain Objective General Visit Information: PT Received On: 06/29/22 Response to Previous Treatment: Patient with no complaints from previous session. General Assessments: Treatment: Therapeutic Activity: Therapeutic Activity?: Yes -: Pt resting in bed upon arrival to room. Bed mobility completed today transfers supine to sit at EOB with SBA use of bedrails and slow movements, sits at EOB with good balance. First attempt to stand unsuccessful with pt attempting to pull up using walker and only able to barely clear mattress. Mauriloi walton sit to stand with Mod A use of FWW and able to rise from elevated bed on second attempt today aftercues. Transfer bed to recliner with Mod assist FWW pivot on (L) LE. Pt attempts to complete hop to gait but unable to advance to ambulation at this time unsteady, prosthesis not present with attempt and sits in recliner at bedside with poor eccentric control as his breakfast arrives. Bed Mobility: Bed Mobility: Yes Bed Mobility From 1: Supine Bed Mobility Type 1: To Bed Mobility to 1: Short sit Level of Assistance 1: Close supervision Bed Mobility Comments 1: use of bedrail and decreased time needed today. Transfers: Transfer?: Yes Transfer From 1: Bed Transfer Type 1: To Transfer to 1: Chair with arms Technique 1: Stand pivot, To left Transfer Device 1: FWW Transfer Level of Assistance 1: Moderate assistance Trials/Comments 1: required 2 attempts up to standing position with second attempt gave vc's to shift wt forward slightly with standing (nose over toes), and to push up from bed at initiation. Bed also elevated to assist with transition. Assessment/Plan Assessment Response to Today's Session: Pt tolerates interventions well today with improved bed mobility, somewhat weak and lethargic. Plan Treatment/Interventions: Functional transfer training, Equipment eval/education, Bed mobility, Compensatory technique education PT - Next Appointment: 06/30/22 Goals: Multi-Disciplinary Problems (from Physical Therapy) Active Problems Problem: PT Misc Start Date: 05/08/22 Goal Start Date End Date [facility] 1 05/08/22 -- Goal Details: Pt will SPT from bed to w/c min A w/ most appropriate assistive device. Goal Start Date End Date [facility] 05/08/22 -- Goal Details: Pt will stand for 30 sec CGA with most appropriate assistive device. Timed Code Treatment Minutes Untimed Code Treatment Minutes Total Treatment Time The skills of this therapist were necessary for the patient to work toward completing their goals during today s therapy session. In the event of this patient s discharge from [facility] prior to completingtherapy services, this note will stand as the current PT Discharge Summary. * Zachery Coombs MD - 06/28/2022 4:03 PM EDT Subjective The patient was seen and evaluated by me today. Denies any specific complaint. Still pending ECF placement. Posttraumatic stress disorder with behavioral disturbances documented in admission but not anymore. Reported bowel movement on regular basis now No lab exists for component: LABALBU Objective Physical Exam Last Recorded Vitals Blood pressure 151/73, pulse 75, temperature 36.4 C (97.6 F), temperature source Oral, resp. rate 22, height 1.727 m (5' 8 ), weight 105 kg (231 lb 14.8 oz), SpO2 96 %. Physical Exam General Appearance: awake, alert, oriented, in no acute distress Skin: skin color, texture, turgor are normal, wound to the dorsal aspect of the left foot documented in admission Head/Face: NCAT Eyes: Pupils- PERRL Ears: External- normal and Hearing- bilateral- normal to conversation Mouth/Throat: Mucosa moist, no lesions Neck: neck- supple, no mass, non-tender Lungs: Normal expansion. Clear to auscultation. No rales, rhonchi, or wheezing. Heart: Heart sounds are normal. Regular rate and rhythm without murmur, gallop or rub. Abdomen: Soft, non-tender, normal bowel sounds Musculoskeletal: Strength normal, no cyanosis, clubbing or edema, right below- knee amputation Neurologic: Alert and oriented x 3, strength and sensation grossly normal Assessment/Plan Principal Problem: PTSD (post-traumatic stress disorder) Active Problems: Type 2 diabetes mellitus Hypertension Anemia Chronic ulcer of left foot Occipital neuralgia of left side Chronic kidney disease, stage III (moderate) 1. Posttraumatic stress disorder in addition to depressive disorder with reported homicidal ideation and aggressive behavior on admission but not anymore. Pending ECF placement. To be discharged to ECF whenever the arrangement is completed. 2. Wound at the dorsal aspect of the foot. Continue current care. Reported on admission. Most likely secondary to reaction to foot strap at the assisted 3. Type 2 diabetes mellitus. Continue monitor blood sugar numbers on regular basis with insulin sliding scale. Has been well controlled 4. Urinary retention with chronic Todd catheter. To be exchanged every 4 weeks. It was done less than 3 weeks ago. 5. Occipital neuralgia. Already seen by the neurologist. Continue current management * Zachery Coombs MD - 06/27/2022 2:36 PM EDT Subjective The patient was seen and evaluated by me today. Complaining of being constipated. Pending ECF placement. To be discharged whenever the arrangement is completed. Posttraumatic stress disorder with behavior disturbances initially and reported suicidal ideation but not anymore. No lab exists for component: LABALBU Objective Physical Exam Last Recorded Vitals Blood pressure 133/73, pulse 71, temperature 36.6 C (97.9 F), temperature source Oral, resp. rate 20, height 1.727 m (5' 8 ), weight 105 kg (231 lb 7.7 oz), SpO2 97 %. Physical Exam General Appearance: awake, alert, oriented, in no acute distress Skin: skin color, texture, turgor are normal except rash at the dorsal aspect of the left leg Head/Face: NCAT Eyes: Pupils- PERRL Ears: External- normal and Hearing- bilateral- normal to conversation Mouth/Throat: Mucosa moist, no lesions Neck: neck- supple, no mass, non-tender Lungs: Normal expansion. Clear to auscultation. No rales, rhonchi, or wheezing. Heart: Heart sounds are normal. Regular rate and rhythm without murmur, gallop or rub. Abdomen: Soft, non-tender, normal bowel sounds Musculoskeletal: Strength normal, no cyanosis, clubbing or edema. Right below- knee amputation Neurologic: Alert and oriented x 3, strength and sensation grossly normal Assessment/Plan Principal Problem: PTSD (post-traumatic stress disorder) Active Problems: Type 2 diabetes mellitus Hypertension Anemia Chronic ulcer of left foot Occipital neuralgia of left side Chronic kidney disease, stage III (moderate) 1. Posttraumatic stress disorder in addition to depressive disorder with reported homicidal ideation and aggressive behavior on admission but not anymore. Pending ECF placement. To be discharged to ECF whenever the arrangement is completed. 2. Wound at the dorsal aspect of the foot. Continue current care. Reported on admission. Most likely secondary to reaction to foot strap at the assisted 3. Type 2 diabetes mellitus. Continue monitor blood sugar numbers on regular basis with insulin sliding scale. Has been well controlled 4. Urinary retention with chronic Todd catheter. To be exchanged every 4 weeks. It was done less than 3 weeks ago. 5. Occipital neuralgia. Already seen by the neurologist. Continue current management * Marco Kelley PTA - 06/27/2022 10:46 AM EDT Physical Therapy Physical Therapy Treatment Patient Name: Mikayla Pappas Today's Date: 06/27/2022 Subjective Pt was cleared to participate in PT today by nursing. Pt resting in bed upon arrival to room and agrees to participate in PT today. Upon completion of session pt sits in recliner at bedside and positioned for comfort with alarm on ,call light/phone and all other needs in reach. Patient Active Problem List Diagnosis Type 2 diabetes mellitus with right diabetic foot ulcer Depression Type 2 diabetes mellitus WPW (Fugqo-Tkoazsnqu-Fjgyi syndrome) Stroke (CMS/HCC) Hypertension Orthostatic hypotension Right bundle branch block Obesity LORENA (obstructive sleep apnea) Diabetic neuropathy GERD (gastroesophageal reflux disease) Anemia Chronic ulcer of left foot Abnormal EKG Abnormal gait Amputated below knee (CMS/HCC) Amputated toe of right foot At risk for falls At risk for venous thromboembolism (VTE) Cellulitis, unspecified Chest pain Elevated blood-pressure reading, without diagnosis of hypertension Elevated C-reactive protein (CRP) Elevated troponin Encounter for change or removal of nonsurgical wound dressing Gross hematuria Hypercholesterolemia Hyperglycemia due to type 2 diabetes mellitus ([facility]/HCC) Hypo-osmolality and hyponatremia Hypospadias, penile Impacted cerumen Impaired cognition Impairment of balance Neurogenic bladder Neuropathy Other specified postprocedural states Overactive bladder Personal history of other endocrine, nutritional and metabolic disease Personal history of transient ischemic attack (TIA), and cerebral infarction without residual deficits Presence of urogenital implants Recurrent major depression in remission Sepsis Tubulo-interstitial nephritis, not specified as acute or chronic Unspecified hydronephrosis Urinary tract infection, site not specified Weakness PTSD (post-traumatic stress disorder) Occipital neuralgia of left side Chronic kidney disease, stage III (moderate) Pain Objective General Visit Information: PT Received On: 06/27/22 Response to Previous Treatment: Patient with no complaints from previous session. General Assessments: Treatment: Therapeutic Exercise: Therapeutic Exercise?: Yes -: Supine yoandy LE ex x 10 each: QS, GS, SLR, Hip abd, SLR and knee flexion; L ankle pumps x 20 Therapeutic Activity: Therapeutic Activity?: Yes -: Pt resting in bed upon arrival to room. Pt completes LE ther ex with no incrase in discomfort level expresed. Bed mobility completed today trasnfers supine to sit at EOB with SBA use of bedrails and slow movements. Transfer sit to stand with Min assist use of FWW and able to rise from elevated bed on first attempt today. Transfer bed to recliner with Mod assist FWW pivot on (L) LE. Pt attemptsto complete hop to gait but unable to advance to ambulation at this time unsteady with attempt and sits in recliner at bedside with poor eccnetric control. Bed Mobility: Bed Mobility: Yes Bed Mobility From 1: Supine Bed Mobility Type 1: To Bed Mobility to 1: Short sit Level of Assistance 1: Close supervision Bed Mobility Comments 1: use of bedrail and extra time needed Transfers: Transfer?: Yes Transfer From 1: Bed Transfer Type 1: To Transfer to 1: Chair with arms Technique 1: Stand pivot, To left Transfer Device 1: FWW Transfer Level of Assistance 1: Moderate assistance Assessment/Plan Assessment Response to Today's Session: Pt tolerates interventions well today with improved bed mobiltiy. Plan Treatment/Interventions: Functional transfer training, LE strengthening/ROM, Endurance training, Equipment eval/education, Bed mobility, Gait training, Compensatory technique education PT - Next Appointment: 06/28/22 Goals: Multi-Disciplinary Problems (from Physical Therapy) Active Problems Problem: PT [facility] Start Date: 05/08/22 Goal Start Date End Date [facility] 1 05/08/22 -- Goal Details: Pt will SPT from bed to w/c min A w/ most appropriate assistive device. Goal Start Date End Date [facility] 2 05/08/22 -- Goal Details: Pt will stand for 30 sec CGA with most appropriate assistive device. Timed Code Treatment Minutes Untimed Code Treatment Minutes Total Treatment Time The skills of this therapist were necessary for the patient to work toward completing their goals during today s therapy session. In the event of this patient s discharge from [facility] prior to completingtherapy services, this note will stand as the current PT Discharge Summary. * JEAN CLAUDE Reardon - 06/27/2022 10:00 AM EDT Occupational Therapy Pt was laying in bed upon arrival of therapist and was already working with POCT on patient care. Therapist will attempt Occupational Therapy at another time and date. * Marco Kelley PTA - 06/27/2022 9:58 AM EDT Physical Therapy An attempt was made to see this pt today for PT. Pt unavailable at this time pt attended to by POCor pt care. PT will follow up with this pt at another time/date to offer PT services as needed during his stay to progress towards goals as appropriate. * Zachery Coombs MD - 06/26/2022 2:06 PM EDT Subjective The patient was seen and evaluated by me today. Denies any complaints. Up in chair with maximum assist. Pending ECF placement. No lab exists for component: LABALBU Objective Physical Exam Last Recorded Vitals Blood pressure 149/74, pulse 75, temperature 36.6 C (97.9 F), temperature source Oral, resp. rate 16, height 1.727 m (5' 8 ), weight 105 kg (231 lb 14.8 oz), SpO2 94 %. Physical Exam General Appearance: awake, alert, oriented, in no acute distress Skin: skin color, texture, turgor are normal, chronic wound to the dorsal aspect of the left foot without evidence of secondary infection Head/Face: NCAT Eyes: Pupils- PERRL Ears: External- normal and Hearing- bilateral- normal to conversation Mouth/Throat: Mucosa moist, no lesions Neck: neck- supple, no mass, non-tender Lungs: Normal expansion. Clear to auscultation. No rales, rhonchi, or wheezing. Heart: Heart sounds are normal. Regular rate and rhythm without murmur, gallop or rub. Abdomen: Soft, non-tender, normal bowel sounds Musculoskeletal: Strength normal, no cyanosis, clubbing or edema. Right below- knee amputation Neurologic: Alert and oriented x 3, strength and sensation grossly normal Assessment/Plan Principal Problem: PTSD (post-traumatic stress disorder) Active Problems: Type 2 diabetes mellitus Hypertension Anemia Chronic ulcer of left foot Occipital neuralgia of left side Chronic kidney disease, stage III (moderate) 1. Posttraumatic stress disorder in addition to depressive disorder with reported homicidal ideation and aggressive behavior on admission but not anymore. Pending ECF placement. To be discharged to ECF whenever the arrangement is completed. 2. Wound at the dorsal aspect of the foot. Continue current care. Reported on admission. Most likely secondary to reaction to foot strap at the assisted 3. Type 2 diabetes mellitus. Continue monitor blood sugar numbers on regular basis with insulin sliding scale. Has been well controlled 4. Urinary retention with chronic Todd catheter. To be exchanged every 4 weeks. It was done less than 3 weeks ago. 5. Occipital neuralgia. Already seen by the neurologist. Continue current management * EDWIN Pfeiffer - 06/26/2022 12:38 PM EDT Occupational Therapy Occupational Therapy Treatment Patient Name: Mikayla Pappas Today's Date: 06/26/2022 Subjective Subjective: Pt. received seated in room in chair. Pt. agreeable to OT tx. session. Pt. left seated in chair with phone/ call light in place. Alarm left on pt. Problem List Patient Active Problem List Diagnosis Type 2 diabetes mellitus with right diabetic foot ulcer Depression Type 2 diabetes mellitus WPW (Qhuwk-Azbikoaui-Hnziy syndrome) Stroke (CMS/HCC) Hypertension Orthostatic hypotension Right bundle branch block Obesity LORENA (obstructive sleep apnea) Diabetic neuropathy GERD (gastroesophageal reflux disease) Anemia Chronic ulcer of left foot Abnormal EKG Abnormal gait Amputated below knee (CMS/HCC) Amputated toe of right foot At risk for falls At risk for venous thromboembolism (VTE) Cellulitis, unspecified Chest pain Elevated blood-pressure reading, without diagnosis of hypertension Elevated C-reactive protein (CRP) Elevated troponin Encounter for change or removal of nonsurgical wound dressing Gross hematuria Hypercholesterolemia Hyperglycemia due to type 2 diabetes mellitus (CMS/HCC) Hypo-osmolality and hyponatremia Hypospadias, penile Impacted cerumen Impaired cognition Impairment of balance Neurogenic bladder Neuropathy Other specified postprocedural states Overactive bladder Personal history of other endocrine, nutritional and metabolic disease Personal history of transient ischemic attack (TIA), and cerebral infarction without residual deficits Presence of urogenital implants Recurrent major depression in remission Sepsis Tubulo-interstitial nephritis, not specified as acute or chronic Unspecified hydronephrosis Urinary tract infection, site not specified Weakness PTSD (post-traumatic stress disorder) Occipital neuralgia of left side Chronic kidney disease, stage III (moderate) Pain: Pain Assessment Tool Pain Assessment: No/denies pain Pain Score: 0 - No pain Objective General Visit Information: OT Last Visit OT Received On: 06/26/22 General Treatment Duration (min): 8 Minutes Family/Caregiver Present: No ADL Assessment: Grooming Grooming Level of Assistance: Setup Grooming Where Assessed: Chair Treatment: Therapeutic Activity: Therapeutic Activity?: Yes -: Pt. agreeable to OT tx session on this date. Pt. noted to have increased tiredness and continuedto fall asleep during OT tx. session. Pt. agreeable to wash face with warm wash cloth with set up Awhile seated in chair. Pt. groomed hair with set up A. Pt. requested an addtional blanket and blanket was provided. Pt. perference to hold off from further ADLs and OT tx. until tommorrow. Alarm was placed on pt. Assessment/Plan OT Assessment Prognosis: Fair Barriers to Discharge: None Evaluation/Treatment Tolerance: Patient limited by fatigue (Pt. limited by increased tiredness) Medical Staff Made Aware: Yes Plan Treatment Interventions: ADL retraining, Functional transfer training, UE strengthening/ROM, Endurance training, Patient/family training, Equipment evaluation/education OT Plan: Skilled OT OT Discharge Recommendations: intermediate facility placement OT - OK to Discharge: Yes Goals: Multi-Disciplinary Problems (from Occupational Therapy) Active Problems Problem: Balance Start Date: 06/22/22 Goal Start Date End Date L[facility] - Patient will demonstrate Intervention to enhance balance for safe completion of daily activities 06/22/22 -- Problem: Dressings Lower Extremities Start Date: 06/22/22 Goal Start Date End Date L[facility] - Patient will utilize adaptive techniques/equipment to dress lower body 06/22/22 -- Problem: Grooming Start Date: 06/22/22 Goal Start Date End Date LTG - Patient will complete daily grooming tasks 06/22/22 -- Timed Code Treatment Minutes Self Care/Home Management (ADLs) Time Entry: 8 Untimed Code Treatment Minutes Total Treatment Time Start Time: 1238 Stop Time: 1246 Time Calculation (min): 8 min The skills of this therapist were necessary for the patient to work toward completing their goals during today s therapy session. In the event of this patient s discharge from [facility] prior to completingtherapy services, this note will stand as the current OT Discharge Summary. * Ellyn Scott - 06/26/2022 10:05 AM EDT Patient recommended by nurse for massage therapy. Patient is seated in recliner chair with feet elevated, he is agreeable to massage therapy and states he has tightness in the left leg and ankle area. Friction and kneading applied to the left leg distal from knee and to the left ankle area. Patientis relaxed with his eyes closed through session and tolerates well. Call light is in reach of patient and he states no other needs at this time. * Marco Kelley, [employer] - 06/26/2022 9:42 AM EDT Physical Therapy Physical Therapy Treatment Patient Name: Mikayla Pappas Today's Date: 06/26/2022 Subjective Pt was cleared to participate in PT today by nursing. Pt resting in bed upon arrival to room and agrees to participate in PT today. Upon completion of session pt returns to bed and positioned for comfort with alarm on, call light/phone and all other needs in reach. Patient Active Problem List Diagnosis Type 2 diabetes mellitus with right diabetic foot ulcer Depression Type 2 diabetes mellitus WPW (Npnlg-Jzcaktgsg-Mwqvp syndrome) Stroke (CMS/HCC) Hypertension Orthostatic hypotension Right bundle branch block Obesity LORENA (obstructive sleep apnea) Diabetic neuropathy GERD (gastroesophageal reflux disease) Anemia Chronic ulcer of left foot Abnormal EKG Abnormal gait Amputated below knee (CMS/HCC) Amputated toe of right foot At risk for falls At risk for venous thromboembolism (VTE) Cellulitis, unspecified Chest pain Elevated blood-pressure reading, without diagnosis of hypertension Elevated C-reactive protein (CRP) Elevated troponin Encounter for change or removal of nonsurgical wound dressing Gross hematuria Hypercholesterolemia Hyperglycemia due to type 2 diabetes mellitus (CMS/HCC) Hypo-osmolality and hyponatremia Hypospadias, penile Impacted cerumen Impaired cognition Impairment of balance Neurogenic bladder Neuropathy Other specified postprocedural states Overactive bladder Personal history of other endocrine, nutritional and metabolic disease Personal history of transient ischemic attack (TIA), and cerebral infarction without residual deficits Presence of urogenital implants Recurrent major depression in remission Sepsis Tubulo-interstitial nephritis, not specified as acute or chronic Unspecified hydronephrosis Urinary tract infection, site not specified Weakness PTSD (post-traumatic stress disorder) Occipital neuralgia of left side Chronic kidney disease, stage III (moderate) Pain Objective General Visit Information: PT Received On: 06/26/22 General Assessments: Treatment: Therapeutic Exercise: Therapeutic Exercise?: Yes -: Supine yoandy LE ex x 10 each: QS, GS, SLR, Hip abd, SLR and knee flexion; L ankle pumps x 20 Therapeutic Activity: Therapeutic Activity?: Yes -: Pt resting in bed upon arrival to room. Bed mobility completed supine to sit at EOB with min assist use of bedrail and extra time needed. Sit to stand on first attempt max assist with pt unable toattain standing and returns to seated at EOB. Sit to stand from bed on second attempt braces against bed to rise with Mod A and cues needed to shift weight anterior and forward press of hips to promote upright posture. Pt pivots on heel of (L) foot to complete SPT Mod A from bed to recliner and sits with poor eccentric control. Pt completes LE/UE ther ex with no increase in discomfort expressed.Pt positioned for comfort in recliner at bedside with appropriate safety measures in place, call light/phone and all other needs in reach. Bed Mobility: Bed Mobility: Yes Bed Mobility From 1: Supine Bed Mobility Type 1: To Bed Mobility to 1: Short sit Level of Assistance 1: Minimum assistance Transfers: Transfer?: Yes Transfer From 1: Bed Transfer Type 1: To Transfer to 1: Chair with arms Technique 1: Stand pivot Transfer Device 1: FWW Transfer Level of Assistance 1: Moderate assistance Assessment/Plan Assessment Response to Today's Session: Pt appears to be fatigued and lethargic today. Plan Treatment/Interventions: Functional transfer training, LE strengthening/ROM, Endurance training, Equipment eval/education, Bed mobility, Compensatory technique education PT - Next Appointment: 06/27/22 Goals: Multi-Disciplinary Problems (from Physical Therapy) Active Problems Problem: PT [facility] Start Date: 05/08/22 Goal Start Date End Date [facility] 1 05/08/22 -- Goal Details: Pt will SPT from bed to w/c min A w/ most appropriate assistive device. Goal Start Date End Date [facility] 2 05/08/22 -- Goal Details: Pt will stand for 30 sec CGA with most appropriate assistive device. Timed Code Treatment Minutes Untimed Code Treatment Minutes Total Treatment Time The skills of this therapist were necessary for the patient to work toward completing their goals during today s therapy session. In the event of this patient s discharge from [facility] prior to completingtherapy services, this note will stand as the current PT Discharge Summary. * Marco Kelley, YOU[employer] LIAISON OFFICER - 06/26/2022 8:59 AM EDT Physical Therapy An attempt was made to see this pt today for PT. Pt resting in bed upon arrival to room and defers PT until after he has breakfast and is cleaned up. PT will follow up with this pt at another time/date to offer PT services as needed during his stay to progress towards goals as appropriate. * Tabby Noyola RN - 06/25/2022 2:22 PM EDT Length of stay notification received. Pressure check completed at this time. Areas assessed: bilateral heels and ankles, bilateral elbows, buttocks and spine, bilateral shoulder blades, points are WNL. Dressing removed from left dorsal foot, assessed and redressed, no additional recommendations at this time. Patient encouraged to reposition at least q2hrs for prevention of pressure injury. * Marco Kelley PTA - 06/25/2022 10:27 AM EDT Physical Therapy Physical Therapy Treatment Patient Name: Mikayla Pappas Today's Date: 06/25/2022 Subjective Pt was cleared to participate in PT today by nursing. Pt resting in bed upon arrival to room and and agrees to participate in PT today. Upon completion of session pt sits in recliner at bedside and positioned for comfort with alarm on, call light/phone and all other needs in reach. Patient Active Problem List Diagnosis Type 2 diabetes mellitus with right diabetic foot ulcer Depression Type 2 diabetes mellitus WPW (Nryme-Bzftmbwiq-Exkrp syndrome) Stroke (CMS/HCC) Hypertension Orthostatic hypotension Right bundle branch block Obesity LORENA (obstructive sleep apnea) Diabetic neuropathy GERD (gastroesophageal reflux disease) Anemia Chronic ulcer of left foot Abnormal EKG Abnormal gait Amputated below knee (CMS/HCC) Amputated toe of right foot At risk for falls At risk for venous thromboembolism (VTE) Cellulitis, unspecified Chest pain Elevated blood-pressure reading, without diagnosis of hypertension Elevated C-reactive protein (CRP) Elevated troponin Encounter for change or removal of nonsurgical wound dressing Gross hematuria Hypercholesterolemia Hyperglycemia due to type 2 diabetes mellitus (CMS/HCC) Hypo-osmolality and hyponatremia Hypospadias, penile Impacted cerumen Impaired cognition Impairment of balance Neurogenic bladder Neuropathy Other specified postprocedural states Overactive bladder Personal history of other endocrine, nutritional and metabolic disease Personal history of transient ischemic attack (TIA), and cerebral infarction without residual deficits Presence of urogenital implants Recurrent major depression in remission Sepsis Tubulo-interstitial nephritis, not specified as acute or chronic Unspecified hydronephrosis Urinary tract infection, site not specified Weakness PTSD (post-traumatic stress disorder) Occipital neuralgia of left side Chronic kidney disease, stage III (moderate) Pain Objective General Visit Information: PT Received On: 06/25/22 Response to Previous Treatment: Patient reporting fatigue but able to participate. General Assessments: Treatment: Therapeutic Exercise: Therapeutic Exercise?: Yes -: Supine yoandy LE ex x 10 each: QS, GS, SLR, Hip abd, SLR and knee flexion; L ankle pumps x 20 Therapeutic Activity: Therapeutic Activity?: Yes -: Pt resting in bed upon arrival to room. Bed mobility completed supine to sit at EOB with min assist use of bedrail and extra time needed. Sit to stand from bed braces against bed to rise with Mod A. Pt pivots on heel of (L) foot to complete SPT Mod A from bed to recliner and sits with poor eccentric control. Pt completes LE/UE ther ex with no increase in discomfort expressed.Pt positioned for comfort in recliner at bedside with appropriate safety measures in place, call light/phone and all other needs in reach. Bed Mobility: Bed Mobility: Yes Bed Mobility From 1: Supine Bed Mobility Type 1: To Bed Mobility to 1: Short sit Level of Assistance 1: Minimum assistance Transfers: Transfer?: Yes Transfer From 1: Bed Transfer Type 1: To Transfer to 1: Chair with arms Technique 1: Stand pivot Transfer Device 1: FWW Transfer Level of Assistance 1: Moderate assistance Trials/Comments 1: required 2 attempts up to standing position with second attempt gave vc's to shift wt forward slightly with standing (nose over toes) Assessment/Plan Assessment Response to Today's Session: Patient tolerated session this date but did require Mod A for sit>stand and SPT transfers demonstrating increased fatigue Plan Treatment/Interventions: Functional transfer training, LE strengthening/ROM, Endurance training, Equipment eval/education, Bed mobility, Compensatory technique education PT - Next Appointment: 06/26/22 Goals: Multi-Disciplinary Problems (from Physical Therapy) Active Problems Problem: PT Misc Start Date: 05/08/22 Goal Start Date End Date [facility] 1 05/08/22 -- Goal Details: Pt will SPT from bed to w/c min A w/ most appropriate assistive device. Goal Start Date End Date [facility] 2 05/08/22 -- Goal Details: Pt will stand for 30 sec CGA with most appropriate assistive device. Timed Code Treatment Minutes Untimed Code Treatment Minutes Total Treatment Time The skills of this therapist were necessary for the patient to work toward completing their goals during today s therapy session. In the event of this patient s discharge from [facility] prior to completingtherapy services, this note will stand as the current PT Discharge Summary. * Zachery Coombs MD - 06/25/2022 10:05 AM EDT Subjective The patient was seen and evaluated by me today. Was relatively comfortable. Sleeping but easy to bearoused. Denies any significant complaints. Blood sugar numbers have been well controlled Severe deconditioning pending ECF placement. Initially was admitted because of behavioral disturbances and suicidal ideation but not anymore. No lab exists for component: LABALBU Objective Physical Exam Last Recorded Vitals Blood pressure 158/79, pulse 76, temperature 36.7 C (98.1 F), temperature source Oral, resp. rate 24, height 1.727 m (5' 8 ), weight 105 kg (231 lb 0.7 oz), SpO2 95 %. Physical Exam General Appearance: awake, alert, oriented, in no acute distress Skin: skin color, texture, turgor are normal. Stable skin lesion of the dorsal aspect of the left foot present admission Head/Face: NCAT Eyes: Pupils- PERRL Ears: External- normal and Hearing- bilateral- normal to conversation Mouth/Throat: Mucosa moist, no lesions Neck: neck- supple, no mass, non-tender Lungs: Normal expansion. Clear to auscultation. No rales, rhonchi, or wheezing. Heart: Heart sounds are normal. Regular rate and rhythm without murmur, gallop or rub. Abdomen: Soft, non-tender, normal bowel sounds Musculoskeletal: Strength normal, no cyanosis, clubbing or edema. Right below- knee amputation Neurologic: Alert and oriented x 3, strength and sensation grossly normal Assessment/Plan Principal Problem: PTSD (post-traumatic stress disorder) Active Problems: Type 2 diabetes mellitus Hypertension Anemia Chronic ulcer of left foot Occipital neuralgia of left side Chronic kidney disease, stage III (moderate) 1. Posttraumatic stress disorder in addition to depressive disorder with reported homicidal ideation and aggressive behavior on admission but not anymore. Pending ECF placement. To be discharged to ECF whenever the arrangement is completed. 2. Wound at the dorsal aspect of the foot. Continue current care. Reported on admission. Most likely secondary to reaction to foot strap at the assisted 3. Type 2 diabetes mellitus. Continue monitor blood sugar numbers on regular basis with insulin sliding scale. Has been well controlled 4. Urinary retention with chronic Todd catheter. To be exchanged every 4 weeks. It was done less than 3 weeks ago. 5. Occipital neuralgia. Already seen by the neurologist. Continue current management * Marco Kelley PTA - 06/25/2022 9:12 AM EDT Physical Therapy An attempt was made to see this pt today for PT. Pt resting in bed upon arrival to room and requests for PT to returns in about 30 minutes. PT will follow up with this pt at another time/date to offer PT services as needed to progress towards goals as appropriate during his stay. * Zachery Coombs MD - 06/24/2022 3:20 PM EDT Subjective The patient was seen and evaluated by me today. No new complaints. Pending ECF placement. Vitals have been stable Results from last 7 days Lab Units 06/18/22 0428 WBC AUTO 10*3/uL 7.6 HEMOGLOBIN g/dL 8.7* HEMATOCRIT % 24.9* PLATELETS AUTO 10*3/uL 203 Results from last 7 days Lab Units 06/18/22 0428 SODIUM mmol/L 142 POTASSIUM mmol/L 4.4 CHLORIDE mmol/L 110* CO2 mmol/L 27 BUN mg/dL 41* CREATININE mg/dL 1.5* CALCIUM mg/dL 9.2 Objective Physical Exam Last Recorded Vitals Blood pressure 132/72, pulse 69, temperature 36.3 C (97.4 F), temperature source Oral, resp. rate 18, height 1.727 m (5' 8 ), weight 105 kg (231 lb 4.2 oz), SpO2 96 %. Physical Exam General Appearance: awake, alert, oriented, in no acute distress Skin: skin color, texture, turgor are normal, lesion at the dorsal aspect of the left foot Head/Face: NCAT Eyes: Pupils- PERRL Ears: External- normal and Hearing- bilateral- normal to conversation Mouth/Throat: Mucosa moist, no lesions Neck: neck- supple, no mass, non-tender Lungs: Normal expansion. Clear to auscultation. No rales, rhonchi, or wheezing. Heart: Heart sounds are normal. Regular rate and rhythm without murmur, gallop or rub. Abdomen: Soft, non-tender, normal bowel sounds Musculoskeletal: Generalized weakness, right below-knee amputation no cyanosis, clubbing or edema Neurologic: Alert and oriented x 3, generalized fatigue and weakness Assessment/Plan Principal Problem: PTSD (post-traumatic stress disorder) Active Problems: Type 2 diabetes mellitus Hypertension Anemia Chronic ulcer of left foot Occipital neuralgia of left side Chronic kidney disease, stage III (moderate) 1. Posttraumatic stress disorder in addition to depressive disorder with reported homicidal ideation and aggressive behavior on admission but not anymore. Pending ECF placement. To be discharged to ECF whenever the arrangement is completed. 2. Wound at the dorsal aspect of the foot. Continue current care. Reported on admission. Most likely secondary to reaction to foot strap at the assisted 3. Type 2 diabetes mellitus. Continue monitor blood sugar numbers on regular basis with insulin sliding scale 4. Urinary retention with chronic Todd catheter. To be exchanged every 4 weeks. It was done less than 3 weeks ago. 5. Occipital neuralgia. Already seen by the neurologist. Continue current management * Zachery Coombs MD - 06/23/2022 4:40 PM EDT Subjective The patient was seen and evaluated by me today. Denies any specific complaints Pending ECF placement Results from last 7 days Lab Units 06/18/22 0428 WBC AUTO 10*3/uL 7.6 HEMOGLOBIN g/dL 8.7* HEMATOCRIT % 24.9* PLATELETS AUTO 10*3/uL 203 Results from last 7 days Lab Units 06/18/22 0428 SODIUM mmol/L 142 POTASSIUM mmol/L 4.4 CHLORIDE mmol/L 110* CO2 mmol/L 27 BUN mg/dL 41* CREATININE mg/dL 1.5* CALCIUM mg/dL 9.2 Objective Physical Exam Last Recorded Vitals Blood pressure 146/69, pulse 80, temperature 36.7 C (98.1 F), temperature source Oral, resp. rate 20, height 1.727 m (5' 8 ), weight 104 kg (229 lb 4.5 oz), SpO2 93 %. Physical Exam General Appearance: awake, alert, oriented, in no acute distress Skin: skin color, texture, turgor are normal, left foot skin lesion of the dorsal aspect present onadmission Head/Face: NCAT Eyes: Pupils- PERRL Ears: External- normal and Hearing- bilateral- normal to conversation Mouth/Throat: Mucosa moist, no lesions Neck: neck- supple, no mass, non-tender Lungs: Normal expansion. Clear to auscultation. No rales, rhonchi, or wheezing. Heart: Heart sounds are normal. Regular rate and rhythm without murmur, gallop or rub. Abdomen: Soft, non-tender, normal bowel sounds Musculoskeletal: Generalized fatigue and weakness, no cyanosis, clubbing or edema, right below-kneeamputation Neurologic: Alert and oriented x 3, generalized fatigue and weakness Assessment/Plan Principal Problem: PTSD (post-traumatic stress disorder) Active Problems: Type 2 diabetes mellitus Hypertension Anemia Chronic ulcer of left foot Occipital neuralgia of left side Chronic kidney disease, stage III (moderate) 1. Posttraumatic stress disorder in addition to depressive disorder with reported homicidal ideation and aggressive behavior on admission but not anymore. Pending ECF placement. To be discharged to ECF whenever the arrangement is completed. 2. Wound at the dorsal aspect of the foot. Continue current care. Reported on admission. Most likely secondary to reaction to foot strap at the assisted 3. Type 2 diabetes mellitus. Continue monitor blood sugar numbers on regular basis with insulin sliding scale 4. Urinary retention with chronic Todd catheter. To be exchanged every 4 weeks. It was done less than 3 weeks ago. 5. Occipital neuralgia. Already seen by the neurologist. Continue current management * Jada Kelly PTA - 06/23/2022 11:45 AM EDT Physical Therapy Physical Therapy Treatment Patient Name: Mikayla Pappas Today's Date: 06/23/2022 Subjective RN approved PT treatment and upon entering room patient in bed resting and agreed to participate in PT. Concluded treatment with patient sitting up in recliner chair with all needs in reach and chair alarm on. Patient Active Problem List Diagnosis Type 2 diabetes mellitus with right diabetic foot ulcer Depression Type 2 diabetes mellitus WPW (Yytzi-Znvfflfdw-Guvah syndrome) Stroke (CMS/HCC) Hypertension Orthostatic hypotension Right bundle branch block Obesity LORENA (obstructive sleep apnea) Diabetic neuropathy GERD (gastroesophageal reflux disease) Anemia Chronic ulcer of left foot Abnormal EKG Abnormal gait Amputated below knee (CMS/HCC) Amputated toe of right foot At risk for falls At risk for venous thromboembolism (VTE) Cellulitis, unspecified Chest pain Elevated blood-pressure reading, without diagnosis of hypertension Elevated C-reactive protein (CRP) Elevated troponin Encounter for change or removal of nonsurgical wound dressing Gross hematuria Hypercholesterolemia Hyperglycemia due to type 2 diabetes mellitus (CMS/HCC) Hypo-osmolality and hyponatremia Hypospadias, penile Impacted cerumen Impaired cognition Impairment of balance Neurogenic bladder Neuropathy Other specified postprocedural states Overactive bladder Personal history of other endocrine, nutritional and metabolic disease Personal history of transient ischemic attack (TIA), and cerebral infarction without residual deficits Presence of urogenital implants Recurrent major depression in remission Sepsis Tubulo-interstitial nephritis, not specified as acute or chronic Unspecified hydronephrosis Urinary tract infection, site not specified Weakness PTSD (post-traumatic stress disorder) Occipital neuralgia of left side Chronic kidney disease, stage III (moderate) Pain Pain Assessment Tool Pain Assessment: 0-10 Pain Score: 0 - No pain Objective General Visit Information: PT Received On: 06/23/22 General Assessments: Orientation Level: Oriented X4 Treatment: Therapeutic Exercise: -: Supine yoandy LE ex x 10 each: QS, GS, SLR, Hip abd, SLR and knee flexion; L ankle pumps x 20 Bed Mobility: Bed Mobility From 1: Supine Bed Mobility Type 1: To Bed Mobility to 1: Short sit Level of Assistance 1: Independent Bed Mobility Comments 1: Good tech and no use of bedrail Transfers: Transfer From 1: Bed, Sit Transfer Type 1: To Transfer to 1: Stand Technique 1: Sit to stand Transfer Device 1: FWW Transfer Level of Assistance 1: Moderate assistance Trials/Comments 1: required 2 attempts up to standing position with second attempt gave vc's to shift wt forward slightly with standing (nose over toes) Transfer From 2: Stand Transfer Type 2: To Transfer to 2: Sit, Chair with arms Technique 2: Stand pivot Transfer Level of Assistance 2: Moderate assistance Trials/Comments 2: Hop to step for SPT with short controlled hops Assessment/Plan Assessment Response to Today's Session: Patient tolerated session this date but did require Mod A for sit>stand and SPT transfers demonstrating increased fatigue Plan Treatment/Interventions: Functional transfer training, LE strengthening/ROM, Endurance training, Bed mobility, Gait training PT Plan: Skilled PT Equipment Recommended: FWW PT - Next Appointment: 06/25/22 Goals: Multi-Disciplinary Problems (from Physical Therapy) Active Problems Problem: PT [facility] Start Date: 05/08/22 Goal Start Date End Date [facility] 05/08/22 -- Goal Details: Pt will SPT from bed to w/c min A w/ most appropriate assistive device. Goal Start Date End Date [facility] 2 05/08/22 -- Goal Details: Pt will stand for 30 sec CGA with most appropriate assistive device. Timed Code Treatment Minutes Therapeutic Exercise Time Entry: 15 PT Therapeutic Activity, Transfer Training Time Entry: 10 Untimed Code Treatment Minutes Total Treatment Time Start Time: 1145 Stop Time: 1210 Time Calculation (min): 25 min The skills of this therapist were necessary for the patient to work toward completing their goals during today s therapy session. In the event of this patient s discharge from [facility] prior to completingtherapy services, this note will stand as the current PT Discharge Summary. Associated attestation - Marilin Foreman, PT - 06/26/2022 7:27 AM EDT Okay per PT Marilin Foreman, [id number] * Zachery Coombs MD - 06/22/2022 5:21 PM EDT Subjective The patient was seen and evaluated by me today. No new complaints. Pending ECF placement. Initiallywas admitted because of aggressive behavior but that has been resolved. Results from last 7 days Lab Units 06/18/22 0428 WBC AUTO 10*3/uL 7.6 HEMOGLOBIN g/dL 8.7* HEMATOCRIT % 24.9* PLATELETS AUTO 10*3/uL 203 Results from last 7 days Lab Units 06/18/22 0428 SODIUM mmol/L 142 POTASSIUM mmol/L 4.4 CHLORIDE mmol/L 110* CO2 mmol/L 27 BUN mg/dL 41* CREATININE mg/dL 1.5* CALCIUM mg/dL 9.2 Objective Physical Exam Last Recorded Vitals Blood pressure 131/70, pulse 79, temperature 36.6 C (97.9 F), temperature source Oral, resp. rate 20, height 1.727 m (5' 8 ), weight 103 kg (226 lb 6.6 oz), SpO2 96 %. Physical Exam General Appearance: awake, alert, oriented, in no acute distress Skin: skin color, texture, turgor are normal, chronic left foot skin lesion reported on admission Head/Face: NCAT Eyes: Pupils- PERRL Ears: External- normal and Hearing- bilateral- normal to conversation Mouth/Throat: Mucosa moist, no lesions Neck: neck- supple, no mass, non-tender Lungs: Normal expansion. Clear to auscultation. No rales, rhonchi, or wheezing. Heart: Heart sounds are normal. Regular rate and rhythm without murmur, gallop or rub. Abdomen: Soft, non-tender, normal bowel sounds Musculoskeletal: Strength normal, no cyanosis, clubbing or edema, right below- knee amputation Neurologic: Alert and oriented x 3, generalized fatigue and weakness Assessment/Plan Principal Problem: PTSD (post-traumatic stress disorder) Active Problems: Type 2 diabetes mellitus Hypertension Anemia Chronic ulcer of left foot Occipital neuralgia of left side Chronic kidney disease, stage III (moderate) 1. Posttraumatic stress disorder in addition to depressive disorder with reported homicidal ideation and aggressive behavior on admission but not anymore. Pending ECF placement. To be discharged to ECF whenever the arrangement is completed. 2. Wound at the dorsal aspect of the foot. Continue current care. Reported on admission. Most likely secondary to reaction to foot strap at the assisted 3. Type 2 diabetes mellitus. Continue monitor blood sugar numbers on regular basis with insulin sliding scale 4. Urinary retention with chronic Todd catheter. To be exchanged every 4 weeks. It was done less than 3 weeks ago. 5. Occipital neuralgia. Already seen by the neurologist. Continue current management The patient is medically stable. No significant changes on the patient's condition since the last time he was evaluated. To be discharged to ECF whenever the arrangement is completed * Nathalie Prabhakar OTR/Micheal - 06/22/2022 9:16 AM EDT Occupational Therapy Occupational Therapy Evaluation Patient Name: Mikayla Pappas Today's Date: 06/22/2022 Subjective Subjective: RN consent to OT IE. Patient received in bed. Education provided on role/purpose of OT,patient agreeable to OT IE. At exit, patient returned to bed w/ needs within reach and bed alarm on. Patient is pleasant t/o the session. Patient states he has some dizziness/lightheadedness when sitting EOB, feels better after a couple minutes. Patient reports that the room is spinning when returned to supine. RN and POCT notified. POCT notified that the patient needs cleaned up. Patient Active Problem List Diagnosis Type 2 diabetes mellitus with right diabetic foot ulcer Depression Type 2 diabetes mellitus WPW (Mxpuc-Xlzrrvvsh-Fqsrg syndrome) Stroke (CMS/HCC) Hypertension Orthostatic hypotension Right bundle branch block Obesity LORENA (obstructive sleep apnea) Diabetic neuropathy GERD (gastroesophageal reflux disease) Anemia Chronic ulcer of left foot Abnormal EKG Abnormal gait Amputated below knee (CMS/HCC) Amputated toe of right foot At risk for falls At risk for venous thromboembolism (VTE) Cellulitis, unspecified Chest pain Elevated blood-pressure reading, without diagnosis of hypertension Elevated C-reactive protein (CRP) Elevated troponin Encounter for change or removal of nonsurgical wound dressing Gross hematuria Hypercholesterolemia Hyperglycemia due to type 2 diabetes mellitus ([facility]/HCC) Hypo-osmolality and hyponatremia Hypospadias, penile Impacted cerumen Impaired cognition Impairment of balance Neurogenic bladder Neuropathy Other specified postprocedural states Overactive bladder Personal history of other endocrine, nutritional and metabolic disease Personal history of transient ischemic attack (TIA), and cerebral infarction without residual deficits Presence of urogenital implants Recurrent major depression in remission Sepsis Tubulo-interstitial nephritis, not specified as acute or chronic Unspecified hydronephrosis Urinary tract infection, site not specified Weakness PTSD (post-traumatic stress disorder) Occipital neuralgia of left side Chronic kidney disease, stage III (moderate) Past Medical History: Diagnosis Date Depression 05/02/2021 Diabetes mellitus Heel ulcer ([facility]/HCC) 05/02/2021 Hypertension 05/02/2021 Hypotension Orthostatic hypotension Orthostatic hypotension 05/02/2021 PTSD (post-traumatic stress disorder) 05/02/2022 Right bundle branch block 05/02/2021 Stroke ([facility]) Stroke ([facility]/HCC) 05/02/2021 Urine retention 05/02/2021 Ttwal-Oxpwroaya-Pfxlt syndrome WPW (Jncfw-Jppgjxuoo-Tkpfg syndrome) 05/02/2021 Past Surgical History: Procedure Laterality Date CARDIAC CATHETERIZATION Bilateral 05/05/2021 Performed by Paul Gaona DO at [facility] Cardiac Cath Labs FOOT SURGERY Left INCISION AND DRAINAGE OF WOUND Right 05/03/2021 Performed by Agueda Alonso DPM at [facility] OR LEG AMPUTATION Right 05/12/2021 Performed by Paul Gaona DO at [facility] OR RADIOFREQUENCY ABLATION Pain Pain Assessment Tool Pain Assessment: No/denies pain Home Living Home Living Type of Home: Facility ([facility]) Lives With: Alone Home Adaptive Equipment: Wheelchair-manual, Entry Examiner, Sock aid Home Living Comments: Per chart review, patient will not be able to return to [facility] at discharge. SW states that she has found a new placement for the patient Home Access: Level entry Bathroom Equipment: (Uses shower chair) Prior Level of Function Prior Function Level of [place]: Needs assistance with ADLs, Needs assistance with homemaking, Needs assistance with functional transfers Receives Help From: auto self service station attendant ADL Assistance: Needs assistance Homemaking Assistance: Needs assistance Laundry: Needs assistance Cleaning: Maximal Prior Function Comments: Patient states that he uses a w/c for ambulation YOUTH LIAISON OFFICER, has been working with phusical therapy on SPT to the chair with use of a FWW. Patient states that he is I with dressing using AE. Supervision with transfers to commode and assist with transfers to shower chair. Objective UE assessment from bed level. Patient tf supine to EOB with min A/ASSOCIATE TECHNICIAN. Pt tf STS with mod A and FWW. Returned to supine with cga. Patient assisted with boosting himself in. General Visit Information: Not all ADL's completed secondary to decreased patient tolerance and/or time constraints, levels ofassist made with observation and best clinical judgement. General Family/Caregiver Present: No Precautions Precautions Therapy Precautions?: Yes Medical Precautions: Fall Risk, R BKA, chronic todd Post-Surgical Precautions: R BKA 05/12/21 Cognition Cognition Overall Cognitive Status: Within Functional Limits Arousal/Alertness: Appropriate responses to stimuli Orientation Level: Oriented X4 Following Commands: Follows all commands and directions without difficulty Safety Judgment: Good awareness of safety precautions Awareness of Errors: Good awareness of errors made Deficits: Fully aware of deficits Attention Span: Appears intact Memory: Appears intact Problem Solving: Able to problem solve independently Prior IADLs General Assessments Eating Assistance: Independent Grooming Assistance: Minimal Grooming Deficit: Setup, Supervision/safety, Increased time to complete (w/c level) UE Bathing Level of Assistance: Contact guard LE Bathing Level of Assistance: Moderate assistance Bathing Deficit: Setup, Steadying, Verbal cueing, Supervision/safety, Increased time to complete , Buttocks, Right lower leg including foot, Left lower leg including foot, Use of shower chair UE Dressing Assistance: Stand by UE Dressing Deficit: Setup, Supervision/safety, Increased time to complete LE Dressing Assistance: Maximal LE Dressing Deficit: Setup, Requires assistive device for steadying, Steadying, Verbal cueing, Supervision/safety, Increased time to complete, Use of adaptive equipment, Thread LLE into pants, ThreadLLE into underwear, Don/doff L sock, Don/doff L shoe, Pull up over hips, Thread RLE into underwear,Thread RLE into pants Toileting Assistance with Device: Moderate Toileting Deficit: Setup, Steadying, Verbal cueing, Supervison/safety, Increased time to complete, Grab bar use, Clothing management up, Clothing management down, Bedside commode, Perineal hygiene Functional Assistance: Moderate Functional Deficit: Setup, Steadying, Verbal cueing, Supervision/safety, Increased time to complete, Shower transfer Endurance: Tolerates 10 - 20 min exercise with multiple rests Sitting Balance: Sits without support for more than 30 sec Current Vision: Wears glasses only for reading Sensation Light Touch: Partial deficits in the RUE, Partial deficits in the LUE Sensation Comments: patient reports N/T in BUE Proprioception Proprioception: No apparent deficits Perception Inattention/Neglect: Appears intact Coordination Movements are Fluid and Coordinated: Yes Gross Grasp: Functional Coordination: Impaired (some difficulty due to N/T) Bed Mobility: Bed Mobility: Yes Bed Mobility From 1: Supine Bed Mobility Type 1: To and from Bed Mobility to 1: Short sit Level of Assistance 1: Minimum assistance, Contact guard Bed Mobility Comments 1: ASSOCIATE TECHNICIAN for patient to pull self against to sit up. CGA to return to bed with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 bed cga, sitting balance good-, 2 sit to stands with fww mod assist, stood fww x 15 seconds each, transfer sit to stand mod assist, spt with fww mod assist to chair, exercises in chair Bed Mobility: Bed Mobility: Yes Bed Mobility From 1: Supine Bed Mobility Type 1: To Bed Mobility to 1: Short sit Level of Assistance 1: Contact guard, Close supervision Bed Mobility Comments 1: slow scoot Transfers: Transfer?: Yes Transfer From 1: Sit Transfer Type 1: To and from Transfer to 1: Stand Technique 1: Sit to stand, Stand to sit, Stand pivot Transfer Device 1: FWW, gait belt Transfer Level of Assistance 1: Moderate assistance Trials/Comments 1: used fww better Assessment/Plan Assessment Response to Today's Session: tolerates transfer Performance/Progress to Date: spt to chair, exercises Continued Need for Therapy: yes Plan Treatment/Interventions: Functional transfer training, LE strengthening/ROM, Endurance training, Bed mobility, Gait training PT Plan: Skilled PT PT Discharge Recommendations: intermediate facility placement Equipment Recommended: fww PT - Next Appointment: 06/13/22 PT - OK to Discharge: Yes Goals: Multi-Disciplinary Problems (from Physical Therapy) Active Problems Problem: PT [facility] Start Date: 05/08/22 Goal Start Date End Date [facility] 1 05/08/22 -- Goal Details: Pt will SPT from bed to w/c min A w/ most appropriate assistive device. Goal Start Date End Date [facility] 2 05/08/22 -- Goal Details: Pt will stand for 30 sec CGA with most appropriate assistive device. Timed Code Treatment Minutes Untimed Code Treatment Minutes Total Treatment Time The skills of this therapist were necessary for the patient to work toward completing their goals during today s therapy session. In the event of this patient s discharge from [facility] prior to completingtherapy services, this note will stand as the current PT Discharge Summary. * Maureen Huitron MD - 06/11/2022 5:22 PM EDT Daily Progress Note Subjective 61-year-old gentleman with a past medical history of depression, hypertension, type 2 diabetes mellitus, PTSD, and urinary retention with chronic Todd catheter who initially presented to the emergency department on 05/01/2022 after he became aggressive towards staff at [facility] threatening to kill people. Patient was urgently discharged from [facility] and sent to ED by squad and law enforcement. Patient hasremained calm and cooperative since admission without further outbursts. Evaluated by psychiatry who feels that the patient's underlying psychiatric problem is chronic in nature related to his depression and PTSD. He was evaluated by neurology secondary to occipital neuralgia with follow-up CT headwithout acute pathology with recommendation for continuing gabapentin and adding Depakote. . Socialwork attempting difficult placement. Denied after onsite visit by local facility. New referral placed in [place]. Todd catheter exchanged 06/02/22. Today: No new complaints. Resting comfortably. Objective Seen and Examined at Bedside. Resting quietly No complains. No reported agitation. Vital signs in last 24 hours: Temp: [36.6 C (97.9 F)-37.1 C (98.7 F)] 36.8 C (98.2 F) Heart Rate: [73-86] 74 Resp: [12-16] 16 BP: (136-151)/(66-77) 136/67 Intake/Output last 3 shifts: I/O last 3 completed shifts: In: 450 (4.3 mL/kg) [P.O.:450] Out: 3775 (35.9 mL/kg) [Urine:3775 (1 mL/kg/hr)] Weight: 105.2 kg Intake/Output this shift: I/O this shift: In: 920 [P.O.:920] Out: 900 [Urine:900] Physical Exam General Appearance: awake, alert, oriented, in no acute distress Skin: skin color, texture, turgor are normal Head/Face: NCAT Eyes: Pupils- PERRL Ears: External- normal and Hearing- bilateral- normal to conversation Mouth/Throat: Mucosa moist, no lesions Neck: neck- supple, trachea midline Lungs: Normal expansion. Clear to auscultation. No rales, rhonchi, or wheezing. Heart: RRR, no murmur, rub or gallop.LT Leg lower extremity edema Abdomen: Soft, non-tender, non-distended Musculoskeletal: RT BKA,Contracte LT Leg no cyanosis, Neurologic: Strength and sensation grossly normal Psych: Alert and oriented x3 Assessment/Plan Principal Problem: PTSD (post-traumatic stress disorder) Active Problems: Type 2 diabetes mellitus Hypertension Anemia Chronic ulcer of left foot Occipital neuralgia of left side Chronic kidney disease, stage III (moderate) Posttraumatic stress disorder. Agitation With episode of aggressive behavior at ECF. Transported to ED and pink slipped by police. Evaluated by psychiatry who does not feel patient is risk of harming himself or others. Mental state has been stable here in the hospital. Stable for discharge to ECF. Unfortunately now a difficult ECF placement. Hypertension Essential Controlled ,will Continue amlodipine. Type 2 Diabetes mellitus. Hyperglycemia. Continue home medications, sliding scale and long-acting insulin. Occipital neuralgia Recent history of daily headaches. Head CT without acute pathology. Neurology Input appreciated, adjusted Neurontin and added Depakote. Chronic urinary retention Continue chronic Todd catheter. Exchanged 06/02/2022. Obesity;BMI;35.23 Lifestyle modification discussed. Will benefit from Outpatient sleep study referral. Disposition;Discharge pending acceptance,Case management F/U. Looking at various ECFs around the state. LOS: 0 days * Mikayla Kitchen Bob, [employer] - 06/11/2022 1:15 PM EDT Physical Therapy Physical Therapy Treatment Patient Name: Mikayla Pappas Today's Date: 06/11/2022 Subjective nurse oks to work with patient, right cedeno, agrees to get up, in chair with alarm and call light at end of treatment Patient Active Problem List Diagnosis Type 2 diabetes mellitus with right diabetic foot ulcer Depression Type 2 diabetes mellitus WPW (Nzwtf-Uimzhcilb-Hdsdt syndrome) Stroke (CMS/HCC) Hypertension Orthostatic hypotension Right bundle branch block Obesity LORENA (obstructive sleep apnea) Diabetic neuropathy GERD (gastroesophageal reflux disease) Anemia Chronic ulcer of left foot Abnormal EKG Abnormal gait Amputated below knee (CMS/HCC) Amputated toe of right foot At risk for falls At risk for venous thromboembolism (VTE) Cellulitis, unspecified Chest pain Elevated blood-pressure reading, without diagnosis of hypertension Elevated C-reactive protein (CRP) Elevated troponin Encounter for change or removal of nonsurgical wound dressing Gross hematuria Hypercholesterolemia Hyperglycemia due to type 2 diabetes mellitus (CMS/HCC) Hypo-osmolality and hyponatremia Hypospadias, penile Impacted cerumen Impaired cognition Impairment of balance Neurogenic bladder Neuropathy Other specified postprocedural states Overactive bladder Personal history of other endocrine, nutritional and metabolic disease Personal history of transient ischemic attack (TIA), and cerebral infarction without residual deficits Presence of urogenital implants Recurrent major depression in remission Sepsis Tubulo-interstitial nephritis, not specified as acute or chronic Unspecified hydronephrosis Urinary tract infection, site not specified Weakness PTSD (post-traumatic stress disorder) Occipital neuralgia of left side Chronic kidney disease, stage III (moderate) Pain Pain Assessment Tool Pain Assessment: No/denies pain Objective General Visit Information: PT Received On: 06/11/22 Response to Previous Treatment: Patient with no complaints from previous session. General Assessments: Endurance: Tolerates 10 - 20 min exercise with multiple rests Sitting Balance: Sits without support for more than 30 sec Activity Tolerance Comments: fatigues quickly Treatment: Therapeutic Exercise: Therapeutic Exercise?: Yes -: seated yoandy le-qs, slr, heel slides, laq x 10 reps Therapeutic Activity: Therapeutic Activity?: Yes -: in bed, right bka, transfer supine to sit side of bed sba, sitting balance fair, transfer sit tostand mod assist, transfer fww to chair, pivot step mod assist, exercises Bed Mobility: Bed Mobility: Yes Bed Mobility From 1: Supine Bed Mobility Type 1: To Bed Mobility to 1: Short sit Level of Assistance 1: Close supervision Bed Mobility Comments 1: good trunk control Transfers: Transfer?: Yes Transfer From 1: Sit Transfer Type 1: To and from Transfer to 1: Stand Technique 1: Sit to stand, Stand to sit, Stand pivot Transfer Device 1: FWW, gait belt Transfer Level of Assistance 1: Moderate assistance Trials/Comments 1: weak Assessment/Plan Assessment Response to Today's Session: tolerates transfer Performance/Progress to Date: spt to chair, exercises Continued Need for Therapy: yes Plan Treatment/Interventions: Functional transfer training, LE strengthening/ROM, Endurance training, Cognitive reorientation, Bed mobility, Gait training PT Plan: Skilled PT PT Discharge Recommendations: intermediate facility placement Equipment Recommended: fww PT - Next Appointment: 06/12/22 PT - OK to Discharge: Yes Goals: Multi-Disciplinary Problems (from Physical Therapy) Active Problems Problem: PT [facility] Start Date: 05/08/22 Goal Start Date End Date [facility] 1 05/08/22 -- Goal Details: Pt will SPT from bed to w/c min A w/ most appropriate assistive device. Goal Start Date End Date [facility] 2 05/08/22 -- Goal Details: Pt will stand for 30 sec CGA with most appropriate assistive device. Timed Code Treatment Minutes Untimed Code Treatment Minutes Total Treatment Time The skills of this therapist were necessary for the patient to work toward completing their goals during today s therapy session. In the event of this patient s discharge from [facility] prior to completingtherapy services, this note will stand as the current PT Discharge Summary. * Maureen Huitron MD - 06/10/2022 3:33 PM EDT Daily Progress Note Subjective 61-year-old gentleman with a past medical history of depression, hypertension, type 2 diabetes mellitus, PTSD, and urinary retention with chronic Todd catheter who initially presented to the emergency department on 05/01/2022 after he became aggressive towards staff at [facility] threatening to kill people. Patient was urgently discharged from [facility] and sent to ED by squad and law enforcement. Patient hasremained calm and cooperative since admission without further outbursts. Evaluated by psychiatry who feels that the patient's underlying psychiatric problem is chronic in nature related to his depression and PTSD. He was evaluated by neurology secondary to occipital neuralgia with follow-up CT headwithout acute pathology with recommendation for continuing gabapentin and adding Depakote. . Socialwork attempting difficult placement. Denied after onsite visit by local facility. New referral placed in [place]. Todd catheter exchanged 06/02/22. Today: No new complaints. Resting comfortably. Objective Seen and Examined at Bedside. Resting quietly No complains. No reported agitation. Vital signs in last 24 hours: Temp: [36.6 C (97.9 F)-37.1 C (98.7 F)] 36.8 C (98.2 F) Heart Rate: [70-84] 70 Resp: [10-18] 18 BP: (128-152)/(68-75) 141/72 Intake/Output last 3 shifts: I/O last 3 completed shifts: In: 2150 (20.5 mL/kg) [P.O.:2150] Out: 3875 (36.9 mL/kg) [Urine:3875 (1 mL/kg/hr)] Weight: 105 kg Intake/Output this shift: I/O this shift: In: - Out: 550 [Urine:550] Physical Exam General Appearance: awake, alert, oriented, in no acute distress Skin: skin color, texture, turgor are normal Head/Face: NCAT Eyes: Pupils- PERRL Ears: External- normal and Hearing- bilateral- normal to conversation Mouth/Throat: Mucosa moist, no lesions Neck: neck- supple, trachea midline Lungs: Normal expansion. Clear to auscultation. No rales, rhonchi, or wheezing. Heart: RRR, no murmur, rub or gallop.LT Leg lower extremity edema Abdomen: Soft, non-tender, non-distended Musculoskeletal: RT BKA,Contracte LT Leg no cyanosis, Neurologic: Strength and sensation grossly normal Psych: Alert and oriented x3 Assessment/Plan Principal Problem: PTSD (post-traumatic stress disorder) Active Problems: Type 2 diabetes mellitus Hypertension Anemia Chronic ulcer of left foot Occipital neuralgia of left side Chronic kidney disease, stage III (moderate) Posttraumatic stress disorder. Agitation With episode of aggressive behavior at ECF. Transported to ED and pink slipped by police. Evaluated by psychiatry who does not feel patient is risk of harming himself or others. Mental state has been stable here in the hospital. Stable for discharge to ECF. Unfortunately now a difficult ECF placement. Hypertension Essential Controlled ,will Continue amlodipine. Type 2 Diabetes mellitus. Hyperglycemia. Continue home medications, sliding scale and long-acting insulin. Occipital neuralgia Recent history of daily headaches. Head CT without acute pathology. Neurology Input appreciated, adjusted Neurontin and added Depakote. Chronic urinary retention Continue chronic Todd catheter. Exchanged 06/02/2022. Obesity;BMI;35.23 Lifestyle modification discussed. Will benefit from Outpatient sleep study referral. Disposition;Discharge pending acceptance,Case management F/U. Looking at various ECFs around the [facility]. LOS: 0 days * Jolene Ramon - 06/09/2022 1:30 PM EDT Massage Therapy Treatment Patient Name: Mikayla Pappas Today's Date: 06/09/2022 Patient asks for a left calf massage and is sitting up in a recliner. I applied friction and light kneading to patients left calf only. Patient tolerates massage well and states the massage felt good. No family present. Call light within reach. Nurse aware of massage. Will see patient as needed. * Maureen Huitron MD - 06/09/2022 11:48 AM EDT Daily Progress Note Subjective 61-year-old gentleman with a past medical history of depression, hypertension, type 2 diabetes mellitus, PTSD, and urinary retention with chronic Todd catheter who initially presented to the emergency department on 05/01/2022 after he became aggressive towards staff at [facility] threatening to kill people. Patient was urgently discharged from [facility] and sent to ED by squad and law enforcement. Patient hasremained calm and cooperative since admission without further outbursts. Evaluated by psychiatry who feels that the patient's underlying psychiatric problem is chronic in nature related to his depression and PTSD. He was evaluated by neurology secondary to occipital neuralgia with follow-up CT headwithout acute pathology with recommendation for continuing gabapentin and adding Depakote. . Socialwork attempting difficult placement. Denied after onsite visit by local facility. New referral placed in [place]. Todd catheter exchanged 06/02/22. Today: No new complaints. Resting comfortably. Objective Seen and Examined at Bedside. Resting quietly No complains. No reported agitation. Vital signs in last 24 hours: Temp: [36.4 C (97.5 F)-36.9 C (98.4 F)] 36.4 C (97.6 F) Heart Rate: [72-88] 73 Resp: [11-32] 11 BP: (132-163)/(62-75) 148/75 Intake/Output last 3 shifts: I/O last 3 completed shifts: In: 3095 (29.4 mL/kg) [P.O.:3095] Out: 4550 (43.3 mL/kg) [Urine:4550 (1.2 mL/kg/hr)] Weight: 105.1 kg Intake/Output this shift: I/O this shift: In: 250 [P.O.:250] Out: - Physical Exam General Appearance: awake, alert, oriented, in no acute distress Skin: skin color, texture, turgor are normal Head/Face: NCAT Eyes: Pupils- PERRL Ears: External- normal and Hearing- bilateral- normal to conversation Mouth/Throat: Mucosa moist, no lesions Neck: neck- supple, trachea midline Lungs: Normal expansion. Clear to auscultation. No rales, rhonchi, or wheezing. Heart: RRR, no murmur, rub or gallop.LT Leg lower extremity edema Abdomen: Soft, non-tender, non-distended Musculoskeletal: RT BKA,Contracte LT Leg no cyanosis, Neurologic: Strength and sensation grossly normal Psych: Alert and oriented x3 Assessment/Plan Principal Problem: PTSD (post-traumatic stress disorder) Active Problems: Type 2 diabetes mellitus Hypertension Anemia Chronic ulcer of left foot Occipital neuralgia of left side Chronic kidney disease, stage III (moderate) Posttraumatic stress disorder. Agitation With episode of aggressive behavior at ECF. Transported to ED and pink slipped by police. Evaluated by psychiatry who does not feel patient is risk of harming himself or others. Mental state has been stable here in the hospital. Stable for discharge to ECF. Unfortunately now a difficult ECF placement. Hypertension Essential Controlled ,will Continue amlodipine. Type 2 Diabetes mellitus. Hyperglycemia. Continue home medications, sliding scale and long-acting insulin. Occipital neuralgia Recent history of daily headaches. Head CT without acute pathology. Neurology Input appreciated, adjusted Neurontin and added Depakote. Chronic urinary retention Continue chronic Todd catheter. Exchanged 06/02/2022. Obesity;BMI;35.23 Lifestyle modification discussed. Will benefit from Outpatient sleep study referral. Disposition;Discharge pending acceptance,Case management F/U. Looking at various ECFs around the state. LOS: 0 days * Mikayla Kitchen Bob, [employer]ER - 06/09/2022 10:00 AM EDT Physical Therapy Physical Therapy Treatment Patient Name: Mikayla Pappas Today's Date: 06/09/2022 Subjective nurse oks to work with patient, right pao, agrees to get up, in chair with alarm and call light Patient Active Problem List Diagnosis Type 2 diabetes mellitus with right diabetic foot ulcer Depression Type 2 diabetes mellitus WPW (Uiojt-Xsbmzdmly-Lprqb syndrome) Stroke (CMS/HCC) Hypertension Orthostatic hypotension Right bundle branch block Obesity LORENA (obstructive sleep apnea) Diabetic neuropathy GERD (gastroesophageal reflux disease) Anemia Chronic ulcer of left foot Abnormal EKG Abnormal gait Amputated below knee (CMS/HCC) Amputated toe of right foot At risk for falls At risk for venous thromboembolism (VTE) Cellulitis, unspecified Chest pain Elevated blood-pressure reading, without diagnosis of hypertension Elevated C-reactive protein (CRP) Elevated troponin Encounter for change or removal of nonsurgical wound dressing Gross hematuria Hypercholesterolemia Hyperglycemia due to type 2 diabetes mellitus (CMS/HCC) Hypo-osmolality and hyponatremia Hypospadias, penile Impacted cerumen Impaired cognition Impairment of balance Neurogenic bladder Neuropathy Other specified postprocedural states Overactive bladder Personal history of other endocrine, nutritional and metabolic disease Personal history of transient ischemic attack (TIA), and cerebral infarction without residual deficits Presence of urogenital implants Recurrent major depression in remission Sepsis Tubulo-interstitial nephritis, not specified as acute or chronic Unspecified hydronephrosis Urinary tract infection, site not specified Weakness PTSD (post-traumatic stress disorder) Occipital neuralgia of left side Chronic kidney disease, stage III (moderate) Pain Pain Assessment Tool Pain Assessment: No/denies pain Objective General Visit Information: PT Received On: 06/09/22 Response to Previous Treatment: Patient with no complaints from previous session. General Assessments: Endurance: Tolerates 10 - 20 min exercise with multiple rests Sitting Balance: Sits without support for more than 30 sec Activity Tolerance Comments: fatigues quickly Treatment: Therapeutic Exercise: Therapeutic Exercise?: Yes -: left le-ap, qs, slr, heel slides, laq x 10 reps -: right bka-laq,hip/knee flexion, qs slr x 10 reps Therapeutic Activity: Therapeutic Activity?: Yes -: in bed, transfer supine to sit side of bed cga, sitting balance good, transfer sit to stand mod assist, spt to chair with fww mod assist, exercises Bed Mobility: Bed Mobility: Yes Bed Mobility From 1: Supine Bed Mobility Type 1: To Bed Mobility to 1: Short sit Level of Assistance 1: Contact guard Bed Mobility Comments 1: extra time and effort Transfers: Transfer?: Yes Transfer From 1: Sit Transfer Type 1: To and from Transfer to 1: Stand Technique 1: Sit to stand, Stand to sit, Stand pivot Transfer Device 1: FWW, gait belt Transfer Level of Assistance 1: Moderate assistance Trials/Comments 1: unsteady Assessment/Plan Assessment Response to Today's Session: tolerates transfer Performance/Progress to Date: spt to chair, exercises Continued Need for Therapy: yes Plan Treatment/Interventions: Functional transfer training, LE strengthening/ROM, Endurance training, Bed mobility, Gait training PT Plan: Skilled PT PT Discharge Recommendations: intermediate facility placement Equipment Recommended: fww PT - Next Appointment: 06/09/22 PT - OK to Discharge: Yes Goals: Multi-Disciplinary Problems (from Physical Therapy) Active Problems Problem: PT [facility] Start Date: 05/08/22 Goal Start Date End Date [facility] - [facility] 1 05/08/22 -- Goal Details: Pt will SPT from bed to w/c min A w/ most appropriate assistive device. Goal Start Date End Date [facility] 2 05/08/22 -- Goal Details: Pt will stand for 30 sec CGA with most appropriate assistive device. Timed Code Treatment Minutes Untimed Code Treatment Minutes Total Treatment Time The skills of this therapist were necessary for the patient to work toward completing their goals during today s therapy session. In the event of this patient s discharge from [facility] prior to completingtherapy services, this note will stand as the current PT Discharge Summary. * Marco Kelley PTA - 06/08/2022 12:18 PM EDT Physical Therapy An attempt was made to see this pt today for PT. Pt sleeping very soundly and does not wake to verbal stimulation. PT will follow up with this pt at another time/date to offer PT services as needed during his stay to progress towards goals as appropriate. * Kevin Patel MD - 06/08/2022 11:51 AM EDT Daily Progress Note Subjective 61-year-old gentleman with a past medical history of depression, hypertension, type 2 diabetes mellitus, PTSD, and urinary retention with chronic Todd catheter who initially presented to the emergency department on 05/01/2022 after he became aggressive towards staff at [facility] threatening to kill people. Patient was urgently discharged from [facility] and sent to ED by squad and law enforcement. Patient hasremained calm and cooperative since admission without further outbursts. Evaluated by psychiatry who feels that the patient's underlying psychiatric problem is chronic in nature related to his depression and PTSD. He was evaluated by neurology secondary to occipital neuralgia with follow-up CT headwithout acute pathology with recommendation for continuing gabapentin and adding Depakote. . Socialwork attempting difficult placement. Denied after onsite visit by local facility. New referral placed in [place]. Todd catheter exchanged 06/02/22. Objective Seen and Examined at Bedside. Resting quietly No complains. No reported agitation. Vital signs in last 24 hours: Temp: [36.3 C (97.4 F)-37.1 C (98.8 F)] 36.6 C (97.9 F) Heart Rate: [71-82] 73 Resp: [-22] 20 BP: (135-147)/(66-75) 147/75 Intake/Output last 3 shifts: I/O last 3 completed shifts: In: 1310 (12.5 mL/kg) [P.O.:1310] Out: 3300 (31.4 mL/kg) [Urine:3300 (0.9 mL/kg/hr)] Weight: 105.1 kg Intake/Output this shift: I/O this shift: In: 240 [P.O.:240] Out: 250 [Urine:250] Physical Exam General Appearance: awake, alert, oriented, in no acute distress Skin: skin color, texture, turgor are normal Head/Face: NCAT Eyes: Pupils- PERRL Ears: External- normal and Hearing- bilateral- normal to conversation Mouth/Throat: Mucosa moist, no lesions Neck: neck- supple, trachea midline Lungs: Normal expansion. Clear to auscultation. No rales, rhonchi, or wheezing. Heart: RRR, no murmur, rub or gallop.LT Leg lower extremity edema Abdomen: Soft, non-tender, non-distended Musculoskeletal: RT BKA,Contracte LT Leg no cyanosis, Neurologic: Strength and sensation grossly normal Psych: Alert and oriented x3 Assessment/Plan Principal Problem: PTSD (post-traumatic stress disorder) Active Problems: Type 2 diabetes mellitus Hypertension Anemia Chronic ulcer of left foot Occipital neuralgia of left side Chronic kidney disease, stage III (moderate) Posttraumatic stress disorder. Agitation With episode of aggressive behavior at ECF. Transported to ED and pink slipped by police. Discharged from ECF. Evaluated by psychiatry who does not feel patient is risk of harming himself or others. Unfortunately now a difficult ECF placement. Hypertension Essential Controlled ,will Continue amlodipine. Type 2 Diabetes mellitus. Hyperglycemia. Continue home medications, sliding scale and long-acting insulin. Occipital neuralgia Recent history of daily headaches. Head CT without acute pathology. Neurology Input appreciated, adjusted Neurontin and added Depakote. Chronic urinary retention Continue chronic Todd catheter. Exchanged 06/02/2022. Obesity;BMI;35.23 Lifestyle modification discussed. Will benefit from Outpatient sleep study referral. Disposition;Discharge pending acceptance,Case management F/U. LOS: 0 days * Opal Knox RN - 06/08/2022 9:23 AM EDT Length of stay notification received. Pressure check completed at this time. All pressure points are WNL. Wounds remain unchanged. Continue Allevyn foam therapy to open wounds. Patient encouraged to reposition at least q2hrs for prevention of pressure injury. Patient had a bowel movement noted at time of assessment. POCT notified. * Shin Eason MD - 06/07/2022 5:45 PM EDT Daily Progress Note Subjective Seen and evaluated in AM. Offers no particular complaints at this time pending discharge. Objective Vital signs in last 24 hours: Temp: [36.6 C (97.8 F)-37.1 C (98.7 F)] 36.6 C (97.8 F) Heart Rate: [71-86] 76 Resp: [15-21] 16 BP: (135-164)/(66-72) 142/66 Intake/Output last 3 shifts: I/O last 3 completed shifts: In: 200 (1.9 mL/kg) [P.O.:200] Out: 3525 (33.6 mL/kg) [Urine:3525 (0.9 mL/kg/hr)] Weight: 105 kg Intake/Output this shift: I/O this shift: In: 355 [P.O.:355] Out: 1000 [Urine:1000] Physical Exam General Appearance: awake, alert, oriented, in no acute distress Skin: skin color, texture, turgor are normal Head/Face: NCAT Respiratory- normal expansion. Clear to auscultation. No rales, rhonchi, or wheezing. Cardiovascular- RRR, no murmur, rub or gallop. No lower extremity edema GI soft, non-tender, non-distended Musculoskeletal: Strength normal, no cyanosis, clubbing Neurologic: Strength and sensation grossly normal Assessment/Plan Principal Problem: PTSD (post-traumatic stress disorder) Active Problems: Type 2 diabetes mellitus Hypertension Anemia Chronic ulcer of left foot Occipital neuralgia of left side Chronic kidney disease, stage III (moderate) Assessment and plan 61-year-old gentleman with a past medical history of depression, hypertension, type 2 diabetes mellitus, PTSD, and urinary retention with chronic Todd catheter who initially presented to the emergency department on 05/01/2022 after he became aggressive towards staff at [facility] threatening to kill people. Patient was urgently discharged from ECF and sent to ED by squad and law enforcement. Patient hasremained calm and cooperative since admission without further outbursts. Evaluated by psychiatry who feels that the patient's underlying psychiatric problem is chronic in nature related to his depression and PTSD. He was evaluated by neurology secondary to occipital neuralgia with follow-up CT headwithout acute pathology with recommendation for continuing gabapentin and adding Depakote. Patient denies any new complaints. Social work attempting difficult placement. Denied after onsite visit by local facility. New referral placed in [place]. Todd catheter exchanged 06/02/22. Posttraumatic stress disorder With episode of aggressive behavior at ECF. Transported to ED and pink slipped by police. Discharged from ECF. Evaluated by psychiatry who does not feel patient is risk of harming himself or others. Unfortunately now a difficult ECF placement. Hypertension Continue amlodipine. Type 2 diabetes mellitus Continue home medications, sliding scale and long-acting insulin. Occipital neuralgia Recent history of daily headaches. Head CT without acute pathology. Evaluated by neurology who has adjusted Neurontin and added Depakote. Chronic urinary retention Continue chronic Todd catheter. Exchanged 06/02/2022. * Marco Kelley, [employer] - 06/07/2022 1:30 PM EDT Physical Therapy Physical Therapy Treatment Patient Name: Mikayla Pappas Today's Date: 06/07/2022 Subjective Pt was cleared to participate in PT today by nursing. Pt resting in bed upon arrival to room and agrees to participate in PT today. Upon completion of session pt sits in recliner at bedside and positioned for comfort with alarm on, call light/phone and all other needs in reach. Patient Active Problem List Diagnosis Type 2 diabetes mellitus with right diabetic foot ulcer Depression Type 2 diabetes mellitus WPW (Nxgvw-Hrrqqkcyk-Udduh syndrome) Stroke (CMS/HCC) Hypertension Orthostatic hypotension Right bundle branch block Obesity LORENA (obstructive sleep apnea) Diabetic neuropathy GERD (gastroesophageal reflux disease) Anemia Chronic ulcer of left foot Abnormal EKG Abnormal gait Amputated below knee (CMS/HCC) Amputated toe of right foot At risk for falls At risk for venous thromboembolism (VTE) Cellulitis, unspecified Chest pain Elevated blood-pressure reading, without diagnosis of hypertension Elevated C-reactive protein (CRP) Elevated troponin Encounter for change or removal of nonsurgical wound dressing Gross hematuria Hypercholesterolemia Hyperglycemia due to type 2 diabetes mellitus (CMS/HCC) Hypo-osmolality and hyponatremia Hypospadias, penile Impacted cerumen Impaired cognition Impairment of balance Neurogenic bladder Neuropathy Other specified postprocedural states Overactive bladder Personal history of other endocrine, nutritional and metabolic disease Personal history of transient ischemic attack (TIA), and cerebral infarction without residual deficits Presence of urogenital implants Recurrent major depression in remission Sepsis Tubulo-interstitial nephritis, not specified as acute or chronic Unspecified hydronephrosis Urinary tract infection, site not specified Weakness PTSD (post-traumatic stress disorder) Occipital neuralgia of left side Chronic kidney disease, stage III (moderate) Pain Objective General Visit Information: PT Received On: 06/07/22 Response to Previous Treatment: Patient with no complaints from previous session. General Assessments: Treatment: Therapeutic Activity: Therapeutic Activity?: Yes -: Pt resting in bed upon arrival to room. Pt completes ther ex in supine without increase in general discomfort expressed. Bed mobilty completed today with min assist extra time slow moving. Pt sitsat EOB with good balance. Sit to stand with Mod assist on second attempt with cues needed for technique. Pt completes stand pivot transfer with FWW from bed to recliner with mod assist and sits with fair eccentric control. Pt positioned for comfort with alarm on, call light/phone and all other needs in reach. Bed Mobility: Bed Mobility: Yes Bed Mobility From 1: Supine Bed Mobility Type 1: To Bed Mobility to 1: Short sit Level of Assistance 1: Minimum assistance Bed Mobility Comments 1: extra time needed Transfers: Transfer?: Yes Transfer From 1: Bed, Sit Transfer Type 1: To and from Transfer to 1: Stand Technique 1: Sit to stand, Stand to sit, Stand pivot Transfer Device 1: FWW, gait belt Transfer Level of Assistance 1: Moderate assistance Trials/Comments 1: requires 2 attempts to stand Assessment/Plan Assessment Response to Today's Session: Overall pt tolerates interventions well today with improving overall mobility and able to transfer to recliner at bedside with improved technique and use of walker. Plan Treatment/Interventions: Functional transfer training, Bed mobility, Equipment eval/education, Compensatory technique education PT - Next Appointment: 06/08/22 Goals: Multi-Disciplinary Problems (from Physical Therapy) Active Problems Problem: PT [facility] Start Date: 05/08/22 Goal Start Date End Date [facility] 1 05/08/22 -- Goal Details: Pt will SPT from bed to w/c min A w/ most appropriate assistive device. Goal Start Date End Date [facility] 2 05/08/22 -- Goal Details: Pt will stand for 30 sec CGA with most appropriate assistive device. Timed Code Treatment Minutes Untimed Code Treatment Minutes Total Treatment Time The skills of this therapist were necessary for the patient to work toward completing their goals during today s therapy session. In the event of this patient s discharge from [facility] prior to completingtherapy services, this note will stand as the current PT Discharge Summary. * Tin Carnes MD - 06/06/2022 12:16 PM EDT Daily Progress Note Subjective Patient was seen and examined at the bedside Was resting in bed very deep in sleep was woken up for exam Reports that he is feeling tired and wants to go back to sleep -denies any new complaints Objective Vital signs in last 24 hours: Temp: [36.1 C (97 F)-37.1 C (98.8 F)] 36.1 C (97 F) Heart Rate: [71-87] 71 Resp: [12-18] 12 BP: (126-163)/(68-75) 126/75 Intake/Output last 3 shifts: I/O last 3 completed shifts: In: 1578 (15 mL/kg) [P.O.:1578] Out: 3050 (29.1 mL/kg) [Urine:3050 (0.8 mL/kg/hr)] Weight: 104.9 kg Intake/Output this shift: I/O this shift: In: - Out: 850 [Urine:850] Physical Exam General Appearance: awake, alert, oriented, in no acute distress Skin: skin color, texture, turgor are normal Head/Face: NCAT Respiratory- normal expansion. Clear to auscultation. No rales, rhonchi, or wheezing. Cardiovascular- RRR, no murmur, rub or gallop. No lower extremity edema GI soft, non-tender, non-distended Musculoskeletal: Strength normal, no cyanosis, clubbing Neurologic: Strength and sensation grossly normal Assessment/Plan Principal Problem: PTSD (post-traumatic stress disorder) Active Problems: Type 2 diabetes mellitus Hypertension Anemia Chronic ulcer of left foot Occipital neuralgia of left side Chronic kidney disease, stage III (moderate) Assessment and plan 61-year-old gentleman with a past medical history of depression, hypertension, type 2 diabetes mellitus, PTSD, and urinary retention with chronic Todd catheter who initially presented to the emergency department on 05/01/2022 after he became aggressive towards staff at [facility] threatening to kill people. Patient was urgently discharged from [facility] and sent to ED by squad and law enforcement. Patient hasremained calm and cooperative since admission without further outbursts. Evaluated by psychiatry who feels that the patient's underlying psychiatric problem is chronic in nature related to his depression and PTSD. He was evaluated by neurology secondary to occipital neuralgia with follow-up CT headwithout acute pathology with recommendation for continuing gabapentin and adding Depakote. Patient denies any new complaints. Social work attempting difficult placement. Denied after onsite visit by local facility. New referral placed in [place]. Todd catheter exchanged 06/02/22. Posttraumatic stress disorder With episode of aggressive behavior at [facility]. Transported to ED and pink slipped by police. Discharged from ECF. Evaluated by psychiatry who does not feel patient is risk of harming himself or others. Unfortunately now a difficult ECF placement. Hypertension Continue amlodipine. Type 2 diabetes mellitus Continue home medications, sliding scale and long-acting insulin. Occipital neuralgia Recent history of daily headaches. Head CT without acute pathology. Evaluated by neurology who has adjusted Neurontin and added Depakote. Chronic urinary retention Continue chronic Todd catheter. Exchanged 06/02/2022. LOS: 0 days * Karen Lock, DO - 06/05/2022 10:23 AM EDT Daily Progress Note Subjective 61-year-old gentleman with a past medical history of depression, hypertension, type 2 diabetes mellitus, PTSD, and urinary retention with chronic Todd catheter who initially presented to the emergency department on 05/01/2022 after he became aggressive towards staff at [facility] threatening to kill people. Patient was urgently discharged from [facility] and sent to ED by squad and law enforcement. Patient hasremained calm and cooperative since admission without further outbursts. Evaluated by psychiatry who feels that the patient's underlying psychiatric problem is chronic in nature related to his depression and PTSD. He was evaluated by neurology secondary to occipital neuralgia with follow-up CT headwithout acute pathology with recommendation for continuing gabapentin and adding Depakote. Patient denies any new complaints. Social work attempting difficult placement. Denied after onsite visit by local facility. New referral placed in [place]. Todd catheter exchanged 06/02/22. Objective Vital signs in last 24 hours: Temp: [36.4 C (97.6 F)-37.1 C (98.8 F)] 36.5 C (97.7 F) Heart Rate: [73-81] 73 Resp: [11-22] 12 BP: (130-153)/(69-77) 134/73 Intake/Output last 3 shifts: I/O last 3 completed shifts: In: 3340 (31.8 mL/kg) [P.O.:3340] Out: 2750 (26.2 mL/kg) [Urine:2750 (0.7 mL/kg/hr)] Weight: 104.9 kg Intake/Output this shift: I/O this shift: In: 118 [P.O.:118] Out: 400 [Urine:400] Physical Exam General Appearance: awake, alert, oriented, in no acute distress Skin: skin color, texture, turgor are normal Head/Face: NCAT Eyes: Pupils- PERRL Ears: External- normal and Hearing- bilateral- normal to conversation Mouth/Throat: Mucosa moist, no lesions Neck: neck- supple, trachea midline Lungs: Normal expansion. Clear to auscultation. No rales, rhonchi, or wheezing. Heart: RRR, no murmur, rub or gallop. No lower extremity edema Abdomen: Soft, non-tender, non-distended Musculoskeletal: Strength normal, no cyanosis, clubbing Neurologic: Strength and sensation grossly normal Psych: Alert and oriented x3 Assessment/Plan Principal Problem: PTSD (post-traumatic stress disorder) Active Problems: Type 2 diabetes mellitus Hypertension Anemia Chronic ulcer of left foot Occipital neuralgia of left side Chronic kidney disease, stage III (moderate) Posttraumatic stress disorder With episode of aggressive behavior at ECF. Transported to ED and pink slipped by police. Discharged from ECF. Evaluated by psychiatry who does not feel patient is risk of harming himself or others. Unfortunately now a difficult ECF placement. Hypertension Continue amlodipine. Type 2 diabetes mellitus Continue home medications, sliding scale and long-acting insulin. Occipital neuralgia Recent history of daily headaches. Head CT without acute pathology. Evaluated by neurology who has adjusted Neurontin and added Depakote. Chronic urinary retention Continue chronic Todd catheter. Exchanged 06/02/2022. LOS: 0 days * Marco Kelley PTA - 06/05/2022 8:56 AM EDT Physical Therapy Physical Therapy Treatment Patient Name: Mikayla Pappas Today's Date: 06/05/2022 Subjective Pt was cleared to participate in PT today by nursing. Pt resting in bed upon arrival to room and agrees to participate in PT today. Upon completion of session pt sits in recliner at bedside with LE elevated alarm on, call light/phone and all other needs in reach. Patient Active Problem List Diagnosis Type 2 diabetes mellitus with right diabetic foot ulcer Depression Type 2 diabetes mellitus WPW (Cstzi-Wyjrkkmdn-Jrgbd syndrome) Stroke (CMS/HCC) Hypertension Orthostatic hypotension Right bundle branch block Obesity LORENA (obstructive sleep apnea) Diabetic neuropathy GERD (gastroesophageal reflux disease) Anemia Chronic ulcer of left foot Abnormal EKG Abnormal gait Amputated below knee (CMS/HCC) Amputated toe of right foot At risk for falls At risk for venous thromboembolism (VTE) Cellulitis, unspecified Chest pain Elevated blood-pressure reading, without diagnosis of hypertension Elevated C-reactive protein (CRP) Elevated troponin Encounter for change or removal of nonsurgical wound dressing Gross hematuria Hypercholesterolemia Hyperglycemia due to type 2 diabetes mellitus (CMS/HCC) Hypo-osmolality and hyponatremia Hypospadias, penile Impacted cerumen Impaired cognition Impairment of balance Neurogenic bladder Neuropathy Other specified postprocedural states Overactive bladder Personal history of other endocrine, nutritional and metabolic disease Personal history of transient ischemic attack (TIA), and cerebral infarction without residual deficits Presence of urogenital implants Recurrent major depression in remission Sepsis Tubulo-interstitial nephritis, not specified as acute or chronic Unspecified hydronephrosis Urinary tract infection, site not specified Weakness PTSD (post-traumatic stress disorder) Occipital neuralgia of left side Chronic kidney disease, stage III (moderate) Pain Objective General Visit Information: PT Received On: 06/05/22 Response to Previous Treatment: Patient with no complaints from previous session. General Assessments: Treatment: Therapeutic Exercise: Therapeutic Exercise?: Yes -: quad set 2 x 10 -: SLR x 10 -: SAQ 2 x 10 -: heel slides 2 x 10 -: hip abd/add 2 x 10 Therapeutic Activity: Therapeutic Activity?: Yes -: Pt resting in bed upon arrival to room. Pt completes ther ex in supine without increase in general discomfort expressed. Bed mobilty completed today with min assist extra time slow moving. Pt sitsat EOB with good balance. Sit to stand with Mod assist cues needed for technique. Pt completes stand pivot transfer with FWW from bed to recliner with mod assist and sits with fair eccentric control.Pt positioned for comfort with alarm on, call light/phone and all other needs in reach. Bed Mobility: Bed Mobility: Yes Bed Mobility From 1: Supine Bed Mobility Type 1: To Bed Mobility to 1: Short sit Level of Assistance 1: Minimum assistance Bed Mobility Comments 1: increased time needed use of bedrail Transfers: Transfer?: Yes Transfer From 1: Bed, Sit Transfer Type 1: To and from Transfer to 1: Stand Technique 1: Sit to stand, Stand to sit, Stand pivot Transfer Device 1: FWW, gait belt Transfer Level of Assistance 1: Moderate assistance Trials/Comments 1: Cues needed for technique Assessment/Plan Assessment Response to Today's Session: Overall pt tolerates interventions well today with improving overall mobility and able to transfer to recliner at bedside with improved technique and use of walker. Plan Treatment/Interventions: Functional transfer training, LE strengthening/ROM, Endurance training, Equipment eval/education, Bed mobility, Compensatory technique education PT - Next Appointment: 06/06/22 Goals: Multi-Disciplinary Problems (from Physical Therapy) Active Problems Problem: PT [facility] Start Date: 05/08/22 Goal Start Date End Date [facility] 1 05/08/22 -- Goal Details: Pt will SPT from bed to w/c min A w/ most appropriate assistive device. Goal Start Date End Date [facility] 2 05/08/22 -- Goal Details: Pt will stand for 30 sec CGA with most appropriate assistive device. Timed Code Treatment Minutes Untimed Code Treatment Minutes Total Treatment Time The skills of this therapist were necessary for the patient to work toward completing their goals during today s therapy session. In the event of this patient s discharge from [facility] prior to completingtherapy services, this note will stand as the current PT Discharge Summary. * Marco Kelley, [employer]IAISON OFFICER - 06/04/2022 1:38 PM EDT Physical Therapy Physical Therapy Treatment Patient Name: Mikayla Pappas Today's Date: 06/04/2022 Subjective Pt was cleared to participate in PT today by nursing. Pt resting in bed upon arrival to room and agrees to participate in PT today. Upon completion of session pt sits in recliner at bedside and positioned for comfort with LE elevated, alarm on ,call light/phone and all other needs in reach. Patient Active Problem List Diagnosis Type 2 diabetes mellitus with right diabetic foot ulcer Depression Type 2 diabetes mellitus WPW (Jndjf-Dojydhvwp-Ztwbh syndrome) Stroke (CMS/HCC) Hypertension Orthostatic hypotension Right bundle branch block Obesity LORENA (obstructive sleep apnea) Diabetic neuropathy GERD (gastroesophageal reflux disease) Anemia Chronic ulcer of left foot Abnormal EKG Abnormal gait Amputated below knee (CMS/HCC) Amputated toe of right foot At risk for falls At risk for venous thromboembolism (VTE) Cellulitis, unspecified Chest pain Elevated blood-pressure reading, without diagnosis of hypertension Elevated C-reactive protein (CRP) Elevated troponin Encounter for change or removal of nonsurgical wound dressing Gross hematuria Hypercholesterolemia Hyperglycemia due to type 2 diabetes mellitus (CMS/HCC) Hypo-osmolality and hyponatremia Hypospadias, penile Impacted cerumen Impaired cognition Impairment of balance Neurogenic bladder Neuropathy Other specified postprocedural states Overactive bladder Personal history of other endocrine, nutritional and metabolic disease Personal history of transient ischemic attack (TIA), and cerebral infarction without residual deficits Presence of urogenital implants Recurrent major depression in remission Sepsis Tubulo-interstitial nephritis, not specified as acute or chronic Unspecified hydronephrosis Urinary tract infection, site not specified Weakness PTSD (post-traumatic stress disorder) Occipital neuralgia of left side Chronic kidney disease, stage III (moderate) Pain Objective General Visit Information: PT Received On: 06/04/22 Response to Previous Treatment: Patient with no complaints from previous session. General Assessments: Treatment: Therapeutic Activity: Therapeutic Activity?: Yes -: Pt resting in bed upon arrival to room. Pt completes ther ex in supine without increase in general discomfort expressed. Bed mobilty completed today with min assist extra time slow moving. Pt sitsat EOB with good balance. Sit to stand with Mod assist cues needed for technique. Pt completes stand pivot transfer with FWW from bed to recliner with mod assist and sits with fair eccentric control.Pt positioned for comfort with alarm on, call light/phone and all other needs in reach. Assessment/Plan Assessment Response to Today's Session: Overall pt tolerates interventions well today with improving overall mobility and able to transfer to recliner at bedside with improved technique and use of walker. Plan Treatment/Interventions: Functional transfer training, LE strengthening/ROM, Endurance training, Equipment eval/education, Bed mobility, Compensatory technique education PT - Next Appointment: 06/05/22 Goals: Multi-Disciplinary Problems (from Physical Therapy) Active Problems Problem: PT [facility] Start Date: 05/08/22 Goal Start Date End Date [facility] - [facility] 1 05/08/22 -- Goal Details: Pt will SPT from bed to w/c min A w/ most appropriate assistive device. Goal Start Date End Date [facility] - M[facility] 2 05/08/22 -- Goal Details: Pt will stand for 30 sec CGA with most appropriate assistive device. Timed Code Treatment Minutes Untimed Code Treatment Minutes Total Treatment Time The skills of this therapist were necessary for the patient to work toward completing their goals during today s therapy session. In the event of this patient s discharge from [facility] prior to completingtherapy services, this note will stand as the current PT Discharge Summary. * Karen Lock, DO - 06/04/2022 12:33 PM EDT Daily Progress Note Subjective 61-year-old gentleman with a past medical history of depression, hypertension, type 2 diabetes mellitus, PTSD, and urinary retention with chronic Todd catheter who initially presented to the emergency department on 05/01/2022 after he became aggressive towards staff at [facility] threatening to kill people. Patient was urgently discharged from [facility] and sent to ED by squad and law enforcement. Patient hasremained calm and cooperative since admission without further outbursts. Evaluated by psychiatry who feels that the patient's underlying psychiatric problem is chronic in nature related to his depression and PTSD. He was evaluated by neurology secondary to occipital neuralgia with follow-up CT headwithout acute pathology with recommendation for continuing gabapentin and adding Depakote. Patient denies any new complaints. Social work attempting difficult placement. Denied after onsite visit by local facility. New referral placed in [place]. Todd catheter exchanged 06/02/22. Objective Vital signs in last 24 hours: Temp: [36.3 C (97.4 F)-36.7 C (98 F)] 36.7 C (98 F) Heart Rate: [71-89] 78 Resp: [-] 22 BP: (131-146)/(66-77) 145/77 Intake/Output last 3 shifts: I/O last 3 completed shifts: In: 2415 (23 mL/kg) [P.O.:2415] Out: 2550 (24.3 mL/kg) [Urine:2550 (0.7 mL/kg/hr)] Weight: 104.9 kg Intake/Output this shift: I/O this shift: In: 500 [P.O.:500] Out: 400 [Urine:400] Physical Exam General Appearance: awake, alert, oriented, in no acute distress Skin: skin color, texture, turgor are normal Head/Face: NCAT Eyes: Pupils- PERRL Ears: External- normal and Hearing- bilateral- normal to conversation Mouth/Throat: Mucosa moist, no lesions Neck: neck- supple, trachea midline Lungs: Normal expansion. Clear to auscultation. No rales, rhonchi, or wheezing. Heart: RRR, no murmur, rub or gallop. No lower extremity edema Abdomen: Soft, non-tender, non-distended Musculoskeletal: Strength normal, no cyanosis, clubbing Neurologic: Strength and sensation grossly normal Psych: Alert and oriented x3 Assessment/Plan Principal Problem: PTSD (post-traumatic stress disorder) Active Problems: Type 2 diabetes mellitus Hypertension Anemia Chronic ulcer of left foot Occipital neuralgia of left side Chronic kidney disease, stage III (moderate) Posttraumatic stress disorder With episode of aggressive behavior at [facility]CF. Transported to ED and pink slipped by police. Discharged from ECF. Evaluated by psychiatry who does not feel patient is risk of harming himself or others. Unfortunately now a difficult ECF placement. Hypertension Continue amlodipine. Type 2 diabetes mellitus Continue home medications, sliding scale and long-acting insulin. Occipital neuralgia Recent history of daily headaches. Head CT without acute pathology. Evaluated by neurology who has adjusted Neurontin and added Depakote. Chronic urinary retention Continue chronic Todd catheter. Exchanged 06/02/2022. LOS: 0 days * Karen Lock DO - 06/03/2022 1:01 PM EDT Daily Progress Note Subjective 61-year-old gentleman with a past medical history of depression, hypertension, type 2 diabetes mellitus, PTSD, and urinary retention with chronic Todd catheter who initially presented to the emergency department on 05/01/2022 after he became aggressive towards staff at [facility] threatening to kill people. Patient was urgently discharged from [facility] and sent to ED by squad and law enforcement. Patient hasremained calm and cooperative since admission without further outbursts. Evaluated by psychiatry who feels that the patient's underlying psychiatric problem is chronic in nature related to his depression and PTSD. He was evaluated by neurology secondary to occipital neuralgia with follow-up CT headwithout acute pathology with recommendation for continuing gabapentin and adding Depakote. Patient denies any new complaints. Social work attempting difficult placement. Denied after onsite visit by local facility. New referral placed in [place]. Todd catheter exchanged yesterday. Objective Vital signs in last 24 hours: Temp: [36.3 C (97.4 F)-36.9 C (98.5 F)] 36.7 C (98.1 F) Heart Rate: [73-84] 78 Resp: [11-20] 20 BP: (134-148)/(67-75) 144/67 Intake/Output last 3 shifts: I/O last 3 completed shifts: In: 1830 (17.4 mL/kg) [P.O.:1830] Out: 3650 (34.8 mL/kg) [Urine:3650 (1 mL/kg/hr)] Weight: 104.9 kg Intake/Output this shift: I/O this shift: In: 240 [P.O.:240] Out: 700 [Urine:700] Physical Exam General Appearance: awake, alert, oriented, in no acute distress Skin: skin color, texture, turgor are normal Head/Face: NCAT Eyes: Pupils- PERRL Ears: External- normal and Hearing- bilateral- normal to conversation Mouth/Throat: Mucosa moist, no lesions Neck: neck- supple, trachea midline Lungs: Normal expansion. Clear to auscultation. No rales, rhonchi, or wheezing. Heart: RRR, no murmur, rub or gallop. No lower extremity edema Abdomen: Soft, non-tender, non-distended Musculoskeletal: Strength normal, no cyanosis, clubbing Neurologic: Strength and sensation grossly normal Psych: Alert and oriented x3 Assessment/Plan Principal Problem: PTSD (post-traumatic stress disorder) Active Problems: Type 2 diabetes mellitus Hypertension Anemia Chronic ulcer of left foot Occipital neuralgia of left side Chronic kidney disease, stage III (moderate) Posttraumatic stress disorder With episode of aggressive behavior at [facility]. Transported to ED and pink slipped by police. Discharged from ECF. Evaluated by psychiatry who does not feel patient is risk of harming himself or others. Unfortunately now a difficult ECF placement. Hypertension Continue amlodipine. Type 2 diabetes mellitus Continue home medications, sliding scale and long-acting insulin. Occipital neuralgia Recent history of daily headaches. Head CT without acute pathology. Evaluated by neurology who has adjusted Neurontin and added Depakote. Chronic urinary retention Continue chronic Todd catheter. Exchanged 06/02/2022. LOS: 0 days * Noelle Forte, CARYL - 06/03/2022 9:59 AM EDT Physical Therapy Physical Therapy Treatment Patient Name: Mikayla Pappas Today's Date: 06/03/2022 Subjective pt Supine with head of bed elevated and agreeable to PT services. States he would love to get up to the chair again. Patient Active Problem List Diagnosis Type 2 diabetes mellitus with right diabetic foot ulcer Depression Type 2 diabetes mellitus WPW (Jkldp-Ydcrkizxa-Rmcyk syndrome) Stroke (CMS/HCC) Hypertension Orthostatic hypotension Right bundle branch block Obesity LORENA (obstructive sleep apnea) Diabetic neuropathy GERD (gastroesophageal reflux disease) Anemia Chronic ulcer of left foot Abnormal EKG Abnormal gait Amputated below knee (CMS/HCC) Amputated toe of right foot At risk for falls At risk for venous thromboembolism (VTE) Cellulitis, unspecified Chest pain Elevated blood-pressure reading, without diagnosis of hypertension Elevated C-reactive protein (CRP) Elevated troponin Encounter for change or removal of nonsurgical wound dressing Gross hematuria Hypercholesterolemia Hyperglycemia due to type 2 diabetes mellitus (CMS/HCC) Hypo-osmolality and hyponatremia Hypospadias, penile Impacted cerumen Impaired cognition Impairment of balance Neurogenic bladder Neuropathy Other specified postprocedural states Overactive bladder Personal history of other endocrine, nutritional and metabolic disease Personal history of transient ischemic attack (TIA), and cerebral infarction without residual deficits Presence of urogenital implants Recurrent major depression in remission Sepsis Tubulo-interstitial nephritis, not specified as acute or chronic Unspecified hydronephrosis Urinary tract infection, site not specified Weakness PTSD (post-traumatic stress disorder) Occipital neuralgia of left side Chronic kidney disease, stage III (moderate) Objective General Visit Information: PT Received On: 06/03/22 Response to Previous Treatment: Patient with no complaints from previous session. General Assessments: Pt able to complete transfer from bed to chair with improved ease this date but pt still requires mod assist and VC's to squeeze gluts and stand erect. Treatment: Gait Training: Gait Training?: Yes -: Gait with use of FWW and mod assist x 1 perform from bed to recliner at bedside. pt able to pivot on his (L) LE this date. Bed Mobility: Bed Mobility Comments 1: Pt transfers from supine to sitting edge of bed with min assist x 1. Transfers: Trials/Comments 1: Pt transfers sit to stand from elevated bed mod assist x 1 and stand to sit in recliner mod assist x 1 to control descent. Assessment/Plan Plan Treatment/Interventions: Functional transfer training, Bed mobility, Gait training Equipment Recommended: fww PT - Next Appointment: 06/04/22 PT - OK to Discharge: Yes Goals: Multi-Disciplinary Problems (from Physical Therapy) Active Problems Problem: PT [facility] Start Date: 05/08/22 Goal Start Date End Date [facility] 1 05/08/22 -- Goal Details: Pt will SPT from bed to w/c min A w/ most appropriate assistive device. Goal Start Date End Date [facility] 2 05/08/22 -- Goal Details: Pt will stand for 30 sec CGA with most appropriate assistive device. Timed Code Treatment Minutes PT Therapeutic Activity, Transfer Training Time Entry: 9 Total Treatment Time Start Time: 958 Stop Time: 1008 Time Calculation (min): 9 min The skills of this therapist were necessary for the patient to work toward completing their goals during today s therapy session. In the event of this patient s discharge from [facility] prior to completingtherapy services, this note will stand as the current PT Discharge Summary. * Karen Lock DO - 06/02/2022 12:58 PM EDT Daily Progress Note Subjective 61-year-old gentleman with a past medical history of depression, hypertension, type 2 diabetes mellitus, PTSD, and urinary retention with chronic Todd catheter who initially presented to the emergency department on 05/01/2022 after he became aggressive towards staff at [facility] threatening to kill people. Patient was urgently discharged from [facility] and sent to ED by squad and law enforcement. Patient hasremained calm and cooperative since admission without further outbursts. Evaluated by psychiatry who feels that the patient's underlying psychiatric problem is chronic in nature related to his depression and PTSD. He was evaluated by neurology secondary to occipital neuralgia with follow-up CT headwithout acute pathology with recommendation for continuing gabapentin and adding Depakote. Patient denies any new complaints. Social work attempting difficult placement. Denied after onsite visit by local facility. New referral placed in [place]. Objective Vital signs in last 24 hours: Temp: [36.4 C (97.5 F)-36.7 C (98.1 F)] 36.7 C (98.1 F) Heart Rate: [70-85] 70 Resp: [11-25] 18 BP: (131-150)/(68-75) 131/68 Intake/Output last 3 shifts: I/O last 3 completed shifts: In: 350 (3.3 mL/kg) [P.O.:350] Out: 2900 (27.6 mL/kg) [Urine:2900 (0.8 mL/kg/hr)] Weight: 105.1 kg Intake/Output this shift: I/O this shift: In: 240 [P.O.:240] Out: 600 [Urine:600] Physical Exam General Appearance: awake, alert, oriented, in no acute distress Skin: skin color, texture, turgor are normal Head/Face: NCAT Eyes: Pupils- PERRL Ears: External- normal and Hearing- bilateral- normal to conversation Mouth/Throat: Mucosa moist, no lesions Neck: neck- supple, trachea midline Lungs: Normal expansion. Clear to auscultation. No rales, rhonchi, or wheezing. Heart: RRR, no murmur, rub or gallop. No lower extremity edema Abdomen: Soft, non-tender, non-distended Musculoskeletal: Strength normal, no cyanosis, clubbing Neurologic: Strength and sensation grossly normal Psych: Alert and oriented x3 Assessment/Plan Principal Problem: PTSD (post-traumatic stress disorder) Active Problems: Type 2 diabetes mellitus Hypertension Anemia Chronic ulcer of left foot Occipital neuralgia of left side Chronic kidney disease, stage III (moderate) Posttraumatic stress disorder With episode of aggressive behavior at ECF. Transported to ED and pink slipped by police. Discharged from ECF. Evaluated by psychiatry who does not feel patient is risk of harming himself or others. Unfortunately now a difficult ECF placement. Hypertension Continue amlodipine. Type 2 diabetes mellitus Continue home medications, sliding scale and long-acting insulin. Occipital neuralgia Recent history of daily headaches. Head CT without acute pathology. Evaluated by neurology who has adjusted Neurontin and added Depakote. Chronic urinary retention Continue chronic Todd catheter. Will need exchanged this week. LOS: 0 days * Noelle Forte PTA - 06/02/2022 9:43 AM EDT Physical Therapy Physical Therapy Treatment Patient Name: Mikayla Pappas Today's Date: 06/02/2022 Subjective pt supine in bed with head of bed elevated. Pt agreeable to PT services. Pt reports it usually takes 2 people to get him up. States when he does get up he usually sits in the recliner all day. Patient Active Problem List Diagnosis Type 2 diabetes mellitus with right diabetic foot ulcer Depression Type 2 diabetes mellitus WPW (Logrf-Cuvefdbee-Ktiik syndrome) Stroke (CMS/HCC) Hypertension Orthostatic hypotension Right bundle branch block Obesity LORENA (obstructive sleep apnea) Diabetic neuropathy GERD (gastroesophageal reflux disease) Anemia Chronic ulcer of left foot Abnormal EKG Abnormal gait Amputated below knee (CMS/HCC) Amputated toe of right foot At risk for falls At risk for venous thromboembolism (VTE) Cellulitis, unspecified Chest pain Elevated blood-pressure reading, without diagnosis of hypertension Elevated C-reactive protein (CRP) Elevated troponin Encounter for change or removal of nonsurgical wound dressing Gross hematuria Hypercholesterolemia Hyperglycemia due to type 2 diabetes mellitus (CMS/HCC) Hypo-osmolality and hyponatremia Hypospadias, penile Impacted cerumen Impaired cognition Impairment of balance Neurogenic bladder Neuropathy Other specified postprocedural states Overactive bladder Personal history of other endocrine, nutritional and metabolic disease Personal history of transient ischemic attack (TIA), and cerebral infarction without residual deficits Presence of urogenital implants Recurrent major depression in remission Sepsis Tubulo-interstitial nephritis, not specified as acute or chronic Unspecified hydronephrosis Urinary tract infection, site not specified Weakness PTSD (post-traumatic stress disorder) Occipital neuralgia of left side Chronic kidney disease, stage III (moderate) Objective General Visit Information: PT Received On: 06/02/22 General Assessments: Sitting Balance: Sits without support for more than 30 sec Activity Tolerance Comments: fatigues quickly Treatment: Therapeutic Exercise: -: pt performs LAQ and marching in sitting position at edge of bed 15-20 reps each> -: *pt education to add holds to exercises 5-10 seconds to continue muscle endurance and strength and to add GS as well. Will provide pt handout. Bed Mobility: Bed Mobility Comments 1: Pt transfers supine to sitting edge of bed mod assist x 1. Able to sit (I). Transfers: Trials/Comments 1: pt transfers sit to stand with mod to max assist x 1 and use of FWW. Able to stand for 1-2 min but requires frequent VC's to tighten glutes and stand erect and not stand with hips backs and flexed forward. Pivot transfer from bed to recliner at bedside max assist x 1 with mod to max VC's to technique. Pt sits at edge of chair and able to push self back into recliner. Assessment/Plan Plan Treatment/Interventions: Functional transfer training, LE strengthening/ROM, Endurance training, Bed mobility PT - Next Appointment: 06/02/22 PT - OK to Discharge: Yes Goals: Multi-Disciplinary Problems (from Physical Therapy) Active Problems Problem: PT [facility] Start Date: 05/08/22 Goal Start Date End Date [facility] 1 05/08/22 -- Goal Details: Pt will SPT from bed to w/c min A w/ most appropriate assistive device. Goal Start Date End Date [facility] 2 05/08/22 -- Goal Details: Pt will stand for 30 sec CGA with most appropriate assistive device. Timed Code Treatment Minutes PT Therapeutic Activity, Transfer Training Time Entry: 15 Total Treatment Time Start Time: 942 Stop Time: 957 Time Calculation (min): 15 min The skills of this therapist were necessary for the patient to work toward completing their goals during today s therapy session. In the event of this patient s discharge from [facility] prior to completingtherapy services, this note will stand as the current PT Discharge Summary. * Karen Lock, DO - 06/01/2022 5:50 PM EDT Daily Progress Note Subjective 61-year-old gentleman with a past medical history of depression, hypertension, type 2 diabetes mellitus, PTSD, and urinary retention with chronic Todd catheter who initially presented to the emergency department on 05/01/2022 after he became aggressive towards staff at [facility] threatening to kill people. Patient was urgently discharged from [facility] and sent to ED by squad and law enforcement. Patient hasremained calm and cooperative since admission without further outbursts. Evaluated by psychiatry who feels that the patient's underlying psychiatric problem is chronic in nature related to his depression and PTSD. He was evaluated by neurology secondary to occipital neuralgia with follow-up CT headwithout acute pathology with recommendation for continuing gabapentin and adding Depakote. Patient denies any new complaints. Social work attempting difficult placement. Denied after onsite visit by local facility. Objective Vital signs in last 24 hours: Temp: [36.5 C (97.7 F)-36.8 C (98.3 F)] 36.7 C (98 F) Heart Rate: [72-88] 76 Resp: [14-18] 18 BP: (133-165)/(66-76) 136/70 Intake/Output last 3 shifts: I/O last 3 completed shifts: In: 1020 (9.7 mL/kg) [P.O.:1020] Out: 3050 (29 mL/kg) [Urine:3050 (0.8 mL/kg/hr)] Weight: 105.1 kg Intake/Output this shift: I/O this shift: In: - Out: 600 [Urine:600] Physical Exam General Appearance: awake, alert, oriented, in no acute distress Skin: skin color, texture, turgor are normal Head/Face: NCAT Eyes: Pupils- PERRL Ears: External- normal and Hearing- bilateral- normal to conversation Mouth/Throat: Mucosa moist, no lesions Neck: neck- supple, trachea midline Lungs: Normal expansion. Clear to auscultation. No rales, rhonchi, or wheezing. Heart: RRR, no murmur, rub or gallop. No lower extremity edema Abdomen: Soft, non-tender, non-distended Musculoskeletal: Strength normal, no cyanosis, clubbing Neurologic: Strength and sensation grossly normal Psych: Alert and oriented x3 Assessment/Plan Principal Problem: PTSD (post-traumatic stress disorder) Active Problems: Type 2 diabetes mellitus Hypertension Anemia Chronic ulcer of left foot Occipital neuralgia of left side Chronic kidney disease, stage III (moderate) Posttraumatic stress disorder With episode of aggressive behavior at ECF. Transported to ED and pink slipped by police. Discharged from ECF. Evaluated by psychiatry who does not feel patient is risk of harming himself or others. Unfortunately now a difficult ECF placement. Hypertension Continue amlodipine. Type 2 diabetes mellitus Continue home medications, sliding scale and long-acting insulin. Occipital neuralgia Recent history of daily headaches. Head CT without acute pathology. Evaluated by neurology who has adjusted Neurontin and added Depakote. Chronic urinary retention Continue chronic Todd catheter. Will need exchanged this week. LOS: 0 days * Karen Lock DO - 05/31/2022 11:53 AM EDT Daily Progress Note Subjective 61-year-old gentleman with a past medical history of depression, hypertension, type 2 diabetes mellitus, PTSD, and urinary retention with chronic Todd catheter who initially presented to the emergency department on 05/01/2022 after he became aggressive towards staff at [facility] threatening to kill people. Patient was urgently discharged from [facility] and sent to ED by squad and law enforcement. Patient hasremained calm and cooperative since admission without further outbursts. Evaluated by psychiatry who feels that the patient's underlying psychiatric problem is chronic in nature related to his depression and PTSD. He was evaluated by neurology secondary to occipital neuralgia with follow-up CT headwithout acute pathology with recommendation for continuing gabapentin and adding Depakote. Patient denies any new complaints. Social work attempting difficult placement. Petemckinley Niño will be doing an onsite evaluation today to determine acceptance. He will be a precert if accepted. Objective Vital signs in last 24 hours: Temp: [36.6 C (97.8 F)-37.7 C (99.8 F)] 36.6 C (97.8 F) Heart Rate: [69-80] 73 Resp: [14-28] 28 BP: (128-148)/(65-73) 139/69 Intake/Output last 3 shifts: I/O last 3 completed shifts: In: 1620 (15.2 mL/kg) [P.O.:1620] Out: 3250 (30.4 mL/kg) [Urine:3250 (0.8 mL/kg/hr)] Weight: 106.8 kg Intake/Output this shift: No intake/output data recorded. Physical Exam General Appearance: awake, alert, oriented, in no acute distress Skin: skin color, texture, turgor are normal Head/Face: NCAT Eyes: Pupils- PERRL Ears: External- normal and Hearing- bilateral- normal to conversation Mouth/Throat: Mucosa moist, no lesions Neck: neck- supple, trachea midline Lungs: Normal expansion. Clear to auscultation. No rales, rhonchi, or wheezing. Heart: RRR, no murmur, rub or gallop. No lower extremity edema Abdomen: Soft, non-tender, non-distended Musculoskeletal: Strength normal, no cyanosis, clubbing Neurologic: Strength and sensation grossly normal Psych: Alert and oriented x3 Assessment/Plan Principal Problem: PTSD (post-traumatic stress disorder) Active Problems: Type 2 diabetes mellitus Hypertension Anemia Chronic ulcer of left foot Occipital neuralgia of left side Chronic kidney disease, stage III (moderate) Posttraumatic stress disorder With episode of aggressive behavior at ECF. Transported to ED and pink slipped by police. Discharged from ECF. Evaluated by psychiatry who does not feel patient is risk of harming himself or others. Unfortunately now a difficult ECF placement. Hypertension Continue amlodipine. Type 2 diabetes mellitus Continue home medications, sliding scale and long-acting insulin. Occipital neuralgia Recent history of daily headaches. Head CT without acute pathology. Evaluated by neurology who has adjusted Neurontin and added Depakote. Chronic urinary retention Continue chronic Todd catheter. Will need exchanged this week. LOS: 0 days * Marco Kelley PTA - 05/31/2022 10:39 AM EDT Physical Therapy Physical Therapy Treatment Patient Name: Mikayla Pappas Today's Date: 05/31/2022 Subjective Pt was cleared to participate in PT today by nursing. Pt resting in bed upon arrival to room and agrees to participate in PT today. Upon completion of session pt sits in recliner at bedside and positioned for comfort with alarm on ,call light/phone and all other needs in reach. Patient Active Problem List Diagnosis Type 2 diabetes mellitus with right diabetic foot ulcer Depression Type 2 diabetes mellitus WPW (Pjsry-Eapdpgwoi-Ineup syndrome) Stroke (CMS/HCC) Hypertension Orthostatic hypotension Right bundle branch block Obesity LORENA (obstructive sleep apnea) Diabetic neuropathy GERD (gastroesophageal reflux disease) Anemia Chronic ulcer of left foot Abnormal EKG Abnormal gait Amputated below knee (CMS/HCC) Amputated toe of right foot At risk for falls At risk for venous thromboembolism (VTE) Cellulitis, unspecified Chest pain Elevated blood-pressure reading, without diagnosis of hypertension Elevated C-reactive protein (CRP) Elevated troponin Encounter for change or removal of nonsurgical wound dressing Gross hematuria Hypercholesterolemia Hyperglycemia due to type 2 diabetes mellitus (CMS/HCC) Hypo-osmolality and hyponatremia Hypospadias, penile Impacted cerumen Impaired cognition Impairment of balance Neurogenic bladder Neuropathy Other specified postprocedural states Overactive bladder Personal history of other endocrine, nutritional and metabolic disease Personal history of transient ischemic attack (TIA), and cerebral infarction without residual deficits Presence of urogenital implants Recurrent major depression in remission Sepsis Tubulo-interstitial nephritis, not specified as acute or chronic Unspecified hydronephrosis Urinary tract infection, site not specified Weakness PTSD (post-traumatic stress disorder) Occipital neuralgia of left side Chronic kidney disease, stage III (moderate) Pain Objective General Visit Information: PT Received On: 05/31/22 Response to Previous Treatment: Patient with no complaints from previous session., Patient reporting fatigue but able to participate. General Assessments: Treatment: Therapeutic Exercise: Therapeutic Exercise?: Yes -: seated right bka-laq, hip flex x 10 reps -: left le-ap, laq, hip flex x 10 reps -: marches x10 -: LAQ x10 Therapeutic Activity: Therapeutic Activity?: Yes -: Pt in bed upon arrival to room. Bed mobility completed with pt able to transfer supine to sit atEOB with min assist and sits at EOB with good balance on air mattress. Sit to stand with min assistFWW from bed flexed with cues needed for postural correction. Pt was able to complete pivot transfer from bed to recliner with min assist, cues needed for technique and sits with fair eccentric control. Pt completes ther ex with no complaints suipne and seated in recliner. Pt positioned for comfortwith LE elevated all needs in reach. Bed Mobility: Bed Mobility: Yes Bed Mobility From 1: Supine Bed Mobility Type 1: To Bed Mobility to 1: Short sit Level of Assistance 1: Minimum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 exceed 4 tablets in 24 hours magnesium hydroxide (Milk of Magnesia) 400 mg/5 mL suspension 30 mL, oral, Daily PRN, Give if no BMin 3 days. Do not give more than 3 consecutive doses. Assess bowel sounds, if no results from MOM in 12 hours go to step #2. melatonin 5 mg, oral, Nightly NovoLOG U-100 Insulin aspart 100 unit/mL injection subcutaneous, See admin instructions, Inject perSliding Scale before meals and bedtime. If: 0-159 = 0 units 160-199 = 2 units 200-249 = 4 units 250-299 = 6 units 300-349 = 8 units 350-399 = 10 units If over 400 = 12 units and call PA ondansetron ODT (ZOFRAN ODT) 4 mg, oral, Every 6 hours PRN oxybutynin XL (DITROPAN-XL) 10 mg, oral, Daily oxyCODONE-acetaminophen (Percocet) 5-325 mg tablet 1 tablet, oral, Every 6 hours PRN peg 242-[id number]-sqikpmvf 1-0.2-0.2 % drops 1 drop, Both Eyes, As needed polyethylene glycol (GLYCOLAX) 17 g, oral, Daily SITagliptin (JANUVIA) 100 mg, oral, Daily sodium phosphates (Fleet Enema) 19-7 gram/118 mL enema enema 1 enema, rectal, See admin instructions, Insert 1 applicator rectally as needed for constipation. Administer if no BM in 12 hours following the glycerin suppository. Assess bowel sounds. If no results from enema go to Step #4. tiZANidine (ZANAFLEX) 2 mg, oral, 2 times daily Current Facility-Administered Medications Medication Dose Route Frequency Provider Last Rate Last Admin acetaminophen (Tylenol) 160 mg/5 mL liquid 650 mg 650 mg oral q4h PRN Blair Malin MD acetaminophen (Tylenol) suppository 650 mg 650 mg rectal q4h PRN Blair Malin MD acetaminophen (Tylenol) tablet 650 mg 650 mg oral q4h PRN Blair Malin MD 650 mg at 05/15/22 2230 amLODIPine (Norvasc) tablet 10 mg 10 mg oral Daily Blair Malin MD 10 mg at 05/22/22 0808 aspirin EC tablet 81 mg 81 mg oral Daily Blair Malin MD 81 mg at 05/22/22 0810 collagenase 250 unit/gram ointment Topical Daily May U MD Nasreen Given at 05/20/22 1841 cyanocobalamin (Vitamin B-12) tablet 500 mcg 500 mcg oral Daily Blair Malin MD 500 mcg at 05/22/22 0810 dextrose 50% solution 25 mL 25 mL intravenous PRN Blair Malin MD Or glucagon injection 1 mg 1 mg intravenous PRN Blair Malin MD Or glucagon injection 1 mg 1 mg subcutaneous PRN Blair Malin MD diclofenac (Voltaren) 1 % topical gel 1 application 1 application Topical 4x daily Blair Malin MD1 application at 05/22/22 0800 divalproex (Depakote ER) 24 hr tablet 500 mg 500 mg oral Daily Zaid Leon MD 500 mg at 05/22/22 0809 docusate sodium (Colace) capsule 100 mg 100 mg oral BID PRN Blair Malin MD DULoxetine (Cymbalta) DR capsule 90 mg 90 mg oral Nightly Blair Malin MD 90 mg at 05/21/22 205 ergocalciferol (Vitamin D-2) capsule 50,000 Units 50,000 Units oral Weekly Blair Malin MD 50,000 Units at 05/12/22 1038 ferrous sulfate EC tablet 325 mg 325 mg oral Daily with breakfast Blair Malin MD 325 mg at 05/22/22 0810 flurbiprofen (Ocufen) 0.03 % ophthalmic solution 1 drop 1 drop Both Eyes BID Blair Malin MD 1 drop at 05/22/22 0900 gabapentin (Neurontin) capsule 100 mg 100 mg oral Daily May U MD Nasreen 100 mg at 05/22/22 0809 gabapentin (Neurontin) capsule 300 mg 300 mg oral Nightly May U MD Nasreen 300 mg at 05/21/222057 glimepiride (Amaryl) tablet 2 mg 2 mg oral Daily with breakfast Blair Malin MD 2 mg at 05/22/22 0811 ibuprofen tablet 400 mg 400 mg oral q8h PRN V. Olya Huitron MD 400 mg at 05/04/22 0513 insulin aspart (NovoLOG) 100 unit/mL (3 mL) injection 0-14 Units 0-14 Units subcutaneous TID with meals Blair Malin MD 4 Units at 05/21/22 1246 insulin aspart (NovoLOG) 100 unit/mL (3 mL) injection 0-7 Units 0-7 Units subcutaneous Nightly Blair Malin MD 3 Units at 05/16/22 2100 insulin detemir (Levemir) 100 unit/mL (3 mL) injection 22 Units 22 Units subcutaneous q AM Blair Malin MD 22 Units at 05/22/22 0851 lidocaine (Lidoderm) 5 % patch 1 patch 1 patch topical (top) Daily Blair Malin MD 1 patch at 05/22/22 0811 lidocaine (LMX) 4 % cream 1 application 1 application Topical PRN Blair Malin MD magnesium hydroxide (Milk of Magnesia) 400 mg/5 mL suspension 30 mL 30 mL oral Daily PRN Blair Rucker MD melatonin tablet 6 mg 6 mg oral Nightly Blair Malin MD 6 mg at 05/21/222057 naloxone (Narcan) injection 0.4 mg 0.4 mg intravenous PRN Blair Malin MD nitroglycerin (Nitrostat) SL tablet 0.4 mg 0.4 mg sublingual q5 min PRN Blair Malin MD ondansetron (Zofran) injection 4 mg 4 mg intravenous q8h PRN Blair Malin MD oxybutynin (Ditropan) tablet 5 mg 5 mg oral BID Blair Malin MD 5 mg at 05/22/22 0811 oxyCODONE-acetaminophen (Percocet) 5-325 mg per tablet 1 tablet 1 tablet oral q6h PRN Blair Malin MD 1 tablet at 05/07/222050 oxygen (O2) gas inhalation See admin instructions Blair Malin MD polyethylene glycol (Glycolax) packet 17 g 17 g oral Daily Blair Malin MD 17 g at 05/22/22 0811 rosuvastatin (Crestor) tablet 40 mg 40 mg oral Daily Blair Malin MD 40 mg at 05/22/22 0809 SITagliptin (Januvia) tablet 100 mg 100 mg oral Daily Blair Malin MD 100 mg at 05/22/22 0811 sodium chloride 0.9 % infusion 250 mL 250 mL intravenous KVO Blair Malin MD sodium chloride flush(floorstock) 3-15 mL 3-15 mL intravenous PRN Blair Malin MD tiZANidine (Zanaflex) tablet 2 mg 2 mg oral BID Blair Malin MD 2 mg at 05/22/22 0809 Review of Systems reviewed Physical Exam reviewed Last Recorded Vitals Blood pressure 139/77, pulse 66, temperature 36.7 C (98 F), temperature source Oral, resp. rate 18,height 1.727 m (5' 8 ), weight 105 kg (231 lb 7.7 oz), SpO2 98 %. Relevant Results Assessment/Plan Principal Problem: Occipital neuralgia of left side Active Problems: Type 2 diabetes mellitus Hypertension Urinary retention Anemia Chronic ulcer of left foot Aggressive behavior PTSD (post-traumatic stress disorder) Chronic indwelling Todd catheter Chronic daily headache Assessment/Plan: Please see my consult follow up of 05/15 (filed 05/18) which states that he has had no behavior problems before or after the incident in question and that he should be reconsidered for placement somewhere based on that information. * Joselyn Parmar RD LD - 05/08/2022 4:13 PM EDT Associated Order(s): IP CONSULT TO DIETITIAN Nutrition Consult Patient Name: Mikayla Pappas Today's Date: 05/08/2022 Current Diagnosis: 1. Aggressive behavior of adult 2. 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 Anthropometric Measurements: Height: Height: 172.7 cm (5' 8 ) Weight (pounds): Weight: 97 kg (213 lb 13.5 oz) BMI: BMI (Calculated): 32.52 Weight history: Admission 213# Allergies: Allergies Allergen Reactions Phenytoin Low blood pressure, Rash and Unknown Current Medications: Scheduled Meds:amLODIPine, 10 mg, oral, Daily aspirin, 81 mg, oral, Daily collagenase, , Topical, Daily cyanocobalamin, 500 mcg, oral, Daily diclofenac, 1 application, Topical, 4x daily divalproex, 500 mg, oral, Daily DULoxetine, 90 mg, oral, Nightly ergocalciferol, 50,000 Units, oral, Weekly ferrous sulfate, 325 mg, oral, Daily with breakfast flurbiprofen, 1 drop, Both Eyes, BID gabapentin, 300 mg, oral, TID glimepiride, 2 mg, oral, Daily with breakfast insulin aspart, 0-14 Units, subcutaneous, TID with meals insulin aspart, 0-7 Units, subcutaneous, Nightly insulin detemir, 22 Units, subcutaneous, q AM lidocaine, 1 patch, topical (top), Daily melatonin, 6 mg, oral, Nightly oxybutynin, 5 mg, oral, BID oxygen, , inhalation, See admin instructions polyethylene glycol, 17 g, oral, Daily rosuvastatin, 40 mg, oral, Daily SITagliptin, 100 mg, oral, Daily tiZANidine, 2 mg, oral, BID Continuous Infusions: Labs: Results from last 7 days Lab Units 05/06/22 1747 GLUCOSE mg/dL 136* BUN mg/dL 43* CREATININE mg/dL 1.6* EGFR mL/min/1.73m*2 49.0 BUN / CREAT RATIO 26.9* ALBUMIN g/dL 4.0 CALCIUM mg/dL 8.9 SODIUM mmol/L 140 CHLORIDE mmol/L 105 CO2 mmol/L 24 ANION GAP 15.7 OSMOLALITY CALC mosm/kg 292 Comment(s): Admitted for occipital neuralgia. History of PTSD, seen by psych and neurology this admission. Pending ECF arrangements. Left heel ulcer- no skin breakdown, RD consulted today regarding wound. Assessment Consult Information Reason for Consult: Wound Consult received 05/08 Stool output: +05/06 Edema: RN TRAUMA LLE Diet: 60g CHO/meal PO intakes: 05/06 L-100, B-100 Intakes not recorded over weekend. B-100 Supplement: NA Supplement intakes: NA Nutrition Related Concerns: Concerns?: Nutrition Related Concerns: Biochemical Data: Chronic Skin Integrity: Wound assessment on 05/03: left heel wound and venous ulcer to foot. No skin breakdown indicated Problems, Etiology, Signs & Sx: Clinical Findings Biochemical: Altered nutrition related laboratory values (Specify) (NC-2.2) related to diabetes type 2 AEB hyperglycemia Malnutrition Criteria Eval Type: Deferred Malnutrition: Pt unavailable to screen writer today Goals and Recommendations: Initial Goals: Tolerate oral diet, Improve glucose control, Intake to meet JAMES needs and Maintain skin integrity Nutrition Recommendations: Cont. current therapies Interventions: 1. Nutrition consult received today d/t pt having wound on L heel. Reviewed chart today. Pt does not have any pressure injuries (wound to L heel is not d/t skin breakdown per wound nurse documentation). Meal intakes this admission have been adequate and meeting needs. Agree with therapeutic, diabetic diet (60g/CHO). Blood sugars are within acceptable limits this admission. No nutrition interventions indicated at this time. RD to sign off. Please reconsult if needed. Monitoring & Priority: RD to sign off. Nutrition Risk Level: low * CLAY Valle - 05/08/2022 8:58 AM EDT Associated Order(s): IP CONSULT TO SOCIAL WORK SOCIAL WORK CONSULT Visit Date: 05/08/2022 8:58 AM Patient Name: Mikayla Pappas Date of : 1960 Reason for Consult: Discharge Planning, general Consult Notes: SW received consult for discharge planning. Discharge planning process was initiatedin the ED on 05/02/22 and continues. Patient has been declined by multiple extended care facilities and efforts continue to find an accepting facility. No need for further consultation orders on this patient as discharge planning is already being addressed. Social Work will continue to follow until discharge. Please refer to discharge planning flowsheets for the full social work assessment and care planning notes for ongoing planning documentation. Thank you for this consult. CLAY Valle * Brenda Malloy MD - 05/08/2022 7:29 AM EDT Associated Order(s): IP CONSULT TO RHEUMATOLOGY I have had the pleasure of seeing Mr. Mikayla Pappas in follow-up at [facility] today. As you know we see him for the following medical diagnoses: 1. Aggressive behavior of adult 2. Behavior concern in adult Chief Complaint Patient presents with Aggressive Behavior History of Present Illness: Mr. Pappas was referred to rheumatology for evaluation of headaches and elevated sedimentation rate. According to patient, he has had left sided headache for around four weeks. Headaches started after laser surgery on the right eye. Headaches are associated with blurry vision, they usually happen daily, during the early afternoon and last till late afternoon. Headaches only happen once daily, no blurry vision outside of the headaches. Past Medical History: He has a past medical history of Depression (05/02/2021), Diabetes mellitus, Heel ulcer (CMS/HCC) (05/02/2021), Hypertension (05/02/2021), Hypotension, Orthostatic hypotension, Orthostatic hypotension (05/02/2021), PTSD (post-traumatic stress disorder) (05/02/2022), Right bundle branch block (05/02/2021), Stroke ([facility]), Stroke (CMS/HCC) (05/02/2021), Urine retention (05/02/2021),Jztuu-Qguezgiju-Bmawa syndrome, and WPW (Leffu-Vhgtsxtce-Modbl syndrome) (05/02/2021). No current facility-administered medications on file prior to encounter. Current Outpatient Medications on File Prior to Encounter Medication Sig Dispense Refill acetaminophen (Tylenol) 325 mg tablet Take 650 mg by mouth every 6 (six) hours if needed for fever. amLODIPine (Norvasc) 10 mg tablet Take 10 mg by mouth 1 (one) time each day. aspirin 81 mg EC tablet Take 81 mg by mouth 1 (one) time each day. atorvastatin (Lipitor) 80 mg tablet Take 80 mg by mouth every night. cyanocobalamin (Vitamin B-12) 500 mcg tablet Take 500 mcg by mouth 1 (one) time each day. diclofenac (Voltaren) 1 % topical gel Apply 1 application topically 4 (four) times a day. docusate sodium (Colace) 100 mg capsule Take 100 mg by mouth 2 (two) times a day. DULoxetine (Cymbalta) [address] capsule Take 90 mg by mouth every night. ergocalciferol (Vitamin D-2) 1,250 mcg (50,000 unit) capsule Take 50,000 Units by mouth 1 (one) time per week. Saturday ferrous sulfate 325 mg (65 mg iron) tablet Take 65 mg by mouth 1 (one) time each day. flurbiprofen (Ocufen) 0.03 % ophthalmic solution Administer 1 drop into both eyes 2 (two) times a day. gabapentin (Neurontin) 100 mg capsule Take 1 capsule (100 mg total) by mouth 1 (one) time each day.30 capsule 0 gabapentin (Neurontin) 300 mg capsule Take 1 capsule (300 mg total) by mouth every night. 30 capsule 0 glipiZIDE XL (Glucotrol XL) 10 mg 24 hr tablet Take 10 mg by mouth 1 (one) time each day. glycerin (Adult) suppository Insert 1 suppository into the rectum See administration instructions. Insert 1 suppository rectally as needed for constipation. Administer if no bowel movement within 12 hours after Milk of Magnesia was given. Assess bowel sounds. If no results from suppository go to step #3. guaiFENesin (Mucinex) 600 mg 12 hr tablet Take 600 mg by mouth 2 (two) times a day if needed for cough. Do not crush, chew, or split. hydrocortisone 1 % cream Apply 1 application topically 2 (two) times a day if needed. insulin glargine (Lantus,Semglee) 100 unit/mL injection Inject 22 Units under the skin every night. lidocaine (Lidoderm) 5 % patch Apply 1 patch topically 1 (one) time each day. Apply to lower back and remove per schedule loperamide (Imodium) 2 mg capsule Take 2 mg by mouth every 6 (six) hours if needed. Do not exceed 4tablets in 24 hours magnesium hydroxide (Milk of Magnesia) 400 mg/5 mL suspension Take 30 mL by mouth 1 (one) time eachday if needed for constipation. Give if no BM in 3 days. Do not give more than 3 consecutive doses.Assess bowel sounds, if no results from MOM in 12 hours go to step #2. melatonin 5 mg tablet Take 5 mg by mouth every night. NovoLOG U-100 Insulin aspart 100 unit/mL injection Inject under the skin See administration instructions. Inject per Sliding Scale before meals and bedtime. If: 0-159 = 0 units 160-199 = 2 units 200-249 = 4 units 250-299 = 6 units 300- 349 = 8 units 350-399 = 10 units If over 400 = 12 units and callPA ondansetron ODT (Zofran-ODT) 4 mg disintegrating tablet Take 4 mg by mouth every 6 (six) hours if needed for nausea or vomiting. oxybutynin XL (Ditropan-XL) 10 mg 24 hr tablet Take 10 mg by mouth 1 (one) time each day. oxyCODONE-acetaminophen (Percocet) 5-325 mg tablet Take 1 tablet by mouth every 6 (six) hours if needed. peg 137-yxvartkfyjrg-ruleztoc 1-0.2-0.2 % drops Administer 1 drop into both eyes if needed. polyethylene glycol (Glycolax) 17 gram/dose powder Take 17 g by mouth 1 (one) time each day. SITagliptin (Januvia) 100 mg tablet Take 100 mg by mouth 1 (one) time each day. sodium phosphates (Fleet Enema) 19-7 gram/118 mL enema enema Insert 1 enema into the rectum See administration instructions. Insert 1 applicator rectally as needed for constipation. Administer if no BM in 12 hours following the glycerin suppository. Assess bowel sounds. If no results from enema go to Step #4. tiZANidine (Zanaflex) 2 mg tablet Take 2 mg by mouth 2 (two) times a day. [DISCONTINUED] ascorbic acid (Vitamin C) 500 mg tablet Take 1,000 mg by mouth 1 (one) time each day. [DISCONTINUED] dkoyscn-wdlboweukrjba-emnfqttr (Excedrin Migraine) 250-250-65 mg tablet Take 1 tablet by mouth every 6 (six) hours if needed. [DISCONTINUED] cholecalciferol (Vitamin D-3) 25 mcg (1,000 unit) tablet Take 2,000 Units by mouth 1(one) time each day. [DISCONTINUED] citalopram (CeleXA) 20 mg tablet [DISCONTINUED] doxazosin (Cardura) 4 mg tablet Take 4 mg by mouth. [DISCONTINUED] doxycycline (Vibra-Tabs) 100 mg tablet [DISCONTINUED] DULoxetine (Cymbalta) [address] capsule Take 60 mg by mouth 1 (one) time each day. [DISCONTINUED] HYDROcodone-acetaminophen ([place]) 5-325 mg tablet Take 1 tablet by mouth every 6 (six) hours if needed for moderate pain. 20 tablet 0 [DISCONTINUED] hydrOXYzine HCL (Atarax) 25 mg tablet 25 mg. [DISCONTINUED] insulin glargine (Basaglar KwikPen U-100 Insulin) 100 unit/mL (3 mL) injection Inject 22 Units under the skin every night. [DISCONTINUED] insulin lispro (HumaLOG) 100 unit/mL injection For blood sugar 141-180 give 2 units subcutaneoulsy, for 181-220 give 4 units, for 221-260 give 6 units, and for 261-300 give 8 units. . [DISCONTINUED] Janumet 50-1,000 mg tablet Take 1 tablet by mouth 1 (one) time each day. [DISCONTINUED] linezolid (Zyvox) 600 mg tablet [DISCONTINUED] losartan (Cozaar) 25 mg tablet Take 25 mg by mouth 1 (one) time each day. [DISCONTINUED] midodrine (Proamatine) 5 mg tablet Take 10 mg by mouth 2 (two) times a day. For hypotension. Hold if systolic BP is above 150. [DISCONTINUED] nitrofurantoin (Macrodantin) 50 mg capsule Take 50 mg by mouth every night. [DISCONTINUED] predniSONE (Deltasone) 20 mg tablet [DISCONTINUED] SantyL 250 unit/gram ointment [DISCONTINUED] sodium phosphate,mono-dibasic (ENEMA RECT) Insert 1 enema into the rectum if needed (Constipation). Administer if no BM in 12 hours following glycerin suppository. Assess bowel sounds,if no results from enema go to step #4. [DISCONTINUED] sulfamethoxazole-trimethoprim (Bactrim DS) 800-160 mg tablet Past Surgical History: Procedure Laterality Date CARDIAC CATHETERIZATION Bilateral 05/05/2021 Performed by Paul Gaona DO at [facility] Cardiac Cath Labs FOOT SURGERY Left INCISION AND DRAINAGE OF WOUND Right 05/03/2021 Performed by Agueda Alonso DPM at [facility] OR LEG AMPUTATION Right 05/12/2021 Performed by Paul Gaona DO at [facility] OR RADIOFREQUENCY ABLATION Family History Problem Relation Name Age of Onset Diabetes Father Liver cancer Father Social History Tobacco Use Smoking status: Never Smoker Smokeless tobacco: Never Used Vaping Use Vaping Use: Never used Substance Use Topics Alcohol use: Not Currently Drug use: Not Currently Review of Systems: As stated in HPI other powell complete review of system is negative Review of Systems Constitutional: Negative. Negative for chills, fatigue and unexpected weight change. HENT: Negative. Negative for mouth sores, rhinorrhea, sinus pressure, sinus pain and trouble swallowing. Headaches Eyes: Negative. Respiratory: Negative for cough and shortness of breath. Cardiovascular: Negative for chest pain and palpitations. Gastrointestinal: Negative for blood in stool, constipation, diarrhea and nausea. Genitourinary: Negative for hematuria and urgency. Musculoskeletal: Negative. Negative for arthralgias, back pain, gait problem, joint swelling, myalgias, neck pain and neck stiffness. Skin: Negative. Negative for rash. Neurological: Negative. Negative for dizziness and weakness. Hematological: Negative for adenopathy. Psychiatric/Behavioral: Negative. All other systems reviewed and are negative. Social History: No Change except as noted Physical Examination: Blood pressure 127/73, pulse 65, temperature 36.4 C (97.5 F), temperature source Axillary, resp. rate 18, height 1.727 m (5' 8 ), weight 97 kg (213 lb 13.5 oz), SpO2 95 %. Physical Exam Vitals and nursing note reviewed. Constitutional: Appearance: Normal appearance. He is normal weight. HENT: Head: Normocephalic and atraumatic. Right Ear: External ear normal. Left Ear: External ear normal. Nose: Nose normal. Mouth/Throat: Mouth: Mucous membranes are moist. Pharynx: Oropharynx is clear. Eyes: Conjunctiva/sclera: Conjunctivae normal. Musculoskeletal: General: Normal range of motion. Cervical back: Normal range of motion and neck supple. Skin: General: Skin is warm. Neurological: Mental Status: He is alert. Psychiatric: Mood and Affect: Mood normal. Patient Global: Provider Global: ESR: CRP: PABON-28 (ESR): PABON-28 (CRP): CDAI: Joint Exam 05/01/2022 No joint exam has been documented for this visit There is currently no information documented on the homunculus. Go to the Rheumatology activity andcomplete the homunculus joint exam. Diagnostic Data: Admission on 05/01/2022 Component Date Value Ref Range Status Glucose 05/02/2022 127 (A) 74 - 106 mg/dL Final NOTE IF THIS IS A FASTING SPECIMEN THE FOLLOWING RANGES APPLY: NORMAL 70 TO 99 mg/dL PREDIABETIC 100 TO 125 mg/dL DIABETIC >= 126 mg/dL BUN 05/02/2022 40 (A) 9 - 23 mg/dL Final Creatinine 05/02/2022 1.3 0.7 - 1.3 mg/dL Final eGFR 05/02/2022 62.9 mL/min/1.73m*2 Final CALCULATION BASED ON THE CHRONIC KIDNEY DISEASE EPIDEMIOLOGY COLLABORATION (CKD- EPI) EQUATION REFITWITHOUT ADJUSTMENT FOR RACE. GFR LESS THAN 60 mL/min/1.73m2: SUGGESTIVE OF CHRONIC KIDNEY DISEASE. GFR LESS THAN 15 mL/min/1.73m2: SUGGESTIVE OF END STAGE RENAL DISEASE. BUN/Creatinine Ratio 05/02/2022 30.8 (A) 6.0 - 20.0 Final Calcium 05/02/2022 9.1 8.7 - 10.4 mg/dL Final Sodium 05/02/2022 140 132 - 146 mmol/L Final Potassium 05/02/2022 5.0 3.6 - 5.1 mmol/L Final Chloride 05/02/2022 106 99 - 109 mmol/L Final CO2 05/02/2022 30 20 - 31 mmol/L Final Anion Gap 05/02/2022 9.0 8.0 - 22.0 Final Osmolality Calc 05/02/2022 291 275 - 305 mosm/kg Final Joel SARS Antigen 05/02/2022 Presumptive Negative Presumptive Negative Final Influenza A 05/02/2022 Negative Negative Final Influenza B 05/02/2022 Negative Negative Final Auto WBC 05/02/2022 9.6 4.0 - 11.0 10*3/uL Final RBC 05/02/2022 3.00 (A) 4.50 - 5.90 10*6/uL Final Hemoglobin 05/02/2022 9.0 (A) 13.5 - 17.5 g/dL Final Hematocrit 05/02/2022 26.1 (A) 41.0 - 53.0 % Final MCV 05/02/2022 87.1 80.0 - 100.0 fL Final MCH 05/02/2022 30.1 26.0 - 34.0 pg Final MCHC 05/02/2022 34.6 31.0 - 37.0 g/dL Final RDW 05/02/2022 14.7 (A) 11.5 - 14.5 % Final Platelets 05/02/2022 254 140 - 440 10*3/uL Final MPV 05/02/2022 6.2 (A) 7.4 - 10.4 fL Final Neutrophils Relative 05/02/2022 67.0 36.0 - 71.0 % Final Neutrophils Absolute 05/02/2022 6.5 1.6 - 7.5 10*3/uL Final Lymphocytes Relative 05/02/2022 19.7 (A) 24.0 - 44.0 % Final Lymphocytes Absolute 05/02/2022 1.9 1.0 - 3.5 10*3/uL Final Monocytes Relative 05/02/2022 10.4 (A) 1.0 - 7.0 % Final Monocytes Absolute 05/02/2022 1.0 0.1 - 1.0 10*3/uL Final Eosinophils Relative 05/02/2022 2.7 1.0 - 4.0 % Final Eosinophils Absolute 05/02/2022 0.3 0.1 - 0.3 10*3/uL Final Basophils Relative 05/02/2022 0.2 0.0 - 1.0 % Final Basophils Absolute 05/02/2022 0.0 0.0 - 0.1 10*3/uL Final Creatinine, Ur 05/02/2022 54.2 mg/dL Final Amphetamine Screen, Ur 05/02/2022 Negative Cutoff 1000 ng/mL Final Barbiturate Screen, Ur 05/02/2022 Negative Cutoff 200 ng/mL Final Benzodiazepine Ur Qual 05/02/2022 Negative Cutoff 200 ng/mL Final Cannabinoid Screen, Urine 05/02/2022 Negative Cutoff 50ng/mL Final Cocaine Screen, Urine 05/02/2022 Negative Cutoff 300 ng/mL Final Methadone Screen, Urine 05/02/2022 Negative Cutoff 300 ng/mL Final Opiate Scrn, Ur 05/02/2022 Negative Cutoff 300 ng/mL Final Oxycodone Screen, Ur 05/02/2022 Negative Cutoff 300 ng/mL Final PCP Scrn, Ur 05/02/2022 Negative Cutoff 25 ng/mL Final TCA, Urine 05/02/2022 Negative Cutoff 300 ng/mL Final Fentanyl Screen, Ur 05/02/2022 Negative Cutoff 1 ng/mL Final Color, Urine 05/02/2022 Yellow Yellow Final Clarity, Urine 05/02/2022 Clear Clear Final Specific [place], Urine 05/02/2022 1.016 Final pH, Urine 05/02/2022 7.5 4.5 - 8.0 pH Final Protein, Urine 05/02/2022 >=300 (A) Negative mg/dL Final Glucose, Urine 05/02/2022 Negative Negative mg/dL Final Ketones, Urine 05/02/2022 Negative Negative mg/dL Final Bilirubin, Urine 05/02/2022 Negative Negative Final Blood, Urine 05/02/2022 Moderate (A) Negative Final Nitrite, Urine 05/02/2022 Positive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 Take 1 tablet by mouth daily . flurbiprofen 0.03 % ophthalmic solution Commonly known as: OCUFEN * gabapentin 300 MG capsule Take 300 mg by mouth at bedtime . Commonly known as: NEURONTIN * gabapentin 100 MG capsule Take 100 mg by mouth daily . Commonly known as: NEURONTIN glipiZIDE 10 MG 24 hr tablet Take 10 mg by mouth daily . Commonly known as: GLUCOTROL XL guaiFENesin 600 mg 12 hr tablet Take 600 mg by mouth 2 (two) times a day as needed for congestion . Commonly known as: MUCINEX hydrocortisone 1 % cream Apply topically 2 (two) times a day . lancets Misc Check your sugars up to 4 times a day . Lantus Solostar U-100 Insulin 100 unit/mL (3 mL) Inpn Generic drug: insulin glargine Inject 22 Units under the skin nightly . lidocaine 5 % patch Place 1 patch on the skin every 12 (twelve) hours Remove & Discard patch within 12 hours or as directed by MD- to back . Commonly known as: LIDODERM loperamide 2 mg tablet Take 2 mg by mouth 4 (four) times a day as needed for diarrhea Max 4 tablets in 24 hours . Commonly known as: IMODIUM A-D magnesium hydroxide 400 mg/5 mL Susp Take 30 mL by mouth daily as needed . Commonly known as: MOM melatonin 5 mg Tab Take 5 mg by mouth at bedtime . NovoLOG U-100 Insulin aspart 100 unit/mL injection Generic drug: insulin aspart U-100 ondansetron 4 MG disintegrating tablet Dissolve 4 mg on top of tongue every 6 (six) hours as needed for nausea . Commonly known as: ZOFRAN-ODT oxybutynin 10 MG 24 hr tablet Take 10 mg by mouth daily . Commonly known as: DITROPAN-XL oxyCODONE-acetaminophen 5-325 mg per tablet Take 1 tablet by mouth every 6 (six) hours as needed for pain . Commonly known as: PERCOCET pen needle, diabetic 32 gauge x 5/32 Ndle Change pen needles daily as needed up to 4 times. . polyethylene glycol 17 gram powder Take 17 g by mouth daily . Commonly known as: MIRALAX sitagliptin 50 MG tablet Take 100 mg by mouth daily . Commonly known as: JANUVIA tiZANidine 2 MG tablet Take 2 mg by mouth 2 (two) times a day . Commonly known as: ZANAFLEX * This list has 4 medication(s) that are the same as other medications prescribed for you. Read thedirections carefully, and ask your doctor or other care provider to review them with you. Allergies Allergen Reactions Dilantin Infatabs [Phenytoin] Rash Social History Socioeconomic History Marital status: Tobacco Use Smoking status: Never Smokeless tobacco: Never Vaping Use Vaping Use: Never used Substance and Sexual Activity Alcohol use: No Drug use: No Family History Problem Relation Age of Onset Diabetes Father Surgical complications Neg Hx Anesthesia problems Neg Hx Heart disease Neg Hx Clotting disorder Neg Hx Deep vein thrombosis Neg Hx Pulmonary embolism Neg Hx No history of bleeding or clotting disorders Vital Signs BP 136/78 (BP Location: Right arm, Patient Position: Sitting, BP Cuff Size: X- large Adult) Pulse 79 Temp 98.6 F (37 C) (Infrared) SpO2 99% Physical Examination General: Appropriate, no apparent distress. Psychiatric: affect appropriate Neurologic: face symmetric, no facial droop, no dysarthria. Speech clear, cognition intact. Head/Eyes/Ears/Nose/Throat: Atraumatic, vision and hearing intact. Neck: supple Lungs: clear to auscultation bilaterally, breathing comfortably. Cardiac: Regular rate. Abdomen: soft, nontender Extremities (musculoskeletal and neurologic): warm and well perfused - bilateral upper extremity motorsensory intact; symmetric strength. - bilateral lower extremity motorsensory intact; symmetric strength. Vascular exam: - Right femoral artery: not examined. - Left femoral artery: not examined. -Easily palpable DP pulse on the left foot Does have a wound with granulation tissue on the top of his foot from a strep by his report. Overall his wounds have healed nicely Non-invasive vascular studies: Objective Impression: 61-year-old male with healing left foot wound and mild PAD Plan: With his wounds essentially healed and a palpable pulse there is no reason for him to have continued follow-up at this time - Can follow-up with me as needed Fatmata Cosby MD [facility] [address] [place] [address], [address] [place] [address] documented in this [id number] History of Present illness Narrative* Lamin Stringer MD - 04/25/2022 7:30 PM EDT SSS interpretation completed documented in this encounterP[facility] [id number] Note* Addendum Note - Ramana Jaramillo DPM - 04/09/2022 6:42 PM EDTAddended by: RAMANA JARAMILLO on: 04/09/2022 06:42 PM Modules accepted: Level of Service [id number] Miscellaneous Notes* Addendum Note - Ramana Jaramillo DPM - 04/09/2022 6:42 PM EDTAddended by: RAMANA JARMAILLO on: 04/09/2022 06:42 PM Modules accepted: Level of Service documented in this [id number] Instructions* Patient Instructions* Rafy Cardenas RN - 04/09/2022 9:24 AM EDT Images from the original note were not included. Discontinue wound vac The following Patient Instructions and Wound Care Orders are current as of this date. All previous orders/treatments should be discontinued. Wound Care Orders: Wound location: left heel Clean with saline May NOT shower Apply the following primary dressing (OR EQUIVALENT): Anastasia moistened with saline Cover with (secondary dressing) dry gauze and secure with roll gauze Change every other day May change outer dressing if it becomes soiled or saturated same dressing in clinic today Per Verbal Order Read Back Apply Spencer Wrap(s) to Left lower leg from toes to knee making sure to cover the heel at 50% stretch and overlap (unless otherwise instructed). Apply in the morning and re-wrap as needed during the dayif wrap becomes loose. Remove at bedtime, unless otherwise directed. May hand wash as needed and line dry. High Blood Pressure: If your blood pressure taken today is above 150/95, please contact your primary care physician to get further instructions. If you experience the following emergent symptoms; chest pain, shortness ofbreath, headache, dizziness, vision changes, unusual and/or excessive sweating or nausea vomiting -call 911 or go to the nearest emergency room. Bleeding: If your wound was debrided and continues to bleed after your appointment, apply direct pressure to the wound with a clean cloth or dressing for 10-20 minutes. If the bleeding does not stop, call [facility] [phone] or go to the Emergency Room. Signs/Symptoms of Infection: If you have any fever, chills, nausea, vomiting or increased odor, drainage, pain or redness to thewound, call [facility] at [phone]. If after hours, contact your family physician or go to the Emergency Room. Tips You can do at Home to Help Heal Your Wound Tobacco Use: No smoking or tobacco products because they can slow or even stop wound healing. Diabetic Management: If you are diabetic, check your blood sugar every morning before eating. Keep your fasting blood sugar below 120. Keep regular appointments with your primary physician to monitor your diabetes. Follow your diabetic diet carefully. Skin Care: Use apply moisturizing lotion to dry, intact skin, avoid getting between the toes. Apply skin sealant or barrier to protect the skin from too much moisture. Inspect skin (including feet) daily for redness, blisters, rash, cracks, or open areas. Incontinence Skin Care Quickly cleanse and gently pat dry after every incontinence episode or loose bowel movement to keeparea as clean and dry as possible. Use a barrier cream to protect skin as directed. Edema Control Instructions: Elevate legs above the level of your heart whenever you are sitting. Avoid standing for long periods and do not sit with your legs dangling. Compression Stockings: Apply compression stocking(s) every morning as soon as you get up. Remove atbedtime unless instructed to wear day and night. Hand wash and line dry to prevent loss of elasticity. Replace every 3-4 months to ensure proper fit. Pressure Relief Instructions: Keep weight and pressure off your wound(s) and bony areas of the body (for example, heels, tail bone, hip, elbows, back of head). Reposition as instructed. Shift position in chair every 15 minutes.Turn every 2 hours while lying down. Wear heel guards to keep pressure off heels while in bed or in a chair. Remove while transferring or walking. Specialty Bed: Alternating Air Mattress Wheelchair cushion: Roho. Use this wherever you are sitting. Diet: Increase the lean protein in your diet. Examples of foods high in protein are lean cuts of meat, fish, dairy foods, peanut butter and eggs. Use protein supplements as directed. Limit your salt/sodium as instructed. Choose fresh fruits, vegetables and lean cuts of meat. Do notadd salt to food during or after cooking. Season food with herbs and spices instead of salt. Avoid salty snacks, fast foods, deli meats and pre-packaged foods. If instructed, limit your fluids to no more than 2 quarts, (64 ounces), of a day. This includes water, juice, coffee, tea, pop, soup, etc. If you are diabetic, check your blood sugar every morning before eating. Keep your fasting blood sugar below 120. Keep regular appointments with your primary physician to monitor your diabetes. Follow your diabetic diet carefully. Protein for Wound Healing You need at least 80-100 grams of protein per day for the body to heal a wound. Be creative and increase protein levels by: Eating the protein items at meal time first. Eat small meals and snacks throughout the day Adding eggs to casseroles, meat loaf, mashed potatoes, macaroni & cheese, salads. Adding cheese to sandwiches, casseroles, potatoes, vegetables, and omelets. Adding peanut butter to toast, bagels, waffles, crackers, bananas, apples, and celery. Adding protein powder to - drinks, pudding, potatoes, soups, ground meats, cooked cereal, milkshakes, yogurt, and pancake batter. Item Portion Size Grams of Protein Most Meats 1 oz 7 Beef Hamburger Vivian 4 oz 28 Steak 6 oz 42 Chicken Breast 3.5 oz 30 Thigh Average 10 Drumstick Average 11 Wing Average 6 Most Other 4 oz cooked 35 Fish Tuna 6 oz can 40 Fish Fillets or Steaks 1oz cooked 6 Pork Chop Average 22 Loin or Tenderloin 4 oz 29 Ham 3 oz 19 Ground 3 oz cooked 22 Mackey 1 slice 3 Taiwanese-style Mackey (Back Mackey) 1 slice 5-6 Eggs and Dairy Egg Large 6 Milk 1 cup 8 Cottage Cheese cup 15 Yogurt 1 cup 8-12 Kyrgyz Yogurt 6 oz 18 Soft Cheeses (Mozzarella, Brie) 1 oz 6 Medium Cheeses(Cheddar,British) 1 oz 7-8 Hard Cheeses (Parmesan) 1 oz 10 Beans / Soy Tofu cup 10 Soy Milk 1 cup 6-10 Soy Beans cup cooked 14 Edamame cup 8-12 Most Beans (black, huang, lentils) cup cooked 7-10 Split Peas cup cooked 8 Nuts and Seeds Peanut Butter 2 Tablespoons 8 Peanuts cup 9 Almonds cup 8 Cashews cup 5 Pecans cup 2.5 Bristol Seeds cup 6 Pumpkin Seeds cup 19 Flax Seeds cup 8 Some Whole Grain Breads 1 slice 4-5 Other Protein Powder 1 scoop 20 Wound 01/29/22 1 Pressure Injury Heel Left (Active) Wound Image 04/09/22908 Wound Length (cm) 1.6 cm 04/09/22 09 Wound Width (cm) 1.8 cm 04/09/22 09 Wound Depth (cm) 0.7 cm 04/09/22 09 Wound Surface Area (cm^2) 2.88 cm^2 04/09/22 09 Wound Volume (cm^3) 2.016 cm^3 04/09/22 09 Area % Change -34.5 04/09/22 09 Wound Healing % 88 04/09/22 0909 Tunneling Maximum Distance (cm) 0 cm 04/09/22 0909 Tunneling Position (o'clock) 0 04/09/22 0909 Tunneling Maximum Distance (cm) 0 cm 04/09/22 0909 Tunneling Position (o'clock) 0 04/09/22 0909 Undermining Maximum Distance (cm) 1 0 cm 04/09/22 0909 Undermining Starting Position (o'clock) 1 0 04/09/22 0909 Undermining Ending Position (o'clock) 1 0 04/09/22 0909 Undermining Maximum Distance (cm) 2 0 cm 04/09/22 0909 Undermining Starting Position (o'clock) 2 0 04/09/22 0909 Undermining Ending Position (o'clock) 2 0 04/09/22 0909 Wound Progress Improving 04/09/22 0909 Pressure Injury Stage 4 04/09/22 0909 Drainage Amount Moderate 04/09/22 0909 Drainage Description Serosanguineous 04/09/22 09 Odor None 04/09/22 0909 Wound Margin Well defined 04/09/22 0909 Adherent Yellow Slough % None 04/09/22 0909 Moist Yellow Slough % None 04/09/22 0909 Dry Black Eschar % None 04/09/22 0909 Moist Black Eschar % None 04/09/22 0909 Epithelialization % 1-25% 04/09/22 09 Granulation % 76-100% 04/09/22 09 Exposed Structure None 04/09/22 0909 Wound Bed Characteristics Granulation tissue 04/09/22 09 Carli-wound Assessment Temperature WNL;Moist;White 04/09/22 0909 Treatments Topical anesthetic for procedural pain control per order;Assist with debridement 04/09/22 0909 Hemostasis Manual pressure 04/09/22 0909 Cleansed Sterile saline 04/09/22 0909 Primary Dressing Collagen with silver 04/09/22 09 Secondary Dressing Gauze pad;Gauze roll 04/09/22 0909 Compression Dressing Spencer wrap 04/09/22 0909 Wound 02/12/22 2 Foot Dorsal (Active) Wound Image 04/09/22 0909 Wound Length (cm) 0 cm 04/09/22 0909 Wound Width (cm) 0 cm 04/09/22 0909 Wound Depth (cm) 0 cm 04/09/22 0909 Wound Surface Area (cm^2) 0 cm^2 04/09/22 09 Wound Volume (cm^3) 0 cm^3 04/09/22 0909 Area % Change -100 04/09/22908 Wound Healing % 100 04/09/22 09 Tunneling Maximum Distance (cm) 0 cm 04/09/22 0909 Tunneling Position (o'clock) 0 04/09/22 0909 Tunneling Maximum Distance (cm) 0 cm 04/09/22 0909 Tunneling Position (o'clock) 0 04/09/22 0909 Undermining Maximum Distance (cm) 1 0 cm 04/09/22 0909 Undermining Starting Position (o'clock) 1 0 04/09/22 0909 Undermining Ending Position (o'clock) 1 0 04/09/22 0909 Undermining Maximum Distance (cm) 2 0 cm 04/09/22 09 Undermining Starting Position (o'clock) 2 0 04/09/22 0909 Undermining Ending Position (o'clock) 2 0 04/09/22 09 Wound Progress Improving 04/09/22 09 Non-staged Wound Description Full thickness 04/09/22 0909 Drainage Amount None 04/09/22 0909 Drainage Description Serous;Yellow 03/19/22921 Odor None 04/09/22 0909 Wound Margin Undefined 04/09/22 09 Adherent Yellow Slough % None 04/09/22 0909 Moist Yellow Slough % None 04/09/22 0909 Dry Black Eschar % None 04/09/22 0909 Moist Black Eschar % None 04/09/22 0909 Epithelialization % 76-100% 04/09/22 09 Granulation % None 04/09/22 0909 Exposed Structure None 04/09/22 0909 Wound Bed Characteristics Epitheliaization 04/09/22 09 Carli-wound Assessment Temperature WNL;Clean;Intact 04/09/22 09 Treatments Not Applicable 04/09/22 09 Hemostasis Not applicable 04/09/22908 Cleansed Not Applicable 04/09/22 0909 Primary Dressing Gauze pad 04/09/22908 Secondary Dressing Not applicable 04/09/22 09 Compression Dressing Spencer wrap 04/09/22908 documented in this [id number] Instructions* Patient Instructions* Rafy Cardenas RN - 04/09/2022 9:24 AM EDT Images from the original note were not included. Discontinue wound vac The following Patient Instructions and Wound Care Orders are current as of this date. All previous orders/treatments should be discontinued. Wound Care Orders: Wound location: left heel Clean with saline May NOT shower Apply the following primary dressing (OR EQUIVALENT): Anastasia moistened with saline Cover with (secondary dressing) dry gauze and secure with roll gauze Change every other day May change outer dressing if it becomes soiled or saturated same dressing in clinic today Per Verbal Order Read Back Apply Spencer Wrap(s) to Left lower leg from toes to knee making sure to cover the heel at 50% stretch and overlap (unless otherwise instructed). Apply in the morning and re-wrap as needed during the dayif wrap becomes loose. Remove at bedtime, unless otherwise directed. May hand wash as needed and line dry. High Blood Pressure: If your blood pressure taken today is above 150/95, please contact your primary care physician to get further instructions. If you experience the following emergent symptoms; chest pain, shortness ofbreath, headache, dizziness, vision changes, unusual and/or excessive sweating or nausea vomiting -call 911 or go to the nearest emergency room. Bleeding: If your wound was debrided and continues to bleed after your appointment, apply direct pressure to the wound with a clean cloth or dressing for 10-20 minutes. If the bleeding does not stop, call [facility] [phone] or go to the Emergency Room. Signs/Symptoms of Infection: If you have any fever, chills, nausea, vomiting or increased odor, drainage, pain or redness to thewound, call [facility] at [phone]. If after hours, contact your family physician or go to the Emergency Room. Tips You can do at Home to Help Heal Your Wound Tobacco Use: No smoking or tobacco products because they can slow or even stop wound healing. Diabetic Management: If you are diabetic, check your blood sugar every morning before eating. Keep your fasting blood sugar below 120. Keep regular appointments with your primary physician to monitor your diabetes. Follow your diabetic diet carefully. Skin Care: Use apply moisturizing lotion to dry, intact skin, avoid getting between the toes. Apply skin sealant or barrier to protect the skin from too much moisture. Inspect skin (including feet) daily for redness, blisters, rash, cracks, or open areas. Incontinence Skin Care Quickly cleanse and gently pat dry after every incontinence episode or loose bowel movement to keeparea as clean and dry as possible. Use a barrier cream to protect skin as directed. Edema Control Instructions: Elevate legs above the level of your heart whenever you are sitting. Avoid standing for long periods and do not sit with your legs dangling. Compression Stockings: Apply compression stocking(s) every morning as soon as you get up. Remove atbedtime unless instructed to wear day and night. Hand wash and line dry to prevent loss of elasticity. Replace every 3-4 months to ensure proper fit. Pressure Relief Instructions: Keep weight and pressure off your wound(s) and bony areas of the body (for example, heels, tail bone, hip, elbows, back of head). Reposition as instructed. Shift position in chair every 15 minutes.Turn every 2 hours while lying down. Wear heel guards to keep pressure off heels while in bed or in a chair. Remove while transferring or walking. Specialty Bed: Alternating Air Mattress Wheelchair cushion: Roho. Use this wherever you are sitting. Diet: Increase the lean protein in your diet. Examples of foods high in protein are lean cuts of meat, fish, dairy foods, peanut butter and eggs. Use protein supplements as directed. Limit your salt/sodium as instructed. Choose fresh fruits, vegetables and lean cuts of meat. Do notadd salt to food during or after cooking. Season food with herbs and spices instead of salt. Avoid salty snacks, fast foods, deli meats and pre-packaged foods. If instructed, limit your fluids to no more than 2 quarts, (64 ounces), of a day. This includes water, juice, coffee, tea, pop, soup, etc. If you are diabetic, check your blood sugar every morning before eating. Keep your fasting blood sugar below 120. Keep regular appointments with your primary physician to monitor your diabetes. Follow your diabetic diet carefully. Protein for Wound Healing You need at least 80-100 grams of protein per day for the body to heal a wound. Be creative and increase protein levels by: Eating the protein items at meal time first. Eat small meals and snacks throughout the day Adding eggs to casseroles, meat loaf, mashed potatoes, macaroni & cheese, salads. Adding cheese to sandwiches, casseroles, potatoes, vegetables, and omelets. Adding peanut butter to toast, bagels, waffles, crackers, bananas, apples, and celery. Adding protein powder to - drinks, pudding, potatoes, soups, ground meats, cooked cereal, milkshakes, yogurt, and pancake batter. Item Portion Size Grams of Protein Most Meats 1 oz 7 Beef Hamburger Vivian 4 oz 28 Steak 6 oz 42 Chicken Breast 3.5 oz 30 Thigh Average 10 Drumstick Average 11 Wing Average 6 Most Other 4 oz cooked 35 Fish Tuna 6 oz can 40 Fish Fillets or Steaks 1oz cooked 6 Pork Chop Average 22 Loin or Tenderloin 4 oz 29 Ham 3 oz 19 Ground 3 oz cooked 22 Mackey 1 slice 3 Taiwanese-style Mackey (Back Mackey) 1 slice 5-6 Eggs and Dairy Egg Large 6 Milk 1 cup 8 Cottage Cheese cup 15 Yogurt 1 cup 8-12 Kyrgyz Yogurt 6 oz 18 Soft Cheeses (Mozzarella, Brie) 1 oz 6 Medium Cheeses(Cheddar,British) 1 oz 7-8 Hard Cheeses (Parmesan) 1 oz 10 Beans / Soy Tofu cup 10 Soy Milk 1 cup 6-10 Soy Beans cup cooked 14 Edamame cup 8-12 Most Beans (black, huang, lentils) cup cooked 7-10 Split Peas cup cooked 8 Nuts and Seeds Peanut Butter 2 Tablespoons 8 Peanuts cup 9 Almonds cup 8 Cashews cup 5 Pecans cup 2.5 Bristol Seeds cup 6 Pumpkin Seeds cup 19 Flax Seeds cup 8 Some Whole Grain Breads 1 slice 4-5 Other Protein Powder 1 scoop 20 Wound 01/29/22 1 Pressure Injury Heel Left (Active) Wound Image 04/09/22 09 Wound Length (cm) 1.6 cm 04/09/22 0909 Wound Width (cm) 1.8 cm 04/09/22 09 Wound Depth (cm) 0.7 cm 04/09/22 09 Wound Surface Area (cm^2) 2.88 cm^2 04/09/22 09 Wound Volume (cm^3) 2.016 cm^3 04/09/22 09 Area % Change -34.5 04/09/22 09 Wound Healing % 88 04/09/22 09 Tunneling Maximum Distance (cm) 0 cm 04/09/22 0909 Tunneling Position (o'clock) 0 04/09/22 0909 Tunneling Maximum Distance (cm) 0 cm 04/09/22 0909 Tunneling Position (o'clock) 0 04/09/22 0909 Undermining Maximum Distance (cm) 1 0 cm 04/09/22 0909 Undermining Starting Position (o'clock) 1 0 04/09/22 09 Undermining Ending Position (o'clock) 1 0 04/09/22 09 Undermining Maximum Distance (cm) 2 0 cm 04/09/22 0909 Undermining Starting Position (o'clock) 2 0 04/09/22 09 Undermining Ending Position (o'clock) 2 0 04/09/22 0909 Wound Progress Improving 04/09/22 09 Pressure Injury Stage 4 04/09/22 0909 Drainage Amount Moderate 04/09/22 09 Drainage Description Serosanguineous 04/09/22 0909 Odor None 04/09/22 09 Wound Margin Well defined 04/09/22 09 Adherent Yellow Slough % None 04/09/22 0909 Moist Yellow Slough % None 04/09/22 0909 Dry Black Eschar % None 04/09/22 0909 Moist Black Eschar % None 04/09/22 09 Epithelialization % 1-25% 04/09/22 09 Granulation % 76-100% 04/09/22 09 Exposed Structure None 04/09/22 0909 Wound Bed Characteristics Granulation tissue 04/09/22 09 Carli-wound Assessment Temperature WNL;Moist;White 04/09/22 09 Treatments Topical anesthetic for procedural pain control per order;Assist with debridement 04/09/22908 Hemostasis Manual pressure 04/09/22908 Cleansed Sterile saline 04/09/22 09 Primary Dressing Collagen with silver 04/09/22908 Secondary Dressing Gauze pad;Gauze roll 04/09/22 09 Compression Dressing Spencer wrap 04/09/22 0909 Wound 02/12/22 2 Foot Dorsal (Active) Wound Image 04/09/22908 Wound Length (cm) 0 cm 04/09/22908 Wound Width (cm) 0 cm 04/09/22908 Wound Depth (cm) 0 cm 04/09/22908 Wound Surface Area (cm^2) 0 cm^2 04/09/22908 Wound Volume (cm^3) 0 cm^3 04/09/22908 Area % Change -100 04/09/22908 Wound Healing % 100 04/09/22908 Tunneling Maximum Distance (cm) 0 cm 04/09/22908 Tunneling Position (o'clock) 0 04/09/22908 Tunneling Maximum Distance (cm) 0 cm 04/09/22908 Tunneling Position (o'clock) 0 04/09/22908 Undermining Maximum Distance (cm) 1 0 cm 04/09/22908 Undermining Starting Position (o'clock) 1 0 04/09/22908 Undermining Ending Position (o'clock) 1 0 04/09/22908 Undermining Maximum Distance (cm) 2 0 cm 04/09/22908 Undermining Starting Position (o'clock) 2 0 04/09/22908 Undermining Ending Position (o'clock) 2 0 04/09/22908 Wound Progress Improving 04/09/22908 Non-staged Wound Description Full thickness 04/09/22908 Drainage Amount None 04/09/22908 Drainage Description Serous;Yellow 03/19/22921 Odor None 04/09/22908 Wound Margin Undefined 04/09/22908 Adherent Yellow Slough % None 04/09/22908 Moist Yellow Slough % None 04/09/22908 Dry Black Eschar % None 04/09/22908 Moist Black Eschar % None 04/09/22908 Epithelialization % 76-100% 04/09/22908 Granulation % None 04/09/22908 Exposed Structure None 04/09/22908 Wound Bed Characteristics Epitheliaization 04/09/22908 Carli-wound Assessment Temperature WNL;Clean;Intact 04/09/22908 Treatments Not Applicable 04/09/22908 Hemostasis Not applicable 06/06/22 0909 Cleansed Not Applicable 04/09/22 0909 Primary Dressing Gauze pad 04/09/22 09 Secondary Dressing Not applicable 04/09/22 0909 Compression Dressing Spencer wrap 04/09/22 09 documented in this [id number] History of Present illness Narrative* Ramana Jaramillo DPM - 04/09/2022 9:13 AM EDTAssociated Order(s): Wound Debridement Post-Procedure Diagnose(s): 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 Mikayla Pappas 1960 [id number] Physicians: Greyson Dominguez MD (Family); No ref. provider found (Referring) HPI Mikayla Pappas is a 61 y.o. 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 He reports doing well this morning and presents today in a wheel chair. Partial 5th ray amputation site is healed. Dorsal foot pressure injury is improving with xerform dressing changes. He states that his pain is minimal.He is at a SNF right now and they have been doing the wound vac changes 3x per week with improvement of the heel, there is new granulation tissue. Most of his wound appears granulated in and only probes to subcutaneous tissue. He is inquiring about discontinuing the wound vac. He finished his antibiotic course as prescribed. 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 Denies any systemic symptoms. No other pedal complaints. 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 presser f/u Past Surgical History: Procedure Laterality Date AMPUTATION FOOT Left 08/05/2020 Procedure: POSSIBLE AMPUTATION; Surgeon: Jet Calvillo DPM; Location: [facility] OR; Service: Podiatry AMPUTATION TOE(S) Right 08/03/2016 Procedure: RIGHT 3RD DIGIT AMPUTATION ; Surgeon: Jet Calvillo DPM; Location: [facility] OR; Service: AMPUTATION TOE(S) Left 01/12/2022 Procedure: LEFT FOOT 5TH RAY PARTIAL AMPUTATION; Surgeon: Ramana Jaramillo DPM; Location: [facility] OR; Service: Podiatry CARDIAC CATHETERIZATION ablation for WPW CATHETER INSERTION SUPRAPUBIC N/A 08/16/2020 Procedure: CATHETER PLACEMENT OVER GUIDE; Surgeon: Paul Kim MD; Location: [facility] OR; Service: Urology CYSTO DIRECT VISION INTERNAL URETHROTOMY N/A 08/16/2020 Procedure: CYSTOSCOPY URETERAL DILATION POSSIBLE DIRECT VISION INTERNAL URETHROTOMY; Surgeon: Paul Kim MD; Location: [facility] OR; Service: Urology FOOT SURGERY Right 2nd toe partial amputation INCISION AND DRAINAGE FOOT AND ANKLE Left 07/29/2020 Procedure: LEFT FOOT ULCER INCISION AND DRAINAGE LEFT FOOT BONE DEBRIDEMENT W/ BIOPSY; Surgeon: Jet Calvillo DPM; Location: [facility] OR; Service: Podiatry INCISION AND DRAINAGE FOOT AND ANKLE Left 08/05/2020 Procedure: LEFT FOOT ULCER DEBRIDEMENT; Surgeon: Jet Calvillo DPM; Location: [facility]; Service: Podiatry INCISION AND DRAINAGE FOOT AND ANKLE Left 01/12/2022 Procedure: LEFT FOOT INCISION AND DRAINAGE W/ CALCANEOUS BONE BIOPSY; Surgeon: Ramana Jaramillo DPM; Location: [facility] OR; Service: Podiatry Social History Socioeconomic History Marital status: Tobacco Use Smoking status: Never Smokeless tobacco: Never Vaping Use Vaping Use: Never used Substance and Sexual Activity Alcohol use: No Drug use: No Family History Problem Relation Age of Onset Diabetes Father Surgical complications Neg Hx Anesthesia problems Neg Hx Heart disease Neg Hx Clotting disorder Neg Hx Deep vein thrombosis Neg Hx Pulmonary embolism Neg Hx Current Outpatient Medications on File Prior to Visit Medication Sig Dispense Refill acetaminophen (TYLENOL) 325 MG tablet Take 650 mg by mouth every 6 (six) hours as needed for pain or fever . alcohol swabs PadM Check your sugars up to 4 times a day . (Patient not taking: Reported on 03/02/2022 .) 100 each 11 amoxicillin (AMOXIL) 500 MG capsule aspirin 81 MG EC tablet Take 81 mg by mouth daily . atorvastatin (LIPITOR) 80 MG tablet Take 80 mg by mouth daily . bisacodyL (FLEET) 10 mg/30 mL Enem Insert 10 mg into the rectum once as needed . blood sugar diagnostic strips Check your sugars up to 4 times a day . 100 each 11 blood-glucose meter Misc Check your sugars up to 4 times a day . 1 each 0 cyanocobalamin (B-12) 500 MCG tablet Take 1 tablet by mouth daily . diclofenac sodium 1 % Gel Apply topically 4 (four) times a day . docusate sodium (COLACE) 100 MG capsule Take 100 mg by mouth 2 (two) times a day . DULoxetine (CYMBALTA) 60 MG capsule Take 60 mg by mouth at bedtime Along with 30 mg to make 90mg atbedtime . DULoxetine 30 mg CDRS Take 30 mg by mouth at bedtime Along with 60 mg to make 90mg at bedtime . ergocalciferol (ERGOCALCIFEROL) 1,250 mcg (50,000 unit) capsule Take 50,000 Units by mouth once a week . ferrous sulfate 325 (65 FE) MG tablet Take 1 tablet by mouth daily . flurbiprofen (OCUFEN) 0.03 % ophthalmic solution gabapentin (NEURONTIN) 100 MG capsule Take 100 mg by mouth daily . gabapentin (NEURONTIN) 300 MG capsule Take 300 mg by mouth at bedtime . glipiZIDE (GLUCOTROL XL) 10 MG 24 hr tablet Take 10 mg by mouth daily . guaiFENesin (MUCINEX) 600 mg 12 hr tablet Take 600 mg by mouth 2 (two) times a day as needed for congestion . hydrocortisone 1 % cream Apply topically 2 (two) times a day . insulin glargine (Lantus Solostar U-100 Insulin) 100 unit/mL (3 mL) InPn Inject 22 Units under the skin nightly . lancets Misc Check your sugars up to 4 times a day . 100 each 11 lidocaine (LIDODERM) 5 % patch Place 1 patch on the skin every 12 (twelve) hours Remove & Discard patch within 12 hours or as directed by MD- to back . loperamide (IMODIUM A-D) 2 mg tablet Take 2 mg by mouth 4 (four) times a day as needed for diarrheaMax 4 tablets in 24 hours . magnesium hydroxide (MOM) 400 mg/5 mL Susp Take 30 mL by mouth daily as needed . melatonin 5 mg Tab Take 5 mg by mouth at bedtime . NovoLOG U-100 Insulin aspart 100 unit/mL injection ondansetron (ZOFRAN-ODT) 4 MG disintegrating tablet Dissolve 4 mg on top of tongue every 6 (six) hours as needed for nausea . oxybutynin (DITROPAN-XL) 10 MG 24 hr tablet Take 10 mg by mouth daily . oxyCODONE-acetaminophen (PERCOCET) 5-325 mg per tablet Take 1 tablet by mouth every 6 (six) hours as needed for pain . pen needle, diabetic 32 gauge x /32 Ndle Change pen needles daily as needed up to 4 times. . 100 each 11 polyethylene glycol (MIRALAX) 17 gram powder Take 17 g by mouth daily . sitagliptin (JANUVIA) 50 MG tablet Take 50 mg by mouth daily . tiZANidine (ZANAFLEX) 2 MG tablet Take 2 mg by mouth 2 (two) times a day . Current Facility-Administered Medications on File Prior to Visit Medication Dose Route Frequency Provider Last Rate Last Admin lidocaine (LMX) 4 % cream Topical PRN Ramana Jaramillo, DPM 1 application at 03/19/22 0933 lidocaine (XYLOCAINE) 4 % (40 mg/mL) external solution Topical PRN Ramana Rosalesek, DPM Given at 01/29/22 1106 Allergies: Dilantin infatabs [phenytoin] Review of Systems: The following system(s) were reviewed and pertinent findings noted: Constitutional: negative Cardiovascular: negative Integumentary: ulceration Musculoskeletal:positive for muscle weakness Neurological: negative Physical Exam: Vital Signs: BP (!) 114/59 Pulse 71 Temp 98 F (36.7 C) (Oral) Resp 16 SpO2 97% Vascular: DP: weakly palpable PT: nonpalpable Musculoskeletal: Muscle strength 4/5. No gross deformities. Skin: Please refer to wound documentation below Wound 01/29/22 1 Pressure Injury Heel Left (Active) Date First Assessed: 01/29/22 Number: 1 Present on Hospital Admission: Yes Wound Approximate Age atFirst Assessment (Weeks): 2 weeks Primary Wound Type: Pressure Injury Location: Heel Wound LocationOrientation: Left Wound Outcome: Not healed Assessments 10/20/2020 2:07 AM 04/09/2022 9:09 AM Wound Image Wound Length (cm) -- 1.6 cm Wound Width (cm) -- 1.8 cm Wound Depth (cm) -- 0.7 cm Wound Surface Area (cm^2) -- 2.88 cm^2 Wound Volume (cm^3) -- 2.016 cm^3 Area % Change -- -34.5 Wound Healing % -- 88 Tunneling Maximum Distance (cm) -- 0 cm Tunneling Position (o'clock) -- 0 Tunneling Maximum Distance (cm) -- 0 cm Tunneling Position (o'clock) -- 0 Undermining Maximum Distance (cm) 1 -- 0 cm Undermining Starting Position (o'clock) 1 -- 0 Undermining Ending Position (o'clock) 1 -- 0 Undermining Maximum Distance (cm) 2 -- 0 cm Undermining Starting Position (o'clock) 2 -- 0 Undermining Ending Position (o'clock) 2 -- 0 Wound Progress -- Improving Pressure Injury Stage -- Stage 4 Drainage Amount -- Moderate Drainage Description -- Serosanguineous Odor -- None Wound Margin -- Well defined Adherent Yellow Slough % -- None Moist Yellow Slough % -- None Dry Black Eschar % -- None Moist Black Eschar % -- None Epithelialization % -- 1-25% Granulation % -- 76-100% Exposed Structure -- None Wound Bed Characteristics -- Granulation tissue Carli-wound Assessment -- Temperature WNL;Moist;White Treatments -- Topical anesthetic for procedural pain control per order;Assist with debridement Hemostasis -- Manual pressure Cleansed -- Sterile saline Primary Dressing -- Collagen with silver Secondary Dressing -- Gauze pad;Gauze roll Compression Dressing Single layer wrap Spencer wrap Active Orders Date Order Priority Status Authorizing Provider 04/09/22 0941 Wound Debridement Routine Active Boles Shafiek, DPM - Release to patient: Immediate Inactive Orders Date Order Priority Status Authorizing Provider 03/19/22 1009 Wound Debridement Routine Completed Boles Shafiek, DPM - Release to patient: Immediate 02/26/22 1001 Wound Debridement Routine Completed Boles Shafiek, DPM - Release to patient: Immediate 02/12/22 1201 Wound Debridement Routine Completed Ramana Jaramillo DPM - Release to patient: Immediate 01/30/22 0924 Wound Debridement Routine Completed Ramana Jaramillo DPM - Release to patient: Immediate 01/12/22 1904 Inpatient consult to Enterostomal Therapy Routine Completed Cedric Tan DPM - Reason For Consult?: Negative Pressure Dressing - Wound location(s) or Specific need: L heel 10/20/20 0212 Inpatient consult to Enterostomal Therapy Routine Completed Padmini Hernandez MD - Reason For Consult?: Wound Care - Wound location(s) or Specific need: Top and bottom of left foot Negative Pressure Wound Therapy 01/15/22 Left (Active) Date First Assessed/Time First Assessed: 01/15/22 1559 Location: Heel Wound Location Orientation: Left Assessments 01/15/2022 1:00 PM 01/17/2022 8:51 AM Wound Bed Characteristics -- CRISTA (Unable to assess) Unit Type -- Vac Ulta Cycle -- Continuous;On Target Pressure (mmHg) -- 125 Canister Changed -- No Dressing Status -- Clean;Dry;Intact Drainage Amount -- Scant Drainage Description -- Serosanguineous Output 0 mL -- No Linked orders to display Debridement Wound 01/29/22 1 Pressure Injury Heel Left Consent obtained? verbal Consent given by: patient Risks discussed? procedural risks discussed Immediately prior to the procedure a time out was called Performed by: physician Debridement type: surgical Level of debridement: subcutaneous tissue Pain control: lidocaine 4% Post-debridement measurements Length (cm): 1.6 Width (cm): 1.8 Depth (cm): 0.7 Percent debrided: 100% Surface Area (cm^2): 2.9 Area debrided (cm^2): 2.9 Volume (cm^3): 2 Devitalized tissue debrided: biofilm and slough Instrument(s) utilized: curette Bleeding: small Hemostasis obtained with: pressure Procedural pain (0-10): 0 Post-procedural pain: 0 Response to treatment: procedure was tolerated well Labs: Lab Results Component Value Date WBC 10.25 01/15/2022 Lab Results Component Value Date SEDRATE 74 (H) 01/09/2022 Lab Results Component Value Date CRP 28.4 (H) 01/09/2022 Imaging: EXAMINATION: MRI OF THE LEFT HINDFOOT WITHOUT CONTRAST; MRI OF THE LEFT FOOT WITHOUT CONTRAST 01/09/2022 TECHNIQUE: Multiplanar, multisequence MRI of the left hindfoot was performed without the administration of intravenous contrast.; Multiplanar, multisequence MRI of the left foot was performed without the administration of intravenous contrast. COMPARISON: 07/26/2020. HISTORY: ORDERING SYSTEM PROVIDED HISTORY: Please include foot and heel. Concern for possible OM at 5th MT, probes deeply to periosteum. Dry well-adhered eschar to calcaneus with no deep probe. No gross purulence on exam; TECHNOLOGIST PROVIDED HISTORY: Illness/Other Acuity: Unknown Reason for Exam: Diabetic ulcer of left foot associated with diabetes mellitus of other type, with other ulcer severity, unspecified part of foot ([facility]) Type of Encounter: Ongoing Additional signs and symptoms: Diabetic ulcer of left foot associated with diabetes mellitus of other type, with other ulcer severity, unspecified part of foot ([facility]) ORDERING SYSTEM PROVIDED DIAGNOSIS CODES: E11.628 Diabetic foot infection ([facility]) L08.9 Diabetic foot infection ([facility]) T14.8XXA Wound infection L08.9 Wound infection; ORDERING SYSTEM PROVIDED HISTORY: Concern for possible OM at 5th MT, probes deeply to periostum. Dry well-adhered eschar to calcaneus with no deep probe. No gross purulence on exam; FINDINGS: Motion artifact is present. Hindfoot: Plantar heel ulceration is present on the posterior lateral aspect of the heel soft tissues. No surrounding abscess or fluid collection in the heel soft tissues. Adjacent to the ulcer crater, there is focal marrow edema in the plantar aspect of the calcaneus with associated decreased T1 signal extending for a length of approximately 2 x 1.5 cm with a depth ofup to 1 cm concerning for acute osteomyelitis in the plantar calcaneus. Bone marrow signal in the talus, distal tibia and distal fibula is maintained. Bone marrow signal in the cuboid and midfoot bones is maintained. No discrete evidence of tendon tear or tenosynovitis. Superficial soft tissue edema is noted in theankle. Intramuscular edema is present with muscle atrophy involving the plantar musculature of the foot likely representing neuropathy. No evidence of joint effusion. Forefoot: Plantar lateral forefoot ulcer is present adjacent to the 5th MTP joint with surrounding cellulitis. There is edema along the ulcer crater without discrete fluid collection or drainable abscess. Marrow edema is present in the 5th metatarsal head and neck. Marrow edema throughout the proximal phalanx 5th digit. Findings are compatible with acute osteomyelitis given the proximity to the ulcer. Bone marrow signal in the 4th digit and 4th metatarsal is maintained. Increased signal is noted in the distal phalanx of the 1st, 2nd and 3rd digit which is nonspecific.This could be due to inhomogeneous fat suppression and artifact. Hammertoe deformity of the 2nd through 4th digits. The MTP joints are maintained. No joint effusion. Dorsal superficial soft tissue edema in the foot. IMPRESSION: 1. Acute osteomyelitis in the plantar calcaneus adjacent to the ulcer. 2. Acute osteomyelitis in the 5th metatarsal head and neck and proximal 5th phalanx adjacent to theulcer. 3. No soft tissue abscess. 4. Nonspecific increased signal in the distal phalanx of the 1st, 2nd and 3rd digits. This could bedue to artifact. This finding can also be seen with Raynaud's phenomenon or frostbite injury. 5. Intramuscular edema and atrophy in the plantar foot musculature compatible with neuropathy. [facility] Workstation ID: [id number] Vascular Studies: Procedure Description 98488 Duplex scan of lower extremity arteries or arterial bypass grafts using B- mode, color and spectral Doppler; complete bilateral study. Indications Code Description Weakly palpable DP, non palpable PT. Dry eschar to heel Conclusions Right. No evidence of hemodynamically significant stenosis of the right lower extremity. Right below knee amputation. Left. A significant stenosis (50-99%) is noted in the left proximal anterior tibial artery (ratio 4.8) . Left ANUP: 1.24 Measurements Right Left PSV Ratio Waveform PSV Ratio Waveforms 200 Multiphasic Iliac 187 Multiphasic 149 0.7 Multiphasic LABELING ASSOCIATE 163 0.9 Multiphasic 141 0.9 Multiphasic PFA 145 0.9 Multiphasic 115 0.8 Multiphasic SFA Prox 126 0.8 Multiphasic 97 0.8 Multiphasic SFA Mid 127 1.0 Multiphasic 73 0.7 Multiphasic SFA Dist 114 0.9 Multiphasic 84 1.2 Multiphasic POP Prox 110 1.0 Multiphasic 54 0.6 Multiphasic POP Mid 99 0.9 Multiphasic 58 1.1 Multiphasic POP Dist 105 1.1 Multiphasic YOUTH LIAISON OFFICER Prox 136 1.3 Multiphasic YOUTH LIAISON OFFICER Mid 110 0.8 Multiphasic YOUTH LIAISON OFFICER Dist 117 1.1 Multiphasic Jeannette Prox 84 0.8 Multiphasic Jeannette Mid 96 1.1 Multiphasic Jeannette Dist 105 1.1 Multiphasic KIM Prox 503 4.8 - KIM Mid 93 0.2 Multiphasic KIM Dist 81 0.9 Multiphasic Measurements Name Value Right PSV Right Distal EIA PSV 200 cm/s Right Mid LABELING ASSOCIATE PSV 149 cm/s Right Prox Profunda PSV 141 cm/s Right Prox SFA PSV 115 cm/s Right Mid SFA PSV 97 cm/s Right Distal SFA PSV 73 cm/s Right Prox Pop A PSV 84 cm/s Right Mid Pop A PSV 54 cm/s Right Distal Pop A PSV 58 cm/s Name Value Left PSV Left Distal EIA PSV 187 cm/s Left Mid LABELING ASSOCIATE PSV 163 cm/s Left Prox Profunda PSV 145 cm/s Left Prox SFA PSV 126 cm/s Left Mid SFA PSV 127 cm/s Left Distal SFA PSV 114 cm/s Left Prox Pop A PSV 110 cm/s Left Mid Pop A PSV 99 cm/s Left Distal Pop A PSV 105 cm/s Left Prox KIM PSV 503 cm/s Left Mid KIM PSV 93 cm/s Left Distal KIM PSV 81 cm/s Left Prox Jeannette A PSV 84 cm/s Left Mid Jeannette A PSV 96 cm/s Left Distal Jeannette A PSV 105 cm/s Left Prox YOUTH LIAISON OFFICER PSV 136 cm/s Left Mid YOUTH LIAISON OFFICER PSV 110 cm/s Left Distal YOUTH LIAISON OFFICER PSV 117 cm/s Left ANUP 1.24 Report Signatures Finalized by Fatmata Cosby MD, MS, RPVI on 2021 07 : 36 AM Assessment: Mikayla was seen today for wound check and dressing change. Diagnoses and all orders for this visit: Stage IV pressure ulcer of left heel (HCC) - Wound care Other orders - Wound Debridement Plan: Patient was seen and examined. The wound was fully evaluated and documented in the chart. Refer to procedure documentation for details on debridement. His partial 5th ray site is healed and well coapted. His heel wound is progressing well and debrided to a healthy bleeding granular base. There is more granulation tissue today and the calcaneus is no longer exposed. There is also new epithelialization noted to the wound bed. We can discontinue the wound vac at this time and transition to collagen dressing. Continue limited WB to the left lower extremity and continue offloading with the heel boots. I also discussed padding the dorsal foot/anterior ankle to avoid excess pressure and pressure wo unds to the area. Dressing: anastasia or epiona followed by dry dressing, change 3x per week Weightbearing: Ideally NWB to the LLE, however this is difficult due to BKA to the RLE. Ok for limited WB to transfer Follow up: 3 weeks Reviewed signs of infection including edema, erythema, purulent drainage, malodor, nausea, vomiting, fever, and chills. Patient denies any signs of infection today. he is instructed to go to the ED for evaluation if any signs present. Ramana Jaramillo DPM AACFAS documented in this [id number] History of Present illness Narrative* Ramana Jaramillo DPM - 04/09/2022 9:13 AM EDTAssociated Order(s): Wound Debridement Post-Procedure Diagnose(s): 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 Mikayla Pappas 1960 [id number] Physicians: Greyson Dominguez MD (Family); No ref. provider found (Referring) HPI Mikayla Pappas is a 61 y.o. 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 He reports doing well this morning and presents today in a wheel chair. Partial 5th ray amputation site is healed. Dorsal foot pressure injury is improving with xerform dressing changes. He states that his pain is minimal.He is at a SNF right now and they have been doing the wound vac changes 3x per week with improvement of the heel, there is new granulation tissue. Most of his wound appears granulated in and only probes to subcutaneous tissue. He is inquiring about discontinuing the wound vac. He finished his antibiotic course as prescribed. 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 Denies any systemic symptoms. No other pedal complaints. 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 History of depression no current meds Hyperlipidemia Hypertension Obesity Open wound right 3rd toe Seizures (HCC) questionable when a child, no recurrence Sleep apnea, obstructive partial compliance with CPAP WPW (Wyhbk-Byakatfnf-Wvpbn syndrome) 1990 s/p RFA in 1990, no current bobbin presser f/u Past Surgical History: Procedure Laterality Date AMPUTATION FOOT Left 08/05/2020 Procedure: POSSIBLE AMPUTATION; Surgeon: Jet Calvillo DPM; Location: [facility] OR; Service: Podiatry AMPUTATION TOE(S) Right 08/03/2016 Procedure: RIGHT 3RD DIGIT AMPUTATION ; Surgeon: Jet Calvillo DPM; Location: [facility] OR; Service: AMPUTATION TOE(S) Left 01/12/2022 Procedure: LEFT FOOT 5TH RAY PARTIAL AMPUTATION; Surgeon: Ramana Jaramillo DPM; Location: [facility] OR; Service: Podiatry CARDIAC CATHETERIZATION ablation for WPW CATHETER INSERTION SUPRAPUBIC N/A 08/16/2020 Procedure: CATHETER PLACEMENT OVER GUIDE; Surgeon: Paul Kim MD; Location: [facility] OR; Service: Urology CYSTO DIRECT VISION INTERNAL URETHROTOMY N/A 08/16/2020 Procedure: CYSTOSCOPY URETERAL DILATION POSSIBLE DIRECT VISION INTERNAL URETHROTOMY; Surgeon: Paul Kim MD; [place] [facility]; Service: Urology FOOT SURGERY Right 2nd toe partial amputation INCISION AND DRAINAGE FOOT AND ANKLE Left 07/29/2020 Procedure: LEFT FOOT ULCER INCISION AND DRAINAGE LEFT FOOT BONE DEBRIDEMENT W/ BIOPSY; Surgeon: Jet Calvillo DPM; Location: [facility] OR; Service: Podiatry INCISION AND DRAINAGE FOOT AND ANKLE Left 08/05/2020 Procedure: LEFT FOOT ULCER DEBRIDEMENT; Surgeon: Jet Calvillo DPM; Location: [facility] OR; Service: Podiatry INCISION AND DRAINAGE FOOT AND ANKLE Left 01/12/2022 Procedure: LEFT FOOT INCISION AND DRAINAGE W/ CALCANEOUS BONE BIOPSY; Surgeon: Ramana Jaramillo DPM; Location: [facility] OR; Service: Podiatry Social History Socioeconomic History Marital status: Tobacco Use Smoking status: Never Smokeless tobacco: Never Vaping Use Vaping Use: Never used Substance and Sexual Activity Alcohol use: No Drug use: No Family History Problem Relation Age of Onset Diabetes Father Surgical complications Neg Hx Anesthesia problems Neg Hx Heart disease Neg Hx Clotting disorder Neg Hx Deep vein thrombosis Neg Hx Pulmonary embolism Neg Hx Current Outpatient Medications on File Prior to Visit Medication Sig Dispense Refill acetaminophen (TYLENOL) 325 MG tablet Take 650 mg by mouth every 6 (six) hours as needed for pain or fever . alcohol swabs PadM Check your sugars up to 4 times a day . (Patient not taking: Reported on 03/02/2022 .) 100 each 11 amoxicillin (AMOXIL) 500 MG capsule aspirin 81 MG EC tablet Take 81 mg by mouth daily . atorvastatin (LIPITOR) 80 MG tablet Take 80 mg by mouth daily . bisacodyL (FLEET) 10 mg/30 mL Enem Insert 10 mg into the rectum once as needed . blood sugar diagnostic strips Check your sugars up to 4 times a day . 100 each 11 blood-glucose meter Misc Check your sugars up to 4 times a day . 1 each 0 cyanocobalamin (B-12) 500 MCG tablet Take 1 tablet by mouth daily . diclofenac sodium 1 % Gel Apply topically 4 (four) times a day . docusate sodium (COLACE) 100 MG capsule Take 100 mg by mouth 2 (two) times a day . DULoxetine (CYMBALTA) 60 MG capsule Take 60 mg by mouth at bedtime Along with 30 mg to make 90mg atbedtime . DULoxetine 30 mg CDRS Take 30 mg by mouth at bedtime Along with 60 mg to make 90mg at bedtime . ergocalciferol (ERGOCALCIFEROL) 1,250 mcg (50,000 unit) capsule Take 50,000 Units by mouth once a week . ferrous sulfate 325 (65 FE) MG tablet Take 1 tablet by mouth daily . flurbiprofen (OCUFEN) 0.03 % ophthalmic solution gabapentin (NEURONTIN) 100 MG capsule Take 100 mg by mouth daily . gabapentin (NEURONTIN) 300 MG capsule Take 300 mg by mouth at bedtime . glipiZIDE (GLUCOTROL XL) 10 MG 24 hr tablet Take 10 mg by mouth daily . guaiFENesin (MUCINEX) 600 mg 12 hr tablet Take 600 mg by mouth 2 (two) times a day as needed for congestion . hydrocortisone 1 % cream Apply topically 2 (two) times a day . insulin glargine (Lantus Solostar U-100 Insulin) 100 unit/mL (3 mL) InPn Inject 22 Units under the skin nightly . lancets Misc Check your sugars up to 4 times a day . 100 each 11 lidocaine (LIDODERM) 5 % patch Place 1 patch on the skin every 12 (twelve) hours Remove & Discard patch within 12 hours or as directed by MD- to back . loperamide (IMODIUM A-D) 2 mg tablet Take 2 mg by mouth 4 (four) times a day as needed for diarrheaMax 4 tablets in 24 hours . magnesium hydroxide (MOM) 400 mg/5 mL Susp Take 30 mL by mouth daily as needed . melatonin 5 mg Tab Take 5 mg by mouth at bedtime . NovoLOG U-100 Insulin aspart 100 unit/mL injection ondansetron (ZOFRAN-ODT) 4 MG disintegrating tablet Dissolve 4 mg on top of tongue every 6 (six) hours as needed for nausea . oxybutynin (DITROPAN-XL) 10 MG 24 hr tablet Take 10 mg by mouth daily . oxyCODONE-acetaminophen (PERCOCET) 5-325 mg per tablet Take 1 tablet by mouth every 6 (six) hours as needed for pain . pen needle, diabetic 32 gauge x 5/32 Ndle Change pen needles daily as needed up to 4 times. . 100 each 11 polyethylene glycol (MIRALAX) 17 gram powder Take 17 g by mouth daily . sitagliptin (JANUVIA) 50 MG tablet Take 50 mg by mouth daily . tiZANidine (ZANAFLEX) 2 MG tablet Take 2 mg by mouth 2 (two) times a day . Current Facility-Administered Medications on File Prior to Visit Medication Dose Route Frequency Provider Last Rate Last Admin lidocaine (LMX) 4 % cream Topical PRN Boles Bobbyek, DPM 1 application at 03/19/22 0933 lidocaine (XYLOCAINE) 4 % (40 mg/mL) external solution Topical PRN Ramana Rosalesek, DPM Given at 01/29/22 1106 Allergies: Dilantin infatabs [phenytoin] Review of Systems: The following system(s) were reviewed and pertinent findings noted: Constitutional: negative Cardiovascular: negative Integumentary: ulceration Musculoskeletal:positive for muscle weakness Neurological: negative Physical Exam: Vital Signs: BP (!) 114/59 Pulse 71 Temp 98 F (36.7 C) (Oral) Resp 16 SpO2 97% Vascular: DP: weakly palpable PT: nonpalpable Musculoskeletal: Muscle strength 4/5. No gross deformities. Skin: Please refer to wound documentation below Wound 01/29/22 1 Pressure Injury Heel Left (Active) Date First Assessed: 01/29/22 Number: 1 Present on Hospital Admission: Yes Wound Approximate Age atFirst Assessment (Weeks): 2 weeks Primary Wound Type: Pressure Injury Location: Heel Wound LocationOrientation: Left Wound Outcome: Not healed Assessments 10/20/2020 2:07 AM 04/09/2022 9:09 AM Wound Image Wound Length (cm) -- 1.6 cm Wound Width (cm) -- 1.8 cm Wound Depth (cm) -- 0.7 cm Wound Surface Area (cm^2) -- 2.88 cm^2 Wound Volume (cm^3) -- 2.016 cm^3 Area % Change -- -34.5 Wound Healing % -- 88 Tunneling Maximum Distance (cm) -- 0 cm Tunneling Position (o'clock) -- 0 Tunneling Maximum Distance (cm) -- 0 cm Tunneling Position (o'clock) -- 0 Undermining Maximum Distance (cm) 1 -- 0 cm Undermining Starting Position (o'clock) 1 -- 0 Undermining Ending Position (o'clock) 1 -- 0 Undermining Maximum Distance (cm) 2 -- 0 cm Undermining Starting Position (o'clock) 2 -- 0 Undermining Ending Position (o'clock) 2 -- 0 Wound Progress -- Improving Pressure Injury Stage -- Stage 4 Drainage Amount -- Moderate Drainage Description -- Serosanguineous Odor -- None Wound Margin -- Well defined Adherent Yellow Slough % -- None Moist Yellow Slough % -- None Dry Black Eschar % -- None Moist Black Eschar % -- None Epithelialization % -- 1-25% Granulation % -- 76-100% Exposed Structure -- None Wound Bed Characteristics -- Granulation tissue Carli-wound Assessment -- Temperature WNL;Moist;White Treatments -- Topical anesthetic for procedural pain control per order;Assist with debridement Hemostasis -- Manual pressure Cleansed -- Sterile saline Primary Dressing -- Collagen with silver Secondary Dressing -- Gauze pad;Gauze roll Compression Dressing Single layer wrap Spencer wrap Active Orders Date Order Priority Status Authorizing Provider 04/09/22 0941 Wound Debridement Routine Active Boles Shafiek, DPM - Release to patient: Immediate Inactive Orders Date Order Priority Status Authorizing Provider 03/19/22 1009 Wound Debridement Routine Completed Boles Shafiek, DPM - Release to patient: Immediate 02/26/22 1001 Wound Debridement Routine Completed Boles Shafiek, DPM - Release to patient: Immediate 02/12/22 1201 Wound Debridement Routine Completed Boles Shafiek, DPM - Release to patient: Immediate 01/30/22 0924 Wound Debridement Routine Completed Boles Shafiek, DPM - Release to patient: Immediate 01/12/22 1904 Inpatient consult to Enterostomal Therapy Routine Completed Cedric Tan DPM - Reason For Consult?: Negative Pressure Dressing - Wound location(s) or Specific need: L heel 10/20/20 0212 Inpatient consult to Enterostomal Therapy Routine Completed Padmini Hernandez MD - Reason For Consult?: Wound Care - Wound location(s) or Specific need: Top and bottom of left foot Negative Pressure Wound Therapy 01/15/22 Left (Active) Date First Assessed/Time First Assessed: 01/15/22 1559 Location: Heel Wound Location Orientation: Left Assessments 01/15/2022 1:00 PM 01/17/2022 8:51 AM Wound Bed Characteristics -- CRISTA (Unable to assess) Unit Type -- Vac Ulta Cycle -- Continuous;On Target Pressure (mmHg) -- 125 Canister Changed -- No Dressing Status -- Clean;Dry;Intact Drainage Amount -- Scant Drainage Description -- Serosanguineous Output 0 mL -- No Linked orders to display Debridement Wound 01/29/22 1 Pressure Injury Heel Left Consent obtained? verbal Consent given by: patient Risks discussed? procedural risks discussed Immediately prior to the procedure a time out was called Performed by: physician Debridement type: surgical Level of debridement: subcutaneous tissue Pain control: lidocaine 4% Post-debridement measurements Length (cm): 1.6 Width (cm): 1.8 Depth (cm): 0.7 Percent debrided: 100% Surface Area (cm^2): 2.9 Area debrided (cm^2): 2.9 Volume (cm^3): 2 Devitalized tissue debrided: biofilm and slough Instrument(s) utilized: curette Bleeding: small Hemostasis obtained with: pressure Procedural pain (0-10): 0 Post-procedural pain: 0 Response to treatment: procedure was tolerated well Labs: Lab Results Component Value Date WBC 10.25 01/15/2022 Lab Results Component Value Date SEDRATE 74 (H) 01/09/2022 Lab Results Component Value Date CRP 28.4 (H) 01/09/2022 Imaging: EXAMINATION: MRI OF THE LEFT HINDFOOT WITHOUT CONTRAST; MRI OF THE LEFT FOOT WITHOUT CONTRAST 01/09/2022 TECHNIQUE: Multiplanar, multisequence MRI of the left hindfoot was performed without the administration of intravenous contrast.; Multiplanar, multisequence MRI of the left foot was performed without the administration of intravenous contrast. COMPARISON: 07/26/2020. HISTORY: ORDERING SYSTEM PROVIDED HISTORY: Please include foot and heel. Concern for possible OM at 5th MT, probes deeply to periosteum. Dry well-adhered eschar to calcaneus with no deep probe. No gross purulence on exam; TECHNOLOGIST PROVIDED HISTORY: Illness/Other Acuity: Unknown Reason for Exam: Diabetic ulcer of left foot associated with diabetes mellitus of other type, with other ulcer severity, unspecified part of foot ([facility]) Type of Encounter: Ongoing Additional signs and symptoms: Diabetic ulcer of left foot associated with diabetes mellitus of other type, with other ulcer severity, unspecified part of foot ([facility]) ORDERING SYSTEM PROVIDED DIAGNOSIS CODES: E11.628 Diabetic foot infection ([facility]) L08.9 Diabetic foot infection ([facility]) T14.8XXA Wound infection L08.9 Wound infection; ORDERING SYSTEM PROVIDED HISTORY: Concern for possible OM at 5th MT, probes deeply to periostum. Dry well-adhered eschar to calcaneus with no deep probe. No gross purulence on exam; FINDINGS: Motion artifact is present. Hindfoot: Plantar heel ulceration is present on the posterior lateral aspect of the heel soft tissues. No surrounding abscess or fluid collection in the heel soft tissues. Adjacent to the ulcer crater, there is focal marrow edema in the plantar aspect of the calcaneus with associated decreased T1 signal extending for a length of approximately 2 x 1.5 cm with a depth ofup to 1 cm concerning for acute osteomyelitis in the plantar calcaneus. Bone marrow signal in the talus, distal tibia and distal fibula is maintained. Bone marrow signal in the cuboid and midfoot bones is maintained. No discrete evidence of tendon tear or tenosynovitis. Superficial soft tissue edema is noted in theankle. Intramuscular edema is present with muscle atrophy involving the plantar musculature of the foot likely representing neuropathy. No evidence of joint effusion. Forefoot: Plantar lateral forefoot ulcer is present adjacent to the 5th MTP joint with surrounding cellulitis. There is edema along the ulcer crater without discrete fluid collection or drainable abscess. Marrow edema is present in the 5th metatarsal head and neck. Marrow edema throughout the proximal phalanx 5th digit. Findings are compatible with acute osteomyelitis given the proximity to the ulcer. Bone marrow signal in the 4th digit and 4th metatarsal is maintained. Increased signal is noted in the distal phalanx of the 1st, 2nd and 3rd digit which is nonspecific.This could be due to inhomogeneous fat suppression and artifact. Hammertoe deformity of the 2nd through 4th digits. The MTP joints are maintained. No joint effusion. Dorsal superficial soft tissue edema in the foot. IMPRESSION: 1. Acute osteomyelitis in the plantar calcaneus adjacent to the ulcer. 2. Acute osteomyelitis in the 5th metatarsal head and neck and proximal 5th phalanx adjacent to theulcer. 3. No soft tissue abscess. 4. Nonspecific increased signal in the distal phalanx of the 1st, 2nd and 3rd digits. This could bedue to artifact. This finding can also be seen with Raynaud's phenomenon or frostbite injury. 5. Intramuscular edema and atrophy in the plantar foot musculature compatible with neuropathy. [facility] Workstation ID: [id number] Vascular Studies: Procedure Description 90789 Duplex scan of lower extremity arteries or arterial bypass grafts using B- mode, color and spectral Doppler; complete bilateral study. Indications Code Description Weakly palpable DP, non palpable PT. Dry eschar to heel Conclusions Right. No evidence of hemodynamically significant stenosis of the right lower extremity. Right below knee amputation. Left. A significant stenosis (50-99%) is noted in the left proximal anterior tibial artery (ratio 4.8) . Left ANUP: 1.24 Measurements Right Left PSV Ratio Waveform PSV Ratio Waveforms 200 Multiphasic Iliac 187 Multiphasic 149 0.7 Multiphasic LABELING ASSOCIATE 163 0.9 Multiphasic 141 0.9 Multiphasic PFA 145 0.9 Multiphasic 115 0.8 Multiphasic SFA Prox 126 0.8 Multiphasic 97 0.8 Multiphasic SFA Mid 127 1.0 Multiphasic 73 0.7 Multiphasic SFA Dist 114 0.9 Multiphasic 84 1.2 Multiphasic POP Prox 110 1.0 Multiphasic 54 0.6 Multiphasic POP Mid 99 0.9 Multiphasic 58 1.1 Multiphasic POP Dist 105 1.1 Multiphasic YOUTH LIAISON OFFICER Prox 136 1.3 Multiphasic YOUTH LIAISON OFFICER Mid 110 0.8 Multiphasic YOUTH LIAISON OFFICER Dist 117 1.1 Multiphasic Jeannette Prox 84 0.8 Multiphasic Jeannette Mid 96 1.1 Multiphasic Jeannette Dist 105 1.1 Multiphasic KMI Prox 503 4.8 - KIM Mid 93 0.2 Multiphasic KIM Dist 81 0.9 Multiphasic Measurements Name Value Right PSV Right Distal EIA PSV 200 cm/s Right Mid LABELING ASSOCIATE PSV 149 cm/s Right Prox Profunda PSV 141 cm/s Right Prox SFA PSV 115 cm/s Right Mid SFA PSV 97 cm/s Right Distal SFA PSV 73 cm/s Right Prox Pop A PSV 84 cm/s Right Mid Pop A PSV 54 cm/s Right Distal Pop A PSV 58 cm/s Name Value Left PSV Left Distal EIA PSV 187 cm/s Left Mid LABELING ASSOCIATE PSV 163 cm/s Left Prox Profunda PSV 145 cm/s Left Prox SFA PSV 126 cm/s Left Mid SFA PSV 127 cm/s Left Distal SFA PSV 114 cm/s Left Prox Pop A PSV 110 cm/s Left Mid Pop A PSV 99 cm/s Left Distal Pop A PSV 105 cm/s Left Prox KIM PSV 503 cm/s Left Mid KIM PSV 93 cm/s Left Distal KIM PSV 81 cm/s Left Prox Jeannette A PSV 84 cm/s Left Mid Jeannette A PSV 96 cm/s Left Distal Jeannette A PSV 105 cm/s Left Prox YOUTH LIAISON OFFICER PSV 136 cm/s Left Mid YOUTH LIAISON OFFICER PSV 110 cm/s Left Distal YOUTH LIAISON OFFICER PSV 117 cm/s Left ANUP 1.24 Report Signatures Finalized by Fatmata Cosby MD, MS, RPVI on 2021 07 : 36 AM Assessment: Mikayla was seen today for wound check and dressing change. Diagnoses and all orders for this visit: Stage IV pressure ulcer of left heel (HCC) - Wound care Other orders - Wound Debridement Plan: Patient was seen and examined. The wound was fully evaluated and documented in the chart. Refer to procedure documentation for details on debridement. His partial 5th ray site is healed and well coapted. His heel wound is progressing well and debrided to a healthy bleeding granular base. There is more granulation tissue today and the calcaneus is no longer exposed. There is also new epithelialization noted to the wound bed. We can discontinue the wound vac at this time and transition to collagen dressing. Continue limited WB to the left lower extremity and continue offloading with the heel boots. I also discussed padding the dorsal foot/anterior ankle to avoid excess pressure and pressure wo unds to the area. Dressing: anastasia or epiona followed by dry dressing, change 3x per week Weightbearing: Ideally NWB to the LLE, however this is difficult due to BKA to the RLE. Ok for limited WB to transfer Follow up: 3 weeks Reviewed signs of infection including edema, erythema, purulent drainage, malodor, nausea, vomiting, fever, and chills. Patient denies any signs of infection today. he is instructed to go to the ED for evaluation if any signs present. Ramana Jaramillo DPM AACFAS documented in this [id number] History of Present illness Narrative* Ramana Jaramillo DPM - 03/19/2022 10:02 AM EDTAssociated Order(s): Wound Debridement Post-Procedure Diagnose(s): Decubitus ulcer of left heel, stage 4 (HCC) Images from the original note were not included. Mikayla Pappas 1960 [id number] Physicians: Greyson Dominguez MD (Family); No ref. provider found (Referring) HPI Mikayla Pappas is a 61 y.o. 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 He reports doing well this morning and presents today in a wheel chair. Partial 5th ray amputation site is healed. Dorsal foot pressure injury is improving with xerform dressing changes. He states that his pain is minimal.He is at a SNF right now and they have been doing the wound vac changes 3x per week with improvement of the heel, there is new granulation tissue. He finished his antibiotic course as prescribed. 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 Denies any systemic symptoms. No other pedal complaints. 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 bobbin presser f/u Past Surgical History: Procedure Laterality Date AMPUTATION FOOT Left 08/05/2020 Procedure: POSSIBLE AMPUTATION; Surgeon: Jet Calvillo DPM; Location: [facility] OR; Service: Podiatry AMPUTATION TOE(S) Right 08/03/2016 Procedure: RIGHT 3RD DIGIT AMPUTATION ; Surgeon: Jet Calvillo DPM; Location: [facility] OR; Service: AMPUTATION TOE(S) Left 01/12/2022 Procedure: LEFT FOOT 5TH RAY PARTIAL AMPUTATION; Surgeon: Ramana Jaramillo DPM; Location: [facility] OR; Service: Podiatry CARDIAC CATHETERIZATION ablation for WPW CATHETER INSERTION SUPRAPUBIC N/A 08/16/2020 Procedure: CATHETER PLACEMENT OVER GUIDE; Surgeon: Pual Kim MD; [facility]; Service: Urology CYSTO DIRECT VISION INTERNAL URETHROTOMY N/A 08/16/2020 Procedure: CYSTOSCOPY URETERAL DILATION POSSIBLE DIRECT VISION INTERNAL URETHROTOMY; Surgeon: Paul Kim MD; [place] [facility]; Service: Urology FOOT SURGERY Right 2nd toe partial amputation INCISION AND DRAINAGE FOOT AND ANKLE Left 07/29/2020 Procedure: LEFT FOOT ULCER INCISION AND DRAINAGE LEFT FOOT BONE DEBRIDEMENT W/ BIOPSY; Surgeon: Jet Calvillo DPM; Location: [facility] OR; Service: Podiatry INCISION AND DRAINAGE FOOT AND ANKLE Left 08/05/2020 Procedure: LEFT FOOT ULCER DEBRIDEMENT; Surgeon: Jet Calvillo DPM; Location: [facility] OR; Service: Podiatry INCISION AND DRAINAGE FOOT AND ANKLE Left 01/12/2022 Procedure: LEFT FOOT INCISION AND DRAINAGE W/ CALCANEOUS BONE BIOPSY; Surgeon: Ramana Jaramillo DPM; Location: [facility] OR; Service: Podiatry Social History Socioeconomic History Marital status: Tobacco Use Smoking status: Never Smokeless tobacco: Never Vaping Use Vaping Use: Never used Substance and Sexual Activity Alcohol use: No Drug use: No Family History Problem Relation Age of Onset Diabetes Father Surgical complications Neg Hx Anesthesia problems Neg Hx Heart disease Neg Hx Clotting disorder Neg Hx Deep vein thrombosis Neg Hx Pulmonary embolism Neg Hx Current Outpatient Medications on File Prior to Visit Medication Sig Dispense Refill acetaminophen (TYLENOL) 325 MG tablet Take 650 mg by mouth every 6 (six) hours as needed for pain or fever . alcohol swabs PadM Check your sugars up to 4 times a day . (Patient not taking: Reported on 03/02/2022 .) 100 each 11 aspirin 81 MG EC tablet Take 81 mg by mouth daily . atorvastatin (LIPITOR) 80 MG tablet Take 80 mg by mouth daily . bisacodyL (FLEET) 10 mg/30 mL Enem Insert 10 mg into the rectum once as needed . blood sugar diagnostic strips Check your sugars up to 4 times a day . 100 each 11 blood-glucose meter Misc Check your sugars up to 4 times a day . 1 each 0 cyanocobalamin (B-12) 500 MCG tablet Take 1 tablet by mouth daily . diclofenac sodium 1 % Gel Apply topically 4 (four) times a day . docusate sodium (COLACE) 100 MG capsule Take 100 mg by mouth 2 (two) times a day . DULoxetine (CYMBALTA) 60 MG capsule Take 60 mg by mouth at bedtime Along with 30 mg to make 90mg atbedtime . DULoxetine 30 mg CDRS Take 30 mg by mouth at bedtime Along with 60 mg to make 90mg at bedtime . ergocalciferol (ERGOCALCIFEROL) 1,250 mcg (50,000 unit) capsule Take 50,000 Units by mouth once a week . ferrous sulfate 325 (65 FE) MG tablet Take 1 tablet by mouth daily . gabapentin (NEURONTIN) 100 MG capsule Take 100 mg by mouth daily . gabapentin (NEURONTIN) 300 MG capsule Take 300 mg by mouth at bedtime . glipiZIDE (GLUCOTROL XL) 10 MG 24 hr tablet Take 10 mg by mouth daily . guaiFENesin (MUCINEX) 600 mg 12 hr tablet Take 600 mg by mouth 2 (two) times a day as needed for congestion . hydrocortisone 1 % cream Apply topically 2 (two) times a day . insulin glargine (Lantus Solostar U-100 Insulin) 100 unit/mL (3 mL) InPn Inject 22 Units under the skin nightly . lancets Misc Check your sugars up to 4 times a day . 100 each 11 lidocaine (LIDODERM) 5 % patch Place 1 patch on the skin every 12 (twelve) hours Remove & Discard patch within 12 hours or as directed by MD- to back . loperamide (IMODIUM A-D) 2 mg tablet Take 2 mg by mouth 4 (four) times a day as needed for diarrheaMax 4 tablets in 24 hours . magnesium hydroxide (MOM) 400 mg/5 mL Susp Take 30 mL by mouth daily as needed . melatonin 5 mg Tab Take 5 mg by mouth at bedtime . NovoLOG U-100 Insulin aspart 100 unit/mL injection ondansetron (ZOFRAN-ODT) 4 MG disintegrating tablet Dissolve 4 mg on top of tongue every 6 (six) hours as needed for nausea . oxybutynin (DITROPAN-XL) 10 MG 24 hr tablet Take 10 mg by mouth daily . oxyCODONE-acetaminophen (PERCOCET) 5-325 mg per tablet Take 1 tablet by mouth every 6 (six) hours as needed for pain . pen needle, diabetic 32 gauge x 32 Ndle Change pen needles daily as needed up to 4 times. . 100 each 11 polyethylene glycol (MIRALAX) 17 gram powder Take 17 g by mouth daily . sitagliptin (JANUVIA) 50 MG tablet Take 50 mg by mouth daily . tiZANidine (ZANAFLEX) 2 MG tablet Take 2 mg by mouth 2 (two) times a day . Current Facility-Administered Medications on File Prior to Visit Medication Dose Route Frequency Provider Last Rate Last Admin lidocaine (LMX) 4 % cream Topical PRN Boles Shafiek, DPM 1 application at 03/19/22 0933 lidocaine (XYLOCAINE) 4 % (40 mg/mL) external solution Topical PRN Boles Shafiek, DPM Given at 01/29/22 1106 Allergies: Dilantin infatabs [phenytoin] Review of Systems: The following system(s) were reviewed and pertinent findings noted: Constitutional: negative Cardiovascular: negative Integumentary: ulceration Musculoskeletal:positive for muscle weakness Neurological: negative Physical Exam: Vital Signs: BP 126/77 Pulse 76 Temp 97.9 F (36.6 C) (Temporal) Resp 18 SpO2 91% Vascular: DP: weakly palpable PT: nonpalpable Musculoskeletal: Muscle strength 4/5. No gross deformities. Skin: Please refer to wound documentation below Wound 01/29/22 1 Pressure Injury Heel Left (Active) Date First Assessed: 01/29/22 Number: 1 Present on Hospital Admission: Yes Wound Approximate Age atFirst Assessment (Weeks): 2 weeks Primary Wound Type: Pressure Injury Location: Heel Wound LocationOrientation: Left Wound Outcome: Not healed Assessments 10/20/2020 2:07 AM 03/19/2022 9:22 AM Wound Image Wound Length (cm) -- 2 cm Wound Width (cm) -- 2.2 cm Wound Depth (cm) -- 0.7 cm Wound Surface Area (cm^2) -- 4.4 cm^2 Wound Volume (cm^3) -- 3.08 cm^3 Area % Change -- -58.1 Wound Healing % -- 81 Tunneling Maximum Distance (cm) -- 0 cm Tunneling Position (o'clock) -- 0 Tunneling Maximum Distance (cm) -- 0 cm Tunneling Position (o'clock) -- 0 Undermining Maximum Distance (cm) 1 -- 0 cm Undermining Starting Position (o'clock) 1 -- 0 Undermining Ending Position (o'clock) 1 -- 0 Undermining Maximum Distance (cm) 2 -- 0 cm Undermining Starting Position (o'clock) 2 -- 0 Undermining Ending Position (o'clock) 2 -- 0 Wound Progress -- Improving Pressure Injury Stage -- Stage 4 Drainage Amount -- Moderate Drainage Description -- Serosanguineous Odor -- None Wound Margin -- Well defined Adherent Yellow Slough % -- None Moist Yellow Slough % -- None Dry Black Eschar % -- None Moist Black Eschar % -- None Epithelialization % -- None Granulation % -- 76-100%;Bright red Exposed Structure -- None Wound Bed Characteristics -- Granulation tissue Carli-wound Assessment -- Temperature WNL;Moist;White Treatments -- Topical anesthetic for procedural pain control per order;Assist with debridement Hemostasis -- Manual pressure Cleansed -- Sterile saline Primary Dressing -- Saline Secondary Dressing -- Gauze pad;Highly absorbent dressing;Gauze roll Compression Dressing Single layer wrap Spencer wrap Inactive Orders Date Order Priority Status Authorizing Provider 02/26/22 1001 Wound Debridement Routine Completed Ramana Jaramillo DPM - Release to patient: Immediate 02/12/22 1201 Wound Debridement Routine Completed Bolesamber Jaramillo, DPM - Release to patient: Immediate 01/30/22 0924 Wound Debridement Routine Completed Ramana Jaramillo DPM - Release to patient: Immediate 01/12/22 1904 Inpatient consult to Enterostomal Therapy Routine Completed Cedric Tan DPM - Reason For Consult?: Negative Pressure Dressing - Wound location(s) or Specific need: L heel 10/20/20 0212 Inpatient consult to Enterostomal Therapy Routine Completed Padmini Hernandez MD - Reason For Consult?: Wound Care - Wound location(s) or Specific need: Top and bottom of left foot Negative Pressure Wound Therapy 01/15/22 Left (Active) Date First Assessed/Time First Assessed: 01/15/22 1559 Location: Heel Wound Location Orientation: Left Assessments 01/15/2022 1:00 PM 01/17/2022 8:51 AM Wound Bed Characteristics -- CRISTA (Unable to assess) Unit Type -- Vac Ulta Cycle -- Continuous;On Target Pressure (mmHg) -- 125 Canister Changed -- No Dressing Status -- Clean;Dry;Intact Drainage Amount -- Scant Drainage Description -- Serosanguineous Output 0 mL -- No Linked orders to display Wound 02/12/22 2 Foot Dorsal (Active) Date First Assessed: 02/12/22 Number: 2 Present on Hospital Admission: No Wound Approximate Age at First Assessment (Weeks): 2 weeks Location: Foot Wound Location Orientation: Dorsal Wound Outcome: Not healed Assessments 02/12/2022 10:22 AM 03/19/2022 9:22 AM Wound Image Wound Length (cm) 1.8 cm 0.7 cm Wound Width (cm) 1.5 cm 0.3 cm Wound Depth (cm) 0.1 cm 0.1 cm Wound Surface Area (cm^2) 2.7 cm^2 0.21 cm^2 Wound Volume (cm^3) 0.27 cm^3 0.021 cm^3 Area % Change 0 -79 Wound Healing % -- 92 Tunneling Maximum Distance (cm) 0 cm 0 cm Tunneling Position (o'clock) 0 0 Tunneling Maximum Distance (cm) 0 cm 0 cm Tunneling Position (o'clock) 0 0 Undermining Maximum Distance (cm) 1 0 cm 0 cm Undermining Starting Position (o'clock) 1 0 0 Undermining Ending Position (o'clock) 1 0 0 Undermining Maximum Distance (cm) 2 0 cm 0 cm Undermining Starting Position (o'clock) 2 0 0 Undermining Ending Position (o'clock) 2 0 0 Wound Progress Initial exam Improving Non-staged Wound Description Full thickness Full thickness Drainage Amount Moderate Scant Drainage Description Serosanguineous Serous;Yellow Odor None None Wound Margin Well defined Undefined Adherent Yellow Slough % 26-50% None Moist Yellow Slough % None None Dry Black Eschar % None None Moist Black Eschar % None None Epithelialization % 1-25% 1-25% Granulation % 1-25% 76-100% Exposed Structure None None Wound Bed Characteristics Granulation tissue;Epitheliaization;Brown Granulation tissue;Epitheliaization Carli-wound Assessment Temperature WNL;Fragile Temperature WNL;Fragile Treatments Topical anesthetic for procedural pain control per order Not Applicable Hemostasis Manual pressure Not applicable Cleansed Sodium hypochlorus solution Sterile saline Primary Dressing Impregnated gauze Impregnated gauze Secondary Dressing Highly absorbent dressing;Gauze roll Gauze pad;Gauze roll Compression Dressing Spencer wrap Spencer wrap No Linked orders to display Debridement Wound 01/29/22 1 Pressure Injury Heel Left Consent obtained? verbal Consent given by: patient Risks discussed? procedural risks discussed Immediately prior to the procedure a time out was called Performed by: physician Debridement type: surgical Level of debridement: muscle Pain control: lidocaine 4% Post-debridement measurements Length (cm): 2 Width (cm): 2.2 Depth (cm): 0.7 Percent debrided: 100% Surface Area (cm^2): 4.4 Area debrided (cm^2): 4.4 Volume (cm^3): 3.1 Devitalized tissue debrided: biofilm and exudate Instrument(s) utilized: curette Bleeding: medium Hemostasis obtained with: pressure Procedural pain (0-10): insensate Post-procedural pain: insensate Response to treatment: procedure was tolerated well Labs: Lab Results Component Value Date WBC 10.25 01/15/2022 Lab Results Component Value Date SEDRATE 74 (H) 01/09/2022 Lab Results Component Value Date CRP 28.4 (H) 01/09/2022 Imaging: EXAMINATION: MRI OF THE LEFT HINDFOOT WITHOUT CONTRAST; MRI OF THE LEFT FOOT WITHOUT CONTRAST 01/09/2022 TECHNIQUE: Multiplanar, multisequence MRI of the left hindfoot was performed without the administration of intravenous contrast.; Multiplanar, multisequence MRI of the left foot was performed without the administration of intravenous contrast. COMPARISON: 07/26/2020. HISTORY: ORDERING SYSTEM PROVIDED HISTORY: Please include foot and heel. Concern for possible OM at 5th MT, probes deeply to periosteum. Dry well-adhered eschar to calcaneus with no deep probe. No gross purulence on exam; TECHNOLOGIST PROVIDED HISTORY: Illness/Other Acuity: Unknown Reason for Exam: Diabetic ulcer of left foot associated with diabetes mellitus of other type, with other ulcer severity, unspecified part of foot ([facility]) Type of Encounter: Ongoing Additional signs and symptoms: Diabetic ulcer of left foot associated with diabetes mellitus of other type, with other ulcer severity, unspecified part of foot ([facility]) ORDERING SYSTEM PROVIDED DIAGNOSIS CODES: E11.628 Diabetic foot infection ([facility]) L08.9 Diabetic foot infection ([facility]) T14.8XXA Wound infection L08.9 Wound infection; ORDERING SYSTEM PROVIDED HISTORY: Concern for possible OM at 5th MT, probes deeply to periostum. Dry well-adhered eschar to calcaneus with no deep probe. No gross purulence on exam; FINDINGS: Motion artifact is present. Hindfoot: Plantar heel ulceration is present on the posterior lateral aspect of the heel soft tissues. No surrounding abscess or fluid collection in the heel soft tissues. Adjacent to the ulcer crater, there is focal marrow edema in the plantar aspect of the calcaneus with associated decreased T1 signal extending for a length of approximately 2 x 1.5 cm with a depth ofup to 1 cm concerning for acute osteomyelitis in the plantar calcaneus. Bone marrow signal in the talus, distal tibia and distal fibula is maintained. Bone marrow signal in the cuboid and midfoot bones is maintained. No discrete evidence of tendon tear or tenosynovitis. Superficial soft tissue edema is noted in theankle. Intramuscular edema is present with muscle atrophy involving the plantar musculature of the foot likely representing neuropathy. No evidence of joint effusion. Forefoot: Plantar lateral forefoot ulcer is present adjacent to the 5th MTP joint with surrounding cellulitis. There is edema along the ulcer crater without discrete fluid collection or drainable abscess. Marrow edema is present in the 5th metatarsal head and neck. Marrow edema throughout the proximal phalanx 5th digit. Findings are compatible with acute osteomyelitis given the proximity to the ulcer. Bone marrow signal in the 4th digit and 4th metatarsal is maintained. Increased signal is noted in the distal phalanx of the 1st, 2nd and 3rd digit which is nonspecific.This could be due to inhomogeneous fat suppression and artifact. Hammertoe deformity of the 2nd through 4th digits. The MTP joints are maintained. No joint effusion. Dorsal superficial soft tissue edema in the foot. IMPRESSION: 1. Acute osteomyelitis in the plantar calcaneus adjacent to the ulcer. 2. Acute osteomyelitis in the 5th metatarsal head and neck and proximal 5th phalanx adjacent to theulcer. 3. No soft tissue abscess. 4. Nonspecific increased signal in the distal phalanx of the 1st, 2nd and 3rd digits. This could bedue to artifact. This finding can also be seen with Raynaud's phenomenon or frostbite injury. 5. Intramuscular edema and atrophy in the plantar foot musculature compatible with neuropathy. /[facility] Workstation ID: [id number] Vascular Studies: Procedure Description 40021 Duplex scan of lower extremity arteries or arterial bypass grafts using B- mode, color and spectral Doppler; complete bilateral study. Indications Code Description Weakly palpable DP, non palpable PT. Dry eschar to heel Conclusions Right. No evidence of hemodynamically significant stenosis of the right lower extremity. Right below knee amputation. Left. A significant stenosis (50-99%) is noted in the left proximal anterior tibial artery (ratio 4.8) . Left ANUP: 1.24 Measurements Right Left PSV Ratio Waveform PSV Ratio Waveforms 200 Multiphasic Iliac 187 Multiphasic 149 0.7 Multiphasic LABELING ASSOCIATE 163 0.9 Multiphasic 141 0.9 Multiphasic PFA 145 0.9 Multiphasic 115 0.8 Multiphasic SFA Prox 126 0.8 Multiphasic 97 0.8 Multiphasic SFA Mid 127 1.0 Multiphasic 73 0.7 Multiphasic SFA Dist 114 0.9 Multiphasic 84 1.2 Multiphasic POP Prox 110 1.0 Multiphasic 54 0.6 Multiphasic POP Mid 99 0.9 Multiphasic 58 1.1 Multiphasic POP Dist 105 1.1 Multiphasic YOUTH LIAISON OFFICER Prox 136 1.3 Multiphasic YOUTH LIAISON OFFICER Mid 110 0.8 Multiphasic YOUTH LIAISON OFFICER Dist 117 1.1 Multiphasic Jeannette Prox 84 0.8 Multiphasic Jeannette Mid 96 1.1 Multiphasic Jeannette Dist 105 1.1 Multiphasic KIM Prox 503 4.8 - KIM Mid 93 0.2 Multiphasic KIM Dist 81 0.9 Multiphasic Measurements Name Value Right PSV Right Distal EIA PSV 200 cm/s Right Mid LABELING ASSOCIATE PSV 149 cm/s Right Prox Profunda PSV 141 cm/s Right Prox SFA PSV 115 cm/s Right Mid SFA PSV 97 cm/s Right Distal SFA PSV 73 cm/s Right Prox Pop A PSV 84 cm/s Right Mid Pop A PSV 54 cm/s Right Distal Pop A PSV 58 cm/s Name Value Left PSV Left Distal EIA PSV 187 cm/s Left Mid LABELING ASSOCIATE PSV 163 cm/s Left Prox Profunda PSV 145 cm/s Left Prox SFA PSV 126 cm/s Left Mid SFA PSV 127 cm/s Left Distal SFA PSV 114 cm/s Left Prox Pop A PSV 110 cm/s Left Mid Pop A PSV 99 cm/s Left Distal Pop A PSV 105 cm/s Left Prox KIM PSV 503 cm/s Left Mid KIM PSV 93 cm/s Left Distal KIM PSV 81 cm/s Left Prox Jeannette A PSV 84 cm/s Left Mid Jeannette A PSV 96 cm/s Left Distal Jeannette A PSV 105 cm/s Left Prox YOUTH LIAISON OFFICER PSV 136 cm/s Left Mid YOUTH LIAISON OFFICER PSV 110 cm/s Left Distal YOUTH LIAISON OFFICER PSV 117 cm/s Left ANUP 1.24 Report Signatures Finalized by Fatmata Cosby MD, MS, RPVI on 2021 07 : 36 AM Assessment: Mikayla was seen today for wound check and dressing change. Diagnoses and all orders for this visit: Decubitus ulcer of left heel, stage 4 ([facility]) - Wound care Diabetic ulcer of left foot associated with diabetes mellitus of other type, with other ulcer severity, unspecified part of foot ([facility]) - Wound care Plan: Patient was seen and examined. The wound was fully evaluated and documented in the chart. Refer to procedure documentation for details on debridement. His partial 5th ray site is healed and well coapted. His heel wound is progressing well and debrided to a healthy bleeding granular base. He is to resume the wound vac, continuous 125 mmHg, to be changed 3x per week. There is more granulation tissue today and the calcaneus is no longer exposed. Once there is more granulation tissue to the heel, we will consider collagen or skin graft substitute application. Continue limited WB to the left lowerextremity. I also discussed padding the dorsal foot/anterior ankle to avoid excess pressure and pressure wounds to the area. Dressing: Wound Vac, change 3x per week, 125 mmHg Weightbearing: Ideally NWB to the LLE, however this is difficult due to BKA to the RLE. Ok for limited WB to transfer Follow up: 3 weeks Reviewed signs of infection including edema, erythema, purulent drainage, malodor, nausea, vomiting, fever, and chills. Patient denies any signs of infection today. he is instructed to go to the ED for evaluation if any signs present. Ramana Jaramillo DPM AACFAS documented in this [id number] Instructions* Patient Instructions* Flash Torre RN - 03/19/2022 9:35 AM EDT The following Patient Instructions and Wound Care Orders are current as of this date. All previous orders/treatments should be discontinued. Wound Care Orders: Wound location: Left dorsal foot Clean with soap and water May shower Apply the following primary dressing (OR EQUIVALENT): Xeroform Cover with secondary dressing ABD pad Change every Three times a week May change outer dressing if it becomes soiled or saturated same dressing in clinic today Per Verbal Order Read Back Negative Pressure Wound Therapy Orders: Follow diesel automotive technician's device specific guidelines Wound location: L heel Change dressing and foam THREE times a week Remove drape with adhesive remover Clean wound with Saline Apply Betadine to periwound to reduce maceration Use a skin prep barrier to skin prior to appyling drape. Apply drape to carli wound to the edge of the wound bed. May need to use small strips of vac drape to picture frame the wound Gently place foam in tunnels, undermining or over exposed structures if instructed Cut foam at least 2mm smaller than the wound to avoid touching skin Settings: 125 mmHG continuous suction If suction is not maintained or dressing is compromised for longer than two hours, apply a saline moistened dressing daily and notify your home health agency or [facility] at [phone]. Nurse Visit PRN to provide wound assessment and care per current wound care order for dressing complications with NPWT. Saline moistened gauze dressing today Pad L dorsal foot with ABD prior to applying Spencer Wrap for protection Apply Spencer Wrap(s) to Left lower leg from toes to knee making sure to cover the heel at 50% stretch and overlap (unless otherwise instructed). Apply in the morning and re-wrap as needed during the dayif wrap becomes loose. Remove at bedtime, unless otherwise directed. May hand wash as needed and line dry. TROUBLESHOOTING NEGATIVE PRESSURE WOUND THERAPY ALARMS LOW BATTERY ALARM Charge battery whenever you are home Check to make sure the device is plugged in appropriately Check that cord is plugged into power supply box Check that cord is plugged into the wall If still alarming call device company response center immediately TUBING BLOCKED ALARM Make sure clamps on tubing are completely open Make sure tubing is not kinked Suction pad can be changed by cutting away old one and placing new one over the old area LEAK DETECTED ALARM Examine dressing for area where it may be leaking and reinforce with extra drape Stoma paste or barrier rings may be used to help seal leaks Check the connector where the suction pad and the canister are connected, if leaking, drape or tapemay be wrapped around connector If suction pad is leaking, reinforce or replace CANISTER FULL ALARM Change canister, new canister will just snap in place after old canister removed Keep device upright to prevent drainage from clogging sensors at top of the canister Canisters can be ordered from device company If unable to correct alarm within 2hours, the dressing needs to be changed or removed and use a saline dressing until new a NPWT dressing can be applied High Blood Pressure: If your blood pressure taken today is above 150/95, please contact your primary care physician to get further instructions. If you experience the following emergent symptoms; chest pain, shortness ofbreath, headache, dizziness, vision changes, unusual and/or excessive sweating or nausea vomiting -call 911 or go to the nearest emergency room. Bleeding: If your wound was debrided and continues to bleed after your appointment, apply direct pressure to the wound with a clean cloth or dressing for 10-20 minutes. If the bleeding does not stop, call [facility] [phone] or go to the Emergency Room. Signs/Symptoms of Infection: If you have any fever, chills, nausea, vomiting or increased odor, drainage, pain or redness to thewound, call [facility] at [phone]. If after hours, contact your family physician or go to the Emergency Room. Tips You can do at Home to Help Heal Your Wound Tobacco Use: No smoking or tobacco products because they can slow or even stop wound healing. Diabetic Management: If you are diabetic, check your blood sugar every morning before eating. Keep your fasting blood sugar below 120. Keep regular appointments with your primary physician to monitor your diabetes. Follow your diabetic diet carefully. Skin Care: Use apply moisturizing lotion to dry, intact skin, avoid getting between the toes. Apply skin sealant or barrier to protect the skin from too much moisture. Inspect skin (including feet) daily for redness, blisters, rash, cracks, or open areas. Incontinence Skin Care Quickly cleanse and gently pat dry after every incontinence episode or loose bowel movement to keeparea as clean and dry as possible. Use a barrier cream to protect skin as directed. Edema Control Instructions: Elevate legs above the level of your heart whenever you are sitting. Avoid standing for long periods and do not sit with your legs dangling. Compression Stockings: Apply compression stocking(s) every morning as soon as you get up. Remove atbedtime unless instructed to wear day and night. Hand wash and line dry to prevent loss of elasticity. Replace every 3-4 months to ensure proper fit. Pressure Relief Instructions: Keep weight and pressure off your wound(s) and bony areas of the body (for example, heels, tail bone, hip, elbows, back of head). Reposition as instructed. Shift position in chair every 15 minutes.Turn every 2 hours while lying down. Wear heel guards to keep pressure off heels while in bed or in a chair. Remove while transferring or walking. Specialty Bed: Alternating Air Mattress Wheelchair cushion: Dayna. Use this wherever you are sitting. Diet: Increase the lean protein in your diet. Examples of foods high in protein are lean cuts of meat, fish, dairy foods, peanut butter and eggs. Use protein supplements as directed. Limit your salt/sodium as instructed. Choose fresh fruits, vegetables and lean cuts of meat. Do notadd salt to food during or after cooking. Season food with herbs and spices instead of salt. Avoid salty snacks, fast foods, deli meats and pre-packaged foods. If instructed, limit your fluids to no more than 2 quarts, (64 ounces), of a day. This includes water, juice, coffee, tea, pop, soup, etc. If you are diabetic, check your blood sugar every morning before eating. Keep your fasting blood sugar below 120. Keep regular appointments with your primary physician to monitor your diabetes. Follow your diabetic diet carefully. Protein for Wound Healing You need at least 80-100 grams of protein per day for the body to heal a wound. Be creative and increase protein levels by: Eating the protein items at meal time first. Eat small meals and snacks throughout the day Adding eggs to casseroles, meat loaf, mashed potatoes, macaroni & cheese, salads. Adding cheese to sandwiches, casseroles, potatoes, vegetables, and omelets. Adding peanut butter to toast, bagels, waffles, crackers, bananas, apples, and celery. Adding protein powder to - drinks, pudding, potatoes, soups, ground meats, cooked cereal, milkshakes, yogurt, and pancake batter. Item Portion Size Grams of Protein Most Meats 1 oz 7 Beef Hamburger Vivian 4 oz 28 Steak 6 oz 42 Chicken Breast 3.5 oz 30 Thigh Average 10 Drumstick Average 11 Wing Average 6 Most Other 4 oz cooked 35 Fish Tuna 6 oz can 40 Fish Fillets or Steaks 1oz cooked 6 Pork Chop Average 22 Loin or Tenderloin 4 oz 29 Ham 3 oz 19 Ground 3 oz cooked 22 Mackey 1 slice 3 Taiwanese-style Mackey (Back Mackey) 1 slice 5-6 Eggs and Dairy Egg Large 6 Milk 1 cup 8 Cottage Cheese cup 15 Yogurt 1 cup 8-12 Kyrgyz Yogurt 6 oz 18 Soft Cheeses (Mozzarella, Brie) 1 oz 6 Medium Cheeses(Cheddar,British) 1 oz 7-8 Hard Cheeses (Parmesan) 1 oz 10 Beans / Soy Tofu cup 10 Soy Milk 1 cup 6-10 Soy Beans cup cooked 14 Edamame cup 8-12 Most Beans (black, huang, lentils) cup cooked 7-10 Split Peas cup cooked 8 Nuts and Seeds Peanut Butter 2 Tablespoons 8 Peanuts cup 9 Almonds cup 8 Cashews cup 5 Pecans cup 2.5 Bristol Seeds cup 6 Pumpkin Seeds cup 19 Flax Seeds cup 8 Some Whole Grain Breads 1 slice 4-5 Other Protein Powder 1 scoop 20 documented in this [id number] History of Present illness Narrative* Fatmata Cosby MD - 03/02/2022 4:26 PM EDT Images from the original note were not included. [facility] Vascular Surgery History and Physical Patient Name: Mikayla Pappas Date of : 1960 Date: 03/02/22 Reason for Consultation: Evaluation of foot wound with tibial arterial disease Subjective History of Present Illness: Mikayla Pappas is a 61 y.o. male who is here for relation of his tibial arterial disease. He has a history of a right below-knee amputation and is seen in the hospital for left foot infection and evaluation of his perfusion. He is ultimately undergone a left fifth raymetatarsal amputation approximate 6 weeks ago. On initial exam 6 weeks ago he had a reasonable DP pu lse and duplex did not show any significant disease besides a stenosis in his AT. 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, 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 bobbin presser f/u Past Surgical History: Procedure Laterality Date AMPUTATION FOOT Left 08/05/2020 Procedure: POSSIBLE AMPUTATION; Surgeon: Jet Calvillo DPM; Location: [facility]; Service: Podiatry AMPUTATION TOE(S) Right 08/03/2016 Procedure: RIGHT 3RD DIGIT AMPUTATION ; Surgeon: Jet Calvillo DPM; Location: [facility]; Service: AMPUTATION TOE(S) Left 01/12/2022 Procedure: LEFT FOOT 5TH RAY PARTIAL AMPUTATION; Surgeon: Ramana Jaramillo DPM; Location: [facility] OR; Service: Podiatry CARDIAC CATHETERIZATION ablation for WPW CATHETER INSERTION SUPRAPUBIC N/A 08/16/2020 Procedure: CATHETER PLACEMENT OVER GUIDE; Surgeon: Paul Kim MD; Location: [facility] OR; Service: Urology CYSTO DIRECT VISION INTERNAL URETHROTOMY N/A 08/16/2020 Procedure: CYSTOSCOPY URETERAL DILATION POSSIBLE DIRECT VISION INTERNAL URETHROTOMY; Surgeon: Paul Kim MD; Location: [facility] OR; Service: Urology FOOT SURGERY Right 2nd toe partial amputation INCISION AND DRAINAGE FOOT AND ANKLE Left 07/29/2020 Procedure: LEFT FOOT ULCER INCISION AND DRAINAGE LEFT FOOT BONE DEBRIDEMENT W/ BIOPSY; Surgeon: Jet Calvillo DPM; Location: [facility] OR; Service: Podiatry INCISION AND DRAINAGE FOOT AND ANKLE Left 08/05/2020 Procedure: LEFT FOOT ULCER DEBRIDEMENT; Surgeon: Jet Calvillo DPM; Location: [facility] OR; Service: Podiatry INCISION AND DRAINAGE FOOT AND ANKLE Left 01/12/2022 Procedure: LEFT FOOT INCISION AND DRAINAGE W/ CALCANEOUS BONE BIOPSY; Surgeon: Ramana Jaramillo DPM; Location: [facility] OR; Service: Podiatry Home Medication Instructions Prior to Surgery Accurate as of March 02, 2022 4:26 PM. Always use your most recent med list. Take last dose on Take the morning of surgery Comment(s) acetaminophen 325 MG tablet Take 650 mg by mouth every 6 (six) hours as needed for pain or fever . Commonly known as: TYLENOL alcohol swabs Padm Check your sugars up to 4 times a day . aspirin 81 MG EC tablet Take 81 mg by mouth daily . atorvastatin 80 MG tablet Take 80 mg by mouth daily . Commonly known as: LIPITOR bisacodyL 10 mg/30 mL Enem Insert 10 mg into the rectum once as needed . Commonly known as: FLEET blood sugar diagnostic strips Check your sugars up to 4 times a day . blood-glucose meter Misc Check your sugars up to 4 times a day . cyanocobalamin 500 MCG tablet Take 1 tablet by mouth daily . Commonly known as: B-12 diclofenac sodium 1 % Gel Apply topically 4 (four) times a day . docusate sodium 100 MG capsule Take 100 mg by mouth 2 (two) times a day . Commonly known as: COLACE * DULoxetine 30 mg Cdrs Take 30 mg by mouth at bedtime Along with 60 mg to make 90mg at bedtime . * DULoxetine 60 MG capsule Take 60 mg by mouth at bedtime Along with 30 mg to make 90mg at bedtime . Commonly known as: CYMBALTA ergocalciferol 1,250 mcg (50,000 unit) capsule Take 50,000 Units by mouth once a week . Commonly known as: ERGOCALCIFEROL ferrous sulfate 325 (65 FE) MG tablet Take 1 tablet by mouth daily . * gabapentin 300 MG capsule Take 300 mg by mouth at bedtime . Commonly known as: NEURONTIN * gabapentin 100 MG capsule Take 100 mg by mouth daily . Commonly known as: NEURONTIN glipiZIDE 10 MG 24 hr tablet Take 10 mg by mouth daily . Commonly known as: GLUCOTROL XL guaiFENesin 600 mg 12 hr tablet Take 600 mg by mouth 2 (two) times a day as needed for congestion . Commonly known as: MUCINEX hydrocortisone 1 % cream Apply topically 2 (two) times a day . lancets Misc Check your sugars up to 4 times a day . Girish Jolley U-100 Insulin 100 unit/mL (3 mL) Inpn Generic drug: insulin glargine Inject 22 Units under the skin nightly . lidocaine 5 % patch Place 1 patch on the skin every 12 (twelve) hours Remove & Discard patch within 12 hours or as directed by MD- to back . Commonly known as: LIDODERM loperamide 2 mg tablet Take 2 mg by mouth 4 (four) times a day as needed for diarrhea Max 4 tablets in 24 hours . Commonly known as: IMODIUM A-D magnesium hydroxide 400 mg/5 mL Susp Take 30 mL by mouth daily as needed . Commonly known as: MOM melatonin 5 mg Tab Take 5 mg by mouth at bedtime . NovoLOG U-100 Insulin aspart 100 unit/mL injection Generic drug: insulin aspart U-100 ondansetron 4 MG disintegrating tablet Dissolve 4 mg on top of tongue every 6 (six) hours as needed for nausea . Commonly known as: ZOFRAN-ODT oxybutynin 10 MG 24 hr tablet Take 10 mg by mouth daily . Commonly known as: DITROPAN-XL oxyCODONE-acetaminophen 5-325 mg per tablet Take 1 tablet by mouth every 6 (six) hours as needed for pain . Commonly known as: PERCOCET pen needle, diabetic 32 gauge x 5/32 Ndle Change pen needles daily as needed up to 4 times. . polyethylene glycol 17 gram powder Take 17 g by mouth daily . Commonly known as: MIRALAX sitagliptin 50 MG tablet Take 50 mg by mouth daily . Commonly known as: JANUVIA tiZANidine 2 MG tablet Take 2 mg by mouth 2 (two) times a day . Commonly known as: ZANAFLEX * This list has 4 medication(s) that are the same as other medications prescribed for you. Read thedirections carefully, and ask your doctor or other care provider to review them with you. Allergies Allergen Reactions Dilantin Infatabs [Phenytoin] Rash Social History Socioeconomic History Marital status: Tobacco Use Smoking status: Never Smoker Smokeless tobacco: Never Used Vaping Use Vaping Use: Never used Substance and Sexual Activity Alcohol use: No Drug use: No Family History Problem Relation Age of Onset Diabetes Father Surgical complications Neg Hx Anesthesia problems Neg Hx Heart disease Neg Hx Clotting disorder Neg Hx Deep vein thrombosis Neg Hx Pulmonary embolism Neg Hx No history of bleeding or clotting disorders Vital Signs BP 130/73 (BP Location: Right arm, Patient Position: Sitting, BP Cuff Size: Adult) Pulse 79 Temp 97.6 F (36.4 C) (Infrared) SpO2 100% Physical Examination General: Appropriate, no apparent distress. Psychiatric: affect appropriate Neurologic: face symmetric, no facial droop, no dysarthria. Speech clear, cognition intact. Head/Eyes/Ears/Nose/Throat: Atraumatic, vision and hearing intact. Neck: supple Lungs: clear to auscultation bilaterally, breathing comfortably. Cardiac: Regular rate. Abdomen: soft, nontender Extremities (musculoskeletal and neurologic): warm and well perfused - bilateral upper extremity motorsensory intact; symmetric strength. - bilateral lower extremity motorsensory intact; symmetric strength. Vascular exam: - Right femoral artery: not examined. - Left femoral artery: not examined. - The pedal pulses are not palpable, but there are doppler signals his dressing is limiting me frombeing we will to assess palpable DP pulses he has had in the past Skin/integumentary: Wound VAC in place on the lateral aspect of left foot. Non-invasive vascular studies: Objective Impression: 61-year-old male with healing left foot wound and mild PAD Plan: Set up in 6 weeks for 1 more wound check to make sure he is healing correctly. If this looks okay likely does not need long-term follow-up Fatmata Cosby MD [facility] [address] [place] [address], [address] [place] [address] documented in this [id number] History of Present illness Narrative* Roxanne Marino - 02/28/2022 3:55 PM EDT Called and LVM for PT to call us back to get scheduled for their Sleep studies. documented in this encounterP[facility] [id number] Instructions* Patient Instructions* Flash Torre RN - 02/26/2022 9:39 AM EDT The following Patient Instructions and Wound Care Orders are current as of this date. All previous orders/treatments should be discontinued. Wound Care Orders: Wound location: Left dorsal foot Clean with soap and water May shower Apply the following primary dressing (OR EQUIVALENT): Xeroform Cover with secondary dressing ABD pad Change every Three times a week May change outer dressing if it becomes soiled or saturated same dressing in clinic today Per Verbal Order Read Back Negative Pressure Wound Therapy Orders: Follow diesel automotive technician's device specific guidelines Wound location: L heel Change dressing and foam THREE times a week Remove drape with adhesive remover Clean wound with Saline Apply Betadine to periwound to reduce maceration Use a skin prep barrier to skin prior to appyling drape. Apply drape to carli wound to the edge of the wound bed. May need to use small strips of vac drape to picture frame the wound Gently place foam in tunnels, undermining or over exposed structures if instructed Cut foam at least 2mm smaller than the wound to avoid touching skin Settings: 125 mmHG continuous suction If suction is not maintained or dressing is compromised for longer than two hours, apply a saline moistened dressing daily and notify your home health agency or [facility] at [phone]. Nurse Visit PRN to provide wound assessment and care per current wound care order for dressing complications with NPWT. Saline moistened gauze dressing today Pad L dorsal foot with ABD prior to applying Spnecer Wrap for protection Apply Spencer Wrap(s) to Left lower leg from toes to knee making sure to cover the heel at 50% stretch and overlap (unless otherwise instructed). Apply in the morning and re-wrap as needed during the dayif wrap becomes loose. Remove at bedtime, unless otherwise directed. May hand wash as needed and line dry. TROUBLESHOOTING NEGATIVE PRESSURE WOUND THERAPY ALARMS LOW BATTERY ALARM Charge battery whenever you are home Check to make sure the device is plugged in appropriately Check that cord is plugged into power supply box Check that cord is plugged into the wall If still alarming call device company response center immediately TUBING BLOCKED ALARM Make sure clamps on tubing are completely open Make sure tubing is not kinked Suction pad can be changed by cutting away old one and placing new one over the old area LEAK DETECTED ALARM Examine dressing for area where it may be leaking and reinforce with extra drape Stoma paste or barrier rings may be used to help seal leaks Check the connector where the suction pad and the canister are connected, if leaking, drape or tapemay be wrapped around connector If suction pad is leaking, reinforce or replace CANISTER FULL ALARM Change canister, new canister will just snap in place after old canister removed Keep device upright to prevent drainage from clogging sensors at top of the canister Canisters can be ordered from device company If unable to correct alarm within 2hours, the dressing needs to be changed or removed and use a saline dressing until new a NPWT dressing can be applied High Blood Pressure: If your blood pressure taken today is above 150/95, please contact your primary care physician to get further instructions. If you experience the following emergent symptoms; chest pain, shortness ofbreath, headache, dizziness, vision changes, unusual and/or excessive sweating or nausea vomiting -call 911 or go to the nearest emergency room. Bleeding: If your wound was debrided and continues to bleed after your appointment, apply direct pressure to the wound with a clean cloth or dressing for 10-20 minutes. If the bleeding does not stop, call [facility] [phone] or go to the Emergency Room. Signs/Symptoms of Infection: If you have any fever, chills, nausea, vomiting or increased odor, drainage, pain or redness to thewound, call [facility] at [phone]. If after hours, contact your family physician or go to the Emergency Room. Tips You can do at Home to Help Heal Your Wound Tobacco Use: No smoking or tobacco products because they can slow or even stop wound healing. Diabetic Management: If you are diabetic, check your blood sugar every morning before eating. Keep your fasting blood sugar below 120. Keep regular appointments with your primary physician to monitor your diabetes. Follow your diabetic diet carefully. Skin Care: Use apply moisturizing lotion to dry, intact skin, avoid getting between the toes. Apply skin sealant or barrier to protect the skin from too much moisture. Inspect skin (including feet) daily for redness, blisters, rash, cracks, or open areas. Incontinence Skin Care Quickly cleanse and gently pat dry after every incontinence episode or loose bowel movement to keeparea as clean and dry as possible. Use a barrier cream to protect skin as directed. Edema Control Instructions: Elevate legs above the level of your heart whenever you are sitting. Avoid standing for long periods and do not sit with your legs dangling. Compression Stockings: Apply compression stocking(s) every morning as soon as you get up. Remove atbedtime unless instructed to wear day and night. Hand wash and line dry to prevent loss of elasticity. Replace every 3-4 months to ensure proper fit. Pressure Relief Instructions: Keep weight and pressure off your wound(s) and bony areas of the body (for example, heels, tail bone, hip, elbows, back of head). Reposition as instructed. Shift position in chair every 15 minutes.Turn every 2 hours while lying down. Wear heel guards to keep pressure off heels while in bed or in a chair. Remove while transferring or walking. Specialty Bed: Alternating Air Mattress Wheelchair cushion: Dayna. Use this wherever you are sitting. Diet: Increase the lean protein in your diet. Examples of foods high in protein are lean cuts of meat, fish, dairy foods, peanut butter and eggs. Use protein supplements as directed. Limit your salt/sodium as instructed. Choose fresh fruits, vegetables and lean cuts of meat. Do notadd salt to food during or after cooking. Season food with herbs and spices instead of salt. Avoid salty snacks, fast foods, deli meats and pre-packaged foods. If instructed, limit your fluids to no more than 2 quarts, (64 ounces), of a day. This includes water, juice, coffee, tea, pop, soup, etc. If you are diabetic, check your blood sugar every morning before eating. Keep your fasting blood sugar below 120. Keep regular appointments with your primary physician to monitor your diabetes. Follow your diabetic diet carefully. Protein for Wound Healing You need at least 80-100 grams of protein per day for the body to heal a wound. Be creative and increase protein levels by: Eating the protein items at meal time first. Eat small meals and snacks throughout the day Adding eggs to casseroles, meat loaf, mashed potatoes, macaroni & cheese, salads. Adding cheese to sandwiches, casseroles, potatoes, vegetables, and omelets. Adding peanut butter to toast, bagels, waffles, crackers, bananas, apples, and celery. Adding protein powder to - drinks, pudding, potatoes, soups, ground meats, cooked cereal, milkshakes, yogurt, and pancake batter. Item Portion Size Grams of Protein Most Meats 1 oz 7 Beef Hamburger Vivian 4 oz 28 Steak 6 oz 42 Chicken Breast 3.5 oz 30 Thigh Average 10 Drumstick Average 11 Wing Average 6 Most Other 4 oz cooked 35 Fish Tuna 6 oz can 40 Fish Fillets or Steaks 1oz cooked 6 Pork Chop Average 22 Loin or Tenderloin 4 oz 29 Ham 3 oz 19 Ground 3 oz cooked 22 Mackey 1 slice 3 Taiwanese-style Mackey (Back Mackey) 1 slice 5-6 Eggs and Dairy Egg Large 6 Milk 1 cup 8 Cottage Cheese cup 15 Yogurt 1 cup 8-12 Kyrgyz Yogurt 6 oz 18 Soft Cheeses (Mozzarella, Brie) 1 oz 6 Medium Cheeses(Cheddar,British) 1 oz 7-8 Hard Cheeses (Parmesan) 1 oz 10 Beans / Soy Tofu cup 10 Soy Milk 1 cup 6-10 Soy Beans cup cooked 14 Edamame cup 8-12 Most Beans (black, huang, lentils) cup cooked 7-10 Split Peas cup cooked 8 Nuts and Seeds Peanut Butter 2 Tablespoons 8 Peanuts cup 9 Almonds cup 8 Cashews cup 5 Pecans cup 2.5 Bristol Seeds cup 6 Pumpkin Seeds cup 19 Flax Seeds cup 8 Some Whole Grain Breads 1 slice 4-5 Other Protein Powder 1 scoop 20 documented in this [id number] History of Present illness Narrative* Ramana RaymondMONTSERRAT valdes - 02/26/2022 9:32 AM EDTAssociated Order(s): Wound Debridement Post-Procedure Diagnose(s): Decubitus ulcer of left heel, stage 4 (HCC) Images from the original note were not included. Mikayla Pappas 1960 [id number] Physicians: Greyson Dominguez MD (Family); No ref. provider found (Referring) HPI Mikayla Pappas is a 61 y.o. 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 He reports doing well this morning and presents today in a wheel chair. Partial 5th ray amputation site is healed. Dorsal foot pressure injury is improving with xerform dressing changes. He states that his pain is minimal.He is at a SNF right now and they have been doing the wound vac changes 3x per week. He states thathe hasn't had the wound vac on since Saturday due to the vac having a leak and the nurses have not been able to put one on since. He finished his antibiotic course as prescribed. 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 Denies any systemic symptoms. No other pedal complaints. 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 Past Surgical History: Procedure Laterality Date AMPUTATION FOOT Left 08/05/2020 Procedure: POSSIBLE AMPUTATION; Surgeon: Jet Calvillo DPM; Location: [facility] OR; Service: Podiatry AMPUTATION TOE(S) Right 08/03/2016 Procedure: RIGHT 3RD DIGIT AMPUTATION ; Surgeon: Jet Calvillo DPM; Location: [facility] OR; Service: AMPUTATION TOE(S) Left 01/12/2022 Procedure: LEFT FOOT 5TH RAY PARTIAL AMPUTATION; Surgeon: Ramana Jaramillo DPM; Location: [facility] OR; Service: Podiatry CARDIAC CATHETERIZATION ablation for WPW CATHETER INSERTION SUPRAPUBIC N/A 08/16/2020 Procedure: CATHETER PLACEMENT OVER GUIDE; Surgeon: Paul Kim MD; [facility]; Service: Urology CYSTO DIRECT VISION INTERNAL URETHROTOMY N/A 08/16/2020 Procedure: CYSTOSCOPY URETERAL DILATION POSSIBLE DIRECT VISION INTERNAL URETHROTOMY; Surgeon: Paul Kim MD; [place] [facility] [place] Service: Urology FOOT SURGERY Right 2nd toe partial amputation INCISION AND DRAINAGE FOOT AND ANKLE Left 07/29/2020 Procedure: LEFT FOOT ULCER INCISION AND DRAINAGE LEFT FOOT BONE DEBRIDEMENT W/ BIOPSY; Surgeon: Jet Calvillo DPM; Location: [facility] OR; Service: Podiatry INCISION AND DRAINAGE FOOT AND ANKLE Left 08/05/2020 Procedure: LEFT FOOT ULCER DEBRIDEMENT; Surgeon: Jet Calvillo DPM; Location: [facility] OR; Service: Podiatry INCISION AND DRAINAGE FOOT AND ANKLE Left 01/12/2022 Procedure: LEFT FOOT INCISION AND DRAINAGE W/ CALCANEOUS BONE BIOPSY; Surgeon: Ramana Jaramillo DPM; Location: [facility] OR; Service: Podiatry Social History Socioeconomic History Marital status: Tobacco Use Smoking status: Never Smoker Smokeless tobacco: Never Used Vaping Use Vaping Use: Never used Substance and Sexual Activity Alcohol use: No Drug use: No Family History Problem Relation Age of Onset Diabetes Father Surgical complications Neg Hx Anesthesia problems Neg Hx Heart disease Neg Hx Clotting disorder Neg Hx Deep vein thrombosis Neg Hx Pulmonary embolism Neg Hx Current Outpatient Medications on File Prior to Visit Medication Sig Dispense Refill ferrous sulfate 325 (65 FE) MG tablet Take 1 tablet by mouth daily . oxyCODONE-acetaminophen (PERCOCET) 5-325 mg per tablet Take 1 tablet by mouth every 6 (six) hours as needed for pain . acetaminophen (TYLENOL) 325 MG tablet Take 650 mg by mouth every 6 (six) hours as needed for pain or fever . alcohol swabs PadM Check your sugars up to 4 times a day . 100 each 11 aspirin 81 MG EC tablet Take 81 mg by mouth daily . atorvastatin (LIPITOR) 80 MG tablet Take 80 mg by mouth daily . bisacodyL (FLEET) 10 mg/30 mL Enem Insert 10 mg into the rectum once as needed . blood sugar diagnostic strips Check your sugars up to 4 times a day . 100 each 11 blood-glucose meter Misc Check your sugars up to 4 times a day . 1 each 0 cyanocobalamin (B-12) 500 MCG tablet Take 1 tablet by mouth daily . diclofenac sodium 1 % Gel Apply topically 4 (four) times a day . docusate sodium (COLACE) 100 MG capsule Take 100 mg by mouth 2 (two) times a day . DULoxetine (CYMBALTA) 60 MG capsule Take 60 mg by mouth at bedtime Along with 30 mg to make 90mg atbedtime . DULoxetine 30 mg CDRS Take 30 mg by mouth at bedtime Along with 60 mg to make 90mg at bedtime . ergocalciferol (ERGOCALCIFEROL) 1,250 mcg (50,000 unit) capsule Take 50,000 Units by mouth once a week . gabapentin (NEURONTIN) 100 MG capsule Take 100 mg by mouth daily . gabapentin (NEURONTIN) 300 MG capsule Take 300 mg by mouth at bedtime . glipiZIDE (GLUCOTROL XL) 10 MG 24 hr tablet Take 10 mg by mouth daily . guaiFENesin (MUCINEX) 600 mg 12 hr tablet Take 600 mg by mouth 2 (two) times a day as needed for congestion . hydrocortisone 1 % cream Apply topically 2 (two) times a day . insulin glargine (Lantus Solostar U-100 Insulin) 100 unit/mL (3 mL) InPn Inject 22 Units under the skin nightly . lancets Misc Check your sugars up to 4 times a day . 100 each 11 lidocaine (LIDODERM) 5 % patch Place 1 patch on the skin every 12 (twelve) hours Remove & Discard patch within 12 hours or as directed by MD- to back . loperamide (IMODIUM A-D) 2 mg tablet Take 2 mg by mouth 4 (four) times a day as needed for diarrheaMax 4 tablets in 24 hours . magnesium hydroxide (MOM) 400 mg/5 mL Susp Take 30 mL by mouth daily as needed . melatonin 5 mg Tab Take 5 mg by mouth at bedtime . NovoLOG U-100 Insulin aspart 100 unit/mL injection ondansetron (ZOFRAN-ODT) 4 MG disintegrating tablet Dissolve 4 mg on top of tongue every 6 (six) hours as needed for nausea . oxybutynin (DITROPAN-XL) 10 MG 24 hr tablet Take 10 mg by mouth daily . pen needle, diabetic 32 gauge x 5/32 Ndle Change pen needles daily as needed up to 4 times. . 100 each 11 polyethylene glycol (MIRALAX) 17 gram powder Take 17 g by mouth daily . sitagliptin (JANUVIA) 50 MG tablet Take 50 mg by mouth daily . tiZANidine (ZANAFLEX) 2 MG tablet Take 2 mg by mouth 2 (two) times a day . [DISCONTINUED] ferrous sulfate 325 (65 FE) MG tablet Take 1 (one) tablet (325 mg total) by mouth daily with breakfast Start: 01/18/22. 30 tablet 0 [DISCONTINUED] naloxone (NARCAN) 4 mg/actuation Epes Administer 1 spray into one nostril for known or suspected opioid overdose. If patient worsens or does not respond, may repeat in 2-3 minutes. . 2each 0 Current Facility-Administered Medications on File Prior to Visit Medication Dose Route Frequency Provider Last Rate Last Admin lidocaine (LMX) 4 % cream Topical PRN Boles Shafiek, DPM 1 application at 02/26/22 0937 lidocaine (XYLOCAINE) 4 % (40 mg/mL) external solution Topical PRN Boles Shafiek, DPM Given at 01/29/22 1106 Allergies: Dilantin infatabs [phenytoin] Review of Systems: The following system(s) were reviewed and pertinent findings noted: Constitutional: negative Cardiovascular: negative Integumentary: ulceration Musculoskeletal:positive for muscle weakness Neurological: negative Physical Exam: Vital Signs: BP (!) 148/80 Pulse 76 Temp 98.3 F (36.8 C) (Temporal) Resp 18 Vascular: DP: weakly palpable PT: nonpalpable Musculoskeletal: Muscle strength 4/5. No gross deformities. Skin: Please refer to wound documentation below Wound 01/29/22 1 Pressure Injury Heel Left (Active) Date First Assessed: 01/29/22 Number: 1 Present on Hospital Admission: Yes Wound Approximate Age atFirst Assessment (Weeks): 2 weeks Primary Wound Type: Pressure Injury Location: Heel Wound LocationOrientation: Left Wound Outcome: Not healed Assessments 10/20/2020 2:07 AM 02/26/2022 9:25 AM Wound Image Wound Length (cm) -- 3.5 cm Wound Width (cm) -- 3 cm Wound Depth (cm) -- 1 cm Wound Surface Area (cm^2) -- 10.5 cm^2 Wound Volume (cm^3) -- 10.5 cm^3 Area % Change -- -7.9 Wound Healing % -- 36 Tunneling Maximum Distance (cm) -- 0 cm Tunneling Position (o'clock) -- 0 Tunneling Maximum Distance (cm) -- 0 cm Tunneling Position (o'clock) -- 0 Undermining Maximum Distance (cm) 1 -- 0 cm Undermining Starting Position (o'clock) 1 -- 0 Undermining Ending Position (o'clock) 1 -- 0 Undermining Maximum Distance (cm) 2 -- 0 cm Undermining Starting Position (o'clock) 2 -- 0 Undermining Ending Position (o'clock) 2 -- 0 Wound Progress -- Improving Pressure Injury Stage -- Stage 4 Drainage Amount -- Moderate Drainage Description -- Serosanguineous Odor -- None Wound Margin -- Well defined Adherent Yellow Slough % -- 1-25% Moist Yellow Slough % -- None Dry Black Eschar % -- None Moist Black Eschar % -- None Epithelialization % -- None Granulation % -- 51-75% Exposed Structure -- None Wound Bed Characteristics -- Granulation tissue;Yellow Carli-wound Assessment -- Temperature WNL;Dry Treatments -- Topical anesthetic for procedural pain control per order;Assist with debridement Hemostasis -- Manual pressure Cleansed -- Sterile saline Primary Dressing -- Saline Secondary Dressing -- Gauze pad;Highly absorbent dressing;Gauze roll Compression Dressing Single layer wrap Spencer wrap Active Orders Date Order Priority Status Authorizing Provider 02/26/22 1001 Wound Debridement Routine Active Boles Shalucio, DPM - Release to patient: Immediate Inactive Orders Date Order Priority Status Authorizing Provider 02/12/22 1201 Wound Debridement Routine Completed Boles Shafianthony, DPM - Release to patient: Immediate 01/30/22 0924 Wound Debridement Routine Completed Boles Shalucio DPM - Release to patient: Immediate 01/12/22 1904 Inpatient consult to Enterostomal Therapy Routine Completed Cedric Tan DPM - Reason For Consult?: Negative Pressure Dressing - Wound location(s) or Specific need: L heel 10/20/20 0212 Inpatient consult to Enterostomal Therapy Routine Completed Padmini Hernandez MD - Reason For Consult?: Wound Care - Wound location(s) or Specific need: Top and bottom of left foot Negative Pressure Wound Therapy 01/15/22 Left (Active) Date First Assessed/Time First Assessed: 01/15/22 1559 Location: Heel Wound Location Orientation: Left Assessments 01/15/2022 1:00 PM 01/17/2022 8:51 AM Wound Bed Characteristics -- CRISTA (Unable to assess) Unit Type -- Vac Ulta Cycle -- Continuous;On Target Pressure (mmHg) -- 125 Canister Changed -- No Dressing Status -- Clean;Dry;Intact Drainage Amount -- Scant Drainage Description -- Serosanguineous Output 0 mL -- No Linked orders to display Wound 02/12/22 2 Foot Dorsal (Active) Date First Assessed: 02/12/22 Number: 2 Present on Hospital Admission: No Wound Approximate Age at First Assessment (Weeks): 2 weeks Location: Foot Wound Location Orientation: Dorsal Wound Outcome: Not healed Assessments 02/12/2022 10:22 AM 02/26/2022 9:25 AM Wound Image Wound Length (cm) 1.8 cm 1 cm Wound Width (cm) 1.5 cm 1 cm Wound Depth (cm) 0.1 cm 0.1 cm Wound Surface Area (cm^2) 2.7 cm^2 1 cm^2 Wound Volume (cm^3) 0.27 cm^3 0.1 cm^3 Area % Change 0 -63 Wound Healing % -- 63 Tunneling Maximum Distance (cm) 0 cm 0 cm Tunneling Position (o'clock) 0 0 Tunneling Maximum Distance (cm) 0 cm 0 cm Tunneling Position (o'clock) 0 0 Undermining Maximum Distance (cm) 1 0 cm 0 cm Undermining Starting Position (o'clock) 1 0 0 Undermining Ending Position (o'clock) 1 0 0 Undermining Maximum Distance (cm) 2 0 cm 0 cm Undermining Starting Position (o'clock) 2 0 0 Undermining Ending Position (o'clock) 2 0 0 Wound Progress Initial exam Improving Non-staged Wound Description Full thickness Full thickness Drainage Amount Moderate Scant Drainage Description Serosanguineous Serosanguineous Odor None None Wound Margin Well defined Undefined Adherent Yellow Slough % 26-50% None Moist Yellow Slough % None None Dry Black Eschar % None None Moist Black Eschar % None None Epithelialization % 1-25% 1-25% Granulation % 1-25% 76-100% Exposed Structure None None Wound Bed Characteristics Granulation tissue;Epitheliaization;Brown Granulation tissue;Epitheliaization;Scab Carli-wound Assessment Temperature WNL;Fragile Temperature WNL;Fragile Treatments Topical anesthetic for procedural pain control per order Topical anesthetic for procedural pain control per order Hemostasis Manual pressure Not applicable Cleansed Sodium hypochlorus solution Sterile saline Primary Dressing Impregnated gauze Impregnated gauze Secondary Dressing Highly absorbent dressing;Gauze roll Dry gauze;Gauze roll Compression Dressing Spencer wrap Spencer wrap No Linked orders to display Debridement Wound 01/29/22 1 Pressure Injury Heel Left Consent obtained? verbal Consent given by: patient Risks discussed? procedural risks discussed Performed by: physician Debridement type: surgical Level of debridement: muscle Pain control: lidocaine 4% Pre-debridement measurements Length (cm): 3.5 Width (cm): 3 Depth (cm): 1 Surface Area (cm^2): 10.5 Volume (cm^3): 10.5 Post-debridement measurements Length (cm): 3.6 Width (cm): 3.1 Depth (cm): 1.1 Percent debrided: 100% Surface Area (cm^2): 11.16 Area debrided (cm^2): 11.16 Volume (cm^3): 12.28 Devitalized tissue debrided: biofilm, necrotic debris and slough Instrument(s) utilized: curette Bleeding: medium Hemostasis obtained with: pressure Procedural pain (0-10): insensate Post-procedural pain: insensate Response to treatment: procedure was tolerated well Labs: Lab Results Component Value Date WBC 10.25 01/15/2022 Lab Results Component Value Date SEDRATE 74 (H) 01/09/2022 Lab Results Component Value Date CRP 28.4 (H) 01/09/2022 Imaging: EXAMINATION: MRI OF THE LEFT HINDFOOT WITHOUT CONTRAST; MRI OF THE LEFT FOOT WITHOUT CONTRAST 01/09/2022 TECHNIQUE: Multiplanar, multisequence MRI of the left hindfoot was performed without the administration of intravenous contrast.; Multiplanar, multisequence MRI of the left foot was performed without the administration of intravenous contrast. COMPARISON: 07/26/2020. HISTORY: ORDERING SYSTEM PROVIDED HISTORY: Please include foot and heel. Concern for possible OM at [facility] [place], probes deeply to periosteum. Dry well-adhered eschar to calcaneus with no deep probe. No gross purulence on exam; TECHNOLOGIST PROVIDED HISTORY: Illness/Other Acuity: Unknown Reason for Exam: Diabetic ulcer of left foot associated with diabetes mellitus of other type, with other ulcer severity, unspecified part of foot (HCC) Type of Encounter: Ongoing Additional signs and symptoms: Diabetic ulcer of left foot associated with diabetes mellitus of other type, with other ulcer severity, unspecified part of foot (HCC) ORDERING SYSTEM PROVIDED DIAGNOSIS CODES: E11.628 Diabetic foot infection (HCC) L08.9 Diabetic foot infection (HCC) T14.8XXA Wound infection L08.9 Wound infection; ORDERING SYSTEM PROVIDED HISTORY: Concern for possible OM at [facility] [place], probes deeply to periostum. Dry well-adhered eschar to calcaneus with no deep probe. No gross purulence on exam; FINDINGS: Motion artifact is present. Hindfoot: Plantar heel ulceration is present on the posterior lateral aspect of the heel soft tissues. No surrounding abscess or fluid collection in the heel soft tissues. Adjacent to the ulcer crater, there is focal marrow edema in the plantar aspect of the calcaneus with associated decreased T1 signal extending for a length of approximately 2 x 1.5 cm with a depth ofup to 1 cm concerning for acute osteomyelitis in the plantar calcaneus. Bone marrow signal in the talus, distal tibia and distal fibula is maintained. Bone marrow signal in the cuboid and midfoot bones is maintained. No discrete evidence of tendon tear or tenosynovitis. Superficial soft tissue edema is noted in theankle. Intramuscular edema is present with muscle atrophy involving the plantar musculature of the foot likely representing neuropathy. No evidence of joint effusion. Forefoot: Plantar lateral forefoot ulcer is present adjacent to the 5th MTP joint with surrounding cellulitis. There is edema along the ulcer crater without discrete fluid collection or drainable abscess. Marrow edema is present in the 5th metatarsal head and neck. Marrow edema throughout the proximal phalanx 5th digit. Findings are compatible with acute osteomyelitis given the proximity to the ulcer. Bone marrow signal in the 4th digit and 4th metatarsal is maintained. Increased signal is noted in the distal phalanx of the 1st, 2nd and 3rd digit which is nonspecific.This could be due to inhomogeneous fat suppression and artifact. Hammertoe deformity of the 2nd through 4th digits. The MTP joints are maintained. No joint effusion. Dorsal superficial soft tissue edema in the foot. IMPRESSION: 1. Acute osteomyelitis in the plantar calcaneus adjacent to the ulcer. 2. Acute osteomyelitis in the 5th metatarsal head and neck and proximal 5th phalanx adjacent to theulcer. 3. No soft tissue abscess. 4. Nonspecific increased signal in the distal phalanx of the 1st, 2nd and 3rd digits. This could bedue to artifact. This finding can also be seen with Raynaud's phenomenon or frostbite injury. 5. Intramuscular edema and atrophy in the plantar foot musculature compatible with neuropathy. /[facility] Workstation ID: [id number] Vascular Studies: Procedure Description 16315 Duplex scan of lower extremity arteries or arterial bypass grafts using B- mode, color and spectral Doppler; complete bilateral study. Indications Code Description Weakly palpable DP, non palpable PT. Dry eschar to heel Conclusions Right. No evidence of hemodynamically significant stenosis of the right lower extremity. Right below knee amputation. Left. A significant stenosis (50-99%) is noted in the left proximal anterior tibial artery (ratio 4.8) . Left ANUP: 1.24 Measurements Right Left PSV Ratio Waveform PSV Ratio Waveforms 200 Multiphasic Iliac 187 Multiphasic 149 0.7 Multiphasic LABELING ASSOCIATE 163 0.9 Multiphasic 141 0.9 Multiphasic PFA 145 0.9 Multiphasic 115 0.8 Multiphasic SFA Prox 126 0.8 Multiphasic 97 0.8 Multiphasic SFA Mid 127 1.0 Multiphasic 73 0.7 Multiphasic SFA Dist 114 0.9 Multiphasic 84 1.2 Multiphasic POP Prox 110 1.0 Multiphasic 54 0.6 Multiphasic POP Mid 99 0.9 Multiphasic 58 1.1 Multiphasic POP Dist 105 1.1 Multiphasic YOUTH LIAISON OFFICER Prox 136 1.3 Multiphasic YOUTH LIAISON OFFICER Mid 110 0.8 Multiphasic YOUTH LIAISON OFFICER Dist 117 1.1 Multiphasic Jeannette Prox 84 0.8 Multiphasic Jeannette Mid 96 1.1 Multiphasic Jeannette Dist 105 1.1 Multiphasic KIM Prox 503 4.8 - KIM Mid 93 0.2 Multiphasic KIM Dist 81 0.9 Multiphasic Measurements Name Value Right PSV Right Distal EIA PSV 200 cm/s Right Mid LABELING ASSOCIATE PSV 149 cm/s Right Prox Profunda PSV 141 cm/s Right Prox SFA PSV 115 cm/s Right Mid SFA PSV 97 cm/s Right Distal SFA PSV 73 cm/s Right Prox Pop A PSV 84 cm/s Right Mid Pop A PSV 54 cm/s Right Distal Pop A PSV 58 cm/s Name Value Left PSV Left Distal EIA PSV 187 cm/s Left Mid LABELING ASSOCIATE PSV 163 cm/s Left Prox Profunda PSV 145 cm/s Left Prox SFA PSV 126 cm/s Left Mid SFA PSV 127 cm/s Left Distal SFA PSV 114 cm/s Left Prox Pop A PSV 110 cm/s Left Mid Pop A PSV 99 cm/s Left Distal Pop A PSV 105 cm/s Left Prox KIM PSV 503 cm/s Left Mid KIM PSV 93 cm/s Left Distal KIM PSV 81 cm/s Left Prox Jeannette A PSV 84 cm/s Left Mid Jeannette A PSV 96 cm/s Left Distal Jeannette A PSV 105 cm/s Left Prox YOUTH LIAISON OFFICER PSV 136 cm/s Left Mid YOUTH LIAISON OFFICER PSV 110 cm/s Left Distal YOUTH LIAISON OFFICER PSV 117 cm/s Left ANUP 1.24 Report Signatures Finalized by Fatmata Cosby MD, MS, RPVI on 2021 07 : 36 AM Assessment: Mikayla was seen today for wound check and dressing change. Diagnoses and all orders for this visit: Decubitus ulcer of left heel, stage 4 ([facility]) - Wound care Diabetic ulcer of left foot associated with diabetes mellitus of other type, with other ulcer severity, unspecified part of foot (HCC) - Wound care Other orders - Wound Debridement Plan: Patient was seen and examined. The wound was fully evaluated and documented in the chart. Refer to procedure documentation for details on debridement. His partial 5th ray site is healed and well coapted. His heel wound is progressing well, however there is necrotic debris and slough noted to the base of the wound which was debrided to a healthy bleeding granular base. He is to resume the wound vac, continuous 125 mmHg, to be changed 3x per week. There is more granulation tissue today and the calcaneus is no longer exposed. Once there is more granulation tissue to the heel, we will consider collagen or skin graft substitute application. Continue limited WB to the left lower extremity. I also discussed padding the dorsal foot/anterior ankle to avoid excess pressure and pressure wounds to the area. Dressing: Wound Vac, change 3x per week, 125 mmHg Weightbearing: Ideally NWB to the LLE, however this is difficult due to BKA to the RLE. Ok for limited WB to transfer Follow up: 2 weeks Reviewed signs of infection including edema, erythema, purulent drainage, malodor, nausea, vomiting, fever, and chills. Patient denies any signs of infection today. he is instructed to go to the ED for evaluation if any signs present. Ramana Jaramillo DPM AACFAS documented in this [id number] History of Present illness Narrative* Lamin Stringer MD - 02/21/2022 1:15 PM EDT Subjective Patient ID: Mikayla Pappas is a 61 y.o. male. Chief Complaint Patient presents with Sleep Apnea RN TRAUMA LORENA- Mikayla Pappas was seen in the sleep office today in consultation from Dr. Greyson Dominguez regarding evaluation of sleep-related breathing disturbances. His sleep questionnaire and [place] Sleepiness Scale was reviewed and the interview conducted in conjunction with it. He was originally diagnosed because of snoring and excessive daytime sleepiness more than 15 years ago at [facility] sleep medicine. He underwent 2 nights of study and was prescribed a CPAP. He got frustrated with using it and ultimately gave up. At that time it appears he was seen by Dr. Rafi zhous. He has had no CPAP for more than 10 years at [facility]. He currently lives in a long-term facility in [facility]. He comes back for reevaluation. He has had longstanding snoring, not sure about loudness. His snoring is stated to be worse on his back. He has woken himself up with his own snoring as he has with a dry mouth but usually not with choking/gasping sensation, sore throat, or morning headaches. There are reports of witnessed apneas per rehab aides. He normally goes to bed around 11:00 PM, and wakes up around 7:00 AM, keeping the same clock time over the weekend. He awakens unrefreshed. He is a restless sleeper, tosses and turns in bed and has one awakenings during the night from which he is able to fall back to sleep easily. During his awake time if he sits in a quiet place he will fall asleep, as he could while watching TV. He does not drive anymore. His short-term memory is declining, he concentrates fair and is definitely easily irritated. He hasno symptoms related to restless leg syndrome, sleep paralysis, hypnagogic hallucinations, cataplexyor parasomnia. He is not on any wakefulness drugs or stimulants. No known motor vehicle accident ornear miss reported because of sleepiness. ESS 18. The following portions of the patient's chart were reviewed in this encounter and updated as appropriate: Tobacco Allergies Meds Problems Med Hx Surg Hx Fam Hx Soc Hx Review of Systems Constitutional: Negative for appetite change and unexpected weight change (10 years lost 87 ibs, put 15 back on in the last 2 months). HENT: Positive for congestion. Negative for hearing loss, nosebleeds, postnasal drip, sore throat and trouble swallowing. Eyes: Negative for visual disturbance (wears glasses). Respiratory: Positive for apnea. Negative for cough, chest tightness, shortness of breath and wheezing. Cardiovascular: Positive for leg swelling (left sweliing). Negative for chest pain and palpitations. Gastrointestinal: Negative for abdominal pain, constipation, diarrhea and nausea. Endocrine: Negative for polyuria (DM, Hypothyroid). Genitourinary: Positive for difficulty urinating (has indwelling catheter), dysuria and hematuria. Musculoskeletal: Positive for gait problem. Negative for arthralgias and back pain. Skin: Negative for rash. Allergic/Immunologic: Negative for environmental allergies and food allergies. Neurological: Positive for seizures, weakness and numbness. Negative for headaches. Hematological: Negative for adenopathy. Does not bruise/bleed easily. Psychiatric/Behavioral: Positive for behavioral problems (depression), decreased concentration and sleep disturbance. Negative for agitation and confusion. The patient is not hyperactive. Objective Physical Exam Constitutional: General: He is not in acute distress. HENT: Head: Normocephalic and atraumatic. Nose: Nose normal. No congestion. Mouth/Throat: Mouth: Mucous membranes are moist. Pharynx: No oropharyngeal exudate (fleshy uvula, high base tongue, Mallampati 3 airway). Eyes: General: No scleral icterus. Extraocular Movements: Extraocular movements intact. Conjunctiva/sclera: Conjunctivae normal. Pupils: Pupils are equal, round, and reactive to light. Neck: Vascular: No carotid bruit. Cardiovascular: Rate and Rhythm: Normal rate and regular rhythm. Heart sounds: Normal heart sounds. No murmur heard. Pulmonary: Effort: No respiratory distress. Breath sounds: No stridor. No wheezing or rhonchi. Chest: Chest wall: No tenderness. Abdominal: General: There is no distension. Palpations: There is no mass. Musculoskeletal: General: Deformity (RAKA) present. Cervical back: Neck supple. No rigidity or tenderness. Skin: General: Skin is warm. Coloration: Skin is not jaundiced or pale. Findings: No erythema or rash. Neurological: General: No focal deficit present. Mental Status: He is alert and oriented to person, place, and time. Cranial Nerves: No cranial nerve deficit. Motor: No weakness. Gait: Gait abnormal (in wheel chair). Psychiatric: Mood and Affect: Mood normal. Behavior: Behavior normal. Thought Content: Thought content normal. Judgment: Judgment normal. Assessment/Plan Sleep apnea, unspecified type (Primary) - Polysomnography; Future - Polysomnography with PAP; Future - [id number], qualitative RT-PCR; Future - [id number], qualitative RT-PCR; Future PLAN: Sleep apnea, unspecified 1.Mikayla Pappas should return to the sleep lab for nocturnal polysomnography with provision for a second night for positive pressure initiation should LORENA be confirmed. Criteria for a split night study was reviewed as well. He will be 1: 1 during the night in the sleep lab 2. Implications, hazards of untreated sleep apnea, and treatment options including use of positive pressure, oral appliance therapy and various surgical modalities discussed with him in detail. He understands that use of positive pressure therapy and an oral appliance does not offer a cure. 3. He was cautioned regarding the use of alcohol and sedatives as it may worsen his underlying sleep apnea. 4. He was also cautioned regarding the operation of motor vehicles and motorized equipment until diagnostic testing is completed, treatment instituted and symptoms jarret. 5. He was given the educational material regarding sleep apnea, EDS and sleep hygiene and would be seen in the office once testing is completed. Hypersomnia Snoring Essential hypertension 1. Interplay between LORENA and Hypertension was discussed with patient. Depression Diabetes mellitus type 2 Peripheral vascular disease, s/p right AKA History of CVA Depression Overweight 1.Patient was counseled regarding weight loss, regular exercise and diet. Discussed the role of obesity in LORENA, and the role of weight loss in helping to reduce obstructions and decrease pressure requirements in treatment of LORENA. documented in this encounterP[facility] [id number] Instructions* Patient Instructions* Alexus Mayo RN - 02/12/2022 10:39 AM EDT The following Patient Instructions and Wound Care Orders are current as of this date. All previous orders/treatments should be discontinued. Wound Care Orders: Wound location: Left dorsal foot Clean with soap and water May shower Apply the following primary dressing (OR EQUIVALENT): Xeroform Cover with secondary dressing ABD pad Change every Three times a week May change outer dressing if it becomes soiled or saturated same dressing in clinic today Per Verbal Order Read Back Negative Pressure Wound Therapy Orders: Follow diesel automotive technician's device specific guidelines Wound location: L heel Change dressing and foam THREE times a week Remove drape with adhesive remover Clean wound with Saline Apply Betadine to periwound to reduce maceration Use a skin prep barrier to skin prior to appyling drape. Apply drape to carli wound to the edge of the wound bed. May need to use small strips of vac drape to picture frame the wound Gently place foam in tunnels, undermining or over exposed structures if instructed Cut foam at least 2mm smaller than the wound to avoid touching skin Settings: 125 mmHG continuous suction If suction is not maintained or dressing is compromised for longer than two hours, apply a saline moistened dressing daily and notify your home health agency or [facility] at [phone]. Nurse Visit PRN to provide wound assessment and care per current wound care order for dressing complications with NPWT. Saline moistened gauze dressing today Pad L dorsal foot with ABD prior to applying Spencer Wrap for protection Apply Spencer Wrap(s) to Left lower leg from toes to knee making sure to cover the heel at 50% stretch and overlap (unless otherwise instructed). Apply in the morning and re-wrap as needed during the dayif wrap becomes loose. Remove at bedtime, unless otherwise directed. May hand wash as needed and line dry. TROUBLESHOOTING NEGATIVE PRESSURE WOUND THERAPY ALARMS LOW BATTERY ALARM Charge battery whenever you are home Check to make sure the device is plugged in appropriately Check that cord is plugged into power supply box Check that cord is plugged into the wall If still alarming call device company response center immediately TUBING BLOCKED ALARM Make sure clamps on tubing are completely open Make sure tubing is not kinked Suction pad can be changed by cutting away old one and placing new one over the old area LEAK DETECTED ALARM Examine dressing for area where it may be leaking and reinforce with extra drape Stoma paste or barrier rings may be used to help seal leaks Check the connector where the suction pad and the canister are connected, if leaking, drape or tapemay be wrapped around connector If suction pad is leaking, reinforce or replace CANISTER FULL ALARM Change canister, new canister will just snap in place after old canister removed Keep device upright to prevent drainage from clogging sensors at top of the canister Canisters can be ordered from device company If unable to correct alarm within 2hours, the dressing needs to be changed or removed and use a saline dressing until new a NPWT dressing can be applied High Blood Pressure: If your blood pressure taken today is above 150/95, please contact your primary care physician to get further instructions. If you experience the following emergent symptoms; chest pain, shortness ofbreath, headache, dizziness, vision changes, unusual and/or excessive sweating or nausea vomiting -call 911 or go to the nearest emergency room. Bleeding: If your wound was debrided and continues to bleed after your appointment, apply direct pressure to the wound with a clean cloth or dressing for 10-20 minutes. If the bleeding does not stop, call [facility] [phone] or go to the Emergency Room. Signs/Symptoms of Infection: If you have any fever, chills, nausea, vomiting or increased odor, drainage, pain or redness to thewound, call [facility] at [phone]. If after hours, contact your family physician or go to the Emergency Room. Tips You can do at Home to Help Heal Your Wound Tobacco Use: No smoking or tobacco products because they can slow or even stop wound healing. Diabetic Management: If you are diabetic, check your blood sugar every morning before eating. Keep your fasting blood sugar below 120. Keep regular appointments with your primary physician to monitor your diabetes. Follow your diabetic diet carefully. Skin Care: Use apply moisturizing lotion to dry, intact skin, avoid getting between the toes. Apply skin sealant or barrier to protect the skin from too much moisture. Inspect skin (including feet) daily for redness, blisters, rash, cracks, or open areas. Incontinence Skin Care Quickly cleanse and gently pat dry after every incontinence episode or loose bowel movement to keeparea as clean and dry as possible. Use a barrier cream to protect skin as directed. Edema Control Instructions: Elevate legs above the level of your heart whenever you are sitting. Avoid standing for long periods and do not sit with your legs dangling. Compression Stockings: Apply compression stocking(s) every morning as soon as you get up. Remove atbedtime unless instructed to wear day and night. Hand wash and line dry to prevent loss of elasticity. Replace every 3-4 months to ensure proper fit. Pressure Relief Instructions: Keep weight and pressure off your wound(s) and bony areas of the body (for example, heels, tail bone, hip, elbows, back of head). Reposition as instructed. Shift position in chair every 15 minutes.Turn every 2 hours while lying down. Wear heel guards to keep pressure off heels while in bed or in a chair. Remove while transferring or walking. Specialty Bed: Alternating Air Mattress Wheelchair cushion: Dayna. Use this wherever you are sitting. Diet: Increase the lean protein in your diet. Examples of foods high in protein are lean cuts of meat, fish, dairy foods, peanut butter and eggs. Use protein supplements as directed. Limit your salt/sodium as instructed. Choose fresh fruits, vegetables and lean cuts of meat. Do notadd salt to food during or after cooking. Season food with herbs and spices instead of salt. Avoid salty snacks, fast foods, deli meats and pre-packaged foods. If instructed, limit your fluids to no more than 2 quarts, (64 ounces), of a day. This includes water, juice, coffee, tea, pop, soup, etc. If you are diabetic, check your blood sugar every morning before eating. Keep your fasting blood sugar below 120. Keep regular appointments with your primary physician to monitor your diabetes. Follow your diabetic diet carefully. Protein for Wound Healing You need at least 80-100 grams of protein per day for the body to heal a wound. Be creative and increase protein levels by: Eating the protein items at meal time first. Eat small meals and snacks throughout the day Adding eggs to casseroles, meat loaf, mashed potatoes, macaroni & cheese, salads. Adding cheese to sandwiches, casseroles, potatoes, vegetables, and omelets. Adding peanut butter to toast, bagels, waffles, crackers, bananas, apples, and celery. Adding protein powder to - drinks, pudding, potatoes, soups, ground meats, cooked cereal, milkshakes, yogurt, and pancake batter. Item Portion Size Grams of Protein Most Meats 1 oz 7 Beef Hamburger Vivian 4 oz 28 Steak 6 oz 42 Chicken Breast 3.5 oz 30 Thigh Average 10 Drumstick Average 11 Wing Average 6 Most Other 4 oz cooked 35 Fish Tuna 6 oz can 40 Fish Fillets or Steaks 1oz cooked 6 Pork Chop Average 22 Loin or Tenderloin 4 oz 29 Ham 3 oz 19 Ground 3 oz cooked 22 Mackey 1 slice 3 Taiwanese-style Mackey (Back Mackey) 1 slice 5-6 Eggs and Dairy Egg Large 6 Milk 1 cup 8 Cottage Cheese cup 15 Yogurt 1 cup 8-12 Kyrgyz Yogurt 6 oz 18 Soft Cheeses (Mozzarella, Brie) 1 oz 6 Medium Cheeses(Cheddar,British) 1 oz 7-8 Hard Cheeses (Parmesan) 1 oz 10 Beans / Soy Tofu cup 10 Soy Milk 1 cup 6-10 Soy Beans cup cooked 14 Edamame cup 8-12 Most Beans (black, huang, lentils) cup cooked 7-10 Split Peas cup cooked 8 Nuts and Seeds Peanut Butter 2 Tablespoons 8 Peanuts cup 9 Almonds cup 8 Cashews cup 5 Pecans cup 2.5 Bristol Seeds cup 6 Pumpkin Seeds cup 19 Flax Seeds cup 8 Some Whole Grain Breads 1 slice 4-5 Other Protein Powder 1 scoop 20 documented in this [id number] History of Present illness Narrative* Ramana Jaramillo DPM - 02/12/2022 10:20 AM EDTAssociated Order(s): Wound Debridement Images from the original note were not included. Mikayla Pappas 1960 [id number] Physicians: Greyson Dominguez MD (Family); No ref. provider found (Referring) HPI Mikayla Pappas is a 61 y.o. 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 He reports doing well this morning and presents today in a wheel chair and wound vac in place to the left heel. He states that his pain is minimal. He is at a SNF right now and they have been doing the wound vac changes 3xper week. He finished his antibiotic course as prescribed. He has a new pressure wound to the dorsal foot and anterior ankle from his dressing being too tight. 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 Denies any systemic symptoms. No other pedal complaints. 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 Past Surgical History: Procedure Laterality Date AMPUTATION FOOT Left 08/05/2020 Procedure: POSSIBLE AMPUTATION; Surgeon: Jet Calvillo DPM; Location: [facility] OR; Service: Podiatry AMPUTATION TOE(S) Right 08/03/2016 Procedure: RIGHT 3RD DIGIT AMPUTATION ; Surgeon: Jet Calvillo DPM; Location: [facility] OR; Service: AMPUTATION TOE(S) Left 01/12/2022 Procedure: LEFT FOOT 5TH RAY PARTIAL AMPUTATION; Surgeon: Ramana Jaramillo DPM; Location: [facility] OR; Service: Podiatry CARDIAC CATHETERIZATION ablation for WPW CATHETER INSERTION SUPRAPUBIC N/A 08/16/2020 Procedure: CATHETER PLACEMENT OVER GUIDE; Surgeon: Paul Kim MD; [facility]; Service: Urology CYSTO DIRECT VISION INTERNAL URETHROTOMY N/A 08/16/2020 Procedure: CYSTOSCOPY URETERAL DILATION POSSIBLE DIRECT VISION INTERNAL URETHROTOMY; Surgeon: Paul Kim MD; [place] [facility]; Service: Urology FOOT SURGERY Right 2nd toe partial amputation INCISION AND DRAINAGE FOOT AND ANKLE Left 07/29/2020 Procedure: LEFT FOOT ULCER INCISION AND DRAINAGE LEFT FOOT BONE DEBRIDEMENT W/ BIOPSY; Surgeon: Jet Calvillo DPM; Location: [facility] OR; Service: Podiatry INCISION AND DRAINAGE FOOT AND ANKLE Left 08/05/2020 Procedure: LEFT FOOT ULCER DEBRIDEMENT; Surgeon: Jet Calvillo DPM; Location: [facility] OR; Service: Podiatry INCISION AND DRAINAGE FOOT AND ANKLE Left 01/12/2022 Procedure: LEFT FOOT INCISION AND DRAINAGE W/ CALCANEOUS BONE BIOPSY; Surgeon: Ramana Jaramillo DPM; Location: [facility] OR; Service: Podiatry Social History Socioeconomic History Marital status: Tobacco Use Smoking status: Never Smoker Smokeless tobacco: Never Used Vaping Use Vaping Use: Never used Substance and Sexual Activity Alcohol use: No Drug use: No Family History Problem Relation Age of Onset Diabetes Father Surgical complications Neg Hx Anesthesia problems Neg Hx Heart disease Neg Hx Clotting disorder Neg Hx Deep vein thrombosis Neg Hx Pulmonary embolism Neg Hx Current Outpatient Medications on File Prior to Visit Medication Sig Dispense Refill alcohol swabs PadM Check your sugars up to 4 times a day . 100 each 11 aspirin 81 MG EC tablet Take 81 mg by mouth daily . atorvastatin (LIPITOR) 80 MG tablet Take 80 mg by mouth daily . bisacodyL (FLEET) 10 mg/30 mL Enem Insert 10 mg into the rectum once as needed . blood sugar diagnostic strips Check your sugars up to 4 times a day . 100 each 11 blood-glucose meter Misc Check your sugars up to 4 times a day . 1 each 0 cyanocobalamin (B-12) 500 MCG tablet Take 1 tablet by mouth daily . diclofenac sodium 1 % Gel Apply topically 4 (four) times a day . docusate sodium (COLACE) 100 MG capsule Take 100 mg by mouth 2 (two) times a day . DULoxetine (CYMBALTA) 60 MG capsule Take 60 mg by mouth at bedtime Along with 30 mg to make 90mg atbedtime . DULoxetine 30 mg CDRS Take 30 mg by mouth at bedtime Along with 60 mg to make 90mg at bedtime . ergocalciferol (ERGOCALCIFEROL) 1,250 mcg (50,000 unit) capsule Take 50,000 Units by mouth once a week . ferrous sulfate 325 (65 FE) MG tablet Take 1 (one) tablet (325 mg total) by mouth daily with breakfast Start: 01/18/22. 30 tablet 0 gabapentin (NEURONTIN) 100 MG capsule Take 100 mg by mouth daily . gabapentin (NEURONTIN) 300 MG capsule Take 300 mg by mouth at bedtime . glipiZIDE (GLUCOTROL XL) 10 MG 24 hr tablet Take 10 mg by mouth daily . guaiFENesin (MUCINEX) 600 mg 12 hr tablet Take 600 mg by mouth 2 (two) times a day as needed for congestion . hydrocortisone 1 % cream Apply topically 2 (two) times a day . insulin glargine (Lantus Solostar U-100 Insulin) 100 unit/mL (3 mL) InPn Inject 22 Units under the skin nightly . lancets [facility] Check your sugars up to 4 times a day . 100 each 11 lidocaine (LIDODERM) 5 % patch Place 1 patch on the skin every 12 (twelve) hours Remove & Discard patch within 12 hours or as directed by MD- to back . loperamide (IMODIUM A-D) 2 mg tablet Take 2 mg by mouth 4 (four) times a day as needed for diarrheaMax 4 tablets in 24 hours . magnesium hydroxide (MOM) 400 mg/5 mL Susp Take 30 mL by mouth daily as needed . melatonin 5 mg Tab Take 5 mg by mouth at bedtime . naloxone (NARCAN) 4 mg/actuation Epes Administer 1 spray into one nostril for known or suspected opioid overdose. If patient worsens or does not respond, may repeat in 2-3 minutes. . 2 each 0 ondansetron (ZOFRAN-ODT) 4 MG disintegrating tablet Dissolve 4 mg on top of tongue every 6 (six) hours as needed for nausea . oxybutynin (DITROPAN-XL) 10 MG 24 hr tablet Take 10 mg by mouth daily . pen needle, diabetic 32 gauge x 32 Ndle Change pen needles daily as needed up to 4 times. . 100 each 11 polyethylene glycol (MIRALAX) 17 gram powder Take 17 g by mouth daily . sitagliptin (JANUVIA) 50 MG tablet Take 50 mg by mouth daily . tiZANidine (ZANAFLEX) 2 MG tablet Take 2 mg by mouth 2 (two) times a day . Current Facility-Administered Medications on File Prior to Visit Medication Dose Route Frequency Provider Last Rate Last Admin lidocaine (XYLOCAINE) 4 % (40 mg/mL) external solution Topical PRN Ramana Jaramillo DPM Given at 01/29/22 1106 Allergies: Dilantin infatabs [phenytoin] Review of Systems: The following system(s) were reviewed and pertinent findings noted: Constitutional: negative Cardiovascular: negative Integumentary: ulceration Musculoskeletal:positive for muscle weakness Neurological: negative Physical Exam: Vital Signs: BP 123/77 Pulse 65 Temp 97.7 F (36.5 C) (Temporal) Resp 17 SpO2 100% Vascular: DP: weakly palpable PT: nonpalpable Musculoskeletal: Muscle strength 4/5. No gross deformities. Skin: Please refer to wound documentation below Wound 01/29/22 1 Pressure Injury Heel Left (Active) Date First Assessed: 01/29/22 Number: 1 Present on Hospital Admission: Yes Wound Approximate Age atFirst Assessment (Weeks): 2 weeks Primary Wound Type: Pressure Injury Location: Heel Wound LocationOrientation: Left Wound Outcome: Not healed Assessments 10/20/2020 2:07 AM 02/12/2022 10:22 AM Wound Image Wound Length (cm) -- 3.8 cm Wound Width (cm) -- 3 cm Wound Depth (cm) -- 1 cm Wound Surface Area (cm^2) -- 11.4 cm^2 Wound Volume (cm^3) -- 11.4 cm^3 Area % Change -- -17.2 Wound Healing % -- 31 Tunneling Maximum Distance (cm) -- 0 cm Tunneling Position (o'clock) -- 0 Tunneling Maximum Distance (cm) -- 0 cm Tunneling Position (o'clock) -- 0 Undermining Maximum Distance (cm) 1 -- 0 cm Undermining Starting Position (o'clock) 1 -- 0 Undermining Ending Position (o'clock) 1 -- 0 Undermining Maximum Distance (cm) 2 -- 0 cm Undermining Starting Position (o'clock) 2 -- 0 Undermining Ending Position (o'clock) 2 -- 0 Wound Progress -- Improving Pressure Injury Stage -- Stage 4 Drainage Amount -- Moderate Drainage Description -- Serosanguineous Odor -- None Wound Margin -- Well defined Adherent Yellow Slough % -- 26-50% Moist Yellow Slough % -- None Dry Black Eschar % -- None Moist Black Eschar % -- None Epithelialization % -- None Granulation % -- 51-75% Exposed Structure -- None Wound Bed Characteristics -- Granulation tissue;Yellow Carli-wound Assessment -- Moist Treatments -- Topical anesthetic for procedural pain control per order;Assist with debridement Hemostasis -- Manual pressure Cleansed -- Sodium hypochlorus solution Primary Dressing -- Other (Comment) Secondary Dressing -- Gauze pad;Highly absorbent dressing;Gauze roll Compression Dressing Single layer wrap Spencer wrap Active Orders Date Order Priority Status Authorizing Provider 02/12/22 1201 Wound Debridement Routine Active Boles Shafiek, DPM - Release to patient: Immediate Inactive Orders Date Order Priority Status Authorizing Provider 01/30/22 0924 Wound Debridement Routine Completed Boles Shafiek, DPM - Release to patient: Immediate 01/12/22 1904 Inpatient consult to Enterostomal Therapy Routine Completed Cedric Tan DPM - Reason For Consult?: Negative Pressure Dressing - Wound location(s) or Specific need: L heel 10/20/20 0212 Inpatient consult to Enterostomal Therapy Routine Completed Padmini Hernandez MD - Reason For Consult?: Wound Care - Wound location(s) or Specific need: Top and bottom of left foot Negative Pressure Wound Therapy 01/15/22 Left (Active) Date First Assessed/Time First Assessed: 01/15/22 1559 Location: Heel Wound Location Orientation: Left Assessments 01/15/2022 1:00 PM 01/17/2022 8:51 AM Wound Bed Characteristics -- CRISTA (Unable to assess) Unit Type -- Vac Ulta Cycle -- Continuous;On Target Pressure (mmHg) -- 125 Canister Changed -- No Dressing Status -- Clean;Dry;Intact Drainage Amount -- Scant Drainage Description -- Serosanguineous Output 0 mL -- No Linked orders to display Wound 02/12/22 2 Foot Dorsal (Active) Date First Assessed: 02/12/22 Number: 2 Present on Hospital Admission: No Wound Approximate Age at First Assessment (Weeks): 2 weeks Location: Foot Wound Location Orientation: Dorsal Wound Outcome: Not healed Assessments 02/12/2022 10:22 AM Wound Image Wound Length (cm) 1.8 cm Wound Width (cm) 1.5 cm Wound Depth (cm) 0.1 cm Wound Surface Area (cm^2) 2.7 cm^2 Wound Volume (cm^3) 0.27 cm^3 Area % Change 0 Tunneling Maximum Distance (cm) 0 cm Tunneling Position (o'clock) 0 Tunneling Maximum Distance (cm) 0 cm Tunneling Position (o'clock) 0 Undermining Maximum Distance (cm) 1 0 cm Undermining Starting Position (o'clock) 1 0 Undermining Ending Position (o'clock) 1 0 Undermining Maximum Distance (cm) 2 0 cm Undermining Starting Position (o'clock) 2 0 Undermining Ending Position (o'clock) 2 0 Wound Progress Initial exam Non-staged Wound Description Full thickness Drainage Amount Moderate Drainage Description Serosanguineous Odor None Wound Margin Well defined Adherent Yellow Slough % 26-50% Moist Yellow Slough % None Dry Black Eschar % None Moist Black Eschar % None Epithelialization % 1-25% Granulation % 1-25% Exposed Structure None Wound Bed Characteristics Granulation tissue;Epitheliaization;Brown Carli-wound Assessment Temperature WNL;Fragile Treatments Topical anesthetic for procedural pain control per order Hemostasis Manual pressure Cleansed Sodium hypochlorus solution Primary Dressing Impregnated gauze Secondary Dressing Highly absorbent dressing;Gauze roll Compression Dressing Spencer wrap No Linked orders to display Debridement Wound 01/29/22 1 Pressure Injury Heel Left Consent obtained? verbal Consent given by: patient Risks discussed? procedural risks discussed Immediately prior to the procedure a time out was called Performed by: physician Debridement type: surgical Level of debridement: subcutaneous tissue Pain control: lidocaine 4% Pre-debridement measurements Length (cm): 3.8 Width (cm): 3 Depth (cm): 1 Surface Area (cm^2): 11.4 Volume (cm^3): 11.4 Post-debridement measurements Length (cm): 4 Width (cm): 3.1 Depth (cm): 1 Percent debrided: 100% Surface Area (cm^2): 12.4 Area debrided (cm^2): 12.4 Volume (cm^3): 12.4 Devitalized tissue debrided: biofilm and slough Instrument(s) utilized: blade Bleeding: small Hemostasis obtained with: pressure Procedural pain (0-10): insensate Post-procedural pain: insensate Response to treatment: procedure was tolerated well Labs: Lab Results Component Value Date WBC 10.25 01/15/2022 Lab Results Component Value Date SEDRATE 74 (H) 01/09/2022 Lab Results Component Value Date CRP 28.4 (H) 01/09/2022 Imaging: EXAMINATION: MRI OF THE LEFT HINDFOOT WITHOUT CONTRAST; MRI OF THE LEFT FOOT WITHOUT CONTRAST 01/09/2022 TECHNIQUE: Multiplanar, multisequence MRI of the left hindfoot was performed without the administration of intravenous contrast.; Multiplanar, multisequence MRI of the left foot was performed without the administration of intravenous contrast. COMPARISON: 07/26/2020. HISTORY: ORDERING SYSTEM PROVIDED HISTORY: Please include foot and heel. Concern for possible OM at 5th MT, probes deeply to periosteum. Dry well-adhered eschar to calcaneus with no deep probe. No gross purulence on exam; TECHNOLOGIST PROVIDED HISTORY: Illness/Other Acuity: Unknown Reason for Exam: Diabetic ulcer of left foot associated with diabetes mellitus of other type, with other ulcer severity, unspecified part of foot ([facility]) Type of Encounter: Ongoing Additional signs and symptoms: Diabetic ulcer of left foot associated with diabetes mellitus of other type, with other ulcer severity, unspecified part of foot ([facility]) ORDERING SYSTEM PROVIDED DIAGNOSIS CODES: E11.628 Diabetic foot infection ([facility]) L08.9 Diabetic foot infection ([facility]) T14.8XXA Wound infection L08.9 Wound infection; ORDERING SYSTEM PROVIDED HISTORY: Concern for possible OM at 5th MT, probes deeply to periostum. Dry well-adhered eschar to calcaneus with no deep probe. No gross purulence on exam; FINDINGS: Motion artifact is present. Hindfoot: Plantar heel ulceration is present on the posterior lateral aspect of the heel soft tissues. No surrounding abscess or fluid collection in the heel soft tissues. Adjacent to the ulcer crater, there is focal marrow edema in the plantar aspect of the calcaneus with associated decreased T1 signal extending for a length of approximately 2 x 1.5 cm with a depth ofup to 1 cm concerning for acute osteomyelitis in the plantar calcaneus. Bone marrow signal in the talus, distal tibia and distal fibula is maintained. Bone marrow signal in the cuboid and midfoot bones is maintained. No discrete evidence of tendon tear or tenosynovitis. Superficial soft tissue edema is noted in theankle. Intramuscular edema is present with muscle atrophy involving the plantar musculature of the foot likely representing neuropathy. No evidence of joint effusion. Forefoot: Plantar lateral forefoot ulcer is present adjacent to the 5th MTP joint with surrounding cellulitis. There is edema along the ulcer crater without discrete fluid collection or drainable abscess. Marrow edema is present in the 5th metatarsal head and neck. Marrow edema throughout the proximal phalanx 5th digit. Findings are compatible with acute osteomyelitis given the proximity to the ulcer. Bone marrow signal in the 4th digit and 4th metatarsal is maintained. Increased signal is noted in the distal phalanx of the 1st, 2nd and 3rd digit which is nonspecific.This could be due to inhomogeneous fat suppression and artifact. Hammertoe deformity of the 2nd through 4th digits. The MTP joints are maintained. No joint effusion. Dorsal superficial soft tissue edema in the foot. IMPRESSION: 1. Acute osteomyelitis in the plantar calcaneus adjacent to the ulcer. 2. Acute osteomyelitis in the 5th metatarsal head and neck and proximal 5th phalanx adjacent to theulcer. 3. No soft tissue abscess. 4. Nonspecific increased signal in the distal phalanx of the 1st, 2nd and 3rd digits. This could bedue to artifact. This finding can also be seen with Raynaud's phenomenon or frostbite injury. 5. Intramuscular edema and atrophy in the plantar foot musculature compatible with neuropathy. [facility] Workstation ID: [id number] Vascular Studies: Procedure Description 95638 Duplex scan of lower extremity arteries or arterial bypass grafts using B- mode, color and spectral Doppler; complete bilateral study. Indications Code Description Weakly palpable DP, non palpable PT. Dry eschar to heel Conclusions Right. No evidence of hemodynamically significant stenosis of the right lower extremity. Right below knee amputation. Left. A significant stenosis (50-99%) is noted in the left proximal anterior tibial artery (ratio 4.8) . Left ANUP: 1.24 Measurements Right Left PSV Ratio Waveform PSV Ratio Waveforms 200 Multiphasic Iliac 187 Multiphasic 149 0.7 Multiphasic LABELING ASSOCIATE 163 0.9 Multiphasic 141 0.9 Multiphasic PFA 145 0.9 Multiphasic 115 0.8 Multiphasic SFA Prox 126 0.8 Multiphasic 97 0.8 Multiphasic SFA Mid 127 1.0 Multiphasic 73 0.7 Multiphasic SFA Dist 114 0.9 Multiphasic 84 1.2 Multiphasic POP Prox 110 1.0 Multiphasic 54 0.6 Multiphasic POP Mid 99 0.9 Multiphasic 58 1.1 Multiphasic POP Dist 105 1.1 Multiphasic YOUTH LIAISON OFFICER Prox 136 1.3 Multiphasic YOUTH LIAISON OFFICER Mid 110 0.8 Multiphasic YOUTH LIAISON OFFICER Dist 117 1.1 Multiphasic Jeannette Prox 84 0.8 Multiphasic Jeannette Mid 96 1.1 Multiphasic Jeannette Dist 105 1.1 Multiphasic KIM Prox 503 4.8 - KIM Mid 93 0.2 Multiphasic KIM Dist 81 0.9 Multiphasic Measurements Name Value Right PSV Right Distal EIA PSV 200 cm/s Right Mid LABELING ASSOCIATE PSV 149 cm/s Right Prox Profunda PSV 141 cm/s Right Prox SFA PSV 115 cm/s Right Mid SFA PSV 97 cm/s Right Distal SFA PSV 73 cm/s Right Prox Pop A PSV 84 cm/s Right Mid Pop A PSV 54 cm/s Right Distal Pop A PSV 58 cm/s Name Value Left PSV Left Distal EIA PSV 187 cm/s Left Mid LABELING ASSOCIATE PSV 163 cm/s Left Prox Profunda PSV 145 cm/s Left Prox SFA PSV 126 cm/s Left Mid SFA PSV 127 cm/s Left Distal SFA PSV 114 cm/s Left Prox Pop A PSV 110 cm/s Left Mid Pop A PSV 99 cm/s Left Distal Pop A PSV 105 cm/s Left Prox KIM PSV 503 cm/s Left Mid KIM PSV 93 cm/s Left Distal KIM PSV 81 cm/s Left Prox Jeannette A PSV 84 cm/s Left Mid Jeannette A PSV 96 cm/s Left Distal Jeannette A PSV 105 cm/s Left Prox YOUTH LIAISON OFFICER PSV 136 cm/s Left Mid YOUTH LIAISON OFFICER PSV 110 cm/s Left Distal YOUTH LIAISON OFFICER PSV 117 cm/s Left ANUP 1.24 Report Signatures Finalized by Fatmata Cosby MD, MS, RPVI on 2021 07 : 36 AM Assessment: Mikayla was seen today for wound check and dressing change. Diagnoses and all orders for this visit: Decubitus ulcer of left heel, stage 4 ([facility]) - Wound care Diabetic ulcer of left foot associated with diabetes mellitus of other type, with other ulcer severity, unspecified part of foot ([facility]) - Wound care Other orders - lidocaine (LMX) 4 % cream - Wound Debridement Plan: Patient was seen and examined. The wound was fully evaluated and documented in the chart. Refer to procedure documentation for details on debridement. His partial 5th ray site is healed and well coapted. His heel wound is progressing well, however there is necrotic debris and slough noted to the base of the wound which was debrided to a healthy bleeding granular base. He is to resume the wound vac, continuous 125 mmHg, to be changed 3x per week. There is more granulation tissue today and the calcaneus is no longer exposed. Once there is more granulation tissue to the heel, we will consider collagen or skin graft substitute application. Continue limited WB to the left lower extremity. I also discussed padding the dorsal foot/anterior ankle to avoid excess pressure and pressure wounds to the area. Dressing: Wound Vac, change 3x per week, 125 mmHg Weightbearing: Ideally NWB to the LLE, however this is difficult due to BKA to the RLE. Ok for limited WB to transfer Follow up: 2 weeks Reviewed signs of infection including edema, erythema, purulent drainage, malodor, nausea, vomiting, fever, and chills. Patient denies any signs of infection today. he is instructed to go to the ED for evaluation if any signs present. Ramana Jaramillo DPM AACFAS documented in this [id number] History of Present illness Narrative* Ramana Jaramillo DPM - 01/29/2022 10:55 AM EDTAssociated Order(s): Wound Debridement Post-Procedure Diagnose(s): Decubitus ulcer of left heel, stage 4 (HCC) Images from the original note were not included. Mikayla Pappas 1960 [id number] Physicians: Greyson Dominguez MD (Family); No ref. provider found (Referring) HPI Mikayla Pappas is a 61 y.o. 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 He reports doing well this morning and presents today in a wheel chair and wound vac in place to the left heel. He states that his pain is minimal. He at a SNF right now and they have been doing the wound vac changes 3x per week. He finished his antibiotic course as prescribed. 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 Denies any systemic symptoms. No other pedal complaints. Past Medical History: Diagnosis Date Diabetes mellitus, type 2 (HCC) no AC at home, on insulin for 3 years Diabetic neuropathy (HCC) GERD (gastroesophageal reflux disease) no current meds History of cardiac cath 1990 for RFA due to WPW History of depression no current meds Hyperlipidemia Hypertension Obesity Open wound right 3rd toe Seizures (HCC) questionable when a child, no recurrence Sleep apnea, obstructive partial compliance with CPAP WPW (Bwyzi-Zckibstvf-Nrvwc syndrome) 1990 s/p RFA in 1990, no current bobbin presser f/u Past Surgical History: Procedure Laterality Date AMPUTATION FOOT Left 08/05/2020 Procedure: POSSIBLE AMPUTATION; Surgeon: Jet Calvillo DPM; Location: [facility] OR; Service: Podiatry AMPUTATION TOE(S) Right 08/03/2016 Procedure: RIGHT 3RD DIGIT AMPUTATION ; Surgeon: Jet Calvillo DPM; Location: [facility] OR; Service: AMPUTATION TOE(S) Left 01/12/2022 Procedure: LEFT FOOT 5TH RAY PARTIAL AMPUTATION; Surgeon: Ramana Jaramillo DPM; Location: [facility] OR; Service: Podiatry CARDIAC CATHETERIZATION ablation for WPW CATHETER INSERTION SUPRAPUBIC N/A 08/16/2020 Procedure: CATHETER PLACEMENT OVER GUIDE; Surgeon: Paul Kim MD; Location: [facility] OR; Service: Urology CYSTO DIRECT VISION INTERNAL URETHROTOMY N/A 08/16/2020 Procedure: CYSTOSCOPY URETERAL DILATION POSSIBLE DIRECT VISION INTERNAL URETHROTOMY; Surgeon: Paul Kim MD; Location: [facility] OR; Service: Urology FOOT SURGERY Right 2nd toe partial amputation INCISION AND DRAINAGE FOOT AND ANKLE Left 07/29/2020 Procedure: LEFT FOOT ULCER INCISION AND DRAINAGE LEFT FOOT BONE DEBRIDEMENT W/ BIOPSY; Surgeon: Jet Calvillo DPM; Location: [facility] OR; Service: Podiatry INCISION AND DRAINAGE FOOT AND ANKLE Left 08/05/2020 Procedure: LEFT FOOT ULCER DEBRIDEMENT; Surgeon: Jet Calvillo DPM; Location: [facility] OR; Service: Podiatry INCISION AND DRAINAGE FOOT AND ANKLE Left 01/12/2022 Procedure: LEFT FOOT INCISION AND DRAINAGE W/ CALCANEOUS BONE BIOPSY; Surgeon: Ramana Jaramillo DPM; Location: [facility] OR; Service: Podiatry Social History Socioeconomic History Marital status: Tobacco Use Smoking status: Never Smoker Smokeless tobacco: Never Used Vaping Use Vaping Use: Never used Substance and Sexual Activity Alcohol use: No Drug use: No Family History Problem Relation Age of Onset Diabetes Father Surgical complications Neg Hx Anesthesia problems Neg Hx Heart disease Neg Hx Clotting disorder Neg Hx Deep vein thrombosis Neg Hx Pulmonary embolism Neg Hx Current Outpatient Medications on File Prior to Visit Medication Sig Dispense Refill alcohol swabs PadM Check your sugars up to 4 times a day . 100 each 11 aspirin 81 MG EC tablet Take 81 mg by mouth daily . atorvastatin (LIPITOR) 80 MG tablet Take 80 mg by mouth daily . bisacodyL (FLEET) 10 mg/30 mL Enem Insert 10 mg into the rectum once as needed . blood sugar diagnostic strips Check your sugars up to 4 times a day . 100 each 11 blood-glucose meter Misc Check your sugars up to 4 times a day . 1 each 0 cyanocobalamin (B-12) 500 MCG tablet Take 1 tablet by mouth daily . diclofenac sodium 1 % Gel Apply topically 4 (four) times a day . docusate sodium (COLACE) 100 MG capsule Take 100 mg by mouth 2 (two) times a day . DULoxetine (CYMBALTA) 60 MG capsule Take 60 mg by mouth at bedtime Along with 30 mg to make 90mg atbedtime . DULoxetine 30 mg CDRS Take 30 mg by mouth at bedtime Along with 60 mg to make 90mg at bedtime . ergocalciferol (ERGOCALCIFEROL) 1,250 mcg (50,000 unit) capsule Take 50,000 Units by mouth once a week . ferrous sulfate 325 (65 FE) MG tablet Take 1 (one) tablet (325 mg total) by mouth daily with breakfast Start: 01/18/22. 30 tablet 0 gabapentin (NEURONTIN) 100 MG capsule Take 100 mg by mouth daily . gabapentin (NEURONTIN) 300 MG capsule Take 300 mg by mouth at bedtime . glipiZIDE (GLUCOTROL XL) 10 MG 24 hr tablet Take 10 mg by mouth daily . guaiFENesin (MUCINEX) 600 mg 12 hr tablet Take 600 mg by mouth 2 (two) times a day as needed for congestion . hydrocortisone 1 % cream Apply topically 2 (two) times a day . insulin glargine (Lantus Solostar U-100 Insulin) 100 unit/mL (3 mL) InPn Inject 22 Units under the skin nightly . lancets Misc Check your sugars up to 4 times a day . 100 each 11 lidocaine (LIDODERM) 5 % patch Place 1 patch on the skin every 12 (twelve) hours Remove & Discard patch within 12 hours or as directed by MD- to back . loperamide (IMODIUM A-D) 2 mg tablet Take 2 mg by mouth 4 (four) times a day as needed for diarrheaMax 4 tablets in 24 hours . magnesium hydroxide (MOM) 400 mg/5 mL Susp Take 30 mL by mouth daily as needed . melatonin 5 mg Tab Take 5 mg by mouth at bedtime . naloxone (NARCAN) 4 mg/actuation Epes Administer 1 spray into one nostril for known or suspected opioid overdose. If patient worsens or does not respond, may repeat in 2-3 minutes. . 2 each 0 ondansetron (ZOFRAN-ODT) 4 MG disintegrating tablet Dissolve 4 mg on top of tongue every 6 (six) hours as needed for nausea . oxybutynin (DITROPAN-XL) 10 MG 24 hr tablet Take 10 mg by mouth daily . pen needle, diabetic 32 gauge x 5/32 Ndle Change pen needles daily as needed up to 4 times. . 100 each 11 polyethylene glycol (MIRALAX) 17 gram powder Take 17 g by mouth daily . sitagliptin (JANUVIA) 50 MG tablet Take 50 mg by mouth daily . tiZANidine (ZANAFLEX) 2 MG tablet Take 2 mg by mouth 2 (two) times a day . No current facility-administered medications on file prior to visit. Allergies: Dilantin infatabs [phenytoin] Review of Systems: The following system(s) were reviewed and pertinent findings noted: Constitutional: negative Cardiovascular: negative Integumentary: ulceration Musculoskeletal:positive for muscle weakness Neurological: negative Physical Exam: Vital Signs: BP 129/66 Pulse 78 Temp 97.8 F (36.6 C) Resp 18 Ht 5' 8 Wt 88.5 kg (195 lb) BMI 29.65 kg/m Vascular: DP: weakly palpable PT: nonpalpable Musculoskeletal: Muscle strength 4/5. No gross deformities. Skin: Please refer to wound documentation below Wound 08/16/20 Surgical Wound Penis (Active) Date First Assessed/Time First Assessed: 08/16/20 1109 Primary Wound Type: Surgical Wound Location:Penis Assessments 08/16/2020 11:28 AM 08/18/2020 8:03 AM Drainage Amount None None Odor -- None Wound Bed Characteristics -- Mackay No Linked orders to display Wound 01/29/22 1 Pressure Injury Heel Left (Active) Date First Assessed: 01/29/22 Number: 1 Present on Hospital Admission: Yes Wound Approximate Age atFirst Assessment (Weeks): 2 weeks Primary Wound Type: Pressure Injury Location: Heel Wound LocationOrientation: Left Wound Outcome: Not healed Assessments 10/20/2020 2:07 AM 01/29/2022 10:30 AM Wound Image Wound Length (cm) -- 4.3 cm Wound Width (cm) -- 3.2 cm Wound Depth (cm) -- 1.2 cm Wound Surface Area (cm^2) -- 13.76 cm^2 Wound Volume (cm^3) -- 16.512 cm^3 Area % Change -- 0 Tunneling Maximum Distance (cm) -- 0 cm Tunneling Position (o'clock) -- 0 Tunneling Maximum Distance (cm) -- 0 cm Tunneling Position (o'clock) -- 0 Undermining Maximum Distance (cm) 1 -- 0 cm Undermining Starting Position (o'clock) 1 -- 0 Undermining Ending Position (o'clock) 1 -- 0 Undermining Maximum Distance (cm) 2 -- 0 cm Undermining Starting Position (o'clock) 2 -- 0 Undermining Ending Position (o'clock) 2 -- 0 Pressure Injury Stage -- Stage 4 Drainage Amount -- Small Drainage Description -- Serosanguineous Odor -- None Wound Margin -- Well defined Adherent Yellow Slough % -- 26-50% Moist Yellow Slough % -- None Dry Black Eschar % -- None Moist Black Eschar % -- None Epithelialization % -- None Granulation % -- 26-50% Exposed Structure -- None Wound Bed Characteristics -- Granulation tissue;Yellow Carli-wound Assessment -- Maceration Treatments -- Topical anesthetic for procedural pain control per order;Assist with debridement Hemostasis -- Manual pressure Cleansed -- Sterile saline Primary Dressing -- Sodium hypochlorus solution (VASHE) Secondary Dressing -- Gauze pad;Highly absorbent dressing;Gauze roll Compression Dressing Single layer wrap Spencer wrap Active Orders Date Order Priority Status Authorizing Provider 01/30/22 0924 Wound Debridement Routine Active Ramana Jaramillo DPM - Release to patient: Immediate Inactive Orders Date Order Priority Status Authorizing Provider 01/12/22 1904 Inpatient consult to Enterostomal Therapy Routine Completed Cedric Tan DPM - Reason For Consult?: Negative Pressure Dressing - Wound location(s) or Specific need: L heel 10/20/20 0212 Inpatient consult to Enterostomal Therapy Routine Completed Padmini Hernandez MD - Reason For Consult?: Wound Care - Wound location(s) or Specific need: Top and bottom of left foot Wound 01/09/22 Anterior;Left;Plantar (Active) Date First Assessed/Time First Assessed: 01/09/221812 Wound Location Orientation: Anterior;Left;Plantar Assessments 01/09/2022 5:45 PM 01/17/2022 3:41 AM Reassessment -- Unchanged Drainage Amount None -- Wound Bed Characteristics Black;Brown -- Primary Dressing Gauze roll -- No Linked orders to display Wound 01/09/22 Ankle Anterior;Left (Active) Date First Assessed/Time First Assessed: 01/09/221812 Location: Ankle Wound Location Orientation: Anterior;Left Assessments 01/09/2022 5:45 PM 01/17/2022 3:41 AM Reassessment -- Unchanged Drainage Amount Small -- Drainage Description Pool -- Odor None -- Wound Bed Characteristics Red -- Primary Dressing Non adherent -- Secondary Dressing Gauze roll -- No Linked orders to display Wound 01/12/22 Surgical Wound Foot Anterior;Left (Active) Date First Assessed/Time First Assessed: 01/12/22 1303 Primary Wound Type: Surgical Wound Location:Foot Wound Location Orientation: Anterior;Left DRESSING: betadine adaptic, 4x4, webril, SPENCER Assessments 01/12/2022 2:52 PM 01/17/2022 3:41 AM Reassessment -- Unchanged Drainage Amount None -- No Linked orders to display Negative Pressure Wound Therapy 01/15/22 Left (Active) Date First Assessed/Time First Assessed: 01/15/22 1559 Location: Heel Wound Location Orientation: Left Assessments 01/15/2022 1:00 PM 01/17/2022 8:51 AM Wound Bed Characteristics -- CRISTA (Unable to assess) Unit Type -- Vac Ulta Cycle -- Continuous;On Target Pressure (mmHg) -- 125 Canister Changed -- No Dressing Status -- Clean;Dry;Intact Drainage Amount -- Scant Drainage Description -- Serosanguineous Output 0 mL -- No Linked orders to display Debridement Wound 01/29/22 1 Pressure Injury Heel Left Consent obtained? verbal Consent given by: patient Risks discussed? procedural risks discussed Immediately prior to the procedure a time out was called Performed by: physician Debridement type: surgical Level of debridement: muscle Pain control: lidocaine 4% Pre-debridement measurements Length (cm): 4.3 Width (cm): 3.2 Depth (cm): 1.2 Surface Area (cm^2): 13.76 Volume (cm^3): 16.51 Post-debridement measurements Length (cm): 4.4 Width (cm): 3.3 Depth (cm): 1.3 Percent debrided: 100% Surface Area (cm^2): 14.52 Area debrided (cm^2): 14.52 Volume (cm^3): 18.88 Devitalized tissue debrided: biofilm, necrotic debris and slough Instrument(s) utilized: blade Bleeding: small Hemostasis obtained with: pressure Procedural pain (0-10): insensate Post-procedural pain: insensate Response to treatment: procedure was tolerated well Labs: Lab Results Component Value Date WBC 10.25 01/15/2022 Lab Results Component Value Date SEDRATE 74 (H) 01/09/2022 Lab Results Component Value Date CRP 28.4 (H) 01/09/2022 Imaging: EXAMINATION: MRI OF THE LEFT HINDFOOT WITHOUT CONTRAST; MRI OF THE LEFT FOOT WITHOUT CONTRAST 01/09/2022 TECHNIQUE: Multiplanar, multisequence MRI of the left hindfoot was performed without the administration of intravenous contrast.; Multiplanar, multisequence MRI of the left foot was performed without the administration of intravenous contrast. COMPARISON: 07/26/2020. HISTORY: ORDERING SYSTEM PROVIDED HISTORY: Please include foot and heel. Concern for possible OM at 5th MT, probes deeply to periosteum. Dry well-adhered eschar to calcaneus with no deep probe. No gross purulence on exam; TECHNOLOGIST PROVIDED HISTORY: Illness/Other Acuity: Unknown Reason for Exam: Diabetic ulcer of left foot associated with diabetes mellitus of other type, with other ulcer severity, unspecified part of foot ([facility]) Type of Encounter: Ongoing Additional signs and symptoms: Diabetic ulcer of left foot associated with diabetes mellitus of other type, with other ulcer severity, unspecified part of foot ([facility]) ORDERING SYSTEM PROVIDED DIAGNOSIS CODES: E11.628 Diabetic foot infection ([facility]) L08.9 Diabetic foot infection ([facility]) T14.8XXA Wound infection L08.9 Wound infection; ORDERING SYSTEM PROVIDED HISTORY: Concern for possible OM at [facility], probes deeply to periostum. Dry well-adhered eschar to calcaneus with no deep probe. No gross purulence on exam; FINDINGS: Motion artifact is present. Hindfoot: Plantar heel ulceration is present on the posterior lateral aspect of the heel soft tissues. No surrounding abscess or fluid collection in the heel soft tissues. Adjacent to the ulcer crater, there is focal marrow edema in the plantar aspect of the calcaneus with associated decreased T1 signal extending for a length of approximately 2 x 1.5 cm with a depth ofup to 1 cm concerning for acute osteomyelitis in the plantar calcaneus. Bone marrow signal in the talus, distal tibia and distal fibula is maintained. Bone marrow signal in the cuboid and midfoot bones is maintained. No discrete evidence of tendon tear or tenosynovitis. Superficial soft tissue edema is noted in theankle. Intramuscular edema is present with muscle atrophy involving the plantar musculature of the foot likely representing neuropathy. No evidence of joint effusion. Forefoot: Plantar lateral forefoot ulcer is present adjacent to the 5th MTP joint with surrounding cellulitis. There is edema along the ulcer crater without discrete fluid collection or drainable abscess. Marrow edema is present in the 5th metatarsal head and neck. Marrow edema throughout the proximal phalanx 5th digit. Findings are compatible with acute osteomyelitis given the proximity to the ulcer. Bone marrow signal in the 4th digit and 4th metatarsal is maintained. Increased signal is noted in the distal phalanx of the 1st, 2nd and 3rd digit which is nonspecific.This could be due to inhomogeneous fat suppression and artifact. Hammertoe deformity of the 2nd through 4th digits. The MTP joints are maintained. No joint effusion. Dorsal superficial soft tissue edema in the foot. IMPRESSION: 1. Acute osteomyelitis in the plantar calcaneus adjacent to the ulcer. 2. Acute osteomyelitis in the 5th metatarsal head and neck and proximal 5th phalanx adjacent to theulcer. 3. No soft tissue abscess. 4. Nonspecific increased signal in the distal phalanx of the 1st, 2nd and 3rd digits. This could bedue to artifact. This finding can also be seen with Raynaud's phenomenon or frostbite injury. 5. Intramuscular edema and atrophy in the plantar foot musculature compatible with neuropathy. [facility] Workstation ID: [id number] Vascular Studies: Procedure Description [id number] Duplex scan of lower extremity arteries or arterial bypass grafts using B- mode, color and spectral Doppler; complete bilateral study. Indications Code Description Weakly palpable DP, non palpable PT. Dry eschar to heel Conclusions Right. No evidence of hemodynamically significant stenosis of the right lower extremity. Right below knee amputation. Left. A significant stenosis (50-99%) is noted in the left proximal anterior tibial artery (ratio 4.8) . Left ANUP: 1.24 Measurements Right Left PSV Ratio Waveform PSV Ratio Waveforms 200 Multiphasic Iliac 187 Multiphasic 149 0.7 Multiphasic LABELING ASSOCIATE 163 0.9 Multiphasic 141 0.9 Multiphasic PFA 145 0.9 Multiphasic 115 0.8 Multiphasic SFA Prox 126 0.8 Multiphasic 97 0.8 Multiphasic SFA Mid 127 1.0 Multiphasic 73 0.7 Multiphasic SFA Dist 114 0.9 Multiphasic 84 1.2 Multiphasic POP Prox 110 1.0 Multiphasic 54 0.6 Multiphasic POP Mid 99 0.9 Multiphasic 58 1.1 Multiphasic POP Dist 105 1.1 Multiphasic YOUTH LIAISON OFFICER Prox 136 1.3 Multiphasic YOUTH LIAISON OFFICER Mid 110 0.8 Multiphasic YOUTH LIAISON OFFICER Dist 117 1.1 Multiphasic Jeannette Prox 84 0.8 Multiphasic Jeannette Mid 96 1.1 Multiphasic Jeannette Dist 105 1.1 Multiphasic KIM Prox 503 4.8 - KIM Mid 93 0.2 Multiphasic KIM Dist 81 0.9 Multiphasic Measurements Name Value Right PSV Right Distal EIA PSV 200 cm/s Right Mid LABELING ASSOCIATE PSV 149 cm/s Right Prox Profunda PSV 141 cm/s Right Prox SFA PSV 115 cm/s Right Mid SFA PSV 97 cm/s Right Distal SFA PSV 73 cm/s Right Prox Pop A PSV 84 cm/s Right Mid Pop A PSV 54 cm/s Right Distal Pop A PSV 58 cm/s Name Value Left PSV Left Distal EIA PSV 187 cm/s Left Mid LABELING ASSOCIATE PSV 163 cm/s Left Prox Profunda PSV 145 cm/s Left Prox SFA PSV 126 cm/s Left Mid SFA PSV 127 cm/s Left Distal SFA PSV 114 cm/s Left Prox Pop A PSV 110 cm/s Left Mid Pop A PSV 99 cm/s Left Distal Pop A PSV 105 cm/s Left Prox KIM PSV 503 cm/s Left Mid KIM PSV 93 cm/s Left Distal KIM PSV 81 cm/s Left Prox Jeannette A PSV 84 cm/s Left Mid Jeannette A PSV 96 cm/s Left Distal Jeannette A PSV 105 cm/s Left Prox YOUTH LIAISON OFFICER PSV 136 cm/s Left Mid YOUTH LIAISON OFFICER PSV 110 cm/s Left Distal YOUTH LIAISON OFFICER PSV 117 cm/s Left ANUP 1.24 Report Signatures Finalized by Fatmata Cosby MD, MS, RPVI on 2021 07 : 36 AM Assessment: Mikayla was seen today for wound check, dressing change and npwt. Diagnoses and all orders for this visit: Decubitus ulcer of left heel, stage 4 (HCC) - Wound care - Wound Debridement Other orders - lidocaine (XYLOCAINE) 4 % (40 mg/mL) external solution - Cancel: Wound care Plan: Patient was seen and examined. The wound was fully evaluated and documented in the chart. Refer to procedure documentation for details on debridement. His partial 5th ray site is healed and well coapted, sutures were removed today without incident. His heel wound is progressing well, however there is necrotic debris and slough noted to the base of the wound which was debrided to a healthy bleeding granular base. He is to resume the wound vac, continuous 125 mmHg, to be changed 3x per week. Oncethere is more granulation tissue to the heel, we will consider collagen or skin graft substitute application. Continue limited WB to the left lower extremity. Dressing: Wound Vac, change 3x per week, 125 mmHg Weightbearing: Ideally NWB to the LLE, however this is difficult due to BKA to the RLE. Ok for limited WB to transfer Follow up: 2 weeks Reviewed signs of infection including edema, erythema, purulent drainage, malodor, nausea, vomiting, fever, and chills. Patient denies any signs of infection today. he is instructed to go to the ED for evaluation if any signs present. Ramana Jaramillo DPM AACFAS documented in this [id number] Instructions* Patient Instructions* Rafy Cardenas RN - 01/29/2022 10:50 AM EDT Images from the original note were not included. The following Patient Instructions and Wound Care Orders are current as of this date. All previous orders/treatments should be discontinued. Negative Pressure Wound Therapy Orders: Follow diesel automotive technician's device specific guidelines Wound location: L heel Change dressing and foam THREE times a week Remove drape with adhesive remover Clean wound with Saline Apply Betadine to periwound to reduce maceration Use a skin prep barrier to skin prior to appyling drape. Apply drape to carli wound to the edge of the wound bed. May need to use small strips of vac drape to picture frame the wound Gently place foam in tunnels, undermining or over exposed structures if instructed Cut foam at least 2mm smaller than the wound to avoid touching skin Settings: 125 mmHG continuous suction If suction is not maintained or dressing is compromised for longer than two hours, apply a saline moistened dressing daily and notify your home health agency or [facility] at [phone]. Nurse Visit PRN to provide wound assessment and care per current wound care order for dressing complications with NPWT. Sutures removed to L lateral foot during visit Pad L dorsal foot with ABD prior to applying Spencer Wrap for protection Apply Spencer Wrap(s) to Left lower leg from toes to knee making sure to cover the heel at 50% stretch and overlap (unless otherwise instructed). Apply in the morning and re-wrap as needed during the dayif wrap becomes loose. Remove at bedtime, unless otherwise directed. May hand wash as needed and line dry. TROUBLESHOOTING NEGATIVE PRESSURE WOUND THERAPY ALARMS LOW BATTERY ALARM Charge battery whenever you are home Check to make sure the device is plugged in appropriately Check that cord is plugged into power supply box Check that cord is plugged into the wall If still alarming call device company response center immediately TUBING BLOCKED ALARM Make sure clamps on tubing are completely open Make sure tubing is not kinked Suction pad can be changed by cutting away old one and placing new one over the old area LEAK DETECTED ALARM Examine dressing for area where it may be leaking and reinforce with extra drape Stoma paste or barrier rings may be used to help seal leaks Check the connector where the suction pad and the canister are connected, if leaking, drape or tapemay be wrapped around connector If suction pad is leaking, reinforce or replace CANISTER FULL ALARM Change canister, new canister will just snap in place after old canister removed Keep device upright to prevent drainage from clogging sensors at top of the canister Canisters can be ordered from device [employer] If unable to correct alarm within 2hours, the dressing needs to be changed or removed and use a saline dressing until new a NPWT dressing can be applied High Blood Pressure: If your blood pressure taken today is above 150/95, please contact your primary care physician to get further instructions. If you experience the following emergent symptoms; chest pain, shortness ofbreath, headache, dizziness, vision changes, unusual and/or excessive sweating or nausea vomiting -call 911 or go to the nearest emergency room. Bleeding: If your wound was debrided and continues to bleed after your appointment, apply direct pressure to the wound with a clean cloth or dressing for 10-20 minutes. If the bleeding does not stop, call [facility] [phone] or go to the Emergency Room. Signs/Symptoms of Infection: If you have any fever, chills, nausea, vomiting or increased odor, drainage, pain or redness to thewound, call [facility] at [phone]. If after hours, contact your family physician or go to the Emergency Room. Tips You can do at Home to Help Heal Your Wound Tobacco Use: No smoking or tobacco products because they can slow or even stop wound healing. Diabetic Management: If you are diabetic, check your blood sugar every morning before eating. Keep your fasting blood sugar below 120. Keep regular appointments with your primary physician to monitor your diabetes. Follow your diabetic diet carefully. Skin Care: Use apply moisturizing lotion to dry, intact skin, avoid getting between the toes. Apply skin sealant or barrier to protect the skin from too much moisture. Inspect skin (including feet) daily for redness, blisters, rash, cracks, or open areas. Incontinence Skin Care Quickly cleanse and gently pat dry after every incontinence episode or loose bowel movement to keeparea as clean and dry as possible. Use a barrier cream to protect skin as directed. Edema Control Instructions: Elevate legs above the level of your heart whenever you are sitting. Avoid standing for long periods and do not sit with your legs dangling. Compression Stockings: Apply compression stocking(s) every morning as soon as you get up. Remove atbedtime unless instructed to wear day and night. Hand wash and line dry to prevent loss of elasticity. Replace every 3-4 months to ensure proper fit. Pressure Relief Instructions: Keep weight and pressure off your wound(s) and bony areas of the body (for example, heels, tail bone, hip, elbows, back of head). Reposition as instructed. Shift position in chair every 15 minutes.Turn every 2 hours while lying down. Wear heel guards to keep pressure off heels while in bed or in a chair. Remove while transferring or walking. Specialty Bed: Alternating Air Mattress Wheelchair cushion: Dayna. Use this wherever you are sitting. Diet: Increase the lean protein in your diet. Examples of foods high in protein are lean cuts of meat, fish, dairy foods, peanut butter and eggs. Use protein supplements as directed. Limit your salt/sodium as instructed. Choose fresh fruits, vegetables and lean cuts of meat. Do notadd salt to food during or after cooking. Season food with herbs and spices instead of salt. Avoid salty snacks, fast foods, deli meats and pre-packaged foods. If instructed, limit your fluids to no more than 2 quarts, (64 ounces), of a day. This includes water, juice, coffee, tea, pop, soup, etc. If you are diabetic, check your blood sugar every morning before eating. Keep your fasting blood sugar below 120. Keep regular appointments with your primary physician to monitor your diabetes. Follow your diabetic diet carefully. Protein for Wound Healing You need at least 80-100 grams of protein per day for the body to heal a wound. Be creative and increase protein levels by: Eating the protein items at meal time first. Eat small meals and snacks throughout the day Adding eggs to casseroles, meat loaf, mashed potatoes, macaroni & cheese, salads. Adding cheese to sandwiches, casseroles, potatoes, vegetables, and omelets. Adding peanut butter to toast, bagels, waffles, crackers, bananas, apples, and celery. Adding protein powder to - drinks, pudding, potatoes, soups, ground meats, cooked cereal, milkshakes, yogurt, and pancake batter. Item Portion Size Grams of Protein Most Meats 1 oz 7 Beef Hamburger Vivian 4 oz 28 Steak 6 oz 42 Chicken Breast 3.5 oz 30 Thigh Average 10 Drumstick Average 11 Wing Average 6 Most Other 4 oz cooked 35 Fish Tuna 6 oz can 40 Fish Fillets or Steaks 1oz cooked 6 Pork Chop Average 22 Loin or Tenderloin 4 oz 29 Ham 3 oz 19 Ground 3 oz cooked 22 Mackey 1 slice 3 Taiwanese-style Mackey (Back Mackey) 1 slice 5-6 Eggs and Dairy Egg Large 6 Milk 1 cup 8 Cottage Cheese cup 15 Yogurt 1 cup 8-12 Kyrgyz Yogurt 6 oz 18 Soft Cheeses (Mozzarella, Brie) 1 oz 6 Medium Cheeses(Cheddar,British) 1 oz 7-8 Hard Cheeses (Parmesan) 1 oz 10 Beans / Soy Tofu cup 10 Soy Milk 1 cup 6-10 Soy Beans cup cooked 14 Edamame cup 8-12 Most Beans (black, huang, lentils) cup cooked 7-10 Split Peas cup cooked 8 Nuts and Seeds Peanut Butter 2 Tablespoons 8 Peanuts cup 9 Almonds cup 8 Cashews cup 5 Pecans cup 2.5 Bristol Seeds cup 6 Pumpkin Seeds cup 19 Flax Seeds cup 8 Some Whole Grain Breads 1 slice 4-5 Other Protein Powder 1 scoop 20 Wound 08/16/20 Surgical Wound Penis (Active) Wound 01/29/22 1 Pressure Injury Heel Left (Active) Wound Image 01/29/22 1030 Wound Length (cm) 4.3 cm 01/29/22 1030 Wound Width (cm) 3.2 cm 01/29/22 1030 Wound Depth (cm) 1.2 cm 01/29/22 1030 Wound Surface Area (cm^2) 13.76 cm^2 01/29/22 1030 Wound Volume (cm^3) 16.512 cm^3 01/29/22 1030 Area % Change 0 01/29/22 1030 Tunneling Maximum Distance (cm) 0 cm 01/29/22 1030 Tunneling Position (o'clock) 0 01/29/22 1030 Tunneling Maximum Distance (cm) 0 cm 01/29/22 1030 Tunneling Position (o'clock) 0 01/29/22 1030 Undermining Maximum Distance (cm) 1 0 cm 01/29/22 1030 Undermining Starting Position (o'clock) 1 0 01/29/22 1030 Undermining Ending Position (o'clock) 1 0 01/29/22 1030 Undermining Maximum Distance (cm) 2 0 cm 01/29/22 1030 Undermining Starting Position (o'clock) 2 0 01/29/22 1030 Undermining Ending Position (o'clock) 2 0 01/29/22 1030 Pressure Injury Stage 4 01/29/22 1030 Drainage Amount Small 01/29/22 1030 Drainage Description Serosanguineous 01/29/22 1030 Odor None 01/29/22 1030 Wound Margin Well defined 01/29/22 1030 Adherent Yellow Slough % 26-50% 01/29/22 1030 Moist Yellow Slough % None 01/29/22 1030 Dry Black Eschar % None 01/29/22 1030 Moist Black Eschar % None 01/29/22 1030 Epithelialization % None 01/29/22 1030 Granulation % 26-50% 01/29/22 1030 Exposed Structure None 01/29/22 1030 Wound Bed Characteristics Granulation tissue;Yellow 01/29/22 1030 Carli-wound Assessment Maceration 01/29/22 1030 Treatments Topical anesthetic for procedural pain control per order;Assist with debridement 01/29/22 1030 Hemostasis Manual pressure 01/29/22 1030 Cleansed Sterile saline 01/29/22 1030 Primary Dressing Sodium hypochlorus solution (VASHE) 01/29/22 1030 Secondary Dressing Gauze pad;Highly absorbent dressing;Gauze roll 01/29/22 1030 Compression Dressing Spencer wrap 01/29/22 1030 Wound 01/09/22 Anterior;Left;Plantar (Active) Wound 01/09/22 Ankle Anterior;Left (Active) Wound 01/12/22 Surgical Wound Foot Anterior;Left (Active) documented in this [id number] History of Present illness Narrative* Lisa Butts LMSW - 01/18/2022 10:20 PM EDT SW was consulted for transportation. 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 Patient per the RN will be returning to [facility]. Patient meets billing criteria for ambulance transport.Ambulance coordinated via [employer]. * Magdalena Mccullough MD - 01/18/2022 8:52 PM EDT HPI Chief Complaint Patient presents with Constipation c/o rectal pain. states straining to have BM. last BM yesterday. d/c from [place] yesterday for foot surgery. states issues with blockages in the past. Patient is a 61-year-old male presents with constipation postop day 6 from an amputation of his left fifth toe and debridement with the wound VAC placement. This was done at [facility]. He was discharged yesterday. He now presents feeling as though there is a hard globs at the bottom of his rectum that he cannot get out. He states that he has felt bloated. He has a prescription at the [facility] for glycerin suppositories but he did not get these. Instead he was sent to the ED for evaluationof constipation. No data recorded Patient History Past Medical History: Diagnosis Date Diabetes mellitus ([facility]) Hypertension Stroke ([facility]) Past Surgical History: Procedure Laterality Date AMPUTATION Right CARDIAC SURGERY No family history on file. Social History Tobacco Use Smoking status: Never Smoker Smokeless tobacco: Never Used Substance Use Topics Alcohol use: Yes Alcohol/week: 1.0 standard drink Types: 1 Glasses of wine per week Comment: occasionally Drug use: Never Review of Systems Review of Systems All other systems reviewed and are negative. Physical Exam ED Triage Vitals [01/18/22 2100] Temp Heart Rate Resp BP 36.8 C (98.3 F) 91 20 133/83 SpO2 Temp src Heart Rate Source Patient Position 100 % -- -- -- BP Location FiO2 (%) -- -- Physical Exam Vitals and nursing note reviewed. Constitutional: General: He is not in acute distress. Appearance: Normal appearance. He is not toxic-appearing or diaphoretic. HENT: Head: Normocephalic and atraumatic. Nose: Nose normal. Eyes: Extraocular Movements: Extraocular movements intact. Conjunctiva/sclera: Conjunctivae normal. Cardiovascular: Pulses: Normal pulses. Comments: Warm and well-perfused Pulmonary: Effort: Pulmonary effort is normal. Breath sounds: No stridor. Abdominal: General: Abdomen is flat. There is no distension. Genitourinary: Comments: Large fecal impaction hard stool in the rectal vault and between his buttocks Musculoskeletal: General: No deformity. Normal range of motion. Cervical back: Normal range of motion. Skin: General: Skin is warm and dry. Coloration: Skin is not jaundiced. Findings: No bruising or rash. Neurological: General: No focal deficit present. Mental Status: He is alert. Mental status is at baseline. Psychiatric: Mood and Affect: Mood normal. Behavior: Behavior normal. Thought Content: Thought content normal. Judgment: Judgment normal. ED Course & MDM Clinical Impressions as of 01/19/22 0018 Fecal impaction ([facility]) MDM Number of Diagnoses or Management Options Fecal impaction ([facility]) Diagnosis management comments: 61-year-old male postop day 6 from amputation of the left pinky toe with wound VAC placement NOW presents with fecal impaction. He has an obvious fecal impaction on exam I was able to digitally disimpact a large quantity of the hard stool. Patient was allowed to sit on the bedpan, he was unsuccessful in having a bowel movement. Thus he received magnesium citrate, I then discharged the back to the ECF where they can continue a bowel regiment. I wrote a prescriptionfor MiraLAX, glycerin suppositories, and fleets enemas. This should be able to be managed at the F. There is no evidence of bowel obstruction as it is obviously a fecal impaction as noted on exam. IMPRESSION: Fecal impaction Procedures Magdalena Mccullough MD 01/18/222106 Magdalena Mccullough MD 01/19/22 0021 documented [facility] [id number] Miscellaneous Notes* ED Bed Hold Note - ANASTACIO KingP - 01/18/2022 8:54 PM EDT Bed: -03 Expected date: Expected time: Means of arrival: Comments: M402/B documented in this [place] [id number] Hospital Discharge instructions* Instructions* Magdalena Mccullough MD - 01/18/2022 The ECF should be able to administer laxatives, stool softeners, enemas, suppositories, and intermittent digital disimpactions. If you are properly stimulated from above and stimulated from below the stool should eventually move to relieve your fecal impaction. * Attachments The following attachments cannot be sent through Care Everywhere. * Constipation (Burmese) [facility]-16-[facility] Note* Quick Note - Christina Vo RN - 01/17/2022 2:57 PM EDT PIV removed. Wound vac removed and wet to dry dressing placed to L foot. AVS and paper script givento EMS transport. Report given to EMS and all questions answered. Pt has all belongings. [id number] Miscellaneous Notes* Quick Note - Christina Vo RN - 01/17/2022 2:57 PM EDT PIV removed. Wound vac removed and wet to dry dressing placed to L foot. AVS and paper script givento EMS transport. Report given to EMS and all questions answered. Pt has all belongings. * Quick Note - Mimi Cuellar RN - 01/16/2022 10:00 AM EDT Patient seen for vac check. Vac functional without errors at this time. Will continue to follow. * Plan of Care - Wiliam Bryant RN - 01/16/2022 12:15 AM EDT 1950: Assumed care of patient. [place]. [place] [facility]th [place] [facility] infection to foot. See prior note. Pt. Is A+O X 4. Upon assessment, Pt. Denies any CP, SOB, dizzy, lightheaded, N/V/D. Pt. HasRLE BKA. Pt. Endorses LLE chronic numbness. Pt. Currently has wound vac. In place to LLE Heel. Spencer wrap around foot and up past ankle. Pt. Safety maintained. Bed low and locked, side rails up. Instructed patient to call prior to getting out of bed, call light in reach, table in reach with belongings. Plan Of Care Pt. Safety maintain Bed low and locked Side rails up Telemetry VS as ordered Will notify LIP of pt. New onset CP, SOB, pulse ox < 92 percent 0028: Pt. Request for something else to help him sleep this evening. Melatonin not working per patient. [place] [facility] something else to help patient sleep, possibly trazodone. 0630: Wound vac. In place With no output throughout night. Problem: Actual or potential alteration in health Goal: Absence of healthcare acquired conditions Outcome: Partially Met Goal: Knowledge of Interdisciplinary Plan of Care Outcome: Partially Met Goal: Knowledge of Enviroment Outcome: Partially Met Problem: Pressure Ulcer - Risk of Goal: Absence of pressure ulcer Outcome: Partially Met Problem: Pain Goal: Manage acute pain Outcome: Partially Met Goal: Manage chronic pain Outcome: Partially Met Goal: Reduced pain sensation Outcome: Partially Met Goal: Achievement of comfort function goal Outcome: Partially Met Problem: Falls, Risk of Goal: Absence of falls Outcome: Partially Met Problem: Breathing Pattern - Ineffective Goal: Effective breathing pattern Outcome: Partially Met * Pharmacy Note - Gabino Childs [facility],PharmD - 01/15/2022 2:06 PM EDT Pharmacokinetic Consult - Vancomycin Dosing Mikayla Pappas is a 61 y.o. male who has been consulted for vancomycin dosing for osteomyelitis. Assessment/Plan 1. Vancomycin trough (~24 hrs post dose): 20.1 mcg/mL. At end of goal range. 2. Will reduce dose to vancomycin 1g IV Q24hrs 3. Pharmacy will continue to follow the patient s culture results and clinical progress daily. S/O Goal vancomycin trough: 10-20 mcg/mL Goal vancomycin AUC:STEPHIE: 400-600 mcg*hr/mL Relevant clinical data and objective history reviewed: Lab Results Component Value Date CREATININE 1.05 01/15/2022 Estimated Creatinine Clearance: 72.4 mL/min (by C-G formula based on SCr of 1.05 mg/dL). Wt Readings from Last 3 Encounters: 01/09/22 81.6 kg (180 lb) 01/09/22 87.1 kg (192 lb) 10/19/20 83.3 kg (183 lb 10.3 oz) Gabino Childs PharmD, [facility] Contact: Shan * Plan of Care - Wiliam Bryant RN - 01/15/2022 3:46 AM EDT 1950: Assumed care of patient. Pt. [place] 9th [place] [facility] [place] Pt. Is A+O X 4. Upon assessment, Pt. Denies any CP, SOB, dizzy, lightheaded, N/V/D. Pt. Safety maintained. Bed low and locked, side rails up. Instructed patient to call prior to getting out of bed, call light in reach, table in reach with belongings. Pt. Has R BKA. Possible wound vac. Placement to come? Plan Of Care Pt. Safety maintain Bed low and locked Side rails up Telemetry VS as ordered Will notify LIP of pt. New onset CP, SOB, pulse ox < 92 percent Chronic todd to stay in Problem: Actual or potential alteration in health Goal: Absence of healthcare acquired conditions Outcome: Partially Met Goal: Knowledge of Interdisciplinary Plan of Care Outcome: Partially Met Goal: Knowledge of Enviroment Outcome: Partially Met Problem: Pressure Ulcer - Risk of Goal: Absence of pressure ulcer Outcome: Partially Met Problem: Pain Goal: Manage acute pain Outcome: Partially Met Goal: Manage chronic pain Outcome: Partially Met Goal: Reduced pain sensation Outcome: Partially Met Goal: Achievement of comfort function goal Outcome: Partially Met Problem: Falls, Risk of Goal: Absence of falls Outcome: Partially Met Problem: Breathing Pattern - Ineffective Goal: Effective breathing pattern Outcome: Partially Met * Plan of Care - Leonarda Barrios RN - 01/13/2022 6:04 PM EST Problem: Pain Goal: Manage acute pain Outcome: Partially Met Problem: Falls, Risk of Goal: Absence of falls Outcome: Partially Met * Plan of Care - Romana Claire RRT - 01/13/2022 12:41 PM EST Problem: Breathing Pattern - Ineffective Goal: Effective breathing pattern Outcome: Partially Met Note: 1. Assess respiratory status through observation of chest for excursion, breath sounds, cougheffort & sputum production, and respiratory rate. 2. Notify physician of clinical changes. Continue current therapy Category B Respiratory Orders (From admission, onward) Start Ordered 01/12/222305 Pulse oximetry continuous Continuous Comments: Notify physician if SpO2 less than 90% Question: Release to patient Answer: Immediate 01/12/22 2305 01/12/22 230 Incentive spirometry Every 1 hour (RT) Comments: 10 times every hour while awake Question: Release to patient Answer: Immediate 01/12/22 2305 01/09/22 2200 CPAP (KNOWN Sleep Disordered Breathing / Obstructive Apnea (Respiratory Care Device))At bedtime Comments: Notify physician for evidence of exclusion criteria, SpO2 less than goal, pH less than 7.25, PCO2 elevation; systolic BP less than 90 mmHg; decrease in LOC, no improvement in respiratory distress, inability to tolerate therapy, or other progressive medical instability. Question Answer Comment CPAP 8 FiO2 weaning to SpO2 goal of: 90% to 95% Diagnosis LORENA (obstructive sleep apnea) Release to patient Immediate 01/09/22 1634 01/09/22 1635 Incentive spirometry Every 2 hours while awake (RT) Question: Release to patient Answer: Immediate 01/09/22 1634 01/09/22 1620 Nasal cannula oxygen (Oxygen Panel (Low Flow)) Continuous Comments: Titrate UP as needed. 1. For patients that can meet SpO2 goals, place on a nasal cannula at L of flow as indicated by therange above, with the lowest flow to achieve the SpO2 goal. 2. If the SpO2 goal is not met by a nasal cannula, contact RT to place patient on a Venturi mask, with the lowest flow to achieve the SpO2 goal. Titrate DOWN as soon as able. Notify physician if oxygen increases by 3L or 10% FiO2. Question Answer Comment Goal SpO2 90-95% Minimum O2 flow, in Liters Per Minute: 0 Maximum O2 flow, in Liters Per Minute 6 Release to patient Immediate And Linked Group Details 01/09/22 1634 01/09/22 1620 Venturi mask oxygen (Oxygen Panel (Low Flow)) Continuous Comments: Titrate UP as needed. 1. For patients that can meet SpO2 goals, place on a nasal cannula at L of flow as indicated by therange above, with the lowest flow to achieve the SpO2 goal. 2. If the SpO2 goal is not met by a nasal cannula, contact RT to place patient on a Venturi mask, with the lowest flow to achieve the SpO2 goal. Titrate DOWN as soon as able. Notify physician if oxygen increases by 3L or 10% FiO2. Question Answer Comment Goal SpO2 90-95% Minimum O2 flow, in Liters Per Minute: 0 Maximum O2 flow, in Liters Per Minute 6 Release to patient Immediate And Linked Group Details 01/09/22 1634 * Plan of Care - Cedric Tan DPM - 01/12/2022 4:57 PM EST FOOT AND ANKLE SURGERY POST-OP PROGRESS NOTE ASSESSMENT: 61 y.o. 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 NWB to LLE DVT prophylaxis is to resume 24 hrs. Post procedure. No further OR planned this admission. Anticipate patient will be OK for discharge early next week pending pathology results and wound VAC placement. Continue IV abx, intraoperative 5th ray sent to micro, intraoperative calcaneal bone biopsy sent to micro, intraoperative post lavage swab sent to binta. -Cedric Tan DPM * Brief Op Note - Cedric Tan DPM - 01/12/2022 1:36 PM EST Brief Post Operative Note Patient Name: Mikayla Pappas : 1960 (61 y.o.) Date of Service: 01/12/2022 CSN: [id number] Procedure(s): LEFT FOOT 5TH RAY PARTIAL AMPUTATION LEFT FOOT INCISION AND DRAINAGE W/ CALCANEOUS BONE BIOPSY Pre-Operative Diagnoses: * LEFT FOOT ULCER W/ UNDERLYING OSTEOMYELITIS Post-Operative Diagnoses: * Same as Pre-Op Diagnosis Surgeon(s) and Role: * Ramana Jaramillo DPM - Primary * Yony Austin DPM - Resident - Assisting * Cedric Tan DPM - Resident - Assisting Anesthesiologist: Chase Rod MD CREW LEADER/CONTROL ROOM OPERATOR: Lillian Cho CRNA Student Nurse Dumper Mold Cleaner: Paul Lantigua II System Dispatcher: Arabella Venegas RN; Jairon Hutton RN Scrub Person: ST Jessica Anesthesia Specialist: Cristian Lima Operative findings: Soft, necrotic 5th PP and 5th MT head. Hard white and shiny 5th MT shaft. Necrotic tissue at plantar calcaneus. No exposed bone. Debrided to subcutaneous and including subcutaneous. Packed with betadine WTD. Intra and immediate post-operative complications: None Type of anesthesia used: General Estimated blood loss: 20 mL Estimated urine output: Specimen(s): ID Type Source Tests Collected by Time Destination 1 : left foot 5th ray to micro Bone Foot, Left BONE AEROBIC CULTURE, BONE ANAEROBIC CULTURE Ramana Jaramillo DPM 01/12/2022 1255 2 : left foot bone biopsy Bone Foot, Left BONE AEROBIC CULTURE, BONE ANAEROBIC CULTURE Ramana Jaramillo DPM 01/12/2022 1257 3 : left foot post lavage swab Swab Foot, Left SURGICAL SITE AEROBIC CULTURE, SURGICAL SITE ANAEROBIC CULTURE Ramana Jaramillo DPM 01/12/2022 1300 A : left foot 5th ray to micro Bone Foot, Left TISSUE EXAM (Canceled) Ramana Jaramillo DPM 01/12/2022 1249 Implant(s): * No implants in log * Drain(s): Urethral Catheter Coude 16 Fr. (Active) Reassessment Unchd 01/12/22 0020 Site Assessment Clean;Intact 01/11/222020 Collection Container Standard drainage bag 01/11/222020 Securement Method Leg strap 01/10/222023 Reason for Continued Urinary Catheter Chronic history of indwelling or supra- pubic catheter 01/11/222020 Output (mL) 350 mL 01/11/22 1100 Wound(s): Wound 08/16/20 Surgical Wound Penis (Active) Wound Heel Left (Active) Reassessment Unchd 01/12/22 0320 Dressing Status Clean;Dry;Intact 01/11/222020 Drainage Amount None 01/09/221950 Wound Bed Characteristics Black;Brown 01/09/22 195 Primary Dressing AMD dressing 01/09/221950 Secondary Dressing Gauze roll 01/10/222023 Wound 01/09/22 Anterior;Left;Plantar (Active) Reassessment Unchd 01/12/22 0320 Dressing Status Clean;Dry;Intact 01/11/222020 Drainage Amount None 01/10/222023 Wound Bed Characteristics Brown;Black 01/09/221950 Primary Dressing Gauze roll 01/10/222023 Wound 01/09/22 Ankle Anterior;Left (Active) Reassessment Unchd 01/12/22 0320 Dressing Status Clean;Dry;Intact 01/11/222020 Drainage Amount None 01/09/221950 Drainage Description Pool 01/09/22 1745 Odor None 01/09/22 174 Wound Bed Characteristics CRISTA (Unable to assess) 01/09/221950 Primary Dressing Non adherent 01/09/221744 Secondary Dressing Gauze roll 01/10/222023 Wound 01/12/22 Surgical Wound Foot Anterior;Left (Active) Cedric Tan DPM 01/12/2022 1:36 PM * Op Note - Ramana Jaramillo DPM - 01/12/2022 12:43 PM EST PATIENT: Mikayla Pappas [facility] [id number] 1960 (61 y.o.) DATE 01/12/2022 OPERATIVE REPORT Surgeon(s) and Role: * Ramana Jaramillo DPM - Primary * Cedric Tan DPM - Resident - Assisting ANESTHESIA TEAM Anesthesiologist: Chase Rod MD CREW LEADER/CONTROL ROOM OPERATOR: Lillian Cho CRNA Student Nurse Dumper Mold Cleaner: Palu Lantigua II PREOPERATIVE DIAGNOSIS LEFT FOOT ULCER W/ UNDERLYING OSTEOMYELITIS POSTOPERATIVE DIAGNOSIS LEFT FOOT ULCER W/ UNDERLYING OSTEOMYELITIS PROCEDURE Procedure(s): LEFT FOOT 5TH RAY PARTIAL AMPUTATION LEFT FOOT INCISION AND DRAINAGE W/ CALCANEOUS BONE BIOPSY PATHOLOGY ID Type Source Tests Collected by Time Destination 1 : left foot 5th ray to micro Bone Foot, Left BONE AEROBIC CULTURE, BONE ANAEROBIC CULTURE Ramana Jaramillo, [facility] 01/12/2022 1255 2 : left foot bone biopsy Bone Foot, Left BONE AEROBIC CULTURE, BONE ANAEROBIC CULTURE Ramana Jaramillo, [facility] 01/12/2022 1257 3 : left foot post lavage swab Swab Foot, Left SURGICAL SITE AEROBIC CULTURE, SURGICAL SITE ANAEROBIC CULTURE HAYDEN Kaye 01/12/2022 1300 A : left foot 5th ray to micro Bone Foot, Left TISSUE EXAM (Canceled) Ramana Jaramillo [facility] 01/12/2022 1249 ANESTHESIA General HEMOSTASIS Manual compression, electrocautery ESTIMATED BLOOD LOSS See anesthesia note. MATERIALS * No implants in log * INJECTABLES 20 cc of 0.5% Marcaine plain injected into the left foot postoperatively COMPLICATIONS None. INDICATION FOR PROCEDURE This is a 61 y.o.-year-old male patient presenting with osteomyelitis of the left fifth ray, chronic decubitus wound of the calcaneus with concern for possible osteomyelitis of the calcaneus. MRI with signal intensity changes at the left fifth metatarsal head and fifth metatarsal base, as well as the plantar calcaneus. Discussed in length treatment options for surgical intervention. Patient is amenable to left partial fifth ray resection, I&D, bone biopsy of the calcaneus. Patient has exhausted conservative measures at this time and has elected to undergo the above-mentioned surgical intervention. Risks, benefits, indications, and complications were discussed at length with the patient.No guarantees were implied or given. Consent was signed and placed in the chart. PROCEDURE IN DETAIL Patient was brought from the preoperative holding area to the OR and placed in a secure supine position. The above-mentioned anesthesia was administered per the anesthesia team. A time-out was performed to confirm the patient's name, date of , procedure, laterality, and all present were in agreement. The operative lower extremity was then prepped and draped utilizing normal aseptic sterile fashion, and a Betadine scrub was performed. Attention was directed to the left foot where a racquet type incision was made along the fifth ray using a #15 blade down through the subcutaneous tissue to the level of bone. This incision encompassed all aspects of necrotic and fibrotic tissue. The fifth toe was then disarticulated at the metatars alphalangeal joint. The bone within the fifth digit was noted to be soft in nature. We then utilized a #15 blade to reflect the soft tissues off of the fifth metatarsal head and neck region. We then utilized a lozano elevator to further reflect the soft tissues dorsally, medially, and laterally. We then utilized retractors to protect the soft tissues. We then utilized a microsagittal saw to resect the fifth metatarsal just proximal to the fifth metatarsal neck. This cut was made in a dorsal distalto proximal plantar fashion, and we ensured to appropriately bevel the fifth metatarsal. Of note, th e metatarsal head was noted to be soft in nature. No purulence or proximal extension was noted. Theremaining fifth metatarsal was noted to be hard, shiny, white, without evidence of necrosis. The amputated fifth digit and fifth metatarsal was passed to the back table, labeled and sent to microbiology. Necrotic and fibrotic tissues within the surgical wound bed were excised in full. Any tendinous structures within the wound bed were excised as far proximal as possible out of the surgicalwound bed. The remaining surgical wound bed was granular with adequate bleeding at the wound bed and skin edges. No signs of necrosis or purulence were noted. We then irrigated the surgical site with copious amounts of sterile saline using gravity lavage andcystoscopy tubing. We then removed our outer gloves and placed a sterile towel underneath the operative foot. Layered closure was obtained utilizing Vicryl suture for deep and subcutaneous tissues and nylon suture for skin closure. There was minimal tension at skin edges. We then addressed our attention to the plantar aspect of the calcaneus. Utilizing a #10 blade we made a full-thickness incision circumferentially around the wound, ensuring to encompass all aspects of necrotic and fibrotic tissue. We then excisionally debrided the wound to the level of subcutaneoustissue and including subcutaneous tissue. There was necrotic tissue noted within this wound bed. Elenita utilized a rongeur to remove all necrotic and fibrotic tissue within the wound bed. There was no exposed bone within the wound bed, no tendinous structures identified. We then palpated and identified the lateral wall of the calcaneus. Utilizing a Jamshidi needle, we percutaneously entered the lateral wall of the calcaneus in standard fashion. Once we broke through the cortical bone, we removed the trocar and began rotating the Jamshidi needle clockwise and counterclockwise through the medullary bone. We then twisted the Jamshidi needle, again in a clockwise andcounterclockwise fashion and removed the Jamshidi needle. The bone biopsy of the calcaneus was passed to the back table, labeled appropriately and sent to microbiology for further evaluation. We thenflushed the surgical site with copious amounts of normal saline utilizing gravity lavage and cystoscopy tubing. We then obtained a post and lavage swab culture which was passed to the back table, labeled appropriately and sent to microbiology. Hemostasis was maintained throughout the procedure with manual compression and electrocautery. A postoperative injection was performed utilizing 20 cc of 0.5% Marcaine plain injected into the operative lower extremity. Dressing consisted of Betadine soaked gauze packing to the heel, Betadine soaked Adaptic to the partial ray amputation site, DSD, Kerlix, Spencer. The patient tolerated the procedure and anesthesia well and without complications. The patient was transported from the OR to PACU with vital signs stable and vascular status intact to the operative lower extremity. The patient is to be readmitted to the floor per PACU protocol. FUTURE PLAN No further OR planned this admission. Anticipate patient will be OK for discharge early next week pending intraoperative culture results and wound VAC placement. Continue IV abx, tailor cultures as able. We will plan to round on patient in the a.m. and change dressing on Saturday. * [facility] - Howard Schulay, CSW - 01/12/2022 10:27 AM EST OCCUPATIONAL THERAPY VISIT VARIANCE NOTE Attempted to see patient at this time, but unable secondary to: Patient Unavailable (comment) (Pt awaiting transport for procedure.). Will follow up as appropriate. * Plan of Care - Cher Pennington RN - 01/11/2022 6:40 AM EST Problem: Pressure Ulcer - Risk of Goal: Absence of pressure ulcer Outcome: Partially Met Problem: Pain Goal: Manage chronic pain Outcome: Partially Met Goal: Reduced pain sensation Outcome: Partially Met Goal: Achievement of comfort function goal Outcome: Partially Met Problem: Falls, Risk of Goal: Absence of falls Outcome: Partially Met * Sign Off Note - Christine Cunningham PA-C - 01/10/2022 2:58 PM EST Vascular Sign-Off Conditions treated: PVD Adequate perfusion, peripheral pulses palpable Surgeries/interventions: none Discharge Medications: Continue ASA and statin Incision / Wound care instructions: No dressing needed Follow up appointment: Follow up with Dr. Cosby in 6 wks. Follow up imaging: None Christine Cunningham PA-C 01/10/22 * Plan of Care - Cher Pennington RN - 01/10/2022 4:54 AM EST Problem: Pressure Ulcer - Risk of Goal: Absence of pressure ulcer Outcome: Partially Met Problem: Pain Goal: Manage chronic pain Outcome: Partially Met Goal: Reduced pain sensation Outcome: Partially Met Goal: Achievement of comfort function goal Outcome: Partially Met * Plan of Care - Yuliana Manzano RN - 01/09/2022 6:31 PM EST Pt oriented to unit. Pt denied pain. * Quick Note - Dena Razo RN - 01/09/2022 6:12 PM EST Pt is placed on Diabetic diet 75 gram now, and will be NPO at midnight per [facility] [place] * Quick Note - Yuliana Manzano RN - 01/09/2022 6:06 PM EST Patient oriented to the 9th floor: yes Patient oriented to room and call system: yes Appropriate Wrist bands present: yes Dual RN skin check off with: yes Dena WALKERdirector toxicology Consult needed?: yes Visitor Identified and documented: yes cousin Kylie & friend Sunny Patient belongings documented: yes What Belongings are present?: multiple clothes, wallet w/ $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 I personally evaluated and examined the patient. I performed all aspects of the MDM as documented. 61-year-old male with history of peripheral vascular disease, and chronic foot ulcers presents ED with worsening foot ulcer and necrotic wound of the left foot. Patient states that his home health aide noted that today, he contacted his np who recommended he come to the ER. Denies any severe pain. Denies any fevers or chills. On my evaluation, patient appears in no acute distress. Hemodynamically within normal limits. Heartis regular rate and sinus rhythm. Lungs are clear to auscultation bilaterally. Abdomen is soft, nontender, nondistended. Neurologically patient is awake, alert oriented x3, and nonfocal. Examination of his left foot shows necrotic lesion on the heel of the foot, no drainage. At this time, x-ray of the foot is pending. Blood work obtained. He will be treated with IV antibiotics admitted. Podiatry is consulted. He will be admitted stable condition. XR Foot Left 3+ Views (Standard) (Results Pending) Recent Results (from the past 12 hour(s)) CBC Auto Differential Collection Time: 01/09/22 1:10 PM Result Value Ref Range WBC 11.29 (H) 4.50 - 11.00 K/mcL RBC 2.90 (L) 4.50 - 5.90 M/mcL Hemoglobin 8.4 (L) 13.5 - 17.5 g/dL Hematocrit 25.8 (L) 41.0 - 53.0 % MCV 89.0 80.0 - 100.0 fL MCH 29.0 26.0 - 34.0 pg MCHC 32.6 31.0 - 37.0 g/dL Platelets 316 150 - 400 K/mcL RDW - CV 13.4 11.6 - 14.8 % MPV 8.5 (L) 9.4 - 12.4 fL Neutrophils 67.8 % Lymphocytes 17.0 % Monocytes 10.1 % Eosinophils 3.7 % Basophils 0.2 % IG Percent 1.20 % Neutrophils Abs 7.65 (H) 1.70 - 7.00 K/mcL Lymphocytes Abs 1.92 0.90 - 4.00 K/mcL Monocytes Abs 1.14 (H) 0.30 - 0.90 K/mcL Eosinophils Abs 0.42 0.00 - 0.50 K/mcL Basophils Abs 0.02 0.00 - 0.30 K/mcL IG Absolute 0.14 0.00 - 0.30 K/mcL Nucleated RBC 0.0 % Nucleated RBC Abs 0.00 0.00 - 0.00 K/mcL . documented in this [id number] Hospital course Narrative* Johnathan Zepeda DO - 01/17/2022 1:36 PM EDT Images from the original note were not included. [facility] [place] Mikayla Pappas Admitted: 01/09/2022 Discharge Date: 01/17/22 PCP Handoff Recommended Outpatient Testing Follow up with Podiatry wound Clinic Results Pending At Discharge None Clinical Summary Mikayla Pappas is a 61 y.o. male patient of Greyson Dominguez MD with history of PVD, Diabetestype II, CVA, depression, LORENA, R BKA, anemia, HTN, HLD, urinary retention presented with worsening left diabetic foot ulcer. Left Diabetic Foot ulcer, Acute on Chronic L foot OM Presented w/worsening left foot wound Afebrile, HDS; no SIRS or sepsis on admission ESR/CRP mildly elevated, WBC 11K XR L foot w/o OM Podiatry consulted MRI left foot/heel with acute osteo in the plantar calcaneus and 5th metatarsal Wound cx (01/09) growing MRSA Bone cx from 5th ray amp (01/12) growing MRSA Surgical site from L heel (01/12) growing coag neg staph Vascular surgery consulted; no vascular surgical intervention recommended at this time Continued aspirin and statin S/P OR (01/12) per podiatry for L partial 5th ray resection and L I&D of heel Wound vac placed on L heel wound Continue Ancef/Flagyl/Vanc, ok to discharge on doxy x 10 days ID following Follow up in wound care clinic Anemia Hgb 8.4 on admission Iron panel with low iron No signs of bleeding noted Iron supplementation started Hgb trended to ~ 7.5 and stable T2DM, insulin dependent Diabetic Peripheral Neuropathy A1c 6.7 Home glipizide and januvia held on admission Lantus increased SSI Urinary Retention Chronic, managed w/chronic indwelling todd Changed 1wk prior to admission at [facility] Maintain todd H/o CVA Generalized Weakness 10/2020, treated at [facility] Residual bilateral weakness, no deficits Pt resides at [facility] for rehab Continue asa and lipitor Essential HTN Normotensive on arrival Per [facility] med list pt only on lasix, previously on norvasc 10, losartan 25, monitor for need to restart medications. BP controlled off meds HLD Continue home statin Depression Continue home cymbalta LORENA Continue CPAP at bedtime and with naps Pt desats to ~89% while sleeping BAILEE, resolvved Likely pre-renal in the setting of diuretic use Cr 1.3 on admission, baseline WNL Lasix held on amdission Resolved Discharge Medications Discharge Medications New Medications Details doxycycline hyclate 100 MG tablet Commonly known as: VIBRA-TABS Take 1 (one) tablet (100 mg total) by mouth 2 (two) times a day for 10 days . Quantity: 20 tablet ferrous sulfate 325 (65 FE) MG tablet Start taking on: January 18, 2022 Take 1 (one) tablet (325 mg total) by mouth daily with breakfast Start: 01/18/22. Quantity: 30 tablet naloxone 4 mg/actuation Epes Commonly known as: NARCAN Administer 1 spray into one nostril for known or suspected opioid overdose. If patient worsens or does not respond, may repeat in 2-3 minutes. . Quantity: 2 each oxyCODONE-acetaminophen 5-325 mg per tablet Commonly known as: PERCOCET Take 1 (one) tablet by mouth every 6 (six) hours as needed for pain (Days supply per fill: 3) . Quantity: 12 tablet Medications To Continue Details alcohol swabs Padm Check your sugars up to 4 times a day . Quantity: 100 each aspirin 81 MG EC tablet Take 81 mg by mouth daily . atorvastatin 80 MG tablet Commonly known as: LIPITOR Take 80 mg by mouth daily . bisacodyL 10 mg/30 mL Enem Commonly known as: FLEET Insert 10 mg into the rectum once as needed . blood sugar diagnostic strips Check your sugars up to 4 times a day . Quantity: 100 each blood-glucose meter Misc Check your sugars up to 4 times a day . Quantity: 1 each cyanocobalamin 500 MCG tablet Commonly known as: B-12 Take 1 tablet by mouth daily . diclofenac sodium 1 % Gel Apply topically 4 (four) times a day . docusate sodium 100 MG capsule Commonly known as: COLACE Take 100 mg by mouth 2 (two) times a day . * DULoxetine 30 mg Cdrs Take 30 mg by mouth at bedtime Along with 60 mg to make 90mg at bedtime . * DULoxetine 60 MG capsule Commonly known as: CYMBALTA Take 60 mg by mouth at bedtime Along with 30 mg to make 90mg at bedtime . ergocalciferol 1,250 mcg (50,000 unit) capsule Commonly known as: ERGOCALCIFEROL Take 50,000 Units by mouth once a week . * gabapentin 300 MG capsule Commonly known as: NEURONTIN Take 300 mg by mouth at bedtime . * gabapentin 100 MG capsule Commonly known as: NEURONTIN Take 100 mg by mouth daily . glipiZIDE 10 MG 24 hr tablet Commonly known as: GLUCOTROL XL Take 10 mg by mouth daily . guaiFENesin 600 mg 12 hr tablet Commonly known as: MUCINEX Take 600 mg by mouth 2 (two) times a day as needed for congestion . hydrocortisone 1 % cream Apply topically 2 (two) times a day . lancets Misc Check your sugars up to 4 times a day . Quantity: 100 each Lantus Solostar U-100 Insulin 100 unit/mL (3 mL) Inpn Generic drug: insulin glargine Inject 22 Units under the skin nightly . lidocaine 5 % patch Commonly known as: LIDODERM Place 1 patch on the skin every 12 (twelve) hours Remove & Discard patch within 12 hours or as directed by MD- to back . loperamide 2 mg tablet Commonly known as: IMODIUM A-D Take 2 mg by mouth 4 (four) times a day as needed for diarrhea Max 4 tablets in 24 hours . magnesium hydroxide 400 mg/5 mL Susp Commonly known as: MOM Take 30 mL by mouth daily as needed . melatonin 5 mg Tab Take 5 mg by mouth at bedtime . ondansetron 4 MG disintegrating tablet Commonly known as: ZOFRAN-ODT Dissolve 4 mg on top of tongue every 6 (six) hours as needed for nausea . oxybutynin 10 MG 24 hr tablet Commonly known as: DITROPAN-XL Take 10 mg by mouth daily . pen needle, diabetic 32 gauge x /32 Ndle Change pen needles daily as needed up to 4 times. . Quantity: 100 each polyethylene glycol 17 gram powder Commonly known as: MIRALAX Take 17 g by mouth daily . sitagliptin 50 MG tablet Commonly known as: JANUVIA Take 50 mg by mouth daily . tiZANidine 2 MG tablet Commonly known as: ZANAFLEX Take 2 mg by mouth 2 (two) times a day . * There are duplicate medications prescribed to the patient Stopped Medications acetaminophen 325 MG tablet Commonly known as: TYLENOL collagenase ointment Commonly known as: SANTYL furosemide 20 MG tablet Commonly known as: LASIX HYDROcodone-acetaminophen 5-325 mg per tablet Commonly known as: TING Physician(s) Follow Up: Fatmata Cosby MD [address] [place] [address] Call in 6 week(s) You were evaluated for the blood flow in your legs. Your carotid arteries were also scanned. We will scheudle a follow up appt for 6 wks. Please call to confirm your appt. [facility] [address] [facility] [address] Schedule an appointment as soon as possible for a visit in 1 week(s) Please schedule a follow up appointment with Dr. Jaramillo [place] [facility] Greyson Dominguez MD [address] [place] [id number] Follow up Please call for follow up in 5-7 days [facility] [address] [facility] [address] Follow up Please call for hospital related questions Condition at Discharge: Good Disposition: SNF On day of discharge, I performed a final bedside evaluation including a physical exam. I reviewed discharge recommendations with the patient in person. Patient instructions, including activity, were given to the patient/family at discharge. Time spent on discharge: > 30 minutes Completed by: Johnathan Zepeda on 01/17/22, 1:36 PM documented in this [id number] History of Present illness Narrative* Norah Blair - 01/17/2022 1:31 PM EDT Medical Transportation set up by [facility] per hospital request: Date:01/17/2022 Time:2pm [facility] [place] ([phone]) Special needs/equipment:n/a Truck Type: Ambulance Companies called: Roundtrip * Magdalena Kinney - 01/17/2022 12:29 PM EDT Transport request received and is being scheduled. Trip information will follow as soon as the timeis secured. * Rakesh Muñoz MD - 01/17/2022 11:38 AM EDT DAILY PROGRESS NOTE Patient Name: Mikayla Pappas MR #: [id number] Assessment and Plan: 1. Left foot osteomyelitis-he has had partial fifth ray resection which hopefully will be curative but also has possible calcaneal osteomyelitis, so far cultures with MRSA and coag negative staph currently on vancomycin and Zosyn 2. Diabetes-monitor control glucose 3. Peripheral vascular disease-history of 4. CVA-history of 5. Hyperlipidemia-on statin Disposition Comments: Appears fifth ray resection has removed nidus of infection and calcaneal debridement culture negative(no path bx); at this point can treat with oral doxycycline for 10 days and he will need ongoing careful monitoring/follow-up of his heel wound Subjective/Objective: Perpetual Assessment: Mikayla Pappas is a 61 y.o. male on hospital day 8 with hyperlipidemia, CVA, diabetes, peripheral vascular disease with left foot osteomyelitis. Chief Complaint: Osteomyelitis HPI: Discussed situation with him in regard to heel wound Review of Systems: The following system(s) were reviewed: Constitutional, GI,Skin,Respiratory Physical Examination: BP 130/69 (BP Location: Left arm, Patient Position: Lying) Pulse 66 Temp 97.8 F (36.6 C) (Oral) Resp 15 Ht 5' 8 Wt 81.6 kg (180 lb) SpO2 97% BMI 27.37 kg/m General: NAD Eyes: Conjunctiva and sclera clear Lungs: Clear without rales, rhonchi or wheezes; no increased respiratory effort Cardiovascular: RRR; no edema Abdomen: soft; non tender Extremities: No cyanosis or clubbing Skin: No rash Neurologic: Lethargic, right-sided weakness more than left Psych: Mood and affect appropriate Results/Medications Reviewed: Current Facility-Administered Medications Medication Dose Route Frequency Provider Last Rate Last Admin acetaminophen (TYLENOL) tablet 650 mg 650 mg Oral Q4H PRN Franca Earl CNP 650 mg at 01/13/22 0035 aluminum-magnesium hydroxide-simethicone (MAALOX PLUS) 200-200-20 mg/5 mL suspension 30 mL 30 mL Oral Q4H PRN Franca Earl CNP aspirin EC tablet 81 mg 81 mg Oral Daily Franca Earl CNP 81 mg at 01/17/22 0856 atorvastatin (LIPITOR) tablet 80 mg 80 mg Oral Nightly Franca Earl CNP 80 mg at 01/16/222137 DULoxetine (CYMBALTA) DR capsule 90 mg 90 mg Oral at bedtime Franca Earl CNP 90 mg at 01/16/222138 enoxaparin (LOVENOX) syringe 40 mg 40 mg Subcutaneous Daily Cedric Tan DPM 40 mg at 01/17/2256 ferrous sulfate tablet 325 mg 325 mg Oral Daily with breakfast Adalberto Malgorzata Hernandez, DO 325 mg at 01/17/22 0856 gabapentin (NEURONTIN) capsule 100 mg 100 mg Oral Nightly Franca Earl CNP 100 mg at 01/16/222137 hydrOXYzine (ATARAX) tablet 25 mg 25 mg Oral TID PRN Adalberto Malgorzata Hernandez, insulin glargine (LANTUS) injection 24 Units 24 Units Subcutaneous Nightly Johnathan Zepeda DO 24 Units at 01/16/222137 insulin lispro (AdmeLOG,HumaLOG) injection 0-15 Units 0-15 Units Subcutaneous at bedtime Franca Cormier CNP 2 Units at 01/12/22 2100 insulin lispro (AdmeLOG,HumaLOG) injection 0-30 Units 0-30 Units Subcutaneous TID AC Johnathan Zepeda, DO 6 Units at 01/17/22 0855 melatonin Tab 5 mg 5 mg Oral Nightly Adalberto Mcgarry David, DO 5 mg at 01/16/222137 naloxone (NARCAN) injection 0.1 mg 0.1 mg Intravenous PRN Cedric Tan DPM And naloxone (NARCAN) injection 0.4 mg 0.4 mg Intravenous PRN Cedric Tan DPM ondansetron (ZOFRAN-ODT) disintegrating tablet 4 mg 4 mg Oral Q6H PRN Franca Earl CNP 4 mg at01/14/22 0741 Or ondansetron (ZOFRAN) injection 4 mg 4 mg Intravenous Q6H PRN Franca Earl CNP oxyCODONE (ROXICODONE) immediate release tablet 5-10 mg 5-10 mg Oral Q4H PRN Cedric Tan DPM 10mg at 01/15/22 1049 piperacillin-tazobactam (ZOSYN) IVPB 3.375 g (premix) 3.375 g Intravenous Q8H Rakesh Muñoz MD Stopped at 01/17/22 0852 senna (SENOKOT) tablet 8.6 mg 1 tablet Oral BID PRN Franca Earl CNP 8.6 mg at 01/11/22 0823 senna-docusate (SENNA-S) 8.6-50 mg per tablet 1 tablet 1 tablet Oral BID Franca Earl CNP 1 tablet at 01/17/22 0856 sodium chloride (PF) (NS) flush 5 mL 5 mL Intravenous PRN Franca Earl CNP And sodium chloride (PF) (NS) flush 5 mL 5 mL Intravenous Q8H KAM Franca Earl CNP 5 mL at 01/16/22 0558 And sodium chloride 0.9% (NS) 0-150 mL/hr Intravenous PRN Franca Earl CNP Stopped at 01/17/22 0852 tolterodine (DETROL LA) 24 hr capsule 2 mg 2 mg Oral Daily Franca Earl CNP 2 mg at 01/17/22 0856 vancomycin (VANCOCIN) 1000 mg in sodium chloride (NS) 0.9% 250mL (vialmate) 1,000 mg Intravenous Q24H Len Dsouza [facility] 250 mL/hr at 01/16/22 2244 1,000 mg at 01/16/22 2244 Lab Results Component Value Date WBC 10.25 01/15/2022 HGB 7.4 (L) 01/15/2022 HCT 22.9 (L) 01/15/2022 MCV 90.9 01/15/2022 PLT 327 01/15/2022 Lab Results Component Value Date GLUCOSE 165 (H) 01/15/2022 CALCIUM 9.0 01/15/2022 NA 135 01/15/2022 K 4.8 01/15/2022 CL 103 01/15/2022 BUN 34 (H) 01/15/2022 CREATININE 1.15 01/17/2022 Cultures: MRSA coag negative staph Radiology: Ultrasound duplex carotid Final Result XR Chest 1 View Final Result Low lung volume portable chest radiograph with grossly clear lungs. Workstation ID: [id number] MR Foot Left Without Contrast Final Result 1. Acute osteomyelitis in the plantar calcaneus adjacent to the ulcer. 2. Acute osteomyelitis in the 5th metatarsal head and neck and proximal 5th phalanx adjacent to theulcer. 3. No soft tissue abscess. 4. Nonspecific increased signal in the distal phalanx of the 1st, 2nd and 3rd digits. This could bedue to artifact. This finding can also be seen with Raynaud's phenomenon or frostbite injury. 5. Intramuscular edema and atrophy in the plantar foot musculature compatible with neuropathy. [facility] Workstation ID: [id number] MR Heel Left Without Contrast Final Result 1. Acute osteomyelitis in the plantar calcaneus adjacent to the ulcer. 2. Acute osteomyelitis in the 5th metatarsal head and neck and proximal 5th phalanx adjacent to theulcer. 3. No soft tissue abscess. 4. Nonspecific increased signal in the distal phalanx of the 1st, 2nd and 3rd digits. This could bedue to artifact. This finding can also be seen with Raynaud's phenomenon or frostbite injury. 5. Intramuscular edema and atrophy in the plantar foot musculature compatible with neuropathy. [facility] Workstation ID: [id number] Ultrasound duplex arterial legs bilat Final Result US Doppler ankle/brachial index Final Result XR Foot Left 3+ Views (Standard) Final Result 1. Suspected shallow soft tissue ulceration of the heel with forefoot soft tissue swelling. No radiographic evidence of osteomyelitis of the calcaneus. 2. Chronic appearing erosion along the lateral aspect of the 2nd metatarsal head new from 07/26/2020. If there is a nearby soft tissue ulceration osteomyelitis is not excluded. Alternatively, this raises the possibility of gout or less likely an inflammatory arthritis. Workstation ID: [id number] Rakesh Muñoz MD; pager * Jada Lewis RN - 01/17/2022 9:40 AM EDT Care Management Progress Note Patient Name: Mikayla Pappas Working Discharge Plan: D/C Disposition: Nursing Home Care Agency/Destination: [facility] HME: None Transportation Plan: Does the patient need discharge transport arranged?: Yes Transportation Type: Ambulance Options Reviewed: Possible expense, Explained services/benefits, Confirm Consent Form Signature Pending/Established Referrals: Patient to return to [facility] Barriers to Discharge/Plan for Follow Up: Received voicemail from Radha Jacobs at [facility] ([phone]) stating he does not need a HENS just a covid test and transport time once pt is medially ready. Per previous CM note, SNF received pre-cert late 01/16. Awaiting ID rec for possible IV atb's at facility, will need PICC line placed if antibiotics needed. Per liaison will need to remove would vac on discharge as well and apply wet to dry dressing for facility wound vac placement. 1130: Pt discussed in MDR, per Dr Zepeda pt will need PO antibiotics, ok for pt to go back to facilitytoday. Requested transport, requested Covid swab to be completed, will call facility back once transport confirmed. 1330: Got late notice for 2pm transport, MD ok w/ this, Covid swab ordered, RN to collect, Rn awareof last min transport notification, Transport packet on paper chart, facility aware and ok w/ Transport to come at 2pm as long as Covid swab back. 1500: Covid swab negative, transport stayed for result, notified facility of transport. Returning to facility today. * Johnathan Zepeda, DO - 01/17/2022 6:47 AM EDT [facility] [place] Assessment and Plan Mikayla Pappas is a 61 y.o. male patient of Greyson Dominguez MD with history of PVD, Diabetestype II, CVA, depression, LORENA, R BKA, anemia, HTN, HLD, urinary retention presented with worsening left diabetic foot ulcer. Left Diabetic Foot ulcer, Acute on Chronic L foot OM Presented w/worsening left foot wound Afebrile, HDS; no SIRS or sepsis on admission ESR/CRP mildly elevated, WBC 11K XR L foot w/o OM Podiatry consulted MRI left foot/heel with acute osteo in the plantar calcaneus and 5th metatarsal Wound cx (01/09) growing MRSA Bone cx from 5th ray amp (01/12) growing MRSA Surgical site from L heel (01/12) growing coag neg staph Vascular surgery consulted; no vascular surgical intervention recommended at this time Continued aspirin and statin S/P OR (01/12) per podiatry for L partial 5th ray resection and L I&D of heel Wound vac placed on L heel wound Continue Ancef/Flagyl/Vanc, ok to discharge on doxy x 10 days ID following Follow up in wound care clinic Anemia Hgb 8.4 on admission Iron panel with low iron No signs of bleeding noted Iron supplementation started Hgb trended to ~ 7.5 and stable T2DM, insulin dependent Diabetic Peripheral Neuropathy A1c 6.7 Home glipizide and januvia held on admission Lantus increased SSI Urinary Retention Chronic, managed w/chronic indwelling todd Changed 1wk prior to admission at [facility] Maintain todd H/o CVA Generalized Weakness 10/2020, treated at [facility] Residual bilateral weakness, no deficits Pt resides at [facility] for rehab Continue asa and lipitor Essential HTN Normotensive on arrival Per [facility] med list pt only on lasix, previously on norvasc 10, losartan 25, monitor for need to restart medications. BP controlled off meds HLD Continue home statin Depression Continue home cymbalta LORENA Continue CPAP at bedtime and with naps Pt desats to ~89% while sleeping BAILEE, resolvved Likely pre-renal in the setting of diuretic use Cr 1.3 on admission, baseline WNL Lasix held on amdission Resolved Family Contact Information Regine Pappas (Child) [phone] Code Status: Full Code - Unverified Quality Measures DVT Prophylaxis: - enoxaparin (LOVENOX) syringe 40 mg Todd Catheter: Chronic todd Disposition Discharge Location: [facility] Estimated Discharge Date: Medically ready (01/17) Outpatient Testing: Follow up with podiatry Subjective Pt complaining of tiredness. Denies chest pain or shortness of breath. Pain well controlled. Review of Systems All systems have been reviewed and are negative except as noted in HPI or below Objective BP 127/71 (BP Location: Right arm, Patient Position: Lying) Pulse 78 Temp 98.2 F (36.8 C) (Oral) Resp 14 Ht 5' 8 Wt 81.6 kg (180 lb) SpO2 97% BMI 27.37 kg/m Physical Examination General Appearance: alert; chronically ill appearing; in no acute distress HEENT: Head- normocephalic; Eyes- EOMI, sclera anicteric; Ears- hearing intact; Nose- no nasal discharge; Throat- mucous membranes moist Cardiovascular: regular rate and rhythm; normal S1, S2; no murmurs, rubs, clicks or gallops; no peripheral edema Respiratory: lungs clear to auscultation; without wheezes, rales or rhonchi; on room air Abdomen: soft, non-tender, non-distended; positive bowel sounds Neurological: oriented x 3; normal speech; no focal neuro deficits Musculoskeletal: R BKA, L foot s/p 5th ray amputation, dressing C/D/I, L heel wound, wound vac in place Skin: warm and dry, no rashes Psych: normal mood and affect Results/Medications Reviewed 01/17/2022 6:47 AM Laboratory, Radiology, Medications and Transcriptions * Renetta Andrade RD - 01/16/2022 1:52 PM EDT Nutrition Care Follow Up Monitoring and Evaluation: PO intake was 75% or greater at most meals Will follow per protocol and monitor wts, labs, and po intake. Nutrition Diagnosis: increased nutrient need related to altered skin integrity as evidenced by s/p R BKA 05/2021, wound re opening. Not Resolved Nutrition Intervention: Continue Meal and Snacks Nutrition Prescription: Diet: DM 75 g/meals Oral nutrition supplement: geletein bid Tube Feeding: none Nutrition Goals: PO intake > 75% most meals Start Date:01/16/2022 Expected End Date:01/22/2022 Nutrition Education: No needs at this time Assessment: Pertinent clinical information: chart reviewed Height: 5' 8 Current weight: 81.6 kg (180 lb) BMI Body mass index is 27.37 kg/m . Weight hx: noted Wt Readings from Last 5 Encounters: 01/09/22 81.6 kg (180 lb) 01/09/22 87.1 kg (192 lb) 10/19/20 83.3 kg (183 lb 10.3 oz) 10/17/20 86.2 kg (190 lb) 09/13/20 88.5 kg (195 lb) Current diet order: DM 75 g/meal Recent intake: 75-100% Current intake Likely meets estimated needs. Patient/family comments: appetite good visited while eating lunch GI Function: LBM 01/15 Labs: Recent Labs 01/15/22 0440 01/16/22 0528 NA 135 -- K 4.8 -- BICARB 22 -- CL 103 -- GLUCOSE 165* -- BUN 34* -- CREATININE 1.05 1.01 Scheduled Meds: aspirin 81 mg Oral Daily atorvastatin 80 mg Oral Nightly DULoxetine 90 mg Oral at bedtime enoxaparin (LOVENOX) injection 40 mg Subcutaneous Daily ferrous sulfate 325 mg Oral Daily with breakfast gabapentin 100 mg Oral Nightly insulin glargine 24 Units Subcutaneous Nightly lispro insulin 0-15 Units Subcutaneous at bedtime insulin lispro 0-30 Units Subcutaneous TID AC melatonin 5 mg Oral Nightly piperacillin-tazobactam (ZOSYN) extended infusion 3.375 g Intravenous Q8H senna-docusate 1 tablet Oral BID sodium chloride (PF) 5 mL Intravenous Q8H KAM tolterodine 2 mg Oral Daily vancomycin 1,000 mg Intravenous Q24H Continuous Infusions: sodium chloride 0.9 % 20 mL/hr (01/16/22 1234) Estimated Energy Needs Total Energy Estimated Needs: 9595-7049 franky/d Method for Estimating Needs: 25-30 franky/kg ibw Total Protein Estimated Needs: 82-102 gm/d Method for Estimating Needs: 1-1.2 gm/kg ibw Deepthi Andrade RD,LD [phone] * Rakesh Muñoz MD - 01/16/2022 9:29 AM EDT DAILY PROGRESS NOTE Patient Name: Mikayla Pappas [facility]: [id number] [id number] Assessment and Plan: 1. Left foot osteomyelitis-he has had partial fifth ray resection which hopefully will be curative but also has possible calcaneal osteomyelitis, so far cultures with MRSA and coag negative staph currently on vancomycin and Ancef Flagyl 2. Diabetes-monitor control glucose 3. Peripheral vascular disease-history of 4. CVA-history of 5. Hyperlipidemia-on statin Disposition Comments: Await data-he may need a course of intravenous antibiotic therapy, suspect the Ancef/Flagyl can be discontinued and add Zosyn Subjective/Objective: Perpetual Assessment: Mikayla Pappas is a 61 y.o. male on hospital day 7 with hyperlipidemia, CVA, diabetes, peripheral vascular disease with left foot osteomyelitis. Chief Complaint: Osteomyelitis HPI: Quiet lethargic Review of Systems: The following system(s) were reviewed: Constitutional, GI,Skin,Respiratory Physical Examination: BP 132/76 (BP Location: Left arm, Patient Position: Lying) Pulse 67 Temp 97.7 F (36.5 C) (Oral) Resp 16 Ht 5' 8 Wt 81.6 kg (180 lb) SpO2 97% BMI 27.37 kg/m General: NAD Eyes: Conjunctiva and sclera clear Lungs: Clear without rales, rhonchi or wheezes; no increased respiratory effort Cardiovascular: RRR; no edema Abdomen: soft; non tender Extremities: No cyanosis or clubbing Skin: No rashes or nodules; normal turgor Neurologic: Lethargic, right-sided weakness more than left Psych: Mood and affect appropriate Results/Medications Reviewed: Current Facility-Administered Medications Medication Dose Route Frequency Provider Last Rate Last Admin acetaminophen (TYLENOL) tablet 650 mg 650 mg Oral Q4H PRN Franca Earl CNP 650 mg at 01/13/22 0035 aluminum-magnesium hydroxide-simethicone (MAALOX PLUS) 200-200-20 mg/5 mL suspension 30 mL 30 mL Oral Q4H PRN Franca Earl CNP aspirin EC tablet 81 mg 81 mg Oral Daily Franca Earl CNP 81 mg at 01/16/22 0840 atorvastatin (LIPITOR) tablet 80 mg 80 mg Oral Nightly Franca Earl CNP 80 mg at 01/15/222052 ceFAZolin (ANCEF) IVPB 2 g (premix) 2,000 mg Intravenous Q8H Franca Earl CNP Stopped at 01/16/22 06 DULoxetine (CYMBALTA) DR capsule 90 mg 90 mg Oral at bedtime Franca Earl CNP 90 mg at 01/15/222056 enoxaparin (LOVENOX) syringe 40 mg 40 mg Subcutaneous Daily Cedric Tan DPM 40 mg at 01/16/22 0839 ferrous sulfate tablet 325 mg 325 mg Oral Daily with breakfast Adalberto Malgorzata Hernandez DO 325 mg at 01/16/22 0840 gabapentin (NEURONTIN) capsule 100 mg 100 mg Oral Nightly Franca Earl CNP 100 mg at 01/15/222052 hydrOXYzine (ATARAX) tablet 25 mg 25 mg Oral TID PRN Adalberto Hernandez DO insulin glargine (LANTUS) injection 24 Units 24 Units Subcutaneous Nightly Johnathan Zepeda DO 24 Units at 01/15/222054 insulin lispro (AdmeLOG,HumaLOG) injection 0-15 Units 0-15 Units Subcutaneous at bedtime Franca Cormier CNP 2 Units at 01/12/22 2100 insulin lispro (AdmeLOG,HumaLOG) injection 0-30 Units 0-30 Units Subcutaneous TID AC Johnathan Zepeda, DO 6 Units at 01/16/22 0840 melatonin Tab 5 mg 5 mg Oral Nightly Adalberto Malgorzata Hernandez, DO 5 mg at 01/15/222052 metroNIDAZOLE (FLAGYL) tablet 500 mg 500 mg Oral TID with meals Adalberto Malgorzata Hernandez DO 500 mgat 01/16/22 0840 naloxone (NARCAN) injection 0.1 mg 0.1 mg Intravenous PRN Cedric Tan DPM And naloxone (NARCAN) injection 0.4 mg 0.4 mg Intravenous PRN Cedric Tan DPM ondansetron (ZOFRAN-ODT) disintegrating tablet 4 mg 4 mg Oral Q6H PRN Franca Earl CNP 4 mg at01/14/22 0741 Or ondansetron (ZOFRAN) injection 4 mg 4 mg Intravenous Q6H PRN Franca Earl CNP oxyCODONE (ROXICODONE) immediate release tablet 5-10 mg 5-10 mg Oral Q4H PRN Cedric Tan DPM 10mg at 01/15/22 1049 senna (SENOKOT) tablet 8.6 mg 1 tablet Oral BID PRN Franca Earl CNP 8.6 mg at 01/11/22 0823 senna-docusate (SENNA-S) 8.6-50 mg per tablet 1 tablet 1 tablet Oral BID Franca Earl CNP 1 tablet at 01/16/22 0839 sodium chloride (PF) (NS) flush 5 mL 5 mL Intravenous PRN Franca Earl CNP And sodium chloride (PF) (NS) flush 5 mL 5 mL Intravenous Q8H KAM Franca Earl CNP 5 mL at 01/16/22 0558 And sodium chloride 0.9% (NS) 0-150 mL/hr Intravenous PRN Franca Earl CNP Stopped at 01/15/22 1550 tolterodine (DETROL LA) 24 hr capsule 2 mg 2 mg Oral Daily Franca Earl CNP 2 mg at 01/16/22 0839 traZODone (DESYREL) tablet 50 mg 50 mg Oral Nightly PRN Dameon Ro DO 50 mg at 01/16/22 0033 vancomycin (VANCOCIN) 1000 mg in sodium chloride (NS) 0.9% 250mL (vialmate) 1,000 mg Intravenous Q24H Len Dsouza [facility] Stopped at 01/15/22 9795 Lab Results Component Value Date WBC 10.25 01/15/2022 HGB 7.4 (L) 01/15/2022 HCT 22.9 (L) 01/15/2022 MCV 90.9 01/15/2022 PLT 327 01/15/2022 Lab Results Component Value Date GLUCOSE 165 (H) 01/15/2022 CALCIUM 9.0 01/15/2022 NA 135 01/15/2022 K 4.8 01/15/2022 CL 103 01/15/2022 BUN 34 (H) 01/15/2022 CREATININE 1.01 01/16/2022 Cultures: MRSA coag negative staph Radiology: Ultrasound duplex carotid Final Result XR Chest 1 View Final Result Low lung volume portable chest radiograph with grossly clear lungs. Workstation ID: [id number] MR Foot Left Without Contrast Final Result 1. Acute osteomyelitis in the plantar calcaneus adjacent to the ulcer. 2. Acute osteomyelitis in the 5th metatarsal head and neck and proximal 5th phalanx adjacent to theulcer. 3. No soft tissue abscess. 4. Nonspecific increased signal in the distal phalanx of the 1st, 2nd and 3rd digits. This could bedue to artifact. This finding can also be seen with Raynaud's phenomenon or frostbite injury. 5. Intramuscular edema and atrophy in the plantar foot musculature compatible with neuropathy. [facility] Workstation ID: [id number] MR Heel Left Without Contrast Final Result 1. Acute osteomyelitis in the plantar calcaneus adjacent to the ulcer. 2. Acute osteomyelitis in the 5th metatarsal head and neck and proximal 5th phalanx adjacent to theulcer. 3. No soft tissue abscess. 4. Nonspecific increased signal in the distal phalanx of the 1st, 2nd and 3rd digits. This could bedue to artifact. This finding can also be seen with Raynaud's phenomenon or frostbite injury. 5. Intramuscular edema and atrophy in the plantar foot musculature compatible with neuropathy. [facility] Workstation ID: [id number] Ultrasound duplex arterial legs bilat Final Result US Doppler ankle/brachial index Final Result XR Foot Left 3+ Views (Standard) Final Result 1. Suspected shallow soft tissue ulceration of the heel with forefoot soft tissue swelling. No radiographic evidence of osteomyelitis of the calcaneus. 2. Chronic appearing erosion along the lateral aspect of the 2nd metatarsal head new from 07/26/2020. If there is a nearby soft tissue ulceration osteomyelitis is not excluded. Alternatively, this raises the possibility of gout or less likely an inflammatory arthritis. Workstation ID: [id number] Rakesh Muñoz MD; pager * Bhumika Zuleta RN - 01/16/2022 8:44 AM EDT Care Management Progress Note Patient Name: Mikayla Pappas Working Discharge Plan: D/C Disposition: Nursing Home Care Agency/Destination: [facility] HME: None Transportation Plan: Does the patient need discharge transport arranged?: Yes Transportation Type: Ambulance Options Reviewed: Possible expense, Explained services/benefits, Confirm Consent Form Signature Pending/Established Referrals: Patient to return to [facility] Barriers to Discharge/Plan for Follow Up: This rehabilitation caseworker left a voice message for Mariajose GarciaYarrow Gatherer at [facility] ([phone]) to call back this CM. Awaiting pre-cert. Ambulatory referral to SNF order and Ambulatory referral to Care Management order placed. 1130: Patient discussed during multidisciplinary rounds (MDR). Awaiting ID final data. Received a call back from chidi Garcia LVM for this CM. Pre-cert was initiated later in the day yesterday per Radha on their side and she is still awaiting final pre-cert. CM to follow. 1730: Patient's pre-cert accepted this afternoon per voice message from arlene Garcia. She also requested an order that the wound vac be changed to wet to dry dressing until wound vac arrives at facility. This CM communicated via secure chat with [employer] Marker and he will place order and put dressingcare on AVS. Patient will need a COVID test swab within 72 hours of discharge to facility. Still awaiting final ID recs. Patient with no PICC line and no port at this time. Discussed with bedside nurse of above wound plan and possible plan for IV antibiotics at discharge.Updated patient as well as he was asking when he would discharge. CM to follow. * Johnathan Zepeda DO - 01/16/2022 7:02 AM EDT [facility] [place] and Plan Mikayla Pappas is a 61 y.o. male patient of Greyson Dominguez MD with history of PVD, Diabetestype II, CVA, depression, LORENA, R BKA, anemia, HTN, HLD, urinary retention presented with worsening left diabetic foot ulcer. Left Diabetic Foot ulcer, Acute on Chronic L foot OM Presented w/worsening left foot wound Afebrile, HDS; no SIRS or sepsis on admission ESR/CRP mildly elevated, WBC 11K XR L foot w/o OM Podiatry consulted MRI left foot/heel with acute osteo in the plantar calcaneus and 5th metatarsal Wound cx (01/09) growing MRSA Bone cx (01/12) growing MRSA Surgical site (01/12) growing coag neg staph Vascular surgery consulted; no vascular surgical intervention recommended at this time Continued aspirin and statin S/P OR (01/12) per podiatry for L partial 5th ray resection and L I&D of heel Wound vac placed Continue Ancef/Flagyl/Vanc ID following for abx course Anemia Hgb 8.4 on admission Iron panel with low iron No signs of bleeding noted Iron supplementation started Hgb trended to ~ 7.5 and stable T2DM, insulin dependent Diabetic Peripheral Neuropathy A1c 6.7 Home glipizide and januvia held on admission Lantus increased SSI Urinary Retention Chronic, managed w/chronic indwelling todd Changed 1wk prior to admission at [facility] Maintain todd H/o CVA Generalized Weakness 10/2020, treated at [facility] Residual bilateral weakness, no deficits Pt resides at [facility] for rehab Continue asa and lipitor Essential HTN Normotensive on arrival Per [facility] med list pt only on lasix, previously on norvasc 10, losartan 25, monitor for need to restart medications. Monitor BP HLD Continue home statin Depression Continue home cymbalta LORENA Continue CPAP at bedtime and with naps Pt desats to ~89% while sleeping BAILEE, resolvved Likely pre-renal in the setting of diuretic use Cr 1.3 on admission, baseline WNL Lasix held on amdission Resolved Family Contact Information Regine Pappas (Child) [phone] Code Status: Full Code - Unverified Quality Measures DVT Prophylaxis: - enoxaparin (LOVENOX) syringe 40 mg Todd Catheter: Chronic todd Disposition Discharge Location: [facility] Estimated Discharge Date: 1-2 days pending ID recs for abx Outpatient Testing: TBD Subjective Pt very sleepy today after receiving meds for sleep last night, can't keep eyes open. Denies pain. Review of Systems All systems have been reviewed and are negative except as noted in HPI or below Objective BP (!) 155/74 Pulse 90 Temp 97.9 F (36.6 C) (Oral) Resp 16 Ht 5' 8 Wt 81.6 kg (180 lb) SpO2 97% BMI 27.37 kg/m Physical Examination General Appearance: alert; chronically ill appearing; in no acute distress HEENT: Head- normocephalic; Eyes- EOMI, sclera anicteric; Ears- hearing intact; Nose- no nasal discharge; Throat- mucous membranes moist Cardiovascular: regular rate and rhythm; normal S1, S2; no murmurs, rubs, clicks or gallops; no peripheral edema Respiratory: lungs clear to auscultation; without wheezes, rales or rhonchi; on room air Abdomen: soft, non-tender, non-distended; positive bowel sounds Neurological: oriented x 3; normal speech; no focal neuro deficits Musculoskeletal: R BKA, L foot s/p 5th ray amputation, dressing C/D/I Skin: warm and dry, no rashes Psych: normal mood and affect Results/Medications Reviewed 01/16/2022 7:02 AM Laboratory, Radiology, Medications and Transcriptions * Cedric Tan DPM - 01/16/2022 4:33 AM EDT Foot and Ankle Surgery Progress Note ASSESSMENT Mikayla Pappas 61 y.o. male with PMHx PVD, Diabetes type II, CVA, depression, LORENA, R BKA, anemia, HTN, HLD, urinary retention presents with left DFU to left sub 5th MT head and dry eschar to heel.Found to have osteomyelitis of the fifth metatarsal and concern for osteomyelitis of the calcaneus. - s/p left partial 5th ray resection, left I&D of heel (01/12) - Afebrile, intermittent hypertension, otherwise VSS -Labs reviewed. -Blood culture, 01/09/2022: NGTD -Swab cx left foot, 01/09/2022: MRSA - Intra-op L 5th ray bone cx: MRSA - Intra-op L calc bone cx: NOS - Intra-op post lavage swab cx L foot: Coag negative staph PLAN: -Patient seen and evaluated at bedside -Dressing left CDI, no strikethrough noted. Wound VAC functioning at continuous, -125 mmHg. No drainage noted in canister. No alarms noted. -NWB to LLE w/ assistive device and postop shoe - Heel boots while in bed. -ET consulted, appreciate assistance with wound VAC -IV abx per ID recs - No further OR planned this admission. Continue IV abx per ID, tailor to intraoperative cultures as able. Patient will require wound VAC upon discharge. [place] [facility] [place]. Anticipate patient to be okay for discharge from foot ankle perspective pending attending discussion. Dispo pending final ID recs. -Patient to be discussed with Dr. Jaramillo and associates, further plan per attending physician SUBJECTIVE Pt seen and evaluated at bedside. Patient reports no pain to the left lower extremity at this time.No new pedal complaints at this time patient denies any F/C/N/V, or SOB. PHYSICAL EXAM Vital Signs BP (!) 155/74 Pulse 90 Temp 97.9 F (36.6 C) (Oral) Resp 16 Ht 5' 8 Wt 81.6 kg (180 lb) SpO2 97% BMI 27.37 kg/m Wt Readings from Last 25 Encounters: 01/09/22 81.6 kg (180 lb) 01/09/22 87.1 kg (192 lb) 10/19/20 83.3 kg (183 lb 10.3 oz) 10/17/20 86.2 kg (190 lb) 09/13/20 88.5 kg (195 lb) 08/15/20 88.9 kg (195 lb 15.8 oz) 08/14/20 88.9 kg (196 lb) 07/29/20 88.9 kg (196 lb) 07/26/20 88.5 kg (195 lb) 07/26/20 90.7 kg (200 lb) 08/02/16 100.2 kg (221 lb) Ins & Outs Intake/Output Summary (Last 24 hours) at 01/16/2022 0433 Last data filed at 01/16/2022 0319 Gross per 24 hour Intake 1079.91 ml Output 3725 ml Net -2645.09 ml General: No acute distress, resting comfortably in bed. Dressing left CDI, no strikethrough noted. Wound VAC intact. See previous PE below. LE Physical Exam: VASCULAR: DP pulse weakly palpable, left and PT pulse non-palpable, left. CFT < 3 sec to all digits, left.Mild edema appreciated to the level of the ankle, left . NEUROLOGICAL: Light touch sensation intact to the level of the mid-tibia, left. DERMATOLOGICAL: Skin is warm, dry and supple, B/L. Left partial 5th ray surgical site: Surgical incisional wound noted to the right distal lateral foot. No carli surgical wound erythema, mild warmth, and no malodor noted. Skin edges well approximated with appropriate tension, appropriate perfusion, sutures intact, and no signs of wound dehiscence noted. Minimal active bleeding noted to the most distal aspect of the incision. Left calcaneal wound: Mixed fibrotic/granular wound base appreciated to the plantar aspect of the left calcaneus. No purulence appreciated. Healthy bleeding skin edges noted. No purulence noted from wound. Does not probe to bone. Mild erythema and calor noted carli-wound consistent with post-surgical debridement. No edema appreciated. MUSCULOSKELETAL: No TTP to left foot. Muscle strength, 5/5, left. Previous BKA noted, right. Gastro-soleal equinus appreciated, left. LABS Lab Results Component Value Date WBC 10.25 01/15/2022 HGB 7.4 (L) 01/15/2022 HCT 22.9 (L) 01/15/2022 MCV 90.9 01/15/2022 PLT 327 01/15/2022 Lab Results Component Value Date GLUCOSE 165 (H) 01/15/2022 CALCIUM 9.0 01/15/2022 NA 135 01/15/2022 K 4.8 01/15/2022 CL 103 01/15/2022 BUN 34 (H) 01/15/2022 CREATININE 1.05 01/15/2022 Ultrasound duplex carotid Final Result XR Chest 1 View Final Result Low lung volume portable chest radiograph with grossly clear lungs. Workstation ID: [id number] MR Foot Left Without Contrast Final Result 1. Acute osteomyelitis in the plantar calcaneus adjacent to the ulcer. 2. Acute osteomyelitis in the 5th metatarsal head and neck and proximal 5th phalanx adjacent to theulcer. 3. No soft tissue abscess. 4. Nonspecific increased signal in the distal phalanx of the 1st, 2nd and 3rd digits. This could bedue to artifact. This finding can also be seen with Raynaud's phenomenon or frostbite injury. 5. Intramuscular edema and atrophy in the plantar foot musculature compatible with neuropathy. [facility] Workstation ID: [id number] MR Heel Left Without Contrast Final Result 1. Acute osteomyelitis in the plantar calcaneus adjacent to the ulcer. 2. Acute osteomyelitis in the 5th metatarsal head and neck and proximal 5th phalanx adjacent to theulcer. 3. No soft tissue abscess. 4. Nonspecific increased signal in the distal phalanx of the 1st, 2nd and 3rd digits. This could bedue to artifact. This finding can also be seen with Raynaud's phenomenon or frostbite injury. 5. Intramuscular edema and atrophy in the plantar foot musculature compatible with neuropathy. /[facility] Workstation ID: [id number] Ultrasound duplex arterial legs bilat Final Result US Doppler ankle/brachial index Final Result XR Foot Left 3+ Views (Standard) Final Result 1. Suspected shallow soft tissue ulceration of the heel with forefoot soft tissue swelling. No radiographic evidence of osteomyelitis of the calcaneus. 2. Chronic appearing erosion along the lateral aspect of the 2nd metatarsal head new from 07/26/2020. If there is a nearby soft tissue ulceration osteomyelitis is not excluded. Alternatively, this raises the possibility of gout or less likely an inflammatory arthritis. Workstation ID: [id number] * Farhad Flores Jr., YOU[employer] LIAISON OFFICER - 01/15/2022 2:17 PM EDT Physical Therapy PHYSICAL THERAPY TREATMENT NOTE Skilled Therapy Needs After Discharge Anticipate Resolution of Current Assessment Limitations Including: Mechanical Barriers Are Skilled Therapy Services Needed After Discharge: Yes Intensity of Skilled Therapy: Up to 5 days per week Anticipated Duration of Skilled Therapy: Duration 10 - 30 days DME Recommendation: Slide board DME Rationale: Patient's condition creates an increased risk of safety hazard without recommended equipment Rehab Potential: Good Outcomes Measures Prior Function - Basic Mobility Raw Score: 18 Points Prior Function - Basic Mobility % Impaired: 40.47% AM-PAC Basic Mobility Raw Score: 11 Points AM-PAC Basic Mobility % Impaired: 66.76% Therapy Precautions Orthotic Devices: Yes Lower Extremity: Cast / Postop Shoe, Left Weight Bearing Status: X LLE: Non Wt bearing General Rehab Precautions: Fall risk, previous right bka. Balance Sitting Balance - Static: Stand by assist Sitting Balance - Dynamic: Contact guard assist Sitting Balance Treatment: weight shifting anterior, weight shifting left, weight shifting right, reaching within base of support, reaching outside base of support, elbow propping left Skilled Intervention Provided: verbal cues, visual cues, patient education For: LE positioning, UE positioning, fall prevention, weight shifting Resulting in: improved safety, improved performance, improved activity tolerance Skilled Intervention Provided: verbal cues, tactile cues, visual cues, patient education For: LE positioning, UE positioning, postural alignment, weight shifting Resulting in: improved safety, improved performance, improved activity tolerance Bed Mobility Supine to Sit: Contact guard assist, Head of bed elevated Sit to Supine: Stand by assist, Head of bed flat Pinball Machine Repairer: bedrails Skilled Intervention Provided: verbal cues, monitoring patient response with activity, monitoring patient response with positional changes, patient education For: prevention of neurologic fatigue, safety during functional tasks, sequencing of movement, weight shifting Resulting in: improved safety, improved performance, improved activity tolerance Transfers Lateral Transfers: Minimal assist Pinball Machine Repairer: wheelchair, slide/transfer board Additional Transfer Trial 2: Yes Lateral Transfers Trial 2: Moderate assist Pinball Machine Repairer Trial 2: wheelchair, slide/transfer board Skilled Intervention Provided: verbal cues, monitoring patient response with activity, monitoring patient response with positional changes, provided step by step instructions, patient education For: LE positioning, UE positioning, proper body mechanics, safe use of AD and/or equipment, sequencing of movement, weight shifting Resulting in: improved safety, improved performance, improved activity tolerance, improved adherence to precautions Wheelchair Locomotion Wheelchair Mobility: Stand by assist Wheelchair distance: 150 Feet Wheelchair Environment/Terrain: closed environment, minimal to no distractions Skilled Intervention Provided: verbal cues For: wheelchair propulsion technique, wheelchair safety / locking brakes, wheelchair mechanical aspects Resulting in: improved safety, improved performance, improved activity tolerance Additional Treatment Details Minimal verbal/tactile cues to maintain nwb left le with post-op shoe during slide board transfer. Home Living Obtained Home Living and PLOF info from: Patient Lives With: Alone Type of Home: termite control representative care facility Mobility Equipment: Wheelchair - manual Additional Objective Details - Home Living: Patient in LTC secondary to amputation and uncontrolleddiabetes. Patient independent with stand pivot transfers prior to ulcer worsening. Patient had beenperforming lateral transfers in LTC without slideboard prior to NWB precautions. Prior Level of Function Receives Help From: Facility staff Level of [place] - Transfers/Ambulation/Mobility: Independent with functional transfers, Independent at wheelchair level in home, Independent at wheelchair level in community Level of [place] - ADLs: Independent Level of Craven - Homemaking: Needs assistance Driving: Patient does not drive For complete objective data, detailed plan of care and patient education refer to: PT Evaluation flowsheet, PT Evaluation and Treatment flowsheet, PT Treatment flowsheet, patient Plan of Care, Plan of Care progress note, and Patient Education. This note stands as the current Discharge Summary upon patient discharge from the hospital or completion of Physical Therapy Plan of Care. * MAGEN Avalos - 01/15/2022 11:22 AM EDT Occupational Therapy OCCUPATIONAL THERAPY TREATMENT NOTE Skilled Therapy Needs After Discharge Anticipate Resolution of Current Assessment Limitations Including: Mechanical Barriers, Social Support Are Skilled Therapy Services Needed After Discharge: Yes Intensity of Skilled Therapy: Up to 5 days per week Anticipated Duration of Skilled Therapy: Duration 10 - 30 days DME Recommendation: (continue to assess) Rehab Potential: Good, For goals Outcomes Measures Prior Function Daily Activity Raw Score: 24 Prior Function Daily Activity % Impaired: 0% AM-PAC Daily Activity Raw Score: 17 AM-PAC Daily Activity % Impaired: 50.11% Activity Tolerance Activity Tolerance: Tolerates 20 - 30 min activity with multiple rests Therapy Precautions Orthotic Devices: Yes Lower Extremity: Cast / Postop Shoe Weight Bearing Status: X RLE: (Hx of BKA) LLE: Non Wt bearing Cognition Overall Cognitive Status: Within Functional Limits Arousal/Alertness: Delayed responses to stimuli Orientation Level: Oriented X4 Executive functioning: Insight, Planning / Organizing, Min impairment Safety Judgment: Decreased awareness of need for assistance, Decreased awareness of need for safety Problem Solving: Assistance required to identify errors made, Assistance required to generate solutions, Assistance required to implement solutions Attention: Attends to quiet environment Hearing Status: WFL Social Interaction: Cooperative, Appropriate Comments: Patient was able to follow one and two step commands with increased time and cues d/t drowsiness. Skilled Intervention Provided: patient education For: necessary precautions Resulting In: increased insight into deficits, increased safety awareness ADL Grooming: Supervision, Set-up (while seated EOb) Grooming - Skilled Intervention Provided: environmental setup/modification, monitored patient's safety and tolerance Grooming - For: compensatory strategies, self-monitoring, task simplification/modification Grooming - Resulting In: improved activity tolerance, improved initiation, improved performance with ADLs UE Bathing: Stand by assist (assistance needed for washing of back) UE Bathing - Skilled Intervention Provided: verbal cues, facilitation, monitored patient's safety & tolerance UE Bathing - For: efficient movement, compensatory strategies, energy conservation, safe bathing techniques, self-monitoring, sequencing of movement, task simplification/modification UE Bathing - Resulting In: improved initiation, improved participation in ADL task, improved performance with ADLs, improved safety LE Bathing: Stand by assist (while seated EOB) LE Bathing - Skilled Intervention Provided: verbal cues, environmental setup/modification, facilitation, monitored patient's safety & tolerance LE Bathing - For: safe bathing techniques, self-monitoring, proper body mechanics LE Bathing - Resulting In: improved overall self care, improved participation in ADL task, improvedperformance with ADLs UE Dressing: Contact guard assist UE Dressing - Skilled Intervention Provided: verbal cues, facilitation, monitored patient's safety & tolerance UE Dressing - For: efficient movement, self-monitoring, sequencing of movement UE Dressing - Resulting In: improved initiation, improved participation in ADL task, improved performance with ADLs Toileting: Minimal assist (pericare while rolling) Toileting - Skilled Intervention Provided: verbal cues, tactile cues, facilitation, monitored patient's safety and tolerance, environmental setup/modification Toileting - For: compensatory strategies, UE management, LE management Toileting - Resulting In: improved overall self care, improved performance with ADLs, improved safety, improved initiation Bed Mobility Rolling: Stand by assist Supine to Sit: Contact guard assist Sit to Supine: Stand by assist Pinball Machine Repairer: bedrails Skilled Intervention Provided: verbal cues, facilitation, monitoring patient response with activity, monitoring patient response with positional changes, provided step by step instructions, patient education For: LE positioning, UE positioning, efficient movement, initiation of task, necessary precautions,proper body mechanics, safe use of bedrails and/or equipment, safety during functional task(s), self-monitoring during activity, sequencing of movement Resulting In: improved activity tolerance, improved performance, increased initiation in mobility task(s), increased participation in mobility task(s), increased upright tolerance for functional tasks Functional Transfers Lateral Transfers: Stand by assist (side scooting at EOB) Skilled Intervention Provided: verbal cues, facilitation, monitoring patient response with activity, monitoring patient response with positional changes For: LE positioning, UE positioning, efficient movement, increased participation in mobility task, necessary precautions, self-monitoring during activity, safety during functional task(s), sequencingof movement, weight shifting Resulting In: improved activity tolerance, increased initiation/participation in mobility task(s), improved performance, improved safety, increased upright tolerance for functional task(s) Balance Treatment Sitting Balance - Static: Independent Sitting Balance - Dynamic: Stand by assist Sitting Balance Treatment: reaching outside base of support, reaching within base of support, reaching across midline, weight shifting left, weight shifting right, weight shifting posterior, weight shifting anterior Skilled Intervention Provided: verbal cues, facilitation For: self-monitoring during activity, sequencing of movement, weight shifting, LE positioning, UE positioning, efficient movement Resulting in: improved activity tolerance, improved initiation, improved safety, improved performance, increased upright tolerance for functional tasks Additional Treatment Details Cues were needed throughout for attention to task d/t increased drowsiness. Home Living Obtained Home Living and PLOF info from: Patient Lives With: Alone Type of Home: termite control representative care facility Mobility Equipment: Wheelchair - manual Additional Objective Details - Home Living: Patient in LTC secondary to amputation and uncontrolleddiabetes. Patient independent with stand pivot transfers prior to ulcer worsening. Patient had beenperforming lateral transfers in LTC without slideboard prior to NWB precautions. Prior Level of Function Receives Help From: Facility staff Level of Craven - Transfers/Ambulation/Mobility: Independent with functional transfers, Independent at wheelchair level in home, Independent at wheelchair level in community Level of Craven - ADLs: Independent Level of Craven - Homemaking: Needs assistance Driving: Patient does not drive For complete objective data, detailed plan of care and patient education refer to: OT Evaluation flowsheet, OT Evaluation and Treatment flowsheet, OT Treatment flowsheet, patient Plan of Care, Plan of Care progress note, and Patient Education. This note stands as the current Discharge Summary upon patient discharge from the hospital or completion of Occupational Therapy Plan of Care. * CLAY Marcial - 01/15/2022 9:46 AM EDT Care Management Progress Note Patient Name: Mikayla Pappas Working Discharge Plan: D/C Disposition: Nursing Home Care Agency/Destination: [facility] HME: None Transportation Plan: Does the patient need discharge transport arranged?: Yes Transportation Type: Ambulance Options Reviewed: Possible expense, Explained services/benefits, Confirm Consent Form Signature Pending/Established Referrals: Patient to return to [facility]. Barriers to Discharge/Plan for Follow Up: PEE received a phone call from Radha jacobs. Radha requested updated PT/OT notes. PEE alerted Radha that this patient will likely require a wound vac upon return to facility. Addendum: Per AM MDR, this patient will likely be medically ready in the next 1- 2 days. PEE left a voicemail for Radha at [phone] regarding discharge readiness and requested precert initiation. * Johnathan Zepeda DO - 01/15/2022 7:12 AM EDT [facility] [place] Assessment and Plan Mikayla Pappas is a 61 y.o. male patient of Greyson Dominguez MD with history of PVD, Diabetestype II, CVA, depression, LORENA, R BKA, anemia, HTN, HLD, urinary retention presented with worsening left diabetic foot ulcer. Left Diabetic Foot ulcer, Acute on Chronic L foot OM Presented w/worsening left foot wound Afebrile, HDS; no SIRS or sepsis on admission ESR/CRP mildly elevated, WBC 11K XR L foot w/o OM Podiatry consulted MRI left foot/heel with acute osteo in the plantar calcaneus and 5th metatarsal Wound cx (01/09) growing MRSA Bone cx (01/12) growing MRSA Surgical site (01/12) growing coag neg staph Vascular surgery consulted; no vascular surgical intervention recommended at this time Continued aspirin and statin S/P OR (01/12) per podiatry for L partial 5th ray resection and L I&D of heel Wound vac placed Continue Ancef/Flagyl/Vanc ID following for abx course Anemia Hgb 8.4 on admission Iron panel with low iron No signs of bleeding noted Iron supplementation started Hgb trended to ~ 7.5 and stable T2DM, insulin dependent Diabetic Peripheral Neuropathy Chronic, w/hyperglycemia on admission, not in DKA A1c 6.7 Home glipizide and januvia held on admission Lantus continued SSI Urinary Retention Chronic, managed w/chronic indwelling todd Changed 1wk prior to admission at [facility] Maintain todd Chronic Normocytic Anemia Baseline Hgb ~10, Hgb 8.4 on admission No active s/sx of bleeding, HDS Will check iron studies and B12/folate Monitor daily CBC, transfuse for Hgb <7 H/o CVA Generalized Weakness 10/2020, treated at [facility] Residual bilateral weakness, no deficits Pt resides at [facility] for rehab Continue asa and lipitor Essential HTN Normotensive on arrival Per [facility] med list pt only on lasix, previously on norvasc 10, losartan 25, monitor for need to restart medications. Monitor BP HLD Continue home statin Depression Continue home cymbalta LORENA Continue CPAP at bedtime and with naps Pt desats to ~89% while sleeping BAILEE, resolvved Likely pre-renal in the setting of diuretic use Cr 1.3 on admission, baseline WNL Lasix held on amdission Resolved Family Contact Information Regine Pappas (Child) [phone] Code Status: Full Code - Unverified Quality Measures DVT Prophylaxis: - enoxaparin (LOVENOX) syringe 40 mg Todd Catheter: Chronic todd Disposition Discharge Location: [facility] Estimated Discharge Date: 2-3 days pending ID recs for abx Outpatient Testing: TBD Subjective Pt states pain is well controlled. Denies chest pain, shortness of breath, nausea or vomiting. Review of Systems All systems have been reviewed and are negative except as noted in HPI or below Objective BP 135/69 (Patient Position: Lying) Pulse 75 Temp 98 F (36.7 C) (Oral) Resp 16 Ht 5' 8 Wt 81.6 kg (180 lb) SpO2 98% BMI 27.37 kg/m Physical Examination General Appearance: alert; chronically ill appearing; in no acute distress HEENT: Head- normocephalic; Eyes- EOMI, sclera anicteric; Ears- hearing intact; Nose- no nasal discharge; Throat- mucous membranes moist Cardiovascular: regular rate and rhythm; normal S1, S2; no murmurs, rubs, clicks or gallops; no peripheral edema Respiratory: lungs clear to auscultation; without wheezes, rales or rhonchi; on room air Abdomen: soft, non-tender, non-distended; positive bowel sounds Neurological: oriented x 3; normal speech; no focal neuro deficits Musculoskeletal: R BKA, L foot s/p 5th ray amputation, dressing C/D/I Skin: warm and dry, no rashes Psych: normal mood and affect Results/Medications Reviewed 01/15/2022 7:12 AM Laboratory, Radiology, Medications and Transcriptions * Rakesh Muñoz MD - 01/15/2022 6:26 AM EDT DAILY PROGRESS NOTE Patient Name: Mikayla Pappas MR #: [id number] Assessment and Plan: 1. Left foot osteomyelitis-he has had partial fifth ray resection which hopefully will be curative but also has possible calcaneal osteomyelitis, so far cultures with MRSA and coag negative staph currently on vancomycin and Ancef Flagyl 2. Diabetes-monitor control glucose 3. Peripheral vascular disease-history of 4. CVA-history of 5. Hyperlipidemia-on statin Disposition Comments: Await data-he may need a course of intravenous antibiotic therapy, suspect the Ancef/Flagyl can be discontinued and add Zosyn Subjective/Objective: Perpetual Assessment: Mikayla Pappas is a 61 y.o. male on hospital day 6 with hyperlipidemia, CVA, diabetes, peripheral vascular disease with left foot osteomyelitis. Chief Complaint: Osteomyelitis HPI: Quiet lethargic Review of Systems: The following system(s) were reviewed: Constitutional, GI,Skin,Respiratory Physical Examination: BP 135/69 (Patient Position: Lying) Pulse 75 Temp 98 F (36.7 C) (Oral) Resp 16 Ht 5' 8 Wt 81.6 kg (180 lb) SpO2 98% BMI 27.37 kg/m General: NAD; Alert and oriented x3 Eyes: Conjunctiva and sclera clear Lungs: Clear without rales, rhonchi or wheezes; no increased respiratory effort Cardiovascular: RRR; no edema Abdomen: Positive bowel sounds; soft; non tender Extremities: No cyanosis or clubbing Skin: No rashes or nodules; normal turgor Neurologic: Lethargic, right-sided weakness more than left Psych: Mood and affect appropriate Results/Medications Reviewed: Current Facility-Administered Medications Medication Dose Route Frequency Provider Last Rate Last Admin acetaminophen (TYLENOL) tablet 650 mg 650 mg Oral Q4H PRN Franca Earl CNP 650 mg at 01/13/22 0035 aluminum-magnesium hydroxide-simethicone (MAALOX PLUS) 200-200-20 mg/5 mL suspension 30 mL 30 mL Oral Q4H PRN Franca Earl CNP aspirin EC tablet 81 mg 81 mg Oral Daily Franca Earl CNP 81 mg at 01/14/22 0843 atorvastatin (LIPITOR) tablet 80 mg 80 mg Oral Nightly Franca Earl CNP 80 mg at 01/14/22 2235 ceFAZolin (ANCEF) IVPB 2 g (premix) 2,000 mg Intravenous Q8H Franca Earl CNP 100 mL/hr at 01/15/22 0542 2,000 mg at 01/15/22 0542 DULoxetine (CYMBALTA) DR capsule 90 mg 90 mg Oral at bedtime Franca Earl CNP 90 mg at 01/14/222234 enoxaparin (LOVENOX) syringe 40 mg 40 mg Subcutaneous Daily Cedric Tan DPM 40 mg at 01/14/22 0842 ferrous sulfate tablet 325 mg 325 mg Oral Daily with breakfast Adalberto Hernandez DO 325 mg at 01/14/22 0843 gabapentin (NEURONTIN) capsule 100 mg 100 mg Oral Nightly Franca Earl CNP 100 mg at 01/14/22 2235 hydrOXYzine (ATARAX) tablet 25 mg 25 mg Oral TID PRN Adalberto Hernandez DO insulin glargine (LANTUS) injection 22 Units 22 Units Subcutaneous Nightly Franca Earl CNP 22Units at 01/14/22 2245 insulin lispro (AdmeLOG,HumaLOG) injection 0-15 Units 0-15 Units Subcutaneous at bedtime Franca Cormier CNP 2 Units at 01/12/22 2100 insulin lispro (AdmeLOG,HumaLOG) injection 0-30 Units 0-30 Units Subcutaneous TID AC Franca Earl CNP 2 Units at 01/14/22 1719 melatonin Tab 5 mg 5 mg Oral Nightly Adalberto Doylee, DO 5 mg at 01/14/222234 metroNIDAZOLE (FLAGYL) tablet 500 mg 500 mg Oral TID with meals Adalberto Doylee, DO 500 mgat 01/14/22 1721 naloxone (NARCAN) injection 0.1 mg 0.1 mg Intravenous PRN Cedric Tan DPM And naloxone (NARCAN) injection 0.4 mg 0.4 mg Intravenous PRN Cedric Tan DPM naloxone (NARCAN) injection 0.1 mg 0.1 mg Intravenous PRN Cedric Tan DPM And naloxone (NARCAN) injection 0.4 mg 0.4 mg Intravenous PRN Cedric Tan, HAYDENM ondansetron (ZOFRAN-ODT) disintegrating tablet 4 mg 4 mg Oral Q6H PRN Franca Earl CNP 4 mg at01/14/22 0741 Or ondansetron (ZOFRAN) injection 4 mg 4 mg Intravenous Q6H PRN Franca Earl CNP oxyCODONE (ROXICODONE) immediate release tablet 5-10 mg 5-10 mg Oral Q4H PRN Cedric Tan DPM 10mg at 01/13/22 0657 senna (SENOKOT) tablet 8.6 mg 1 tablet Oral BID PRN Franca Earl CNP 8.6 mg at 01/11/22 0823 senna-docusate (SENNA-S) 8.6-50 mg per tablet 1 tablet 1 tablet Oral BID Franca Earl CNP 1 tablet at 01/14/22 2235 sodium chloride (PF) (NS) flush 5 mL 5 mL Intravenous PRN Franca Earl CNP And sodium chloride (PF) (NS) flush 5 mL 5 mL Intravenous Q8H KAM Franca Earl CNP 5 mL at 01/15/22 0542 And sodium chloride 0.9% (NS) 0-150 mL/hr Intravenous PRN Franca Earl CNP Stopped at 01/15/22 0239 tolterodine (DETROL LA) 24 hr capsule 2 mg 2 mg Oral Daily Franca Earl, WEB MANAGER 2 mg at 01/14/22 0842 vancomycin (VANCOCIN) 1250 mg in sterile water 250 mL IVPB (Xellia) 1,250 mg Intravenous Q24H Adalberto Hernandez DO Stopped at 01/15/22 0241 Lab Results Component Value Date WBC 10.25 01/15/2022 HGB 7.4 (L) 01/15/2022 HCT 22.9 (L) 01/15/2022 MCV 90.9 01/15/2022 PLT 327 01/15/2022 Lab Results Component Value Date GLUCOSE 165 (H) 01/15/2022 CALCIUM 9.0 01/15/2022 NA 135 01/15/2022 K 4.8 01/15/2022 CL 103 01/15/2022 BUN 34 (H) 01/15/2022 CREATININE 1.05 01/15/2022 Cultures: MRSA coag negative staph Radiology: Ultrasound duplex carotid Final Result XR Chest 1 View Final Result Low lung volume portable chest radiograph with grossly clear lungs. Workstation ID: [id number] MR Foot Left Without Contrast Final Result 1. Acute osteomyelitis in the plantar calcaneus adjacent to the ulcer. 2. Acute osteomyelitis in the 5th metatarsal head and neck and proximal 5th phalanx adjacent to theulcer. 3. No soft tissue abscess. 4. Nonspecific increased signal in the distal phalanx of the 1st, 2nd and 3rd digits. This could bedue to artifact. This finding can also be seen with Raynaud's phenomenon or frostbite injury. 5. Intramuscular edema and atrophy in the plantar foot musculature compatible with neuropathy. [employer] Workstation ID: [id number] MR Heel Left Without Contrast Final Result 1. Acute osteomyelitis in the plantar calcaneus adjacent to the ulcer. 2. Acute osteomyelitis in the 5th metatarsal head and neck and proximal 5th phalanx adjacent to theulcer. 3. No soft tissue abscess. 4. Nonspecific increased signal in the distal phalanx of the 1st, 2nd and 3rd digits. This could bedue to artifact. This finding can also be seen with Raynaud's phenomenon or frostbite injury. 5. Intramuscular edema and atrophy in the plantar foot musculature compatible with neuropathy. [employer] Workstation ID: [id number] Ultrasound duplex arterial legs bilat Final Result US Doppler ankle/brachial index Final Result XR Foot Left 3+ Views (Standard) Final Result 1. Suspected shallow soft tissue ulceration of the heel with forefoot soft tissue swelling. No radiographic evidence of osteomyelitis of the calcaneus. 2. Chronic appearing erosion along the lateral aspect of the 2nd metatarsal head new from 07/26/2020. If there is a nearby soft tissue ulceration osteomyelitis is not excluded. Alternatively, this raises the possibility of gout or less likely an inflammatory arthritis. Workstation ID: [id number] Rakesh Muñoz MD; pager * Cedric Tan DPM - 01/15/2022 5:14 AM EDT Foot and Ankle Surgery Progress Note ASSESSMENT Mikayla Pappas 61 y.o. male with PMHx PVD, Diabetes type II, CVA, depression, LORENA, R BKA, anemia, HTN, HLD, urinary retention presents with left DFU to left sub 5th MT head and dry eschar to heel.Found to have osteomyelitis of the fifth metatarsal and concern for osteomyelitis of the calcaneus. - s/p left partial 5th ray resection, left I&D of heel (01/12) - AVSS -Labs reviewed: No leukocytosis -Blood culture, 01/09/2022: NGTD -Swab cx left foot, 01/09/2022: MRSA - Intra-op L 5th ray bone cx: GPC, GPB, GNB - Intra-op L calc bone cx: NOS - Intra-op post lavage swab cx L foot: NOS PLAN: -Patient seen and evaluated at bedside -Dressing left CDI, no strikethrough noted. Plan for wound VAC today per ET -NWB to LLE w/ assistive device and postop shoe - Heel boots while in bed, bilateral -ET consulted, appreciate assistance with wound VAC placement -IV abx per ID recs - No further OR planned this admission. Anticipate patient will be OK for discharge within the coming days pending final ID recommendations and wound VAC placement. Continue IV abx per ID, tailor to intraoperative cultures as able. -Patient to be discussed with Dr. Jaramillo and associates, further plan per attending physician SUBJECTIVE Pt seen and evaluated at bedside. Patient currently denies pain to the left lower extremity at thistime. Patient denies any new pedal complaints or overnight events. Patient denies any F/C/N/V, or SOB. PHYSICAL EXAM Vital Signs BP 135/69 (Patient Position: Lying) Pulse 75 Temp 98 F (36.7 C) (Oral) Resp 16 Ht 5' 8 Wt 81.6 kg (180 lb) SpO2 98% BMI 27.37 kg/m Wt Readings from Last 25 Encounters: 01/09/22 81.6 kg (180 lb) 01/09/22 87.1 kg (192 lb) 10/19/20 83.3 kg (183 lb 10.3 oz) 10/17/20 86.2 kg (190 lb) 09/13/20 88.5 kg (195 lb) 08/15/20 88.9 kg (195 lb 15.8 oz) 08/14/20 88.9 kg (196 lb) 07/29/20 88.9 kg (196 lb) 07/26/20 88.5 kg (195 lb) 07/26/20 90.7 kg (200 lb) 08/02/16 100.2 kg (221 lb) Ins & Outs Intake/Output Summary (Last 24 hours) at 01/15/2022 0514 Last data filed at 01/15/2022 0241 Gross per 24 hour Intake 1783.12 ml Output 1975 ml Net -191.88 ml General: No acute distress, resting comfortably in bed. Dressing left CDI, no strikethrough noted. See previous PE below. LE Physical Exam: VASCULAR: DP pulse weakly palpable, left and PT pulse non-palpable, left. CFT < 3 sec to all digits, left.Mild edema appreciated to the level of the ankle, left . NEUROLOGICAL: Light touch sensation intact to the level of the mid-tibia, left. DERMATOLOGICAL: Skin is warm, dry and supple, B/L. Left partial 5th ray surgical site: Surgical incisional wound noted to the right distal lateral foot. No carli surgical wound erythema, mild warmth, and no malodor noted. Skin edges well approximated with appropriate tension, appropriate perfusion, sutures intact, and no signs of wound dehiscence noted. Minimal active bleeding noted to the most distal aspect of the incision. Left calcaneal wound: Mixed fibrotic/granular wound base appreciated to the plantar aspect of the left calcaneus. No purulence appreciated. Healthy bleeding skin edges noted. No purulence noted from wound. Does not probe to bone. Mild erythema and calor noted carli-wound consistent with post-surgical debridement. No edema appreciated. MUSCULOSKELETAL: No TTP to left foot. Muscle strength, 5/5, left. Previous BKA noted, right. Gastro-soleal equinus appreciated, left. LABS Lab Results Component Value Date WBC 9.36 01/14/2022 HGB 7.3 (L) 01/14/2022 HCT 22.8 (L) 01/14/2022 MCV 91.9 01/14/2022 PLT 304 01/14/2022 Lab Results Component Value Date GLUCOSE 190 (H) 01/14/2022 CALCIUM 8.6 01/14/2022 NA 138 01/14/2022 K 5.2 (H) 01/14/2022 CL 104 01/14/2022 BUN 40 (H) 01/14/2022 CREATININE 1.26 01/14/2022 Ultrasound duplex carotid Final Result XR Chest 1 View Final Result Low lung volume portable chest radiograph with grossly clear lungs. Workstation ID: [id number] MR Foot Left Without Contrast Final Result 1. Acute osteomyelitis in the plantar calcaneus adjacent to the ulcer. 2. Acute osteomyelitis in the 5th metatarsal head and neck and proximal 5th phalanx adjacent to theulcer. 3. No soft tissue abscess. 4. Nonspecific increased signal in the distal phalanx of the 1st, 2nd and 3rd digits. This could bedue to artifact. This finding can also be seen with Raynaud's phenomenon or frostbite injury. 5. Intramuscular edema and atrophy in the plantar foot musculature compatible with neuropathy. [facility] Workstation ID: [id number] MR Heel Left Without Contrast Final Result 1. Acute osteomyelitis in the plantar calcaneus adjacent to the ulcer. 2. Acute osteomyelitis in the 5th metatarsal head and neck and proximal 5th phalanx adjacent to theulcer. 3. No soft tissue abscess. 4. Nonspecific increased signal in the distal phalanx of the 1st, 2nd and 3rd digits. This could bedue to artifact. This finding can also be seen with Raynaud's phenomenon or frostbite injury. 5. Intramuscular edema and atrophy in the plantar foot musculature compatible with neuropathy. [facility] Workstation ID: [id number] Ultrasound duplex arterial legs bilat Final Result US Doppler ankle/brachial index Final Result XR Foot Left 3+ Views (Standard) Final Result 1. Suspected shallow soft tissue ulceration of the heel with forefoot soft tissue swelling. No radiographic evidence of osteomyelitis of the calcaneus. 2. Chronic appearing erosion along the lateral aspect of the 2nd metatarsal head new from 07/26/2020. If there is a nearby soft tissue ulceration osteomyelitis is not excluded. Alternatively, this raises the possibility of gout or less likely an inflammatory arthritis. Workstation ID: [id number] * Wiliam Bryant RN - 01/14/2022 11:47 PM EDT 2347: Vanc. Trough resulted elevated at 20.1, will hold vanc. And notify Pharmacy. 0120: Per pharmacy team ok to administer vanc. At this time with level result at 20.1. Re-timed andadvised to administer by [facility], Pharm. D. * Adalberto Hernandez DO - 01/14/2022 8:17 AM EDT [facility] [place] Assessment and Plan Mikayla Pappas is a 61 y.o. male patient of Greyson Dominguez MD with history of PVD, Diabetestype II, CVA, depression, LORENA, R BKA, anemia, HTN, HLD, urinary retention presented with worsening left diabetic foot ulcer. Left Diabetic Foot ulcer, Acute on Chronic Presenting w/worsening left foot wound Afebrile, HDS; no SIRS or sepsis on admission ESR/CRP mildly elevated, WBC 11K XR L foot w/o OM Podiatry consulted - no urgent plan for OR at this time MRI left foot/heel with acute osteo in the plantar calcaneus and 5th metatarsal Ancef/Flagyl/Vanc started in ED, continued on admission Wound culture growing MRSA PT/OT consulted Vascular surgery consulted; no vascular surgical intervention recommended at this time Continue with aspirin and statin S/P OR on 01/12 per podiatry ID consulted; await OR cultures Anemia Hgb 8.4 on admission Iron panel with low iron No signs of bleeding noted Will start iron supplementation Hgb 7.7 on 01/12, 7.3 on 01/14 Monitor Hgb level T2DM, insulin dependent Diabetic Peripheral Neuropathy Chronic, w/hyperglycemia on admission, not in DKA HA1c 6.7 Home oral agents held Lantus continued Accuchecks and SSI ordered Monitor and titrate PRN Urinary Retention Chronic, managed w/chronic indwelling todd Last changed 1wk ago at [facility] Maintain todd F/U OP Chronic Normocytic Anemia Baseline Hgb ~10, Hgb 8.4 on admission No active s/sx of bleeding, HDS Will check iron studies and B12/folate Monitor daily CBC, transfuse for Hgb <7 H/o CVA Generalized Weakness 10/2020, treated at [facility] Residual bilateral weakness, no deficits Pt resides at [facility] for rehab PT/OT consult Continue asa and lipitor Essential HTN Normotensive on arrival Per [facility] med list pt only on lasix, previously on norvasc 10, losartan 25, monitor for need to restart medications. Monitor BP HLD Continue home statin Depression Continue home cymbalta Mood appears stable LORENA Continue CPAP at bedtime and with naps Pt desats to ~89% while sleeping BAILEE (resolved) Likely pre-renal in the setting of diuretic use Cr 1.3 on admission, baseline WNL Lasix held on amdission Encouraged PO hydration Monitor UOP Daily RFP Limit nephrotoxins and PICC as able Cr 1.19 on 01/10 Family Contact Information Regine Pappas (Child) [phone] Code Status: Full Code - Unverified Quality Measures DVT Prophylaxis: Lovenox subcutaneous Todd Catheter: None Disposition Discharge Location: [facility] Estimated Discharge Date: TBD; pending podiatry clearance Outpatient Testing: TBD Subjective Patient was seen and examined this morning. No acute events overnight. Patient denies any chest pain, shortness of breath or abdominal pain. There were no reported fevers overnight. Review of Systems All systems have been reviewed and are negative except as noted in HPI or below Objective BP 139/80 Pulse 77 Temp 98.1 F (36.7 C) (Oral) Resp 16 Ht 5' 8 Wt 81.6 kg (180 lb) SpO2 97% BMI 27.37 kg/m Physical Examination General Appearance: alert; chronically ill appearing; in no acute distress HEENT: Head- normocephalic; Eyes- EOMI, sclera anicteric; Ears- hearing intact; Nose- no nasal discharge; Throat- mucous membranes moist Cardiovascular: regular rate and rhythm; normal S1, S2; no murmurs, rubs, clicks or gallops; no peripheral edema Respiratory: lungs clear to auscultation; without wheezes, rales or rhonchi; on room air Abdomen: soft, non-tender, non-distended; positive bowel sounds Neurological: oriented x 3; normal speech; no focal findings or movement disorder noted Musculoskeletal: R BKA Skin: normal coloration; left foot dressing c/d/i Psych: normal mood and affect Results/Medications Reviewed 01/14/2022 8:17 AM Laboratory, Radiology, Medications and Transcriptions * Edouard Walden DPM - 01/14/2022 5:55 AM EDT Images from the original note were not included. Foot and Ankle Surgery Progress Note ASSESSMENT Mikayla Pappas 61 y.o. male with PMHx PVD, Diabetes type II, CVA, depression, LORENA, R BKA, anemia, HTN, HLD, urinary retention presents with left DFU to left sub 5th MT head and dry eschar to heel.Found to have osteomyelitis of the fifth metatarsal and concern for osteomyelitis of the calcaneus. - s/p left partial 5th ray resection, left I&D of heel (01/12) - AVSS -Labs reviewed -XR left foot, 01/09/2022: No radiographic evidence of osteomyelitis to the calcaneus, no obvious gas -MRI left foot, 01/09/2022: Acute OM to 5th MT head/neck and 5th proximal phalanx base, Acute OM to plantar calcaneus -NIVS L foot, 01/09/2022: ANUP 1.2, TBI normal, sig stenosis KIM -Blood culture, 01/09/2022: NGTD -Swab cx left foot, 01/09/2022: MRSA - Intra-op L 5th ray bone cx: GPC, GPB, GNB - Intra-op L calc bone cx: NOS - Intra-op post lavage swab cx L foot: NOS PLAN: -Patient seen and evaluated at bedside -Dressing applied: Betadine soaked gauze packing to heel, Adaptic, DSD, SPENCER- per podiatry -NWB to LLE w/ assistive device and postop shoe - Heel boots while in bed, bilateral -Empiric IV abx per primary -Patient has preoperative risk stratification, [place] [facility] [place]. - No further OR planned this admission. Anticipate patient will be OK for discharge early next weekpending pathology results and wound VAC placement. Continue IV abx, intraoperative 5th ray sent to micro, intraoperative calcaneal bone biopsy sent to micro, intraoperative post lavage swab sent to micro. -Patient to be discussed with Dr. Jaramillo and associates, further plan per attending physician SUBJECTIVE Pt seen and evaluated at bedside. Patient denies any pain to his left foot this AM. Patient denies any new pedal complaints or overnight events. Patient denies any F/C/N/V, or SOB. PHYSICAL EXAM Vital Signs BP 139/80 Pulse 77 Temp 98.1 F (36.7 C) (Oral) Resp 14 Ht 5' 8 Wt 81.6 kg (180 lb) SpO2 97% BMI 27.37 kg/m Wt Readings from Last 25 Encounters: 01/09/22 81.6 kg (180 lb) 01/09/22 87.1 kg (192 lb) 10/19/20 83.3 kg (183 lb 10.3 oz) 10/17/20 86.2 kg (190 lb) 09/13/20 88.5 kg (195 lb) 08/15/20 88.9 kg (195 lb 15.8 oz) 08/14/20 88.9 kg (196 lb) 07/29/20 88.9 kg (196 lb) 07/26/20 88.5 kg (195 lb) 07/26/20 90.7 kg (200 lb) 08/02/16 100.2 kg (221 lb) Ins & Outs Intake/Output Summary (Last 24 hours) at 01/14/2022 0558 Last data filed at 01/14/2022 0500 Gross per 24 hour Intake 782.22 ml Output 4600 ml Net -3817.78 ml General: No acute distress, resting comfortably in bed. LE Physical Exam: VASCULAR: DP pulse weakly palpable, left and PT pulse non-palpable, left. CFT < 3 sec to all digits, left.Mild edema appreciated to the level of the ankle, left . NEUROLOGICAL: Light touch sensation intact to the level of the mid-tibia, left. DERMATOLOGICAL: Skin is warm, dry and supple, B/L. Left partial 5th ray surgical site: Surgical incisional wound noted to the right distal lateral foot. No carli surgical wound erythema, mild warmth, and no malodor noted. Skin edges well approximated with appropriate tension, appropriate perfusion, sutures intact, and no signs of wound dehiscence noted. Minimal active bleeding noted to the most distal aspect of the incision. Left calcaneal wound: Mixed fibrotic/granular wound base appreciated to the plantar aspect of the left calcaneus. No purulence appreciated. Healthy bleeding skin edges noted. No purulence noted from wound. Does not probe to bone. Mild erythema and calor noted carli-wound consistent with post-surgical debridement. No edema appreciated. MUSCULOSKELETAL: No TTP to left foot. Muscle strength, 5/5, left. Previous BKA noted, right. Gastro-soleal equinus appreciated, left. LABS Lab Results Component Value Date WBC 8.90 01/12/2022 HGB 7.7 (L) 01/12/2022 HCT 22.9 (L) 01/12/2022 MCV 87.1 01/12/2022 PLT 296 01/12/2022 Lab Results Component Value Date GLUCOSE 126 (H) 01/12/2022 CALCIUM 9.2 01/12/2022 NA 137 01/12/2022 K 4.2 01/12/2022 CL 105 01/12/2022 BUN 34 (H) 01/12/2022 CREATININE 1.33 (H) 01/13/2022 Ultrasound duplex carotid Final Result XR Chest 1 View Final Result Low lung volume portable chest radiograph with grossly clear lungs. Workstation ID: [id number] MR Foot Left Without Contrast Final Result 1. Acute osteomyelitis in the plantar calcaneus adjacent to the ulcer. 2. Acute osteomyelitis in the 5th metatarsal head and neck and proximal 5th phalanx adjacent to theulcer. 3. No soft tissue abscess. 4. Nonspecific increased signal in the distal phalanx of the 1st, 2nd and 3rd digits. This could bedue to artifact. This finding can also be seen with Raynaud's phenomenon or frostbite injury. 5. Intramuscular edema and atrophy in the plantar foot musculature compatible with neuropathy. [facility] Workstation ID: [id number] MR Heel Left Without Contrast Final Result 1. Acute osteomyelitis in the plantar calcaneus adjacent to the ulcer. 2. Acute osteomyelitis in the 5th metatarsal head and neck and proximal 5th phalanx adjacent to theulcer. 3. No soft tissue abscess. 4. Nonspecific increased signal in the distal phalanx of the 1st, 2nd and 3rd digits. This could bedue to artifact. This finding can also be seen with Raynaud's phenomenon or frostbite injury. 5. Intramuscular edema and atrophy in the plantar foot musculature compatible with neuropathy. [facility] Workstation ID: [id number] Ultrasound duplex arterial legs bilat Final Result US Doppler ankle/brachial index Final Result XR Foot Left 3+ Views (Standard) Final Result 1. Suspected shallow soft tissue ulceration of the heel with forefoot soft tissue swelling. No radiographic evidence of osteomyelitis of the calcaneus. 2. Chronic appearing erosion along the lateral aspect of the 2nd metatarsal head new from 07/26/2020. If there is a nearby soft tissue ulceration osteomyelitis is not excluded. Alternatively, this raises the possibility of gout or less likely an inflammatory arthritis. Workstation ID: [id number] * Adalberto Hernandez DO - 01/13/2022 8:06 AM EST [facility] [place] Assessment and Plan Mikayla Pappas is a 61 y.o. male patient of Greyson Dominguez MD with history of PVD, Diabetestype II, CVA, depression, LORENA, R BKA, anemia, HTN, HLD, urinary retention presented with worsening left diabetic foot ulcer. Left Diabetic Foot ulcer, Acute on Chronic Presenting w/worsening left foot wound Afebrile, HDS; no SIRS or sepsis on admission ESR/CRP mildly elevated, WBC 11K XR L foot w/o OM Podiatry consulted - no urgent plan for OR at this time MRI left foot/heel with acute osteo in the plantar calcaneus and 5th metatarsal Ancef/Flagyl/Vanc started in ED, continued on admission Wound culture growing MRSA PT/OT consulted Vascular surgery consulted; no vascular surgical intervention recommended at this time Continue with aspirin and statin S/P OR on 01/12 per podiatry Await OR cultures Consult ID Anemia Hgb 8.4 on admission Iron panel with low iron No signs of bleeding noted Will start iron supplementation Hgb 7.7 on 01/12 Monitor Hgb level T2DM, insulin dependent Diabetic Peripheral Neuropathy Chronic, w/hyperglycemia on admission, not in DKA HA1c 6.7 Home oral agents held Lantus continued Accuchecks and SSI ordered Monitor and titrate PRN Urinary Retention Chronic, managed w/chronic indwelling todd Last changed 1wk ago at [facility] Maintain todd F/U OP Chronic Normocytic Anemia Baseline Hgb ~10, Hgb 8.4 on admission No active s/sx of bleeding, HDS Will check iron studies and B12/folate Monitor daily CBC, transfuse for Hgb <7 H/o CVA Generalized Weakness 10/2020, treated at [facility] Residual bilateral weakness, no deficits Pt resides at [facility] for rehab PT/OT consult Continue asa and lipitor Essential HTN Normotensive on arrival Per [facility] med list pt only on lasix, previously on norvasc 10, losartan 25, monitor for need to restart medications. Monitor BP HLD Continue home statin Depression Continue home cymbalta Mood appears stable LOERNA Continue CPAP at bedtime and with naps Pt desats to ~89% while sleeping BAILEE (resolved) Likely pre-renal in the setting of diuretic use Cr 1.3 on admission, baseline WNL Lasix held on amdission Encouraged PO hydration Monitor UOP Daily RFP Limit nephrotoxins and PICC as able Cr 1.19 on 01/10 Family Contact Information Regine Pappas (Child) [phone] Code Status: Full Code - Unverified Quality Measures DVT Prophylaxis: Lovenox subcutaneous Todd Catheter: None Disposition Discharge Location: [facility] Estimated Discharge Date: ; pending podiatry clearance Outpatient Testing: TBD Subjective Patient was seen and examined this morning. No acute events overnight. Patient admits to difficultysleeping overnight so he is tired this morning. Patient denies any chest pain, shortness of breath or abdominal pain. There were no reported fevers overnight. Review of Systems All systems have been reviewed and are negative except as noted in HPI or below Objective BP (!) 157/74 (Patient Position: Lying) Pulse 86 Temp 98.5 F (36.9 C) (Oral) Resp 16 Ht 5' 8 Wt 81.6 kg (180 lb) SpO2 97% BMI 27.37 kg/m Physical Examination General Appearance: alert; chronically ill appearing; in no acute distress HEENT: Head- normocephalic; Eyes- EOMI, sclera anicteric; Ears- hearing intact; Nose- no nasal discharge; Throat- mucous membranes moist Cardiovascular: regular rate and rhythm; normal S1, S2; no murmurs, rubs, clicks or gallops; no peripheral edema Respiratory: lungs clear to auscultation; without wheezes, rales or rhonchi; on room air Abdomen: soft, non-tender, non-distended; positive bowel sounds Neurological: oriented x 3; normal speech; no focal findings or movement disorder noted Musculoskeletal: R BKA Skin: normal coloration; left foot dressing c/d/i Psych: normal mood and affect Results/Medications Reviewed 01/13/2022 8:06 AM Laboratory, Radiology, Medications and Transcriptions * Edouard Walden DPM - 01/13/2022 6:22 AM EST Foot and Ankle Surgery Progress Note ASSESSMENT Mikayla Pappas 61 y.o. male with PMHx PVD, Diabetes type II, CVA, depression, LORENA, R BKA, anemia, HTN, HLD, urinary retention presents with left DFU to left sub 5th MT head and dry eschar to heel.Found to have osteomyelitis of the fifth metatarsal and concern for osteomyelitis of the calcaneus. - s/p left partial 5th ray resection, left I&D of heel (01/12) - AVSS -Labs reviewed -XR left foot, 01/09/2022: No radiographic evidence of osteomyelitis to the calcaneus, no obvious gas -MRI left foot, 01/09/2022: Acute OM to 5th MT head/neck and 5th proximal phalanx base, Acute OM to plantar calcaneus -NIVS L foot, 01/09/2022: ANUP 1.2, TBI normal, sig stenosis KIM -Blood culture, 01/09/2022: NGTD -Swab cx left foot, 01/09/2022: Staph aureus - Intra-op L 5th ray bone cx: GPC, GPB, GNB - Intra-op L calc bone cx: NOS - Intra-op post lavage swab cx L foot: NOS PLAN: -Patient seen and evaluated at bedside -Dressing left CDI, no strike through noted. -NWB to LLE w/ assistive device and postop shoe - Heel boots while in bed, bilateral -Empiric IV abx per primary -Patient has preoperative risk stratification, [place] [facility] [place] - No further OR planned this admission. Anticipate patient will be OK for discharge early next weekpending pathology results and wound VAC placement. Continue IV abx, intraoperative 5th ray sent to micro, intraoperative calcaneal bone biopsy sent to micro, intraoperative post lavage swab sent to micro. -Patient to be discussed with Dr. Jaramillo and associates, further plan per attending physician SUBJECTIVE Pt seen and evaluated at bedside. Patient states that he does have some pain to his left foot this AM. He did not know that he had to ask to get the pain meds but now understands. States that the pain is manageable currently. Patient denies any new pedal complaints or overnight events. Patient denies any F/C/N/V, or SOB. PHYSICAL EXAM Vital Signs BP (!) 152/73 (Patient Position: Lying) Pulse (!) 108 Temp 98.9 F (37.2 C) (Oral) Resp 14 Ht 5' 8 Wt 81.6 kg (180 lb) SpO2 95% BMI 27.37 kg/m Wt Readings from Last 25 Encounters: 01/09/22 81.6 kg (180 lb) 01/09/22 87.1 kg (192 lb) 10/19/20 83.3 kg (183 lb 10.3 oz) 10/17/20 86.2 kg (190 lb) 09/13/20 88.5 kg (195 lb) 08/15/20 88.9 kg (195 lb 15.8 oz) 08/14/20 88.9 kg (196 lb) 09/25/20 88.9 kg (196 lb) 07/26/20 88.5 kg (195 lb) 07/26/20 90.7 kg (200 lb) 08/02/16 100.2 kg (221 lb) Ins & Outs Intake/Output Summary (Last 24 hours) at 01/13/2022 0622 Last data filed at 01/12/2022 2200 Gross per 24 hour Intake 1155 ml Output 1420 ml Net -265 ml General: No acute distress, resting comfortably in bed. Dressing left CDI, no strikethrough noted. See previous PE below. LE Physical Exam: VASCULAR: DP pulse weakly palpable, left and PT pulse non-palpable, left. CFT < 3 sec to all digits, left.Mild edema appreciated to the level of the ankle, left . NEUROLOGICAL: Light touch sensation intact to the level of the mid-tibia, left. DERMATOLOGICAL: Skin is warm, dry and supple, B/L. Left subfifth metatarsal head wound: Full thickness ulceration noted to plantar aspect of the fifth metatarsal, left, measuring 1.2 cm x1.5 cm x 1.0 cm deep. Wound base is Mixed fibro-granular. Wound does not probe to bone, but does probe deeply to periosteum. No Malodor. No erythema, edema, calor, purulence, drainage, ecchymosis, crepitus, or fluctuance appreciated. Left calcaneal wound: Dry eschar appreciated to the plantar aspect of the left calcaneus. No purulence appreciated. No deep probe appreciated. Wound does not probe to bone. No malodor. No crepitus, fluctuance, bogginess appreciated. MUSCULOSKELETAL: No TTP to left foot. Muscle strength, 5/5, left. Previous BKA noted, right. Gastro-soleal equinus appreciated, left. LABS Lab Results Component Value Date WBC 8.90 01/12/2022 HGB 7.7 (L) 01/12/2022 HCT 22.9 (L) 01/12/2022 MCV 87.1 01/12/2022 PLT 296 01/12/2022 Lab Results Component Value Date GLUCOSE 126 (H) 01/12/2022 CALCIUM 9.2 01/12/2022 NA 137 01/12/2022 K 4.2 01/12/2022 CL 105 01/12/2022 BUN 34 (H) 01/12/2022 CREATININE 1.06 01/12/2022 Ultrasound duplex carotid Final Result XR Chest 1 View Final Result Low lung volume portable chest radiograph with grossly clear lungs. Workstation ID: [id number] MR Foot Left Without Contrast Preliminary Result 1. Acute osteomyelitis in the plantar calcaneus adjacent to the ulcer. 2. Acute osteomyelitis in the 5th metatarsal head and neck and proximal 5th phalanx adjacent to theulcer. 3. No soft tissue abscess. 4. Nonspecific increased signal in the distal phalanx of the 1st, 2nd and 3rd digits. This could bedue to artifact. This finding can also be seen with Raynaud's phenomenon or frostbite injury. 5. Intramuscular edema and atrophy in the plantar foot musculature compatible with neuropathy. [employer] Workstation ID: [id number] MR Heel Left Without Contrast Preliminary Result 1. Acute osteomyelitis in the plantar calcaneus adjacent to the ulcer. 2. Acute osteomyelitis in the 5th metatarsal head and neck and proximal 5th phalanx adjacent to theulcer. 3. No soft tissue abscess. 4. Nonspecific increased signal in the distal phalanx of the 1st, 2nd and 3rd digits. This could bedue to artifact. This finding can also be seen with Raynaud's phenomenon or frostbite injury. 5. Intramuscular edema and atrophy in the plantar foot musculature compatible with neuropathy. [employer] Workstation ID: [id number] Ultrasound duplex arterial legs bilat Final Result US Doppler ankle/brachial index Final Result XR Foot Left 3+ Views (Standard) Final Result 1. Suspected shallow soft tissue ulceration of the heel with forefoot soft tissue swelling. No radiographic evidence of osteomyelitis of the calcaneus. 2. Chronic appearing erosion along the lateral aspect of the 2nd metatarsal head new from 07/26/2020. If there is a nearby soft tissue ulceration osteomyelitis is not excluded. Alternatively, this raises the possibility of gout or less likely an inflammatory arthritis. Workstation ID: [id number] * Nicolas Davila RPh,PharmD - 01/12/2022 6:12 PM EST PHARMACOTHERAPY NOTE: Vancomycin Therapy Follow-up Assessment / Plan: Mikayla Pappas is a 61 y.o. male initiated on Vancomycin for Severe Diabetic Foot Infection For invasive MRSA infections, target AUC level is 400-600 Vancomycin level (~17 hour level): 26.7. above goal range with a predicted AUC: 819.. AUC level is above goal. Will Adjust Vancomycin to 1250mg IV Q24H to get a predicted AUC:STEPHIE: 512 (400 to 600) Pharmacy to continue managing Vancomycin therapy and will repeat levels when clinically relevant. Subjective: Current antibiotic regimen includes: Vancomycin 1250mg Q24H Objective: Labs include: WBC (K/mcL) Date Value 01/12/2022 8.90 Creatinine (mg/dL) Date Value 01/12/2022 1.06 10/17/2020 1.2 Estimated Creatinine Clearance: 71.7 mL/min (by C-G formula based on SCr of 1.06 mg/dL). Patient Tmax (last 24 hours): 98.5 F Pharmacist: Nicolas Davila RPh,PharmD Contact Number: [address] pharmacist * Jada Lewis RN - 01/12/2022 7:56 AM EST Care Management Progress Note Patient Name: Mikayla Pappas Working Discharge Plan: D/C Disposition: Nursing Home Care Agency/Destination: [facility] HME: None Transportation Plan: Does the patient need discharge transport arranged?: Yes Transportation Type: Ambulance Options Reviewed: Possible expense, Explained services/benefits, Confirm Consent Form Signature Pending/Established Referrals: Return to [facility] Barriers to Discharge/Plan for Follow Up: Per Podiatry note: Plan for OR today for left partial fifth ray resection, I&D, calcaneal bone biopsy. PT/OT rec up to 5 on discharge. Plan for pt to return to home [facility] on discharge. CM to touch base with facility and set up transport when medially ready. 1300: Received call from facility liaison Radha, requested update and snf bundle to be sent. Bundlesent inbasket at this time. Will keep facility updated. * Adalberto Hernandez DO - 01/12/2022 7:30 AM EST [facility] [place] Assessment and Plan Mikayla Pappas is a 61 y.o. male patient of Greyson Dominguez MD with history of PVD, Diabetestype II, CVA, depression, LORENA, R BKA, anemia, HTN, HLD, urinary retention presented with worsening left diabetic foot ulcer. Left Diabetic Foot ulcer, Acute on Chronic Presenting w/worsening left foot wound Afebrile, HDS; no SIRS or sepsis on admission ESR/CRP mildly elevated, WBC 11K XR L foot w/o OM Podiatry consulted - no urgent plan for OR at this time MRI left foot/heel with acute osteo in the plantar calcaneus and 5th metatarsal Ancef/Flagyl/Vanc started in ED, continued on admission PT/OT consulted Vascular surgery consulted; no vascular surgical intervention recommended at this time Continue with aspirin and statin Plan for OR on 01/12 per podiatry Preoperative Risk Stratisfication No active cardiac symptoms Imaging: CXR with low lung volume but grossly clear lungs RCRI score is 2 given insulin use and history of CVA Based on ACC/AHA guidelines, patient is at an acceptable risk for surgery May proceed with surgery without further cardiac testing Anemia Hgb 8.4 on admission Iron panel with low iron No signs of bleeding noted Will start iron supplementation Hgb 7.7 on 01/12 Monitor Hgb level T2DM, insulin dependent Diabetic Peripheral Neuropathy Chronic, w/hyperglycemia on admission, not in DKA HA1c 6.7 Home oral agents held Lantus continued Accuchecks and SSI ordered Monitor and titrate PRN Urinary Retention Chronic, managed w/chronic indwelling todd Last changed 1wk ago at [facility] Maintain todd F/U OP Chronic Normocytic Anemia Baseline Hgb ~10, Hgb 8.4 on admission No active s/sx of bleeding, HDS Will check iron studies and B12/folate Monitor daily CBC, transfuse for Hgb <7 H/o CVA Generalized Weakness 10/2020, treated at [place] Residual bilateral weakness, no deficits Pt resides at [facility] for rehab PT/OT consult Continue asa and lipitor Essential HTN Normotensive on arrival Per [facility] med list pt only on lasix, previously on norvasc 10, losartan 25, monitor for need to restart medications. Monitor BP HLD Continue home statin Depression Continue home cymbalta Mood appears stable LORENA Continue CPAP at bedtime and with naps Pt desats to ~89% while sleeping BAILEE (resolved) Likely pre-renal in the setting of diuretic use Cr 1.3 on admission, baseline WNL Lasix held on amdission Encouraged PO hydration Monitor UOP Daily RFP Limit nephrotoxins and PICC as able Cr 1.19 on 01/10 Family Contact Information Regine Pappas (Child) [phone] Code Status: Full Code Quality Measures DVT Prophylaxis: Lovenox subcutaneous Todd Catheter: None Disposition Discharge Location: ECF Estimated Discharge Date: TBD; pending podiatry clearance Outpatient Testing: TBD Subjective Patient was seen and examined this morning. No acute events overnight. Patient denies any chest pain, shortness of breath or abdominal pain. There were no reported fevers overnight. Review of Systems All systems have been reviewed and are negative except as noted in HPI or below Objective BP 126/69 (BP Location: Left arm, Patient Position: Lying) Pulse 72 Temp 98 F (36.7 C) (Oral) Resp 14 Ht 5' 8 Wt 81.6 kg (180 lb) SpO2 98% BMI 27.37 kg/m Physical Examination General Appearance: alert; chronically ill appearing; in no acute distress HEENT: Head- normocephalic; Eyes- EOMI, sclera anicteric; Ears- hearing intact; Nose- no nasal discharge; Throat- mucous membranes moist Cardiovascular: regular rate and rhythm; normal S1, S2; no murmurs, rubs, clicks or gallops; no peripheral edema Respiratory: lungs clear to auscultation; without wheezes, rales or rhonchi; on room air Abdomen: soft, non-tender, non-distended; positive bowel sounds Neurological: oriented x 3; normal speech; no focal findings or movement disorder noted Musculoskeletal: R BKA Skin: normal coloration; left foot dressing c/d/i Psych: normal mood and affect Results/Medications Reviewed 01/12/2022 7:30 AM Laboratory, Radiology, Medications and Transcriptions * Cedric Tan DPM - 01/12/2022 5:24 AM EST Foot and Ankle Surgery Progress Note ASSESSMENT Mikayla Pappas 61 y.o. male with PMHx PVD, Diabetes type II, CVA, depression, LORENA, R BKA, anemia, HTN, HLD, urinary retention presents with left DFU to left sub 5th MT head and dry eschar to heel.Found to have osteomyelitis of the fifth metatarsal and concern for osteomyelitis of the calcaneus. - AVSS -Labs reviewed: WBC 8.9, Hgb 7.7, INR 1.3 -XR left foot, 01/09/2022: No radiographic evidence of osteomyelitis to the calcaneus, no obvious gas -MRI left foot, 01/09/2022: Acute OM to 5th MT head/neck and 5th proximal phalanx base, Acute OM to plantar calcaneus -NIVS L foot, 01/09/2022: ANUP 1.2, TBI normal, sig stenosis KIM -Blood culture, 01/09/2022: NGTD -Swab cx left foot, 01/09/2022: Staph aureus PLAN: -Patient seen and evaluated at bedside -Dressing left CDI, no strike through noted. Leave CDI prior to OR -NWB to LLE w/ assistive device and postop shoe - Heel boots while in bed, bilateral -Empiric IV abx per primary -Patient has preoperative risk stratification, appreciate [facility] - Plan for OR today for left partial fifth ray resection, I&D, calcaneal bone biopsy. Continue IV abx per primary. - Continue NPO prior to OR. Consent obtained and placed in chart. Risks, benefits and alternatives were discussed at length with patient. All questions answered to patient's satisfaction. Will restart anticoagulation POD1. -Patient to be discussed with Dr. Jaramillo and associates, further plan per attending physician SUBJECTIVE Pt seen and evaluated at bedside. Resting comfortably. Patient denies pain to the left lower extremity at this time. Does report cramping to the posterior calf intermittently. Reports understanding of plan for OR today. States has had nothing to eat or drink past midnight. Denies any overnight events or any n/v/f/c/sob or chest pain. No new pedal complaints. PHYSICAL EXAM Vital Signs BP 126/69 (BP Location: Left arm, Patient Position: Lying) Pulse 72 Temp 98 F (36.7 C) (Oral) Resp 14 Ht 5' 8 Wt 81.6 kg (180 lb) SpO2 98% BMI 27.37 kg/m Wt Readings from Last 25 Encounters: 01/09/22 81.6 kg (180 lb) 01/09/22 87.1 kg (192 lb) 10/19/20 83.3 kg (183 lb 10.3 oz) 10/17/20 86.2 kg (190 lb) 09/13/20 88.5 kg (195 lb) 08/15/20 88.9 kg (195 lb 15.8 oz) 08/14/20 88.9 kg (196 lb) 07/29/20 88.9 kg (196 lb) 07/26/20 88.5 kg (195 lb) 07/26/20 90.7 kg (200 lb) 08/02/16 100.2 kg (221 lb) Ins & Outs Intake/Output Summary (Last 24 hours) at 01/12/2022 0525 Last data filed at 01/12/2022 0020 Gross per 24 hour Intake 480 ml Output 700 ml Net -220 ml General: No acute distress, resting comfortably in bed. Dressing left CDI, no strikethrough noted. See previous PE below. LE Physical Exam: VASCULAR: DP pulse weakly palpable, left and PT pulse non-palpable, left. CFT < 3 sec to all digits, left.Mild edema appreciated to the level of the ankle, left . NEUROLOGICAL: Light touch sensation intact to the level of the mid-tibia, left. DERMATOLOGICAL: Skin is warm, dry and supple, B/L. Left subfifth metatarsal head wound: Full thickness ulceration noted to plantar aspect of the fifth metatarsal, left, measuring 1.2 cm x1.5 cm x 1.0 cm deep. Wound base is Mixed fibro-granular. Wound does not probe to bone, but does probe deeply to periosteum. No Malodor. No erythema, edema, calor, purulence, drainage, ecchymosis, crepitus, or fluctuance appreciated. Left calcaneal wound: Dry eschar appreciated to the plantar aspect of the left calcaneus. No purulence appreciated. No deep probe appreciated. Wound does not probe to bone. No malodor. No crepitus, fluctuance, bogginess appreciated. MUSCULOSKELETAL: No TTP to left foot. Muscle strength, 5/5, left. Previous BKA noted, right. Gastro-soleal equinus appreciated, left. LABS Lab Results Component Value Date WBC 8.90 01/12/2022 HGB 7.7 (L) 01/12/2022 HCT 22.9 (L) 01/12/2022 MCV 87.1 01/12/2022 PLT 296 01/12/2022 Lab Results Component Value Date GLUCOSE 95 01/11/2022 CALCIUM 9.0 01/11/2022 NA 136 01/11/2022 K 4.6 01/11/2022 CL 102 01/11/2022 BUN 35 (H) 01/11/2022 CREATININE 1.09 01/11/2022 Ultrasound duplex carotid Final Result XR Chest 1 View Final Result Low lung volume portable chest radiograph with grossly clear lungs. Workstation ID: [id number] MR Foot Left Without Contrast Preliminary Result 1. Acute osteomyelitis in the plantar calcaneus adjacent to the ulcer. 2. Acute osteomyelitis in the 5th metatarsal head and neck and proximal 5th phalanx adjacent to theulcer. 3. No soft tissue abscess. 4. Nonspecific increased signal in the distal phalanx of the 1st, 2nd and 3rd digits. This could bedue to artifact. This finding can also be seen with Raynaud's phenomenon or frostbite injury. 5. Intramuscular edema and atrophy in the plantar foot musculature compatible with neuropathy. [employer] Workstation ID: [id number] MR Heel Left Without Contrast Preliminary Result 1. Acute osteomyelitis in the plantar calcaneus adjacent to the ulcer. 2. Acute osteomyelitis in the 5th metatarsal head and neck and proximal 5th phalanx adjacent to theulcer. 3. No soft tissue abscess. 4. Nonspecific increased signal in the distal phalanx of the 1st, 2nd and 3rd digits. This could bedue to artifact. This finding can also be seen with Raynaud's phenomenon or frostbite injury. 5. Intramuscular edema and atrophy in the plantar foot musculature compatible with neuropathy. [employer] Workstation ID: [id number] Ultrasound duplex arterial legs bilat Final Result US Doppler ankle/brachial index Final Result XR Foot Left 3+ Views (Standard) Final Result 1. Suspected shallow soft tissue ulceration of the heel with forefoot soft tissue swelling. No radiographic evidence of osteomyelitis of the calcaneus. 2. Chronic appearing erosion along the lateral aspect of the 2nd metatarsal head new from 07/26/2020. If there is a nearby soft tissue ulceration osteomyelitis is not excluded. Alternatively, this raises the possibility of gout or less likely an inflammatory arthritis. Workstation ID: [id number] * Adalberto Hernandez, - 01/11/2022 7:20 AM EST [facility] [place] Assessment and Plan Mikayla Pappas is a 61 y.o. male patient of Greyson Dominguez MD with history of PVD, Diabetestype II, CVA, depression, LORENA, R BKA, anemia, HTN, HLD, urinary retention presented with worsening left diabetic foot ulcer. Left Diabetic Foot ulcer, Acute on Chronic Presenting w/worsening left foot wound Afebrile, HDS; no SIRS or sepsis on admission ESR/CRP mildly elevated, WBC 11K XR L foot w/o OM Podiatry consulted - no urgent plan for OR at this time MRI left foot/heel with acute osteo in the plantar calcaneus and 5th metatarsal Ancef/Flagyl/Vanc started in ED, continued on admission PT/OT consulted Vascular surgery consulted; no vascular surgical intervention recommended at this time Continue with aspirin and statin Plan for OR on 01/12 per podiatry Preoperative Risk Stratisfication No active cardiac symptoms Imaging: CXR with low lung volume but grossly clear lungs RCRI score is 2 given insulin use and history of CVA Based on ACC/AHA guidelines, patient is at an acceptable risk for surgery May proceed with surgery without further cardiac testing T2DM, insulin dependent Diabetic Peripheral Neuropathy Chronic, w/hyperglycemia on admission, not in DKA HA1c 6.7 Home oral agents held Lantus continued Accuchecks and SSI ordered Monitor and titrate PRN Urinary Retention Chronic, managed w/chronic indwelling todd Last changed 1wk ago at [facility] Maintain todd F/U OP Chronic Normocytic Anemia Baseline Hgb ~10, Hgb 8.4 on admission No active s/sx of bleeding, HDS Will check iron studies and B12/folate Monitor daily CBC, transfuse for Hgb <7 H/o CVA Generalized Weakness 10/2020, treated at [facility] Residual bilateral weakness, no deficits Pt resides at [facility] for rehab PT/OT consult Continue asa and lipitor Essential HTN Normotensive on arrival Per ECF med list pt only on lasix, previously on norvasc 10, losartan 25, monitor for need to restart medications. Monitor BP HLD Continue home statin Depression Continue home cymbalta Mood appears stable LORENA Continue CPAP at bedtime and with naps Pt desats to ~89% while sleeping BAILEE (resolved) Likely pre-renal in the setting of diuretic use Cr 1.3 on admission, baseline WNL Lasix held on amdission Encouraged PO hydration Monitor UOP Daily RFP Limit nephrotoxins and PICC as able Cr 1.19 on 01/10 Family Contact Information Regine Pappas (Child) [phone] Code Status: Full Code Quality Measures DVT Prophylaxis: Lovenox subcutaneous Todd Catheter: None Disposition Discharge Location: ECF Estimated Discharge Date: TBD; pending podiatry clearance Outpatient Testing: TBD Subjective Patient was seen and examined this morning. No acute events overnight. Patient admits vomiting earlier this morning but denies any current nausea. Patient also denies any chest pain, shortness of breath or abdominal pain. There were no reported fevers overnight. Review of Systems All systems have been reviewed and are negative except as noted in HPI or below Objective BP (!) 151/74 (BP Location: Left arm, Patient Position: Lying) Pulse 72 Temp 98.1 F (36.7 C) (Oral) Resp 17 Ht 5' 8 Wt 81.6 kg (180 lb) SpO2 96% BMI 27.37 kg/m Physical Examination General Appearance: alert; chronically ill appearing; in no acute distress HEENT: Head- normocephalic; Eyes- EOMI, sclera anicteric; Ears- hearing intact; Nose- no nasal discharge; Throat- mucous membranes moist Cardiovascular: regular rate and rhythm; normal S1, S2; no murmurs, rubs, clicks or gallops; no peripheral edema Respiratory: lungs clear to auscultation; without wheezes, rales or rhonchi; on room air Abdomen: soft, non-tender, non-distended; positive bowel sounds Neurological: oriented x 3; normal speech; no focal findings or movement disorder noted Musculoskeletal: R BKA Skin: normal coloration; left foot dressing c/d/i Psych: normal mood and affect Results/Medications Reviewed 01/11/2022 7:20 AM Laboratory, Radiology, Medications and Transcriptions * Cedric Tan DPM - 01/11/2022 4:39 AM EST Foot and Ankle Surgery Progress Note ASSESSMENT Mikayla Pappas 61 y.o. male with PMHx PVD, Diabetes type II, CVA, depression, LORENA, R BKA, anemia, HTN, HLD, urinary retention presents with left DFU to left sub 5th MT head and dry eschar to heel. - Afebrile, hypertensive, otherwise VSS -Labs reviewed. -XR left foot, 01/09/2022: No radiographic evidence of osteomyelitis to the calcaneus, no obvious gas -MRI left foot, 01/09/2022: Acute OM to 5th MT head/neck and 5th proximal phalanx base, Acute OM to plantar calcaneus -NIVS L foot, 01/09/2022: ANUP 1.2, TBI normal, sig stenosis KIM -Blood culture, 01/09/2022: NGTD -Swab cx left foot, 01/09/2022: GPC's, GNB's PLAN: -Patient seen and evaluated at bedside -Dressing left CDI, no strike through noted. Appreciate nursing assistance with dressing changes. -NWB to LLE w/ assistive device and postop shoe - Heel boots while in bed, bilateral -Empiric IV abx per primary -Patient has preoperative risk stratification, appreciate [facility] [place]. -Tentative plan for OR tomorrow for left partial fifth ray resection, I&D with bone biopsy of the calcaneus pending OR availability. MRI with acute OM to the fifth metatarsal, fifth proximal phalanx, calcaneus. Vascular consulted, no intervention planned. Continue IV ABX per primary, tailor to cultures as able. -Patient to be discussed with Dr. Jaramillo and associates, further plan per attending physician SUBJECTIVE Pt seen and evaluated at bedside. Resting comfortably. Patient reports no pain to the left lower extremity this time. Patient states he would be amenable to partial forefoot amputation if required. Denies any overnight events or any n/v/f/c/sob or chest pain. No new pedal complaints. PHYSICAL EXAM Vital Signs BP (!) 156/70 (BP Location: Right arm, Patient Position: Lying) Pulse 80 Temp 98.2 F (36.8 C) (Oral) Resp 18 Ht 5' 8 Wt 81.6 kg (180 lb) SpO2 96% BMI 27.37 kg/m Wt Readings from Last 25 Encounters: 01/09/22 81.6 kg (180 lb) 01/09/22 87.1 kg (192 lb) 10/19/20 83.3 kg (183 lb 10.3 oz) 10/17/20 86.2 kg (190 lb) 09/13/20 88.5 kg (195 lb) 08/15/20 88.9 kg (195 lb 15.8 oz) 08/14/20 88.9 kg (196 lb) 07/29/20 88.9 kg (196 lb) 07/26/20 88.5 kg (195 lb) 07/26/20 90.7 kg (200 lb) 08/02/16 100.2 kg (221 lb) Ins & Outs Intake/Output Summary (Last 24 hours) at 01/11/2022 0439 Last data filed at 01/11/2022 0300 Gross per 24 hour Intake 1287 ml Output 2850 ml Net -1563 ml General: No acute distress, resting comfortably in bed. Dressing left CDI, no strikethrough noted. See previous PE below. LE Physical Exam: VASCULAR: DP pulse weakly palpable, left and PT pulse non-palpable, left. CFT < 3 sec to all digits, left.Mild edema appreciated to the level of the ankle, left . NEUROLOGICAL: Light touch sensation intact to the level of the mid-tibia, left. DERMATOLOGICAL: Skin is warm, dry and supple, B/L. Left subfifth metatarsal head wound: Full thickness ulceration noted to plantar aspect of the fifth metatarsal, left, measuring 1.2 cm x1.5 cm x 1.0 cm deep. Wound base is Mixed fibro-granular. Wound does not probe to bone, but does probe deeply to periosteum. No Malodor. No erythema, edema, calor, purulence, drainage, ecchymosis, crepitus, or fluctuance appreciated. Left calcaneal wound: Dry eschar appreciated to the plantar aspect of the left calcaneus. No purulence appreciated. No deep probe appreciated. Wound does not probe to bone. No malodor. No crepitus, fluctuance, bogginess appreciated. MUSCULOSKELETAL: No TTP to left foot. Muscle strength, 5/5, left. Previous BKA noted, right. Gastro-soleal equinus appreciated, left. LABS Lab Results Component Value Date WBC 9.98 01/10/2022 HGB 8.0 (L) 01/10/2022 HCT 25.2 (L) 01/10/2022 MCV 89.0 01/10/2022 PLT 305 01/10/2022 Lab Results Component Value Date GLUCOSE 82 01/10/2022 CALCIUM 9.3 01/10/2022 NA 140 01/10/2022 K 4.7 01/10/2022 CL 104 01/10/2022 BUN 40 (H) 01/10/2022 CREATININE 1.19 01/10/2022 Ultrasound duplex carotid Final Result XR Chest 1 View Final Result Low lung volume portable chest radiograph with grossly clear lungs. Workstation ID: [id number] MR Foot Left Without Contrast Preliminary Result 1. Acute osteomyelitis in the plantar calcaneus adjacent to the ulcer. 2. Acute osteomyelitis in the 5th metatarsal head and neck and proximal 5th phalanx adjacent to theulcer. 3. No soft tissue abscess. 4. Nonspecific increased signal in the distal phalanx of the 1st, 2nd and 3rd digits. This could bedue to artifact. This finding can also be seen with Raynaud's phenomenon or frostbite injury. 5. Intramuscular edema and atrophy in the plantar foot musculature compatible with neuropathy. [employer] Workstation ID: [id number] MR Heel Left Without Contrast Preliminary Result 1. Acute osteomyelitis in the plantar calcaneus adjacent to the ulcer. 2. Acute osteomyelitis in the 5th metatarsal head and neck and proximal 5th phalanx adjacent to theulcer. 3. No soft tissue abscess. 4. Nonspecific increased signal in the distal phalanx of the 1st, 2nd and 3rd digits. This could bedue to artifact. This finding can also be seen with Raynaud's phenomenon or frostbite injury. 5. Intramuscular edema and atrophy in the plantar foot musculature compatible with neuropathy. [employer] Workstation ID: [id number] Ultrasound duplex arterial legs bilat Final Result US Doppler ankle/brachial index Final Result XR Foot Left 3+ Views (Standard) Final Result 1. Suspected shallow soft tissue ulceration of the heel with forefoot soft tissue swelling. No radiographic evidence of osteomyelitis of the calcaneus. 2. Chronic appearing erosion along the lateral aspect of the 2nd metatarsal head new from 07/26/2020. If there is a nearby soft tissue ulceration osteomyelitis is not excluded. Alternatively, this raises the possibility of gout or less likely an inflammatory arthritis. Workstation ID: [id number] Associated attestation - Ramana Jaramillo DPM - 01/11/2022 1:00 PM EST I have reviewed the notes, assessments, and/or procedures performed by Dr. Tan, I concur with hisdocumentation of Mikayla Pappas. Plan for OR tomorrow for left partial 5th ray amputation, left heel I&D, and bone biopsy. NPO at midnight. Ramana Jaramillo DPM AACFAS * Renetta Andrade, CAMERON - 01/10/2022 12:29 PM EST Nutrition Care Initial Assessment Reason for visit: Nursing Referral for nutrition for wound Nutrition Diagnosis: increased nutrient need related to altered skin integrity as evidenced by s/p R BKA 05/2021, wound re opening. Nutrition Intervention: Initiate Medical Food Supplement Nutrition Prescription: Diet: DM 75 g/meal Oral nutrition supplement: geletein tid Tube Feeding: none Nutrition Goals: PO intake > 75% most meals Start Date:01/10/2022 Expected End Date:01/16/2022 Nutrition Education: No needs at this time Assessment: Pertinent clinical information: Patient is a 61 y.o. male with PMHx PVD, Diabetes type II, CVA, depression, LORENA, R BKA, anemia, HTN, HLD, urinary retention presents with left DFU to left sub 5th MT head and dry eschar to heel. Podiatry planing operative management. He states this wound present x few month. He also had R BKA 05/2021. States that he was using a prosthetic and ambulating until the wound re opened; has been in wheel chair since that time. 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 Weight hx: noted Wt Readings from Last 5 Encounters: 01/09/22 81.6 kg (180 lb) 01/09/22 87.1 kg (192 lb) 10/19/20 83.3 kg (183 lb 10.3 oz) 10/17/20 86.2 kg (190 lb) 09/13/20 88.5 kg (195 lb) Current diet order: DM 75 g/meal Recent intake: 75-100% Per intake graphics Current intake Likely meets estimated needs with ONS. Patient/family comments: good appetite Difficulty Chewing/Swallowing: No Skin Integrity: wound noted on R BKA GI Function: LBM 01/08 Physical Appearance:no signs or symptoms of malnutrition Labs: Recent Labs 01/10/22 0710 NA 140 K 4.7 BICARB 22 CL 104 GLUCOSE 82 BUN 40* CREATININE 1.19 Scheduled Meds: aspirin 81 mg Oral Daily atorvastatin 80 mg Oral Nightly ceFAZolin (ANCEF) IVPB 2,000 mg Intravenous Q8H DULoxetine 90 mg Oral at bedtime enoxaparin (LOVENOX) injection 40 mg Subcutaneous Daily gabapentin 100 mg Oral Nightly insulin glargine 22 Units Subcutaneous Nightly lispro insulin 0-15 Units Subcutaneous at bedtime insulin lispro 0-30 Units Subcutaneous TID AC melatonin 5 mg Oral Nightly metroNIDAZOLE 500 mg Intravenous Q8H senna-docusate 1 tablet Oral BID sodium chloride (PF) 5 mL Intravenous Q8H KAM tolterodine 2 mg Oral Daily vancomycin 1,500 mg Intravenous Q18H Continuous Infusions: sodium chloride 0.9 % 20 mL/hr (01/10/22 0523) Estimated Energy Needs Total Energy Estimated Needs: 3402-9432 franky/d Method for Estimating Needs: 25-30 franky/kg ibw Total Protein Estimated Needs: 82-102 gm/d Method for Estimating Needs: 1-1.2 gm/kg ibw Deepthi Andrade RD, LD [phone] * Adalberto Hernandez, DO - 01/10/2022 7:41 AM EST [facility] [place] Assessment and Plan Mikayla Pappas is a 61 y.o. male patient of Greyson Dominguez MD with history of PVD, Diabetestype II, CVA, depression, LORENA, R BKA, anemia, HTN, HLD, urinary retention presented with worsening left diabetic foot ulcer. Left Diabetic Foot ulcer, Acute on Chronic Presenting w/worsening left foot wound Afebrile, HDS; no SIRS or sepsis on admission ESR/CRP mildly elevated, WBC 11K XR L foot w/o OM Podiatry consulted - no urgent plan for OR at this time MRI left foot/heel with acute osteo in the plantar calcaneus and 5th metatarsal Ancef/Flagyl/Vanc started in ED, continued on admission PT/OT consulted Vascular surgery consulted; check carotid US, continue with aspirin and statin Preoperative Risk Stratisfication No active cardiac symptoms Imaging: CXR with low lung volume but grossly clear lungs RCRI score is 2 given insulin use and history of CVA Based on ACC/AHA guidelines, patient is at an acceptable risk for surgery May proceed with surgery without further cardiac testing T2DM, insulin dependent Diabetic Peripheral Neuropathy Chronic, w/hyperglycemia on admission, not in DKA HA1c 6.7 Home oral agents held Lantus continued Accuchecks and SSI ordered Monitor and titrate PRN Urinary Retention Chronic, managed w/chronic indwelling todd Last changed 1wk ago at [facility] Maintain todd F/U OP Chronic Normocytic Anemia Baseline Hgb ~10, Hgb 8.4 on admission No active s/sx of bleeding, HDS Will check iron studies and B12/folate Monitor daily CBC, transfuse for Hgb <7 H/o CVA Generalized Weakness 10/2020, treated at [facility] Residual bilateral weakness, no deficits Pt resides at [facility] for rehab PT/OT consult Continue asa and lipitor Essential HTN Normotensive on arrival Per ECF med list pt only on lasix, previously on norvasc 10, losartan 25, monitor for need to restart medications. Monitor BP HLD Continue home statin Depression Continue home cymbalta Mood appears stable LORENA Continue CPAP at bedtime and with naps Pt desats to ~89% while sleeping BAILEE (resolved) Likely pre-renal in the setting of diuretic use Cr 1.3 on admission, baseline WNL Lasix held on amdission Encouraged PO hydration Monitor UOP Daily RFP Limit nephrotoxins and PICC as able Cr 1.19 on 01/10 Family Contact Information Regine Pappas (Child) [phone] Code Status: Full Code Quality Measures DVT Prophylaxis: Lovenox subcutaneous Todd Catheter: None Disposition Discharge Location: F Estimated Discharge Date: TBD; pending podiatry clearance Outpatient Testing: TBD Subjective Patient was seen and examined this morning. No acute events overnight. Patient denies any chest pain, shortness of breath, abdominal pain or left foot pain. There were no reported fevers overnight. Review of Systems All systems have been reviewed and are negative except as noted in HPI or below Objective BP (!) 152/74 (BP Location: Left arm, Patient Position: Lying) Pulse 75 Temp 97.9 F (36.6 C) (Oral) Resp 18 Ht 5' 8 Wt 81.6 kg (180 lb) SpO2 96% BMI 27.37 kg/m Physical Examination General Appearance: alert; chronically ill appearing; in no acute distress HEENT: Head- normocephalic; Eyes- EOMI, sclera anicteric; Ears- hearing intact; Nose- no nasal discharge; Throat- mucous membranes moist Cardiovascular: regular rate and rhythm; normal S1, S2; no murmurs, rubs, clicks or gallops; no peripheral edema Respiratory: lungs clear to auscultation; without wheezes, rales or rhonchi; on room air Abdomen: soft, non-tender, non-distended; positive bowel sounds Neurological: oriented x 3; normal speech; no focal findings or movement disorder noted Musculoskeletal: R BKA Skin: normal coloration; left foot dressing c/d/i Psych: normal mood and affect Results/Medications Reviewed 01/10/2022 7:41 AM Laboratory, Radiology, Medications and Transcriptions * Cedric Tan DPM - 01/10/2022 4:34 AM EST Foot and Ankle Surgery Progress Note ASSESSMENT Mikayla Pappas 61 y.o. male with PMHx PVD, Diabetes type II, CVA, depression, LORENA, R BKA, anemia, HTN, HLD, urinary retention presents with left DFU to left sub 5th MT head and dry eschar to heel. - Afebrile, hypertensive, otherwise VSS -Labs reviewed. -XR left foot, 01/09/2022: No radiographic evidence of osteomyelitis to the calcaneus, no obvious gas -MRI left foot, 01/09/2022: pending -NIVS L foot, 01/09/2022: pending -Blood culture, 01/09/2022: NGTD -Swab cx left foot, 01/09/2022: GPC's, GNB's PLAN: -Patient seen and evaluated at bedside -Dressing left CDI, no strike through noted. Appreciate nursing assistance with dressing changes. -NWB to LLE w/ assistive device and postop shoe - Heel boots while in bed, bilateral -Empiric IV abx per primary -Patient will require preoperative risk stratification, appreciate [facility]. -No urgent OR planned at this time. Patient presenting with left heel decubitus ulcer and overlyingdry eschar, as well as left subfifth metatarsal wound. No purulence appreciated to either wound. Left subfifth metatarsal wound does probe deeply to periosteum. XR with no definitive OM or gas. MRI read pending. Continue IV ABX per primary, tailor to culture as able. Further plan pending finalized MRI, finalized NIVS, and attending discussion -Patient to be discussed with Dr. Calvillo and associates, further plan per attending physician SUBJECTIVE Pt seen and evaluated at bedside. Resting comfortably. Patient currently denies pain to the left lower extremity. Patient is in isolation. States he is understanding that he may require surgical intervention. Denies any overnight events or any n/v/f/c/sob or chest pain. No new pedal complaints. PHYSICAL EXAM Vital Signs BP (!) 152/74 (BP Location: Left arm, Patient Position: Lying) Pulse 75 Temp 97.9 F (36.6 C) (Oral) Resp 18 Ht 5' 8 Wt 81.6 kg (180 lb) SpO2 96% BMI 27.37 kg/m Wt Readings from Last 25 Encounters: 01/09/22 81.6 kg (180 lb) 01/09/22 87.1 kg (192 lb) 10/19/20 83.3 kg (183 lb 10.3 oz) 10/17/20 86.2 kg (190 lb) 09/13/20 88.5 kg (195 lb) 08/15/20 88.9 kg (195 lb 15.8 oz) 08/14/20 88.9 kg (196 lb) 07/29/20 88.9 kg (196 lb) 07/26/20 88.5 kg (195 lb) 07/26/20 90.7 kg (200 lb) 08/02/16 100.2 kg (221 lb) Ins & Outs Intake/Output Summary (Last 24 hours) at 01/10/2022 0434 Last data filed at 01/10/2022 0100 Gross per 24 hour Intake 0 ml Output 2000 ml Net -2000 ml General: No acute distress, resting comfortably in bed. Dressing left CDI, no strikethrough noted. See previous PE below. LE Physical Exam: VASCULAR: DP pulse weakly palpable, left and PT pulse non-palpable, left. CFT < 3 sec to all digits, left.Mild edema appreciated to the level of the ankle, left . NEUROLOGICAL: Light touch sensation intact to the level of the mid-tibia, left. DERMATOLOGICAL: Skin is warm, dry and supple, B/L. Left subfifth metatarsal head wound: Full thickness ulceration noted to plantar aspect of the fifth metatarsal, left, measuring 1.2 cm x1.5 cm x 1.0 cm deep. Wound base is Mixed fibro-granular. Wound does not probe to bone, but does probe deeply to periosteum. No Malodor. No erythema, edema, calor, purulence, drainage, ecchymosis, crepitus, or fluctuance appreciated. Left calcaneal wound: Dry eschar appreciated to the plantar aspect of the left calcaneus. No purulence appreciated. No deep probe appreciated. Wound does not probe to bone. No malodor. No crepitus, fluctuance, bogginess appreciated. MUSCULOSKELETAL: No TTP to left foot. Muscle strength, 5/5, left. Previous BKA noted, right. Gastro-soleal equinus appreciated, left. LABS Lab Results Component Value Date WBC 11.29 (H) 01/09/2022 HGB 8.4 (L) 01/09/2022 HCT 25.8 (L) 01/09/2022 MCV 89.0 01/09/2022 PLT 316 01/09/2022 Lab Results Component Value Date GLUCOSE 199 (H) 01/09/2022 CALCIUM 9.5 01/09/2022 NA 138 01/09/2022 K 4.8 01/09/2022 CL 100 01/09/2022 BUN 48 (H) 01/09/2022 CREATININE 1.30 01/09/2022 US Doppler ankle/brachial index XR Foot Left 3+ Views (Standard) Final Result 1. Suspected shallow soft tissue ulceration of the heel with forefoot soft tissue swelling. No radiographic evidence of osteomyelitis of the calcaneus. 2. Chronic appearing erosion along the lateral aspect of the 2nd metatarsal head new from 07/26/2020. If there is a nearby soft tissue ulceration osteomyelitis is not excluded. Alternatively, this raises the possibility of gout or less likely an inflammatory arthritis. Workstation ID: [id number] MR Foot Left Without Contrast (Results Pending) MR Heel Left Without Contrast (Results Pending) Ultrasound duplex arterial legs bilat (Results Pending) documented in this [id number] Note* Quick Note - Mimi Cuellar RN - 01/16/2022 10:00 AM EDT Patient seen for vac check. Vac functional without errors at this time. Will continue to follow. [id number] Note* Plan of Care - Wiliam Bryant RN - 01/16/2022 12:15 AM EDT 1950: Assumed care of patient. Pt. [place] 9th [place] [facility] [place] infection to foot. See prior note. Pt. Is A+O X 4. Upon assessment, Pt. Denies any CP, SOB, dizzy, lightheaded, N/V/D. Pt. HasRLE BKA. Pt. Endorses LLE chronic numbness. Pt. Currently has wound vac. In place to LLE Heel. Spencer wrap around foot and up past ankle. Pt. Safety maintained. Bed low and locked, side rails up. Instructed patient to call prior to getting out of bed, call light in reach, table in reach with belongings. Plan Of Care Pt. Safety maintain Bed low and locked Side rails up Telemetry VS as ordered Will notify LIP of pt. New onset CP, SOB, pulse ox < 92 percent 0028: Pt. Request for something else to help him sleep this evening. Melatonin not working per patient. Pl[place] [facility] for something else to help patient sleep, possibly trazodone. 0630: Wound vac. In place With no output throughout night. Problem: Actual or potential alteration in health Goal: Absence of healthcare acquired conditions Outcome: Partially Met Goal: Knowledge of Interdisciplinary Plan of Care Outcome: Partially Met Goal: Knowledge of Enviroment Outcome: Partially Met Problem: Pressure Ulcer - Risk of Goal: Absence of pressure ulcer Outcome: Partially Met Problem: Pain Goal: Manage acute pain Outcome: Partially Met Goal: Manage chronic pain Outcome: Partially Met Goal: Reduced pain sensation Outcome: Partially Met Goal: Achievement of comfort function goal Outcome: Partially Met Problem: Falls, Risk of Goal: Absence of falls Outcome: Partially Met Problem: Breathing Pattern - Ineffective Goal: Effective breathing pattern Outcome: Partially Met [id number] Note* Pharmacy Note - [facility],PharmD - 01/15/2022 2:06 PM EDT Pharmacokinetic Consult - Vancomycin Dosing Mikayla Pappas is a 61 y.o. male who has been consulted for vancomycin dosing for osteomyelitis. Assessment/Plan 1. Vancomycin trough (~24 hrs post dose): 20.1 mcg/mL. At end of goal range. 2. Will reduce dose to vancomycin 1g IV Q24hrs 3. Pharmacy will continue to follow the patient s culture results and clinical progress daily. S/O Goal vancomycin trough: 10-20 mcg/mL Goal vancomycin AUC:STEPHIE: 400-600 mcg*hr/mL Relevant clinical data and objective history reviewed: Lab Results Component Value Date CREATININE 1.05 01/15/2022 Estimated Creatinine Clearance: 72.4 mL/min (by C-G formula based on SCr of 1.05 mg/dL). Wt Readings from Last 3 Encounters: 01/09/22 81.6 kg (180 lb) 01/09/22 87.1 kg (192 lb) 10/19/20 83.3 kg (183 lb 10.3 oz) Gabino NovakD, BCPS Contact: [facility]era [id number] Consult note* CLAY Marcial - 01/15/2022 1:50 PM EDTAssociated Order(s): IP CONSULT TO CARE MANAGEMENT Reason for consult: Wound Vac Placement SW already following. Patient to discharge to facility. Facility notified that this patient will need wound vac. [id number] Consult note* CLAY Marcial - 01/15/2022 1:50 PM EDTAssociated Order(s): IP CONSULT TO CARE MANAGEMENT Reason for consult: Wound Vac Placement SW already following. Patient to discharge to facility. Facility notified that this patient will need wound vac. * Mimi Cuellar RN - 01/15/2022 1:06 PM EDTAssociated Order(s): IP CONSULT TO ENTEROSTOMAL THERAPY Images from the original note were not included. Patient seen for wound vac application. Left heel wound, diabetic ulcer, measuring 5 x 5 x 3cm with large amounts of connective tissue and slough. Red granular tissue at edges, callus to periwound. Cleansed with saline. Two pieces of blackfoam applied to fill wound and create bridge to dorsal foot. Suction obtained utilizing vac [id number] with no noted errors. Trac pad cushioned with kerlix and wrapped with SPENCER Dry suture line on lateral foot, covered with dry dressing. * Rakesh Muñoz MD - 01/14/2022 10:26 AM EDTAssociated Order(s): IP CONSULT TO INFECTIOUS DISEASES CONSULT NOTE Patient Name: Mikayla Pappas Admit Date: [id number] MR #: [id number] : 1960 Physicians: Greyson Dominguez MD (Family); Jet Calvillo DPM (Referring) Chief Complaint/Reason for Visit: Left foot osteomyelitis History of Present Illness: Mikayla Pappas is a 61 y.o. male with history of diabetes, peripheral vascular disease, history stroke, sleep apnea, hypertension, hyperlipidemia, urinary retention whopresents with left foot wound with imaging suggestive of fifth metatarsal osteomyelitis and possible calcaneal osteomyelitis. He has undergone partial fifth ray resection and heel debridement. Cultures are pending. Preliminary surface culture MRSA and surgical culture coag negative staph and he is currently on vancomycin/Flagyl/Ancef. As I encounter him he is in no acute distress. 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 f/u Past Surgical History: Procedure Laterality Date AMPUTATION FOOT Left 08/05/2020 Procedure: POSSIBLE AMPUTATION; Surgeon: Jet Calvillo DPM; Location: [facility] OR; Service: Podiatry AMPUTATION TOE(S) Right 08/03/2016 Procedure: RIGHT 3RD DIGIT AMPUTATION ; Surgeon: Jet Calvillo DPM; Location: [facility] OR; Service: CARDIAC CATHETERIZATION ablation for WPW CATHETER INSERTION SUPRAPUBIC N/A 08/16/2020 Procedure: CATHETER PLACEMENT OVER GUIDE; Surgeon: Paul Kim MD; Location: [facility] OR; Service: Urology CYSTO DIRECT VISION INTERNAL URETHROTOMY N/A 08/16/2020 Procedure: CYSTOSCOPY URETERAL DILATION POSSIBLE DIRECT VISION INTERNAL URETHROTOMY; Surgeon: Paul Kim MD; Location: [facility] OR; Service: Urology FOOT SURGERY Right 2nd toe partial amputation INCISION AND DRAINAGE FOOT AND ANKLE Left 07/29/2020 Procedure: LEFT FOOT ULCER INCISION AND DRAINAGE LEFT FOOT BONE DEBRIDEMENT W/ BIOPSY; Surgeon: Jet Calvillo DPM; Location: [facility] OR; Service: Podiatry INCISION AND DRAINAGE FOOT AND ANKLE Left 08/05/2020 Procedure: LEFT FOOT ULCER DEBRIDEMENT; Surgeon: Jet Calvillo DPM; Location: [facility] OR; Service: Podiatry Family History: No TB Social History Tobacco Use Smoking status: Never Smoker Smokeless tobacco: Never Used Vaping Use Vaping Use: Never used Substance Use Topics Alcohol use: No Drug use: No Allergy Information: I have reviewed the patient's allergies. Dilantin infatabs [phenytoin] Home Medications: Outpatient Medications as of 01/14/2022 Medication Sig cyanocobalamin (B-12) 500 MCG tablet Take 1 tablet by mouth daily . glipiZIDE (GLUCOTROL XL) 10 MG 24 hr tablet Take 10 mg by mouth daily . alcohol swabs PadM Check your sugars up to 4 times a day . amLODIPine (NORVASC) 10 MG tablet Take 1 (one) tablet (10 mg total) by mouth daily Start: 08/07/20. ascorbic acid, vitamin C, (VITAMIN C) 500 MG tablet Take 500 mg by mouth daily . ljpldgx-imreqzkjwclrh-tdllmstr (EXCEDRIN MIGRAINE) 250-250-65 mg per tablet Take 1 tablet by mouth every 6 (six) hours as needed for pain. blood sugar diagnostic strips Check your sugars up to 4 times a day . blood-glucose meter Mis Check your sugars up to 4 times a day . doxazosin (CARDURA) 4 MG tablet Take 4 mg by mouth daily . insulin lispro (HumaLOG KwikPen Insulin) 100 unit/mL InPn For blood sugar 141- 180 give 2 units subcutaneoulsy, for 181-220 give 4 units, for 221-260 give 6 units, and for 261-300 give 8 units. . lancets Mis Check your sugars up to 4 times a day . losartan (COZAAR) 25 MG tablet Take 25 mg by mouth daily . pen needle, diabetic 32 gauge x Ndle Change pen needles daily as needed up to 4 times. . rosuvastatin (Crestor) 40 MG tablet Take 1 (one) tablet (40 mg total) by mouth every evening . sitagliptan-metFORMIN (JANUMET) 50-1,000 mg per tablet Take 1 tablet by mouth daily . Hospital Medications: Current Facility-Administered Medications Medication Dose Route Frequency Provider Last Rate Last Admin acetaminophen (TYLENOL) tablet 650 mg 650 mg Oral Q4H PRN Franca Earl CNP 650 mg at 01/13/22 0035 aluminum-magnesium hydroxide-simethicone (MAALOX PLUS) 200-200-20 mg/5 mL suspension 30 mL 30 mL Oral Q4H PRN Franca Earl CNP aspirin EC tablet 81 mg 81 mg Oral Daily Franca Earl CNP 81 mg at 01/14/22 0843 atorvastatin (LIPITOR) tablet 80 mg 80 mg Oral Nightly Franca Earl CNP 80 mg at 01/13/22 2154 ceFAZolin (ANCEF) IVPB 2 g (premix) 2,000 mg Intravenous Q8H Franca Earl CNP 100 mL/hr at 01/14/22 0526 2,000 mg at 01/14/22 0526 DULoxetine (CYMBALTA) DR capsule 90 mg 90 mg Oral at bedtime Franca Earl CNP 90 mg at 01/13/22 2100 enoxaparin (LOVENOX) syringe 40 mg 40 mg Subcutaneous Daily Cedric Tan DPM 40 mg at 01/14/22 0842 ferrous sulfate tablet 325 mg 325 mg Oral Daily with breakfast Adalberto Hernandez DO 325 mg at 01/14/22 0843 gabapentin (NEURONTIN) capsule 100 mg 100 mg Oral Nightly Franca Earl CNP 100 mg at 01/13/222153 hydrOXYzine (ATARAX) tablet 25 mg 25 mg Oral TID PRN Adalberto Hernandez DO insulin glargine (LANTUS) injection 22 Units 22 Units Subcutaneous Nightly Franca Earl CNP 22Units at 01/13/222153 insulin lispro (AdmeLOG,HumaLOG) injection 0-15 Units 0-15 Units Subcutaneous at bedtime Franca Cormier CNP 2 Units at 01/12/22 2100 insulin lispro (AdmeLOG,HumaLOG) injection 0-30 Units 0-30 Units Subcutaneous TID AC Franca Earl CNP 2 Units at 01/14/22 0842 melatonin Tab 5 mg 5 mg Oral Nightly Adalberto Malgorzata Hernandez DO 5 mg at 01/13/222153 metroNIDAZOLE (FLAGYL) tablet 500 mg 500 mg Oral TID with meals Adalbertoherberth Hernandez DO 500 mgat 01/14/22 0843 naloxone (NARCAN) injection 0.1 mg 0.1 mg Intravenous PRN Cedric Tan DPM And naloxone (NARCAN) injection 0.4 mg 0.4 mg Intravenous PRN Cedric Tan DPM naloxone (NARCAN) injection 0.1 mg 0.1 mg Intravenous PRN Cedric Tan DPM And naloxone (NARCAN) injection 0.4 mg 0.4 mg Intravenous PRN Cedric Tan DPM ondansetron (ZOFRAN-ODT) disintegrating tablet 4 mg 4 mg Oral Q6H PRN Franca Earl CNP 4 mg at01/14/22 0741 Or ondansetron (ZOFRAN) injection 4 mg 4 mg Intravenous Q6H PRN Franca Earl CNP oxyCODONE (ROXICODONE) immediate release tablet 5-10 mg 5-10 mg Oral Q4H PRN HAYDEN WarnerM 10mg at 01/13/22 0657 senna (SENOKOT) tablet 8.6 mg 1 tablet Oral BID PRN Franca Earl CNP 8.6 mg at 01/11/22 0823 senna-docusate (SENNA-S) 8.6-50 mg per tablet 1 tablet 1 tablet Oral BID Franca Earl CNP 1 tablet at 01/14/22 0843 sodium chloride (PF) (NS) flush 5 mL 5 mL Intravenous PRN Franca Earl CNP And sodium chloride (PF) (NS) flush 5 mL 5 mL Intravenous Q8H KAM Franca Earl CNP 5 mL at 01/14/22 0600 And sodium chloride 0.9% (NS) 0-150 mL/hr Intravenous PRN Franca Earl CNP Stopped at 01/12/22 0813 tolterodine (DETROL LA) 24 hr capsule 2 mg 2 mg Oral Daily Franca Earl CNP 2 mg at 01/14/22 0842 vancomycin (VANCOCIN) 1250 mg in sterile water 250 mL IVPB (Xellia) 1,250 mg Intravenous Q24H Adalberto Hernandez, DO 250 mL/hr at 01/14/22 0000 1,250 mg at 01/14/22 0000 Review of Systems: The following system(s) were reviewed and pertinent findings noted: Constitutional, Eyes, ENT, CV, Resp, GI, Neuro, Skin, Musc, , Heme/Lym Physical Examination: Vital Signs: BP 139/80 Pulse 77 Temp 98.1 F (36.7 C) (Oral) Resp 16 Ht 5' 8 Wt 81.6 kg (180 lb) SpO2 97% BMI 27.37 kg/m General: No acute distress Head: Normocephalic, without obvious abnormality, atraumatic Eyes: Conjunctiva/corneas clear Throat: Lips, mucosa without lesions Neck: Supple, symmetrical, trachea midline, no adenopathy; Lungs: Clear to auscultation bilaterally, respirations unlabored,normal respiratory effort Cardiovascular: Regular rate and rhythm, S1 and S2 normal, no murmur, rub or gallop; no edema Abdomen: Soft, non-tender, bowel sounds active,no masses, no organomegaly Skin: Turgor normal, no rashes or lesions or nodules Extremities: No cyanosis,clubbing Musculoskeletal: No joint edema Neurologic: Has had some right-sided weakness Psych: Mood and affect appropriate Laboratory and Additional Data Reviewed: Lab Results Component Value Date WBC 9.36 01/14/2022 HGB 7.3 (L) 01/14/2022 HCT 22.8 (L) 01/14/2022 MCV 91.9 01/14/2022 PLT 304 01/14/2022 Lab Results Component Value Date GLUCOSE 190 (H) 01/14/2022 CALCIUM 8.6 01/14/2022 NA 138 01/14/2022 K 5.2 (H) 01/14/2022 CL 104 01/14/2022 BUN 40 (H) 01/14/2022 CREATININE 1.26 01/14/2022 Cultures: MRSA/coag negative staph Radiology: Ultrasound duplex carotid Final Result XR Chest 1 View Final Result Low lung volume portable chest radiograph with grossly clear lungs. Workstation ID: [id number] MR Foot Left Without Contrast Final Result 1. Acute osteomyelitis in the plantar calcaneus adjacent to the ulcer. 2. Acute osteomyelitis in the 5th metatarsal head and neck and proximal 5th phalanx adjacent to theulcer. 3. No soft tissue abscess. 4. Nonspecific increased signal in the distal phalanx of the 1st, 2nd and 3rd digits. This could bedue to artifact. This finding can also be seen with Raynaud's phenomenon or frostbite injury. 5. Intramuscular edema and atrophy in the plantar foot musculature compatible with neuropathy. [employer] Workstation ID: [id number] MR Heel Left Without Contrast Final Result 1. Acute osteomyelitis in the plantar calcaneus adjacent to the ulcer. 2. Acute osteomyelitis in the 5th metatarsal head and neck and proximal 5th phalanx adjacent to theulcer. 3. No soft tissue abscess. 4. Nonspecific increased signal in the distal phalanx of the 1st, 2nd and 3rd digits. This could bedue to artifact. This finding can also be seen with Raynaud's phenomenon or frostbite injury. 5. Intramuscular edema and atrophy in the plantar foot musculature compatible with neuropathy. [employer] Workstation ID: [id number] Ultrasound duplex arterial legs bilat Final Result US Doppler ankle/brachial index Final Result XR Foot Left 3+ Views (Standard) Final Result 1. Suspected shallow soft tissue ulceration of the heel with forefoot soft tissue swelling. No radiographic evidence of osteomyelitis of the calcaneus. 2. Chronic appearing erosion along the lateral aspect of the 2nd metatarsal head new from 07/26/2020. If there is a nearby soft tissue ulceration osteomyelitis is not excluded. Alternatively, this raises the possibility of gout or less likely an inflammatory arthritis. Workstation ID: [id number] Assessment and Plan: #1 Left foot osteomyelitis-status partial fifth ray resection, concern about calcaneal involvement and has had debridement, culture pending and will need to decide antibiotic therapy for this. Hopefully metatarsal resection will be curative at that site 2. Diabetes-monitor control glucose 3. Anemia-chronic, as per primary 4. Urinary retention-has Todd catheter 5. History CVA-physical therapy 6. Sleep apnea-CPAP as needed Disposition Comments: Await data to determine optimal discharge antibiotic regimen Rakesh Muñoz MD; pager [phone] * CLAY Marcial - 01/13/2022 8:43 AM ESTAssociated Order(s): IP CONSULT TO CARE MANAGEMENT; IP CONSULT TO CARE MANAGEMENT Care Management Progress Note Patient Name: Mikayla Pappas Reason for Consult: Wound Vac Placement. 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 Barriers to Discharge/Plan for Follow Up: Patient to return to [facility]. Confirm that this facility can order wound vac prior to patient discharge. * John Sousa OT - 01/11/2022 10:27 AM EST Occupational Therapy OCCUPATIONAL THERAPY EVALUATION AND TREATMENT NOTE OCCUPATIONAL THERAPY EVALUATION Skilled Therapy Needs After Discharge Anticipate Resolution of Current Assessment Limitations Including: Mechanical Barriers, Social Support Are Skilled Therapy Services Needed After Discharge: Yes Intensity of Skilled Therapy: Up to 5 days per week Anticipated Duration of Skilled Therapy: Duration 10 - 30 days DME Recommendation: (continue to assess) Rehab Potential: Good, For goals Outcomes Measures Prior Function Daily Activity Raw Score: 24 Prior Function Daily Activity % Impaired: 0% AM-PAC Daily Activity Raw Score: 16 AM-PAC Daily Activity % Impaired: 53.32% Occupational Therapy Assessment The patient's current functional participation deficits are functional mobility, LE dressing, UE dressing, bathing, toileting. This reduced independence will limit their life roles of premorbid levelindividual, family member. The patient's co morbidities do significantly affect patient performancein the above activities and roles. The performance deficits are a result of musculoskeletal impairment(s) in generalized debility, global systems, lower extremity, bilateral including strength, acitvity tolerance, pain, safety, insight, problem solving, and knowledge deficit. The patient's limitations of family / caregiver support is a barrier for return to prior level of function. The patient's awareness of own capacity and performance is a barrier to return to prior level of function. During the assessment, significant modification of task was required and multiple treatment optionswere identified in the plan of care. This consultation required extensive review of the medical and therapy history. Activity Tolerance Activity Tolerance: Tolerates 20 - 30 min activity with multiple rests Therapy Precautions Orthotic Devices: Yes Lower Extremity: Cast / Postop Shoe Weight Bearing Status: X RLE: (Hx of BKA) LLE: Non Wt bearing Cognition Overall Cognitive Status: Within Functional Limits (grossly wfl) Arousal/Alertness: Delayed responses to stimuli Orientation Level: Oriented X4 Executive functioning: Insight, Planning / Organizing, Min impairment Safety Judgment: Decreased awareness of need for assistance, Decreased awareness of need for safety Problem Solving: Assistance required to identify errors made, Assistance required to generate solutions, Assistance required to implement solutions Attention: Attends to quiet environment Hearing Status: WFL Social Interaction: Cooperative, Appropriate Comments: pt able to follow 100% of 1-2 step commands ADL Grooming: Supervision, Set-up LE Dressing: Maximal assist Bed Mobility Supine to Sit: Supervision, Stand by assist Sit to Supine: Supervision, Stand by assist Pinball Machine Repairer: bedrails, bed positioning mechanics Functional Transfers Lateral Transfers: Contact guard assist (EOB transfer to drop arm BSC) Toilet Transfers: Contact guard assist, to/from drop arm commode Home Living Obtained Home Living and PLOF info from: Patient Lives With: Alone Type of Home: group home care facility Mobility Equipment: Wheelchair - manual Additional Objective Details - Home Living: Patient in LTC secondary to amputation and uncontrolleddiabetes. Patient independent with stand pivot transfers prior to ulcer worsening. Patient had beenperforming lateral transfers in LTC without slideboard prior to NWB precautions. Prior Level of Function Receives Help From: Facility staff Level of [place] - Transfers/Ambulation/Mobility: Independent with functional transfers, Independent at wheelchair level in home, Independent at wheelchair level in community Level of [place] - ADLs: Independent Level of [place] - Homemaking: Needs assistance Driving: Patient does not drive OCCUPATIONAL THERAPY TREATMENT NOTE Total Treatment Time (Total Session Time): 48 Minutes Timed Code Treatment Minutes: 23 Minutes Cognitive Skills Development Skilled Intervention Provided: multi-modal cues, environmental setup/modification, task breakdown/simplification, patient education For: improving new learning, compensatory techniques, preparing for self-care tasks Resulting In: improved activity tolerance, increased safety awareness, improved problem solving Self-Care / ADL Grooming - Skilled Intervention Provided: verbal cues, environmental setup/modification, monitored patient's safety and tolerance Grooming - For: UE management, efficient movement, task simplification/modification Grooming - Resulting In: improved overall self care, improved participation in ADL task, improved functional independence, improved activity tolerance, increased upright tolerance for functional tasks LE Dressing - Skilled Intervention Provided: verbal cues, environmental setup/modification, facilitation, monitored patient's safety & tolerance LE Dressing - For: LE management, UE management, efficient movement, task simplification/modification, sequencing of movement, compensatory strategies LE Dressing - Resulting In: improved overall self care, improved participation in ADL task, improved safety, improved activity tolerance, increased upright tolerance for functional tasks Home Management / IADL Therapeutic Activities Bed Mobility Skilled Intervention Provided: verbal cues, environmental setup/modification, monitoring patient response with activity, monitoring patient response with positional changes For: LE management, UE management, efficient movement, safety during functional task(s), safe use of bedrails and/or equipment, sequencing of movement Resulting In: improved safety, improved functional independence, improved activity tolerance, increased upright tolerance for functional tasks, increased participation in mobility task(s) Functional Transfers Skilled Intervention Provided: verbal cues, environmental setup/modification, monitoring patient response with positional changes, monitoring patient response with activity, patient education For: UE management, LE management, increased participation in mobility task, sequencing of movement, safety during functional task(s) Resulting In: improved safety, increased initiation/participation in mobility task(s), improved functional independence, improved activity tolerance, increased upright tolerance for functional task(s) Neuromuscular Reeducation Sitting Balance - Static: Independent Sitting Balance - Dynamic: Supervision, Stand by assist Additional Treatment Details Educated pt on general safety awareness and LLE NWB precs, Min cues throughout session for maintaining precs Past Medical History: Diagnosis Date Diabetes mellitus, type 2 (HCC) no AC at home, on insulin for 3 years Diabetic neuropathy (HCC) GERD (gastroesophageal reflux disease) no current meds History of cardiac cath 1990 for RFA due to WPW History of depression no current meds Hyperlipidemia Hypertension Obesity Open wound right 3rd toe Seizures (HCC) questionable when a child, no recurrence Sleep apnea, obstructive partial compliance with CPAP 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 in 1990, no current bobbin presser f/u Past Surgical History: Procedure Laterality Date AMPUTATION FOOT Left 08/05/2020 Procedure: POSSIBLE AMPUTATION; Surgeon: Jet Calvillo DPM; Location: [facility]; Service: Podiatry AMPUTATION TOE(S) Right 08/03/2016 Procedure: RIGHT 3RD DIGIT AMPUTATION ; Surgeon: Jet Calvillo DPM; Location: [facility] OR; Service: CARDIAC CATHETERIZATION ablation for WPW CATHETER INSERTION SUPRAPUBIC N/A 08/16/2020 Procedure: CATHETER PLACEMENT OVER GUIDE; Surgeon: Paul Kim MD; Location: [facility] OR; Service: Urology CYSTO DIRECT VISION INTERNAL URETHROTOMY N/A 08/16/2020 Procedure: CYSTOSCOPY URETERAL DILATION POSSIBLE DIRECT VISION INTERNAL URETHROTOMY; Surgeon: Paul Kim MD; Location: [facility] OR; Service: Urology FOOT SURGERY Right 2nd toe partial amputation INCISION AND DRAINAGE FOOT AND ANKLE Left 07/29/2020 Procedure: LEFT FOOT ULCER INCISION AND DRAINAGE LEFT FOOT BONE DEBRIDEMENT W/ BIOPSY; Surgeon: Jet Calvillo DPM; Location: [facility] OR; Service: Podiatry INCISION AND DRAINAGE FOOT AND ANKLE Left 08/05/2020 Procedure: LEFT FOOT ULCER DEBRIDEMENT; Surgeon: Jet Calvillo DPM; Location: [facility] OR; Service: Podiatry For complete objective data, detailed plan of care and patient education refer to: OT Evaluation flowsheet, OT Evaluation and Treatment flowsheet, OT Treatment flowsheet, patient Plan of Care, Plan of Care progress note, and Patient Education. This note stands as the current Discharge Summary upon patient discharge from the hospital or completion of Occupational Therapy Plan of Care. * Jojo Waterman - 01/10/2022 4:32 PM EST Physical Therapy PHYSICAL THERAPY EVALUATION and TREATMENT NOTE PHYSICAL THERAPY EVALUATION Skilled Therapy Needs After Discharge Anticipate Resolution of Current Assessment Limitations Including: Mechanical Barriers Are Skilled Therapy Services Needed After Discharge: Yes Intensity of Skilled Therapy: Up to 5 days per week Anticipated Duration of Skilled Therapy: Duration 10 - 30 days DME Recommendation: Slide board DME Rationale: Patient's condition creates an increased risk of safety hazard without recommended equipment Rehab Potential: Good Outcomes Measures Prior Function - Basic Mobility Raw Score: 18 Points Prior Function - Basic Mobility % Impaired: 40.47% AM-PAC Basic Mobility Raw Score: 12 Points AM-PAC Basic Mobility % Impaired: 61.94% Physical Therapy Assessment History: The following factors influence the patient's participation in the PT plan of care: Personal Factors: Body Habitus The following co-morbidities (from this admission or prior) influence the patient's participation in this plan of care: See PMH; pt admitted for diabetic heel ulcer Number of History elements affecting this patient's PT plan of care: 1 to 2 Examination of Body Systems: The patient presents with: Musculoskeletal impairments: Strength Neurologic Impairments: Sensation Vascular Impairments: Amputation, Foot / Leg ulcer Integumentary Impairments: Active Wound. These impairments result in limitations of Functional Transfers, Safety Awareness, Safety, ActivityTolerance. These impairments result in restrictions of Household mobility, Community mobility. Number of Body Systems elements affecting this patient's PT plan of care: 3 or more. Clinical Presentation: The patient's clinical presentation for this PT evaluation is evolving with changing characteristics as evidenced by current PT documentation. Activity Tolerance Activity Tolerance: Tolerates 20 - 30 min activity with multiple rests Therapy Precautions Orthotic Devices: Yes Lower Extremity: Cast / Postop Shoe, Left Weight Bearing Status: X LLE: Non Wt bearing General Rehab Precautions: Fall risk Balance Assessment Sitting Balance - Static: Supervision Sitting Balance - Dynamic: Stand by assist Bed Mobility Rolling: Supervision, Head of bed elevated Supine to Sit: Stand by assist, Head of bed elevated Sit to Supine: Stand by assist, Head of bed flat Pinball Machine Repairer: bedrails Transfers Lateral Transfers: Contact guard assist (Lateral transfer from bed in raised position into W/C) Pinball Machine Repairer: BUE, wheelchair Additional Transfer Trial 2: Yes Lateral Transfers Trial 2: Minimal assist (Lateral transfer from W/C to bed) Pinball Machine Repairer Trial 2: BUE, wheelchair Gait/Locomotion Wheelchair Mobility: Independent Wheelchair distance: 300 Feet Wheelchair Environment/Terrain: open/community environment, multiple distractions Home Living Obtained Home Living and PLOF info from: Patient Lives With: Alone Type of Home: group home care facility Mobility Equipment: Wheelchair - manual Additional Objective Details - Home Living: Patient in LTC secondary to amputation and uncontrolleddiabetes. Patient independent with stand pivot transfers prior to ulcer worsening. Patient had beenperforming lateral transfers in LTC without slideboard prior to NWB precautions. Prior Level of Function Receives Help From: Facility staff Level of [place] - Transfers/Ambulation/Mobility: Independent with functional transfers, Independent at wheelchair level in home Level of [place] - ADLs: Independent Level of [place] - Homemaking: Independent PHYSICAL THERAPY TREATMENT NOTE Total Treatment Time (Total Session Time): 28 Minutes Timed Code Treatment Minutes: 8 Minutes Neuromuscular Reeducation Sitting Balance Treatment: weight shifting right, weight shifting left Skilled Intervention Provided: verbal cues, tactile cues, facilitation For: UE positioning, efficient movement, sequencing of movement, weight bearing through affected LE, weight shifting Resulting in: improved initiation, improved activity tolerance Therapeutic Activities Bed Mobility Skilled Intervention Provided: verbal cues, facilitation Transfers Skilled Intervention Provided: verbal cues, tactile cues, facilitation, provided step by step instructions For: LE management, UE positioning, efficient movement, necessary precautions, safe use of AD and/or equipment, sequencing of movement Resulting in: improved activity tolerance, improved performance Additional Treatment Details Patient drowsy and with conctant verbal cues in order to maintain conciousness at the beginning of the session. However, after initiating functional movement, pt able to maintain awareness without the need for ceing. Patient with difficulties maintianing NWB on LLE during functional transfers secondary to limited UE strength. Pt to trial lateral transfer with slideboard next session. Past Medical History: Diagnosis Date Diabetes mellitus, type 2 (HCC) no AC at home, on insulin for 3 years Diabetic neuropathy (HCC) GERD (gastroesophageal reflux disease) no current meds History of cardiac cath 1991 for RFA due to WPW History of depression no current meds Hyperlipidemia Hypertension Obesity Open wound right 3rd toe Seizures (HCC) questionable when a child, no recurrence Sleep apnea, obstructive partial compliance with CPAP WPW (Shcmn-Tumpgmefo-Gecui syndrome) 1990 s/p RFA in 1990, no current bobbin presser f/u Past Surgical History: Procedure Laterality Date AMPUTATION FOOT Left 08/05/2020 Procedure: POSSIBLE AMPUTATION; Surgeon: Jet Calvillo DPM; Location: [facility] OR; Service: Podiatry AMPUTATION TOE(S) Right 08/03/2016 Procedure: RIGHT 3RD DIGIT AMPUTATION ; Surgeon: Jet Calvillo DPM; Location: [facility] OR; Service: CARDIAC CATHETERIZATION ablation for WPW CATHETER INSERTION SUPRAPUBIC N/A 08/16/2020 Procedure: CATHETER PLACEMENT OVER GUIDE; Surgeon: Paul Kim MD; Location: [facility] OR; Service: Urology CYSTO DIRECT VISION INTERNAL URETHROTOMY N/A 08/16/2020 Procedure: CYSTOSCOPY URETERAL DILATION POSSIBLE DIRECT VISION INTERNAL URETHROTOMY; Surgeon: Paul Kim MD; Location: [facility] OR; Service: Urology FOOT SURGERY Right 2nd toe partial amputation INCISION AND DRAINAGE FOOT AND ANKLE Left 07/29/2020 Procedure: LEFT FOOT ULCER INCISION AND DRAINAGE LEFT FOOT BONE DEBRIDEMENT W/ BIOPSY; Surgeon: Jet Calvillo DPM; Location: [facility] OR; Service: Podiatry INCISION AND DRAINAGE FOOT AND ANKLE Left 08/05/2020 Procedure: LEFT FOOT ULCER DEBRIDEMENT; Surgeon: Jet Calvillo DPM; Location: [facility] OR; Service: Podiatry For complete objective data, detailed plan of care and patient education refer to: PT Evaluation flowsheet, PT Evaluation and Treatment flowsheet, PT Treatment flowsheet, patient Plan of Care, Plan of Care progress note, and Patient Education. This note stands as the current Discharge Summary upon patient discharge from the hospital or completion of Physical Therapy Plan. * Nicolle Harden RN - 01/10/2022 2:59 PM ESTAssociated Order(s): IP CONSULT TO ENTEROSTOMAL THERAPY; IP CONSULT TO ENTEROSTOMAL THERAPY Discussed with patient's RN that podiatry is following the left foot, therefore, wound care will sign off at this time. Orders per podiatry on the chart. Please consult wound care for any future needs. * Christine Cunningham PA-C - 01/10/2022 11:15 AM ESTAssociated Order(s): IP CONSULT TO VASCULAR SURGERY Images from the original note were not included. [facility] Vascular Surgery Consultation Note Chief Complaint / Reason for Consultation PVD History of Present Illness Patient is a 61 y.o. male with PMHx PVD, Diabetes type II, CVA, depression, LORENA, R BKA, anemia, HTN, HLD, urinary retention presents with left DFU to left sub 5th MT head and dry eschar to heel. Podiatry planing operative management. He states this wound present x few month. He also had R BKA 05/2021. States that he was using a prosthetic and ambulating until the wound re opened; has been in wheelchair since that time. Patient with no h/o [place]. Did have CVA 2020. No prior vascular intervention Patient is a non smoker Patient on ASA and statin Vascular studies in 2019 with no areas of stenosis; now with L AT stenosis. DP pulse palpable Review of Systems Denies fevers, chills, chest pain, shortness of breath, nausea, vomiting, wt changes, vision problems, blindness, hearing problems, facial droop, slurred speech, extremity weakness, extremity numbness, dysuria, or rashes. All other systems are reviewed and are negative No residual deficits from CVA Past Medical History: Diagnosis Date Diabetes mellitus, type 2 (HCC) no AC at home, on insulin for 3 years Diabetic neuropathy (HCC) GERD (gastroesophageal reflux disease) no current meds History of cardiac cath 1990 for RFA due to WPW History of depression no current meds Hyperlipidemia Hypertension Obesity Open wound right 3rd toe Seizures (HCC) questionable when a child, no recurrence Sleep apnea, obstructive partial compliance with CPAP WPW (Zuzts-Tnxqcoxno-Mqkig syndrome) 1990 s/p RFA in 1990, no current bobbin presser f/u Past Surgical History: Procedure Laterality Date AMPUTATION FOOT Left 08/05/2020 Procedure: POSSIBLE AMPUTATION; Surgeon: Jet Calvillo DPM; Location: [facility] OR; Service: Podiatry AMPUTATION TOE(S) Right 08/03/2016 Procedure: RIGHT 3RD DIGIT AMPUTATION ; Surgeon: Jet Calvillo DPM; Location: [facility] OR; Service: CARDIAC CATHETERIZATION ablation for WPW CATHETER INSERTION SUPRAPUBIC N/A 08/16/2020 Procedure: CATHETER PLACEMENT OVER GUIDE; Surgeon: Paul Kim MD; Location: [facility] OR; Service: Urology CYSTO DIRECT VISION INTERNAL URETHROTOMY N/A 08/16/2020 Procedure: CYSTOSCOPY URETERAL DILATION POSSIBLE DIRECT VISION INTERNAL URETHROTOMY; Surgeon: Paul Kim MD; [place] [facility] [place] [facility] [place]; Service: Urology FOOT SURGERY Right 2nd toe partial amputation INCISION AND DRAINAGE FOOT AND ANKLE Left 07/29/2020 Procedure: LEFT FOOT ULCER INCISION AND DRAINAGE LEFT FOOT BONE DEBRIDEMENT W/ BIOPSY; Surgeon: Jet Calvillo DPM; Location: [facility] OR; Service: Podiatry INCISION AND DRAINAGE FOOT AND ANKLE Left 08/05/2020 Procedure: LEFT FOOT ULCER DEBRIDEMENT; Surgeon: Jet Calvillo DPM; Location: [facility] OR; Service: Podiatry Home Medication Instructions Prior to Surgery TAKE these medications Take last dose on Take the morning of surgery Comment(s) acetaminophen 325 MG tablet Take 650 mg by mouth every 6 (six) hours as needed for pain . Commonly known as: TYLENOL alcohol swabs Padm Check your sugars up to 4 times a day . amLODIPine 10 MG tablet Take 1 (one) tablet (10 mg total) by mouth daily Start: 08/07/20. Commonly known as: NORVASC ascorbic acid (vitamin C) 500 MG tablet Take 500 mg by mouth daily . Commonly known as: VITAMIN C aspirin 81 MG EC tablet Take 81 mg by mouth daily . rvruzpk-zibwdereskbxm-zngcgruy 250-250-65 mg per tablet Take 1 tablet by mouth every 6 (six) hours as needed for pain. Commonly known as: EXCEDRIN MIGRAINE atorvastatin 80 MG tablet Take 80 mg by mouth daily . Commonly known as: LIPITOR * Lantus Solostar U-100 Insulin 100 unit/mL (3 mL) Inpn Generic drug: insulin glargine Inject 22 Units under the skin nightly . * Basaglar KwikPen U-100 Insulin 100 unit/mL (3 mL) Inpn Generic drug: insulin glargine Inject 20 (twenty) Units under the skin nightly . bisacodyL 10 mg/30 mL Enem Insert 10 mg into the rectum once as needed . Commonly known as: FLEET blood sugar diagnostic strips Check your sugars up to 4 times a day . blood-glucose meter Misc Check your sugars up to 4 times a day . collagenase ointment Apply 1 application topically at bedtime Left foot . Commonly known as: SANTYL cyanocobalamin 500 MCG tablet Take 1 tablet by mouth daily . Commonly known as: B-12 diclofenac sodium 1 % Gel Apply topically 4 (four) times a day . docusate sodium 100 MG capsule Take 100 mg by mouth 2 (two) times a day . Commonly known as: COLACE doxazosin 4 MG tablet Take 4 mg by mouth daily . Commonly known as: CARDURA * DULoxetine 30 mg Cdrs Take 30 mg by mouth at bedtime Along with 60 mg to make 90mg at bedtime . * DULoxetine 60 MG capsule Take 60 mg by mouth at bedtime Along with 30 mg to make 90mg at bedtime . Commonly known as: CYMBALTA ergocalciferol 1,250 mcg (50,000 unit) capsule Take 50,000 Units by mouth once a week . Commonly known as: ERGOCALCIFEROL furosemide 20 MG tablet Take 20 mg by mouth 2 (two) times a day . Commonly known as: LASIX * gabapentin 300 MG capsule Take 300 mg by mouth at bedtime . Commonly known as: NEURONTIN * gabapentin 100 MG capsule Take 100 mg by mouth daily . Commonly known as: NEURONTIN * gabapentin 300 MG capsule Take 1 (one) capsule (300 mg total) by mouth nightly (Days supply per fill: 30) . Commonly known as: NEURONTIN glipiZIDE 10 MG 24 hr tablet Take 10 mg by mouth daily . Commonly known as: GLUCOTROL XL guaiFENesin 600 mg 12 hr tablet Take 600 mg by mouth 2 (two) times a day as needed for congestion . Commonly known as: MUCINEX HYDROcodone-acetaminophen 5-325 mg per tablet Take 1 tablet by mouth every 6 (six) hours as needed for pain . Commonly known as: NORCO hydrocortisone 1 % cream Apply topically 2 (two) times a day . insulin lispro 100 unit/mL Inpn For blood sugar 141-180 give 2 units subcutaneoulsy, for 181-220 give 4 units, for 221-260 give 6 units, and for 261-300 give 8 units. . Commonly known as: HumaLOG KwikPen Insulin lancets [facility] Check your sugars up to 4 times a day . lidocaine 5 % patch Place 1 patch on the skin every 12 (twelve) hours Remove & Discard patch within 12 hours or as directed by MD- to back . Commonly known as: LIDODERM loperamide 2 mg tablet Take 2 mg by mouth 4 (four) times a day as needed for diarrhea Max 4 tablets in 24 hours . Commonly known as: IMODIUM A-D losartan 25 MG tablet Take 25 mg by mouth daily . Commonly known as: COZAAR magnesium hydroxide 400 mg/5 mL Susp Take 30 mL by mouth daily as needed . Commonly known as: MOM melatonin 5 mg Tab Take 5 mg by mouth at bedtime . ondansetron 4 MG disintegrating tablet Dissolve 4 mg on top of tongue every 6 (six) hours as needed for nausea . Commonly known as: ZOFRAN-ODT oxybutynin 10 MG 24 hr tablet Take 10 mg by mouth daily . Commonly known as: DITROPAN-XL pen needle, diabetic 32 gauge x /32 Ndle Change pen needles daily as needed up to 4 times. . polyethylene glycol 17 gram powder Take 17 g by mouth daily . Commonly known as: MIRALAX rosuvastatin 40 MG tablet Take 1 (one) tablet (40 mg total) by mouth every evening . Commonly known as: Crestor sitagliptan-metFORMIN 50-1,000 mg per tablet Take 1 tablet by mouth daily . Commonly known as: JANUMET sitagliptin 50 MG tablet Take 50 mg by mouth daily . Commonly known as: JANUVIA tiZANidine 2 MG tablet Take 2 mg by mouth 2 (two) times a day . Commonly known as: ZANAFLEX * This list has 7 medication(s) that are the same as other medications prescribed for you. Read thedirections carefully, and ask your doctor or other care provider to review them with you. Allergies Allergen Reactions Dilantin Infatabs [Phenytoin] Rash Social History Socioeconomic History Marital status: Tobacco Use Smoking status: Never Smoker Smokeless tobacco: Never Used Vaping Use Vaping Use: Never used Substance and Sexual Activity Alcohol use: No Drug use: No Family History Problem Relation Age of Onset Diabetes Father Surgical complications Neg Hx Anesthesia problems Neg Hx Heart disease Neg Hx Clotting disorder Neg Hx Deep vein thrombosis Neg Hx Pulmonary embolism Neg Hx - No family history of bleeding or clotting disorders Vital Signs Vitals: 01/09/22 2305 01/10/22 0044 01/10/22 0425 01/10/22 0827 BP: (!) 156/70 (!) 152/74 134/70 BP Location: Left arm Left arm Right arm Patient Position: Lying Lying Lying Pulse: 84 75 84 Resp: 18 18 18 16 Temp: 98.3 F (36.8 C) 97.9 F (36.6 C) 97.8 F (36.6 C) TempSrc: Oral Oral Oral SpO2: 95% 96% 95% Weight: Height: Physical Examination General: no apparent distress Psychiatric: affect appropriate HEENT: Atraumatic, sclera aninteric. Mucous membranes moist. Neurologic: face symmetric, speech clear, cognition clear, vision and hearing grossly intact. Neck: Supple; L carotid bruit appreciated Chest: clear to auscultation bilaterally Cardiac: Regular rate and rhythm Abdominal: soft, nontender Skin/integumentary: intact, no rashes. Extremities: warm and well perfused - bilateral upper extremity motorsensory intact - bilateral lower extremity motorsensory intact Vascular exam: R BKA healed L DP palpable. L DP, PT, jeannette Multiphasic on doppler L foot wound Labs Lab Results Component Value Date WBC 9.98 01/10/2022 HGB 8.0 (L) 01/10/2022 HCT 25.2 (L) 01/10/2022 MCV 89.0 01/10/2022 PLT 305 01/10/2022 Lab Results Component Value Date NA 140 01/10/2022 K 4.7 01/10/2022 CL 104 01/10/2022 PHOS 3.3 08/16/2020 BUN 40 (H) 01/10/2022 CREATININE 1.19 01/10/2022 CREATININE 1.2 10/17/2020 No results found for: GLU Lab Results Component Value Date CALCIUM 9.3 01/10/2022 PHOS 3.3 08/16/2020 Imaging: . Impression and plan: Pt is a 61 y.o. male with PVD and non healing L foot wound - Labs reviewed: Cr 1.19 (1.3 on admission. Baseline normal), Hgb 8 A1c 6.7 Lipid panel pending - Carotid US pending for L carotid bruit; h/o CVA 2020. States US was never completed Update:1-49% b/l - L AT stenosis; DP however palpable. No stenosis on last imaging 2019 - Continue ASA and statin - No intervention required for PVD. Adequate perfusion. Will f/u 6 wks. Will monitor carotids going forward - Patient to be discussed with Dr. Cosby, final plan per Dr. Harjeet Cunningham PA-C 01/10/22 Associated attestation - Fatmata Cosby MD - 01/10/2022 3:41 PM EST I performed a history and physical examination, reviewed pertinent clinical data, including laboratory studies and imaging studies and discussed with the physician assistant finance director the management of this patient for evaluation of perfusion in the setting of left foot infection I agree with the findings and assessments noted above. Additionally: Patient with history of right below-knee amputation for infection last year Now with left foot infection. He has no history of arterial inventions Exam he has open wounds in the heel and plantar aspect of his left foot. He has easily palpable DP pulse and a multiphasic PT signal His duplex does show potential stenosis in the AT but other than that normal perfusion to the left lower extremity Plan: -I would recommend no intervention from a vascular standpoint. He should have adequate perfusion toheal what ever intervention podiatry needs to do -I did speak to the patient that if he does develop worse infection he may need a below-knee amputation on his side -He can follow-up with me in 6 weeks for check of his wound -We did get a carotid duplex because of his history of stroke and a bruit on his left side that showed no significant carotid stenosis bilaterally The note was dictated using [employer] dictation system. The voice recognition software is inherently subject to errors including those of syntax and sound- alike substitutions which may escape proofreading. In such instances, original meaning may be extrapolated by contextual derivation. Fatmata Cosby MD, [facility] Vascular and Endovascular Surgeon [facility] Pager: [phone] * Jada Lewis RN - 01/10/2022 10:53 AM ESTAssociated Order(s): IP CONSULT TO CARE MANAGEMENT Care Management Consult Assessment Patient Name: Mikayla Pappas Identified Concern/Reason for Consult: Discharge needs, transport return to LTC Assessment: Living Arrangements: Facility Support Systems: Family members, Friends/neighbors Type of Residence: halfway Prior to Admission Home Care Services: No Current Home Equipment: Wheel chair, Wheeled walker, Other (Comment) (prosthetic rt leg) Additional Considerations: Patient preferred discharge location - Home- LTCF [facility] Medication affordability/compliance concerns - No, [employer] Medicaid Community support providers - N/A Linked with a primary care provider to support discharge needs - Yes, Greyson Dominguez MD [phone] Other Needs to Support Discharge - N/A Working Discharge Plan: D/C 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 Per podiatry note possible OR. CM cont to follow forneeds. Pt to return when medically ready, CM to follow to set up transport. * Cedric Tan DPM - 01/09/2022 4:59 PM ESTAssociated Order(s): IP CONSULT TO PODIATRY Images from the original note were not included. FOOT AND ANKLE SURGERY CONSULTATION NOTE ASSESSMENT: Mikayla Pappas 61 y.o. male with PMHx PVD, Diabetes type II, CVA, depression, LORENA, R BKA, anemia, HTN, HLD, urinary retention presents with left DFU to left sub 5th MT head and dry eschar to heel. - Afebrile, hypertensive, otherwise VSS -Labs reviewed: WBC 11.2, HGB 8.4, Cr 1.3 -Inflammatory markers: CRP 28, ESR 74 -XR left foot, 01/09/2022: No radiographic evidence of osteomyelitis to the calcaneus, no obvious gas -MRI left foot, 01/09/2022: pending -NIVS L foot, 01/09/2022: Pending -Swab cx left foot, 01/09/2022: Pending PLAN: -Patient seen and evaluated at bedside in ED -Verbal consent obtained. Utilizing a #15 blade, the wound at the subfifth metatarsal, left and theperiwound area at the plantar calcaneus, left was sharply and excisionally debrided down to subcutaneous tissue level including subcutaneous tissue. No tendons, or bone were removed. The wound was irrigated with copious amounts of normal saline. A swab culture was obtained of the left subfifth metatarsal wound and sent for aerobic, anaerobic, culture and sensitivity. Patient tolerated the debridement well and without complications -Dressing applied: Betadine, DSD, Kerlix secured with tape -NWB to LLE w/ assistive device and postop shoe - Heel boots while in bed, bilateral -Empiric IV abx per primary -Patient will require preoperative risk stratification, [place] [facility]. -No urgent OR planned at this time. Patient presenting with left heel decubitus ulcer and overlyingdry eschar, as well as left subfifth metatarsal wound. No purulence appreciated to either wound. Left subfifth metatarsal wound does probe deeply to periosteum. XR with no definitive OM or gas. -Wound culture obtained of metatarsal wound. Continue IV ABX per primary, tailor to culture as able. Will order MRI for further evaluation. Placed order for NIVS due to nonpalpable pulses. Further plan pending MRI, NIVS, attending discussion. -Patient discussed with Dr. Calvillo and associates, further plan per attending physician CHIEF COMPLAINT: Left foot wounds HISTORY OF PRESENT ILLNESS: Mikayla Pappas 61 y.o. male with PMHx PVD, Diabetes type II, CVA, depression, LORENA, R BKA, anemia, HTN, HLD, urinary retention presents with left DFU to left sub 5th MT head and dry eschar to heel.Patient states that he has been staying at a shelter facility. He reports that his wound care nurse noticed that he was getting a dry eschar to the plantar aspect of his heel. Patient states h e is not been utilizing any heel offloading boot. Patient reports that he does get regular nursing dressing changes but does not know what they utilized. Patient states that he does follow-up with Dr. Calvillo. The last time he saw him was roughly 1 month ago. He reports the doctors performed previous surgeries on his left foot. Patient is unaware if his wounds have increased in drainage, discoloration or malodor. He reports that he does have neuropathy to his left foot. He denies any history of tobacco, alcohol, illicit drug use. Review of Systems Denies fevers, chills, nausea, vomiting, chest pain, shortness of breath. 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 f/u Past Surgical History Past Surgical History: Procedure Laterality Date AMPUTATION FOOT Left 08/05/2020 Procedure: POSSIBLE AMPUTATION; Surgeon: Jet Calvillo DPM; Location: [facility]; Service: Podiatry AMPUTATION TOE(S) Right 08/03/2016 Procedure: RIGHT 3RD DIGIT AMPUTATION ; Surgeon: Jet Calvillo DPM; Location: [facility] OR; Service: CARDIAC CATHETERIZATION ablation for WPW CATHETER INSERTION SUPRAPUBIC N/A 08/16/2020 Procedure: CATHETER PLACEMENT OVER GUIDE; Surgeon: Paul Kim MD; Location: [facility] OR; Service: Urology CYSTO DIRECT VISION INTERNAL URETHROTOMY N/A 08/16/2020 Procedure: CYSTOSCOPY URETERAL DILATION POSSIBLE DIRECT VISION INTERNAL URETHROTOMY; Surgeon: Paul Kim MD; [place] [facility] [place]; Service: Urology FOOT SURGERY Right 2nd toe partial amputation INCISION AND DRAINAGE FOOT AND ANKLE Left 07/29/2020 Procedure: LEFT FOOT ULCER INCISION AND DRAINAGE LEFT FOOT BONE DEBRIDEMENT W/ BIOPSY; Surgeon: Jet Calvillo DPM; Location: [facility] OR; Service: Podiatry INCISION AND DRAINAGE FOOT AND ANKLE Left 08/05/2020 Procedure: LEFT FOOT ULCER DEBRIDEMENT; Surgeon: Jet Calvillo DPM; Location: [facility] OR; Service: Podiatry Medications No current facility-administered medications on file prior to encounter. Current Outpatient Medications on File Prior to Encounter Medication Sig Dispense Refill acetaminophen (TYLENOL) 325 MG tablet Take 650 mg by mouth every 6 (six) hours as needed for pain . aspirin 81 MG EC tablet Take 81 mg by mouth daily . atorvastatin (LIPITOR) 80 MG tablet Take 80 mg by mouth daily . bisacodyL (FLEET) 10 mg/30 mL Enem Insert 10 mg into the rectum once as needed . collagenase (SANTYL) ointment Apply 1 application topically at bedtime Left foot . cyanocobalamin (B-12) 500 MCG tablet Take 1 tablet by mouth daily . diclofenac sodium 1 % Gel Apply topically 4 (four) times a day . docusate sodium (COLACE) 100 MG capsule Take 100 mg by mouth 2 (two) times a day . DULoxetine (CYMBALTA) 60 MG capsule Take 60 mg by mouth at bedtime Along with 30 mg to make 90mg atbedtime . DULoxetine 30 mg CDRS Take 30 mg by mouth at bedtime Along with 60 mg to make 90mg at bedtime . ergocalciferol (ERGOCALCIFEROL) 1,250 mcg (50,000 unit) capsule Take 50,000 Units by mouth once a week . furosemide (LASIX) 20 MG tablet Take 20 mg by mouth 2 (two) times a day . gabapentin (NEURONTIN) 100 MG capsule Take 100 mg by mouth daily . gabapentin (NEURONTIN) 300 MG capsule Take 300 mg by mouth at bedtime . glipiZIDE (GLUCOTROL XL) 10 MG 24 hr tablet Take 10 mg by mouth daily . guaiFENesin (MUCINEX) 600 mg 12 hr tablet Take 600 mg by mouth 2 (two) times a day as needed for congestion . HYDROcodone-acetaminophen (NORCO) 5-325 mg per tablet Take 1 tablet by mouth every 6 (six) hours asneeded for pain . hydrocortisone 1 % cream Apply topically 2 (two) times a day . insulin glargine (Lantus Solostar U-100 Insulin) 100 unit/mL (3 mL) InPn Inject 22 Units under the skin nightly . lidocaine (LIDODERM) 5 % patch Place 1 patch on the skin every 12 (twelve) hours Remove & Discard patch within 12 hours or as directed by MD- to back . loperamide (IMODIUM A-D) 2 mg tablet Take 2 mg by mouth 4 (four) times a day as needed for diarrheaMax 4 tablets in 24 hours . magnesium hydroxide (MOM) 400 mg/5 mL Susp Take 30 mL by mouth daily as needed . melatonin 5 mg Tab Take 5 mg by mouth at bedtime . ondansetron (ZOFRAN-ODT) 4 MG disintegrating tablet Dissolve 4 mg on top of tongue every 6 (six) hours as needed for nausea . oxybutynin (DITROPAN-XL) 10 MG 24 hr tablet Take 10 mg by mouth daily . polyethylene glycol (MIRALAX) 17 gram powder Take 17 g by mouth daily . sitagliptin (JANUVIA) 50 MG tablet Take 50 mg by mouth daily . tiZANidine (ZANAFLEX) 2 MG tablet Take 2 mg by mouth 2 (two) times a day . alcohol swabs PadM Check your sugars up to 4 times a day . 100 each 11 amLODIPine (NORVASC) 10 MG tablet Take 1 (one) tablet (10 mg total) by mouth daily Start: 08/07/20.30 tablet 0 ascorbic acid, vitamin C, (VITAMIN C) 500 MG tablet Take 500 mg by mouth daily . ptczryy-dpvrytlaxbnrg-pjezrwuf (EXCEDRIN MIGRAINE) 250-250-65 mg per tablet Take 1 tablet by mouth every 6 (six) hours as needed for pain. blood sugar diagnostic strips Check your sugars up to 4 times a day . 100 each 11 blood-glucose meter Misc Check your sugars up to 4 times a day . 1 each 0 doxazosin (CARDURA) 4 MG tablet Take 4 mg by mouth daily . gabapentin (NEURONTIN) 300 MG capsule Take 1 (one) capsule (300 mg total) by mouth nightly (Days supply per fill: 30) . 30 capsule 0 insulin glargine (Basaglar KwikPen U-100 Insulin) 100 unit/mL (3 mL) InPn Inject 20 (twenty) Units under the skin nightly . 6 mL 0 insulin lispro (HumaLOG KwikPen Insulin) 100 unit/mL InPn For blood sugar 141- 180 give 2 units subcutaneoulsy, for 181-220 give 4 units, for 221-260 give 6 units, and for 261-300 give 8 units. . 18 mL 0 lancets Misc Check your sugars up to 4 times a day . 100 each 11 losartan (COZAAR) 25 MG tablet Take 25 mg by mouth daily . pen needle, diabetic 32 gauge x /32 Ndle Change pen needles daily as needed up to 4 times. . 100 each 11 rosuvastatin (Crestor) 40 MG tablet Take 1 (one) tablet (40 mg total) by mouth every evening . 30 tablet 0 sitagliptan-metFORMIN (JANUMET) 50-1,000 mg per tablet Take 1 tablet by mouth daily . Allergies Allergies Allergen Reactions Dilantin Infatabs [Phenytoin] Rash Social History Social History Socioeconomic History Marital status: Tobacco Use Smoking status: Never Smoker Smokeless tobacco: Never Used Vaping Use Vaping Use: Never used Substance and Sexual Activity Alcohol use: No Drug use: No Family History Family History Problem Relation Age of Onset Diabetes Father Surgical complications Neg Hx Anesthesia problems Neg Hx Heart disease Neg Hx Clotting disorder Neg Hx Deep vein thrombosis Neg Hx Pulmonary embolism Neg Hx - No history of bleeding or clotting disorders Vital Signs Vitals: 01/09/22 1301 01/09/22 1400 01/09/22 1430 BP: 137/65 138/65 (!) 151/64 Pulse: 76 75 79 Resp: 16 Temp: 97.7 F (36.5 C) SpO2: 100% 96% Weight: 81.6 kg (180 lb) Ins & Outs No intake or output data in the 24 hours ending 01/09/22 1659 PHYSICAL EXAM: General: Patient seen & evaluated at bedside. Patient in no apparent distress, resting comfortably in bed. Physical Exam: BP (!) 151/64 Pulse 79 Temp 97.7 F (36.5 C) Resp 16 Wt 81.6 kg (180 lb) SpO2 96% BMI 27.37 kg/m General appearance: Alert, well appearing, and in no acute distress. HEENT: Head- normocephalic, atraumatic. Eyes - PERRL bilaterally and EOMI. Ears - normal external appearance, hearing intact. Nose - normal, no erythema. Throat- mucous membranes moist, pharynx without lesions. Neck: supple, trachea midline. Cardiovascular: S1,S2 normal. No murmurs, rubs, clicks or gallops appreciated. No pedal edema. Respiratory: Lungs clear to auscultation, no wheezes, rales or rhonchi heard Abdomen: Soft, nontender, normal bowel sounds, nondistended, no masses or organomegaly appreciated. Neurological: Alert, oriented X 3. Grossly normal motor and sensory exam. No focal deficits. Musculoskeletal: No joint tenderness, deformity or swelling. Skin: Normal coloration and turgor. No rashes. Psych: Normal mood and effect LE Physical Exam: VASCULAR: DP pulse weakly palpable, left and PT pulse non-palpable, left. CFT < 3 sec to all digits, left.Mild edema appreciated to the level of the ankle, left . NEUROLOGICAL: Light touch sensation intact to the level of the mid-tibia, left. DERMATOLOGICAL: Skin is warm, dry and supple, B/L. Left subfifth metatarsal head wound: Full thickness ulceration noted to plantar aspect of the fifth metatarsal, left, measuring 1.2 cm x1.5 cm x 1.0 cm deep. Wound base is Mixed fibro-granular. Wound does not probe to bone, but does probe deeply to periosteum. No Malodor. No erythema, edema, calor, purulence, drainage, ecchymosis, crepitus, or fluctuance appreciated. Left calcaneal wound: Dry eschar appreciated to the plantar aspect of the left calcaneus. No purulence appreciated. No deep probe appreciated. Wound does not probe to bone. No malodor. No crepitus, fluctuance, bogginess appreciated. MUSCULOSKELETAL: No TTP to left foot. Muscle strength, 5/5, left. Previous BKA noted, right. Gastro-soleal equinus appreciated, left. LABS: Lab Results Component Value Date WBC 11.29 (H) 01/09/2022 HGB 8.4 (L) 01/09/2022 HCT 25.8 (L) 01/09/2022 MCV 89.0 01/09/2022 PLT 316 01/09/2022 Lab Results Component Value Date NA 138 01/09/2022 K 4.8 01/09/2022 CL 100 01/09/2022 PHOS 3.3 08/16/2020 BUN 48 (H) 01/09/2022 CREATININE 1.30 01/09/2022 CREATININE 1.2 10/17/2020 No results found for: GLU Lab Results Component Value Date CALCIUM 9.5 01/09/2022 PHOS 3.3 08/16/2020 Lab Results Component Value Date MG 1.9 07/27/2020 Lab Results Component Value Date BILITOT 1.2 10/19/2020 AST 17 10/19/2020 ALT 10 10/19/2020 ALKPHOS 82 10/19/2020 Lab Results Component Value Date SEDRATE 74 (H) 01/09/2022 Lab Results Component Value Date CRP 28.4 (H) 01/09/2022 No results found for: PREALBUMIN Lab Results Component Value Date HGBA1C 6.7 (H) 01/09/2022 Associated attestation - Ramana Jaramillo DPM - 01/10/2022 8:17 AM EST I have reviewed the notes, assessments, and/or procedures performed by Dr. Tan, I concur with hisdocumentation of Mikayla Pappas. He will likely require surgical intervention during this admission, no urgent plans for OR. Furtherrecs pending MRI and NVIS. Ramana Jaramillo DPM AACFAS documented in this [id number] Consult note* Mimi Cuellar RN - 01/15/2022 1:06 PM EDTAssociated Order(s): IP CONSULT TO ENTEROSTOMAL THERAPY Images from the original note were not included. Patient seen for wound vac application. Left heel wound, diabetic ulcer, measuring 5 x 5 x 3cm with large amounts of connective tissue and slough. Red granular tissue at edges, callus to periwound. Cleansed with saline. Two pieces of blackfoam applied to fill wound and create bridge to dorsal foot. Suction obtained utilizing vac [id number] with no noted errors. Trac pad cushioned with kerlix and wrapped with SPENCER Dry suture line on lateral foot, covered with dry dressing. [id number] Hospital Discharge instructions* Discharge Instructions* Cedric Tan DPM - 01/15/2022 11:22 AM EDT Continuous flow at -125 mmHg with Black foam. - Registered nurse (RN) for wound VAC care and dressing change. - RN to assess, monitor and treat wound. - Wound VAC Site: Left heel - To be broken down and re-applied 3 times a week - 2 to 3 days of supplies have been sent home with patient - Wound VAC has been ordered on 01/12/2022. - If wound VAC will not be delivered to home before first visit, RN to do wet to dry dressing changes with normal saline daily until wound VAC is available. Apply 4x4 & gauze roll, secure with tape. - Please continue heel boot while in bed to the LLE documented in this [id number] Note* Plan of Care - Wiliam Bryant RN - 01/15/2022 3:46 AM EDT 1950: Assumed care of patient. [place]. [place] 9th [place] [facility] [place]. Pt. Is A+O X 4. Upon assessment, Pt. Denies any CP, SOB, dizzy, lightheaded, N/V/D. Pt. Safety maintained. Bed low and locked, side rails up. Instructed patient to call prior to getting out of bed, call light in reach, table in reach with belongings. Pt. Has R BKA. Possible wound vac. Placement to come? Plan Of Care Pt. Safety maintain Bed low and locked Side rails up Telemetry VS as ordered Will notify LIP of pt. New onset CP, SOB, pulse ox < 92 percent Chronic todd to stay in Problem: Actual or potential alteration in health Goal: Absence of healthcare acquired conditions Outcome: Partially Met Goal: Knowledge of Interdisciplinary Plan of Care Outcome: Partially Met Goal: Knowledge of Enviroment Outcome: Partially Met Problem: Pressure Ulcer - Risk of Goal: Absence of pressure ulcer Outcome: Partially Met Problem: Pain Goal: Manage acute pain Outcome: Partially Met Goal: Manage chronic pain Outcome: Partially Met Goal: Reduced pain sensation Outcome: Partially Met Goal: Achievement of comfort function goal Outcome: Partially Met Problem: Falls, Risk of Goal: Absence of falls Outcome: Partially Met Problem: Breathing Pattern - Ineffective Goal: Effective breathing pattern Outcome: Partially Met [id number] Consult note* Rakesh Muñoz MD - 01/14/2022 10:26 AM EDTAssociated Order(s): IP CONSULT TO INFECTIOUS DISEASES CONSULT NOTE Patient Name: Mikayla Pappas Admit Date: [id number] MR #: [id number] : 1960 Physicians: Greyson Dominguez MD (Family); Jet Calvillo DPM (Referring) Chief Complaint/Reason for Visit: Left foot osteomyelitis History of Present Illness: Mikayla Pappas is a 61 y.o. male with history of diabetes, peripheral vascular disease, history stroke, sleep apnea, hypertension, hyperlipidemia, urinary retention whopresents with left foot wound with imaging suggestive of fifth metatarsal osteomyelitis and possible calcaneal osteomyelitis. He has undergone partial fifth ray resection and heel debridement. Cultures are pending. Preliminary surface culture MRSA and surgical culture coag negative staph and he is currently on vancomycin/Flagyl/Ancef. As I encounter him he is in no acute distress. 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 f/u Past Surgical History: Procedure Laterality Date AMPUTATION FOOT Left 08/05/2020 Procedure: POSSIBLE AMPUTATION; Surgeon: Jet Calvillo DPM; Location: [facility] OR; Service: Podiatry AMPUTATION TOE(S) Right 08/03/2016 Procedure: RIGHT 3RD DIGIT AMPUTATION ; Surgeon: Jet Calvillo DPM; Location: [facility] OR; Service: CARDIAC CATHETERIZATION ablation for WPW CATHETER INSERTION SUPRAPUBIC N/A 08/16/2020 Procedure: CATHETER PLACEMENT OVER GUIDE; Surgeon: Paul Kim MD; Location: [facility]; Service: Urology CYSTO DIRECT VISION INTERNAL URETHROTOMY N/A 08/16/2020 Procedure: CYSTOSCOPY URETERAL DILATION POSSIBLE DIRECT VISION INTERNAL URETHROTOMY; Surgeon: Paul Kim MD; [place] [facility] [place]; Service: Urology FOOT SURGERY Right 2nd toe partial amputation INCISION AND DRAINAGE FOOT AND ANKLE Left 07/29/2020 Procedure: LEFT FOOT ULCER INCISION AND DRAINAGE LEFT FOOT BONE DEBRIDEMENT W/ BIOPSY; Surgeon: Jet Calvillo DPM; Location: [facility] OR; Service: Podiatry INCISION AND DRAINAGE FOOT AND ANKLE Left 08/05/2020 Procedure: LEFT FOOT ULCER DEBRIDEMENT; Surgeon: Jet Calvillo DPM; Location: [facility] OR; Service: Podiatry Family History: No TB Social History Tobacco Use Smoking status: Never Smoker Smokeless tobacco: Never Used Vaping Use Vaping Use: Never used Substance Use Topics Alcohol use: No Drug use: No Allergy Information: I have reviewed the patient's allergies. Dilantin infatabs [phenytoin] Home Medications: Outpatient Medications as of 01/14/2022 Medication Sig cyanocobalamin (B-12) 500 MCG tablet Take 1 tablet by mouth daily . glipiZIDE (GLUCOTROL XL) 10 MG 24 hr tablet Take 10 mg by mouth daily . alcohol swabs PadM Check your sugars up to 4 times a day . amLODIPine (NORVASC) 10 MG tablet Take 1 (one) tablet (10 mg total) by mouth daily Start: 08/07/20. ascorbic acid, vitamin C, (VITAMIN C) 500 MG tablet Take 500 mg by mouth daily . pkhnbyp-ynqwuhivbkfwu-ichuhqso (EXCEDRIN MIGRAINE) 250-250-65 mg per tablet Take 1 tablet by mouth every 6 (six) hours as needed for pain. blood sugar diagnostic strips Check your sugars up to 4 times a day . blood-glucose meter Misc Check your sugars up to 4 times a day . doxazosin (CARDURA) 4 MG tablet Take 4 mg by mouth daily . insulin lispro (HumaLOG KwikPen Insulin) 100 unit/mL InPn For blood sugar 141- 180 give 2 units subcutaneoulsy, for 181-220 give 4 units, for 221-260 give 6 units, and for 261-300 give 8 units. . lancets Misc Check your sugars up to 4 times a day . losartan (COZAAR) 25 MG tablet Take 25 mg by mouth daily . pen needle, diabetic 32 gauge x / Ndle Change pen needles daily as needed up to 4 times. . rosuvastatin (Crestor) 40 MG tablet Take 1 (one) tablet (40 mg total) by mouth every evening . sitagliptan-metFORMIN (JANUMET) 50-1,000 mg per tablet Take 1 tablet by mouth daily . Hospital Medications: Current Facility-Administered Medications Medication Dose Route Frequency Provider Last Rate Last Admin acetaminophen (TYLENOL) tablet 650 mg 650 mg Oral Q4H PRN Franca Earl CNP 650 mg at 01/13/22 0035 aluminum-magnesium hydroxide-simethicone (MAALOX PLUS) 200-200-20 mg/5 mL suspension 30 mL 30 mL Oral Q4H PRN Franca Earl CNP aspirin EC tablet 81 mg 81 mg Oral Daily Franca Earl CNP 81 mg at 01/14/22 0843 atorvastatin (LIPITOR) tablet 80 mg 80 mg Oral Nightly Franca Earl CNP 80 mg at 01/13/22 215 ceFAZolin (ANCEF) IVPB 2 g (premix) 2,000 mg Intravenous Q8H Franca Earl CNP 100 mL/hr at 01/14/22 0526 2,000 mg at 01/14/22 0526 DULoxetine (CYMBALTA) DR capsule 90 mg 90 mg Oral at bedtime Franca Earl CNP 90 mg at 01/13/22 2100 enoxaparin (LOVENOX) syringe 40 mg 40 mg Subcutaneous Daily Cedric Tan DPM 40 mg at 01/14/22 0842 ferrous sulfate tablet 325 mg 325 mg Oral Daily with breakfast Adalberto Hernandez DO 325 mg at 01/14/22 0843 gabapentin (NEURONTIN) capsule 100 mg 100 mg Oral Nightly Franca Earl CNP 100 mg at 01/13/222153 hydrOXYzine (ATARAX) tablet 25 mg 25 mg Oral TID PRN Adalberto Hernandez DO insulin glargine (LANTUS) injection 22 Units 22 Units Subcutaneous Nightly Franca Earl CNP 22Units at 01/13/222153 insulin lispro (AdmeLOG,HumaLOG) injection 0-15 Units 0-15 Units Subcutaneous at bedtime Franca Cormier CNP 2 Units at 01/12/22 2100 insulin lispro (AdmeLOG,HumaLOG) injection 0-30 Units 0-30 Units Subcutaneous TID AC Franca Earl CNP 2 Units at 01/14/22 0842 melatonin Tab 5 mg 5 mg Oral Nightly Adalberto Doylee, DO 5 mg at 01/13/22 2154 metroNIDAZOLE (FLAGYL) tablet 500 mg 500 mg Oral TID with meals Adalberto Doylee, DO 500 mgat 01/14/22 0843 naloxone (NARCAN) injection 0.1 mg 0.1 mg Intravenous PRN Cedric Tan DPM And naloxone (NARCAN) injection 0.4 mg 0.4 mg Intravenous PRN Cedric Tan DPM naloxone (NARCAN) injection 0.1 mg 0.1 mg Intravenous PRN Cedric Tan DPM And naloxone (NARCAN) injection 0.4 mg 0.4 mg Intravenous PRN Cedric Tan, [place] ondansetron (ZOFRAN-ODT) disintegrating tablet 4 mg 4 mg Oral Q6H PRN Franca Earl CNP 4 mg at01/14/22 0741 Or ondansetron (ZOFRAN) injection 4 mg 4 mg Intravenous Q6H PRN Franca Earl CNP oxyCODONE (ROXICODONE) immediate release tablet 5-10 mg 5-10 mg Oral Q4H PRN HAYDEN WarnerM 10mg at 01/13/22 0657 senna (SENOKOT) tablet 8.6 mg 1 tablet Oral BID PRN Franca Earl CNP 8.6 mg at 01/11/22 0823 senna-docusate (SENNA-S) 8.6-50 mg per tablet 1 tablet 1 tablet Oral BID Franca Earl CNP 1 tablet at 01/14/22 0843 sodium chloride (PF) (NS) flush 5 mL 5 mL Intravenous PRN Franca Earl CNP And sodium chloride (PF) (NS) flush 5 mL 5 mL Intravenous Q8H KAM Franca Earl CNP 5 mL at 01/14/22 0600 And sodium chloride 0.9% (NS) 0-150 mL/hr Intravenous PRN Franca Earl CNP Stopped at 01/12/22 0813 tolterodine (DETROL LA) 24 hr capsule 2 mg 2 mg Oral Daily Franca Earl CNP 2 mg at 01/14/22 0842 vancomycin (VANCOCIN) 1250 mg in sterile water 250 mL IVPB (Xellia) 1,250 mg Intravenous Q24H Adalberto Mcgarry VivekradhaDO 250 mL/hr at 01/14/22 0000 1,250 mg at 01/14/22 0000 Review of Systems: The following system(s) were reviewed and pertinent findings noted: Constitutional, Eyes, ENT, CV, Resp, GI, Neuro, Skin, Musc, , Heme/Lym Physical Examination: Vital Signs: BP 139/80 Pulse 77 Temp 98.1 F (36.7 C) (Oral) Resp 16 Ht 5' 8 Wt 81.6 kg (180 lb) SpO2 97% BMI 27.37 kg/m General: No acute distress Head: Normocephalic, without obvious abnormality, atraumatic Eyes: Conjunctiva/corneas clear Throat: Lips, mucosa without lesions Neck: Supple, symmetrical, trachea midline, no adenopathy; Lungs: Clear to auscultation bilaterally, respirations unlabored,normal respiratory effort Cardiovascular: Regular rate and rhythm, S1 and S2 normal, no murmur, rub or gallop; no edema Abdomen: Soft, non-tender, bowel sounds active,no masses, no organomegaly Skin: Turgor normal, no rashes or lesions or nodules Extremities: No cyanosis,clubbing Musculoskeletal: No joint edema Neurologic: Has had some right-sided weakness Psych: Mood and affect appropriate Laboratory and Additional Data Reviewed: Lab Results Component Value Date WBC 9.36 01/14/2022 HGB 7.3 (L) 01/14/2022 HCT 22.8 (L) 01/14/2022 MCV 91.9 01/14/2022 PLT 304 01/14/2022 Lab Results Component Value Date GLUCOSE 190 (H) 01/14/2022 CALCIUM 8.6 01/14/2022 NA 138 01/14/2022 K 5.2 (H) 01/14/2022 CL 104 01/14/2022 BUN 40 (H) 01/14/2022 CREATININE 1.26 01/14/2022 Cultures: MRSA/coag negative staph Radiology: Ultrasound duplex carotid Final Result XR Chest 1 View Final Result Low lung volume portable chest radiograph with grossly clear lungs. Workstation ID: [id number] MR Foot Left Without Contrast Final Result 1. Acute osteomyelitis in the plantar calcaneus adjacent to the ulcer. 2. Acute osteomyelitis in the 5th metatarsal head and neck and proximal 5th phalanx adjacent to theulcer. 3. No soft tissue abscess. 4. Nonspecific increased signal in the distal phalanx of the 1st, 2nd and 3rd digits. This could bedue to artifact. This finding can also be seen with Raynaud's phenomenon or frostbite injury. 5. Intramuscular edema and atrophy in the plantar foot musculature compatible with neuropathy. [employer] Workstation ID: [id number] MR Heel Left Without Contrast Final Result 1. Acute osteomyelitis in the plantar calcaneus adjacent to the ulcer. 2. Acute osteomyelitis in the 5th metatarsal head and neck and proximal 5th phalanx adjacent to theulcer. 3. No soft tissue abscess. 4. Nonspecific increased signal in the distal phalanx of the 1st, 2nd and 3rd digits. This could bedue to artifact. This finding can also be seen with Raynaud's phenomenon or frostbite injury. 5. Intramuscular edema and atrophy in the plantar foot musculature compatible with neuropathy. [employer] Workstation ID: [id number] Ultrasound duplex arterial legs bilat Final Result US Doppler ankle/brachial index Final Result XR Foot Left 3+ Views (Standard) Final Result 1. Suspected shallow soft tissue ulceration of the heel with forefoot soft tissue swelling. No radiographic evidence of osteomyelitis of the calcaneus. 2. Chronic appearing erosion along the lateral aspect of the 2nd metatarsal head new from 07/26/2020. If there is a nearby soft tissue ulceration osteomyelitis is not excluded. Alternatively, this raises the possibility of gout or less likely an inflammatory arthritis. Workstation ID: [id number] Assessment and Plan: #1 Left foot osteomyelitis-status partial fifth ray resection, concern about calcaneal involvement and has had debridement, culture pending and will need to decide antibiotic therapy for this. Hopefully metatarsal resection will be curative at that site 2. Diabetes-monitor control glucose 3. Anemia-chronic, as per primary 4. Urinary retention-has Todd catheter 5. History CVA-physical therapy 6. Sleep apnea-CPAP as needed Disposition Comments: Await data to determine optimal discharge antibiotic regimen Rakesh Muñoz MD; pager [phone] [id number] Note* Plan of Care - Leonarda Barrios RN - 01/13/2022 6:04 PM EST Problem: Pain Goal: Manage acute pain Outcome: Partially Met Problem: Falls, Risk of Goal: Absence of falls Outcome: Partially Met [id number] Note* Plan of Care - Romana Claire RRT - 01/13/2022 12:41 PM EST Problem: Breathing Pattern - Ineffective Goal: Effective breathing pattern Outcome: Partially Met Note: 1. Assess respiratory status through observation of chest for excursion, breath sounds, cougheffort & sputum production, and respiratory rate. 2. Notify physician of clinical changes. Continue current therapy Category B Respiratory Orders (From admission, onward) Start Ordered 01/12/222305 Pulse oximetry continuous Continuous Comments: Notify physician if SpO2 less than 90% Question: Release to patient Answer: Immediate 01/12/22 2305 01/12/22 230 Incentive spirometry Every 1 hour (RT) Comments: 10 times every hour while awake Question: Release to patient Answer: Immediate 01/12/22 2305 01/09/22 2200 CPAP (KNOWN Sleep Disordered Breathing / Obstructive Apnea (Respiratory Care Device))At bedtime Comments: Notify physician for evidence of exclusion criteria, SpO2 less than goal, pH less than 7.25, PCO2 elevation; systolic BP less than 90 mmHg; decrease in LOC, no improvement in respiratory distress, inability to tolerate therapy, or other progressive medical instability. Question Answer Comment CPAP 8 FiO2 weaning to SpO2 goal of: 90% to 95% Diagnosis LORENA (obstructive sleep apnea) Release to patient Immediate 01/09/22 1634 01/09/22 1635 Incentive spirometry Every 2 hours while awake (RT) Question: Release to patient Answer: Immediate 01/09/22 1634 01/09/22 1620 Nasal cannula oxygen (Oxygen Panel (Low Flow)) Continuous Comments: Titrate UP as needed. 1. For patients that can meet SpO2 goals, place on a nasal cannula at L of flow as indicated by therange above, with the lowest flow to achieve the SpO2 goal. 2. If the SpO2 goal is not met by a nasal cannula, contact RT to place patient on a Venturi mask, with the lowest flow to achieve the SpO2 goal. Titrate DOWN as soon as able. Notify physician if oxygen increases by 3L or 10% FiO2. Question Answer Comment Goal SpO2 90-95% Minimum O2 flow, in Liters Per Minute: 0 Maximum O2 flow, in Liters Per Minute 6 Release to patient Immediate And Linked Group Details 01/09/22 1634 01/09/22 1620 Venturi mask oxygen (Oxygen Panel (Low Flow)) Continuous Comments: Titrate UP as needed. 1. For patients that can meet SpO2 goals, place on a nasal cannula at L of flow as indicated by therange above, with the lowest flow to achieve the SpO2 goal. 2. If the SpO2 goal is not met by a nasal cannula, contact RT to place patient on a Venturi mask, with the lowest flow to achieve the SpO2 goal. Titrate DOWN as soon as able. Notify physician if oxygen increases by 3L or 10% FiO2. Question Answer Comment Goal SpO2 90-95% Minimum O2 flow, in Liters Per Minute: 0 Maximum O2 flow, in Liters Per Minute 6 Release to patient Immediate And Linked Group Details 01/09/22 1634 [id number] Consult note* CLAY Marcial - 01/13/2022 8:43 AM ESTAssociated Order(s): IP CONSULT TO CARE MANAGEMENT; IP CONSULT TO CARE MANAGEMENT Care Management Progress Note Patient Name: Mikayla Pappas Reason for Consult: Wound Vac Placement. 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 Barriers to Discharge/Plan for Follow Up: Patient to return to [facility]. Confirm that this facility can order wound vac prior to patient discharge. [id number]* Plan of Care - Cedric Tan DPM - 01/12/2022 4:57 PM EST FOOT AND ANKLE SURGERY POST-OP PROGRESS NOTE ASSESSMENT: 61 y.o. 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 NWB to LLE DVT prophylaxis is to resume 24 hrs. Post procedure. No further OR planned this admission. Anticipate patient will be OK for discharge early next week pending pathology results and wound VAC placement. Continue IV abx, intraoperative 5th ray sent to micro, intraoperative calcaneal bone biopsy sent to micro, intraoperative post lavage swab sent to binta. -Cedric Tan DPM [place] [id number] Note* Brief Op Note - Cedric Tan DPM - 01/12/2022 1:36 PM EST Brief Post Operative Note Patient Name: Mikayla Pappas : 1960 (61 y.o.) Date of Service: 01/12/2022 CSN: [id number] Procedure(s): LEFT FOOT 5TH RAY PARTIAL AMPUTATION LEFT FOOT INCISION AND DRAINAGE W/ CALCANEOUS BONE BIOPSY Pre-Operative Diagnoses: * LEFT FOOT ULCER W/ UNDERLYING OSTEOMYELITIS Post-Operative Diagnoses: * Same as Pre-Op Diagnosis Surgeon(s) and Role: * Ramana Jaramillo DPM - Primary * Yony Austin DPM - Resident - Assisting * Cedric Tan DPM - Resident - Assisting Anesthesiologist: Chase Rod MD CREW LEADER/CONTROL ROOM OPERATOR: Lillian Cho CRNA Student Nurse Dumper Mold Cleaner: Paul Lantigua II System Dispatcher: Arabella Venegas RN; Jairon Hutton RN Scrub Person: ST Jessica Anesthesia Specialist: Cristian Lima Operative findings: Soft, necrotic 5th PP and 5th MT head. Hard white and shiny 5th MT shaft. Necrotic tissue at plantar calcaneus. No exposed bone. Debrided to subcutaneous and including subcutaneous. Packed with betadine WTD. Intra and immediate post-operative complications: None Type of anesthesia used: General Estimated blood loss: 20 mL Estimated urine output: Specimen(s): ID Type Source Tests Collected by Time Destination 1 : left foot 5th ray to micro Bone Foot, Left BONE AEROBIC CULTURE, BONE ANAEROBIC CULTURE Boles Shaek, [facility] 01/12/2022 1255 2 : left foot bone biopsy Bone Foot, Left BONE AEROBIC CULTURE, BONE ANAEROBIC CULTURE Boles Shaek, [facility] 01/12/2022 1257 3 : left foot post lavage swab Swab Foot, Left SURGICAL SITE AEROBIC CULTURE, SURGICAL SITE ANAEROBIC CULTURE Boles Shaek, [facility] 01/12/2022 1300 A : left foot 5th ray to micro Bone Foot, Left TISSUE EXAM (Canceled) Boles Segundoek, [facility] 01/12/2022 1249 Implant(s): * No implants in log * Drain(s): Urethral Catheter Coude 16 Fr. (Active) Reassessment Unchd 01/12/22 0020 Site Assessment Clean;Intact 01/11/222020 Collection Container Standard drainage bag 01/11/222020 Securement Method Leg strap 01/10/222023 Reason for Continued Urinary Catheter Chronic history of indwelling or supra- pubic catheter 01/11/222020 Output (mL) 350 mL 01/11/22 1100 Wound(s): Wound 08/16/20 Surgical Wound Penis (Active) Wound Heel Left (Active) Reassessment Unchd 01/12/22 0320 Dressing Status Clean;Dry;Intact 01/11/222020 Drainage Amount None 01/09/221950 Wound Bed Characteristics Black;Brown 01/09/221950 Primary Dressing AMD dressing 01/09/221950 Secondary Dressing Gauze roll 01/10/222023 Wound 01/09/22 Anterior;Left;Plantar (Active) Reassessment Unchd 01/12/22 0320 Dressing Status Clean;Dry;Intact 01/11/222020 Drainage Amount None 01/10/222023 Wound Bed Characteristics Brown;Black 01/09/221950 Primary Dressing Gauze roll 01/10/222023 Wound 01/09/22 Ankle Anterior;Left (Active) Reassessment Unchd 01/12/22 0320 Dressing Status Clean;Dry;Intact 01/11/222020 Drainage Amount None 01/09/221950 Drainage Description Pool 01/09/22 1745 Odor None 01/09/221744 Wound Bed Characteristics CRISTA (Unable to assess) 01/09/221950 Primary Dressing Non adherent 01/09/221744 Secondary Dressing Gauze roll 01/10/222023 Wound 01/12/22 Surgical Wound Foot Anterior;Left (Active) Cedric Tan DPM 01/12/2022 1:36 PM [id number] Note* Op Note - Ramana Jaramillo DPM - 01/12/2022 12:43 PM EST PATIENT: Mikayla Pappas [facility] [id number] 1960 (61 y.o.) DATE 01/12/2022 OPERATIVE REPORT Surgeon(s) and Role: * Ramana Jaramillo DPM - Primary * Cedric Tan DPM - Resident - Assisting ANESTHESIA TEAM Anesthesiologist: Chase Rod MD CREW LEADER/CONTROL ROOM OPERATOR: Lillian Cho CRNA Student Nurse Dumper Mold Cleaner: Paul Lantigua II PREOPERATIVE DIAGNOSIS LEFT FOOT ULCER W/ UNDERLYING OSTEOMYELITIS POSTOPERATIVE DIAGNOSIS LEFT FOOT ULCER W/ UNDERLYING OSTEOMYELITIS PROCEDURE Procedure(s): LEFT FOOT 5TH RAY PARTIAL AMPUTATION LEFT FOOT INCISION AND DRAINAGE W/ CALCANEOUS BONE BIOPSY PATHOLOGY ID Type Source Tests Collected by Time Destination 1 : left foot 5th ray to micro Bone Foot, Left BONE AEROBIC CULTURE, BONE ANAEROBIC CULTURE Ramana Jaramillo DPM 01/12/2022 1255 2 : left foot bone biopsy Bone Foot, Left BONE AEROBIC CULTURE, BONE ANAEROBIC CULTURE Ramana Jaramillo DPM 01/12/2022 1257 3 : left foot post lavage swab Swab Foot, Left SURGICAL SITE AEROBIC CULTURE, SURGICAL SITE ANAEROBIC CULTURE Ramana Jaramillo DPM 01/12/2022 1300 A : left foot 5th ray to micro Bone Foot, Left TISSUE EXAM (Canceled) Ramana Jaramillo DPM 01/12/2022 1249 ANESTHESIA General HEMOSTASIS Manual compression, electrocautery ESTIMATED BLOOD LOSS See anesthesia note. MATERIALS * No implants in log * INJECTABLES 20 cc of 0.5% Marcaine plain injected into the left foot postoperatively COMPLICATIONS None. INDICATION FOR PROCEDURE This is a 61 y.o.-year-old male patient presenting with osteomyelitis of the left fifth ray, chronic decubitus wound of the calcaneus with concern for possible osteomyelitis of the calcaneus. MRI with signal intensity changes at the left fifth metatarsal head and fifth metatarsal base, as well as the plantar calcaneus. Discussed in length treatment options for surgical intervention. Patient is amenable to left partial fifth ray resection, I&D, bone biopsy of the calcaneus. Patient has exhausted conservative measures at this time and has elected to undergo the above-mentioned surgical intervention. Risks, benefits, indications, and complications were discussed at length with the patient.No guarantees were implied or given. Consent was signed and placed in the chart. PROCEDURE IN DETAIL Patient was brought from the preoperative holding area to the OR and placed in a secure supine position. The above-mentioned anesthesia was administered per the anesthesia team. A time-out was performed to confirm the patient's name, date of , procedure, laterality, and all present were in agreement. The operative lower extremity was then prepped and draped utilizing normal aseptic sterile fashion, and a Betadine scrub was performed. Attention was directed to the left foot where a racquet type incision was made along the fifth ray using a #15 blade down through the subcutaneous tissue to the level of bone. This incision encompassed all aspects of necrotic and fibrotic tissue. The fifth toe was then disarticulated at the metatars alphalangeal joint. The bone within the fifth digit was noted to be soft in nature. We then utilized a #15 blade to reflect the soft tissues off of the fifth metatarsal head and neck region. We then utilized a lozano elevator to further reflect the soft tissues dorsally, medially, and laterally. We then utilized retractors to protect the soft tissues. We then utilized a microsagittal saw to resect the fifth metatarsal just proximal to the fifth metatarsal neck. This cut was made in a dorsal distalto proximal plantar fashion, and we ensured to appropriately bevel the fifth metatarsal. Of note, th e metatarsal head was noted to be soft in nature. No purulence or proximal extension was noted. Theremaining fifth metatarsal was noted to be hard, shiny, white, without evidence of necrosis. The amputated fifth digit and fifth metatarsal was passed to the back table, labeled and sent to microbiology. Necrotic and fibrotic tissues within the surgical wound bed were excised in full. Any tendinous structures within the wound bed were excised as far proximal as possible out of the surgicalwound bed. The remaining surgical wound bed was granular with adequate bleeding at the wound bed and skin edges. No signs of necrosis or purulence were noted. We then irrigated the surgical site with copious amounts of sterile saline using gravity lavage andcystoscopy tubing. We then removed our outer gloves and placed a sterile towel underneath the operative foot. Layered closure was obtained utilizing Vicryl suture for deep and subcutaneous tissues and nylon suture for skin closure. There was minimal tension at skin edges. We then addressed our attention to the plantar aspect of the calcaneus. Utilizing a #10 blade we made a full-thickness incision circumferentially around the wound, ensuring to encompass all aspects of necrotic and fibrotic tissue. We then excisionally debrided the wound to the level of subcutaneoustissue and including subcutaneous tissue. There was necrotic tissue noted within this wound bed. Wethen utilized a rongeur to remove all necrotic and fibrotic tissue within the wound bed. There was no exposed bone within the wound bed, no tendinous structures identified. We then palpated and identified the lateral wall of the calcaneus. Utilizing a Jamshidi needle, we percutaneously entered the lateral wall of the calcaneus in standard fashion. Once we broke through the cortical bone, we removed the trocar and began rotating the Jamshidi needle clockwise and counterclockwise through the medullary bone. We then twisted the Jamshidi needle, again in a clockwise andcounterclockwise fashion and removed the Jamshidi needle. The bone biopsy of the calcaneus was passed to the back table, labeled appropriately and sent to microbiology for further evaluation. We thenflushed the surgical site with copious amounts of normal saline utilizing gravity lavage and cystoscopy tubing. We then obtained a post and lavage swab culture which was passed to the back table, labeled appropriately and sent to microbiology. Hemostasis was maintained throughout the procedure with manual compression and electrocautery. A postoperative injection was performed utilizing 20 cc of 0.5% Marcaine plain injected into the operative lower extremity. Dressing consisted of Betadine soaked gauze packing to the heel, Betadine soaked Adaptic to the partial ray amputation site, DSD, Kerlix, Spencer. The patient tolerated the procedure and anesthesia well and without complications. The patient was transported from the OR to PACU with vital signs stable and vascular status intact to the operative lower extremity. The patient is to be readmitted to the floor per PACU protocol. FUTURE PLAN No further OR planned this admission. Anticipate patient will be OK for discharge early next week pending intraoperative culture results and wound VAC placement. Continue IV abx, tailor cultures as able. We will plan to round on patient in the a.m. and change dressing on Saturday. [employer] Phone: [phone]) 396-316103-11-2022 Note* [facility] - MAGEN Jhaveri - 01/12/2022 10:27 AM EST OCCUPATIONAL THERAPY VISIT VARIANCE NOTE Attempted to see patient at this time, but unable secondary to: Patient Unavailable (comment) (Pt awaiting transport for procedure.). Will follow up as appropriate. [id number] Attending History and physical note* Cedric Tan DPM - 01/12/2022 9:50 AM EST INTERVAL HISTORY AND PHYSICAL Patient Name: Mikayla Pappas Admit Date: [id number] MR #: [id number] : 1960 The H&P has been reviewed and the patient has been examined. I concur with the findings of the H&P. There are no significant changes. It is appropriate to proceed with the planned procedure. Please see Adalberto Hernandez DO progress note for preoperative risk stratification. WBC 8.9,Hgb 7.7, INR 1.3 Cedric Tan DPM 01/12/2022 9:50 AM Source Note - [place] Solaresradha Earl, WEB MANAGER - 01/09/2022 3:03 PM EST HMS HISTORY AND PHYSICAL Patient Name: Mikayla Pappas : 1960 MR #: [id number] Admit Date: 01/09/2022 Physicians: Greyson Dominguez MD (Family); Jet Calvillo DPM (Referring) Mikayla Pappas is a 61 y.o. male patient of Greyson Dominguez MD with history of PVD, Diabetestype II, CVA, depression, LORENA, R BKA, anemia, HTN, HLD, urinary retention presented with worsening left diabetic foot ulcer. Chronic Diabetic ulcer on left foot H/o R BKA PVD P/w worsening foot ulcer with necrosis on left foot Wound present since 08/2020 HDS, afebrile, WBC 11k CRP/sed rate 28.4, 74, lactic pending Blood cultures collected and pending Left foot Xrays with shallow soft tissue ulceration of the heel with forefoot soft tissue swelling.No radiographic evidence of osteomyelitis of the calcaneus. Chronic appearing erosion along the lateral aspect of the 2nd metatarsal head new from 07/26/2020. If there is a nearby soft tissue ulceration osteomyelitis is not excluded Left foot MRI pending Continue ancef, flagy and vanc started in ED Wound care consult PT/OT Podiatry consulted by ED, aware of patient Uncontrolled IDDM2 with Hyperglycemia Chronic diabetic neuropathy BS 199 on admit, A1C pending on Janumet, Glipizide and Lantus, hold orals Unclear compliance at home Continue home gabapentin SSI, diabetic diet, home lantus BAILEE Creat 1.3, BUN 48, GFR 59 Baseline creat ~1, GFR ~70, likely related to decreased intake Will hold lasix for now, monitor daily labs Chronic Normocytic Anemia Baseline Hgb ~10, Hgb 8.4 on admission No active s/sx of bleeding, HDS Will check iron studies and B12/folate Monitor daily CBC, transfuse for Hgb <7 Chronic Urinary Retention Chronic todd catheter Todd placed in Dr. Mercedes's office, follows there Continue Todd Continue home oxybutynin Urology f/u OP encouraged H/o CVA Generalized Weakness 10/2020, treated at [facility] Residual bilateral weakness, no deficits Pt resides at [facility] for rehab PT/OT consult Continue asa and lipitor Essential HTN Normotensive on arrival Per ECF med list pt only on lasix, previously on norvasc 10, losartan 25, monitor for need to restart medications. Consider substituting losartan for lasix on discharge. HLD Continue home statin Depression Continue home cymbalta Mood appears stable LORENA Continue CPAP at bedtime and with naps Pt desats to ~89% while sleeping Admitted From: SNF/ECF Medication Reconciliation: Verified Code Status: Full Code Quality Measures DVT Prophylaxis: SCDs and Transition to pharmacologic management carlos pending podiatry recs Todd Catheter: present Admission does not require smart-phrase Chief Complaint Worsening left diabetic foot ulcer History of Present Illness Mikayla Pappas is a 61 y.o. male patient of Greyson Dominguez MD with history of PVD, Diabetes type II, CVA, depression, LORENA, R BKA, anemia, HTN, HLD, urinary retention presented with worsening left diabetic foot ulcer. Patient states that he feels at his baseline, not having increased pain but states that his ECF told him that his left foot wound is getting worse.His np suggested he come to the ED for evaluation. He currently has no complaints other than being a little tired and chronic numbness/tingling of extremities. He denies CP, SOB, fevers/chills, N/V/D, pain. 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 bobbin presser f/u Past Surgical History Past Surgical History: Procedure Laterality Date AMPUTATION FOOT Left 08/05/2020 Procedure: POSSIBLE AMPUTATION; Surgeon: Jet Calvillo DPM; Location: [facility] OR; Service: Podiatry AMPUTATION TOE(S) Right 08/03/2016 Procedure: RIGHT 3RD DIGIT AMPUTATION ; Surgeon: Jet Calvillo DPM; Location: [facility] OR; Service: CARDIAC CATHETERIZATION ablation for WPW CATHETER INSERTION SUPRAPUBIC N/A 08/16/2020 Procedure: CATHETER PLACEMENT OVER GUIDE; Surgeon: Paul Kim MD; Location: [facility] OR; Service: Urology CYSTO DIRECT VISION INTERNAL URETHROTOMY N/A 08/16/2020 Procedure: CYSTOSCOPY URETERAL DILATION POSSIBLE DIRECT VISION INTERNAL URETHROTOMY; Surgeon: Paul Kim MD; Location: [facility] OR; Service: Urology FOOT SURGERY Right 2nd toe partial amputation INCISION AND DRAINAGE FOOT AND ANKLE Left 07/29/2020 Procedure: LEFT FOOT ULCER INCISION AND DRAINAGE LEFT FOOT BONE DEBRIDEMENT W/ BIOPSY; Surgeon: Jet Calvillo DPM; Location: [facility] OR; Service: Podiatry INCISION AND DRAINAGE FOOT AND ANKLE Left 08/05/2020 Procedure: LEFT FOOT ULCER DEBRIDEMENT; Surgeon: Jet Calvillo DPM; Location: [facility] OR; Service: Podiatry Family History Family History Problem Relation Age of Onset Diabetes Father Surgical complications Neg Hx Anesthesia problems Neg Hx Heart disease Neg Hx Clotting disorder Neg Hx Deep vein thrombosis Neg Hx Pulmonary embolism Neg Hx Social History Social History Tobacco Use Smoking Status Never Smoker Smokeless Tobacco Never Used Social History Substance and Sexual Activity Alcohol Use No Social History Substance and Sexual Activity Drug Use No Allergy Information I have reviewed the patient's allergies. Dilantin infatabs [phenytoin] Home Medications Home medications were reviewed. Review Of Systems Constitutional: Denies fever, chills, weight loss Eyes: Denies vision changes ENT: Denies hearing loss, nasal congestion, sore throat CV: Denies chest pain, palpitations, peripheral edema Respiratory: Denies shortness of breath, cough, wheezing GI: Denies abdominal pain, nausea, vomiting, diarrhea, constipation : Denies dysuria, frequent urination MSK: Denies joint pain or swelling, restricted motion Integumentary: Denies skin changes, pruritis Neurological: Denies dizziness, headache, + numbness or tingling Psychiatric: Denies depression, anxiety, sleep disturbance Endocrine: Denies heat or cold intolerance, excessive thirst Hematological: Denies abnormal bleeding or bruising Allergy/Immunological: Denies hives, swelling of lips or tongue Physical Examination BP (!) 151/64 Pulse 79 Temp 97.7 F (36.5 C) Resp 16 Wt 81.6 kg (180 lb) SpO2 96% BMI 27.37 kg/m General Appearance: alert; chronically ill appearing; in no acute distress HEENT: Head- normocephalic; Eyes- EOMI, sclera anicteric; Ears- hearing intact; Nose- no nasal discharge; Throat- mucous membranes moist Cardiovascular: regular rate and rhythm; normal S1, S2; no murmurs, rubs, clicks or gallops; no peripheral edema Respiratory: lungs clear to auscultation; without wheezes, rales or rhonchi; on nasal cannula 1L since admission, patient desating while sleeping to 89%, known LORENA Abdomen: soft, non-tender, non-distended; positive bowel sounds Neurological: oriented x 3; normal speech; no focal findings or movement disorder noted Musculoskeletal: no significant deformity or tenderness to palpation Skin: normal coloration; no obvious rashes, lesions or skin breakdown Psych: normal mood and affect Laboratory and Additional Data Reviewed Laboratory 01/09/22 4:08 PM Radiology 01/09/22 4:08 PM Cardiology 01/09/22 4:08 PM Medications 01/09/22 4:08 PM Transcriptions 01/09/22 4:08 PM [id number] History and physical note* Cedric Tan DPM - 01/12/2022 9:50 AM EST INTERVAL HISTORY AND PHYSICAL Patient Name: Mikayla Pappas Admit Date: [id number] MR #: [id number] : 1960 The H&P has been reviewed and the patient has been examined. I concur with the findings of the H&P. There are no significant changes. It is appropriate to proceed with the planned procedure. Please see Adalberto Hernandez DO progress note for preoperative risk stratification. WBC 8.9,Hgb 7.7, INR 1.3 Cedric Tan DPM 01/12/2022 9:50 AM Source Note - Franca Earl, WEB MANAGER - 01/09/2022 3:03 PM EST [facility] [place] Patient Name: Mikayla Pappas : 1960 MR #: [id number] Admit Date: 01/09/2022 Physicians: Greyson Dominguez MD (Family); Jet Calvillo DPM (Referring) Mikayla Pappas is a 61 y.o. male patient of Greyson Dominguez MD with history of PVD, Diabetestype II, CVA, depression, LORENA, R BKA, anemia, HTN, HLD, urinary retention presented with worsening left diabetic foot ulcer. Chronic Diabetic ulcer on left foot H/o R BKA PVD P/w worsening foot ulcer with necrosis on left foot Wound present since 08/2020 HDS, afebrile, WBC 11k CRP/sed rate 28.4, 74, lactic pending Blood cultures collected and pending Left foot Xrays with shallow soft tissue ulceration of the heel with forefoot soft tissue swelling.No radiographic evidence of osteomyelitis of the calcaneus. Chronic appearing erosion along the lateral aspect of the 2nd metatarsal head new from 07/26/2020. If there is a nearby soft tissue ulceration osteomyelitis is not excluded Left foot MRI pending Continue ancef, flagy and vanc started in ED Wound care consult PT/OT Podiatry consulted by ED, aware of patient Uncontrolled IDDM2 with Hyperglycemia Chronic diabetic neuropathy BS 199 on admit, A1C pending on Janumet, Glipizide and Lantus, hold orals Unclear compliance at home Continue home gabapentin SSI, diabetic diet, home lantus BAILEE Creat 1.3, BUN 48, GFR 59 Baseline creat ~1, GFR ~70, likely related to decreased intake Will hold lasix for now, monitor daily labs Chronic Normocytic Anemia Baseline Hgb ~10, Hgb 8.4 on admission No active s/sx of bleeding, HDS Will check iron studies and B12/folate Monitor daily CBC, transfuse for Hgb <7 Chronic Urinary Retention Chronic todd catheter Todd placed in Dr. Mercedes's office, follows there Continue Todd Continue home oxybutynin Urology f/u OP encouraged H/o CVA Generalized Weakness 10/2020, treated at [facility] Residual bilateral weakness, no deficits Pt resides at [facility] for rehab PT/OT consult Continue asa and lipitor Essential HTN Normotensive on arrival Per ECF med list pt only on lasix, previously on norvasc 10, losartan 25, monitor for need to restart medications. Consider substituting losartan for lasix on discharge. HLD Continue home statin Depression Continue home cymbalta Mood appears stable LORENA Continue CPAP at bedtime and with naps Pt desats to ~89% while sleeping Admitted From: SNF/ECF Medication Reconciliation: Verified Code Status: Full Code Quality Measures DVT Prophylaxis: SCDs and Transition to pharmacologic management carlos pending podiatry recs Todd Catheter: present Admission does not require smart-phrase Chief Complaint Worsening left diabetic foot ulcer History of Present Illness Mikayla Pappas is a 61 y.o. male patient of Greyson Dominguez MD with history of PVD, Diabetes type II, CVA, depression, LORENA, R BKA, anemia, HTN, HLD, urinary retention presented with worsening left diabetic foot ulcer. Patient states that he feels at his baseline, not having increased pain but states that his ECF told him that his left foot wound is getting worse.His np suggested he come to the ED for evaluation. He currently has no complaints other than being a little tired and chronic numbness/tingling of extremities. He denies CP, SOB, fevers/chills, N/V/D, pain. 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 bobbin presser f/u Past Surgical History Past Surgical History: Procedure Laterality Date AMPUTATION FOOT Left 08/05/2020 Procedure: POSSIBLE AMPUTATION; Surgeon: Jet Calvillo DPM; Location: [facility] OR; Service: Podiatry AMPUTATION TOE(S) Right 08/03/2016 Procedure: RIGHT 3RD DIGIT AMPUTATION ; Surgeon: Jet Calvillo DPM; Location: [facility] OR; Service: CARDIAC CATHETERIZATION ablation for WPW CATHETER INSERTION SUPRAPUBIC N/A 08/16/2020 Procedure: CATHETER PLACEMENT OVER GUIDE; Surgeon: Paul Kim MD; Location: [facility] OR; Service: Urology CYSTO DIRECT VISION INTERNAL URETHROTOMY N/A 08/16/2020 Procedure: CYSTOSCOPY URETERAL DILATION POSSIBLE DIRECT VISION INTERNAL URETHROTOMY; Surgeon: Paul Kim MD; Location: [facility] OR; Service: Urology FOOT SURGERY Right 2nd toe partial amputation INCISION AND DRAINAGE FOOT AND ANKLE Left 07/29/2020 Procedure: LEFT FOOT ULCER INCISION AND DRAINAGE LEFT FOOT BONE DEBRIDEMENT W/ BIOPSY; Surgeon: Jet Calvillo DPM; Location: [facility] OR; Service: Podiatry INCISION AND DRAINAGE FOOT AND ANKLE Left 08/05/2020 Procedure: LEFT FOOT ULCER DEBRIDEMENT; Surgeon: Jet Calvillo DPM; Location: [facility] OR; Service: Podiatry Family History Family History Problem Relation Age of Onset Diabetes Father Surgical complications Neg Hx Anesthesia problems Neg Hx Heart disease Neg Hx Clotting disorder Neg Hx Deep vein thrombosis Neg Hx Pulmonary embolism Neg Hx Social History Social History Tobacco Use Smoking Status Never Smoker Smokeless Tobacco Never Used Social History Substance and Sexual Activity Alcohol Use No Social History Substance and Sexual Activity Drug Use No Allergy Information I have reviewed the patient's allergies. Dilantin infatabs [phenytoin] Home Medications Home medications were reviewed. Review Of Systems Constitutional: Denies fever, chills, weight loss Eyes: Denies vision changes ENT: Denies hearing loss, nasal congestion, sore throat CV: Denies chest pain, palpitations, peripheral edema Respiratory: Denies shortness of breath, cough, wheezing GI: Denies abdominal pain, nausea, vomiting, diarrhea, constipation : Denies dysuria, frequent urination MSK: Denies joint pain or swelling, restricted motion Integumentary: Denies skin changes, pruritis Neurological: Denies dizziness, headache, + numbness or tingling Psychiatric: Denies depression, anxiety, sleep disturbance Endocrine: Denies heat or cold intolerance, excessive thirst Hematological: Denies abnormal bleeding or bruising Allergy/Immunological: Denies hives, swelling of lips or tongue Physical Examination BP (!) 151/64 Pulse 79 Temp 97.7 F (36.5 C) Resp 16 Wt 81.6 kg (180 lb) SpO2 96% BMI 27.37 kg/m General Appearance: alert; chronically ill appearing; in no acute distress HEENT: Head- normocephalic; Eyes- EOMI, sclera anicteric; Ears- hearing intact; Nose- no nasal discharge; Throat- mucous membranes moist Cardiovascular: regular rate and rhythm; normal S1, S2; no murmurs, rubs, clicks or gallops; no peripheral edema Respiratory: lungs clear to auscultation; without wheezes, rales or rhonchi; on nasal cannula 1L since admission, patient desating while sleeping to 89%, known LORENA Abdomen: soft, non-tender, non-distended; positive bowel sounds Neurological: oriented x 3; normal speech; no focal findings or movement disorder noted Musculoskeletal: no significant deformity or tenderness to palpation Skin: normal coloration; no obvious rashes, lesions or skin breakdown Psych: normal mood and affect Laboratory and Additional Data Reviewed Laboratory 01/09/22 4:08 PM Radiology 01/09/22 4:08 PM Cardiology 01/09/22 4:08 PM Medications 01/09/22 4:08 PM Transcriptions 01/09/22 4:08 PM * Franca Earl CNP - 01/09/2022 3:03 PM EST HMS HISTORY AND PHYSICAL Patient Name: Mikayla Pappas : 1960 MR #: [id number] Admit Date: 01/09/2022 Physicians: Greyson Dominguez MD (Family); Jet Calvillo DPM (Referring) Mikayla Pappas is a 61 y.o. male patient of Greyson Dominguez MD with history of PVD, Diabetestype II, CVA, depression, LORENA, R BKA, anemia, HTN, HLD, urinary retention presented with worsening left diabetic foot ulcer. Chronic Diabetic ulcer on left foot H/o R BKA PVD P/w worsening foot ulcer with necrosis on left foot Wound present since 08/2020 HDS, afebrile, WBC 11k CRP/sed rate 28.4, 74, lactic pending Blood cultures collected and pending Left foot Xrays with shallow soft tissue ulceration of the heel with forefoot soft tissue swelling.No radiographic evidence of osteomyelitis of the calcaneus. Chronic appearing erosion along the lateral aspect of the 2nd metatarsal head new from 07/26/2020. If there is a nearby soft tissue ulceration osteomyelitis is not excluded Left foot MRI pending Continue ancef, flagy and vanc started in ED Wound care consult PT/OT Podiatry consulted by ED, aware of patient Uncontrolled IDDM2 with Hyperglycemia Chronic diabetic neuropathy BS 199 on admit, A1C pending on Janumet, Glipizide and Lantus, hold orals Unclear compliance at home Continue home gabapentin SSI, diabetic diet, home lantus BAILEE Creat 1.3, BUN 48, GFR 59 Baseline creat ~1, GFR ~70, likely related to decreased intake Will hold lasix for now, monitor daily labs Chronic Normocytic Anemia Baseline Hgb ~10, Hgb 8.4 on admission No active s/sx of bleeding, HDS Will check iron studies and B12/folate Monitor daily CBC, transfuse for Hgb <7 Chronic Urinary Retention Chronic todd catheter Todd placed in Dr. Mercedes's office, follows there Continue Todd Continue home oxybutynin Urology f/u OP encouraged H/o CVA Generalized Weakness 10/2020, treated at [facility] Residual bilateral weakness, no deficits Pt resides at [facility] for rehab PT/OT consult Continue asa and lipitor Essential HTN Normotensive on arrival Per ECF med list pt only on lasix, previously on norvasc 10, losartan 25, monitor for need to restart medications. Consider substituting losartan for lasix on discharge. HLD Continue home statin Depression Continue home cymbalta Mood appears stable LORENA Continue CPAP at bedtime and with naps Pt desats to ~89% while sleeping Admitted From: SNF/ECF Medication Reconciliation: Verified Code Status: Full Code Quality Measures DVT Prophylaxis: SCDs and Transition to pharmacologic management carlos pending podiatry recs Todd Catheter: present Admission does not require smart-phrase Chief Complaint Worsening left diabetic foot ulcer History of Present Illness Mikayla Pappas is a 61 y.o. male patient of Greyson Dominguez MD with history of PVD, Diabetes type II, CVA, depression, LORENA, R BKA, anemia, HTN, HLD, urinary retention presented with worsening left diabetic foot ulcer. Patient states that he feels at his baseline, not having increased pain but states that his ECF told him that his left foot wound is getting worse.His np suggested he come to the ED for evaluation. He currently has no complaints other than being a little tired and chronic numbness/tingling of extremities. He denies CP, SOB, fevers/chills, N/V/D, pain. 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 f/u Past Surgical History Past Surgical History: Procedure Laterality Date AMPUTATION FOOT Left 08/05/2020 Procedure: POSSIBLE AMPUTATION; Surgeon: Jet Calvillo DPM; Location: [facility] OR; Service: Podiatry AMPUTATION TOE(S) Right 08/03/2016 Procedure: RIGHT 3RD DIGIT AMPUTATION ; Surgeon: Jet Calvillo DPM; Location: [facility] OR; Service: CARDIAC CATHETERIZATION ablation for WPW CATHETER INSERTION SUPRAPUBIC N/A 08/16/2020 Procedure: CATHETER PLACEMENT OVER GUIDE; Surgeon: Paul Kim MD; Location: [facility] OR; Service: Urology CYSTO DIRECT VISION INTERNAL URETHROTOMY N/A 08/16/2020 Procedure: CYSTOSCOPY URETERAL DILATION POSSIBLE DIRECT VISION INTERNAL URETHROTOMY; Surgeon: Paul Kim MD; [place] [facility] [place]; Service: Urology FOOT SURGERY Right 2nd toe partial amputation INCISION AND DRAINAGE FOOT AND ANKLE Left 07/29/2020 Procedure: LEFT FOOT ULCER INCISION AND DRAINAGE LEFT FOOT BONE DEBRIDEMENT W/ BIOPSY; Surgeon: Jet Calvillo DPM; Location: [facility] OR; Service: Podiatry INCISION AND DRAINAGE FOOT AND ANKLE Left 08/05/2020 Procedure: LEFT FOOT ULCER DEBRIDEMENT; Surgeon: Jet Calvillo DPM; Location: [facility] OR; Service: Podiatry Family History Family History Problem Relation Age of Onset Diabetes Father Surgical complications Neg Hx Anesthesia problems Neg Hx Heart disease Neg Hx Clotting disorder Neg Hx Deep vein thrombosis Neg Hx Pulmonary embolism Neg Hx Social History Social History Tobacco Use Smoking Status Never Smoker Smokeless Tobacco Never Used Social History Substance and Sexual Activity Alcohol Use No Social History Substance and Sexual Activity Drug Use No Allergy Information I have reviewed the patient's allergies. Dilantin infatabs [phenytoin] Home Medications Home medications were reviewed. Review Of Systems Constitutional: Denies fever, chills, weight loss Eyes: Denies vision changes ENT: Denies hearing loss, nasal congestion, sore throat CV: Denies chest pain, palpitations, peripheral edema Respiratory: Denies shortness of breath, cough, wheezing GI: Denies abdominal pain, nausea, vomiting, diarrhea, constipation : Denies dysuria, frequent urination MSK: Denies joint pain or swelling, restricted motion Integumentary: Denies skin changes, pruritis Neurological: Denies dizziness, headache, + numbness or tingling Psychiatric: Denies depression, anxiety, sleep disturbance Endocrine: Denies heat or cold intolerance, excessive thirst Hematological: Denies abnormal bleeding or bruising Allergy/Immunological: Denies hives, swelling of lips or tongue Physical Examination BP (!) 151/64 Pulse 79 Temp 97.7 F (36.5 C) Resp 16 Wt 81.6 kg (180 lb) SpO2 96% BMI 27.37 kg/m General Appearance: alert; chronically ill appearing; in no acute distress HEENT: Head- normocephalic; Eyes- EOMI, sclera anicteric; Ears- hearing intact; Nose- no nasal discharge; Throat- mucous membranes moist Cardiovascular: regular rate and rhythm; normal S1, S2; no murmurs, rubs, clicks or gallops; no peripheral edema Respiratory: lungs clear to auscultation; without wheezes, rales or rhonchi; on nasal cannula 1L since admission, patient desating while sleeping to 89%, known LORENA Abdomen: soft, non-tender, non-distended; positive bowel sounds Neurological: oriented x 3; normal speech; no focal findings or movement disorder noted Musculoskeletal: no significant deformity or tenderness to palpation Skin: normal coloration; no obvious rashes, lesions or skin breakdown Psych: normal mood and affect Laboratory and Additional Data Reviewed Laboratory 01/09/22 4:08 PM Radiology 01/09/22 4:08 PM Cardiology 01/09/22 4:08 PM Medications 01/09/22 4:08 PM Transcriptions 01/09/22 4:08 PM Associated attestation - Riana Fairbanks MD - 01/09/2022 9:57 PM EST HMS NOTE ADDENDUM I saw and examined the patient independently of the MANUEL . Labs, medications, imaging and other studies were reviewed. I agree with history, physical examination findings, medical decision making and the assessment/plan with additions as noted in my documentation below. Assessment/Plan Left Diabetic Foot ulcer, Acute on Chronic Presenting w/worsening left foot wound Afebrile, HDS; no SIRS or sepsis on admission ESR/CRP mildly elevated, WBC 11K XR L foot w/o OM Podiatry consulted - no plan for OR MR, non-invasive studies pending Ancef/Flagyl/Vanc started in ED, continued on admission PT/OT consulted Multimodal pain management T2DM, insulin dependent Diabetic Peripheral Neuropathy Chronic, w/hyperglycemia on admission, not in DKA BG 199, A1c pending Home oral agents held Lantus continued Accuchecks and SSI ordered Monitor and titrate PRN BAILEE Likely pre-renal in the setting of diuretic use Cr 1.3 on admission, baseline WNL Lasix held on amdission Encouraged PO hydration Monitor UOP Daily RFP Limit nephrotoxins and PICC as able Urinary Retention Chronic, managed w/chronic indwelling todd Last changed 1wk ago at [facility] Maintain todd F/U OP documented in this [id number] Consult note* John Sousa, OT - 01/11/2022 10:27 AM EST Occupational Therapy OCCUPATIONAL THERAPY EVALUATION AND TREATMENT NOTE OCCUPATIONAL THERAPY EVALUATION Skilled Therapy Needs After Discharge Anticipate Resolution of Current Assessment Limitations Including: Mechanical Barriers, Social Support Are Skilled Therapy Services Needed After Discharge: Yes Intensity of Skilled Therapy: Up to 5 days per week Anticipated Duration of Skilled Therapy: Duration 10 - 30 days DME Recommendation: (continue to assess) Rehab Potential: Good, For goals Outcomes Measures Prior Function Daily Activity Raw Score: 24 Prior Function Daily Activity % Impaired: 0% AM-PAC Daily Activity Raw Score: 16 AM-PAC Daily Activity % Impaired: 53.32% Occupational Therapy Assessment The patient's current functional participation deficits are functional mobility, LE dressing, UE dressing, bathing, toileting. This reduced independence will limit their life roles of premorbid levelindividual, family member. The patient's co morbidities do significantly affect patient performancein the above activities and roles. The performance deficits are a result of musculoskeletal impairment(s) in generalized debility, global systems, lower extremity, bilateral including strength, acitvity tolerance, pain, safety, insight, problem solving, and knowledge deficit. The patient's limitations of family / caregiver support is a barrier for return to prior level of function. The patient's awareness of own capacity and performance is a barrier to return to prior level of function. During the assessment, significant modification of task was required and multiple treatment optionswere identified in the plan of care. This consultation required extensive review of the medical and therapy history. Activity Tolerance Activity Tolerance: Tolerates 20 - 30 min activity with multiple rests Therapy Precautions Orthotic Devices: Yes Lower Extremity: Cast / Postop Shoe Weight Bearing Status: X RLE: (Hx of BKA) LLE: Non Wt bearing Cognition Overall Cognitive Status: Within Functional Limits (grossly wfl) Arousal/Alertness: Delayed responses to stimuli Orientation Level: Oriented X4 Executive functioning: Insight, Planning / Organizing, Min impairment Safety Judgment: Decreased awareness of need for assistance, Decreased awareness of need for safety Problem Solving: Assistance required to identify errors made, Assistance required to generate solutions, Assistance required to implement solutions Attention: Attends to quiet environment Hearing Status: WFL Social Interaction: Cooperative, Appropriate Comments: pt able to follow 100% of 1-2 step commands ADL Grooming: Supervision, Set-up LE Dressing: Maximal assist Bed Mobility Supine to Sit: Supervision, Stand by assist Sit to Supine: Supervision, Stand by assist Pinball Machine Repairer: bedrails, bed positioning mechanics Functional Transfers Lateral Transfers: Contact guard assist (EOB transfer to drop arm [facility]) Toilet Transfers: Contact guard assist, to/from drop arm commode Home Living Obtained Home Living and PLOF info from: Patient Lives With: Alone Type of Home: termite control representative care facility Mobility Equipment: Wheelchair - manual Additional Objective Details - Home Living: Patient in LTC secondary to amputation and uncontrolleddiabetes. Patient independent with stand pivot transfers prior to ulcer worsening. Patient had beenperforming lateral transfers in LTC without slideboard prior to NWB precautions. Prior Level of Function Receives Help From: Facility staff Level of [place] - Transfers/Ambulation/Mobility: Independent with functional transfers, Independent at wheelchair level in home, Independent at wheelchair level in community Level of [place] - ADLs: Independent Level of [place] - Homemaking: Needs assistance Driving: Patient does not drive OCCUPATIONAL THERAPY TREATMENT NOTE Total Treatment Time (Total Session Time): 48 Minutes Timed Code Treatment Minutes: 23 Minutes Cognitive Skills Development Skilled Intervention Provided: multi-modal cues, environmental setup/modification, task breakdown/simplification, patient education For: improving new learning, compensatory techniques, preparing for self-care tasks Resulting In: improved activity tolerance, increased safety awareness, improved problem solving Self-Care / ADL Grooming - Skilled Intervention Provided: verbal cues, environmental setup/modification, monitored patient's safety and tolerance Grooming - For: UE management, efficient movement, task simplification/modification Grooming - Resulting In: improved overall self care, improved participation in ADL task, improved functional independence, improved activity tolerance, increased upright tolerance for functional tasks LE Dressing - Skilled Intervention Provided: verbal cues, environmental setup/modification, facilitation, monitored patient's safety & tolerance LE Dressing - For: LE management, UE management, efficient movement, task simplification/modification, sequencing of movement, compensatory strategies LE Dressing - Resulting In: improved overall self care, improved participation in ADL task, improved safety, improved activity tolerance, increased upright tolerance for functional tasks Home Management / IADL Therapeutic Activities Bed Mobility Skilled Intervention Provided: verbal cues, environmental setup/modification, monitoring patient response with activity, monitoring patient response with positional changes For: LE management, UE management, efficient movement, safety during functional task(s), safe use of bedrails and/or equipment, sequencing of movement Resulting In: improved safety, improved functional independence, improved activity tolerance, increased upright tolerance for functional tasks, increased participation in mobility task(s) Functional Transfers Skilled Intervention Provided: verbal cues, environmental setup/modification, monitoring patient response with positional changes, monitoring patient response with activity, patient education For: UE management, LE management, increased participation in mobility task, sequencing of movement, safety during functional task(s) Resulting In: improved safety, increased initiation/participation in mobility task(s), improved functional independence, improved activity tolerance, increased upright tolerance for functional task(s) Neuromuscular Reeducation Sitting Balance - Static: Independent Sitting Balance - Dynamic: Supervision, Stand by assist Additional Treatment Details Educated pt on general safety awareness and LLE NWB precs, Min cues throughout session for maintaining precs Past Medical History: Diagnosis Date Diabetes mellitus, type 2 (HCC) no AC at home, on insulin for 3 years Diabetic neuropathy (HCC) GERD (gastroesophageal reflux disease) no current meds History of cardiac cath 1990 for RFA due to WPW History of depression no current meds Hyperlipidemia Hypertension Obesity Open wound right 3rd toe Seizures (HCC) questionable when a child, no recurrence Sleep apnea, obstructive partial compliance with CPAP 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, no current bobbin presser f/u Past Surgical History: Procedure Laterality Date AMPUTATION FOOT Left 08/05/2020 Procedure: POSSIBLE AMPUTATION; Surgeon: Jet Calvillo DPM; Location: [facility] OR; Service: Podiatry AMPUTATION TOE(S) Right 08/03/2016 Procedure: RIGHT 3RD DIGIT AMPUTATION ; Surgeon: Jet Calvillo DPM; Location: [facility] OR; Service: CARDIAC CATHETERIZATION ablation for WPW CATHETER INSERTION SUPRAPUBIC N/A 08/16/2020 Procedure: CATHETER PLACEMENT OVER GUIDE; Surgeon: Paul Kim MD; Location: [facility] OR; Service: Urology CYSTO DIRECT VISION INTERNAL URETHROTOMY N/A 08/16/2020 Procedure: CYSTOSCOPY URETERAL DILATION POSSIBLE DIRECT VISION INTERNAL URETHROTOMY; Surgeon: Paul Kim MD; [place] [facility] [place]; Service: Urology FOOT SURGERY Right 2nd toe partial amputation INCISION AND DRAINAGE FOOT AND ANKLE Left 07/29/2020 Procedure: LEFT FOOT ULCER INCISION AND DRAINAGE LEFT FOOT BONE DEBRIDEMENT W/ BIOPSY; Surgeon: Jet Calvillo DPM; Location: [facility] OR; Service: Podiatry INCISION AND DRAINAGE FOOT AND ANKLE Left 08/05/2020 Procedure: LEFT FOOT ULCER DEBRIDEMENT; Surgeon: Jet Calvillo DPM; Location: [facility] OR; Service: Podiatry For complete objective data, detailed plan of care and patient education refer to: OT Evaluation flowsheet, OT Evaluation and Treatment flowsheet, OT Treatment flowsheet, patient Plan of Care, Plan of Care progress note, and Patient Education. This note stands as the current Discharge Summary upon patient discharge from the hospital or completion of Occupational Therapy Plan of Care. [id number] Note* Plan of Care - Cher Pennington RN - 01/11/2022 6:40 AM EST Problem: Pressure Ulcer - Risk of Goal: Absence of pressure ulcer Outcome: Partially Met Problem: Pain Goal: Manage chronic pain Outcome: Partially Met Goal: Reduced pain sensation Outcome: Partially Met Goal: Achievement of comfort function goal Outcome: Partially Met Problem: Falls, Risk of Goal: Absence of falls Outcome: Partially Met [id number] Consult note* Jojo Waterman - 01/10/2022 4:32 PM EST Physical Therapy PHYSICAL THERAPY EVALUATION and TREATMENT NOTE PHYSICAL THERAPY EVALUATION Skilled Therapy Needs After Discharge Anticipate Resolution of Current Assessment Limitations Including: Mechanical Barriers Are Skilled Therapy Services Needed After Discharge: Yes Intensity of Skilled Therapy: Up to 5 days per week Anticipated Duration of Skilled Therapy: Duration 10 - 30 days DME Recommendation: Slide board DME Rationale: Patient's condition creates an increased risk of safety hazard without recommended equipment Rehab Potential: Good Outcomes Measures Prior Function - Basic Mobility Raw Score: 18 Points Prior Function - Basic Mobility % Impaired: 40.47% AM-PAC Basic Mobility Raw Score: 12 Points AM-PAC Basic Mobility % Impaired: 61.94% Physical Therapy Assessment History: The following factors influence the patient's participation in the PT plan of care: Personal Factors: Body Habitus The following co-morbidities (from this admission or prior) influence the patient's participation in this plan of care: See PMH; pt admitted for diabetic heel ulcer Number of History elements affecting this patient's PT plan of care: 1 to 2 Examination of Body Systems: The patient presents with: Musculoskeletal impairments: Strength Neurologic Impairments: Sensation Vascular Impairments: Amputation, Foot / Leg ulcer Integumentary Impairments: Active Wound. These impairments result in limitations of Functional Transfers, Safety Awareness, Safety, ActivityTolerance. These impairments result in restrictions of Household mobility, Community mobility. Number of Body Systems elements affecting this patient's PT plan of care: 3 or more. Clinical Presentation: The patient's clinical presentation for this PT evaluation is evolving with changing characteristics as evidenced by current PT documentation. Activity Tolerance Activity Tolerance: Tolerates 20 - 30 min activity with multiple rests Therapy Precautions Orthotic Devices: Yes Lower Extremity: Cast / Postop Shoe, Left Weight Bearing Status: X LLE: Non Wt bearing General Rehab Precautions: Fall risk Balance Assessment Sitting Balance - Static: Supervision Sitting Balance - Dynamic: Stand by assist Bed Mobility Rolling: Supervision, Head of bed elevated Supine to Sit: Stand by assist, Head of bed elevated Sit to Supine: Stand by assist, Head of bed flat Pinball Machine Repairer: bedrails Transfers Lateral Transfers: Contact guard assist (Lateral transfer from bed in raised position into W/C) Pinball Machine Repairer: BUE, wheelchair Additional Transfer Trial 2: Yes Lateral Transfers Trial 2: Minimal assist (Lateral transfer from W/C to bed) Pinball Machine Repairer Trial 2: BUE, wheelchair Gait/Locomotion Wheelchair Mobility: Independent Wheelchair distance: 300 Feet Wheelchair Environment/Terrain: open/community environment, multiple distractions Home Living Obtained Home Living and PLOF info from: Patient Lives With: Alone Type of Home: group home care facility Mobility Equipment: Wheelchair - manual Additional Objective Details - Home Living: Patient in LTC secondary to amputation and uncontrolleddiabetes. Patient independent with stand pivot transfers prior to ulcer worsening. Patient had beenperforming lateral transfers in LTC without slideboard prior to NWB precautions. Prior Level of Function Receives Help From: Facility staff Level of [place] - Transfers/Ambulation/Mobility: Independent with functional transfers, Independent at wheelchair level in home Level of [place] - ADLs: Independent Level of [place] - Homemaking: Independent PHYSICAL THERAPY TREATMENT NOTE Total Treatment Time (Total Session Time): 28 Minutes Timed Code Treatment Minutes: 8 Minutes Neuromuscular Reeducation Sitting Balance Treatment: weight shifting right, weight shifting left Skilled Intervention Provided: verbal cues, tactile cues, facilitation For: UE positioning, efficient movement, sequencing of movement, weight bearing through affected LE, weight shifting Resulting in: improved initiation, improved activity tolerance Therapeutic Activities Bed Mobility Skilled Intervention Provided: verbal cues, facilitation Transfers Skilled Intervention Provided: verbal cues, tactile cues, facilitation, provided step by step instructions For: LE management, UE positioning, efficient movement, necessary precautions, safe use of AD and/or equipment, sequencing of movement Resulting in: improved activity tolerance, improved performance Additional Treatment Details Patient drowsy and with conctant verbal cues in order to maintain conciousness at the beginning of the session. However, after initiating functional movement, pt able to maintain awareness without the need for ceing. Patient with difficulties maintianing NWB on LLE during functional transfers secondary to limited UE strength. Pt to trial lateral transfer with slideboard next session. Past Medical History: Diagnosis Date Diabetes mellitus, type 2 (HCC) no AC at home, on insulin for 3 years Diabetic neuropathy (HCC) GERD (gastroesophageal reflux disease) no current meds History of cardiac cath 1990 for RFA due to WPW History of depression no current meds Hyperlipidemia Hypertension Obesity Open wound right 3rd toe Seizures (HCC) questionable when a child, no recurrence Sleep apnea, obstructive partial compliance with CPAP WPW (Sqplh-Zqsakkpmw-Fkegg syndrome) 1990 s/p RFA in 1990, no current bobbin presser f/u Past Surgical History: Procedure Laterality Date AMPUTATION FOOT Left 08/05/2020 Procedure: POSSIBLE AMPUTATION; Surgeon: Jet Calvillo DPM; Location: [facility] OR; Service: Podiatry AMPUTATION TOE(S) Right 08/03/2016 Procedure: RIGHT 3RD DIGIT AMPUTATION ; Surgeon: Jet Calvillo DPM; Location: [facility] OR; Service: CARDIAC CATHETERIZATION ablation for WPW CATHETER INSERTION SUPRAPUBIC N/A 08/16/2020 Procedure: CATHETER PLACEMENT OVER GUIDE; Surgeon: Paul Kim MD; Location: [facility] OR; Service: Urology CYSTO DIRECT VISION INTERNAL URETHROTOMY N/A 08/16/2020 Procedure: CYSTOSCOPY URETERAL DILATION POSSIBLE DIRECT VISION INTERNAL URETHROTOMY; Surgeon: Paul Kim MD; Location: [facility] OR; Service: Urology FOOT SURGERY Right 2nd toe partial amputation INCISION AND DRAINAGE FOOT AND ANKLE Left 07/29/2020 Procedure: LEFT FOOT ULCER INCISION AND DRAINAGE LEFT FOOT BONE DEBRIDEMENT W/ BIOPSY; Surgeon: Jet Calvillo DPM; Location: [facility] OR; Service: Podiatry INCISION AND DRAINAGE FOOT AND ANKLE Left 08/05/2020 Procedure: LEFT FOOT ULCER DEBRIDEMENT; Surgeon: Jet Calvillo DPM; Location: [facility] OR; Service: Podiatry For complete objective data, detailed plan of care and patient education refer to: PT Evaluation flowsheet, PT Evaluation and Treatment flowsheet, PT Treatment flowsheet, patient Plan of Care, Plan of Care progress note, and Patient Education. This note stands as the current Discharge Summary upon patient discharge from the hospital or completion of Physical Therapy Plan. [id number] Consult note* Nicolle Harden RN - 01/10/2022 2:59 PM EST Associated Order(s): IP CONSULT TO ENTEROSTOMAL THERAPY; IP CONSULT TO ENTEROSTOMAL THERAPY Discussed with patient's RN that podiatry is following the left foot, therefore, wound care will sign off at this time. Orders per podiatry on the chart. Please consult wound care for any future needs. [id number] Note* Sign Off Note - Christine Cunningham PA-C - 01/10/2022 2:58 PM EST Vascular Sign-Off Conditions treated: PVD Adequate perfusion, peripheral pulses palpable Surgeries/interventions: none Discharge Medications: Continue ASA and statin Incision / Wound care instructions: No dressing needed Follow up appointment: Follow up with Dr. Cosby in 6 wks. Follow up imaging: None Christine Cunningham PA-C 01/10/22 [id number] Consult note* Christine Cunningham PA-C - 01/10/2022 11:15 AM EST Associated Order(s): IP CONSULT TO VASCULAR SURGERY Images from the original note were not included. [facility] Vascular Surgery Consultation Note Chief Complaint / Reason for Consultation PVD History of Present Illness Patient is a 61 y.o. male with PMHx PVD, Diabetes type II, CVA, depression, LORENA, R BKA, anemia, HTN, HLD, urinary retention presents with left DFU to left sub 5th MT head and dry eschar to heel. Podiatry planing operative management. He states this wound present x few month. He also had R BKA 05/2021. States that he was using a prosthetic and ambulating until the wound re opened; has been in wheelchair since that time. Patient with no h/o [place]. Did have CVA 2020. No prior vascular intervention Patient is a non smoker Patient on ASA and statin Vascular studies in 2019 with no areas of stenosis; now with L AT stenosis. DP pulse palpable Review of Systems Denies fevers, chills, chest pain, shortness of breath, nausea, vomiting, wt changes, vision problems, blindness, hearing problems, facial droop, slurred speech, extremity weakness, extremity numbness, dysuria, or rashes. All other systems are reviewed and are negative No residual deficits from CVA Past Medical History: Diagnosis Date Diabetes mellitus, type 2 (HCC) no AC at home, on insulin for 3 years Diabetic neuropathy (HCC) GERD (gastroesophageal reflux disease) no current meds History of cardiac cath 1990 for RFA due to WPW History of depression no current meds Hyperlipidemia Hypertension Obesity Open wound right 3rd toe Seizures (HCC) questionable when a child, no recurrence Sleep apnea, obstructive partial compliance with CPAP WPW (Rgihs-Lmwkablkk-Aigbt syndrome) 1990 s/p RFA in 1990, no current bobbin presser f/u Past Surgical History: Procedure Laterality Date AMPUTATION FOOT Left 08/05/2020 Procedure: POSSIBLE AMPUTATION; Surgeon: Jet Calvlilo DPM; Location: [facility] OR; Service: Podiatry AMPUTATION TOE(S) Right 08/03/2016 Procedure: RIGHT 3RD DIGIT AMPUTATION ; Surgeon: Jet Calvillo DPM; Location: [facility] OR; Service: CARDIAC CATHETERIZATION ablation for WPW CATHETER INSERTION SUPRAPUBIC N/A 08/16/2020 Procedure: CATHETER PLACEMENT OVER GUIDE; Surgeon: Paul Kim MD; Location: [facility] OR; Service: Urology CYSTO DIRECT VISION INTERNAL URETHROTOMY N/A 08/16/2020 Procedure: CYSTOSCOPY URETERAL DILATION POSSIBLE DIRECT VISION INTERNAL URETHROTOMY; Surgeon: Paul Kim MD; [place] [facility] [facility] [place]; Service: Urology FOOT SURGERY Right 2nd toe partial amputation INCISION AND DRAINAGE FOOT AND ANKLE Left 07/29/2020 Procedure: LEFT FOOT ULCER INCISION AND DRAINAGE LEFT FOOT BONE DEBRIDEMENT W/ BIOPSY; Surgeon: Jet Calvillo DPM; Location: [facility] OR; Service: Podiatry INCISION AND DRAINAGE FOOT AND ANKLE Left 08/05/2020 Procedure: LEFT FOOT ULCER DEBRIDEMENT; Surgeon: Jet Calvillo DPM; Location: [facility] OR; Service: Podiatry Home Medication Instructions Prior to Surgery TAKE these medications Take last dose on Take the morning of surgery Comment(s) acetaminophen 325 MG tablet Take 650 mg by mouth every 6 (six) hours as needed for pain . Commonly known as: TYLENOL alcohol swabs Padm Check your sugars up to 4 times a day . amLODIPine 10 MG tablet Take 1 (one) tablet (10 mg total) by mouth daily Start: 08/07/20. Commonly known as: NORVASC ascorbic acid (vitamin C) 500 MG tablet Take 500 mg by mouth daily . Commonly known as: VITAMIN C aspirin 81 MG EC tablet Take 81 mg by mouth daily . xtxijos-ticdaomifmtqe-qrleqqnz 250-250-65 mg per tablet Take 1 tablet by mouth every 6 (six) hours as needed for pain. Commonly known as: EXCEDRIN MIGRAINE atorvastatin 80 MG tablet Take 80 mg by mouth daily . Commonly known as: LIPITOR * Lantus Solostar U-100 Insulin 100 unit/mL (3 mL) Inpn Generic drug: insulin glargine Inject 22 Units under the skin nightly . * Basaglar KwikPen U-100 Insulin 100 unit/mL (3 mL) Inpn Generic drug: insulin glargine Inject 20 (twenty) Units under the skin nightly . bisacodyL 10 mg/30 mL Enem Insert 10 mg into the rectum once as needed . Commonly known as: FLEET blood sugar diagnostic strips Check your sugars up to 4 times a day . blood-glucose meter Misc Check your sugars up to 4 times a day . collagenase ointment Apply 1 application topically at bedtime Left foot . Commonly known as: SANTYL cyanocobalamin 500 MCG tablet Take 1 tablet by mouth daily . Commonly known as: B-12 diclofenac sodium 1 % Gel Apply topically 4 (four) times a day . docusate sodium 100 MG capsule Take 100 mg by mouth 2 (two) times a day . Commonly known as: COLACE doxazosin 4 MG tablet Take 4 mg by mouth daily . Commonly known as: CARDURA * DULoxetine 30 mg Cdrs Take 30 mg by mouth at bedtime Along with 60 mg to make 90mg at bedtime . * DULoxetine 60 MG capsule Take 60 mg by mouth at bedtime Along with 30 mg to make 90mg at bedtime . Commonly known as: CYMBALTA ergocalciferol 1,250 mcg (50,000 unit) capsule Take 50,000 Units by mouth once a week . Commonly known as: ERGOCALCIFEROL furosemide 20 MG tablet Take 20 mg by mouth 2 (two) times a day . Commonly known as: LASIX * gabapentin 300 MG capsule Take 300 mg by mouth at bedtime . Commonly known as: NEURONTIN * gabapentin 100 MG capsule Take 100 mg by mouth daily . Commonly known as: NEURONTIN * gabapentin 300 MG capsule Take 1 (one) capsule (300 mg total) by mouth nightly (Days supply per fill: 30) . Commonly known as: NEURONTIN glipiZIDE 10 MG 24 hr tablet Take 10 mg by mouth daily . Commonly known as: GLUCOTROL XL guaiFENesin 600 mg 12 hr tablet Take 600 mg by mouth 2 (two) times a day as needed for congestion . Commonly known as: MUCINEX HYDROcodone-acetaminophen 5-325 mg per tablet Take 1 tablet by mouth every 6 (six) hours as needed for pain . Commonly known as: NORCO hydrocortisone 1 % cream Apply topically 2 (two) times a day . insulin lispro 100 unit/mL Inpn For blood sugar 141-180 give 2 units subcutaneoulsy, for 181-220 give 4 units, for 221-260 give 6 units, and for 261-300 give 8 units. . Commonly known as: HumaLOG KwikPen Insulin lancets [facility] Check your sugars up to 4 times a day . lidocaine 5 % patch Place 1 patch on the skin every 12 (twelve) hours Remove & Discard patch within 12 hours or as directed by MD- to back . Commonly known as: LIDODERM loperamide 2 mg tablet Take 2 mg by mouth 4 (four) times a day as needed for diarrhea Max 4 tablets in 24 hours . Commonly known as: IMODIUM A-D losartan 25 MG tablet Take 25 mg by mouth daily . Commonly known as: COZAAR magnesium hydroxide 400 mg/5 mL Susp Take 30 mL by mouth daily as needed . Commonly known as: MOM melatonin 5 mg Tab Take 5 mg by mouth at bedtime . ondansetron 4 MG disintegrating tablet Dissolve 4 mg on top of tongue every 6 (six) hours as needed for nausea . Commonly known as: ZOFRAN-ODT oxybutynin 10 MG 24 hr tablet Take 10 mg by mouth daily . Commonly known as: DITROPAN-XL pen needle, diabetic 32 gauge x 32 Ndle Change pen needles daily as needed up to 4 times. . polyethylene glycol 17 gram powder Take 17 g by mouth daily . Commonly known as: MIRALAX rosuvastatin 40 MG tablet Take 1 (one) tablet (40 mg total) by mouth every evening . Commonly known as: Crestor sitagliptan-metFORMIN 50-1,000 mg per tablet Take 1 tablet by mouth daily . Commonly known as: JANUMET sitagliptin 50 MG tablet Take 50 mg by mouth daily . Commonly known as: JANUVIA tiZANidine 2 MG tablet Take 2 mg by mouth 2 (two) times a day . Commonly known as: ZANAFLEX * This list has 7 medication(s) that are the same as other medications prescribed for you. Read thedirections carefully, and ask your doctor or other care provider to review them with you. Allergies Allergen Reactions Dilantin Infatabs [Phenytoin] Rash Social History Socioeconomic History Marital status: Tobacco Use Smoking status: Never Smoker Smokeless tobacco: Never Used Vaping Use Vaping Use: Never used Substance and Sexual Activity Alcohol use: No Drug use: No Family History Problem Relation Age of Onset Diabetes Father Surgical complications Neg Hx Anesthesia problems Neg Hx Heart disease Neg Hx Clotting disorder Neg Hx Deep vein thrombosis Neg Hx Pulmonary embolism Neg Hx - No family history of bleeding or clotting disorders Vital Signs Vitals: 01/09/22 2305 01/10/22 0044 01/10/22 0425 01/10/22 0827 BP: (!) 156/70 (!) 152/74 134/70 BP Location: Left arm Left arm Right arm Patient Position: Lying Lying Lying Pulse: 84 75 84 Resp: 18 18 18 16 Temp: 98.3 F (36.8 C) 97.9 F (36.6 C) 97.8 F (36.6 C) TempSrc: Oral Oral Oral SpO2: 95% 96% 95% Weight: Height: Physical Examination General: no apparent distress Psychiatric: affect appropriate HEENT: Atraumatic, sclera aninteric. Mucous membranes moist. Neurologic: face symmetric, speech clear, cognition clear, vision and hearing grossly intact. Neck: Supple; L carotid bruit appreciated Chest: clear to auscultation bilaterally Cardiac: Regular rate and rhythm Abdominal: soft, nontender Skin/integumentary: intact, no rashes. Extremities: warm and well perfused - bilateral upper extremity motorsensory intact - bilateral lower extremity motorsensory intact Vascular exam: R BKA healed L DP palpable. L DP, PT, jeannette Multiphasic on doppler L foot wound Labs Lab Results Component Value Date WBC 9.98 01/10/2022 HGB 8.0 (L) 01/10/2022 HCT 25.2 (L) 01/10/2022 MCV 89.0 01/10/2022 PLT 305 01/10/2022 Lab Results Component Value Date NA 140 01/10/2022 K 4.7 01/10/2022 CL 104 01/10/2022 PHOS 3.3 08/16/2020 BUN 40 (H) 01/10/2022 CREATININE 1.19 01/10/2022 CREATININE 1.2 10/17/2020 No results found for: GLU Lab Results Component Value Date CALCIUM 9.3 01/10/2022 PHOS 3.3 08/16/2020 Imaging: . Impression and plan: Pt is a 61 y.o. male with PVD and non healing L foot wound - Labs reviewed: Cr 1.19 (1.3 on admission. Baseline normal), Hgb 8 A1c 6.7 Lipid panel pending - Carotid US pending for L carotid bruit; h/o CVA 2020. States US was never completed Update:1-49% b/l - L AT stenosis; DP however palpable. No stenosis on last imaging 2019 - Continue ASA and statin - No intervention required for PVD. Adequate perfusion. Will f/u 6 wks. Will monitor carotids going forward - Patient to be discussed with Dr. Cosby, final plan per Dr. Harjeet Cunningham PA-C 01/10/22 Associated attestation - Fatmata Cosby MD - 01/10/2022 3:41 PM EST I performed a history and physical examination, reviewed pertinent clinical data, including laboratory studies and imaging studies and discussed with the physician assistant finance director the management of this patient for evaluation of perfusion in the setting of left foot infection I agree with the findings and assessments noted above. Additionally: Patient with history of right below-knee amputation for infection last year Now with left foot infection. He has no history of arterial inventions Exam he has open wounds in the heel and plantar aspect of his left foot. He has easily palpable DP pulse and a multiphasic PT signal His duplex does show potential stenosis in the AT but other than that normal perfusion to the left lower extremity Plan: -I would recommend no intervention from a vascular standpoint. He should have adequate perfusion toheal what ever intervention podiatry needs to do -I did speak to the patient that if he does develop worse infection he may need a below-knee amputation on his side -He can follow-up with me in 6 weeks for check of his wound -We did get a carotid duplex because of his history of stroke and a bruit on his left side that showed no significant carotid stenosis bilaterally The note was dictated using [employer] dictation system. The voice recognition software is inherently subject to errors including those of syntax and sound- alike substitutions which may escape proofreading. In such instances, original meaning may be extrapolated by contextual derivation. Fatmata Cosby MD, [facility] Vascular and Endovascular Surgeon [facility] Pager: [phone] [facility] Work Phone: [phone] Consult note* Jada Lewis RN - 01/10/2022 10:53 AM ESTAssociated Order(s): IP CONSULT TO CARE MANAGEMENT Care Management Consult Assessment Patient Name: Mikayla Pappas Identified Concern/Reason for Consult: Discharge needs, transport return to LT Assessment: Living Arrangements: Facility Support Systems: Family members, Friends/neighbors Type of Residence: halfway Prior to Admission Home Care Services: No Current Home Equipment: Wheel chair, Wheeled walker, Other (Comment) (prosthetic rt leg) Additional Considerations: Patient preferred discharge location - Home- LTCF [facility] Medication affordability/compliance concerns - No, [employer] Community support providers - N/A Linked with a primary care provider to support discharge needs - Yes, Greyson Dominguez MD [phone] Other Needs to Support Discharge - N/A Working Discharge Plan: D/C 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 Per podiatry note possible OR. CM cont to follow forneeds. Pt to return when medically ready, CM to follow to set up transport. [id number] Note* Plan of Care - Cher Pennington RN - 01/10/2022 4:54 AM EST Problem: Pressure Ulcer - Risk of Goal: Absence of pressure ulcer Outcome: Partially Met Problem: Pain Goal: Manage chronic pain Outcome: Partially Met Goal: Reduced pain sensation Outcome: Partially Met Goal: Achievement of comfort function goal Outcome: Partially Met [id number] Note* Plan of Care - Yuliana Manzano RN - 01/09/2022 6:31 PM EST Pt oriented to unit. Pt denied pain. [id number] Note* Quick Note - Dena Razo RN - 01/09/2022 6:12 PM EST Pt is placed on Diabetic diet 75 gram now, and will be NPO at midnight [place] [facility] [id number] Note* Quick Note - Yuliana Manzano RN - 01/09/2022 6:06 PM EST Patient oriented to the 9th floor: yes Patient oriented to room and call system: yes Appropriate Wrist bands present: yes Dual RN skin check off with: yes Dena director toxicology Consult needed?: yes Visitor Identified and documented: yes cousin Kylie & friend Sunny Patient belongings documented: yes What Belongings are present?: multiple clothes, wallet w/ $41 in ring cell phone & transportation dispatcher Discharge Plan reviewed with patient: yes How will the patient get home when discharged: will need transport to facility Care Management consult needed?: yes [id number] Consult note* Cedric Tan DPM - 01/09/2022 4:59 PM EST Associated Order(s): IP CONSULT TO PODIATRY Images from the original note were not included. FOOT AND ANKLE SURGERY CONSULTATION NOTE ASSESSMENT: Mikayla Pappas 61 y.o. male with PMHx PVD, Diabetes type II, CVA, depression, LORENA, R BKA, anemia, HTN, HLD, urinary retention presents with left DFU to left sub 5th MT head and dry eschar to heel. - Afebrile, hypertensive, otherwise VSS -Labs reviewed: WBC 11.2, HGB 8.4, Cr 1.3 -Inflammatory markers: CRP 28, ESR 74 -XR left foot, 01/09/2022: No radiographic evidence of osteomyelitis to the calcaneus, no obvious gas -MRI left foot, 01/09/2022: pending -NIVS L foot, 01/09/2022: Pending -Swab cx left foot, 01/09/2022: Pending PLAN: -Patient seen and evaluated at bedside in ED -Verbal consent obtained. Utilizing a #15 blade, the wound at the subfifth metatarsal, left and theperiwound area at the plantar calcaneus, left was sharply and excisionally debrided down to subcutaneous tissue level including subcutaneous tissue. No tendons, or bone were removed. The wound was irrigated with copious amounts of normal saline. A swab culture was obtained of the left subfifth metatarsal wound and sent for aerobic, anaerobic, culture and sensitivity. Patient tolerated the debridement well and without complications -Dressing applied: Betadine, DSD, Kerlix secured with tape -NWB to LLE w/ assistive device and postop shoe - Heel boots while in bed, bilateral -Empiric IV abx per primary -Patient will require preoperative risk stratification, [place] [facility] [place] -No urgent OR planned at this time. Patient presenting with left heel decubitus ulcer and overlyingdry eschar, as well as left subfifth metatarsal wound. No purulence appreciated to either wound. Left subfifth metatarsal wound does probe deeply to periosteum. XR with no definitive OM or gas. -Wound culture obtained of metatarsal wound. Continue IV ABX per primary, tailor to culture as able. Will order MRI for further evaluation. Placed order for NIVS due to nonpalpable pulses. Further plan pending MRI, NIVS, attending discussion. -Patient discussed with Dr. Calvillo and associates, further plan per attending physician CHIEF COMPLAINT: Left foot wounds HISTORY OF PRESENT ILLNESS: Mikayla Pappas 61 y.o. male with PMHx PVD, Diabetes type II, CVA, depression, LORENA, R BKA, anemia, HTN, HLD, urinary retention presents with left DFU to left sub 5th MT head and dry eschar to heel.Patient states that he has been staying at a shelter facility. He reports that his wound care nurse noticed that he was getting a dry eschar to the plantar aspect of his heel. Patient states h e is not been utilizing any heel offloading boot. Patient reports that he does get regular nursing dressing changes but does not know what they utilized. Patient states that he does follow-up with Dr. Calvillo. The last time he saw him was roughly 1 month ago. He reports the doctors performed previous surgeries on his left foot. Patient is unaware if his wounds have increased in drainage, discoloration or malodor. He reports that he does have neuropathy to his left foot. He denies any history of tobacco, alcohol, illicit drug use. Review of Systems Denies fevers, chills, nausea, vomiting, chest pain, shortness of breath. 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 bobbin presser f/u Past Surgical History Past Surgical History: Procedure Laterality Date AMPUTATION FOOT Left 08/05/2020 Procedure: POSSIBLE AMPUTATION; Surgeon: Jet Calvillo DPM; Location: [facility] OR; Service: Podiatry AMPUTATION TOE(S) Right 08/03/2016 Procedure: RIGHT 3RD DIGIT AMPUTATION ; Surgeon: Jet Calvillo DPM; Location: [facility] OR; Service: CARDIAC CATHETERIZATION ablation for WPW CATHETER INSERTION SUPRAPUBIC N/A 08/16/2020 Procedure: CATHETER PLACEMENT OVER GUIDE; Surgeon: Paul Kim MD; Location: [facility] OR; Service: Urology CYSTO DIRECT VISION INTERNAL URETHROTOMY N/A 08/16/2020 Procedure: CYSTOSCOPY URETERAL DILATION POSSIBLE DIRECT VISION INTERNAL URETHROTOMY; Surgeon: Paul Kim MD; [place] [facility] [place]; Service: Urology FOOT SURGERY Right 2nd toe partial amputation INCISION AND DRAINAGE FOOT AND ANKLE Left 07/29/2020 Procedure: LEFT FOOT ULCER INCISION AND DRAINAGE LEFT FOOT BONE DEBRIDEMENT W/ BIOPSY; Surgeon: Jet Calvillo DPM; Location: [facility] OR; Service: Podiatry INCISION AND DRAINAGE FOOT AND ANKLE Left 08/05/2020 Procedure: LEFT FOOT ULCER DEBRIDEMENT; Surgeon: Jet Calvillo DPM; Location: [facility] OR; Service: Podiatry Medications No current facility-administered medications on file prior to encounter. Current Outpatient Medications on File Prior to Encounter Medication Sig Dispense Refill acetaminophen (TYLENOL) 325 MG tablet Take 650 mg by mouth every 6 (six) hours as needed for pain . aspirin 81 MG EC tablet Take 81 mg by mouth daily . atorvastatin (LIPITOR) 80 MG tablet Take 80 mg by mouth daily . bisacodyL (FLEET) 10 mg/30 mL Enem Insert 10 mg into the rectum once as needed . collagenase (SANTYL) ointment Apply 1 application topically at bedtime Left foot . cyanocobalamin (B-12) 500 MCG tablet Take 1 tablet by mouth daily . diclofenac sodium 1 % Gel Apply topically 4 (four) times a day . docusate sodium (COLACE) 100 MG capsule Take 100 mg by mouth 2 (two) times a day . DULoxetine (CYMBALTA) 60 MG capsule Take 60 mg by mouth at bedtime Along with 30 mg to make 90mg atbedtime . DULoxetine 30 mg CDRS Take 30 mg by mouth at bedtime Along with 60 mg to make 90mg at bedtime . ergocalciferol (ERGOCALCIFEROL) 1,250 mcg (50,000 unit) capsule Take 50,000 Units by mouth once a week . furosemide (LASIX) 20 MG tablet Take 20 mg by mouth 2 (two) times a day . gabapentin (NEURONTIN) 100 MG capsule Take 100 mg by mouth daily . gabapentin (NEURONTIN) 300 MG capsule Take 300 mg by mouth at bedtime . glipiZIDE (GLUCOTROL XL) 10 MG 24 hr tablet Take 10 mg by mouth daily . guaiFENesin (MUCINEX) 600 mg 12 hr tablet Take 600 mg by mouth 2 (two) times a day as needed for congestion . HYDROcodone-acetaminophen (NORCO) 5-325 mg per tablet Take 1 tablet by mouth every 6 (six) hours asneeded for pain . hydrocortisone 1 % cream Apply topically 2 (two) times a day . insulin glargine (Lantus Solostar U-100 Insulin) 100 unit/mL (3 mL) InPn Inject 22 Units under the skin nightly . lidocaine (LIDODERM) 5 % patch Place 1 patch on the skin every 12 (twelve) hours Remove & Discard patch within 12 hours or as directed by MD- to back . loperamide (IMODIUM A-D) 2 mg tablet Take 2 mg by mouth 4 (four) times a day as needed for diarrheaMax 4 tablets in 24 hours . magnesium hydroxide (MOM) 400 mg/5 mL Susp Take 30 mL by mouth daily as needed . melatonin 5 mg Tab Take 5 mg by mouth at bedtime . ondansetron (ZOFRAN-ODT) 4 MG disintegrating tablet Dissolve 4 mg on top of tongue every 6 (six) hours as needed for nausea . oxybutynin (DITROPAN-XL) 10 MG 24 hr tablet Take 10 mg by mouth daily . polyethylene glycol (MIRALAX) 17 gram powder Take 17 g by mouth daily . sitagliptin (JANUVIA) 50 MG tablet Take 50 mg by mouth daily . tiZANidine (ZANAFLEX) 2 MG tablet Take 2 mg by mouth 2 (two) times a day . alcohol swabs PadM Check your sugars up to 4 times a day . 100 each 11 amLODIPine (NORVASC) 10 MG tablet Take 1 (one) tablet (10 mg total) by mouth daily Start: 08/07/20.30 tablet 0 ascorbic acid, vitamin C, (VITAMIN C) 500 MG tablet Take 500 mg by mouth daily . yxjgzjw-noeabbeywtfbr-zueejkji (EXCEDRIN MIGRAINE) 250-250-65 mg per tablet Take 1 tablet by mouth every 6 (six) hours as needed for pain. blood sugar diagnostic strips Check your sugars up to 4 times a day . 100 each 11 blood-glucose meter Misc Check your sugars up to 4 times a day . 1 each 0 doxazosin (CARDURA) 4 MG tablet Take 4 mg by mouth daily . gabapentin (NEURONTIN) 300 MG capsule Take 1 (one) capsule (300 mg total) by mouth nightly (Days supply per fill: 30) . 30 capsule 0 insulin glargine (Basaglar KwikPen U-100 Insulin) 100 unit/mL (3 mL) InPn Inject 20 (twenty) Units under the skin nightly . 6 mL 0 insulin lispro (HumaLOG KwikPen Insulin) 100 unit/mL InPn For blood sugar 141- 180 give 2 units subcutaneoulsy, for 181-220 give 4 units, for 221-260 give 6 units, and for 261-300 give 8 units. . 18 mL 0 lancets Misc Check your sugars up to 4 times a day . 100 each 11 losartan (COZAAR) 25 MG tablet Take 25 mg by mouth daily . pen needle, diabetic 32 gauge x 5/32 Ndle Change pen needles daily as needed up to 4 times. . 100 each 11 rosuvastatin (Crestor) 40 MG tablet Take 1 (one) tablet (40 mg total) by mouth every evening . 30 tablet 0 sitagliptan-metFORMIN (JANUMET) 50-1,000 mg per tablet Take 1 tablet by mouth daily . Allergies Allergies Allergen Reactions Dilantin Infatabs [Phenytoin] Rash Social History Social History Socioeconomic History Marital status: Tobacco Use Smoking status: Never Smoker Smokeless tobacco: Never Used Vaping Use Vaping Use: Never used Substance and Sexual Activity Alcohol use: No Drug use: No Family History Family History Problem Relation Age of Onset Diabetes Father Surgical complications Neg Hx Anesthesia problems Neg Hx Heart disease Neg Hx Clotting disorder Neg Hx Deep vein thrombosis Neg Hx Pulmonary embolism Neg Hx - No history of bleeding or clotting disorders Vital Signs Vitals: 01/09/22 1301 01/09/22 1400 01/09/22 1430 BP: 137/65 138/65 (!) 151/64 Pulse: 76 75 79 Resp: 16 Temp: 97.7 F (36.5 C) SpO2: 100% 96% Weight: 81.6 kg (180 lb) Ins & Outs No intake or output data in the 24 hours ending 01/09/22 1659 PHYSICAL EXAM: General: Patient seen & evaluated at bedside. Patient in no apparent distress, resting comfortably in bed. Physical Exam: BP (!) 151/64 Pulse 79 Temp 97.7 F (36.5 C) Resp 16 Wt 81.6 kg (180 lb) SpO2 96% BMI 27.37 kg/m General appearance: Alert, well appearing, and in no acute distress. HEENT: Head- normocephalic, atraumatic. Eyes - PERRL bilaterally and EOMI. Ears - normal external appearance, hearing intact. Nose - normal, no erythema. Throat- mucous membranes moist, pharynx without lesions. Neck: supple, trachea midline. Cardiovascular: S1,S2 normal. No murmurs, rubs, clicks or gallops appreciated. No pedal edema. Respiratory: Lungs clear to auscultation, no wheezes, rales or rhonchi heard Abdomen: Soft, nontender, normal bowel sounds, nondistended, no masses or organomegaly appreciated. Neurological: Alert, oriented X 3. Grossly normal motor and sensory exam. No focal deficits. Musculoskeletal: No joint tenderness, deformity or swelling. Skin: Normal coloration and turgor. No rashes. Psych: Normal mood and effect LE Physical Exam: VASCULAR: DP pulse weakly palpable, left and PT pulse non-palpable, left. CFT < 3 sec to all digits, left.Mild edema appreciated to the level of the ankle, left . NEUROLOGICAL: Light touch sensation intact to the level of the mid-tibia, left. DERMATOLOGICAL: Skin is warm, dry and supple, B/L. Left subfifth metatarsal head wound: Full thickness ulceration noted to plantar aspect of the fifth metatarsal, left, measuring 1.2 cm x1.5 cm x 1.0 cm deep. Wound base is Mixed fibro-granular. Wound does not probe to bone, but does probe deeply to periosteum. No Malodor. No erythema, edema, calor, purulence, drainage, ecchymosis, crepitus, or fluctuance appreciated. Left calcaneal wound: Dry eschar appreciated to the plantar aspect of the left calcaneus. No purulence appreciated. No deep probe appreciated. Wound does not probe to bone. No malodor. No crepitus, fluctuance, bogginess appreciated. MUSCULOSKELETAL: No TTP to left foot. Muscle strength, 5/5, left. Previous BKA noted, right. Gastro-soleal equinus appreciated, left. LABS: Lab Results Component Value Date WBC 11.29 (H) 01/09/2022 HGB 8.4 (L) 01/09/2022 HCT 25.8 (L) 01/09/2022 MCV 89.0 01/09/2022 PLT 316 01/09/2022 Lab Results Component Value Date NA 138 01/09/2022 K 4.8 01/09/2022 CL 100 01/09/2022 PHOS 3.3 08/16/2020 BUN 48 (H) 01/09/2022 CREATININE 1.30 01/09/2022 CREATININE 1.2 10/17/2020 No results found for: GLU Lab Results Component Value Date CALCIUM 9.5 01/09/2022 PHOS 3.3 08/16/2020 Lab Results Component Value Date MG 1.9 07/27/2020 Lab Results Component Value Date BILITOT 1.2 10/19/2020 AST 17 10/19/2020 ALT 10 10/19/2020 ALKPHOS 82 10/19/2020 Lab Results Component Value Date SEDRATE 74 (H) 01/09/2022 Lab Results Component Value Date CRP 28.4 (H) 01/09/2022 No results found for: PREALBUMIN Lab Results Component Value Date HGBA1C 6.7 (H) 01/09/2022 Associated attestation - Ramana Jaramillo DPM - 01/10/2022 8:17 AM EST I have reviewed the notes, assessments, and/or procedures performed by Dr. Tan, I concur with hisdocumentation of Mikayla Pappas. He will likely require surgical intervention during this admission, no urgent plans for OR. Furtherrecs pending MRI and NVIS. Ramana Jaramillo DPM [id number] History and physical note* Franca Earl, WEB MANAGER - 01/09/2022 3:03 PM EST [facility] [place] Patient Name: Mikayla Pappas : 1960 MR #: [id number] Admit Date: 01/09/2022 Physicians: Greyson Dominguez MD (Family); Jet Calvillo DPM (Referring) Mikayla Pappas is a 61 y.o. male patient of Greyson Dominguez MD with history of PVD, Diabetestype II, CVA, depression, LORENA, R BKA, anemia, HTN, HLD, urinary retention presented with worsening left diabetic foot ulcer. Chronic Diabetic ulcer on left foot H/o R BKA PVD P/w worsening foot ulcer with necrosis on left foot Wound present since 08/2020 HDS, afebrile, WBC 11k CRP/sed rate 28.4, 74, lactic pending Blood cultures collected and pending Left foot Xrays with shallow soft tissue ulceration of the heel with forefoot soft tissue swelling.No radiographic evidence of osteomyelitis of the calcaneus. Chronic appearing erosion along the lateral aspect of the 2nd metatarsal head new from 07/26/2020. If there is a nearby soft tissue ulceration osteomyelitis is not excluded Left foot MRI pending Continue ancef, flagy and vanc started in ED Wound care consult PT/OT Podiatry consulted by ED, aware of patient Uncontrolled IDDM2 with Hyperglycemia Chronic diabetic neuropathy BS 199 on admit, A1C pending on Janumet, Glipizide and Lantus, hold orals Unclear compliance at home Continue home gabapentin SSI, diabetic diet, home lantus BAILEE Creat 1.3, BUN 48, GFR 59 Baseline creat ~1, GFR ~70, likely related to decreased intake Will hold lasix for now, monitor daily labs Chronic Normocytic Anemia Baseline Hgb ~10, Hgb 8.4 on admission No active s/sx of bleeding, HDS Will check iron studies and B12/folate Monitor daily CBC, transfuse for Hgb <7 Chronic Urinary Retention Chronic todd catheter Todd placed in Dr. Mercedes's office, follows there Continue Todd Continue home oxybutynin Urology f/u OP encouraged H/o CVA Generalized Weakness 10/2020, treated at [facility] Residual bilateral weakness, no deficits Pt resides at [facility] for rehab PT/OT consult Continue asa and lipitor Essential HTN Normotensive on arrival Per ECF med list pt only on lasix, previously on norvasc 10, losartan 25, monitor for need to restart medications. Consider substituting losartan for lasix on discharge. HLD Continue home statin Depression Continue home cymbalta Mood appears stable LORENA Continue CPAP at bedtime and with naps Pt desats to ~89% while sleeping Admitted From: SNF/ECF Medication Reconciliation: Verified Code Status: Full Code Quality Measures DVT Prophylaxis: SCDs and Transition to pharmacologic management carlos pending podiatry recs Todd Catheter: present Admission does not require smart-phrase Chief Complaint Worsening left diabetic foot ulcer History of Present Illness Mikayla Pappas is a 61 y.o. male patient of Greyson Dominguez MD with history of PVD, Diabetes type II, CVA, depression, LORENA, R BKA, anemia, HTN, HLD, urinary retention presented with worsening left diabetic foot ulcer. Patient states that he feels at his baseline, not having increased pain but states that his ECF told him that his left foot wound is getting worse.His np suggested he come to the ED for evaluation. He currently has no complaints other than being a little tired and chronic numbness/tingling of extremities. He denies CP, SOB, fevers/chills, N/V/D, pain. 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 f/u Past Surgical History Past Surgical History: Procedure Laterality Date AMPUTATION FOOT Left 08/05/2020 Procedure: POSSIBLE AMPUTATION; Surgeon: Jet Calvillo DPM; Location: [facility] OR; Service: Podiatry AMPUTATION TOE(S) Right 08/03/2016 Procedure: RIGHT 3RD DIGIT AMPUTATION ; Surgeon: Jet Calvillo DPM; Location: [facility] OR; Service: CARDIAC CATHETERIZATION ablation for WPW CATHETER INSERTION SUPRAPUBIC N/A 08/16/2020 Procedure: CATHETER PLACEMENT OVER GUIDE; Surgeon: Paul Kim MD; Location: [facility] OR; Service: Urology CYSTO DIRECT VISION INTERNAL URETHROTOMY N/A 08/16/2020 Procedure: CYSTOSCOPY URETERAL DILATION POSSIBLE DIRECT VISION INTERNAL URETHROTOMY; Surgeon: Paul Kim MD; Location: [facility] OR; Service: Urology FOOT SURGERY Right 2nd toe partial amputation INCISION AND DRAINAGE FOOT AND ANKLE Left 07/29/2020 Procedure: LEFT FOOT ULCER INCISION AND DRAINAGE LEFT FOOT BONE DEBRIDEMENT W/ BIOPSY; Surgeon: Jet Calvillo DPM; Location: [facility] OR; Service: Podiatry INCISION AND DRAINAGE FOOT AND ANKLE Left 08/05/2020 Procedure: LEFT FOOT ULCER DEBRIDEMENT; Surgeon: Jet Calvillo DPM; Location: [facility] OR; Service: Podiatry Family History Family History Problem Relation Age of Onset Diabetes Father Surgical complications Neg Hx Anesthesia problems Neg Hx Heart disease Neg Hx Clotting disorder Neg Hx Deep vein thrombosis Neg Hx Pulmonary embolism Neg Hx Social History Social History Tobacco Use Smoking Status Never Smoker Smokeless Tobacco Never Used Social History Substance and Sexual Activity Alcohol Use No Social History Substance and Sexual Activity Drug Use No Allergy Information I have reviewed the patient's allergies. Dilantin infatabs [phenytoin] Home Medications Home medications were reviewed. Review Of Systems Constitutional: Denies fever, chills, weight loss Eyes: Denies vision changes ENT: Denies hearing loss, nasal congestion, sore throat CV: Denies chest pain, palpitations, peripheral edema Respiratory: Denies shortness of breath, cough, wheezing GI: Denies abdominal pain, nausea, vomiting, diarrhea, constipation : Denies dysuria, frequent urination MSK: Denies joint pain or swelling, restricted motion Integumentary: Denies skin changes, pruritis Neurological: Denies dizziness, headache, + numbness or tingling Psychiatric: Denies depression, anxiety, sleep disturbance Endocrine: Denies heat or cold intolerance, excessive thirst Hematological: Denies abnormal bleeding or bruising Allergy/Immunological: Denies hives, swelling of lips or tongue Physical Examination BP (!) 151/64 Pulse 79 Temp 97.7 F (36.5 C) Resp 16 Wt 81.6 kg (180 lb) SpO2 96% BMI 27.37 kg/m General Appearance: alert; chronically ill appearing; in no acute distress HEENT: Head- normocephalic; Eyes- EOMI, sclera anicteric; Ears- hearing intact; Nose- no nasal discharge; Throat- mucous membranes moist Cardiovascular: regular rate and rhythm; normal S1, S2; no murmurs, rubs, clicks or gallops; no peripheral edema Respiratory: lungs clear to auscultation; without wheezes, rales or rhonchi; on nasal cannula 1L since admission, patient desating while sleeping to 89%, known LORENA Abdomen: soft, non-tender, non-distended; positive bowel sounds Neurological: oriented x 3; normal speech; no focal findings or movement disorder noted Musculoskeletal: no significant deformity or tenderness to palpation Skin: normal coloration; no obvious rashes, lesions or skin breakdown Psych: normal mood and affect Laboratory and Additional Data Reviewed Laboratory 01/09/22 4:08 PM Radiology 01/09/22 4:08 PM Cardiology 01/09/22 4:08 PM Medications 01/09/22 4:08 PM Transcriptions 01/09/22 4:08 PM Associated attestation - Riana Fairbanks MD - 01/09/2022 9:57 PM EST HMS NOTE ADDENDUM I saw and examined the patient independently of the MANUEL . Labs, medications, imaging and other studies were reviewed. I agree with history, physical examination findings, medical decision making and the assessment/plan with additions as noted in my documentation below. Assessment/Plan Left Diabetic Foot ulcer, Acute on Chronic Presenting w/worsening left foot wound Afebrile, HDS; no SIRS or sepsis on admission ESR/CRP mildly elevated, WBC 11K XR L foot w/o OM Podiatry consulted - no plan for OR MR, non-invasive studies pending Ancef/Flagyl/Vanc started in ED, continued on admission PT/OT consulted Multimodal pain management T2DM, insulin dependent Diabetic Peripheral Neuropathy Chronic, w/hyperglycemia on admission, not in DKA BG 199, A1c pending Home oral agents held Lantus continued Accuchecks and SSI ordered Monitor and titrate PRN BAILEE Likely pre-renal in the setting of diuretic use Cr 1.3 on admission, baseline WNL Lasix held on amdission Encouraged PO hydration Monitor UOP Daily RFP Limit nephrotoxins and PICC as able Urinary Retention Chronic, managed w/chronic indwelling todd Last changed 1wk ago at [facility] Maintain todd F/U OP [id number] Emergency department Note* Jef Barclay, WEB MANAGER - 01/09/2022 2:23 PM EST Images from the original note were not included. ED PROVIDER NOTE [facility] ONCOLOGY/SURGERY NAME: Mikayla Pappas AGE: 61 y.o. : 1960 VISIT DATE: 01/09/2022 CSN: [id number] PCP: Greyson Dominguez MD Chief Complaint Patient presents with Wound Check HPI 61-year-old male presents today with concern for worsening left foot infection. Patient has a significant history for right BKA, recent stroke with reported bilateral residual weakness. He states he believes he is on Augmentin for reported ESBL infection to a another wound on the left foot. There is concern for worsening infection and was advised to come here from a shelter facility. Patient states otherwise he feels well no nausea vomiting fevers or chills. States he does not have muchsensation in the foot so not able to decide if having more pain than usual. 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 f/u Past Surgical History: Procedure Laterality Date AMPUTATION FOOT Left 08/05/2020 Procedure: POSSIBLE AMPUTATION; Surgeon: Jet Calvillo DPM; Location: [facility] OR; Service: Podiatry AMPUTATION TOE(S) Right 08/03/2016 Procedure: RIGHT 3RD DIGIT AMPUTATION ; Surgeon: Jet Calvillo DPM; Location: [facility] OR; Service: CARDIAC CATHETERIZATION ablation for WPW CATHETER INSERTION SUPRAPUBIC N/A 08/16/2020 Procedure: CATHETER PLACEMENT OVER GUIDE; Surgeon: Paul Kim MD; Location: [facility] OR; Service: Urology CYSTO DIRECT VISION INTERNAL URETHROTOMY N/A 08/16/2020 Procedure: CYSTOSCOPY URETERAL DILATION POSSIBLE DIRECT VISION INTERNAL URETHROTOMY; Surgeon: Paul Kim MD; Location: [facility] OR; Service: Urology FOOT SURGERY Right 2nd toe partial amputation INCISION AND DRAINAGE FOOT AND ANKLE Left 07/29/2020 Procedure: LEFT FOOT ULCER INCISION AND DRAINAGE LEFT FOOT BONE DEBRIDEMENT W/ BIOPSY; Surgeon: Jet Calvillo DPM; Location: [facility] OR; Service: Podiatry INCISION AND DRAINAGE FOOT AND ANKLE Left 08/05/2020 Procedure: LEFT FOOT ULCER DEBRIDEMENT; Surgeon: Jet Calvillo DPM; Location: [facility] OR; Service: Podiatry Family History Problem Relation Age of Onset Diabetes Father Surgical complications Neg Hx Anesthesia problems Neg Hx Heart disease Neg Hx Clotting disorder Neg Hx Deep vein thrombosis Neg Hx Pulmonary embolism Neg Hx Social History Socioeconomic History Marital status: Tobacco Use Smoking status: Never Smoker Smokeless tobacco: Never Used Vaping Use Vaping Use: Never used Substance and Sexual Activity Alcohol use: No Drug use: No Previous Medications Medication Sig acetaminophen (TYLENOL) 325 MG tablet Take 650 mg by mouth every 6 (six) hours as needed for pain . aspirin 81 MG EC tablet Take 81 mg by mouth daily . atorvastatin (LIPITOR) 80 MG tablet Take 80 mg by mouth daily . bisacodyL (FLEET) 10 mg/30 mL Enem Insert 10 mg into the rectum once as needed . collagenase (SANTYL) ointment Apply 1 application topically at bedtime Left foot . cyanocobalamin (B-12) 500 MCG tablet Take 1 tablet by mouth daily . diclofenac sodium 1 % Gel Apply topically 4 (four) times a day . docusate sodium (COLACE) 100 MG capsule Take 100 mg by mouth 2 (two) times a day . DULoxetine (CYMBALTA) 60 MG capsule Take 60 mg by mouth at bedtime Along with 30 mg to make 90mg atbedtime . DULoxetine 30 mg CDRS Take 30 mg by mouth at bedtime Along with 60 mg to make 90mg at bedtime . ergocalciferol (ERGOCALCIFEROL) 1,250 mcg (50,000 unit) capsule Take 50,000 Units by mouth once a week . furosemide (LASIX) 20 MG tablet Take 20 mg by mouth 2 (two) times a day . gabapentin (NEURONTIN) 100 MG capsule Take 100 mg by mouth daily . gabapentin (NEURONTIN) 300 MG capsule Take 300 mg by mouth at bedtime . glipiZIDE (GLUCOTROL XL) 10 MG 24 hr tablet Take 10 mg by mouth daily . guaiFENesin (MUCINEX) 600 mg 12 hr tablet Take 600 mg by mouth 2 (two) times a day as needed for congestion . HYDROcodone-acetaminophen (NORCO) 5-325 mg per tablet Take 1 tablet by mouth every 6 (six) hours asneeded for pain . hydrocortisone 1 % cream Apply topically 2 (two) times a day . insulin glargine (Lantus Solostar U-100 Insulin) 100 unit/mL (3 mL) InPn Inject 22 Units under the skin nightly . lidocaine (LIDODERM) 5 % patch Place 1 patch on the skin every 12 (twelve) hours Remove & Discard patch within 12 hours or as directed by MD- to back . loperamide (IMODIUM A-D) 2 mg tablet Take 2 mg by mouth 4 (four) times a day as needed for diarrheaMax 4 tablets in 24 hours . magnesium hydroxide (MOM) 400 mg/5 mL Susp Take 30 mL by mouth daily as needed . melatonin 5 mg Tab Take 5 mg by mouth at bedtime . ondansetron (ZOFRAN-ODT) 4 MG disintegrating tablet Dissolve 4 mg on top of tongue every 6 (six) hours as needed for nausea . oxybutynin (DITROPAN-XL) 10 MG 24 hr tablet Take 10 mg by mouth daily . polyethylene glycol (MIRALAX) 17 gram powder Take 17 g by mouth daily . sitagliptin (JANUVIA) 50 MG tablet Take 50 mg by mouth daily . tiZANidine (ZANAFLEX) 2 MG tablet Take 2 mg by mouth 2 (two) times a day . alcohol swabs PadM Check your sugars up to 4 times a day . amLODIPine (NORVASC) 10 MG tablet Take 1 (one) tablet (10 mg total) by mouth daily Start: 08/07/20. ascorbic acid, vitamin C, (VITAMIN C) 500 MG tablet Take 500 mg by mouth daily . eoscytm-jmavnhpbuwmek-ajqsfoah (EXCEDRIN MIGRAINE) 250-250-65 mg per tablet Take 1 tablet by mouth every 6 (six) hours as needed for pain. blood sugar diagnostic strips Check your sugars up to 4 times a day . blood-glucose meter Misc Check your sugars up to 4 times a day . doxazosin (CARDURA) 4 MG tablet Take 4 mg by mouth daily . gabapentin (NEURONTIN) 300 MG capsule Take 1 (one) capsule (300 mg total) by mouth nightly (Days supply per fill: 30) . insulin glargine (Basaglar KwikPen U-100 Insulin) 100 unit/mL (3 mL) InPn Inject 20 (twenty) Units under the skin nightly . insulin lispro (HumaLOG KwikPen Insulin) 100 unit/mL InPn For blood sugar 141- 180 give 2 units subcutaneoulsy, for 181-220 give 4 units, for 221-260 give 6 units, and for 261-300 give 8 units. . lancets Misc Check your sugars up to 4 times a day . losartan (COZAAR) 25 MG tablet Take 25 mg by mouth daily . pen needle, diabetic 32 gauge x 5/32 Ndle Change pen needles daily as needed up to 4 times. . rosuvastatin (Crestor) 40 MG tablet Take 1 (one) tablet (40 mg total) by mouth every evening . sitagliptan-metFORMIN (JANUMET) 50-1,000 mg per tablet Take 1 tablet by mouth daily . Allergies Allergen Reactions Dilantin Infatabs [Phenytoin] Rash Review of Systems Constitutional: Negative. HENT: Negative for trouble swallowing. Respiratory: Negative. Cardiovascular: Negative. Gastrointestinal: Negative for abdominal pain. Genitourinary: Chronic Todd catheter Skin: Positive for color change and wound. Neurological: Negative for dizziness. Psychiatric/Behavioral: Negative for confusion. All other systems reviewed and are negative. Patient Vitals for the past 24 hrs: BP Temp Pulse Resp SpO2 Weight 01/09/22 1430 (!) 151/64 -- 79 -- -- -- 01/09/22 1400 138/65 -- 75 -- 96 % -- 01/09/22 1301 137/65 97.7 F (36.5 C) 76 16 100 % 81.6 kg (180 lb) Physical Exam Vitals and nursing note reviewed. Constitutional: General: He is not in acute distress. Appearance: Normal appearance. He is not ill-appearing, toxic-appearing or diaphoretic. HENT: Head: Normocephalic and atraumatic. Cardiovascular: Rate and Rhythm: Normal rate. Pulses: Normal pulses. Dorsalis pedis pulses are 2+ on the left side. Right dorsalis pedis pulse not accessible. Posterior tibial pulses are 2+ on the left side. Right posterior tibial pulse not accessible. Skin: General: Skin is warm and dry. Findings: Erythema and lesion present. Neurological: General: No focal deficit present. Mental Status: He is alert and oriented to person, place, and time. Cranial Nerves: No cranial nerve deficit. Sensory: No sensory deficit. Psychiatric: Mood and Affect: Mood normal. Behavior: Behavior normal. Laboratory & Radiographic Imaging (if done): Results for orders placed or performed during the hospital encounter of 01/09/22 COVID-19, Molecular Specimen: Nasopharyngeal; Swab Result Value Ref Range SARS-CoV-2 Not Detected Not Detected Mint Green Top Result Value Ref Range Extra Tube Hold for add-ons. Light Blue Top Result Value Ref Range Extra Tube Hold for add-ons. Story Top Result Value Ref Range Extra Tube Hold for add-ons. BMP Result Value Ref Range Sodium 138 135 - 145 mmol/L Potassium 4.8 3.5 - 5.1 mmol/L Chloride 100 98 - 108 mmol/L Bicarbonate 26 21 - 32 mmol/L Anion Gap 17 10 - 20 mmol/L Glucose 199 (H) 65 - 99 mg/dL BUN 48 (H) 8 - 25 mg/dL Creatinine 1.30 0.50 - 1.30 mg/dL eGFR 59 (L) >=60 mL/min/1.73 m2 BUN/Creatinine Ratio 36.9 (H) 10.0 - 20.0 Calcium 9.5 8.4 - 10.2 mg/dL Sedimentation Rate Result Value Ref Range Sed Rate 74 (H) 0 - 20 mm/hr CRP, Inflammation Result Value Ref Range CRP(Inflammation) 28.4 (H) 0.0 - 10.0 mg/L Iron Study with Ferritin Result Value Ref Range Iron 36 (L) 40 - 165 mcg/dL TIBC 225 225 - 430 mcg/dL Iron Saturation 16 (L) 20 - 50 % Ferritin 423 (H) 30 - 400 ng/mL B12/Folate Result Value Ref Range B12 932 232 - 1,245 pg/mL Folate 12.4 3.1 - 17.5 ng/mL Hemoglobin A1c Result Value Ref Range Hemoglobin A1C 6.7 (H) 4.2 - 5.6 % Estimated Average Glucose 146 (H) 74 - 114 mg/dL Lactic Acid, Plasma Result Value Ref Range Lactic Acid 1.1 0.6 - 2.0 mmol/L CBC Auto Differential Result Value Ref Range WBC 11.29 (H) 4.50 - 11.00 K/mcL RBC 2.90 (L) 4.50 - 5.90 M/mcL Hemoglobin 8.4 (L) 13.5 - 17.5 g/dL Hematocrit 25.8 (L) 41.0 - 53.0 % MCV 89.0 80.0 - 100.0 fL MCH 29.0 26.0 - 34.0 pg MCHC 32.6 31.0 - 37.0 g/dL Platelets 316 150 - 400 K/mcL RDW - CV 13.4 11.6 - 14.8 % MPV 8.5 (L) 9.4 - 12.4 fL Neutrophils 67.8 % Lymphocytes 17.0 % Monocytes 10.1 % Eosinophils 3.7 % Basophils 0.2 % IG Percent 1.20 % Neutrophils Abs 7.65 (H) 1.70 - 7.00 K/mcL Lymphocytes Abs 1.92 0.90 - 4.00 K/mcL Monocytes Abs 1.14 (H) 0.30 - 0.90 K/mcL Eosinophils Abs 0.42 0.00 - 0.50 K/mcL Basophils Abs 0.02 0.00 - 0.30 K/mcL IG Absolute 0.14 0.00 - 0.30 K/mcL Nucleated RBC 0.0 % Nucleated RBC Abs 0.00 0.00 - 0.00 K/mcL US Doppler ankle/brachial index XR Foot Left 3+ Views (Standard) Final Result 1. Suspected shallow soft tissue ulceration of the heel with forefoot soft tissue swelling. No radiographic evidence of osteomyelitis of the calcaneus. 2. Chronic appearing erosion along the lateral aspect of the 2nd metatarsal head new from 07/26/2020. If there is a nearby soft tissue ulceration osteomyelitis is not excluded. Alternatively, this raises the possibility of gout or less likely an inflammatory arthritis. Workstation ID: [id number] MR Foot Left Without Contrast (Results Pending) MR Heel Left Without Contrast (Results Pending) Ultrasound duplex arterial legs bilat (Results Pending) Procedures An order for CPAP has been placed to start on 01/09/2022, for a diagnosis of LORENA (obstructive sleep apnea). MDM 61-year-old male presents today with concern for worsening left foot infection. Patient has a significant history for right BKA, recent stroke with reported bilateral residual weakness. He states he believes he is on Augmentin for reported ESBL infection to a another wound on the left foot. There is concern for worsening infection and was advised to come here from a shelter facility. Patient states otherwise he feels well no nausea vomiting fevers or chills. States he does not have muchsensation in the foot so not able to decide if having more pain than usual. On exam is awake alert, respirations regular easy. Lung sounds good auscultation. Right BKA noted. Left foot, please see attached photo, there is necrotic heel wound that is boggy surrounding erythema and foul-smelling. Area is warm to touch. +2 DP PT pulse to the left foot. He is nontoxic-appearing with stable vital signs. Discussed with ED pharmacist regarding weight management recommended Vanco Flagyl cefazolin. White count 11.29 CRP 28.4, sed rate 74, BMP shows glucose 199 creatinine 1.30 X-ray left foot: 1. Suspected shallow soft tissue ulceration of the heel with forefoot soft tissue swelling. No radiographic evidence of osteomyelitis of the calcaneus. 2. Chronic appearing erosion along the lateral aspect of the 2nd metatarsal head new from 07/26/2020. If there is a nearby soft tissue ulceration osteomyelitis is not excluded. Alternatively, this raises the possibility of gout or less likely an inflammatory arthritis. Podiatry consulted they are aware the patient and on their way to see the patient. Patient will be admitted to medicine for further medical management and evaluation . Clinical Impression: 1. Diabetic foot infection (HCC) 2. Wound infection ED Disposition ED Disposition Hospitalize Condition -- Comment Reason for inpatient over two midnights: IV atb, podiatry consult Follow-up Information Follow-up information has not been specified. Contact information for after-discharge care Follow-up information has not been specified. New Prescriptions This print group is not available in inpatient encounters. Please contact a computer system validation specialist. Jef Barclay CNP 01/09/22 1733 * Eden Morillo RN - 01/09/2022 1:01 PM EST Patient sent from [facility]nursing [facility] for wound check, foot ulcer to left heel, pt see's Dr Calvillo - [facility] [place] [facility] [place]. Per transfer note the pt has been on Augmentin for ESBL in wound. Black necrotic wound to left heel, doppler PT and DP pulses. * Eden Morillo RN - 01/09/2022 1:00 PM EST Bed: 48 Expected date: Expected time: Means of arrival: Comments: Chetan Jerez GB, Foot Ulcer, Torrez documented in this [id number] Physician Emergency department Note* Jef Barclay CNP - 01/09/2022 2:23 PM EST Images from the original note were not included. ED PROVIDER NOTE [facility] ONCOL[facility]URGERY NAME: Mikayla Pappas AGE: 61 y.o. : 1960 VISIT DATE: 01/09/2022 CSN: [id number] PCP: Greyson Dominguez MD Chief Complaint Patient presents with Wound Check HPI 61-year-old male presents today with concern for worsening left foot infection. Patient has a significant history for right BKA, recent stroke with reported bilateral residual weakness. He states he believes he is on Augmentin for reported ESBL infection to a another wound on the left foot. There is concern for worsening infection and was advised to come here from a shelter facility. Patient states otherwise he feels well no nausea vomiting fevers or chills. States he does not have muchsensation in the foot so not able to decide if having more pain than usual. 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 f/u Past Surgical History: Procedure Laterality Date AMPUTATION FOOT Left 08/05/2020 Procedure: POSSIBLE AMPUTATION; Surgeon: Jet Calvillo DPM; Location: [facility] OR; Service: Podiatry AMPUTATION TOE(S) Right 08/03/2016 Procedure: RIGHT 3RD DIGIT AMPUTATION ; Surgeon: Jet Calvillo DPM; Location: [facility] OR; Service: CARDIAC CATHETERIZATION ablation for WPW CATHETER INSERTION SUPRAPUBIC N/A 08/16/2020 Procedure: CATHETER PLACEMENT OVER GUIDE; Surgeon: Paul Kim MD; Location: [facility] OR; Service: Urology CYSTO DIRECT VISION INTERNAL URETHROTOMY N/A 08/16/2020 Procedure: CYSTOSCOPY URETERAL DILATION POSSIBLE DIRECT VISION INTERNAL URETHROTOMY; Surgeon: Paul Kim MD; [place] [facility] [place] [facility] [place]; Service: Urology FOOT SURGERY Right 2nd toe partial amputation INCISION AND DRAINAGE FOOT AND ANKLE Left 07/29/2020 Procedure: LEFT FOOT ULCER INCISION AND DRAINAGE LEFT FOOT BONE DEBRIDEMENT W/ BIOPSY; Surgeon: Jet Calvillo DPM; Location: [facility] OR; Service: Podiatry INCISION AND DRAINAGE FOOT AND ANKLE Left 08/05/2020 Procedure: LEFT FOOT ULCER DEBRIDEMENT; Surgeon: Jet Calvillo DPM; Location: [facility] OR; Service: Podiatry Family History Problem Relation Age of Onset Diabetes Father Surgical complications Neg Hx Anesthesia problems Neg Hx Heart disease Neg Hx Clotting disorder Neg Hx Deep vein thrombosis Neg Hx Pulmonary embolism Neg Hx Social History Socioeconomic History Marital status: Tobacco Use Smoking status: Never Smoker Smokeless tobacco: Never Used Vaping Use Vaping Use: Never used Substance and Sexual Activity Alcohol use: No Drug use: No Previous Medications Medication Sig acetaminophen (TYLENOL) 325 MG tablet Take 650 mg by mouth every 6 (six) hours as needed for pain . aspirin 81 MG EC tablet Take 81 mg by mouth daily . atorvastatin (LIPITOR) 80 MG tablet Take 80 mg by mouth daily . bisacodyL (FLEET) 10 mg/30 mL Enem Insert 10 mg into the rectum once as needed . collagenase (SANTYL) ointment Apply 1 application topically at bedtime Left foot . cyanocobalamin (B-12) 500 MCG tablet Take 1 tablet by mouth daily . diclofenac sodium 1 % Gel Apply topically 4 (four) times a day . docusate sodium (COLACE) 100 MG capsule Take 100 mg by mouth 2 (two) times a day . DULoxetine (CYMBALTA) 60 MG capsule Take 60 mg by mouth at bedtime Along with 30 mg to make 90mg atbedtime . DULoxetine 30 mg CDRS Take 30 mg by mouth at bedtime Along with 60 mg to make 90mg at bedtime . ergocalciferol (ERGOCALCIFEROL) 1,250 mcg (50,000 unit) capsule Take 50,000 Units by mouth once a week . furosemide (LASIX) 20 MG tablet Take 20 mg by mouth 2 (two) times a day . gabapentin (NEURONTIN) 100 MG capsule Take 100 mg by mouth daily . gabapentin (NEURONTIN) 300 MG capsule Take 300 mg by mouth at bedtime . glipiZIDE (GLUCOTROL XL) 10 MG 24 hr tablet Take 10 mg by mouth daily . guaiFENesin (MUCINEX) 600 mg 12 hr tablet Take 600 mg by mouth 2 (two) times a day as needed for congestion . HYDROcodone-acetaminophen (NORCO) 5-325 mg per tablet Take 1 tablet by mouth every 6 (six) hours asneeded for pain . hydrocortisone 1 % cream Apply topically 2 (two) times a day . insulin glargine (Lantus Solostar U-100 Insulin) 100 unit/mL (3 mL) InPn Inject 22 Units under the skin nightly . lidocaine (LIDODERM) 5 % patch Place 1 patch on the skin every 12 (twelve) hours Remove & Discard patch within 12 hours or as directed by MD- to back . loperamide (IMODIUM A-D) 2 mg tablet Take 2 mg by mouth 4 (four) times a day as needed for diarrheaMax 4 tablets in 24 hours . magnesium hydroxide (MOM) 400 mg/5 mL Susp Take 30 mL by mouth daily as needed . melatonin 5 mg Tab Take 5 mg by mouth at bedtime . ondansetron (ZOFRAN-ODT) 4 MG disintegrating tablet Dissolve 4 mg on top of tongue every 6 (six) hours as needed for nausea . oxybutynin (DITROPAN-XL) 10 MG 24 hr tablet Take 10 mg by mouth daily . polyethylene glycol (MIRALAX) 17 gram powder Take 17 g by mouth daily . sitagliptin (JANUVIA) 50 MG tablet Take 50 mg by mouth daily . tiZANidine (ZANAFLEX) 2 MG tablet Take 2 mg by mouth 2 (two) times a day . alcohol swabs PadM Check your sugars up to 4 times a day . amLODIPine (NORVASC) 10 MG tablet Take 1 (one) tablet (10 mg total) by mouth daily Start: 08/07/20. ascorbic acid, vitamin C, (VITAMIN C) 500 MG tablet Take 500 mg by mouth daily . pvqlzkp-gqpzyxzimugtv-moqowwis (EXCEDRIN MIGRAINE) 250-250-65 mg per tablet Take 1 tablet by mouth every 6 (six) hours as needed for pain. blood sugar diagnostic strips Check your sugars up to 4 times a day . blood-glucose meter Misc Check your sugars up to 4 times a day . doxazosin (CARDURA) 4 MG tablet Take 4 mg by mouth daily . gabapentin (NEURONTIN) 300 MG capsule Take 1 (one) capsule (300 mg total) by mouth nightly (Days supply per fill: 30) . insulin glargine (Basaglar KwikPen U-100 Insulin) 100 unit/mL (3 mL) InPn Inject 20 (twenty) Units under the skin nightly . insulin lispro (HumaLOG KwikPen Insulin) 100 unit/mL InPn For blood sugar 141- 180 give 2 units subcutaneoulsy, for 181-220 give 4 units, for 221-260 give 6 units, and for 261-300 give 8 units. . lancets Misc Check your sugars up to 4 times a day . losartan (COZAAR) 25 MG tablet Take 25 mg by mouth daily . pen needle, diabetic 32 gauge x 5/32 Ndle Change pen needles daily as needed up to 4 times. . rosuvastatin (Crestor) 40 MG tablet Take 1 (one) tablet (40 mg total) by mouth every evening . sitagliptan-metFORMIN (JANUMET) 50-1,000 mg per tablet Take 1 tablet by mouth daily . Allergies Allergen Reactions Dilantin Infatabs [Phenytoin] Rash Review of Systems Constitutional: Negative. HENT: Negative for trouble swallowing. Respiratory: Negative. Cardiovascular: Negative. Gastrointestinal: Negative for abdominal pain. Genitourinary: Chronic Todd catheter Skin: Positive for color change and wound. Neurological: Negative for dizziness. Psychiatric/Behavioral: Negative for confusion. All other systems reviewed and are negative. Patient Vitals for the past 24 hrs: BP Temp Pulse Resp SpO2 Weight 01/09/22 1430 (!) 151/64 -- 79 -- -- -- 01/09/22 1400 138/65 -- 75 -- 96 % -- 01/09/22 1301 137/65 97.7 F (36.5 C) 76 16 100 % 81.6 kg (180 lb) Physical Exam Vitals and nursing note reviewed. Constitutional: General: He is not in acute distress. Appearance: Normal appearance. He is not ill-appearing, toxic-appearing or diaphoretic. HENT: Head: Normocephalic and atraumatic. Cardiovascular: Rate and Rhythm: Normal rate. Pulses: Normal pulses. Dorsalis pedis pulses are 2+ on the left side. Right dorsalis pedis pulse not accessible. Posterior tibial pulses are 2+ on the left side. Right posterior tibial pulse not accessible. Skin: General: Skin is warm and dry. Findings: Erythema and lesion present. Neurological: General: No focal deficit present. Mental Status: He is alert and oriented to person, place, and time. Cranial Nerves: No cranial nerve deficit. Sensory: No sensory deficit. Psychiatric: Mood and Affect: Mood normal. Behavior: Behavior normal. Laboratory & Radiographic Imaging (if done): Results for orders placed or performed during the hospital encounter of 01/09/22 COVID-19, Molecular Specimen: Nasopharyngeal; Swab Result Value Ref Range SARS-CoV-2 Not Detected Not Detected Mint Green Top Result Value Ref Range Extra Tube Hold for add-ons. Light Blue Top Result Value Ref Range Extra Tube Hold for add-ons. Story Top Result Value Ref Range Extra Tube Hold for add-ons. BMP Result Value Ref Range Sodium 138 135 - 145 mmol/L Potassium 4.8 3.5 - 5.1 mmol/L Chloride 100 98 - 108 mmol/L Bicarbonate 26 21 - 32 mmol/L Anion Gap 17 10 - 20 mmol/L Glucose 199 (H) 65 - 99 mg/dL BUN 48 (H) 8 - 25 mg/dL Creatinine 1.30 0.50 - 1.30 mg/dL eGFR 59 (L) >=60 mL/min/1.73 m2 BUN/Creatinine Ratio 36.9 (H) 10.0 - 20.0 Calcium 9.5 8.4 - 10.2 mg/dL Sedimentation Rate Result Value Ref Range Sed Rate 74 (H) 0 - 20 mm/hr CRP, Inflammation Result Value Ref Range CRP(Inflammation) 28.4 (H) 0.0 - 10.0 mg/L Iron Study with Ferritin Result Value Ref Range Iron 36 (L) 40 - 165 mcg/dL TIBC 225 225 - 430 mcg/dL Iron Saturation 16 (L) 20 - 50 % Ferritin 423 (H) 30 - 400 ng/mL B12/Folate Result Value Ref Range B12 932 232 - 1,245 pg/mL Folate 12.4 3.1 - 17.5 ng/mL Hemoglobin A1c Result Value Ref Range Hemoglobin A1C 6.7 (H) 4.2 - 5.6 % Estimated Average Glucose 146 (H) 74 - 114 mg/dL Lactic Acid, Plasma Result Value Ref Range Lactic Acid 1.1 0.6 - 2.0 mmol/L CBC Auto Differential Result Value Ref Range WBC 11.29 (H) 4.50 - 11.00 K/mcL RBC 2.90 (L) 4.50 - 5.90 M/mcL Hemoglobin 8.4 (L) 13.5 - 17.5 g/dL Hematocrit 25.8 (L) 41.0 - 53.0 % MCV 89.0 80.0 - 100.0 fL MCH 29.0 26.0 - 34.0 pg MCHC 32.6 31.0 - 37.0 g/dL Platelets 316 150 - 400 K/mcL RDW - CV 13.4 11.6 - 14.8 % MPV 8.5 (L) 9.4 - 12.4 fL Neutrophils 67.8 % Lymphocytes 17.0 % Monocytes 10.1 % Eosinophils 3.7 % Basophils 0.2 % IG Percent 1.20 % Neutrophils Abs 7.65 (H) 1.70 - 7.00 K/mcL Lymphocytes Abs 1.92 0.90 - 4.00 K/mcL Monocytes Abs 1.14 (H) 0.30 - 0.90 K/mcL Eosinophils Abs 0.42 0.00 - 0.50 K/mcL Basophils Abs 0.02 0.00 - 0.30 K/mcL IG Absolute 0.14 0.00 - 0.30 K/mcL Nucleated RBC 0.0 % Nucleated RBC Abs 0.00 0.00 - 0.00 K/mcL US Doppler ankle/brachial index XR Foot Left 3+ Views (Standard) Final Result 1. Suspected shallow soft tissue ulceration of the heel with forefoot soft tissue swelling. No radiographic evidence of osteomyelitis of the calcaneus. 2. Chronic appearing erosion along the lateral aspect of the 2nd metatarsal head new from 07/26/2020. If there is a nearby soft tissue ulceration osteomyelitis is not excluded. Alternatively, this raises the possibility of gout or less likely an inflammatory arthritis. Workstation ID: [id number] MR Foot Left Without Contrast (Results Pending) MR Heel Left Without Contrast (Results Pending) Ultrasound duplex arterial legs bilat (Results Pending) Procedures An order for CPAP has been placed to start on 01/09/2022, for a diagnosis of LORENA (obstructive sleep apnea). MDM 61-year-old male presents today with concern for worsening left foot infection. Patient has a significant history for right BKA, recent stroke with reported bilateral residual weakness. He states he believes he is on Augmentin for reported ESBL infection to a another wound on the left foot. There is concern for worsening infection and was advised to come here from a shelter facility. Patient states otherwise he feels well no nausea vomiting fevers or chills. States he does not have muchsensation in the foot so not able to decide if having more pain than usual. On exam is awake alert, respirations regular easy. Lung sounds good auscultation. Right BKA noted. Left foot, please see attached photo, there is necrotic heel wound that is boggy surrounding erythema and foul-smelling. Area is warm to touch. +2 DP PT pulse to the left foot. He is nontoxic-appearing with stable vital signs. Discussed with ED pharmacist regarding weight management recommended Vanco Flagyl cefazolin. White count 11.29 CRP 28.4, sed rate 74, BMP shows glucose 199 creatinine 1.30 X-ray left foot: 1. Suspected shallow soft tissue ulceration of the heel with forefoot soft tissue swelling. No radiographic evidence of osteomyelitis of the calcaneus. 2. Chronic appearing erosion along the lateral aspect of the 2nd metatarsal head new from 07/26/2020. If there is a nearby soft tissue ulceration osteomyelitis is not excluded. Alternatively, this raises the possibility of gout or less likely an inflammatory arthritis. Podiatry consulted they are aware the patient and on their way to see the patient. Patient will be admitted to medicine for further medical management and evaluation . Clinical Impression: 1. Diabetic foot infection (HCC) 2. Wound infection ED Disposition ED Disposition Hospitalize Condition -- Comment Reason for inpatient over two midnights: IV atb, podiatry consult Follow-up Information Follow-up information has not been specified. Contact information for after-discharge care Follow-up information has not been specified. New Prescriptions This print group is not available in inpatient encounters. Please contact a computer system validation specialist. Jef Barclay CNP 01/09/22 [id number] [employer] Work Phone: 1(586) 504-157903-08-2022 Note* ED Attestation Note - Garth Torrez MD - 01/09/2022 1:41 PM EST ED Attestation This visit was performed by both a physician and an APC. I personally evaluated and examined the patient. I performed all aspects of the MDM as documented. 61-year-old male with history of peripheral vascular disease, and chronic foot ulcers presents ED with worsening foot ulcer and necrotic wound of the left foot. Patient states that his home health aide noted that today, he contacted his np who recommended he come to the ER. Denies any severe pain. Denies any fevers or chills. On my evaluation, patient appears in no acute distress. Hemodynamically within normal limits. Heartis regular rate and sinus rhythm. Lungs are clear to auscultation bilaterally. Abdomen is soft, nontender, nondistended. Neurologically patient is awake, alert oriented x3, and nonfocal. Examination of his left foot shows necrotic lesion on the heel of the foot, no drainage. At this time, x-ray of the foot is pending. Blood work obtained. He will be treated with IV antibiotics admitted. Podiatry is consulted. He will be admitted stable condition. XR Foot Left 3+ Views (Standard) (Results Pending) Recent Results (from the past 12 hour(s)) CBC Auto Differential Collection Time: 01/09/22 1:10 PM Result Value Ref Range WBC 11.29 (H) 4.50 - 11.00 K/mcL RBC 2.90 (L) 4.50 - 5.90 M/mcL Hemoglobin 8.4 (L) 13.5 - 17.5 g/dL Hematocrit 25.8 (L) 41.0 - 53.0 % MCV 89.0 80.0 - 100.0 fL MCH 29.0 26.0 - 34.0 pg MCHC 32.6 31.0 - 37.0 g/dL Platelets 316 150 - 400 K/mcL RDW - CV 13.4 11.6 - 14.8 % MPV 8.5 (L) 9.4 - 12.4 fL Neutrophils 67.8 % Lymphocytes 17.0 % Monocytes 10.1 % Eosinophils 3.7 % Basophils 0.2 % IG Percent 1.20 % Neutrophils Abs 7.65 (H) 1.70 - 7.00 K/mcL Lymphocytes Abs 1.92 0.90 - 4.00 K/mcL Monocytes Abs 1.14 (H) 0.30 - 0.90 K/mcL Eosinophils Abs 0.42 0.00 - 0.50 K/mcL Basophils Abs 0.02 0.00 - 0.30 K/mcL IG Absolute 0.14 0.00 - 0.30 K/mcL Nucleated RBC 0.0 % Nucleated RBC Abs 0.00 0.00 - 0.00 K/mcL . [facility] Work Phone: [phone] 554-146403-08-2022 Emergency department Triage note* Eden Morillo RN - 01/09/2022 1:01 PM EST Patient sent from [facility] rehab/nursing facility for wound check, foot ulcer to left heel, pt see's Dr Calvlilo - [facility] and [place] [facility] [place]. Per transfer note the pt has been on Augmentin for ESBL in wound. Black necrotic wound to left heel, doppler PT and DP pulses. [id number] Emergency department Note* Eden Morillo RN - 01/09/2022 1:00 PM EST Bed: 48 Expected date: Expected time: Means of arrival: Comments: Amwaqar Jerez GB, Foot Ulcer, Torrez [id number] History of Present illness Narrative* Isabelle Tapia RN - 10/15/2021 12:56 PM EST Pt is set up with [facility] for 1330 to return to [facility]. CMN filled out and tubed to DENISE Davis to 223. No other CM needs. * Carol King RN - 10/15/2021 9:30 AM EST Arrived from [facility]. CO urinary retention. ECF removed todd and reinserted but when inflated balloon patient complained of severe pain. Catheter in place but balloon not inflated. * Magdalena Nuno DO - 10/15/2021 9:22 AM EST Images from the original note were not included. Patient Name: Mikayla Pappas Initial Evaluation: 10/15/2021 : 1960 Patient's PCP: Greyson Dominguez MD Emergency Physician: Magdalena Nuno DO History of Present Illness Chief Complaint Patient presents with Urinary Retention Mikayla Pappas is a 61 y.o. male with PMHx as documented below presenting to [facility] for evaluation of a catheter complication. The patient states that he has had his catheterin for about a year now. He is at [facility] currently for rehab after a stroke. He gets his catheter exchanged every month or so. Today, he was complaining to nursing staff that his catheter was irritating him and they took out his old one. After inserting the new one and inflating the cuff, he complained of excruciating pain. He still states that the catheter continued to drain, but they did pull it out. However, he was sent here to evaluate this pain that he experienced during catheter i nsertion. Denies any abdominal pain, fevers, chills. He states he did undergo a procedure to repaira penile obstruction about a year ago, but he has had no issues since. A complete 11 system ROS was performed (constitutional, eyes, ENMT, CV, respiratory, GI, , MSK, skin, neurological, psychiatric) and was negative aside from the pertinent positive and negatives noted in the HPI. Previous History There is no problem list on file for this patient. Past Surgical History: Procedure Laterality Date AMPUTATION Right CARDIAC SURGERY Current Outpatient Medications Medication Instructions cephalexin (KEFLEX) 500 mg, oral, 4 times daily Allergies Allergen Reactions Phenytoin Sodium Hives No family history on file. Social History Tobacco Use Smoking status: Never Smoker Smokeless tobacco: Never Used Substance Use Topics Alcohol use: Yes Alcohol/week: 1.0 standard drink Types: 1 Glasses of wine per week Comment: occasionally Drug use: Never Physical Exam Patient Vitals for the past 24 hrs: BP Temp Pulse Resp SpO2 Height Weight 10/15/21 1030 80 23 98 % 10/15/21 0947 100 % 10/15/21 0945 146/75 81 15 99 % 10/15/21 0944 36.6 C (97.9 F) 83 18 100 % 1.727 m (68 ) 80.3 kg (177 lb) Physical Exam Vitals and nursing note reviewed. Constitutional: General: He is awake. He is not in acute distress. Appearance: Normal appearance. HENT: Head: Normocephalic and atraumatic. Right Ear: External ear normal. Left Ear: External ear normal. Nose: Nose normal. Eyes: General: Lids are normal. Extraocular Movements: Extraocular movements intact. Neck: Trachea: Trachea normal. Cardiovascular: Rate and Rhythm: Normal rate and regular rhythm. Pulmonary: Effort: No accessory muscle usage, respiratory distress or retractions. Abdominal: General: Abdomen is flat. Palpations: Abdomen is soft. Tenderness: There is no abdominal tenderness. Genitourinary: Comments: Blood at urethral meatus Musculoskeletal: Cervical back: Full passive range of motion without pain. Skin: General: Skin is warm and dry. Neurological: General: No focal deficit present. Mental Status: He is alert. Cranial Nerves: Cranial nerves are intact. Sensory: Sensation is intact. Motor: Motor function is intact. Psychiatric: Attention and Perception: Attention normal. Speech: Speech normal. Results The following labs and imaging have been ordered and reviewed: HEME/COAGS/TYPE Lab Results Component Value Date RBC 3.26 (L) 10/15/2021 HGB 9.5 (L) 10/15/2021 HCT 27.8 (L) 10/15/2021 MCV 85.3 10/15/2021 PLT 330 10/15/2021 RENAL/LYTES Lab Results Component Value Date NA 136 10/15/2021 K 4.4 10/15/2021 CL 98 10/15/2021 ANIONGAP 6 10/15/2021 BUN 35 (H) 10/15/2021 CREATININE 0.97 10/15/2021 EGFR 84 10/15/2021 GLUCOSE 78 10/15/2021 CALCIUM 10.1 10/15/2021 PROTUR 100 (A) 10/15/2021 GLUCOSEUR Normal 10/15/2021 KETONESU Negative 10/15/2021 INFECTIOUS/INFLAMMATORY Lab Results Component Value Date WBC 11.6 (H) 10/15/2021 NEUTROABS 8.40 (H) 10/15/2021 NEUTROPCT 72.8 (H) 10/15/2021 LYMPHOPCT 14.7 (L) 10/15/2021 ROSA ISELA 7.0 10/15/2021 WBCU 32 (H) 10/15/2021 LEUKOCYTESU 250 (A) 10/15/2021 NITRITEU Negative 10/15/2021 BACTERIAU Rare (A) 10/15/2021 URBLD Negative 10/15/2021 RBCU 8 (H) 10/15/2021 CARDIOPULMONARY No results found for: HSTROPI, BNP, DDIMER, FIO2, PHART, HNF3IDV, PO2ART, VPC6GLU, EVS7RFU, BASEXART, SO2ART, COHBART, OXYHBART, PHVEN, HIV0KWY, PO2VEN, TCO2V, YJF6QDJ, BEVEN, K5AENZRH, LACTATE GI Lab Results Component Value Date UROBILINOGEN Normal 10/15/2021 BILIRUBINU Negative 10/15/2021 TOX/PSYCH No results found for: ETOH, AMPHETAMINE, BARBSCRNUR, BENZOURQL, DOAUR, OXYCODONE MSK/ENDO/RHEUM No results found for: CK, TSH OB No orders to display ED Course and Medical Decision Making Patient was a 61-year-old male with chronic indwelling Todd catheter who presented to the emergency department today after nursing at his rehab facility was unable to replace his previous Todd catheter. He had stable vital signs and, on exam, was no acute distress resting comfortably in bed. There was no Todd catheter in place at time of my exam, but on chaperoned genitourinary exam with Jeff Hunt, patient had blood at the urethral meatus, but no other acute findings. No significant abdominal pain noted. Patient's blood work showed no BAILEE. Only showed his chronic anemia. Urinalysis did show signs of infection and we will send him home with antibiotics. Ultimately, the patient's catheterwas replaced and did have 1 L of urine empty. Patient stable and comfortable for discharge back to [facility] at this time. Recommend f/u in 2 days for re-check. Medications lidocaine 2 % mucosal jelly (11 mL urethral Given 10/15/21 1020) ketorolac (TORADOL) injection 15 mg (15 mg intravenous Given 10/15/21 1018) Clinical Impressions as of Oct 15 1119 Complication of Todd catheter, initial encounter ([facility]) Chronic anemia Urinary tract infection associated with indwelling urethral catheter, initial encounter ([facility]) Disposition Discharge ED Prescriptions Medication Sig Dispense Start Date End Date Auth. Provider cephalexin (KEFLEX) 500 mg capsule Take 1 capsule (500 mg total) by mouth 4 (four) times a day for 7 days. 28 each 10/15/2021 10/22/2021 DO Magdalena Benitez DO 10/15/21 1123 documented in this encounterP[facility] [id number] History of Present illness Narrative* Paul Gaona DO - 07/25/2021 10:00 AM EDT Chief complaint: Status post right lower extremity below the knee amputation. 60-year-old male with infection of the right foot leading to below the knee amputation. Had an opendisplaced fracture of the right calcaneus. Patient underwent right below the knee amputation. He tolerated procedure well. He has been extended care facility. He presents for postoperative check. Patient's been doing well. Anticipating prosthetic fitting in the near future. He has been utilizing a stump health and safety specialist. He states he had a MRSA infection of the right stump but no signs of infection at present. Patient does have a new neuropathic ulcer plantar aspect of the left forefoot. This is under the fifth metatarsal head. Approximately 1 x 1 cm wound with approximately 1 mm of depth. It seems to be confined to the skin and dermis. No obvious extension. No erythema of the forefoot. No drainageor odor. Patient has an established relationship with Dr. Calvillo. Patient's had multiple surgeries performed by him in the past. We have asked that he return to see him as soon as possible for reevaluation of this left foot wound Patient's right amputation site is healing well. Minimal scabbing at the medial aspect. Full extension of the knee. Good straight leg raise. No erythema no induration. Palpable femoral and popliteal pulse on the right. Patient has a palpable dorsalis pedis and posterior tibial pulse on the left confirmed with Doppler. Patient's left foot does have foot drop. Patient has impaired sensation of the left foot and some chronic edema of the left ankle. Patient reports some phantom pain right lower extremity otherwise pain well controlled. Impression: Status post right below the knee amputation secondary to open displaced calcaneal fracture and gangrene. Patient is healing well. Okay to transition to prosthesis. Continue stump health and safety specialist. New neuropathic ulcer left plantar forefoot lateral aspect at the fifth metatarsal head. No signs of infection. Ulcer appears to be confined to the dermis. Will add antibiotic ointment, nonadherent dressing. Cover with gauze. Offloading at all times. Patient has established podiatry relationship with Dr. Calvillo. We will make a referral to his office for the patient to be seen as soon as possible. Is imperative that we maintain skin integrity left foot so he is able to move ahead with prosthetic fitting on the right. He does have a significant foot drop and plantar flexion deformity of his left foot. I am not sure how much this will be able to be improved. This may need shoe modifications. Hopefully podiatry will be able to assist with this as well. Patient should have adequate perfusion forhealing of the left foot based on his physical examination. Previous ankle-brachial indices were normal on the left with slightly reduced digital index. Patient had previous CT angiogram that demonstrated some atherosclerotic vascular disease however three-vessel runoff is preserved in both right and left lower extremity. [facility] DIS[facility] SUMMARY PATIENT NAME:MIKAYLA PAPPAS AGE: 60 Years SEX: Male PHONE:[phone] DOS: 07/11/2021 01:41:00 : 1960 ATTENDING PHYSICIAN:Himanshu Samuel MD PCP: Marilin Gracia DO CHIEF COMPLAINT: URETHRA PAIN Allergies Dilantin (Rash) Problems Active CVA (cerebral vascular accident) DM (diabetes mellitus) Hypercholesteremia DISCHARGE DIAGNOSIS: DISCHARGE INSTRUCTIONS: Todd Catheter Care, Adult ED PHYSICIAN DOCUMENTATION: DISPOSITION: Time of Departure From ER 07/11/2021 04:47 Discharge/Transfer From ER Nursing care facility 04 MEDICATION LISTS: CURRENT MEDICATION LIST ascorbic acid (Vitamin C 500 mg oral tablet) 1 Tab(s) By Mouth once a day. aspirin (aspirin 81 mg oral tablet, chewable) 1 Tab(s) By Mouth once a day. new med. atorvastatin (atorvastatin 80 mg oral tablet) 1 Tab(s) By Mouth Bedtime. citalopram (citalopram 20 mg oral tablet) 1 Tab(s) By Mouth once a day for 30 Days. Refills: 0. cyanocobalamin (cyanocobalamin 500 mcg oral tablet) 1 Tab(s) By Mouth once a day. doxazosin (doxazosin 4 mg oral tablet) 1 Tab(s) By Mouth once a day. gabapentin (gabapentin 300 mg oral capsule) 1 Capsule By Mouth Bedtime. insulin glargine (insulin glargine 100 unit/ml subcutaneous solution) 20 Unit(s) Subcutaneous Bedtime., Do NOT mix with any other insulin product insulin lispro (Insulin Lispro KwikPen 100 units/mL injectable solution) ac TID Sliding Scale 141-180= 2 units 181- 220= 4 units 221-260= 6 units 261- 300= 8 units. MetFORMIN-SitaGLIPtin (Janumet 50 mg/1000 mg oral tablet) 1 Tab(s) By Mouth once a day. oxybutynin (oxybutynin 10 mg oral tablet, extended release) 1 Tab(s) By Mouth once a day. MEDICATIONS GIVEN DURING MEDICAL VISIT hydromorphone 1 mg last dose given on 07/11/2021 at 02:18 Route: IV Push Administer over 2-5 minutes (for IVP) ondansetron 4 mg last dose given on 07/11/2021 at 02:18 Route: IV Push Administer over 2 minutes (for IV Push) lidocaine topical 1 Appl last dose given on 07/11/2021 at 02:18 Route: Topical LAB RESULTS: LABORATORY TESTS: Pending Lab Result(s): Date Order Results 07/11/2021 02:39 Culture Urine + Susceptibility Ordered Abnormal Lab Result(s): Date Order Results 07/11/2021 02:32 Appearance Urine POCT A Cloudy 07/11/2021 02:32 Glucose Urine POCT A 500MG/DL 07/11/2021 02:32 Leukocyte Esterase Urine POCT A Large 07/11/2021 02:32 Nitrite Urine POCT A Positive 07/11/2021 02:32 Protein Urine POCT A >=300 07/11/2021 02:32 Blood Urine POCT A Trace-in RADIOLOGY: FOLLOW UP: FOLLOW-UP APPOINTMENTS: Provider: Specialty: Address: Date: [facility] [address] [address] (1) 1 to 2 days Comment: Call for an AppointmentMount [facility] History of Present illness Narrative* Renae Charles LPN - 06/12/2021 9:40 AM EDT Shabana removed from (L) stump. Suture line healing well, edges well approximated. Suture line cleansed with H2o2, tinc of surendra applied, steri-strips applied. Drsg applied over S/L, wrapped with jose luis, spencer wrap applied. Tolerated well. (R) foot scrubbed between all toes with large amt foul smellingmatter removed. * Paul Gaona DO - 06/12/2021 9:40 AM EDT Chief complaint: Right below the knee amputation Left forefoot neuropathic ulcer Longstanding diabetes History of CVA with left sided weakness Foot drop left foot with flexion contracture 60-year-old male with longstanding diabetes and previous amputation of the right lower extremity below the knee. Patient presents for postoperative check. Surgical wound is healing well. [place] to be removed today. There is no erythema no induration. Good motion of the right knee. Patient's pain is well controlled. Patient still residing in extended care facility. Patient has remote history of CVA with left hemiplegia. Patient has a neuropathy of the left lower extremity with left foot drop and contracture of the left ankle. Patient has a small neuropathic ulcer on the lateral aspect of his left forefoot. No signs of infection. No erythema no induration. Patient has longstanding sensory deficit. Patient states his hemoglobin A1c is well controlled. Patient receiving physical therapy. Physical examination Patient's right limb is healing well. Good motion of his right knee. Good extension of the right knee. [place] to be removed today. The suture line intact no drainage. No erythema. No tenderness or mass-effect noted. Left foot has palpable dorsalis pedis and weaker posterior tibial pulses. Pulses confirmed with triphasic waveforms by Doppler. Patient has longstanding neuropathy of his left lower extremity with some foot drop on the left andloss of ankle extension by about 30 to 40 degrees. Patient is neuropathic ulcer on the plantar aspect of his left forefoot lateral aspect is approximately 1 x 1 cm no to significant depth noted. No erythema no induration. This is currently being treated with padding and pressure relief. Impression: Status post right below the knee amputation, stable. Okay to proceed with stump health and safety specialist and prosthetic fitting. Continue physical therapy. Continue range of motion. Continue with tight blood glucose control. Neuropathic ulcer plantar aspect of the left lateral forefoot. Podiatry reevaluation. Patient previously followed by np while hospitalized. Patient has established np to Len. Which ever works out best is fine with me for close monitoring and offloading of his left forefoot. Shoe mo difications. Patient will require some increased hygiene between the webspaces of the toes to prevent any additional skin compromise. Nursing will contact extended-care facility Follow-up 6 weeks to check on status of healing. No plans for additional testing at this time. documented in this encounterPal[facility]06-[facility] SUMMARY PATIENT NAME:MIKAYLA PAPPAS AGE: 60 Years SEX: Male PHONE:[phone] DOS: 04/24/2021 12:37:00 : 1960 ATTENDING PHYSICIAN:Seun Parmar DO PCP: Greyson Dominguez MD CHIEF COMPLAINT: constipation Allergies Dilantin (Rash) Problems Active DM (diabetes mellitus) Hypercholesteremia DISCHARGE DIAGNOSIS: DISCHARGE INSTRUCTIONS: Constipation, Adult, [id number] ED PHYSICIAN DOCUMENTATION: DISPOSITION: Time of Departure From ER 04/24/2021 19:26 Discharge/Transfer From ER Nursing care facility 04 MEDICATION LISTS: CURRENT MEDICATION LIST ascorbic acid (Vitamin C 500 mg oral tablet) 1 Tab(s) By Mouth once a day. aspirin (aspirin 81 mg oral tablet, chewable) 1 Tab(s) By Mouth once a day. new med. atorvastatin (atorvastatin 80 mg oral tablet) 1 Tab(s) By Mouth Bedtime. citalopram (citalopram 20 mg oral tablet) 1 Tab(s) By Mouth once a day for 30 Days. Refills: 0. cyanocobalamin (cyanocobalamin 500 mcg oral tablet) 1 Tab(s) By Mouth once a day. doxazosin (doxazosin 4 mg oral tablet) 1 Tab(s) By Mouth once a day. gabapentin (gabapentin 300 mg oral capsule) 1 Capsule By Mouth Bedtime. insulin glargine (insulin glargine 100 unit/ml subcutaneous solution) 20 Unit(s) Subcutaneous Bedtime., Do NOT mix with any other insulin product insulin lispro (Insulin Lispro KwikPen 100 units/mL injectable solution) ac TID Sliding Scale 141-180= 2 units 181- 220= 4 units 221-260= 6 units 261- 300= 8 units. MetFORMIN-SitaGLIPtin (Janumet 50 mg/1000 mg oral tablet) 1 Tab(s) By Mouth once a day. oxybutynin (oxybutynin 10 mg oral tablet, extended release) 1 Tab(s) By Mouth once a day. polyethylene glycol 3350 (MiraLax oral powder for reconstitution) 17 gram By Mouth once a day for 7Days. Refills: 0. MEDICATIONS GIVEN DURING MEDICAL VISIT morphine 4 mg last dose given on 04/24/2021 at 13:39 Route: IV Push Sodium Chloride 0.9% 1,000 mL last dose given on 04/24/2021 at 13:39 Route: Intravenous Bolus, Infuse over 60 mins LAB RESULTS: LABORATORY TESTS: Abnormal Lab Result(s): Date Order Results 04/24/2021 13:44 WBC Count H 13.7 thou/mcL 04/24/2021 13:44 Red Blood Cell Count L 3.34 million/mcL 04/24/2021 13:44 Hemoglobin L 10.2 gm/dL 04/24/2021 13:44 Hematocrit L 30.0 % 04/24/2021 13:44 Neutrophil Absolute H 11.30 thou/mcL 04/24/2021 13:44 Monocyte Absolute H 1.20 thou/mcL 04/24/2021 13:44 Neutrophil H 82.4 % 04/24/2021 13:44 Lymphocyte L 8.2 % 04/24/2021 13:44 Sodium Level L 135 mMol/L 04/24/2021 13:44 BUN H 28 mg/dL 04/24/2021 13:44 Glucose Level H 153 mg/dL 04/24/2021 13:44 Alkaline Phosphatase H 95 Units/L 04/24/2021 13:44 AST/SGOT L 12 Units/L 04/24/2021 18:30 Blood Urine A 10/UL 04/24/2021 18:30 Protein Urine A 100MG/DL 04/24/2021 18:30 Leukocyte Esterase Urine A 500/UL 04/24/2021 18:30 WBC Urine H 48 /hpf 04/24/2021 18:30 RBC Urine H 10 /hpf 04/24/2021 18:30 Bacteria Urine A MODERATE 04/24/2021 18:30 Mucous Urine A RARE RADIOLOGY: RADIOLOGY RESULT(S) (Please contact Medical Records office for further information): 04/24/2021 15:41 CT Abd and Pelvis w Contrast EXAMINATION TYPE: CT Abd and Pelvis w Contrast DATE OF EXAM ORDERED: 04/24/2021 3:56 PMHISTORY: Abdominal and Pelvic Pain,COMPARISON: 10/27/2020TECHNIQUE: Images were acquired with contrast from the lung bases through the pelvis. Axial coronal images were acquired.FINDINGS: The lung bases are clear.The liver, spleen, gallbladder, pancreas, and adrenal glands are grossly unremarkable.There is a 7.5cm cyst extending from the upper pole of the right kidney. No renal stones or obstruction of the ureters.There is large amount of stool throughout the colon including the rectum. The appendix is normal in size.There is a Todd catheter within the urinary bladder. Wall of the urinary bladder appears thickened.There is compression of the superior endplate of T12 by 20%. This is a new finding.IMPRESSION:1. There is a large amount stool throughout colon findings in the rectum suggestive of impaction2. Thickening of the wall of the urinary bladder also noted previously. This can be related to infection or tumor.3. There is a compression fracture at T12 which has developed since 10/27/2020Msjosemanuel Zamora thanks you for the opportunity to care for your patient. Workstation ID: [id number] FOLLOW UP: FOLLOW-UP APPOINTMENTS: Provider: Specialty: Address: Date: Greyson Dominguez MD [facility] [address] [place], [place] [id number] (1) [facility] History of Present illness Narrative* Yanick Umanzor MD - 01/11/2021 11:00 AM EST Mikayla Pappas, IS A 60 y.o., male Decreased hearing right ear. History of cerumen impactions, feels same Review of Systems Constitutional: Negative. Past Medical History: Diagnosis Date Diabetes mellitus Hypotension Orthostatic hypotension Stroke (CMS/HCC) Olttm-Maugdnptu-Hliwy syndrome History reviewed. No pertinent surgical history. No family history on file. Social History Socioeconomic History Marital status: Spouse name: Not on file Number of children: Not on file Years of education: Not on file Highest education level: Not on file Occupational History Not on file Tobacco Use Smoking status: Not on file Substance and Sexual Activity Alcohol use: Not on file Drug use: Not on file Sexual activity: Not on file Other Topics Concern Not on file Social History Narrative Not on file Social Determinants of Health Financial Resource Strain: Difficulty of Paying Living Expenses: Not on file Food Insecurity: Worried About Running Out of Food in the Last Year: Not on file Ran Out of Food in the Last Year: Not on file Transportation Needs: Lack of Transportation (Medical): Not on file Lack of Transportation (Non-Medical): Not on file Physical Activity: Days of Exercise per Week: Not on file Minutes of Exercise per Session: Not on file Stress: Feeling of Stress : Not on file Social Connections: Frequency of Communication with Friends and Family: Not on file Frequency of Social Gatherings with Friends and Family: Not on file Attends Confucianist Services: Not on file Active Member of Clubs or Organizations: Not on file Attends Club or Organization Meetings: Not on file Marital Status: Not on file Intimate Partner Violence: Fear of Current or Ex-Partner: Not on file Emotionally Abused: Not on file Physically Abused: Not on file Sexually Abused: Not on file Current Outpatient Medications Medication Sig Dispense Refill aspirin 81 mg chewable tablet 81 mg. atorvastatin (Lipitor) 80 mg tablet citalopram (CeleXA) 40 mg tablet doxazosin (Cardura) 4 mg tablet Take 4 mg by mouth 1 (one) time each day. gabapentin (Neurontin) 300 mg capsule glipiZIDE XL (Glucotrol XL) 10 mg 24 hr tablet HYDROcodone-acetaminophen (Bayamon) 5-325 mg tablet hydrOXYzine HCL (Atarax) 25 mg tablet insulin glargine (Basaglar KwikPen U-100 Insulin) 100 unit/mL (3 mL) injection Inject 20 Units under the skin 1 (one) time each day. Janumet 50-1,000 mg tablet midodrine (Proamatine) 5 mg tablet oxybutynin XL (Ditropan-XL) 10 mg 24 hr tablet rosuvastatin (Crestor) 40 mg tablet Take 40 mg by mouth. No current facility-administered medications for this visit. Allergies Allergen Reactions Phenytoin Low blood pressure, Rash and Unknown Nursing notes reviewed. Physical Exam Constitutional: Appearance: Normal appearance. HENT: Right Ear: Tympanic membrane and ear canal normal. There is impacted cerumen. Left Ear: Tympanic membrane and ear canal normal. Neurological: Mental Status: He is alert. Visit Vitals BP (!) 77/49 Pulse 94 Temp 36.8 C (98.3 F) Resp 18 Wt 81.6 kg (180 lb) SpO2 99% No results found for this or any previous visit (from the past 24 hour(s)). No notes on file Assessment/Plan Ear flushed, tympanic membrane normal after flushing. Recheck as needed Diagnoses and all orders for this visit: Impacted cerumen of right ear - Ear Cerumen Removal * Anneliese Walter, ALLA - 01/11/2021 11:00 AM EST Rt ear irrigated with half warm water/half peroxide, 200 ml used with positive results, pt tolerated well * Anneliese Walter LPN - 01/11/2021 11:00 AM EST Pt c/o hearing loss in the rt ear x 1 1/2 week, pt pt states hx of cerumen Impaction [facility] Instructions* Patient Instructions* Yanick Umanzor MD - 01/11/2021 11:00 AM EST Patient Education Cerumen Impaction (Earwax; Ear Impaction; Ear Blockage) Pronounced: damian-Dereje leon-RAJINDER-jose Definition Cerumen is the soft yellow wax made by glands in your ear canal. It is more commonly known as earwax. Cerumen impaction is a buildup of earwax that becomes wedged in, blocking the ear canal. The Ear Canal Copyright [employer] Causes Cerumen impaction is usually caused by: An inability of the ear to naturally clear itself of cerumen due to hardening Putting objects into your ears that push the cerumen deeper into the ear canal Risk Factors Cerumen impaction is more common in older adults. It can cause hearing loss. Other factors that may increase your chance of cerumen impaction include: Trying to remove cerumen with a cotton-tipped swab A twisted, narrow, or complicated ear canal Ears that overproduce or make thick cerumen Dense hair growth in the ear canal Hearing aid or ear plug use Skin conditions such as eczema or seborra Intellectual disability Symptoms Symptoms may include: Itchy ear Pain in the ear Ringing in the ear tinnitus Hearing loss Hearing aid feedback or malfunction Diagnosis You will be asked about your symptoms and medical history. A physical exam will be done. An ear exam will be done to look for impacted cerumen. Treatment Treatment involves removal of the earwax from the ear canal. Cerumen can be removed by: Using one of several instruments, including: ? Curette This is a surgical instrument shaped like a scoop. ? Suction When the cerumen is loosened, the earwax will be vacuumed. Flushing The impacted cerumen may be rinsed using flushing equipment. Ceruminolytic agents A ceruminolytic agent may be prescribed. This is a liquid- like solution used in the ear to soften the earwax and ease removal. Earwax moves out of your ear naturally. Earwax should not be removed by you. In fact, continuously trying to clean your ear of cerumen by using a cotton swab, for example, can damage your ear. By trying to remove earwax, you can: Damage your eardrum the membrane that vibrates and transmits sound to the middle ear Make yourself more prone to otitis externa an infection or inflammation of the skin that lines the ear canal Injure the ear canal Cause the cerumen to become more impacted and more difficult to remove Prevention To help reduce your chance of cerumen impaction: Do not clean your ears with anything more than a soapy washcloth on the outer rim of your ear. Do not use cotton-tipped swabs to clean anywhere inside your ears. Use medications as advised by your doctor to help prevent the buildup of earwax. If you are concerned about earwax, see your doctor. Do not attempt to remove the earwax by yourself. Schedule regular visits to remove earwax buildup as advised by your doctor. Last Reviewed: July 2018 [facility] [place] Rafi Brennan MD FAAP Updated: 02/26/2020 [facility] [place] Education Discharge Instructions for Hypotension You have had abnormally low blood pressure. It can cause fainting, lightheadedness, weakness, and confusion. Your care team will help to find a cause. Steps to Take Home Care Your doctor may ask you to track your blood pressure at home. Track any symptoms and note what was happening when they occurred. Learn and avoid triggers that cause symptoms. These may include: Standing for long periods of time Not drinking enough fluids Standing up too quickly Upsetting or scary situations Your doctor may offer support tools. This may include an abdominal binder or compression stockings.They can help to improve the return of blood to the heart. Make sure to sit or lie down if you have lightheadedness or weakness. Diet Some food choices can affect your blood pressure. Steps that may help include: Drink plenty of fluids. Water is a good choice, but you may also include sports drinks. Increasing salt intake may help. Talk to your doctor before increasing salt intake. Avoid drinking alcohol. Eating small meals throughout the day. Try low-carbohydrate meals to avoid low blood pressure after eating. Medications Your current medicine may need to be adjusted. Other medicine may be needed if your blood pressure drops too low. When taking any medicine: Take your medicine as directed. Do not change the amount or the schedule. Do not stop taking prescription medicine without talking to your doctor. Do not share prescription medicine. Ask what results and side effects to expect. Report them to your doctor. Some medicine can be dangerous when mixed. Talk to a doctor or pharmacist if you are taking more than one medicine. This includes vwws-pyy-wlahexl products and supplements. Plan ahead for refills so you don t run out. Follow-up Your blood pressure will need to be checked again. Treatment may also need to be changed. It is important to go to all recommended appointments. Call Your Doctor If Any of the Following Occur Contact your doctor if your recovery is not going as you expect or you have problems such as: Symptom worsens or increases in frequency New symptoms arise Call for medical help right away if you experience signs of shock such as: Significant light-headedness or fainting Sleepiness Confusion Cold, sweaty skin Weak, rapid pulse Rapid breathing If you think you have an emergency, call for emergency medical services right away. Last Reviewed: September 2018 Rafi Brennan MD, FAAP Updated: 02/19/2019 [employer] [facility] Future Appointments Appointment Date:09/30/2023 01:00:00 PM Scheduled Provider: [facility] Appointment Type:ONC Office Visit New 60 (FT) Future Scheduled Tests Radiology* US Retroperitoneal Complete 09/06/[address] [facility] Future Appointments Appointment Date:10/14/2023 02:30:00 PM Scheduled Provider: [facility] Type:ONC Video Visit 30 (FT) Appointment Date:11/21/2023 09:30:00 AM Scheduled Provider:Victorino GAMEZ, Jolene Delarosa Location:[facility] Appointment Type:URO New Patient Future Scheduled Tests Radiology* US Retroperitoneal Complete 09/06/[address] [facility] Future Appointments Appointment Date:10/29/2023 10:15:00 AM Scheduled Provider: Location:[facility] Urolog Surgical Services Appointment Type:Urology CALL PAT FT Appointment Date:11/05/2023 08:00:00 AM Scheduled Provider: Location:[facility] Surgical Services Appointment Type:Urology FT Appointment Date:11/21/2023 09:30:00 AM Scheduled Provider:Jolene Gleason MD Location:[facility] Appointment Type:URO New Patient Diagnostic Tests Pending * Protein Electrophoresis 24 Hour Urine 10/15/23 * CBC w/ Auto Diff 11/11/23 * Comprehensive Metabolic Panel 11/25/23 * Lactate Dehydrogenase 11/25/23 * TARAN and PE, Serum 11/25/23 * Free K+L Lt Chains,Qn,S 11/25/23 * Immunoglobs. A/E/G/M 11/25/23 * CBC w/ Auto Diff 11/25/23 Future Scheduled Tests Radiology* US Retroperitoneal Complete 09/06/23 * XR Bone Survey Complete 11/26/[address] [facility] Future Appointments Appointment Date:11/07/2023 01:00:00 PM Scheduled [facility] Type:XR Bone Survey ([facility]) Appointment Date:11/12/2023 09:30:00 AM Scheduled Provider: Location:[facility] Urolog Surgical Services Appointment Type:Urology CALL PAT FT Appointment Date:11/19/2023 08:30:00 AM Scheduled Provider: Location:[facility] Surgical Services Appointment Type:Urology FT Appointment Date:12/04/2023 01:30:00 PM Scheduled Provider: Location[facility] Appointment Type:ONC Injection (FT) Appointment Date:12/10/2023 10:00:00 AM Scheduled Provider: Location:.[facility] Appointment Type:ONC Office Visit 30 (FT) Appointment Date:12/13/2023 09:30:00 AM Scheduled Provider:T[facility] Rubin MD [facility]:P[facility] Follow Up (FT) Appointment Date:01/01/2024 01:30:00 PM Scheduled Provider: Location:.[facility]COL[facility] Appointment Type:ONC Injection (FT) Future Scheduled Tests Radiology* US Retroperitoneal Complete 09/06/23 * XR Bone Survey Complete 11/07/[address] [facility] Future Appointments Appointment Date:11/12/2023 09:30:00 AM Scheduled Provider: Location:[facility] Urology Surgical Services Appointment Type:Urology CALL PAT FT Appointment Date:11/19/2023 08:30:00 AM Scheduled Provider: Location:[facility] Urology Surgical Services Appointment Type:Urology FT Appointment Date:12/04/2023 01:30:00 PM Scheduled Provider: Location:.[facility]COL[facility] Appointment Type:ONC Injection (FT) Appointment Date:12/10/2023 10:00:00 AM Scheduled Provider: Location:.[facility]COL[facility] Appointment Type:ONC Office Visit 30 (FT) Appointment Date:12/13/2023 09:30:00 AM Scheduled Provider:Tanya Rubin MD Location[facility] Appointment Type:Pulmonary Follow Up (FT) Appointment Date:01/01/2024 01:30:00 PM Scheduled Provider: Location:.[facility]COL[facility] Appointment Type:ONC Injection (FT) Future Scheduled Tests Laboratory* TARAN and PE, Serum 12/04/23 * Immunoglobs. A/E/G/M 12/04/23 * Free K+L Lt Chains,Qn,S 12/04/23 * CBC w/ Auto Diff 12/04/23 * Comprehensive Metabolic Panel 12/04/23 * Lactate Dehydrogenase 12/04/23 Radiology* US Retroperitoneal Complete 09/06/[address] [facility] Future Appointments Appointment Date:12/10/2023 10:00:00 AM Scheduled Provider:Brian Perla MD Location:.ONCOLOGY Appointment Type:ONC Office Visit 30 (FT) Appointment Date:12/13/2023 09:30:00 AM Scheduled Provider:Tanya Rubin MD Location:.[facility] Appointment Type:Pulmonary Follow Up (FT) Appointment Date:01/01/2024 01:30:00 PM Scheduled Provider: Location:.[facility]COLOGY Appointment Type:ONC Injection (FT) Appointment Date:01/15/2024 09:45:00 AM Scheduled Provider:Kaden LOPES MD Location:[facility] Appointment Type:URO Office Visit Diagnostic Tests Pending * TARAN and PE, Serum 12/04/23 * Free K+L Lt Chains,Qn,S 12/04/23 * Immunoglobs. A/E/G/M 12/04/23 Future Scheduled Tests Radiology* US Retroperitoneal Complete 09/06/[address] [facility] Future Appointments Appointment Date:01/01/2024 01:30:00 PM Scheduled Provider: Location:.ONCOLOGY Appointment Type:ONC Injection (FT) Appointment Date:01/15/2024 09:45:00 AM Scheduled Provider:Kaden LOPES MD Location:[facility] Appointment Type:URO Office Visit Appointment Date:02/21/2024 09:00:00 AM Scheduled Provider:T[facility] Rubin MD [facility] Type:Pulmonary Follow Up (FT) Appointment Date:03/10/2024 10:30:00 AM Scheduled Provider:Brian Perla MD Location:.ONCOLOG[facility] Appointment Type:ONC Office Visit 30 (FT) Future Scheduled Tests Laboratory* TARAN and PE, Serum 02/25/24 * Immunoglobs. A/E/G/M 02/25/24 * Free K+L Lt Chains,Qn,S 02/25/24 * CBC w/ Auto Diff 02/25/24 * Comprehensive Metabolic Panel 02/25/24 Radiology* US Retroperitoneal Complete 09/06/[address] [facility] Future Appointments Appointment Date:01/01/2024 01:30:00 PM Scheduled Provider: Location:.ONCOLOGY Appointment Type:ONC Injection (FT) Appointment Date:01/15/2024 09:45:00 AM Scheduled Provider:Kaden LOPES MD Location:[facility] Appointment Type:URO Office Visit Appointment Date:02/21/2024 09:00:00 AM Scheduled Provider:Tanya Rubin MD Location[facility] Appointment Type:Pulmonary Follow Up (FT) Appointment Date:03/10/2024 10:30:00 AM Scheduled Provider:Brian Perla MD Location:.[facility]COL[facility] Appointment Type:ONC Office Visit 30 (FT) Diagnostic Tests Pending * Protein Electrophoresis 24 Hour Urine 12/13/23 Future Scheduled Tests Laboratory* TARAN and PE, Serum 02/25/24 * Immunoglobs. A/E/G/M 02/25/24 * Free K+L Lt Chains,Qn,S 02/25/24 * CBC w/ Auto Diff 02/25/24 * Comprehensive Metabolic Panel 02/25/24 Radiology* US Retroperitoneal Complete 09/06/[address] [facility]* Diagnosis Type 2 diabetes mellitus with right diabetic foot ulcer- Primary Diabetic autonomic neuropathy associated with type 2 diabetes mellitus Type II or unspecified type diabetes mellitus with neurological manifestations, not stated as uncontrolled Foot drop, left Other acquired deformity of ankle and foot Neuropathy Mononeuritis of unspecified site documented in this encounter [facility] note* Diagnosis Diabetic ulcer of other part of left foot associated with diabetes mellitus due to underlying condition, limited to breakdown of skin- Primary documented in this encounter [facility] note* Diagnosis Complication of Todd catheter, initial encounter ([facility])- Primary Chronic anemia Unspecified anemia Urinary tract infection associated with indwelling urethral catheter, initial encounter ([facility]) documented in this encounter [facility] note* Diagnosis Diabetic ulcer of left foot associated with diabetes mellitus of other type, with other ulcer severity, unspecified part of foot (HCC)- Primary Diabetic foot infection ([facility]) Wound infection Posttraumatic wound infection not elsewhere classified Type 2 diabetes mellitus with diabetic neuropathic arthropathy, with long-term current use of insulin ([facility]) Urinary retention Unspecified retention of urine Normocytic anemia Unspecified anemia History of CVA (cerebrovascular accident) Transient ischemic attack (TIA), and cerebral infarction without residual deficits Hyperlipidemia, unspecified hyperlipidemia type Essential hypertension Unspecified essential hypertension Depression, unspecified depression type LORENA (obstructive sleep apnea) Obstructive sleep apnea (adult) (pediatric) Osteomyelitis of left foot, unspecified type ([facility]) Anemia, unspecified type Type 2 diabetes mellitus with other specified complication, with long-term current use of insulin ([facility]) Amputation of foot ([facility]) documented in this encounter [facility] note* Diagnosis Fecal impaction ([facility])- Primary Other impaction of intestine documented in this encounter [facility] note* Diagnosis Impacted cerumen of right ear- Primary Impacted cerumen documented in this encounter [facility] note* Diagnosis Decubitus ulcer of left heel, stage 4 ([facility])- Primary documented in this encounter [facility] note* Diagnosis Decubitus ulcer of left heel, stage 4 (HCC)- Primary Diabetic ulcer of left foot associated with diabetes mellitus of other type, with other ulcer severity, unspecified part of foot (HCC) [facility]* Diagnosis Decubitus ulcer of left heel, stage 4 (HCC)- Primary Diabetic ulcer of left foot associated with diabetes mellitus of other type, with other ulcer severity, unspecified part of foot (HCC) documented in this encounter [facility] note* Diagnosis PAD (peripheral artery disease) (HCC)- Primary Unspecified peripheral vascular disease [facility]* Diagnosis Sleep apnea, unspecified type- Primary documented in this encounter [facility] note* Diagnosis Decubitus ulcer of left heel, stage 4 (HCC)- Primary Diabetic ulcer of left foot associated with diabetes mellitus of other type, with other ulcer severity, unspecified part of foot (HCC) [facility]* Diagnosis Stage IV pressure ulcer of left heel (HCC) documented in this encounter [facility] note* Diagnosis Stage IV pressure ulcer of left heel (HCC) [facility]* Diagnosis PAD (peripheral artery disease) (HCC)- Primary Unspecified peripheral vascular disease documented in this encounter [facility] note* Diagnosis Sleep apnea, unspecified type LORENA (obstructive sleep apnea) Obstructive sleep apnea (adult) (pediatric) Primary hypertension Unspecified essential hypertension Type 2 diabetes mellitus with right diabetic foot ulcer (CMS/HCC) Cerebrovascular accident (CVA), unspecified mechanism (CMS/HCC) documented in this encounter [facility] note* Diagnosis PTSD (post-traumatic stress disorder)- Primary Posttraumatic stress disorder Aggressive behavior of adult Behavior concern in adult Aggressive behavior Explosive personality disorder Chronic indwelling Todd catheter Urinary retention Unspecified retention of urine Type 2 diabetes mellitus Hypertension Unspecified essential hypertension Chronic ulcer of left foot Anemia Unspecified anemia Chronic daily headache Headache Occipital neuralgia of left side Chronic kidney disease, stage III (moderate) Chronic kidney disease, Stage III (moderate) [facility] noteNo assessment information [facility] Work Phone: Evaluation note* Diagnosis PTSD (post-traumatic stress disorder)- Primary Posttraumatic stress disorder Acute kidney injury (CMS/HCC) Chronic anemia Unspecified anemia Behavior concern Occipital neuralgia of left side Stage 3a chronic kidney disease Type 2 diabetes mellitus Personal history of transient ischemic attack (TIA), and cerebral infarction without residual deficits Neurogenic bladder Neurogenic bladder, NOS Hypertension Unspecified essential hypertension Chronic kidney disease, stage III (moderate) Chronic kidney disease, Stage III (moderate) Acute on chronic anemia Urinary tract infection, site not specified [facility] Diagnosis PAD (peripheral artery disease) ([facility])- Primary Unspecified peripheral vascular disease documented in this encounter [facility] note* Diagnosis Chest pain, unspecified type- Primary Essential hypertension Unspecified essential hypertension Mixed hyperlipidemia Abnormal stress test Other nonspecific abnormal cardiovascular system function study 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 instructions* Attachments The following attachments cannot be sent through Care Everywhere. * Indwelling Urinary Catheter Care: General Info (Burmese) * UTI (Urinary Tract Infection): Male (Burmese) [facility] Additional Instructions You are seen today for a psych evaluation. If you have an interaction with the same resident at your facility, please just go back to your room. Please do not place any plans on any resident. Please return to the ER for any worsening symptoms.[facility] Work Phone: Hospital Discharge instructions Additional Instructions Continue to take all your medications as prescribed. Continue to have follow-up with your primary care physician for reevaluation. Return if any new or worsening concerns such as any suicidal ideations, depression, or homicidal ideations.[facility] Work Phone: Hospital Discharge instructions Additional Instructions Your clinical assessment in the emergency department did not reveal any signs of life or limb threatening illness. It is important for you to continue to follow-up. Please contact your primary care physician and establish an appointment for follow-up care in the next 1 week. Return to the emergency department if you develop any other worsening or concerning symptoms. [facility] Work Phone: Hospital Discharge instructions No data available for this section [facility] No data available for this section [facility] (n[facility] Consultation (Routine) Status Reason Specialty Diagnoses / Procedures Referred By Contact Referred To Contact Authorized Specialty Services Required Podiatry Diagnoses Type 2 diabetes mellitus with right diabetic foot ulcer Diabetic autonomic neuropathy associated with type 2 diabetes mellitus Paul Gaona DO [address] [place] [phone] Phone: [facility] for referral (narrative)* Consultation (Routine) - Authorized Specialty Diagnoses / Procedures Referred By Poonam duffy Referred To Contact Podiatry Diagnoses Diabetic ulcer of other part of left foot associated with diabetes mellitus due to underlying condition, limited to breakdown of skin Paul Gaona DO [address] [place] [phone] Phone: Referral ID Status Reason Start Date Expiration Date Visits Requested Visits Authorized [id number] Authorized Specialty Services Required 07/25/2021 07/25/2022 1 1 [facility] for referral (narrative)* Consultation (Routine) - Authorized Specialty Diagnoses / Procedures Referred By Poonam t Referred To Contact Cardiology Diagnoses Chest pain, unspecified type Essential hypertension Mixed hyperlipidemia Procedures Follow Up In Cardiology Jayme De MD [address] [place] [address], [address] [address] Jayme De MD [facility] 2, [address] [address] Referral ID Status Reason Start Date Expiration Date V isits Requested Visits Authorized [id number] Authorized 11/12/2023 11/11/2024 1 1 [facility] Work Phone: Assessments Diagnosis Cellulitis, unspecified cellulitis site- Primary Open wound of foot, unspecified laterality, initial encounter Elevated blood pressure reading Elevated blood pressure reading without diagnosis of hypertension H/O diabetes mellitus Anemia, unspecified type Hyponatremia Hyposmolality and/or hyponatremia Hyperglycemia Other abnormal glucose Elevated C-reactive protein (CRP) Diagnosis Open wound of left foot, initial encounter- Primary Diagnosis Hematuria, gross- Primary Gross hematuria Bladder wall thickening Other specified disorder of bladder Hydroureteronephrosis Hydronephrosis Penile hypospadias Hypospadias Diagnosis Overactive bladder- Primary Hypertonicity of bladder Mass of urinary bladder Neoplasm of uncertain behavior of bladder Diagnosis Urinary retention- Primary Unspecified retention of urine Diagnosis Sepsis (HCC)- Primary Pyelonephritis Unspecified pyelonephritis Hematuria, gross Gross hematuria Todd catheter in place prior to arrival Weakness generalized Other malaise and fatigue Urinary retention Unspecified retention of urine Chest pain Unspecified chest pain Elevated troponin Other abnormal blood chemistry Abnormal EKG Nonspecific abnormal electrocardiogram (ECG) (EKG) Advance Directives No Advanced Directives Records FoundDocuments on File Type Date Recorded Patient Bell Staff Expl anation Advance Directives and Livin g Will 07/26/2020 4:54 AM Latest Code Status on File Code Status Date Activated Date Inactivated Comments Full Code 07/26/2020 2:06 PM Documents on File Type Date Recorded Patient Bell Staff Expl anation Advance Directives and Livin g Will 07/26/2020 5:39 PM Latest Code Status on File Code Status Date Activated Date Inactivated Comments Full Code 07/26/2020 2:06 PM 08/06/2020 6:18 PM Documents on File Type Date Recorded Patient Bell Staff Expl anation Advance Directives and Livin g Will 07/26/2020 5:39 PM Latest Code Status on File Code Status Date Activated Date Inactivated Comments Full Code 07/26/2020 2:06 PM 08/06/2020 6:18 PM Documents on File Type Date Recorded Patient Bell Staff Expl anation Advance Directives and Livin g Will 08/14/2020 11:07 PM Latest Code Status on File Code Status Date Activated Date Inactivated Comments Full Code 08/15/2020 9:27 AM Full Code 07/26/2020 2:06 PM 08/06/2020 6:18 PM Documents on File Type Date Recorded Patient Bell Staff Expl anation Advance Directives and Livin g Will 08/15/2020 2:53 PM Latest Code Status on File Code Status Date Activated Date Inactivated Comments Full Code 08/15/2020 9:27 AM Full Code 07/26/2020 2:06 PM 08/06/2020 6:18 PM Latest Code Status on File Code Status Date Activated Date Inactivated Comments Full Code 08/15/2020 9:27 AM 08/18/2020 9:16 PM Documents on File Type Date Recorded Patient Bell Staff Expl anation Advance Directives and Livin g Will 08/15/2020 2:53 PM Latest Code Status on File Code Status Date Activated Date Inactivated Comments Full Code 08/15/2020 9:27 AM 08/18/2020 9:16 PM Documents on File Type Date Recorded Patient Bell Staff Expl anation Advance Directives and Livin g Will 10/17/2020 4:26 AM Documents on File Type Date Recorded Patient Bell Staff Expl anation Advance Directives and Livin g Will 10/19/2020 4:36 PM Latest Code Status on File Code Status Date Activated Date Inactivated Comments Full Code 10/19/2020 6:23 PM 10/22/2020 10:14 PM Full Code 08/15/2020 9:27 AM 08/18/2020 9:16 PM Documents on File Type Date Recorded Patient Bell Staff Expl anation Advance Directives and Livin g Will 10/19/2020 4:36 PM Latest Code Status on File Code Status Date Activated Date Inactivated Comments Full Code 10/19/2020 6:23 PM 10/22/2020 10:14 PM Full Code 08/15/2020 9:27 AM 08/18/2020 9:16 PM Documents on File Type Date Recorded Patient Bell Staff Expl anation Advance Directives and Living Will Power of Technologies Division Chair Latest Code Status on File Code Status Date Activated Date Inactivated Comments Full Code 05/12/2021 11:09 AM 05/15/2021 10:35 PM Full Code 05/05/2021 12:33 PM 05/12/2021 11:09 AM Full Code 05/02/2021 3:17 AM 05/05/2021 12:33 PM Documents on File Type Date Recorded Patient Bell Staff Expl anation Power of Technologies Division Chair Documents on File Type Date Recorded Patient Bell Staff Expl anation Advance Directives and Livin g Will 01/09/2022 1:49 PM Latest Code Status on File Code Status Date Activated Date Inactivated Comments Full Code - Unverified 01/12/2022 1:48 PM 01/17/2022 7:0 2 PM Full Code 01/09/2022 4:23 PM 01/12/2022 1:48 PM Full Code 10/19/2020 6:23 PM 10/22/2020 10:14 PM Documents on File Type Date Recorded Patient Bell Staff Expl anation Advance Directives and Livin g Will 01/09/2022 1:49 PM Latest Code Status on File Code Status Date Activated Date Inactivated Comments Full Code - Unverified 01/12/2022 1:48 PM 01/17/2022 7:0 2 PM Full Code 01/09/2022 4:23 PM 01/12/2022 1:48 PM Full Code 10/19/2020 6:23 PM 10/22/2020 10:14 PM Documents on File Type Date Recorded Patient Bell Staff Expl anation Power of Technologies Division Chair Documents on File Type Date Recorded Patient Bell Staff Expl anation Advance Directives and Living Will Power of Technologies Division Chair Latest Code Status on File Code Status Date Activated Date Inactivated Comments Full Code 05/02/2022 9:45 PM 06/29/2022 10:40 PM Full Code 05/12/2021 11:09 AM 05/15/2021 10:35 PM Full Code 05/05/2021 12:33 PM 05/12/2021 11:09 AM Full Code 05/02/2021 3:17 AM 05/05/2021 12:33 PM Advance Directive Response Recorded Date/ Time Does Patient Have Advance Directives? No September 08, 2022 2:58pm Code Status Full Code September 08 2:58pm Advance Directive Response Recorded Date/ Time Does Patient Have Advance Directives? No September 08, 2022 11:03pm Code Status Full Code September 08 11:03pm Latest Code Status on File Code Status Date Activated Date Inactivated Comments Full Code 09/11/2022 3:39 AM 09/14/2022 11:59 AM Full Code 05/02/2022 9:45 PM 06/29/2022 10:40 PM Full Code 05/12/2021 11:09 AM 05/15/2021 10:35 PM Advance Directive Response Recorded Date/ Time Does Patient Have Advance Directives? No September 22, 2022 5:21am Code Status Full Code September 22, 5:21am Latest Code Status on File Code Status Date Activated Date Inactivated Comments Full Code - Unverified 01/12/2022 1:48 PM 01/17/2022 7:0 2 PM Code Status History Code Status Date Activated Date Inactivated Comments Full Code 01/09/2022 4:23 PM 01/12/2022 1:48 PM Full Code 10/19/2020 6:23 PM 10/22/2020 10:14 PM Full Code 08/15/2020 9:27 AM 08/18/2020 9:16 PM Full Code 07/26/2020 2:06 PM 08/06/2020 6:18 PM Latest Code Status on File Code Status Date Activated Date Inactivated Comments Full Code 08/20/2023 6:00 AM 08/20/2023 1:01 PM Question Answer Comments Plan of Care: Code Status Discussion Not Compl eted Decision Maker: Provider Rationale: Patient condition do es not warrant discussion Reason for Referral Status Reason Specialty Diagnoses / Procedures Referred By Contact Referred To Contact Authorized Specialty Services Required/[facility] Diagnoses Open wound of left foot, initial encounter Kamala Barrios MD [address] [place] [address] Specialty Diagnoses / Procedures Referred By Contac t Referred To Contact Rehabilitation Diagnoses Diabetic foot infection (HCC) Wound infection Type 2 diabetes mellitus with diabetic neuropathic arthropathy, with long-term current use of insulin (HCC) Johnathan Zepeda DO [address] [place] [phone] Referral ID Status Reason Start Date Expiration Date Visits Requested Visits Authorized [id number] Authorized Patient Preference 01/16/2022 01/16/2023 1 1 Specialty Diagnoses / Procedures Referred By Contac t Referred To Contact Care Management Diagnoses Diabetic foot infection (HCC) Johnathan Zepeda DO [address] [place] [address] Referral ID Status Reason Start Date Expiration Date Visits Requested Visits Authorized [id number] Authorized Specialty Services Required/[facility] 01/16/2022 01/16/2023 1 1 Status Reason Specialty Diagnoses / Procedures Referred By Contact Referred To Contact Authorized Diagnoses Impacted cerumen of right ear Procedures Ear Cerumen Removal Yanick Umanzor MD [address] [place] [address] Specialty Diagnoses / Procedures Referred By Contac t Referred To Contact Sleep Medicine Diagnoses Sleep apnea, unspecified type Procedures Polysomnography with PAP Lamin Stringer MD [address] [facility] [address] [place] [address] [facility] Sleep Medicine [address], [address] [place] [phone] Referral ID Status Reason Start Date Expiration Date V isits Requested Visits Authorized [id number] Authorized 02/21/2022 08/20/2022 1 1 Specialty Diagnoses / Procedures Referred By Contac t Referred To Contact Sleep Medicine Diagnoses Sleep apnea, unspecified type Procedures Polysomnography Lamin Stringer MD [address] [phone] [facility] Sleep Medicine [address], [address] [place] [phone] Referral ID Status Reason Start Date Expiration Date V isits Requested Visits Authorized [id number] Authorized 02/21/2022 08/20/2022 1 1 Specialty Diagnoses / Procedures Referred By Contac t Referred To Contact Cardiology Diagnoses PAD (peripheral artery disease) (HCC) Procedures US Doppler ankle/brachial index Fatmata Cosby MD [address] [place] [address] Referral ID Status Reason Start Date Expiration Date V isits Requested Visits Authorized [id number] Authorized 09/25/2022 09/25/2023 1 1 Specialty Diagnoses / Procedures Referred By Contac t Referred To Contact Cardiology Diagnoses PAD (peripheral artery disease) (HCC) Procedures Ultrasound duplex arterial legs bilat Fatmata Cosby MD [address] [place] [id number] Referral ID Status Reason Start Date Expiration Date V isits Requested Visits Authorized [id number] Authorized 09/25/2022 09/25/2023 1 1 Hospital Course * Rhianna Stallworth, WEB MANAGER - 08/06/2020 11:06 AM EDT [facility] [place] [place] Mikayla Pappas Admitted: 07/26/2020 Discharge Date: 08/06/20 PCP Handoff Recommended Outpatient Testing: renal function panel in 3-5 days Results Pending At Discharge: none Clinical Summary Mikayla Pappas is a 59 y.o. male patient of Dr. Dominguez with history of DM type II, HTN, left foot wound presented 07/26/20 with worsening left foot wound. He is now s/p left foot I&D on 07/29 aswell as debridement and skin graft on 08/05/20. His hospital stay was complicated by mild BAIELE. Left diabetic foot ulcer w/out sepsis XR L foot (07/26) no acute bony abnormality MRI L foot/heel (07/26) suspected early OM NIVS (07/27) no evidence of significant stenosis, normal perfusion Blood cx (07/26) NGTD; Wound cx (07/26) normal skin mary Consulted Podiatry and ID S/p left foot I&D and bone bx's (07/29) Surgical cx (07/29) pending; no surgical pathology sent Vanco/Zosyn started (07/26) S/p debridement and skin grafting on 08/05 Cultures negative Pt can discharge home on keflex for 4 days (stop date 09/06/2020) Unfortunately pt is not able to maintain NWB status per PT but his insurance doesn't allow him homehealth services. [facility] consulted and was looking into Med assist. BAILEE Baseline Cr normal; Cr elevated 1.38 (07/31) Had high vanc trough initially Held home losartan Urine studies negative Resolved with IV fluids but then up again to 1.4 postop 08/06 Encourage oral fluids and pt counseled needs labs in 3-5 days with PCP to monitor Avoid nephrotoxic meds IDDM2, uncontrolled A1c 13.5%; pt states he has been running low on insulin and rationing due to costs Home regimen: glipizide and Janumet, Lantus and Humalog SSi Held home orals; started on Lantus and SSI Accuchecks and diabetic diet Consulted adult educator Rx for basaglar insulin 50 units nightly along with lispro (rx already at pharmacy, pt just needs to pick pulling machine tender) Holding oral meds for BAILEE, can resume once renal function returns to normal Essential HTN Held home Losartan for BAILEE PO hydralazine prn Started norvasc and rx sent on discharge LORENA Autopap prn Encourage IS and OOB as tolerated Neuropathy Continue home gabapentin, prescription provided Also provide short supply of norco for pain on discharge. The patient was advised of the risks and benefits of opioid medications, including the potential for addiction. Discharge Medications Current Discharge Medication List START taking these medications Details alcohol swabs PadM Check your sugars up to 4 times a day . Qty: 100 each, Refills: 11 amLODIPine (NORVASC) 10 MG tablet Take 1 (one) tablet (10 mg total) by mouth daily Start: 08/07/20. Qty: 30 tablet, Refills: 0 blood sugar diagnostic strips Check your sugars up to 4 times a day . Qty: 100 each, Refills: 11 blood-glucose meter Misc Check your sugars up to 4 times a day . Qty: 1 each, Refills: 0 cephALEXin (KEFLEX) 500 MG capsule Take 1 (one) capsule (500 mg total) by mouth 4 (four) times a day . Qty: 120 capsule, Refills: 0 HYDROcodone-acetaminophen (NORCO) 5-325 mg per tablet Take 1 (one) tablet by mouth every 6 (six) hours as needed (Days supply per fill: 5) . Qty: 20 tablet, Refills: 0 Associated Diagnoses: Open wound of left foot, initial encounter insulin glargine (Basaglar KwikPen U-100 Insulin) 100 unit/mL (3 mL) InPn Inject 50 (fifty) Units under the skin nightly . Qty: 15 mL, Refills: 0 lancets Misc Check your sugars up to 4 times a day . Qty: 100 each, Refills: 11 pen needle, diabetic 32 gauge x /32 Ndle Change pen needles daily as needed up to 4 times. . Qty: 100 each, Refills: 11 senna-docusate (SENNA-S) 8.6-50 mg Take 1 (one) tablet by mouth 2 (two) times a day . Qty: 60 tablet, Refills: 0 CONTINUE these medications which have CHANGED Details gabapentin (NEURONTIN) 300 MG capsule Take 1 (one) capsule (300 mg total) by mouth every 8 (eight) hours (Days supply per fill: 30) . Qty: 90 capsule, Refills: 0 rosuvastatin (Crestor) 40 MG tablet Take 1 (one) tablet (40 mg total) by mouth every evening . Qty: 30 tablet, Refills: 0 CONTINUE these medications which have NOT CHANGED Details ascorbic acid, vitamin C, (ascorbic acid with lakesha hips) 500 MG tablet Take 500 mg by mouth daily . stseopg-mgmzxjhzeaftq-bobqztgd (EXCEDRIN MIGRAINE) 250-250-65 mg per tablet Take 1 tablet by mouth every 6 (six) hours as needed for pain. cyanocobalamin, vitamin B-12, (VITAMIN B-12 ORAL) Take 1 tablet by mouth daily . insulin lispro (HumaLOG KwikPen Insulin) 100 unit/mL InPn Inject 5-7 Units under the skin every evening . STOP taking these medications insulin glargine (LANTUS) 100 unit/mL injection Comments: Reason for Stopping: losartan (COZAAR) 25 MG tablet Comments: Reason for Stopping: sitagliptan-metFORMIN (JANUMET) 50-1,000 mg per tablet Comments: Reason for Stopping: glipiZIDE (GLUCOTROL XL) 10 MG 24 hr tablet Comments: Reason for Stopping: Physician(s) Follow Up: Jet Calvillo DPM [address] [place] [address] Call in 1 week(s) Please call to make/confirm follow up appointment Greyson Dominguez MD [address] [place] [address] Schedule an appointment as soon as possible for a visit in 1 week(s) you need to have labwork in 3-5 days to check your kidney function Condition at Discharge: Stable Disposition: Home On day of discharge, I performed a final bedside evaluation including a physical exam. I reviewed discharge recommendations with the patient in person. Patient instructions, including activity, were given to the patient/family at discharge. Time spent on discharge: > 30 minutes Completed by: Rhianna Stallworth on 08/06/20, 11:06 AM documented in this encounter* Isaias Boateng MD - 10/22/2020 10:55 AM EST [facility] [place] [place] Mikayla Pappas Admitted: 10/19/2020 Discharge Date: 10/22/20 PCP Handoff Recommended Outpatient Testing: Urology f/u in 1-2 weeks for urodynamics PCP f/u for uncontrolled DM2, HTN Results Pending At Discharge: None Clinical Summary Mikayla Pappas is a 60 y.o. male patient of Greyson Dominguez MD with history of overactive bladder, depression with previous SI, IDDM2, LORENA and HTN with hospital stay 08/15-08/18 for gross hematuria and urinary retention s/p meatal dilation who presented to [facility] with hematuria. UTI Sepsis One week history of suprapubic pain with LUTS UA with many bacteria, >180 RBCs and WBC and large blood, WBC 12 Continue Ancef, BCx2 no growth UCx w/ E coli Keflex for total of 14 days per Urology (ends 11/01) Urinary Retention Gross hematuria With hospital stay 08/15-08/18 for similar with meatal stenosis dilation Todd placed in Dr. Mercedes's office 10/19 and draining Defer CBI for now Continue Todd on discharge Urology f/u in 1-2 weeks for urodynamics due to possible neurogenic bladder from overdistention Lethargy On 10/21 -- resolved 10/22 Reduced home gabapentin to 300 at bedtime as pt takes at home Uncontrolled IDDM2 with Hyperglycemia HbA1c 13.5% (07/2020) on Janumet, Glipizide and Lantus 50 units nighty BG 267 on arrival. 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 -- resolved 10/22 EKG w/ LAFB, RBBB, I, AVL w/T wave abnormalities (t-wave changes are new since 07/2020 Trops 184>>[id number] Lexiscan negative ECHO w/EF 55% Cardiology consulted -- no further w/u needed Diabetic ulcer on left foot, POA Wound present since 08/2020 Wound care consulted -- use mepelex Generalized Weakness One week history with poor PO intake and mechanical fall 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 Qty: 22 capsule, Refills: 0 CONTINUE these medications which have CHANGED Details gabapentin (NEURONTIN) 300 MG capsule Take 1 (one) capsule (300 mg total) by mouth nightly (Days supply per fill: 30) . Qty: 30 capsule, Refills: 0 insulin glargine (Basaglar KwikPen U-100 Insulin) 100 unit/mL (3 mL) InPn Inject 20 (twenty) Units under the skin nightly . Qty: 6 mL, Refills: 0 CONTINUE these medications which have NOT CHANGED Details amLODIPine (NORVASC) 10 MG tablet Take 1 (one) tablet (10 mg total) by mouth daily Start: 08/07/20. Qty: 30 tablet, Refills: 0 ascorbic acid, vitamin C, (ascorbic acid with lakesha hips) 500 MG tablet Take 500 mg by mouth daily . ztvtdyf-rkczmqlmztgdp-avgcrdbe (EXCEDRIN MIGRAINE) 250-250-65 mg per tablet Take 1 tablet by mouth every 6 (six) hours as needed for pain. cyanocobalamin, vitamin B-12, (VITAMIN B-12 ORAL) Take 1 tablet by mouth daily . doxazosin (CARDURA) 4 MG tablet Take 4 mg by mouth daily . glipiZIDE (GLUCOTROL XL) 10 MG 24 hr tablet Take 10 mg by mouth daily . losartan (COZAAR) 25 MG tablet Take 25 mg by mouth daily . oxybutynin (DITROPAN-XL) 10 MG 24 hr tablet Take 1 (one) tablet (10 mg total) by mouth daily . Qty: 30 tablet, Refills: 11 Associated Diagnoses: Overactive bladder rosuvastatin (Crestor) 40 MG tablet Take 1 (one) tablet (40 mg total) by mouth every evening . Qty: 30 tablet, Refills: 0 alcohol swabs PadM Check your sugars up to 4 times a day . Qty: 100 each, Refills: 11 blood sugar diagnostic strips Check your sugars up to 4 times a day . Qty: 100 each, Refills: 11 blood-glucose meter Misc Check your sugars up to 4 times a day . Qty: 1 each, Refills: 0 insulin lispro (HumaLOG KwikPen Insulin) 100 unit/mL InPn For blood sugar 141- 180 give 2 units subcutaneoulsy, for 181-220 give 4 units, for 221-260 give 6 units, and for 261-300 give 8 units. . Qty: 18 mL, Refills: 0 lancets Misc Check your sugars up to 4 times a day . Qty: 100 each, Refills: 11 pen needle, diabetic 32 gauge x 5/32 Ndle Change pen needles daily as needed up to 4 times. . Qty: 100 each, Refills: 11 sitagliptan-metFORMIN (JANUMET) 50-1,000 mg per tablet Take 1 tablet by mouth daily . STOP taking these medications phenazopyridine (PYRIDIUM) 200 MG tablet Comments: Reason for Stopping: Physician(s) Follow Up: Paul Kim MD [address] [place] [address] [place] [address] Follow up Follow up as scheduled [facility] Address: [address] [place] [address], [facility] [address] Servicing Counties: [place] [phone] Condition at Discharge: Stable Disposition: SNF On day of discharge, I performed a final bedside evaluation including a physical exam. General Appearance: alert, well appearing, and in no acute distress HEENT: Head- normocephalic; Eyes- PERRLA, EOMI; Ears-hearing intact; Nose- no nasal discharge; Throat- oropharynx normal Cardiovascular: regular rate and rhythm; normal S1, S2; no murmurs, rubs, clicks or gallops; trace L foot peripheral edema; no JVD Respiratory: lungs clear to auscultation; without wheezes, rales or rhonchi Abdomen: soft, non-tender, non-distended; positive bowel sounds : +todd draining clear orange urine Neurological: alert, oriented x 3, normal speech; no focal findings or movement disorder noted Musculoskeletal: no significant deformity or tenderness to palpation Skin: L dorsal and plantar foot covered with c/d/i mepelex Psych: blunted mood and affect I reviewed discharge recommendations with the patient in person. Patient instructions, including activity, were given to the patient/family at discharge. Time spent on discharge: > 30 minutes Completed by: Isaias Boateng on 10/22/20, 10:55 AM documented in this encounter Discharge Instructions * Discharge Instr - AVS First Page* Rhianna Stallworth CNP - 08/06/2020 10:54 AM EDT You need to have labwork in 3-5 days to check your kidney function with your family doctor. Do not take any motrin, ibuprofen, or aleve until your kidney function is back to normal. * Discharge Instr - Care Coordination* Christine Brown RN - 07/27/2020 11:11 AM EDT Please go to [place]ly to Apply for financial assistance or call financial dept [phone] Mon thru Fri 8am-6pm for assistance with your hospital bill. Information about a FREE program to lower the cost of your prescriptions including your narcotic pain medication What are GoodRx coupons? GoodRx coupons will help you pay less than the ring harden for your prescription. They re free to use and are accepted at virtually every U.S[place] pharmacy. [facility] does not accept good rx coupons for pain medication (narcotics) at this time. Your pharmacist will know how to enter the codes on the coupon to pull up the lowest discount available. How do I use a GoodRx coupon? It s similar to using a coupon at a grocery store. Simply print the coupon and bring it with you tothe pharmacy when you pick pulling machine tender your prescription. The pharmacist will enter the numbers on the coupon into their system to find the discount. Don t have a printer or want to save paper and ink cartridges? You can show the coupon on your phone by: A) Sending the coupon to yourself via email or text B) Or using the mobile manuel C) Visiting our mobile website [email or web address] What if I have insurance or Medicare? Many insurance plans have high deductibles or limited formularies that don t cover the drugs you need. Many insurance plans require extra authorizations for narcotic pain medication that can delay getting your medication filled. PR Slides may be able to find you a lower harden than your insurance co-pay. Hundreds of generic medications are available for $4 or even free without insurance. Cost saving tips with diabetes Meters and testing supplies (strips): Check out store-brand meters ([employer], [employer], [employer], for example, have meters with strips as low as $9.00/50. You must buy the meter that goes with the strips. Medicine: Tell your doctor if you need lower cost medicines. Some of the diabetes pills are on the $4.00 list. Vouchers and discount programs: Check out the manufacturers website for vouchers, coupons, or discount cards. These programs limit the amount of copayment for a medication. For example, www.humalog.com; www.lantus.com; www.novolog.com; www.levimer.com. Cultural Historian s Patient Assistance Programs: Most drug manufactures offer ongoing assistance for theneedy. Check out their web sites to apply. For example, www.Kadang.com.Rostima (Halina products); www.novonordisk.Rostima (Novolin insulins, Levimer, Victoza), www.Sanofipatientassistance.com (Lantus, Apidra) Lower cost insulin: Some kinds of insulin are less expensive than others. The newer insulins (Lantus, Levimer, lispro, aspart, 75/25 mix, for example) cost more than $100/bottle. Insulin pens cost more than bottles. Older insulin (Novolin NPH, Novolin Regular, Novolin 70/30 mix) cost less and cost much less at [employer] ($24.88/bottle for their Relion brand of Novolin insulin). [facility]: Call them at to make an appointment. [facility] Diabetes Association: CODA has programs to provide education for people with diabetes.Call them at . ENGAGE: An [facility] community health and wellness program. Call [phone]) [phone] for more information or to enroll in their diabetes management program. The Joint Organization for [employer] Needs: J.O.I.N. provides material needs for low income families in [facility] and functions under the [employer] of [facility]. Call them at . Hours: Saturday 10-11:30 am and 1-2 pm. [place]: Call or go online to get information about free programs for people with diabetes and pre-diabetes. Healthy Eating: You don t need to buy special diabetic food. You do need to learn how to fix healthy, affordable meals and to stick with your plan! Staying Active: Check out the [employer] or [employer] and [employer] for free activities and classes for all ages. (amina) reviewed * Additional Instructions* Flash Sandoval DPM - 08/06/2020 FOOT SURGERY, HOME CARE INSTRUCTIONS (DIABETIC) Keep Dressing Clean, Dry and Intact to the left lower extremity. NON WEIGHTBEARING with assistive device. Please follow these instructions to help minimize swelling and to help insure good healing. Foot and Ankle Care -Go directly home and elevate your feet on the way if possible. -Do not sit with your feet down or crossed for any length of time. This causes the feet to swell and become painful. -Elevate your feet about 6 inches above hip level. Support your feet and legs with pillows. -Before standing, dangle your feet and legs for one full minute over the edge of the chair. This helps to avoid discomfort and dizziness when you rise. -If you have been given a surgical shoe, it is imperative that you wear it whenever you walk. Even to the bathroom. -If you have a SPLINT do not bear any weight on that splint. Use your crutches or walker as directed. -Keep your bandages clean and dry. Do not remove the bandages or inspect the wound. A small amount of blood on the bandage is normal. Comfort and Activity -The amount of discomfort will vary from one patient to another. -Do not use ice if you have neuroplasty unless instructed by your doctor. -Exercise your legs by bending your knees to help circulation. -Have your prescription filled the day of the procedure. Take all medication as directed. If you get a stomach upset, headache, rash or other reaction, discontinue use and call our office right away. -Get plenty of rest with the foot elevated. Drink plenty of fluids. Eat your regular well balanced diet. -Do not use alcohol and tobacco products. They slow healing. Managing Your Pain Safely -Pain medicine and good pain control is important and helps your comfort level while your body heals. It may take days, weeks or even months for your pain to go away completely. -Take pain medicine before your pain becomes severe so you can have better pain relief -For 2 or 3 days, it may help to take pain medicine as often as ordered to keep your pain under better control. Then begin to take less medicine each day until no longer needed. -Do not drive, operate heavy machinery, ride motorcycles or ATBooknGo s, drink alcohol, or take other medication that make you tired or sleepy while you are taking narcotic pain medications. -Do not do any dangerous activities while taking pain medicines. They may decrease your ability to make safe decisions. -Do not take pain medications on an empty stomach. This may lead to nausea and vomiting. -Pain medicines often cause constipation. If you have problems with constipation, call your doctor for advice. To Help Prevent a Surgical Site Infection -If you are prescribed antibiotics, take as instructed and do not stop taking the medicine until itis gone. -Washing your hands is very important to prevent the spread of infection! Wash your hands often. You and all your visitors should wash your hands after using the restroom, before and after eating, and before touching any of your incisions. -Wash your hands using soap and warm water for at least 15 seconds. Rub your palms, fingernails, inbetween your fingers, and the backs of your hands. -Keep incision clean and dry Call your doctor right away if: -You should bump or injure your foot -You develop a temperature of greater than 100*F -Your medication does not stop the discomfort -If bandages become tight and/or your toes turn blue -Active drainage arises from the bandages with your foot elevated -Questions or concern documented in this encounter* Attachments The following attachments cannot be sent through Care Everywhere. * Urinary Retention (Burmese) documented in this encounter* Discharge Instr - Wound* Mimi Cuellar RN - 10/20/2020 11:14 AM EST Left foot - Daily - Cleanse with soap and water. Apply medihoney and adaptic. Cover with mepilex. FOLLOW UP OUTPATIENT WITH YOUR COMMODITY SUPERVISOR documented in this encounter History of Present Illness * Anneliese Morales RN - 08/06/2020 3:14 PM EDT Reviewed discharge instructions with patient. Patient verbalizes understanding and has no further questions or concerns at this time. All patient belongings returned. Provided patient with a copy of the AVS. RN assisted patient to vehicle. Patient discharged home. * Christine Brown RN - 08/06/2020 12:09 PM EDT 08/06/20 1200 [facility] Disposition D/C Disposition Home Health Related to Current Admission? Yes [facility] Wheeled walker HME Agency [facility] HME Options Reviewed List provided;Possible expense;Explained services/benefits;Confirm Consent Form Signature Reason for Choice Patient/Family preference spoke with Destiny [facility] intake, pt needs to apply for HCAP in order to get [facility] HH visits [facility] for financial requesting assistance with this met with patient to discuss dc needs. Says he has the HCAP application to turn in once he is home and able to submit paystubs. Patient feels confident that he will qualify as he works at [employer] and hasnt been able to work in the past couple weeks. Agreeable to [facility] for [facility] PT visits. Placed order, updated Rhianna DE LA CRUZ 2040 received vm from santino Jesus in patient financial services stating patient qualifies for 100% of [facility] for home health services. * Rhianna Stallworth, MURALI - 08/06/2020 10:56 AM EDT [facility] [place] Assessment and Plan Mikayla Pappas is a 59 y.o. male patient of Dr. Dominguez with history of DM type II, HTN, left foot wound presented 07/26/20 with worsening left foot wound. He is now s/p left foot I&D on 07/29 aswell as debridement and skin graft on 08/05/20. His hospital stay was complicated by mild BAILEE. Left diabetic foot ulcer w/out sepsis XR L foot (07/26) no acute bony abnormality MRI L foot/heel (07/26) suspected early OM NIVS (07/27) no evidence of significant stenosis, normal perfusion Blood cx (07/26) NGTD; Wound cx (07/26) normal skin mary Consulted Podiatry and ID S/p left foot I&D and bone bx's (07/29) Surgical cx (07/29) pending; no surgical pathology sent Vanco/Zosyn started (07/26) S/p debridement and skin grafting on 08/05 Cultures negative Pt can discharge home on keflex for 4 days (stop date 09/06/2020) Unfortunately pt is not able to maintain NWB status per PT but his insurance doesn't allow him homehealth services. [facility] consulted and was looking into Med assist. BAILEE Baseline Cr normal; Cr elevated 1.38 (07/31) Had high vanc trough initially Held home losartan Urine studies negative Resolved with IV fluids but then up again to 1.4 postop 08/06 Encourage oral fluids and pt counseled needs labs in 3-5 days with PCP to monitor Avoid nephrotoxic meds IDDM2, uncontrolled A1c 13.5%; pt states he has been running low on insulin and rationing due to costs Home regimen: glipizide and Janumet, Lantus and Humalog SSi Held home orals; started on Lantus and SSI Accuchecks and diabetic diet Consulted adult educator Rx for basaglar insulin 50 units nightly along with lispro (rx already at pharmacy, pt just needs to pick pulling machine tender) Holding oral meds for BAILEE, can resume once renal function returns to normal Essential HTN Held home Losartan for BAILEE PO hydralazine prn Started norvasc and rx sent on discharge LORENA Autopap prn Encourage IS and OOB as tolerated Neuropathy Continue home gabapentin, prescription provided Also provide short supply of norco for pain on discharge. The patient was advised of the risks and benefits of opioid medications, including the potential for addiction. Code Status: Full Code Quality Measures DVT Prophylaxis: Lovenox Todd Catheter: Absent Disposition Discharge Location: home Estimated Discharge Date: today after case management final recommendations Outpatient Testing: Pending Subjective Doing very well, excited to go home. Denies new concerns. Review of Systems All systems have been reviewed and are negative except as noted in HPI or below Objective BP 111/65 (BP Location: Right arm, Patient Position: Lying) Pulse 71 Temp 98.1 F (36.7 C) (Oral) Resp 16 Ht 5' 8 Wt 88.9 kg (196 lb) SpO2 93% BMI 29.80 kg/m Physical Examination General Appearance: alert and in no acute distress Cardiovascular: regular rate and rhythm; normal S1, S2; no murmurs, rubs, clicks or gallops; no peripheral edema Respiratory: lungs clear to auscultation; without wheezes, rales or rhonchi. On room air. Abdomen: soft, non-tender, non-distended; positive bowel sounds, overweight Neurological: alert, oriented x 3, normal speech; no focal findings or movement disorder noted Musculoskeletal: no significant deformity or tenderness to palpation. Skin: normal coloration, texture and turgor; no lesions or eruptions, Left foot drsg intact Psych: normal mood and affect Results/Medications Reviewed 08/06/20 10:56 AM Laboratory, Microbiology, Cardiology, Medications and Transcriptions * Rakesh Muñoz MD - 08/06/2020 10:33 AM EDT DAILY PROGRESS NOTE Patient Name: Mikayla Pappas MR #: [id number] Assessment and Plan: 1. Left foot infection post surgery, concern for metatarsal osteomyelitis with path pending currently on vancomycin and Zosyn empirically with no positive cultures 2. Diabetes-monitor glucose, management per hospitalist team 3. Hypertension on treatment, management per hospitalist team 4. Acute kidney injury-creatinine up a tad Disposition Comments: Surgery 08/05 as noted, all cultures have been negative, okay for discharge on oral Keflex 500 4 times daily 4 weeks duration Subjective/Objective: Perpetual Assessment: Mikayla Pappas is a 59 y.o. male on hospital day 11 with hyperlipidemia, sleep apnea, hypertension, diabetes, with left foot ulceration cellulitis. Chief Complaint: Left foot infection HPI: Pain controlled tolerating antibiotics,surgery 08/05 as noted Review of Systems: The following system(s) were reviewed: Constitutional, GI,Skin Physical Examination: BP 111/65 (BP Location: Right arm, Patient Position: Lying) Pulse 71 Temp 98.1 F (36.7 C) (Oral) Resp 16 Ht 5' 8 Wt 88.9 kg (196 lb) SpO2 93% BMI 29.80 kg/m General: NAD; Alert and oriented x3 Eyes: Conjunctiva and sclera clear Lungs: Clear without rales, rhonchi or wheezes; no increased respiratory effort Cardiovascular: RRR; no edema Abdomen: soft; non tender Extremities: No cyanosis or clubbing both feet wrapped Skin: No rashes or nodules; normal turgor Neurologic: No focal motor deficits Psych: Mood and affect appropriate Results/Medications Reviewed: Current Facility-Administered Medications Medication Dose Route Frequency Provider Last Rate Last Admin acetaminophen (TYLENOL) tablet 650 mg 650 mg Oral Q4H PRN Patrick Mayo MD aluminum-magnesium hydroxide-simethicone (MAALOX PLUS) 200-200-20 mg/5 mL suspension 30 mL 30 mL Oral 4x Daily PRN Mirta Mills CNP amLODIPine (NORVASC) tablet 10 mg 10 mg Oral Daily Fior Mendoza CNP 10 mg at ascorbic acid (vitamin C) (VITAMIN C) tablet 500 mg 500 mg Oral Daily Patrick Mayo MD 500mg at 08/06/20 08 bisacodyL (DULCOLAX) suppository 10 mg 10 mg Rectal Daily PRN Mirta Mills CNP cyanocobalamin (B-12) tablet 1,000 mcg 1,000 mcg Oral Daily Patrick Mayo MD 1,000 mcg at 08/06/20 0821 diphenhydrAMINE (BENADRYL) oral solid 25 mg 25 mg Oral Q6H PRN Mirta Mills CNP enoxaparin (LOVENOX) syringe 40 mg 40 mg Subcutaneous Daily in PM Tung Siddharth V, DPM gabapentin (NEURONTIN) capsule 300 mg 300 mg Oral Q8H KAM Mirta Mills CNP 300 mg at 08/06/20 0521 hydrALAZINE (APRESOLINE) tablet 25 mg 25 mg Oral Q6H PRN Mirta Mills CNP HYDROcodone-acetaminophen (NORCO) 5-325 mg per tablet 1 tablet 1 tablet Oral Q6H PRN Patrick Mayo MD 1 tablet at 08/05/20 0906 insulin glargine (LANTUS) injection 50 Units 50 Units Subcutaneous Nightly Patrick Maoy MD 50 Units at 08/05/20 2201 insulin lispro (HumaLOG) injection 0-15 Units 0-15 Units Subcutaneous at bedtime Patrick Mayo MD insulin lispro (HumaLOG) injection 0-30 Units 0-30 Units Subcutaneous TID AC Fior Mendoza CNP 9 Units at 08/04/20 1613 lactated Ringers infusion 50 mL/hr Intravenous Continuous Jet Calvillo DPM 50 mL/hr at 08/06/20 0728 50 mL/hr at 08/06/20 0728 magnesium hydroxide (MOM) 400 mg/5 mL suspension 2,400 mg 30 mL Oral Daily PRN Mirta Mills CNP methocarbamoL (ROBAXIN) tablet 500 mg 500 mg Oral TID PRN Mirta Mills CNP naloxone (NARCAN) injection 0.1 mg 0.1 mg Intravenous PRN Patrick Mayo MD And naloxone (NARCAN) injection 0.4 mg 0.4 mg Intravenous PRN Patrick Mayo MD naloxone (NARCAN) injection 0.1 mg 0.1 mg Intravenous PRN Monalisa Nair MD And naloxone (NARCAN) injection 0.4 mg 0.4 mg Intravenous PRN Monalisa Nair MD ondansetron (ZOFRAN) injection 4 mg 4 mg Intravenous Q6H PRN Patrick Mayo MD piperacillin-tazobactam (ZOSYN) IVPB 3.375 g (premix) 3.375 g Intravenous Q8H Patrick Mayo MD 12.5 mL/hr at 08/06/20 0810 3.375 g at 08/06/20 0810 senna-docusate (SENNA-S) 8.6-50 mg per tablet 1 tablet 1 tablet Oral BID Patrick Mayo MD 1 tablet at 08/06/20 0821 sodium chloride (PF) (NS) flush 5 mL 5 mL Intravenous PRN Fior Mendoza CNP And sodium chloride (PF) (NS) flush 5 mL 5 mL Intravenous Q8H KAM Fior Mendoza WEB MANAGER 5 mL at 08/06/20 0522 And sodium chloride 0.9% (NS) 0-150 mL/hr Intravenous PRN Fior Mendoza CNP 25 mL/hr at 08/05/20 2227 25 mL/hr at 08/05/20 2227 traZODone (DESYREL) tablet 50 mg 50 mg Oral Nightly PRN Patrick Mayo MD Lab Results Component Value Date WBC 7.51 08/06/2020 HGB 9.7 (L) 08/06/2020 HCT 30.3 (L) 08/06/2020 MCV 92.4 08/06/2020 PLT 330 08/06/2020 Lab Results Component Value Date GLUCOSE 86 08/06/2020 CALCIUM 8.8 08/06/2020 NA 143 08/06/2020 K 4.1 08/06/2020 CL 107 08/06/2020 BUN 14 08/06/2020 CREATININE 1.41 (H) 08/06/2020 Cultures: Negative Radiology: XR OR Fluoroscopy Time Final Result US Doppler ankle/brachial index Final Result Ultrasound duplex arterial leg left Final Result MR Heel Left Without Contrast Final Result 1. Xbymgqyx-tg-aqfus dorsal ulcer at the level the left 1st metatarsal base and shaft. Adjacent skin thickening and subcutaneous edema, likely cellulitis. No abscess. Suspected early osteomyelitis ofthe 1st metatarsal base and proximal shaft. 2. Small plantar ulceration at the 2nd MTP joint. No abscess or osteomyelitis. 3. No evidence of osteomyelitis at the heel. [employer] Workstation ID: [id number] MR Foot Left Without Contrast Final Result 1. Vugpisvq-ao-olyew dorsal ulcer at the level the left 1st metatarsal base and shaft. Adjacent skin thickening and subcutaneous edema, likely cellulitis. No abscess. Suspected early osteomyelitis ofthe 1st metatarsal base and proximal shaft. 2. Small plantar ulceration at the 2nd MTP joint. No abscess or osteomyelitis. 3. No evidence of osteomyelitis at the heel. [employer] Workstation ID: [id number] Rakesh Muñoz MD; pager * Elijah Vera, DPSonia - 08/06/2020 7:18 AM EDT Foot and Ankle Surgery Progress Note ASSESSMENT Mikayla Pappas 59 y.o. male with PMHx DM type II, HTN presents with left foot wounds with underlying osteomyelitis. Now S/p L foot I&D (DOS: 08/05/2020) - Afebrile, VSS - Labs reviewed - XR and MRI reviewed. - NIVS reviewed - Blood cultures (07/26) NGTD - Intraop swab Cx (07/29) - Normal skin mary - Intraop path, 1st MT (07/29) - 1st MT - focal minimal osteomyelitis - Intraop path, Medial cuneiform (07/29) - no osteomyelitis - Intraop path, 2nd MT - no osteomyelitis PLAN: - Continue Zosyn - Post operative dressing kept c/d/i. - NWB to LLE and postop shoe with assistive device. - Pt OK for discharge from a podiatry standpoint with PO abx, final recommendations per infectious disease. Pt to follow up with Dr. Calvillo in office as outpatient, information in AVS. - Patient to be discussed with Dr. Calvillo, further plan per attending physician SUBJECTIVE Pt evaluated at bedside. States doing well postoperatively. Denies nvfc. Denies new pedal complaints, overnight events. PHYSICAL EXAM Vital Signs BP 111/65 (BP Location: Right arm, Patient Position: Lying) Pulse 71 Temp 98.1 F (36.7 C) (Oral) Resp 16 Ht 5' 8 Wt 88.9 kg (196 lb) SpO2 93% BMI 29.80 kg/m Wt Readings from Last 25 Encounters: 07/29/20 88.9 kg (196 lb) 07/26/20 88.5 kg (195 lb) 07/26/20 90.7 kg (200 lb) 08/02/16 100.2 kg (221 lb) Ins & Outs Intake/Output Summary (Last 24 hours) at 08/06/2020 0718 Last data filed at 08/06/2020 0416 Gross per 24 hour Intake 1009.41 ml Output 1 ml Net 1008.41 ml General: Patient seen & evaluated at bedside. Patient in no apparent distress, resting comfortably in bed. Post operative dressing kept c/d/i per previous: LE Physical Exam: VASCULAR: DP pulse palpable, bilaterally and PT pulse palpable, bilaterally. CFT < 5 sec to all digits bilateral lower extremities. Severe edema appreciated to the level of the midfoot, left . NEUROLOGICAL: Light touch sensation intact to the level of the ankle, bilaterally. DERMATOLOGICAL: Left foot: Full-thickness wound noted to the dorsal and plantar aspect of left foot. Erythema extending from all digits to mid dorsal foot. No fluctuance or crepitus. Mild periwound erythema. Wound probes to bone and tendon. Granular base. No purulence or crepitus. Plantar 1st met head wound. Granular base. Mild periwound erythema. No purulence or crepitus. MUSCULOSKELETAL: No tenderness palpation to either wound mention above. Muscle strength 5 out of 5 bilateral. Gastric sole soleal equinus appreciated bilateral. LABS Lab Results Component Value Date WBC 7.51 08/06/2020 HGB 9.7 (L) 08/06/2020 HCT 30.3 (L) 08/06/2020 MCV 92.4 08/06/2020 PLT 330 08/06/2020 Lab Results Component Value Date GLUCOSE 86 08/06/2020 CALCIUM 8.8 08/06/2020 NA 143 08/06/2020 K 4.1 08/06/2020 CL 107 08/06/2020 BUN 14 08/06/2020 CREATININE 1.41 (H) 08/06/2020 XR OR Fluoroscopy Time Final Result US Doppler ankle/brachial index Final Result Ultrasound duplex arterial leg left Final Result MR Heel Left Without Contrast Final Result 1. Ujtgdlry-ds-nhueh dorsal ulcer at the level the left 1st metatarsal base and shaft. Adjacent skin thickening and subcutaneous edema, likely cellulitis. No abscess. Suspected early osteomyelitis ofthe 1st metatarsal base and proximal shaft. 2. Small plantar ulceration at the 2nd MTP joint. No abscess or osteomyelitis. 3. No evidence of osteomyelitis at the heel. [employer] Workstation ID: [id number] MR Foot Left Without Contrast Final Result 1. Uncigwhz-oa-gvtmo dorsal ulcer at the level the left 1st metatarsal base and shaft. Adjacent skin thickening and subcutaneous edema, likely cellulitis. No abscess. Suspected early osteomyelitis ofthe 1st metatarsal base and proximal shaft. 2. Small plantar ulceration at the 2nd MTP joint. No abscess or osteomyelitis. 3. No evidence of osteomyelitis at the heel. [employer] Workstation ID: [id number] * Rakesh Muñoz MD - 08/05/2020 1:48 PM EDT DAILY PROGRESS NOTE Patient Name: Mikayla Pappas MR #: [id number] Assessment and Plan: 1. Left foot infection post surgery, concern for metatarsal osteomyelitis with path pending currently on vancomycin and Zosyn empirically with no positive cultures 2. Diabetes-monitor glucose, management per hospitalist team 3. Hypertension on treatment, management per hospitalist team Disposition Comments: Will decide discharge antibiotic regimen as final data accumulates, pathology noted and suspect we may be able to utilize oral antibiotic therapy but await final data and scheduled for surgery 08/05 Subjective/Objective: Perpetual Assessment: Mikayla Pappas is a 59 y.o. male on hospital day 10 with hyperlipidemia, sleep apnea, hypertension, diabetes, with left foot ulceration cellulitis. Chief Complaint: Left foot infection HPI: Pain controlled tolerating antibiotics, await surgery 08/05 Review of Systems: The following system(s) were reviewed: Constitutional, GI,Skin Physical Examination: BP 124/69 Pulse 66 Temp 97.9 F (36.6 C) (Oral) Resp 16 Ht 5' 8 Wt 88.9 kg (196 lb) SpO2 94% BMI 29.80 kg/m General: NAD; Alert and oriented x3 Eyes: Conjunctiva and sclera clear Lungs: Clear without rales, rhonchi or wheezes; no increased respiratory effort Cardiovascular: RRR; no edema Abdomen: soft; non tender Extremities: No cyanosis or clubbing left foot wrapped Skin: No rashes or nodules; normal turgor Neurologic: No focal motor deficits Psych: Mood and affect appropriate Results/Medications Reviewed: Current Facility-Administered Medications Medication Dose Route Frequency Provider Last Rate Last Admin [JAN Hold] acetaminophen (TYLENOL) tablet 650 mg 650 mg Oral Q4H PRN Patrick Mayo MD [JAN Hold] aluminum-magnesium hydroxide-simethicone (MAALOX PLUS) 200-200-20 mg/5 mL suspension 30 mL 30 mL Oral 4x Daily PRN Mirta Mills CNP [JAN Hold] amLODIPine (NORVASC) tablet 10 mg 10 mg Oral Daily iFor Mendoza CNP 10 mg at 08/05/20904 [JAN Hold] ascorbic acid (vitamin C) (VITAMIN C) tablet 500 mg 500 mg Oral Daily Patrick Mayo MD 500 mg at 08/05/20904 [JAN Hold] bisacodyL (DULCOLAX) suppository 10 mg 10 mg Rectal Daily PRN Mirta Mills CNP [JAN Hold] cyanocobalamin (B-12) tablet 1,000 mcg 1,000 mcg Oral Daily Patrick Mayo MD 1,000 mcg at 08/05/20904 [JAN Hold] diphenhydrAMINE (BENADRYL) oral solid 25 mg 25 mg Oral Q6H PRN Mirta Mills CNP [JAN Hold] enoxaparin (LOVENOX) syringe 40 mg 40 mg Subcutaneous Daily in PM Tung Siddharth V, DPM [JAN Hold] gabapentin (NEURONTIN) capsule 300 mg 300 mg Oral Q8H KAM Mirta Mills CNP 300 mg at 08/05/20604 [JAN Hold] hydrALAZINE (APRESOLINE) tablet 25 mg 25 mg Oral Q6H PRN Mirta Mills CNP [JAN Hold] HYDROcodone-acetaminophen (NORCO) 5-325 mg per tablet 1 tablet 1 tablet Oral Q6H PRN Patrick Mayo MD 1 tablet at 08/05/20905 [JAN Hold] insulin glargine (LANTUS) injection 50 Units 50 Units Subcutaneous Nightly Patrick Mayo MD 50 Units at 08/04/20 2200 [JAN Hold] insulin lispro (HumaLOG) injection 0-15 Units 0-15 Units Subcutaneous at bedtime Patrick Mayo MD [JAN Hold] insulin lispro (HumaLOG) injection 0-30 Units 0-30 Units Subcutaneous TID AC Fior Mendoza, WEB MANAGER 9 Units at 08/04/20 1613 lactated Ringers infusion 50 mL/hr Intravenous Continuous Jet Calvillo DPM 50 mL/hr at 08/05/20 1148 50 mL/hr at 08/05/20 1148 [JAN Hold] magnesium hydroxide (MOM) 400 mg/5 mL suspension 2,400 mg 30 mL Oral Daily PRN Mirta Huddleston CNP [JAN Hold] methocarbamoL (ROBAXIN) tablet 500 mg 500 mg Oral TID PRN Mirta Mills CNP [JAN Hold] naloxone (NARCAN) injection 0.1 mg 0.1 mg Intravenous PRN Patrick Mayo MD And [JAN Hold] naloxone (NARCAN) injection 0.4 mg 0.4 mg Intravenous PRN Patrick Mayo MD naloxone (NARCAN) injection 0.1 mg 0.1 mg Intravenous PRN Monalisa Nair MD And naloxone (NARCAN) injection 0.4 mg 0.4 mg Intravenous PRN Monalisa Nair MD [JAN Hold] ondansetron (ZOFRAN) injection 4 mg 4 mg Intravenous Q6H PRN Patrick Mayo MD [JAN Hold] piperacillin-tazobactam (ZOSYN) IVPB 3.375 g (premix) 3.375 g Intravenous Q8H Patrick Mayo MD 12.5 mL/hr at 08/05/20 0606 3.375 g at 08/05/20 0606 [JAN Hold] senna-docusate (SENNA-S) 8.6-50 mg per tablet 1 tablet 1 tablet Oral BID Patrick Mayo MD 1 tablet at 08/03/20 0923 sodium chloride (NS) 0.9 % irrigation solution PRN Jet Calvillo DPM 3,000 mL at 08/05/20 1230 [JAN Hold] sodium chloride (PF) (NS) flush 5 mL 5 mL Intravenous PRN Fior Mendoza CNP And [JAN Hold] sodium chloride (PF) (NS) flush 5 mL 5 mL Intravenous Q8H KAM Fior Mendoza CNP 5 mL at 08/04/20 1547 And [JAN Hold] sodium chloride 0.9% (NS) 0-150 mL/hr Intravenous PRN Fior Mendoza CNP 5 mL/hr at 08/05/20 0700 5 mL/hr at 08/05/20 0700 [JAN Hold] traZODone (DESYREL) tablet 50 mg 50 mg Oral Nightly PRN Patrick Mayo MD Lab Results Component Value Date WBC 7.74 08/05/2020 HGB 10.1 (L) 08/05/2020 HCT 31.3 (L) 08/05/2020 MCV 92.9 08/05/2020 PLT 348 08/05/2020 Lab Results Component Value Date GLUCOSE 115 (H) 08/05/2020 CALCIUM 8.9 08/05/2020 NA 141 08/05/2020 K 4.0 08/05/2020 CL 107 08/05/2020 BUN 13 08/05/2020 CREATININE 1.19 08/05/2020 Cultures: Pending Radiology: XR OR Fluoroscopy Time Final Result US Doppler ankle/brachial index Final Result Ultrasound duplex arterial leg left Final Result MR Heel Left Without Contrast Final Result 1. Tsvsnpwe-kv-xethk dorsal ulcer at the level the left 1st metatarsal base and shaft. Adjacent skin thickening and subcutaneous edema, likely cellulitis. No abscess. Suspected early osteomyelitis ofthe 1st metatarsal base and proximal shaft. 2. Small plantar ulceration at the 2nd MTP joint. No abscess or osteomyelitis. 3. No evidence of osteomyelitis at the heel. [facility]/[employer] Workstation ID: [id number] MR Foot Left Without Contrast Final Result 1. Ztcezdge-zg-rhtgg dorsal ulcer at the level the left 1st metatarsal base and shaft. Adjacent skin thickening and subcutaneous edema, likely cellulitis. No abscess. Suspected early osteomyelitis ofthe 1st metatarsal base and proximal shaft. 2. Small plantar ulceration at the 2nd MTP joint. No abscess or osteomyelitis. 3. No evidence of osteomyelitis at the heel. [facility] Workstation ID: [id number] Rakesh Muñoz MD; pager * Reji Fior Vaishnavi, WEB MANAGER - 08/05/2020 10:18 AM EDT [facility] [place] Assessment and Plan Mikayla Pappas is a 59 y.o. male patient of Isis Rincon DO with history of DM type II, HTN,left foot wound presented with worsening left foot wound. Left diabetic foot ulcer w/out sepsis XR L foot (07/26) no acute bony abnormality MRI L foot/heel (07/26) suspected early OM NIVS (07/27) no evidence of significant stenosis, normal perfusion Blood cx (07/26) NGTD; Wound cx (07/26) normal skin mary Consulted Podiatry and ID S/p left foot I&D and bone bx's (07/29) Surgical cx (07/29) pending; no surgical pathology sent Vanco/Zosyn started (07/26) OR return planned for 08/05 Final antibiotics per ID BAILEE Baseline Cr normal; Cr elevated 1.38 (07/31) Had high vanc trough initially Held home losartan Urine studies negative IVF's given with resolution Cr 1.1 (08/05) IDDM2, uncontrolled A1c 13.5%; pt states he has been running low on insulin and rationing due to costs Home regimen: glipizide and Janumet, Lantus and Humalog SSi Held home orals; started on Lantus and SSI Accuchecks and diabetic diet Consulted adult educator Will need Rx for basaglar/pen needles at dc Added prandial 08/04 to optimize glucose Glucose 115 (08/05) Essential HTN Held home Losartan for BAILEE PO hydralazine prn Restarted home losartan 08/02 and holding for OR Norvasc added 08/04 LORENA Autopap prn Encourage IS and OOB as tolerated Neuropathy Continue home gabapentin Code Status: Full Code Quality Measures DVT Prophylaxis: Lovenox Todd Catheter: Absent Disposition Discharge Location: Pending Estimated Discharge Date: pending OR 08/05 and antibiotic final plan. May be able to go on orals Outpatient Testing: Pending Subjective Pt sitting up in bed. Worried about his foot. Tolerating PO intake. + flatus and urinating without issues. No fever or chills. Glucose up slightly today. Review of Systems All systems have been reviewed and are negative except as noted in HPI or below Objective BP (!) 148/72 (BP Location: Left arm, Patient Position: Lying) Pulse 73 Temp 98 F (36.7 C) (Oral) Resp 14 Ht 5' 8 Wt 88.9 kg (196 lb) SpO2 94% BMI 29.80 kg/m Physical Examination General Appearance: alert and in no acute distress HEENT: Head- normocephalic; Eyes- PERRLA, EOMI; Ears- external auditory canals clear, hearing intact; Nose- no nasal discharge; Throat- oropharynx normal Cardiovascular: regular rate and rhythm; normal S1, S2; no murmurs, rubs, clicks or gallops; no peripheral edema Respiratory: lungs clear to auscultation; without wheezes, rales or rhonchi. On room air. Abdomen: soft, non-tender, non-distended; positive bowel sounds, overweight Neurological: alert, oriented x 3, normal speech; no focal findings or movement disorder noted Musculoskeletal: no significant deformity or tenderness to palpation. Left foot drsg intact Skin: normal coloration, texture and turgor; no lesions or eruptions Psych: normal mood and affect Results/Medications Reviewed 08/05/20 10:18 AM Laboratory, Microbiology, Cardiology, Medications and Transcriptions * Nolan Messina DPM - 08/05/2020 4:44 AM EDT Foot and Ankle Surgery Progress Note ASSESSMENT Mikayla Pappas 59 y.o. male with PMHx DM type II, HTN presents with left foot wounds with underlying osteomyelitis. S/P Left foot I&D, bone biopsies (DOS 07/29/2020) - Afebrile, VSS - Labs reviewed - XR: 07/26 no evidence of acute osteomyelitis. - MRI: 07/26 Suspected early osteomyelitis of the 1st metatarsal base and proximal shaft. Small plantar ulceration at the 2nd MTP joint. No abscess or osteomyelitis. No evidence of osteomyelitis at the heel. - NIVS: 07/26 Right: ANUP 1.22, TBI 0.93 no evidence of HDSS, Left: ANUP 1.27, TBI 0.55 no evidence of HDSS - Blood cultures (07/26) NGTD - Intraop swab Cx (07/29) - Normal skin mary - Intraop path, 1st MT (07/29) - 1st MT - focal minimal osteomyelitis - Intraop path, Medial cuneiform (07/29) - no osteomyelitis - Intraop path, 2nd MT - no osteomyelitis PLAN: - Zosyn - Dressing applied: DSD, Kerlix, Spencer - NWB to LLE and postop shoe with assistive device. - Patient has preoperative risk stratification, [place] [facility] [place]. - Plan for OR today 08/05. NPO since midnight. Abx recs per ID. - Patient to be discussed with Dr. Calvillo, further plan per attending physician SUBJECTIVE Pt evaluated at bedside. States doing well postoperatively. Denies nvfc. Denies new pedal complaints, overnight events. Questions and concerns were addressed. NPO since midnight. PHYSICAL EXAM Vital Signs BP 123/71 (BP Location: Right arm, Patient Position: Lying) Pulse 73 Temp 98.4 F (36.9 C) (Oral) Resp 16 Ht 5' 8 Wt 88.9 kg (196 lb) SpO2 95% BMI 29.80 kg/m Wt Readings from Last 25 Encounters: 07/29/20 88.9 kg (196 lb) 07/26/20 88.5 kg (195 lb) 07/26/20 90.7 kg (200 lb) 08/02/16 100.2 kg (221 lb) Ins & Outs Intake/Output Summary (Last 24 hours) at 08/05/2020 0447 Last data filed at 08/04/2020 0949 Gross per 24 hour Intake 240 ml Output Net 240 ml General: Patient seen & evaluated at bedside. Patient in no apparent distress, resting comfortably in bed. LE Physical Exam: VASCULAR: DP pulse palpable, bilaterally and PT pulse palpable, bilaterally. CFT < 5 sec to all digits bilateral lower extremities. Severe edema appreciated to the level of the midfoot, left . NEUROLOGICAL: Light touch sensation intact to the level of the ankle, bilaterally. DERMATOLOGICAL: Left foot: Full-thickness wound noted to the dorsal and plantar aspect of left foot. Erythema extending from all digits to mid dorsal foot. No fluctuance or crepitus. Mild periwound erythema. Wound probes to bone and tendon. Granular base. No purulence or crepitus. Plantar 1st met head wound. Granular base. Mild periwound erythema. No purulence or crepitus. MUSCULOSKELETAL: No tenderness palpation to either wound mention above. Muscle strength 5 out of 5 bilateral. Gastric sole soleal equinus appreciated bilateral. LABS Lab Results Component Value Date WBC 6.37 07/29/2020 HGB 10.5 (L) 07/29/2020 HCT 31.8 (L) 07/29/2020 MCV 89.6 07/29/2020 PLT 298 07/29/2020 Lab Results Component Value Date GLUCOSE 139 (H) 08/01/2020 CALCIUM 8.7 08/01/2020 NA 138 08/01/2020 K 3.7 08/01/2020 CL 106 08/01/2020 BUN 12 08/01/2020 CREATININE 1.20 08/03/2020 XR OR Fluoroscopy Time Final Result US Doppler ankle/brachial index Final Result Ultrasound duplex arterial leg left Final Result MR Heel Left Without Contrast Final Result 1. Zlctuhxe-tx-hzwsr dorsal ulcer at the level the left 1st metatarsal base and shaft. Adjacent skin thickening and subcutaneous edema, likely cellulitis. No abscess. Suspected early osteomyelitis ofthe 1st metatarsal base and proximal shaft. 2. Small plantar ulceration at the 2nd MTP joint. No abscess or osteomyelitis. 3. No evidence of osteomyelitis at the heel. [employer] Workstation ID: [id number] MR Foot Left Without Contrast Final Result 1. Plefxgab-dv-sffeo dorsal ulcer at the level the left 1st metatarsal base and shaft. Adjacent skin thickening and subcutaneous edema, likely cellulitis. No abscess. Suspected early osteomyelitis ofthe 1st metatarsal base and proximal shaft. 2. Small plantar ulceration at the 2nd MTP joint. No abscess or osteomyelitis. 3. No evidence of osteomyelitis at the heel. [employer] Workstation ID: [id number] * Yoselyn Donahue RD - 08/04/2020 2:47 PM EDT Nutrition Care Follow Up Monitoring and Evaluation: PO intake was 75 % or greater at most meals Nutrition Diagnosis: Increased nutrient needs related to L DM foot ulcer as evidenced by estimated protein needs. Not Resolved Nutrition Intervention: Continue Meal and Snacks Nutrition Prescription: Diet: DM 60g/meal Oral nutrition supplement: none Nutrition Goals: PO intake > 75% most meals Start Date:08/04/2020 Expected End Date:08/11/2020 Nutrition Education: No needs at this time Assessment: Pertinent clinical information: Plans for return to OR with podiatry 08/05. Current weight: 88.9 kg (196 lb) Body mass index is 29.8 kg/m . Weight: No new weights. Current diet order: DM 60g/meal Recent intake: 75-100%. Current intake likely meets estimated needs. Patient/family comments: Pt continues with a good appetite and good intakes. No complaints. Difficulty Chewing/Swallowing: No Skin Integrity: L foot surgical wound noted GI Function: LBM 08/03/20 Labs: Recent Labs 08/03/20 0454 CREATININE 1.20 Scheduled Meds: amLODIPine 10 mg Oral Daily ascorbic acid (vitamin C) 500 mg Oral Daily cyanocobalamin 1,000 mcg Oral Daily enoxaparin (LOVENOX) injection 40 mg Subcutaneous Daily in PM gabapentin 300 mg Oral Q8H KAM insulin glargine 50 Units Subcutaneous Nightly lispro insulin 0-15 Units Subcutaneous at bedtime insulin lispro 0-30 Units Subcutaneous TID AC piperacillin-tazobactam (ZOSYN) extended infusion 3.375 g Intravenous Q8H senna-docusate 1 tablet Oral BID sodium chloride (PF) 5 mL Intravenous Q8H KAM Continuous Infusions: sodium chloride 0.9 % Stopped (08/04/20 1312) Estimated Energy Needs Total Energy Estimated Needs: 2121-2101 kcal Method for Estimating Needs: 25-30 kcl/kg IBW Total Protein Estimated Needs: 70-91g Method for Estimating Needs: 1.0-1.3 g/kg IBW Yoselyn Donahue RD, LD, [facility] * Rakesh Muñoz MD - 08/04/2020 10:24 AM EDT DAILY PROGRESS NOTE Patient Name: Mikayla Pappas MR #: [id number] Assessment and Plan: 1. Left foot infection post surgery, concern for metatarsal osteomyelitis with path pending currently on vancomycin and Zosyn empirically with no positive cultures 2. Diabetes-monitor glucose, management per hospitalist team 3. Hypertension on treatment, management per hospitalist team Disposition Comments: Will decide discharge antibiotic regimen as final data accumulates, pathology noted and suspect we may be able to utilize oral antibiotic therapy but await final data and scheduled for surgery 08/05 Subjective/Objective: Perpetual Assessment: Mikayla Pappas is a 59 y.o. male on hospital day 9 with hyperlipidemia, sleep apnea, hypertension, diabetes, with left foot ulceration cellulitis. Chief Complaint: Left foot infection HPI: Pain controlled tolerating antibiotics, await surgery 08/05 Review of Systems: The following system(s) were reviewed: Constitutional, GI,Skin Physical Examination: BP (!) 147/75 (BP Location: Left arm, Patient Position: Lying) Pulse 68 Temp 98.1 F (36.7 C) (Oral) Resp 14 Ht 5' 8 Wt 88.9 kg (196 lb) SpO2 94% BMI 29.80 kg/m General: NAD; Alert and oriented x3 Eyes: Conjunctiva and sclera clear Lungs: Clear without rales, rhonchi or wheezes; no increased respiratory effort Cardiovascular: RRR; no edema Abdomen: soft; non tender Extremities: No cyanosis or clubbing left foot wrapped Skin: No rashes or nodules; normal turgor Neurologic: No focal motor deficits Psych: Mood and affect appropriate Results/Medications Reviewed: Current Facility-Administered Medications Medication Dose Route Frequency Provider Last Rate Last Admin acetaminophen (TYLENOL) tablet 650 mg 650 mg Oral Q4H PRN Patrick Mayo MD aluminum-magnesium hydroxide-simethicone (MAALOX PLUS) 200-200-20 mg/5 mL suspension 30 mL 30 mL Oral 4x Daily PRN Mirta Mills CNP amLODIPine (NORVASC) tablet 10 mg 10 mg Oral Daily Fior Mendoza CNP ascorbic acid (vitamin C) (VITAMIN C) tablet 500 mg 500 mg Oral Daily Patrick Mayo MD 500mg at 08/04/20 0842 bisacodyL (DULCOLAX) suppository 10 mg 10 mg Rectal Daily PRN Mirta Mills CNP cyanocobalamin (B-12) tablet 1,000 mcg 1,000 mcg Oral Daily Patrick Mayo MD 1,000 mcg at 08/04/20 0842 diphenhydrAMINE (BENADRYL) oral solid 25 mg 25 mg Oral Q6H PRN Mirta Mills CNP enoxaparin (LOVENOX) syringe 40 mg 40 mg Subcutaneous Daily in PM Nate Cazares DPM 40 mg at08/03/202001 gabapentin (NEURONTIN) capsule 300 mg 300 mg Oral Q8H [facility] Mirta Mills CNP 300 mg at 08/04/20 0451 hydrALAZINE (APRESOLINE) tablet 25 mg 25 mg Oral Q6H PRN Mirta Mills CNP HYDROcodone-acetaminophen (NORCO) 5-325 mg per tablet 1 tablet 1 tablet Oral Q6H PRN Patrick Mayo MD 1 tablet at 07/30/202028 insulin glargine (LANTUS) injection 50 Units 50 Units Subcutaneous Nightly Patrick Mayo MD 50 Units at 08/03/202117 insulin lispro (HumaLOG) injection 0-15 Units 0-15 Units Subcutaneous at bedtime Patrick Mayo MD insulin lispro (HumaLOG) injection 0-30 Units 0-30 Units Subcutaneous TID AC Fior Mendoza CNP 9 Units at 08/04/20 0843 magnesium hydroxide (MOM) 400 mg/5 mL suspension 2,400 mg 30 mL Oral Daily PRN Mirta Mills CNP methocarbamoL (ROBAXIN) tablet 500 mg 500 mg Oral TID PRN Mirta Mills CNP naloxone (NARCAN) injection 0.1 mg 0.1 mg Intravenous PRN Patrick Mayo MD And naloxone (NARCAN) injection 0.4 mg 0.4 mg Intravenous PRN Patrick Mayo MD ondansetron (ZOFRAN) injection 4 mg 4 mg Intravenous Q6H PRN Patrick Mayo MD piperacillin-tazobactam (ZOSYN) IVPB 3.375 g (premix) 3.375 g Intravenous Q8H Patrick Mayo MD 12.5 mL/hr at 08/04/20 0848 3.375 g at 08/04/20 0848 senna-docusate (SENNA-S) 8.6-50 mg per tablet 1 tablet 1 tablet Oral BID Patrick Mayo MD 1 tablet at 08/03/20 0923 sodium chloride (PF) (NS) flush 5 mL 5 mL Intravenous PRN Fior Mendoza CNP And sodium chloride (PF) (NS) flush 5 mL 5 mL Intravenous Q8H KAM Fior Mendoza CNP 5 mL at 08/04/20 0452 And sodium chloride 0.9% (NS) 0-150 mL/hr Intravenous PRN Fior Mendoza CNP 25 mL/hr at 08/04/20 0847 25 mL/hr at 08/04/20 0847 traZODone (DESYREL) tablet 50 mg 50 mg Oral Nightly PRN Patrick Mayo MD Lab Results Component Value Date WBC 6.37 07/29/2020 HGB 10.5 (L) 07/29/2020 HCT 31.8 (L) 07/29/2020 MCV 89.6 07/29/2020 PLT 298 07/29/2020 Lab Results Component Value Date GLUCOSE 139 (H) 08/01/2020 CALCIUM 8.7 08/01/2020 NA 138 08/01/2020 K 3.7 08/01/2020 CL 106 08/01/2020 BUN 12 08/01/2020 CREATININE 1.20 08/03/2020 Cultures: Pending Radiology: XR OR Fluoroscopy Time Final Result US Doppler ankle/brachial index Final Result Ultrasound duplex arterial leg left Final Result MR Heel Left Without Contrast Final Result 1. Zxmfikyq-kt-llxxh dorsal ulcer at the level the left 1st metatarsal base and shaft. Adjacent skin thickening and subcutaneous edema, likely cellulitis. No abscess. Suspected early osteomyelitis ofthe 1st metatarsal base and proximal shaft. 2. Small plantar ulceration at the 2nd MTP joint. No abscess or osteomyelitis. 3. No evidence of osteomyelitis at the heel. [employer] Workstation ID: [id number] MR Foot Left Without Contrast Final Result 1. Btkvuonz-qs-ypxwm dorsal ulcer at the level the left 1st metatarsal base and shaft. Adjacent skin thickening and subcutaneous edema, likely cellulitis. No abscess. Suspected early osteomyelitis ofthe 1st metatarsal base and proximal shaft. 2. Small plantar ulceration at the 2nd MTP joint. No abscess or osteomyelitis. 3. No evidence of osteomyelitis at the heel. [employer] Workstation ID: [id number] Rakesh Muñoz MD; pager * Fior Mendoza, [facility] - 08/04/2020 10:09 AM EDT [facility] [place]GR[place] Assessment and Plan Mikayla Pappas is a 59 y.o. male patient of Isis Rincon DO with history of DM type II, HTN,left foot wound presented with worsening left foot wound. Left diabetic foot ulcer w/out sepsis XR L foot (07/26) no acute bony abnormality MRI L foot/heel (07/26) suspected early OM NIVS (07/27) no evidence of significant stenosis, normal perfusion Blood cx (07/26) NGTD; Wound cx (07/26) normal skin mary Consulted Podiatry and ID S/p left foot I&D and bone bx's (07/29) Surgical cx (07/29) pending; no surgical pathology sent Vanco/Zosyn started (07/26) OR return planned for 08/[address] Muñoz 08/04 and may only need oral antibiotics. Awaiting final plan BAILEE Baseline Cr normal; Cr elevated 1.38 (07/31) Had high vanc trough initially Held home losartan Urine studies negative IVF's given with resolution 08/01 with Cr 1.1 Now slight up tick with restart of losartan - Cr 1.2 08/03 Follow closely IDDM2, uncontrolled A1c 13.5%; pt states he has been running low on insulin and rationing due to costs Home regimen: glipizide and Janumet, Lantus 55U QAM and Humalog SSi Hold home orals; started on Lantus 50U QHS and Humalog correctional SSI (normal) Will monitor insulin needs and augment as needed Accuchecks and diabetic diet Consult adult educator Will need Rx for basaglar/pen needles at dc Added prandial 08/04 to optimize glucose Essential HTN Held home Losartan for BAILEE PO hydralazine prn Restarted home losartan 08/02 and holding for OR Adding norvasc for now LORENA Autopap prn Encourage IS and OOB as tolerated Neuropathy Continue home gabapentin Code Status: Full Code Quality Measures DVT Prophylaxis: Lovenox Todd Catheter: Absent Disposition Discharge Location: Pending Estimated Discharge Date: pending OR 08/05 and antibiotic final plan. May be able to go on orals Outpatient Testing: Pending Subjective Pt sitting up in bed. Worried about his foot. Tolerating PO intake. + flatus and urinating without issues. No fever or chills. Glucose up slightly today. Review of Systems All systems have been reviewed and are negative except as noted in HPI or below Objective BP (!) 147/75 (BP Location: Left arm, Patient Position: Lying) Pulse 68 Temp 98.1 F (36.7 C) (Oral) Resp 14 Ht 5' 8 Wt 88.9 kg (196 lb) SpO2 94% BMI 29.80 kg/m Physical Examination General Appearance: alert and in no acute distress HEENT: Head- normocephalic; Eyes- PERRLA, EOMI; Ears- external auditory canals clear, hearing intact; Nose- no nasal discharge; Throat- oropharynx normal Cardiovascular: regular rate and rhythm; normal S1, S2; no murmurs, rubs, clicks or gallops; no peripheral edema Respiratory: lungs clear to auscultation; without wheezes, rales or rhonchi. On room air. Abdomen: soft, non-tender, non-distended; positive bowel sounds, overweight Neurological: alert, oriented x 3, normal speech; no focal findings or movement disorder noted Musculoskeletal: no significant deformity or tenderness to palpation. Left foot drsg intact Skin: normal coloration, texture and turgor; no lesions or eruptions Psych: normal mood and affect Results/Medications Reviewed 08/04/20 10:09 AM Laboratory, Microbiology, Cardiology, Medications and Transcriptions * Nolan Messina DPM - 08/04/2020 4:53 AM EDT Foot and Ankle Surgery Progress Note ASSESSMENT Mikayla Pappas 59 y.o. male with PMHx DM type II, HTN presents with left foot wounds with concern for deep infection. S/P Left foot I&D, bone biopsies (DOS 07/29/2020) - Afebrile, VSS - Labs reviewed - Imaging reviewed: XR: 07/26 no evidence of acute osteomyelitis. MRI: 07/26 Suspected early osteomyelitis of the 1st metatarsal base and proximal shaft. Small plantar ulceration at the 2nd MTP joint. No abscess or osteomyelitis. No evidence of osteomyelitis at the heel. - NIVS: 07/26 Right: ANUP 1.22, TBI 0.93 no evidence of HDSS, Left: ANUP 1.27, TBI 0.55 no evidence of HDSS - Blood cultures (07/26) NGTD - Swab culture (07/26): GPC, GNB, GND - Intraop swab Cx (07/29) - Normal skin mary - Intraop path, 1st MT (07/29) - 1st MT - focal minimal osteomyelitis - Intraop path, Medial cuneiform (07/29) - no osteomyelitis - Intraop path, 2nd MT - no osteomyelitis PLAN: - Dressing applied: DSD, Kerlix, Spencer - NWB to LLE and postop shoe with assistive device. - Matthew - Patient has preoperative risk stratification, [place] [facility] - Continue IV Abx with local wound care. Plan for OR tomorrow 08/05. NPO at midnight. - Patient discussed with Dr. Calvillo, further plan per attending physician SUBJECTIVE Pt evaluated at bedside. States doing well postoperatively. Denies nvfc. Denies new pedal complaints, overnight events. Discussed the surgical plan moving forward. Will return to obtain consent. PHYSICAL EXAM Vital Signs BP (!) 164/72 (BP Location: Left arm, Patient Position: Lying) Pulse 77 Temp 98.2 F (36.8 C) (Oral) Resp 14 Ht 5' 8 Wt 88.9 kg (196 lb) SpO2 95% BMI 29.80 kg/m Wt Readings from Last 25 Encounters: 07/29/20 88.9 kg (196 lb) 07/26/20 88.5 kg (195 lb) 07/26/20 90.7 kg (200 lb) 08/02/16 100.2 kg (221 lb) Ins & Outs Intake/Output Summary (Last 24 hours) at 08/04/2020 0455 Last data filed at 08/04/2020 0442 Gross per 24 hour Intake 1745 ml Output 500 ml Net 1245 ml General: Patient seen & evaluated at bedside. Patient in no apparent distress, resting comfortably in bed. LE Physical Exam: VASCULAR: DP pulse palpable, bilaterally and PT pulse palpable, bilaterally. CFT < 5 sec to all digits bilateral lower extremities. Severe edema appreciated to the level of the midfoot, left . NEUROLOGICAL: Light touch sensation intact to the level of the ankle, bilaterally. DERMATOLOGICAL: Left foot: Full-thickness wound noted to the dorsal and plantar aspect of left foot. Erythema extending from all digits to mid dorsal foot. No fluctuance or crepitus. Mild periwound erythema. Wound probes to bone and tendon. Granular base. No purulence or crepitus. Plantar 1st met head wound. Granular base. Mild periwound erythema. No purulence or crepitus. MUSCULOSKELETAL: No tenderness palpation to either wound mention above. Muscle strength 5 out of 5 bilateral. Gastric sole soleal equinus appreciated bilateral. LABS Lab Results Component Value Date WBC 6.37 07/29/2020 HGB 10.5 (L) 07/29/2020 HCT 31.8 (L) 07/29/2020 MCV 89.6 07/29/2020 PLT 298 07/29/2020 Lab Results Component Value Date GLUCOSE 139 (H) 08/01/2020 CALCIUM 8.7 08/01/2020 NA 138 08/01/2020 K 3.7 08/01/2020 CL 106 08/01/2020 BUN 12 08/01/2020 CREATININE 1.20 08/03/2020 XR OR Fluoroscopy Time Final Result US Doppler ankle/brachial index Final Result Ultrasound duplex arterial leg left Final Result MR Heel Left Without Contrast Final Result 1. Xxeppopu-lg-pxqjt dorsal ulcer at the level the left 1st metatarsal base and shaft. Adjacent skin thickening and subcutaneous edema, likely cellulitis. No abscess. Suspected early osteomyelitis ofthe 1st metatarsal base and proximal shaft. 2. Small plantar ulceration at the 2nd MTP joint. No abscess or osteomyelitis. 3. No evidence of osteomyelitis at the heel. [employer] Workstation ID: [id number] MR Foot Left Without Contrast Final Result 1. Caibowre-bu-ezcyr dorsal ulcer at the level the left 1st metatarsal base and shaft. Adjacent skin thickening and subcutaneous edema, likely cellulitis. No abscess. Suspected early osteomyelitis ofthe 1st metatarsal base and proximal shaft. 2. Small plantar ulceration at the 2nd MTP joint. No abscess or osteomyelitis. 3. No evidence of osteomyelitis at the heel. [employer] Workstation ID: [id number] * Howard Yates OTA - 08/03/2020 3:23 PM EDT Occupational Therapy OCCUPATIONAL THERAPY TREATMENT NOTE Skilled Therapy Needs After Discharge Anticipate Resolution of Current Assessment Limitations Including: Pain, Mechanical Barriers, Social Support Are Skilled Therapy Services Needed After Discharge: No DME Recommendation: None Rehab Potential: Good Outcomes Measures Prior Function Daily Activity: Raw Score: 24 Prior Function Daily Activity % Impaired: 0% functionally impaired AM-PAC Daily Activity: Raw Score: 17 AM-PAC Daily Activity % Impaired: 50.11% functionally impaired Activity Tolerance Pt tolerates 10-15 minutes activity during treatment session. Therapy Precautions Orthotic Devices: No Weight Bearing Status: X LLE: Non Wt bearing General Rehab Precautions: Fall risk Cognition Overall Cognitive Status: Impaired Arousal/Alertness: Appropriate responses to stimuli Orientation Level: Oriented X4 Executive functioning: Insight, Min impairment Safety Judgment: Decreased awareness of need for safety Problem Solving: Assistance required to identify errors made, Assistance required to generate solutions Attention: Attends to quiet environment Hearing Status: WFL Social Interaction: Appropriate, Cooperative Comments: 100% 2 step command following Skilled Intervention: Therapist re-orients pt to LLE NWB precatuions with pt verbalizing awareness and able to recall 2 techniques from previous session with pt unable to maintain NWB throughout session despite various compensatory strategies and cues while ambulating to restroom. ADL/IADL Toileting : Stand by assistance(standard commode ) Skilled Intervention: Therapist facilitates toileting with pt declining need however able to urinate upon trial. Min vebal cues for utilization of grab bar while completing clothing management for safety with pt demonstrating understanding. Bed Mobility Skilled Intervention: Pt up in chair upon initiation and completion of session. Functional Transfers Sit to Stand: Contact guard(high chair in room ) Toilet Transfers: Contact Guard Skilled Intervention: Min verbal cues for utilization of grab bar for toilet transfer and awarenessof LLE NWB precations/strategies using WW. Pt reports trial of knee walker in the past with poor success. Home Living Type of Home: House Home Layout: Multi-level, Work area in basement, Bed/bath upstairs(6-8 steps, split level) Bathroom Shower/Tub: Tub/shower unit Bathroom Toilet: Standard Home Equipment: Wheeled Walker, Cane Prior Level of Function Level of [place]: Independent with ADLs and functional transfers, Independent with homemaking with ambulation Lives With: Alone Receives Help From: Friend(s) For complete objective data, detailed plan of care and patient education refer to: OT EVALUATION flow sheet, OT TREATMENT flow sheet, patient Plan of Care, Plan of Care progress note, and Patient Education. This note stands as the current Discharge Summary upon patient discharge from the hospital or completion of Occupational Therapy Plan of Care. * Rakesh Muñoz MD - 08/03/2020 2:11 PM EDT DAILY PROGRESS NOTE Patient Name: Mikayla Pappas MR #: [id number] Assessment and Plan: 1. Left foot infection post surgery, concern for metatarsal osteomyelitis with path pending currently on vancomycin and Zosyn empirically with no positive cultures 2. Diabetes-monitor glucose, management per hospitalist team 3. Hypertension on treatment, management per hospitalist team Disposition Comments: Will decide discharge antibiotic regimen as final data accumulates, pathology noted and suspect we may be able to utilize oral antibiotic therapy but await final data Subjective/Objective: Perpetual Assessment: Mikayla Pappas is a 59 y.o. male on hospital day 8 with hyperlipidemia, sleep apnea, hypertension, diabetes, with left foot ulceration cellulitis. Chief Complaint: Left foot infection HPI: Pain controlled tolerating antibiotics Review of Systems: The following system(s) were reviewed: Constitutional, GI,Skin Physical Examination: BP (!) 142/72 Pulse 72 Temp 98 F (36.7 C) (Oral) Resp 16 Ht 5' 8 Wt 88.9 kg (196 lb) SpO2 98% BMI 29.80 kg/m General: NAD; Alert and oriented x3 Eyes: Conjunctiva and sclera clear Lungs: Clear without rales, rhonchi or wheezes; no increased respiratory effort Cardiovascular: RRR; no edema Abdomen: soft; non tender Extremities: No cyanosis or clubbing left foot wrapped Skin: No rashes or nodules; normal turgor Neurologic: No focal motor deficits Psych: Mood and affect appropriate Results/Medications Reviewed: Current Facility-Administered Medications Medication Dose Route Frequency Provider Last Rate Last Admin acetaminophen (TYLENOL) tablet 650 mg 650 mg Oral Q4H PRN Patrick Mayo MD aluminum-magnesium hydroxide-simethicone (MAALOX PLUS) 200-200-20 mg/5 mL suspension 30 mL 30 mL Oral 4x Daily PRN Mirta Mills CNP ascorbic acid (vitamin C) (VITAMIN C) tablet 500 mg 500 mg Oral Daily Patrick Mayo MD 500mg at 08/03/20 0827 bisacodyL (DULCOLAX) suppository 10 mg 10 mg Rectal Daily PRN Mirta Mills CNP cyanocobalamin (B-12) tablet 1,000 mcg 1,000 mcg Oral Daily Patrick Mayo MD 1,000 mcg at 08/03/20 0827 diphenhydrAMINE (BENADRYL) oral solid 25 mg 25 mg Oral Q6H PRN Mirta Mills CNP enoxaparin (LOVENOX) syringe 40 mg 40 mg Subcutaneous Daily in PM Nate Cazares DPM 40 mg at08/02/202113 gabapentin (NEURONTIN) capsule 300 mg 300 mg Oral Q8H KAM Mirta Mills CNP 300 mg at 08/03/20 1209 hydrALAZINE (APRESOLINE) tablet 25 mg 25 mg Oral Q6H PRN Mirta Mills CNP HYDROcodone-acetaminophen (NORCO) 5-325 mg per tablet 1 tablet 1 tablet Oral Q6H PRN Patrick Mayo MD 1 tablet at 07/30/202028 insulin glargine (LANTUS) injection 50 Units 50 Units Subcutaneous Nightly Patrick Mayo MD 50 Units at 08/02/202113 insulin lispro (HumaLOG) injection 0-15 Units 0-15 Units Subcutaneous at bedtime Patrick Mayo MD insulin lispro (HumaLOG) injection 0-30 Units 0-30 Units Subcutaneous TID AC Patrick Mayo MD 4 Units at 08/03/20 1208 losartan (COZAAR) tablet 25 mg 25 mg Oral Daily with lunch Fior Mendoza CNP 25 mg at 08/03/20 1210 magnesium hydroxide (MOM) 400 mg/5 mL suspension 2,400 mg 30 mL Oral Daily PRN Mirta Mills CNP methocarbamoL (ROBAXIN) tablet 500 mg 500 mg Oral TID PRN Mirta Mills CNP naloxone (NARCAN) injection 0.1 mg 0.1 mg Intravenous PRN Patrick Mayo MD And naloxone (NARCAN) injection 0.4 mg 0.4 mg Intravenous PRN Patrick Mayo MD ondansetron (ZOFRAN) injection 4 mg 4 mg Intravenous Q6H PRN Patrick Mayo MD piperacillin-tazobactam (ZOSYN) IVPB 3.375 g (premix) 3.375 g Intravenous Q8H Patrick Mayo MD 12.5 mL/hr at 08/03/20 0627 3.375 g at 08/03/20 0627 senna-docusate (SENNA-S) 8.6-50 mg per tablet 1 tablet 1 tablet Oral BID Patrick Mayo MD 1 tablet at 08/03/20 0923 sodium chloride (PF) (NS) flush 5 mL 5 mL Intravenous PRN Fior Mendoza CNP And sodium chloride (PF) (NS) flush 5 mL 5 mL Intravenous Q8H KAM Fior Mendoza CNP 5 mL at 08/03/20 0628 And sodium chloride 0.9% (NS) 0-150 mL/hr Intravenous PRN Fior Márquezpadma Mendoza, WEB MANAGER 25 mL/hr at 08/03/20 0922 25 mL/hr at 08/03/20 0922 traZODone (DESYREL) tablet 50 mg 50 mg Oral Nightly PRN Patrick Mayo MD vancomycin (VANCOCIN) 1250 mg in sodium chloride 0.9% (NS) 250 mL IVPB 1,250 mg Intravenous Q24H Azul Ortiz [facility],PharmD 250 mL/hr at 08/03/20 0924 1,250 mg at 08/03/20 0924 Lab Results Component Value Date WBC 6.37 07/29/2020 HGB 10.5 (L) 07/29/2020 HCT 31.8 (L) 07/29/2020 MCV 89.6 07/29/2020 PLT 298 07/29/2020 Lab Results Component Value Date GLUCOSE 139 (H) 08/01/2020 CALCIUM 8.7 08/01/2020 NA 138 08/01/2020 K 3.7 08/01/2020 CL 106 08/01/2020 BUN 12 08/01/2020 CREATININE 1.20 08/03/2020 Cultures: Pending Radiology: XR OR Fluoroscopy Time Final Result US Doppler ankle/brachial index Final Result Ultrasound duplex arterial leg left Final Result MR Heel Left Without Contrast Final Result 1. Wdexkwwc-sr-cwlqw dorsal ulcer at the level the left 1st metatarsal base and shaft. Adjacent skin thickening and subcutaneous edema, likely cellulitis. No abscess. Suspected early osteomyelitis ofthe 1st metatarsal base and proximal shaft. 2. Small plantar ulceration at the 2nd MTP joint. No abscess or osteomyelitis. 3. No evidence of osteomyelitis at the heel. [employer] Workstation ID: [id number] MR Foot Left Without Contrast Final Result 1. Hiwvpusu-kq-taiez dorsal ulcer at the level the left 1st metatarsal base and shaft. Adjacent skin thickening and subcutaneous edema, likely cellulitis. No abscess. Suspected early osteomyelitis ofthe 1st metatarsal base and proximal shaft. 2. Small plantar ulceration at the 2nd MTP joint. No abscess or osteomyelitis. 3. No evidence of osteomyelitis at the heel. [employer] Workstation ID: [id number] Rakesh Muñoz MD; pager * Fior Mendoza, MURALI - 08/03/2020 9:47 AM EDT [facility]GR[place] Assessment and Plan Mikayla Pappas is a 59 y.o. male patient of Isis Rincon DO with history of DM type II, HTN,left foot wound presented with worsening left foot wound. Left diabetic foot ulcer w/out sepsis XR L foot (07/26) no acute bony abnormality MRI L foot/heel (07/26) suspected early OM NIVS (07/27) no evidence of significant stenosis, normal perfusion Blood cx (07/26) NGTD; Wound cx (07/26) normal skin mary Consulted Podiatry and ID S/p left foot I&D and bone bx's (07/29) Surgical cx (07/29) pending; no surgical pathology sent Vanco/Zosyn started (07/26) OR return planned for 08/05 Awaiting antibiotic plan and podiatry recs BAILEE Baseline Cr normal; Cr elevated 1.38 (07/31) Had high vanc trough initially Held home losartan Urine studies negative IVF's given with resolution 08/01 with Cr 1.1 Now slight up tick with restart of losartan - Cr 1.2 08/03 Follow closely IDDM2, uncontrolled A1c 13.5%; pt states he has been running low on insulin and rationing due to costs Home regimen: glipizide and Janumet, Lantus 55U QAM and Humalog SSi Hold home orals; started on Lantus 50U QHS and Humalog correctional SSI (normal) Will monitor insulin needs and augment as needed Accuchecks and diabetic diet Consult adult educator Will need Rx for basaglar/pen needles at dc Essential HTN Held home Losartan for BAILEE PO hydralazine prn Restarted home losartan 08/02 - follow creatinine closely LORENA Autopap prn Encourage IS and OOB as tolerated Neuropathy Continue home gabapentin Code Status: Full Code Quality Measures DVT Prophylaxis: Lovenox Todd Catheter: Absent Disposition Discharge Location: Pending Estimated Discharge Date: Pending; awaiting surgical cx's and atb recs Outpatient Testing: Pending Subjective Pt sitting up in bed. Worried about his foot. Tolerating PO intake. + flatus and urinating without issues. No fever or chills. BP climbing off home meds. Review of Systems All systems have been reviewed and are negative except as noted in HPI or below Objective BP (!) 145/78 (BP Location: Right arm, Patient Position: Lying) Pulse 65 Temp 98.2 F (36.8 C) (Oral) Resp 14 Ht 5' 8 Wt 88.9 kg (196 lb) SpO2 95% BMI 29.80 kg/m Physical Examination General Appearance: alert and in no acute distress HEENT: Head- normocephalic; Eyes- PERRLA, EOMI; Ears- external auditory canals clear, hearing intact; Nose- no nasal discharge; Throat- oropharynx normal Cardiovascular: regular rate and rhythm; normal S1, S2; no murmurs, rubs, clicks or gallops; no peripheral edema Respiratory: lungs clear to auscultation; without wheezes, rales or rhonchi. On room air. Abdomen: soft, non-tender, non-distended; positive bowel sounds, overweight Neurological: alert, oriented x 3, normal speech; no focal findings or movement disorder noted Musculoskeletal: no significant deformity or tenderness to palpation. Left foot drsg intact Skin: normal coloration, texture and turgor; no lesions or eruptions Psych: normal mood and affect Results/Medications Reviewed 08/03/20 9:47 AM Laboratory, Microbiology, Cardiology, Medications and Transcriptions * Hoda Nunez RN - 08/03/2020 8:57 AM EDT COMPLEX DISCHARGE Date: 08/03/2020 Time: 8:58 AM Patient Name: Mikayla Pappas Date of : 1960 Sex: Male Discharge Planning Living Arrangements: Alone Support Systems: Family members, Friends/neighbors Assistance Needed: no Type of Residence: Private residence Prior to Admission Home Care Services: No Patient expects to be discharged to:: home Does the patient need discharge transport arranged?: No Current Home Equipment: Cane Anticipated HME: Toilet seat director of guidance, Tub/Shower chair Anticipated Home Care Needs: None Anticipated Discharge Plan Anticipated HME: Toilet seat director of guidance, Tub/Shower chair Anticipated Home Care Needs: None Potential for Readmission Potential for Readmission: No Discharge Readiness Expected Discharge Date: 08/06/20 Barriers to Discharge: Other (Comment)(O.R. planned 08/05) [facility] Disposition D/C Disposition: Home Health Care Services Per [facility] review: [facility] OPTIONS PPO: This patient's plan is a preventative only plan which does not cover home care benefits. Pt will therefore be private pay. Will contact financial for consideration of possible HCAP application. [phone] Call to Caleb @ [facility] for pt interview for possible HCAP qualification. Plan Caleb to revisit pt for the same. [facility] to follow. * Nolan Messina DPM - 08/03/2020 4:35 AM EDT Foot and Ankle Surgery Progress Note ASSESSMENT Mikayla Pappas 59 y.o. male with PMHx DM type II, HTN presents with left foot wounds with concern for deep infection. S/P Left foot I&D, bone biopsies (DOS 07/29/2020) - Afebrile, VSS - Labs reviewed - Imaging reviewed: XR: 07/26 no evidence of acute osteomyelitis. MRI: 07/26 Suspected early osteomyelitis of the 1st metatarsal base and proximal shaft. Small plantar ulceration at the 2nd MTP joint. No abscess or osteomyelitis. No evidence of osteomyelitis at the heel. - NIVS: 07/26 Right: ANUP 1.22, TBI 0.93 no evidence of HDSS, Left: ANUP 1.27, TBI 0.55 no evidence of HDSS - Blood cultures 07/26 NGTD - Swab culture (07/26): GPC, GNB, GND - Intraop swab Cx (07/29) - Normal skin mary - prelim - Intraop path, 1st MT (07/29) - 1st MT - focal minimal osteomyelitis - Intraop path, Medial cuneiform (07/29) - no osteomyelitis - Intraop path, 2nd MT - no osteomyelitis PLAN: - Dressing applied: DSD, Kerlix, Spencer - NWB to LLE and postop shoe with assistive device. - Empiric IV Vanco/Zosyn - Patient has preoperative risk stratification, appreciate [facility]. - Pathology results reviewed. Continue IV Abx with local wound care. Tentative plan for OR Saturday 08/04. - Patient discussed with Dr. Calvillo, further plan per attending physician SUBJECTIVE Pt evaluated at bedside. States doing well postoperatively. Denies nvfc. Denies new pedal complaints, overnight events. Discussed pathology results with patient. Patient expressed understanding. PHYSICAL EXAM Vital Signs BP (!) 145/78 (BP Location: Right arm, Patient Position: Lying) Pulse 65 Temp 98.2 F (36.8 C) (Oral) Resp 14 Ht 5' 8 Wt 88.9 kg (196 lb) SpO2 95% BMI 29.80 kg/m Wt Readings from Last 25 Encounters: 07/29/20 88.9 kg (196 lb) 07/26/20 88.5 kg (195 lb) 07/26/20 90.7 kg (200 lb) 08/02/16 100.2 kg (221 lb) Ins & Outs Intake/Output Summary (Last 24 hours) at 08/03/2020 0435 Last data filed at 08/03/2020 0311 Gross per 24 hour Intake 1017.92 ml Output Net 1017.92 ml General: Patient seen & evaluated at bedside. Patient in no apparent distress, resting comfortably in bed. LE Physical Exam: VASCULAR: DP pulse palpable, bilaterally and PT pulse palpable, bilaterally. CFT < 5 sec to all digits bilateral lower extremities. Severe edema appreciated to the level of the midfoot, left . NEUROLOGICAL: Light touch sensation intact to the level of the ankle, bilaterally. DERMATOLOGICAL: Left foot: Full-thickness wound noted to the dorsal and plantar aspect of left foot. Erythema extending from all digits to mid dorsal foot. No fluctuance or crepitus. Mild periwound erythema. Wound probes to bone and tendon. Granular base. No purulence or crepitus. Plantar 1st met head wound. Granular base. Mild periwound erythema. No purulence or crepitus. MUSCULOSKELETAL: No tenderness palpation to either wound mention above. Muscle strength 5 out of 5 bilateral. Gastric sole soleal equinus appreciated bilateral. LABS Lab Results Component Value Date WBC 6.37 07/29/2020 HGB 10.5 (L) 07/29/2020 HCT 31.8 (L) 07/29/2020 MCV 89.6 07/29/2020 PLT 298 07/29/2020 Lab Results Component Value Date GLUCOSE 139 (H) 08/01/2020 CALCIUM 8.7 08/01/2020 NA 138 08/01/2020 K 3.7 08/01/2020 CL 106 08/01/2020 BUN 12 08/01/2020 CREATININE 1.15 08/02/2020 XR OR Fluoroscopy Time Final Result US Doppler ankle/brachial index Final Result Ultrasound duplex arterial leg left Final Result MR Heel Left Without Contrast Final Result 1. Hvilexoa-fq-qvbxs dorsal ulcer at the level the left 1st metatarsal base and shaft. Adjacent skin thickening and subcutaneous edema, likely cellulitis. No abscess. Suspected early osteomyelitis ofthe 1st metatarsal base and proximal shaft. 2. Small plantar ulceration at the 2nd MTP joint. No abscess or osteomyelitis. 3. No evidence of osteomyelitis at the heel. [employer] Workstation ID: [id number] MR Foot Left Without Contrast Final Result 1. Cmggrchk-vk-aiuax dorsal ulcer at the level the left 1st metatarsal base and shaft. Adjacent skin thickening and subcutaneous edema, likely cellulitis. No abscess. Suspected early osteomyelitis ofthe 1st metatarsal base and proximal shaft. 2. Small plantar ulceration at the 2nd MTP joint. No abscess or osteomyelitis. 3. No evidence of osteomyelitis at the heel. [employer] Workstation ID: [id number] * Lakesha Salcedo OT - 08/02/2020 3:52 PM EDT Occupational Therapy OCCUPATIONAL THERAPY PROGRESS REPORT Skilled Therapy Needs After Discharge Anticipate Resolution of Current Assessment Limitations Including: Pain, Mechanical Barriers, Social Support Are Skilled Therapy Services Needed After Discharge: No DME Recommendation: None Rehab Potential: Good Outcomes Measures Prior Function Daily Activity: Raw Score: 24 Prior Function Daily Activity % Impaired: 0% functionally impaired AM-PAC Daily Activity: Raw Score: 17 AM-PAC Daily Activity % Impaired: 50.11% functionally impaired Activity Tolerance: Pt able to tolerate ~ 20' of dynamic task in seated and standing; limited by volition to adhere to NWB Therapy Precautions Orthotic Devices: No Weight Bearing Status: X LLE: Non Wt bearing General Rehab Precautions: Fall risk Cognition Overall Cognitive Status: Impaired Arousal/Alertness: Appropriate responses to stimuli Orientation Level: Oriented X4 Executive functioning: Min impairment, Insight, Sequencing, Planning / Organizing Safety Judgment: Decreased awareness of need for safety, Decreased awareness of need for assistance Problem Solving: Assistance required to identify errors made, Assistance required to generate solutions, Assistance required to implement solutions Attention: Easily distracted Hearing Status: Hearing loss Social Interaction: Cooperative Comments: Command following limited by volition to attempt. Skilled Intervention: Pt educated re: NWB LLE; pt required max multi modality cues to attempt to adhere to NWB ADL/IADL LE Dressing: Min, Verbal cueing, Increased time to complete Toileting : Min, Verbal cueing, Increased time to complete Skilled Intervention: Pt required max verbal encouragement for attempts at self- performance. Mod cues for techniques to maintain NWB for standing ADL tasks. Bed Mobility Rolling: Modified independence Supine to Sit: Modified independence Sit to Supine: Modified [place]ven Skilled Intervention: HOB elevated. Mod cues for attempting to complete without assist. Functional Transfers Sit to Stand: Mod Toilet Transfers: Mod Skilled Intervention: Mod A and max cues for attempts to maintain NWB during transfers and navigation to commode. Pt instructed in several compensatory strategies to maintain NWB with pt requiring max verbal encouragement to attempt. Unable/unwilling to adhere to restrictions. Home Living Type of Home: House Home Layout: Multi-level, Work area in basement, Bed/bath upstairs(6-8 steps, split level) Bathroom Shower/Tub: Tub/shower unit Bathroom Toilet: Standard Home Equipment: Wheeled Walker, Cane Prior Level of Function Level of Craven: Independent with ADLs and functional transfers, Independent with homemaking with ambulation Lives With: Alone Receives Help From: Friend(s) For complete objective data, detailed plan of care and patient education refer to: OT EVALUATION flow sheet, OT TREATMENT flow sheet, patient Plan of Care, Plan of Care progress note, and Patient Education. This note stands as the current Discharge Summary upon patient discharge from the hospital or completion of Occupational Therapy Plan of Care. * Fior Mendoza, [facility] - 08/02/2020 11:36 AM EDT [facility] [place] Assessment and Plan Mikayla Pappas is a 59 y.o. male patient of Isis Rincon DO with history of DM type II, HTN,left foot wound presented with worsening left foot wound. Left diabetic foot ulcer w/out sepsis XR L foot (07/26) no acute bony abnormality MRI L foot/heel (07/26) suspected early OM NIVS (07/27) no evidence of significant stenosis, normal perfusion Blood cx (07/26) NGTD; Wound cx (07/26) normal skin mary Consulted Podiatry and ID S/p left foot I&D and bone bx's (07/29) Surgical cx (07/29) pending; no surgical pathology sent Vanco/Zosyn started (07/26) Awaiting antibiotic plan and podiatry recs BAILEE Baseline Cr normal; Cr elevated 1.38 (07/31) Discussed with pharmacy - vanco trough to be drawn this evening Holding home losartan Urine studies ordered IVF's ordered Improved to Cr 1.1 (08/01)- resolved IDDM2, uncontrolled A1c 13.5%; pt states he has been running low on insulin and rationing due to costs Home regimen: glipizide and Janumet, Lantus 55U QAM and Humalog SSi Hold home orals; started on Lantus 50U QHS and Humalog correctional SSI (normal) Will monitor insulin needs and augment as needed Accuchecks and diabetic diet Consult adult educator Will need Rx for basaglar/pen needles at dc Essential HTN Held home Losartan for BAILEE PO hydralazine prn Restarted home losartan 08/02 - follow creatinine closely LORENA Autopap prn Encourage IS and OOB as tolerated Neuropathy Continue home gabapentin Code Status: Full Code Quality Measures DVT Prophylaxis: Lovenox Todd Catheter: Absent Disposition Discharge Location: Pending Estimated Discharge Date: Pending; awaiting surgical cx's and atb recs Outpatient Testing: Pending Subjective Pt sitting up in bed. Worried about his foot. Tolerating PO intake. + flatus and urinating without issues. No fever or chills. BP climbing off home meds. Review of Systems All systems have been reviewed and are negative except as noted in HPI or below Objective BP 137/75 (BP Location: Left arm, Patient Position: Lying) Pulse 63 Temp 97.8 F (36.6 C) (Oral) Resp 14 Ht 5' 8 Wt 88.9 kg (196 lb) SpO2 94% BMI 29.80 kg/m Physical Examination General Appearance: alert and in no acute distress HEENT: Head- normocephalic; Eyes- PERRLA, EOMI; Ears- external auditory canals clear, hearing intact; Nose- no nasal discharge; Throat- oropharynx normal Cardiovascular: regular rate and rhythm; normal S1, S2; no murmurs, rubs, clicks or gallops; no peripheral edema Respiratory: lungs clear to auscultation; without wheezes, rales or rhonchi. On room air. Abdomen: soft, non-tender, non-distended; positive bowel sounds, overweight Neurological: alert, oriented x 3, normal speech; no focal findings or movement disorder noted Musculoskeletal: no significant deformity or tenderness to palpation. Left foot drsg intact Skin: normal coloration, texture and turgor; no lesions or eruptions Psych: normal mood and affect Results/Medications Reviewed 08/02/20 11:36 AM Laboratory, Microbiology, Cardiology, Medications and Transcriptions * Rakesh Muñoz MD - 08/02/2020 11:25 AM EDT DAILY PROGRESS NOTE Patient Name: Mikayla Pappas MR #: [id number] Assessment and Plan: 1. Left foot infection post surgery, concern for metatarsal osteomyelitis with path pending currently on vancomycin and Zosyn empirically with no positive cultures 2. Diabetes-monitor glucose, management per hospitalist team 3. Hypertension on treatment, management per hospitalist team Disposition Comments: Will decide discharge antibiotic regimen is final data accumulates Subjective/Objective: Perpetual Assessment: Mikayla Pappas is a 59 y.o. male on hospital day 7 with hyperlipidemia, sleep apnea, hypertension, diabetes, with left foot ulceration cellulitis. Chief Complaint: Left foot infection HPI: Pain controlled tolerating antibiotics Review of Systems: The following system(s) were reviewed: Constitutional, GI,Skin Physical Examination: BP 137/75 (BP Location: Left arm, Patient Position: Lying) Pulse 63 Temp 97.8 F (36.6 C) (Oral) Resp 14 Ht 5' 8 Wt 88.9 kg (196 lb) SpO2 94% BMI 29.80 kg/m General: NAD; Alert and oriented x3 Eyes: Conjunctiva and sclera clear Lungs: Clear without rales, rhonchi or wheezes; no increased respiratory effort Cardiovascular: RRR; no edema Abdomen: soft; non tender Extremities: No cyanosis or clubbing left foot wrapped Skin: No rashes or nodules; normal turgor Neurologic: No focal motor deficits Psych: Mood and affect appropriate Results/Medications Reviewed: Current Facility-Administered Medications Medication Dose Route Frequency Provider Last Rate Last Admin acetaminophen (TYLENOL) tablet 650 mg 650 mg Oral Q4H PRN Patrick Mayo MD aluminum-magnesium hydroxide-simethicone (MAALOX PLUS) 200-200-20 mg/5 mL suspension 30 mL 30 mL Oral 4x Daily PRN Mirta Mills CNP ascorbic acid (vitamin C) (VITAMIN C) tablet 500 mg 500 mg Oral Daily Patrick Mayo MD 500mg at 08/02/20825 bisacodyL (DULCOLAX) suppository 10 mg 10 mg Rectal Daily PRN Mirta Mills CNP cyanocobalamin (B-12) tablet 1,000 mcg 1,000 mcg Oral Daily Patrick Mayo MD 1,000 mcg at 08/02/20825 diphenhydrAMINE (BENADRYL) oral solid 25 mg 25 mg Oral Q6H PRN Mirta Mills CNP enoxaparin (LOVENOX) syringe 40 mg 40 mg Subcutaneous Daily in PM Nate Cazares DPM 40 mg at08/01/202026 gabapentin (NEURONTIN) capsule 300 mg 300 mg Oral Q8H [facility] Mirta Mills CNP 300 mg at 08/02/20 0618 hydrALAZINE (APRESOLINE) tablet 25 mg 25 mg Oral Q6H PRN Mirta Mills CNP HYDROcodone-acetaminophen (NORCO) 5-325 mg per tablet 1 tablet 1 tablet Oral Q6H PRN Patrick Mayo MD 1 tablet at 07/30/202028 insulin glargine (LANTUS) injection 50 Units 50 Units Subcutaneous Nightly Patrick Mayo MD 50 Units at 08/01/20 2043 insulin lispro (HumaLOG) injection 0-15 Units 0-15 Units Subcutaneous at bedtime Patrick Mayo MD insulin lispro (HumaLOG) injection 0-30 Units 0-30 Units Subcutaneous TID AC Patrick Mayo MD 0 Units at 08/02/20 0824 losartan (COZAAR) tablet 25 mg 25 mg Oral Daily with lunch Fior Mendoza CNP magnesium hydroxide (MOM) 400 mg/5 mL suspension 2,400 mg 30 mL Oral Daily PRN Mirta Mills CNP methocarbamoL (ROBAXIN) tablet 500 mg 500 mg Oral TID PRN Mirta Mills CNP naloxone (NARCAN) injection 0.1 mg 0.1 mg Intravenous PRN Patrick Mayo MD And naloxone (NARCAN) injection 0.4 mg 0.4 mg Intravenous PRN Patrick Mayo MD ondansetron (ZOFRAN) injection 4 mg 4 mg Intravenous Q6H PRN Patrick Mayo MD piperacillin-tazobactam (ZOSYN) IVPB 3.375 g (premix) 3.375 g Intravenous Q8H Partick Mayo MD Stopped at 08/02/20 1105 senna-docusate (SENNA-S) 8.6-50 mg per tablet 1 tablet 1 tablet Oral BID Patrick Mayo MD Stopped at 07/29/20 0900 traZODone (DESYREL) tablet 50 mg 50 mg Oral Nightly PRN Patrick Mayo MD vancomycin (VANCOCIN) 1250 mg in sodium chloride 0.9% (NS) 250 mL IVPB 1,250 mg Intravenous Q24H Azul Ortiz [facility],PharmD Stopped at 08/02/20 1105 Lab Results Component Value Date WBC 6.37 07/29/2020 HGB 10.5 (L) 07/29/2020 HCT 31.8 (L) 07/29/2020 MCV 89.6 07/29/2020 PLT 298 07/29/2020 Lab Results Component Value Date GLUCOSE 139 (H) 08/01/2020 CALCIUM 8.7 08/01/2020 NA 138 08/01/2020 K 3.7 08/01/2020 CL 106 08/01/2020 BUN 12 08/01/2020 CREATININE 1.15 08/02/2020 Cultures: Pending Radiology: XR OR Fluoroscopy Time Final Result US Doppler ankle/brachial index Final Result Ultrasound duplex arterial leg left Final Result MR Heel Left Without Contrast Final Result 1. Jyiyidax-ip-gijbv dorsal ulcer at the level the left 1st metatarsal base and shaft. Adjacent skin thickening and subcutaneous edema, likely cellulitis. No abscess. Suspected early osteomyelitis ofthe 1st metatarsal base and proximal shaft. 2. Small plantar ulceration at the 2nd MTP joint. No abscess or osteomyelitis. 3. No evidence of osteomyelitis at the heel. [employer] Workstation ID: [id number] MR Foot Left Without Contrast Final Result 1. Eqlwzcii-jx-pdfkg dorsal ulcer at the level the left 1st metatarsal base and shaft. Adjacent skin thickening and subcutaneous edema, likely cellulitis. No abscess. Suspected early osteomyelitis ofthe 1st metatarsal base and proximal shaft. 2. Small plantar ulceration at the 2nd MTP joint. No abscess or osteomyelitis. 3. No evidence of osteomyelitis at the heel. [employer] Workstation ID: [id number] Rakesh Muñoz MD; pager * Nolan Messina DPM - 08/02/2020 5:03 AM EDT Foot and Ankle Surgery Progress Note ASSESSMENT Mikayla Pappas 59 y.o. male with PMHx DM type II, HTN presents with left foot wounds with concern for deep infection. S/P Left foot I&D, bone biopsies (DOS 07/29/2020) - Afebrile, VSS - Labs reviewed - Imaging reviewed: XR: 07/26 no evidence of acute osteomyelitis. MRI: 07/26 Suspected early osteomyelitis of the 1st metatarsal base and proximal shaft. Small plantar ulceration at the 2nd MTP joint. No abscess or osteomyelitis. No evidence of osteomyelitis at the heel. - NIVS: 07/26 Right: ANUP 1.22, TBI 0.93 no evidence of HDSS, Left: ANUP 1.27, TBI 0.55 no evidence of HDSS - Blood cultures 07/26 NGTD - Swab culture (07/26): GPC, GNB, GND - Intraop swab Cx (07/29) - Normal skin mary - prelim - Intraop path (07/29) - pending PLAN: - Dressing applied: DSD, Kerlix, Spencer - NWB to LLE and postop shoe with assistive device. - Empiric IV Vanco/Zosyn - Patient has preoperative risk stratification, [place] [facility] [place]. - Continue IV Abx. Will continue local wound care. Awaiting path/intraop Cx for further treatment plan. - Patient discussed with Dr. Calvillo, further plan per attending physician SUBJECTIVE Pt evaluated at bedside. States doing well postoperatively. Denies nvfc. Denies new pedal complaints, overnight events. Patient is eager to know his culture and pathology results. Discussed that surgical intervention depends on those results. Patient expressed understanding. PHYSICAL EXAM Vital Signs BP (!) 148/71 (BP Location: Left arm, Patient Position: Lying) Pulse 66 Temp 98.8 F (37.1 C) (Oral) Resp 14 Ht 5' 8 Wt 88.9 kg (196 lb) SpO2 95% BMI 29.80 kg/m Wt Readings from Last 25 Encounters: 07/29/20 88.9 kg (196 lb) 07/26/20 88.5 kg (195 lb) 07/26/20 90.7 kg (200 lb) 08/02/16 100.2 kg (221 lb) Ins & Outs Intake/Output Summary (Last 24 hours) at 08/02/2020 0503 Last data filed at 08/01/2020 1800 Gross per 24 hour Intake 875 ml Output Net 875 ml General: Patient seen & evaluated at bedside. Patient in no apparent distress, resting comfortably in bed. LE Physical Exam: VASCULAR: DP pulse palpable, bilaterally and PT pulse palpable, bilaterally. CFT < 5 sec to all digits bilateral lower extremities. Severe edema appreciated to the level of the midfoot, left . NEUROLOGICAL: Light touch sensation intact to the level of the ankle, bilaterally. DERMATOLOGICAL: Left foot: Full-thickness wound noted to the dorsal and plantar aspect of left foot. Erythema extending from all digits to mid dorsal foot. No fluctuance or crepitus. Mild periwound erythema. Wound probes to bone and tendon. Granular base. No purulence or crepitus. Plantar 1st met head wound. Granular base. Mild periwound erythema. No purulence or crepitus. MUSCULOSKELETAL: No tenderness palpation to either wound mention above. Muscle strength 5 out of 5 bilateral. Gastric sole soleal equinus appreciated bilateral. LABS Lab Results Component Value Date WBC 6.37 07/29/2020 HGB 10.5 (L) 07/29/2020 HCT 31.8 (L) 07/29/2020 MCV 89.6 07/29/2020 PLT 298 07/29/2020 Lab Results Component Value Date GLUCOSE 139 (H) 08/01/2020 CALCIUM 8.7 08/01/2020 NA 138 08/01/2020 K 3.7 08/01/2020 CL 106 08/01/2020 BUN 12 08/01/2020 CREATININE 1.19 08/01/2020 XR OR Fluoroscopy Time Final Result US Doppler ankle/brachial index Final Result Ultrasound duplex arterial leg left Final Result MR Heel Left Without Contrast Final Result 1. Nvtaljgn-zc-jeodf dorsal ulcer at the level the left 1st metatarsal base and shaft. Adjacent skin thickening and subcutaneous edema, likely cellulitis. No abscess. Suspected early osteomyelitis ofthe 1st metatarsal base and proximal shaft. 2. Small plantar ulceration at the 2nd MTP joint. No abscess or osteomyelitis. 3. No evidence of osteomyelitis at the heel. [employer] Workstation ID: [id number] MR Foot Left Without Contrast Final Result 1. Suwiyuvj-aq-vthaa dorsal ulcer at the level the left 1st metatarsal base and shaft. Adjacent skin thickening and subcutaneous edema, likely cellulitis. No abscess. Suspected early osteomyelitis ofthe 1st metatarsal base and proximal shaft. 2. Small plantar ulceration at the 2nd MTP joint. No abscess or osteomyelitis. 3. No evidence of osteomyelitis at the heel. [employer] Workstation ID: [id number] * Monet Schmitz PTA - 08/01/2020 3:13 PM EDT Physical Therapy PHYSICAL THERAPY TREATMENT NOTE Skilled Therapy Needs After Discharge Are Skilled Therapy Services Needed After Discharge: No DME Recommendation: Elevated toilet seat, Tub seat DME Rationale: Patient's condition prevents him/her from accomplishing ADL without recommended equipment, Patient's condition creates an increased risk of safety hazard without recommended equipment,Equipment required to maintain weight bearing status per physician orders Rehab Potential: Good Outcomes Measures Prior Function - Basic Mobility Raw Score: 24 Points Prior Function - Basic Mobility % Impaired: 0% functionally impaired AM-PAC - Basic Mobility Raw Score: 18 Points AM-PAC - Basic Mobility % Impaired: 40.47% functionally impaired Activity Tolerance concerns w/ pt abilities to maintain NWB status. Pt is not at this time and lives in split level home. Discussed w/ podiatry today via secure chat and at this time cont to await cultures before progressing stairs and any change in wbing and/or options of post op shoe or wedge shoe(pt has one at home). Pt if cont to be NWB will not be able to follow w/ stairs at home Therapy Precautions Orthotic Devices: No Weight Bearing Status: X LLE: Non Wt bearing General Rehab Precautions: Fall risk Balance Sitting Balance - Static: Sits without support for more than 30 seconds Sitting Balance - Dynamic: Moves / returns trunkal midpoint more than 2 inches in all planes Standing Balance - Static: Supports self independantly with both upper extremities Standing Balance - Dynamic: Moves / returns trunkal midpoint more than 2 inches in all planes Skilled Intervention: pt ed on improving proper posture, wbing restricitions and improving progression of wing Bed Mobility Rolling: Independent Supine to Sit: Independent Sit to Supine: Independent Skilled Intervention: up at EOB w/ OT at entry, supine at exit. pt w/ no concerns bed mobility Transfers Sit to Stand: Contact guard Stand Pivot Transfers: Contact guard Pinball Machine Repairer: Wheeled walker Skilled Intervention: gait belt. pt required increased cues for wbing, improving body positoning and hand postioning to improve stance and safety w/ techniques. pt cont to put wbing onto L LE Gait/Locomotion Gait Assistance: Contact guard Assistive Device: Wheeled walker Distance: 25 Feet Pattern: Step to(STEPPAGE gait to R LE, poor heel/toe and control at DF) Weight Bearing Status: Unable to maintain Skilled Intervention: reviewed stair negotiation options and discussed w/ podiatry(at this time cont to await cultures before clearance to progress wbing and/or shoe options). pt ed on wbing restictions cont to be NWB yet pt cont to progress more TD/PWB . pt ed on risk/ ordres and working on f/u w/cultures . pt w/ poor R LE gait and notes having deficits prior to d/t neuropathy. pt is able to DF/PF againts resistance/gravity. ed on progressing stair options d/t pt lives in split level home yetd/t awaiting cultures and may be able to change wbing depending on results will f/u w/ for optimal training w/ pt Exercise Skilled Intervention: ed on HEP w/ demonstration of all planes to maintain strength d/t wbing restictions Home Living Type of Home: House Home Layout: Multi-level, Work area in basement, Bed/bath upstairs(6-8 steps, split level) Bathroom Shower/Tub: Tub/shower unit Bathroom Toilet: Standard Home Equipment: Wheeled Walker, Cane Prior Level of Function Level of Craven: Independent with ADLs and functional transfers, Independent with homemaking with ambulation Lives With: Alone Receives Help From: Friend(s) For complete objective data, detailed plan of care and patient education refer to: PT EVALUATION flow sheet, PT TREATMENT flow sheet, patient Plan of Care, Plan of Care progress note, and Patient Education. This note stands as the current Discharge Summary upon patient discharge from the hospital or completion of Physical Therapy Plan of Care. * Howard Yates OTA - 08/01/2020 2:30 PM EDT Occupational Therapy OCCUPATIONAL THERAPY TREATMENT NOTE Skilled Therapy Needs After Discharge Anticipate Resolution of Current Assessment Limitations Including: Pain, Mechanical Barriers, Social Support Are Skilled Therapy Services Needed After Discharge: No DME Recommendation: None Rehab Potential: Good Outcomes Measures Prior Function Daily Activity: Raw Score: 24 Prior Function Daily Activity % Impaired: 0% functionally impaired AM-PAC Daily Activity: Raw Score: 17 AM-PAC Daily Activity % Impaired: 50.11% functionally impaired Therapy Precautions Orthotic Devices: No Weight Bearing Status: X LLE: Non Wt bearing General Rehab Precautions: Fall risk Cognition Overall Cognitive Status: Within Functional Limits Arousal/Alertness: Appropriate responses to stimuli Orientation Level: Oriented X4 Executive functioning: Insight, Min impairment Safety Judgment: Unable to assess Problem Solving: Able to problem solve independently Attention: Attends to quiet environment Hearing Status: Hearing loss Social Interaction: Appropriate, Cooperative Skilled Intervention: 100% multistep command following ADL/IADL LE Dressing: Min, Verbal cueing, Use of adaptive equipment(brim plater & sock aide ) Skilled Intervention: Therapist educated pt on AE with demonstration provided. Min verbal cues for techique to don sock onto sock aide and thread LEs thru leg of pull up while holding open with brim plater. Pt wearing depends upon initiation of session declining need for toileting. Pull ups donned to mind thigh only. Multiple trials completed to ensure understanding. Pt reports having brim plater at homehowever lateral opening with suction cups rather than horizontal opening. Pt verbalizes desire to purchase new brim plater for use with dressing. Bed Mobility Supine to Sit: Supervision(HOB elevated ) Sit to Supine: (Pt left a side of bed with YOUTH LIAISON OFFICER ) Skilled Intervention: Therapist monitors pt for safety and technique with pt completing bed mobility without difficulty. Home Living Type of Home: House Home Layout: Multi-level, Work area in basement, Bed/bath upstairs(6-8 steps, split level) Bathroom Shower/Tub: Tub/shower unit Bathroom Toilet: Standard Home Equipment: Wheeled Walker, Cane Prior Level of Function Level of Craven: Independent with ADLs and functional transfers, Independent with homemaking with ambulation Lives With: Alone Receives Help From: Friend(s) For complete objective data, detailed plan of care and patient education refer to: OT EVALUATION flow sheet, OT TREATMENT flow sheet, patient Plan of Care, Plan of Care progress note, and Patient Education. This note stands as the current Discharge Summary upon patient discharge from the hospital or completion of Occupational Therapy Plan of Care. * Yoselyn Donhaue RD - 08/01/2020 12:57 PM EDT Nutrition Care Initial Assessment Reason for visit: Dietitian Screen Nutrition Diagnosis: Increased nutrient needs related to L DM foot ulcer as evidenced by estimated protein needs. Nutrition Intervention: Continue Meal and Snacks Nutrition Prescription: Diet: DM 60g/meal Oral nutrition supplement: monitor need Nutrition Goals: PO intake > 75% most meals Start Date:08/01/2020 Expected End Date:08/07/2020 Nutrition Education: Reviewed importance of protein. Assessment: Pertinent clinical information: 59 yo male admitted with L DM foot ulcer. S/p L foot I&D and bone biopsies 07/29. Pt with hx of uncontrolled DM2, HgbA1c 13.5. Seen by DM educator, noted some food insecurities and financial barriers affecting ability to afford insulin. 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 Weight hx: Reviewed Wt Readings from Last 5 Encounters: 07/29/20 88.9 kg (196 lb) 07/26/20 88.5 kg (195 lb) 07/26/20 90.7 kg (200 lb) 08/02/16 100.2 kg (221 lb) Current diet order: DM 60g/meal Recent intake: 75-100%. Current intake likely meets estimated needs. Patient/family comments: Pt reports good appetite and eating well. Ate 100% of lunch today. No complaints. Difficulty Chewing/Swallowing: No Skin Integrity: L foot surgical wound noted GI Function: LBM 07/30/20 Physical Appearance: no signs or symptoms of malnutrition Labs: Recent Labs 08/01/20 0407 NA 138 K 3.7 BICARB 24 CL 106 GLUCOSE 139* BUN 12 CREATININE 1.19 Scheduled Meds: ascorbic acid (vitamin C) 500 mg Oral Daily cyanocobalamin 1,000 mcg Oral Daily enoxaparin (LOVENOX) injection 40 mg Subcutaneous Daily in PM gabapentin 300 mg Oral Q8H KAM insulin glargine 50 Units Subcutaneous Nightly lispro insulin 0-15 Units Subcutaneous at bedtime insulin lispro 0-30 Units Subcutaneous TID AC piperacillin-tazobactam (ZOSYN) extended infusion 3.375 g Intravenous Q8H senna-docusate 1 tablet Oral BID vancomycin 1,250 mg Intravenous Q24H Estimated Energy Needs Total Energy Estimated Needs: 6195-8241 kcal Method for Estimating Needs: 25-30 kcl/kg IBW Total Protein Estimated Needs: 70-91g Method for Estimating Needs: 1.0-1.3 g/kg IBW Yoselyn Donahue RD, LD, [facility] * Fior Mendoza, WEB MANAGER - 08/01/2020 10:59 AM EDT [facility] [place] Assessment and Plan Mikayla Pappas is a 59 y.o. male patient of Isis Rincon DO with history of DM type II, HTN,left foot wound presented with worsening left foot wound. Left diabetic foot ulcer w/out sepsis XR L foot (07/26) no acute bony abnormality MRI L foot/heel (07/26) suspected early OM NIVS (07/27) no evidence of significant stenosis, normal perfusion Blood cx (07/26) NGTD; Wound cx (07/26) normal skin mary Consulted Podiatry and ID S/p left foot I&D and bone bx's (07/29) Surgical cx (07/29) pending; no surgical pathology sent Vanco/Zosyn started (07/26) Awaiting antibiotic plan and podiatry recs BAILEE Baseline Cr normal; Cr elevated 1.38 (07/31) Discussed with pharmacy - vanco trough to be drawn this evening Holding home losartan Urine studies ordered IVF's ordered Improved to Cr 1.1 (08/01) IDDM2, uncontrolled A1c 13.5%; pt states he has been running low on insulin and rationing due to costs Home regimen: glipizide and Janumet, Lantus 55U QAM and Humalog SSi Hold home orals; started on Lantus 50U QHS and Humalog correctional SSI (normal) Will monitor insulin needs and augment as needed Accuchecks and diabetic diet Consult adult educator Will need Rx for basaglar/pen needles at dc Essential HTN Hold home Losartan for BAILEE PO hydralazine LORENA Autopap prn Encourage IS and OOB as tolerated Neuropathy Continue home gabapentin Code Status: Full Code Quality Measures DVT Prophylaxis: Lovenox Todd Catheter: Absent Disposition Discharge Location: Pending Estimated Discharge Date: Pending; awaiting surgical cx's and atb recs Outpatient Testing: Pending Subjective Pt sitting up in bed. Denies any chest pain, pressure of discomfort. Denies any SOB, cough, congestion. Denies any abdominal pain, nausea/vomiting. Tolerating PO intake. Denies bowel dysfunction. Having trouble affording his meds. Requesting to speak with financial person. Review of Systems All systems have been reviewed and are negative except as noted in HPI or below Objective BP 130/74 (BP Location: Left arm, Patient Position: Lying) Pulse 63 Temp 98.1 F (36.7 C) (Oral) Resp 12 Ht 5' 8 Wt 88.9 kg (196 lb) SpO2 95% BMI 29.80 kg/m Physical Examination General Appearance: alert and in no acute distress HEENT: Head- normocephalic; Eyes- PERRLA, EOMI; Ears- external auditory canals clear, hearing intact; Nose- no nasal discharge; Throat- oropharynx normal Cardiovascular: regular rate and rhythm; normal S1, S2; no murmurs, rubs, clicks or gallops; no peripheral edema Respiratory: lungs clear to auscultation; without wheezes, rales or rhonchi. On room air. Abdomen: soft, non-tender, non-distended; positive bowel sounds, overweight Neurological: alert, oriented x 3, normal speech; no focal findings or movement disorder noted Musculoskeletal: no significant deformity or tenderness to palpation. Left foot drsg intact Skin: normal coloration, texture and turgor; no lesions or eruptions Psych: normal mood and affect Results/Medications Reviewed 08/01/20 10:59 AM Laboratory, Microbiology, Cardiology, Medications and Transcriptions * Hoda Nunez RN - 08/01/2020 8:22 AM EDT COMPLEX DISCHARGE Date: 08/01/2020 Time: 8:22 AM Patient Name: Mikayla Pappas Date of : 1960 Sex: Male Discharge Planning Living Arrangements: Alone Support Systems: Family members, Friends/neighbors Assistance Needed: no Type of Residence: Private residence Prior to Admission Home Care Services: No Patient expects to be discharged to:: home Does the patient need discharge transport arranged?: No Current Home Equipment: Cane Anticipated HME: Toilet seat director of guidance, Tub/Shower chair Anticipated Home Care Needs: None Anticipated Discharge Plan Anticipated HME: Toilet seat director of guidance, Tub/Shower chair Anticipated Home Care Needs: None Potential for Readmission Potential for Readmission: No Discharge Readiness Expected Discharge Date: 08/03/20 Barriers to Discharge: Other (Comment)(Awaiting C+S/path results) [facility] Disposition D/C Disposition: Home Health Care Services * Rakesh Muñoz MD - 08/01/2020 8:00 AM EDT DAILY PROGRESS NOTE Patient Name: Mikayla Pappas MR #: [id number] Assessment and Plan: 1. Left foot infection post surgery, concern for metatarsal osteomyelitis with path pending currently on vancomycin and Zosyn empirically with no positive cultures 2. Diabetes-monitor glucose, management per hospitalist team 3. Hypertension on treatment, management per hospitalist team Disposition Comments: Will decide discharge antibiotic regimen is final data accumulates Subjective/Objective: Perpetual Assessment: Mikayla Pappas is a 59 y.o. male on hospital day 6 with hyperlipidemia, sleep apnea, hypertension, diabetes, with left foot ulceration cellulitis. Chief Complaint: Left foot infection HPI: Pain controlled tolerating antibiotics Review of Systems: The following system(s) were reviewed: Constitutional, GI,Skin,Respiratory Physical Examination: BP 133/73 (BP Location: Left arm, Patient Position: Lying) Pulse 67 Temp 98.5 F (36.9 C) (Oral) Resp 14 Ht 5' 8 Wt 88.9 kg (196 lb) SpO2 95% BMI 29.80 kg/m General: NAD; Alert and oriented x3 Eyes: Conjunctiva and sclera clear Lungs: Clear without rales, rhonchi or wheezes; no increased respiratory effort Cardiovascular: RRR; no edema Abdomen: Positive bowel sounds; soft; non tender Extremities: No cyanosis or clubbing left foot wrapped Skin: No rashes or nodules; normal turgor Neurologic: No focal motor deficits Psych: Mood and affect appropriate Results/Medications Reviewed: Current Facility-Administered Medications Medication Dose Route Frequency Provider Last Rate Last Admin acetaminophen (TYLENOL) tablet 650 mg 650 mg Oral Q4H PRN Patrick Mayo MD aluminum-magnesium hydroxide-simethicone (MAALOX PLUS) 200-200-20 mg/5 mL suspension 30 mL 30 mL Oral 4x Daily PRN Mirta Mills CNP ascorbic acid (vitamin C) (VITAMIN C) tablet 500 mg 500 mg Oral Daily Patrick Mayo MD 500mg at 07/31/20814 bisacodyL (DULCOLAX) suppository 10 mg 10 mg Rectal Daily PRN Mirta Mills CNP cyanocobalamin (B-12) tablet 1,000 mcg 1,000 mcg Oral Daily Patrick Mayo MD 1,000 mcg at 07/31/20814 diphenhydrAMINE (BENADRYL) oral solid 25 mg 25 mg Oral Q6H PRN Mirta Mills CNP enoxaparin (LOVENOX) syringe 40 mg 40 mg Subcutaneous Daily in PM Nate Cazares, DPM 40 mg at07/31/202037 gabapentin (NEURONTIN) capsule 300 mg 300 mg Oral Q8H [facility] Mirta Mills CNP 300 mg at 08/01/20 0616 hydrALAZINE (APRESOLINE) tablet 25 mg 25 mg Oral Q6H PRN Mirat Mills CNP HYDROcodone-acetaminophen (NORCO) 5-325 mg per tablet 1 tablet 1 tablet Oral Q6H PRN Patrick Mayo MD 1 tablet at 07/30/202028 insulin glargine (LANTUS) injection 50 Units 50 Units Subcutaneous Nightly Patrick Mayo MD 50 Units at 07/31/202037 insulin lispro (HumaLOG) injection 0-15 Units 0-15 Units Subcutaneous at bedtime Patrick Mayo MD insulin lispro (HumaLOG) injection 0-30 Units 0-30 Units Subcutaneous TID AC Patrick Mayo MD 4 Units at 07/31/20 1821 magnesium hydroxide (MOM) 400 mg/5 mL suspension 2,400 mg 30 mL Oral Daily PRN Mirta Mills CNP methocarbamoL (ROBAXIN) tablet 500 mg 500 mg Oral TID PRN Mirta Mills CNP naloxone (NARCAN) injection 0.1 mg 0.1 mg Intravenous PRN Patrick Mayo MD And naloxone (NARCAN) injection 0.4 mg 0.4 mg Intravenous PRN Patrick Mayo MD ondansetron (ZOFRAN) injection 4 mg 4 mg Intravenous Q6H PRN Patrick Mayo MD piperacillin-tazobactam (ZOSYN) IVPB 3.375 g (premix) 3.375 g Intravenous Q8H Patrick Mayo MD 12.5 mL/hr at 08/01/20 0616 3.375 g at 08/01/20 0616 senna-docusate (SENNA-S) 8.6-50 mg per tablet 1 tablet 1 tablet Oral BID Patrick Mayo MD Stopped at 07/29/20 0900 traZODone (DESYREL) tablet 50 mg 50 mg Oral Nightly PRN Patrick Mayo MD vancomycin (VANCOCIN) 1250 mg in sodium chloride 0.9% (NS) 250 mL IVPB 1,250 mg Intravenous Q24H Azul Ortiz, [facility],PharmD Lab Results Component Value Date WBC 6.37 07/29/2020 HGB 10.5 (L) 07/29/2020 HCT 31.8 (L) 07/29/2020 MCV 89.6 07/29/2020 PLT 298 07/29/2020 Lab Results Component Value Date GLUCOSE 139 (H) 08/01/2020 CALCIUM 8.7 08/01/2020 NA 138 08/01/2020 K 3.7 08/01/2020 CL 106 08/01/2020 BUN 12 08/01/2020 CREATININE 1.19 08/01/2020 Cultures: Pending Radiology: XR OR Fluoroscopy Time Final Result US Doppler ankle/brachial index Final Result Ultrasound duplex arterial leg left Final Result MR Heel Left Without Contrast Final Result 1. Gepiwdcg-wi-vesxz dorsal ulcer at the level the left 1st metatarsal base and shaft. Adjacent skin thickening and subcutaneous edema, likely cellulitis. No abscess. Suspected early osteomyelitis ofthe 1st metatarsal base and proximal shaft. 2. Small plantar ulceration at the 2nd MTP joint. No abscess or osteomyelitis. 3. No evidence of osteomyelitis at the heel. [employer] Workstation ID: [id number] MR Foot Left Without Contrast Final Result 1. Xukuvovg-sy-evnmc dorsal ulcer at the level the left 1st metatarsal base and shaft. Adjacent skin thickening and subcutaneous edema, likely cellulitis. No abscess. Suspected early osteomyelitis ofthe 1st metatarsal base and proximal shaft. 2. Small plantar ulceration at the 2nd MTP joint. No abscess or osteomyelitis. 3. No evidence of osteomyelitis at the heel. [employer] Workstation ID: [id number] Rakesh Muñoz MD; pager * Azul Ortiz, [facility],PharmD - 08/01/2020 7:53 AM EDT Pharmacokinetic Consult Vancomycin Dosing Mikayla Pappas is a 59 y.o. male who has been consulted for vancomycin dosing for L foot infection Relevant clinical data and objective history reviewed: Creatinine Date Value Ref Range Status 08/01/2020 1.19 0.50 - 1.30 mg/dL Final 07/31/2020 1.29 0.50 - 1.30 mg/dL Final 07/31/2020 1.38 (H) 0.50 - 1.30 mg/dL Final BUN Date Value Ref Range Status 08/01/2020 12 8 - 25 mg/dL Final 07/31/2020 13 8 - 25 mg/dL Final 07/29/2020 15 8 - 25 mg/dL Final Estimated Creatinine Clearance: 65.5 mL/min (by C-G formula based on SCr of 1.19 mg/dL). I/O last 3 completed shifts: In: 1753 [P.O.:200; I.V.:235; IV Piggyback:1318] Out: - Lab Results Component Value Date/Time WBC 6.37 07/29/2020 05:28 AM HGB 10.5 (L) 07/29/2020 05:28 AM HCT 31.8 (L) 07/29/2020 05:28 AM MCV 89.6 07/29/2020 05:28 AM PLT 298 07/29/2020 05:28 AM Temp Readings from Last 3 Encounters: 08/01/20 98.5 F (36.9 C) (Oral) 07/26/20 99.1 F (37.3 C) (Oral) 08/03/16 97.5 F (36.4 C) Assessment/Plan -Goal vancomycin trough 15-20 mcg/ml -Current vancomycin level 24 hours post dose 15.5 mcg/ml. Patient was previously stable on q12h dosing, but repeat level was 27.3 mcg/ml and random level was drawn this am and at goal -Will schedule vancomycin 1250 mg iv q24h -Pharmacy will continue to monitor and adjust as appropriate * Nolan Messina V, DPM - 08/01/2020 4:50 AM EDT Foot and Ankle Surgery Progress Note ASSESSMENT Mikayla Pappas 59 y.o. male with PMHx DM type II, HTN presents with left foot wounds with concern for deep infection. S/P Left foot I&D, bone biopsies (DOS 07/29/2020) - Afebrile, VSS - Labs reviewed: A1c 13.5 - Imaging reviewed: XR: 07/26 no evidence of acute osteomyelitis. MRI: 07/26 Suspected early osteomyelitis of the 1st metatarsal base and proximal shaft. Small plantar ulceration at the 2nd MTP joint. No abscess or osteomyelitis. No evidence of osteomyelitis at the heel. - NIVS: 07/26 Right: ANUP 1.22, TBI 0.93 no evidence of HDSS, Left: ANUP 1.27, TBI 0.55 no evidence of HDSS - Blood cultures 07/26 NGTD - Swab culture (07/26): GPC, GNB, GND - Intraop swab Cx (07/29) - Normal skin mary - prelim - Intraop path (07/29) - pending PLAN: - Dressing applied: DSD, Kerlix, Spencer - NWB to LLE and postop shoe with assistive device. - Empiric IV Vanco/Zosyn - Patient has preoperative risk stratification, [place] [facility] [place] - Continue IV Abx. Will continue local wound care. Awaiting path/intraop Cx for further treatment plan. - Patient discussed with Dr. Calvillo, further plan per attending physician SUBJECTIVE Pt evaluated at bedside. States doing well postoperatively. Denies nvfc. Denies new pedal complaints, overnight events. PHYSICAL EXAM Vital Signs BP 133/73 (BP Location: Left arm, Patient Position: Lying) Pulse 67 Temp 98.5 F (36.9 C) (Oral) Resp 14 Ht 5' 8 Wt 88.9 kg (196 lb) SpO2 95% BMI 29.80 kg/m Wt Readings from Last 25 Encounters: 07/29/20 88.9 kg (196 lb) 07/26/20 88.5 kg (195 lb) 07/26/20 90.7 kg (200 lb) 08/02/16 100.2 kg (221 lb) Ins & Outs Intake/Output Summary (Last 24 hours) at 08/01/2020 0451 Last data filed at 07/31/2020 2227 Gross per 24 hour Intake 1753.02 ml Output Net 1753.02 ml General: Patient seen & evaluated at bedside. Patient in no apparent distress, resting comfortably in bed. LE Physical Exam: VASCULAR: DP pulse palpable, bilaterally and PT pulse palpable, bilaterally. CFT < 5 sec to all digits bilateral lower extremities. Severe edema appreciated to the level of the midfoot, left . NEUROLOGICAL: Light touch sensation intact to the level of the ankle, bilaterally. DERMATOLOGICAL: Left foot: Full-thickness wound noted to the dorsal and plantar aspect of left foot. Erythema extending from all digits to mid dorsal foot. No fluctuance or crepitus. Mild periwound erythema. Wound probes to bone and tendon. Granular base. No purulence or crepitus. Plantar 1st met head wound. Granular base. Mild periwound erythema. No purulence or crepitus. MUSCULOSKELETAL: No tenderness palpation to either wound mention above. Muscle strength 5 out of 5 bilateral. Gastric sole soleal equinus appreciated bilateral. LABS Lab Results Component Value Date WBC 6.37 07/29/2020 HGB 10.5 (L) 07/29/2020 HCT 31.8 (L) 07/29/2020 MCV 89.6 07/29/2020 PLT 298 07/29/2020 Lab Results Component Value Date GLUCOSE 158 (H) 07/31/2020 CALCIUM 8.7 07/31/2020 NA 137 07/31/2020 K 3.8 07/31/2020 CL 105 07/31/2020 BUN 13 07/31/2020 CREATININE 1.29 07/31/2020 CREATININE 1.38 (H) 07/31/2020 XR OR Fluoroscopy Time Final Result US Doppler ankle/brachial index Final Result Ultrasound duplex arterial leg left Final Result MR Heel Left Without Contrast Final Result 1. Vaagognq-yu-huxsz dorsal ulcer at the level the left 1st metatarsal base and shaft. Adjacent skin thickening and subcutaneous edema, likely cellulitis. No abscess. Suspected early osteomyelitis ofthe 1st metatarsal base and proximal shaft. 2. Small plantar ulceration at the 2nd MTP joint. No abscess or osteomyelitis. 3. No evidence of osteomyelitis at the heel. [employer] Workstation ID: [id number] MR Foot Left Without Contrast Final Result 1. Ulyjqbpz-mt-jqgzd dorsal ulcer at the level the left 1st metatarsal base and shaft. Adjacent skin thickening and subcutaneous edema, likely cellulitis. No abscess. Suspected early osteomyelitis ofthe 1st metatarsal base and proximal shaft. 2. Small plantar ulceration at the 2nd MTP joint. No abscess or osteomyelitis. 3. No evidence of osteomyelitis at the heel. [employer] Workstation ID: [id number] * Sophia Alfred RN - 07/31/2020 5:08 PM EDT COMPLEX DISCHARGE Date: 07/31/2020 Time: 5:08 PM Patient Name: Mikayla Pappas Date of : 1960 Sex: Male POD#2 I&D left foot w/bone bx Pending cxs/path Per ID pt will likely need IVATB at id Spk/pt to discuss need for HH for IVATB. Pt selected [facility]. Placed notify order to check benefits. RNCM will f/u with [facility] tomorrow. Sophia RAMIREZ RN Available on [employer] Discharge Planning Living Arrangements: Alone Support Systems: Family members, Friends/neighbors Assistance Needed: no Type of Residence: Private residence Prior to Admission Home Care Services: No Patient expects to be discharged to:: home Does the patient need discharge transport arranged?: No Current Home Equipment: Cane Anticipated HME: Toilet seat director of guidance, Tub/Shower chair Anticipated Home Care Needs: None Anticipated Discharge Plan Anticipated HME: Toilet seat director of guidance, Tub/Shower chair Anticipated Home Care Needs: None Potential for Readmission Potential for Readmission: No Discharge Readiness Expected Discharge Date: 08/03/20 Barriers to Discharge: Other (Comment)(awaiting path/cultures-may need to return OR) [facility] Disposition D/C Disposition: Home * John Tracy DPM - 07/31/2020 7:50 AM EDT Foot and Ankle Surgery Progress Note ASSESSMENT Mikayla Pappas 59 y.o. male with PMHx DM type II, HTN presents with left foot wounds with concern for deep infection. S/P Left foot I&D, bone biopsies (DOS 07/29/2020) - Afebrile, slightly hypotensive, otherwise VSS - Labs reviewed: A1c 13.5 - Imaging reviewed: XR: 07/26 no evidence of acute osteomyelitis. MRI: 07/26 Suspected early osteomyelitis of the 1st metatarsal base and proximal shaft. Small plantar ulceration at the 2nd MTP joint. No abscess or osteomyelitis. No evidence of osteomyelitis at the heel. - NIVS: 07/26 Right: ANUP 1.22, TBI 0.93 no evidence of HDSS, Left: ANUP 1.27, TBI 0.55 no evidence of HDSS - Blood cultures 07/26 NGTD - Swab culture (07/26): GPC, GNB, GND - Intraop swab Cx (07/29) - NGTD - Intraop path (07/29) - pending PLAN: - Dressing applied: DSD, Kerlix, Spencer - NWB to LLE and postop shoe with assistive device. - Empiric IV Vanco/Zosyn - Patient has preoperative risk stratification, [place] [facility] [place]. - Continue IV Abx. Will continue local wound care. Awaiting path/intraop Cx for further treatment plan. - Patient to be discussed with Dr. Calvillo, further plan per attending physician SUBJECTIVE Pt evaluated at bedside. States doing well postoperatively. Passing gas, urinating. Denies nvfc. Denies new pedal complaints, overnight events. PHYSICAL EXAM Vital Signs BP (!) 102/51 (BP Location: Left arm, Patient Position: Lying) Pulse (!) 52 Temp 97.7 F (36.5 C) (Oral) Resp 14 Ht 5' 8 Wt 88.9 kg (196 lb) SpO2 99% BMI 29.80 kg/m Wt Readings from Last 25 Encounters: 07/29/20 88.9 kg (196 lb) 07/26/20 88.5 kg (195 lb) 07/26/20 90.7 kg (200 lb) 08/02/16 100.2 kg (221 lb) Ins & Outs Intake/Output Summary (Last 24 hours) at 07/31/2020 0750 Last data filed at 07/31/2020 0535 Gross per 24 hour Intake 967.95 ml Output Net 967.95 ml General: Patient seen & evaluated at bedside. Patient in no apparent distress, resting comfortably in bed. LE Physical Exam: VASCULAR: DP pulse palpable, bilaterally and PT pulse palpable, bilaterally. CFT < 5 sec to all digits bilateral lower extremities. Severe edema appreciated to the level of the midfoot, left . NEUROLOGICAL: Light touch sensation intact to the level of the ankle, bilaterally. DERMATOLOGICAL: Left foot: Full-thickness wound noted to the dorsal and plantar aspect of left foot. Erythema extending from all digits to mid dorsal foot. No fluctuance or crepitus. Mild periwound erythema. Wound probes to bone and tendon. Granular base. No purulence or crepitus. Plantar 1st met head wound. Granular base. Mild periwound erythema. No purulence or crepitus. MUSCULOSKELETAL: No tenderness palpation to either wound mention above. Muscle strength 5 out of 5 bilateral. Gastric sole soleal equinus appreciated bilateral. LABS Lab Results Component Value Date WBC 6.37 07/29/2020 HGB 10.5 (L) 07/29/2020 HCT 31.8 (L) 07/29/2020 MCV 89.6 07/29/2020 PLT 298 07/29/2020 Lab Results Component Value Date GLUCOSE 158 (H) 07/31/2020 CALCIUM 8.7 07/31/2020 NA 137 07/31/2020 K 3.8 07/31/2020 CL 105 07/31/2020 BUN 13 07/31/2020 CREATININE 1.29 07/31/2020 CREATININE 1.38 (H) 07/31/2020 XR OR Fluoroscopy Time Final Result US Doppler ankle/brachial index Final Result Ultrasound duplex arterial leg left Final Result MR Heel Left Without Contrast Final Result 1. Mvwtnzgm-be-shfqh dorsal ulcer at the level the left 1st metatarsal base and shaft. Adjacent skin thickening and subcutaneous edema, likely cellulitis. No abscess. Suspected early osteomyelitis ofthe 1st metatarsal base and proximal shaft. 2. Small plantar ulceration at the 2nd MTP joint. No abscess or osteomyelitis. 3. No evidence of osteomyelitis at the heel. [employer] Workstation ID: [id number] MR Foot Left Without Contrast Final Result 1. Ncmmdtvt-gc-fheti dorsal ulcer at the level the left 1st metatarsal base and shaft. Adjacent skin thickening and subcutaneous edema, likely cellulitis. No abscess. Suspected early osteomyelitis ofthe 1st metatarsal base and proximal shaft. 2. Small plantar ulceration at the 2nd MTP joint. No abscess or osteomyelitis. 3. No evidence of osteomyelitis at the heel. [employer] Workstation ID: [id number] * Mirta Mills CNP - 07/31/2020 6:28 AM EDT [facility] [place] PROGRESS NOTE Assessment and Plan Mikayla Pappas is a 59 y.o. male patient of [facility] with history of DM type II, HTN,left foot wound presented with worsening left foot wound. Left diabetic foot ulcer w/out sepsis XR L foot (07/26) no acute bony abnormality MRI L foot/heel (07/26) suspected early OM NIVS (07/27) no evidence of significant stenosis, normal perfusion Blood cx (07/26) NGTD; Wound cx (07/26) normal skin mary Consulted Podiatry and ID S/p left foot I&D and bone bx's (07/29) Surgical cx (07/29) pending; no surgical pathology sent Vanco/Zosyn started (07/26) Awaiting antibiotic plan and podiatry recs BAILEE Baseline Cr normal; Cr elevated 1.38 (07/31) Discussed with pharmacy - vanco trough to be drawn this evening Holding home losartan Urine studies ordered IVF's ordered IDDM2, uncontrolled A1c 13.5%; pt states he has been running low on insulin and rationing due to costs Home regimen: glipizide and Janumet, Lantus 55U QAM and Humalog SSi Hold home orals; started on Lantus 50U QHS and Humalog correctional SSI (normal) Will monitor insulin needs and augment as needed Accuchecks and diabetic diet Consult adult educator Will need Rx for basaglar/pen needles at dc Essential HTN Hold home Losartan for BAILEE PO hydralazine LORENA Autopap prn Encourage IS and OOB as tolerated Neuropathy Continue home gabapentin Code Status: Full Code Quality Measures DVT Prophylaxis: Lovenox Todd Catheter: Absent Disposition Discharge Location: Pending Estimated Discharge Date: Pending; awaiting surgical cx's and atb recs Outpatient Testing: Pending Subjective Pt sitting up in bed. Denies any chest pain, pressure of discomfort. Denies any SOB, cough, congestion. Denies any abdominal pain, nausea/vomiting. Tolerating PO intake. Denies bowel dysfunction. Review of Systems All systems have been reviewed and are negative except as noted in HPI or below Objective BP (!) 102/51 (BP Location: Left arm, Patient Position: Lying) Pulse (!) 52 Temp 97.7 F (36.5 C) (Oral) Resp 14 Ht 5' 8 Wt 88.9 kg (196 lb) SpO2 99% BMI 29.80 kg/m Physical Examination General Appearance: alert and in no acute distress HEENT: Head- normocephalic; Eyes- PERRLA, EOMI; Ears- external auditory canals clear, hearing intact; Nose- no nasal discharge; Throat- oropharynx normal Cardiovascular: regular rate and rhythm; normal S1, S2; no murmurs, rubs, clicks or gallops; no peripheral edema Respiratory: lungs clear to auscultation; without wheezes, rales or rhonchi. On room air. Abdomen: soft, non-tender, non-distended; positive bowel sounds, overweight Neurological: alert, oriented x 3, normal speech; no focal findings or movement disorder noted Musculoskeletal: no significant deformity or tenderness to palpation. Left foot drsg intact Skin: normal coloration, texture and turgor; no lesions or eruptions Psych: normal mood and affect Results/Medications Reviewed 07/31/20 6:28 AM Laboratory, Microbiology, Cardiology, Medications and Transcriptions * Sophia Alfred RN - 07/30/2020 10:53 AM EDT COMPLEX DISCHARGE Date: 07/30/2020 Time: 10:53 AM Patient Name: Mikayla Pappas Date of : 1960 Sex: Male POD#1 left foot I&D w/bone biopsies Awaiting path/cultures- may need to return to OR Placed order for ETS/IOP-notified [facility] RNCM following for dc needs Sophia Alfred BSLynn RN Available on [employer] Discharge Planning Living Arrangements: Alone Support Systems: Family members, Friends/neighbors Assistance Needed: no Type of Residence: Private residence Prior to Admission Home Care Services: No Patient expects to be discharged to:: home Does the patient need discharge transport arranged?: No Current Home Equipment: Cane Anticipated HME: Toilet seat director of guidance, Tub/Shower chair Anticipated Home Care Needs: None Anticipated Discharge Plan Anticipated HME: Toilet seat director of guidance, Tub/Shower chair Anticipated Home Care Needs: None Potential for Readmission Potential for Readmission: No Discharge Readiness Expected Discharge Date: 08/03/20 Barriers to Discharge: Other (Comment)(awaiting path/cultures-may need to return OR) [facility] Disposition D/C Disposition: Home * Mirta Mills CNP - 07/30/2020 6:19 AM EDT [facility] [place] Assessment and Plan Mikayla Pappas is a 59 y.o. male patient of Isis Rincon DO with history of DM type II, HTN,left foot wound presented with worsening left foot wound. Left diabetic foot ulcer w/out sepsis Inflammatory markers elevated XR L foot (07/26) no acute bony abnormality MRI L foot/heel (07/26) suspected early OM NIVS (07/27) no evidence of significant stenosis, normal perfusion Inflammatory markers elevated Blood cx (07/26) NGTD; Wound cx (07/26) GPC, GNB, gram neg diplococci Surgical cx (07/29) pending Consulted Podiatry and ID S/p left foot I&D and bone bx's (07/29) Vanco/Zosyn started (07/26) Pre-op evaluation Patient denies acute chest pain or dyspnea Patient without history of CAD, CHF, CKD or Cerebrovascular Disease EKG with bifascicular block that is present dating back to 2015 No other cardiac testing in computer system Patient functional capacity at 4 METS RCRI score of 1 (IDDM2) Per ACC/AHA guidelines, patient may proceed with surgery without any further testing with acceptable risk. IDDM2, uncontrolled A1c 13.5%; pt states he has been running low on insulin and rationing due to costs Home regimen: glipizide and Janumet, Lantus 55U QAM and Humalog SSi Hold home orals; started on Lantus 50U QHS and Humalog correctional SSI (normal) Will monitor insulin needs and augment as needed Accuchecks and diabetic diet Consult adult educator Will need Rx for basaglar at dc Essential HTN Continue home Losartan LORENA Autopap prn Encourage IS and OOB as tolerated Neuropathy Continue home gabapentin Code Status: Full Code Quality Measures DVT Prophylaxis: Lovenox Todd Catheter: Absent Disposition Discharge Location: Pending Estimated Discharge Date: Pending; awaiting pathology/surgical cx's Outpatient Testing: Pending Subjective Pt lying in bed. Denies any chest pain, pressure of discomfort. Denies any SOB, cough, congestion. Denies any abdominal pain, nausea/vomiting. Tolerating PO intake. States he has polyuria but no dysuria. Denies bowel dysfunction. States he moved his bowels yesterday. Review of Systems All systems have been reviewed and are negative except as noted in HPI or below Objective BP 129/67 (BP Location: Left arm, Patient Position: Lying) Pulse 67 Temp 98.6 F (37 C) (Oral) Resp 16 Ht 5' 8 Wt 88.9 kg (196 lb) SpO2 94% BMI 29.80 kg/m Physical Examination General Appearance: alert, disheveled, and in no acute distress HEENT: Head- normocephalic; Eyes- PERRLA, EOMI; Ears- external auditory canals clear, hearing intact; Nose- no nasal discharge; Throat- oropharynx normal Cardiovascular: regular rate and rhythm; normal S1, S2; no murmurs, rubs, clicks or gallops; no peripheral edema Respiratory: lungs clear to auscultation; without wheezes, rales or rhonchi. On room air. Abdomen: soft, non-tender, non-distended; positive bowel sounds, overweight Neurological: alert, oriented x 3, normal speech; no focal findings or movement disorder noted Musculoskeletal: no significant deformity or tenderness to palpation. Left foot drsg intact, malodorous Skin: normal coloration, texture and turgor; no lesions or eruptions Psych: normal mood and affect Results/Medications Reviewed 07/30/20 6:19 AM Laboratory, Microbiology, Cardiology, Medications and Transcriptions * John Tracy DPM - 07/30/2020 5:04 AM EDT Foot and Ankle Surgery Progress Note ASSESSMENT Mikayla Pappas 59 y.o. male with PMHx DM type II, HTN presents with left foot wounds with concern for deep infection. S/P Left foot I&D, bone biopsies (DOS 07/29/2020) - Afebrile, VSS - Labs reviewed: A1c 13.5 - Imaging reviewed: XR: 07/26 no evidence of acute osteomyelitis. MRI: 07/26 Suspected early osteomyelitis of the 1st metatarsal base and proximal shaft. Small plantar ulceration at the 2nd MTP joint. No abscess or osteomyelitis. No evidence of osteomyelitis at the heel. - NIVS: 07/26 Right: ANUP 1.22, TBI 0.93 no evidence of HDSS, Left: ANUP 1.27, TBI 0.55 no evidence of HDSS - Blood cultures 07/26 NGTD - Swab culture (07/26): GPC, GNB, GND preliminary - Intraop swab Cx (07/29) - NGTD - Intraop path (07/29) - pending PLAN: - Dressing applied: DSD, Kerlix, Spencer - NWB to LLE and postop shoe with assistive device. - Empiric IV Vanco/Zosyn - Patient has preoperative risk stratification, appreciate [facility] [place] - Continue IV Abx. Will continue local wound care. Awaiting path/intraop Cx for further treatment plan. - Patient to be discussed with Dr. Calvillo, further plan per attending physician SUBJECTIVE Patient seen and evaluated at bedside. Denies nausea vomiting fever chills. States he is pain and is passing gas. He is understanding of the operation that he had. Understands that we are awaiting intraoperative pathology results for further treatment plan. PHYSICAL EXAM Vital Signs BP 129/67 (BP Location: Left arm, Patient Position: Lying) Pulse 67 Temp 98.6 F (37 C) (Oral) Resp 16 Ht 5' 8 Wt 88.9 kg (196 lb) SpO2 94% BMI 29.80 kg/m Wt Readings from Last 25 Encounters: 07/29/20 88.9 kg (196 lb) 07/26/20 88.5 kg (195 lb) 07/26/20 90.7 kg (200 lb) 08/02/16 100.2 kg (221 lb) Ins & Outs Intake/Output Summary (Last 24 hours) at 07/30/2020 0505 Last data filed at 07/29/2020 1800 Gross per 24 hour Intake 979.17 ml Output 10 ml Net 969.17 ml General: Patient seen & evaluated at bedside. Patient in no apparent distress, resting comfortably in bed. LE Physical Exam: VASCULAR: DP pulse palpable, bilaterally and PT pulse palpable, bilaterally. CFT < 5 sec to all digits bilateral lower extremities. Severe edema appreciated to the level of the midfoot, left . NEUROLOGICAL: Light touch sensation intact to the level of the ankle, bilaterally. DERMATOLOGICAL: Left foot: Full-thickness wound noted to the dorsal and plantar aspect of left foot. Erythema extending from all digits to mid dorsal foot. No fluctuance or crepitus. Mild periwound erythema. Wound probes to bone and tendon. Granular base. No purulence or crepitus. Plantar 1st met head wound. Granular base. Mild periwound erythema. No purulence or crepitus. MUSCULOSKELETAL: No tenderness palpation to either wound mention above. Muscle strength 5 out of 5 bilateral. Gastric sole soleal equinus appreciated bilateral. LABS Lab Results Component Value Date WBC 6.37 07/29/2020 HGB 10.5 (L) 07/29/2020 HCT 31.8 (L) 07/29/2020 MCV 89.6 07/29/2020 PLT 298 07/29/2020 Lab Results Component Value Date GLUCOSE 209 (H) 07/29/2020 CALCIUM 9.2 07/29/2020 NA 138 07/29/2020 K 3.8 07/29/2020 CL 105 07/29/2020 BUN 15 07/29/2020 CREATININE 0.94 07/29/2020 XR OR Fluoroscopy Time Final Result US Doppler ankle/brachial index Final Result Ultrasound duplex arterial leg left Final Result MR Heel Left Without Contrast Final Result 1. Tunvrldv-kf-vxevh dorsal ulcer at the level the left 1st metatarsal base and shaft. Adjacent skin thickening and subcutaneous edema, likely cellulitis. No abscess. Suspected early osteomyelitis ofthe 1st metatarsal base and proximal shaft. 2. Small plantar ulceration at the 2nd MTP joint. No abscess or osteomyelitis. 3. No evidence of osteomyelitis at the heel. [employer] Workstation ID: [id number] MR Foot Left Without Contrast Final Result 1. Shgvsxto-rv-sbmwr dorsal ulcer at the level the left 1st metatarsal base and shaft. Adjacent skin thickening and subcutaneous edema, likely cellulitis. No abscess. Suspected early osteomyelitis ofthe 1st metatarsal base and proximal shaft. 2. Small plantar ulceration at the 2nd MTP joint. No abscess or osteomyelitis. 3. No evidence of osteomyelitis at the heel. [employer] Workstation ID: [id number] * Mirta Mills CNP - 07/29/2020 6:25 AM EDT [facility] [place] Assessment and Plan Mikayla Pappas is a 59 y.o. male [facility] with history of DM type II, HTN,left foot wound presented with worsening left foot wound. Left diabetic foot ulcer w/out sepsis Inflammatory markers elevated XR L foot (07/26) no acute bony abnormality MRI L foot/heel (07/26) suspected early OM NIVS (07/27) no evidence of significant stenosis, normal perfusion Inflammatory markers elevated Blood cx (07/26) NGTD; Wound cx (07/26) GPC, GNB, gram neg diplococci Consulted Podiatry and ID Vanco/Zosyn started (07/26) Plan for I&D and bone bx's (07/29) Pre-op evaluation Patient denies acute chest pain or dyspnea Patient without history of CAD, CHF, CKD or Cerebrovascular Disease EKG with bifascicular block that is present dating back to 2016 No other cardiac testing in computer system Patient functional capacity at 4 METS RCRI score of 1 (IDDM2) Per ACC/AHA guidelines, patient may proceed with surgery without any further testing with acceptable risk. IDDM2, uncontrolled A1c 13.5%; pt states he has been running low on insulin and rationing due to costs Home regimen: glipizide and Janumet, Lantus 55U QAM and Humalog SSi Hold home orals; started on Lantus 50U QHS and Humalog correctional SSI (normal) Will monitor insulin needs and augment as needed Accuchecks and diabetic diet Consult adult educator Will need Rx for basaglar at dc Essential HTN Continue home Losartan LORENA Autopap prn Encourage IS and OOB as tolerated Neuropathy Continue home gabapentin Code Status: Full Code Quality Measures DVT Prophylaxis: Lovenox Todd Catheter: Absent Disposition Discharge Location: Pending Estimated Discharge Date: Pending; plan for OR today Outpatient Testing: Pending Subjective Pt lying in bed. Denies any chest pain, pressure of discomfort. Denies any SOB, cough, congestion. Denies any abdominal pain, nausea/vomiting. Tolerating PO intake. States he has polyuria but no dysuria. Denies bowel dysfunction. Review of Systems All systems have been reviewed and are negative except as noted in HPI or below Objective BP 131/70 Pulse 65 Temp 98.7 F (37.1 C) (Oral) Resp 14 Ht 5' 8 Wt 88.5 kg (195 lb) SpO2 96% BMI 29.65 kg/m Physical Examination General Appearance: alert, disheveled, and in no acute distress HEENT: Head- normocephalic; Eyes- PERRLA, EOMI; Ears- external auditory canals clear, hearing intact; Nose- no nasal discharge; Throat- oropharynx normal Cardiovascular: regular rate and rhythm; normal S1, S2; no murmurs, rubs, clicks or gallops; no peripheral edema Respiratory: lungs clear to auscultation; without wheezes, rales or rhonchi. On room air. Abdomen: soft, non-tender, non-distended; positive bowel sounds, overweight Neurological: alert, oriented x 3, normal speech; no focal findings or movement disorder noted Musculoskeletal: no significant deformity or tenderness to palpation. Left foot drsg intact, malodorous Skin: normal coloration, texture and turgor; no lesions or eruptions Psych: normal mood and affect Results/Medications Reviewed 07/29/20 6:25 AM Laboratory, Microbiology, Cardiology, Medications and Transcriptions * Nolan Messina VMONTSERRAT - 07/29/2020 5:29 AM EDT Foot and Ankle Surgery Progress Note ASSESSMENT Mikayla Pappas 59 y.o. male with PMHx DM type II, HTN presents with left foot wounds with concern for deep infection. - Afebrile, VSS - Labs reviewed: A1c 13.5 - Imaging reviewed: XR: 07/26 no evidence of acute osteomyelitis. MRI: 07/26 Suspected early osteomyelitis of the 1st metatarsal base and proximal shaft. Small plantar ulceration at the 2nd MTP joint. No abscess or osteomyelitis. No evidence of osteomyelitis at the heel. - NIVS: 07/26 Right: ANUP 1.22, TBI 0.93 no evidence of HDSS, Left: ANUP 1.27, TBI 0.55 no evidence of HDSS - Blood cultures 07/26 NGTD - Swab culture (07/26): GPC, GNB, GND preliminary PLAN: - Dressing applied: DSD, Kerlix, Spencer - NWB to LLE and postop shoe with assistive device. - Empiric IV Vanco/Zosyn - Patient has preoperative risk stratification, [place] [facility] [place] - Plan for OR today (07/29) for left foot I&D with bone biopsies. N.p.o. since midnight - Patient to be discussed with Dr. Calvillo, further plan per attending physician SUBJECTIVE Pt seen and evaluated at bedside. Resting comfortably. Denies any overnight events or any n/v/f/c/sob or chest pain. No new pedal complaints. Patient NPO since midnight. PHYSICAL EXAM Vital Signs BP (!) 151/71 (BP Location: Left arm, Patient Position: Lying) Pulse 78 Temp 99.3 F (37.4 C) (Oral) Resp 14 Ht 5' 8 Wt 88.5 kg (195 lb) SpO2 96% BMI 29.65 kg/m Wt Readings from Last 25 Encounters: 07/26/20 88.5 kg (195 lb) 07/26/20 88.5 kg (195 lb) 07/26/20 90.7 kg (200 lb) 08/02/16 100.2 kg (221 lb) Ins & Outs Intake/Output Summary (Last 24 hours) at 07/29/2020 05 Last data filed at 07/28/20202039 Gross per 24 hour Intake 1842.68 ml Output Net 1842.68 ml General: Patient seen & evaluated at bedside. Patient in no apparent distress, resting comfortably in bed. LE Physical Exam: VASCULAR: DP pulse palpable, bilaterally and PT pulse palpable, bilaterally. CFT < 5 sec to all digits bilateral lower extremities. Severe edema appreciated to the level of the midfoot, left . NEUROLOGICAL: Light touch sensation intact to the level of the ankle, bilaterally. DERMATOLOGICAL: Left foot: Full-thickness wound noted to the dorsal and plantar aspect of left foot. Erythema extending from all digits to mid dorsal foot. Dorsal wound measures approximately 6 cm x 0.3 and probes to bone. Dorsal wound is not contiguous with the plantar wound. At the central and proximal aspect of the wound, necrotic tissue measuring approximately 3 x 1-1/2 cm noted. The wound bed consist of fibrotic slough. Wound edges do not undermine. No sinus tracts noted. No purulence, fluctuance, crepitus, bogginess noted. Malodor noted. Plantar wound measures approximately 1 cm x 1 cm x 1.5 cm. Plantar wound is not contiguous with dorsal wound. Wound edges do not undermine but are surrounded by hyperkeratosis. No sinus tracts, purulence, fluctuance, crepitus, bogginess, drainage, malodor noted. MUSCULOSKELETAL: No tenderness palpation to either wound mention above. Muscle strength 5 out of 5 bilateral. Gastric sole soleal equinus appreciated bilateral. LABS Lab Results Component Value Date WBC 7.26 07/28/2020 HGB 10.4 (L) 07/28/2020 HCT 32.0 (L) 07/28/2020 MCV 90.7 07/28/2020 PLT 302 07/28/2020 Lab Results Component Value Date GLUCOSE 123 (H) 07/28/2020 CALCIUM 9.1 07/28/2020 NA 134 (L) 07/28/2020 K 3.8 07/28/2020 CL 101 07/28/2020 BUN 18 07/28/2020 CREATININE 1.02 07/28/2020 US Doppler ankle/brachial index Final Result Ultrasound duplex arterial leg left Final Result MR Heel Left Without Contrast Final Result 1. Bjzgrrjs-dx-kcmpa dorsal ulcer at the level the left 1st metatarsal base and shaft. Adjacent skin thickening and subcutaneous edema, likely cellulitis. No abscess. Suspected early osteomyelitis ofthe 1st metatarsal base and proximal shaft. 2. Small plantar ulceration at the 2nd MTP joint. No abscess or osteomyelitis. 3. No evidence of osteomyelitis at the heel. [employer] Workstation ID: [id number] MR Foot Left Without Contrast Final Result 1. Fssnlwww-he-hhgnv dorsal ulcer at the level the left 1st metatarsal base and shaft. Adjacent skin thickening and subcutaneous edema, likely cellulitis. No abscess. Suspected early osteomyelitis ofthe 1st metatarsal base and proximal shaft. 2. Small plantar ulceration at the 2nd MTP joint. No abscess or osteomyelitis. 3. No evidence of osteomyelitis at the heel. [employer] Workstation ID: [id number] * Azul Ortiz [facility],PharmD - 07/28/2020 9:47 AM EDT Pharmacokinetic Consult Vancomycin Dosing Mikayla Pappas is a 59 y.o. male who has been consulted for vancomycin dosing for L foot wounds with concern for deep infection Relevant clinical data and objective history reviewed: Creatinine Date Value Ref Range Status 07/28/2020 1.02 0.50 - 1.30 mg/dL Final 07/27/2020 0.83 0.50 - 1.30 mg/dL Final 07/26/2020 0.79 0.50 - 1.30 mg/dL Final BUN Date Value Ref Range Status 07/28/2020 18 8 - 25 mg/dL Final 07/27/2020 14 8 - 25 mg/dL Final 07/26/2020 21 8 - 25 mg/dL Final Estimated Creatinine Clearance: 76.4 mL/min (by C-G formula based on SCr of 1.02 mg/dL). I/O last 3 completed shifts: In: 2112 [P.O.:250; I.V.:905.4; IV Piggyback:957.6] Out: 250 [Urine:250] Lab Results Component Value Date/Time WBC 7.26 07/28/2020 05:00 AM HGB 10.4 (L) 07/28/2020 05:00 AM HCT 32.0 (L) 07/28/2020 05:00 AM MCV 90.7 07/28/2020 05:00 AM PLT 302 07/28/2020 05:00 AM Temp Readings from Last 3 Encounters: 07/28/20 98.6 F (37 C) (Oral) 07/26/20 99.1 F (37.3 C) (Oral) 08/03/16 97.5 F (36.4 C) Assessment/Plan -Goal vancomycin trough 15-20 mcg/ml -Current vancomycin trough 16.5 mcg/ml -Patient is currently at goal. Will continue with current dosing of vancomycin 1250 mg iv q12h -Pharmacy will continue to monitor and adjust as appropriate * Renu Lima RN - 07/28/2020 8:22 AM EDT DISCHARGE PLAN PROGRESS NOTE Date: 07/28/2020 Time: 8:22 AM Patient Name: Mikayla Pappas Date of : 1960 Sex: Male Discharge Readiness Expected Discharge Date: 08/01/20 Barriers to Discharge: Other (Comment)(Plan for OR Sunday 07/29) Anticipated Discharge Plan Anticipated HME: Toilet seat director of guidance, Tub/Shower chair Anticipated Home Care Needs: None * Mirta Mills CNP - 07/28/2020 6:09 AM EDT [facility] [place] Assessment and Plan Mikayla Pappas is a 59 y.o. male patient of Isis Rincon DO with history of DM type II, HTN,left foot wound presented with worsening left foot wound. Left diabetic foot ulcer w/out sepsis Inflammatory markers elevated XR L foot (07/26) no acute bony abnormality MRI L foot/heel (07/26) suspected early OM NIVS (07/27) no evidence of significant stenosis, normal perfusion Inflammatory markers elevated Blood cx (07/26) NGTD; Wound cx (07/26) GPC, GNB, gram neg diplococci Consulted Podiatry and ID Vanco/Zosyn started (07/26) Plan for OR (07/29) Pre-op evaluation Patient denies acute chest pain or dyspnea Patient without history of CAD, CHF, CKD or Cerebrovascular Disease EKG with bifascicular block that is present dating back to 2015 No other cardiac testing in computer system Patient functional capacity at 4 METS RCRI score of 1 (IDDM2) Per ACC/AHA guidelines, patient may proceed with surgery without any further testing with acceptable risk. IDDM2, uncontrolled A1c 13.5%; pt states he has been running low on insulin and rationing due to costs Home regimen: glipizide and Janumet, Lantus 55U QAM and Humalog SSi Hold home orals; started on Lantus 50U QHS and Humalog correctional SSI (normal) Will monitor insulin needs and augment as needed Accuchecks and diabetic diet Consult adult educator Will need Rx for basaglar at id Essential HTN Continue home Losartan LORENA Autopap prn Encourage IS and OOB as tolerated Neuropathy Continue home gabapentin Code Status: Full Code Quality Measures DVT Prophylaxis: Lovenox Todd Catheter: Absent Disposition Discharge Location: Pending Estimated Discharge Date: Pending; plan for OR Saturday Outpatient Testing: Pending Subjective Pt lying in bed. Denies any chest pain, pressure of discomfort. Denies any SOB, cough, congestion. Denies any abdominal pain, nausea/vomiting. Tolerating PO intake. States he has polyuria but no dysuria. Denies bowel dysfunction. LBM 07/27. Review of Systems All systems have been reviewed and are negative except as noted in HPI or below Objective BP 124/71 (BP Location: Left arm, Patient Position: Lying) Pulse 76 Temp 99.5 F (37.5 C) (Oral) Resp 14 Ht 5' 8 Wt 88.5 kg (195 lb) SpO2 93% BMI 29.65 kg/m Physical Examination General Appearance: alert, disheveled, and in no acute distress HEENT: Head- normocephalic; Eyes- PERRLA, EOMI; Ears- external auditory canals clear, hearing intact; Nose- no nasal discharge; Throat- oropharynx normal Cardiovascular: regular rate and rhythm; normal S1, S2; no murmurs, rubs, clicks or gallops; no peripheral edema Respiratory: lungs clear to auscultation; without wheezes, rales or rhonchi. On room air. Abdomen: soft, non-tender, non-distended; positive bowel sounds, overweight Neurological: alert, oriented x 3, normal speech; no focal findings or movement disorder noted Musculoskeletal: no significant deformity or tenderness to palpation. Left foot drsg intact, malodorous Skin: normal coloration, texture and turgor; no lesions or eruptions Psych: normal mood and affect Results/Medications Reviewed 07/28/20 6:09 AM Laboratory, Microbiology, Cardiology, Medications and Transcriptions * Nolan Messina DPM - 07/28/2020 5:29 AM EDT Foot and Ankle Surgery Progress Note ASSESSMENT Mikayla Pappas 59 y.o. male with PMHx DM type II, HTN presents with left foot wounds with concern for deep infection. - Afebrile, VSS - Labs reviewed: A1c 13.5 - Imaging reviewed: XR: 07/26 no evidence of acute osteomyelitis. MRI: 07/26 Suspected early osteomyelitis of the 1st metatarsal base and proximal shaft. Small plantar ulceration at the 2nd MTP joint. No abscess or osteomyelitis. No evidence of osteomyelitis at the heel. - NIVS: 07/26 Right: ANUP 1.22, TBI 0.93 no evidence of HDSS, Left: ANUP 1.27, TBI 0.55 no evidence of HDSS - Blood cultures 07/26 NGTD - Swab culture (07/26): GPC, GNB, GND preliminary PLAN: - Dressing applied: DSD, Kerlix, Spencer - NWB to LLE and postop shoe with assistive device. - Empiric IV Vanco/Zosyn - Patient has preoperative risk stratification, appreciate [facility] - Plan for OR tomorrow (07/29) for left foot I&D with bone biopsies. N.p.o. at midnight - Patient discussed with Dr. Calvillo, further plan per attending physician SUBJECTIVE Pt seen and evaluated at bedside. Resting comfortably. Denies any overnight events or any n/v/f/c/sob or chest pain. No new pedal complaints. Patient was told the surgical plan this morning. Patient will be n.p.o. at midnight. Patient's questions and concerns were addressed. PHYSICAL EXAM Vital Signs BP 124/71 (BP Location: Left arm, Patient Position: Lying) Pulse 76 Temp 99.5 F (37.5 C) (Oral) Resp 14 Ht 5' 8 Wt 88.5 kg (195 lb) SpO2 93% BMI 29.65 kg/m Wt Readings from Last 25 Encounters: 07/26/20 88.5 kg (195 lb) 07/26/20 88.5 kg (195 lb) 07/26/20 90.7 kg (200 lb) 08/02/16 100.2 kg (221 lb) Ins & Outs Intake/Output Summary (Last 24 hours) at 07/28/2020 0529 Last data filed at 07/28/2020 0049 Gross per 24 hour Intake 1811.82 ml Output 250 ml Net 1561.82 ml General: Patient seen & evaluated at bedside. Patient in no apparent distress, resting comfortably in bed. LE Physical Exam: VASCULAR: DP pulse palpable, bilaterally and PT pulse palpable, bilaterally. CFT < 5 sec to all digits bilateral lower extremities. Severe edema appreciated to the level of the midfoot, left . NEUROLOGICAL: Light touch sensation intact to the level of the ankle, bilaterally. DERMATOLOGICAL: Left foot: Full-thickness wound noted to the dorsal and plantar aspect of left foot. Erythema extending from all digits to mid dorsal foot. Dorsal wound measures approximately 6 cm x 0.3 and probes to bone. Dorsal wound is not contiguous with the plantar wound. At the central and proximal aspect of the wound, necrotic tissue measuring approximately 3 x 1-1/2 cm noted. The wound bed consist of fibrotic slough. Wound edges do not undermine. No sinus tracts noted. No purulence, fluctuance, crepitus, bogginess noted. Malodor noted. Plantar wound measures approximately 1 cm x 1 cm x 1.5 cm. Plantar wound is not contiguous with dorsal wound. Wound edges do not undermine but are surrounded by hyperkeratosis. No sinus tracts, purulence, fluctuance, crepitus, bogginess, drainage, malodor noted. MUSCULOSKELETAL: No tenderness palpation to either wound mention above. Muscle strength 5 out of 5 bilateral. Gastric sole soleal equinus appreciated bilateral. LABS Lab Results Component Value Date WBC 8.46 07/27/2020 HGB 10.3 (L) 07/27/2020 HCT 30.8 (L) 07/27/2020 MCV 89.5 07/27/2020 PLT 290 07/27/2020 Lab Results Component Value Date GLUCOSE 167 (H) 07/27/2020 CALCIUM 8.9 07/27/2020 NA 137 07/27/2020 K 3.7 07/27/2020 CL 101 07/27/2020 BUN 14 07/27/2020 CREATININE 0.83 07/27/2020 US Doppler ankle/brachial index Final Result Ultrasound duplex arterial leg left Final Result MR Heel Left Without Contrast Final Result 1. Wgigcwwc-xp-tavvz dorsal ulcer at the level the left 1st metatarsal base and shaft. Adjacent skin thickening and subcutaneous edema, likely cellulitis. No abscess. Suspected early osteomyelitis ofthe 1st metatarsal base and proximal shaft. 2. Small plantar ulceration at the 2nd MTP joint. No abscess or osteomyelitis. 3. No evidence of osteomyelitis at the heel. [employer] Workstation ID: [id number] MR Foot Left Without Contrast Final Result 1. Hgutqrku-zs-xeymj dorsal ulcer at the level the left 1st metatarsal base and shaft. Adjacent skin thickening and subcutaneous edema, likely cellulitis. No abscess. Suspected early osteomyelitis ofthe 1st metatarsal base and proximal shaft. 2. Small plantar ulceration at the 2nd MTP joint. No abscess or osteomyelitis. 3. No evidence of osteomyelitis at the heel. [employer] Workstation ID: [id number] * Nolan Messina DPM - 07/27/2020 9:32 AM EDT Foot and Ankle Surgery Progress Note ASSESSMENT Mikayla Pappas 59 y.o. male with PMHx DM type II, HTN presents with left foot wounds with concern for deep infection. - Afebrile, VSS - Labs reviewed: WBC 8.39, Cr 0.79, CRP 41.3, ESR 103, A1c pending - XR: 07/26 no evidence of acute osteomyelitis. - MRI: 07/26 Suspected early osteomyelitis of the 1st metatarsal base and proximal shaft. Small plantar ulceration at the 2nd MTP joint. No abscess or osteomyelitis. No evidence of osteomyelitis at the heel. - NIVS: 07/26 Right: ANUP 1.22, TBI 0.93 no evidence of HDSS, Left: ANUP 1.27, TBI 0.55 no evidence of HDSS - Blood cultures 07/26 NGTD - Swab culture (07/26): GPC, GNB, GND - preliminary PLAN: - Empiric IV Vanco/Zosyn - Dressing applied: DSD, Kerlix, Spencer - NWB to LLE and postop shoe with assistive device. - Patient has preoperative risk stratification, [place] [facility] [place] - Plan for OR Sunday 07/29. - Patient disc erythema ussed with Dr. Calvillo, further plan per attending physician SUBJECTIVE Pt seen and evaluated at bedside. Resting comfortably. Discussed surgical plan with the patient at length. Patient understands the plan. Questions and concerns were addressed. PHYSICAL EXAM Vital Signs BP 103/65 (BP Location: Left arm, Patient Position: Lying) Pulse 63 Temp 98.8 F (37.1 C) (Oral) Resp 16 Ht 5' 8 Wt 88.5 kg (195 lb) SpO2 97% BMI 29.65 kg/m Wt Readings from Last 25 Encounters: 07/26/20 88.5 kg (195 lb) 07/26/20 88.5 kg (195 lb) 07/26/20 90.7 kg (200 lb) 08/02/16 100.2 kg (221 lb) Ins & Outs Intake/Output Summary (Last 24 hours) at 07/27/2020 0933 Last data filed at 07/27/2020 0602 Gross per 24 hour Intake 605.61 ml Output Net 605.61 ml General: Patient seen & evaluated at bedside. Patient in no apparent distress, resting comfortably in bed. LE Physical Exam: VASCULAR: DP pulse palpable, bilaterally and PT pulse palpable, bilaterally. CFT < 5 sec to all digits bilateral lower extremities. Severe edema appreciated to the level of the midfoot, left . NEUROLOGICAL: Light touch sensation intact to the level of the ankle, bilaterally. DERMATOLOGICAL: Left foot: Full-thickness wound noted to the dorsal and plantar aspect of left foot. Erythema extending from all digits to mid dorsal foot. Dorsal wound measures approximately 6 cm x 0.3 and probes to bone. Dorsal wound is not contiguous with the plantar wound. At the central and proximal aspect of the wound, necrotic tissue measuring approximately 3 x 1-1/2 cm noted. The wound bed consist of fibrotic slough. Wound edges do not undermine. No sinus tracts noted. No purulence, fluctuance, crepitus, bogginess noted. Malodor noted. Plantar wound measures approximately 1 cm x 1 cm x 1.5 cm. Plantar wound is not contiguous with dorsal wound. Wound edges do not undermine but are surrounded by hyperkeratosis. No sinus tracts, purulence, fluctuance, crepitus, bogginess, drainage, malodor noted. MUSCULOSKELETAL: No tenderness palpation to either wound mention above. Muscle strength 5 out of 5 bilateral. Gastric sole soleal equinus appreciated bilateral. LABS Lab Results Component Value Date WBC 8.46 07/27/2020 HGB 10.3 (L) 07/27/2020 HCT 30.8 (L) 07/27/2020 MCV 89.5 07/27/2020 PLT 290 07/27/2020 Lab Results Component Value Date GLUCOSE 167 (H) 07/27/2020 CALCIUM 8.9 07/27/2020 NA 137 07/27/2020 K 3.7 07/27/2020 CL 101 07/27/2020 BUN 14 07/27/2020 CREATININE 0.83 07/27/2020 US Doppler ankle/brachial index Ultrasound duplex arterial leg left MR Heel Left Without Contrast Final Result 1. Jkztlhyt-ku-jdoli dorsal ulcer at the level the left 1st metatarsal base and shaft. Adjacent skin thickening and subcutaneous edema, likely cellulitis. No abscess. Suspected early osteomyelitis ofthe 1st metatarsal base and proximal shaft. 2. Small plantar ulceration at the 2nd MTP joint. No abscess or osteomyelitis. 3. No evidence of osteomyelitis at the heel. [employer] Workstation ID: [id number] MR Foot Left Without Contrast Final Result 1. Imvjccsw-re-nszcw dorsal ulcer at the level the left 1st metatarsal base and shaft. Adjacent skin thickening and subcutaneous edema, likely cellulitis. No abscess. Suspected early osteomyelitis ofthe 1st metatarsal base and proximal shaft. 2. Small plantar ulceration at the 2nd MTP joint. No abscess or osteomyelitis. 3. No evidence of osteomyelitis at the heel. [employer] Workstation ID: [id number] * Renu Lima RN - 07/27/2020 8:06 AM EDT DISCHARGE PLAN PROGRESS NOTE Date: 07/27/2020 Time: 8:06 AM Patient Name: Mikayla Pappas Date of : 1960 Sex: Male Discharge Readiness Expected Discharge Date: 07/29/20 Barriers to Discharge: Other (Comment)(possible OR pending MRI and NIVS) Anticipated Discharge Plan Anticipated HME: Toilet seat director of guidance, Tub/Shower chair Anticipated Home Care Needs: Undetermined * Mirta Mills CNP - 07/27/2020 6:32 AM EDT [facility] [place] Assessment and Plan Mikayla Pappas is a 59 y.o. male patient of Isis Conor Rincon DO with history of DM type II, HTN,left foot wound presented with worsening left foot wound. Left diabetic foot ulcer w/out sepsis Inflammatory markers elevated XR L foot (07/26) no acute bony abnormality MRI L foot/heel (07/26) suspected early OM NIVS (07/27) no evidence of significant stenosis, normal perfusion Inflammatory markers elevated Blood cx (07/26) NGTD; Wound cx (07/26) GPC, GNB, gram neg diplococci Consulted Podiatry and ID Vanco/Zosyn started (07/26) Pre-op evaluation Patient denies acute chest pain or dyspnea Patient without history of CAD, CHF, CKD or Cerebrovascular Disease EKG with bifascicular block that is present dating back to 2015 No other cardiac testing in computer system Patient functional capacity at 4 METS RCRI score of 1 (IDDM2) Per ACC/AHA guidelines, patient may proceed with surgery without any further testing with acceptable risk. IDDM2, uncontrolled A1c 13.5%; pt states he has been running low on insulin and rationing due to costs Home regimen: glipizide and Janumet, Lantus 55U QAM and Humalog SSi Hold home orals; started on Lantus 50U QHS and Humalog correctional SSI (normal) Will monitor insulin needs and augment as needed Accuchecks and diabetic diet Consult adult educator Essential HTN Continue home Losartan LORENA Autopap prn Encourage IS and OOB as tolerated Neuropathy Continue home gabapentin Code Status: Full Code Quality Measures DVT Prophylaxis: Lovenox Todd Catheter: Absent Disposition Discharge Location: Pending Estimated Discharge Date: Pending Outpatient Testing: Pending Subjective Pt lying in bed. States he is feeling ok. Denies any chest pain, pressure of discomfort. Denies anySOB, cough, congestion. Denies any abdominal pain, nausea/vomiting. Tolerating PO intake. States hehas polyuria but no dysuria. Denies bowel dysfunction. LBM yesterday. Review of Systems All systems have been reviewed and are negative except as noted in HPI or below Objective BP 117/71 (BP Location: Left arm, Patient Position: Lying) Pulse 70 Temp 99.2 F (37.3 C) (Oral) Resp 16 Ht 5' 8 Wt 88.5 kg (195 lb) SpO2 96% BMI 29.65 kg/m Physical Examination General Appearance: alert, disheveled, and in no acute distress HEENT: Head- normocephalic; Eyes- PERRLA, EOMI; Ears- external auditory canals clear, hearing intact; Nose- no nasal discharge; Throat- oropharynx normal Cardiovascular: regular rate and rhythm; normal S1, S2; no murmurs, rubs, clicks or gallops; no peripheral edema Respiratory: lungs clear to auscultation; without wheezes, rales or rhonchi. On room air. Abdomen: soft, non-tender, non-distended; positive bowel sounds, overweight Neurological: alert, oriented x 3, normal speech; no focal findings or movement disorder noted Musculoskeletal: no significant deformity or tenderness to palpation. Left foot drsg intact, malodorous Skin: normal coloration, texture and turgor; no lesions or eruptions Psych: normal mood and affect Results/Medications Reviewed 07/27/20 6:32 AM Laboratory, Microbiology, Cardiology, Medications and Transcriptions * Lanette Resendez RN - 07/26/2020 3:02 PM EDT EKG done and in chart documented in this encounter* Jamarcus Manley MD - 09/13/2020 10:30 AM EST DATE: 09/13/2020 CHIEF COMPLAINT: Chief Complaint Patient presents with Urinary Frequency was having hematuria. Urinary Incontinence does not have sensation that he is urinating HISTORY OF PRESENT ILLNESS: Mikayla Pappas is a 60 y.o. male with history of HTN, HLD, and DM who presents for evaluation of bladder mass. Initially seen by and referred by PCP Dr. Dominguez. He was seen at [facility] last month when he developed acute onset of gross hematuria. They were unable to pass a catheter, and he required a urethral dilation in the OR. He had a biopsy of his bladder which showed no evidence of cancer. After the procedure, he had irrigation for several days, and the catheter was then removed. He states that leading up to this episode, he had significant weak stream and straining to void. Since the catheter has been removed, his stream is has improved, but he has significant issues with urinary urgency, frequency, and large volume incontinence. HISTORY: The past medical, past surgical, family, and social histories were reviewed with the patient, and any changes were reconciled in the patient's chart. 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 Past Surgical History: Procedure Laterality Date AMPUTATION FOOT Left 08/05/2020 Procedure: POSSIBLE AMPUTATION; Surgeon: Jet Calvillo DPM; Location: [facility] OR; Service: Podiatry AMPUTATION TOE(S) Right 08/03/2016 Procedure: RIGHT 3RD DIGIT AMPUTATION ; Surgeon: Jet Calvillo DPM; Location: [facility] OR; Service: CARDIAC CATHETERIZATION ablation for WPW CATHETER INSERTION SUPRAPUBIC N/A 08/16/2020 Procedure: CATHETER PLACEMENT OVER GUIDE; Surgeon: Paul Kim MD; Location: [facility] OR; Service: Urology CYSTO DIRECT VISION INTERNAL URETHROTOMY N/A 08/16/2020 Procedure: CYSTOSCOPY URETERAL DILATION POSSIBLE DIRECT VISION INTERNAL URETHROTOMY; Surgeon: Paul Kim MD; [place] [facility] [place]; Service: Urology FOOT SURGERY Right 2nd toe partial amputation INCISION AND DRAINAGE FOOT AND ANKLE Left 07/29/2020 Procedure: LEFT FOOT ULCER INCISION AND DRAINAGE LEFT FOOT BONE DEBRIDEMENT W/ BIOPSY; Surgeon: Jet Calvillo DPM; Location: [facility] OR; Service: Podiatry INCISION AND DRAINAGE FOOT AND ANKLE Left 08/05/2020 Procedure: LEFT FOOT ULCER DEBRIDEMENT; Surgeon: Jet Calvillo DPM; Location: [facility] OR; Service: Podiatry Family History Problem Relation Age of Onset Diabetes Father Surgical complications Neg Hx Anesthesia problems Neg Hx Heart disease Neg Hx Clotting disorder Neg Hx Deep vein thrombosis Neg Hx Pulmonary embolism Neg Hx ALLERGIES AND MEDICATIONS Allergies: Dilantin infatabs [phenytoin] Current Outpatient Medications: alcohol swabs PadM, Check your sugars up to 4 times a day ., Disp: 100 each, Rfl: 11 amLODIPine (NORVASC) 10 MG tablet, Take 1 (one) tablet (10 mg total) by mouth daily Start: 08/07/20., Disp: 30 tablet, Rfl: 0 ascorbic acid, vitamin C, (ascorbic acid with lakesha hips) 500 MG tablet, Take 500 mg by mouth daily ., Disp: , Rfl: dawgpyb-mrruvdlxutjry-fwrwxihd (EXCEDRIN MIGRAINE) 250-250-65 mg per tablet, Take 1 tablet by mouthevery 6 (six) hours as needed for pain., Disp: , Rfl: blood sugar diagnostic strips, Check your sugars up to 4 times a day ., Disp: 100 each, Rfl: 11 blood-glucose meter Mis, Check your sugars up to 4 times a day ., Disp: 1 each, Rfl: 0 cyanocobalamin, vitamin B-12, (VITAMIN B-12 ORAL), Take 1 tablet by mouth daily ., Disp: , Rfl: gabapentin (NEURONTIN) 300 MG capsule, Take 1 (one) capsule (300 mg total) by mouth every 8 (eight)hours (Days supply per fill: 30) ., Disp: 90 capsule, Rfl: 0 glipiZIDE (GLUCOTROL XL) 10 MG 24 hr tablet, Take 10 mg by mouth daily ., Disp: , Rfl: insulin glargine (Basaglar KwikPen U-100 Insulin) 100 unit/mL (3 mL) InPn, Inject 50 (fifty) Units under the skin nightly ., Disp: 15 mL, Rfl: 0 insulin lispro (HumaLOG KwikPen Insulin) 100 unit/mL InPn, For blood sugar 141- 180 give 2 units subcutaneoulsy, for 181-220 give 4 units, for 221-260 give 6 units, and for 261-300 give 8 units. ., Disp: 18 mL, Rfl: 0 lancets Misc, Check your sugars up to 4 times a day ., Disp: 100 each, Rfl: 11 pen needle, diabetic 32 gauge x /32 Ndle, Change pen needles daily as needed up to 4 times. ., Disp: 100 each, Rfl: 11 rosuvastatin (Crestor) 40 MG tablet, Take 1 (one) tablet (40 mg total) by mouth every evening ., Disp: 30 tablet, Rfl: 0 sitagliptan-metFORMIN (JANUMET) 50-1,000 mg per tablet, Take 1 tablet by mouth daily ., Disp: , Rfl: cephALEXin (KEFLEX) 500 MG capsule, 1 capsule ., Disp: , Rfl: doxazosin (CARDURA) 4 MG tablet, , Disp: , Rfl: HYDROcodone-acetaminophen (NORCO) 5-325 mg per tablet, 1 Unspecified daily ., Disp: , Rfl: losartan (COZAAR) 25 MG tablet, 1 Unspecified daily ., Disp: , Rfl: oxybutynin (DITROPAN-XL) 10 MG 24 hr tablet, Take 1 (one) tablet (10 mg total) by mouth daily ., Disp: 30 tablet, Rfl: 11 REVIEW OF SYSTEMS: All other organ systems were reviewed and were negative except as documented in the HPI. PHYSICAL EXAM: Physical Exam Constitutional: He is oriented to person, place, and time. He appears well- developed and well-nourished. HENT: Head: Normocephalic and atraumatic. Eyes: EOM are normal. Neck: Normal range of motion. No masses noted Cardiovascular: Normal rate and intact distal pulses. Pulmonary/Chest: Effort normal. No respiratory distress. Abdominal: Soft. There is no abdominal tenderness. No hernia, mass, or palpable liver/spleen detected Genitourinary: Genitourinary Comments: Penis uncircumcised, there is mild urethral meatal stenosis,no lesions on glans, no scrotal lesions, testes descended with normal size and consistency bilaterally, epididymis non-tender bilaterally KIM: no anal/perineal lesions or hemorrhoids, normal sphincter tone, prostate mildly enlarged, non-tender, anodular, firm; seminal vesicles not palpable Musculoskeletal: Normal range of motion. Lymphadenopathy: He has no cervical adenopathy. Right: No inguinal adenopathy present. Left: No inguinal adenopathy present. Neurological: He is alert and oriented to person, place, and time. Skin: Skin is warm and dry. No rash noted. Psychiatric: He has a normal mood and affect. Nursing note and vitals reviewed. DATA: IMAGING: Images and report independently reviewed from CT 08/2020. The bladder wall is diffusely thickened and very abnormal appearing. There is bilateral mild to moderate hydronephrosis. LAB: Cr 1.09 Bladder biopsy 08/2020: atypia and inflammation, but no malignancy POC: Urine dipstick shows negative for nitrites, positive for leukocytes, red blood cells, glucose. Summary of outside records: Op note reviewed from 08/16/[address] Lorna ONEILL. He had a meatal stenosis requiring dilation. The prostate appeared normal. There was diffuse erythema of the bladder, but no definite mass. Random biopsies were performed. ASSESSMENT / PLAN: Problem List Items Addressed This Visit None Visit Diagnoses Overactive bladder - Primary Relevant Medications oxybutynin (DITROPAN-XL) 10 MG 24 hr tablet Mass of urinary bladder Relevant Orders POC Urinalysis Dipstick (Completed) Bladder wall thickening Distal urethral stricture Bilateral hydronephrosis Urinary incontinence Presented with gross hematuria 08/2020 Underwent urethral dilation and bladder biopsy (negative for malignancy) by Dr. Lorna RAMOS Subsequently developed incontinence Plan for today: This gentleman has a very abnormal CT scan with diffuse thickening of the bladder. Based on his cystoscopy report and negative bladder biopsy, my suspicion is that this is related to longstanding bladder outlet obstruction from his meatal stricture. His incontinence now is likely a c ombination of the diffuse bladder wall thickening with decreased resistance as the stricture has been dilated. We discussed adding an anticholinergic medication to try to decrease the episodes of urinary urgency and incontinence. I also encouraged him to perform periodic self dilation of the urethra to prevent recurrence of the stricture as it already appears to be coming back slightly. RTC 3 months Jamarcus Manley MD documented in this encounter* Elissa Moreland RN - 10/22/2020 10:20 AM EST 10/22/20 1000 Discharge Planning Anticipated Facility Type intermediate facility [facility] Disposition D/C Disposition SNF Agency/Destination [facility] Transportation Type Ambulance Transportation Company/Agency Name [facility] Options Reviewed List provided;Possible expense Reason for Choice Patient/Family preference Received secure chat from bedside RN that transport needed to be set up. Per RN, [facility] came last PM to pick pulling machine tender pt and notes stated transport was set for tonight 10-22, not last night -. Called [facility] and set transport up for tonight between 6:15-7:15 PM. Bedside RN aware of times, packet in pt red folder. Covid results and DOD faxed to facility. [facility] will continue to monitor * Tyrone Capellan CNP - 10/22/2020 8:52 AM EST Cardiology Progress Note Assessment/Plan: Other Abnormal EKG Assessment & Plan ekg shows evidence of LVH, RBBB. Plan: Check echo Elevated troponin Assessment & Plan Although the absolute value of the high sensitivity troponin(s) is elevated, the delta of subsequent troponins compared to the initial troponin is negative, indicating that etiology of the troponin elevation is not acute coronary syndrome. Chest pain Assessment & Plan Atypical chest pain. Plan: Order lexiscan cardiolite. 10/2268-[id number]-gy ischemia, echo EF 55%, no further cardiac evaluation, ok to discharge when ok with primary service. Call if needed, thanks. Subjective: Mr. Pappas denies dyspnea Objective: Vital signs in last 24 hours: Temp: [97.7 F (36.5 C)-99.3 F (37.4 C)] 97.7 F (36.5 C) Heart Rate: [66-81] 69 Resp: [16-20] 16 BP: (122-133)/(66-83) 125/70 Intake/Output last 3 shifts: I/O last 3 completed shifts: In: 2305 [P.O.:2305] Out: 5875 [Urine:5875] Intake/Output this shift: No intake/output data recorded. Review of Systems: All systems were reviewed and otherwise negative except for that noted above. Physical Exam: Neck: No JVD. Heart:: Regular Rhythm. Normal Intensity S1 and S2. No murmurs. Lungs: Clear to auscultation. Good air movement. No crackles noted. Extremities: Extremities are warm. No peripheral edema. Otherwise alert and oriented X3 in no acute distress. Head is normocephalic. No epistaxis noted. Abdomen is soft, nontender without any masses noted. No significant muscular atrophy. Normal skin turgor. Telemetry: none Cardiographics: I independently reviewed and noted above. Imaging: Reviewed independently and noted above. Lab Review Results from last 7 days Lab Units 10/20/20 0625 10/19/20 1606 TROPONIN T ng/L 182* 184* Results from last 7 days Lab Units 10/19/20 1606 SODIUM mmol/L 137 POTASSIUM mmol/L 3.8 CHLORIDE mmol/L 100 BUN mg/dL 19 CREATININE mg/dL 0.96 GLUCOSE mg/dL 267* CALCIUM mg/dL 9.1 Results from last 7 days Lab Units 10/20/20 0625 WBC K/mcL 9.49 HGB g/dL 10.6* HCT % 32.3* PLT K/mcL 201 * Carlyn Nguyen MD - 10/21/2020 4:20 PM EST [facility] [place] Assessment and Plan Mikayla Pappas is a 60 y.o. male patient of Greyson Dominguez MD with history of overactive bladder, depression with previous SI, IDDM2, LORENA and HTN with hospital stay 08/15-08/18 for gross hematuria and urinary retention s/p meatal dilation who presented to [facility] with hematuria. UTI Sepsis One week history of suprapubic pain with LUTS UA with many bacteria, >180 RBCs and WBC and large blood, WBC 12 Continue Ancef, BCx2 no growth UCx w/E coli Keflex for total of 14 days per Urology Urinary Retention Hematuria With hospital stay 08/15-08/18 for similar with meatal stenosis dilation Todd placed in Dr. Mercedes's office 10/19 and draining Defer CBI for now. Continue Pyridium. Obtain INR. Continue Todd on discharge Lethargy On 10/21 Supposed to take gabapentin 300mg tid but usually just takes it as needed at night Will change to nightly Uncontrolled IDDM2 with Hyperglycemia HbA1c 13.5% (07/2020) on Janumet, Glipizide and Lantus 50 units nighty BG 267 on arrival. Dose reduce due to diet and poor intake Chest pain A few days ago Never had before EKG w/LAFB, RBBB, I, AVL w/T wave abnormalities (t-wave changes are new since 07/2020 Trops 184>>182 Consult cardiology Lexiscan negative ECHO w/EF 55% Diabetic ulcer on left foot, POA Wound present since 08/2020 Wound care consulted Generalized Weakness One week history with poor PO intake and mechanical fall YOUTH LIAISON OFFICER Currently no injuries and did not experience LOC Expect to improve with treatment above. PT/OT. Fall risk. PT/OT rec up to 5 HTN Normotensive on arrival, continue home Amlodipine and [employer] Losartan in case operative management needed LORENA Continue CPAP at bedtime and with naps Family Contact Information: Code Status: Full Code Quality Measures DVT Prophylaxis: scds Todd Catheter: yes, inserted YOUTH LIAISON OFFICER Disposition Discharge Location: home Estimated Discharge Date: 10/21- Outpatient Testing: tbd Subjective Pt notes left flank and midline pain. Pt notes some sinus congestion, some nausea from post-nasal drip. Pt notes fever last night. He notes his urine stream hasn't been normal since he was here in August. Pt notes chest pain a few days ago, lasted an hour, it went away on its own. Nothing made it better or worse. Pt more tired today. States he doesn't always take his gabapentin 3 times a day. Review of Systems Constitutional: Denies fever, chills, weight loss CV: Denies chest pain, palpitations, peripheral edema Respiratory: Denies shortness of breath, cough, wheezing GI: Denies abdominal pain, nausea, vomiting, diarrhea, constipation : Denies dysuria, frequent urination Objective BP 127/83 (BP Location: Right arm, Patient Position: Lying) Pulse 66 Temp 98.7 F (37.1 C) (Oral) Resp (!) 20 Ht 5' 8 Wt 83.3 kg (183 lb 10.3 oz) SpO2 98% BMI 27.92 kg/m Physical Examination General Appearance: alert, well appearing, and in no acute distress HEENT: Head- normocephalic; Eyes- PERRLA, EOMI; Ears-hearing intact; Nose- no nasal discharge; Throat- oropharynx normal Cardiovascular: regular rate and rhythm; normal S1, S2; no murmurs, rubs, clicks or gallops; no peripheral edema Respiratory: lungs clear to auscultation; without wheezes, rales or rhonchi Abdomen: soft, non-tender, non-distended; positive bowel sounds Neurological: alert, oriented x 3, normal speech; no focal findings or movement disorder noted Musculoskeletal: no significant deformity or tenderness to palpation Skin: normal coloration, texture and turgor; no lesions or eruptions Psych: flat mood and affect Results/Medications Reviewed 10/21/20 4:20 PM Laboratory, Radiology, Medications and Transcriptions * Jabari Cano LSW - 10/21/2020 1:35 PM EST Situation/Background: Mikayla Pappas is a 60 y.o. male patient with history of overactive bladder, depression with previous SI, IDDM2, LORENA and HTN with hospital stay 08/15-08/18 for gross hematuria and urinary retention s/p meatal dilation who presented to [facility] with hematuria. Patient needing shelter stay and is agreeable. Action: Hosiery Repairer attempted to contact both shelter facility referrals that were sent by previous case picker. Hosiery Repairer left voicemails at both facilities. Recommendation: Hosiery Repairer will continue to follow up with admissions at both facilities. Addendum: Patient has been accepted at [facility]. Precert has been started. Patient needs a COVID test and transportation. Associated attestation - Sultana Agudelo LSW - 10/21/2020 6:52 PM EST This worker spoke with school admissions representative Karla who stated that patient's precert is being waived and patient is able to admit to the facility tomorrow. This worker notified MD of need for COVID test. MD to place order. [facility] team arranged ambulance transportation via [facility] (P: [phone]) for tomorrow 10/22 between 6:00-7:00pm. Transport packet is located in patient's chart. HENS completed. This worker has notified MD, account manager employee benefits, facility admissions Karla, and patient of discharge plan and transport time. Weekend CM/SW to fax COVID test results and discharge bundle once available. * Calli Navarro, DENISE - 10/21/2020 4:25 AM EST Charted at wrong time meant for 04:00 * Christine Brown RN - 10/20/2020 12:15 PM EST Noted consult for chronic disease management. COMPLEX DISCHARGE Date: 10/20/2020 Time: 12:15 PM Patient Name: Mikayal Pappas Date of : 1960 Sex: Male Discharge Planning Current Home Equipment: (P) Cane, Walker Anticipated Home Care Needs: (P) Home health care, Undetermined Anticipated Facility Type: (P) intermediate facility, Undetermined Anticipated Discharge Plan Anticipated Home Care Needs: (P) Home health care, Undetermined Anticipated Facility Type: (P) intermediate facility, Undetermined met with patient to discuss possible discharge needs. Patient indicates the he has difficulty ambulating due to boot for LLE and weakness. D/w Dr Nguyen , plans to consult PT/OT for eval Pt indicates he is agreeable to HH or SNF at discharge if needed. I personally met pt on previous admission in August, per chart review pt had [facility] at that time. Anticipate pt needs HH at dc. Placed notify order for liaison to follow --- 1400 spoke with [facility] liaison, unable to accept for dc today, but advised no dc planned today.Region will have availability tomorrow. Await final recs- needs HH order placed. 1535 noted SNF recs, Provided pt with SNF list. Pt chooses [facility] and states he would befine with either [facility] or [facility]. Referrals sent, [facility] to follow. * Carlyn Nguyen MD - 10/20/2020 8:38 AM EST [facility] [place] Assessment and Plan Mikayla Pappas is a 60 y.o. male patient of Greyson Dominguez MD with history of overactive bladder, depression with previous SI, IDDM2, LORENA and HTN with hospital stay 08/15-08/18 for gross hematuria and urinary retention s/p meatal dilation who presented to [facility] with hematuria. UTI Sepsis One week history of suprapubic pain with LUTS UA with many bacteria, >180 RBCs and WBC and large blood, WBC 12 Continue Ancef, BCx2 and UC pending Urinary Retention Hematuria With hospital stay 08/15-08/18 for similar with meatal stenosis dilation Todd placed in Dr. Mercedes's office 10/19 and draining Defer CBI for now. Continue Pyridium. Obtain INR. NPO for possible repeat dilation Uncontrolled IDDM2 with Hyperglycemia HbA1c 13.5% (07/2020) on Janumet, Glipizide and Lantus 50 units nighty BG 267 on arrival. Dose reduce due to diet and poor intake Chest pain A few days ago Never had before EKG w/LAFB, RBBB, I, AVL w/T wave abnormalities (t-wave changes are new since 07/2020 Trops 184>>182 Consult cardiology Diabetic ulcer on left foot, POA Wound present since 08/2020 Wound care consulted Generalized Weakness One week history with poor PO intake and mechanical fall YOUTH LIAISON OFFICER Currently no injuries and did not experience LOC Expect to improve with treatment above. PT/OT. Fall risk. HTN Normotensive on arrival, continue home Amlodipine and [employer] Losartan in case operative management needed LORENA Continue CPAP at bedtime and with naps Family Contact Information: Code Status: Full Code Quality Measures DVT Prophylaxis: scds Todd Catheter: yes, inserted YOUTH LIAISON OFFICER Disposition Discharge Location: home Estimated Discharge Date: Outpatient Testing: tbd Subjective Pt notes left flank and midline pain. Pt notes some sinus congestion, some nausea from post-nasal drip. Pt notes fever last night. He notes his urine stream hasn't been normal since he was here in August. Pt notes chest pain a few days ago, lasted an hour, it went away on its own. Nothing made it better or worse. Review of Systems Constitutional: Denies fever, chills, weight loss CV: Denies chest pain, palpitations, peripheral edema Respiratory: Denies shortness of breath, cough, wheezing GI: Denies abdominal pain, nausea, vomiting, diarrhea, constipation : Denies dysuria, frequent urination Objective BP 125/72 (BP Location: Right arm, Patient Position: Lying) Pulse 66 Temp 98 F (36.7 C) (Oral) Resp 16 Ht 5' 8 Wt 83.3 kg (183 lb 10.3 oz) SpO2 96% BMI 27.92 kg/m Physical Examination General Appearance: alert, well appearing, and in no acute distress HEENT: Head- normocephalic; Eyes- PERRLA, EOMI; Ears-hearing intact; Nose- no nasal discharge; Throat- oropharynx normal Cardiovascular: regular rate and rhythm; normal S1, S2; no murmurs, rubs, clicks or gallops; no peripheral edema Respiratory: lungs clear to auscultation; without wheezes, rales or rhonchi Abdomen: soft, non-tender, non-distended; positive bowel sounds Neurological: alert, oriented x 3, normal speech; no focal findings or movement disorder noted Musculoskeletal: no significant deformity or tenderness to palpation Skin: normal coloration, texture and turgor; no lesions or eruptions Psych: flat mood and affect Results/Medications Reviewed 10/20/20 8:38 AM Laboratory, Radiology, Medications and Transcriptions documented in this encounter Summary Purpose Family History No Family History Records FoundUnknown Family Member Name Dates Details Family history of diabetes m ellitus: Father, Sibling(V18.0, Z83.3) Status:Active Hypertension, benign: Mother Status:Active Chief Complaint and Reason for Visit Chief Complaint PSYCH EVAL Chief Complaint PSYCH EVAL PSYCH EVAL Chief Complaint PSYCH EVAL PSYCH EVAL AMS Additional Source Comments Reason for Visit (unrecogniz ed section and content) Reason Comments Hematuria Status Reason Specialty Diagnoses / Procedures Referre d By Contact Referred To Contact Diagnoses Weakness generalized Pyelonephritis Hematuria, gross Sepsis (HCC) Todd catheter in place prior to arrival Reason Comments Wound Check Status Reason Specialty Diagnoses / Procedures Referre d By Contact Referred To Contact Reason Comments Foot wound Status Reason Specialty Diagnoses / Procedures Referre d By Contact Referred To Contact Diagnoses Significant left sided diabetic foot wound Status Reason Specialty Diagnoses / Procedures Referre d By Contact Referred To Contact Reason Comments Gait Problem Reason Comments Urinary Frequency was having hematuria . Urinary Incontinence does not have sensa tion that he is urinating Status Reason Specialty Diagnoses / Procedures Referred By Contact Referred To Contact Closed Specialty Services Required/Patient' s Best Interest Urology Diagnoses Mass of urinary bladder Greyson Dominguez MD [address] [place] [address] [facility] [address] [facility] [address] [place] [address] Reason Comments Urinary Frequency Back Pain Reason Comments Post-op (R) BKA/shabana Reason Comments Urinary Retention Reason Comments Wound Check Specialty Diagnoses / Procedures Referred By Poonam duffy Referred To Contact Diagnoses Wound infection Diabetic foot infection (HCC) Diabetic ulcer of left foot associated with diabetes mellitus of other type, with other ulcer severity, unspecified part of foot (HCC) L heel pressure ulcer Referral ID Status Reason Start Date Expiration Date Visits Re quested Visits Authorized [id number] 1 1 Reason Comments Constipation c/o rectal pain. sta jase straining to have BM. last BM yesterday. d/c from [facility] yesterday for foot surgery. states issues with blockages in the past. Reason Comments Hearing Loss rt ear Reason Comments Wound Check Dressing Change NPWT Reason Comments Wound Check Dressing Change Reason Onset Date Comments Schedule Sleep studies 02/28/2022 Reason Comments Follow-up Patient states being in the hospital for a left pinky toe amputation and ulcer on his left heel. Reason Comments Sleep Apnea RN TRAUMA LORENA- Specialty Diagnoses / Procedures Referred By Poonam duffy Referred To Contact Sleep Medicine Diagnoses Sleep apnea, unspecified type Procedures Polysomnography Lamin Stringer MD [address] [facility] [address] [place] [address] [facility] Sleep Medicine [facility] [address] [facility], [address] [place] [address] Referral ID Status Reason Start Date Expiration Date Visits Re quested Visits Authorized [id number] Closed 02/21/2022 08/20/2022 1 1 Reason Comments Aggressive Behavior Specialty Diagnoses / Procedures Referred By Contac t Referred To Contact Diagnoses Aggressive behavior Procedures NA [facility] [address] [place] [address] [facility] Emergency Department [address] [place] [address] Referral ID Status Reason Start Date Expiration Date Visits Re quested Visits Authorized [id number] 1 1 Reason Comments Psychiatric Evaluation Specialty Diagnoses / Procedures Referred By Contac t Referred To Contact Diagnoses PTSD (post-traumatic stress disorder) Chronic anemia Acute kidney injury (CMS/HCC) Procedures . Maureen Huitron MD [address] [place] [phone] [facility] Intensive Care [address] [place] [phone] Referral ID Status Reason Start Date Expiration Date Visits Re quested Visits Authorized [id number] 1 1 Reason Comments Follow-up 6 months Isabelle Sawyer RN - 07/26/2020 12:59 PM Adalberto Driscoll DO - 07/26/2020 5:07 AM Mary Foster RN - 07/26/2020 5:00 AM Mary Foster RN - 07/26/2020 4:27 AM EDT ED Notes (unrecognized secti on and content) [facility] at bedside to transport pt to [facility]. Report given to transport crew. ED PROVIDER NOTE [facility] EMERGENCY DEPARTMENT NAME: Mikayla Pappas AGE: 59 y.o. : 1960 VISIT DATE: 07/26/2020 CSN: [id number] PCP: Isis Rincon DO Chief Complaint Patient presents with Foot wound HPI The patient is a 59-year-old male with a history of diabetes, diabetic neuropathy, hypertension, hyperlipidemia, and other medical conditions presenting to the emergency department for a chief complaint of foot wound. The patient notes that in the middle of June he was evaluated by a np Dr. Calvillo noting that he had his foot wound wrapped. The patient notes that he has poor mobility and flexibility with no medical care assistance and poor finances stating that he never took the wrap off and has not been reevaluated noting that he cannot go back to podiatry easily due to financial constraints. The patient notes that this evening however he tried to remove the dressing noting that he was having a difficulty removing the dressing with some bleeding and foul smell leading to his presentation to the emergency department. The patient denies any pain to his foot due to his diabetic neuropathy. The patient denies any fevers or chills. The patient is unsure whether or not the wound has been draining. The patient does not believe that he has had osteomyelitis recently. The patient notes that he is not on any antibiotics. 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, no current bobbin presser f/u Past Surgical History: Procedure Laterality Date AMPUTATION TOE(S) Right 08/03/2016 Procedure: RIGHT 3RD DIGIT AMPUTATION ; Surgeon: Jet Calvillo DPM; Location: [facility] OR; Service: CARDIAC CATHETERIZATION ablation for WPW FOOT SURGERY Right 2nd toe partial amputation Family History Problem Relation Age of Onset Diabetes Father Surgical complications Neg Hx Anesthesia problems Neg Hx Heart disease Neg Hx Clotting disorder Neg Hx Deep vein thrombosis Neg Hx Pulmonary embolism Neg Hx Social History Socioeconomic History Marital status: Spouse name: Not on file Number of children: Not on file Years of education: Not on file Highest education level: Not on file Occupational History Not on file Social Needs Financial resource strain: Not on file Food insecurity Worry: Not on file Inability: Not on file Transportation needs Medical: Not on file Non-medical: Not on file Tobacco Use Smoking status: Never Smoker Smokeless tobacco: Never Used Substance and Sexual Activity Alcohol use: No Drug use: No Sexual activity: Not on file Lifestyle Physical activity Days per week: Not on file Minutes per session: Not on file Stress: Not on file Relationships Social connections Talks on phone: Not on file Gets together: Not on file Attends orthodox service: Not on file Active member of club or organization: Not on file Attends meetings of clubs or organizations: Not on file Relationship status: Not on file Other Topics Concern Not on file Social History Narrative Not on file Previous Medications Medication Sig ascorbic acid, vitamin C, (ascorbic acid with lakesha hips) 500 MG tablet Take 500 mg by mouth every other day. lvrpqnl-cwbsbslqtqzxo-lxybodii (EXCEDRIN MIGRAINE) 250-250-65 mg per tablet Take 1 tablet by mouth every 6 (six) hours as needed for pain. cyanocobalamin, vitamin B-12, (VITAMIN B-12 ORAL) Vitamin B12 1 tablet every day gabapentin (NEURONTIN) 300 MG capsule gabapentin 300 mg capsule glipiZIDE (GLUCOTROL) 10 MG tablet Take 10 mg by mouth every morning. insulin glargine (LANTUS) 100 unit/mL injection Inject 40 Units under the skin every morning. insulin glargine (LANTUS) 100 unit/mL injection Inject 30 Units under the skin nightly. insulin lispro (HumaLOG KwikPen Insulin) 100 unit/mL InPn 10 Units . LOSARTAN POTASSIUM (LOSARTAN ORAL) Take by mouth every morning. ROSUVASTATIN CALCIUM (CRESTOR ORAL) Take by mouth every evening. simvastatin (ZOCOR) 40 MG tablet 1 Unspecified daily . sitagliptan-metFORMIN (JANUMET) 50-1,000 mg per tablet Take 1 tablet by mouth 2 (two) times a day. tamsulosin (FLOMAX) 0.4 mg capsule tamsulosin 0.4 mg capsule [DISCONTINUED] aluminum chloride (DRYSOL) 20 % external solution Apply topically as needed. Allergies Allergen Reactions Dilantin Infatabs [Phenytoin] Rash Review of Systems Constitutional: Negative for chills and fever. HENT: Negative for nosebleeds. Respiratory: Negative for shortness of breath. Cardiovascular: Negative for chest pain. Gastrointestinal: Negative for abdominal pain, nausea and vomiting. Genitourinary: Negative for decreased urine volume. Musculoskeletal: Positive for gait problem (Notes wearing prescribed shoe to help with ambulate). Skin: Positive for color change and wound. Allergic/Immunologic: Immunocompromised state: History of diabetes mellitus. Neurological: Positive for numbness (Diabetic neuropathy). Negative for syncope. Psychiatric/Behavioral: Negative for confusion. Patient Vitals for the past 24 hrs: BP Temp Temp src Pulse Resp SpO2 Height Weight 07/26/20 0430 (!) 156/76 99.1 F (37.3 C) Oral 83 16 100 % 5' 8 90.7 kg (200 lb) Physical Exam Vitals signs and nursing note reviewed. Constitutional: General: He is not in acute distress. Appearance: He is well-developed. He is ill-appearing (chronically). He is not toxic-appearing or diaphoretic. Comments: No acute cardiopulmonary distress apparent. Examined sitting and laying in bed. Appears to be comfortable. Able to answer questions appropriately. Following commands. HENT: Head: Normocephalic and atraumatic. Right Ear: External ear normal. Left Ear: External ear normal. Eyes: General: No scleral icterus. Right eye: No discharge. Left eye: No discharge. Conjunctiva/sclera: Conjunctivae normal. Neck: Musculoskeletal: Normal range of motion. Comments: No meningeal signs. Cardiovascular: Rate and Rhythm: Normal rate and regular rhythm. Pulses: Dorsalis pedis pulses are 2+ on the right side and 2+ on the left side. Pulmonary: Effort: Pulmonary effort is normal. No respiratory distress. Breath sounds: No stridor. Abdominal: General: There is no distension. Palpations: Abdomen is soft. Tenderness: There is no abdominal tenderness. There is no guarding or rebound. Comments: Overweight/obese. Musculoskeletal: Normal range of motion. General: No tenderness or deformity. Skin: General: Skin is warm and dry. Findings: Erythema and wound present. No abrasion. Comments: Left foot erythema with it being noted initially that a medical wrap was in place which had eroded through the patient's skin causing a deep wound with foul smell and minimal drainage. To the plantar foot the patient does have a circular chronic appearing wound with no drainage. Pictures below. Neurological: Mental Status: He is alert and oriented to person, place, and time. Sensory: Sensory deficit (Lower extremity neuropathy reportedly at baseline) present. Motor: No abnormal muscle tone. Comments: Moving all extremities. Psychiatric: Mood and Affect: Affect is blunt. Speech: Speech normal. Behavior: Behavior normal. Laboratory & Radiographic Imaging (if done): Results for orders placed or performed during the hospital encounter of 07/26/20 COVID-19, Molecular Specimen: Nasopharyngeal; Swab Result Value Ref Range SARS-CoV-2 Not Detected Not Detected BMP Result Value Ref Range Sodium 131 (L) 135 - 145 mmol/L Potassium 3.8 3.5 - 5.1 mmol/L Chloride 97 (L) 98 - 108 mmol/L Bicarbonate 24 21 - 32 mmol/L Anion Gap 14 10 - 20 mmol/L Glucose 339 (H) 65 - 99 mg/dL BUN 21 8 - 25 mg/dL Creatinine 0.79 0.50 - 1.30 mg/dL eGFR 99 >=60 mL/min/1.73 m2 BUN/Creatinine Ratio 26.6 (H) 10.0 - 20.0 Calcium 9.0 8.4 - 10.2 mg/dL Lactic Acid, Plasma Result Value Ref Range Lactic Acid 0.9 0.6 - 2.0 mmol/L Sedimentation Rate Result Value Ref Range Sed Rate 103 (H) 0 - 20 mm/hr CRP, Inflammation Result Value Ref Range CRP(Inflammation) 41.3 (H) 0.0 - 10.0 mg/L CBC Auto Differential Result Value Ref Range WBC 8.39 4.50 - 11.00 K/mcL RBC 3.63 (L) 4.50 - 5.90 M/mcL Hemoglobin 10.9 (L) 13.5 - 17.5 g/dL Hematocrit 31.5 (L) 41.0 - 53.0 % MCV 86.8 80.0 - 100.0 fL MCH 30.0 26.0 - 34.0 pg MCHC 34.6 31.0 - 37.0 g/dL Platelets 286 150 - 400 K/mcL RDW - CV 11.6 11.6 - 14.8 % MPV 9.5 9.4 - 12.4 fL Neutrophils 64.0 % Lymphocytes 22.2 % Monocytes 11.2 % Eosinophils 2.0 % Basophils 0.2 % IG Percent 0.40 % Neutrophils Abs 5.37 1.70 - 7.00 K/mcL Lymphocytes Abs 1.86 0.90 - 4.00 K/mcL Monocytes Abs 0.94 (H) 0.30 - 0.90 K/mcL Eosinophils Abs 0.17 0.00 - 0.50 K/mcL Basophils Abs 0.02 0.00 - 0.30 K/mcL IG Absolute 0.03 0.00 - 0.30 K/mcL Nucleated RBC 0.0 % Nucleated RBC Abs 0.00 0.00 - 0.00 K/mcL XR Foot Left 3+ Views (Standard) Final Result 1. No acute bony abnormality of the foot or evidence of acute osteomyelitis. 2. Forefoot soft tissue swelling. Possible plantar soft tissue ulceration. Workstation ID: [id number] Procedures MDM The patient is a 59-year-old male presenting to the emergency department for chief complaint of left foot wound that has been ongoing for at least 1 month with the patient's most recent evaluation 1 month ago at which time his foot was wrapped up with the patient notes that he has difficulty with flexibility and has not been able to change the wound himself and noting that he has a financial constraints and has not gone back to the np. The patient notes that he had some bleeding when attempting to remove the wrap today further noting a foul smell leading to his presentation to the emergency department. It was noted that the patient's previous wrap had eroded through his skin causing a foot wound with surrounding erythema and significant foul smell as well as some mild drainage with a more chronic appearing wound on the plantar left foot. The patient was initiated on antibiotics with an x-ray not showing any evidence of acute osteomyelitis. However, given the patient's significant dorsal foot wound on physical examination with significantly foul smell and poor outpatient follow-up, decision was made to admit the patient for podiatry evaluation and further care. Clinical Impression: 1. Cellulitis, unspecified cellulitis site 2. Open wound of foot, unspecified laterality, initial encounter 3. Elevated blood pressure reading 4. H/O diabetes mellitus 5. Anemia, unspecified type 6. Hyponatremia 7. Hyperglycemia 8. Elevated C-reactive protein (CRP) ED Disposition ED Disposition Condition Comment Transfer to Another Facility Mikayla Pappas to be transferred to [facility]. Adalberto Espino DO 07/26/20 0649 Special isolation precautions are in place with signage outside this patient's room. This rn urgent care performs hand hygiene and enters the patient room wearing: ? gloves ? an appropriately fitting (N-95, PAPR, Aura) mask ? face shield ? protective gown to provide care. See documentation for the care provided. Pt c/o Lt foot wound that was treated by [facility] [employer] [facility] mid June. Pt sts he received wound care at that time and dressing was replaced. Pt sts he left the dressing in place this entire time and attempted to remove it tonight, but his foot started bleeding. Pt sts he doesn't have feeling in his feet d/t neuropathy. Pt denies denies attempting to soak his foot. Pt denies ability to properly take care of the his feet by himself d/t difficulty reaching them. Pt denies known fever/chills and doesn't know if the wound is draining. documented in this encounter Transport here for pt Care assumed at this time. A&Ox3. Skin w/d. Resp easy and regular. Denies any needs at present. Awaiting bed assignment Patient to and from bathroom several times without difficulty. Uses cane for assistance. [facility] EMERGENCY DEPARTMENT PCP - Greyson Dominguez MD Chief Complaint Patient presents with Hematuria MEDICAL DECISION MAKING Patient with gross hematuria. Urine specimen visualized and is grossly bloody though no clots appreciated. Urinalysis demonstrates large blood with protein and glucose but no white blood cells or visible bacteria to suggest associated infection. He is not significantly anemic at this time. Renal function is near his baseline. CT demonstrates extensive bladder wall thickening diffusely with associated bilateral hydroureteronephrosis without any nephrolithiasis. Because of gross hematuria and significant abnormalities on scan as well as his current hesitancy, I am concerned the patient is at high risk of outflow obstruction. 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 The urethra is positioned on the distal ventral aspect of the penis and is very small. Even a very small straight cath is unable to be placed. The only three- way catheters available at this facility are 22 [place] and are much too large to even attempt for CBI. I do feel that the patient necessitates urgent urologic evaluation. I feel he would be best served by hospitalization to monitor for acute urinary retention. Currently postvoid residual is only 139 but symptoms are certainly worrisome and he is at high risk due to very small urethral opening. Requesting transfer and admission to [facility] where patient receives majority of his care. Of note, patient states that urethral abnormality has been present since . 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 He does not have any further information and is unsure of any prior surgeries as an . CLINICAL IMPRESSION 1. Hematuria, gross 2. Bladder wall thickening 3. Hydroureteronephrosis 4. Penile hypospadias ED Disposition ED Disposition Condition Comment Transfer to Another Facility Mikayla Pappas to be transferred to [place]. Follow-up Information Follow-up information has not been specified. Contact information for after-discharge care Follow-up information has not been specified. . Results for orders placed or performed during the hospital encounter of 08/14/20 Urinalysis Result Value Ref Range Color, Urine Red (A) Colorless, Yellow Clarity, Urine Cloudy (A) Clear Specific [place] 1.020 1.005 - 1.025 pH, Urine 8.0 (H) 5.0 - 7.0 Protein, Urine >=500 (A) Negative mg/dL Glucose, Urine 150 (A) Negative mg/dL Ketones, Urine Negative Negative mg/dL Bilirubin, Urine Negative Negative Urobilinogen, Urine <2.0 <2.0 mg/dL Blood, Urine Large (A) Negative Nitrite, Urine Negative Negative Leukocyte Esterase, Urine Negative Negative WBCs, Urine 4 0 - 5 /hpf RBCs, Urine >180 (H) 0 - 3 /hpf Bacteria, Urine None Seen None Seen /hpf BMP Result Value Ref Range Sodium 139 135 - 145 mmol/L Potassium 3.8 3.5 - 5.1 mmol/L Chloride 104 98 - 108 mmol/L Bicarbonate 26 21 - 32 mmol/L Anion Gap 13 10 - 20 mmol/L Glucose 230 (H) 65 - 99 mg/dL BUN 21 8 - 25 mg/dL Creatinine 1.05 0.50 - 1.30 mg/dL eGFR 77 >=60 mL/min/1.73 m2 BUN/Creatinine Ratio 20.0 10.0 - 20.0 Calcium 9.2 8.4 - 10.2 mg/dL CBC Auto Differential Result Value Ref Range WBC 8.98 4.50 - 11.00 K/mcL RBC 3.72 (L) 4.50 - 5.90 M/mcL Hemoglobin 11.4 (L) 13.5 - 17.5 g/dL Hematocrit 33.4 (L) 41.0 - 53.0 % MCV 89.8 80.0 - 100.0 fL MCH 30.6 26.0 - 34.0 pg MCHC 34.1 31.0 - 37.0 g/dL Platelets 296 150 - 400 K/mcL RDW - CV 12.5 11.6 - 14.8 % MPV 8.6 (L) 9.4 - 12.4 fL Neutrophils 63.4 % Lymphocytes 22.3 % Monocytes 11.1 % Eosinophils 2.6 % Basophils 0.4 % IG Percent 0.20 % Neutrophils Abs 5.69 1.70 - 7.00 K/mcL Lymphocytes Abs 2.00 0.90 - 4.00 K/mcL Monocytes Abs 1.00 (H) 0.30 - 0.90 K/mcL Eosinophils Abs 0.23 0.00 - 0.50 K/mcL Basophils Abs 0.04 0.00 - 0.30 K/mcL IG Absolute 0.02 0.00 - 0.30 K/mcL Nucleated RBC 0.0 % Nucleated RBC Abs 0.00 0.00 - 0.00 K/mcL Radiographic Imaging (if any) During ED Visit CT Abdomen Pelvis Without Contrast Final Result 1. Extensive urinary bladder wall thickening, which could be infectious or due to underlying neoplasm. Clinical correlation is recommended. There is associated bilateral hydroureteronephrosis. No nephrolithiasis. 2. Small right pleural effusion. Workstation ID: [id number] Medications Ordered/Given During ED Visit Medications sodium chloride (PF) (NS) flush 5 mL (has no administration in time range) And sodium chloride 0.9% (NS) (has no administration in time range) sodium chloride (NS) 0.9 % bladder irrigation solution 3,000 mL (has no administration in time range) Procedures HPI The history was obtained from the patient. Mikayla is a 60 y.o. male who presents with a chief complaint of Hematuria. Presents to the emergency department with 2 days of gross hematuria associated with urgency, frequency and hesitancy. Patient reports that yesterday his urine was pink-tinged. By today, it become grossly bloody. He denies noting passage of any clots. States that he feels that he is rushing to the bathroom to void but is only able to void a small amount though he has sensation that he needs to continue to empty his bladder. He does report some burning to the urethra as well. He denies any scrotal pain. He has some mild suprapubic discomfort but denies any back or flank pain. Patient is not on any blood thinners. He has never had anything similar in the past. There is a family history of nephrolithiasis but no personal history. Patient denies any associated fevers. He does have a history of poorly controlled diabetes and is currently on antibiotics for osteomyelitis of the foot. Review of Systems Review of Systems Constitutional: Negative for fever. HENT: Negative for trouble swallowing. Eyes: Negative for redness. Respiratory: Negative for shortness of breath. Cardiovascular: Negative for chest pain. Gastrointestinal: Negative for abdominal pain. Genitourinary: Positive for difficulty urinating, dysuria, frequency, hematuria, penile pain and urgency. Negative for discharge, flank pain, genital sores, penile swelling, scrotal swelling and testicular pain. Musculoskeletal: Negative for gait problem. Skin: Positive for wound. Neurological: Negative for headaches. Hematological: Does not bruise/bleed easily. All other systems reviewed and are negative. Physical Exam Vital Signs During ED Visit (as charted by nursing) Vitals: 08/14/20 2230 BP: (!) 153/73 BP Location: Right arm Patient Position: Sitting Pulse: 90 Resp: 16 Temp: 98.9 F (37.2 C) TempSrc: Oral SpO2: 97% Weight: 88.9 kg (196 lb) Height: 5' 8 Physical Exam Vitals signs and nursing note reviewed. Constitutional: General: He is not in acute distress. Appearance: He is well-developed. He is not diaphoretic. HENT: Head: Normocephalic and atraumatic. Right Ear: External ear normal. Left Ear: External ear normal. Nose: Nose normal. Eyes: Conjunctiva/sclera: Conjunctivae normal. Neck: Trachea: No tracheal deviation. Cardiovascular: Rate and Rhythm: Normal rate and regular rhythm. Pulmonary: Effort: Pulmonary effort is normal. No respiratory distress. Abdominal: General: There is no distension. Palpations: There is no mass. Tenderness: There is abdominal tenderness in the suprapubic area. There is no right CVA tenderness, left CVA tenderness, guarding or rebound. Musculoskeletal: Comments: No gross deformities Skin: Comments: Dressing to left foot clean dry and intact, was not removed Neurological: Mental Status: He is alert. 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, no current bobbin presser f/u Past Surgical History Past Surgical History: Procedure Laterality Date AMPUTATION FOOT Left 08/05/2020 Procedure: POSSIBLE AMPUTATION; Surgeon: Jet Calvillo DPM; Location: [facility] OR; Service: Podiatry AMPUTATION TOE(S) Right 08/03/2016 Procedure: RIGHT 3RD DIGIT AMPUTATION ; Surgeon: Jet Calvillo DPM; Location: [facility] OR; Service: CARDIAC CATHETERIZATION ablation for WPW FOOT SURGERY Right 2nd toe partial amputation INCISION AND DRAINAGE FOOT AND ANKLE Left 07/29/2020 Procedure: LEFT FOOT ULCER INCISION AND DRAINAGE LEFT FOOT BONE DEBRIDEMENT W/ BIOPSY; Surgeon: Jet Calvillo DPM; Location: [facility] OR; Service: Podiatry INCISION AND DRAINAGE FOOT AND ANKLE Left 08/05/2020 Procedure: LEFT FOOT ULCER DEBRIDEMENT; Surgeon: Jet Calvillo DPM; Location: [facility] OR; Service: Podiatry Family History Family History Problem Relation Age of Onset Diabetes Father Surgical complications Neg Hx Anesthesia problems Neg Hx Heart disease Neg Hx Clotting disorder Neg Hx Deep vein thrombosis Neg Hx Pulmonary embolism Neg Hx Social History Social History Socioeconomic History Marital status: Spouse name: Not on file Number of children: Not on file Years of education: Not on file Highest education level: Not on file Occupational History Not on file Social Needs Financial resource strain: Not on file Food insecurity Worry: Not on file Inability: Not on file Transportation needs Medical: Not on file Non-medical: Not on file Tobacco Use Smoking status: Never Smoker Smokeless tobacco: Never Used Substance and Sexual Activity Alcohol use: No Drug use: No Sexual activity: Not on file Lifestyle Physical activity Days per week: Not on file Minutes per session: Not on file Stress: Not on file Relationships Social connections Talks on phone: Not on file Gets together: Not on file Attends orthodox service: Not on file Active member of club or organization: Not on file Attends meetings of clubs or organizations: Not on file Relationship status: Not on file Other Topics Concern Not on file Social History Narrative Not on file Allergies Allergies Allergen Reactions Dilantin Infatabs [Phenytoin] Rash Medications Previous Medications Medication Sig alcohol swabs PadM Check your sugars up to 4 times a day . amLODIPine (NORVASC) 10 MG tablet Take 1 (one) tablet (10 mg total) by mouth daily Start: 08/07/20. ascorbic acid, vitamin C, (ascorbic acid with lakesha hips) 500 MG tablet Take 500 mg by mouth daily . nvemnjr-ddgblseiaepul-bcikhpcf (EXCEDRIN MIGRAINE) 250-250-65 mg per tablet Take 1 tablet by mouth every 6 (six) hours as needed for pain. atorvastatin (LIPITOR) 20 MG tablet Take 20 mg by mouth daily. blood sugar diagnostic strips Check your sugars up to 4 times a day . blood-glucose meter Misc Check your sugars up to 4 times a day . cephALEXin (KEFLEX) 500 MG capsule Take 1 (one) capsule (500 mg total) by mouth 4 (four) times a day . cyanocobalamin, vitamin B-12, (VITAMIN B-12 ORAL) Take 1 tablet by mouth daily . gabapentin (NEURONTIN) 300 MG capsule Take 1 (one) capsule (300 mg total) by mouth every 8 (eight) hours (Days supply per fill: 30) . insulin glargine (Basaglar KwikPen U-100 Insulin) 100 unit/mL (3 mL) InPn Inject 50 (fifty) Units under the skin nightly . insulin lispro (HumaLOG KwikPen Insulin) 100 unit/mL InPn Inject 5-7 Units under the skin every evening . lancets Misc Check your sugars up to 4 times a day . pen needle, diabetic 32 gauge x 5/32 Ndle Change pen needles daily as needed up to 4 times. . rosuvastatin (Crestor) 40 MG tablet Take 1 (one) tablet (40 mg total) by mouth every evening . senna-docusate (SENNA-S) 8.6-50 mg Take 1 (one) tablet by mouth 2 (two) times a day . (Please note that portions of this note may have been completed with a voice recognition software -- [employer]on by Jordyn.) Eden Troy MD 08/15/20 0056 Attempted to insert 3-way 22FR todd. Patient has a defect on his penis that has caused the urethral opening to be very small. Todd insertion unsuccessful by [address] Troy aware. Ordered to bladder scan patient, if >300ml then straight cath. Pt reports he is having blood in his urine and pain in his penis. Symptoms started yesterday but is worse today. Pt is currently on keflex for a foot infection. documented in this encounter Pt educated and provided with demonstration on how to care for todd bag at home. ED PROVIDER NOTE [facility] EMERGENCY DEPARTMENT NAME: Mikayla Pappas AGE: 60 y.o. : 1960 VISIT DATE: 10/17/2020 CSN: [id number] PCP: Greyson Dominguez MD Chief Complaint Patient presents with Urinary Frequency Back Pain HPI This is a 60-year-old male that comes in with low back pain as well as bilateral flank pain patient has had urinary frequency and urgency. Always feels like he needs to evacuate his bladder. Patient is also had urinary incontinence over the last month and 1/2 to 2 months. Had a similar problem early August and was having severe hematuria with multiple attempts to pass a Todd catheter patient has unusual anatomy however and was transferred to [facility] ended up with an exam under anesthesia and bladder ureteral dilatation. No fever night sweats or chills. There is no chest pain or shortness of breath. There is no headache neck pain or stiffness. No cough, sore throat, myalgias or arthralgias. No loss of sensation of taste or smell. Past Medical History: Diagnosis Date Diabetes mellitus, type 2 (HCC) no AC at home, on insulin for 3 years Diabetic neuropathy (HCC) GERD (gastroesophageal reflux disease) no current meds History of cardiac cath 1990 for RFA due to WPW History of depression no current meds Hyperlipidemia Hypertension Obesity Open wound right 3rd toe Seizures (HCC) questionable when a child, no recurrence Sleep apnea, obstructive partial compliance with CPAP WPW (Ibikl-Fpzpdxnbt-Gbpdq syndrome) 1990 s/p RFA in 1990, no current bobbin presser f/u Past Surgical History: Procedure Laterality Date AMPUTATION FOOT Left 08/05/2020 Procedure: POSSIBLE AMPUTATION; Surgeon: Jet Calvillo DPM; Location: [facility] OR; Service: Podiatry AMPUTATION TOE(S) Right 08/03/2016 Procedure: RIGHT 3RD DIGIT AMPUTATION ; Surgeon: Jet Calvillo DPM; Location: [facility] OR; Service: CARDIAC CATHETERIZATION ablation for WPW CATHETER INSERTION SUPRAPUBIC N/A 08/16/2020 Procedure: CATHETER PLACEMENT OVER GUIDE; Surgeon: Paul Kim MD; [place] [facility] [place]; Service: Urology CYSTO DIRECT VISION INTERNAL URETHROTOMY N/A 08/16/2020 Procedure: CYSTOSCOPY URETERAL DILATION POSSIBLE DIRECT VISION INTERNAL URETHROTOMY; Surgeon: Paul Kim MD; [place] [facility] [place]; Service: Urology FOOT SURGERY Right 2nd toe partial amputation INCISION AND DRAINAGE FOOT AND ANKLE Left 07/29/2020 Procedure: LEFT FOOT ULCER INCISION AND DRAINAGE LEFT FOOT BONE DEBRIDEMENT W/ BIOPSY; Surgeon: Jet Calvillo DPM; Location: [facility] OR; Service: Podiatry INCISION AND DRAINAGE FOOT AND ANKLE Left 08/05/2020 Procedure: LEFT FOOT ULCER DEBRIDEMENT; Surgeon: Jet Calvillo DPM; Location: [facility] OR; Service: Podiatry Family History Problem Relation Age of Onset Diabetes Father Surgical complications Neg Hx Anesthesia problems Neg Hx Heart disease Neg Hx Clotting disorder Neg Hx Deep vein thrombosis Neg Hx Pulmonary embolism Neg Hx Social History Socioeconomic History Marital status: Spouse name: Not on file Number of children: Not on file Years of education: Not on file Highest education level: Not on file Occupational History Not on file Social Needs Financial resource strain: Not on file Food insecurity Worry: Not on file Inability: Not on file Transportation needs Medical: Not on file Non-medical: Not on file Tobacco Use Smoking status: Never Smoker Smokeless tobacco: Never Used Substance and Sexual Activity Alcohol use: No Drug use: No Sexual activity: Not on file Lifestyle Physical activity Days per week: Not on file Minutes per session: Not on file Stress: Not on file Relationships Social connections Talks on phone: Not on file Gets together: Not on file Attends orthodox service: Not on file Active member of club or organization: Not on file Attends meetings of clubs or organizations: Not on file Relationship status: Not on file Other Topics Concern Not on file Social History Narrative Not on file Previous Medications Medication Sig alcohol swabs PadM Check your sugars up to 4 times a day . amLODIPine (NORVASC) 10 MG tablet Take 1 (one) tablet (10 mg total) by mouth daily Start: 08/07/20. ascorbic acid, vitamin C, (ascorbic acid with lakesha hips) 500 MG tablet Take 500 mg by mouth daily . ntiyuev-yoayymqoscfuc-mpzquuts (EXCEDRIN MIGRAINE) 250-250-65 mg per tablet Take 1 tablet by mouth every 6 (six) hours as needed for pain. blood sugar diagnostic strips Check your sugars up to 4 times a day . blood-glucose meter Misc Check your sugars up to 4 times a day . cephALEXin (KEFLEX) 500 MG capsule 1 capsule . cyanocobalamin, vitamin B-12, (VITAMIN B-12 ORAL) Take 1 tablet by mouth daily . doxazosin (CARDURA) 4 MG tablet gabapentin (NEURONTIN) 300 MG capsule Take 1 (one) capsule (300 mg total) by mouth every 8 (eight) hours (Days supply per fill: 30) . glipiZIDE (GLUCOTROL XL) 10 MG 24 hr tablet Take 10 mg by mouth daily . HYDROcodone-acetaminophen (NORCO) 5-325 mg per tablet 1 Unspecified daily . insulin glargine (Basaglar KwikPen U-100 Insulin) 100 unit/mL (3 mL) InPn Inject 50 (fifty) Units under the skin nightly . insulin lispro (HumaLOG KwikPen Insulin) 100 unit/mL InPn For blood sugar 141- 180 give 2 units subcutaneoulsy, for 181-220 give 4 units, for 221-260 give 6 units, and for 261-300 give 8 units. . lancets [facility] Check your sugars up to 4 times a day . losartan (COZAAR) 25 MG tablet 1 Unspecified daily . oxybutynin (DITROPAN-XL) 10 MG 24 hr tablet Take 1 (one) tablet (10 mg total) by mouth daily . pen needle, diabetic 32 gauge x 5/32 Ndle Change pen needles daily as needed up to 4 times. . rosuvastatin (Crestor) 40 MG tablet Take 1 (one) tablet (40 mg total) by mouth every evening . sitagliptan-metFORMIN (JANUMET) 50-1,000 mg per tablet Take 1 tablet by mouth daily . Allergies Allergen Reactions Dilantin Infatabs [Phenytoin] Rash Review of Systems Constitutional: Negative for chills, fatigue and fever. HENT: Negative for mouth sores, postnasal drip and sinus pain. Eyes: Negative for redness. Respiratory: Negative for cough and shortness of breath. Cardiovascular: Negative for chest pain. Gastrointestinal: Negative for abdominal pain. Genitourinary: Positive for dysuria, frequency and urgency. Musculoskeletal: Negative for arthralgias and joint swelling. Neurological: Negative for light-headedness and headaches. Psychiatric/Behavioral: Negative for agitation and decreased concentration. Patient Vitals for the past 24 hrs: BP Temp Temp src Pulse Resp SpO2 Height Weight 10/17/20 0302 97 % 10/17/20 0300 (!) 165/76 98.1 F (36.7 C) Oral 71 16 97 % 5' 8 86.2 kg (190 lb) Physical Exam Vitals signs and nursing note reviewed. Constitutional: Appearance: Normal appearance. HENT: Head: Normocephalic and atraumatic. Nose: Nose normal. Eyes: Pupils: Pupils are equal, round, and reactive to light. Neck: Musculoskeletal: Neck supple. Cardiovascular: Rate and Rhythm: Normal rate. Pulses: Normal pulses. Heart sounds: Normal heart sounds. Pulmonary: Effort: Pulmonary effort is normal. Breath sounds: Normal breath sounds. Abdominal: Palpations: Abdomen is soft. Musculoskeletal: Normal range of motion. Skin: General: Skin is warm and dry. Capillary Refill: Capillary refill takes less than 2 seconds. Neurological: Mental Status: He is alert and oriented to person, place, and time. Laboratory & Radiographic Imaging (if done): Results for orders placed or performed during the hospital encounter of 10/17/20 BMP Result Value Ref Range Sodium 138 135 - 145 mmol/L Potassium 3.6 3.5 - 5.1 mmol/L Chloride 99 98 - 108 mmol/L Bicarbonate 28 21 - 32 mmol/L Anion Gap 15 10 - 20 mmol/L Glucose 240 (H) 65 - 99 mg/dL BUN 21 8 - 25 mg/dL Creatinine 1.2 0.5 - 1.3 mg/dL Calcium CBC Auto Differential Result Value Ref Range WBC 6.93 4.50 - 11.00 K/mcL RBC 4.01 (L) 4.50 - 5.90 M/mcL Hemoglobin 11.8 (L) 13.5 - 17.5 g/dL Hematocrit 34.6 (L) 41.0 - 53.0 % MCV 86.3 80.0 - 100.0 fL MCH 29.4 26.0 - 34.0 pg MCHC 34.1 31.0 - 37.0 g/dL Platelets 227 150 - 400 K/mcL RDW - CV 12.5 11.6 - 14.8 % MPV 9.3 (L) 9.4 - 12.4 fL Neutrophils 56.1 % Lymphocytes 29.9 % Monocytes 11.3 % Eosinophils 2.5 % Basophils 0.1 % IG Percent 0.10 % Neutrophils Abs 3.89 1.70 - 7.00 K/mcL Lymphocytes Abs 2.07 0.90 - 4.00 K/mcL Monocytes Abs 0.78 0.30 - 0.90 K/mcL Eosinophils Abs 0.17 0.00 - 0.50 K/mcL Basophils Abs 0.01 0.00 - 0.30 K/mcL IG Absolute 0.01 0.00 - 0.30 K/mcL Nucleated RBC 0.0 % Nucleated RBC Abs 0.00 0.00 - 0.00 K/mcL CT Kidney Stone Final Result Markedly distended bladder and moderate bilateral hydroureteronephrosis. Consider bladder outlet obstruction. Workstation ID: [id number] Procedures MDM . Clinical Impression: No diagnosis found. ED Disposition ED Disposition Condition Comment Transfer to Another Facility Mikayla Pappas [place] [facility] [place] Follow-up Information Follow-up information has not been specified. Contact information for after-discharge care Follow-up information has not been specified. Franco Gracia MD 10/17/[address] Pt to CT. Pt presents via medic 611 with c/o lower back pain and urinary frequency/urgency x2 days. Pt states he is incontinent of urine at home. He denies blood in his urine, denies fevers. Reports yesterday he had one episode of vomiting and diarrhea. Reports he has constant pain in his bladder . Pt states he called the on-call doctor in his primary practice and was instructed to come to the ED. Pt was given 30mg IV toradol en route. Pt reports taking neurontin at home around 1am [employer]. Bed: 02 Expected date: Expected time: Means of arrival: Comments: Medic 611 documented in this encounter ROUNDING ASSESSMENT: ACTIVITY: Pt resting quietly on cart; Patent airway; Spontaneous breathing with regular respirations. AVPU - Alert; Skin - warm and dry; NEEDS/CONCERNS - None voiced; SAFETY: Cart in low position, side rails x2 for safety, call light within reach. PT updated with plan of care. [facility] ED Resident Note: NAME: Mikayla Pappas 60 y.o. CSN: [id number] PCP: Greyson Dominguez MD History: Chief Complaint: Hematuria HPI: The history was obtained from the patient. Mikayla is a 60 y.o. male with past medical history of DM, HLD, HTN, ureteral stricture s/p dilation, urinary retention who presents with a chief complaint of generalized weakness, chills and fall occurring prior to arrival. He was seen at outside hospital emergency department 2 days ago for urinary retention. CT imaging at that time was notable for bilateral hydronephrosis. He states the Todd was placed at that time but it did fall out and as such he did follow-up with his urologist this morning and Todd was replaced. He states that their office did refer him to the emergency department because they said he looked unwell. Patient states he decided to go home instead, however, once he was home he states that he felt very weak particularly in the legs and was having increased difficulty ambulating as they put a long Todd bag on that was dangling at his feet. He states he fell in the bathroom trying to sit down on the toilet and landed on his bottom. He denies loss of consciousness and does not believe he hit his that head. He is not on any blood thinning medications, aspirin or Plavix. He denies headache or neck pain currently. He also notes 1 week of postnasal drip with persistent coughing. No known sick contacts. He has had nausea and vomiting today as well as some lower abdominal pain. No change in bowel movements. 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 presser f/u PMSx: Past Surgical History: Procedure Laterality Date AMPUTATION FOOT Left 08/05/2020 Procedure: POSSIBLE AMPUTATION; Surgeon: Jet Calvillo DPM; Location: [facility] OR; Service: Podiatry AMPUTATION TOE(S) Right 08/03/2016 Procedure: RIGHT 3RD DIGIT AMPUTATION ; Surgeon: Jet Calvillo DPM; Location: [facility] OR; Service: CARDIAC CATHETERIZATION ablation for WPW CATHETER INSERTION SUPRAPUBIC N/A 08/16/2020 Procedure: CATHETER PLACEMENT OVER GUIDE; Surgeon: Paul Kim MD; [place] [facility] [place] Service: Urology CYSTO DIRECT VISION INTERNAL URETHROTOMY N/A 08/16/2020 Procedure: CYSTOSCOPY URETERAL DILATION POSSIBLE DIRECT VISION INTERNAL URETHROTOMY; Surgeon: Paul Kim MD; [place] [facility] [place]; Service: Urology FOOT SURGERY Right 2nd toe partial amputation INCISION AND DRAINAGE FOOT AND ANKLE Left 07/29/2020 Procedure: LEFT FOOT ULCER INCISION AND DRAINAGE LEFT FOOT BONE DEBRIDEMENT W/ BIOPSY; Surgeon: Jet Calvillo DPM; Location: [facility] OR; Service: Podiatry INCISION AND DRAINAGE FOOT AND ANKLE Left 08/05/2020 Procedure: LEFT FOOT ULCER DEBRIDEMENT; Surgeon: Jet Calvillo DPM; Location: [facility]; Service: Podiatry FAM. Hx: Family History Problem Relation Age of Onset Diabetes Father Surgical complications Neg Hx Anesthesia problems Neg Hx Heart disease Neg Hx Clotting disorder Neg Hx Deep vein thrombosis Neg Hx Pulmonary embolism Neg Hx SOC. Hx: Social History Socioeconomic History Marital status: Spouse name: Not on file Number of children: Not on file Years of education: Not on file Highest education level: Not on file Occupational History Not on file Social Needs Financial resource strain: Not on file Food insecurity Worry: Not on file Inability: Not on file Transportation needs Medical: Not on file Non-medical: Not on file Tobacco Use Smoking status: Never Smoker Smokeless tobacco: Never Used Substance and Sexual Activity Alcohol use: No Drug use: No Sexual activity: Not on file Lifestyle Physical activity Days per week: Not on file Minutes per session: Not on file Stress: Not on file Relationships Social connections Talks on phone: Not on file Gets together: Not on file Attends orthodox service: Not on file Active member of club or organization: Not on file Attends meetings of clubs or organizations: Not on file Relationship status: Not on file Other Topics Concern Not on file Social History Narrative Not on file MEDs: Previous Medications Medication Sig losartan (COZAAR) 25 MG tablet Take 25 mg by mouth daily . oxybutynin (DITROPAN-XL) 10 MG 24 hr tablet Take 1 (one) tablet (10 mg total) by mouth daily . phenazopyridine (PYRIDIUM) 200 MG tablet Take 1 (one) tablet (200 mg total) by mouth 3 (three) times a day for 3 days . alcohol swabs PadM Check your sugars up to 4 times a day . amLODIPine (NORVASC) 10 MG tablet Take 1 (one) tablet (10 mg total) by mouth daily Start: 08/07/20. ascorbic acid, vitamin C, (ascorbic acid with lakesha hips) 500 MG tablet Take 500 mg by mouth daily . tjjsovh-bkepxedfleril-dotbpega (EXCEDRIN MIGRAINE) 250-250-65 mg per tablet Take 1 tablet by mouth every 6 (six) hours as needed for pain. blood sugar diagnostic strips Check your sugars up to 4 times a day . blood-glucose meter Mis Check your sugars up to 4 times a day . cephALEXin (KEFLEX) 500 MG capsule Take 1 (one) capsule (500 mg total) by mouth 3 (three) times a day for 7 days . cyanocobalamin, vitamin B-12, (VITAMIN B-12 ORAL) Take 1 tablet by mouth daily . doxazosin (CARDURA) 4 MG tablet Take 4 mg by mouth daily . gabapentin (NEURONTIN) 300 MG capsule Take 1 (one) capsule (300 mg total) by mouth every 8 (eight) hours (Days supply per fill: 30) . glipiZIDE (GLUCOTROL XL) 10 MG 24 hr tablet Take 10 mg by mouth daily . insulin glargine (Basaglar KwikPen U-100 Insulin) 100 unit/mL (3 mL) InPn Inject 50 (fifty) Units under the skin nightly . insulin lispro (HumaLOG KwikPen Insulin) 100 unit/mL InPn For blood sugar 141- 180 give 2 units subcutaneoulsy, for 181-220 give 4 units, for 221-260 give 6 units, and for 261-300 give 8 units. . lancets Mis Check your sugars up to 4 times a day . pen needle, diabetic 32 gauge x 32 Ndle Change pen needles daily as needed up to 4 times. . rosuvastatin (Crestor) 40 MG tablet Take 1 (one) tablet (40 mg total) by mouth every evening . sitagliptan-metFORMIN (JANUMET) 50-1,000 mg per tablet Take 1 tablet by mouth daily . ALL: Allergies Allergen Reactions Dilantin Infatabs [Phenytoin] Rash ROS: Review of Systems Positives and pertinent negatives as per HPI. All other systems were reviewed and are negative. Physical Exam: Patient Vitals for the past 24 hrs: BP Temp Pulse Resp SpO2 10/19/20 1602 (!) 146/67 100.1 F (37.8 C) (!) 107 16 97 % 10/19/20 1559 (!) 146/67 96 % Physical Exam Vitals signs and nursing note reviewed. Constitutional: Appearance: He is well-developed. Comments: Rigors present HENT: Head: Normocephalic and atraumatic. Right Ear: External ear normal. Left Ear: External ear normal. Mouth/Throat: Mouth: Mucous membranes are dry. Eyes: Pupils: Pupils are equal, round, and reactive to light. Neck: Musculoskeletal: Normal range of motion. Cardiovascular: Rate and Rhythm: Normal rate and regular rhythm. Heart sounds: Normal heart sounds. Pulmonary: Effort: Pulmonary effort is normal. Breath sounds: Normal breath sounds. Abdominal: Palpations: Abdomen is soft. Tenderness: There is abdominal tenderness ( suprapubic). There is right CVA tenderness and left CVA tenderness. Genitourinary: Comments: Todd catheter is in place with gross hematuria in Todd bag but does appear to be actively draining. Musculoskeletal: Normal range of motion. Skin: General: Skin is warm and dry. Neurological: General: No focal deficit present. Mental Status: He is alert and oriented to person, place, and time. Cranial Nerves: No cranial nerve deficit. Sensory: No sensory deficit. Motor: No weakness. Laboratory & Radiological Imaging (if done): Labs Reviewed URINALYSIS - Abnormal; Notable for the following components: Result Value Color, Urine Red (*) Clarity, Urine Cloudy (*) Protein, Urine 100 (*) Glucose, Urine 150 (*) Blood, Urine Large (*) Leukocyte Esterase, Urine Small (*) WBCs, Urine >180 (*) RBCs, Urine >180 (*) Bacteria, Urine Many (*) All other components within normal limits Narrative: Microscopic examination is performed on all urinalysis samples and only positive findings are reported. The test for blood on the chemical analytic portion of urinalysis may also be positive due to hemoglobinuria and myoglobinuria and if red blood cells are present they are quantified by microscopic examination. COMPREHENSIVE METABOLIC PANEL - Abnormal; Notable for the following components: Glucose 267 (*) All other components within normal limits Narrative: The eGFR should be used for monitoring renal function only and not for medication dosing. CBC WITH AUTO DIFFERENTIAL - Abnormal; Notable for the following components: WBC 12.87 (*) RBC 4.42 (*) Hemoglobin 13.0 (*) Hematocrit 38.1 (*) Neutrophils Abs 11.20 (*) Lymphocytes Abs 0.68 (*) All other components within normal limits LACTIC ACID, PLASMA - Normal URINE AEROBIC CULTURE BLOOD CULTURE AEROBIC/ANAEROBIC BLOOD CULTURE AEROBIC/ANAEROBIC CBC AND DIFFERENTIAL Narrative: The following orders were created for panel order CBC w/ Diff. Procedure Abnormality Status --------- ------ CBC Auto Differential[[id number]] Abnormal Final result Please view results for these tests on the individual orders. XR Chest 1 View Final Result No significant findings in the chest. Workstation ID: [id number] ED Medications (if given): Medications sodium chloride (PF) (NS) flush 5 mL (has no administration in time range) And sodium chloride 0.9% (NS) (has no administration in time range) lactated ringers bolus 2,052 mL (2,052 mL Intravenous New Bag 10/19/20 1654) acetaminophen (TYLENOL) tablet 975 mg (975 mg Oral Given 10/19/20 1643) ceFAZolin (ANCEF) IVPB 2 g (premix) (2,000 mg Intravenous New Bag 10/19/20 1653) ED Course / Medical Decision Making: Mikayla Pappas is a 60 y.o. male with a past medical history of DM, HLD, HTN, ureteral stricture s/p dilation, urinary retention who presents with a chief complaint of generalized weakness, chills and fall occurring prior to arrival. Primary current concern at this time is possible early urosepsis in the setting of indwelling Todd catheter. He is mildly tachycardic and does appear to have subclinical fever. As such, blood cultures were drawn, 30 cc/kg bolus of LR and lactate drawn. He will be treated empirically with Ancef for likely urinary source. Review of urine cultures does not show previous growth. Though he does mention he has had 1 week of cough and congestion as well, Covid was -2 days ago so will not repeat at this time. ED Course as of Oct 19 1726SatOct 19, 2020 1636 Stable. HGB(!): 13.0 [HL] 1637 Likely 2/2 to underlying infection WBC(!): 12.87 [HL] 1637 C/w hx of DM. Bicarb of 26, AG 11. No concern for DKA at this time. GLUCOSE(!): 267 [HL] 1650 Large amount of blood, gross hematuria on exam. Many bacteria present despite todd change this AM at urology office. Nitrite negative. Treated with Ancef with urine cultures pending. Urinalysis(!) [HL] 1653 Lactic Acid: 1.5 [HL] ED Course User Index [HL] Olga Lidia Jones DO Patient will require hospitalization due to his generalized weakness secondary to acute infection. Mikayla Pappas's 's case was discussed with my attending physician who agrees with their ED management and final disposition. They independently evaluated the patient. Please refer to their attestation to this encounter for additional information. Clinical Impression: 1. Pyelonephritis 2. Hematuria, gross 3. Todd catheter in place prior to arrival 4. Weakness generalized Disposition: Patient is being hospitalize to med/surg (regular floor) Olga Lidia Jones DO EM Resident Physician [facility] Emergency Department (Please note that portions of this note have been completed with a voice recognition software. Efforts were made to correct any errors, but occasionally words are mis-transcribed.) Olga Lidia Jones DO Resident 10/19/201725 Patient arrives via EMS with c/o hematuria. Patient has a chronic todd. Patient was recently at urologist for urinary retentionThe urologist removed approx. 700 mL of fluid patient also c/o weakness, cough and fatigue. Bed: 58 Expected date: Expected time: Means of arrival: Comments: M611, hematuria, Dr. Troy documented in this encounter Nolan Messina V, MONTSERRAT - 08/05/2020 9:55 AM EDFlash Dsouza, MON[place]ERRAT - 08/05/2020 6:23 AM Flash Aguirre, HAYDENM - 07/29/2020 10:27 AM EDTGene Mirta Rae, [facility] - 07/29/2020 6:25 AM EDT H&P Notes (unrecognized sect ion and content) INTERVAL HISTORY AND PHYSICAL Patient Name: Mikayla Pappas Admit Date: MR #: [id number] : 1960 The H&P has been reviewed and the patient has been examined. I concur with the findings of the H&P. There are no significant changes. It is appropriate to proceed with the planned procedure. Nolan Dea MONTSERRAT Messina 08/05/2020 9:55 AM INTERVAL HISTORY AND PHYSICAL Patient Name: Mikayla Pappas Admit Date: MR #: [id number] : 1960 The H&P has been reviewed and the patient has been examined. I concur with the findings of the H&P. There are no significant changes. It is appropriate to proceed with the planned procedure. Flash Sandoval DPM 08/05/2020 6:23 AM INTERVAL HISTORY AND PHYSICAL Patient Name: Mikayla Pappas Admit Date: MR #: [id number] : 1960 The H&P has been reviewed and the patient has been examined. I concur with the findings of the H&P. There are no significant changes. It is appropriate to proceed with the planned procedure. Flash Sandoval DPM 07/29/2020 10:27 AM [facility] [place] Assessment and Plan Mkiayla Pappas is a 59 y.o. male patient of Isis Rincon DO with history of DM type II, HTN, left foot wound presented with worsening left foot wound. Left diabetic foot ulcer w/out sepsis Inflammatory markers elevated XR L foot (07/26) no acute bony abnormality MRI L foot/heel (07/26) suspected early OM NIVS (07/27) no evidence of significant stenosis, normal perfusion Inflammatory markers elevated Blood cx (07/26) NGTD; Wound cx (07/26) GPC, GNB, gram neg diplococci Consulted Podiatry and ID Vanco/Zosyn started (07/26) Plan for I&D and bone bx's (07/29) Pre-op evaluation Patient denies acute chest pain or dyspnea Patient without history of CAD, CHF, CKD or Cerebrovascular Disease EKG with bifascicular block that is present dating back to 2015 No other cardiac testing in computer system Patient functional capacity at 4 METS RCRI score of 1 (IDDM2) Per ACC/AHA guidelines, patient may proceed with surgery without any further testing with acceptable risk. IDDM2, uncontrolled A1c 13.5%; pt states he has been running low on insulin and rationing due to costs Home regimen: glipizide and Janumet, Lantus 55U QAM and Humalog SSi Hold home orals; started on Lantus 50U QHS and Humalog correctional SSI (normal) Will monitor insulin needs and augment as needed Accuchecks and diabetic diet Consult adult educator Will need Rx for basaglar at dc Essential HTN Continue home Losartan LORENA Autopap prn Encourage IS and OOB as tolerated Neuropathy Continue home gabapentin Code Status: Full Code Quality Measures DVT Prophylaxis: Lovenox Todd Catheter: Absent Disposition Discharge Location: Pending Estimated Discharge Date: Pending; plan for OR today Outpatient Testing: Pending Subjective Pt lying in bed. Denies any chest pain, pressure of discomfort. Denies any SOB, cough, congestion. Denies any abdominal pain, nausea/vomiting. Tolerating PO intake. States he has polyuria but no dysuria. Denies bowel dysfunction. Review of Systems All systems have been reviewed and are negative except as noted in HPI or below Objective BP 131/70 Pulse 65 Temp 98.7 F (37.1 C) (Oral) Resp 14 Ht 5' 8 Wt 88.5 kg (195 lb) SpO2 96% BMI 29.65 kg/m Physical Examination General Appearance: alert, disheveled, and in no acute distress HEENT: Head- normocephalic; Eyes- PERRLA, EOMI; Ears- external auditory canals clear, hearing intact; Nose- no nasal discharge; Throat- oropharynx normal Cardiovascular: regular rate and rhythm; normal S1, S2; no murmurs, rubs, clicks or gallops; no peripheral edema Respiratory: lungs clear to auscultation; without wheezes, rales or rhonchi. On room air. Abdomen: soft, non-tender, non-distended; positive bowel sounds, overweight Neurological: alert, oriented x 3, normal speech; no focal findings or movement disorder noted Musculoskeletal: no significant deformity or tenderness to palpation. Left foot drsg intact, malodorous Skin: normal coloration, texture and turgor; no lesions or eruptions Psych: normal mood and affect Results/Medications Reviewed 07/29/20 6:25 AM Laboratory, Microbiology, Cardiology, Medications and Transcriptions [facility] [place] Assessment and Plan Mikayla Pappas is a 59 y.o. male patient of Isis Rincon DO with history of DM type II, HTN, left foot wound presented with worsening left foot wound. Left diabetic foot ulcer w/out sepsis Inflammatory markers elevated XR L foot (07/26) no acute bony abnormality MRI L foot/heel (07/26) suspected early OM NIVS (07/27) no evidence of significant stenosis, normal perfusion Inflammatory markers elevated Blood cx (07/26) NGTD; Wound cx (07/26) GPC, GNB, gram neg diplococci Consulted Podiatry and ID Vanco/Zosyn started (07/26) Plan for OR (07/29) Pre-op evaluation Patient denies acute chest pain or dyspnea Patient without history of CAD, CHF, CKD or Cerebrovascular Disease EKG with bifascicular block that is present dating back to 2015 No other cardiac testing in computer system Patient functional capacity at 4 METS RCRI score of 1 (IDDM2) Per ACC/AHA guidelines, patient may proceed with surgery without any further testing with acceptable risk. IDDM2, uncontrolled A1c 13.5%; pt states he has been running low on insulin and rationing due to costs Home regimen: glipizide and Janumet, Lantus 55U QAM and Humalog SSi Hold home orals; started on Lantus 50U QHS and Humalog correctional SSI (normal) Will monitor insulin needs and augment as needed Accuchecks and diabetic diet Consult adult educator Will need Rx for basaglar at dc Essential HTN Continue home Losartan LORENA Autopap prn Encourage IS and OOB as tolerated Neuropathy Continue home gabapentin Code Status: Full Code Quality Measures DVT Prophylaxis: Lovenox Todd Catheter: Absent Disposition Discharge Location: Pending Estimated Discharge Date: Pending; plan for OR Saturday Outpatient Testing: Pending Subjective Pt lying in bed. Denies any chest pain, pressure of discomfort. Denies any SOB, cough, congestion. Denies any abdominal pain, nausea/vomiting. Tolerating PO intake. States he has polyuria but no dysuria. Denies bowel dysfunction. LBM 07/27. Review of Systems All systems have been reviewed and are negative except as noted in HPI or below Objective BP 124/71 (BP Location: Left arm, Patient Position: Lying) Pulse 76 Temp 99.5 F (37.5 C) (Oral) Resp 14 Ht 5' 8 Wt 88.5 kg (195 lb) SpO2 93% BMI 29.65 kg/m Physical Examination General Appearance: alert, disheveled, and in no acute distress HEENT: Head- normocephalic; Eyes- PERRLA, EOMI; Ears- external auditory canals clear, hearing intact; Nose- no nasal discharge; Throat- oropharynx normal Cardiovascular: regular rate and rhythm; normal S1, S2; no murmurs, rubs, clicks or gallops; no peripheral edema Respiratory: lungs clear to auscultation; without wheezes, rales or rhonchi. On room air. Abdomen: soft, non-tender, non-distended; positive bowel sounds, overweight Neurological: alert, oriented x 3, normal speech; no focal findings or movement disorder noted Musculoskeletal: no significant deformity or tenderness to palpation. Left foot drsg intact, malodorous Skin: normal coloration, texture and turgor; no lesions or eruptions Psych: normal mood and affect Results/Medications Reviewed 07/28/20 6:09 AM Laboratory, Microbiology, Cardiology, Medications and Transcriptions [facility] [place] Patient Name: Mikayla Pappas : 1960 MR #: [id number] Admit Date: Physicians: Isis Rincon DO (Family); Adalberto Espino* (Referring) Mikayla Pappas is a 59 y.o. male patient of [facility] with history of DM type II, HTN, left foot wound presented with worsening left foot wound. Left diabetic foot wounds WBC count normal, no SIRS criteria met on admission Elevated inflammatory markers. X-ray foot shows no acute bony abnormality, forefoot soft tissue swelling. Consulted Podiatry and ID; will defer further imaging with MRI to Podiatry team. NIVS ordered to evaluate for arterial occlusion. Start Vancomycin and Zosyn. Follow culture data. Pre-op evaluation METS > 4 RCRI 1 (Insulin use) No active cardiac or pulmonary condition. No chest pain or SOB. EKG pending. NIVS pending. Ok to proceed to surgery pending EKG and vascular studies. DM type II Check HBA1C. Resume home Lantus, added SSI. Essential HTN BP elevated on admission. Resume home Losartan. Admitted From: [facility] ED Medication Reconciliation: Verified Code Status: Full Code Quality Measures DVT Prophylaxis: Lovenox Todd Catheter: None Disposition Outpatient Testing: None Chief Complaint Left foot wound History of Present Illness Mikayla Pappas is a 59 y.o. male patient of [facility] with history of DM type II, HTN, left foot wound presented with worsening left foot wound. Patient reported dealing with left foot ulcer at the bottom of the foot for more than 4 weeks and was following Dr. Calvillo who prescribed him Clindamycin and was dressing the wound. However, he lost follow up due to financial concerns for last 2-3 weeks and already finished antibiotics. He took his dressing off to see a wound on top of the foot in addition to the bottom with foul odor and drainage. He denies any fever, chills, nausea or vomiting. 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 f/u Past Surgical History Past Surgical History: Procedure Laterality Date AMPUTATION TOE(S) Right 08/03/2016 Procedure: RIGHT 3RD DIGIT AMPUTATION ; Surgeon: Jet Calvillo DPM; Location: [facility] OR; Service: CARDIAC CATHETERIZATION ablation for WPW FOOT SURGERY Right 2nd toe partial amputation Family History Family History Problem Relation Age of Onset Diabetes Father Surgical complications Neg Hx Anesthesia problems Neg Hx Heart disease Neg Hx Clotting disorder Neg Hx Deep vein thrombosis Neg Hx Pulmonary embolism Neg Hx Social History Social History Tobacco Use Smoking Status Never Smoker Smokeless Tobacco Never Used Social History Substance and Sexual Activity Alcohol Use No Social History Substance and Sexual Activity Drug Use No Allergy Information I have reviewed the patient's allergies. Dilantin infatabs [phenytoin] Home Medications Home medications were reviewed. Review Of Systems All systems have been reviewed and are negative except as noted in HPI or below Physical Examination There were no vitals taken for this visit. General Appearance: alert, well appearing, and in no acute distress HEENT: Head- normocephalic; Eyes- EOMI; Ears- hearing intact Cardiovascular: regular rate and rhythm; normal S1, S2; no murmurs, rubs, clicks or gallops; no peripheral edema Respiratory: lungs clear to auscultation; without wheezes, rales or rhonchi Abdomen: soft, non-tender, non-distended; positive bowel sounds Neurological: alert, oriented x 3, normal speech; no focal findings or movement disorder noted Musculoskeletal: Left foot plantar surface and dorsal surface open wound with foul odor Skin: normal coloration, texture and turgor; no lesions or eruptions Psych: normal mood and affect Laboratory and Additional Data Reviewed Laboratory 07/26/20 2:07 PM Radiology 07/26/20 2:07 PM Cardiology 07/26/20 2:07 PM Medications 07/26/20 2:07 PM Transcriptions 07/26/20 2:07 PM Expected Discharge/Time Spent Based on current clinical information, the expected discharge date is: specified date (07/29/2020) documented in this encounter HMS HISTORY AND PHYSICAL Patient Name: Mikayla Pappas : 1960 MR #: [id number] Admit Date: Physicians: Greyson Dominguez MD (Family); No ref. provider found (Referring) Mikayla Pappas is a 60 y.o. male patient of Greyson Dominguez MD with history of overactive bladder, depression with previous SI, IDDM2, LORENA and HTN with hospital stay 08/15-08/18 for gross hematuria and urinary retention s/p meatal dilation who presented to [facility] with hematuria. UTI Sepsis One week history of suprapubic pain with LUTS UA with many bacteria, >180 RBCs and WBC and large blood, WBC 12 Continue Ancef, BCx2 and UC pending Urinary Retention Hematuria With hospital stay 08/15-08/18 for similar with meatal stenosis dilation Todd placed in Dr. Mercedes's office 10/19 and draining Defer CBI for now. Continue Pyridium. Obtain INR. NPO for possible repeat dilation Uncontrolled IDDM2 with Hyperglycemia HbA1c 13.5% (07/2020) on Janumet, Glipizide and Lantus 50 units nighty BG 267 on arrival. 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 PT/OT. Fall risk. HTN Normotensive on arrival, continue home Amlodipine and Cardura Holding Losartan in case operative management needed LORENA Continue CPAP at bedtime and with naps Admitted From: Home Medication Reconciliation: Unverified Code Status: Full Code Quality Measures DVT Prophylaxis: SCDs Todd Catheter: NA Disposition Outpatient Testing: NA Chief Complaint Weakness History of Present Illness Mikayla Pappas is a 60 y.o. male patient of Greyson Dominguez MD with history of overactive bladder, depression with previous SI, IDDM2, LORENA and HTN with hospital stay 08/15-08/18 for gross hematuria and urinary retention s/p meatal dilation who presented to [facility] with hematuria. Mr. Pappas notes about a 1 week history of just generalized weakness, severe pain, and bilateral flank pain. He does note he had a fever 101.4. He also has some muscle aches. His appetite has been poor. He has issues emptying his bladder and does not think he is emptying all the way. He saw his urologist in the morning time who noticed that he looked very weak and inserted a catheter. The catheter did have some hematuria with it but it drained. He was put on Pyridium. He was recommended come to the emergency department for further evaluation however he went home. At home he was too weak to stand and actually fell down his bath without any loss of consciousness or pain. 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 bobbin presser f/u Past Surgical History Past Surgical History: Procedure Laterality Date AMPUTATION FOOT Left 08/05/2020 Procedure: POSSIBLE AMPUTATION; Surgeon: Jet Calvillo DPM; Location: [facility] OR; Service: Podiatry AMPUTATION TOE(S) Right 08/03/2016 Procedure: RIGHT 3RD DIGIT AMPUTATION ; Surgeon: Jet Calvillo DPM; Location: [facility] OR; Service: CARDIAC CATHETERIZATION ablation for WPW CATHETER INSERTION SUPRAPUBIC N/A 08/16/2020 Procedure: CATHETER PLACEMENT OVER GUIDE; Surgeon: Paul Kim MD; [place] [facility] [place] Service: Urology CYSTO DIRECT VISION INTERNAL URETHROTOMY N/A 08/16/2020 Procedure: CYSTOSCOPY URETERAL DILATION POSSIBLE DIRECT VISION INTERNAL URETHROTOMY; Surgeon: Paul Kim MD; [place] [facility] [place]; Service: Urology FOOT SURGERY Right 2nd toe partial amputation INCISION AND DRAINAGE FOOT AND ANKLE Left 07/29/2020 Procedure: LEFT FOOT ULCER INCISION AND DRAINAGE LEFT FOOT BONE DEBRIDEMENT W/ BIOPSY; Surgeon: Jet Calvillo DPM; Location: [facility] OR; Service: Podiatry INCISION AND DRAINAGE FOOT AND ANKLE Left 08/05/2020 Procedure: LEFT FOOT ULCER DEBRIDEMENT; Surgeon: Jet Calvillo DPM; Location: [facility] OR; Service: Podiatry Family History Family History Problem Relation Age of Onset Diabetes Father Surgical complications Neg Hx Anesthesia problems Neg Hx Heart disease Neg Hx Clotting disorder Neg Hx Deep vein thrombosis Neg Hx Pulmonary embolism Neg Hx Social History Social History Tobacco Use Smoking Status Never Smoker Smokeless Tobacco Never Used Social History Substance and Sexual Activity Alcohol Use No Social History Substance and Sexual Activity Drug Use No Allergy Information I have reviewed the patient's allergies. Dilantin infatabs [phenytoin] Home Medications Home medications were reviewed. Review Of Systems All systems have been reviewed and are negative except as noted in HPI or below Physical Examination BP (!) 146/67 Pulse (!) 107 Temp 100.1 F (37.8 C) Resp 16 SpO2 97% General Appearance: Ill appearing male in bed, NAD HEENT: Head- normocephalic; Eyes- PERRLA, EOMI; Ears- external auditory canals clear, hearing intact; Nose- no nasal discharge; Throat- oropharynx normal Cardiovascular: Regular rate and rhythm; normal S1, S2; no murmurs, no peripheral edema Respiratory: Lungs clear to auscultation bilateral; without wheezes, rales or rhonchi Abdomen: Soft, suprapubic tenderness, no CVA tenderness Neurological: Alert, oriented x 3, normal speech; no focal findings or movement disorder noted Musculoskeletal: No significant deformity or tenderness to palpation, moves all extremities well Skin: Normal coloration, texture and turgor; no lesions or eruptions Psych: Depressed and weak Laboratory and Additional Data Reviewed Laboratory 10/19/20 6:13 PM Cardiology 10/19/20 6:13 PM Medications 10/19/20 6:13 PM Transcriptions 10/19/20 6:13 PM Expected Discharge/Time Spent Based on current clinical information, the expected discharge date is: day after tomorrow (10/21/2020) documented in this encounter Rakesh Muñoz MD - 07/31/2020 11:10 AM Kimberly Stephens, OT - 07/30/2020 3:46 PM Ananth Britt, PT - 07/30/2020 10:49 AM Eden Prescott, RN - 07/30/2020 10:21 AM EDT Consult Notes (unrecognized section and content) Associated Order(s): IP CONSULT TO INFECTIOUS DISEASES CONSULT NOTE Patient Name: Mikayla Pappas Admit Date: MR #: [id number] : 1960 Physicians: Elijah Leon MD (Family); Cole Espino (Referring) Chief Complaint/Reason for Visit: Left foot infection History of Present Illness: Mikayla Pappas is a 59 y.o. male with history of hypertension, diabetes, GERD, hyperlipidemia, sleep apnea who presents with history of left foot ulceration on the plantar aspect as well as across the dorsal foot (pictures reviewed) with MRI imaging suspicious for first metatarsal osteomyelitis changes. He is being followed by podiatry post surgery and data is pending in regard to confirming osteomyelitis. At this time he is on empiric antibiotic therapy with vancomycin and Zosyn which he is tolerating. 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 Dilantin infatabs [phenytoin] Home Medications: Outpatient Medications as of 07/31/2020 Medication Sig ascorbic acid, vitamin C, (ascorbic acid with lakesha hips) 500 MG tablet Take 500 mg by mouth daily . gtoxrrh-fjjopbhuaiimm-ahnkyusi (EXCEDRIN MIGRAINE) 250-250-65 mg per tablet Take 1 tablet by mouth every 6 (six) hours as needed for pain. glipiZIDE (GLUCOTROL XL) 10 MG 24 hr tablet Take 10 mg by mouth every morning . insulin glargine (LANTUS) 100 unit/mL injection Inject 55 Units under the skin every morning . losartan (COZAAR) 25 MG tablet Take 25 mg by mouth every morning . ROSUVASTATIN CALCIUM (CRESTOR ORAL) Take by mouth every evening. sitagliptan-metFORMIN (JANUMET) 50-1,000 mg per tablet Take 1 tablet by mouth 2 (two) times a day. Hospital Medications: Current Facility-Administered Medications Medication Dose Route Frequency Provider Last Rate Last Admin acetaminophen (TYLENOL) tablet 650 mg 650 mg Oral Q4H PRN Patrick Myao MD aluminum-magnesium hydroxide-simethicone (MAALOX PLUS) 200-200-20 mg/5 mL suspension 30 mL 30 mL Oral 4x Daily PRN Mirta Mills CNP ascorbic acid (vitamin C) (VITAMIN C) tablet 500 mg 500 mg Oral Daily Patrick Mayo MD 500 mg at 07/31/20 0815 bisacodyL (DULCOLAX) suppository 10 mg 10 mg Rectal Daily PRN Mirta Mills CNP cyanocobalamin (B-12) tablet 1,000 mcg 1,000 mcg Oral Daily Patrick Mayo MD 1,000 mcg at 07/31/20 0815 diphenhydrAMINE (BENADRYL) oral solid 25 mg 25 mg Oral Q6H PRN Mirta Mills CNP enoxaparin (LOVENOX) syringe 40 mg 40 mg Subcutaneous Daily in PM Nate Cazares DPM 40 mg at 07/30/202028 gabapentin (NEURONTIN) capsule 300 mg 300 mg Oral Q8H KAM Mirta Mills CNP 300 mg at 07/31/20 0534 hydrALAZINE (APRESOLINE) tablet 25 mg 25 mg Oral Q6H PRN Mirta Mills CNP HYDROcodone-acetaminophen (NORCO) 5-325 mg per tablet 1 tablet 1 tablet Oral Q6H PRN Patrick Mayo MD 1 tablet at 07/30/202028 insulin glargine (LANTUS) injection 50 Units 50 Units Subcutaneous Nightly Patrick Mayo MD 50 Units at 07/30/202028 insulin lispro (HumaLOG) injection 0-15 Units 0-15 Units Subcutaneous at bedtime Patrick Mayo MD insulin lispro (HumaLOG) injection 0-30 Units 0-30 Units Subcutaneous TID AC Patrick Mayo MD 4 Units at 07/30/201731 magnesium hydroxide (MOM) 400 mg/5 mL suspension 2,400 mg 30 mL Oral Daily PRN Mirta Mills CNP methocarbamoL (ROBAXIN) tablet 500 mg 500 mg Oral TID PRN Mirta Mills CNP naloxone (NARCAN) injection 0.1 mg 0.1 mg Intravenous PRN Patrick Mayo MD And naloxone (NARCAN) injection 0.4 mg 0.4 mg Intravenous PRN Patrick Mayo MD ondansetron (ZOFRAN) injection 4 mg 4 mg Intravenous Q6H PRN Patrick Mayo MD piperacillin-tazobactam (ZOSYN) IVPB 3.375 g (premix) 3.375 g Intravenous Q8H Patrick Mayo MD 12.5 mL/hr at 07/31/20 0742 3.375 g at 07/31/20 0742 senna-docusate (SENNA-S) 8.6-50 mg per tablet 1 tablet 1 tablet Oral BID Patrick Mayo MD Stopped at 07/29/20 0900 sodium chloride 0.9% (NS) 100 mL/hr Intravenous Continuous Mirta Mills CNP traZODone (DESYREL) tablet 50 mg 50 mg Oral Nightly PRN Patrick Mayo MD vancomycin (VANCOCIN) 1250 mg in sodium chloride 0.9% (NS) 250 mL IVPB 1,250 mg Intravenous Q12H Jorge Imtiaz Manasa, RPh,PharmD 250 mL/hr at 07/31/20 0539 1,250 mg at 07/31/20 0539 Review of Systems: The following system(s) were reviewed and pertinent findings noted: Constitutional, Eyes, ENT, CV, Resp, GI, Neuro, Skin, Musc, , Heme/Lym Physical Examination: Vital Signs: BP (!) 148/77 (BP Location: Left arm, Patient Position: Lying) Pulse (!) 52 Temp 98.3 F (36.8 C) (Oral) Resp 14 Ht 5' 8 Wt 88.9 kg (196 lb) SpO2 96% BMI 29.80 kg/m General: No acute distress Head: Normocephalic, without obvious abnormality, atraumatic Eyes: Conjunctiva/corneas clear, EOM's intact Throat: Lips, mucosa without lesions Neck: Supple, symmetrical, trachea midline, no adenopathy; Lungs: Clear to auscultation bilaterally, respirations unlabored,normal respiratory effort Cardiovascular: Regular rate and rhythm, S1 and S2 normal, no murmur, rub or gallop; no edema Abdomen: Soft, non-tender, bowel sounds active,no masses, no organomegaly Skin: Turgor normal, no rashes or lesions or nodules Extremities: No cyanosis,clubbing left foot wrapped Musculoskeletal: No joint edema Neurologic: Grossly normal strength Psych: Mood and affect appropriate; alert and oriented x 3 Laboratory and Additional Data Reviewed: Lab Results Component Value Date WBC 6.37 07/29/2020 HGB 10.5 (L) 07/29/2020 HCT 31.8 (L) 07/29/2020 MCV 89.6 07/29/2020 PLT 298 07/29/2020 Lab Results Component Value Date GLUCOSE 158 (H) 07/31/2020 CALCIUM 8.7 07/31/2020 NA 137 07/31/2020 K 3.8 07/31/2020 CL 105 07/31/2020 BUN 13 07/31/2020 CREATININE 1.29 07/31/2020 CREATININE 1.38 (H) 07/31/2020 Cultures: Pending Radiology: XR OR Fluoroscopy Time Final Result US Doppler ankle/brachial index Final Result Ultrasound duplex arterial leg left Final Result MR Heel Left Without Contrast Final Result 1. Eltpqgow-nc-bvhvg dorsal ulcer at the level the left 1st metatarsal base and shaft. Adjacent skin thickening and subcutaneous edema, likely cellulitis. No abscess. Suspected early osteomyelitis of the 1st metatarsal base and proximal shaft. 2. Small plantar ulceration at the 2nd MTP joint. No abscess or osteomyelitis. 3. No evidence of osteomyelitis at the heel. [employer] Workstation ID: [id number] MR Foot Left Without Contrast Final Result 1. Cblxtmin-mb-sicgp dorsal ulcer at the level the left 1st metatarsal base and shaft. Adjacent skin thickening and subcutaneous edema, likely cellulitis. No abscess. Suspected early osteomyelitis of the 1st metatarsal base and proximal shaft. 2. Small plantar ulceration at the 2nd MTP joint. No abscess or osteomyelitis. 3. No evidence of osteomyelitis at the heel. [employer] Workstation ID: [id number] Assessment and Plan: #1 left foot infection-suspicion for possible osteomyelitis of the first and second metatarsal and has had surgical debridement and bone biopsy-awaiting data on empiric antibiotic therapy and will de-escalate this as able 2. Diabetes-monitor glucose, management per hospitalist team 3. Hypertension-on treatment, management per hospitalist team 4. Sleep apnea-CPAP as needed Disposition Comments: Will decide discharge antibiotic needs as data accumulates Rakesh Muñoz MD; pager [phone] Occupational Therapy OCCUPATIONAL THERAPY EVALUATION NOTE Skilled Therapy Needs After Discharge Anticipate Resolution of Current Assessment Limitations Including: Pain, Mechanical Barriers, Social Support Are Skilled Therapy Services Needed After Discharge: No DME Recommendation: None Rehab Potential: Good Outcomes Measures Prior Function Daily Activity: Raw Score: 24 Prior Function Daily Activity % Impaired: 0% functionally impaired AM-PAC Daily Activity: Raw Score: 17 AM-PAC Daily Activity % Impaired: 50.11% functionally impaired Occupational Therapy Assessment The patient's current functional participation deficits are grooming, UE dressing, LE dressing, bathing, toileting, home management, functional mobility. This reduced independence will limit their life roles of premorbid level individual, parent, spouse, community member, family member. The patient's co morbidities do affect patient performance in the above activities and roles. The performance deficits are a result of musculoskeletal impairment(s) in right, lower extremity including strength, balance, range of motion, coordination, sensation, acitvity tolerance, pain, command following, sequencing, safety, insight, and pain intolerance, knowledge deficit. The patient's home setup is a barrier, family / caregiver support is a pigment mixer for return to prior level of function. The patient's compliance is a barrier, awareness of own capacity and performance is a barrier to return to prior level of function. During the assessment, minimal to moderate modification of task was required and several treatment options were identified in the plan of care. This consultation required expanded review of the medical and therapy history. Activity Tolerance Activity Tolerance: Tolerates 10 - 20 min activity with multiple rests Therapy Precautions Orthotic Devices: No Weight Bearing Status: X LLE: Non Wt bearing General Rehab Precautions: Fall risk Cognition Overall Cognitive Status: Within Functional Limits(mild impairment) Arousal/Alertness: Appropriate responses to stimuli Orientation Level: Oriented X4 Executive functioning: Insight, Sequencing, Min impairment Safety Judgment: Decreased awareness of need for safety Attention: Attends to quiet environment, Easily distracted Social Interaction: Appropriate, Cooperative ADL/IADL Feeding: Independent Grooming : Stand by assistance UE Dressing: Independent LE Dressing: Mod Toileting : Contact guard Bed Mobility Rolling: Stand by assistance Supine to Sit: Stand by assistance Sit to Supine: Independent Functional Transfers Sit to Stand: Contact guard Toilet Transfers: Contact Guard Home Living Type of Home: House Home Layout: Multi-level, Work area in basement, Bed/bath upstairs(6-8 steps, split level) Bathroom Shower/Tub: Tub/shower unit Bathroom Toilet: Standard Home Equipment: Wheeled Walker, Cane Prior Level of Function Level of Craven: Independent with ADLs and functional transfers, Independent with homemaking with ambulation Lives With: Alone Receives Help From: Friend(s) Past Medical History: Diagnosis Date Diabetes mellitus, type 2 (HCC) no AC at home, on insulin for 3 years Diabetic neuropathy (HCC) GERD (gastroesophageal reflux disease) no current meds History of cardiac cath 1990 for RFA due to WPW History of depression no current meds Hyperlipidemia Hypertension Obesity Open wound right 3rd toe Seizures (HCC) questionable when a child, no recurrence Sleep apnea, obstructive partial compliance with CPAP WPW (Ixfoo-Bfkbgyhux-Xgfbb syndrome) 1990 s/p RFA in 1990, 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 bobbin presser f/u Past Surgical History: Procedure Laterality Date AMPUTATION TOE(S) Right 08/03/2016 Procedure: RIGHT 3RD DIGIT AMPUTATION ; Surgeon: Jet Calvillo DPM; Location: [facility] OR; Service: CARDIAC CATHETERIZATION ablation for WPW FOOT SURGERY Right 2nd toe partial amputation OCCUPATIONAL THERAPY TREATMENT NOTE Total Treatment Time (Total Session Time): 23 Minutes Timed Code Treatment Minutes: 12 Minutes Cognitive Skills Development Skilled Intervention: 100% 2 step command following Self-Care / Home Management ADL/IADL Skilled Intervention: Edu pt on Lt LE NWB status, modf LB dressing wwith and w/o AE, toileting techniques and home management techniques to increase functional outcomes. Pt has AE at home, but has never used it for LB ADLs. Will attempt AE next tx session 2* pain. Pt needed min v.c. for hand placement, weight shifting and safety during standing ADLs increase functional performance. Therapeutic Activities Bed Mobility Skilled Intervention: Pt demo'd safe bed mobility technique Functional Transfers Skilled Intervention: Pt needed min verbal cues for proper body mechanics, sequencing, safe use of AD in a small space and hand placement to facilitate ADL transfers. Pt unable to maintain WB staus. Pt stated he was only performing heel WB, but there were several times where pt did shift his weight too far forward. Rec pt wear tennis shoe on Rt LE to create a height difference which would allow greater ease of maintaining WB status. Pt verbalized fair understanding. For complete objective data, detailed plan of care and patient education refer to: OT EVALUATION flow sheet, OT TREATMENT flow sheet, patient Plan of Care, Plan of Care progress note, and Patient Education. This note stands as the current Discharge Summary upon patient discharge from the hospital or completion of Occupational Therapy Plan of Care. Physical Therapy PHYSICAL THERAPY EVALUATION NOTE Pt is having significant difficulty maintaining nwb Left leg today. Skilled Therapy Needs After Discharge Are Skilled Therapy Services Needed After Discharge: No DME Recommendation: Elevated toilet seat, Tub seat DME Rationale: Patient's condition prevents him/her from accomplishing ADL without recommended equipment, Patient's condition creates an increased risk of safety hazard without recommended equipment, Equipment required to maintain weight bearing status per physician orders Outcomes Measures Prior Function - Basic Mobility Raw Score: 24 Points Prior Function - Basic Mobility % Impaired: 0% functionally impaired AM-PAC - Basic Mobility Raw Score: 18 Points AM-PAC - Basic Mobility % Impaired: 40.47% functionally impaired Physical Therapy Assessment History: The following factors influence the patient's participation in the PT plan of care: Personal Factors: Limited Compliance, Social Barriers, Body Habitus Environmental Factors: Multi-level home, Bedroom/bathroom on 2nd floor, Lives alone The following co-morbidities (from this admission or prior) influence the patient's participation in this plan of care: see pmh Number of History elements affecting this patient's PT plan of care: 3 or more Examination of Body Systems: The patient presents with: Musculoskeletal impairments: Strength, Pain, Functional Endurance. These impairments result in limitations of Gait, Functional Transfers, Stair-Climbing, Safety, Safety Awareness, Activity Tolerance. These impairments result in restrictions of Household mobility, Community mobility, Work-related activities, Leisure activities. Number of Body Systems elements affecting this patient's PT plan of care: 4 or more. Clinical Presentation: The patient's clinical presentation for this PT evaluation is unstable as evidenced by current PT documentation. Activity Tolerance Activity Tolerance: (deconditioned) Therapy Precautions Orthotic Devices: No Weight Bearing Status: X LLE: Non Wt bearing General Rehab Precautions: Fall risk Bed Mobility Supine to Sit: Independent Sit to Supine: Independent Transfers Sit to Stand: Contact guard Gait/Locomotion Gait Assistance: Contact guard Assistive Device: Wheeled walker Distance: 25 Feet Pattern: Step to Weight Bearing Status: Unable to maintain, Non-weight bearing Home Living Type of Home: House Home Layout: Multi-level, Work area in basement, Bed/bath upstairs(6-8 steps, split level) Bathroom Shower/Tub: Tub/shower unit Bathroom Toilet: Standard Home Equipment: Wheeled Walker, Cane Prior Level of Function Level of Craven: Independent with ADLs and functional transfers, Independent with homemaking with ambulation Lives With: Alone Receives Help From: Friend(s) Past Medical History: Diagnosis Date Diabetes mellitus, type 2 (HCC) no AC at home, on insulin for 3 years Diabetic neuropathy (HCC) GERD (gastroesophageal reflux disease) no current meds History of cardiac cath 1990 for RFA due to WPW History of depression no current meds Hyperlipidemia Hypertension Obesity Open wound right 3rd toe Seizures (HCC) questionable when a child, no recurrence Sleep apnea, obstructive partial compliance with CPAP WPW (Xjlbf-Tbcwnrkdh-Wfhfu syndrome) 1990 s/p RFA in 1990, no current bobbin presser f/u Past Surgical History: Procedure Laterality Date AMPUTATION TOE(S) Right 08/03/2016 Procedure: RIGHT 3RD DIGIT AMPUTATION ; Surgeon: Jet Calvillo DPM; Location: [facility]; Service: CARDIAC CATHETERIZATION ablation for WPW FOOT SURGERY Right 2nd toe partial amputation PHYSICAL THERAPY TREATMENT NOTE Total Treatment Time (Total Session Time): 24 Minutes Timed Code Treatment Minutes: 14 Minutes Gait Training Skilled Intervention: pt with significant difficulty maintaining nwb, tended to put weight thru heel of left leg for balance and stability even with walker, education and cues to progress to nwb left leg, education to healing process and importancce of remaining nwb on foot as ordered, education to limit gait Transfers Skilled Intervention: cues for nwb left leg during transfers, difficult for pt to comply, cues for foot and hand placement to facilitate For complete objective data, detailed plan of care and patient education refer to: PT EVALUATION flow sheet, PT TREATMENT flow sheet, patient Plan of Care, Plan of Care progress note, and Patient Education. This note stands as the current Discharge Summary upon patient discharge from the hospital or completion of Physical Therapy Plan DM Ed: Following up from encounter yesterday. Provided patient with co-pay savings card for Janumet to help with reducing cost burden of medication. Also discussed appointment made with [facility] for 08/03. I will continue to follow peripherally in case date needs changed based on patient's length of stay. Eden RAMIREZ RN, FRANK Diabetes Education DM Ed: Followed up with patient to discuss co-pay savings card provided for Basaglar. Patient is an appropriate candidate for [facility] after discharge. Discussed this with him and he is interested in referral. I will call and scheduled appointment for him. Plan for OR this afternoon; patient requesting I follow up with him again tomorrow for any further questions or concerns. Eden RAMIREZ RN, FRANK Diabetes Education Associated Order(s): IP CONSULT TO LIGHTING ENGINEER Mikayla Pappas is a 59 yr old male with a history of DM2 and HTN admitted with worsening left foot wound. A1c on admission was 13.5%. Met with patient to discuss current self-management strategies, identify challenges, and provide education as needed. Mr. Pappas is prescribed to take 55 units of Lantus qAM, 5-7 units of Humalog TIDAC glipizide, and Janumet at home. However, he admits to financial barriers with being able to afford his medication so he has been rationing his insulin to make it last longer . Out of 7 days in the week, he states that he'll take his Lantus on 3 of those days, spacing them out throughout the week. Has a meter and checks his BG at least 2x/day, typically running 300s+. Tries to follow healthy diet but does admit to some food insecurity. Discussed option of food pantries but patient declines stating he doesn't want to be a jericho case. Called his pharmacy to inquire about cost of his insulin and if he could utilize a co-pay savings card. Basaglar is preferred per his [facility] pharmacist based on insurance coverage; recommend changing Lantus to Basaglar at discharge. I will provide patient with a Basaglar co-pay savings to further reduce cost to as little as $5/month. Eden RAMIREZ, RN, [facility] Diabetes Education Associated Order(s): IP CONSULT TO PODIATRY FOOT AND ANKLE SURGERY CONSULTATION NOTE ASSESSMENT: Mikayla Pappas 59 y.o. male with PMHx DM type II, HTN presents with left foot wounds with concern for deep infection. - Afebrile, VSS - Labs reviewed: WBC 8.39, Cr 0.79, CRP 41.3, ESR 103, A1c pending - Swab culture (07/26): pending - Imaging reviewed: XR: 07/26 no evidence of acute osteomyelitis. MRI: 07/26 pending - Blood cultures 07/26 NGTD - NIVS: 07/26 pending PLAN: - Dressing applied: DSD, Kerlix, Spencer - NWB to LLE and postop shoe with assistive device. - Admitted to primary - Empiric IV Vanco/Zosyn - Patient will require preoperative risk stratification, appreciate [facility] [place]. - Tentative plan for surgical intervention pending MRI and NIVS. - Patient discussed with Dr. Calvillo, further plan per attending physician CHIEF COMPLAINT: Left foot wound HISTORY OF PRESENT ILLNESS: Patient is a 59 y.o. male presents with left foot wounds with concerns of deep infection. Patient is known to Dr. Calvillo. Patient states in April he was treated for a wound on the bottom of his left foot which required regular dressing changes and antibiotics. He admits that at one point he felt the wound was doing well and decided not to go see Dr. Calvillo. He states that he left the same dressing on for over a month. He states that while the bandages were still on he noticed the foot began to swell and become red. Patient was unaware that there was a large wound on top of his foot caused by the dressing he left on for a month. Patient denies drainage, malodor, nausea, vomiting, fever, chills, shortness of breath. Denies any other pedal complaints at this time. 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, no current bobbin presser f/u Past Surgical History Past Surgical History: Procedure Laterality Date AMPUTATION TOE(S) Right 08/03/2016 Procedure: RIGHT 3RD DIGIT AMPUTATION ; Surgeon: Jet Calvillo DPM; Location: [facility] OR; Service: CARDIAC CATHETERIZATION ablation for WPW FOOT SURGERY Right 2nd toe partial amputation Medications Current Facility-Administered Medications on File Prior to Encounter Medication Dose Route Frequency Provider Last Rate Last Admin [COMPLETED] piperacillin-tazobactam (ZOSYN) 4.5 g in sodium chloride (NS) 0.9% 100 mL MBP 4.5 g Intravenous Once Adalberto Espino DO Stopped at 07/26/20 0611 [COMPLETED] sodium chloride 0.9% (NS) bolus 500 mL 500 mL Intravenous Once Adalberto Espino DO Stopped at 07/26/20 0611 [COMPLETED] vancomycin (VANCOCIN) 1,500 mg in sodium chloride 0.9 % (NS) 500 mL IVPB 1,500 mg Intravenous Once Elijah Barr R.Ph. Stopped at 07/26/20 0711 [DISCONTINUED] sodium chloride (PF) (NS) flush 5 mL 5 mL Intravenous PRN Adalberto Espino DO [DISCONTINUED] sodium chloride 0.9% (NS) 0-150 mL/hr Intravenous PRN Adalberto Espino DO [DISCONTINUED] vancomycin per pharmacy 1 each 1 each Intravenous as indicated by pharmacokinetics Adalberto Espino DO Current Outpatient Medications on File Prior to Encounter Medication Sig Dispense Refill ascorbic acid, vitamin C, (ascorbic acid with lakesha hips) 500 MG tablet Take 500 mg by mouth daily . cbyzxvi-nalcecjhnzaxx-nnwscfop (EXCEDRIN MIGRAINE) 250-250-65 mg per tablet Take 1 tablet by mouth every 6 (six) hours as needed for pain. cyanocobalamin, vitamin B-12, (VITAMIN B-12 ORAL) Take 1 tablet by mouth daily . gabapentin (NEURONTIN) 300 MG capsule gabapentin 300 mg capsule glipiZIDE (GLUCOTROL XL) 10 MG 24 hr tablet Take 10 mg by mouth every morning . insulin glargine (LANTUS) 100 unit/mL injection Inject 55 Units under the skin every morning . insulin lispro (HumaLOG KwikPen Insulin) 100 unit/mL InPn Inject 5-7 Units under the skin every evening . losartan (COZAAR) 25 MG tablet Take 25 mg by mouth every morning . ROSUVASTATIN CALCIUM (CRESTOR ORAL) Take by mouth every evening. sitagliptan-metFORMIN (JANUMET) 50-1,000 mg per tablet Take 1 tablet by mouth 2 (two) times a day. [DISCONTINUED] aluminum chloride (DRYSOL) 20 % external solution Apply topically as needed. [DISCONTINUED] insulin glargine (LANTUS) 100 unit/mL injection Inject 30 Units under the skin nightly. [DISCONTINUED] simvastatin (ZOCOR) 40 MG tablet 1 Unspecified daily . [DISCONTINUED] tamsulosin (FLOMAX) 0.4 mg capsule tamsulosin 0.4 mg capsule Allergies Allergies Allergen Reactions Dilantin Infatabs [Phenytoin] Rash Social History Social History Socioeconomic History Marital status: Spouse name: Not on file Number of children: Not on file Years of education: Not on file Highest education level: Not on file Occupational History Not on file Social Needs Financial resource strain: Not on file Food insecurity Worry: Not on file Inability: Not on file Transportation needs Medical: Not on file Non-medical: Not on file Tobacco Use Smoking status: Never Smoker Smokeless tobacco: Never Used Substance and Sexual Activity Alcohol use: No Drug use: No Sexual activity: Not on file Lifestyle Physical activity Days per week: Not on file Minutes per session: Not on file Stress: Not on file Relationships Social connections Talks on phone: Not on file Gets together: Not on file Attends orthodox service: Not on file Active member of club or organization: Not on file Attends meetings of clubs or organizations: Not on file Relationship status: Not on file Other Topics Concern Not on file Social History Narrative Not on file Family History Family History Problem Relation Age of Onset Diabetes Father Surgical complications Neg Hx Anesthesia problems Neg Hx Heart disease Neg Hx Clotting disorder Neg Hx Deep vein thrombosis Neg Hx Pulmonary embolism Neg Hx - No history of bleeding or clotting disorders Vital Signs Vitals: 07/26/20 1409 07/26/20 1640 BP: (!) 159/81 126/77 BP Location: Right arm Left arm Patient Position: Lying Lying Pulse: 68 66 Resp: 16 16 Temp: 98.6 F (37 C) 98.7 F (37.1 C) TempSrc: Oral Oral SpO2: 98% 97% Weight: 88.5 kg (195 lb) Height: 5' 8 Ins & Outs No intake or output data in the 24 hours ending 07/26/20 1815 PHYSICAL EXAM: General: Patient seen & evaluated at bedside. Patient in no apparent distress, resting comfortably in bed. LE Physical Exam: VASCULAR: DP pulse palpable, bilaterally and PT pulse palpable, bilaterally. CFT < 5 sec to all digits bilateral lower extremities. Severe edema appreciated to the level of the midfoot, left . NEUROLOGICAL: Light touch sensation intact to the level of the ankle, bilaterally. DERMATOLOGICAL: Left foot: Full-thickness wound noted to the dorsal and plantar aspect of left foot. Erythema extending from all digits to mid dorsal foot. Dorsal wound measures approximately 6 cm x 0.3 and probes to bone. Dorsal wound is not contiguous with the plantar wound. At the central and proximal aspect of the wound, necrotic tissue measuring approximately 3 x 1-1/2 cm noted. The wound bed consist of fibrotic slough. Wound edges do not undermine. No sinus tracts noted. No purulence, fluctuance, crepitus, bogginess noted. Malodor noted. Plantar wound measures approximately 1 cm x 1 cm x 1.5 cm. Plantar wound is not contiguous with dorsal wound. Wound edges do not undermine but are surrounded by hyperkeratosis. No sinus tracts, purulence, fluctuance, crepitus, bogginess, drainage, malodor noted. MUSCULOSKELETAL: No tenderness palpation to either wound mention above. Muscle strength 5 out of 5 bilateral. Gastric sole soleal equinus appreciated bilateral. LABS: Lab Results Component Value Date WBC 8.39 07/26/2020 HGB 10.9 (L) 07/26/2020 HCT 31.5 (L) 07/26/2020 MCV 86.8 07/26/2020 PLT 286 07/26/2020 Lab Results Component Value Date NA 131 (L) 07/26/2020 K 3.8 07/26/2020 CL 97 (L) 07/26/2020 BUN 21 07/26/2020 CREATININE 0.79 07/26/2020 No results found for: GLU Lab Results Component Value Date CALCIUM 9.0 07/26/2020 No results found for: MG No results found for: BILITOT, BILIDIR, AST, ALT, ALKPHOS, GGT No components found for: ESR Lab Results Component Value Date CRP 41.3 (H) 07/26/2020 No results found for: PREALBUMIN No results found for: HGBA1C COMPLEX DISCHARGE Date: 07/26/2020 Time: 2:51 PM Patient Name: Mikayla Pappas Date of : 1960 Sex: Male Discharge Planning Living Arrangements: Alone Support Systems: Family members, Friends/neighbors Assistance Needed: no Type of Residence: Private residence Prior to Admission Home Care Services: No Patient expects to be discharged to:: home Does the patient need discharge transport arranged?: No Current Home Equipment: Cane Anticipated HME: Undetermined Anticipated Home Care Needs: Undetermined Anticipated Discharge Plan Anticipated HME: Undetermined Anticipated Home Care Needs: Undetermined Potential for Readmission Potential for Readmission: No Discharge Readiness Expected Discharge Date: 07/29/20 Barriers to Discharge: Pending discharge order Spoke with patient in the room. Patient states that family can transport him home when he is ready for discharge. Patient would like [facility] for home health services if needed. He would like a shower chair and elevated toilet seat. Called [facility] HME liaison and notified him. Awaiting podiatry consult. documented in this encounter Associated Order(s): IP CONSULT TO CARDIOLOGY CONSULT NOTE Patient Name: Mikayla Pappas Admit Date: MR #: [id number] : 1960 Assessment and Plan: Other Abnormal EKG Assessment & Plan ekg shows evidence of LVH, RBBB. Plan: Check echo Elevated troponin Assessment & Plan Although the absolute value of the high sensitivity troponin(s) is elevated, the delta of subsequent troponins compared to the initial troponin is negative, indicating that etiology of the troponin elevation is not acute coronary syndrome. Chest pain Assessment & Plan Atypical chest pain. Plan: Order lexiscan cardiolite. Physicians: Greyson Dominguez MD (Family); No ref. provider found (Referring) Chief Complaint/Reason for Visit: Chest pain History of Present Illness: Mikayla Pappas is a 60 y.o. y/o male presenting from floor with c/o chest pain DATE OF SERVICE 10/21/2020 The patient is a 60-year-old male with no previous known cardiac history. He has a history of diabetes type 2. He presented to the hospital with urinary issues for which is also hospitalized recently. We are asked to see him because of complaints of chest pain. He has noted intermittent chest pain lasting approximately an hour at a time occurring a few times a week. There is no associated shortness of breath, diaphoresis or nausea. These symptoms are not exertional. Although his high sensitivity troponin was elevated, the delta was negative thus ruling out current acute coronary syndrome. I reviewed his ECG, which shows normal sinus rhythm with evidence of right bundle branch block and LVH. He denies any current chest pain. History: Past Medical History: Diagnosis Date Diabetes mellitus, type 2 (HCC) no AC at home, on insulin for 3 years Diabetic neuropathy (HCC) GERD (gastroesophageal reflux disease) no current meds History of cardiac cath 1990 for RFA due to WPW History of depression no current meds Hyperlipidemia Hypertension Obesity Open wound right 3rd toe Seizures (HCC) questionable when a child, no recurrence Sleep apnea, obstructive partial compliance with CPAP WPW (Nyfpa-Niidmitfu-Rzyfz syndrome) 1990 s/p RFA in 1990, no current bobbin presser f/u Past Surgical History: Procedure Laterality Date AMPUTATION FOOT Left 08/05/2020 Procedure: POSSIBLE AMPUTATION; Surgeon: Jet Calvillo DPM; Location: [facility] OR; Service: Podiatry AMPUTATION TOE(S) Right 08/03/2016 Procedure: RIGHT 3RD DIGIT AMPUTATION ; Surgeon: Jet Calvillo DPM; Location: [facility] OR; Service: CARDIAC CATHETERIZATION ablation for WPW CATHETER INSERTION SUPRAPUBIC N/A 08/16/2020 Procedure: CATHETER PLACEMENT OVER GUIDE; Surgeon: Paul Kim MD; [place] [facility] [place]; Service: Urology CYSTO DIRECT VISION INTERNAL URETHROTOMY N/A 08/16/2020 Procedure: CYSTOSCOPY URETERAL DILATION POSSIBLE DIRECT VISION INTERNAL URETHROTOMY; Surgeon: Paul Kim MD; [place] [facility] [place]; Service: Urology FOOT SURGERY Right 2nd toe partial amputation INCISION AND DRAINAGE FOOT AND ANKLE Left 07/29/2020 Procedure: LEFT FOOT ULCER INCISION AND DRAINAGE LEFT FOOT BONE DEBRIDEMENT W/ BIOPSY; Surgeon: Jet Calvillo DPM; Location: [facility] OR; Service: Podiatry INCISION AND DRAINAGE FOOT AND ANKLE Left 08/05/2020 Procedure: LEFT FOOT ULCER DEBRIDEMENT; Surgeon: Jet Calvillo DPM; Location: [facility] OR; Service: Podiatry Family History Problem Relation Age of Onset Diabetes Father Surgical complications Neg Hx Anesthesia problems Neg Hx Heart disease Neg Hx Clotting disorder Neg Hx Deep vein thrombosis Neg Hx Pulmonary embolism Neg Hx Social History Socioeconomic History Marital status: Spouse name: Not on file Number of children: Not on file Years of education: Not on file Highest education level: Not on file Occupational History Not on file Social Needs Financial resource strain: Not on file Food insecurity Worry: Not on file Inability: Not on file Transportation needs Medical: Not on file Non-medical: Not on file Tobacco Use Smoking status: Never Smoker Smokeless tobacco: Never Used Substance and Sexual Activity Alcohol use: No Drug use: No Sexual activity: Not on file Lifestyle Physical activity Days per week: Not on file Minutes per session: Not on file Stress: Not on file Relationships Social connections Talks on phone: Not on file Gets together: Not on file Attends orthodox service: Not on file Active member of club or organization: Not on file Attends meetings of clubs or organizations: Not on file Relationship status: Not on file Other Topics Concern Not on file Social History Narrative Not on file Allergy Information: I have reviewed the patient's allergies. Dilantin infatabs [phenytoin] Home Medications: Outpatient Medications as of 10/21/2020 Medication Sig amLODIPine (NORVASC) 10 MG tablet Take 1 (one) tablet (10 mg total) by mouth daily Start: 08/07/20. ascorbic acid, vitamin C, (ascorbic acid with lakesha hips) 500 MG tablet Take 500 mg by mouth daily . mwumqdg-cemgbjukegfbn-virhhbcc (EXCEDRIN MIGRAINE) 250-250-65 mg per tablet Take 1 tablet by mouth every 6 (six) hours as needed for pain. cyanocobalamin, vitamin B-12, (VITAMIN B-12 ORAL) Take 1 tablet by mouth daily . doxazosin (CARDURA) 4 MG tablet Take 4 mg by mouth daily . gabapentin (NEURONTIN) 300 MG capsule Take 1 (one) capsule (300 mg total) by mouth every 8 (eight) hours (Days supply per fill: 30) . glipiZIDE (GLUCOTROL XL) 10 MG 24 hr tablet Take 10 mg by mouth daily . insulin glargine (Basaglar KwikPen U-100 Insulin) 100 unit/mL (3 mL) InPn Inject 50 (fifty) Units under the skin nightly . losartan (COZAAR) 25 MG tablet Take 25 mg by mouth daily . oxybutynin (DITROPAN-XL) 10 MG 24 hr tablet Take 1 (one) tablet (10 mg total) by mouth daily . [] phenazopyridine (PYRIDIUM) 200 MG tablet Take 1 (one) tablet (200 mg total) by mouth 3 (three) times a day for 3 days . rosuvastatin (Crestor) 40 MG tablet Take 1 (one) tablet (40 mg total) by mouth every evening . alcohol swabs PadM Check your sugars up to 4 times a day . blood sugar diagnostic strips Check your sugars up to 4 times a day . blood-glucose meter Misc Check your sugars up to 4 times a day . insulin lispro (HumaLOG KwikPen Insulin) 100 unit/mL InPn For blood sugar 141- 180 give 2 units subcutaneoulsy, for 181-220 give 4 units, for 221-260 give 6 units, and for 261-300 give 8 units. . lancets Misc Check your sugars up to 4 times a day . pen needle, diabetic 32 gauge x 5/32 Ndle Change pen needles daily as needed up to 4 times. . sitagliptan-metFORMIN (JANUMET) 50-1,000 mg per tablet Take 1 tablet by mouth daily . Current Facility-Administered Medications: acetaminophen (TYLENOL) tablet 650 mg, 650 mg, Oral, Q4H PRN, Padmini Hernandez MD albuterol (PROVENTIL) 2.5 mg /3 mL (0.083 %) nebulizer solution 2.5 mg, 2.5 mg, Nebulization, Q6H PRN, Marco Quintana MD aminophylline injection 125 mg, 125 mg, Intravenous, Once in imaging, Marco Quintana MD amLODIPine (NORVASC) tablet 10 mg, 10 mg, Oral, Daily, Padmini Hernandez MD, 10 mg at 10/20/20 0829 atorvastatin (LIPITOR) tablet 80 mg, 80 mg, Oral, Nightly, Padmini Hernandez MD, 80 mg at 10/20/20 2153 ceFAZolin (ANCEF) IVPB 2 g (premix), 2,000 mg, Intravenous, Q8H, Padmini Hernandez MD, Last Rate: 100 mL/hr at 10/21/20 0903, 2,000 mg at 10/21/20 0903 doxazosin (CARDURA) tablet 4 mg, 4 mg, Oral, Daily, Padmini Hernandez MD, 4 mg at 10/20/20 0830 gabapentin (NEURONTIN) capsule 300 mg, 300 mg, Oral, Q8H KAM, Padmini Hernandez MD, 300 mg at 10/21/20 0522 insulin glargine (LANTUS) injection 20 Units, 20 Units, Subcutaneous, Nightly, Padmini Hernandez MD, 20 Units at 10/20/20 2335 insulin lispro (HumaLOG) injection 0-15 Units, 0-15 Units, Subcutaneous, at bedtime, Padmini Hernandez MD, 0 Units at 10/20/20 215 insulin lispro (HumaLOG) injection 0-30 Units, 0-30 Units, Subcutaneous, TID AC, Padmini Hernandez MD, 6 Units at 10/20/20 1630 naloxone (NARCAN) injection 0.1 mg, 0.1 mg, Intravenous, PRN AND Notify physician, , , Until Discontinued AND naloxone (NARCAN) injection 0.4 mg, 0.4 mg, Intravenous, PRN, Padmini Hernandez MD ondansetron (ZOFRAN-ODT) disintegrating tablet 4 mg, 4 mg, Oral, Q6H PRN OR ondansetron (ZOFRAN) injection 4 mg, 4 mg, Intravenous, Q6H PRN, Padmini Hernandez MD oxyCODONE (ROXICODONE) immediate release tablet 5 mg, 5 mg, Oral, Q6H PRN, Padmini Hernandez MD, 5 mg at 10/20/20 1712 phenazopyridine (PYRIDIUM) tablet 200 mg, 200 mg, Oral, TID, Padmini Hernandez MD, 200 mg at 10/20/202152 regadenoson (LEXISCAN) injection 0.4 mg, 0.4 mg, Intravenous, Once in imaging, Marco Quintana MD [COMPLETED] Insert peripheral IV, , , Once AND Saline lock IV, , , Once AND sodium chloride (PF) (NS) flush 5 mL, 5 mL, Intravenous, PRN AND sodium chloride 0.9% (NS), 0-150 mL/hr, Intravenous, PRN, Olga Lidia Jones DO, Last Rate: 100 mL/hr at 10/20/206, 100 mL/hr at 10/20/20 0007 tolterodine (DETROL LA) 24 hr capsule 2 mg, 2 mg, Oral, Daily, Padmini Shin Hernandez MD, 2 mg at 10/20/20 0830 Review of Systems: The following system(s) were reviewed and pertinent findings noted: All other systems reviewed and negative other than HPI Physical Examination: Vital Signs: BP 127/83 (BP Location: Right arm, Patient Position: Lying) Pulse 66 Temp 98.7 F (37.1 C) (Oral) Resp (!) 20 Ht 5' 8 Wt 83.3 kg (183 lb 10.3 oz) SpO2 98% BMI 27.92 kg/m General: Alert, cooperative, no distress, appears stated age Head: Normocephalic, without obvious abnormality, atraumatic Eyes: PERRL, conjunctiva/corneas clear, EOM's intact Throat: Lips, mucosa, and tongue normal; teeth and gums normal Neck: Supple, symmetrical, trachea midline, no adenopathy; thyroid: no enlargement/tenderness/nodules; no carotid bruit or JVD Back: Symmetric, no curvature, ROM normal, no CVA tenderness Lungs: Clear to auscultation bilaterally, respirations unlabored,normal respiratory effort Chest Wall: No tenderness or deformity Cardiovascular: Regular rate and rhythm, S1 and S2 normal, no murmur, rub or gallop; Abdomen: Soft, non-tender, bowel sounds active all four quadrants,no masses, no organomegaly Extremities: Normal, atraumatic, no cyanosis or edema Skin: Skin color, texture, turgor normal, no rashes or lesions Musculoskeletal: Full range of motion of all extremities; no joint edema Neurologic: Alert. Oriented x 3 Psych: Flat affect Laboratory and Additional Data Reviewed: Laboratory 10/21/20 9:10 AM Radiology 10/21/20 9:10 AM Cardiology 10/21/20 9:10 AM Medications 10/21/20 9:10 AM Transcriptions 10/21/20 9:10 AM Physical Therapy PHYSICAL THERAPY EVALUATION AND TREATMENT NOTE Treatment initiated during evaluation - treatment note attached. Skilled Therapy Needs After Discharge Anticipate Resolution of Current Assessment Limitations Including: (genralized weakness, deconditioning.) Are Skilled Therapy Services Needed After Discharge: Yes Intensity of Skilled Therapy: Up to 5 days per week Anticipated Duration of Skilled Therapy: Duration 10 - 30 days DME Recommendation: Wheelchair, Bedside commode DME Rationale: Patient's condition prevents him/her from accomplishing ADL without recommended equipment, Patient's condition creates an increased risk of safety hazard without recommended equipment, Unreasonable time frame to complete ADL without recommended equipment, Patient will require increased level of care without recommended equipment, Wheelchair - mobility limitation cannot be safely resolved with ambulatory aide, Commode - patient confined to single room(WC to navigate home.) Outcomes Measures Prior Function - Basic Mobility Raw Score: 24 Points Prior Function - Basic Mobility % Impaired: 0% functionally impaired AM-PAC - Basic Mobility Raw Score: 10 Points AM-PAC - Basic Mobility % Impaired: 71.92% functionally impaired Physical Therapy Assessment History: The following factors influence the patient's participation in the PT plan of care: Personal Factors: Age, Body Habitus, Apprehensive Toward Mobility Environmental Factors: Lives alone, Steps to enter home The following co-morbidities (from this admission or prior) influence the patient's participation in this plan of care: admitted with generalized weakness and hematuria in setting of recent urology and podiatry procedures. Significant history listed below may affect progress in plan of care. Number of History elements affecting this patient's PT plan of care: 3 or more Examination of Body Systems: The patient presents with: Musculoskeletal impairments: Functional Endurance Neurologic Impairments: Balance, Sensation. These impairments result in limitations of Gait, Functional Transfers, Stair-Climbing, Safety, Activity Tolerance. These impairments result in restrictions of Household mobility, Community mobility, Work-related activities, Leisure activities. Number of Body Systems elements affecting this patient's PT plan of care: 4 or more. Clinical Presentation: The patient's clinical presentation for this PT evaluation is unstable/unpredictable as evidenced by current PT documentation. Current deficits and co-morbidities listed above have affected mobility and ability to return to independent home without additional rehab intervention. Therapy Precautions Orthotic Devices: Yes Lower Extremity: Left, Cast / Postop Shoe(surgery 08/2020) Weight Bearing Status: X LLE: Wt bearing as tolerated General Rehab Precautions: Fall risk Balance Sitting Balance - Static: Sits without support for more than 30 seconds Standing Balance - Dynamic: (mod+1 with WW) Bed Mobility Supine to Sit: Mod Sit to Supine: Contact guard Transfers Sit to Stand: Min Pinball Machine Repairer: Wheeled walker Gait/Locomotion Gait Assistance: Mod Assistive Device: Wheeled walker Distance: 2 Feet(forward + 2' side stepping) Pattern: R decreased step length, L decreased step length, Ataxic Home Living Type of Home: House Home Layout: Multi-level(Split level) Bathroom Shower/Tub: Tub/shower unit Bathroom Toilet: Standard Bathroom Equipment: Toilet raiser(ETS only on one toilet on one level) Home Equipment: Wheeled Walker, Walker, Cane(Keeps walker on each level. Cane outside home.) Additional Comments: Pt reports increasing difficulty using walkers in home and getting them outside in community. Pt reports currently using cane to get into grocery stores and then using electric scooter. 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 Pt reports decline in functional abilities since then, especially with home management tasks. Pt also very worried about being able to return to work. 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, no current bobbin presser f/u Past Surgical History: Procedure Laterality Date AMPUTATION FOOT Left 08/05/2020 Procedure: POSSIBLE AMPUTATION; Surgeon: Jet Calvillo DPM; Location: [facility] OR; Service: Podiatry AMPUTATION TOE(S) Right 08/03/2016 Procedure: RIGHT 3RD DIGIT AMPUTATION ; Surgeon: Jet Calvillo DPM; Location: [facility] OR; Service: CARDIAC CATHETERIZATION ablation for WPW CATHETER INSERTION SUPRAPUBIC N/A 08/16/2020 Procedure: CATHETER PLACEMENT OVER GUIDE; Surgeon: Paul Kim MD; [place] [facility] [place]; Service: Urology CYSTO DIRECT VISION INTERNAL URETHROTOMY N/A 08/16/2020 Procedure: CYSTOSCOPY URETERAL DILATION POSSIBLE DIRECT VISION INTERNAL URETHROTOMY; Surgeon: Paul Kim MD; [place] [facility] [place]; Service: Urology FOOT SURGERY Right 2nd toe partial amputation INCISION AND DRAINAGE FOOT AND ANKLE Left 07/29/2020 Procedure: LEFT FOOT ULCER INCISION AND DRAINAGE LEFT FOOT BONE DEBRIDEMENT W/ BIOPSY; Surgeon: Jet Calvillo DPM; Location: [facility] OR; Service: Podiatry INCISION AND DRAINAGE FOOT AND ANKLE Left 08/05/2020 Procedure: LEFT FOOT ULCER DEBRIDEMENT; Surgeon: Jet Calvillo DPM; Location: [facility]; Service: Podiatry PHYSICAL THERAPY TREATMENT NOTE Total Treatment Time (Total Session Time): 20 Minutes Timed Code Treatment Minutes: 10 Minutes Neuromuscular Reeducation Skilled Intervention: Verbal cues for weight shifting and scooting to position center of gravity over base of support at edge of bed; instructed in use of WW to increase stability with standing mobility. Gait Training Skilled Intervention: Verbal cues for walker use, upright posture, and safety. Cues for proper distance to walker and maintaining position in walker during turning. Assist required for trunk support and walker management. Therapeutic Activities Bed Mobility Skilled Intervention: Verbal cues for hand placements and progression of transfer. Instructed in use of log roll technique for ease of transfer. Assist required for LE management and lateral trunk flexion. Transfers Skilled Intervention: Verbal cues for hand placements and progression to full upright. Facilitation at trunk to encourage forward weight shift over feet. Facilitation at trunk/hips to elicit/encourage extension in order to achieve and maintain stance inside wheeled walker. For complete objective data, detailed plan of care and patient education refer to: PT EVALUATION flow sheet, PT TREATMENT flow sheet, patient Plan of Care, Plan of Care progress note, and Patient Education. This note stands as the current Discharge Summary upon patient discharge from the hospital or completion of Physical Therapy Plan Occupational Therapy OCCUPATIONAL THERAPY EVALUATION NOTE Skilled Therapy Needs After Discharge Anticipate Resolution of Current Assessment Limitations Including: Pain, Mechanical Barriers Are Skilled Therapy Services Needed After Discharge: Yes Intensity of Skilled Therapy: Up to 5 days per week Anticipated Duration of Skilled Therapy: Duration 10 - 30 days DME Recommendation: Adaptive equipment kit, Tub seat, Elevated toilet seat DME Rationale: Patient's condition prevents him/her from accomplishing ADL without recommended equipment, Patient's condition creates an increased risk of safety hazard without recommended equipment Rehab Potential: Good, For goals Outcomes Measures Prior Function Daily Activity: Raw Score: 24 Prior Function Daily Activity % Impaired: 0% functionally impaired AM-PAC Daily Activity: Raw Score: 16 AM-PAC Daily Activity % Impaired: 53.32% functionally impaired Occupational Therapy Assessment The patient's current functional participation deficits are grooming, bathing, LE dressing, UE dressing, toileting, home management, functional mobility. This reduced independence will limit their life roles of premorbid level individual. The patient's co morbidities do affect patient performance in the above activities and roles. The performance deficits are a result of musculoskeletal, vascular, integumentary impairment(s) in generalized debility, left, lower extremity, global systems including strength, balance, coordination, acitvity tolerance, pain, termination, safety, sequencing, insight, and pain intolerance, knowledge deficit. The patient's home setup is a barrier, limitations of family / caregiver support is a barrier, limitations of transportation is a barrier for return to prior level of function. 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 During the assessment, minimal to moderate modification of task was required and several treatment options were identified in the plan of care. This consultation required expanded review of the medical and therapy history. Activity Tolerance Therapy Precautions Orthotic Devices: No Weight Bearing Status: X LLE: Wt bearing as tolerated(Post op shoe from recent foot surgery per pt) General Rehab Precautions: Fall risk Cognition Overall Cognitive Status: Impaired Arousal/Alertness: Appropriate responses to stimuli Orientation Level: Oriented X4, With cues Executive functioning: Insight, Planning / Organizing, Mod impairment Safety Judgment: Decreased awareness of need for assistance Problem Solving: Assistance required to identify errors made Attention: Attends to quiet environment Hearing Status: WFL Social Interaction: Cooperative, Appropriate(Mild confusion) Comments: Pt reports feeling groggy and heavy and cites confusion at this time. Pt states, They gave me a lot of meds and I haven't eaten. ADL/IADL Feeding: Independent Grooming : Min UE Bathing : Min LE Bathing : Max UE Dressing: Min LE Dressing: Max Toileting : Max Bed Mobility Rolling: Min Supine to Sit: Min Sit to Supine: Min Functional Transfers Sit to Stand: Min Home Living Type of Home: House Home Layout: Multi-level(Split level) Bathroom Shower/Tub: Tub/shower unit Bathroom Toilet: Standard Bathroom Equipment: Toilet raiser(ETS only on one toilet on one level) Home Equipment: Wheeled Walker, Walker, Cane(Keeps walker on each level. Cane outside home.) Additional Comments: Pt reports increasing difficulty using walkers in home and getting them outside in community. Pt reports currently using cane to get into grocery stores and then using electric scooter. Prior Level of Function Level of Craven: Independent with ADLs and functional transfers, Needs assistance with homemaking Lives With: Alone Receives Help From: Friend(s) Comments: Pt reports success with home health services, but they recently ended. Pt reports decline in functional abilities since then, especially with home management tasks. Pt also very worried about being able to return to work. Past Medical History: Diagnosis Date Diabetes mellitus, type 2 (HCC) no AC at home, on insulin for 3 years Diabetic neuropathy (HCC) GERD (gastroesophageal reflux disease) no current meds History of cardiac cath 1990 for RFA due to WPW History of depression no current meds Hyperlipidemia Hypertension Obesity Open wound right 3rd toe Seizures (HCC) questionable when a child, no recurrence Sleep apnea, obstructive partial compliance with CPAP WPW (Ywxrz-Zrbbfodcb-Gesce syndrome) 1990 s/p RFA in 1990, no current bobbin presser f/u Past Surgical History: Procedure Laterality Date AMPUTATION FOOT Left 08/05/2020 Procedure: POSSIBLE AMPUTATION; Surgeon: Jet Calvillo DPM; Location: [facility] OR; Service: Podiatry AMPUTATION TOE(S) Right 08/03/2016 Procedure: RIGHT 3RD DIGIT AMPUTATION ; Surgeon: Jet Calvillo DPM; Location: [facility] OR; Service: CARDIAC CATHETERIZATION ablation for WPW CATHETER INSERTION SUPRAPUBIC N/A 08/16/2020 Procedure: CATHETER PLACEMENT OVER GUIDE; Surgeon: Paul Kim MD; [place] [facility] [place]; Service: Urology CYSTO DIRECT VISION INTERNAL URETHROTOMY N/A 08/16/2020 Procedure: CYSTOSCOPY URETERAL DILATION POSSIBLE DIRECT VISION INTERNAL URETHROTOMY; Surgeon: Paul Kim MD; [place] [facility] [place]; Service: Urology FOOT SURGERY Right 2nd toe partial amputation INCISION AND DRAINAGE FOOT AND ANKLE Left 07/29/2020 Procedure: LEFT FOOT ULCER INCISION AND DRAINAGE LEFT FOOT BONE DEBRIDEMENT W/ BIOPSY; Surgeon: Jet Calvillo DPM; Location: [facility] OR; Service: Podiatry INCISION AND DRAINAGE FOOT AND ANKLE Left 08/05/2020 Procedure: LEFT FOOT ULCER DEBRIDEMENT; Surgeon: Jet Calvillo DPM; Location: [facility] OR; Service: Podiatry OCCUPATIONAL THERAPY TREATMENT NOTE Total Treatment Time (Total Session Time): 22 Minutes Timed Code Treatment Minutes: 18 Minutes Cognitive Skills Development Skilled Intervention: Educated pt on puropse/benefits of OT services; fair understanding demo'd. Self-Care / Home Management ADL/IADL Therapeutic Activities Bed Mobility Skilled Intervention: Verbal/tactile cues for step by step sequencing for safe and independent bed mobility. Pt sat EOB x6 min with fair dynamic balance and mild c/o dizziness. No nystagmus noted, but pt unable to hold gaze with therapist. Functional Transfers Skilled Intervention: Verbal/tactile cues to sequence safe functional TFs with w/w and to take several side steps toward HOB. For complete objective data, detailed plan of care and patient education refer to: OT EVALUATION flow sheet, OT TREATMENT flow sheet, patient Plan of Care, Plan of Care progress note, and Patient Education. This note stands as the current Discharge Summary upon patient discharge from the hospital or completion of Occupational Therapy Plan of Care. Associated Order(s): IP CONSULT TO ENTEROSTOMAL THERAPY Patient seen as consult regarding left foot wounds Left plantar foot wound, diabetic ulcer post op 08/05 with podiatry. Wound bed largely obscured with brown adherent material. Unable to determine if this is scabbing, eschar, or dry drainage and debris. Area presents with animal hair matted in this material. Small open area noted measuring approximately 0.5 x 0.3 x 0.4cm which appears to be red nongranular tissue. Area cleansed with saline, medihoney, adaptic and mepilex applied. Dorsal foot wound, with open area measuring 0.5 x 0.5 x 0.1cm with bright red nongranular tissue. Periwound with soft epithelial tissue as well as callus and dry brown drainage. Area cleansed with saline, medihoney adaptic and mepilex. Patient indicated he has not gone to a post op followup appointment, reminder added to AVS. Orders updated on chart. documented in this encounter Plan of Care - Jaqui Mark RN - 08/06/2020 4:01 AM EDTPlan of Care - Rashel Gonzalez RN - 08/05/2020 5:33 PM EDTQuick Note - Nate Cazares DPM - 08/05/2020 2:13 PM EDT Miscellaneous Notes (unrecog nized section and content) Patient education and plan of care reviewed Problem: Actual or potential alteration in health Goal: Absence of healthcare acquired conditions Outcome: Partially Met Problem: Skin Integrity - Impaired Goal: Absence of new skin breakdown Outcome: Partially Met Problem: Pain Goal: Manage acute pain Outcome: Partially Met Goal: Reduced pain sensation Outcome: Partially Met Goal: Achievement of comfort function goal Outcome: Partially Met Problem: Sensory Perception - Impaired Goal: Absence of continued neurologic deterioration signs and symptoms Outcome: Partially Met Problem: Falls, Risk of Goal: Absence of falls Outcome: Partially Met FOOT AND ANKLE SURGERY POST-OP PROGRESS NOTE ASSESSMENT: 59 y.o. y/o male POD#0 s/p right ulcer debridements with application of skin graft Pre-Procedure Diagnosis: foot ulcers, right foot PLAN: Dressing consisting of adaptic, lubricant, 4x4's, kerlix, and an SPENCER bandage placed intraoperatively, to remain CDI. NWB to RLE Pain orders adjusted, intermittent orders placed. DVT prophylaxis is to resume 24 hrs. . Further plan: discharge pending antibiotic recommendations and social media project manager. -Nate Cazares DPM Brief Post Operative Note Patient Name: Mikayla Pappas : 1960 (59 y.o.) Date of Service: 08/05/2020 CSN: [id number] Procedure(s): LEFT FOOT ULCER DEBRIDEMENT POSSIBLE AMPUTATION Pre-Operative Diagnoses: * LEFT FOOT ULCER Post-Operative Diagnoses: LEFT FOOT ULCERS Surgeon(s) and Role: * Jet Calvillo, [place]AT - Primary * Nate Cazares DPM - Resident - Assisting * John Tracy DPM - Resident - Assisting Anesthesiologist: Monalisa Nair MD CREW LEADER/CONTROL ROOM OPERATOR: Na Alaniz CRNA System Dispatcher: Jorge Ann RN; Boom Waterman RN Scrub Person: [facility] Vip[facility]; [facility] Anesthesia Specialist: Seun Louie Operative findings: DORSAL AND PLANTAR ULCERS WITHOUT PURULENT DRAINAGE; ACELL PASTE AND GRAFT Intra and immediate post-operative complications: NONE Type of anesthesia used: General Estimated blood loss: 1 mL Estimated urine output: Specimen(s): * No specimens in log * Implant(s): Implant Name Type Inv. Item Serial No. Cultural Historian Lot No. LRB No. Used Action PARTICLES 500MG MICRONIZED PORCINE MICROMATRIX MATRISTEM - [id number] Special Cost Item PARTICLES 500MG MICRONIZED PORCINE MICROMATRIX MATRISTEM [employer] [id number] Left 1 Implanted MATRIX 5 X 5CM WOUND 6-LAYER CYTAL - [id number] Special Cost Item MATRIX 5 X 5CM WOUND 6-LAYER CYTAL [employer] [id number] Left 1 Implanted Drain(s): * No LDAs found * Wound(s): Wound 07/29/20 Surgical Wound Foot Left (Active) Reassessment Unchd 08/05/20 0455 Dressing Status Intact;Dry;Clean 08/05/20 0855 Dressing Changed Changed 08/02/20 0749 Drainage Amount CRISTA 08/05/20 0855 Drainage Description Serosanguineous 07/31/20 0803 Odor None 08/04/20 0756 Wound Bed Characteristics CRISTA (Unable to assess) 08/05/20 0855 Primary Dressing Gauze roll 08/05/20 0855 Secondary Dressing Gauze roll 08/05/20 0855 Compression Dressing Spencer wrap 08/03/20 0831 Wound 08/05/20 Surgical Wound Foot Left (Active) [REMOVED] Wound 07/26/20 Chronic Diabetic Ulcer Foot Left;Plantar;Anterior (Removed) Reassessment Unchd 07/29/20 1830 Dressing Status Clean;Dry;Intact 07/29/202047 Dressing Changed Other (Comment) 07/29/202047 Drainage Amount Small 07/29/202047 Drainage Description Serosanguineous 07/29/202047 Odor None 07/29/202047 Moist Yellow Slough % 76-100% 07/26/201408 Dry Black Eschar % 26-50% 07/26/201408 Wound Bed Characteristics CRISTA (Unable to assess) 07/29/202047 Carli-wound Assessment Temperature WNL 07/29/202047 Secondary Dressing Gauze pad;Gauze roll 07/29/202047 Compression Dressing Spencer wrap 07/29/202047 Nate Cazares DPM 08/05/2020 2:10 PM OCCUPATIONAL THERAPY VISIT VARIANCE NOTE Attempted to see patient at this time, but unable secondary to: OT Visit Variance: Patient Unavailable (comment)(Pt off floor in OR). Will follow up as appropriate. POC reviewed. Debridement is documented in this record. Debridement documentation should include the following: excisional or non- excisional, location, instrument used, and depth removed. Clinical Indicators: ? 07/29 Op note: Using a rongeur, we then proceeded to debride all nonviable soft tissue that was overlying the ulceration. At this time, we were able to visualize the extensor tendon and we were able to visualize the capsular layer. Please further specify if the debridement was excisonal or non-excisional and the deepest tissue type removed. For Example: ? Excisional debridement from the left foot down to and including SQ tissue ? Excisional debridement of the left foot down to and including muscle ? Excisional debridement of the left foot down and including____(please specify deepest tissue removed) ? Non-excisional debridement of the left foot down to and including SQ tissue ? Non-excisional debridement of the left foot down to and including (please specify deepest tissue removed) ? Other (please specify) ? Unable to determine Thank you, Jorge Maya RN, BSN Clinical Policy Specialist [facility] [phone] After business hours you may contact Radha Gonzalez at [phone] (Weekdays until 10 PM and weekends 8 AM -10 PM) OCCUPATIONAL THERAPY VISIT VARIANCE NOTE Attempted to see patient at this time, but unable secondary to: OT Visit Variance: Patient Unavailable (comment). Pt unable to tolerate OT session 2* pain. RN stated that she recently gave pt pain meds and that additional meds will be given to help with pain. RN requested OT come back later this afternoon. Will follow up as appropriate. MIKAYLA PAPPAS [facility] [id number] 1960 DATE 07/29/2020 OPERATIVE REPORT SURGEON JET CALVILLO DPM ENGINEERING GEOLOGIST FLASH SANDOVAL DPM, RESIDENT ANESTHESIOLOGIST LAVELLE TENORIO MD PROCEDURE Left foot ulcer incision and drainage, debridement with bone biopsies. PREOPERATIVE DIAGNOSIS Left foot ulcerations. POSTOPERATIVE DIAGNOSE Left foot ulcerations. ANESTHESIA TYPE MAC. HEMOSTASIS Ankle tourniquet. ESTIMATED BLOOD LOSS 10 mL. MATERIALS None. INJECTABLES 10 cc of 1% lidocaine plain. SPECIMENS 1. Left foot swab sent to Microbiology for culture, aerobic and anaerobic. 2. 1st metatarsal left foot sent to Pathology. 3. Left medial cuneiform sent to pathology. 4. Left foot 2nd metatarsal head sent to Pathology. COMPLICATIONS None. INDICATION FOR PROCEDURE Mikayla Pappas is a 59-year-old male patient of Dr. Calvillo presenting with left foot ulceration and concern for osteomyelitis. The patient had MRI done with suspected osteomyelitis of the 1st metatarsal base and proximal shaft and clinically, it appeared that patient may have osteomyelitis of the 2nd metatarsal head. The patient has exhausted conservative measures at this time and has elected to undergo surgical intervention. Risks, benefits, indications, and complications were discussed at length with the patient. Consent was signed and placed in chart. No guarantees were given. PROCEDURE IN DETAIL The patient was brought back from preoperative holding area, placed on the OR table in a secure supine position. The above-mentioned anesthesia was administered per anesthesia team. Preoperative injection of 10 cc of 1% lidocaine plain was injected in a local block to the debridement and bone biopsy site. A well-padded ankle tourniquet was then applied to the left lower extremity. The left lower extremity was then prepped and draped utilizing aseptic technique and Betadine scrub. A time-out was performed and all were in agreement. The left lower extremity was then elevated and the tourniquet was inflated to 250 mm Hg. Attention was then directed to the left foot where there was a full- thickness fibrous sloughing ulceration on the dorsal medial aspect of the left foot. Using a rongeur, we then proceeded to debride all nonviable soft tissue that was overlying the ulceration. At this time, we were able to visualize the extensor tendon and we were able to visualize the capsular layer. Utilizing a Jamshidi and intraoperative fluoroscopy, we then proceeded to obtain bone biopsies of the base of the 1st metatarsal as well as the medial cuneiform separately. These were sent to Pathology. The bone quality of the 1st metatarsal base is noted to be soft, whereas the bone quality of the medial cuneiform was comparably more durable in nature. We then proceeded to debride the plantar wound, which under the 2nd metatarsal head. All nonviable soft tissue was removed and the 2nd metatarsal head was easily visualized. Using a separate Jamshidi needle, we then proceeded to obtain a bone sample of the 2nd metatarsal head. The Jamshidi needle had minimal resistance and the bone quality was soft. At this time, we proceeded to irrigate the surgical site utilizing Betadine within saline bucket as well as lavage. It is noteworthy that we obtained the medial cuneiform bone biopsy from a separate percutaneous incision and intra-operative fluoroscopy was used to confirm biopsies were taken from the correct bones. The wound was then dressed with Betadine-soaked Adaptic, 4x4s, ABDs, Kerlix, as well as an Spencer bandage. The tourniquet was then deflated and a brief hyperemic response was noted to the left lower extremity digits. The patient tolerated the procedure and anesthesia well without complication. The patient was transferred from the OR to PACU with vital signs stable and vascular status unchanged to the left lower extremity. The patient is to be readmitted to the floor per PACU protocol. We will continue to follow pathology report from the bone biopsies to determine if further surgical intervention is necessary. We anticipate the patient will require more proximal amputation in the future, but we will await final results prior. The patient is to be nonweightbearing to the left lower extremity. Dictated by FLASH SANDOVAL DPM, RESIDENT JET CALVILLO DPM D 07/29/2020 17:34 [id number] T 07/29/2020 20:34 SY/MODL Mikayla Pappas is POD0 s/p left foot I&D with bone biopsies - Restart DVT ppx on POD1 - NWB to LLE - Maintain Dressings. Reinforce PRN - Continue Zosyn and Vancomycin. PLSC taken. Tailor as cultures finalize. - Bone biopsies obtained, will continue to follow and plan for possible additional OR pending results. - Patient will require PT/OT evaluation, Pain control, medical clearance. -Flash Sandoval DPM Brief Post Operative Note Patient Name: Mikayla Pappas : 1960 (59 y.o.) Date of Service: 07/29/2020 [facility]: [id number] Procedure(s): LEFT FOOT ULCER INCISION AND DRAINAGE LEFT FOOT BONE DEBRIDEMENT W/ BIOPSY Pre-Operative Diagnoses: * LEFT FOOT ULCER Post-Operative Diagnoses: same Surgeon(s) and Role: * Jet Calvillo DPM - Primary * Flash Sandoval DPM - Resident - Assisting Anesthesiologist: Lavelle Tenorio MD CREW LEADER/CONTROL ROOM OPERATOR: Yumiko Waite CRNA System Dispatcher: Winter Hector RN; Bere Tan RN; Frances Robbins RN System Dispatcher Relief: Belinda Adams RN Scrub Person: [facility] Anesthesia Specialist: Seun Louie Operative findings: soft bone quality sub 2nd metatarsal and metatarsal base, sent to path, likely osteomyelitis Intra and immediate post-operative complications: none Type of anesthesia used: General, Monitor Anesthesia Care Estimated blood loss: 10 mL Estimated urine output: Specimen(s): ID Type Source Tests Collected by Time Destination 1 : left foot Swab Foot, Left WOUND AEROBIC CULTURE, WOUND ANAEROBIC CULTURE Jet Jm Burns, [facility] 07/29/2020 1451 A : first metatarsal left foot Bone Foot, Left TISSUE EXAM Jet Calvillo, [facility] 07/29/2020 1442 B : left medial cuneiform Bone Foot, Left TISSUE EXAM Jet Jm Burns, [facility] 07/29/2020 1444 C : left foot second metatarsal Bone Foot, Left TISSUE EXAM Jet Jm Burns, [facility] 07/29/2020 1446 Implant(s): * No implants in log * Drain(s): * No LDAs found * Wound(s): Wound 07/26/20 Chronic Diabetic Ulcer Foot Left;Plantar;Anterior (Active) Reassessment Unchd 07/28/20 1639 Dressing Status Dry;Clean;Intact 07/29/20 0805 Dressing Changed Other (Comment) 07/28/202030 Drainage Amount None 07/29/20 0805 Odor None 07/29/20 0805 Moist Yellow Slough % 76-100% 07/26/20 1409 Dry Black Eschar % 26-50% 07/26/20 1409 Wound Bed Characteristics CRISTA (Unable to assess) 07/29/20 0805 Carli-wound Assessment Temperature WNL 07/29/20 0805 Secondary Dressing Gauze roll;Gauze pad 07/29/20 0805 Compression Dressing Spencer wrap 07/29/20 0805 Wound 07/29/20 Surgical Wound Foot Left (Active) Flash Sandoval DPM 07/29/2020 2:59 PM Problem: Actual or potential alteration in health Goal: Absence of healthcare acquired conditions Outcome: Partially Met Problem: Actual or potential alteration in health Goal: Knowledge of Interdisciplinary Plan of Care Outcome: Partially Met Problem: Actual or potential alteration in health Goal: Knowledge of Enviroment Outcome: Partially Met Problem: Skin Integrity - Impaired Goal: Absence of new skin breakdown Outcome: Partially Met Problem: Actual or potential alteration in health Goal: Knowledge of Interdisciplinary Plan of Care Outcome: Partially Met Problem: Breathing Pattern - Ineffective Goal: Effective breathing pattern Outcome: Partially Met Note: Medications: Orders: Respiratory Orders (From admission, onward) Start Ordered 07/27/20 1312 Incentive spirometry Until discontinued 07/27/20 1311 Unscheduled AutoPAP As needed (RT) Question: FIO2 Answer: RT to titrate 07/27/20 1311 Problem: Actual or potential alteration in health Goal: Absence of healthcare acquired conditions Outcome: Partially Met Goal: Knowledge of Interdisciplinary Plan of Care Outcome: Partially Met Goal: Knowledge of Enviroment Outcome: Partially Met Problem: Skin Integrity - Impaired Goal: Wound healing Outcome: Partially Met Goal: Absence of new skin breakdown Outcome: Partially Met Problem: Actual or potential alteration in health Goal: Absence of healthcare acquired conditions Outcome: Partially Met Goal: Knowledge of Interdisciplinary Plan of Care Outcome: Partially Met Goal: Knowledge of Enviroment Outcome: Partially Met Problem: Pain Goal: Manage acute pain Outcome: Partially Met Goal: Manage chronic pain Outcome: Partially Met Goal: Reduced pain sensation Outcome: Partially Met Goal: Achievement of comfort function goal Outcome: Partially Met Problem: Activity Intolerance - Risk of Goal: Able to perform prescribed physical activity Outcome: Partially Met Problem: Bowel Function - Altered Goal: Bowel function within specified parameters Outcome: Partially Met Problem: Breathing Pattern - Ineffective Goal: Effective breathing pattern Outcome: Partially Met Problem: Fluid Volume Imbalance, Risk of Goal: Absence of imbalanced fluid volume signs and symptoms Outcome: Partially Met Goal: Balanced intake and output Outcome: Partially Met Problem: Infection - Risk of, Surgical Site Infection Goal: Absence of surgical site infection Outcome: Partially Met Problem: Urinary Retention Goal: Urinary elimination within specified parameters Outcome: Partially Met Problem: Venous Thromboembolism, Risk of Goal: Absence of venous thromboembolism Outcome: Partially Met Problem: Infection - Risk of, Urinary Catheter-Associated Urinary Tract Infection Goal: Absence of catheter associated urinary tract infection Outcome: Partially Met Problem: Plan for Discharge Goal: Knowledge of discharge plan and instructions Outcome: Partially Met Problem: Sensory Perception - Impaired Goal: Absence of continued neurologic deterioration signs and symptoms Outcome: Partially Met Goal: Absence of physical injury Outcome: Partially Met Care plans reviewed documented in this encounter Per [facility], no beds immediately available at [facility] for patient. He has already been accepted by the hospital medicine service and Dr. Fournier has agreed to urology consultation. Informed that bed may not be available until around noon. Patient updated and aware. Continues to urinate frequently. No evidence of urinary outflow obstruction. All home medications ordered along with appropriate as needed medications to ensure comfort in the interim. Plan remains to transfer to [place] as soon as possible. documented in this encounter This RN called report to SNF in [place]. Problem: Falls, Risk of Goal: Absence of falls Outcome: Met Problem: Pressure Ulcer - Risk of Goal: Absence of pressure ulcer Outcome: Met Problem: Pain Goal: Manage acute pain Outcome: Partially Met CAT C Problem: Actual or potential alteration in health Goal: Knowledge of Enviroment Outcome: Met Problem: Pain Goal: Reduced pain sensation Outcome: Met Problem: Actual or potential alteration in health Goal: Absence of healthcare acquired conditions Outcome: Partially Met Goal: Knowledge of Interdisciplinary Plan of Care Outcome: Partially Met Problem: Pain Goal: Manage acute pain Outcome: Partially Met Goal: Manage chronic pain Outcome: Partially Met Goal: Achievement of comfort function goal Outcome: Partially Met Problem: Falls, Risk of Goal: Absence of falls Outcome: Partially Met Problem: Pressure Ulcer - Risk of Goal: Absence of pressure ulcer Outcome: Partially Met Patient returned from echo. No acute complaints related to his catheter OCCUPATIONAL THERAPY VISIT VARIANCE NOTE Attempted to see patient at this time, but unable secondary to: OT Visit Variance: Patient Unavailable- patient in intervention radiology. Will follow up as appropriate. Associated Problem(s): Abnormal EKG ekg shows evidence of LVH, RBBB. Plan: Check echo Associated Problem(s): Elevated troponin Although the absolute value of the high sensitivity troponin(s) is elevated, the delta of subsequent troponins compared to the initial troponin is negative, indicating that etiology of the troponin elevation is not acute coronary syndrome. Associated Problem(s): Chest pain Atypical chest pain. Plan: Order lexiscan cardiolite. Problem: Pressure Ulcer - Risk of Goal: Absence of pressure ulcer Outcome: Not Met Problem: Actual or potential alteration in health Goal: Absence of healthcare acquired conditions Outcome: Partially Met Goal: Knowledge of Interdisciplinary Plan of Care Outcome: Partially Met Goal: Knowledge of Enviroment Outcome: Partially Met Problem: Pain Goal: Manage acute pain Outcome: Partially Met Goal: Manage chronic pain Outcome: Partially Met Goal: Reduced pain sensation Outcome: Partially Met Goal: Achievement of comfort function goal Outcome: Partially Met Problem: Falls, Risk of Goal: Absence of falls Outcome: Partially Met Problem: Pressure Ulcer - Risk of Goal: Absence of pressure ulcer Outcome: Not Met Associated Problem(s): Urinary retention 60 yr M with history of overactive bladder, depression with previous SI, IDDM2, LORENA and HTN with hospital stay 08/15-08/18 for gross hematuria and urinary retention s/p meatal dilation who presented to [facility] with hematuria. -Seen by our service while hospitalized in August 2020 d/t difficult todd placement due to meatal stenosis, urinary rtn with bl hydro, and hematuria. He underwent cystoscopy, dilation of meatal stenosis, bladder biopsies due to findings of very inflamed, erythematous, edematous bladder on 08/16/20. Pathology revealed Urothelial mucosa with mild atypia, inflammation and congestion. -Patient was then evaluated 10/17 at [place] ED due to urinary urgency, frequency, leakage, and dysuria. He was found to be in urinary retention and todd catheter was placed. CT ab/p 10/17 noted markedly distended bladder and bilateral hydronephrosis. Wbc and cr were wnl. He was discharged with pyridium and course of Keflex and instructed to follow up with Urology. -Patient was evaluated in the office 10/19 by myself. He reported the todd catheter placed in [place] had fallen out. He was experiencing flank pain, and aforementioned urinary symptoms. I placed a 16 fr coude catheter (he had a little meatal narrowing I was able to bypass with the catheter) with a return of 1500 urine pyridium orange in color. Patient was instructed to go to the ER for further evaluation with blood work and due to concern for infection, and overall did not appear well (weak, with a cough, and dry heaves) -Patient was transferred to [place] per ambulance yesterday. He reports development of some hematuria in his catheter and felt chilled. -Wbc and Cr wnl. Gallo cultures are pending. He has been afebrile and VSS. Urine is draining at ease per catheter with mild hematuria noted/pyridium orange in color. He is on Ancef and pyridium -DM type II with A1C of 13.5% (07/2020) -E. Coli UTI per Ucx 10/19. BCx NGTD. Gallo sensitive, on ancef. Plan: Maintain todd catheter at discharge. Continue abx for UTI for 14 days. Patient will ultimately need UDNs which have been arranged in our office to assess his bladder function as there is concern for possible neurogenic bladder contributing to his urinary retention. No further recommendations. Follow up as scheduled. Please provide leg bag and go over todd catheter care prior to discharge home. Problem: Actual or potential alteration in health Goal: Absence of healthcare acquired conditions Outcome: Partially Met Goal: Knowledge of Interdisciplinary Plan of Care Outcome: Partially Met Goal: Knowledge of Enviroment Outcome: Partially Met Problem: Pain Goal: Manage acute pain Outcome: Partially Met Goal: Manage chronic pain Outcome: Partially Met Goal: Reduced pain sensation Outcome: Partially Met Goal: Achievement of comfort function goal Outcome: Partially Met Problem: Falls, Risk of Goal: Absence of falls Outcome: Partially Met 4 eye skin assessment completed by Kenyatta Fung and Jossy Moreland. Patient has wound on to of left foot with small amount of clear drainage, and the bottom of left foot no drainage, scabbed over. ED Attestation I personally saw, evaluated, and examined the patient. I reviewed and agreed with the resident's findings, including all diagnostic interpretations and treatment plans as documented. I was present during lozano portions of separately performed procedures. I agree with the physical findings, management, clinical impression and disposition. In brief, Mikayla is a 60 y.o. male who presents with a chief complaint of Hematuria. Patient well known to myself from prior encounter in August. He is here with diffuse myalgias, arthralgias, fevers and chills. Maximum temperature 100.1 here and only subjective at home. Patient with recent diagnosis of gross hematuria and then suffered urinary retention. Seen by Dr. Badillo of urologist morning and had Todd catheter changed out at that time. Large amount of grossly bloody urine in Todd catheter bag upon arrival. Also tachycardic but no hypotension. No particular upper respiratory symptoms outside of cough which he has had for greater than 1 week and has now been tested negative for COVID-19 as a result of that symptom. Otherwise just systemic and urinary symptoms. Suspect this is urosepsis picture. Fluid resuscitation and IV antibiotics initiated. Patient being [place] [facility] [place]. Medications Administered (if any) Medications sodium chloride (PF) (NS) flush 5 mL (has no administration in time range) And sodium chloride 0.9% (NS) (has no administration in time range) ceFAZolin (ANCEF) IVPB 2 g (premix) (has no administration in time range) insulin lispro (HumaLOG) injection 0-15 Units (has no administration in time range) insulin glargine (LANTUS) injection 20 Units (has no administration in time range) insulin lispro (HumaLOG) injection 0-30 Units (has no administration in time range) acetaminophen (TYLENOL) tablet 650 mg (has no administration in time range) ondansetron (ZOFRAN-ODT) disintegrating tablet 4 mg (has no administration in time range) Or ondansetron (ZOFRAN) injection 4 mg (has no administration in time range) amLODIPine (NORVASC) tablet 10 mg (has no administration in time range) doxazosin (CARDURA) tablet 4 mg (has no administration in time range) gabapentin (NEURONTIN) capsule 300 mg (has no administration in time range) tolterodine (DETROL LA) 24 hr capsule 2 mg (has no administration in time range) phenazopyridine (PYRIDIUM) tablet 200 mg (has no administration in time range) atorvastatin (LIPITOR) tablet 80 mg (has no administration in time range) oxyCODONE (ROXICODONE) immediate release tablet 5 mg (has no administration in time range) naloxone (NARCAN) injection 0.1 mg (has no administration in time range) And naloxone (NARCAN) injection 0.4 mg (has no administration in time range) acetaminophen (TYLENOL) tablet 975 mg (975 mg Oral Given 10/19/20 1643) lactated ringers bolus 2,052 mL (0 mL/kg 68.4 kg (Amboy) Intravenous Stopped 10/19/20 1900) ceFAZolin (ANCEF) IVPB 2 g (premix) (0 mg Intravenous Stopped 10/19/20 1729) Laboratory Results Labs Reviewed URINALYSIS - Abnormal; Notable for the following components: Result Value Color, Urine Red (*) Clarity, Urine Cloudy (*) Protein, Urine 100 (*) Glucose, Urine 150 (*) Blood, Urine Large (*) Leukocyte Esterase, Urine Small (*) WBCs, Urine >180 (*) RBCs, Urine >180 (*) Bacteria, Urine Many (*) All other components within normal limits Narrative: Microscopic examination is performed on all urinalysis samples and only positive findings are reported. The test for blood on the chemical analytic portion of urinalysis may also be positive due to hemoglobinuria and myoglobinuria and if red blood cells are present they are quantified by microscopic examination. COMPREHENSIVE METABOLIC PANEL - Abnormal; Notable for the following components: Glucose 267 (*) All other components within normal limits Narrative: The eGFR should be used for monitoring renal function only and not for medication dosing. PT/INR - Abnormal; Notable for the following components: Protime (PT) 14.6 (*) INR 1.2 (*) All other components within normal limits Narrative: During the induction phase of oral anticoagulation, the INR may not reflect the anticoagulation status of the patient. Therapeutic ranges for INR's are: Most clinical situations: INR 2.0-3.0 Mechanical Prosthetic Valve: INR 2.5-3.5 Critical: INR >5.0 CBC WITH AUTO DIFFERENTIAL - Abnormal; Notable for the following components: WBC 12.87 (*) RBC 4.42 (*) Hemoglobin 13.0 (*) Hematocrit 38.1 (*) Neutrophils Abs 11.20 (*) Lymphocytes Abs 0.68 (*) All other components within normal limits LACTIC ACID, PLASMA - Normal URINE AEROBIC CULTURE BLOOD CULTURE AEROBIC/ANAEROBIC BLOOD CULTURE AEROBIC/ANAEROBIC CBC AND DIFFERENTIAL Narrative: The following orders were created for panel order CBC w/ Diff. Procedure Abnormality Status --------- ------ CBC Auto Differential[[id number]] Abnormal Final result Please view results for these tests on the individual orders. Imaging Results XR Chest 1 View Final Result No significant findings in the chest. Workstation ID: [id number] Procedures . 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 Missed Vi sit Discipline -Mcc Problems Problem Start Date Status Goals Interventions Abnormal Findings Disciplines: Mcc, Physical Therapy, Occupational Therapy, Speech Therapy, Home Health Aide, Medical Social Work, Spiritual Care, Art Therapy, Massage Therapy, Registered Dietitian, Student - Medical Social Work 08/09/2020 Active 1 goal linked to scheduled/documented intervention 1 goal intervention scheduled/documented in this visit Abnormal Findings Disciplines: Mcc, Physical Therapy, Occupational Therapy, Speech Therapy, Home Health Aide, Medical Social Work, Spiritual Care, Art Therapy, Massage Therapy, Registered Dietitian, Student - Medical Social Work 08/10/2020 Active 1 goal linked to scheduled/documented intervention 1 goal intervention scheduled/documented in this visit Home Medication Management Disciplines: Mcc 08/10/2020 Active 1 goal linked to scheduled/documented intervention 2 goal interventions scheduled/documented in this visit Learning/Teaching Needs - Wound Care Disciplines: Mcc 08/10/2020 Active 1 goal linked to scheduled/documented intervention 2 goal interventions scheduled/documented in this visit Open Wound Care Disciplines: Mcc 08/10/2020 Active 1 goal linked to scheduled/documented intervention 1 goal intervention scheduled/documented in this visit Skilled Assessment Disciplines: Mcc 08/10/2020 Active 1 goal linked to scheduled/documented intervention 4 goal interventions scheduled/documented in this visit Goals Goal Associated Problem Outcome Goal Met? Visit Notes Assessment findings goal Abnormal Findings No Medication management goal Home Medication Management No Wound care education goal Learning/Teaching Needs - Wound Care No Wound care goal Open Wound Care No Rehospitalization joint replacement goal Skilled Assessment No Interventions Intervention Associated Problem/Goal Status Variance Visit Notes Skilled observation and assessment Problem:Abnormal Findings Goal:Assessment findings goal Scheduled Report abnormal assessment to physician Problem:Abnormal Findings Goal:Assessment findings goal Scheduled Medication box Problem:Home Medication Management Goal:Medication management goal Scheduled Teach medication management Problem:Home Medication Management Goal:Medication management goal Scheduled Instruct on the signs and symptoms of infection Problem:Learning/Teaching Needs - Wound Care Goal:Wound care education goal Scheduled Skilled assessment nutrition Problem:Learning/Teaching Needs - Wound Care Goal:Wound care education goal Scheduled Wound care Problem:Open Wound Care Goal:Wound care goal Scheduled Obtain pulse oximetry Problem:Skilled Assessment Goal:Rehospitalization joint replacement goal Scheduled 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 Problem:Skilled Assessment Goal:Rehospitalization joint replacement goal Scheduled Skilled observation and assessment general assessment Problem:Skilled Assessment Goal:Rehospitalization joint replacement goal Scheduled Teaching-disease process r/t Wound Care Problem:Skilled Assessment Goal:Rehospitalization joint replacement goal Scheduled Visit Details 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 Discipline -Physical Therapy Problems Problem Start Date Status Goals Interventions AP01- Decreased Knowledge of Medication Management Disciplines: Physical Therapy 08/09/2020 Active 1 goal linked to scheduled/documented intervention 3 goal interventions scheduled/documented in this visit AP03- Decreased Knowledge of Edema Control Disciplines: Physical Therapy 08/09/2020 Active 1 goal linked to scheduled/documented intervention 1 goal intervention scheduled/documented in this visit AP04- Disruption of Skin Integrity Disciplines: Physical Therapy 08/09/2020 Active 1 goal linked to scheduled/documented intervention 2 goal interventions scheduled/documented in this visit AP07- Decreased Knowledge of Home Safety Disciplines: Physical Therapy 08/09/2020 Active 1 goal linked to scheduled/documented intervention 1 goal intervention scheduled/documented in this visit Abnormal Findings Disciplines: Mcc, Physical Therapy, Occupational Therapy, Speech Therapy, Home Health Aide, Medical Social Work, Spiritual Care, Art Therapy, Massage Therapy, Registered Dietitian, Student - Medical Social Work 08/09/2020 Active 1 goal linked to scheduled/documented intervention 1 goal intervention scheduled/documented in this visit Abnormal Findings Disciplines: Mcc, Physical Therapy, Occupational Therapy, Speech Therapy, Home Health Aide, Medical Social Work, Spiritual Care, Art Therapy, Massage Therapy, Registered Dietitian, Student - Medical Social Work 08/10/2020 Active 1 goal linked to scheduled/documented intervention 1 goal intervention scheduled/documented in this visit PT14- Decreased Strength Disciplines: Physical Therapy 08/09/2020 Active 1 goal linked to scheduled/documented intervention 1 goal intervention scheduled/documented in this visit PT20- Decreased Ambulation Ability Disciplines: Physical Therapy 08/09/2020 Active 1 goal linked to scheduled/documented intervention 1 goal intervention scheduled/documented in this visit PT24- Decreased Balance/Increased Fall Risk Disciplines: Physical Therapy 08/09/2020 Active 1 goal linked to scheduled/documented intervention 1 goal intervention scheduled/documented in this visit Goals Goal Associated Problem Outcome Goal Met? Visit Notes Medication management education goal AP01- Decreased Knowledge of Medication Management No Edema education goal AP03- Decreased Knowledge of Edema Control No Skin integrity goal AP04- Disruption of Skin Integrity No Home safety/fall prevention education goal AP07- Decreased Knowledge of Home Safety No Assessment findings goal Abnormal Findings No Strength goal PT14- Decreased Strength No Ambulation goal PT20- Decreased Ambulation Ability No Balance/Fall risk goal PT24- Decreased Balance/Increased Fall Risk No Interventions Intervention Associated Problem/Goal Status Variance Visit Notes Assess for medication changes and observe medication labels Problem:AP01- Decreased Knowledge of Medication Management Goal:Medication management education goal Scheduled Instruct in high risk medication management for compliance and knowledge Problem:AP01- Decreased Knowledge of Medication Management Goal:Medication management education goal Scheduled Instruct in medication purpose/side effects Problem:AP01- Decreased Knowledge of Medication Management Goal:Medication management education goal Scheduled Assess/Instruct in edema management techniques Problem:AP03- Decreased Knowledge of Edema Control Goal:Edema education goal Scheduled Assess for lower extremity lesions and instruct in diabetic foot care Problem:AP04- Disruption of Skin Integrity Goal:Skin integrity goal Scheduled Assess skin integrity and instruct in treatment of non-intact skin/pressure relief, including incision and graft site care, as appropriate Problem:AP04- Disruption of Skin Integrity Goal:Skin integrity goal Scheduled Assess/Instruct in home safety/fall prevention strategies Problem:AP07- Decreased Knowledge of Home Safety Goal:Home safety/fall prevention education goal Scheduled Skilled observation and assessment Problem:Abnormal Findings Goal:Assessment findings goal Scheduled Report abnormal assessment to physician Problem:Abnormal Findings Goal:Assessment findings goal Scheduled Assess/Instruct in therapeutic exercises and perform manual techniques to improve functional ROM. Problem:PT14- Decreased Strength Goal:Strength goal Scheduled Assess/Instruct in safe gait techniques in home. Problem:PT20- Decreased Ambulation Ability Goal:Ambulation goal Scheduled Assess/Instruct in balance and fall prevention techniques Problem:PT24- Decreased Balance/Increased Fall Risk Goal:Balance/Fall risk goal Scheduled Visit Details Visit Type -SN HH Initial Ev aluation Discipline -Mcc Interventions Intervention Associated Problem/Goal Status Variance Visit Notes Skilled observation and assessment Problem:Abnormal Findings Goal:Assessment findings goal Completed Skilled observation and assessment due to recent hospitalization. Report abnormal assessment to physician Problem:Abnormal Findings Goal:Assessment findings goal Completed Medication box Problem:Home Medication Management Goal:Medication management goal Completed Patient to fill medication box every Saturday. SN to instruct Patient and monitor for proper filling and administration. Teach medication management Problem:Home Medication Management Goal:Medication management goal Completed Assess Patient ability to manage medications. Assess Patient knowledge of drug allergies, dose/route/frequency, new or changed medications, classification, reason for taking, effectiveness, drug interactions, food interactions, side effects/adverse reactions, contraindications, duplicative therapy, lab tests required, and ability to use pill box and/or medication list. Instruct on the signs and symptoms of infection Problem:Learning/[place] Needs - Wound Care Goal:Wound care education goal Completed Instruct Patient in strategies to prevent infection:frequent/pro per hand-washing techniques, Standard precautions, avoid crowds and persons with known infections, staying current with immunizations, s/s of infection, use of incentive spirometer, use of antibiotics and encourage adequate diet and fluid intake. Skilled assessment nutrition Problem:Learning/[place] Needs - Wound Care Goal:Wound care education goal Completed Wound care Problem:Open Wound Care Goal:Wound care goal Completed dressing removed and discarded. wounds cleansed with ns, patted dry. ns moistened gauze applied to top and bottom of foot covered with dsd and secured with tape. pt rina well. See Wound Assessment form for measurements and status of wound. Obtain pulse oximetry Problem:Skilled Assessment Goal:Rehospitalizatio n joint replacement goal Completed 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 Problem:Skilled Assessment Goal:Rehospitalizatio n joint replacement goal Completed Skilled observation and assessment general assessment Problem:Skilled Assessment Goal:Rehospitalizatio n joint replacement goal Completed SN to perform general assessment to include height, weight, vital signs, and temperature; General assessment of systems: pulmonary, cardiovascular, neurologic, gastrointestinal, musculoskeletal, renal/urinary and integumentary and report any abnormalities or concerns to the physician. Teaching-disease process r/t Wound Care Problem:Skilled Assessment Goal:Rehospitalizatio n joint replacement goal Completed SN to visit for teaching and training related to wound care. Visit Details Visit Type -PT OASIS Start o f Care Discipline -Physical Therapy Problems Problem Start Date Status Goals Interventions AP01- Decreased Knowledge of Medication Management Disciplines: Physical Therapy 08/09/2020 Active 1 goal linked to scheduled/documented intervention 3 goal interventions scheduled/documented in this visit AP03- Decreased Knowledge of Edema Control Disciplines: Physical Therapy 08/09/2020 Active 1 goal linked to scheduled/documented intervention 1 goal intervention scheduled/documented in this visit AP04- Disruption of Skin Integrity Disciplines: Physical Therapy 08/09/2020 Active 1 goal linked to scheduled/documented intervention 2 goal interventions scheduled/documented in this visit AP07- Decreased Knowledge of Home Safety Disciplines: Physical Therapy 08/09/2020 Active 1 goal linked to scheduled/documented intervention 1 goal intervention scheduled/documented in this visit Abnormal Findings Disciplines: Mcc, Physical Therapy, Occupational Therapy, Speech Therapy, Home Health Aide, Medical Social Work, Spiritual Care, Art Therapy, Massage Therapy, Registered Dietitian, Student - Medical Social Work 08/09/2020 Active 1 goal linked to scheduled/documented intervention 1 goal intervention scheduled/documented in this visit PT14- Decreased Strength Disciplines: Physical Therapy 08/09/2020 Active 1 goal linked to scheduled/documented intervention 1 goal intervention scheduled/documented in this visit PT20- Decreased Ambulation Ability Disciplines: Physical Therapy 08/09/2020 Active 1 goal linked to scheduled/documented intervention 1 goal intervention scheduled/documented in this visit PT24- Decreased Balance/Increased Fall Risk Disciplines: Physical Therapy 08/09/2020 Active 1 goal linked to scheduled/documented intervention 1 goal intervention scheduled/documented in this visit Goals Goal Associated Problem Outcome Goal Met? Visit Notes Medication management education goal AP01- Decreased Knowledge of Medication Management No Edema education goal AP03- Decreased Knowledge of Edema Control No Skin integrity goal AP04- Disruption of Skin Integrity No Home safety/fall prevention education goal AP07- Decreased Knowledge of Home Safety No Assessment findings goal Abnormal Findings No Strength goal PT14- Decreased Strength No Ambulation goal PT20- Decreased Ambulation Ability No Balance/Fall risk goal PT24- Decreased Balance/Increased Fall Risk No Interventions Intervention Associated Problem/Goal Status Variance Visit Notes Assess for medication changes and observe medication labels Problem:AP01- Decreased Knowledge of Medication Management Goal:Medication management education goal Completed Instruct in high risk medication management for compliance and knowledge Problem:AP01- Decreased Knowledge of Medication Management Goal:Medication management education goal Completed Instruct in medication purpose/side effects Problem:AP01- Decreased Knowledge of Medication Management Goal:Medication management education goal Completed Assess/Instruct in edema management techniques Problem:AP03- Decreased Knowledge of Edema Control Goal:Edema education goal Completed Assess for lower extremity lesions and instruct in diabetic foot care Problem:AP04- Disruption of Skin Integrity Goal:Skin integrity goal Completed Assess skin integrity and instruct in treatment of non-intact skin/pressure relief, including incision and graft site care, as appropriate Problem:AP04- Disruption of Skin Integrity Goal:Skin integrity goal Completed Assess/Instruct in home safety/fall prevention strategies Problem:AP07- Decreased Knowledge of Home Safety Goal:Home safety/fall prevention education goal Completed Skilled observation and assessment Problem:Abnormal Findings Goal:Assessment findings goal Completed Skilled observation and assessment due to alteration in patient's plan of treatment. Assess/Instruct in therapeutic exercises and perform manual techniques to improve functional ROM. Problem:PT14- Decreased Strength Goal:Strength goal Completed Assess/Instruct in safe gait techniques in home. Problem:PT20- Decreased Ambulation Ability Goal:Ambulation goal Completed Assess/Instruct in balance and fall prevention techniques Problem:PT24- Decreased Balance/Increased Fall Risk Goal:Balance/Fall risk goal Completed Visit Details Visit Type -SN Missed Visit Discipline -Mcc Visit Details Visit Type -PT Routine Visit Discipline -Physical Therapy Interventions Intervention Associated Problem/Goal Status Variance Visit Notes Assess for medication changes and observe medication labels Problem:AP01- Decreased Knowledge of Medication Management Goal:Medication management education goal Completed Instruct in high risk medication management for compliance and knowledge Problem:AP01- Decreased Knowledge of Medication Management Goal:Medication management education goal Scheduled with variance Time limitation Instruct in medication purpose/side effects Problem:AP01- Decreased Knowledge of Medication Management Goal:Medication management education goal Scheduled with variance Time limitation Assess/Instruct in edema management techniques Problem:AP03- Decreased Knowledge of Edema Control Goal:Edema education goal Scheduled with variance Task already performed Assess for lower extremity lesions and instruct in diabetic foot care Problem:AP04- Disruption of Skin Integrity Goal:Skin integrity goal Completed Assess skin integrity and instruct in treatment of non-intact skin/pressure relief, including incision and graft site care, as appropriate Problem:AP04- Disruption of Skin Integrity Goal:Skin integrity goal Completed Dressing change (wet-dry) performed this date. Patient able to perform 75% of dressing change. Pt unable to remove primary dressing from dorsal or plantar wounds or to place new saline soaked gauze primary dressing on either wound. Pt unable to apply gauze roll (secondary dressing). Pt was able to rewrap spencer bandage with verbal cues from PT for proper technique and don surgical shoe (CGA assist for donning shoe). Pt engaged patient in conversation and education regarding need for daily wet-dry dressing changes (physician orders) and availability of caregiver to assist. Pt states he does not have reliable family to assist with dressing changes. Patient did mention that he has 2 neighbors who are paramedics that he can reach out to for assistance. PT encouraged patient to reach out to neighbors in order to assist with dressing changes over the weekend. Patient with adequate wound care supplies for weekend. Assess/Instruct in home safety/fall prevention strategies Problem:AP07- Decreased Knowledge of Home Safety Goal:Home safety/fall prevention education goal Completed Skilled observation and assessment Problem:Abnormal Findings Goal:Assessment findings goal Completed Skilled observation and assessment due to recent exacerbation of disease process and recent surgery. Report abnormal assessment to physician Problem:Abnormal Findings Goal:Assessment findings goal Completed Near fall communicated to physician through in-basket message. Assess/Instruct in therapeutic exercises and perform manual techniques to improve functional ROM. Problem:PT14- Decreased Strength Goal:Strength goal Completed Issued HEP including gait with wheeled walker for endurance and LE conditioning and seated resistance band resisted knee ext, knee flex, and hip abduction. Patient able to demonstrate correct performance of HEP after education, provided resistance band and HEP handout this date. Assess/Instruct in safe gait techniques in home. Problem:PT20- Decreased Ambulation Ability Goal:Ambulation goal Completed Assess/Instruct in balance and fall prevention techniques Problem:PT24- Decreased Balance/Increased Fall Risk Goal:Balance/Fall risk goal Completed Visit Details Visit Type -SN HH Routine Vi sit Discipline -Mcc Problems Problem Start Date Status Goals Interventions Abnormal Findings Disciplines: Mcc, Physical Therapy, Occupational Therapy, Speech Therapy, Home Health Aide, Medical Social Work, Spiritual Care, Art Therapy, Massage Therapy, Registered Dietitian, Student - Medical Social Work 08/09/2020 Active 1 goal linked to scheduled/documented intervention 1 goal intervention scheduled/documented in this visit Abnormal Findings Disciplines: Mcc, Physical Therapy, Occupational Therapy, Speech Therapy, Home Health Aide, Medical Social Work, Spiritual Care, Art Therapy, Massage Therapy, Registered Dietitian, Student - Medical Social Work 08/10/2020 Active 1 goal linked to scheduled/documented intervention 1 goal intervention scheduled/documented in this visit Home Medication Management Disciplines: Mcc 08/10/2020 Active 1 goal linked to scheduled/documented intervention 2 goal interventions scheduled/documented in this visit Learning/Teaching Needs - Wound Care Disciplines: Mcc 08/10/2020 Active 1 goal linked to scheduled/documented intervention 2 goal interventions scheduled/documented in this visit Open Wound Care Disciplines: Mcc 08/10/2020 Active 1 goal linked to scheduled/documented intervention 1 goal intervention scheduled/documented in this visit Skilled Assessment Disciplines: Mcc 08/10/2020 Active 1 goal linked to scheduled/documented intervention 4 goal interventions scheduled/documented in this visit Goals Goal Associated Problem Outcome Goal Met? Visit Notes Assessment findings goal Abnormal Findings No Medication management goal Home Medication Management No Wound care education goal Learning/Teaching Needs - Wound Care No Wound care goal Open Wound Care No Rehospitalization joint replacement goal Skilled Assessment No Interventions Intervention Associated Problem/Goal Status Variance Visit Notes Skilled observation and assessment Problem:Abnormal Findings Goal:Assessment findings goal Completed Skilled observation and assessment due to alteration in patient's medical condition. Report abnormal assessment to physician Problem:Abnormal Findings Goal:Assessment findings goal Completed Medication box Problem:Home Medication Management Goal:Medication management goal Completed Patient to fill medication box every Saturday. SN to instruct Patient and monitor for proper filling and administration. Teach medication management Problem:Home Medication Management Goal:Medication management goal Completed Assess Patient ability to manage medications. Assess Patient knowledge of drug allergies, dose/route/frequency, new or changed medications, classification, reason for taking, effectiveness, drug interactions, food interactions, side effects/adverse reactions, contraindications, duplicative therapy, lab tests required, and ability to use pill box and/or medication list. Instruct on the signs and symptoms of infection Problem:Learning/[place] Needs - Wound Care Goal:Wound care education goal Completed Instruct Patient in strategies to prevent infection:frequent/pro per hand-washing techniques, Standard precautions, avoid crowds and persons with known infections, staying current with immunizations, s/s of infection, use of incentive spirometer, use of antibiotics and encourage adequate diet and fluid intake. Skilled assessment nutrition Problem:Learning/[place] Needs - Wound Care Goal:Wound care education goal Completed Wound care Problem:Open Wound Care Goal:Wound care goal Completed SN to perform dressing change to left diabetic foot ulcer. Change dressing every days. Daily visits to end. Old dressing removed. Well tolerated by patient.. Site cleansed with normal saline. Patted dry. Covered with gauze. Secured with Elastic bandage. See Wound Assessment form for measurements and status of wound. Obtain pulse oximetry Problem:Skilled Assessment Goal:Rehospitalizatio n joint replacement goal Completed 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 Problem:Skilled Assessment Goal:Rehospitalizatio n joint replacement goal Completed Skilled observation and assessment general assessment Problem:Skilled Assessment Goal:Rehospitalizatio n joint replacement goal Completed SN to perform general assessment to include height, weight, vital signs, and temperature; General assessment of systems: pulmonary, cardiovascular, endocrine and integumentary and report any abnormalities or concerns to the physician. Teaching-disease process r/t Wound Care Problem:Skilled Assessment Goal:Rehospitalizatio n joint replacement goal Completed SN to visit for teaching and training related to diabetes and wound care. Visit Details Visit Type -POTTERY STRIPER Telephone Lashawn merritt D/C Discipline -Medical Social Work Problems Problem Start Date Status Goals Interventions Abnormal Findings Disciplines: Mcc, Physical Therapy, Occupational Therapy, Speech Therapy, Home Health Aide, Medical Social Work, Spiritual Care, Art Therapy, Massage Therapy, Registered Dietitian, Student - Medical Social Work 08/09/2020 Active 1 goal linked to scheduled/documented intervention 1 goal intervention scheduled/documented in this visit Abnormal Findings Disciplines: Mcc, Physical Therapy, Occupational Therapy, Speech Therapy, Home Health Aide, Medical Social Work, Spiritual Care, Art Therapy, Massage Therapy, Registered Dietitian, Student - Medical Social Work 08/10/2020 Active 1 goal linked to scheduled/documented intervention 1 goal intervention scheduled/documented in this visit Goals Goal Associated Problem Outcome Goal Met? Visit Notes Assessment findings goal Abnormal Findings No Interventions Intervention Associated Problem/Goal Status Variance Visit Notes Skilled observation and assessment Problem:Abnormal Findings Goal:Assessment findings goal Scheduled Report abnormal assessment to physician Problem:Abnormal Findings Goal:Assessment findings goal Scheduled Actions Home Health Visit - Actions and Narratives (unrecognized section and content) 3wk1, 2wk1, 2prn wet to dry dressing dr calvillo on 08/11 @ 10:15am Care Teams (unrecognized sec tion and content) Screener Perfumer Relationship Specialty Start Date End Date Greyson Dominguez MD [address] [place], [place] [id number] PCP - General General Medicine 01/11/21 Screener Perfumer Relationship Specialty Start Date End Date Greyson Dominguez MD [address] [place] [phone] PCP - General Family Medicine 10/15/21 Screener Perfumer Relationship Specialty Start Date End Date Greyson Dominguez MD [address] [place] [phone] PCP - General Family Medicine 10/15/21 Screener Perfumer Relationship Specialty Start Date End Date Greyson Dominguez MD [address] [place] [address] PCP - General Family Medicine 08/14/20 Jet Calvillo, MONTSERR[place] [address] [place] [address] Wound Care Podiatry 08/11/20 Screener Perfumer Relationship Specialty Start Date End Date Greyson Dominguez MD [address] [place] [phone] PCP - General Family Medicine 10/15/21 Screener Perfumer Relationship Specialty Start Date End Date Greyson Dominguez MD [address] [place] [address] PCP - General Family Medicine 08/14/20 Jet Calvillo, HAYDENM [address] [place] [address] Wound Care Podiatry 08/11/20 Screener Perfumer Relationship Specialty Start Date End Date Greyson Dominguez MD [address] [place] [address] PCP - General Family Medicine 08/14/20 Jet Calvillo, MONTSERRAT [address] [place] [address] Wound Care Podiatry 08/11/20 Screener Perfumer Relationship Specialty Start Date End Date Greyson Dominguez MD [address] [place] [phone] PCP - General Family Medicine 10/15/21 Screener Perfumer Relationship Specialty Start Date End Date Greyson Dominguez MD [address] [place] [address] PCP - General Family Medicine 08/14/20 Jet Calvillo, HAYDEN [address] [place] [address] Wound Care Podiatry 08/11/20 Screener Perfumer Relationship Specialty Start Date End Date Greyson Dominguez MD [address] [place] [phone] PCP - General Family Medicine 10/15/21 Screener Perfumer Relationship Specialty Start Date End Date Greyson Dominguez MD [address] [place] [address] PCP - General Family Medicine 08/14/20 Jet Calvillo, MON[place]ERR[place] [address] [place] [address] Wound Care Podiatry 08/11/20 Screener Perfumer Relationship Specialty Start Date End Date Greyson Dominguez MD [address] [place] [address] PCP - General Family Medicine 08/14/20 Jet Calvillo, MONTSERR[place] [address] [place] [address] Wound Care Podiatry 08/11/20 Screener Perfumer Relationship Specialty Start Date End Date Greyson Dominguez MD [address] [place] [address] PCP - General Family Medicine 08/14/20 Jet Calvillo, MONTSERR[place] [address] [place] [address] Wound Care Podiatry 08/11/20 Screener Perfumer Relationship Specialty Start Date End Date Greyson Dominguez MD [address] [place] [phone] PCP - General Family Medicine 10/15/21 Screener Perfumer Relationship Specialty Start Date End Date Greyson Dominguez MD [address] [place] [phone] PCP - General Family Medicine 10/15/21 Screener Perfumer Relationship Specialty Start Date End Date Greyson Dominguez MD [address] [place], [place] [id number] PCP - General General Medicine 01/11/21 Screener Perfumer Relationship Specialty Start Date End Date Greyson Dominguez MD [address] [place] [phone] PCP - General Family Medicine 10/15/21 Team Status: Active Member Role Status Dates GREYSON DOMINGUEZ Primary Care Provider Active Team Status: Inactive Member Role Status Dates PAUL HOWELL , DO Emergency Provider Active ALBERTO RUBI Primary Care Provider Active Team Status: Inactive Member Role Status Dates ALBERTO RUBI Primary Care Provider Active CRISTIAN NYE , DO Emergency Provider Active MARILIN BUCKLEY MD Other Provider Active Screener Perfumer Relationship Specialty Start Date End Date Greyson Dominguez MD [address] [place], [place] [id number] PCP - General General Medicine 01/11/21 Team Status: Inactive Member Role Status Dates ALBERTO RUBI Primary Care Provider Active JENISE CORRALES , DO Emergency Provider Active Screener Perfumer Relationship Specialty Start Date End Date Greyson Dominguez MD [address] [place] [address] PCP - General Family Medicine 08/14/20 Jet Calvillo, [place] [address] [place] [address] Wound Care Podiatry 08/11/20 Screener Perfumer Relationship Specialty Start Date End Date Lauren Chowdary MD [address] [place] [address] [place] [phone] PCP - General 04/25/23 Ordered Prescriptions (unrec ognized section and content) Prescription Sig Dispensed Refills Start Date End Da te cephalexin (KEFLEX) 500 mg capsule Take 1 capsule (500 mg total) by mouth 4 (four) times a day for 7 days. 28 each 0 10/15/2021 10/22/2021 Prescription Sig Dispensed Refills Start Date End Da te glycerin (adult) suppository Insert 1 suppository (2 g total) into the rectum 1 (one) time each day if needed for constipation for up to 10 days. 10 each 0 01/18/2022 01/28/2022 polyethylene glycol (MIRALAX) 17 gram packet Take 17 g by mouth 1 (one) time each day for 7 days. You can use 2-3 times daily until you have multiple large formed bowel movements then can cut back to once daily. 7 each 0 01/18/2022 01/25/2022 bisacodyL (FLEET BISACODYL) 10 mg/30 mL enema Insert 30 mL (10 mg total) into the rectum 1 (one) time for 1 dose. 30 mL 0 01/18/2022 01/18/2022 Scheduled Active and Recently Administ ered Medications (unrecognized section and content) Medication Order 10/13/2021 10/14/2021 10/15/2021 ketorolac (TORADOL) injection 15 mg (COMPLETED) 15 mg, intravenous, Once, On 10/15/21 at 1001, For 1 dose 1018 (Given - Provid er: Carol King RN) lidocaine 2 % mucosal jelly (COMPLETED) urethral, Once, On 10/15/21 at 1001, For 1 dose 1020 (Given - Provid er: Carol King RN) Scheduled Medication Order 01/15/2022 01/16/2022 01/17/2022 aspirin EC tablet 81 mg 81 mg, Oral, Daily, First dose on Sat01/09/22 at 1700, DO NOT CRUSH OR CHEW. 0840 (Given - Provider: Yuliana Manzano RN) 0840 (Given - Provider: Yuliana Manzano RN) 0856 (Given - Provider: Christina Vo RN) atorvastatin (LIPITOR) tablet 80 mg 80 mg, Oral, Nightly, First dose on Sat01/09/22 at 2100 2052 (Given - Provider: Wiliam Bryant, DENISE) 2137 (Given - Provider: David Gruber RN) ceFAZolin (ANCEF) IVPB 2 g (premix) (CANCELED) 2,000 mg, Intravenous, at 100 mL/hr, Every 8 hours, First dose on Sat01/09/22 at 2200, Indication: Skin/Soft Tissue Infection 0542 (New Bag - Provider: Wiliam Bryant RN)0544 (Rate/Dose Verify - Provider: Wiliam Bryant, RN)0556 (Paused - Provider: Wiliam Bryant RN)0556 (Restarted - Provider: Wiliam Bryant RN)0615 (Stopped - Provider: Wiliam Bryant, RN)1240 (Stopped - Provider: Wiliam Bryant, RN)1503 (New Bag - Provider: Yuliana Manzano RN)1533 (Paused - Provider: Wiliam Bryant RN)1553 (Stopped - Provider: Yuliana Manzano RN)2102 (New Bag - Provider: Wiliam Bryant, RN)210 (Rate/Dose Verify - Provider: Wiliam Bryant, RN)213 (Stopped - Provider: Wiliam Bryant RN) 0556 (New Bag - Provider: Wiliam Bryant RN)0557 (Rate/Dose Verify - Provider: Wiliam Bryant RN)0627 (Stopped - Provider: Wiliam Bryant, RN) DULoxetine (CYMBALTA) DR capsule 90 mg 90 mg, Oral, At bedtime, First dose on Sat01/09/22 at 2100, DO NOT CRUSH OR CHEW. 2056 (Given - Provider: Wiliam Bryant RN) 2138 (Given - Provider: David Gruber RN) enoxaparin (LOVENOX) syringe 40 mg 40 mg, Subcutaneous, Daily, First dose (after last modification) on 01/13/22 at 0900, Administer in abdomen unless otherwise directed by prescriber. Notify physician if patient refuses., Indication: VTE Prophylaxis 0840 (Given - Provider: Yuliana Manzano RN) 0839 (Given - Provider: Yuliana Manzano RN) 0856 (Given - Provider: Christina Vo, RN) ferrous sulfate tablet 325 mg 325 mg, Oral, Daily with breakfast, First dose on Sat01/14/22 at 0800 0840 (Given - Provider: Yuliana Manzano RN) 0840 (Given - Provider: Yuliana Manzano RN) 0856 (Given - Provider: Christina Vo, RN) gabapentin (NEURONTIN) capsule 100 mg 100 mg, Oral, Nightly, First dose on Sat01/09/22 at 2100 2052 (Given - Provider: Wiliam Bryant RN) 2137 (Given - Provider: David Gruber, RN) insulin glargine (LANTUS) injection 24 Units 24 Units, Subcutaneous, Nightly, First dose (after last modification) on Sat01/15/22 at 2100, Do not hold basal insulin without notifying physician. If patient NPO and BG < 100 before procedure, administer half of the glargine insulin (Lantus) dose; if BG is >100 administer full dose. Do not mix with other insulins in a syringe. Do NOT hold basal insulin without notifying physician 2054 (Given - Provider: Wiliam Bryant RN) 2137 (Given - Provider: David Gruber, RN) insulin lispro (AdmeLOG,HumaLOG) injection 0-15 Units 0-15 Units, Subcutaneous, At bedtime, First dose on Sat01/09/22 at 2100, For Nightly Insulin Dose Coverage, use: CORRECTIVE (Only) for BG greater than 300, Nightly CORRECTIVE Dose Method: Specific Corrective Dose, Nightly Specific CORRECTIVE dose (units of insulin): 2, For Downtime Calculator, use: Insulin SC NIGHTtime 2099 (Not Given - Provider: Wiliam Bryant RN - Reason: Order parameters not met) 2139 (Not Given - Provider: David Gruber RN - Reason: Order parameters not met) insulin lispro (AdmeLOG,HumaLOG) injection 0-30 Units (CANCELED) 0-30 Units, Subcutaneous, 3 times daily before meals, First dose on Sat01/09/22 at 1635, Dose should be given 10-15 minutes before a meal. If poor oral intake, nausea or blood glucose value < 80 before meal, give of the dose (rounded up to nearest unit) immediately after meal completed. If patient skipping meal, hold base prandial dose and continue to use corrective insulin as ordered. Once diet resumed, total base prandial + corrective doses may be given., Prandial Insulin Dosing Method: NO Prandial Dose - Corrective Scale ONLY, Corrective Insulin Regimen (select desired scale to cover BG result): Conservative Scale, For Downtime Calculator, use: Insulin SC MEALtime PREprandial 0841 (Given - Provider: Yuliana Manzano RN)1235 (Given - Provider: Yuliana Manzano RN) insulin lispro (AdmeLOG,HumaLOG) injection 0-30 Units 0-30 Units, Subcutaneous, 3 times daily before meals, First dose (after last modification) on Sat01/15/22 at 1630, Dose should be given 10-15 minutes before a meal. If poor oral intake, nausea or blood glucose value < 80 before meal, give of the dose (rounded up to nearest unit) immediately after meal completed. If patient skipping meal, hold base prandial dose and continue to use corrective insulin as ordered. Once diet resumed, total base prandial + corrective doses may be given., Prandial Insulin Dosing Method: NO Prandial Dose - Corrective Scale ONLY, Corrective Insulin Regimen (select desired scale to cover BG result): Normal Sensitivity Scale, For Downtime Calculator, use: Insulin SC MEALtime PREprandial 1726 (Given - Provider: Yuliana Manzano RN) 0840 (Given - Provider: Yuliana Manzano RN)1235 (Given - Provider: Yuliana Manzano RN)1753 (Given - Provider: Yuliana Manzano RN) 0855 (Given - Provider: Christina Vo, DENISE)1250 (Given - Provider: Christina Vo, DENISE)1630 (Due) melatonin Tab 5 mg 5 mg, Oral, Nightly, First dose on Sat01/10/22 at 2100 2053 (Given - Provider: Wiliam Bryant, RN) 2138 (Given - Provider: David Gruber, DENISE) metroNIDAZOLE (FLAGYL) tablet 500 mg (CANCELED) 500 mg, Oral, 3 times daily with meals, First dose on Sat01/11/22 at 1200, Indication: Other: (specify), Indication: wound infx 0840 (Given - Provider: Yuliana Manzano RN)1235 (Given - Provider: Yuliana Manzano RN)1726 (Given - Provider: Yuliana Manzano RN) 0840 (Given - Provider: Yuliana Manzano RN) piperacillin-tazobactam (ZOSYN) IVPB 3.375 g (premix) 3.375 g, Intravenous, at 12.5 mL/hr, Every 8 hours, First dose on Sat01/16/22 at 1100, VESICANT, Indication: Severe Diabetic Foot Infections 1235 (New Bag - Provider: Yuliana Manzano RN)1813 (New Bag - Provider: Yuliana Manzano RN) 0340 (New Bag - Provider: David Gruber RN)0852 (Stopped - Provider: Christina Vo, RN)1252 (New Bag - Provider: Christina Vo, RN)1452 (Stopped - Provider: Christine Goodman RN) senna-docusate (SENNA-S) 8.6-50 mg per tablet 1 tablet 1 tablet, Oral, 2 times daily, First dose on Sat01/09/22 at 2100, NOT for abdominal surgery patients. Hold for loose stools. Do Not Crush or Chew if administering orally due to bitter taste. May be crushed if given via tube. 0840 (Given - Provider: Yuliana Manzano RN)2053 (Given - Provider: Wiliam Bryant RN) 0839 (Given - Provider: Yuliana Manzano RN)2138 (Given - Provider: David Gruber RN) 0856 (Given - Provider: Christina Vo RN) sodium chloride (PF) (NS) flush 5 mL(Linked Group 1) 5 mL, Intravenous, Every 8 hours scheduled, First dose on Sat01/09/22 at 1635, Saline lock 0542 (Given - Provider: Wiliam Bryant RN)1400 (Canceled Entry - Provider: Yuliana Manzano RN)2059 (Given - Provider: Wiliam Bryant RN) 0558 (Given - Provider: Wiliam Bryant RN)1400 (Canceled Entry - Provider: Yuliana Manzano RN)2141 (Not Given - Provider: David Gruber RN - Reason: Other - Comment: IV infusing) 0504 (Not Given - Provider: David Gruber RN - Reason: Other - Comment: IV infusing)1400 (Not Given - Provider: Christina Vo RN - Reason: Order parameters not met - Comment: zosyn infusing) tolterodine (DETROL LA) 24 hr capsule 2 mg 2 mg, Oral, Daily, First dose on Sat01/09/22 at 1635, DO NOT CRUSH OR CHEW. 0840 (Given - Provider: Yuliana Manzano, RN) 0839 (Given - Provider: Yuliana Manzano, RN) 0856 (Given - Provider: Christina Vo RN) vancomycin (VANCOCIN) 1000 mg in sodium chloride (NS) 0.9% 250mL (vialmate) 1,000 mg, Intravenous, at 250 mL/hr, Every 24 hours, First dose (after last reorder) on 01/15/22 at 2200, Indication: Severe Diabetic Foot Infection 2252 (New Bag - Provider: Wiliam Bryant, RN)2257 (Rate/Dose Verify - Provider: Wiliam Bryant, RN)2258 (Paused - Provider: Wiliam Bryant, RN)2258 (Restarted - Provider: Wiliam Bryant, RN)2358 (Stopped - Provider: Wiliam Bryant, RN) 2244 (New Bag - Provider: David Gruber RN) vancomycin (VANCOCIN) 1250 mg in sterile water 250 mL IVPB (Xellia) (CANCELED) 1,250 mg, Intravenous, at 250 mL/hr, Every 24 hours, First dose (after last modification) on 01/13/22 at 0000, DO NOT USE IN , Indication: Severe Diabetic Foot Infection 0000 (Not Given - Provider: Wiliam Bryant RN - Reason: Order parameters not met - Comment: Vanc trough resultd 20.1)0126 (New Bag - Provider: Wiliam Bryant RN)0241 (Stopped - Provider: Wiliam Bryant, RN) PRN Medication Order 01/15/2022 01/16/2022 01/17/2022 acetaminophen (TYLENOL) tablet 650 mg 650 mg, Oral, Every 4 hours PRN, mild pain, fever 100.4 F or greater, headaches, Starting on Sat01/09/22 at 1634 aluminum-magnesium hydroxide-simethicone (MAALOX PLUS) 200-200-20 mg/5 mL suspension 30 mL 30 mL, Oral, Every 4 hours PRN, indigestion, Starting on Sat01/09/22 at 1634 hydrOXYzine (ATARAX) tablet 25 mg 25 mg, Oral, 3 times daily PRN, anxiety, Starting on Blanca 01/11/22 at 1633 naloxone (NARCAN) injection 0.1 mg(Linked Group 2) 0.1 mg, Intravenous, As needed, opioid reversal, For respiratory rate less than or equal to 8 per minute., Starting on Sat01/12/22 at 1937, Mix nalOXone (NARCAN) 0.4 mg (1mL) with 9 mL of Normal Saline to total 10 mL. Administer 0.1 mg (2.5mL) IV Push every 2 minutes until respiratory rate is 10 or greater. naloxone (NARCAN) injection 0.4 mg(Linked Group 2) 0.4 mg, Intravenous, As needed, opioid reversal, patient is pulseless, breathless, and unresponsive, Starting on Sat01/12/22 at 1937, Call a code first, then administer naloxone dose undiluted IV Push over 30 seconds. ondansetron (ZOFRAN) injection 4 mg(Linked Group 3) 4 mg, Intravenous, Every 6 hours PRN, nausea, vomiting, Starting on Sat01/09/22 at 1614, Use oral route first, if tolerated. ondansetron (ZOFRAN-ODT) disintegrating tablet 4 mg(Linked Group 3) 4 mg, Oral, Every 6 hours PRN, nausea, vomiting, Starting on Sat01/09/22 at 1614, Use oral route first, if tolerated. Formulation requires tablet remain in sealed package until immediately prior to dose being administered. oxyCODONE (ROXICODONE) immediate release tablet 5-10 mg 5-10 mg, Oral, Every 4 hours PRN (may repeat), moderate to severe pain, Starting on Sat01/12/22 at 1937, Initiate with 5 mg oral every 4 hours prn moderate to severe pain. For unrelieved pain, may repeat 5 mg within 60 minutes of initial dose. If pain is RELIEVED after repeat dose, change to 10 mg every 4 hours prn moderate to severe pain. If pain is UNrelieved after repeat dose, or patient requires dose reduction, call physician. 1049 (Given - Provider: Yuliana Manzano RN) senna (SENOKOT) tablet 8.6 mg 8.6 mg (1 tablet), Oral, 2 times daily PRN, constipation, Starting on Sat01/09/22 at 1634 sodium chloride (PF) (NS) flush 5 mL(Linked Group 1) 5 mL, Intravenous, As needed, line care, Starting on Sat01/09/22 at 1614 sodium chloride 0.9% (NS)(Linked Group 1) 0-150 mL/hr, Intravenous, As needed, To flush line after IV infusions when no maintenance IV ordered or a compatibility issue. Infuse 20ml at the same rate as the secondary infusion, Starting on Sat01/09/22 at 1614, Run as Primary IV. NOT intended for KVO. 0127 (Rate/Dose Change - Provider: Wiliam Bryant RN)0127 (Paused - Provider: Wiliam Bryant RN)0130 (Paused - Provider: Wiliam Bryant, RN)0230 (Restarted - Provider: Wiliam Bryant, RN)0238 (Rate/Dose Change - Provider: Wiliam Bryant, RN)0239 (Stopped - Provider: Wiliam Bryant RN)1502 (New Bag - Provider: Yuliana Manzano, DENISE)1503 (Paused - Provider: Wiliam Bryant, RN)1533 (Restarted - Provider: Wiliam Bryant, RN)1550 (Stopped - Provider: Wiliam Bryant RN)1553 (Stopped - Provider: Yuliana Manzano RN) 1234 (New Bag - Provider: Yuliana Manzano, RN) 0852 (Stopped - Provider: Christina Vo, DENISE)1452 (Stopped - Provider: Christine Goodman, DENISE) traZODone (DESYREL) tablet 50 mg (CANCELED) 50 mg, Oral, Nightly PRN, sleep, Starting on Sat01/16/22 at 0028 0033 (Given - Provider: Wiliam Bryant RN) Linked Groups Order Group 1: Saline lock IV (CANCELED) Routine, Continuous, Starting on Sat01/09/22 at 1615, Until Specified And sodium chloride (PF) (NS) flush 5 mLJump to med 5 mL, Intravenous, As needed, line care, Starting on Sat01/09/22 at 1614 And sodium chloride (PF) (NS) flush 5 mLJump to med 5 mL, Intravenous, Every 8 hours scheduled, First dose on Sat01/09/22 at 1635
Saline lock
And sodium chloride 0.9% (NS)Jump to med 0-150 mL/hr, Intravenous, As needed, To flush line after IV infusions when no maintenance IV ordered or a compatibility issue. Infuse 20ml at the same rate as the secondary infusion, Starting on Sat01/09/22 at 1614
Run as Primary IV. NOT intended for KVO.
Group 2: naloxone (NARCAN) injection 0.1 mgJump to med 0.1 mg, Intravenous, As needed, opioid reversal, For respiratory rate less than or equal to 8 per minute., Starting on Sat01/12/22 at 1937
Mix nalOXone (NARCAN) 0.4 mg (1mL) with 9 mL of Normal Saline to total 10 mL. Administer 0.1 mg (2.5mL) IV Push every 2 minutes until respiratory rate is 10 or greater.
And Notify physician (CANCELED) STAT, Until discontinued, Starting on Sat01/12/22 at 1938, Until Specified
Respiratory rate less than: 8
For respiratory rate less than or equal to 8, notify physician and/or appropriate staff for additional orders. And naloxone (NARCAN) injection 0.4 mgJump to med 0.4 mg, Intravenous, As needed, opioid reversal, patient is pulseless, breathless, and unresponsive, Starting on Sat01/12/22 at 1937
Call a code first, then administer naloxone dose undiluted IV Push over 30 seconds.
Group 3: ondansetron (ZOFRAN-ODT) disintegrating tablet 4 mgJump to med 4 mg, Oral, Every 6 hours PRN, nausea, vomiting, Starting on Sat01/09/22 at 1614
Use oral route first, if tolerated. Formulation requires tablet remain in sealed package until immediately prior to dose being administered.
Or ondansetron (ZOFRAN) injection 4 mgJump to med 4 mg, Intravenous, Every 6 hours PRN, nausea, vomiting, Starting on Sat01/09/22 at 1614
Use oral route first, if tolerated.
Scheduled Medication Order 01/16/2022 01/17/2022 01/18/2022 magnesium citrate solution 296 mL (COMPLETED) 296 mL, oral, Once, On Blanca 01/18/22 at 2153, For 1 dose 2216 (Given - Provid er: Jailyn Mills RN) Scheduled Medication Order 06/27/2022 06/28/2022 06/29/2022 amLODIPine (Norvasc) tablet 10 mg 10 mg, oral, Daily RT, First dose on Sat05/03/22 at 0800 0902 (Given - Provider: Tres Irvin RN - Comment: late med pass) 0819 (Given - Provider: Pat Dominguez RN) 0838 (Given - Provider: Pat Dominguez RN) ammonium lactate (Amlactin) 12 % cream Topical, Daily, First dose on Sat06/18/22 at 1445 0920 (Given - Provider: Tres Irvin RN) 0821 (Given - Provider: Pat Dominguez RN) 0839 (Given - Provider: Pat Dominguez RN) aspirin EC tablet 81 mg 81 mg, oral, Daily, First dose on Sat05/03/22 at 0900, Do not crush, chew, or split. 0901 (Given - Provider: Tres Irvin RN) 0820 (Given - Provider: Pat Dominguez RN) 0838 (Given - Provider: Pat Dominguez RN) covid-19 mRNA (Moderna)(PF) 100 mcg/0.5 mL vaccine 0.25 mL 0.25 mL, intramuscular, Once, On Sat06/22/22 at 1500, For 1 dose, COVID Vaccine Dose: Booster Dose cyanocobalamin (Vitamin B-12) tablet 500 mcg 500 mcg, oral, Daily, First dose on Sat05/03/22 at 0900 0902 (Given - Provider: Tres Irvin RN) 0820 (Given - Provider: Pat Dominguez RN) 0838 (Given - Provider: Pat Dominguez RN) diclofenac (Voltaren) 1 % topical gel 1 application 1 application, Topical, 4 times daily, First dose on Sat05/02/22 at 2200, Apply to affected area, Indications: pain 0920 (Given - Provider: Tres Irvin RN)1317 (Given - Provider: Tres Irvin RN)1751 (Given - Provider: Tres Irvin RN - Comment: yoandy knees)2100 (Given - Provider: mUa Aguilar RN) 0821 (Given - Provider: Pat Dominguez RN)1132 (Given - Provider: Pat Dominguez, DENISE)1710 (Given - Provider: Pepe Avalos RN)2100 (Given - Provider: Aleena Scott, RN) 0839 (Given - Provider: Pat Dominguez RN)1200 (Not Given - Provider: Pat Dominguez RN - Reason: Other - Comment: patient does not want at this time due to eating lunch)1815 (Given - Provider: Nicki Pearl, DENISE)2100 (Canceled Entry - Provider: Automatic Discharge Provider - Comment: Automatically canceled at discontinue of medication order) divalproex (Depakote ER) 24 hr tablet 500 mg 500 mg, oral, Daily, First dose on Sat05/06/22 at 1630, Do not crush, chew, or split. 0903 (Given - Provider: Tres Irvin RN) 0819 (Given - Provider: Pat Dominguez RN) 0838 (Given - Provider: Pat Dominguez RN) docusate sodium (Colace) capsule 100 mg 100 mg, oral, 2 times daily, First dose (after last modification) on Sat05/31/22 at 0900, Bowel Regimen - for prevention of constipation. 900 (Given - Provider: Tres Irvin, DENISE)2056 (Given - Provider: Uma Aguilar RN) 08 (Given - Provider: Pat Dominguez RN)2058 (Given - Provider: Aleena Scott, RN) 08 (Given - Provider: Pat Dominguez RN)2100 (Canceled Entry - Provider: Automatic Discharge Provider - Comment: Automatically canceled at discontinue of medication order) DULoxetine (Cymbalta) DR capsule 90 mg 90 mg, oral, Nightly, First dose on Sat05/02/22 at 2200, Do not crush or chew. 2056 (Given - Provider: Uma Aguilar RN) 2058 (Given - Provider: Aleena Scott, RN) 2099 (Canceled Entry - Provider: Automatic Discharge Provider - Comment: Automatically canceled at discontinue of medication order) enoxaparin (Lovenox) syringe 40 mg 40 mg, subcutaneous, Nightly, First dose on Sat05/22/22 at 2100, HIGH ALERT MEDICATION 2100 (Not Given - Provider: Uma Aguilar RN - Reason: Patient/family refused) 2058 (Not Given - Provider: Aleena Scott, RN - Reason: Patient/family refused) 2100 (Canceled Entry - Provider: Automatic Discharge Provider - Comment: Automatically canceled at discontinue of medication order) ergocalciferol (Vitamin D-2) capsule 50,000 Units 50,000 Units, oral, Weekly, First dose on Sat05/05/22 at 0900 ferrous sulfate EC tablet 325 mg 325 mg, oral, Daily with breakfast, First dose on Sat05/03/22 at 0800, Do not crush, chew, or split. , Indications: iron deficiency anemia 0900 (Given - Provider: Tres Irvin RN) 0820 (Given - Provider: Pat Dominguez, DENISE) 0838 (Given - Provider: Pat Dominguez, RN) flurbiprofen (Ocufen) 0.03 % ophthalmic solution 1 drop 1 drop, Both Eyes, 2 times daily, First dose on Sat05/02/22 at 2200, Indications: pain 0930 (Given - Provider: Tres Irvin, DENISE)2100 (Given - Provider: Uma Aguilar RN) 0821 (Given - Provider: Pat Dominguez, DENISE)2099 (Not Given - Provider: Aleena Scott, RN - Reason: Patient/family refused) 0839 (Given - Provider: Pat Dominguez, DENISE)2100 (Canceled Entry - Provider: Automatic Discharge Provider - Comment: Automatically canceled at discontinue of medication order) gabapentin (Neurontin) capsule 100 mg 100 mg, oral, Daily, First dose on Sat05/19/22 at 0900 0901 (Given - Provider: Tres Irvin RN) 0820 (Given - Provider: Pat Dominguez, DENISE) 0838 (Given - Provider: Pat Dominguez, DENISE) gabapentin (Neurontin) capsule 300 mg 300 mg, oral, Nightly, First dose on Sat05/18/22 at 2100 2056 (Given - Provider: Uma Aguilar RN) 2100 (Given - Provider: Aleena Scott, RN) 2100 (Canceled Entry - Provider: Automatic Discharge Provider - Comment: Automatically canceled at discontinue of medication order) glimepiride (Amaryl) tablet 2 mg 2 mg, oral, Daily with breakfast, First dose on Sat05/03/22 at 0800 0900 (Given - Provider: Tres Irvin RN) 0820 (Given - Provider: Pat Dominguez RN) 0838 (Given - Provider: Pat Dominguez RN) insulin aspart (NovoLOG) 100 unit/mL (3 mL) injection 0-14 Units 0-14 Units, subcutaneous, 3 times daily with meals, First dose on Sat05/02/22 at 2200, Allow 4 hours between insulin aspart (NovoLOG) doses unless cleared by physician. Glucose results greater than 30 minutes old are considered invalid for administration of sliding scale or mealtime insulin., BG < 60 instructions: follow hypoglycemia protocol, BG 60-150 instructions: 0, BG 151-200: 4, BG 201-250: 6, BG 251-300: 8, BG 301-350: 10, BG 351-400: 12, BG 401-450: 14, BG > 450 instructions: call MD 0916 (Given - Provider: Tres Irvin RN)1318 (Not Given - Provider: Tres Irvin RN - Reason: Order parameters not met)1744 (Given - Provider: Tres Irvin RN) 0800 (Not Given - Provider: Pat Dominguez RN - Reason: Order parameters not met)1241 (Given - Provider: Pat Dominguez RN)1800 (Not Given - Provider: Aleena Isaac RN - Reason: Order parameters not met) 0800 (Not Given - Provider: Pat Dominguez RN - Reason: Order parameters not met)1200 (Not Given - Provider: Pat Dominguez RN - Reason: Order parameters not met)1815 (Given - Provider: Nicki Pearl RN) insulin aspart (NovoLOG) 100 unit/mL (3 mL) injection 0-7 Units 0-7 Units, subcutaneous, Nightly, First dose on Sat05/02/22 at 2200, Bedtime average dose regimen (8 pm-12 am). Allow 4 hours between insulin aspart (NovoLOG) doses unless cleared by physician. Glucose results greater than 30 minutes old are considered invalid for administration of sliding scale or mealtime insulin., BG < 60 instructions: follow hypoglycemia protocol, BG 60-150 instructions: 0, BG 151-200: 0, BG 201-250: 3, BG 251-300: 4, BG 301-350: 5, BG 351-400: 6, BG 401-450: 7, BG > 450 instructions: call MD 2099 (Not Given - Provider: Uma Aguilar RN - Reason: Order parameters not met) 2099 (Not Given - Provider: Uma Aguilar RN - Reason: Order parameters not met) 2100 (Canceled Entry - Provider: Automatic Discharge Provider - Comment: Automatically canceled at discontinue of medication order) insulin detemir (Levemir) 100 unit/mL (3 mL) injection 22 Units 22 Units, subcutaneous, Every morning, First dose on Sat05/03/22 at 0700 0914 (Given - Provider: Tres Irvin RN) 1132 (Given - Provider: Pat Dominguez RN) 1021 (Given - Provider: Puja Grijalva RN) lidocaine (Lidoderm) 5 % patch 1 patch 1 patch, topical (top), Administer over 12 Hours, Daily, First dose on Sat05/03/22 at 0900, Apply to affected area 0903 (Medication Applied - Provider: Tres Irvin RN)2102 (Medication Removed - Provider: Uma Aguilar RN) 08 (Medication Applied - Provider: Pat Dominguez RN)2058 (Medication Removed - Provider: Aleena Scott, RN) 0837 (Not Given - Provider: Pat Dominguez RN - Reason: Patient/family refused) melatonin tablet 6 mg 6 mg, oral, Nightly, First dose on Sat05/02/22 at 2200 205 (Given - Provider: Uma Aguilar RN) 2058 (Given - Provider: Aleena Scott, RN) 2099 (Canceled Entry - Provider: Automatic Discharge Provider - Comment: Automatically canceled at discontinue of medication order) oxybutynin (Ditropan) tablet 5 mg 5 mg, oral, 2 times daily, First dose on Sat05/02/22 at 2200 0901 (Given - Provider: Tres Irvin RN)2056 (Given - Provider: Uma Aguilar RN) 0820 (Given - Provider: Pat Dominguez RN)2058 (Given - Provider: Aleena Scott, RN) 0838 (Given - Provider: Pat Dominguez RN)2100 (Canceled Entry - Provider: Automatic Discharge Provider - Comment: Automatically canceled at discontinue of medication order) oxygen (O2) gas inhalation, See admin instructions, Starting on Sat05/02/22 at 2144, Device: Nasal Cannula, Rate in liters per minute: 2 Lpm, Titrate to keep O2 Sat greater than or equal to: 90% rosuvastatin (Crestor) tablet 40 mg 40 mg, oral, Daily, First dose on Sat05/03/22 at 0900 0900 (Given - Provider: Tres Irvin RN) 08 (Given - Provider: Pat Dominguez RN) 0838 (Given - Provider: Pta Dominguez RN) SITagliptin (Januvia) tablet 100 mg 100 mg, oral, Daily, First dose on Sat05/03/22 at 0900, Indications: type 2 diabetes mellitus 0903 (Given - Provider: Tres Irvin RN) 0820 (Given - Provider: Pat Dominguez RN) 0838 (Given - Provider: Pat Dominguez RN) tiZANidine (Zanaflex) tablet 2 mg 2 mg, oral, 2 times daily, First dose on Sat05/02/22 at 2200, Indications: muscle spasm 0900 (Given - Provider: Tres Irvin RN)2056 (Given - Provider: Uma Aguilar RN) 0820 (Given - Provider: Pat Dominguez RN)2058 (Given - Provider: Aleena Scott, RN) 0838 (Given - Provider: Pat Dominguez RN)2100 (Canceled Entry - Provider: Automatic Discharge Provider - Comment: Automatically canceled at discontinue of medication order) PRN Medication Order 06/27/2022 06/28/2022 06/29/2022 acetaminophen (Tylenol) 160 mg/5 mL liquid 650 mg 650 mg, oral, Every 4 hours PRN, fever, general discomfort or temperature greater than 100.4 degrees F. May give rectal suppository if npo. *Do not exceed 4 grams in 24 hours*, Starting on Sat05/02/22 at 2144 acetaminophen (Tylenol) suppository 650 mg 650 mg, rectal, Every 4 hours PRN, general discomfort or temperature greater than 100.4 degrees F. *Do not exceed 4 grams in 24 hours*, Starting on Sat05/02/22 at 2144, Give DE if unable to administer by mouth or feeding tube. acetaminophen (Tylenol) tablet 650 mg 650 mg, oral, Every 4 hours PRN, general discomfort or temperature greater than 100.4 degrees F. May give rectal suppository if npo. *Do not exceed 4 grams in 24 hours*, Starting on Sat05/02/22 at 2144 dextrose 50% solution 25 mL(Linked Group 1) 25 mL, intravenous, As needed, low blood sugar, blood glucose less than 60 mg/dL and IV access is available, Starting on Sat05/02/22 at 2144, For the patient who cannot eat or who has altered mentation or is unconscious. Recheck glucose every 30 minutes until above 70. Notify physician. glucagon injection 1 mg(Linked Group 1) 1 mg, intravenous, As needed, blood glucose less than 60 mg/dL, IV access is available, and dextrose 50% is unavailable, Starting on Sat05/02/22 at 2144, For the patient who cannot eat or who has altered mentation or is unconscious. Recheck glucose every 30 minutes until above 70. Notify physician. May repeat every 15 minutes as needed. If patient is not responding to treatment with glucagon, contact provider or pharmacy for other options. glucagon injection 1 mg(Linked Group 1) 1 mg, subcutaneous, As needed, blood glucose less than 60 mg/dL and no IV access, Starting on Sat05/02/22 at 2144, For the patient who cannot eat or who has altered mentation or is unconscious. After glucagon administration, start IV access. Notify physician. Re-assess glucose level every hour until two consecutive readings greater than 60 mg/dL. If persistently below 70 mg/dL after treatment, notify physician. ibuprofen tablet 400 mg 400 mg, oral, Every 8 hours PRN, moderate pain, mild pain, Starting on Sat05/04/22 at 0428 lidocaine (LMX) 4 % cream 1 application 1 application, Topical, As needed, mild pain, Starting on Sat05/02/22 at 2144, Apply as needed prior to IV initiation. Apply 30 minutes prior to procedure, but not more than 1 hour prior to procedure. Max dose 2.5 grams of cream per application site. Max application time 4 hours. magnesium hydroxide (Milk of Magnesia) 400 mg/5 mL suspension 30 mL 30 mL, oral, Daily PRN, constipation, Starting on Sat05/02/22 at 2144, 1st line for treatment of constipation - give scheduled if no bowel movement in past 24 hours 1006 (Given - Provider: Tres Irvin RN) naloxone (Narcan) injection 0.4 mg 0.4 mg, intravenous, As needed, respiratory depression, Starting on Sat05/02/22 at 2144, 0.4 mg (1 mL) IVP over 30 seconds for respiratory rate less than 8 per minute: NOTIFY PHYSICIAN immediately. Repeat every 2 minutes as needed up to 10 mg total. nitroglycerin (Nitrostat) SL tablet 0.4 mg 0.4 mg, sublingual, Every 5 min PRN, chest pain, Starting on Sat05/02/22 at 2144, Give every 5 minutes as needed for chest pain to a maximum of 3 doses. Notify MD and obtain EKG if no relief after 3 doses or chest pain recurs. HOLD and notify MD if SBP less than 90 mmHg. Do not give if nitroglycerin infusion running concurrently. Do not give within 24 hours of sildenafil citrate (Viagra) or vardenafil (Levitra) use, or within 48 hours of tadalafil (Cialis) use. ondansetron (Zofran) injection 4 mg 4 mg, intravenous, Every 8 hours PRN, nausea, vomiting, Starting on Sat05/02/22 at 2144, 1st Line. If inadequate response within 60 minutes, proceed to next-line agent or contact provider if no further options ordered. oxyCODONE-acetaminophen (Percocet) 5-325 mg per tablet 1 tablet 1 tablet, oral, Every 6 hours PRN, moderate pain, Starting on Sat05/02/22 at 2143 polyethylene glycol (Glycolax) packet 17 g 17 g, oral, Daily PRN, constipation, Starting on Sat06/03/22 at 1315 sodium chloride 0.9 % infusion 250 mL 250 mL, intravenous, at 20 mL/hr, KVO, Line Care, Starting on Sat05/02/22 at 2144, If no maintenance IV fluid ordered, run a 250 mL bag of 0.9% NaCl with all IVPB. sodium chloride flush(floorstock) 3-15 mL 3-15 mL, intravenous, As needed, line care, each shift and as needed, Starting on Sat05/02/22 at 2144 Linked Groups Order Group 1: dextrose 50% solution 25 mLJump to med 25 mL, intravenous, As needed, low blood sugar, blood glucose less than 60 mg/dL and IV access is available, Starting on Sat05/02/22 at 2144
For the patient who cannot eat or who has altered mentation or is unconscious. Recheck glucose every 30 minutes until above 70. Notify physician.
Or glucagon injection 1 mgJump to med 1 mg, intravenous, As needed, blood glucose less than 60 mg/dL, IV access is available, and dextrose 50% is unavailable, Starting on Sat05/02/22 at 2144
For the patient who cannot eat or who has altered mentation or is unconscious. Recheck glucose every 30 minutes until above 70. Notify physician. May repeat every 15 minutes as needed. If patient is not responding to treatment with glucagon, contact provider or pharmacy for other options.
Or glucagon injection 1 mgJump to med 1 mg, subcutaneous, As needed, blood glucose less than 60 mg/dL and no IV access, Starting on Sat05/02/22 at 2144
For the patient who cannot eat or who has altered mentation or is unconscious. After glucagon administration, start IV access. Notify physician. Re-assess glucose level every hour until two consecutive readings greater than 60 mg/dL. If persistently below 70 mg/dL after treatment, notify physician.
Scheduled Medication Order 09/12/2022 09/13/2022 09/14/2022 ammonium lactate (Amlactin) 12 % cream Topical, 2 times daily, First dose on 09/10/22 at 0930, Top of left foot 0932 (Given - Provider: Jenna Avalos RN)2021 (Given - Provider: Rafi Fierro RN) 0842 (Given - Provider: Karrie Keith RN)2152 (Given - Provider: Piper Cruz RN) 0900 (Not Given - Provider: Shell Smith RN - Reason: Contraindicated - Comment: discharging before dressing change) cefTRIAXone (Rocephin) 1 g in sodium chloride 0.9 % 60 mL IVPB (CANCELED) 1 g, intravenous, at 120 mL/hr, Administer over 30 Minutes, Every 24 hours, First dose on Sat09/12/22 at 0000, Suspected Indication (Select all that apply): Urinary Tract Infection, Type of Urinary Tract Infection: Uncomplicated, Type of Therapy: Empiric 0055 (New Bag - Provider: Mary Marrufo, RN)0125 (Stopped - Provider: Mary Marrufo, RN) 0055 (New Bag - Provider: Rafi Fierro, RN)0125 (Stopped - Provider: Rafi Fierro RN) collagenase 250 unit/gram ointment Topical, 2 times daily, First dose on Sat09/10/22 at 0930 0932 (Given - Provider: Jenna Avalos RN)2021 (Given - Provider: Rafi Fierro RN) 08 (Given - Provider: Karrie Keith RN)2152 (Given - Provider: Piper Cruz, DENISE) 0900 (Not Given - Provider: Shell Smith RN - Reason: Contraindicated - Comment: discharging before dressing change) cyanocobalamin (Vitamin B-12) tablet 500 mcg 500 mcg, oral, Daily, First dose on Sat09/10/22 at 1315 0929 (Given - Provider: Jenna Avalos RN) 0842 (Given - Provider: Karrie Keith RN) 0822 (Given - Provider: Shell Smith, DENISE) docusate sodium (Colace) capsule 100 mg 100 mg, oral, 2 times daily, First dose on Sat09/10/22 at 2100 0929 (Given - Provider: Jenna Avalos RN)2019 (Given - Provider: Rafi Fierro RN) 0841 (Given - Provider: Karrie Keith RN)214 (Given - Provider: Piper Cruz RN) 08 (Given - Provider: Shell Smith RN) ergocalciferol (Vitamin D-2) capsule 50,000 Units 50,000 Units, oral, Weekly, First dose on Sat09/15/22 at 0900 furosemide (Lasix) injection 20 mg (COMPLETED) 20 mg, intravenous, Once, On Sat09/12/22 at 0715, For 1 dose 0750 (Given - Provider: Jenna Avalos RN) gabapentin (Neurontin) capsule 300 mg 300 mg, oral, Nightly, First dose on Sat09/10/22 at 2100 2019 (Given - Provider: Rafi Fierro RN) 214 (Given - Provider: Piper Cruz, DENISE) haloperidoL (Haldol) tablet 0.5 mg 0.5 mg, oral, 3 times daily, First dose on Sat09/10/22 at 1600 0900 (Not Given - Provider: Jenna Avalos RN - Reason: Patient/family refused)1600 (Not Given - Provider: Jenna Avalos RN - Reason: Patient/family refused)2018 (Given - Provider: Rafi Fierro RN) 0841 (Given - Provider: Karrie Keith RN)165 (Given - Provider: Karrie Keith RN)2149 (Given - Provider: Piper Cruz, DENISE) 0822 (Given - Provider: Shell Smith RN) heparin (porcine) injection 5,000 Units 5,000 Units, subcutaneous, Every 12 hours, First dose on Sat09/11/22 at 0345, HIGH ALERT MEDICATION, Indications: Prophylaxis of Venous Thromboembolism 0400 (Not Given - Provider: Mary Marrufo RN - Reason: Patient/family refused)1444 (Given - Provider: Jenna Avalos RN) 0332 (Given - Provider: Rafi Fierro RN)1653 (Given - Provider: Karrie Keith RN - Comment: 264) 0345 (Not Given - Provider: Piper Cruz RN - Reason: Patient/family refused) insulin aspart (NovoLOG) 100 unit/mL (3 mL) injection 0-14 Units 0-14 Units, subcutaneous, 3 times daily with meals, First dose on Sat09/11/22 at 0800, Allow 4 hours between insulin aspart (NovoLOG) doses unless cleared by physician. Glucose results greater than 30 minutes old are considered invalid for administration of sliding scale or mealtime insulin., BG < 60 instructions: follow hypoglycemia protocol, BG 60-150 instructions: 0, BG 151-200: 4, BG 201-250: 6, BG 251-300: 8, BG 301-350: 10, BG 351-400: 12, BG 401-450: 14, BG > 450 instructions: call 09 (Given - Provider: Jenna Avalos RN)144 (Given - Provider: Jenna Avalos RN)1726 (Given - Provider: Clair Mccormack RN) 0842 (Given - Provider: Karrie Keith, DENISE)1216 (Given - Provider: Karrie Keith, DENISE)1648 (Given - Provider: Karrie Keith, DENISE) 0822 (Given - Provider: Shell Smith, DENISE) insulin aspart (NovoLOG) 100 unit/mL (3 mL) injection 0-7 Units 0-7 Units, subcutaneous, Nightly, First dose on Sat09/11/22 at 0345, Bedtime average dose regimen (8 pm-12 am). Allow 4 hours between insulin aspart (NovoLOG) doses unless cleared by physician. Glucose results greater than 30 minutes old are considered invalid for administration of sliding scale or mealtime insulin., BG < 60 instructions: follow hypoglycemia protocol, BG 60-150 instructions: 0, BG 151-200: 0, BG 201-250: 3, BG 251-300: 4, BG 301-350: 5, BG 351-400: 6, BG 401-450: 7, BG > 450 instructions: call 2020 (Given - Provider: Rafi Fierro, DENISE) 2149 (Given - Provider: Piper Cruz, DENISE) iron sucrose (Venofer) injection 200 mg (COMPLETED) 200 mg, intravenous, Daily, First dose on Sat09/10/22 at 1115, For 5 doses 0940 (Given - Provider: Jenna Avalos RN) 0842 (Given - Provider: Karrie Keith, DENISE) 0822 (Given - Provider: Shell Smith, DENISE) lactulose 20 gram/30 mL oral solution 10 g 10 g, oral, 2 times daily, First dose on Sat09/11/22 at 2100, CONTRAINDICATED IN LIVER TRANSPLANT PATIENTS IN POST-OP PHASE OF CARE 09 (Given - Provider: Jenna Avalos RN)2017 (Given - Provider: Rafi Fierro RN) 08 (Given - Provider: Karrie Keith, DENISE)2148 (Given - Provider: Piper Cruz, DENISE) 09 (Not Given - Provider: Shell Smith, DENISE - Reason: Contraindicated - Comment: pt discharging via ambulance at 0930) lidocaine (Lidoderm) 5 % patch 1 patch 1 patch, topical (top), Administer over 12 Hours, Daily, First dose on Sat09/10/22 at 1315, Apply to affected area 929 (Medication Applied - Provider: Jenna Avalos RN)2129 (Medication Removed - Provider: Rafi Fierro RN) 08 (Medication Applied - Provider: Karrie Keith, DENISE)2040 (Medication Removed - Provider: Piper Cruz, DENISE) 08 (Medication Applied - Provider: Shell Smith, DENISE)09 (Due: Medication Removed - Provider: Automatic Discharge Provider - Comment: Time automatically adjusted from order being discontinued) oxygen (O2) gas inhalation, See admin instructions, Starting on Sat09/11/22 at 0338, Device: Nasal Cannula, Rate in liters per minute: 2 Lpm, Titrate to keep O2 Sat greater than or equal to: 90% polyethylene glycol (Glycolax) packet 17 g 17 g, oral, Daily, First dose on Sat09/10/22 at 1315 0929 (Given - Provider: Jenna Avalos RN) 0841 (Given - Provider: Karrie Keith, DENISE) 08 (Given - Provider: Shell Smith, DENISE) rosuvastatin (Crestor) tablet 40 mg 40 mg, oral, Daily, First dose on Sat09/10/22 at 1315 0929 (Given - Provider: Jenna Avalos RN) 0841 (Given - Provider: Karrie Keith, DENISE) 0822 (Given - Provider: Shell Smith, DENISE) sulfamethoxazole-trimeth oprim (Bactrim DS) 800-160 mg per tablet 160 mg 160 mg, oral, Every 12 hours, First dose on Sat09/14/22 at 0900, Suspected Indication (Select all that apply): Urinary Tract Infection, Type of Urinary Tract Infection: Uncomplicated, Type of Therapy: Definitive, Based on Culture 08 (Given - Provid er: Shell Smith RN) PRN Medication Order 09/12/2022 09/13/2022 09/14/2022 acetaminophen (Tylenol) 160 mg/5 mL liquid 650 mg 650 mg, oral, Every 4 hours PRN, fever, general discomfort or temperature greater than 100.4 degrees F. May give rectal suppository if npo. *Do not exceed 4 grams in 24 hours*, Starting on Sat09/11/22 at 0338 acetaminophen (Tylenol) suppository 650 mg 650 mg, rectal, Every 4 hours PRN, general discomfort or temperature greater than 100.4 degrees F. *Do not exceed 4 grams in 24 hours*, Starting on Sat09/11/22 at 0338, Give DE if unable to administer by mouth or feeding tube. acetaminophen (Tylenol) tablet 650 mg 650 mg, oral, Every 4 hours PRN, general discomfort or temperature greater than 100.4 degrees F. May give rectal suppository if npo. *Do not exceed 4 grams in 24 hours*, Starting on Sat09/11/22 at 0338 0901 (Given - Provider: Karrie Keith RN) dextrose 50% solution 25 mL(Linked Group 1) 25 mL, intravenous, As needed, low blood sugar, blood glucose less than 60 mg/dL and IV access is available, Starting on Sat09/11/22 at 0338, For the patient who cannot eat or who has altered mentation or is unconscious. Recheck glucose every 30 minutes until above 70. Notify physician. docusate sodium (Colace) capsule 100 mg 100 mg, oral, 2 times daily PRN, constipation prevention, Starting on Sat09/11/22 at 0338, Bowel Regimen - for prevention of constipation. glucagon injection 1 mg(Linked Group 1) 1 mg, intravenous, As needed, blood glucose less than 60 mg/dL, IV access is available, and dextrose 50% is unavailable, Starting on Sat09/11/22 at 0338, For the patient who cannot eat or who has altered mentation or is unconscious. Recheck glucose every 30 minutes until above 70. Notify physician. May repeat every 15 minutes as needed. If patient is not responding to treatment with glucagon, contact provider or pharmacy for other options. glucagon injection 1 mg(Linked Group 1) 1 mg, subcutaneous, As needed, blood glucose less than 60 mg/dL and no IV access, Starting on Sat09/11/22 at 0338, For the patient who cannot eat or who has altered mentation or is unconscious. After glucagon administration, start IV access. Notify physician. Re-assess glucose level every hour until two consecutive readings greater than 60 mg/dL. If persistently below 70 mg/dL after treatment, notify physician. glycerin (Adult) 2 g 2 g (1 suppository), rectal, Daily PRN, constipation, Starting on Sat09/10/22 at 1313, Insert 1 suppository rectally as needed for constipation. Administer if no bowel movement within 12 hours after Milk of Magnesia HYDROcodone-acetaminophen ([place]) 5-325 mg per tablet 1 tablet 1 tablet, oral, Every 6 hours PRN, severe pain, moderate pain, Starting on Sat09/10/22 at 1310 2346 (Given - Provider: Piper Cruz RN) lidocaine (LMX) 4 % cream 1 application 1 application, Topical, As needed, mild pain, Starting on Sat09/11/22 at 0338, Apply as needed prior to IV initiation. Apply 30 minutes prior to procedure, but not more than 1 hour prior to procedure. Max dose 2.5 grams of cream per application site. Max application time 4 hours. LORazepam (Ativan) tablet 1 mg 1 mg, oral, Every 8 hours PRN, anxiety, Starting on Sat09/10/22 at 1310 magnesium hydroxide (Milk of Magnesia) 400 mg/5 mL suspension 30 mL 30 mL, oral, Daily PRN, constipation, Starting on Sat09/11/22 at 0338, 1st line for treatment of constipation - give scheduled if no bowel movement in past 24 hours naloxone (Narcan) injection 0.4 mg 0.4 mg, intravenous, As needed, respiratory depression, Starting on Sat09/11/22 at 0338, 0.4 mg (1 mL) IVP over 30 seconds for respiratory rate less than 8 per minute: NOTIFY PHYSICIAN immediately. Repeat every 2 minutes as needed up to 10 mg total. nitroglycerin (Nitrostat) SL tablet 0.4 mg 0.4 mg, sublingual, Every 5 min PRN, chest pain, Starting on Sat09/11/22 at 0338, Give every 5 minutes as needed for chest pain to a maximum of 3 doses. Notify MD and obtain EKG if no relief after 3 doses or chest pain recurs. HOLD and notify MD if SBP less than 90 mmHg. Do not give if nitroglycerin infusion running concurrently. Do not give within 24 hours of sildenafil citrate (Viagra) or vardenafil (Levitra) use, or within 48 hours of tadalafil (Cialis) use. ondansetron (Zofran) injection 4 mg 4 mg, intravenous, Every 8 hours PRN, nausea, vomiting, Starting on Sat09/11/22 at 0338, 1st Line. If inadequate response within 60 minutes, proceed to next-line agent or contact provider if no further options ordered. ondansetron (Zofran) injection 4 mg 4 mg, intravenous, Every 8 hours PRN, nausea, vomiting, Starting on Sat09/10/22 at 2303, Give if unable to tolerate po polyvinyl alcohol (Liquifilm Tears) 1.4 % ophthalmic solution 1 drop 1 drop, Both Eyes, 2 times daily PRN, dry eyes, Starting on Sat09/10/22 at 1310 sodium chloride 0.9 % bolus 250 mL 250 mL, intravenous, at 25 mL/hr, Administer over 600 Minutes, Once as needed, blood administration, Starting on Sat09/11/22 at 0952, To administer with blood products per policy. sodium chloride 0.9 % infusion 250 mL 250 mL, intravenous, at 20 mL/hr, KVO, Line Care, Starting on Sat09/11/22 at 0338, If no maintenance IV fluid ordered, run a 250 mL bag of 0.9% NaCl with all IVPB. 0100 (New Bag - Provider: Rafi Fierro RN) 1159 (Due: Stopped) sodium chloride flush(floorstock) 3-15 mL 3-15 mL, intravenous, As needed, line care, each shift and as needed, Starting on Sat09/11/22 at 0338 Linked Groups Order Group 1: dextrose 50% solution 25 mLJump to med 25 mL, intravenous, As needed, low blood sugar, blood glucose less than 60 mg/dL and IV access is available, Starting on Sat09/11/22 at 0338
For the patient who cannot eat or who has altered mentation or is unconscious. Recheck glucose every 30 minutes until above 70. Notify physician.
Or glucagon injection 1 mgJump to med 1 mg, intravenous, As needed, blood glucose less than 60 mg/dL, IV access is available, and dextrose 50% is unavailable, Starting on Sat09/11/22 at 0338
For the patient who cannot eat or who has altered mentation or is unconscious. Recheck glucose every 30 minutes until above 70. Notify physician. May repeat every 15 minutes as needed. If patient is not responding to treatment with glucagon, contact provider or pharmacy for other options.
Or glucagon injection 1 mgJump to med 1 mg, subcutaneous, As needed, blood glucose less than 60 mg/dL and no IV access, Starting on Sat09/11/22 at 0338
For the patient who cannot eat or who has altered mentation or is unconscious. After glucagon administration, start IV access. Notify physician. Re-assess glucose level every hour until two consecutive readings greater than 60 mg/dL. If persistently below 70 mg/dL after treatment, notify physician.
(unrecognized sect ion and content) No Status Records FoundNo Status Records FoundNo Status Records FoundNo Status Records FoundNo Status Records FoundNo Status Records FoundNo Status Records FoundNo Status Records FoundNo Status Records FoundNo Status Records FoundNo Status Records FoundNo Status Records FoundNo Status Records FoundNo Status Records FoundNo Status Records FoundNo Status Records FoundNo Status Records FoundNo Status Records Found INFORMATION SOURCE (unrecogn ized section and content) DATE CREATED AUTHOR 12/30/2021 [facility] DATE CREATED AUTHOR AUTHOR'S ORGANIZ ATION 01/29/2022 [facility] DATE CREATED AUTHOR AUTHOR'S ORGANIZ ATION 04/28/2022 [facility] DATE CREATED AUTHOR AUTHOR'S ORGANIZ ATION 04/30/2022 [facility] DATE CREATED AUTHOR AUTHOR'S ORGANIZ ATION 05/27/2022 [facility] DATE CREATED AUTHOR AUTHOR'S ORGANIZ ATION 08/28/2022 [facility] DATE CREATED AUTHOR AUTHOR'S ORGANIZ ATION 09/14/2022 [facility] DATE CREATED AUTHOR AUTHOR'S ORGANIZ ATION 10/15/2022 [facility] DATE CREATED AUTHOR AUTHOR'S ORGANIZ ATION 11/17/2022 [facility] DATE CREATED AUTHOR AUTHOR'S ORGANIZ ATION 01/04/2023 [facility] DATE CREATED AUTHOR AUTHOR'S ORGANIZ ATION 01/04/2023 [facility] DATE CREATED AUTHOR AUTHOR'S ORGANIZ ATION 07/23/2023 [facility] DATE CREATED AUTHOR AUTHOR'S ORGANIZ ATION 08/12/2023 [facility] DATE CREATED AUTHOR AUTHOR'S ORGANIZ ATION 11/24/2023 [facility] DATE CREATED AUTHOR AUTHOR'S ORGANIZ ATION 11/27/2023 [facility] DATE CREATED AUTHOR AUTHOR'S ORGANIZ ATION 12/04/2023 [facility] DATE CREATED AUTHOR AUTHOR'S ORGANIZ ATION 12/14/[address] [facility] DATE CREATED AUTHOR AUTHOR'S ORGANIZ ATION 12/15/2023 [facility] Goals (unrecognized section and content) Goals may be documented in a n alternate sectionGoals may be documented in an alternate sectionGoals may be documented in an alternate sectionNo Information No data available for this section No data available for this section No data available for this section No data available for this section No data available for this section No data available for this section No data available for this section No data available for this section No data available for this section No data available for this section No data available for this section No data available for this section Source Comments (unrecognize d section and content) In the event this informatio n is protected by the Federal Confidentiality of Alcohol and Drug Abuse Patient Records regulations: The Federal rules restrict any use of the information to criminally investigate or prosecute any alcohol or drug abuse patient.[facility] the event this information is protected by the Federal Confidentiality of Alcohol and Drug Abuse Patient Records regulations: The Federal rules restrict any use of the information to criminally investigate or prosecute any alcohol or drug abuse patient.[facility] the event this information is protected by the Federal Confidentiality of Alcohol and Drug Abuse Patient Records regulations: The Federal rules restrict any use of the information to criminally investigate or prosecute any alcohol or drug abuse patient.[facility] Hospital[facility] the event this information is protected by the Federal Confidentiality of Alcohol and Drug Abuse Patient Records regulations: The Federal rules restrict any use of the information to criminally investigate or prosecute any alcohol or drug abuse patient.[facility] Hospital[facility] the event this information is protected by the Federal Confidentiality of Alcohol and Drug Abuse Patient Records regulations: The Federal rules restrict any use of the information to criminally investigate or prosecute any alcohol or drug abuse patient.[facility] Hospital[facility] the event this information is protected by the Federal Confidentiality of Alcohol and Drug Abuse Patient Records regulations: The Federal rules restrict any use of the information to criminally investigate or prosecute any alcohol or drug abuse patient.[facility] Hospital[facility] the event this information is protected by the Federal Confidentiality of Alcohol and Drug Abuse Patient Records regulations: The Federal rules restrict any use of the information to criminally investigate or prosecute any alcohol or drug abuse patient.[facility] HospitalIn the event this information is protected by the Federal Confidentiality of Alcohol and Drug Abuse Patient Records regulations: The Federal rules restrict any use of the information to criminally investigate or prosecute any alcohol or drug abuse patient.[facility] HospitalIn the event this information is protected by the Federal Confidentiality of Alcohol and Drug Abuse Patient Records regulations: The Federal rules restrict any use of the information to criminally investigate or prosecute any alcohol or drug abuse patient.[facility] HospitalIn the event this information is protected by the Federal Confidentiality of Alcohol and Drug Abuse Patient Records regulations: The Federal rules restrict any use of the information to criminally investigate or prosecute any alcohol or drug abuse patient.[facility] HospitalIn the event this information is protected by the Federal Confidentiality of Alcohol and Drug Abuse Patient Records regulations: The Federal rules restrict any use of the information to criminally investigate or prosecute any alcohol or drug abuse patient.[facility] HospitalIn the event this information is protected by the Federal Confidentiality of Alcohol and Drug Abuse Patient Records regulations: The Federal rules restrict any use of the information to criminally investigate or prosecute any alcohol or drug abuse patient.[facility] HospitalIn the event this information is protected by the Federal Confidentiality of Alcohol and Drug Abuse Patient Records regulations: The Federal rules restrict any use of the information to criminally investigate or prosecute any alcohol or drug abuse patient.[facility] HospitalIn the event this information is protected by the Federal Confidentiality of Alcohol and Drug Abuse Patient Records regulations: The Federal rules restrict any use of the information to criminally investigate or prosecute any alcohol or drug abuse patient.[facility] the event this information is protected by the Federal Confidentiality of Alcohol and Drug Abuse Patient Records regulations: The Federal rules restrict any use of the information to criminally investigate or prosecute any alcohol or drug abuse patient.[facility] the event this information is protected by the Federal Confidentiality of Alcohol and Drug Abuse Patient Records regulations: The Federal rules restrict any use of the information to criminally investigate or prosecute any alcohol or drug abuse patient.[facility] the event this information is protected by the Federal Confidentiality of Alcohol and Drug Abuse Patient Records regulations: The Federal rules restrict any use of the information to criminally investigate or prosecute any alcohol or drug abuse patient.[facility] HospitalIn the event this information is protected by the Federal Confidentiality of Alcohol and Drug Abuse Patient Records regulations: The Federal rules restrict any use of the information to criminally investigate or prosecute any alcohol or drug abuse patient.[facility] HospitalIn the event this information is protected by the Federal Confidentiality of Alcohol and Drug Abuse Patient Records regulations: The Federal rules restrict any use of the information to criminally investigate or prosecute any alcohol or drug abuse patient.[facility] HospitalIn the event this information is protected by the Federal Confidentiality of Alcohol and Drug Abuse Patient Records regulations: The Federal rules restrict any use of the information to criminally investigate or prosecute any alcohol or drug abuse patient.[facility] HospitalIn the event this information is protected by the Federal Confidentiality of Alcohol and Drug Abuse Patient Records regulations: The Federal rules restrict any use of the information to criminally investigate or prosecute any alcohol or drug abuse patient.[facility] HospitalIn the event this information is protected by the Federal Confidentiality of Alcohol and Drug Abuse Patient Records regulations: The Federal rules restrict any use of the information to criminally investigate or prosecute any alcohol or drug abuse patient.[facility] HospitalIn the event this information is protected by the Federal Confidentiality of Alcohol and Drug Abuse Patient Records regulations: The Federal rules restrict any use of the information to criminally investigate or prosecute any alcohol or drug abuse patient.[facility] HospitalIn the event this information is protected by the Federal Confidentiality of Alcohol and Drug Abuse Patient Records regulations: The Federal rules restrict any use of the information to criminally investigate or prosecute any alcohol or drug abuse patient.[facility] HospitalIn the event this information is protected by the Federal Confidentiality of Alcohol and Drug Abuse Patient Records regulations: The Federal rules restrict any use of the information to criminally investigate or prosecute any alcohol or drug abuse patient.[facility] FOR RECORDS PERTAINING TO PATIENTS WHO ARE OR HAVE BEEN ENROLLED IN A CHEMICAL DEPENDENCY/SUBSTANCEABUSE PROGRAM, SOME INFORMATION MAY BE OMITTED. This clinical summary was aggregated from multiple sources. Caution should be exercised in using it in the provision of clinical care. This summary normalizes information from multiple sources, and as a consequence, information in this document may materially change the coding, format and clinical context of patient data. In addition, data may be omitted in some cases. CLINICAL DECISIONS SHOULD BE BASED ON THE PRIMARY CLINICAL RECORDS. [facility] [employer] [facility]. provides no warranty or guarantee of the accuracy or completeness of information in this document.
[2023-12-19 07:26] LABS: Glucometer 124 mg/dL (74-106)
[2023-12-19] MEDS: LACTATED RINGER'S SOLUTION 1,000 ML 50 ML IV (07:43)
--- NOTE | 2023-12-19 07:54 | PC.NURSE ---
Patient EKG results shared with Dr. Vega at this time. Patient has a history of Right Bundle Branch Block.
[2023-12-19] MEDS: CEFAZOLIN SODIUM/DEXTROSE,ISO 1 GM/50 ML IV.SOLN IV (08:05)
[2023-12-19] MEDS: LIDOCAINE HCL 2% 400 MG/20 ML MDV 9 ML INJ (08:42)
[2023-12-19] MEDS: LACTATED RINGER'S SOLUTION 1,000 ML 125 ML IV (09:05)
--- NOTE | 2023-12-19 09:30 | P.URON_ITS ---
Urology Surgery Operative Note Operative Note Procedure Date: 12/19/23 Time Out Performed: yes Pre-op Diagnosis: Chronic urinary retention; massive urethral erosion Post-op Diagnosis: same as pre-op Procedures performed: 1. Cystoscopy. 2. 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 He was desirous for suprapubic tube placement to bypass the urethra. He has signed an informed consent after risks were explained. Detailed description of Procedure: The patient was brought to the operating room and placed on the operating room table in the supine position. SCDs were placed on the lower extremities and turned on and functioning during the entire case. Timeout was done by all parties in the room. We all agreed upon the patient's identification and the planned procedures for this patient. Genn. anesthesia was then administered. The patient was then repositioned into the modified dorsal lithotomy position. All pressure points were satisfactorily padded. Genitalia and abdomen were sterilely prepped and draped in usual fashion. I started by passing a flexible cystoscope per urethra and into the bladder. The bladder was distended. I then reviewed the dome of the bladder endoscopically and palpated suprapubically midway between the umbilicus and the pubic bone. This was exactly over the dome of the bladder. I then placed 2% plain lidocaine and created a skin wheal and then I passed a spinal needle through the wheal directly into the dome of the bladder. I then made a small incision with a 15 blade scalpel over the wheel. I bluntly dissected down to the bladder with a hemostat. The scope was removed. I then passed a Lowsley tractor into the bladder and up to the dome of the bladder. I then used a Bovie and cut down to the Lowsley. I was then able to pass the Lowsley jaws through the incision and out suprapubically. A 24 Nigerian three-way catheter was then placed in the jaws of the Lowsley and clamped. I then brought the Lowsley back into the bladder and unclamped the catheter and then put 30 cc of fluid in the balloon. The Lowsley was removed. I then repassed the cystoscope to evaluate placement. It was perfectly placed in the dome. There was no bleeding. The scope was then removed. I then plugged the irrigation port. I then hooked up the catheter to a leg bag. The incision was closed in 2 layers. The deep layer with 3-0 Vicryl in a running fashion. The skin was closed with 5-0 nylon in an interrupted fashion. The catheter was taped in a curvilinear fashion to the abdomen. A sterile dressing was then applied. The patient was then transferred to a [facility] bed and wheeled to PACU in stable condition. Urinary Catheter Management Urinary Catheter Management Urethral: Cath placed during this visit: no Suprapubic: Cath placed during this visit: no
--- NOTE | 2023-12-19 12:03 | PC.NURSE ---
Spoke with Meliza WALKER at the facility that patient is returning to in [place], [place] where he currently resides. Report was given and emphasized Dr. Lopes instructions on keeping catheter taped in a curvilinear fashion and to leave leg bag in place. I also reviewed with nurse that patient would need a follow up for in 1 week for suture removal and then in 1 month for initial catheter change. The nurse voiced no questions or concerns at this time.
== END 2023-12-19 12:14 | disposition home or self-care (01) ==
PROVIDERS: Visit Provider Urology
PROC: (CPT 51102; principal; 2023-12-19 08:00)
DX: R33.9 Retention of urine, unspecified (principal); D64.9 Anemia, unspecified; I25.10 Atherosclerotic heart disease of native coronary artery without angina pectoris; E11.22 Type 2 diabetes mellitus with diabetic chronic kidney disease; N18.9 Chronic kidney disease, unspecified; I12.9 Hypertensive chronic kidney disease with stage 1 through stage 4 chronic kidney disease, or unspecified chronic kidney disease; N36.8 Other specified disorders of urethra
CPT/HCPCS: 51102; 36415; 82948; 93005; J0690; J2371; J2405; J2704; J3010